=== PATIENT | female | born 1960 | race Caucasian/White ===

== ENCOUNTER 2017-12-20 13:32 | Emergency (ER) | payer MEDICARE, SELFPAY ==
[2017-12-20 13:33] VITALS: BP 162/87; PULSE 120; PULSE 121; RESP 18; RESP 19; TEMP 37.4; O2SAT 98; BMI 41.3
[2017-12-20 14:21] LABS: Absolute Lymphocyte Count 1.55 X10^3/ul (0.83-4.51); Absolute Neutrophil Count 13.1 X10^3/uL (2.0-7.7); Basophil# 0.01 X10^3/uL; Basophil% 0.1 % (0-1); Eosinophil# 0.13 X10^3/uL; Eosinophils% 0.8 % (0-5); Hematocrit 47.2 % (37-47); Hemoglobin 15.3 g/dl (12.0-15.0); Lymphocyte # 1.55 X10^3/ul (4.0); Lymphocyte % 10.1 % (19-41); Mean Corp Hgb Conc 32.4 g/gl (32-36); Mean Corpuscular Hgb 29.1 pg (27.0-32.0); Mean Corpuscular Volume 89.7 fL (81-99); Mean Platelet Vol. 10.3 fl (6.2-12.0); Monocyte# 0.65 X10^3/uL; Monocyte% 4.2 % (0-10); Neutrophil # 13.06 X10^3/uL (2.7-7.7); Neutrophil % 84.7 % (47-70); Platelet Count 196 K/mm3 (150-450); RBC Distribution Width CV 13.3 % (11.6-14.6); RBC Distribution Width SD 43.4 fl (35.1-43.9); Red Blood Count 5.26 M/mm3 (4.2-5.4); White Blood Count 15.4 K/mm3 (4.4-11.0)
[2017-12-20 14:22] LABS: POSITIVE COUNT NO; POSITIVE DIFFERENTIAL NO; POSITIVE MORPHOLOGY NO
[2017-12-20 14:40] LABS: ALB/GLOB Ratio 0.8 RATIO (0.9-2.4); AST(SGOT) 60 U/L (15-37); Alanine Aminotransfer ALT/SGPT 61 U/L (13-56); Albumin, Serum 3.7 g/dL (3.2-5.0); Alkaline Phosphatase 118 U/L (45-117); Anion Gap 8 (5-15); BUN 20 mg/dL (7-18); BUN/Creat Ratio 17.9 RATIO (10-20); Calcium,Total 8.8 mg/dL (8.5-10.1); Chloride 101 mmol/L (98-107); Creatinine, Serum 1.12 mg/dL (0.55-1.02); EST Glomerular Filtration Rate 53 mL/min (>60); Est Glom Filt Rate - Afr Amer 64 mL/min (>60); Estimated Creatinine Clearance 50.63 ml/min; Globulin 4.7 g/dL (2.2-4.2); Glucose 147 mg/dL (74-106); Lipase 90 U/L (73-393); Protein, Total 8.4 g/dL (6.4-8.2); Sodium Level 135 mmol/L (136-145)
[2017-12-20] MEDS: Ondansetron 4 MG/2 ML Vial IV (14:49)
[2017-12-20] MEDS: 0.9% Normal Saline 1,000 ML 1000 ML IV (14:49)
--- NOTE | 2017-12-20 15:05 | CT_ITS ---
STUDY: CT ABDOMEN AND PELVIS WITH CONTRAST REASON FOR EXAM: Female, 57 years old. Vomiting and diarrhea. Right flank pain. RADIATION DOSAGE (If Supplied By Facility): CTDIvol = ( 16.67 ) mGy, DLP = ( 1228.09 ) mGycm TECHNIQUE: Transaxial images were obtained from the dome of the diaphragm to the symphysis pubis without oral contrast. 100 ml of Isovue 300 contrast was administered. Sagittal and coronal images were reconstructed. Individualized dose optimization techniques were used for this CT. COMPARISON: December 17, 2014 FINDINGS: The visualized lung bases are unremarkable. The visualized portions of the heart are within normal limits. Normal liver. There are surgical clips in the gallbladder fossa consistent with a prior cholecystectomy. Normal spleen. Normal pancreas. Normal bilateral adrenal glands. 13 mm simple right renal cortical cyst. Normal left kidney. Normal visualized stomach. Normal small intestine. Normal colon. There is non-visualization of the appendix. Multiple prominent mesenteric lymph nodes which are nonspecific. Normal abdominal aorta. Normal inferior vena cava. Normal retroperitoneum. Normal urinary bladder. Uterus normal. There is a small umbilical hernia containing fat. Normal osseous structures. CT/Abdomen/Pelvis W IV Cont ONLY IMPRESSION: Possible mesenteric lymphadenitis. Appendix not visualized. No secondary signs identified. Electronically Signed: Doug Mott MD at 16:33 EDT , Service support ,
[2017-12-20] MEDS: Loperamide 2 MG Capsule 4 MG PO (15:30)
[2017-12-20 15:37] VITALS: BP 129/77; PULSE 109; RESP 16; O2SAT 95
[2017-12-20 15:42] LABS: Bacteria 0 SEEN /hpf (None Seen); Mucous, Urine 0 SEEN /hpf (<or=2+); Red Blood Cells-Urine 0 SEEN /hpf (0-5); Squamous Epithelial Cells - UA 0 SEEN /hpf (5-10)
[2017-12-20 15:47] LABS: Color, Urine Yellow (Yellow); Glucose, Dipstick Normal (Normal); Ketone-Dipstick Negative (Negative); Leukocyte Esterase-Dipstick Negative /ul (Negative); Nitrite-Dipstick Negative (Negative); Occult Blood-Urine Negative /ul (Negative); Protein-Dipstick Negative (Negative); Urine Bilirubin Dipstick Negative (Negative); Urine Clarity Clear (Clear); Urine Urobilinogen Normal (Normal)
--- NOTE | 2017-12-20 15:55 | ED.DCSUM_ITS ---
- ER Visit Summary Date of Service: 12/20/17 Chief Complaint: Nausea, vomiting, diarrhea History of Present Illness: The patient is a 57 F with RA, fibromyalgia, and IBS. She presents with nausea, vomiting, and diarrhea. Her symptoms started yesterday, when she was not feeling well, and then the nausea, vomiting, and diarrhea started today. He denies any sick contacts, travel, or recent antibiotics. She had a fever at home. Physical Examination: Blood pressure 162/87 and heart rate 121. Otherwise vitals unremarkable. Afebrile. She is alert and oriented. No acute distress, sitting comfortably. Skin appears normal without pallor or jaundice. Heart tachycardic but regular. Lungs clear. Abdomen soft, nontender, nondistended, normal bowel sounds. Back is nontender. Test Results: White count 15.4 and hemoglobin 15.3. BUN 20 and creatinine 1.12. Alk phos 118, ALT 61 and AST 60. Lipase normal. Urinalysis pending. Emergency Department Course and Treatment: Symptoms sound like a gastroenteritis. Her exam is unremarkable. She was treated with Zofran, fluids , and Imodium. Her labs came back showing a leukocytosis. She had no improvement after treatment. She was subsequently given a GI cocktail and a CT of her abdomen was performed. The oncoming physician will check the CT results. If the results are unremarkable and the patient is feeling better, she may be discharged with Zofran and Imodium. She should follow-up with her doctor for recheck of her laboratory studies including her liver and kidney function. If there are any issues, the oncoming physician will address. Treatment Plan: As above Disposition: Pending further evaluation Impression: 1. Nausea, vomiting, and diarrhea This note was generated with [employer] software. It may contain incorrect words, spelling, and punctuation that were not noted in review of the chart prior to signing ED Disposition - Plan for ED Patient: Chief Complaint: Nausea/Vomiting/Diarrhea Referrals: Uziel Alford MD [Primary Care Provider] -
[2017-12-20 15:59] LABS: White Blood Cells 0-5 SEEN /hpf (0-5)
--- NOTE | 2017-12-20 16:18 | ED.DEP ---
ED Disposition - Plan for ED Patient: Chief Complaint: Nausea/Vomiting/Diarrhea Instructions: ED Diet Vomiting Diarrhea Prescriptions: Loperamide [Imodium] 2 mg PO Q4H PRN PRN #20 cap PRN Reason: Diarrhea Ondansetron [Zofran Odt] 4 mg PO Q8H PRN PRN #10 tab PRN Reason: Nausea Referrals: Uziel Alford MD [Primary Care Provider] -
[2017-12-20] MEDS: Acetaminophen 325 MG Tablet 650 MG PO (17:03)
== END 2017-12-20 17:10 | disposition home or self-care (01) ==
LOC: ED 14:23
PROVIDERS: Emergency Provider Emergency Medicine; Family Provider Family Medicine; PCP Family Medicine
DX: R11.2 Nausea with vomiting, unspecified (principal); M79.7 Fibromyalgia; M06.9 Rheumatoid arthritis, unspecified; K58.0 Irritable bowel syndrome with diarrhea; M54.9 Dorsalgia, unspecified
CPT/HCPCS: 74177; 80053; 81001; 83690; 85025; 96361; 96374; 99284; J7030; Q9967; A4216; J2405

== ENCOUNTER 2018-02-22 14:00 | Outpatient (RCR) | payer MEDICARE, SELFPAY ==
--- NOTE | 2018-01-30 14:06 | HP.PTEVAL ---
Patient's Visit Information ZACKERY NUNEZ is a 57 year old F referred to Physical Therapy by Latia Carmona with a diagnosis of BACK AND LEG PAIN. Date of Evaluation: 01/30/18 Physical Therapist: Shagufta Bhandari - Visit Plan Frequency: 2-3x /Week Duration: 4-6 Weeks Plan: AQUATIC THERAPY FOR PAIN RELEIF, POSTURE CORRECTION/STRENGTHENING, INSTRUCTION IN APPROPRIATE BODY MECHANICS AND ACTIVITY MODIFICATIONS. DLS STARTING WITH A NEUTRAL SPINE PROGRESSING ROM TOLERATED. STEFANY LE ROM, STRETCHING AND STRENGTHENING. HEP INSTRUCTION. - Subjective Subjective: Work/Leisure: UNEMPLOYEED DUE TO DISABILITY. Disability: SINCE APPROX 2014 FOR RA AND FIBROMYALGIA. Present symptoms: PAIN IN THE LOW BACK, HIPS, THIGHS, LEGS AND FEET. SOME TINGLING IN FEET AND LEGS BUT MOSTLY PAIN. Present since: [facility] ABOUT 2008. Pain Scale: WORST - 8/10, LEAST - 5/10. Currently: /10. Commenced as a result of: RA AND FIBROMYALGIA. Symptoms at onset: LOW BACK. Worse: RUNNING THE SWEEPER, LOADING THE CRUSHER SCREEN REPAIRER, TRYING TO TAKE A SHOWER, STAIRS ARE THE WORST, TRYING TO WALK IN THE BACK YARD. Better: SOMETIMES SITTING, SOMETIMES LYING DOWN WITH HEAT OR ICE. SHOTS FROM DR. CARMONA. Disturbed sleep: NO. Previous history/Previous treatment: PAIN MGMT SHOTS, RADIOFREQUENCY ABLATION, PERCOCET, FLEXERIL, SLEEPING PILL. NO CHIROPRACTOR. NO SPINE SURGERY - NOT RECOMMENDED. PT HERE IN THE POOL WITH [facility] ABOUT YEAR AGO - HELPED BUT HAS NOT BEEN ABLE TO FOLLOW THROUGH BECAUSE SHE GETS SICK A LOT AND WHEN SHE DID COME ON HER OWN THE POOL WAS TOO CROWDED HERE. Coughing/sneezing/straining: POSTIVE. Gait: PATIENT REPORTS THAT SOMETIMES WHEN SHE IS TRYING TO WALK SHE FEELS LIKE THERE IS SOMETHING HOLDING HER BACK AND SHE HAS TO PUSH REALLY HARD TO MOVE HER LEGS. USES CANE OR WALKER NEEDED. Difficulty initiating urinatin: SOMETIMES - STATES DR. CARMONA IS AWARE. Accidents: NO. Unexplained weight loss: NO. Imaging: NONE RECENT. LOW BACK MRI AUGUST 2016 - [facility] - SEE [facility] EMR. PMH/Recent major surgery: RA AND FIBROMYALGIA. RIGHT TKR 2014. OTHER: PATIENT REPORTS SHE SAW DR. TREVIÑO BEFORE HE LEFT AND HE IS THE ONE THAT ORDERED AQUATIC THERAPY ABOUT A YEAR OR SO AGO. SHE THEN FOLLOWED UP WITH DR. MARQUEZ AND SHE DID NOT RECOMMEND SURGERY BASED ON THERE BEING TOO MUCH ARTHRITIS AND HAVING RA BECAUSE IT WOULD MAKE IT WORSE - PER PATIENT REPORT. SHE REPORTS HER AND HER HAVE TALKED A LOT ABOUT GETTING ANOTHER OPINION ON SURGERY BECAUSE HER PAIN IS UNBEARABLE AT TIMES. SHE REPORTS DR. CARMONA ORDERED AQUATIC THERAPY AGAIN AND SHE WILL FOLLOW UP WITH HIM FEB 13. SHE REPORTS SHE CANCELLED PT LAST VISIT DUE TO WANTING TO DISCUSS FINANCES (HIGH CO-PA[employer]) WITH [employer]. NOW HAS DECIDED TO TRY A FEW VISITS BECAUSE SHE HAS GOTTEN WORSE SINCE HERE LAST. OTHER: PATIENT REPORTS HER HANDS AND HER FEET SWELL A LOT AND HAVE FOR A LONG TIME. SHE HAS COMPRESSION GLOVES AND STOCKINGS. - Objective Sitting/Standing Posture: POOR. Lordosis: NORMAL TO DECREASED. Lateral shift: NO. Relevant shift: N/A. Active Correction of posture: WORSE. Other Observations: INDEP GAIT INTO PT WITH A SLOW WADDLE TYPE GAIT PATTERN THAT APPEARS ANTALGIC. NO USING ANY ASSISTIVE DEVICES. UNABLE TO TRANSFER SIT TO STAND WITHOUT UE ASSIST AND IT IS PAINFUL TO ATTEMPT. NO LOB WITH GAIT. NO HISTORY OF FALLS. VERY SHORT STEFANY STRIDE LENGTH. DECREASED PROPER POSTURE AND REFRIGERATION SYSTEMS INSTALLER AWARENESS. Motor deficit: STEFANY HIPS 3+/5, KNEE EXT 4-/5, KNEE FLEX 4-/5, ANKLES 5/5. Sensory deficit: STEFANY LE LIGHT TOUCH SENSATION APPEARS TO BE INTACT AND SYMMETRICAL. ROM deficit: TIGHT STEFANY HIP FLEXORS, HS'S AND GASTROC SOLEUS COMPLEX'S. Dural Signs: POSITIVE STEFANY LE'S. Lumbar mvmt loss: flex - ROSE IN STANDING. MOD IN SITTING. ext - ROSE. R SG - MOD TO ROSE. L SG - MOD TO ROSE. PAIN WITH LUMBAR ROM TESTING ALL PLANES. Core strength: POOR. Palpation: TENDERNESS WITH PALPATION OF STEFANY LOW BACK AND HIP MUSCULATURE BUT NO ACUTE SPINE TENDERNESS. - Goals Goal 1:: DECREASE C/O BACK AND STEFANY LE SX'S. Goal Time Frame: 4-6 Weeks Goal 2:: IMPROVE PERSONAL CARE, LIFTING, WALKING, SITTING, STANDING, SOCIAL LIFE, TRAVEL AND HOMEMAKING FUNCTION. Goal Time Frame: 4-6 Weeks Goal 3:: INSTRUCT IN PROPHYLAXIS Goal Time Frame: 4-6 Weeks - Rehabilitation Potential Rehabilitation Potential: Fair - Anticipated Interventions Patient/Client Instruction: Educate patient on: Condition, Plan of Care, Risk Factors, Benefits of Fitness Program For the Purpose of:: To improve self management Therapeutic Exercise to Include: Strength training, Body mechanics, Postural training, Flexibilty training, Gait and locomotor training, In an aquatic setting, Active ROM, Dynamic Lumbar Stabilization For the Purpose of:: To decrease pain, To increase ROM, To improve muscle performance and motor function, To increase tolerance to activity/condition/position, To improve ability of physical actions for home/community/work/leisure, To improve gait and locomotor functions Thank you for the opportunity to evaluate your patient. For Medicare and Medicare HMO plans, please review the plan of care and approve it. It will need to be FAXED BACK to us at [phone] for Medicare purposes. Please let me know if there are questions or concerns regarding this plan of care. Physician Signature: Date:
--- NOTE | 2018-03-22 12:59 | HP.PTDCNRP_ITS ---
HP - Discharge Summary (1) - Patient Information ZACKERY NUNEZ was seen in my office for initial evaluation on 01/30/18. The following Plan of Care was established for this patient: Initial Frequency: 2-3x /Week Initial Duration: 4-6 Weeks - Anticipated Interventions Patient/Client Instruction: Educate patient on: Condition, Plan of Care, Risk Factors, Benefits of Fitness Program For the Purpose of:: To improve self management Therapeutic Exercise to Include: Strength training, Body mechanics, Postural training, Flexibilty training, Gait and locomotor training, In an aquatic setti ng, Active ROM, Dynamic Lumbar Stabilization For the Purpose of:: To decrease pain, To increase ROM, To improve muscle performance and motor function, To increase tolerance to activity/condition/position, To improve ability of physical actions for home/community/work/leisure, To improve gait and locomotor functions This patient was last seen in our office 02/22/18. Pertinent comments regarding their Physical therapy will appear below: This patient has not returned to Physical Therapy and is appropriate to return to MD for further follow-up as needed. At this point I will be discontinuing this patient from physical therapy. I would be happy to see this patient again in the future if found appropriate by the physician. Thank you! Shagufta Bhandari
== END 2018-02-22 19:00 | disposition home or self-care (01) ==
LOC: PT 14:00
PROVIDERS: Family Provider Family Medicine; PCP Family Medicine; Visit Provider Anesthesiology Pain Medicine
DX: M54.9 Dorsalgia, unspecified (principal); M79.606 Pain in leg, unspecified
CPT/HCPCS: 97113; 97162; 97530

== ENCOUNTER → 2018-05-28 11:24 | Outpatient (CLI) | payer MEDICARE, SELFPAY ==
[2018-05-28 17:33] LABS: Absolute Lymphocyte Count 3.38 X10^3/ul (0.83-4.51); Absolute Neutrophil Count 7.3 X10^3/uL (2.0-7.7); Basophil# 0.04 X10^3/uL; Basophil% 0.3 % (0-1); Eosinophil# 0.32 X10^3/uL; Eosinophils% 2.7 % (0-5); Hemoglobin 13.8 g/dl (12.0-15.0); Lymphocyte # 3.38 X10^3/ul (4.0); Lymphocyte % 28.8 % (19-41); Mean Corp Hgb Conc 31.4 g/gl (32-36); Mean Corpuscular Hgb 28.6 pg (27.0-32.0); Mean Corpuscular Volume 91.3 fL (81-99); Mean Platelet Vol. 11.5 fl (6.2-12.0); Monocyte# 0.71 X10^3/uL; Neutrophil # 7.26 X10^3/uL (2.7-7.7); Neutrophil % 61.9 % (47-70); POSITIVE COUNT NO; POSITIVE DIFFERENTIAL NO; POSITIVE MORPHOLOGY NO; Platelet Count 249 K/mm3 (150-450); RBC Distribution Width CV 13.9 % (11.6-14.6); RBC Distribution Width SD 45.8 fl (35.1-43.9); Red Blood Count 4.82 M/mm3 (4.2-5.4); White Blood Count 11.8 K/mm3 (4.4-11.0)
[2018-05-28 17:40] LABS: Erythrocyte Sedimentation Rate 41 mm/hr (0-30)
[2018-05-28 17:50] LABS: Vitamin D,25 Hydroxy 26.9 ng/mL (29.95-100.01)
[2018-05-28 18:01] LABS: ALB/GLOB Ratio 0.8 RATIO (0.9-2.4); AST(SGOT) 24 U/L (15-37); Alanine Aminotransfer ALT/SGPT 33 U/L (13-56); Albumin, Serum 3.5 g/dL (3.2-5.0); Alkaline Phosphatase 126 U/L (45-117); Anion Gap 13 (5-15); BUN 13 mg/dL (7-18); BUN/Creat Ratio 13.6 RATIO (10-20); Calcium,Total 8.9 mg/dL (8.5-10.1); Chloride 102 mmol/L (98-107); Creatinine, Serum 0.95 mg/dL (0.55-1.02); EST Glomerular Filtration Rate 64 mL/min (>60); Est Glom Filt Rate - Afr Amer 77 mL/min (>60); Globulin 4.4 g/dL (2.2-4.2); Glucose 91 mg/dL (74-106); Protein, Total 7.9 g/dL (6.4-8.2); Rheumatoid Factor < 10.0 IU/mL (<15); Sodium Level 139 mmol/L (136-145); T4 Free Direct 1.07 ng/dL (0.76-1.46); Thyroid Stim Hormone (TSH) 1.86 uIU/mL (0.358-3.74)
[2018-05-30 14:20] LABS: ANTINUCLEAR ANTIBODIES DIRECT Negative (Negative)
[2018-06-01 11:46] LABS: CCP IgG Antibodies 6 units (0-19)
--- OUTSIDE RECORDS SUMMARY | 2018-07-21 17:35 | XMS RPT_ITS ---
:1960 Author Organization OHIP Care Team Providers Name Role Phone Latia Carmona Attending Unavailable Uziel Alford Primary Care Unavailable Uziel Alford Primary Care Unavailable Carlo Quigley Attending Unavailable Latia Carmona Attending Unavailable Latia Carmona Referring Unavailable Uziel Alford Primary Care Unavailable Uziel Alford Attending Unavailable Uziel Alford Primary Care Unavailable PROBLEMS PROBLEMS DATE TYPE CONDITION / CODE ATTENDING STATUS SOURCE 05/28/2018 Unknown M06.9 - Rheumatoid Uziel Alford Active [facility] arthritis, [facility] unspecified / Hospital M06.9(ICD-10) Repository 05/28/2018 Unknown M79.7 - Uziel Alford Active [facility] Fibromyalgia / Community M79.7(ICD-10) Hospital Repository 05/28/2018 Unknown M25.40 - Effusion, Uziel Alford Active [facility] unspecified joint / Community M25.40(ICD-10) Hospital Repository 03/22/2018 Unknown M54.9 - Dorsalgia, Basali, Ayman Active [place] unspecified / Community M54.9(ICD-10) Hospital Repository 06/20/2017 Unknown F11.20 - Opioid Basali, Ayman Active [facility] dependence, Community uncomplicated / Hospital F11.20(ICD-10) Repository PROCEDURES PROCEDURES No Procedure Records FoundRESULTS RESULTS CBC W/DIFF, AUTOMATED Collected: 05/28/2018 Status: F Source: [place] 11:26 AM [facility] REPOSITORY TYPE CODE TESTS RESULT OUT OF RANGE REFERENCE UNITS LAB L100.1000 4.4-11.0 K/mm3 High WBC 11.8 LAB L100.1200 4.2-5.4 M/mm3 Normal RBC 4.82 LAB L100.1300 12.0-15.0 g/dl Normal HGB 13.8 LAB L100.1400 37-47 % Normal HCT 44.0 LAB L100.1500 81-99 fL Normal MCV 91.3 LAB L100.1600 27.0-32.0 pg Normal MCH 28.6 LAB L100.1700 32-36 g/gl Low MCHC 31.4 LAB L100.1810 11.6-14.6 % Normal RDW CV 13.9 LAB L100.1820 35.1-43.9 fl High RDW SD 45.8 LAB L100.1900 150-450 K/mm3 Normal PLT 249 LAB L100.2000 6.2-12.0 fl Normal MPV 11.5 LAB L100.2100 47-70 % Normal NEUT% 61.9 LAB L100.2200 19-41 % Normal LY% 28.8 LAB L100.2300 0-10 % Normal MONO% 6.0 LAB L100.2400 0-5 % Normal EO% 2.7 LAB L100.2500 0-1 % Normal BASO% 0.3 LAB L100.2550 0.0-0.9 % Normal IM GRAN % 0.300 Result Comment: IG% - Immature Granulocytes (promyelocytes, myelocytes and metamyelocytes) > 1% indicates that a LEFT SHIFT is Present. LAB L100.2620 2.0-7.7 X10 3/uL Normal Absolute Neut 7.3 LAB L100.2720 0.83-4.51 X10 3/ul Normal Absolute Lymph 3.38 Performed By: #### L100.0100, L101.9900 #### [facility] [address] [place], [address] ERYTHROCYTE SED RATE Collected: 05/28/2018 Status: F Source: [place] 11:26 AM [facility] REPOSITORY TYPE CODE TESTS RESULT OUT OF RANGE REFERENCE UNITS LAB L102.0000 0-30 mm/hr High SED RATE 41 Performed By: #### L100.0100, L101.9900 #### [facility] [address] [place], [address] VITAMIN D,25 HYDROXY Collected: 05/28/2018 Status: F Source: [place] 11:26 AM [facility] REPOSITORY TYPE CODE TESTS RESULT OUT OF REFERENCE UNITS RANGE LAB L506.1000 29.95-100.01 ng/mL Low Vitamin D 26.9 25-OH Result Comment: Vitamin D 25(OH) Status Range Deficiency <20 ng/mL (50nmol/L) Insuffciency 20 - 30 ng/mL (50 - 75 nmol/L) Sufficiency 30 - 100 ng/mL (75 - 250 nmol/L) Toxicity >100 ng/mL (>250 nmol/L) Performed By: #### L506.1000 #### [facility] [address] [facility] [place], [address] COMPREHENSIVE METABOLIC Collected: 05/28/2018 Status: F Source: [facility] 11:26 AM [facility] REPOSITORY TYPE CODE TESTS RESULT OUT OF RANGE REFERENCE UNITS LAB L501.0100 74-106 mg/dL Normal GLU 91 Result Comment: Please note revised GLUCOSE reference range effective 2017. LAB L501.1000 7-18 mg/dL Normal BUN 13 LAB L501.1100 0.55-1.02 mg/dL Normal CREAT,SERUM 0.95 Result Comment: The validity of the calculated GFR AND GFRAA in patients over 70 years has not been determined. Clinical correlation is essential. LAB L501.1110 >60 mL/min Normal EST GFR 64 Result Comment: Non- GFR Calc LAB L501.1115 >60 mL/min Normal EST GFR - AA 77 Result Comment: GFR Calc LAB L501.1300 10-20 RATIO Normal BUN/CRE 13.6 LAB L501.1500 6.4-8.2 g/dL T Normal PROT 7.9 LAB L501.1800 3.2-5.0 g/dL Normal ALB 3.5 LAB L501.1950 2.2-4.2 g/dL High GLOB 4.4 LAB L501.2000 0.9-2.4 RATIO Low A/G 0.8 LAB L501.2200 8.5-10.1 mg/dL CA Normal 8.9 LAB L501.4100 15-37 U/L Normal AST 24 LAB L501.4305 45-117 U/L High ALK P 126 LAB L501.4405 13-56 U/L Normal ALT 33 LAB L501.4600 0.20-1.00 mg/dL T Normal BILI 0.40 LAB L501.5300 136-145 mmol/L NA Normal 139 LAB L501.5600 3.5-5.1 mmol/L K Normal 4.0 LAB L501.5900 98-107 mmol/L CL Normal 102 LAB L501.6100 21.0-32.0 mmol/L Normal CO2 24.0 LAB L501.6200 5-15 Normal GAP 13 Performed By: #### L500.4050, L501.6710, L501.9520, L505.7010, L506.0400 #### [facility] [address] [facility]. [place], [place], [id number] CRP Collected: 05/28/2018 Status: F Source: [place] 11:26 AM [facility] REPOSITORY TYPE CODE TESTS RESULT OUT OF RANGE REFERENCE UNITS LAB L501.6710 0.0-3.0 mg/L High 27.20 C-REACTIVE PROT Result Comment: C-Reactive Protein (CRP) provides useful information for the diagnosis, therapy and monitoring of inflammatory processes and associated diseases. For the evaluation of Relative Risk for Cardiovascular Disease, a High Sensitivity CRP (HSCRP) should be ordered. Performed By: #### L500.4050, L501.6710, L501.9520, L505.7010, L506.0400 #### [facility] [address] [facility]. [place], [place], [id number] THYROID STIM HORMONE Collected: 05/28/2018 Status: F Source: [place] ([facility]) 11:26 AM [facility] REPOSITORY TYPE CODE TESTS RESULT OUT OF RANGE REFERENCE UNITS LAB L501.9520 0.358-3.74 uIU/mL Normal TSH 1.86 Performed By: #### L500.4050, L501.6710, L501.9520, L505.7010, L506.0400 #### [facility] [address] [place], [address] RHEUMATOID FACTOR Collected: 05/28/2018 Status: F Source: [place] 11:26 AM [facility] REPOSITORY TYPE CODE TESTS RESULT OUT OF RANGE REFERENCE UNITS LAB L505.7010 <15 IU/mL Normal RHEUMATOID FAC < 10.0 Performed By: #### L500.4050, L501.6710, L501.9520, L505.7010, L506.0400 #### [facility] [address] [place], [address] T4 FREE DIRECT Collected: 05/28/2018 Status: F Source: [place] 11:26 AM [facility] REPOSITORY TYPE CODE TESTS RESULT OUT OF RANGE REFERENCE UNITS LAB L506.0400 0.76-1.46 ng/dL Normal T4 FREE 1.07 DIRECT Performed By: #### L500.4050, L501.6710, L501.9520, L505.7010, L506.0400 #### [facility] [address] [place], [place], [address] LUCIO W/ REFLEX MULT Collected: 05/28/2018 Status: F [facility]: [facility] 11:26 AM [facility] REPOSITORY TYPE CODE TESTS RESULT OUT OF RANGE REFERENCE UNITS LAB L3100.5475 Negative Normal Negative LUCIO-DIRECT Result Comment: Performed at: [facility] [address] [id number] Staff Development Nurse: Mick Sue PhD, Phone: [phone] Performed By: #### L3100.5450 #### [facility] (refer to report for specific site) refer to report for address and phone number CCP IGG ANTIBODIES Collected: 05/28/2018 Status: F Source: [place] 11:26 AM [facility] REPOSITORY TYPE CODE TESTS RESULT OUT OF RANGE REFERENCE UNITS LAB L4600.0100 0-19 units Normal ANTI-CCP 6 [id number] Result Comment: Negative <20 Weak positive 20 - 39 Moderate positive 40 - 59 Strong positive >59 Performed at: [facility] [address] [id number] Staff Development Nurse: Mika Viveros MD, Phone: [phone] Performed By: #### L4600.0100 #### [facility] (refer to report for specific site) refer to report for address and phone number INITAL EVALUATION (1) Observed: 01/30/2018 Status: F Source: [facility] - PT 2:13 PM [facility] REPOSITORY [facility] Physical Therapy [facility] [address] [place] [address] Fax REHABILITATION SERVICES INITIAL EVALUATION MR#: [id number] Acct: [id number] Name: ZACKERY NUNEZ Rep #: [id number] : 1960 57 From: Shagufta Bhandari PT, Cert. MDT Referring Dr.: Latia Carmona MD Status: REG RCR Insurance: [facility] MEDICARE SELF PAY INSURANCE Patient's Visit Information ZACKERY NUNEZ is a 57 year old F referred to Physical Therapy by Latia Carmona with a diagnosis of BACK AND LEG PAIN. Date of Evaluation: 01/30/18 Physical Therapist: Shagufta Bhandari - Visit Plan Frequency: 2-3x /Week Duration: 4-6 Weeks Plan: AQUATIC THERAPY FOR PAIN RELEIF, POSTURE CORRECTION/STRENGTHENING, INSTRUCTION IN APPROPRIATE BODY MECHANICS AND ACTIVITY MODIFICATIONS. DLS STARTING WITH A NEUTRAL SPINE PROGRESSING ROM TOLERATED. STEFANY LE ROM, STRETCHING AND STRENGTHENING. HEP INSTRUCTION. - Subjective Subjective: Work/Leisure: UNEMPLOYEED DUE TO DISABILITY. Disability: SINCE APPROX 2014 FOR RA AND FIBROMYALGIA. Present symptoms: PAIN IN THE LOW BACK, HIPS, THIGHS, LEGS AND FEET. SOME TINGLING IN FEET AND LEGS BUT MOSTLY PAIN. Present since: [facility] ABOUT 2008. Pain Scale: WORST - 8/10, LEAST - 5/10. Currently: 5/10. Commenced as a result of: RA AND FIBROMYALGIA. Symptoms at onset: LOW BACK. 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 Better: SOMETIMES SITTING, SOMETIMES LYING DOWN WITH HEAT OR ICE. SHOTS FROM DR. CARMONA. Disturbed sleep: NO. Previous history/Previous treatment: PAIN MGMT SHOTS, RADIOFREQUENCY ABLATION, PERCOCET, FLEXERIL, SLEEPING PILL. NO CHIROPRACTOR. NO SPINE SURGERY - NOT RECOMMENDED. PT HERE IN THE POOL WITH [facility] ABOUT YEAR AGO - HELPED BUT HAS NOT BEEN ABLE TO FOLLOW THROUGH BECAUSE SHE GETS SICK A LOT AND WHEN SHE DID COME ON HER OWN THE POOL WAS TOO CROWDED HERE. Coughing/sneezing/straining: POSTIVE. Gait: PATIENT REPORTS THAT SOMETIMES WHEN SHE IS TRYING TO WALK SHE FEELS LIKE THERE IS SOMETHING HOLDING HER BACK AND SHE HAS TO PUSH REALLY HARD TO MOVE HER LEGS. USES CANE OR WALKER NEEDED. Difficulty initiating urinatin: SOMETIMES - STATES DR. CARMONA IS AWARE. Accidents: NO. Unexplained weight loss: NO. Imaging: NONE RECENT. LOW BACK MRI AUGUST 2016 - [facility] - SEE [facility] EMR. PMH/Recent major surgery: RA AND FIBROMYALGIA. RIGHT TKR 2014. OTHER: PATIENT REPORTS SHE SAW DR. TREVIÑO BEFORE HE LEFT AND HE IS THE ONE THAT ORDERED AQUATIC THERAPY ABOUT A YEAR OR SO AGO. SHE THEN FOLLOWED UP WITH DR. MARQUEZ AND SHE DID NOT RECOMMEND SURGERY BASED ON THERE BEING TOO MUCH ARTHRITIS AND HAVING RA BECAUSE IT WOULD MAKE IT WORSE - PER PATIENT REPORT. SHE REPORTS HER AND HER HAVE TALKED A LOT ABOUT GETTING ANOTHER OPINION ON SURGERY BECAUSE HER PAIN IS UNBEARABLE AT TIMES. SHE REPORTS DR. CARMONA ORDERED AQUATIC THERAPY AGAIN AND SHE WILL FOLLOW UP WITH HIM FEB 13. SHE REPORTS SHE CANCELLED PT LAST VISIT DUE TO WANTING TO DISCUSS FINANCES (HIGH CO-PAY) WITH [employer]. NOW HAS DECIDED TO TRY A FEW VISITS BECAUSE SHE HAS GOTTEN WORSE SINCE HERE LAST. OTHER: PATIENT REPORTS HER HANDS AND HER FEET SWELL A LOT AND HAVE FOR A LONG TIME. SHE HAS COMPRESSION GLOVES AND STOCKINGS. - Objective Sitting/Standing Posture: POOR. Lordosis: NORMAL TO DECREASED. Lateral shift: NO. Relevant shift: N/A. Active Correction of posture: WORSE. Other Observations: INDEP GAIT INTO PT WITH A SLOW WADDLE TYPE GAIT PATTERN THAT APPEARS ANTALGIC. NO USING ANY ASSISTIVE DEVICES. UNABLE TO TRANSFER SIT TO STAND WITHOUT UE ASSIST AND IT IS PAINFUL TO ATTEMPT. NO LOB WITH GAIT. NO HISTORY OF FALLS. VERY SHORT STEFANY STRIDE LENGTH. DECREASED PROPER POSTURE AND CROSS COUNTRY COACH AWARENESS. Motor deficit: STEFANY HIPS 3+/5, KNEE EXT 4-/5, KNEE FLEX 4-/5, ANKLES 5/5. Sensory deficit: STEFANY LE LIGHT TOUCH SENSATION APPEARS TO BE INTACT AND SYMMETRICAL. ROM deficit: TIGHT STEFANY HIP FLEXORS, HS'S AND GASTROC SOLEUS COMPLEX'S. Dural Signs: POSITIVE STEFANY LE'S. Lumbar mvmt loss: flex - ROSE IN STANDING. MOD IN SITTING. ext - ROSE. R SG - MOD TO ROSE. L SG - MOD TO ROSE. PAIN WITH LUMBAR ROM TESTING ALL PLANES. Core strength: POOR. Palpation: TENDERNESS WITH PALPATION OF STEFANY LOW BACK AND HIP MUSCULATURE BUT NO ACUTE SPINE TENDERNESS. - Goals Goal 1:: DECREASE C/O BACK AND STEFANY LE SX'S. Goal Time Frame: 4-6 Weeks Goal 2:: IMPROVE PERSONAL CARE, LIFTING, WALKING, SITTING, STANDING, SOCIAL LIFE, TRAVEL AND HOMEMAKING FUNCTION. Goal Time Frame: 4-6 Weeks Goal 3:: INSTRUCT IN PROPHYLAXIS Goal Time Frame: 4-6 Weeks - Rehabilitation Potential Rehabilitation Potential: Fair - Anticipated Interventions Patient/Client Instruction: Educate patient on: Condition, Plan of Care, Risk Factors, Benefits of Fitness Program For the Purpose of:: To improve self management Therapeutic Exercise to Include: Strength training, Body mechanics, Postural training, Flexibilty training, Gait and locomotor training, In an aquatic setting, Active ROM, Dynamic Lumbar Stabilization For the Purpose of:: To decrease pain, To increase ROM, To improve muscle performance and motor function, To increase tolerance to activity/condition/position, To improve ability of physical actions for home/community/work/leisure, To improve gait and locomotor functions Thank you for the opportunity to evaluate your patient. For Medicare and Medicare HMO plans, please review the plan of care and approve it. It will need to be FAXED BACK to us at [phone] for Medicare purposes. Please let me know if there are questions or concerns regarding this plan of care. Physician Signature: Date: <Electronically signed by Shagufta Bhandari PT, Cert. MDT> 01/30/18 1413 CC: Latia Carmona MD; Uziel Alford MD STEVE Signed For Medicare only, by signing this I certify the plan of care. Physicians Signature Date EMERGENCY DEPARTMENT Observed: 12/20/2017 Status: F Source: [place] SUMMARY 4:29 PM [facility] REPOSITORY [facility] Medical Records Department [address] [place] [address] Emergency Department Summary 12/20/17 1553 MR#: [id number] Acct: [id number] Name: ZACKERY NUNEZ Rep #: [id number] : 1960 57 From: Carlo Quigley MD PCP: Uziel Alford MD Status: REG ER - ER Visit Summary Date of Service: 12/20/17 Chief Complaint: Nausea, vomiting, diarrhea History of Present Illness: The patient is a 57 F with RA, fibromyalgia, and IBS. She presents with nausea, vomiting, and diarrhea. Her symptoms started yesterday, when she was not feeling well, and then the nausea, vomiting, and diarrhea started today. He denies any sick contacts, travel, or recent antibiotics. She had a fever at home. Physical Examination: Blood pressure 162/87 and heart rate 121. Otherwise vitals unremarkable. Afebrile. She is alert and oriented. No acute distress, sitting comfortably. Skin appears normal without pallor or jaundice. Heart tachycardic but regular. Lungs clear. Abdomen soft, nontender, nondistended, normal bowel sounds. Back is nontender. Test Results: White count 15.4 and hemoglobin 15.3. BUN 20 and creatinine 1.12. Alk phos 118, ALT 61 and AST 60. Lipase normal. Urinalysis pending. Emergency Department Course and Treatment: Symptoms sound like a gastroenteritis. Her exam is unremarkable. She was treated with Zofran, fluids, and Imodium. Her labs came back showing a leukocytosis. She had no improvement after treatment. She was subsequently given a GI cocktail and a CT of her abdomen was performed. The oncoming physician will check the CT results. If the results are unremarkable and the patient is feeling better, she may be discharged with Zofran and Imodium. She should follow-up with her doctor for recheck of her laboratory studies including her liver and kidney function. If there are any issues, the oncoming physician will address. Treatment Plan: As above Disposition: Pending further evaluation Impression: 1. Nausea, vomiting, and diarrhea This note was generated with DS [employer]it[employer] Seitenation software. It may contain incorrect words, spelling, and punctuation that were not noted in review of the chart prior to signing ED Disposition - Plan for ED Patient: Chief Complaint: Nausea/Vomiting/Diarrhea Referrals: Uziel Alford MD [Primary Care Provider] - What to do if you have Problems For any increased pain, shortness of breath, bleeding, nausea or vomiting, chest pain, or any unexpected problems, contact your Primary Care Provider. Call [facility] ([phone]) or report to the closest Emergency Room. Call 911 if necessary. 12/20/17 1629 <Electronically signed by Carlo Quigley MD> Date Carlo Quigley MD Cosigner Signature (If Indicated): Date CC: Uziel Alford MD DISCHARGE INSTRUCTION Observed: 12/20/2017 Status: F Source: [place] 4:29 PM [facility] Medical Records Department [address] [place] [address] Discharge Instruction 12/20/17 1618 MR#: [id number] Acct: [id number] Name: ZACKERY NUNEZ Rep #: [id number] : 1960 57 From: Carlo Quigley MD PCP: Uziel Alford MD Status: REG ER ED Disposition - Plan for ED Patient: Chief Complaint: Nausea/Vomiting/Diarrhea Instructions: ED Diet Vomiting Diarrhea Prescriptions: Loperamide [Imodium] 2 mg PO Q4H PRN PRN #20 cap PRN Reason: Diarrhea Ondansetron [Zofran Odt] 4 mg PO Q8H PRN PRN #10 tab PRN Reason: Nausea Referrals: Uziel Alford MD [Primary Care Provider] - What to do if you have Problems For any increased pain, shortness of breath, bleeding, nausea or vomiting, chest pain, or any unexpected problems, contact your Primary Care Provider. Call [facility] ([phone]) or report to the closest Emergency Room. Call 911 if necessary. 12/20/17 5939 <Electronically signed by Carlo Quigley MD> Date Carlo Quigley MD Cosigner Signature (If Indicated): Date CC: Uziel Alford MD URINALYSIS, COMPLETE Collected: 12/20/2017 Status: F Source: [facility] 3:30 PM [facility] REPOSITORY Order Comment: Order Date: 12/20/17 How was Urine Obtained? CLEAN CATCH TYPE CODE TESTS RESULT OUT OF RANGE REFERENCE UNITS LAB L400.3000 Yellow COLOR Normal Yellow LAB L400.3050 Clear Normal CLARITY Clear LAB L400.3200 Normal mg/dl Normal GLUCOSE, UR Normal LAB L400.3300 Negative mg/dL Normal BILIRUBIN URINE Negative LAB L400.3400 Negative mg/dl Normal KETONE UR Negative LAB L400.3465 1.002-1.030 Normal SP.GR. DIPSTX 1.010 LAB L400.3550 5.0 - 8.0 pH UR Normal 8.0 LAB L400.3600 Negative mg/dl PROT Normal DIPSTX Negative LAB L400.3700 Normal mg/dl Normal UROBILI Normal LAB L400.3750 Negative Normal NITRITE UR Negative LAB L400.3780 Negative /ul Normal OCCULT BLOOD-UR Negative LAB L400.3800 Negative /ul LEUK Normal ESTERASE Negative LAB L400.4050 0-5 /hpf WBC Normal 0-5 SEEN LAB L400.4100 0-5 /hpf 0 Normal RBC-UA SEEN LAB L400.4150 5-10 /hpf SQUAM 0 Normal EPI SEEN LAB L400.4300 None Seen /hpf 0 Normal BACTERIA SEEN LAB L400.4350 <or=2+ /hpf 0 Normal MUCUS, URINE SEEN Performed By: #### L400.0001 #### [facility] [address] [place], [address] ABDOMEN/PELVIS W IV CONT Observed: 12/20/2017 Status: F Source: [place] ONLY 3:06 PM [facility] REPOSITORY [facility] Imaging Services [address] [place] [address] Abdomen/Pelvis W IV Cont ONLY MR#: [id number] Acct: [id number] Name: ZACKERY NUNEZ Rep #: [id number] : 1960 F 57 From: Doug Mott MD PCP: Uziel Alford MD Status: REG ER Study: Abdomen/Pelvis W IV Cont ONLY Date of Exam: 12/20/17 Exam# [id number] Ordering Dr: Carlo Quigley MD STUDY: CT ABDOMEN AND PELVIS WITH CONTRAST REASON FOR EXAM: Female, 57 years old. Vomiting and diarrhea. Right flank pain. RADIATION DOSAGE (If Supplied By Facility): CTDIvol = ( 16.67 ) mGy, DLP = ( 1228.09 ) mGycm TECHNIQUE: Transaxial images were obtained from the dome of the diaphragm to the symphysis pubis without oral contrast. 100 ml of Isovue 300 contrast was administered. Sagittal and coronal images were reconstructed. Individualized dose optimization techniques were used for this CT. COMPARISON: December 17, 2014 FINDINGS: The visualized lung bases are unremarkable. The visualized portions of the heart are within normal limits. Normal liver. There are surgical clips in the gallbladder fossa consistent with a prior cholecystectomy. Normal spleen. Normal pancreas. Normal bilateral adrenal glands. 13 mm simple right renal cortical cyst. Normal left kidney. Normal visualized stomach. Normal small intestine. Normal colon. There is non-visualization of the appendix. Multiple prominent mesenteric lymph nodes which are nonspecific. Normal abdominal aorta. Normal inferior vena cava. Normal retroperitoneum. Normal urinary bladder. Uterus normal. There is a small umbilical hernia containing fat. Normal osseous structures. CT/Abdomen/Pelvis W IV Cont ONLY IMPRESSION: Possible mesenteric lymphadenitis. Appendix not visualized. No secondary signs identified. Electronically Signed: Doug Mott MD at 16:33 EDT , Service support , CC: Carlo Quigley MD; Uziel Alford MD Hooker Inspector: Signed CBC W/DIFF, AUTOMATED Collected: 12/20/2017 Status: F Source: [facility] 2:13 PM [facility] REPOSITORY TYPE CODE TESTS RESULT OUT OF RANGE REFERENCE UNITS LAB L100.1000 4.4-11.0 K/mm3 High WBC 15.4 LAB L100.1200 4.2-5.4 M/mm3 Normal RBC 5.26 LAB L100.1300 12.0-15.0 g/dl High HGB 15.3 LAB L100.1400 37-47 % High HCT 47.2 LAB L100.1500 81-99 fL Normal MCV 89.7 LAB L100.1600 27.0-32.0 pg Normal MCH 29.1 LAB L100.1700 32-36 g/gl Normal MCHC 32.4 LAB L100.1810 11.6-14.6 % Normal RDW CV 13.3 LAB L100.1820 35.1-43.9 fl Normal RDW SD 43.4 LAB L100.1900 150-450 K/mm3 Normal PLT 196 LAB L100.2000 6.2-12.0 fl Normal MPV 10.3 LAB L100.2100 47-70 % High NEUT% 84.7 LAB L100.2200 19-41 % Low LY% 10.1 LAB L100.2300 0-10 % Normal MONO% 4.2 LAB L100.2400 0-5 % Normal EO% 0.8 LAB L100.2500 0-1 % Normal BASO% 0.1 LAB L100.2550 0.0-0.9 % Normal IM GRAN % 0.100 Result Comment: IG% - Immature Granulocytes (promyelocytes, myelocytes and metamyelocytes) > 1% indicates that a LEFT SHIFT is Present. LAB L100.2620 2.0-7.7 X10 3/uL High Absolute Neut 13.1 LAB L100.2720 0.83-4.51 X10 3/ul Normal Absolute Lymph 1.55 Performed By: #### L100.0100 #### [facility] [address] [place], [address] COMPREHENSIVE METABOLIC Collected: 12/20/2017 Status: F Source: [facility] 2:13 PM [facility] REPOSITORY TYPE CODE TESTS RESULT OUT OF RANGE REFERENCE UNITS LAB L501.0100 74-106 mg/dL High GLU 147 Result Comment: Fasting Glucose result greater than or equal to 126 mg/dL suggests DIABETES MELLITUS per A.D.A. criteria. Please note revised GLUCOSE reference range effective 2017. LAB L501.1000 7-18 mg/dL High BUN 20 LAB L501.1100 0.55-1.02 mg/dL High CREAT,SERUM 1.12 Result Comment: The validity of the calculated GFR AND GFRAA in patients over 70 years has not been determined. Clinical correlation is essential. LAB L501.1110 >60 mL/min Low EST GFR 53 Result Comment: Non- GFR Calc LAB L501.1115 >60 mL/min Normal EST GFR - AA 64 Result Comment: GFR Calc LAB L501.1255 ml/min Normal Estimated CRCL 50.63 LAB L501.1300 10-20 RATIO Normal BUN/CRE 17.9 LAB L501.1500 6.4-8. g/dL High 2 T PROT 8.4 LAB L501.1800 3.2-5. g/dL Normal 0 ALB 3.7 LAB L501.1950 2.2-4. g/dL High 2 GLOB 4.7 LAB L501.2000 0.9-2. RATIO Low 4 A/G 0.8 LAB L501.2200 8.5-10 mg/dL Normal .1 CA 8.8 LAB L501.4100 15-37 U/L High AST 60 LAB L501.4305 45-117 U/L High ALK P 118 LAB L501.4405 13-56 U/L High ALT 61 LAB L501.4600 0.20-1 mg/dL Normal .00 T BILI 0.50 LAB L501.5300 136-14 mmol/L Low 5 NA 135 LAB L501.5600 3.5-5. mmol/L Normal 1 K 4.0 LAB L501.5900 98-107 mmol/L Normal CL 101 LAB L501.6100 21.0-3 mmol/L Normal 2.0 CO2 26.0 LAB L501.6200 5-15 Normal GAP 8 Performed By: #### L500.4050, L501.2450 #### [facility] [facility] [address] [facility] [place], [address] LIPASE Collected: 12/20/2017 Status: F Source: [place] 2:13 PM [facility] REPOSITORY TYPE CODE TESTS RESULT OUT OF RANGE REFERENCE UNITS LAB L501.2450 73-393 U/L Normal LIPASE 90 Performed By: #### L500.4050, L501.2450 #### [facility] [address] [facility] [place], [address] URINE DRUG SCREEN Collected: 06/20/2017 Status: F Source: [place] (VISTA) 3:17 PM [facility] REPOSITORY Order Comment: List of Drugs Taken or Suspected? UNK TYPE CODE TESTS RESULT OUT OF RANGE REFERENCE UNITS LAB L505.0075 TO BE Normal CONFIRMED Result Comment: CONFIRMATORY TESTING FOR ALL POSITIVE URINE DRUG SCREEN RESULTS WILL ONLY BE SENT OUT UPON PHYSICIAN ORDER. VISTA Urine Drug Screen methods provide only preliminary analytical test results. A more specific alternate chemical method must be used in order to obtain a confirmed analytical result. Gas chromatography/mass spectrometery (GC/MS) is the preferred confirmatory method. Clinical consideration and professional judgement should be applied to any drug of abuse test result, particularly when preliminary positive results are used. URINE TCA TESTING MUST BE ORDERED SEPARATELY. USE TEST MNEMONIC: [facility] LAB L505.5005 VISTA UDS PH 4 Normal LAB L505.5015 <1000 ng/mL AMPHETAMINES Normal NEGATIVE LAB L505.5025 < 200 ng/mL BARBITIURATES Normal NEGATIVE LAB L505.5035 < 200 ng/mL BENZODIAZIPINE Normal NEGATIVE LAB L505.5045 < 300 ng/mL COCAINE Normal NEGATIVE LAB L505.5055 < 500 ng/mL ECSTACY Normal NEGATIVE LAB L505.5065 < 300 ng/mL METHADONE Normal NEGATIVE LAB L505.5075 < 300 High ng/mL OPIATES POSITIVE LAB L505.5085 < 25 ng/mL PCP Normal NEGATIVE LAB L505.5095 < 50 ng/mL THC Normal NEGATIVE Performed By: #### L505.5000 #### [facility] [address] [place], [address] MISCELLANEOUS LAB Collected: 06/20/2017 Status: F Source: [place] PROCEDURE 3:17 PM [facility] REPOSITORY Order Comment: Test(s) Ordered: [id number] TYPE CODE TESTS RESULT OUT OF RANGE REFERENCE UNITS LAB L801.1541 Normal [facility] LAB TEST Result Comment: [id number] 6+OXYCODONE-BUND (ng/mL) DRUG RESULT SCREEN CUTOFF ____ Amphetamines,Urine Negative ng/mL 1000 Amphetamine test includes Amphetamine and Methamphetamine. Barbiturates Negative ng/mL 200 Benzodiazepines POSITIVE ng/mL 100 Please Note; Confirmation performed by Mass Spectrometry Nordiazepam Negative Oxazepam Negative Flurazepam Negative Lorazepam Negative Alprazolam Negative Clonazepam Positive Clonazepam Confirm 1260 ng/mL 100 Temazepam Negative Triazolam Negative Midazolam Negative Cannabinoid Negative ng/mL 20 Cocaine (Metab) Negative ng/mL 300 Opiates Negative ng/mL 300 Opiates test includes Codeine, Morphine, Hydromorphone, Hydrocodone. Oxycodone/Oxymorphone,Urine Positive ng/mL 300 Test includes Oxydodone and Oxymorphone. Oxycodone Positive Oxycodone GC/MS 2820 ng/mL 300 Oxymorphone Positive Oxymorphone GC/MS 4600 ng/mL 300 TESTING PERFORMED AT [facility]. ORIGINAL REPORT ON FILE IN LAB CONTAINS ADDITIONAL TEST SITE INFORMATION. Performed By: #### L801.1541 #### [facility] [place], [address] ALLERGIES ALLERGIES DATE TYPE / CODE NAME / CODE REACTION SEVERITY SOURCE 12/21/19 Drug prochlorperazine Shortness of Unknown [place] 18 Allergy/676084624 edisylate/[id number](R breath [facility] (SNOMED CT) XNORM) Hospital Repository 12/21/19 Drug prochlorperazine Shortness of Unknown [place] 18 Allergy/482941555 maleate/H115606419(RXN breath [facility] (SNOMED CT) ORM) Hospital Repository 12/21/19 Drug hydrocodone Unknown Unknown [place] 18 Allergy/890267898 bitartrate/V326920337( [facility] (SNOMED CT) RXNORM) Hospital Repository 12/21/19 Drug dicyclomine Nausea/Vom/Di Unknown [place] 18 Allergy/862199047 HCl/H109120709(RXNORM) arrhea [facility] (SNOMED CT) Hospital Repository 12/21/19 Drug doxycycline Unknown Unknown [place] 18 Allergy/686156819 calcium/U751355349(RXN [facility] (SNOMED CT) ORM) Hospital Repository 12/21/19 Drug doxycycline Unknown Unknown [place] 18 Allergy/538405570 hyclate/C031466526(RXN [facility] (SNOMED CT) ORM) Hospital Repository 12/21/19 Drug doxycycline Unknown Unknown [place] 18 Allergy/582587588 monohydrate/C878296990 Community (SNOMED CT) (RXNORM) Hospital Repository 12/21/19 Drug hydroxychloroquine Nausea Unknown [place] 18 Allergy/761295469 sulfate/E004852353(RXN [facility] (SNOMED CT) ORM) Hospital Repository 12/21/19 Drug fexofenadine Other Unknown [place] 18 Allergy/141549116 HCl/T952413225(RXNORM) [facility] (SNOMED CT) Hospital Repository 12/21/19 Drug Sulfa (Sulfonamide Vomiting Unknown [place] 18 Allergy/479345182 Antibiotics)/Q96762645 Community (SNOMED CT) 1(RXNORM) Hospital Repository 12/21/19 Drug hydrocodone/K796623958 Vomiting Unknown [place] 18 Allergy/554461098 (RXNORM) [facility] ([facility] CT) Hospital Repository 12/21/19 Drug methotrexate/O42131074 Upset Stomach Unknown [place] 18 Allergy/153101259 4(RXNORM) [facility] ([facility] CT) Hospital Repository 12/21/19 Drug cefaclor/R620295755(RX Unknown Unknown [place] 18 Allergy/646417011 NORM) [facility] ([facility] CT) Hospital Repository 12/21/19 Drug sulfamethoxazole/F0060 Unknown Unknown [place] 18 Allergy/438439933 29295(RXNORM) [facility] ([facility] CT) Hospital Repository 12/21/19 Drug trimethoprim/C23344258 Unknown Unknown [place] 18 Allergy/791456691 3(RXNORM) [facility] ([facility] CT) Hospital Repository 12/21/19 Drug terfenadine/S103834162 Unknown Unknown [place] 18 Allergy/521916294 (RXNORM) [facility] ([facility]) Hospital Repository 12/21/19 Drug fentanyl/R203566484(RX Nausea Unknown [place] 18 Allergy/173781970 NORM) [facility] ([facility] CT) Hospital Repository 12/21/19 Drug clarithromycin/K165460 Vomiting Unknown [place] 18 Allergy/647448047 608(RXNORM) [facility] ([facility] CT) Hospital Repository 12/21/19 Drug doxepin/H762332021(RXN Unknown Unknown [place] 18 Allergy/509274930 ORM) [facility] ([facility] CT) Hospital Repository 12/21/19 Drug colestipol/I952773660( Other Unknown [place] 18 Allergy/528522277 RXNORM) [facility] ([facility] CT) Hospital Repository 12/21/19 Drug hydroxychloroquine/F00 Shortness of Unknown [place] 18 Allergy/967750285 2374355(RXNORM) breath [facility] ([facility] CT) Hospital Repository 12/21/19 Drug levofloxacin/Z61356250 Other Unknown [place] 18 Allergy/823912388 9(RXNORM) [facility] ([facility] CT) Hospital Repository 12/21/19 Drug leflunomide/O210171820 Other Unknown [place] 18 Allergy/424687119 (RXNORM) [facility] ([facility] CT) Hospital Repository 12/21/19 Drug celecoxib/T590831835(R Itching Unknown [place] 18 Allergy/264477920 XNORM) [facility] (SNOMED CT) Hospital Repository 12/21/19 Drug adalimumab/X901941799( Vomiting Unknown [place] 18 Allergy/464217884 RXNORM) [facility] (SNOMED CT) Hospital Repository 12/21/19 Drug golimumab/Y095085325(R Other Unknown [place] 18 Allergy/600020022 XNORM) [facility] (SNOMED CT) Hospital Repository 04/20/20 Miscellaneous TRINILLIN Unknown Unknown [place] 16 Allergy/681565434 [facility] ([facility]) Hospital Repository ENCOUNTERS ENCOUNTERS ADMIT/DISCHARGE ACCOUNT ADMITTING ENCOUNTER LOCATION SOURCE NUMBER CLASS 05/28/2018 [id number] Ambulatory [place] 3 [facility] ing:BFHLAB Repository 02/22/2018/ [id number] Ambulatory [place] 8 5 [facility] ing:PT Repository 12/20/2017/ [id number] Emergency [place] 8 9 [facility] ing:ED Repository 06/20/2017 [id number] Ambulatory [place] 3 [facility] ing:LAB Repository PAYERS PAYERS ENCOUNTER GUARANTOR PAYER SUBSCRIBER SOURCE 05/28/2018 ZACKERY A Primary Insurance:MMO ZACKERY A [place] [id number] MEDICAREPolicy AMSTUTZDOB: [place], Number: [id number] [address]Qck: [id number] Repository Date:[id number] [address]WJ: 05/28/2018 Secondary NOT GIVENUNK [place] Insurance:SELF PAY [facility] Number: Effective Repository Date:2018-05-28 02/22/2018 ZACKERY A Primary Insurance:MMO ZACKERY A [place] [id number] MEDICAREPolicy AMSTUTZDOB: [place], Number: [id number] [facility] General Hospital [id number]: [id number] Repository Date:[id number] [address] () [address] [address]FI: 02/22/2018 Secondary NOT GIVENUNK [place] Insurance:SELF PAY [facility] Number: Effective Repository Date:2018-01-10 12/20/2017 ZACKERY A Primary Insurance:MMO ZACKERY A [place] [id number] MEDICAREPolicy AMSTUTZDOB: [facility], Number: [id number] County General Hospital [address]Tqi: [id number] Repository Date:[id number] [address] () [address] [address]BJ: 12/20/2017 Secondary NOT GIVENUNK [place] Insurance:SELF PAY [facility] Number: Effective Repository Date:2017-12-20 06/20/2017 Zackery A Primary Zackery A [place] [id number] Insurance:ANTHEM AmstutzDOB: [facility], MEDICARE PPOPolicy [id number] County General Hospital [address]Zer: Number: Repository [phone] [id number] () Date:[id number] [place] [address]AY: 06/20/2017 Secondary NOT GIVENUNK [place] Insurance:SELF PAY [facility] Number: Effective Repository Date:2017-06-20
== END ==
PROVIDERS: Family Provider Family Medicine; PCP Family Medicine; Visit Provider Family Medicine
DX: M06.9 Rheumatoid arthritis, unspecified (principal); M79.7 Fibromyalgia; M25.40 Effusion, unspecified joint
CPT/HCPCS: 36415; 80053; 82306; 84439; 84443; 85025; 85652; 86038; 86140; 86200; 86225; 86235; 86431

== ENCOUNTER → 2018-07-31 15:01 | Outpatient (CLI) | payer MEDICARE, SELFPAY ==
[2018-07-31 17:52] LABS: ALB/GLOB Ratio 0.9 RATIO (0.9-2.4); AST(SGOT) 39 U/L (15-37); Alanine Aminotransfer ALT/SGPT 52 U/L (13-56); Albumin, Serum 3.6 g/dL (3.2-5.0); Alkaline Phosphatase 97 U/L (45-117); Anion Gap 9 (5-15); BUN 12 mg/dL (7-18); Calcium,Total 8.5 mg/dL (8.5-10.1); Chloride 104 mmol/L (98-107); Creatinine, Serum 0.92 mg/dL (0.55-1.02); EST Glomerular Filtration Rate 66 mL/min (>60); Est Glom Filt Rate - Afr Amer 80 mL/min (>60); Globulin 3.9 g/dL (2.2-4.2); Glucose 118 mg/dL (74-106); Lipase 68 U/L (73-393); Potassium 4.1 mmol/L (3.5-5.1); Protein, Total 7.5 g/dL (6.4-8.2); Sodium Level 139 mmol/L (136-145)
[2018-07-31 17:57] LABS: Hemoglobin A1c 6.4 % (4.2-6.3)
== END ==
PROVIDERS: Family Provider Family Medicine; PCP Family Medicine; Visit Provider Family Medicine
DX: R73.9 Hyperglycemia, unspecified (principal); R10.11 Right upper quadrant pain; R11.0 Nausea
CPT/HCPCS: 36415; 80053; 83036; 83690

== ENCOUNTER → 2018-08-22 16:00 | Outpatient (CLI) | payer MEDICARE, SELFPAY ==
[2018-08-22 17:58] LABS: Amphetamine Urine VISTA NEGATIVE (<1000 ng/mL); Barbiturate Urine VISTA NEGATIVE (< 200 ng/mL); Benzodiazepine Urine VISTA NEGATIVE (< 200 ng/mL); Cocaine Urine VISTA NEGATIVE (< 300 ng/mL); Ecstacy Urine VISTA NEGATIVE (< 500 ng/mL); Methadone Urine VISTA NEGATIVE (< 300 ng/mL); PCP Urine VISTA NEGATIVE (< 25 ng/mL); THC Urine VISTA NEGATIVE (< 50 ng/mL); Vista UDS pH Range 5
== END ==
PROVIDERS: Family Provider Family Medicine; PCP Family Medicine; Referring Provider Anesthesiology Pain Medicine; Visit Provider Anesthesiology Pain Medicine
DX: F11.20 Opioid dependence, uncomplicated (principal)
CPT/HCPCS: 80307

== ENCOUNTER → 2018-08-24 15:12 | Outpatient (CLI) | payer MEDICARE, SELFPAY ==
--- NOTE | 2018-08-24 15:15 | BI_ITS ---
MAMMOGRAPHY - BILATERAL SCREENING REASON FOR EXAM: Female, 58 years old. Routine annual screening examination. PERTINENT HISTORY: Non-contributory. TECHNIQUE: Digital bilateral breast leigh (3D mammographic acquisition) in the CC and MLO projections. 2-D mediolateral oblique (MLO) and craniocaudad (CC) views of both breasts were obtained. CAD: Full Field Digital Mammography with Computer Added Detection was performed. COMPARISON: Comparison is made with prior outside examination dated December 10, 2007. FINDINGS: Breast Composition: There are scattered areas of fibroglandular density. There are no dominant masses or suspicious calcifications. No other significant abnormalities are identified. There has been no significant change since the prior study. BI/SCREENING MAMM (CAD), BILAT IMPRESSION: Stable bilateral screening mammogram. Yearly follow-up mammogram recommended. (A) ASSESSMENT CATEGORY: BIRADS Category 1: Negative. A letter regarding these results will be sent to the patient by the facility within 30 days. Approximately 10% of breast cancers are not detected by mammography. A normal mammogram should not delay biopsy of a clinically suspicious abnormality. [id number] Electronically Signed: Shaggy Hairston, at 9:04 EST , Service support ,
== END ==
PROVIDERS: Family Provider Family Medicine; PCP Family Medicine; Referring Provider Family Medicine; Visit Provider Family Medicine
DX: Z12.31 Encounter for screening mammogram for malignant neoplasm of breast (principal)
CPT/HCPCS: 77063; 77067

== ENCOUNTER → 2018-11-20 13:47 | Outpatient (CLI) | payer MEDICARE, SELFPAY ==
--- NOTE | 2018-11-20 13:49 | RAD_ITS ---
STUDY: X-RAY - PELVIS AND RIGHT HIP REASON FOR EXAM: Female, 58 years old. Hip pain TECHNIQUE: 3 views of the pelvis and hip. COMPARISON: 11/28/14 FINDINGS: There is a non-specific bowel gas pattern. Normal visualized soft tissue structures. Normal bilateral iliac wings, sacroiliac joints and visualized sacrum. Normal bilateral superior and inferior pubic rami. Normal pubic symphysis. Normal bilateral ischial tuberosities. Normal visualized femoral head. Normal acetabulum. Normal hip joint. RAD/HIP, UNI W/ Pelvis 2-3 Views IMPRESSION: Normal x-ray examination of the pelvis and hip. Electronically Signed: Ervin Feldman MD at 14:42 EDT , Service support ,
== END ==
PROVIDERS: Family Provider Family Medicine; PCP Family Medicine; Referring Provider Anesthesiology Pain Medicine; Visit Provider Anesthesiology Pain Medicine
DX: M25.559 Pain in unspecified hip (principal)
CPT/HCPCS: 73502

== ENCOUNTER 2019-02-11 02:44 | Observation (INO) | payer MEDICARE, SELFPAY ==
[2019-02-11] VITALS (15 sets, daily range): BP systolic 117–188; BP diastolic 73–94; PULSE 74–102; RESP 15–22; TEMP 36.6–37.1; O2SAT 93–100; BMI 42.9; BMI 41.9; BMI 42.0
--- NOTE | 2019-02-11 03:02 | EKG12_ITS ---
Test Reason : PALPITATIONS Blood Pressure : / mmHG Vent. Rate : 094 BPM Atrial Rate : 094 BPM P-R Int : 150 ms QRS Dur : 076 ms QT Int : 388 ms P-R-T Axes : 066 006 023 degrees QTc Int : 485 ms Normal sinus rhythm Nonspecific ST abnormality Prolonged QT Abnormal ECG Confirmed by VANNESSA SARGENT, DEBBI ([id number]), editor producer SHAWNEE TRIPLETT ([id number]) on 02/12/2019 1:40:37 PM Referred By: Sheree Garzon Confirmed By:DEBBI HURD MD
--- NOTE | 2019-02-11 03:02 | RAD_ITS ---
STUDY: X-RAY CHEST REASON FOR EXAM: Female, 58 years old. Chest pain TECHNIQUE: Single AP portable view of the chest. COMPARISON: None. FINDINGS: Calcified nodule seen in the right lung base measures 5 mm consistent with a granuloma. There is no demonstrated pleural abnormality. Normal size heart. Normal mediastinum and murtaza. Normal visualized pulmonary arteries. Normal visualized aortic arch and descending thoracic aorta. Normal visualized thoracic spine. Normal visualized ribs, clavicles, and shoulders. There is no demonstrated abnormality of the visualized soft tissue structures of the upper abdomen. RAD/Chest 1 View (Portable) IMPRESSION: Degenerative changes, as described above. No demonstrated acute cardiopulmonary process. Electronically Signed: Ravin Calderon, at 3:31 EDT Tel , Service support ,
--- NOTE | 2019-02-11 03:10 | ED.DCSUM_ITS ---
History of Present Illness Chief Complaint: Palpitations Informant: Patient Onset: Today - (this past day, all day -- pt presents around 3am) Activity at onset: Rest Timing: Intermittent Quality: Aching Location: Left Chest - left upper chest Current Severity: Moderate Maximum Severity: Moderate Worsened By: Nothing Relieved By: Nothing Associated Symptoms: Dyspnea, Lightheadedness, Palpitations - beating hard and racing. Negative for: Cough Narrative: Patient states she sees Dr. Ward with pain management for chronic arthritic pain in her hands and pain in her back. He has been on vacation and because of a prescription mess up, she ran out of her gabapentin and basically discontinued it cold turkey for about the past week or 2. In that time her hands been hurting worse but she states her back has been stable and not severe or intolerable. She has noticed that throughout the course of the day today her blood pressures been very high up to 190 systolics and 100 diastolic. She usually runs low, in the 110-120 range systolic. - Past Medical History (1) Anxiety Status: Chronic (2) Chronic pain syndrome Status: Chronic (3) Depression Status: Chronic (4) Fibromyalgia Status: Chronic (5) Hyperlipidemia Status: Chronic (6) Rheumatoid arthritis Status: Chronic Past Medical History - Allergies and Home Meds Allergies/Adverse Reactions: Allergies adalimumab [From Humira] Allergy (Verified 12/20/17 13:33) Vomiting cefaclor [From Ceclor] Allergy (Verified 12/20/17 13:33) Unknown celecoxib [From Celebrex] Allergy (Verified 12/20/17 13:33) Itching doxepin [Doxepin] Allergy (Verified 12/20/17 13:33) Unknown doxycycline calcium [From Vibramycin] Allergy (Verified 12/20/17 13:33) Unknown doxycycline hyclate [From Vibramycin] Allergy (Verified 12/20/17 13:33) Unknown doxycycline monohydrate [From Vibramycin] Allergy (Verified 12/20/17 13:33) Unknown hydrocodone bitartrate [From Vicodin] Allergy (Verified 12/20/17 13:33) Unknown hydroxychloroquine [Hydroxychloroquine] Allergy (Verified 12/20/17 13:33) Shortness of breath leflunomide [From Arava] Allergy (Verified 12/20/17 13:33) Other FACE TWITCHING prochlorperazine [From Compazine] Allergy (Verified 02/11/19 02:51) Shortness of breath prochlorperazine edisylate [From Compazine] Allergy (Verified 12/20/17 13:33) Shortness of breath prochlorperazine maleate [From Compazine] Allergy (Verified 12/20/17 13:33) Shortness of breath sulfamethoxazole [From Septra] Allergy (Verified 12/20/17 13:33) Unknown terfenadine [From Seldane] Allergy (Verified 12/20/17 13:33) Unknown trimethoprim [From Septra] Allergy (Verified 12/20/17 13:33) Unknown clarithromycin [From Biaxin] Adverse Reaction (Verified 12/20/17 13:33) Vomiting colestipol Adverse Reaction (Verified 12/20/17 13:33) Other dicyclomine HCl [From Bentyl] Adverse Reaction (Verified 12/20/17 13:33) Nausea/Vom/Diarrhea doxycycline [From Vibramycin] Adverse Reaction (Verified 02/11/19 02:51) Nausea fentanyl Adverse Reaction (Verified 12/20/17 13:33) Nausea fexofenadine HCl [From Jessica] Adverse Reaction (Verified 12/20/17 13:33) Other golimumab [From Simponi] Adverse Reaction (Verified 12/20/17 13:33) Other PALPITATIONS hydrocodone Adverse Reaction (Verified 12/20/17 13:33) Vomiting hydroxychloroquine sulfate [From Plaquenil] Adverse Reaction (Verified 12/20/17 13:33) Nausea levofloxacin [From Levaquin] Adverse Reaction (Verified 12/20/17 13:33) Other methotrexate Adverse Reaction (Verified 12/20/17 13:33) Upset Stomach Sulfa (Sulfonamide Antibiotics) Adverse Reaction (Verified 12/20/17 13:33) Vomiting TRINILLIN Allergy (Uncoded 04/20/16 11:44) Unknown Primary Care Physician: Uziel Alford MD [Primary Care Provider] - Surgical History: appendectomy, total knee arthroplasty Lives: Spouse/ Significant Other Smoking Status: Never smoker - Family History Paternal Family History: Reports: No pertinent history Review of Systems General: Reports: Malaise, - - lightheadedness. Denies: Chills, Fever, Sweats Eyes: Denies: Visual changes - bilaterally, Diplopia ENT: Denies: Bilateral ear pain, Rhinorrhea, Sore throat Cardiovascular: Reports: Chest pain, Palpitations, Heart racing Respiratory: Reports: Dyspnea - off and on. Denies: Cough, Sputum, Dyspnea on exertion, Orthopnea Gastrointestinal: Reports: Abdominal pain - chronic, diffuse, unchanged, my IBS, Constipation. Denies: Nausea, Vomiting, Diarrhea, Melena, Hematochezia Genitourinary: Denies: Dysuria, Hematuria, Frequency Musculoskeletal: Reports: Arthralgias, Back pain - chronic low. Denies: Neck pain, Extremity Pain Skin: Denies: Rash, Wounds Neurological: Denies: Headache, Weakness, Numbness Physical Exam Vital Signs/Narrative: Vital Signs Temp Pulse Resp BP Pulse Ox 02/11/19 02:56 97.8 F 86 15 188/94 H 100 02/11/19 02:45 98.7 F 102 H 17 188/94 H 98 Inital Vital Signs reviewed: Yes General: Well nourished, Well developed, No Acute Distress Head: Normocephalic, Atraumatic Eyes: Perrl, EOMI ENT: Moist mucous membranes, No rhinorrhea Neck: Supple, Nontender, No JVD Cardiovascular: Regular rate, Regular rhythm, No murmurs, Normal S1, Normal S2. Negative for: Tachycardia Respiratory: No distress, CTA bilaterally, Chest nontender Abdomen: Soft, Nontender, Nondistended, Normal bowel sounds Back: Nontender, Normal Inspection Extremities: Nontender, Edema - 1+ nonpitting BLE, symmetric. Negative for: Calf Tenderness Skin: Normal color, No rash, No Trauma Neurological: Alert, Oriented x3, Cranial nerves II-XII grossly intact, Normal Strength, Normal Sensation Psychological: Normal affect, Normal Mood Diagnostic/Tx/Re-eval Impressions Chest X-Ray 02/11/19 03:02 IMPRESSION: Degenerative changes, as described above. No demonstrated acute cardiopulmonary process. Electronically Signed: Ravin Calderon, at 3:31 EDT Tel , Service support , 02/11/19 03:02 Chest 1 View (Portable) [RAD] Stat Laboratory Results 02/11/19 02/11/19 02:50 02:50 WBC 15.1 H RBC 5.01 Hgb 14.2 Hct 44.3 MCV 88.4 MCH 28.3 MCHC 32.1 RDW Std Deviation 41.4 RDW Coeff of Hernan 12.9 Plt Count 273 MPV 10.6 Immature Gran % (Auto) 0.500 Neut % (Auto) 52.0 Lymph % (Auto) 38.8 Labette % (Auto) 5.9 Eos % (Auto) 2.3 Baso % (Auto) 0.5 Absolute Neuts (auto) 7.8 H Absolute Lymphs (auto) 5.84 H Nucleated RBC % 0 Differential Comment SCANNED Sodium 140 Potassium 3.8 Chloride 106 Carbon Dioxide 26.0 Anion Gap 9 BUN 16 Creatinine 1.00 Estim Creat Clear Calc 56.01 Est GFR (MDRD) Af Amer 73 Est GFR (MDRD) Non-Af 60 BUN/Creatinine Ratio 16.0 Glucose 115 H Calcium 9.0 Troponin I < 0.015 - Rhythm Strip Rhythm Strip: Sinus Rhythm Rate: 94 Ectopy: None - EKG Initial EKG Interpretation: Sinus Rhythm, No Acute Injury Pattern, - - Prolonged QTC. subtle nonspecific septal ST-T abn; otherwise nonischemic EKG. Prior: Unchanged Treatment: NTG SL, Beta Paramjit IV Repeat Eval: Some improvement, chest pain persistent. RALF Risk: ASA within 7 days, Severe Angina </=24 hours Score: 2 - Medical Decision Making With treatment, patient is feeling a little better but still uncomfortable. Her heart is not beating is hard once we got her blood pressure down with labetalol and nitroglycerin, one point she was 117 systolic, right now she is 143 systolic. Still having some left upper chest discomfort. Certainly not classic angina, and her troponin is negative, but she really prefers to stay in the hospital for a stress test versus being discharged home. She does have some risk factors. Her last stress test was around 2 years ago and was negative. Discussed with hospitalist for PCU observation. ED Disposition - Plan for ED Patient: Disposition: Acute Care Hospital [facility] Diagnosis: Chest pain, unspecified, Palpitations, Accelerated hypertension Referrals: Uziel Alford MD [Primary Care Provider] -
[2019-02-11 03:13] LABS: Absolute Lymphocyte Count 5.84 X10^3/uL (0.83-4.51); Absolute Neutrophil Count 7.8 X10^3/uL (2.0-7.7); Basophil# 0.07 X10^3/uL; Basophil% 0.5 % (0-1); Eosinophil# 0.35 X10^3/uL; Eosinophils% 2.3 % (0-5); Hematocrit 44.3 % (37-47); Hemoglobin 14.2 g/dL (12.0-15.0); Lymphocyte # 5.84 X10^3/ul (4.0); Lymphocyte % 38.8 % (19-41); Mean Corp Hgb Conc 32.1 g/dL (32-36); Mean Corpuscular Hgb 28.3 pg (27.0-32.0); Mean Corpuscular Volume 88.4 fL (81-99); Mean Platelet Vol. 10.6 fl (6.2-12.0); Monocyte# 0.89 X10^3/uL; Monocyte% 5.9 % (0-10); NRBC Flagged by Analyzer 0 % (0-5); Neutrophil # 7.84 X10^3/uL (2.7-7.7); POSITIVE DIFFERENTIAL YES; Platelet Count 273 K/mm3 (150-450); RBC Distribution Width CV 12.9 % (11.6-14.6); RBC Distribution Width SD 41.4 fl (35.1-43.9); Red Blood Count 5.01 M/mm3 (4.2-5.4); White Blood Count 15.1 K/mm3 (4.4-11.0)
[2019-02-11] MEDS: Ondansetron 4 MG/2 ML Vial IV (03:15)
[2019-02-11] MEDS: Nitroglycerin SL (ED/IMG/CATH) 0.4 MG TABLET SUBLINGUAL ×2 (03:15→03:26)
[2019-02-11 03:18] LABS: Differential Indicated SCAN CRITERIA MET
--- NOTE | 2019-02-11 03:23 | NURSING ---
PT STATES SHE TOOK [address] 81MG ASA [address] ASKEW AWARE. ASA D/C'D
[2019-02-11] MEDS: 0.9% Normal Saline 1,000 ML 150 ML IV (03:31)
[2019-02-11 03:37] LABS: Differential Comment SCANNED
[2019-02-11 04:12] LABS: Anion Gap 9 (5-15); BUN 16 mg/dL (7-18); Chloride 106 mmol/L (98-107); Estimated Creatinine Clearance 56.01 ml/min; Glucose 115 mg/dL (74-106); Potassium 3.8 mmol/L (3.5-5.1); Sodium Level 140 mmol/L (136-145)
[2019-02-11 04:14] LABS: EST Glomerular Filtration Rate 60 mL/min (>60); Est Glom Filt Rate - Afr Amer 73 mL/min (>60)
--- NOTE | 2019-02-11 04:24 | HP.PCM_ITS ---
History of Present Illness Date of Admission: 02/11/19 Chief Complaint: chest pain The patient is a 58 year old F with a PMH of rheumatoid arthritis, fibromyalgia and HTN. She was admitted through the ED on 02/12/20 with a complaint of chest pain. Synptoms started earlier on the day of presentation. She described pain as tightness, left sided, with no aggravating or relieving factors. She had associated shortness of breawth, palpitations and lightheadedness. She denied any dizziness, abdominal pain, diarrhea or vomiting. Review of systems was otherwise negative. She also checked her BP and noted it was elevated, in the 190s systolic. in the ED, vitals were significant for mild tachypnea with respiratory rate of 22. BP was 188/94 on admission. CBC showed white cell count of 15.1 and BMP was unremarkable. Initial troponin was negative. Chest x-ray showed no acute cardiopulmonary process. Of note, patient stated that she had not taken her gabapentin for a few weeks now as her friend Dr. Dr. Thompson he was on vacation. She therefore thought she may be withdrawing from gabapentin. EKG done showed no acute ST changes. She has been admitted to manage for chest pain rule out ACS and hypertensive emergency. Of note, blood pressure did come down to 117/78 at time of review. Past Medical History Past Medical History (Chronic Problems): Chronic Problems Rheumatoid arthritis (Chronic) Hyperlipidemia (Chronic) Fibromyalgia (Chronic) Depression (Chronic) Anxiety (Chronic) Chronic pain syndrome (Chronic) Allergies adalimumab [From Humira] Allergy (Verified 12/20/17 13:33) Vomiting cefaclor [From Ceclor] Allergy (Verified 12/20/17 13:33) Unknown celecoxib [From Celebrex] Allergy (Verified 12/20/17 13:33) Itching doxepin [Doxepin] Allergy (Verified 12/20/17 13:33) Unknown doxycycline calcium [From Vibramycin] Allergy (Verified 12/20/17 13:33) Unknown doxycycline hyclate [From Vibramycin] Allergy (Verified 12/20/17 13:33) Unknown doxycycline monohydrate [From Vibramycin] Allergy (Verified 12/20/17 13:33) Unknown hydrocodone bitartrate [From Vicodin] Allergy (Verified 12/20/17 13:33) Unknown hydroxychloroquine [Hydroxychloroquine] Allergy (Verified 12/20/17 13:33) Shortness of breath leflunomide [From Arava] Allergy (Verified 12/20/17 13:33) Other FACE TWITCHING prochlorperazine [From Compazine] Allergy (Verified 02/11/19 02:51) Shortness of breath prochlorperazine edisylate [From Compazine] Allergy (Verified 12/20/17 13:33) Shortness of breath prochlorperazine maleate [From Compazine] Allergy (Verified 12/20/17 13:33) Shortness of breath sulfamethoxazole [From Septra] Allergy (Verified 12/20/17 13:33) Unknown terfenadine [From Seldane] Allergy (Verified 12/20/17 13:33) Unknown trimethoprim [From Septra] Allergy (Verified 12/20/17 13:33) Unknown clarithromycin [From Biaxin] Adverse Reaction (Verified 12/20/17 13:33) Vomiting colestipol Adverse Reaction (Verified 12/20/17 13:33) Other dicyclomine HCl [From Bentyl] Adverse Reaction (Verified 12/20/17 13:33) Nausea/Vom/Diarrhea doxycycline [From Vibramycin] Adverse Reaction (Verified 02/11/19 02:51) Nausea fentanyl Adverse Reaction (Verified 12/20/17 13:33) Nausea fexofenadine HCl [From Jessica] Adverse Reaction (Verified 12/20/17 13:33) Other golimumab [From Simponi] Adverse Reaction (Verified 12/20/17 13:33) Other PALPITATIONS hydrocodone Adverse Reaction (Verified 12/20/17 13:33) Vomiting hydroxychloroquine sulfate [From Plaquenil] Adverse Reaction (Verified 12/20/17 13:33) Nausea levofloxacin [From Levaquin] Adverse Reaction (Verified 12/20/17 13:33) Other methotrexate Adverse Reaction (Verified 12/20/17 13:33) Upset Stomach Sulfa (Sulfonamide Antibiotics) Adverse Reaction (Verified 12/20/17 13:33) Vomiting TRINILLIN Allergy (Uncoded 04/20/16 11:44) Unknown Home Medications: Ambulatory Orders Medication Instructions Recorded Atorvastatin Calcium [Lipitor] 10 mg PO QHS 05/14/14 Citalopram [Celexa] 60 mg PO DAILY 05/14/14 Gabapentin [Neurontin] 300 mg PO 5X/DAY 05/14/14 Latanoprost 0.005% [Xalatan 1 drop EACH EYE QHS 05/14/14 Opthalmic] Prednisone 10 mg PO PRN PRN 05/14/14 Sumatriptan Succinate [Imitrex] 50 mg PO .X1 PRN PRN 05/14/14 Zolpidem Tartrate [Ambien] 10 mg PO QHS 05/14/14 cycloBENZAPRine HCl [Flexeril] 10 mg PO TID PRN 05/14/14 Promethazine HCl [Phenergan] 25 mg PO PRN PRN 12/17/14 Hyoscyamine Sulfate 0.125 mg SL Q4H PRN PRN 04/20/16 Oxycodone HCl/Acetaminophen 1 tablet PO TID 04/20/16 [Oxycodon-Acetaminophen 7.5-325] Buprenorphine [Butrans] 1 patch TD QWEEK 12/20/17 Buspirone HCl 30 mg PO BID 12/20/17 Cetirizine HCl [Zyrtec] 10 mg PO DAILY 12/20/17 Loperamide [Imodium] 2 mg PO Q4H PRN PRN #20 cap 12/20/17 Meloxicam 7.5 mg PO DAILY 12/20/17 Polyethylene Glycol 3350 [Miralax] 2 dose PO DAILY PRN 12/20/17 Surgical History: total knee arthroplasty, - Psychiatric History: Depression [employer] History: No pertinent [employer] history Smoking Status: Never smoker - *Family History Paternal History Items: No pertinent history Review of Systems Constitutional: Denies: Chills, Fever, Malaise, Weakness, Weight Change, Fatigue Eyes: Denies: Blurred vision HEENT: Denies: Head Aches, Sinus Congestion, Sinus Drainage Cardiovascular: Reports: Chest Pain, Chest Tightness, Light Headedness, Palpitations. Denies: Heaviness, Orthopnea, Paroxysmal Noc. Dyspnea, Syncope Respiratory: Reports: Shortness of Breath. Denies: Cough, Shortness of breath at rest, Sputum production Gastrointestinal: Denies: Abdominal Pain, Nausea, Vomiting Genitourinary: Denies: Dysuria Musculoskeletal: Denies: Joint Pain, Joint Tenderness Skin: Denies: Rash, Wounds Neurological: Denies: Numbness, Tingling, Focal weakness Psychiatric: Denies: Anxiety, Depression, Homicidal Ideations, Suicidal Ideations Hematologic/ Lymphatic: Denies: Easy Bruising, Easy Bleeding VTE Information - Inpt Only VTE Present on Admission: No VTE Pharm Prophylaxis ordered?: Yes Patient Problems: Active and Suspected Problems Chest pain, unspecified (Acute) Palpitations (Acute) Accelerated hypertension (Acute) - Physical Exam General: Alert, Oriented x3, Cooperative, - - anxious HEENT: Atraumatic, PERRLA, EOMI, Normocephalic Oral: Moist Mucosa Neck: Supple, No JVD, Negative Carotid Bruits Lungs: Clear to auscultation, Normal air movement Cardiovascular: Regular rate, Regular Rhythm, Normal S1, Normal S2, No murmurs Abdomen: Bowel Sounds Present, Soft, Non Tender, Non-Distended, No Hepato- splenomegaly Extremities: No clubbing, No cyanosis, No edema, Capillary Refill Less than 3 Seconds Skin: No rashes, No breakdown Musculoskeletal: No Tenderness to Palpation of Joints or Extremities Lymphatic: No Cervical, Supraclavicular, or Inguinal Adenopathy Neurological: Cranial nerves II-XII grossly intact, Neuro grossly intact, Motor Exam 5/5 strength throughout Psych/Mental Status: Normal Affect, Anxious, Alert and oriented to time, place, person, mood and affect Vital Signs Temp Pulse Resp BP Pulse Ox 97.8 F 74 22 H 117/78 97 02/11/19 02:56 02/11/19 03:34 02/11/19 03:34 02/11/19 03:34 02/11/19 03:34 Oxygen Flow Rate (L/min) 2 Oxygen Delivery Method Room Air Weight: 265 lb 14.04 oz Body Mass Index (BMI) 42.9 Laboratory Tests Past 24 Hrs 02/11/19 02/11/19 02:50 02:50 WBC 15.1 H RBC 5.01 Hgb 14.2 Hct 44.3 MCV 88.4 MCH 28.3 MCHC 32.1 RDW Std Deviation 41.4 RDW Coeff of Hernan 12.9 Plt Count 273 MPV 10.6 Immature Gran % (Auto) 0.500 Neut % (Auto) 52.0 Lymph % (Auto) 38.8 Pershing % (Auto) 5.9 Eos % (Auto) 2.3 Baso % (Auto) 0.5 Absolute Neuts (auto) 7.8 H Absolute Lymphs (auto) 5.84 H Nucleated RBC % 0 Differential Comment SCANNED Sodium 140 Potassium 3.8 Chloride 106 Carbon Dioxide 26.0 Anion Gap 9 BUN 16 Creatinine 1.00 Estim Creat Clear Calc 56.01 Est GFR (MDRD) Af Amer 73 Est GFR (MDRD) Non-Af 60 BUN/Creatinine Ratio 16.0 Glucose 115 H Calcium 9.0 Troponin I < 0.015 Diagnostic Data Chest X-Ray 02/11/19 03:02 IMPRESSION: Degenerative changes, as described above. No demonstrated acute cardiopulmonary process. Electronically Signed: Ravin Calderon, at 3:31 EDT Tel , Service support , Assessment/Plan All Active Problems Chest pain, unspecified (Acute) Palpitations (Acute) Accelerated hypertension (Acute) 58 y/o admitted with a complaint of chest pain 1. Chest pain to r/o ACS * admit to pCU with telemetry * initial troponin is negative. will cycle troponins * SL nitroglycerin prn; po aspirin 81mg daily * EKG showed no acute ST changes * if troponins are negative, for stress test * 2. Elevated BP * BP was in 180s on admission, says her BP is usually in 120s-130s systolic; coupled with chest pain, she fits criteria for hypertensive emergency * not a known hypertensive. BP came down to 117 systolic in ED * I think anxiety likely played a big role in BP elevation. Wont start BP meds for now. IV hdralazine prn * patient also thinks that she may be having withdrawal symptoms from gabapentin as she hasnt taken it for a while * to monitor BP; if it remains elevated during admission, to consider starting BP meds * 3. Rheumatoid arthritis: not on any meds, as she says all the meds she has tried dont work for her. Stable 4. Fibromyalgia: on meloxicam and percocet. 5. hyperlipidemia: on statin 6. Anxiety and depression: on citalopram and klonopin DVT prophylaxis: lovenox Code Visit OBSV E&M: [id number] Initial observation care L3
[2019-02-11 04:34] LABS: Mucous, Urine 0 SEEN /hpf (<or=2+); Red Blood Cells-Urine 0 SEEN /hpf (0-5); Squamous Epithelial Cells - UA 0 SEEN /hpf (5-10); White Blood Cells 0 SEEN /hpf (0-5)
[2019-02-11 04:42] LABS: Color, Urine Yellow (Yellow); Glucose, Dipstick Normal (Normal); Ketone-Dipstick Negative (Negative); Leukocyte Esterase-Dipstick 25 /ul (Negative); Nitrite-Dipstick Negative (Negative); Occult Blood-Urine Negative /ul (Negative); Protein-Dipstick Negative (Negative); Urine Bilirubin Dipstick Negative (Negative); Urine Clarity Sl. Cloudy (Clear); Urine Urobilinogen Normal (Normal)
[2019-02-11 04:56] LABS: Amorphous Sediment 2+; Bacteria 1+ /hpf (None Seen)
[2019-02-11] MEDS: Aspirin 81 MG TAB.CHEW PO (05:39)
[2019-02-11] MEDS: oxyCODONE 5 MG Tablet PO ×2 (05:39→13:27)
--- NOTE | 2019-02-11 06:02 | EKG12_ITS ---
Test Reason : CP ADM EKG Blood Pressure : / mmHG Vent. Rate : 076 BPM Atrial Rate : 076 BPM P-R Int : 158 ms QRS Dur : 076 ms QT Int : 422 ms P-R-T Axes : 066 005 007 degrees QTc Int : 474 ms Normal sinus rhythm Normal ECG When compared with ECG of 11-FEB-2019 02:49, MANUAL COMPARISON REQUIRED, DATA IS UNCONFIRMED Confirmed by JOCELIN CALVO ([id number]), pictures editor NOE TADEO ([id number]) on 02/18/2019 2:42:09 PM Referred By: Sheree Garzon Confirmed By:JOCELIN CALVO
[2019-02-11] MEDS: LORazepam 1 MG Tablet PO (06:13)
[2019-02-11 06:39] LABS: Absolute Lymphocyte Count 4.76 X10^3/uL (0.83-4.51); Basophil# 0.06 X10^3/uL; Basophil% 0.4 % (0-1); Eosinophil# 0.25 X10^3/uL; Eosinophils% 1.6 % (0-5); Hematocrit 43.6 % (37-47); Hemoglobin 14.4 g/dL (12.0-15.0); Lymphocyte # 4.76 X10^3/ul (4.0); Lymphocyte % 29.9 % (19-41); Mean Corpuscular Hgb 28.9 pg (27.0-32.0); Mean Corpuscular Volume 87.6 fL (81-99); Mean Platelet Vol. 10.6 fl (6.2-12.0); Monocyte# 0.74 X10^3/uL; Monocyte% 4.7 % (0-10); NRBC Flagged by Analyzer 0 % (0-5); Neutrophil # 10.02 X10^3/uL (2.7-7.7); Neutrophil % 62.9 % (47-70); Platelet Count 296 K/mm3 (150-450); RBC Distribution Width CV 12.8 % (11.6-14.6); RBC Distribution Width SD 40.5 fl (35.1-43.9); Red Blood Count 4.98 M/mm3 (4.2-5.4); White Blood Count 15.9 K/mm3 (4.4-11.0)
[2019-02-11 06:56] LABS: Anion Gap 8 (5-15); BUN 15 mg/dL (7-18); BUN/Creat Ratio 15.4 RATIO (10-20); Calcium,Total 8.9 mg/dL (8.5-10.1); Chloride 107 mmol/L (98-107); Creatinine, Serum 0.97 mg/dL (0.55-1.02); EST Glomerular Filtration Rate 62 mL/min (>60); Est Glom Filt Rate - Afr Amer 75 mL/min (>60); Estimated Creatinine Clearance 57.74 ml/min; Glucose 120 mg/dL (74-106); Potassium 3.9 mmol/L (3.5-5.1); Sodium Level 138 mmol/L (136-145)
--- NOTE | 2019-02-11 08:35 | NURSING ---
pt being taken off of floor for stress test
[2019-02-11] MEDS: Meloxicam 7.5 MG Tablet PO (10:43)
[2019-02-11] MEDS: Loratadine 10 MG Tablet PO (10:43)
[2019-02-11] MEDS: Citalopram 40 MG TABLET 60 MG PO (10:43)
[2019-02-11] MEDS: busPIRone 15 MG TABLET 30 MG PO (10:43)
[2019-02-11] MEDS: Nitroglycerin (INPATIENT USE) 0.4 MG TAB.SUBL SUBLINGUAL ×3 (11:32→11:44)
--- NOTE | 2019-02-11 13:05 | STRESSREP ---
Stress Test Report Pharmacologic myocardial perfusion stress test. 58-year-old lady with a history of chest pain. Resting EKG demonstrates normal sinus rhythm with a rate of 85 bpm normal intervals are noted resting blood pressures 160/90 mmHg. 0.4 mg of regadenoson was infused per usual protocol followed by rapid intravenous and flush injection continuous monitoring specialist was performed. The maximum heart rate attained was 112 bpm which was 70% of maximum predicted heart rate and maximum workload was 1 metabolic equivalent. At rest there were no ST or T wave changes noted suggest abnormal flow reserve a peak infusion nonspecific ST-T wave changes were noted. The resting blood pressures 160/90 mmHg with a final blood pressure 152/82 mmHg. No clinical angina was noted. Myocardial perfusion protocol. 14.5 mCi of technetium 99m sestamibi was injected at rest. 0.4 mg of regadenoson was infused per usual protocol peak infusion 44.8 mCi of technetium 99m sestamibi was injected stress images were obtained stress and rest images were reconstructed and compared in the short axis vertical and horizontal long axis. Gated images were also obtained. Perfusion SPECT analysis: Review of the stress images demonstrate normal uptake of tracer noted in all areas of the myocardium. The resting images similar demonstrate normal uptake of tracer noted in all areas of the myocardium. No reversibility is noted suggest ischemia no previous infarct is noted. Gated SPECT analysis: The gated ejection fraction is noted to be 80%. Conclusion: Normal pharmacologic myocardial perfusion stress test. Preserved ejection fraction.
[2019-02-11] MEDS: amLODIPine 5 MG Tablet PO (13:28)
--- NOTE | 2019-02-11 13:29 | PCM.DC ---
- Discharge Diagnoses Current Active Problems: Current Active and Chronic Problems Chest pain, unspecified (Acute) Palpitations (Acute) Accelerated hypertension (Acute) You will use the following diet at home:: No restrictions Your food should be the consistency of: Regular Your liquids should be the consistency of: Regular/Thin Discharge Activity: Return to Normal Activity Instructions: CHEST PAIN, NonCardiac Additional Instructions: Follow up with your primary care physician for referall to psychiatry and counseling. Allergies/Adverse Reactions: Allergies adalimumab [From Humira] Allergy (Verified 12/20/17 13:33) Vomiting cefaclor [From Ceclor] Allergy (Verified 12/20/17 13:33) Unknown celecoxib [From Celebrex] Allergy (Verified 12/20/17 13:33) Itching doxepin [Doxepin] Allergy (Verified 12/20/17 13:33) Unknown doxycycline calcium [From Vibramycin] Allergy (Verified 12/20/17 13:33) Unknown doxycycline hyclate [From Vibramycin] Allergy (Verified 12/20/17 13:33) Unknown doxycycline monohydrate [From Vibramycin] Allergy (Verified 12/20/17 13:33) Unknown hydrocodone bitartrate [From Vicodin] Allergy (Verified 12/20/17 13:33) Unknown hydroxychloroquine [Hydroxychloroquine] Allergy (Verified 12/20/17 13:33) Shortness of breath leflunomide [From Arava] Allergy (Verified 12/20/17 13:33) Other FACE TWITCHING prochlorperazine [From Compazine] Allergy (Verified 02/11/19 02:51) Shortness of breath prochlorperazine edisylate [From Compazine] Allergy (Verified 12/20/17 13:33) Shortness of breath prochlorperazine maleate [From Compazine] Allergy (Verified 12/20/17 13:33) Shortness of breath sulfamethoxazole [From Septra] Allergy (Verified 12/20/17 13:33) Unknown terfenadine [From Seldane] Allergy (Verified 12/20/17 13:33) Unknown trimethoprim [From Septra] Allergy (Verified 12/20/17 13:33) Unknown clarithromycin [From Biaxin] Adverse Reaction (Verified 12/20/17 13:33) Vomiting colestipol Adverse Reaction (Verified 12/20/17 13:33) Other dicyclomine HCl [From Bentyl] Adverse Reaction (Verified 12/20/17 13:33) Nausea/Vom/Diarrhea doxycycline [From Vibramycin] Adverse Reaction (Verified 02/11/19 02:51) Nausea fentanyl Adverse Reaction (Verified 12/20/17 13:33) Nausea fexofenadine HCl [From Jessica] Adverse Reaction (Verified 12/20/17 13:33) Other golimumab [From Simponi] Adverse Reaction (Verified 12/20/17 13:33) Other PALPITATIONS hydrocodone Adverse Reaction (Verified 12/20/17 13:33) Vomiting hydroxychloroquine sulfate [From Plaquenil] Adverse Reaction (Verified 12/20/17 13:33) Nausea levofloxacin [From Levaquin] Adverse Reaction (Verified 12/20/17 13:33) Other methotrexate Adverse Reaction (Verified 12/20/17 13:33) Upset Stomach Sulfa (Sulfonamide Antibiotics) Adverse Reaction (Verified 12/20/17 13:33) Vomiting TRINILLIN Allergy (Uncoded 04/20/16 11:44) Unknown Medications to take at Discharge Atorvastatin Calcium [Lipitor] 10 mg PO QHS 05/14/14 Citalopram [Celexa] 60 mg PO DAILY 05/14/14 Latanoprost 0.005% [Xalatan Opthalmic] 1 drop EACH EYE QHS 05/14/14 Prednisone 10 mg PO PRN PRN 05/14/14 Sumatriptan Succinate [Imitrex] 50 mg PO .X1 PRN PRN 05/14/14 Zolpidem Tartrate [Ambien] 10 mg PO QHS 05/14/14 cycloBENZAPRine HCl [Flexeril] 10 mg PO TID PRN 05/14/14 Promethazine HCl [Phenergan] 25 mg PO PRN PRN 12/17/14 Hyoscyamine Sulfate 0.125 mg SL Q4H PRN PRN 04/20/16 Oxycodone HCl/Acetaminophen [Oxycodon-Acetaminophen 7.5-325] 1 tablet PO TID 04/20/16 Buprenorphine [Butrans] 1 patch TD QWEEK 12/20/17 Buspirone HCl 30 mg PO BID 12/20/17 Cetirizine HCl [Zyrtec] 10 mg PO DAILY 12/20/17 Loperamide [Imodium] 2 mg PO Q4H PRN PRN #20 cap 12/20/17 Meloxicam 7.5 mg PO DAILY 12/20/17 Polyethylene Glycol 3350 [Miralax] 2 dose PO DAILY PRN 12/20/17 Amlodipine [Norvasc] 5 mg PO DAILY #30 tab 02/11/19 The following prescriptions were given: Amlodipine [Norvasc] 5 mg PO DAILY #30 tab Transmission Status: Pending to [id number] Primary Care Physician: Uziel Alford MD [Primary Care Provider] - Within 2 Weeks Test Results: Test results from this visit will be discussed in further detail at your follow-up appointment, if applicable. Please Follow Up With: Latia Ward MD When: call for appointment Proposed Discharge Date: 02/11/19
--- NOTE | 2019-02-11 13:31 | PCM.DC.SUM ---
Discharge Date and Diagnosis - Problem List Patient Problems: Active and Suspected Problems Chest pain, unspecified (Acute) Palpitations (Acute) Accelerated hypertension (Acute) Date of Admission: 02/11/19 Date of Discharge: 02/11/19 - Primary Discharge Diagnosis Active and Suspected Problems Chest pain, unspecified (Acute) Palpitations (Acute) Accelerated hypertension (Acute) - Secondary Discharge Diagnosis Chronic Problems Rheumatoid arthritis (Chronic) Hyperlipidemia (Chronic) Fibromyalgia (Chronic) Depression (Chronic) Anxiety (Chronic) Chronic pain syndrome (Chronic) Hospital Course and Treatment Imaging Results: 02/11/19 05:09 Nuclear Stress Test - Chemical [NM] Routine Clinical Impression(s) from Imaging Studies Chest X-Ray 02/11/19 03:02 IMPRESSION: Degenerative changes, as described above. No demonstrated acute cardiopulmonary process. Electronically Signed: Ravin Nairan, at 3:31 EDT Tel , Service support , Operations: None Procedures: Stress test Summary of Care Provided: The patient is a 58 year old F presents with chest pain. Patient was having chest tightness is left-sided radiating up her neck. Patient was also noted to be hypertensive with blood pressure of 188/94. She states she took her blood pressure at home and is in the 190s. She states that her blood sugars never been that high before. Patient underwent initial cardiac work-up with troponins are thus far negative and stress test was performed. I saw the patient before the results of the stress test were available and did discuss with the patient. Patient appeared to be very anxious and which is worried about hours chest pain is her heart even though I told her I think is more of a panic attack. Stress test did come back and it was negative. I do feel that her chest pain and tightness is anxiety or panic attack induced. Reassurance was provided to the patient. Patient is already on several medications for anxiety, including citalopram and buspirone. Patient did receive Ativan in the emergency room which I did help her. I did inform patient that I would not be prescribing her any additional lorazepam while she is in the hospital or upon discharge given the fact that she is already on buprenorphine patch as well as Percocet. Patient was concerned about being going through gabapentin withdrawal as she said that she had recently run out. I did review her OARRS, and she last received gabapentin on July 04 and she received 260 at that time. Patient states that she is taking 5/day. She said that she is likely had this prescription for that long because she is been hospitalized for much of this time.. Reviewing the records from our hospital and patient has not been hospitalized during that time. Told her I would not be prescribing her any gabapentin. Patient will need follow-up with Dr. Ward to receive the gabapentin if necessary. I did advise patient to follow her primary care provider to get established with psychiatry counselor as she is currently not seeing anyone at least not recently. Patient will be started on amlodipine 5 mg for her hypertension. I chose that over HCTZ can pick the patient is complaining of a urinary frequency. Urinalysis was negative for urinary tract infection however,. Also avoiding OFELIA inhibitors given the patient's numerous medication allergies or intolerances cannot say definitively that she would have angioedema associated with that but if these are not true allergies she could be certainly at risk for an allergic reaction associated with that so if discharged her with 5 mg of amlodipine as a feel that would be less likely to pose a risk of allergic reaction. [] Patient Problems: Active and Suspected Problems Chest pain, unspecified (Acute) Palpitations (Acute) Accelerated hypertension (Acute) - Physical Exam General: Alert, No apparent distress HEENT: Atraumatic, Normocephalic Oral: Moist Mucosa, No Gingival or Mucosal Lesions/ Ulcerations Neck: No Nodes, Thyroid Normal Size and Texture Lungs: Clear to auscultation, Normal air movement, No rhonchi, No wheeze, No rales Cardiovascular: Regular rate, Regular Rhythm, Normal S1, Normal S2, No murmurs Abdomen: Bowel Sounds Present, Soft, Non Tender, Non-Distended, No Hepato-splenomegaly Psych/Mental Status: Appropriate, Anxious Vital Signs Temp Pulse Resp BP Pulse Ox 36.8 C 90 18 146/79 H 96 02/11/19 11:38 02/11/19 11:44 02/11/19 11:38 02/11/19 11:44 02/11/19 11:43 Oxygen Flow Rate (L/min) 2 Oxygen Delivery Method Nasal Cannula Weight: 117.9 kg Body Mass Index (BMI) 41.9 Laboratory Tests Past 24 Hrs 02/11/19 02/11/19 02/11/19 02:50 02:50 04:26 WBC 15.1 H RBC 5.01 Hgb 14.2 Hct 44.3 MCV 88.4 MCH 28.3 MCHC 32.1 RDW Std Deviation 41.4 RDW Coeff of Hernan 12.9 Plt Count 273 MPV 10.6 Immature Gran % (Auto) 0.500 Neut % (Auto) 52.0 Lymph % (Auto) 38.8 Hill % (Auto) 5.9 Eos % (Auto) 2.3 Baso % (Auto) 0.5 Absolute Neuts (auto) 7.8 H Absolute Lymphs (auto) 5.84 H Nucleated RBC % 0 Differential Comment SCANNED Sodium 140 Potassium 3.8 Chloride 106 Carbon Dioxide 26.0 Anion Gap 9 BUN 16 Creatinine 1.00 Estim Creat Clear Calc 56.01 Est GFR (MDRD) Af Amer 73 Est GFR (MDRD) Non-Af 60 BUN/Creatinine Ratio 16.0 Glucose 115 H Calcium 9.0 Troponin I < 0.015 Urine Color Yellow Urine Clarity Sl. Cloudy Urine pH 8.0 Ur Specific Hubbard 1.010 Urine Protein Negative Urine Glucose (UA) Normal Urine Ketones Negative Urine Occult Blood Negative Urine Nitrite Negative Urine Bilirubin Negative Urine Urobilinogen Normal Ur Leukocyte Esterase 25 H Urine RBC 0 SEEN Urine WBC 0 SEEN Ur Squamous Epith Cells 0 SEEN Amorphous Sediment 2+ Urine Bacteria 1+ Urine Mucus 0 SEEN 02/11/19 02/11/19 02/11/19 06:15 06:15 08:40 WBC 15.9 H RBC 4.98 Hgb 14.4 Hct 43.6 MCV 87.6 MCH 28.9 MCHC 33.0 RDW Std Deviation 40.5 RDW Coeff of Hernan 12.8 Plt Count 296 MPV 10.6 Immature Gran % (Auto) 0.500 Neut % (Auto) 62.9 Lymph % (Auto) 29.9 Hill % (Auto) 4.7 Eos % (Auto) 1.6 Baso % (Auto) 0.4 Absolute Neuts (auto) 10.0 H Absolute Lymphs (auto) 4.76 H Nucleated RBC % 0 Differential Comment Sodium 138 Potassium 3.9 Chloride 107 Carbon Dioxide 23.0 Anion Gap 8 BUN 15 Creatinine 0.97 Estim Creat Clear Calc 57.74 Est GFR (MDRD) Af Amer 75 Est GFR (MDRD) Non-Af 62 BUN/Creatinine Ratio 15.4 Glucose 120 H Calcium 8.9 Troponin I < 0.015 < 0.015 Urine Color Urine Clarity Urine pH Ur Specific Hubbard Urine Protein Urine Glucose (UA) Urine Ketones Urine Occult Blood Urine Nitrite Urine Bilirubin Urine Urobilinogen Ur Leukocyte Esterase Urine RBC Urine WBC Ur Squamous Epith Cells Amorphous Sediment Urine Bacteria Urine Mucus Discharge Diet: No Restrictions Discharge Activity: Return to Normal Activity Home Medications: Medications to take at Discharge Atorvastatin Calcium [Lipitor] 10 mg PO QHS 05/14/14 Citalopram [Celexa] 60 mg PO DAILY 05/14/14 Latanoprost 0.005% [Xalatan Opthalmic] 1 drop EACH EYE QHS 05/14/14 Prednisone 10 mg PO PRN PRN 05/14/14 Sumatriptan Succinate [Imitrex] 50 mg PO .X1 PRN PRN 05/14/14 Zolpidem Tartrate [Ambien] 10 mg PO QHS 05/14/14 cycloBENZAPRine HCl [Flexeril] 10 mg PO TID PRN 05/14/14 Promethazine HCl [Phenergan] 25 mg PO PRN PRN 12/17/14 Hyoscyamine Sulfate 0.125 mg SL Q4H PRN PRN 04/20/16 Oxycodone HCl/Acetaminophen [Oxycodon-Acetaminophen 7.5-325] 1 tablet PO TID 04/20/16 Buprenorphine [Butrans] 1 patch TD QWEEK 12/20/17 Buspirone HCl 30 mg PO BID 12/20/17 Cetirizine HCl [Zyrtec] 10 mg PO DAILY 12/20/17 Loperamide [Imodium] 2 mg PO Q4H PRN PRN #20 cap 12/20/17 Meloxicam 7.5 mg PO DAILY 12/20/17 Polyethylene Glycol 3350 [Miralax] 2 dose PO DAILY PRN 12/20/17 Amlodipine [Norvasc] 5 mg PO DAILY #30 tab 02/11/19 Following Prescrptions Were Given to Patient: Amlodipine [Norvasc] 5 mg PO DAILY #30 tab Transmission Status: Pending to [facility] Primary Care Physician: Uziel Alford MD [Primary Care Provider] - Within 2 Weeks Please Follow Up With: Latia Ward MD When: call for appointment Patient Instructions: CHEST PAIN, NonCardiac Disposition: Home Minutes spent on discharge:: 32 Patient Condition:: Good Medical Necessity - Tobacco Use Smoking Status: Never smoker Meaningful Use Info Meaningful Use Diagnoses (Choose all that apply): None applicable Code Visit OBSV E&M: 32098 Observation care discharge
== END 2019-02-11 13:31 | disposition home or self-care (01) ==
LOC: ED 04:25 → PCU 04:39
PROVIDERS: Admitting Provider Student in an Organized Health Care Education/Training Program; Emergency Provider Emergency Medicine; Family Provider Family Medicine; PCP Family Medicine; Referring Provider Student in an Organized Health Care Education/Training Program
DX: R07.9 Chest pain, unspecified (principal); I10 Essential (primary) hypertension; M19.90 Unspecified osteoarthritis, unspecified site; F41.9 Anxiety disorder, unspecified; G89.4 Chronic pain syndrome; M79.7 Fibromyalgia; E78.5 Hyperlipidemia, unspecified; M06.9 Rheumatoid arthritis, unspecified; Z88.8 Allergy status to other drugs, medicaments and biological substances; Z79.899 Other long term (current) drug therapy
CPT/HCPCS: 36415; 36592; 71045; 78452; 80048; 81001; 84484; 85025; 93005; 93017; 96361; 96374; 96375; 99218; 99285; A9500; J7030; A4216; G0378; J2405; J2785

== ENCOUNTER → 2019-05-13 14:01 | Outpatient (CLI) | payer MEDICARE, SELFPAY ==
[2019-02-11 05:11] VITALS: BMI 41.9
[2019-05-13 15:05] LABS: Amphetamine Urine VISTA NEGATIVE (<1000 ng/mL); Barbiturate Urine VISTA NEGATIVE (< 200 ng/mL); Benzodiazepine Urine VISTA NEGATIVE (< 200 ng/mL); Cocaine Urine VISTA NEGATIVE (< 300 ng/mL); Ecstacy Urine VISTA NEGATIVE (< 500 ng/mL); Methadone Urine VISTA NEGATIVE (< 300 ng/mL); PCP Urine VISTA NEGATIVE (< 25 ng/mL); THC Urine VISTA NEGATIVE (< 50 ng/mL); Vista UDS pH Range 5
== END ==
PROVIDERS: Family Provider Family Medicine; PCP Family Medicine; Referring Provider Anesthesiology Pain Medicine; Visit Provider Anesthesiology Pain Medicine
DX: F11.20 Opioid dependence, uncomplicated (principal)
CPT/HCPCS: 80307

== ENCOUNTER → 2020-01-02 08:16 | Outpatient (CLI) | payer MEDICARE, SELFPAY ==
[2019-02-11 05:11] VITALS: BMI 41.9
--- NOTE | 2020-01-02 09:00 | RAD_ITS ---
STUDY: X-RAY CHEST REASON FOR EXAM: Female, 59 years old. Rheumatoid arthritis. Long-term therapeutic drug use . TECHNIQUE: PA and lateral views of the chest. COMPARISON: February 11, 2019. FINDINGS: The lungs are well-expanded. There is mild chronic interstitial changes. There is a stable calcified granuloma in the right lateral costophrenic angle. There is no demonstrated pleural abnormality. Normal size heart. Normal mediastinum and murtaza. Normal visualized pulmonary arteries. Normal visualized aortic arch and descending thoracic aorta. There are diffuse degenerative changes of the visualized thoracic spine. Normal visualized ribs, clavicles, and shoulders. There is no demonstrated abnormality of the visualized soft tissue structures of the upper abdomen. RAD/Chest PA and Lateral IMPRESSION: No acute cardiopulmonary disease or interval change. Electronically Signed: Jorge Peralta DO at 17:00 EDT Tel [phone], Service support ,
[2020-01-02 10:00] LABS: Absolute Neutrophil Count 7.1 X10^3/uL (2.0-7.7); Basophil# 0.07 X10^3/uL; Basophil% 0.5 % (0-1); Eosinophil# 0.26 X10^3/uL; Hematocrit 43.2 % (37-47); Hemoglobin 13.3 g/dL (12.0-15.0); Lymphocyte % 37.1 % (19-41); Mean Corp Hgb Conc 30.8 g/dL (32-36); Mean Corpuscular Volume 90.9 fL (81-99); Mean Platelet Vol. 11.2 fl (6.2-12.0); Monocyte# 0.62 X10^3/uL; Monocyte% 4.8 % (0-10); NRBC Flagged by Analyzer 0 % (0-5); Neutrophil # 7.09 X10^3/uL (2.7-7.7); Neutrophil % 54.9 % (47-70); Platelet Count 271 K/mm3 (150-450); RBC Distribution Width CV 13.3 % (11.6-14.6); RBC Distribution Width SD 44.4 fl (35.1-43.9); Red Blood Count 4.75 M/mm3 (4.2-5.4); White Blood Count 12.9 K/mm3 (4.4-11.0)
[2020-01-02 10:12] LABS: Erythrocyte Sedimentation Rate 50 mm/hr (0-30)
[2020-01-02 10:23] LABS: ALB/GLOB Ratio 0.8 RATIO (0.9-2.4); AST(SGOT) 17 U/L (15-37); Alanine Aminotransfer ALT/SGPT 28 U/L (13-56); Albumin, Serum 3.3 g/dL (3.2-5.0); Alkaline Phosphatase 102 U/L (45-117); Anion Gap 9 (5-15); BUN 15 mg/dL (7-18); Calcium,Total 8.3 mg/dL (8.5-10.1); Chloride 102 mmol/L (98-107); Cholesterol 148 mg/dL (200); Creatinine, Serum 0.94 mg/dL (0.55-1.02); EST Glomerular Filtration Rate 64 mL/min (>60); Est Glom Filt Rate - Afr Amer 78 mL/min (>60); Globulin 4.2 g/dL (2.2-4.2); Glucose 111 mg/dL (74-106); High Density Lipoprotein 37 mg/dL; Potassium 3.7 mmol/L (3.5-5.1); Protein, Total 7.5 g/dL (6.4-8.2); Rheumatoid Factor < 10.0 IU/mL (<15); Sodium Level 137 mmol/L (136-145); Triglycerides 200 mg/dL; Very Low Density Lipoprotein 40 mg/dL (5-40)
[2020-01-02 10:51] LABS: Hepatitis B Surface Antibody Non-Reactive; Hepatitis B Surface Antigen Non-Reactive (Nonreactive); Hepatitis C Antibody Non-Reactive (Nonreactive)
[2020-01-06 20:05] LABS: QNTFERON TB Mitogen Value > 10.00 IU/mL (.); QNTFERON TB Nil Value 0.03 IU/mL (.); QNTFERON TB1+ Ag Value 0.05 IU/mL (.); QNTFERON TB2+ Ag Value 0.03 IU/mL (.)
[2020-01-07 00:36] LABS: CCP IgG Antibodies 5 units (0-19); QNTIFERON TB Positive Criteria Negative (Negative)
== END ==
PROVIDERS: PCP Family Medicine; Referring Provider Internal Medicine Rheumatology; Visit Provider Internal Medicine Rheumatology
DX: M06.09 Rheumatoid arthritis without rheumatoid factor, multiple sites (principal); Z79.899 Other long term (current) drug therapy; M79.7 Fibromyalgia; M21.41 Flat foot [pes planus] (acquired), right foot; M47.897 Other spondylosis, lumbosacral region; H40.9 Unspecified glaucoma; K58.9 Irritable bowel syndrome, unspecified; F41.9 Anxiety disorder, unspecified; F32.9 Major depressive disorder, single episode, unspecified; G43.909 Migraine, unspecified, not intractable, without status migrainosus; E78.5 Hyperlipidemia, unspecified
CPT/HCPCS: 36415; 71046; 80053; 80061; 85025; 85652; 86140; 86200; 86431; 86480; 86706; 86803; 87340

== ENCOUNTER → 2020-03-13 08:13 | Outpatient (CLI) | payer MEDICARE, SELFPAY ==
[2019-02-11 05:11] VITALS: BMI 41.9
[2020-03-13 10:14] LABS: Absolute Lymphocyte Count 6.93 X10^3/uL (0.83-4.51); Absolute Neutrophil Count 4.3 X10^3/uL (2.0-7.7); Basophil# 0.08 X10^3/uL; Basophil% 0.6 % (0-1); Eosinophil# 0.22 X10^3/uL; Eosinophils% 1.8 % (0-5); Hematocrit 42.9 % (37-47); Hemoglobin 13.1 g/dL (12.0-15.0); Lymphocyte # 6.93 X10^3/ul (4.0); Lymphocyte % 56.3 % (19-41); Mean Corp Hgb Conc 30.5 g/dL (32-36); Mean Corpuscular Hgb 27.3 pg (27.0-32.0); Mean Corpuscular Volume 89.6 fL (81-99); Monocyte# 0.68 X10^3/uL; Monocyte% 5.5 % (0-10); NRBC Flagged by Analyzer 0 % (0-5); Neutrophil # 4.25 X10^3/uL (2.7-7.7); Neutrophil % 34.5 % (47-70); POSITIVE DIFFERENTIAL YES; POSITIVE MORPHOLOGY YES; Platelet Count 336 K/mm3 (150-450); RBC Distribution Width CV 13.3 % (11.6-14.6); RBC Distribution Width SD 43.7 fl (35.1-43.9); Red Blood Count 4.79 M/mm3 (4.2-5.4); White Blood Count 12.3 K/mm3 (4.4-11.0)
[2020-03-13 10:16] LABS: Differential Indicated SCAN CRITERIA MET
[2020-03-13 10:47] LABS: ALB/GLOB Ratio 0.9 RATIO (0.9-2.4); AST(SGOT) 26 U/L (15-37); Alanine Aminotransfer ALT/SGPT 38 U/L (13-56); Albumin, Serum 3.7 g/dL (3.2-5.0); Alkaline Phosphatase 96 U/L (45-117); Anion Gap 7 (5-15); BUN 17 mg/dL (7-18); BUN/Creat Ratio 18.5 RATIO (10-20); Calcium,Total 9.2 mg/dL (8.5-10.1); Chloride 102 mmol/L (98-107); Cholesterol 166 mg/dL (200); Creatinine, Serum 0.92 mg/dL (0.55-1.02); EST Glomerular Filtration Rate 66 mL/min (>60); Est Glom Filt Rate - Afr Amer 80 mL/min (>60); Globulin 3.9 g/dL (2.2-4.2); Glucose 97 mg/dL (74-106); High Density Lipoprotein 38 mg/dL; Protein, Total 7.6 g/dL (6.4-8.2); Sodium Level 138 mmol/L (136-145); Triglycerides 223 mg/dL; Very Low Density Lipoprotein 45 mg/dL (5-40)
== END ==
PROVIDERS: PCP Family Medicine; Referring Provider Internal Medicine Rheumatology; Visit Provider Internal Medicine Rheumatology
DX: M06.09 Rheumatoid arthritis without rheumatoid factor, multiple sites (principal); Z79.899 Other long term (current) drug therapy; M79.7 Fibromyalgia; M21.41 Flat foot [pes planus] (acquired), right foot; H40.9 Unspecified glaucoma; K58.9 Irritable bowel syndrome, unspecified; F41.9 Anxiety disorder, unspecified
CPT/HCPCS: 36415; 80053; 80061; 85025

== ENCOUNTER → 2020-04-03 12:23 | Outpatient (CLI) | payer MEDICARE, SELFPAY ==
[2020-03-25 13:08] VITALS: BMI 41.9
--- NOTE | 2020-04-03 12:27 | MRI_ITS ---
STUDY: MRI LUMBAR SPINE WITHOUT CONTRAST REASON FOR EXAM: Female, 60 years old. low back pain INTO LEGS BILATERALLY X YEARS TECHNIQUE: Standardized fat and water weighted pulse sequences were obtained in the sagittal and axial planes. COMPARISON: 09/22/2016 FINDINGS: T12-L1: Normal endplates. Normal disc height, hydration and morphology. Normal bilateral facet joints. Normal central canal and bilateral lateral recesses. Normal bilateral intervertebral neural foramina. Normal lumbar lordosis. There is no substantial scoliosis. Normal conus medullaris that terminates at the L1/L2. L1-2: Normal endplates. Normal disc height, hydration and morphology. Normal bilateral facet joints. Normal central canal and bilateral lateral recesses. Normal bilateral intervertebral neural foramina. L2-3: Normal endplates. Normal disc height, hydration and morphology. Normal bilateral facet joints. Normal central canal and bilateral lateral recesses. Normal bilateral intervertebral neural foramina. L3-4: Mild bilateral facet hypertrophy and ligament flavum hypertrophy. Disc desiccation but no disc protrusion, spinal stenosis, or neural foraminal stenosis. L4-5: Moderate bilateral facet hypertrophy. No change in the right foraminal protrusion which produces a mild right neural foraminal stenosis. No central spinal stenosis. L5-S1: Mild bilateral facet hypertrophy. No change in the 2 mm retrolisthesis of L5 on S1 with a mild broad disc protrusion which produces a mild spinal stenosis and moderate bilateral neural foraminal stenosis with abutment of the exiting L5 nerve roots bilaterally. Normal visualized sacral ala. Rudimentary disc space at S1/S2 per Normal visualized paraspinous soft tissue structures. MRI/Spine Lumbar (Routine) IMPRESSION: No change from 09/22/2016. Electronically Signed: Humberto Palomares MD at 15:43 EDT Tel , Service support ,
== END ==
PROVIDERS: PCP Family Medicine; Referring Provider Orthopaedic Surgery; Visit Provider Orthopaedic Surgery
DX: M54.5 Low back pain (principal); M54.16 Radiculopathy, lumbar region
CPT/HCPCS: 72148

== ENCOUNTER → 2020-05-13 14:42 | Outpatient (CLI) | payer MEDICARE, SELFPAY ==
[2020-04-06 10:05] VITALS: BMI 41.9
[2020-05-13 18:25] LABS: Absolute Lymphocyte Count 6.19 X10^3/uL (0.83-4.51); Absolute Neutrophil Count 13.4 X10^3/uL (2.0-7.7); Basophil# 0.07 X10^3/uL; Basophil% 0.3 % (0-1); Eosinophil# 0.11 X10^3/uL; Eosinophils% 0.5 % (0-5); Hematocrit 44.8 % (37-47); Hemoglobin 13.6 g/dL (12.0-15.0); Lymphocyte # 6.19 X10^3/ul (4.0); Lymphocyte % 29.1 % (19-41); Mean Corp Hgb Conc 30.4 g/dL (32-36); Mean Corpuscular Hgb 27.5 pg (27.0-32.0); Mean Corpuscular Volume 90.5 fL (81-99); Mean Platelet Vol. 11.1 fl (6.2-12.0); Monocyte# 1.19 X10^3/uL; Monocyte% 5.6 % (0-10); NRBC Flagged by Analyzer 0 % (0-5); Neutrophil % 63.1 % (47-70); POSITIVE DIFFERENTIAL YES; POSITIVE MORPHOLOGY YES; Platelet Count 336 K/mm3 (150-450); RBC Distribution Width CV 14.6 % (11.6-14.6); RBC Distribution Width SD 48.8 fl (35.1-43.9); Red Blood Count 4.95 M/mm3 (4.2-5.4); White Blood Count 21.3 K/mm3 (4.4-11.0)
[2020-05-13 18:58] LABS: Differential Indicated SCAN CRITERIA MET
[2020-05-13 18:59] LABS: Reactive Lymphocyte 1+
[2020-05-13 19:06] LABS: AST(SGOT) 11 U/L (15-37); Alanine Aminotransfer ALT/SGPT 23 U/L (13-56); Albumin, Serum 3.7 g/dL (3.2-5.0); Alkaline Phosphatase 95 U/L (45-117); Anion Gap 6 (5-15); BUN 20 mg/dL (7-18); BUN/Creat Ratio 18.9 RATIO (10-20); Chloride 105 mmol/L (98-107); Creatinine, Serum 1.06 mg/dL (0.55-1.02); EST Glomerular Filtration Rate 56 mL/min (>60); Est Glom Filt Rate - Afr Amer 68 mL/min (>60); Globulin 3.6 g/dL (2.2-4.2); Glucose 98 mg/dL (74-106); Potassium 3.7 mmol/L (3.5-5.1); Protein, Total 7.3 g/dL (6.4-8.2); Sodium Level 139 mmol/L (136-145)
== END ==
PROVIDERS: PCP Family Medicine; Referring Provider Internal Medicine Rheumatology; Visit Provider Internal Medicine Rheumatology
DX: M06.09 Rheumatoid arthritis without rheumatoid factor, multiple sites (principal); Z79.899 Other long term (current) drug therapy; M79.7 Fibromyalgia; M21.41 Flat foot [pes planus] (acquired), right foot; M47.897 Other spondylosis, lumbosacral region; H40.9 Unspecified glaucoma; K58.9 Irritable bowel syndrome, unspecified; F41.9 Anxiety disorder, unspecified; F32.9 Major depressive disorder, single episode, unspecified; G43.909 Migraine, unspecified, not intractable, without status migrainosus; E78.5 Hyperlipidemia, unspecified
CPT/HCPCS: 36415; 80053; 85025

== ENCOUNTER → 2020-05-19 15:17 | Outpatient (CLI) | payer MEDICARE, SELFPAY ==
[2020-04-06 10:05] VITALS: BMI 41.9
[2020-05-19 17:50] LABS: Absolute Lymphocyte Count 5.46 X10^3/uL (0.83-4.51); Absolute Neutrophil Count 11.4 X10^3/uL (2.0-7.7); Basophil# 0.08 X10^3/uL; Basophil% 0.4 % (0-1); Eosinophil# 0.21 X10^3/uL; Eosinophils% 1.1 % (0-5); Hematocrit 41.7 % (37-47); Hemoglobin 12.8 g/dL (12.0-15.0); Lymphocyte # 5.46 X10^3/ul (4.0); Lymphocyte % 29.3 % (19-41); Mean Corp Hgb Conc 30.7 g/dL (32-36); Mean Corpuscular Hgb 28.1 pg (27.0-32.0); Mean Corpuscular Volume 91.6 fL (81-99); Mean Platelet Vol. 11.2 fl (6.2-12.0); Monocyte% 6.4 % (0-10); NRBC Flagged by Analyzer 0 % (0-5); Neutrophil # 11.43 X10^3/uL (2.7-7.7); Neutrophil % 61.5 % (47-70); POSITIVE DIFFERENTIAL YES; POSITIVE MORPHOLOGY YES; Platelet Count 359 K/mm3 (150-450); RBC Distribution Width CV 14.4 % (11.6-14.6); RBC Distribution Width SD 48.1 fl (35.1-43.9); Red Blood Count 4.55 M/mm3 (4.2-5.4); White Blood Count 18.6 K/mm3 (4.4-11.0)
[2020-05-19 17:55] LABS: Differential Indicated SCAN CRITERIA MET
[2020-05-19 18:20] LABS: Anisocytosis 1+; Hypochromasia 1+; Platelet Estimate ADEQUATE (ADEQ); Reactive Lymphocyte 1+
[2020-05-22 14:08] LABS: SJOGREN'S Anti-SS-A test < 0.2 AI (0.0-0.9); SJOGREN'S Anti-SS-B test < 0.2 AI (0.0-0.9)
[2020-05-22 16:04] LABS: ANTINUCLEAR ANTIBODIES DIRECT Positive (Negative)
== END ==
PROVIDERS: PCP Family Medicine; Referring Provider Internal Medicine Rheumatology; Visit Provider Internal Medicine Rheumatology
DX: M06.09 Rheumatoid arthritis without rheumatoid factor, multiple sites (principal); Z79.899 Other long term (current) drug therapy; M79.7 Fibromyalgia; M21.41 Flat foot [pes planus] (acquired), right foot; M47.897 Other spondylosis, lumbosacral region; H40.9 Unspecified glaucoma; K58.9 Irritable bowel syndrome, unspecified; F41.9 Anxiety disorder, unspecified; F32.9 Major depressive disorder, single episode, unspecified; G43.909 Migraine, unspecified, not intractable, without status migrainosus; E78.5 Hyperlipidemia, unspecified
CPT/HCPCS: 36415; 85025; 86038; 86235

== ENCOUNTER → 2020-05-25 11:00 | Outpatient (CLI) | payer MEDICARE, SELFPAY ==
[2020-04-06 10:05] VITALS: BMI 41.9
[2020-05-25 13:21] LABS: EXAGEN MAILED SPECIMEN
[2020-05-25 15:14] LABS: Absolute Lymphocyte Count 3.85 X10^3/uL (0.83-4.51); Absolute Neutrophil Count 6.8 X10^3/uL (2.0-7.7); Basophil# 0.06 X10^3/uL; Basophil% 0.5 % (0-1); Eosinophil# 0.18 X10^3/uL; Eosinophils% 1.6 % (0-5); Hematocrit 40.7 % (37-47); Hemoglobin 12.6 g/dL (12.0-15.0); Lymphocyte # 3.85 X10^3/ul (4.0); Lymphocyte % 33.2 % (19-41); Mean Corpuscular Hgb 28.2 pg (27.0-32.0); Mean Corpuscular Volume 91.1 fL (81-99); Mean Platelet Vol. 11.2 fl (6.2-12.0); Monocyte# 0.63 X10^3/uL; Monocyte% 5.4 % (0-10); NRBC Flagged by Analyzer 0 % (0-5); Neutrophil % 58.8 % (47-70); Platelet Count 292 K/mm3 (150-450); RBC Distribution Width CV 14.4 % (11.6-14.6); RBC Distribution Width SD 48.2 fl (35.1-43.9); Red Blood Count 4.47 M/mm3 (4.2-5.4); White Blood Count 11.6 K/mm3 (4.4-11.0)
[2020-05-25 15:16] LABS: Absolute Lymphocyte Count 2.95 X10^3/uL (0.83-4.51); Absolute Neutrophil Count 7.7 X10^3/uL (2.0-7.7); Basophil# 0.05 X10^3/uL; Basophil% 0.4 % (0-1); Eosinophils% 1.7 % (0-5); Hematocrit 40.1 % (37-47); Hemoglobin 12.6 g/dL (12.0-15.0); Lymphocyte # 2.95 X10^3/ul (4.0); Lymphocyte % 25.5 % (19-41); Mean Corp Hgb Conc 31.4 g/dL (32-36); Mean Corpuscular Hgb 28.7 pg (27.0-32.0); Mean Corpuscular Volume 91.3 fL (81-99); Mean Platelet Vol. 11.2 fl (6.2-12.0); Monocyte% 5.2 % (0-10); NRBC Flagged by Analyzer 0 % (0-5); Neutrophil # 7.71 X10^3/uL (2.7-7.7); Neutrophil % 66.8 % (47-70); Platelet Count 297 K/mm3 (150-450); RBC Distribution Width CV 14.2 % (11.6-14.6); RBC Distribution Width SD 47.7 fl (35.1-43.9); Red Blood Count 4.39 M/mm3 (4.2-5.4); White Blood Count 11.6 K/mm3 (4.4-11.0)
[2020-05-25 15:24] LABS: AST(SGOT) 27 U/L (15-37); Alanine Aminotransfer ALT/SGPT 43 U/L (13-56); Albumin, Serum 3.6 g/dL (3.2-5.0); Alkaline Phosphatase 87 U/L (45-117); Anion Gap 5 (5-15); BUN 15 mg/dL (7-18); BUN/Creat Ratio 16.4 RATIO (10-20); Chloride 106 mmol/L (98-107); Creatinine, Serum 0.91 mg/dL (0.55-1.02); EST Glomerular Filtration Rate 66 mL/min (>60); Est Glom Filt Rate - Afr Amer 80 mL/min (>60); Globulin 3.6 g/dL (2.2-4.2); Glucose 95 mg/dL (74-106); Potassium 3.9 mmol/L (3.5-5.1); Protein, Total 7.2 g/dL (6.4-8.2); Sodium Level 141 mmol/L (136-145)
[2020-05-25 15:25] LABS: Color, Urine Yellow (Yellow); Glucose, Dipstick Normal (Normal); Ketone-Dipstick Negative (Negative); Leukocyte Esterase-Dipstick 25 /ul (Negative); Nitrite-Dipstick Positive (Negative); Occult Blood-Urine Negative /ul (Negative); Protein-Dipstick Negative (Negative); Specific Gravity, Urine 1.015 (1.002-1.030); Urine Bilirubin Dipstick Negative (Negative); Urine Clarity Clear (Clear); Urine Urobilinogen Normal (Normal)
[2020-05-27 12:07] LABS: SJOGREN'S Anti-SS-A test < 0.2 AI (0.0-0.9); SJOGREN'S Anti-SS-B test < 0.2 AI (0.0-0.9)
[2020-05-27 16:04] LABS: ANTINUCLEAR ANTIBODIES DIRECT Positive (Negative)
== END ==
PROVIDERS: PCP Family Medicine; Referring Provider Internal Medicine Rheumatology; Visit Provider Internal Medicine Rheumatology
DX: M06.09 Rheumatoid arthritis without rheumatoid factor, multiple sites (principal); Z79.899 Other long term (current) drug therapy; M79.7 Fibromyalgia; M21.41 Flat foot [pes planus] (acquired), right foot; M47.897 Other spondylosis, lumbosacral region; H40.9 Unspecified glaucoma; K58.9 Irritable bowel syndrome, unspecified; F41.9 Anxiety disorder, unspecified; F32.9 Major depressive disorder, single episode, unspecified; G43.909 Migraine, unspecified, not intractable, without status migrainosus; E78.5 Hyperlipidemia, unspecified
CPT/HCPCS: 36415; 80053; 81002; 85025; 86038; 86235

== ENCOUNTER → 2020-07-06 15:44 | Outpatient (CLI) | payer MEDICARE, SELFPAY ==
[2020-07-06 18:04] LABS: Absolute Lymphocyte Count 3.24 X10^3/uL (0.83-4.51); Absolute Neutrophil Count 10.5 X10^3/uL (2.0-7.7); Basophil# 0.05 X10^3/uL; Basophil% 0.3 % (0-1); Eosinophil# 0.14 X10^3/uL; Eosinophils% 0.9 % (0-5); Hematocrit 39.9 % (37-47); Hemoglobin 12.4 g/dL (12.0-15.0); Lymphocyte # 3.24 X10^3/ul (4.0); Lymphocyte % 21.7 % (19-41); Mean Corp Hgb Conc 31.1 g/dL (32-36); Mean Corpuscular Hgb 28.4 pg (27.0-32.0); Mean Corpuscular Volume 91.3 fL (81-99); Mean Platelet Vol. 11.2 fl (6.2-12.0); Monocyte# 0.89 X10^3/uL; NRBC Flagged by Analyzer 0 % (0-5); Neutrophil # 10.45 X10^3/uL (2.7-7.7); Neutrophil % 70.2 % (47-70); Platelet Count 298 K/mm3 (150-450); RBC Distribution Width CV 13.4 % (11.6-14.6); Red Blood Count 4.37 M/mm3 (4.2-5.4); White Blood Count 14.9 K/mm3 (4.4-11.0)
[2020-07-06 18:22] LABS: ALB/GLOB Ratio 1.1 RATIO (0.9-2.4); AST(SGOT) 20 U/L (15-37); Alanine Aminotransfer ALT/SGPT 30 U/L (13-56); Albumin, Serum 3.8 g/dL (3.2-5.0); Alkaline Phosphatase 90 U/L (45-117); Anion Gap 9 (5-15); BUN 15 mg/dL (7-18); BUN/Creat Ratio 13.2 RATIO (10-20); Calcium,Total 8.7 mg/dL (8.5-10.1); Chloride 102 mmol/L (98-107); Creatinine, Serum 1.14 mg/dL (0.55-1.02); EST Glomerular Filtration Rate 51 mL/min (>60); Est Glom Filt Rate - Afr Amer 62 mL/min (>60); Globulin 3.4 g/dL (2.2-4.2); Glucose 107 mg/dL (74-106); Potassium 3.8 mmol/L (3.5-5.1); Protein, Total 7.2 g/dL (6.4-8.2); Sodium Level 137 mmol/L (136-145)
== END ==
PROVIDERS: PCP Family Medicine; Referring Provider Internal Medicine Rheumatology; Visit Provider Internal Medicine Rheumatology
DX: M06.09 Rheumatoid arthritis without rheumatoid factor, multiple sites (principal); Z79.899 Other long term (current) drug therapy; M79.7 Fibromyalgia; R76.8 Other specified abnormal immunological findings in serum; M21.41 Flat foot [pes planus] (acquired), right foot; M47.897 Other spondylosis, lumbosacral region; H40.9 Unspecified glaucoma; K58.9 Irritable bowel syndrome, unspecified; F41.9 Anxiety disorder, unspecified; F32.9 Major depressive disorder, single episode, unspecified; G43.909 Migraine, unspecified, not intractable, without status migrainosus; E78.5 Hyperlipidemia, unspecified
CPT/HCPCS: 36415; 80053; 85025

== ENCOUNTER → 2020-08-25 13:54 | Outpatient (CLI) | payer MEDICARE, SELFPAY ==
[2020-08-25 14:50] LABS: Buprenorphine Drug Screen Positive (<10 ng/mL)
[2020-08-25 14:57] LABS: Amphetamine Urine VISTA NEGATIVE (<1000 ng/mL); Barbiturate Urine VISTA NEGATIVE (< 200 ng/mL); Benzodiazepine Urine VISTA NEGATIVE (< 200 ng/mL); Cocaine Urine VISTA NEGATIVE (< 300 ng/mL); Ecstacy Urine VISTA NEGATIVE (< 500 ng/mL); Methadone Urine VISTA NEGATIVE (< 300 ng/mL); PCP Urine VISTA NEGATIVE (< 25 ng/mL); THC Urine VISTA NEGATIVE (< 50 ng/mL); Vista UDS pH Range 5
== END ==
PROVIDERS: PCP Family Medicine; Referring Provider Anesthesiology Pain Medicine; Visit Provider Anesthesiology Pain Medicine
DX: F11.20 Opioid dependence, uncomplicated (principal)
CPT/HCPCS: 80307

== ENCOUNTER → 2020-09-16 09:10 | Outpatient (CLI) | payer MEDICARE, SELFPAY ==
[2020-04-06 10:05] VITALS: BMI 41.9
[2020-09-16 10:25] LABS: Absolute Lymphocyte Count 2.35 X10^3/uL (0.83-4.51); Absolute Neutrophil Count 5.6 X10^3/uL (2.0-7.7); Basophil# 0.03 X10^3/uL; Basophil% 0.3 % (0-1); Eosinophil# 0.27 X10^3/uL; Hemoglobin 12.8 g/dL (12.0-15.0); Lymphocyte # 2.35 X10^3/ul (4.0); Mean Corp Hgb Conc 31.2 g/dL (32-36); Mean Corpuscular Hgb 28.6 pg (27.0-32.0); Mean Corpuscular Volume 91.7 fL (81-99); Mean Platelet Vol. 10.9 fl (6.2-12.0); Monocyte# 0.76 X10^3/uL; Monocyte% 8.4 % (0-10); NRBC Flagged by Analyzer 0 % (0-5); Neutrophil # 5.59 X10^3/uL (2.7-7.7); Neutrophil % 61.9 % (47-70); Platelet Count 289 K/mm3 (150-450); RBC Distribution Width SD 43.8 fl (35.1-43.9); Red Blood Count 4.47 M/mm3 (4.2-5.4)
[2020-09-16 11:11] LABS: ALB/GLOB Ratio 1.1 RATIO (0.9-2.4); AST(SGOT) 24 U/L (15-37); Alanine Aminotransfer ALT/SGPT 31 U/L (13-56); Albumin, Serum 3.8 g/dL (3.2-5.0); Alkaline Phosphatase 83 U/L (45-117); Anion Gap 6 (5-15); BUN 15 mg/dL (7-18); BUN/Creat Ratio 14.7 RATIO (10-20); Calcium,Total 9.1 mg/dL (8.5-10.1); Chloride 106 mmol/L (98-107); Creatinine, Serum 1.02 mg/dL (0.55-1.02); EST Glomerular Filtration Rate 58 mL/min (>60); Est Glom Filt Rate - Afr Amer 71 mL/min (>60); Globulin 3.5 g/dL (2.2-4.2); Glucose 115 mg/dL (74-106); Potassium 3.8 mmol/L (3.5-5.1); Protein, Total 7.3 g/dL (6.4-8.2); Sodium Level 139 mmol/L (136-145)
== END ==
PROVIDERS: PCP Family Medicine; Referring Provider Internal Medicine Rheumatology; Visit Provider Internal Medicine Rheumatology
DX: M06.09 Rheumatoid arthritis without rheumatoid factor, multiple sites (principal); Z79.899 Other long term (current) drug therapy; M79.7 Fibromyalgia; R76.8 Other specified abnormal immunological findings in serum; M25.511 Pain in right shoulder; M21.41 Flat foot [pes planus] (acquired), right foot; M47.897 Other spondylosis, lumbosacral region; H40.9 Unspecified glaucoma; K58.9 Irritable bowel syndrome, unspecified; F41.9 Anxiety disorder, unspecified; F32.9 Major depressive disorder, single episode, unspecified; G43.909 Migraine, unspecified, not intractable, without status migrainosus; E78.5 Hyperlipidemia, unspecified
CPT/HCPCS: 36415; 80053; 85025

== ENCOUNTER → 2020-12-03 13:50 | Outpatient (CLI) | payer MEDICARE, SELFPAY ==
[2020-12-03 15:00] LABS: Absolute Lymphocyte Count 3.42 X10^3/uL (0.83-4.51); Absolute Neutrophil Count 10.5 X10^3/uL (2.0-7.7); Basophil# 0.06 X10^3/uL; Basophil% 0.4 % (0-1); Eosinophil# 0.23 X10^3/uL; Eosinophils% 1.5 % (0-5); Hematocrit 39.8 % (37-47); Hemoglobin 12.6 g/dL (12.0-15.0); Lymphocyte # 3.42 X10^3/ul (0.83-4.51); Mean Corp Hgb Conc 31.7 g/dL (32-36); Mean Corpuscular Hgb 28.4 pg (27.0-32.0); Mean Corpuscular Volume 89.8 fL (81-99); Monocyte# 1.21 X10^3/uL; Monocyte% 7.8 % (0-10); NRBC Flagged by Analyzer 0 % (0-5); Neutrophil # 10.46 X10^3/uL (2.7-7.7); Neutrophil % 67.3 % (47-70); Platelet Count 348 K/mm3 (150-450); RBC Distribution Width CV 14.6 % (11.6-14.6); Red Blood Count 4.43 M/mm3 (4.2-5.4); White Blood Count 15.5 K/mm3 (4.4-11.0)
[2020-12-03 15:36] LABS: ALB/GLOB Ratio 1.1 RATIO (0.9-2.4); AST(SGOT) 22 U/L (15-37); Alanine Aminotransfer ALT/SGPT 30 U/L (13-56); Albumin, Serum 3.7 g/dL (3.2-5.0); Alkaline Phosphatase 86 U/L (45-117); Anion Gap 5 (5-15); BUN 18 mg/dL (7-18); BUN/Creat Ratio 16.7 RATIO (10-20); Calcium,Total 8.7 mg/dL (8.5-10.1); Chloride 107 mmol/L (98-107); Creatinine, Serum 1.08 mg/dL (0.55-1.02); EST Glomerular Filtration Rate 55 mL/min (>60); Est Glom Filt Rate - Afr Amer 66 mL/min (>60); Globulin 3.4 g/dL (2.2-4.2); Glucose 102 mg/dL (74-106); Potassium 3.9 mmol/L (3.5-5.1); Protein, Total 7.1 g/dL (6.4-8.2); Sodium Level 140 mmol/L (136-145)
== END ==
PROVIDERS: PCP Family Medicine; Referring Provider Internal Medicine Rheumatology; Visit Provider Internal Medicine Rheumatology
DX: M06.09 Rheumatoid arthritis without rheumatoid factor, multiple sites (principal); Z79.899 Other long term (current) drug therapy; M79.7 Fibromyalgia; M21.41 Flat foot [pes planus] (acquired), right foot; M47.897 Other spondylosis, lumbosacral region; H40.9 Unspecified glaucoma; K58.9 Irritable bowel syndrome, unspecified; F41.9 Anxiety disorder, unspecified; F32.9 Major depressive disorder, single episode, unspecified; G43.909 Migraine, unspecified, not intractable, without status migrainosus; E78.5 Hyperlipidemia, unspecified
CPT/HCPCS: 36415; 80053; 85025

== ENCOUNTER → 2021-02-19 15:27 | Outpatient (CLI) | payer MEDICARE, SELFPAY ==
[2021-02-19 18:11] LABS: Absolute Lymphocyte Count 3.19 X10^3/uL (0.83-4.51); Absolute Neutrophil Count 8.8 X10^3/uL (2.0-7.7); Basophil# 0.04 X10^3/uL; Basophil% 0.3 % (0-1); Eosinophil# 0.17 X10^3/uL; Eosinophils% 1.3 % (0-5); Hematocrit 41.3 % (37-47); Lymphocyte # 3.19 X10^3/ul (0.83-4.51); Lymphocyte % 24.2 % (19-41); Mean Corp Hgb Conc 31.5 g/dL (32-36); Mean Corpuscular Hgb 28.4 pg (27.0-32.0); Mean Corpuscular Volume 90.2 fL (81-99); Mean Platelet Vol. 11.6 fl (6.2-12.0); Monocyte# 0.93 X10^3/uL; NRBC Flagged by Analyzer 0 % (0-5); Neutrophil # 8.76 X10^3/uL (2.7-7.7); Neutrophil % 66.4 % (47-70); Platelet Count 379 K/mm3 (150-450); RBC Distribution Width CV 13.8 % (11.6-14.6); RBC Distribution Width SD 45.8 fl (35.1-43.9); Red Blood Count 4.58 M/mm3 (4.2-5.4); White Blood Count 13.2 K/mm3 (4.4-11.0)
[2021-02-19 18:50] LABS: ALB/GLOB Ratio 1.1 RATIO (0.9-2.4); AST(SGOT) 29 U/L (15-37); Alanine Aminotransfer ALT/SGPT 39 U/L (13-56); Albumin, Serum 3.9 g/dL (3.2-5.0); Alkaline Phosphatase 78 U/L (45-117); Anion Gap 9 (5-15); BUN 16 mg/dL (7-18); BUN/Creat Ratio 16.1 RATIO (10-20); Calcium,Total 8.9 mg/dL (8.5-10.1); Chloride 103 mmol/L (98-107); Creatinine, Serum 0.99 mg/dL (0.55-1.02); EST Glomerular Filtration Rate 60 mL/min (>60); Est Glom Filt Rate - Afr Amer 73 mL/min (>60); Globulin 3.6 g/dL (2.2-4.2); Glucose 126 mg/dL (74-106); Potassium 3.8 mmol/L (3.5-5.1); Protein, Total 7.5 g/dL (6.4-8.2); Sodium Level 137 mmol/L (136-145)
== END ==
PROVIDERS: PCP Family Medicine; Referring Provider Internal Medicine Rheumatology; Visit Provider Internal Medicine Rheumatology
DX: M06.09 Rheumatoid arthritis without rheumatoid factor, multiple sites (principal); Z79.899 Other long term (current) drug therapy; M79.7 Fibromyalgia; M21.41 Flat foot [pes planus] (acquired), right foot; M47.897 Other spondylosis, lumbosacral region; H40.9 Unspecified glaucoma; K58.9 Irritable bowel syndrome, unspecified; F41.9 Anxiety disorder, unspecified; F32.9 Major depressive disorder, single episode, unspecified; G43.909 Migraine, unspecified, not intractable, without status migrainosus; E78.5 Hyperlipidemia, unspecified
CPT/HCPCS: 36415; 80053; 85025

== ENCOUNTER → 2021-04-22 08:16 | Outpatient (CLI) | payer MEDICARE, SELFPAY ==
[2021-04-22 09:49] LABS: Absolute Lymphocyte Count 3.62 X10^3/uL (0.83-4.51); Absolute Neutrophil Count 10.4 X10^3/uL (2.0-7.7); Basophil# 0.06 X10^3/uL; Basophil% 0.4 % (0-1); Eosinophil# 0.08 X10^3/uL; Eosinophils% 0.5 % (0-5); Hematocrit 44.4 % (37-47); Lymphocyte # 3.62 X10^3/ul (0.83-4.51); Lymphocyte % 24.2 % (19-41); Mean Corp Hgb Conc 31.5 g/dL (32-36); Mean Corpuscular Hgb 27.8 pg (27.0-32.0); Mean Corpuscular Volume 88.1 fL (81-99); Mean Platelet Vol. 11.3 fl (6.2-12.0); Monocyte# 0.77 X10^3/uL; Monocyte% 5.1 % (0-10); NRBC Flagged by Analyzer 0 % (0-5); Neutrophil # 10.38 X10^3/uL (2.7-7.7); Neutrophil % 69.3 % (47-70); Platelet Count 389 K/mm3 (150-450); RBC Distribution Width CV 14.1 % (11.6-14.6); RBC Distribution Width SD 45.2 fl (35.1-43.9); Red Blood Count 5.04 M/mm3 (4.2-5.4)
[2021-04-22 10:33] LABS: AST(SGOT) 14 U/L (15-37); Alanine Aminotransfer ALT/SGPT 23 U/L (13-56); Albumin, Serum 3.8 g/dL (3.2-5.0); Alkaline Phosphatase 81 U/L (45-117); Anion Gap 7 (5-15); BUN 22 mg/dL (7-18); BUN/Creat Ratio 22.7 RATIO (10-20); Chloride 103 mmol/L (98-107); Creatinine, Serum 0.97 mg/dL (0.55-1.02); EST Glomerular Filtration Rate 62 mL/min (>60); Est Glom Filt Rate - Afr Amer 75 mL/min (>60); Globulin 3.9 g/dL (2.2-4.2); Glucose 93 mg/dL (74-106); Potassium 4.1 mmol/L (3.5-5.1); Protein, Total 7.7 g/dL (6.4-8.2); Sodium Level 138 mmol/L (136-145)
== END ==
PROVIDERS: PCP Family Medicine; Referring Provider Internal Medicine Rheumatology; Visit Provider Internal Medicine Rheumatology
DX: M06.09 Rheumatoid arthritis without rheumatoid factor, multiple sites (principal); Z79.899 Other long term (current) drug therapy; M79.7 Fibromyalgia; M21.41 Flat foot [pes planus] (acquired), right foot; M47.897 Other spondylosis, lumbosacral region; H40.9 Unspecified glaucoma; K58.9 Irritable bowel syndrome, unspecified; F41.9 Anxiety disorder, unspecified; F32.9 Major depressive disorder, single episode, unspecified; E78.5 Hyperlipidemia, unspecified; G43.909 Migraine, unspecified, not intractable, without status migrainosus
CPT/HCPCS: 36415; 80053; 85025

== ENCOUNTER 2021-09-17 08:16 | Outpatient (CLI) | payer MEDICARE, SELFPAY ==
[2021-09-17 10:22] LABS: Absolute Lymphocyte Count 3.55 X10^3/uL (0.83-4.51); Absolute Neutrophil Count 7.7 X10^3/uL (2.0-7.7); Basophil# 0.05 X10^3/uL; Basophil% 0.4 % (0-1); Eosinophil# 0.06 X10^3/uL; Eosinophils% 0.5 % (0-5); Hematocrit 38.2 % (37-47); Hemoglobin 12.3 g/dL (12.0-15.0); Lymphocyte # 3.55 X10^3/ul (0.83-4.51); Lymphocyte % 28.9 % (19-41); Mean Corp Hgb Conc 32.2 g/dL (32-36); Mean Corpuscular Hgb 28.4 pg (27.0-32.0); Mean Corpuscular Volume 88.2 fL (81-99); Monocyte# 0.83 X10^3/uL; Monocyte% 6.8 % (0-10); NRBC Flagged by Analyzer 0 % (0-5); Neutrophil # 7.69 X10^3/uL (2.7-7.7); Neutrophil % 62.6 % (47-70); Platelet Count 275 K/mm3 (150-450); RBC Distribution Width CV 13.9 % (11.6-14.6); RBC Distribution Width SD 44.9 fl (35.1-43.9); Red Blood Count 4.33 M/mm3 (4.2-5.4); White Blood Count 12.3 K/mm3 (4.4-11.0)
[2021-09-17 10:36] LABS: ALB/GLOB Ratio 1.2 RATIO (0.9-2.4); AST(SGOT) 20 U/L (15-37); Alanine Aminotransfer ALT/SGPT 26 U/L (13-56); Albumin, Serum 3.7 g/dL (3.2-5.0); Alkaline Phosphatase 83 U/L (45-117); Anion Gap 8 (5-15); BUN 18 mg/dL (7-18); BUN/Creat Ratio 22.2 RATIO (10-20); Calcium,Total 8.9 mg/dL (8.5-10.1); Chloride 104 mmol/L (98-107); Creatinine, Serum 0.81 mg/dL (0.55-1.02); EST Glomerular Filtration Rate 76 mL/min (>60); Est Glom Filt Rate - Afr Amer 91 mL/min (>60); Globulin 3.1 g/dL (2.2-4.2); Glucose 99 mg/dL (74-106); Potassium 4.4 mmol/L (3.5-5.1); Protein, Total 6.8 g/dL (6.4-8.2); Sodium Level 137 mmol/L (136-145)
== END 2021-09-17 23:59 | disposition home or self-care (01) ==
LOC: MTLAB 08:18
PROVIDERS: PCP Family Medicine; Referring Provider Internal Medicine Rheumatology; Visit Provider Internal Medicine Rheumatology
DX: M06.09 Rheumatoid arthritis without rheumatoid factor, multiple sites (principal); Z79.899 Other long term (current) drug therapy; M79.7 Fibromyalgia; M25.572 Pain in left ankle and joints of left foot; M47.897 Other spondylosis, lumbosacral region; M21.41 Flat foot [pes planus] (acquired), right foot; H40.9 Unspecified glaucoma; K58.9 Irritable bowel syndrome, unspecified; F41.9 Anxiety disorder, unspecified; F32.A Depression, unspecified; G43.909 Migraine, unspecified, not intractable, without status migrainosus; E78.5 Hyperlipidemia, unspecified
CPT/HCPCS: 36415; 80053; 85025

== ENCOUNTER → 2021-12-10 | Outpatient (CLI) | payer MEDICARE, SELFPAY ==
[2021-12-10 10:04] LABS: Absolute Lymphocyte Count 3.94 X10^3/uL (0.83-4.51); Absolute Neutrophil Count 4.5 X10^3/uL (2.0-7.7); Basophil# 0.07 X10^3/uL; Basophil% 0.7 % (0-1); Eosinophil# 0.29 X10^3/uL; Hematocrit 41.2 % (37-47); Lymphocyte # 3.94 X10^3/ul (0.83-4.51); Lymphocyte % 40.6 % (19-41); Mean Corp Hgb Conc 31.6 g/dL (32-36); Mean Corpuscular Hgb 28.1 pg (27.0-32.0); Mean Platelet Vol. 10.7 fl (6.2-12.0); Monocyte# 0.75 X10^3/uL; Monocyte% 7.7 % (0-10); NRBC Flagged by Analyzer 0 % (0-5); Neutrophil # 4.54 X10^3/uL (2.7-7.7); Neutrophil % 46.9 % (47-70); Platelet Count 338 K/mm3 (150-450); RBC Distribution Width CV 13.5 % (11.6-14.6); RBC Distribution Width SD 44.1 fl (35.1-43.9); Red Blood Count 4.63 M/mm3 (4.2-5.4); White Blood Count 9.7 K/mm3 (4.4-11.0)
[2021-12-10 10:27] LABS: AST(SGOT) 25 U/L (15-37); Alanine Aminotransfer ALT/SGPT 32 U/L (13-56); Albumin, Serum 3.7 g/dL (3.2-5.0); Alkaline Phosphatase 81 U/L (45-117); Anion Gap 7 (5-15); BUN 14 mg/dL (7-18); BUN/Creat Ratio 13.7 RATIO (10-20); Calcium,Total 8.9 mg/dL (8.5-10.1); Chloride 106 mmol/L (98-107); Creatinine, Serum 1.02 mg/dL (0.55-1.02); EST Glomerular Filtration Rate 58 mL/min (>60); Est Glom Filt Rate - Afr Amer 70 mL/min (>60); Globulin 3.7 g/dL (2.2-4.2); Glucose 101 mg/dL (74-106); Potassium 3.9 mmol/L (3.5-5.1); Protein, Total 7.4 g/dL (6.4-8.2); Sodium Level 137 mmol/L (136-145)
== END | disposition home or self-care (01) ==
LOC: MTLAB 08:09
PROVIDERS: PCP Family Medicine; Referring Provider Internal Medicine Rheumatology; Visit Provider Internal Medicine Rheumatology
DX: M06.09 Rheumatoid arthritis without rheumatoid factor, multiple sites (principal); E11.9 Type 2 diabetes mellitus without complications; Z79.899 Other long term (current) drug therapy; M79.7 Fibromyalgia; M25.572 Pain in left ankle and joints of left foot; M47.897 Other spondylosis, lumbosacral region; M21.41 Flat foot [pes planus] (acquired), right foot; H40.9 Unspecified glaucoma; K58.9 Irritable bowel syndrome, unspecified; F41.9 Anxiety disorder, unspecified; F32.9 Major depressive disorder, single episode, unspecified; G43.909 Migraine, unspecified, not intractable, without status migrainosus; E78.5 Hyperlipidemia, unspecified
CPT/HCPCS: 36415; 80053; 85025

== ENCOUNTER → 2021-12-22 | Outpatient (CLI) | payer MEDICARE, SELFPAY ==
--- NOTE | 2021-12-22 15:35 | RAD_ITS ---
STUDY: CERVICAL SPINE X-RAY SERIES OF 1544 HOURS ON 12/22/2021 REASON FOR EXAM: 61-year-old female with neck pain. TECHNIQUE: 4 view(s) of the cervical spine were obtained. COMPARISON: None FINDINGS: Mild demineralization. No vertebral body fractures. No subluxations. Marked narrowing of the C5-6 intervertebral disc space with moderate anterior osteophytic degenerative changes. Normal posterior elements. No other significant arthritic or degenerative changes. Intact odontoid and normal appearing atlantoaxial joint. RAD/Cerv Spine 2 or 3 Views IMPRESSION: 1. No vertebral body fractures or subluxations. 2. Mild demineralization. 3. Marked narrowing of the C5-6 intervertebral disc space with moderate anterior osteophytic degenerative changes. 4. Intact odontoid and posterior elements. 5. No other significant abnormalities. Electronically Signed: Devin Lugo MD at 2:37 EDT ,
== END | disposition home or self-care (01) ==
LOC: RAD 15:30
PROVIDERS: PCP Family Medicine; Visit Provider Anesthesiology Pain Medicine
DX: M50.30 Other cervical disc degeneration, unspecified cervical region (principal)
CPT/HCPCS: 72040

== ENCOUNTER → 2022-01-10 | Outpatient (CLI) | payer MEDICARE, SELFPAY ==
--- NOTE | 2022-01-10 10:27 | STRESSREP ---
Stress Test Report Pharmacologic myocardial perfusion stress test. 61-year-old lady with a history of chest pain. Resting EKG demonstrates normal sinus rhythm with a rate of 86 bpm normal intervals are noted resting blood pressure is 148/82 mmHg. 0.4 mg of regadenoson was infused per usual protocol followed by rapid intravenous saline flush injection continuous EKG monitoring was performed. The maximum heart rate attained was 104 bpm which was 66% of max impacted heart rate the maximum workload was 1 metabolic equivalent. At rest there were no ST or T wave changes noted to suggest abnormal flow reserve and at peak infusion nonspecific ST changes were noted with did not meet the criteria for ischemia. No clinical angina was noted. Myocardial perfusion protocol. 14.8 mCi of technetium 99m sestamibi was injected at rest. 0.4 mg of regadenoson was infused per usual protocol. At peak infusion 44.6 mCi of technetium 99m sestamibi was injected stress images were obtained stress and rest images were reconstructed and compared in the short axis vertical long and horizontal long axis. Gated images were also obtained to Perfusion SPECT analysis: Review of the images demonstrate normal uptake of tracer noted in all areas of the myocardium. The resting images similar demonstrate normal uptake of tracer noted in all areas of the myocardium. No areas of reversibility are noted to suggest ischemia and no previous infarct is noted. Gated SPECT analysis: The gated ejection fraction is 84%. Conclusion: Normal pharmacologic myocardial perfusion stress test. Preserved ejection fraction.
== END | disposition home or self-care (01) ==
LOC: CVS 06:55
PROVIDERS: PCP Family Medicine; Referring Provider Family Medicine; Visit Provider Family Medicine
DX: R07.89 Other chest pain (principal); M79.602 Pain in left arm
CPT/HCPCS: 78452; 93017; A9500; A4216; J2785

== ENCOUNTER → 2022-03-11 | Outpatient (CLI) | payer MEDICARE, SELFPAY ==
[2022-03-11 10:03] LABS: Absolute Lymphocyte Count 3.26 X10^3/uL (0.83-4.51); Absolute Neutrophil Count 5.1 X10^3/uL (2.0-7.7); Basophil# 0.04 X10^3/uL; Basophil% 0.4 % (0-1); Eosinophil# 0.21 X10^3/uL; Eosinophils% 2.3 % (0-5); Hematocrit 38.8 % (37-47); Hemoglobin 12.3 g/dL (12.0-15.0); Lymphocyte # 3.26 X10^3/ul (0.83-4.51); Lymphocyte % 35.3 % (19-41); Mean Corp Hgb Conc 31.7 g/dL (32-36); Mean Corpuscular Hgb 29.1 pg (27.0-32.0); Mean Corpuscular Volume 91.9 fL (81-99); Mean Platelet Vol. 11.4 fl (6.2-12.0); Monocyte# 0.59 X10^3/uL; Monocyte% 6.4 % (0-10); NRBC Flagged by Analyzer 0 % (0-5); Neutrophil # 5.09 X10^3/uL (2.7-7.7); Neutrophil % 55.1 % (47-70); Platelet Count 285 K/mm3 (150-450); RBC Distribution Width CV 14.6 % (11.6-14.6); RBC Distribution Width SD 50.2 fl (35.1-43.9); Red Blood Count 4.22 M/mm3 (4.2-5.4); White Blood Count 9.2 K/mm3 (4.4-11.0)
[2022-03-11 10:56] LABS: AST(SGOT) 21 U/L (15-37); Alanine Aminotransfer ALT/SGPT 27 U/L (13-56); Albumin, Serum 3.6 g/dL (3.2-5.0); Alkaline Phosphatase 62 U/L (45-117); Anion Gap 9 (5-15); BUN 18 mg/dL (7-18); BUN/Creat Ratio 16.7 RATIO (10-20); Calcium,Total 9.5 mg/dL (8.5-10.1); Chloride 106 mmol/L (98-107); Creatinine, Serum 1.08 mg/dL (0.55-1.02); EST Glomerular Filtration Rate 54 mL/min (>60); Est Glom Filt Rate - Afr Amer 66 mL/min (>60); Globulin 3.7 g/dL (2.2-4.2); Glucose 93 mg/dL (74-106); Potassium 4.1 mmol/L (3.5-5.1); Protein, Total 7.3 g/dL (6.4-8.2); Sodium Level 141 mmol/L (136-145)
== END | disposition home or self-care (01) ==
LOC: MTLAB 08:09
PROVIDERS: PCP Family Medicine; Referring Provider Internal Medicine Rheumatology; Visit Provider Internal Medicine Rheumatology
DX: M06.09 Rheumatoid arthritis without rheumatoid factor, multiple sites (principal); E11.9 Type 2 diabetes mellitus without complications; Z79.899 Other long term (current) drug therapy; M79.7 Fibromyalgia; M25.572 Pain in left ankle and joints of left foot; M47.897 Other spondylosis, lumbosacral region; M21.41 Flat foot [pes planus] (acquired), right foot; H40.9 Unspecified glaucoma; K58.9 Irritable bowel syndrome, unspecified; F41.9 Anxiety disorder, unspecified; F32.A Depression, unspecified; G43.909 Migraine, unspecified, not intractable, without status migrainosus; E78.5 Hyperlipidemia, unspecified
CPT/HCPCS: 36415; 80053; 85025

== ENCOUNTER → 2022-07-06 | Outpatient (CLI) | payer MEDICARE, SELFPAY ==
[2022-07-06 10:19] LABS: Absolute Lymphocyte Count 3.31 X10^3/uL (0.83-4.51); Absolute Neutrophil Count 4.5 X10^3/uL (2.0-7.7); Basophil# 0.03 X10^3/uL; Basophil% 0.3 % (0-1); Eosinophil# 0.19 X10^3/uL; Eosinophils% 2.2 % (0-5); Hematocrit 36.2 % (37-47); Hemoglobin 11.6 g/dL (12.0-15.0); Lymphocyte # 3.31 X10^3/ul (0.83-4.51); Mean Corpuscular Hgb 28.9 pg (27.0-32.0); Mean Platelet Vol. 11.4 fl (6.2-12.0); Monocyte% 6.9 % (0-10); NRBC Flagged by Analyzer 0 % (0-5); Neutrophil # 4.51 X10^3/uL (2.7-7.7); Neutrophil % 51.9 % (47-70); Platelet Count 307 K/mm3 (150-450); RBC Distribution Width CV 13.3 % (11.6-14.6); RBC Distribution Width SD 43.9 fl (35.1-43.9); Red Blood Count 4.02 M/mm3 (4.2-5.4); White Blood Count 8.7 K/mm3 (4.4-11.0)
[2022-07-06 10:45] LABS: ALB/GLOB Ratio 1.3 RATIO (0.9-2.4); AST(SGOT) 18 U/L (15-37); Alanine Aminotransfer ALT/SGPT 25 U/L (13-56); Albumin, Serum 3.7 g/dL (3.2-5.0); Alkaline Phosphatase 55 U/L (45-117); Anion Gap 7 (5-15); BUN 16 mg/dL (7-18); BUN/Creat Ratio 14.5 RATIO (10-20); Calcium,Total 9.1 mg/dL (8.5-10.1); Chloride 106 mmol/L (98-107); EST Glomerular Filtration Rate 53 mL/min (>60); Est Glom Filt Rate - Afr Amer 64 mL/min (>60); Globulin 2.9 g/dL (2.2-4.2); Glucose 96 mg/dL (74-106); Potassium 4.3 mmol/L (3.5-5.1); Protein, Total 6.6 g/dL (6.4-8.2); Sodium Level 140 mmol/L (136-145)
== END | disposition home or self-care (01) ==
LOC: MTLAB 08:38
PROVIDERS: PCP Family Medicine; Referring Provider Internal Medicine Rheumatology; Visit Provider Internal Medicine Rheumatology
DX: Z79.899 Other long term (current) drug therapy (principal); M06.09 Rheumatoid arthritis without rheumatoid factor, multiple sites
CPT/HCPCS: 36415; 80053; 85025

== ENCOUNTER → 2022-07-13 | Outpatient (CLI) | payer MEDICARE, SELFPAY ==
[2022-07-13 17:19] LABS: Amphetamine Urine VISTA NEGATIVE (<1000 ng/mL); Barbiturate Urine VISTA NEGATIVE (< 200 ng/mL); Benzodiazepine Urine VISTA NEGATIVE (< 200 ng/mL); Cocaine Urine VISTA NEGATIVE (< 300 ng/mL); Ecstacy Urine VISTA NEGATIVE (< 500 ng/mL); Methadone Urine VISTA NEGATIVE (< 300 ng/mL); PCP Urine VISTA NEGATIVE (< 25 ng/mL); THC Urine VISTA NEGATIVE (< 50 ng/mL); Vista UDS pH Range 4
== END | disposition home or self-care (01) ==
LOC: LAB 16:46
PROVIDERS: PCP Family Medicine; Referring Provider Anesthesiology Pain Medicine; Visit Provider Anesthesiology Pain Medicine
DX: F11.20 Opioid dependence, uncomplicated (principal)
CPT/HCPCS: 80307

== ENCOUNTER 2022-08-26 11:22 | Day surgery (SDC) | payer MEDICARE, SELFPAY ==
[2022-08-26] MEDS: Lactated Ringers 1,000 ML 15 ML IV (11:58)
[2022-08-26 12:02] VITALS: BP 106/63; PULSE 89; RESP 17; TEMP 37.1; O2SAT 98; BMI 40.6
--- NOTE | 2022-08-26 12:54 | HP.PCM_ITS ---
HPI - General General Date of Admission: 08/26/22 Date of Service: 08/26/22 Chief Complaint: left foot pain HPI Narrative ZACKERY NUNEZ, is a 62 F who presents with complaint of left foot pain, most severe along the navicular cuneiform joint. she has been seen by me in my outpatient clinic. she has xrays that show severe arthritis. she was given order for orthotics but has yet to get. she has been using boot and this does help although she has noticed it is starting to rub on the side of her foot. she denies any open wounds currently [facility] Medical History (Updated 08/26/22 @ 13:[address] Noe Muniz, DP) Back pain Bulging discs Chest pain Diabetes Fibromyalgia Gastric reflux Glaucoma Heartburn High cholesterol History of edema History of pain when walking History of rheumatic fever History of steroid therapy History of stress test IBS (irritable bowel syndrome) Injury of head and neck Leg cramps Low iron Marijuana use Migraine headache Non-smoker Post-menopausal Rheumatoid arthritis Walker as ambulation aid Wears glasses Home Medications atorvastatin 10 mg tablet 10 mg PO QHS cholestorol 05/14/14 [History Last Taken 08/25/22] citalopram 40 mg tablet 60 mg PO DAILY anxiety 05/14/14 [History Last Taken 08/25/22] cyclobenzaprine 10 mg tablet 10 mg PO TID PRN Spasms 05/14/14 [History Last Taken 08/25/22] latanoprost 0.005 % eye drops 1 drp EACH EYE QHS glaucoma 05/14/14 [History Last Taken 08/25/22] prednisone 10 mg tablet 10 mg PO PRN PRN flare up 05/14/14 [History Last Taken 08/25/22] sumatriptan succinate 50 mg tablet 50 mg PO .X1 PRN PRN Headache 05/14/14 [History Last Taken 08/25/22] promethazine 25 mg rectal suppository 25 mg PO PRN PRN Nausea 12/17/14 [History Last Taken 08/25/22] hyoscyamine sulfate 0.125 mg sublingual tablet 0.125 mg SL Q4H PRN PRN Nausea 04/20/16 [History Last Taken 08/25/22] oxycodone-acetaminophen 7.5 mg-325 mg tablet 1 tab PO TID pain 04/20/16 [History Last Taken 08/25/22] buspirone 30 mg tablet 30 mg PO BID anxiety 12/20/17 [History Last Taken 08/25/22] amitriptyline 10 mg tablet 10 mg PO QHS 03/25/20 [History Last Taken 08/25/22] buprenorphine 15 mcg/hour weekly transdermal patch 1 patch topical QWEEK 03/25/20 [History Last Taken 08/25/22] gabapentin 300 mg capsule 300 mg PO .four times per day 03/25/20 [History Last Taken 08/25/22] omeprazole 20 mg capsule,delayed release 40 mg PO DAILY 03/25/20 [History Last Taken 08/25/22] upadacitinib 15 mg tablet,extended release 24 hr (Rinvoq) 15 mg PO DAILY 03/25/20 [History Last Taken 08/25/22] lisinopril 10 mg tablet 10 mg PO DAILY 08/18/22 [History Last Taken 08/26/22] metformin 500 mg tablet,extended release 24 hr 500 mg PO DAILY 08/18/22 [History Last Taken 08/25/22] Allergy/AdvReac Type Severity Reaction Status Date / Time adalimumab [From Humira] Allergy Vomiting Verified 08/26/22 12:08 cefaclor [From Ceclor] Allergy Unknown Verified 08/26/22 12:08 celecoxib [From Celebrex] Allergy Itching Verified 08/26/22 12:08 doxepin [Doxepin] Allergy Unknown Verified 08/26/22 12:08 doxycycline calcium Allergy Unknown Verified 08/26/22 12:08 [From Vibramycin] doxycycline hyclate Allergy Unknown Verified 08/26/22 12:08 [From Vibramycin] doxycycline monohydrate Allergy Unknown Verified 08/26/22 12:08 [From Vibramycin] hydrocodone bitartrate Allergy Unknown Verified 08/26/22 12:08 [From Vicodin] hydroxychloroquine Allergy Shortness Verified 08/26/22 12:08 [Hydroxychloroquine] of breath leflunomide [From Arava] Allergy Other Verified 08/26/22 12:08 prochlorperazine Allergy Shortness Verified 08/26/22 12:08 [From Compazine] of breath prochlorperazine edisylate Allergy Shortness Verified 08/26/22 12:08 [From Compazine] of breath prochlorperazine maleate Allergy Shortness Verified 08/26/22 12:08 [From Compazine] of breath sulfamethoxazole Allergy Unknown Verified 08/26/22 12:08 [From Septra] terfenadine [From Seldane] Allergy Unknown Verified 08/26/22 12:08 trazodone Allergy Other Verified 08/26/22 12:08 trimethoprim [From Septra] Allergy Unknown Verified 08/26/22 12:08 clarithromycin [From Biaxin] AdvReac Vomiting Verified 08/26/22 12:08 colestipol AdvReac Other Verified 08/26/22 12:08 dicyclomine HCl [From Bentyl] AdvReac Nausea/Vom/ Verified 08/26/22 12:08 Diarrhea doxycycline [From Vibramycin] AdvReac Nausea Verified 08/26/22 12:08 fentanyl AdvReac Nausea Verified 08/26/22 12:08 fexofenadine HCl AdvReac Other Verified 08/26/22 12:08 [From Jessica] golimumab [From Simponi] AdvReac Other Verified 08/26/22 12:08 hydrocodone AdvReac Vomiting Verified 08/26/22 12:08 hydroxychloroquine sulfate AdvReac Nausea Verified 08/26/22 12:08 [From Plaquenil] levofloxacin [From Levaquin] AdvReac Other Verified 08/26/22 12:08 methotrexate AdvReac Upset Verified 08/26/22 12:08 Stomach Sulfa (Sulfonamide AdvReac Vomiting Verified 08/26/22 12:08 Antibiotics) TRINILLIN Allergy Unknown Uncoded 08/26/22 12:08 Family History (Updated 03/25/20 @ 13:12 by Aster Zafar) Mother Myocardial infarction Father Myocardial infarction Cancer Sister H/O Sjogren's disease Surgical History (Updated 03/25/20 @ 13:40 by Aster Zafar) H/O tubal ligation History of appendectomy History of arthroscopic knee surgery History of cholecystectomy Total knee replacement status Social History (Updated 05/27/20 @ 13:[address] Rajinder Pantoja, DO) household members: spouse housing: house pets and animals: Yes Smoking Status: Never smoker alcohol intake: never what type of physical activity do you participate in: none do you feel safe at home: Yes Vital Signs Vital Signs Vital Signs: 08/26/22 12:02 08/26/22 12:02 Temperature 98.8 F Temperature Source Temporal Pulse Rate 89 Respiratory Rate 17 Respiratory Pattern Normal Blood Pressure 106/63 Blood Pressure Mean 77 Blood Pressure Source Monitor Blood Pressure Position Semi-Fowlers Blood Pressure Location Left Arm Pulse Ox 98 Oxygen Delivery Method Room Air Weight Weight: 110.7 kg Body Mass Index (BMI) 40.6 Physical Exam Narrative patient is alert and orientated x 3. she does not appear in any distress. Vascular: DP and PT pulses are palpable to left foot. CFT is brisk. Skin temperature is warm to warm. Derm: no open sores are noted. there is pressure irritation along the lateral a spet of left 5th metatarsal but no open sores or signs of infection are present m/s: there is pain to palpation of the left navicular cuneiform joint. the pain is along the dorsal medial and dorsal aspect of navicular cun joint. xrays reviewed from [facility] demonstrate midfoot arthirtis most severe at navicular cun joint. Const alert, oriented x3 and no apparent distress General Appearance: cooperative, comfortable and well kempt Orientation / Consciousness: awake and oriented to person Assessment & Plan Assessment/Plan (1) Arthritis of foot: PLAN: patient has been examined and we have discussed her pain in left midfoot. she has been treated with boot, inserts that have been ordered but she has yet to make an appoirntment for fitting. she does take tylenol but continues to have pain. I discussed proceeding with injection. an injection may help to lessen her discomfort. an injection does carry risk of infection, bleeding, injury to cartilage, injury to ligament, injury to tendon. I discussed various ways of injecting not limited to xray guide vs ultrasounic guide. she has elected to proceed with xray guide. she understands risk. she undertands that this may not resolve her pain. She also understands that she could be at risk of worsening. she consents to proceed with injection fo left navicular cun joint I reviewed past xrays of left foot. she has stable arthritic change, no evidence of charcot. of note, she has noticed the boot is starting to rub on the 5th metatarsal. I see no open sores or signs of infection. she wishes to proceed with injection today..
[2022-08-26 13:00] LABS: Bedside Glucose 90 mg/dL (74-106)
[2022-08-26 13:43] VITALS: BP 101/63; BP 106/63; PULSE 78; RESP 18; TEMP 37.1; O2SAT 92
--- NOTE | 2022-08-26 13:44 | DCINST_ITS ---
Discharge Instructions Diet Discharge Diet: No restrictions Activity Discharge Activity: Return to Normal Activity Return to work on:: 08/29/22 May shower in (days): 0 May resume sexual activity in: No Restrictions Weight Bearing Status: Weight bearing as tolerated Dressing / Incision Additional Dressing/Incision Instructions:: apply cream to left foot to help resolve rash of left foot Follow Up Care Test Results: Test results from this visit will be discussed in further detail at your follow- up appointment, if applicable. Discharge Plan Admission Primary Reason for Your Visit: injection of left foot Attending Provider: Noe Muniz Primary Care Provider: David Parks Discharge Orders/Prescriptions Prescriptions: No Action omeprazole 20 mg capsule,delayed release(DR/EC) 40 mg PO DAILY Label Comments: TAKE 1 CAPSULE BY MOUTH TWICE DAILY. TAKE WITH NAPROXEN buprenorphine 15 mcg/hour patch weekly 1 patch TOPICAL QWEEK Rx Instructions: CHANGED ON MONDAY Rinvoq 15 mg tablet extended release 24 hr 15 mg PO DAILY gabapentin 300 mg capsule 300 mg PO .four times per day amitriptyline 10 mg tablet 10 mg PO QHS cyclobenzaprine 10 MG tablet 10 mg PO TID PRN (Reason: Spasms) Label Comments: muscle relaxer citalopram 40 MG tablet 60 mg PO DAILY Label Comments: depression atorvastatin 10 MG tablet 10 mg PO QHS Label Comments: cholesterol latanoprost 1 DROP bottle 1 drp EACH EYE QHS Label Comments: glaucoma prednisone 10 MG tablet 10 mg PO PRN PRN (Reason: flare up) Label Comments: take for 3-5 days RA has not taken for several months Rx Instructions: take for 3-5 days for RA flare sumatriptan succinate 50 MG tablet 50 mg PO .X1 PRN PRN (Reason: Headache) Label Comments: RA promethazine 25 MG suppository 25 mg PO PRN PRN (Reason: Nausea) Label Comments: nausea hyoscyamine sulfate 0.125 MG tablet, sublingual 0.125 mg SL Q4H PRN PRN (Reason: Nausea) oxycodone-acetaminophen 1 EACH tablet 1 tab PO TID buspirone 30 MG tablet 30 mg PO BID lisinopril 10 mg tablet 10 mg PO DAILY metformin 500 mg tablet extended release 24 hr 500 mg PO DAILY Referrals / Follow Up: David Parks MD [Primary Care Provider] - Disposition Disposition (needs filled in before D/C Order can be placed): Home, Self Care
[2022-08-26 13:45] VITALS: BP 106/63; BP 80/68; PULSE 78; RESP 18; O2SAT 97
[2022-08-26 14:00] VITALS: BP 106/63; BP 98/58; PULSE 78; RESP 18; O2SAT 98
[2022-08-26 14:07] VITALS: BP 106/63; BP 95/55; PULSE 75; RESP 18; TEMP 37.4; O2SAT 96
--- NOTE | 2022-08-26 14:22 | SUR.PHASEII ---
due to rash on pt's operative foot, no surgery preformed.
[2022-08-26 14:25] VITALS: BP 106/63
== END 2022-08-26 14:30 | disposition home or self-care (01) ==
LOC: SDC 11:23 → AC 11:24
PROVIDERS: PCP Family Medicine; Referring Provider Podiatrist Foot & Ankle Surgery; Visit Provider Podiatrist Foot & Ankle Surgery
PROC: (CPT 20605; principal; 2022-08-26 12:55)
DX: M79.672 Pain in left foot (principal); E11.9 Type 2 diabetes mellitus without complications; Z53.09 Procedure and treatment not carried out because of other contraindication; R21 Rash and other nonspecific skin eruption; Z79.84 Long term (current) use of oral hypoglycemic drugs; M79.7 Fibromyalgia; E78.00 Pure hypercholesterolemia, unspecified; K21.9 Gastro-esophageal reflux disease without esophagitis
CPT/HCPCS: 82962; J7120

== ENCOUNTER → 2022-10-03 | Outpatient (CLI) | payer MEDICARE, SELFPAY ==
[2022-10-03 09:55] LABS: Absolute Neutrophil Count 3.2 X10^3/uL (2.0-7.7); Basophil# 0.04 X10^3/uL; Basophil% 0.4 % (0-1); Eosinophil# 0.17 X10^3/uL; Eosinophils% 1.9 % (0-5); Hematocrit 39.1 % (37-47); Hemoglobin 12.3 g/dL (12.0-15.0); Lymphocyte % 56.3 % (19-41); Mean Corp Hgb Conc 31.5 g/dL (32-36); Mean Corpuscular Hgb 28.9 pg (27.0-32.0); Mean Platelet Vol. 10.4 fl (6.2-12.0); Monocyte# 0.54 X10^3/uL; NRBC Flagged by Analyzer 0 % (0-5); Neutrophil # 3.16 X10^3/uL (2.7-7.7); Neutrophil % 34.8 % (47-70); POSITIVE DIFFERENTIAL YES; Platelet Count 344 K/mm3 (150-450); RBC Distribution Width CV 12.4 % (11.6-14.6); RBC Distribution Width SD 41.1 fl (35.1-43.9); Red Blood Count 4.25 M/mm3 (4.2-5.4); White Blood Count 9.1 K/mm3 (4.4-11.0)
[2022-10-03 10:03] LABS: Differential Indicated SCAN CRITERIA MET
[2022-10-03 10:17] LABS: ALB/GLOB Ratio 1.1 RATIO (0.9-2.4); AST(SGOT) 23 U/L (15-37); Alanine Aminotransfer ALT/SGPT 25 U/L (13-56); Albumin, Serum 3.8 g/dL (3.2-5.0); Alkaline Phosphatase 75 U/L (45-117); Anion Gap 4 (5-15); BUN 17 mg/dL (7-18); BUN/Creat Ratio 15.5 RATIO (10-20); Calcium,Total 9.2 mg/dL (8.5-10.1); Chloride 103 mmol/L (98-107); EST Glomerular Filtration Rate 53 mL/min (>60); Est Glom Filt Rate - Afr Amer 64 mL/min (>60); Globulin 3.6 g/dL (2.2-4.2); Glucose 92 mg/dL (74-106); Potassium 3.7 mmol/L (3.5-5.1); Protein, Total 7.4 g/dL (6.4-8.2); Sodium Level 135 mmol/L (136-145)
[2022-10-03 10:50] LABS: Differential Comment SCANNED
== END | disposition home or self-care (01) ==
LOC: MTLAB 08:01
PROVIDERS: PCP Family Medicine; Referring Provider Internal Medicine Rheumatology; Visit Provider Internal Medicine Rheumatology
DX: M06.09 Rheumatoid arthritis without rheumatoid factor, multiple sites (principal); E11.9 Type 2 diabetes mellitus without complications; Z79.899 Other long term (current) drug therapy; M79.7 Fibromyalgia; M25.572 Pain in left ankle and joints of left foot; M47.897 Other spondylosis, lumbosacral region; M21.41 Flat foot [pes planus] (acquired), right foot; H40.9 Unspecified glaucoma; K58.9 Irritable bowel syndrome, unspecified; F41.9 Anxiety disorder, unspecified; F32.9 Major depressive disorder, single episode, unspecified; G43.909 Migraine, unspecified, not intractable, without status migrainosus; E78.5 Hyperlipidemia, unspecified
CPT/HCPCS: 36415; 80053; 85025

== ENCOUNTER → 2022-12-26 | Outpatient (CLI) | payer MEDICARE, SELFPAY ==
[2022-12-26 10:00] LABS: Absolute Lymphocyte Count 4.56 X10^3/uL (0.83-4.51); Absolute Neutrophil Count 3.1 X10^3/uL (2.0-7.7); Basophil# 0.04 X10^3/uL; Basophil% 0.5 % (0-1); Eosinophil# 0.14 X10^3/uL; Eosinophils% 1.7 % (0-5); Hematocrit 39.5 % (37-47); Hemoglobin 12.5 g/dL (12.0-15.0); Lymphocyte # 4.56 X10^3/ul (0.83-4.51); Lymphocyte % 54.1 % (19-41); Mean Corp Hgb Conc 31.6 g/dL (32-36); Mean Corpuscular Hgb 28.5 pg (27.0-32.0); Mean Platelet Vol. 11.9 fl (6.2-12.0); Monocyte# 0.58 X10^3/uL; Monocyte% 6.9 % (0-10); NRBC Flagged by Analyzer 0 % (0-5); Neutrophil # 3.09 X10^3/uL (2.7-7.7); Neutrophil % 36.6 % (47-70); Platelet Count 250 K/mm3 (150-450); RBC Distribution Width CV 13.3 % (11.6-14.6); RBC Distribution Width SD 43.8 fl (35.1-43.9); Red Blood Count 4.39 M/mm3 (4.2-5.4); White Blood Count 8.4 K/mm3 (4.4-11.0)
[2022-12-26 10:42] LABS: AST(SGOT) 22 U/L (15-37); Alanine Aminotransfer ALT/SGPT 19 U/L (13-56); Albumin, Serum 3.7 g/dL (3.2-5.0); Alkaline Phosphatase 64 U/L (45-117); Anion Gap 6 (5-15); BUN 17 mg/dL (7-18); BUN/Creat Ratio 15.2 RATIO (10-20); Calcium,Total 8.9 mg/dL (8.5-10.1); Chloride 107 mmol/L (98-107); Creatinine, Serum 1.12 mg/dL (0.55-1.02); EST Glomerular Filtration Rate 52 mL/min (>60); Est Glom Filt Rate - Afr Amer 63 mL/min (>60); Globulin 3.7 g/dL (2.2-4.2); Glucose 88 mg/dL (74-106); Potassium 3.8 mmol/L (3.5-5.1); Protein, Total 7.4 g/dL (6.4-8.2); Sodium Level 137 mmol/L (136-145)
== END | disposition home or self-care (01) ==
LOC: MTLAB 08:04
PROVIDERS: PCP Family Medicine; Referring Provider Internal Medicine Rheumatology; Visit Provider Internal Medicine Rheumatology
DX: M06.09 Rheumatoid arthritis without rheumatoid factor, multiple sites (principal); Z79.899 Other long term (current) drug therapy
CPT/HCPCS: 36415; 80053; 85025

== ENCOUNTER → 2023-03-24 | Outpatient (CLI) | payer MEDICARE, SELFPAY ==
[2023-03-24 10:10] LABS: Absolute Lymphocyte Count 3.82 X10^3/uL (0.83-4.51); Absolute Neutrophil Count 7.1 X10^3/uL (2.0-7.7); Basophil# 0.04 X10^3/uL; Basophil% 0.3 % (0-1); Eosinophil# 0.08 X10^3/uL; Eosinophils% 0.7 % (0-5); Hematocrit 38.5 % (37-47); Hemoglobin 12.6 g/dL (12.0-15.0); Lymphocyte # 3.82 X10^3/ul (0.83-4.51); Lymphocyte % 32.5 % (19-41); Mean Corp Hgb Conc 32.7 g/dL (32-36); Mean Corpuscular Hgb 29.9 pg (27.0-32.0); Mean Corpuscular Volume 91.4 fL (81-99); Monocyte# 0.69 X10^3/uL; Monocyte% 5.9 % (0-10); NRBC Flagged by Analyzer 0 % (0-5); Neutrophil # 7.11 X10^3/uL (2.7-7.7); Neutrophil % 60.3 % (47-70); Platelet Count 325 K/mm3 (150-450); RBC Distribution Width CV 14.1 % (11.6-14.6); RBC Distribution Width SD 47.2 fl (35.1-43.9); Red Blood Count 4.21 M/mm3 (4.2-5.4); White Blood Count 11.8 K/mm3 (4.4-11.0)
[2023-03-24 10:38] LABS: AST(SGOT) 15 U/L (15-37); Alanine Aminotransfer ALT/SGPT 23 U/L (13-56); Albumin, Serum 3.6 g/dL (3.2-5.0); Alkaline Phosphatase 71 U/L (45-117); Anion Gap 7 (5-15); BUN 19 mg/dL (7-18); BUN/Creat Ratio 16.7 RATIO (10-20); Calcium,Total 8.8 mg/dL (8.5-10.1); Chloride 103 mmol/L (98-107); Creatinine, Serum 1.14 mg/dL (0.55-1.02); EST Glomerular Filtration Rate 51 mL/min (>60); Est Glom Filt Rate - Afr Amer 62 mL/min (>60); Globulin 3.6 g/dL (2.2-4.2); Glucose 77 mg/dL (74-106); Protein, Total 7.2 g/dL (6.4-8.2); Sodium Level 137 mmol/L (136-145)
== END | disposition home or self-care (01) ==
LOC: MTLAB 07:59
PROVIDERS: PCP Family Medicine; Referring Provider Internal Medicine Rheumatology; Visit Provider Internal Medicine Rheumatology
DX: M06.09 Rheumatoid arthritis without rheumatoid factor, multiple sites (principal); Z79.899 Other long term (current) drug therapy; M25.572 Pain in left ankle and joints of left foot; H40.9 Unspecified glaucoma; K58.9 Irritable bowel syndrome, unspecified
CPT/HCPCS: 36415; 80053; 85025

== ENCOUNTER → 2023-07-12 | Outpatient (CLI) | payer MEDICARE, SELFPAY ==
[2023-07-12 14:11] LABS: Amphetamine Urine VISTA NEGATIVE (<1000 ng/mL); Barbiturate Urine VISTA NEGATIVE (< 200 ng/mL); Benzodiazepine Urine VISTA NEGATIVE (< 200 ng/mL); Cocaine Urine VISTA NEGATIVE (< 300 ng/mL); Ecstacy Urine VISTA NEGATIVE (< 500 ng/mL); Methadone Urine VISTA NEGATIVE (< 300 ng/mL); PCP Urine VISTA NEGATIVE (< 25 ng/mL); THC Urine VISTA NEGATIVE (< 50 ng/mL); Vista UDS pH Range 5
== END | disposition home or self-care (01) ==
PROVIDERS: PCP Family Medicine; Referring Provider Anesthesiology Pain Medicine; Visit Provider Anesthesiology Pain Medicine
DX: F11.20 Opioid dependence, uncomplicated (principal)
CPT/HCPCS: 80307

== ENCOUNTER → 2023-08-10 | Outpatient (CLI) | payer MEDICARE, SELFPAY ==
--- OUTSIDE RECORDS SUMMARY | 2023-08-10 08:05 | XMS RPT_ITS | CCD ---
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 Name Role Phone Kiara Giang Unavailable Kiara Giang Unavailable Mikayla Strange MD Primary Care Provider Mikayla Strange MD Primary Care Provider Mikayla Strange MD Primary Care Provider Mikayla Strange MD Primary Care Provider MIKAYLA STRANGE Primary Care Unavailable MIKAYLA STRANGE Attending Unavailable MIKAYLA STRANGE Primary Care Unavailable MIKAYLA STRANGE Referring Unavailable TESTCOMFORT CRAWFORD Attending Unavailable MIKAYLA STRANGE Primary Care Unavailable MIKAYLA STRANGE Primary Care Unavailable MIKAYLA STRANGE Attending Unavailable MIKAYLA STRANGE Referring Unavailable TESTCOMFORT CRAWFORD Referring Unavailable MIKAYLA STRANGE Primary Care Unavailable TESTCOMFORT CRAWFORD Referring Unavailable MIKAYLA STRANGE Primary Care Unavailable MIKAYLA STRANGE Primary Care Unavailable TESTCOMFORT CRAWFORD Attending Unavailable MIKAYLA STRANGE Primary Care Unavailable TESTRAJOANA, COMFORT Attending Unavailable TESTRAJOANA, COMFORT Referring Unavailable MIKAYLA STRANGE Primary Care Unavailable TESTRAJOANA, COMFORT Referring Unavailable MIKAYLA STRANGE Primary Care Unavailable TESTCOMFORT CRAWFORD Attending Unavailable GWEN BLAKELY Attending Unavailable GWEN BLAKELY Referring Unavailable MIKAYLA STRANGE Primary Care Unavailable MIKAYLA STRANGE Referring Unavailable MIKAYLA STRANGE Primary Care Unavailable MIKAYLA STRANGE Primary Care Unavailable MIKAYLA STRANGE Referring Unavailable Allergies Allergy Classification Reported Allergen(s) Allergy Type Date of Onset Reaction(s) Facility (2 sources) acetaminophen / HYDROcodone drug allergy 09-26-19 13 [facility] Work Phone: (2 sources) amoxicillin / clavulanate drug allergy 09-22-19 17 [facility] Work Phone: (3 sources) cefaclor; Translations: [CEFACLOR] drug allergy 07-14-19 15 [facility] Work Phone: (2 sources) clarithromycin drug allergy 09-26-19 13 [facility] Work Phone: (2 sources) doxycycline drug allergy 09-26-19 13 [facility] Work Phone: (2 sources) fexofenadine drug allergy 09-26-19 13 [facility] Work Phone: (2 sources) levoFLOXacin drug allergy 09-26-19 13 [facility] Work Phone: (2 sources) prochlorperazine drug allergy 09-26-19 13 [facility] Work Phone: (3 sources) sulfamethoxazole / trimethoprim; Translations: [SULFAMETHOXAZOLE-TR IMETHOPRIM] drug allergy 07-14-19 [facility] Work Phone: (2 sources) sulfamethoxazole / trimethoprim drug allergy 09-26-19 13 [facility] Work Phone: (2 sources) Sulfonamides (Antibiotic) drug allergy 09-26-19 13 [facility] Work Phone: (20 sources) terfenadine; Translations: [SELDANE] drug allergy 09-26-19 13 [facility] Work Phone: (4 sources) TRINILIN; Translations: [TRINILIN] food allergy 09-26-19 13 [facility] Work Phone: (2 sources) DOXEPINE drug allergy 09-26-19 13 [facility] Work Phone: (2 sources) TRINALIN; Translations: [TRINALIN] food allergy 09-26-19 13 [facility] Work Phone: (2 sources) 12 HOUR DECONGESTANT drug allergy 09-22-19 17 [facility] Work Phone: (20 sources) Acetaminophen / HYDROcodone; Translations: [HYDROCODONE-ACETAMI NOPHEN] Drug Allergy 07-14-19 15 [facility] Work Phone: (20 sources) adalimumab; Translations: [ADALIMUMAB] Drug Allergy 07-14-19 15 [facility] Work Phone: (20 sources) Amoxicillin / Clavulanate; Translations: [AMOXICILLIN-POT CLAVULANATE] Drug Allergy 07-14-19 15 [facility] Work Phone: (20 sources) Cefaclor Drug Allergy 07-14-19 15 [facility] Work Phone: (20 sources) celecoxib; Translations: [CELECOXIB] Drug Allergy 07-14-19 15 [facility] Work Phone: (20 sources) Clarithromycin; Translations: [CLARITHROMYCIN] Drug Allergy 07-14-19 15 [facility] Work Phone: (20 sources) Colestipol; Translations: [COLESTIPOL] Drug Allergy 11-25-19 15 Other: See Comments [facility] Work Phone: (20 sources) Dicyclomine; Translations: [DICYCLOMINE HCL] Drug Allergy 06-24-20 15 GI Upset [facility] (20 sources) Doxepin; Translations: [DOXEPIN] Drug Allergy 07-14-19 15 [facility] Work Phone: (20 sources) Doxycycline; Translations: [DOXYCYCLINE CALCIUM] Drug Allergy 07-14-19 15 [facility] Work Phone: (20 sources) fentaNYL; Translations: [FENTANYL] Drug Allergy 01-19-20 15 [facility] Work Phone: (20 sources) fexofenadine; Translations: [FEXOFENADINE HCL] Drug Allergy 07-14-19 Int[facility] Work Phone: (20 sources) Hydroxychloroquine; Translations: [HYDROXYCHLOROQUINE SULFATE] Drug Allergy 07-14-19 Int[facility] Work Phone: (20 sources) levoFLOXacin; Translations: [LEVOFLOXACIN] Drug Allergy 07-14-19 Int[facility] Work Phone: (20 sources) Prochlorperazine; Translations: [PROCHLORPERAZINE EDISYLATE] Drug Allergy 07-14-19 Int[facility] Work Phone: (20 sources) Sulfamethoxazole / Trimethoprim Drug Allergy 07-14-19 Int[facility] Work Phone: (20 sources) Sulfonamides (Antibiotic); Translations: [SULFA (SULFONAMIDE ANTIBIOTICS)] Drug Allergy 07-14-19 [facility] Work Phone: Medications Current Medications Medication Drug Class(es) Dates Sig (Normalized) Sig (Original) ciprofloxacin 500 mg oral tablet (1 source) Quinolone Antimicrobial Start: 04-19-2022 End: 04-24-2022 take 1 tablet by mouth twice daily ciprofloxacin HCl (CIPRO) 500 mg tablet Take 1 tablet by mouth twice daily for 5 days. 10 tablet 0 04/19/2022 04/24/2022 Active Completed/Discontinued Medications Medication Drug Class(es) Dates Sig (Normalized) Sig (Original) acetaminophen 300 mg / butalbital 50 mg / caffeine 40 mg oral capsule (20 sources) Barbiturate, Central Nervous System Stimulant, Methylxanthine Start: 03-23-2022 End: 05-12-2023 take 1 capsule by mouth twice daily acetaminophen 300 mg-caffeine 40 mg-butalbital 50 mg (FIORICET) per capsule TAKE 1 CAPSULE BY MOUTH TWICE DAILY FOR 28 DAYS 0 03/23/2022 05/12/2023 Discontinued Problems Active Problems Problem Classification Problem Date Documented Da te Episodic/Chronic Acquired foot deformities (2 sources) Hammer toe; Translations: [Other hammer toe(s) (acquired), right foot] Chronic Anxiety disorders (20 sources) Panic disorder; Translations: [Panic disorder [episodic paroxysmal anxiety]] Onset: 05-11-2019 Chronic Chronic kidney disease (12 sources) Chronic kidney disease stage 3; Translations: [Stage 3 chronic kidney disease, unspecified whether stage 3a or 3b CKD (HCC)] Onset: 10-25-2022 Chronic Chronic kidney disease (1 source) Chronic kidney disease; Translations: [Stage 3 chronic kidney disease, unspecified whether stage 3a or 3b CKD (HCC)] Onset: 10-25-2022 Deficiency and other anemia (1 source) Anemia; Translations: [Anemia, unspecified] Episodic Diabetes mellitus with complications (5 sources) Disorder of nervous system due to type 2 diabetes mellitus; Translations: [Type 2 diabetes mellitus with other diabetic neurological complication] Onset: 07-04-2022 Chronic Diabetes mellitus without complication (20 sources) Type 2 diabetes mellitus without complication; Translations: [Type 2 diabetes mellitus without complications] Onset: 03-12-2021 Chronic Diseases of white blood cells (2 sources) Leukocytosis; Translations: [Elevated white blood cell count, unspecified] Chronic Disorders of lipid metabolism (20 sources) Hyperlipidemia; Translations: [Other hyperlipidemia] Onset: 05-11-2019 Chronic Essential hypertension (20 sources) Essential hypertension; Translations: [Essential (primary) hypertension] Onset: 01-14-2022 Chronic Glaucoma (20 sources) Suspected bilateral glaucoma; Translations: [Preglaucoma, unspecified, bilateral] Onset: 05-11-2019 05-11-2019 Chronic Headache; including migraine (20 sources) Refractory migraine without aura; Translations: [Migraine without aura, intractable, without status migrainosus] Onset: 05-11-2019 Chronic Miscellaneous mental health disorders (20 sources) Chronic insomnia; Translations: [Psychophysiologic insomnia] Onset: 05-11-2019 05-11-2019 Chronic Nausea and vomiting (5 sources) Nausea; Translations: [Nausea] Episodic Osteoarthritis (9 sources) Osteoarthritis of knee; Translations: [Inflammation of joint of foot] Onset: 04-07-2014 04-07-2014 Chronic Other circulatory disease (8 sources) Elevated blood-pressure reading without diagnosis of hypertension; Translations: [Elevated blood-pressure reading, without diagnosis of hypertension] Onset: 11-17-2021 Episodic Other connective tissue disease (4 sources) Pain in left foot; Translations: [Pain in left foot] Episodic Other connective tissue disease (3 sources) Dysfunction of posterior tibial tendon; Translations: [Posterior tibial tendinitis, unspecified leg] Episodic Other diseases of kidney and ureters (1 source) Renal impairment; Translations: [Disorder of kidney and ureter, unspecified] Episodic Other gastrointestinal disorders (20 sources) Irritable bowel syndrome characterized by constipation; Translations: [Irritable bowel syndrome with constipation] Onset: 05-11-2019 Chronic Other gastrointestinal disorders (1 source) Alteration in bowel elimination; Translations: [Change in bowel habit] Episodic Other gastrointestinal disorders (2 sources) Altered bowel function; Translations: [Change in bowel habit] Episodic Other gastrointestinal disorders (1 source) Diarrhea; Translations: [Diarrhea, unspecified] 05-27-2022 Episodic Other lower respiratory disease (1 source) Dyspnea; Translations: [Shortness of breath] Episodic Other nutritional; endocrine; and metabolic disorders (7 sources) Body mass index 40+ - severely obese; Translations: [Morbid (severe) obesity due to excess calories] Onset: 10-25-2022 Chronic Other nutritional; endocrine; and metabolic disorders (1 source) Obese class II; Translations: [Obesity, unspecified] 05-12-2023 Chronic Other nutritional; endocrine; and metabolic disorders (1 source) Obesity, unspecified; Translations: [Obesity, Class II, BMI 35-39.9] Onset: 05-12-2023 Chronic Other nutritional; endocrine; and metabolic disorders (1 source) Morbid (severe) obesity due to excess calories; Translations: [Obesity, Class III, BMI 40-49.9 (morbid obesity) (HCC)] Onset: 10-25-2022 Chronic Other screening for suspected conditions (not mental disorders or infectious disease) (4 sources) Patient encounter status; Translations: [Encounter for other screening for malignant neoplasm of breast] Onset: 05-12-2023 Episodic Other skin disorders (1 source) Disorder of skin color; Translations: [Disorder of pigmentation, unspecified] Episodic Other skin disorders (1 source) Keratosis; Translations: [Epidermal thickening, unspecified] Episodic Rheumatoid arthritis and related disease (20 sources) Rheumatoid arthritis; Translations: [Rheumatoid arthritis of multiple joints] Onset: 04-07-2014 04-07-2014 Chronic Spondylosis; intervertebral disc disorders; other back problems (20 sources) Degeneration of lumbar intervertebral disc; Translations: [Other intervertebral disc degeneration, lumbar region] Onset: 05-11-2019 Chronic Unclassified (1 source) Screening for malignant neoplasm of colon ; Translations: [Encounter for screening for malignant neoplasm of colon] 09-26-2012 Unclassified (1 source) Established Patient Onset: 08-08-2022 Past or Other Problems Problem Classification Problem Date Documented Da te Episodic/Chronic Acquired foot deformities (5 sources) Talipes planus; Translations: [Flat foot [pes planus] (acquired), right foot] Onset: 07-04-2022 Episodic Deficiency and other anemia (1 source) Anemia, unspecified; Translations: [Anemia, unspecified type] Onset: 11-04-2022 Episodic Fracture of lower limb (5 sources) Closed fracture of foot; Translations: [Unspecified fracture of left foot, subsequent encounter for fracture with nonunion] Onset: 08-18-2022 Episodic Other aftercare (2 sources) Follow-up orthopedic assessment; Translations: [Other orthopedic aftercare] Onset: 05-05-2014 05-05-2014 Episodic Other connective tissue disease (20 sources) Fibromyalgia; Translations: [Fibromyalgia] Onset: 05-11-2019 05-11-2019 Episodic Other connective tissue disease (1 source) Fibromyalgia; Translations: [Fibromyalgia] Onset: 05-11-2019 Episodic Other connective tissue disease (1 source) Pain in left foot; Translations: [Left foot pain] Onset: 09-12-2022 Episodic Other connective tissue disease (1 source) Posterior tibial tendinitis, unspecified leg; Translations: [Posterior tibial tendon dysfunction] Onset: 07-04-2022 Episodic Other non-traumatic joint disorders (3 sources) Hip pain; Translations: [Knee pain] Onset: 04-07-2014 11-28-2014 Episodic Other non-traumatic joint disorders (1 source) Knee pain; Translations: [Pain in right knee] Onset: 04-07-2014 04-07-2014 Episodic Spondylosis; intervertebral disc disorders; other back problems (2 sources) Lumbar radiculopathy; Translations: [Radiculopathy, lumbar region] Onset: 09-26-2016 09-26-2016 Episodic Results Test Name Value Interpretation Reference Range Facil ity Vital Signs Date Time Vital Sign Value Performing Clinician Facility 05-12-2023 13:48-0500 Body height 165.1 cm Mikayla Strange MD Work Phone: [facility] 05-12-2023 13:48-0500 Body weight 103.96 kg Mikayla Strange MD Work Phone: [facility] 05-12-2023 13:48-0500 Diastolic blood pressure 62 mm[Hg] Mikayla Strange MD Work Phone: [facility] 05-12-2023 13:48-0500 Heart rate 93 /min Mikayla Strange MD Work Phone: [facility] 05-12-2023 13:48-0500 SaO2% (BldA) [Mass fraction] 97 % Mikayla Strange MD Work Phone: [facility] 05-12-2023 13:48-0500 Systolic blood pressure 104 mm[Hg] Mikayla Strange MD Work Phone: [facility] 10-25-2022 12:59-0400 Body height 165.1 cm Mikayla Strange MD Work Phone: [facility] 10-25-2022 12:59-0400 Body weight 105.23 kg Mikayla Strange MD Work Phone: [facility] 10-25-2022 12:59-0400 Diastolic blood pressure 64 mm[Hg] Mikayla Strange MD Work Phone: [facility] 10-25-2022 12:59-0400 Heart rate 82 /min Mikayla Strange MD Work Phone: [facility] 10-25-2022 12:59-0400 Respiratory rate 16 /min Mikayla Strange MD Work Phone: [facility] 10-25-2022 12:59-0400 Systolic blood pressure 112 mm[Hg] Mikayla Strange MD Work Phone: [facility] 06-22-2022 14:15-0500 Body height 167.6 cm Gwen Blakely MD Work Phone: [facility] 06-22-2022 14:15-0500 Body temperature 97.3 [degF] Gwen Blakely MD Work Phone: [facility] 06-22-2022 14:15-0500 Body weight 115.85 kg Gwen Blakely MD Work Phone: [facility] 06-22-2022 14:15-0500 Diastolic blood pressure 82 mm[Hg] Gwen Blakely MD Work Phone: [facility] 06-22-2022 14:15-0500 Heart rate 91 /min Gwen Blakely MD Work Phone: [facility] 06-22-2022 14:15-0500 SaO2% (BldA) [Mass fraction] 99 % Gwen Blakely MD Work Phone: [facility] 06-22-2022 14:15-0500 Systolic blood pressure 118 mm[Hg] Gwen Blakely MD Work Phone: [facility] 05-27-2022 09:44-0500 Diastolic blood pressure 60 mm[Hg] Gwen Blakely MD Work Phone: [facility] 05-27-2022 09:44-0500 Heart rate 84 /min Gwen Blakely MD Work Phone: [facility] 05-27-2022 09:44-0500 Respiratory rate 16 /min Gwen Blakely MD Work Phone: [facility] 05-27-2022 09:44-0500 SaO2% (BldA) [Mass fraction] 97 % Gwen Blakely MD Work Phone: [facility] 05-27-2022 09:44-0500 Systolic blood pressure 120 mm[Hg] Gwen Blakely MD Work Phone: [facility] 05-27-2022 07:52-0500 Body temperature 97.59 [degF] Gwen Blakely MD Work Phone: [facility] 05-27-2022 07:52-0500 Body weight 110.1 kg Gwen Blakely MD Work Phone: [facility] 04-11-2022 15:05-0400 Body height 167.6 cm Gwen Blakely MD Work Phone: [facility] 04-11-2022 15:05-0400 Body temperature 98.01 [degF] Gwen Blakely MD Work Phone: [facility] 04-11-2022 15:05-0400 Body weight 112.67 kg Gwen Blakely MD Work Phone: [facility] 04-11-2022 15:05-0400 Diastolic blood pressure 72 mm[Hg] Gwen Blakely MD Work Phone: [facility] 04-11-2022 15:05-0400 Heart rate 100 /min Gwen Blakely MD Work Phone: [facility] 04-11-2022 15:05-0400 SaO2% (BldA) [Mass fraction] 98 % Gwen Blakely MD Work Phone: [facility] 04-11-2022 15:05-0400 Systolic blood pressure 140 mm[Hg] Gwen Blakely MD Work Phone: [facility] 01-14-2022 10:11-0400 Body weight 116.57 kg Mikayla Strange MD Work Phone: [facility] 01-14-2022 10:11-0400 Diastolic blood pressure 70 mm[Hg] Mikayla Strange MD Work Phone: [facility] 01-14-2022 10:11-0400 Heart rate 88 /min Mikayla Strange MD Work Phone: [facility] 01-14-2022 10:11-0400 Systolic blood pressure 118 mm[Hg] Mikayla Strange MD Work Phone: [facility] 12-24-2021 14:07-0400 Diastolic blood pressure 78 mm[Hg] Sayda Prideagen COMMUNITY ASSISTANT.EXCELSIOR MACHINE OPERATOR Work Phone: [facility] 12-24-2021 14:07-0400 Heart rate 104 /min Sayda Haagen COMMUNITY ASSISTANT.EXCELSIOR MACHINE OPERATOR Work Phone: [facility] 12-24-2021 14:07-0400 Respiratory rate 18 /min Sayda Haagen COMMUNITY ASSISTANT.EXCELSIOR MACHINE OPERATOR Work Phone: [facility] 12-24-2021 14:07-0400 SaO2% (BldA) [Mass fraction] 98 % Sayda Carr COMMUNITY ASSISTANT.EXCELSIOR MACHINE OPERATOR Work Phone: [facility] 12-24-2021 14:07-0400 Systolic blood pressure 134 mm[Hg] Sayda Carr COMMUNITY ASSISTANT.EXCELSIOR MACHINE OPERATOR Work Phone: [facility] 11-17-2021 15:40-0400 Body weight 117.94 kg Mikayla Strange MD Work Phone: [facility] 11-17-2021 15:40-0400 Diastolic blood pressure 80 mm[Hg] Mikayla Strange MD Work Phone: [facility] 11-17-2021 15:40-0400 Heart rate 80 /min Mikayla Strange MD Work Phone: [facility] 11-17-2021 15:40-0400 Systolic blood pressure 162 mm[Hg] Mikayla Strange MD Work Phone: [facility] 09-17-2021 13:46-0400 Body weight 122.56 kg Mikayla Strange MD Work Phone: [facility] 09-17-2021 13:46-0400 Diastolic blood pressure 76 mm[Hg] Mikayla Strange MD Work Phone: [facility] 09-17-2021 13:46-0400 Heart rate 92 /min Mikayla Strange MD Work Phone: [facility] 09-17-2021 13:46-0400 Respiratory rate 18 /min Mikayla Strange MD Work Phone: [facility] 09-17-2021 13:46-0400 Systolic blood pressure 138 mm[Hg] Mikayla Strange MD Work Phone: [facility] 01-05-2015 14:45-0400 Body Temperature 98 [degF] Kiara Giang [facility] [place] [facility] Work Phone: 11-28-2014 14:43-0400 BMI (Body Mass Index) 38.41 kg/m2 [facility] Work Phone: 11-28-2014 14:43-0400 Weight 107.96 kg [facility] Work Phone: 04-07-2014 11:44-0400 BP Diastolic 79 mm[Hg] [facility] Work Phone: 04-07-2014 11:44-0400 BP Systolic 118 mm[Hg] [facility] Work Phone: 04-07-2014 11:44-0400 Pulse (Heart Rate) 74 /min [facility] Work Phone: 09-25-2012 09:31-0400 BSA (Body Surface Area) 2.08 m2 [facility] Work Phone: 09-25-2012 09:31-0400 Height 167.64 cm [facility] Work Phone: 09-25-2012 09:31-0400 Respiratory Rate 16 /min [facility] Work Phone: Encounters Encounter Date Encounter Type Care Provider Facility Start: 08-08-2023 Refholly Strange MD Work Phone: [facility] Procedures Date Procedure Procedure Detail Performing Clinician Start: 09-12-2022 Ct lower extremity w/o contrast material Comfort Muniz Work Phone: Start: 08-18-2022 Radex foot complete minimum 3 views Comfort Muniz Work Phone: Start: 05-27-2022 Level iv surg pathology gross&microscopic exam Gwen Blakely MD Work Phone: Start: 05-27-2022 Colonoscopy flx dx w/collj spec when pfrmd Gwen Blakely MD Work Phone: Start: 05-27-2022 Colonoscopy Gwen Blakely MD Work Phone: Start: 04-14-2022 Mammography Mammography [facility] Start: 11-17-2021 Adult depression screening assessment Mikayla Strange MD Work Phone: Start: 04-01-2021 Mammography Mikayla Strange MD Work Phone: Start: 09-26-2016 End: 09-26-2016 Dietary management education, guidance, and counseling Kiara Giang Start: 05-05-2014 End: 05-08-2014 Documentation of current medications Jerardo Campos Work Phone: Start: 05-05-2014 End: 05-05-2014 X-ray exam, knee, 4 or more Jerardo Campos Work Phone: Start: 10-01-2012 Colonoscopy Mikayla Strange MD Work Phone: Screening for malign ant neoplasm of colon SCREENING, COLON CANCER Kiara Giang Plan of Treatment Date Care Activity Detail Author Start: 05-27-2032 Colonoscopy COLONOSCOPY [facility] Start: 05-27-2032 COLORECTAL CANCER SCREENING COLORECTAL CANCER SCREENING [facility] Start: 05-27-2032 Screening for malign ant neoplasm of colon [facility] Start: 02-20-2025 HPV TESTING HPV TESTING [facility] Start: 02-20-2025 PAP TESTING PAP TESTING [facility] Start: 05-29-2024 Mammography Mammogram Screening [facility] Start: 05-29-2024 Screening for malign ant neoplasm of breast Mammogram Screening [facility] Start: 05-12-2024 3 comp foot exam completed Diabetic Foot Exam [facility] Start: 05-12-2024 Annual PCP Team Senior Data Quality Analyst [email or web address] Disease Visit Annual PCP Team Chronic Disease Visit [facility] Start: 05-12-2024 BP Controlled (<130/80) BP Controlle d (<130/80) [facility] Start: 05-12-2024 Diabetic foot examination Diabetic F oot Exam [facility] Start: 05-12-2024 Hepatitis B Vaccine (1 of 3 - Risk 3-dose series) Hepatitis B Vaccine (1 of 3 - Risk 3-dose series) [facility] Immunizations Immunization Date Immunization Notes Care Provider Fa cility 05-13-2020 zoster vaccine recombinant Mikayla Strange MD Work Phone: [facility] 03-06-2020 zoster vaccine recombinant Mikayla Strange MD Work Phone: [facility] Payers Date Payer Category Payer Medicare MMO MEDICARE MMO MEDADVANTAGE PPO [id number] 2018-Present [phone] [address] [place] [address] PPO [id number] 2018 Medicare MMO MEDICARE MMO MEDADVANTAGE PPO [id number] 2018-Present [phone] [address] [place] [address] PPO [id number] 2018 Unknown [id number] Social History Date Type Detail Facility Start: 05-11-2019 End: 03-22-2022 Tobacco smoking status NHIS Never smoked tobacco [facility] Start: 09-17-2021 End: 05-12-2023 Alcohol intake Current non-drinker of alcohol (finding) [facility] Start: 02-21-2020 History SDOH Social Connections Phone 5 [facility] Start: 02-21-2020 History SDOH Social Connections Get Together 2 [facility] Start: 02-21-2020 History SDOH Social Connections [facility] Start: 02-21-2020 History SDOH Social Connections Living 3 [facility] Start: 02-21-2020 History SDOH Physica l Activity DPW 0 [facility] Start: 02-21-2020 Education 13 [facility] Start: 1960 Sex Assigned At Not on file [facility] Start: 09-07-2021 End: 05-27-2022 Exposure to SARS-CoV-2 (event) Not sure [facility] Start: 05-11-2019 End: 03-22-2022 Tobacco use and exposure Smokeless tobacco non-user [facility] Start: 02-21-2020 End: 10-31-2022 History of Social function [facility] Work Phone: Start: 02-21-2020 End: 10-31-2022 Tobacco use panel [facility] Work Phone: Adult Depression Scr eening Assessment 0 [facility] Work Phone: Do you belong to any clubs or organizations such as yazidi groups, unions, fraternal or athletic groups, or school groups? No [facility] Work Phone: Are you now , , , , never or living with a partner? [facility] Work Phone: Do you feel stress - tense, restless, nervous, or anxious, or unable to sleep at night because your mind is troubled all the time - these days [OSQ] To some extent [facility] [employer] Phone: (I/We) worried wheth er (my/our) food would run out before (I/we) got money to buy more. Never true [facility] Work Phone: Clinical Notes 05-11-2019 to 08-08-2023 Telephone Encounter - Adeline Hensley RN - 08/08/2023 1:22 PM ESTLetter - Coordinator, Mammography - 05/30/2023 7:35 AM Viviana Grijalva, Mammo Tech - 05/29/2023 12:30 PM EST Note Date & Type Note Facility 08-08-2023 Miscellaneous Notes Patient has been identified by name and date of : Yes, Provider Dr Strange Date 08/08/23 Time 1323. Patient phones for refill(s): Requested Prescriptions Pending Prescriptions Disp Refills hyoscyamine sublingual (LEVSIN/SL) 0.125 mg 60 tablet 3 Sig: Dissolve 1 tablet under the tongue every 4 hours as needed. Date of last office visit in primary care: 05/12/2023 Date of next office visit in primary care: 11/21/2023 Please advise. Thank you. Adeline Hensley RN. documented in this encounter [facility] 05-30-2023 Miscellaneous Notes May 30, 2023 PID: [id number] Keyla Engle [address] [place] [address] Dear Ms. Engle, We are pleased to inform you that the results of your recent breast imaging exam on 05/29/2023 are normal. Early detection of cancer is very important. We also understand recommendations regarding breast cancer screening are controversial. Please discuss with your primary care provider which strategy is best for you and whether a mammogram is right for you. Your imaging studies and report will be kept on file at [facility] as part of your permanent medical record and are available for your continuing care. Thank you for allowing us to help in meeting your health care needs. Sincerely, Dr. Chester Interpreting Radiologist [facility] (Normal over 40) documented in this encounter [facility] 05-29-2023 Note HNO ID: [id number] Author: Viviana Lawrence Mammo Tech Service: ? Author Type: [place] Type: Progress Notes Filed: 05/29/2023 2:04 PM Note Text: Radiology Service Progress Note PATIENT NAME: Keyla Engle DATE OF SERVICE: May 29, 2023 TIME: 12:43 PM PATIENT IDENTITY VERIFICATION COMPLETED USING TWO (2) IDENTIFIERS: Name and Date of confirmed by patient verbally. FALL SCREENING: Has the patient had 2 falls in the last year or 1 fall with injury or currently using an Ambulatory Assistive Device (Walker, Cane, Wheelchair, Crutches, etc.)? No PATIENT GENDER DATA: Female. status: : No status: NO. PATIENT RELEVANT IMPLANT DATA REVIEWED: Not Applicable RADIOLOGY DEPARTMENT: Mammography PERIPHERAL IV DATA: Not applicable SIGNED BY: Isha Johnson May 29, 2023 12:43 PM [facility] 05-29-2023 History of Present illness Narrative Radiology Service Progress Note PATIENT NAME: Keyla Engle DATE OF SERVICE: May 29, 2023 TIME: 12:43 PM PATIENT IDENTITY VERIFICATION COMPLETED USING TWO (2) IDENTIFIERS: Name and Date of confirmed by patient verbally. FALL SCREENING: Has the patient had 2 falls in the last year or 1 fall with injury or currently using an Ambulatory Assistive Device (Walker, Cane, Wheelchair, Crutches, etc.)? No PATIENT GENDER DATA: Female. status: : No status: NO. PATIENT RELEVANT IMPLANT DATA REVIEWED: Not Applicable RADIOLOGY DEPARTMENT: Mammography PERIPHERAL IV DATA: Not applicable SIGNED BY: Viviana Lawrence Regalos Y Amigos Artemio May 29, 2023 12:43 PM documented in this encounter [facility] 05-12-2023 Note HNO ID: [id number] Author: Mikayla Strange MD Service: ? Author Type: Physician Type: Progress Notes Filed: 05/12/2023 2:29 PM Note Text: Patient presents with: 6 Month Exam HPI: Patient presents today for office visit for follow up. Requesting Rx for larger diabetic shoes. Has permanent insoles. Insoles have helped. Uses My Visual Brief. Sees Dr. Muniz, Podiatry. Has not seen him since 10/31/22. Not ready for surgery. HTN: Patient is compliant with meds: Yes Monitors bp at home: Yes. Sometimes. Denies side effects: Yes. Chest pain: No. Dyspnea: No. Edema: Yes. Left foot is worse. Palpitations: No. Syncope: No. Headache: No. Hx of migraines. Dizziness: No. DM: Reports overall feeling well. Medication side effects: No. Home sugar check frequency/results: 2-3 x a day Hypoglycemic spells: Yes, occasionally but, typically it's high. Started using Cinnamon capsules which helps keep readings under control. Watching diet: Yes. Thinks the cinnamon capsules have helped with curbing her appetite. She has lost weight on purpose. Unexpected weight loss: No. Polyuria, polydipsia: No. Vision Changes: No. Foot lesions or numbness or pain: Yes. No foot lesions but, has numbness/tingling and pain. Seeing Rheum. Emotionally doing well. Followed by [facility]. Dr. Bedolla. Hx of glaucoma. Continues on drops. Recently had uri. Now improving. Fibromyalgia acting up with weather changes See Dr Ward. Getting cervical injections. Uses imitrex rarely. Kidney functions are stable. Has chronic edema. Needs new diabieic shoes. Just saw podiatry in October. Has oa of foot. MEDICATIONS: Current Outpatient Medications Medication Sig hyoscyamine sublingual (LEVSIN/SL) 0.125 mg Dissolve 1 tablet under the tongue every 4 hours as needed. lisinopril (ZESTRIL) 10 mg tablet Take 1 tablet by mouth once daily. atorvastatin (LIPITOR) 10 mg tablet Take 1 tablet by mouth once daily. busPIRone HCl 30 mg tablet Take 1 tablet by mouth twice daily. SUMAtriptan (IMITREX) 50 mg tablet Take 1 tablet by mouth as needed. promethazine (PHENERGAN) 25 mg suppository 1 Suppository by RECTAL route every 6 hours as needed. promethazine (PHENERGAN) 25 mg tablet Take 1 tablet by mouth every 6 hours as needed. metFORMIN ER (GLUCOPHAGE XR) 500 mg 24 hr tablet Take 1 tablet by mouth daily with breakfast. citalopram (CELEXA) 40 mg tablet Take 1 tablet by mouth once daily. buprenorphine 20 mcg/hour ptwk APPLY 1 PATCH TOPICALLY ONCE A WEEK FOR 4 WEEKS oxyCODONE-acetaminophen (PERCOCET) 5-325 mg tablet 1 tablet three times daily as needed. upadacitinib (RINVOQ ORAL) Take 15 mg by mouth. amitriptyline (ELAVIL) 10 mg tablet Take 1 tablet by mouth daily at bedtime. gabapentin (NEURONTIN) 300 mg capsule Take 1 capsule by mouth four times daily. predniSONE (DELTASONE) 10 mg tablet Take 1 tablet by mouth as needed for Pain. Cetirizine 10 mg cap Take by mouth. CALCIUM POLYCARBOPHIL (FIBER LAXATIVE ORAL) Take by mouth. multivitamin tablet Take 1 tablet by mouth once daily. latanoprost (XALATAN) 0.005 % ophthalmic solution 1 Drop daily at bedtime. docusate sodium (COLACE) 100 mg capsule Take 100 mg by mouth twice daily. No current facility-administered medications for this visit. ALLERGIES: ALLERGIES Allergen Reactions Jessica [Fexofenadi* Intolerance Augmentin [Amoxicil* Intolerance Bentyl [Dicyclomine* GI Upset Biaxin [Clarithromy* Intolerance Ceclor [Cefaclor] Intolerance Celebrex [Celecoxib] Intolerance Colestipol Other: See Comments shaky/headaches/increased nausea Compazine [Prochlor* Intolerance Doxepin Intolerance Fentanyl Intolerance Humira [Adalimumab] Intolerance Levaquin [Levofloxa* Intolerance Plaquenil [Hydroxyc* Intolerance Seldane Intolerance Septra [Sulfamethox* Intolerance Sulfa (Sulfonamide * Intolerance Vibramycin [Doxycyc* Intolerance Vicodin [Hydrocodon* Intolerance PAST MEDICAL HISTORY Diagnosis Date Anxiety disorder Arthritis Chronic back pain Dr. Burks-pain management Depressive disorder, not elsewhere classified Diabetes (HCC) Essential hypertension, benign Fibromyalgia Glaucoma IBS (irritable bowel syndrome) Migraine, unspecified, without mention of intractable migraine without mention of status migrainosus PONV (postoperative nausea and vomiting) Pure hypercholesterolemia Rheumatoid arthritis (HCC) Snoring PAST SURGICAL HISTORY Procedure Laterality Date APPENDECTOMY 12/18/2014 Dr. Blakely APPENDECTOMY HX ARTHRP KNE CONDYLEANDPLATU MEDIALANDLAT COMPARTMENTS 04/22/2014 right COLONOSCOPY 05/27/2022 repeat in 10 years COLONOSCOPY FLX DX W/COLLJ SPEC WHEN PFRMD 10/01/2012 suboptimal - poor prep EGD ESOPHAGOGASTRODUODENOSCOPY TRANSORAL DIAGNOSTIC 07/30/2014 EGD JOINT REPLACEMENT HX LAPAROSCOPY SURG CHOLECYSTECTOMY 12/31/1993 PAST SURGICAL HISTORY OF 1994 knee, right arthroscop (more content not included)... [facility] 05-12-2023 History of Present illness Narrative Patient presents with: 6 Month Exam HPI: Patient presents today for office visit for follow up. Requesting Rx for larger diabetic shoes. Has permanent insoles. Insoles have helped. Uses My Visual Brief. Sees Dr. Muniz, Podiatry. Has not seen him since 10/31/22. Not ready for surgery. HTN: Patient is compliant with meds: Yes Monitors bp at home: Yes. Sometimes. Denies side effects: Yes. Chest pain: No. Dyspnea: No. Edema: Yes. Left foot is worse. Palpitations: No. Syncope: No. Headache: No. Hx of migraines. Dizziness: No. DM: Reports overall feeling well. Medication side effects: No. Home sugar check frequency/results: 2-3 x a day Hypoglycemic spells: Yes, occasionally but, typically it's high. Started using Cinnamon capsules which helps keep readings under control. Watching diet: Yes. Thinks the cinnamon capsules have helped with curbing her appetite. She has lost weight on purpose. Unexpected weight loss: No. Polyuria, polydipsia: No. Vision Changes: No. Foot lesions or numbness or pain: Yes. No foot lesions but, has numbness/tingling and pain. Seeing Rheum. Emotionally doing well. Followed by [facility]. Dr. Bedolla. Hx of glaucoma. Continues on drops. Recently had uri. Now improving. Fibromyalgia acting up with weather changes See Dr Ward. Getting cervical injections. Uses imitrex rarely. Kidney functions are stable. Has chronic edema. Needs new diabieic shoes. Just saw podiatry in October. Has oa of foot. MEDICATIONS: Current Outpatient Medications Medication Sig hyoscyamine sublingual (LEVSIN/SL) 0.125 mg Dissolve 1 tablet under the tongue every 4 hours as needed. lisinopril (ZESTRIL) 10 mg tablet Take 1 tablet by mouth once daily. atorvastatin (LIPITOR) 10 mg tablet Take 1 tablet by mouth once daily. busPIRone HCl 30 mg tablet Take 1 tablet by mouth twice daily. SUMAtriptan (IMITREX) 50 mg tablet Take 1 tablet by mouth as needed. promethazine (PHENERGAN) 25 mg suppository 1 Suppository by RECTAL route every 6 hours as needed. promethazine (PHENERGAN) 25 mg tablet Take 1 tablet by mouth every 6 hours as needed. metFORMIN ER (GLUCOPHAGE XR) 500 mg 24 hr tablet Take 1 tablet by mouth daily with breakfast. citalopram (CELEXA) 40 mg tablet Take 1 tablet by mouth once daily. buprenorphine 20 mcg/hour ptwk APPLY 1 PATCH TOPICALLY ONCE A WEEK FOR 4 WEEKS oxyCODONE-acetaminophen (PERCOCET) 5-325 mg tablet 1 tablet three times daily as needed. upadacitinib (RINVOQ ORAL) Take 15 mg by mouth. amitriptyline (ELAVIL) 10 mg tablet Take 1 tablet by mouth daily at bedtime. gabapentin (NEURONTIN) 300 mg capsule Take 1 capsule by mouth four times daily. predniSONE (DELTASONE) 10 mg tablet Take 1 tablet by mouth as needed for Pain. Cetirizine 10 mg cap Take by mouth. CALCIUM POLYCARBOPHIL (FIBER LAXATIVE ORAL) Take by mouth. multivitamin tablet Take 1 tablet by mouth once daily. latanoprost (XALATAN) 0.005 % ophthalmic solution 1 Drop daily at bedtime. docusate sodium (COLACE) 100 mg capsule Take 100 mg by mouth twice daily. No current facility-administered medications for this visit. ALLERGIES: ALLERGIES Allergen Reactions Jessica [Fexofenadi* Intolerance Augmentin [Amoxicil* Intolerance Bentyl [Dicyclomine* GI Upset Biaxin [Clarithromy* Intolerance Ceclor [Cefaclor] Intolerance Celebrex [Celecoxib] Intolerance Colestipol Other: See Comments shaky/headaches/increased nausea Compazine [Prochlor* Intolerance Doxepin Intolerance Fentanyl Intolerance Humira [Adalimumab] Intolerance Levaquin [Levofloxa* Intolerance Plaquenil [Hydroxyc* Intolerance Seldane Intolerance Septra [Sulfamethox* Intolerance Sulfa (Sulfonamide * Intolerance Vibramycin [Doxycyc* Intolerance Vicodin [Hydrocodon* Intolerance PAST MEDICAL HISTORY Diagnosis Date Anxiety disorder Arthritis Chronic back pain Dr. Burks-pain management Depressive disorder, not elsewhere classified Diabetes (HCC) Essential hypertension, benign Fibromyalgia Glaucoma IBS (irritable bowel syndrome) Migraine, unspecified, without mention of intractable migraine without mention of status migrainosus PONV (postoperative nausea and vomiting) Pure hypercholesterolemia Rheumatoid arthritis (HCC) Snoring PAST SURGICAL HISTORY Procedure Laterality Date APPENDECTOMY 12/18/2014 Dr. Blakely APPENDECTOMY HX ARTHRP KNE CONDYLE&PLATU MEDIAL&LAT COMPARTMENTS 04/22/2014 right COLONOSCOPY 05/27/2022 repeat in 10 years COLONOSCOPY FLX DX W/COLLJ SPEC WHEN PFRMD 10/01/2012 suboptimal - poor prep EGD ESOPHAGOGASTRODUODENOSCOPY TRANSORAL DIAGNOSTIC 07/30/2014 EGD JOINT REPLACEMENT HX LAPAROSCOPY SURG CHOLECYSTECTOMY 12/31/1993 PAST SURGICAL HISTORY OF 1994 knee, right arthroscopy TONSILLECTOMY HX TUBAL LIGATION HX 08/11/1997 VAGINAL HYSTERECTOMY FAMILY HISTORY Problem Relation Age of Onset Diabetes Mother Hypertension Mother Heart Attack Mother Diabetes Father Hypertension Father Heart Attack Father COPD Sister other (sjorgens) Sister affects vision other (Other) Sister lupus Bipolar disorder Daughter Diabetes Maternal Grandmother Social History Tobacco Use Smoking status: Never Smokeless tobacco: Never Vaping Use Vaping Use: Never used Substance Use Topics Alcohol use: No Drug use: No Reviewed current medications, allergies, past medical history, surgical history, family history and social history today. REVIEW OF SYSTEMS All other reviewed and negative other than HPI. HEALTH MAINTENANCE: Reviewed health maintenance issues today and recommended the following in detail. Pneumococcal Vaccine: 65+(1 - PCV) Never done Hepatitis B Vaccine(1 of 3 - Risk 3-dose series) Never done RSV Vaccine(1 - 1-dose 60+ series) Never done Advance Directive Discussion Never done HbA1C due on 05/07/2023 Mammogram Screening due on 04/14/2023 VITALS: BP 104/62 Pulse 93 Ht 165.1 cm (5' 5 ) Wt 104 kg (229 lb 3.2 oz) SpO2 97% BMI 38.14 kg/m Last 4 Encounter Wt Readings: Date: Wt: 10/25/2022 105.2 kg (232 lb) 06/22/2022 115.8 kg (255 lb 6.4 oz) 05/27/2022 110.1 kg (242 lb 11.6 oz) 04/19/2022 110.1 kg (242 lb 12.8 oz) PHYSICAL EXAMINATION: General appearance: Well appearing, alert, in no acute distress, well-hydrated, well nourished. Skin: Skin color, texture, turgor normal, no suspicious rashes or lesions Head: Normocephalic, no masses, lesions, tenderness or abnormalities Neck: Supple, no adenopathy; thyroid symmetric, normal size, no bruits Back: Normal exam Lungs: Lungs clear to auscultation. No wheezing, rhonchi, rales Heart: RRR without murmur, gallop, or rubs. No ectopy Abdomen: Normal abdominal exam, Abdomen soft, non-tender. Bowel sounds normal. No masses, organomegaly Extremities: No deformities, new edema, skin discoloration, clubbing or cyanosis. Good capillary refill. Feet:Shoes and socks removed, normal distal pulses, sensitive to 10 gm monofilament, calluses noted bilaterally, and bunion on the right. One plus chronic edema. ASSESSMENT/PLAN: 1. Primary hypertension - ICD9: 401.9, ICD10: I10 (primary diagnosis) - Controlled - Continue current medications 2. Other hyperlipidemia - ICD9: 272.4, ICD10: E78.49 - doing great with diet. 3. Fibromyalgia - ICD9: 729.1, ICD10: M79.7 - per rheum 4. Type 2 diabetes mellitus without complication, without long-term current use of insulin (HCC) - ICD9: 250.00, ICD10: E11.9 - Controlled - HGB A1C - diabetic shoes. 5. Stage 3 chronic kidney disease, unspecified whether stage 3a or 3b CKD (HCC) - ICD9: 585.3, ICD10: N18.30 - stable. 6. Panic disorder - ICD9: 300.01, ICD10: F41.0 - stable. 7. Rheumatoid arthritis, involving unspecified site, unspecified whether rheumatoid factor present (HCC) - ICD9: 714.0, ICD10: M06.9 - per rheum. 8. DDD (degenerative disc disease), lumbar - ICD9: 722.52, ICD10: M51.36 - per Dr. Ward 9. Obesity, Class II, BMI 35-39.9 - ICD9: 278.00, ICD10: E66.9 - doing well. 10. Encounter for screening mammogram for malignant neoplasm of breast - ICD9: V76.12, ICD10: Z12.31 - Follow up for annual exam in one year. - PATSY SCREENING Mikayla Strange MD documented in this encounter [facility] 05-09-2023 Miscellaneous Notes Last ov 10/25/2022 Next appointment scheduled 05/12/2023 Patient has been identified by name and date of : Yes Requested Prescriptions Pending Prescriptions Disp Refills hyoscyamine sublingual (LEVSIN/SL) 0.125 mg 60 tablet 3 Sig: Dissolve 1 tablet under the tongue every 4 hours as needed. RX INSTRUCTIONS: Patient aware RX will be sent to pharmacy. No need to notify patient. Neyda Ponce documented in this encounter [facility] 04-28-2023 Miscellaneous Notes Scheduled 05/12/23. Patient needs [facility] to go to [facility] for a 90 days supply as she only has a few left. TY Patient has been identified by name and date of : Yes Requested Prescriptions Pending Prescriptions Disp Refills lisinopril (ZESTRIL) 10 mg tablet 90 tablet 3 Sig: Take 1 tablet by mouth once daily. RX INSTRUCTIONS: Patient aware RX will be sent to pharmacy. No need to notify patient. Kimberly Ovalle documented in this encounter [facility] 01-04-2023 Miscellaneous Notes Patient has been identified by name and date of : Yes Requested Prescriptions Pending Prescriptions Disp Refills atorvastatin (LIPITOR) 10 mg tablet 90 tablet 3 Sig: Take 1 tablet by mouth once daily. busPIRone HCl 30 mg tablet 180 tablet 3 Sig: Take 1 tablet by mouth twice daily. SUMAtriptan (IMITREX) 50 mg tablet 9 tablet 3 Sig: Take 1 tablet by mouth as needed. RX INSTRUCTIONS: Patient aware RX will be sent to pharmacy. No need to notify patient. Jade Lopez LPN documented in this encounter [facility] 01-04-2023 Miscellaneous Notes Patient has been identified by name and date of : Yes Requested Prescriptions Pending Prescriptions Disp Refills promethazine (PHENERGAN) 25 mg suppository 24 Suppository 6 Si Suppository by RECTAL route every 6 hours as needed. hyoscyamine sublingual (LEVSIN/SL) 0.125 mg 60 tablet 3 Sig: Dissolve 1 tablet under the tongue every 4 hours as needed. promethazine (PHENERGAN) 25 mg tablet 24 tablet 6 Sig: Take 1 tablet by mouth every 6 hours as needed. RX INSTRUCTIONS: Patient aware RX will be sent to pharmacy. No need to notify patient. Jade Lopez LPN documented in this encounter [facility] 10-31-2022 Note HNO ID: [id number] Author: Comfort Muniz Service: ? Author Type: Physician Type: Progress Notes Filed: 11/03/2022 7:44 AM Note Text: FOLLOW UP PODIATRIC OFFICE VISIT Chief Complaint: This 62 year old who presents for follow up:left foot pain Patient presents to clinic for follow-up left foot pain. Patient continues to have pain in the left midfoot. The only thing making her pain better is the boot She has ct to review She is scheduled to receive custom inserts later this week. PAIN EVALUATION 10/31/2022 1318 Pain Level: 6 Pain Location: Foot-Left Description: Sharp;Stabbing Duration Amount of Time: 1.5 Duration Units: Years Frequency: Intermittent Intervention/Comfort measure: Relaxation;Reposition Hemoglobin A1C Date Value Ref Range Status 03/22/2022 6.0 (H) 4.3 - 5.6 % Final Comment: [place] [employer] guidelines indicate that patients with HgbA1c in the range 5.7-6.4% are at increased risk for development of diabetes, and intervention by lifestyle modification may be beneficial. HgbA1c greater or equal to 6.5% is considered diagnostic of diabetes. PCP: Mikayla Strange MD PAST MEDICAL HISTORY Diagnosis Date Anxiety disorder Arthritis Chronic back pain Dr. Burks-pain management Depressive disorder, not elsewhere classified Diabetes (HCC) Essential hypertension, benign Fibromyalgia Glaucoma IBS (irritable bowel syndrome) Migraine, unspecified, without mention of intractable migraine without mention of status migrainosus PONV (postoperative nausea and vomiting) Pure hypercholesterolemia Rheumatoid arthritis (HCC) Snoring Current Outpatient Medications Medication Sig metFORMIN ER (GLUCOPHAGE XR) 500 mg 24 hr tablet Take 1 tablet by mouth daily with breakfast. hyoscyamine sublingual (LEVSIN/SL) 0.125 mg Dissolve 1 tablet under the tongue every 4 hours as needed. citalopram (CELEXA) 40 mg tablet Take 1 tablet by mouth once daily. lisinopril (ZESTRIL, PRINIVIL) 10 mg tablet Take 1 tablet by mouth once daily. buprenorphine 20 mcg/hour ptwk APPLY 1 PATCH TOPICALLY ONCE A WEEK FOR 4 WEEKS oxyCODONE-acetaminophen (PERCOCET) 5-325 mg tablet 1 tablet three times daily as needed. promethazine (PHENERGAN) 25 mg suppository 1 Suppository by RECTAL route every 6 hours as needed. atorvastatin (LIPITOR) 10 mg tablet Take 1 tablet by mouth once daily. busPIRone HCl 30 mg tablet Take 1 tablet by mouth twice daily. SUMAtriptan (IMITREX) 50 mg tablet Take 1 tablet by mouth as needed. upadacitinib (RINVOQ ORAL) Take 15 mg by mouth. omeprazole (PRILOSEC) 40 mg capsule Take 40 mg by mouth once daily. amitriptyline (ELAVIL) 10 mg tablet Take 1 tablet by mouth daily at bedtime. gabapentin (NEURONTIN) 300 mg capsule Take 1 capsule by mouth four times daily. predniSONE (DELTASONE) 10 mg tablet Take 1 tablet by mouth as needed for Pain. promethazine (PHENERGAN) 25 mg tablet Take 1 tablet by mouth every 6 hours as needed. cyclobenzaprine (FLEXERIL) 10 mg tablet Take 10 mg by mouth three times daily as needed. Cetirizine 10 mg cap Take by mouth. CALCIUM POLYCARBOPHIL (FIBER LAXATIVE ORAL) Take by mouth. multivitamin tablet Take 1 tablet by mouth once daily. latanoprost (XALATAN) 0.005 % ophthalmic solution 1 Drop daily at bedtime. docusate sodium (COLACE) 100 mg capsule Take 100 mg by mouth twice daily. acetaminophen 300 mg-caffeine 40 mg-butalbital 50 mg (FIORICET) per capsule TAKE 1 CAPSULE BY MOUTH TWICE DAILY FOR 28 DAYS (Patient not taking: Reported on 10/31/2022) Current Facility-Administered Medications Medication Dose Route Frequency perflutren lipid microspheres 1.3 mL in NaCl (PF) 0.9% 10 mL injection (DEFINITY) INTRAVENOUS DIRECTED PRN sodium chloride 0.9 % (flush) 10 mL (BD POSIFLUSH) 10 mL INTRAVENOUS DIRECTED PRN ALLERGIES Allergen Reactions Jessica [Fexofenadi* Intolerance Augmentin [Amoxicil* Intolerance Bentyl [Dicyclomine* GI Upset Biaxin [Clarithromy* Intolerance Ceclor [Cefaclor] Intolerance Celebrex [Celecoxib] Intolerance Colestipol Other: See Comments shaky/headaches/increased nausea Compazine [Prochlor* Intolerance Doxepin Intolerance Fentanyl Intolerance Humira [Adalimumab] Intolerance Levaquin [Levofloxa* Intolerance Plaquenil [Hydroxyc* Intolerance Seldane Intolerance Septra [Sulfamethox* Intolerance Sulfa (Sulfonamide * Intolerance Vibramycin [Doxycyc* Intolerance Vicodin [Hydrocodon* Intolerance PAST SURGICAL HISTORY Procedure Laterality Date APPENDECTOMY 12/18/2014 Dr. Blakely APPENDECTOMY HX ARTHRP KNE CONDYLEANDPLATU MEDIALANDLAT COMPARTMENTS 04/22/2014 right COLONOSCOPY 05/27/2022 repeat in 10 years COLONOSCOPY FLX DX W/COLLJ SPEC WHEN PFRMD 10/01/2012 suboptimal - poor prep EGD ESOPHAGOGASTRODUODENOSCOPY TRANSORAL DIAGNOSTIC 07/30/2014 EGD JOINT REPLACEMENT HX LAPAROSCOPY SURG CHOLECYSTECTOMY 12/31/1993 PAST SURGICAL HI (more content not included)... [facility] 10-31-2022 Note HNO ID: [id number] Author: Adeline Herrera RN Service: ? Author Type: Registered Nurse Type: Progress Notes Filed: 11/03/2022 7:44 AM Note Text: AMB ROOMING INTAKE FLOWSHEET DATA Pain Pain Level: 6 Pain Location: Foot-Left Description: Sharp, Stabbing Duration Amount of Time: 1.5 Duration Units: Years Frequency: Intermittent Intervention/Comfort measure: Relaxation, Reposition Patient presents with: Left Foot - Established Patient, Follow Up, Pain Patient presents to review CT results and see what the next steps are. [facility] 10-31-2022 History of Present illness Narrative FOLLOW UP PODIATRIC OFFICE VISIT Chief Complaint: This 62 year old who presents for follow up:left foot pain Patient presents to clinic for follow-up left foot pain. Patient continues to have pain in the left midfoot. The only thing making her pain better is the boot She has ct to review She is scheduled to receive custom inserts later this week. PAIN EVALUATION 10/31/2022 1318 Pain Level: 6 Pain Location: Foot-Left Description: Sharp;Stabbing Duration Amount of Time: 1.5 Duration Units: Years Frequency: Intermittent Intervention/Comfort measure: Relaxation;Reposition Hemoglobin A1C Date Value Ref Range Status 03/22/2022 6.0 (H) 4.3 - 5.6 % Final Comment: [place] [employer] guidelines indicate that patients with HgbA1c in the range 5.7-6.4% are at increased risk for development of diabetes, and intervention by lifestyle modification may be beneficial. HgbA1c greater or equal to 6.5% is considered diagnostic of diabetes. PCP: Mikayla Strange MD PAST MEDICAL HISTORY Diagnosis Date Anxiety disorder Arthritis Chronic back pain Dr. Burks-pain management Depressive disorder, not elsewhere classified Diabetes (HCC) Essential hypertension, benign Fibromyalgia Glaucoma IBS (irritable bowel syndrome) Migraine, unspecified, without mention of intractable migraine without mention of status migrainosus PONV (postoperative nausea and vomiting) Pure hypercholesterolemia Rheumatoid arthritis (HCC) Snoring Current Outpatient Medications Medication Sig metFORMIN ER (GLUCOPHAGE XR) 500 mg 24 hr tablet Take 1 tablet by mouth daily with breakfast. hyoscyamine sublingual (LEVSIN/SL) 0.125 mg Dissolve 1 tablet under the tongue every 4 hours as needed. citalopram (CELEXA) 40 mg tablet Take 1 tablet by mouth once daily. lisinopril (ZESTRIL, PRINIVIL) 10 mg tablet Take 1 tablet by mouth once daily. buprenorphine 20 mcg/hour ptwk APPLY 1 PATCH TOPICALLY ONCE A WEEK FOR 4 WEEKS oxyCODONE-acetaminophen (PERCOCET) 5-325 mg tablet 1 tablet three times daily as needed. promethazine (PHENERGAN) 25 mg suppository 1 Suppository by RECTAL route every 6 hours as needed. atorvastatin (LIPITOR) 10 mg tablet Take 1 tablet by mouth once daily. busPIRone HCl 30 mg tablet Take 1 tablet by mouth twice daily. SUMAtriptan (IMITREX) 50 mg tablet Take 1 tablet by mouth as needed. upadacitinib (RINVOQ ORAL) Take 15 mg by mouth. omeprazole (PRILOSEC) 40 mg capsule Take 40 mg by mouth once daily. amitriptyline (ELAVIL) 10 mg tablet Take 1 tablet by mouth daily at bedtime. gabapentin (NEURONTIN) 300 mg capsule Take 1 capsule by mouth four times daily. predniSONE (DELTASONE) 10 mg tablet Take 1 tablet by mouth as needed for Pain. promethazine (PHENERGAN) 25 mg tablet Take 1 tablet by mouth every 6 hours as needed. cyclobenzaprine (FLEXERIL) 10 mg tablet Take 10 mg by mouth three times daily as needed. Cetirizine 10 mg cap Take by mouth. CALCIUM POLYCARBOPHIL (FIBER LAXATIVE ORAL) Take by mouth. multivitamin tablet Take 1 tablet by mouth once daily. latanoprost (XALATAN) 0.005 % ophthalmic solution 1 Drop daily at bedtime. docusate sodium (COLACE) 100 mg capsule Take 100 mg by mouth twice daily. acetaminophen 300 mg-caffeine 40 mg-butalbital 50 mg (FIORICET) per capsule TAKE 1 CAPSULE BY MOUTH TWICE DAILY FOR 28 DAYS (Patient not taking: Reported on 10/31/2022) Current Facility-Administered Medications Medication Dose Route Frequency perflutren lipid microspheres 1.3 mL in NaCl (PF) 0.9% 10 mL injection (DEFINITY) INTRAVENOUS DIRECTED PRN sodium chloride 0.9 % (flush) 10 mL (BD POSIFLUSH) 10 mL INTRAVENOUS DIRECTED PRN ALLERGIES Allergen Reactions Jessica [Fexofenadi* Intolerance Augmentin [Amoxicil* Intolerance Bentyl [Dicyclomine* GI Upset Biaxin [Clarithromy* Intolerance Ceclor [Cefaclor] Intolerance Celebrex [Celecoxib] Intolerance Colestipol Other: See Comments shaky/headaches/increased nausea Compazine [Prochlor* Intolerance Doxepin Intolerance Fentanyl Intolerance Humira [Adalimumab] Intolerance Levaquin [Levofloxa* Intolerance Plaquenil [Hydroxyc* Intolerance Seldane Intolerance Septra [Sulfamethox* Intolerance Sulfa (Sulfonamide * Intolerance Vibramycin [Doxycyc* Intolerance Vicodin [Hydrocodon* Intolerance PAST SURGICAL HISTORY Procedure Laterality Date APPENDECTOMY 12/18/2014 Dr. Blakely APPENDECTOMY HX ARTHRP KNE CONDYLE&PLATU MEDIAL&LAT COMPARTMENTS 04/22/2014 right COLONOSCOPY 05/27/2022 repeat in 10 years COLONOSCOPY FLX DX W/COLLJ SPEC WHEN PFRMD 10/01/2012 suboptimal - poor prep EGD ESOPHAGOGASTRODUODENOSCOPY TRANSORAL DIAGNOSTIC 07/30/2014 EGD JOINT REPLACEMENT HX LAPAROSCOPY SURG CHOLECYSTECTOMY 12/31/1993 PAST SURGICAL HISTORY OF 1994 knee, right arthroscopy TONSILLECTOMY HX TUBAL LIGATION HX 08/11/1997 VAGINAL HYSTERECTOMY Physical Exam: OBJECTIVE: Constitutional: Pt is a well developed 62 year old female who is alert, oriented, cooperative and in no apparent distress. Eyes: Following during examination. No redness or drainage. Respiratory: RR normal and nonlabored. Even breathing. No evidence of distress. Psychology: Patient is engaged during conversation. Normal affect and mood. Does not appear depressed or anxious. NVSI unchanged from previous visit. Dermatological: Nails 1-5 b/l are normal. Webspaces clean and dry 1-4 b/l. Skin appears well hydrated and supple. good color, texture, turgor. No open lesions present. No callosities present. Musculoskeletal/Orthopaedic: Patient has pain to palpation of left 2nd and 3rd tarsal metatarsal joint. Patient has pain to navicular cun joint. 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 Due to increased swelling around the navicular cun joint, there is concern of possible iatrogenic injury to tibialis anterior as this tendon is hard to palpate at insertion. Ultrasound guided injection may be an option to consider. I will discuss with [facility]. Last option include surgical arthrodesis Patient is interested in trying the inserts and if pain continues, consider injection Discussed ununited fracture. She has no pain to this location. If pain were present, would consider orif with bone graft Comfort Muniz DPM AMB ROOMING INTAKE FLOWSHEET DATA Pain Pain Level: 6 Pain Location: Foot-Left Description: Sharp, Stabbing Duration Amount of Time: 1.5 Duration Units: Years Frequency: Intermittent Intervention/Comfort measure: Relaxation, Reposition Patient presents with: Left Foot - Established Patient, Follow Up, Pain Patient presents to review CT results and see what the next steps are. documented in this encounter [facility] 10-25-2022 Note HNO ID: [id number] Author: Mikayla Strange MD Service: ? Author Type: Physician Type: Progress Notes Filed: 10/25/2022 1:27 PM Note Text: Patient presents with: Physical HPI: Patient presents today for office visit for check up, not medicare wellness. Still seeing Dr. Buck for rheumatoid arthritis and is on rinvoq. She is avoiding nsaids due to her renal function. Discussed in detail. She also has a mild anemia possibly secondary to that. Takes steroids prn. Seeing podiatry and remains in a boot. DM:not watching her diet as closely. Has been more thirsty. Due for labs. No issues from her lipid lowering meds. PSYCH: having a large amount of stress at home. Meds are doing ok. Seeing Dr. Ward for her pain issues. Is off of her medical marijuana. Her vomiting as improved. HYPERTENSION: bp is well controlled. No chest pain No shortness of breath No edema. MEDICATIONS: Current Outpatient Medications Medication Sig metFORMIN ER (GLUCOPHAGE XR) 500 mg 24 hr tablet Take 1 tablet by mouth daily with breakfast. hyoscyamine sublingual (LEVSIN/SL) 0.125 mg Dissolve 1 tablet under the tongue every 4 hours as needed. citalopram (CELEXA) 40 mg tablet Take 1 tablet by mouth once daily. lisinopril (ZESTRIL, PRINIVIL) 10 mg tablet Take 1 tablet by mouth once daily. buprenorphine 20 mcg/hour ptwk APPLY 1 PATCH TOPICALLY ONCE A WEEK FOR 4 WEEKS oxyCODONE-acetaminophen (PERCOCET) 5-325 mg tablet 1 tablet three times daily as needed. promethazine (PHENERGAN) 25 mg suppository 1 Suppository by RECTAL route every 6 hours as needed. atorvastatin (LIPITOR) 10 mg tablet Take 1 tablet by mouth once daily. busPIRone HCl 30 mg tablet Take 1 tablet by mouth twice daily. SUMAtriptan (IMITREX) 50 mg tablet Take 1 tablet by mouth as needed. upadacitinib (RINVOQ ORAL) Take 15 mg by mouth. omeprazole (PRILOSEC) 40 mg capsule Take 40 mg by mouth once daily. amitriptyline (ELAVIL) 10 mg tablet Take 1 tablet by mouth daily at bedtime. gabapentin (NEURONTIN) 300 mg capsule Take 1 capsule by mouth four times daily. predniSONE (DELTASONE) 10 mg tablet Take 1 tablet by mouth as needed for Pain. promethazine (PHENERGAN) 25 mg tablet Take 1 tablet by mouth every 6 hours as needed. cyclobenzaprine (FLEXERIL) 10 mg tablet Take 10 mg by mouth three times daily as needed. Cetirizine 10 mg cap Take by mouth. CALCIUM POLYCARBOPHIL (FIBER LAXATIVE ORAL) Take by mouth. multivitamin tablet Take 1 tablet by mouth once daily. latanoprost (XALATAN) 0.005 % ophthalmic solution 1 Drop daily at bedtime. docusate sodium (COLACE) 100 mg capsule Take 100 mg by mouth twice daily. acetaminophen 300 mg-caffeine 40 mg-butalbital 50 mg (FIORICET) per capsule TAKE 1 CAPSULE BY MOUTH TWICE DAILY FOR 28 DAYS Current Facility-Administered Medications Medication Dose Route Frequency perflutren lipid microspheres 1.3 mL in NaCl (PF) 0.9% 10 mL injection (DEFINITY) INTRAVENOUS DIRECTED PRN sodium chloride 0.9 % (flush) 10 mL (BD POSIFLUSH) 10 mL INTRAVENOUS DIRECTED PRN ALLERGIES: ALLERGIES Allergen Reactions Jessica [Fexofenadi* Intolerance Augmentin [Amoxicil* Intolerance Bentyl [Dicyclomine* GI Upset Biaxin [Clarithromy* Intolerance Ceclor [Cefaclor] Intolerance Celebrex [Celecoxib] Intolerance Colestipol Other: See Comments shaky/headaches/increased nausea Compazine [Prochlor* Intolerance Doxepin Intolerance Fentanyl Intolerance Humira [Adalimumab] Intolerance Levaquin [Levofloxa* Intolerance Plaquenil [Hydroxyc* Intolerance Seldane Intolerance Septra [Sulfamethox* Intolerance Sulfa (Sulfonamide * Intolerance Vibramycin [Doxycyc* Intolerance Vicodin [Hydrocodon* Intolerance PAST MEDICAL HISTORY Diagnosis Date Anxiety disorder Arthritis Chronic back pain Dr. Burks-pain management Depressive disorder, not elsewhere classified Diabetes (HCC) Essential hypertension, benign Fibromyalgia Glaucoma IBS (irritable bowel syndrome) Migraine, unspecified, without mention of intractable migraine without mention of status migrainosus PONV (postoperative nausea and vomiting) Pure hypercholesterolemia Rheumatoid arthritis (HCC) Snoring PAST SURGICAL HISTORY Procedure Laterality Date APPENDECTOMY 12/18/2014 Dr. Blakely APPENDECTOMY HX ARTHRP KNE CONDYLEANDPLATU MEDIALANDLAT COMPARTMENTS 04/22/2014 right COLONOSCOPY 05/27/2022 repeat in 10 years COLONOSCOPY FLX DX W/COLLJ SPEC WHEN PFRMD 10/01/2012 suboptimal - poor prep EGD ESOPHAGOGASTRODUODENOSCOPY TRANSORAL DIAGNOSTIC 07/30/2014 EGD JOINT REPLACEMENT HX LAPAROSCOPY SURG CHOLECYSTECTOMY 12/31/1993 PAST SURGICAL HISTORY OF 1994 knee, right arthroscopy TONSILLECTOMY HX TUBAL LIGATION HX 08/11/1997 VAGINAL HYSTERECTOMY FAMILY HISTORY Problem Relation Age of Onset Diabetes Mother Hypertension Mother Heart Attack Mother Diabetes Father Hypertension Father (more content not included)... [facility] documented as of this encounter (statuses as of 05/12/2023) [facility]05-02-2023 History of Past illness Narrative* Problem Noted Date Diagnosed Date Resolved Date Obesity, Class III, BMI 40-4 9.9 (morbid obesity) 10/25/2022 05/12/2023 Elevated BP without diagnosis of hypertension 11/18/19 22 01/14/2022 Hyperglycemia 05/11/2019 03/12/2021 Overview: Had last hba1c which was stable 04/13 Nausea alone 07/30/2014 07/30/2014 Abdominal pain, epigastric 07/30/2014 0 07/30/2014 Chronic back pain 09/17/2021 Overview: Dr. Burks-pain management documented as of this encounter (statuses as of 05/30/2023) [facility]-02-2023 History of Past illness Narrative* Problem Noted Date Diagnosed Date Resolved Date Obesity, Class III, BMI 40-4 9.9 (morbid obesity) 10/25/2022 05/12/2023 Elevated BP without diagnosis of hypertension 11/18/19 22 01/14/2022 Hyperglycemia 05/11/2019 03/12/2021 Overview: Had last hba1c which was stable 04/13 Nausea alone 07/30/2014 07/30/2014 Abdominal pain, epigastric 07/30/2014 0 07/30/2014 Chronic back pain 09/17/2021 Overview: Dr. Burks-pain management documented as of this encounter (statuses as of 06/01/2023) [facility] History of Past illness Narrative* Problem Noted Date Diagnosed Date Resolved Date Obesity, Class III, BMI 40-4 9.9 (morbid obesity) 10/25/2022 05/12/2023 Elevated BP without diagnosis of hypertension 11/18/19 22 01/14/2022 Hyperglycemia 05/11/2019 03/12/2021 Overview: Had last hba1c which was stable 04/13 Nausea alone 07/30/2014 07/30/2014 Abdominal pain, epigastric 07/30/2014 0 07/30/2014 Chronic back pain 09/17/2021 Overview: Dr. Burks-pain management documented as of this encounter (statuses as of 08/08/2023) [facility] History of Present illness Narrative* Mikayla Strange MD - 10/25/2022 1:02 PM EDT Patient presents with: Physical HPI: Patient presents today for office visit for check up, not medicare wellness. Still seeing Dr. Buck for rheumatoid arthritis and is on rinvoq. She is avoiding nsaids due to her renal function. Discussed in detail. She also has a mild anemia possibly secondary to that. Takes steroids prn. Seeing podiatry and remains in a boot. DM:not watching her diet as closely. Has been more thirsty. Due for labs. No issues from her lipid lowering meds. PSYCH: having a large amount of stress at home. Meds are doing ok. Seeing Dr. Ward for her pain issues. Is off of her medical marijuana. Her vomiting as improved. HYPERTENSION: bp is well controlled. No chest pain No shortness of breath No edema. MEDICATIONS: Current Outpatient Medications Medication Sig metFORMIN ER (GLUCOPHAGE XR) 500 mg 24 hr tablet Take 1 tablet by mouth daily with breakfast. hyoscyamine sublingual (LEVSIN/SL) 0.125 mg Dissolve 1 tablet under the tongue every 4 hours as needed. citalopram (CELEXA) 40 mg tablet Take 1 tablet by mouth once daily. lisinopril (ZESTRIL, PRINIVIL) 10 mg tablet Take 1 tablet by mouth once daily. buprenorphine 20 mcg/hour ptwk APPLY 1 PATCH TOPICALLY ONCE A WEEK FOR 4 WEEKS oxyCODONE-acetaminophen (PERCOCET) 5-325 mg tablet 1 tablet three times daily as needed. promethazine (PHENERGAN) 25 mg suppository 1 Suppository by RECTAL route every 6 hours as needed. atorvastatin (LIPITOR) 10 mg tablet Take 1 tablet by mouth once daily. busPIRone HCl 30 mg tablet Take 1 tablet by mouth twice daily. SUMAtriptan (IMITREX) 50 mg tablet Take 1 tablet by mouth as needed. upadacitinib (RINVOQ ORAL) Take 15 mg by mouth. omeprazole (PRILOSEC) 40 mg capsule Take 40 mg by mouth once daily. amitriptyline (ELAVIL) 10 mg tablet Take 1 tablet by mouth daily at bedtime. gabapentin (NEURONTIN) 300 mg capsule Take 1 capsule by mouth four times daily. predniSONE (DELTASONE) 10 mg tablet Take 1 tablet by mouth as needed for Pain. promethazine (PHENERGAN) 25 mg tablet Take 1 tablet by mouth every 6 hours as needed. cyclobenzaprine (FLEXERIL) 10 mg tablet Take 10 mg by mouth three times daily as needed. Cetirizine 10 mg cap Take by mouth. CALCIUM POLYCARBOPHIL (FIBER LAXATIVE ORAL) Take by mouth. multivitamin tablet Take 1 tablet by mouth once daily. latanoprost (XALATAN) 0.005 % ophthalmic solution 1 Drop daily at bedtime. docusate sodium (COLACE) 100 mg capsule Take 100 mg by mouth twice daily. acetaminophen 300 mg-caffeine 40 mg-butalbital 50 mg (FIORICET) per capsule TAKE 1 CAPSULE BY MOUTHTWICE DAILY FOR 28 DAYS Current Facility-Administered Medications Medication Dose Route Frequency perflutren lipid microspheres 1.3 mL in NaCl (PF) 0.9% 10 mL injection (DEFINITY) INTRAVENOUS DIRECTED PRN sodium chloride 0.9 % (flush) 10 mL (BD POSIFLUSH) 10 mL INTRAVENOUS DIRECTED PRN ALLERGIES: ALLERGIES Allergen Reactions Jessica [Fexofenadi* Intolerance Augmentin [Amoxicil* Intolerance Bentyl [Dicyclomine* GI Upset Biaxin [Clarithromy* Intolerance Ceclor [Cefaclor] Intolerance Celebrex [Celecoxib] Intolerance Colestipol Other: See Comments shaky/headaches/increased nausea Compazine [Prochlor* Intolerance Doxepin Intolerance Fentanyl Intolerance Humira [Adalimumab] Intolerance Levaquin [Levofloxa* Intolerance Plaquenil [Hydroxyc* Intolerance Seldane Intolerance Septra [Sulfamethox* Intolerance Sulfa (Sulfonamide * Intolerance Vibramycin [Doxycyc* Intolerance Vicodin [Hydrocodon* Intolerance PAST MEDICAL HISTORY Diagnosis Date Anxiety disorder Arthritis Chronic back pain Dr. Burks-pain management Depressive disorder, not elsewhere classified Diabetes (HCC) Essential hypertension, benign Fibromyalgia Glaucoma IBS (irritable bowel syndrome) Migraine, unspecified, without mention of intractable migraine without mention of status migrainosus PONV (postoperative nausea and vomiting) Pure hypercholesterolemia Rheumatoid arthritis (HCC) Snoring PAST SURGICAL HISTORY Procedure Laterality Date APPENDECTOMY 12/18/2014 Dr. Blakely APPENDECTOMY HX ARTHRP KNE CONDYLE&PLATU MEDIAL&LAT COMPARTMENTS 04/22/2014 right COLONOSCOPY 05/27/2022 repeat in 10 years COLONOSCOPY FLX DX W/COLLJ SPEC WHEN PFRMD 10/01/2012 suboptimal - poor prep EGD ESOPHAGOGASTRODUODENOSCOPY TRANSORAL DIAGNOSTIC 07/30/2014 EGD JOINT REPLACEMENT HX LAPAROSCOPY SURG CHOLECYSTECTOMY 12/31/1993 PAST SURGICAL HISTORY OF 1994 knee, right arthroscopy TONSILLECTOMY HX TUBAL LIGATION HX 08/11/1997 VAGINAL HYSTERECTOMY FAMILY HISTORY Problem Relation Age of Onset Diabetes Mother Hypertension Mother Heart Attack Mother Diabetes Father Hypertension Father Heart Attack Father COPD Sister other (sjorgens) Sister affects vision other (Other) Sister lupus Bipolar disorder Daughter Diabetes Maternal Grandmother Social History Tobacco Use Smoking status: Never Smokeless tobacco: Never Vaping Use Vaping Use: Never used Substance Use Topics Alcohol use: No Drug use: No Reviewed current medications, allergies, past medical history, surgical history, family history andsocial history today. REVIEW OF SYSTEMS All other reviewed and negative other than HPI. HEALTH MAINTENANCE: Reviewed health maintenance issues today and recommended the following in detail. COVID-19 VACCINE(1) Never done PNEUMOCOCCAL(1 - PCV) Never done BP CONTROLLED (<130/80) Never done DTAP,TDAP,TD(1 - Tdap) Never done DEPRESSION ASSESSMENT Never done DILATED RETINAL EXAM -seeing her eye doctor every four months. HBA1C due on 09/19/2022 LDL CHOLESTEROL due on 09/23/2022 URINE ALBUMIN:CREATININE RATIO due on 10/25/2022 VITALS: BP 112/64 Pulse 82 Resp 16 Ht 165.1 cm (5' 5 ) Wt 105.2 kg (232 lb) BMI 38.61 kg/m Last 4 Encounter Wt Readings: Date: Wt: 10/25/2022 105.2 kg (232 lb) 06/22/2022 115.8 kg (255 lb 6.4 oz) 05/27/2022 110.1 kg (242 lb 11.6 oz) 04/19/2022 110.1 kg (242 lb 12.8 oz) PHYSICAL EXAMINATION: General appearance: Well appearing, alert, in no acute distress, well-hydrated, well nourished. Skin: Skin color, texture, turgor normal, no suspicious rashes or lesions Head: Normocephalic, no masses, lesions, tenderness or abnormalities Neck: Supple, no adenopathy; thyroid symmetric, normal size, no bruits Lungs: Lungs clear to auscultation. No wheezing, rhonchi, rales Heart: RRR without murmur, gallop, or rubs. No ectopy Abdomen: Normal abdominal exam, Abdomen soft, non-tender. Bowel sounds normal. No masses, organomegaly Extremities: No deformities, edema, skin discoloration, clubbing or cyanosis. Good capillary refill. Musculoskeletal: No joint swelling, deformity, or tenderness Peripheral pulses: Normal Neuro: Negative. ASSESSMENT/PLAN: 1. Primary hypertension - ICD9: 401.9, ICD10: I10 (primary diagnosis) - good control - Continue current medication(s) - Goal of BP <130/80 - BASIC METABOLIC PNL 2. Obesity, Class III, BMI 40-49.9 (morbid obesity) ([facility]) - ICD9: 278.01, ICD10: E66.01 - discussed stress with her diet. 3. Other hyperlipidemia - ICD9: 272.4, ICD10: E78.49 - follow labs. - LIPID PANEL BASIC 4. Type 2 diabetes mellitus without complication, without long-term current use of insulin (HCC) - ICD9: 250.00, ICD10: E11.9 - Controlled - Continue current medications - HGB A1C - ALBUMIN/CREAT RATIO RND UR 5. DDD (degenerative disc disease), lumbar - ICD9: 722.52, ICD10: M51.36 - still seeing pain management. 6. Rheumatoid arthritis, involving unspecified site, unspecified whether rheumatoid factor present ([facility]) - ICD9: 714.0, ICD10: M06.9 - stable, per rheu. 7. Stage 3 chronic kidney disease, unspecified whether stage 3a or 3b CKD (HCC) - ICD9: 585.3, ICD10: N18.30 - follow labs. Avoid nsaids 8. Anemia, unspecified type - ICD9: 285.9, ICD10: D64.9 - follow labs. - CBC + DIFF - IRON + TIBC - VITAMIN B12 BLOOD - FOLATE SERUM - FERRITIN BLD Mikayla Strange MD RTO in six months [facility] Miscellaneous Notes* Telephone Encounter - Neyda Ponce - 10/18/2022 2:00 PM EDT Patient has been identified by name and date of : Yes Requested Prescriptions Pending Prescriptions Disp Refills metFORMIN ER (GLUCOPHAGE XR) 500 mg 24 hr tablet 90 tablet 3 Sig: Take 1 tablet by mouth daily with breakfast. RX INSTRUCTIONS: Patient aware RX will be sent to pharmacy. No need to notify patient. Neyda Ponce [facility] Miscellaneous Notes* Telephone Encounter - Sheba Morgan LPN - 10/07/2022 1:57 PM EDT Patient scheduled appt for 10/[address] results [address] Dr[address] Muniz. Sheba Morgan LPN * Telephone Encounter - Comfort Muniz - 09/23/2022 5:08 PM EDT I attempted to contact patient with results of ct. No call. Left message for patient to contact me Comfort Muniz DPM documented in [facility]Ge[facility]-2023 NoteHNO ID: [id number] Author: RT Uli(R) Service: ? Author Type: Brusher Warp Type: Progress Notes Filed: 09/12/2022 3:12 PM Note Text: Radiology Service Progress Note PATIENT NAME: Keyla Engle DATE OF SERVICE: September 12, 2022 TIME: 3:12 PM PATIENT IDENTITY VERIFICATION COMPLETED USING TWO (2) IDENTIFIERS: Name and Date of confirmed by patient verbally. FALL SCREENING: Has the patient had 2 falls in the last year or 1 fall with injury or currently using an Ambulatory Assistive Device (Walker, Cane, Wheelchair, Crutches, etc.)? No PATIENT GENDER DATA: Female. status: : No status: NO. PATIENT RELEVANT IMPLANT DATA REVIEWED: Yes RADIOLOGY DEPARTMENT: CT; Exam(s) Completed: lt foot w/o PERIPHERAL IV DATA: Not applicable SIGNED BY: RT Clover(R) September 12, 2022 3:12 [facility]03-20-2023 History of Present illness Narrative* Lula Arrington RT(R) - 09/12/2022 1:40 PM EDT Radiology Service Progress Note PATIENT NAME: Keyla Engle DATE OF SERVICE: September 12, 2022 TIME: 3:12 PM PATIENT IDENTITY VERIFICATION COMPLETED USING TWO (2) IDENTIFIERS: Name and Date of confirmedby patient verbally. FALL SCREENING: Has the patient had 2 falls in the last year or 1 fall with injury or currently using an Ambulatory Assistive Device (Walker, Cane, Wheelchair, Crutches, etc.)? No PATIENT GENDER DATA: Female. status: : No status: NO. PATIENT RELEVANT IMPLANT DATA REVIEWED: Yes RADIOLOGY DEPARTMENT: CT; Exam(s) Completed: lt foot w/o PERIPHERAL IV DATA: Not applicable SIGNED BY: RT Clover(R) September 12, 2022 3:12 PM documented in this encounterGe[facility]03-08-2023 Miscellaneous Notes* Telephone Encounter - Milagros Diaz RN - 08/31/2022 4:17 PM EST Phone call to patient. She states she does not have a rash. No itching, redness to foot. Patient towait until after CT to reschedule injection. CT is scheduled on 09/12/22. * Telephone Encounter - Comfort Muniz - 08/29/2022 4:51 PM EST I attempted to contact patient to see how her rash was doing and to discuss options not limited to setting up repeat injection vs consideration into doing an ultrasound guided aspiration. No answer. I left message saying I will try again later Comfort Muniz DPM * Telephone Encounter - Adeline Herrera RN - 08/29/2022 11:[address] scheduled for 09/12 * Telephone Encounter - Selam Mccartney - 08/27/2022 9:38 AM EST 03- first attempt to contact patient. Left message to return call Selam Mccartney * Telephone Encounter - Comfort Muniz - 08/26/2022 2:16 PM EST Patient was scheduled for xray guided injection of left navicular cun joint today. I saw patient inpre-op holding area and did not appreciate any rash to her foot. Upon entering the operative suite, I noticed a rash along the left midfoot along the course of the tibialist anterior and focal to the navicular cun joint. I expressed concern about this rash and howmy concern for proceeding with injection. Patient and I elected to hold on injection. Will provide her topical cream for the rash. She has considerable pain in the navicular cun joint so we can try to consider repeating injection once rash is resolved. I would like to explore getting ct scan too. documented in this encounterGeorgetown [facility]al Hospital02-28-2023 Miscellaneous Notes* Telephone Encounter - Adeline Herrera RN - 08/23/2022 9:57 AM EST Referral entered into [facility]. * Telephone Encounter - Shanae Rahman LPN - 08/23/2022 8:49 AM EST Monik with [facility] pre cert called asking if patient had pre certification verified for surgery? Please advise Thank you. Monik# [phone] Shanae Rahman LPN documented in this encounterGeorgetown [facility]al Hospital02-26-2023 NoteHNO ID: [id number] Author: Comfort Muniz Service: ? Author Type: Physician Type: Progress Notes Filed: 08/20/2022 10:33 PM Note Text: FOLLOW UP PODIATRIC OFFICE VISIT Chief Complaint: This 62 year old who presents for follow up:left foot pain Patient presents to clinic for follow-up left foot pain Patient continues to have pain along left midfoot (navicular cun). She is using boot which is helping. She is here to set up xray guided injection of left midfoot. PAIN EVALUATION 08/18/2022 1528 Pain Level: 9 Pain Location: Foot-Left Description: Stabbing;Sharp Duration Amount of Time: 2 Duration Units: Years Frequency: Intermittent Intervention/Comfort measure: Reposition;Relaxation;Medication Hemoglobin A1C Date Value Ref Range Status 03/22/2022 6.0 (H) 4.3 - 5.6 % Final Comment: [place] [employer] guidelines indicate that patients with HgbA1c in the range 5.7-6.4% are at increased risk for development of diabetes, and intervention by lifestyle modification may be beneficial. HgbA1c greater or equal to 6.5% is considered diagnostic of diabetes. PCP: Mikayla Strange MD PAST MEDICAL HISTORY Diagnosis Date Anxiety disorder Arthritis Chronic back pain Dr. Burks-pain management Depressive disorder, not elsewhere classified Diabetes (HCC) Essential hypertension, benign Fibromyalgia Glaucoma IBS (irritable bowel syndrome) Migraine, unspecified, without mention of intractable migraine without mention of status migrainosus PONV (postoperative nausea and vomiting) Pure hypercholesterolemia Rheumatoid arthritis (HCC) Snoring Current Outpatient Medications Medication Sig hyoscyamine sublingual (LEVSIN/SL) 0.125 mg Dissolve 1 tablet under the tongue every 4 hours as needed. citalopram (CELEXA) 40 mg tablet Take 1 tablet by mouth once daily. lisinopril (ZESTRIL, PRINIVIL) 10 mg tablet Take 1 tablet by mouth once daily. buprenorphine 20 mcg/hour ptwk APPLY 1 PATCH TOPICALLY ONCE A WEEK FOR 4 WEEKS oxyCODONE-acetaminophen (PERCOCET) 5-325 mg tablet 1 tablet three times daily as needed. promethazine (PHENERGAN) 25 mg suppository 1 Suppository by RECTAL route every 6 hours as needed. atorvastatin (LIPITOR) 10 mg tablet Take 1 tablet by mouth once daily. metFORMIN ER (GLUCOPHAGE XR) 500 mg 24 hr tablet Take 1 tablet by mouth daily with breakfast. busPIRone HCl 30 mg tablet Take 1 tablet by mouth twice daily. SUMAtriptan (IMITREX) 50 mg tablet Take 1 tablet by mouth as needed. upadacitinib (RINVOQ ORAL) Take 15 mg by mouth. omeprazole (PRILOSEC) 40 mg capsule Take 40 mg by mouth once daily. amitriptyline (ELAVIL) 10 mg tablet Take 1 tablet by mouth daily at bedtime. gabapentin (NEURONTIN) 300 mg capsule Take 1 capsule by mouth four times daily. predniSONE (DELTASONE) 10 mg tablet Take 1 tablet by mouth as needed for Pain. promethazine (PHENERGAN) 25 mg tablet Take 1 tablet by mouth every 6 hours as needed. meloxicam (MOBIC) 7.5 mg tablet Take 7.5 mg by mouth once daily. cyclobenzaprine (FLEXERIL) 10 mg tablet Take 10 mg by mouth three times daily as needed. Cetirizine 10 mg cap Take by mouth. CALCIUM POLYCARBOPHIL (FIBER LAXATIVE ORAL) Take by mouth. multivitamin tablet Take 1 tablet by mouth once daily. latanoprost (XALATAN) 0.005 % ophthalmic solution 1 Drop daily at bedtime. docusate sodium (COLACE) 100 mg capsule Take 100 mg by mouth twice daily. acetaminophen 300 mg-caffeine 40 mg-butalbital 50 mg (FIORICET) per capsule TAKE 1 CAPSULE BY MOUTH TWICE DAILY FOR 28 DAYS (Patient not taking: No sig reported) Current Facility-Administered Medications Medication Dose Route Frequency perflutren lipid microspheres 1.3 mL in NaCl (PF) 0.9% 10 mL injection (DEFINITY) INTRAVENOUS DIRECTED PRN sodium chloride 0.9 % (flush) 10 mL (BD POSIFLUSH) 10 mL INTRAVENOUS DIRECTED PRN ALLERGIES Allergen Reactions Jessica [Fexofenadi* Intolerance Augmentin [Amoxicil* Intolerance Bentyl [Dicyclomine* GI Upset Biaxin [Clarithromy* Intolerance Ceclor [Cefaclor] Intolerance Celebrex [Celecoxib] Intolerance Colestipol Other: See Comments shaky/headaches/increased nausea Compazine [Prochlor* Intolerance Doxepin Intolerance Fentanyl Intolerance Humira [Adalimumab] Intolerance Levaquin [Levofloxa* Intolerance Plaquenil [Hydroxyc* Intolerance Seldane Intolerance Septra [Sulfamethox* Intolerance Sulfa (Sulfonamide * Intolerance Vibramycin [Doxycyc* Intolerance Vicodin [Hydrocodon* Intolerance PAST SURGICAL HISTORY Procedure Laterality Date APPENDECTOMY 12/18/2014 Dr. Blakely APPENDECTOMY HX ARTHRP KNE CONDYLEANDPLATU MEDIALANDLAT COMPARTMENTS 04/22/2014 right COLONOSCOPY 05/27/2022 repeat in 10 years COLONOSCOPY FLX DX W/COLLJ SPEC WHEN PFRMD 10/01/2012 suboptimal - poor prep EGD ESOPHAGOGASTRODUODENOSCOPY TRANSORAL DIAGNOSTIC 07/30/2014 EGD JOINT REPLACEMENT HX LAPAROSCOPY (more content not included)...[facility]02-25-2023 History of Present illness Narrative* Comfort Muniz - 08/20/2022 10:30 PM EST FOLLOW UP PODIATRIC OFFICE VISIT Chief Complaint: This 62 year old who presents for follow up:left foot pain Patient presents to clinic for follow-up left foot pain Patient continues to have pain along left midfoot (navicular cun). She is using boot which is helping. She is here to set up xray guided injection of left midfoot. PAIN EVALUATION 08/18/2022 1528 Pain Level: 9 Pain Location: Foot-Left Description: Stabbing;Sharp Duration Amount of Time: 2 Duration Units: Years Frequency: Intermittent Intervention/Comfort measure: Reposition;Relaxation;Medication Hemoglobin A1C Date Value Ref Range Status 03/22/2022 6.0 (H) 4.3 - 5.6 % Final Comment: [place] [employer] guidelines indicate that patients with HgbA1c in the range 5.7-6.4% are at increased risk for development of diabetes, and intervention by lifestyle modification may be beneficial. HgbA1c greater or equal to 6.5% is considered diagnostic of diabetes. PCP: Mikayla Strange MD PAST MEDICAL HISTORY Diagnosis Date Anxiety disorder Arthritis Chronic back pain Dr. Burks-pain management Depressive disorder, not elsewhere classified Diabetes (HCC) Essential hypertension, benign Fibromyalgia Glaucoma IBS (irritable bowel syndrome) Migraine, unspecified, without mention of intractable migraine without mention of status migrainosus PONV (postoperative nausea and vomiting) Pure hypercholesterolemia Rheumatoid arthritis (HCC) Snoring Current Outpatient Medications Medication Sig hyoscyamine sublingual (LEVSIN/SL) 0.125 mg Dissolve 1 tablet under the tongue every 4 hours as needed. citalopram (CELEXA) 40 mg tablet Take 1 tablet by mouth once daily. lisinopril (ZESTRIL, PRINIVIL) 10 mg tablet Take 1 tablet by mouth once daily. buprenorphine 20 mcg/hour ptwk APPLY 1 PATCH TOPICALLY ONCE A WEEK FOR 4 WEEKS oxyCODONE-acetaminophen (PERCOCET) 5-325 mg tablet 1 tablet three times daily as needed. promethazine (PHENERGAN) 25 mg suppository 1 Suppository by RECTAL route every 6 hours as needed. atorvastatin (LIPITOR) 10 mg tablet Take 1 tablet by mouth once daily. metFORMIN ER (GLUCOPHAGE XR) 500 mg 24 hr tablet Take 1 tablet by mouth daily with breakfast. busPIRone HCl 30 mg tablet Take 1 tablet by mouth twice daily. SUMAtriptan (IMITREX) 50 mg tablet Take 1 tablet by mouth as needed. upadacitinib (RINVOQ ORAL) Take 15 mg by mouth. omeprazole (PRILOSEC) 40 mg capsule Take 40 mg by mouth once daily. amitriptyline (ELAVIL) 10 mg tablet Take 1 tablet by mouth daily at bedtime. gabapentin (NEURONTIN) 300 mg capsule Take 1 capsule by mouth four times daily. predniSONE (DELTASONE) 10 mg tablet Take 1 tablet by mouth as needed for Pain. promethazine (PHENERGAN) 25 mg tablet Take 1 tablet by mouth every 6 hours as needed. meloxicam (MOBIC) 7.5 mg tablet Take 7.5 mg by mouth once daily. cyclobenzaprine (FLEXERIL) 10 mg tablet Take 10 mg by mouth three times daily as needed. Cetirizine 10 mg cap Take by mouth. CALCIUM POLYCARBOPHIL (FIBER LAXATIVE ORAL) Take by mouth. multivitamin tablet Take 1 tablet by mouth once daily. latanoprost (XALATAN) 0.005 % ophthalmic solution 1 Drop daily at bedtime. docusate sodium (COLACE) 100 mg capsule Take 100 mg by mouth twice daily. acetaminophen 300 mg-caffeine 40 mg-butalbital 50 mg (FIORICET) per capsule TAKE 1 CAPSULE BY MOUTHTWICE DAILY FOR 28 DAYS (Patient not taking: No sig reported) Current Facility-Administered Medications Medication Dose Route Frequency perflutren lipid microspheres 1.3 mL in NaCl (PF) 0.9% 10 mL injection (DEFINITY) INTRAVENOUS DIRECTED PRN sodium chloride 0.9 % (flush) 10 mL (BD POSIFLUSH) 10 mL INTRAVENOUS DIRECTED PRN ALLERGIES Allergen Reactions Jessica [Fexofenadi* Intolerance Augmentin [Amoxicil* Intolerance Bentyl [Dicyclomine* GI Upset Biaxin [Clarithromy* Intolerance Ceclor [Cefaclor] Intolerance Celebrex [Celecoxib] Intolerance Colestipol Other: See Comments shaky/headaches/increased nausea Compazine [Prochlor* Intolerance Doxepin Intolerance Fentanyl Intolerance Humira [Adalimumab] Intolerance Levaquin [Levofloxa* Intolerance Plaquenil [Hydroxyc* Intolerance Seldane Intolerance Septra [Sulfamethox* Intolerance Sulfa (Sulfonamide * Intolerance Vibramycin [Doxycyc* Intolerance Vicodin [Hydrocodon* Intolerance PAST SURGICAL HISTORY Procedure Laterality Date APPENDECTOMY 12/18/2014 Dr. Blakely APPENDECTOMY HX ARTHRP KNE CONDYLE&PLATU MEDIAL&LAT COMPARTMENTS 04/22/2014 right COLONOSCOPY 05/27/2022 repeat in 10 years COLONOSCOPY FLX DX W/COLLJ SPEC WHEN PFRMD 10/01/2012 suboptimal - poor prep EGD 1989' ESOPHAGOGASTRODUODENOSCOPY TRANSORAL DIAGNOSTIC 07/30/2014 EGD JOINT REPLACEMENT HX LAPAROSCOPY SURG CHOLECYSTECTOMY 12/31/1993 PAST SURGICAL HISTORY OF 1994 knee, right arthroscopy TONSILLECTOMY HX TUBAL LIGATION HX 08/11/1997 VAGINAL HYSTERECTOMY Physical Exam: OBJECTIVE: Constitutional: Pt is a well developed 62 year old female who is alert, oriented, cooperative and in no apparent distress. Eyes: Following during examination. No redness or drainage. Respiratory: RR normal and nonlabored. Even breathing. No evidence of distress. Psychology: Patient is engaged during conversation. Normal affect and mood. Does not appear depressed or anxious. NVSI unchanged from previous visit. Dermatological: Nails 1-5 b/l are normal. Webspaces clean and dry 1-4 b/l. Skin appears well hydrated and supple. good color, texture, turgor. No open lesions present. No callosities present. Musculoskeletal/Orthopaedic: Patient has pain to palpation of left midfoot along navicular cun joint. Temperature of b/l midfoot 90 degrees Xrays reviewed. No acute fracture. Partially healed 4th metatarsal fracture. 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 She has arthritic changes of navicular cun joint. She can conitnue with inserts, over the counter pain relievers vs attempting injection. Due to the expected difficulty with injection, will plan on administering under xray guided injection Reviewed past xrays. Partially healed 4th metatarsal fracture. Continue with firm sole shoes and insert. Consent signed for xray guided injection. Comfort Muniz DPM * Angelic Montgomery LPN - 08/18/2022 3:27 PM EST AMB ROOMING INTAKE FLOWSHEET DATA Pain Pain Level: 9 Pain Location: Foot-Left Description: Stabbing, Sharp Duration Amount of Time: 2 Duration Units: Years Frequency: Intermittent Intervention/Comfort measure: Reposition, Relaxation, Medication Patient presents with: Left Foot - Established Patient, Follow Up, Pain, sign consent Sign consent. Angelic Montgomery LPN documented in this encounterGe[facility]02-24-2023 Miscellaneous Notes* Telephone Encounter - Angelic Montgomery LPN - 08/19/2022 10:44 AM EST Consent sent to [facility] on 08/18/2022. Angelic Montgomery LPN * Telephone Encounter - Dominique Augustine RN - 08/18/2022 2:44 PM EST Amanda, a PAT nurse from [facility], called. She received all of the paperwork for Keyla's upcoming procedure, except for the consent for surgery. Could someone from the office please fax that to her? Dominique Augustine RN documented in this encounterGeorgetown Behavioral Hospital02-23-2023 NoteHNO ID: [id number] Author: RT Fabiola(R) Service: Radiology Author Type: Technologist Type: Progress Notes Filed: 08/18/2022 4:10 PM Note Text: Radiology Service Progress Note PATIENT NAME: Keyla Engle DATE OF SERVICE: August 18, 2022 TIME: 3:55 PM PATIENT IDENTITY VERIFICATION COMPLETED USING TWO (2) IDENTIFIERS: Name and Date of confirmed by patient verbally. FALL SCREENING: Has the patient had 2 falls in the last year or 1 fall with injury or currently using an Ambulatory Assistive Device (Walker, Cane, Wheelchair, Crutches, etc.)? No PATIENT GENDER DATA: Female. status: : No status: NO. PATIENT RELEVANT IMPLANT DATA REVIEWED: Yes RADIOLOGY DEPARTMENT: General X-ray: Exam(s) Completed: Lower Extremity X-Ray(s): Foot, Left and Wt. Bearing PERIPHERAL IV DATA: Not applicable SIGNED BY: RT Fabiola(R) August 18, 2022 3:55 [facility]02-23-2023 NoteHNO ID: [id number] Author: Angelic Montgomery LPN Service: ? Author Type: LICENSED NURSE Type: Progress Notes Filed: 08/20/2022 10:33 PM Note Text: AMB ROOMING INTAKE FLOWSHEET DATA Pain Pain Level: 9 Pain Location: Foot-Left Description: Stabbing, Sharp Duration Amount of Time: 2 Duration Units: Years Frequency: Intermittent Intervention/Comfort measure: Reposition, Relaxation, Medication Patient presents with: Left Foot - Established Patient, Follow Up, Pain, sign consent Sign consent. [facility] History of Present illness Narrative* Nadiya Santacruz RT(R) - 08/18/2022 4:00 PM EST Radiology Service Progress Note PATIENT NAME: Keyla Engle DATE OF SERVICE: August 18, 2022 TIME: 3:55 PM PATIENT IDENTITY VERIFICATION COMPLETED USING TWO (2) IDENTIFIERS: Name and Date of confirmedby patient verbally. FALL SCREENING: Has the patient had 2 falls in the last year or 1 fall with injury or currently using an Ambulatory Assistive Device (Walker, Cane, Wheelchair, Crutches, etc.)? No PATIENT GENDER DATA: Female. status: : No status: NO. PATIENT RELEVANT IMPLANT DATA REVIEWED: Yes RADIOLOGY DEPARTMENT: General X-ray: Exam(s) Completed: Lower Extremity X- Ray(s): Foot, Left and Wt. Bearing PERIPHERAL IV DATA: Not applicable SIGNED BY: RT Fabiola(R) August 18, 2022 3:55 PM documented in this encounterGeorgetown Behavioral Hospital02-22-2023 Miscellaneous Notes* Telephone Encounter - Angelic Montgomery LPN - 08/17/2022 3:26 PM EST Patient is scheduled for Xray guided injection at [facility] on 08/26/2022. Patient has PAT appointment at 2 pm on 08/18/2022. Patient has appointment in office on 08/18/2022 to sign consent. Angelic Montgomery LPN documented in this encounterGeorgetown Behavioral Hospital02-20-2023 Miscellaneous Notes* Telephone Encounter - Monik Ponce - 08/15/2022 2:02 PM EST Pharmacy verified in [facility] Patient has been identified by name and date of : Yes Patient aware RX will be sent to pharmacy. No need to notify patient. Patient phones for refill(s): Requested Prescriptions Pending Prescriptions Disp Refills hyoscyamine sublingual (LEVSIN/SL) 0.125 mg 60 tablet 3 Sig: Dissolve 1 tablet under the tongue every 4 hours as needed. Date of last office visit : 03/22/2022 Date of next office visit : 09/19/2022 Last 2 Encounter Wt Readings: Date: Wt: 06/22/2022 115.8 kg (255 lb 6.4 oz) 05/27/2022 110.1 kg (242 lb 11.6 oz) Please advise. Monik Hsu Pss documented in this encounterGeorgetown [facility]al Hospital02-13-2023 NoteHNO ID: [id number] Author: Comfort Muniz Service: ? Author Type: Physician Type: Progress Notes Filed: 08/08/2022 11:20 AM Note Text: FOLLOW UP PODIATRIC OFFICE VISIT Chief Complaint: This 62 year old who presents for follow up:left foot pain Patient presents to clinic for follow-up left foot pain Patient is using boot and that has helped her medial ankle pain. She still has pain along the navicular cun joint and she is interested in discussing steroid injection PAIN EVALUATION 08/08/2022 1058 Pain Level: 8 Pain Location: Foot-Left Description: Sharp;Burning Duration Units: Years Frequency: Continuous Intervention/Comfort measure: Reposition;Distractions;Relaxation Hemoglobin A1C Date Value Ref Range Status 03/22/2022 6.0 (H) 4.3 - 5.6 % Final Comment: [place] [employer] guidelines indicate that patients with HgbA1c in the range 5.7-6.4% are at increased risk for development of diabetes, and intervention by lifestyle modification may be beneficial. HgbA1c greater or equal to 6.5% is considered diagnostic of diabetes. PCP: Mikayla Strange MD PAST MEDICAL HISTORY Diagnosis Date Anxiety disorder Arthritis Chronic back pain Dr. Burks-pain management Depressive disorder, not elsewhere classified Diabetes (HCC) Essential hypertension, benign Fibromyalgia Glaucoma IBS (irritable bowel syndrome) Migraine, unspecified, without mention of intractable migraine without mention of status migrainosus PONV (postoperative nausea and vomiting) Pure hypercholesterolemia Rheumatoid arthritis (HCC) Snoring Current Outpatient Medications Medication Sig citalopram (CELEXA) 40 mg tablet Take 1 tablet by mouth once daily. lisinopril (ZESTRIL, PRINIVIL) 10 mg tablet Take 1 tablet by mouth once daily. hyoscyamine sublingual (LEVSIN/SL) 0.125 mg Dissolve 1 tablet under the tongue every 4 hours as needed. buprenorphine 20 mcg/hour ptwk APPLY 1 PATCH TOPICALLY ONCE A WEEK FOR 4 WEEKS oxyCODONE-acetaminophen (PERCOCET) 5-325 mg tablet 1 tablet three times daily as needed. promethazine (PHENERGAN) 25 mg suppository 1 Suppository by RECTAL route every 6 hours as needed. atorvastatin (LIPITOR) 10 mg tablet Take 1 tablet by mouth once daily. metFORMIN ER (GLUCOPHAGE XR) 500 mg 24 hr tablet Take 1 tablet by mouth daily with breakfast. busPIRone HCl 30 mg tablet Take 1 tablet by mouth twice daily. SUMAtriptan (IMITREX) 50 mg tablet Take 1 tablet by mouth as needed. upadacitinib (RINVOQ ORAL) Take 15 mg by mouth. omeprazole (PRILOSEC) 40 mg capsule Take 40 mg by mouth once daily. amitriptyline (ELAVIL) 10 mg tablet Take 1 tablet by mouth daily at bedtime. gabapentin (NEURONTIN) 300 mg capsule Take 1 capsule by mouth four times daily. predniSONE (DELTASONE) 10 mg tablet Take 1 tablet by mouth as needed for Pain. promethazine (PHENERGAN) 25 mg tablet Take 1 tablet by mouth every 6 hours as needed. cyclobenzaprine (FLEXERIL) 10 mg tablet Take 10 mg by mouth three times daily as needed. Cetirizine 10 mg cap Take by mouth. CALCIUM POLYCARBOPHIL (FIBER LAXATIVE ORAL) Take by mouth. multivitamin tablet Take 1 tablet by mouth once daily. latanoprost (XALATAN) 0.005 % ophthalmic solution 1 Drop daily at bedtime. docusate sodium (COLACE) 100 mg capsule Take 100 mg by mouth twice daily. acetaminophen 300 mg-caffeine 40 mg-butalbital 50 mg (FIORICET) per capsule TAKE 1 CAPSULE BY MOUTH TWICE DAILY FOR 28 DAYS (Patient not taking: No sig reported) meloxicam (MOBIC) 7.5 mg tablet Take 7.5 mg by mouth once daily. (Patient not taking: No sig reported) Current Facility-Administered Medications Medication Dose Route Frequency perflutren lipid microspheres 1.3 mL in NaCl (PF) 0.9% 10 mL injection (DEFINITY) INTRAVENOUS DIRECTED PRN sodium chloride 0.9 % (flush) 10 mL (BD POSIFLUSH) 10 mL INTRAVENOUS DIRECTED PRN ALLERGIES Allergen Reactions Jessica [Fexofenadi* Intolerance Augmentin [Amoxicil* Intolerance Bentyl [Dicyclomine* GI Upset Biaxin [Clarithromy* Intolerance Ceclor [Cefaclor] Intolerance Celebrex [Celecoxib] Intolerance Colestipol Other: See Comments shaky/headaches/increased nausea Compazine [Prochlor* Intolerance Doxepin Intolerance Fentanyl Intolerance Humira [Adalimumab] Intolerance Levaquin [Levofloxa* Intolerance Plaquenil [Hydroxyc* Intolerance Seldane Intolerance Septra [Sulfamethox* Intolerance Sulfa (Sulfonamide * Intolerance Vibramycin [Doxycyc* Intolerance Vicodin [Hydrocodon* Intolerance PAST SURGICAL HISTORY Procedure Laterality Date APPENDECTOMY 12/18/2014 Dr. Blakely APPENDECTOMY HX ARTHRP KNE CONDYLEANDPLATU MEDIALANDLAT COMPARTMENTS 04/22/2014 right COLONOSCOPY 05/27/2022 repeat in 10 years COLONOSCOPY FLX DX W/COLLJ SPEC WHEN PFRMD 10/01/2012 suboptimal - poor prep EGD 1989' ESOPHAGOGASTRODUODENOSCOPY TRANSORAL DIAGNOSTIC 07/30/2014 EGD JOINT REPLACEMENT HX (more content not included)...[facility] 08-08-2022 NoteHNO ID: [id number] Author: Adeline Herrera RN Service: ? Author Type: Registered Nurse Type: Progress Notes Filed: 08/08/2022 11:20 AM Note Text: AMB ROOMING INTAKE FLOWSHEET DATA Pain Pain Level: 8 Pain Location: Foot-Left Description: Sharp, Burning Duration Units: Years Frequency: Continuous Intervention/Comfort measure: Reposition, Distractions, Relaxation Patient presents with: Left Foot - Established Patient, Follow Up, Pain Patient presents for follow up of left foot pain, states that she would like to get a shot for the pain today. Patient states that she has been wearing the boot and it does help.[facility]02-13-2023 History of Present illness Narrative* Comfort Muniz - 08/08/2022 11:07 AM EST FOLLOW UP PODIATRIC OFFICE VISIT Chief Complaint: This 62 year old who presents for follow up:left foot pain Patient presents to clinic for follow-up left foot pain Patient is using boot and that has helped her medial ankle pain. She still has pain along the navicular cun joint and she is interested in discussing steroid injection PAIN EVALUATION 08/08/2022 1058 Pain Level: 8 Pain Location: Foot-Left Description: Sharp;Burning Duration Units: Years Frequency: Continuous Intervention/Comfort measure: Reposition;Distractions;Relaxation Hemoglobin A1C Date Value Ref Range Status 03/22/2022 6.0 (H) 4.3 - 5.6 % Final Comment: [place] [employer] guidelines indicate that patients with HgbA1c in the range 5.7-6.4% are at increased risk for development of diabetes, and intervention by lifestyle modification may be beneficial. HgbA1c greater or equal to 6.5% is considered diagnostic of diabetes. PCP: Mikayla Strange MD PAST MEDICAL HISTORY Diagnosis Date Anxiety disorder Arthritis Chronic back pain Dr. Burks-pain management Depressive disorder, not elsewhere classified Diabetes (HCC) Essential hypertension, benign Fibromyalgia Glaucoma IBS (irritable bowel syndrome) Migraine, unspecified, without mention of intractable migraine without mention of status migrainosus PONV (postoperative nausea and vomiting) Pure hypercholesterolemia Rheumatoid arthritis (HCC) Snoring Current Outpatient Medications Medication Sig citalopram (CELEXA) 40 mg tablet Take 1 tablet by mouth once daily. lisinopril (ZESTRIL, PRINIVIL) 10 mg tablet Take 1 tablet by mouth once daily. hyoscyamine sublingual (LEVSIN/SL) 0.125 mg Dissolve 1 tablet under the tongue every 4 hours as needed. buprenorphine 20 mcg/hour ptwk APPLY 1 PATCH TOPICALLY ONCE A WEEK FOR 4 WEEKS oxyCODONE-acetaminophen (PERCOCET) 5-325 mg tablet 1 tablet three times daily as needed. promethazine (PHENERGAN) 25 mg suppository 1 Suppository by RECTAL route every 6 hours as needed. atorvastatin (LIPITOR) 10 mg tablet Take 1 tablet by mouth once daily. metFORMIN ER (GLUCOPHAGE XR) 500 mg 24 hr tablet Take 1 tablet by mouth daily with breakfast. busPIRone HCl 30 mg tablet Take 1 tablet by mouth twice daily. SUMAtriptan (IMITREX) 50 mg tablet Take 1 tablet by mouth as needed. upadacitinib (RINVOQ ORAL) Take 15 mg by mouth. omeprazole (PRILOSEC) 40 mg capsule Take 40 mg by mouth once daily. amitriptyline (ELAVIL) 10 mg tablet Take 1 tablet by mouth daily at bedtime. gabapentin (NEURONTIN) 300 mg capsule Take 1 capsule by mouth four times daily. predniSONE (DELTASONE) 10 mg tablet Take 1 tablet by mouth as needed for Pain. promethazine (PHENERGAN) 25 mg tablet Take 1 tablet by mouth every 6 hours as needed. cyclobenzaprine (FLEXERIL) 10 mg tablet Take 10 mg by mouth three times daily as needed. Cetirizine 10 mg cap Take by mouth. CALCIUM POLYCARBOPHIL (FIBER LAXATIVE ORAL) Take by mouth. multivitamin tablet Take 1 tablet by mouth once daily. latanoprost (XALATAN) 0.005 % ophthalmic solution 1 Drop daily at bedtime. docusate sodium (COLACE) 100 mg capsule Take 100 mg by mouth twice daily. acetaminophen 300 mg-caffeine 40 mg-butalbital 50 mg (FIORICET) per capsule TAKE 1 CAPSULE BY MOUTHTWICE DAILY FOR 28 DAYS (Patient not taking: No sig reported) meloxicam (MOBIC) 7.5 mg tablet Take 7.5 mg by mouth once daily. (Patient not taking: No sig reported) Current Facility-Administered Medications Medication Dose Route Frequency perflutren lipid microspheres 1.3 mL in NaCl (PF) 0.9% 10 mL injection (DEFINITY) INTRAVENOUS DIRECTED PRN sodium chloride 0.9 % (flush) 10 mL (BD POSIFLUSH) 10 mL INTRAVENOUS DIRECTED PRN ALLERGIES Allergen Reactions Jessica [Fexofenadi* Intolerance Augmentin [Amoxicil* Intolerance Bentyl [Dicyclomine* GI Upset Biaxin [Clarithromy* Intolerance Ceclor [Cefaclor] Intolerance Celebrex [Celecoxib] Intolerance Colestipol Other: See Comments shaky/headaches/increased nausea Compazine [Prochlor* Intolerance Doxepin Intolerance Fentanyl Intolerance Humira [Adalimumab] Intolerance Levaquin [Levofloxa* Intolerance Plaquenil [Hydroxyc* Intolerance Seldane Intolerance Septra [Sulfamethox* Intolerance Sulfa (Sulfonamide * Intolerance Vibramycin [Doxycyc* Intolerance Vicodin [Hydrocodon* Intolerance PAST SURGICAL HISTORY Procedure Laterality Date APPENDECTOMY 12/18/2014 Dr. Blakely APPENDECTOMY HX ARTHRP KNE CONDYLE&PLATU MEDIAL&LAT COMPARTMENTS 04/22/2014 right COLONOSCOPY 05/27/2022 repeat in 10 years COLONOSCOPY FLX DX W/COLLJ SPEC WHEN PFRMD 10/01/2012 suboptimal - poor prep EGD ESOPHAGOGASTRODUODENOSCOPY TRANSORAL DIAGNOSTIC 07/30/2014 EGD JOINT REPLACEMENT HX LAPAROSCOPY SURG CHOLECYSTECTOMY 12/31/1993 PAST SURGICAL HISTORY OF 1994 knee, right arthroscopy TONSILLECTOMY HX TUBAL LIGATION HX 08/11/1997 VAGINAL HYSTERECTOMY Physical Exam: OBJECTIVE: Constitutional: Pt is a well developed 62 year old female who is alert, oriented, cooperative and in no apparent distress. Eyes: Following during examination. No redness or drainage. Respiratory: RR normal and nonlabored. Even breathing. No evidence of distress. Psychology: Patient is engaged during conversation. Normal affect and mood. Does not appear depressed or anxious. NVSI unchanged from previous visit. Dermatological: Nails 1-5 b/l are normal. Webspaces clean and dry 1-4 b/l. Skin appears well hydrated and supple. good color, texture, turgor. No open lesions present. No callosities present. Musculoskeletal/Orthopaedic: Patient has pain to palpation of left navicular cun joint Flatfoot is noted b/l. Xrays show arthritis of left navicular cun joint ASSESSMENT: (M19.079) Arthritis of foot (primary encounter diagnosis) (M76.829) Posterior tibial tendon dysfunction (E11.49) Other diabetic neurological complication associated with type 2 diabetes mellitus (HCC) PLAN: Discussed left foot pain. Pain is improving. I will allow her to transition back to her diabetic shoe with insert. If pain returns, consider boto Discussed injection. I do feel an xray guided injection of navicular cun joint would be worth trying. Will make arrangements to do under sedation. She prefers [facility] so will make arrangements. Custom orthotics prescribed. * Adeline Herrera RN - 08/08/2022 10:58 AM EST AMB ROOMING INTAKE FLOWSHEET DATA Pain Pain Level: 8 Pain Location: Foot-Left Description: Sharp, Burning Duration Units: Years Frequency: Continuous Intervention/Comfort measure: Reposition, Distractions, Relaxation Patient presents with: Left Foot - Established Patient, Follow Up, Pain Patient presents for follow up of left foot pain, states that she would like to get a shot for the pain today. Patient states that she has been wearing the boot and it does help. [facility] NoteHNO ID: [id number] Author: Angelic Montgomery LPN Service: ? Author Type: LICENSED NURSE Type: Progress Notes Filed: 07/04/2022 3:22 PM Note Text: Per Dr. Muniz, Keyla was provided with [employer] aircast, size M, and instructed/educated in its application, wear, and care. All questions were answered, and patient was able to demonstrate competence with the necessary skills to utilize the above equipment. [facility] NoteHNO ID: [id number] Author: RT Burton(Miguelina) Service: Nuclear Medicine Author Type: Technologist Type: Progress Notes Filed: 07/04/2022 2:04 PM Note Text: Radiology Service Progress Note PATIENT NAME: Keyla Engle DATE OF SERVICE: July 04, 2022 TIME: 1:50 PM PATIENT IDENTITY VERIFICATION COMPLETED USING TWO (2) IDENTIFIERS: Name and Date of confirmed by patient verbally. FALL SCREENING: Has the patient had 2 falls in the last year or 1 fall with injury or currently using an Ambulatory Assistive Device (Walker, Cane, Wheelchair, Crutches, etc.)? No PATIENT GENDER DATA: Female. status: : No status: NO. PATIENT RELEVANT IMPLANT DATA REVIEWED: Not Applicable RADIOLOGY DEPARTMENT: General X-ray: Exam(s) Completed: Lower Extremity X-Ray(s): Foot, Left and Wt. Bearing PERIPHERAL IV DATA: Not applicable SIGNED BY: RT Burton(R) July 04, 2022 1:50 [facility]01-09-2023 History of Present illness Narrative* Angelic Montgomery LPN - 07/04/2022 3:[address] Muniz, Keyla was provided with [employer] aircast, size M, and instructed/educated in itsapplication, wear, and care. All questions were answered, and patient was able to demonstrate competence with the necessary skills to utilize the above equipment. Billed to Ronaldo Montgomery LPN * Comfort Cristy - 07/04/2022 1:09 PM EST Images from the original note were not included. Subjective: This 62 year old female presents to clinic for diabetic foot check. Patient complains of left foot pain. 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 Her pain is located to the inside of her left arch. Patient states thepain has been present since March 2021. When I saw her in january, we treated her with diabetic rupert es and insert. Patient states the pain subsided iniitally but now the pain is steadily getting worse. Patient is currently taking percocet (pain management prescribes). She also takes naproxen. Naproxen and percocet does help. Patient -B/T/N in feet at this time. Patient -pain in legs when walking. No other pedal complaints at this time. No change in medications or medical history since last visit. PAIN EVALUATION 07/04/2022 1304 Pain Level: 10 Pain Location: Foot-Left Description: Stabbing;Sharp Duration Amount of Time: 1 Duration Units: Years Frequency: Continuous Intervention/Comfort measure: Reposition;Relaxation;Medication naproxen Hemoglobin A1C (%) Date Value 03/22/2022 6.0 10/25/2021 6.3 09/23/2021 6.3 03/11/2021 6.5 05/22/2019 6.1 PCP: Mikayla Strange MD PAST MEDICAL HISTORY Diagnosis Date Anxiety disorder Arthritis Chronic back pain Dr. Burks-pain management Depressive disorder, not elsewhere classified Diabetes (HCC) Essential hypertension, benign Fibromyalgia Glaucoma IBS (irritable bowel syndrome) Migraine, unspecified, without mention of intractable migraine without mention of status migrainosus PONV (postoperative nausea and vomiting) Pure hypercholesterolemia Rheumatoid arthritis (HCC) Snoring Current Outpatient Medications Medication Sig citalopram (CELEXA) 40 mg tablet Take 1 tablet by mouth once daily. lisinopril (ZESTRIL, PRINIVIL) 10 mg tablet Take 1 tablet by mouth once daily. hyoscyamine sublingual (LEVSIN/SL) 0.125 mg Dissolve 1 tablet under the tongue every 4 hours as needed. buprenorphine 20 mcg/hour ptwk APPLY 1 PATCH TOPICALLY ONCE A WEEK FOR 4 WEEKS oxyCODONE-acetaminophen (PERCOCET) 5-325 mg tablet promethazine (PHENERGAN) 25 mg suppository 1 Suppository by RECTAL route every 6 hours as needed. atorvastatin (LIPITOR) 10 mg tablet Take 1 tablet by mouth once daily. metFORMIN ER (GLUCOPHAGE XR) 500 mg 24 hr tablet Take 1 tablet by mouth daily with breakfast. busPIRone HCl 30 mg tablet Take 1 tablet by mouth twice daily. SUMAtriptan (IMITREX) 50 mg tablet Take 1 tablet by mouth as needed. upadacitinib (RINVOQ ORAL) Take 15 mg by mouth. omeprazole (PRILOSEC) 40 mg capsule Take 40 mg by mouth once daily. amitriptyline (ELAVIL) 10 mg tablet Take 1 tablet by mouth daily at bedtime. gabapentin (NEURONTIN) 300 mg capsule Take 1 capsule by mouth four times daily. predniSONE (DELTASONE) 10 mg tablet Take 1 tablet by mouth as needed for Pain. promethazine (PHENERGAN) 25 mg tablet Take 1 tablet by mouth every 6 hours as needed. cyclobenzaprine (FLEXERIL) 10 mg tablet Take 10 mg by mouth three times daily as needed. Cetirizine 10 mg cap Take by mouth. CALCIUM POLYCARBOPHIL (FIBER LAXATIVE ORAL) Take by mouth. multivitamin tablet Take 1 tablet by mouth once daily. latanoprost (XALATAN) 0.005 % ophthalmic solution 1 Drop daily at bedtime. docusate sodium (COLACE) 100 mg capsule Take 100 mg by mouth twice daily. acetaminophen 300 mg-caffeine 40 mg-butalbital 50 mg (FIORICET) per capsule TAKE 1 CAPSULE BY MOUTHTWICE DAILY FOR 28 DAYS (Patient not taking: Reported on 07/04/2022) meloxicam (MOBIC) 7.5 mg tablet Take 7.5 mg by mouth once daily. (Patient not taking: Reported on 07/04/2022) Current Facility-Administered Medications Medication Dose Route Frequency perflutren lipid microspheres 1.3 mL in NaCl (PF) 0.9% 10 mL injection (DEFINITY) INTRAVENOUS DIRECTED PRN sodium chloride 0.9 % (flush) 10 mL (BD POSIFLUSH) 10 mL INTRAVENOUS DIRECTED PRN ALLERGIES Allergen Reactions Jessica [Fexofenadi* Intolerance Augmentin [Amoxicil* Intolerance Bentyl [Dicyclomine* GI Upset Biaxin [Clarithromy* Intolerance Ceclor [Cefaclor] Intolerance Celebrex [Celecoxib] Intolerance Colestipol Other: See Comments shaky/headaches/increased nausea Compazine [Prochlor* Intolerance Doxepin Intolerance Fentanyl Intolerance Humira [Adalimumab] Intolerance Levaquin [Levofloxa* Intolerance Plaquenil [Hydroxyc* Intolerance Seldane Intolerance Septra [Sulfamethox* Intolerance Sulfa (Sulfonamide * Intolerance Vibramycin [Doxycyc* Intolerance Vicodin [Hydrocodon* Intolerance PAST SURGICAL HISTORY Procedure Laterality Date APPENDECTOMY 12/18/2014 Dr. Blakely APPENDECTOMY HX ARTHRP KNE CONDYLE&PLATU MEDIAL&LAT COMPARTMENTS 04/22/2014 right COLONOSCOPY 05/27/2022 repeat in 10 years COLONOSCOPY FLX DX W/COLLJ SPEC WHEN PFRMD 10/01/2012 suboptimal - poor prep EGD ESOPHAGOGASTRODUODENOSCOPY TRANSORAL DIAGNOSTIC 07/30/2014 EGD JOINT REPLACEMENT HX LAPAROSCOPY SURG CHOLECYSTECTOMY 12/31/1993 PAST SURGICAL HISTORY OF 1994 knee, right arthroscopy TONSILLECTOMY HX TUBAL LIGATION HX 08/11/1997 VAGINAL HYSTERECTOMY FAMILY HISTORY Problem Relation Age of Onset Diabetes Mother Hypertension Mother Heart Attack Mother Diabetes Father Hypertension Father Heart Attack Father COPD Sister other (sjorgens) Sister affects vision other (Other) Sister lupus Bipolar disorder Daughter Diabetes Maternal Grandmother Social History Tobacco Use Smoking status: Never Smokeless tobacco: Never Vaping Use Vaping Use: Never used Substance Use Topics Alcohol use: No Drug use: No REVIEW OF SYSTEMS GENERAL: Negative for Malaise, significant weight loss, fever RESPIRATORY: Negative for cough, wheezing and shortness of breath CARDIOVASCULAR: Negative for chest pain, leg swelling and palpitations GI: Negative for abdominal discomfort, blood in stools or black stools and change in bowel habits : Negative for dysuria, frequency and incontinence MUSCULOSKELETAL: Negative for joint pain or swelling, back pain, and muscle pain. SKIN: Negative for lesions, rash, and itching. HEMATOLOGY/LYMPHOLOGY Negative for prolonged bleeding, bruising easily, and swollen nodes. ENDOCRINE: Negative for cold or heat intolerance, polyuria, polydipsia and goiter. NEURO: negative The remainder of the review of systems is noncontributory. Objective: Patient presents to clinic ambulating in diabetic shoes Constitutional: Pt is a well developed 62 year old female who is alert, oriented, cooperative and in no apparent distress. Eyes: Following during examination. No redness or drainage. Respiratory: RR normal and nonlabored. Even breathing. No evidence of distress. Psychology: Patient is engaged during conversation. Normal affect and mood. Does not appear depressed or anxious. Vasc: DP and PT pulses are palpable bilateral. CFT is less than 5 seconds bilateral. Skin temperature is warm to warm proximal to distal bilateral. There is no edema or varicosities noted. Hair growth present. Neuro: Protective sensation is intact to the foot and toes when tested with the 5.07 SWM bilateral.Vibratory sensation is decreased at the hallux bilateral. + Significant neurological defecits. Derm: Inspection and palpation performed. Nails 1-5 b/l are normal in length and thickness. Skin isof normal turgor and texture. Hyperkeratosis noted to right first metatarsal. NO ulcerations, scars, verruca or other lesions noted. Ortho: Ankle joint DF is decreased with the knee extended and decreased with knee flexed. No pain or crepitus noted. STJ, MTJ ROM are full and free of pain or crepitus. Muscle strength is 5/5 for dorsiflexors, plantarflexors, inverters, everters. Pain present to left navicular cun joint. Mild pain to posterior tibial tendon of left lower extremity. Patient unable to perform single or double heel rise, left Assessment: (M21.41, M21.42) Pes planus of both feet (primary encounter diagnosis) (E11.49) Other diabetic neurological complication associated with type 2 diabetes mellitus (HCC) (M19.079) Arthritis of foot (M76.829) Posterior tibial tendon dysfunction Plan: 1. Patient was seen and evaluated. 2. Patient was instructed on the continued importance of diabetic foot care along with proper diet and keeping their blood sugar under control to prevent complications. Instructions given both oral and written. 3. Discussed pain in left foot. She does have flatfoot so posterior tibial tendon dsyfucntion should not be excluded but most of her pain is located to navicular cun joint and last xrays do show arthritis. Given her pain, I am going to have her use a boot for the next 2 weeks. I discussed risk of dvt while in boot and if she develops pain, presnet to ED. 4. I will have her follow-up in 2 weeks. If she continues to have pain, if the pain is still in thejoint, could consider xray guided injection of jessica cun joint. If the pain is in the ankle along tendon, consider mri. 5. Xrays ordered 6. Callus reduced with zay Muniz DPM * Angelic Montgomery LPN - 07/04/2022 1:03 PM EST AMB ROOMING INTAKE FLOWSHEET DATA Risk Screening Do you have concerns about personal safety or safety in the home?: No Pain Pain Level: 10 Pain Location: Foot-Left Description: Stabbing, Sharp Duration Amount of Time: 1 Duration Units: Years Frequency: Continuous Intervention/Comfort measure: Reposition, Relaxation, Medication (naproxen) Patient presents with: Left Foot - Established Patient, Follow Up, Pain, Foot Deformity Right Foot - Established Patient, Follow Up, Diabetic Foot Care Angelic Montgomery LPN [facility] NoteHNO ID: [id number] Author: Comfort Muniz Service: ? Author Type: Physician Type: Progress Notes Filed: 07/04/2022 1:50 PM Note Text: Subjective: This 62 year old female presents to clinic for diabetic foot check. Patient complains of left foot pain. 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 Her pain is located to the inside of her left arch. Patient states the pain has been present since March 2021. When I saw her in january, we treated her with diabetic shoes and insert. Patient states the pain subsided iniitally but now the pain is steadily getting worse. Patient is currently taking percocet (pain management prescribes). She also takes naproxen. Naproxen and percocet does help. Patient -B/T/N in feet at this time. Patient -pain in legs when walking. No other pedal complaints at this time. No change in medications or medical history since last visit. PAIN EVALUATION 07/04/2022 1304 Pain Level: 10 Pain Location: Foot-Left Description: Stabbing;Sharp Duration Amount of Time: 1 Duration Units: Years Frequency: Continuous Intervention/Comfort measure: Reposition;Relaxation;Medication naproxen Hemoglobin A1C (%) Date Value 03/22/2022 6.0 10/25/2021 6.3 09/23/2021 6.3 03/11/2021 6.5 05/22/2019 6.1 PCP: Mikayla Strange MD PAST MEDICAL HISTORY Diagnosis Date Anxiety disorder Arthritis Chronic back pain Dr. Burks-pain management Depressive disorder, not elsewhere classified Diabetes (HCC) Essential hypertension, benign Fibromyalgia Glaucoma IBS (irritable bowel syndrome) Migraine, unspecified, without mention of intractable migraine without mention of status migrainosus PONV (postoperative nausea and vomiting) Pure hypercholesterolemia Rheumatoid arthritis (HCC) Snoring Current Outpatient Medications Medication Sig citalopram (CELEXA) 40 mg tablet Take 1 tablet by mouth once daily. lisinopril (ZESTRIL, PRINIVIL) 10 mg tablet Take 1 tablet by mouth once daily. hyoscyamine sublingual (LEVSIN/SL) 0.125 mg Dissolve 1 tablet under the tongue every 4 hours as needed. buprenorphine 20 mcg/hour ptwk APPLY 1 PATCH TOPICALLY ONCE A WEEK FOR 4 WEEKS oxyCODONE-acetaminophen (PERCOCET) 5-325 mg tablet promethazine (PHENERGAN) 25 mg suppository 1 Suppository by RECTAL route every 6 hours as needed. atorvastatin (LIPITOR) 10 mg tablet Take 1 tablet by mouth once daily. metFORMIN ER (GLUCOPHAGE XR) 500 mg 24 hr tablet Take 1 tablet by mouth daily with breakfast. busPIRone HCl 30 mg tablet Take 1 tablet by mouth twice daily. SUMAtriptan (IMITREX) 50 mg tablet Take 1 tablet by mouth as needed. upadacitinib (RINVOQ ORAL) Take 15 mg by mouth. omeprazole (PRILOSEC) 40 mg capsule Take 40 mg by mouth once daily. amitriptyline (ELAVIL) 10 mg tablet Take 1 tablet by mouth daily at bedtime. gabapentin (NEURONTIN) 300 mg capsule Take 1 capsule by mouth four times daily. predniSONE (DELTASONE) 10 mg tablet Take 1 tablet by mouth as needed for Pain. promethazine (PHENERGAN) 25 mg tablet Take 1 tablet by mouth every 6 hours as needed. cyclobenzaprine (FLEXERIL) 10 mg tablet Take 10 mg by mouth three times daily as needed. Cetirizine 10 mg cap Take by mouth. CALCIUM POLYCARBOPHIL (FIBER LAXATIVE ORAL) Take by mouth. multivitamin tablet Take 1 tablet by mouth once daily. latanoprost (XALATAN) 0.005 % ophthalmic solution 1 Drop daily at bedtime. docusate sodium (COLACE) 100 mg capsule Take 100 mg by mouth twice daily. acetaminophen 300 mg-caffeine 40 mg-butalbital 50 mg (FIORICET) per capsule TAKE 1 CAPSULE BY MOUTH TWICE DAILY FOR 28 DAYS (Patient not taking: Reported on 07/04/2022) meloxicam (MOBIC) 7.5 mg tablet Take 7.5 mg by mouth once daily. (Patient not taking: Reported on 07/04/2022) Current Facility-Administered Medications Medication Dose Route Frequency perflutren lipid microspheres 1.3 mL in NaCl (PF) 0.9% 10 mL injection (DEFINITY) INTRAVENOUS DIRECTED PRN sodium chloride 0.9 % (flush) 10 mL (BD POSIFLUSH) 10 mL INTRAVENOUS DIRECTED PRN ALLERGIES Allergen Reactions Jessica [Fexofenadi* Intolerance Augmentin [Amoxicil* Intolerance Bentyl [Dicyclomine* GI Upset Biaxin [Clarithromy* Intolerance Ceclor [Cefaclor] Intolerance Celebrex [Celecoxib] Intolerance Colestipol Other: See Comments shaky/headaches/increased nausea Compazine [Prochlor* Intolerance Doxepin Intolerance Fentanyl Intolerance Humira [Adalimumab] Intolerance Levaquin [Levofloxa* Intolerance Plaquenil [Hydroxyc* Intolerance Seldane Intolerance Septra [Sulfamethox* Intolerance Sulfa (Sulfonamide * Intolerance Vibramycin [Doxycyc* Intolerance Vicodin [Hydrocodon* Intolerance PAST SURGICAL HISTORY Procedure Laterality Date APPENDECTOMY 12/18/2014 Dr. Blakely APPENDECTOMY HX ARTHRP KNE CONDYLEANDPLATU MEDIALANDLAT COMPARTMENTS 04/22/2014 right COLONOSCO (more content not included)...[facility]01-09-2023 NoteHNO ID: [id number] Author: Angelic Montgomery LPN Service: ? Author Type: LICENSED NURSE Type: Progress Notes Filed: 07/04/2022 1:50 PM Note Text: AMB ROOMING INTAKE FLOWSHEET DATA Risk Screening Do you have concerns about personal safety or safety in the home?: No Pain Pain Level: 10 Pain Location: Foot-Left Description: Stabbing, Sharp Duration Amount of Time: 1 Duration Units: Years Frequency: Continuous Intervention/Comfort measure: Reposition, Relaxation, Medication (naproxen) Patient presents with: Left Foot - Established Patient, Follow Up, Pain, Foot Deformity Right Foot - Established Patient, Follow Up, Diabetic Foot [facility] Instructions* Patient Instructions* Comfort Muniz - 07/04/2022 1:[address] you in boot for left foot pain Apply heel lift in right foot to help counter balance the boot on left Ok to walk in boot Can remove boot at night when sleeping If you develop any pain in calf, present to ed Comfort Muniz DPM [facility] NoteHNO ID: [id number] Author: Gwen Blakely MD Service: ? Author Type: Physician Type: Progress Notes Filed: 06/25/2022 3:44 PM Note Text: Keyla Engle 1960 REFERRING PHYSICIAN: Gwen Blakely MD CHIEF COMPLAINT: Follow Up (colonoscopy) HPI: The patient is a 62 year old female is s/p colonoscopy done on 05/27/2022. She was found to have patchy active colitis by random colon biopsies. Not lymphocytic colitis. 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 She states that she has no symptoms of colitis, - denies diarrhea, denies blood in stools., denies abdominal pain. PAST MEDICAL HISTORY Diagnosis Date Anxiety disorder Arthritis Chronic back pain Dr. Burks-pain management Depressive disorder, not elsewhere classified Diabetes (HCC) Essential hypertension, benign Fibromyalgia Glaucoma IBS (irritable bowel syndrome) Migraine, unspecified, without mention of intractable migraine without mention of status migrainosus PONV (postoperative nausea and vomiting) Pure hypercholesterolemia Rheumatoid arthritis (HCC) Snoring PAST SURGICAL HISTORY Procedure Laterality Date APPENDECTOMY 12/18/2014 Dr. Blakely APPENDECTOMY HX ARTHRP KNE CONDYLEANDPLATU MEDIALANDLAT COMPARTMENTS 04/22/2014 right COLONOSCOPY FLX DX W/COLLJ SPEC WHEN PFRMD 10/01/2012 suboptimal - poor prep EGD ESOPHAGOGASTRODUODENOSCOPY TRANSORAL DIAGNOSTIC 07/30/2014 EGD JOINT REPLACEMENT HX LAPAROSCOPY SURG CHOLECYSTECTOMY 12/31/1993 PAST SURGICAL HISTORY OF 1994 knee, right arthroscopy TONSILLECTOMY HX TUBAL LIGATION HX 08/11/1997 VAGINAL HYSTERECTOMY Current Outpatient Medications Medication Sig citalopram (CELEXA) 40 mg tablet Take 1 tablet by mouth once daily. acetaminophen 300 mg-caffeine 40 mg-butalbital 50 mg (FIORICET) per capsule TAKE 1 CAPSULE BY MOUTH TWICE DAILY FOR 28 DAYS lisinopril (ZESTRIL, PRINIVIL) 10 mg tablet Take 1 tablet by mouth once daily. hyoscyamine sublingual (LEVSIN/SL) 0.125 mg Dissolve 1 tablet under the tongue every 4 hours as needed. buprenorphine 20 mcg/hour ptwk APPLY 1 PATCH TOPICALLY ONCE A WEEK FOR 4 WEEKS oxyCODONE-acetaminophen (PERCOCET) 5-325 mg tablet promethazine (PHENERGAN) 25 mg suppository 1 Suppository by RECTAL route every 6 hours as needed. atorvastatin (LIPITOR) 10 mg tablet Take 1 tablet by mouth once daily. metFORMIN ER (GLUCOPHAGE XR) 500 mg 24 hr tablet Take 1 tablet by mouth daily with breakfast. busPIRone HCl 30 mg tablet Take 1 tablet by mouth twice daily. SUMAtriptan (IMITREX) 50 mg tablet Take 1 tablet by mouth as needed. upadacitinib (RINVOQ ORAL) Take 15 mg by mouth. omeprazole (PRILOSEC) 40 mg capsule Take 40 mg by mouth once daily. amitriptyline (ELAVIL) 10 mg tablet Take 1 tablet by mouth daily at bedtime. gabapentin (NEURONTIN) 300 mg capsule Take 1 capsule by mouth four times daily. predniSONE (DELTASONE) 10 mg tablet Take 1 tablet by mouth as needed for Pain. promethazine (PHENERGAN) 25 mg tablet Take 1 tablet by mouth every 6 hours as needed. meloxicam (MOBIC) 7.5 mg tablet Take 7.5 mg by mouth once daily. cyclobenzaprine (FLEXERIL) 10 mg tablet Take 10 mg by mouth three times daily as needed. Cetirizine 10 mg cap Take by mouth. CALCIUM POLYCARBOPHIL (FIBER LAXATIVE ORAL) Take by mouth. multivitamin tablet Take 1 tablet by mouth once daily. latanoprost (XALATAN) 0.005 % ophthalmic solution 1 Drop daily at bedtime. docusate sodium (COLACE) 100 mg capsule Take 100 mg by mouth twice daily. ALLERGIES: Jessica [Fexofenadine Hcl], Augmentin [Amoxicillin-Pot Clavulanate], Bentyl [Dicyclomine Hcl], Biaxin [Clarithromycin], Ceclor [Cefaclor], Celebrex [Celecoxib], Colestipol, Compazine [Prochlorperazine Edisylate], Doxepin, Fentanyl, Humira [Adalimumab], Levaquin [Levofloxacin], Plaquenil [Hydroxychloroquine Sulfate], Seldane, Septra [Sulfamethoxazole-Trimethoprim], Sulfa (Sulfonamide Antibiotics), Vibramycin [Doxycycline Calcium], and Vicodin [Hydrocodone-Acetaminophen] REVIEW OF SYSTEMS: Denies fevers. PHYSICAL EXAMINATION: General: The patient is 62 year old female, well nourished, well hydrated in no acute distress. The patient is oriented to time, place, and person. VITALS: Blood pressure 118/82, pulse 91, temperature 36.3 ?C (97.3 ?F), height 167.6 cm (5' 6 ), weight 115.8 kg (255 lb 6.4 oz), SpO2 99 %. Body mass index is 41.22 kg/m?. Head: Normal cephalic, atraumatic Eyes: pupils are equally round, sclera are clear/anicteric Neck is supple with no tracheal deviation Respiratory: Normal respiratory excursion and pattern. Abdominal exam: benign Extremities: no clubbing, cyanosis or edema. Neuro: non focal Psych: normal mood Assessment IMPRESSION: status post colonoscopy PLAN: I have discussed findings with patient. I have recommended increased fiber in diet (25-30 grams per day) and increased free water (8-10 glasses per day). She admits to (more content not included)...[facility]12-29-2022 History of Present illness Narrative* Gwen Blakely MD - 06/23/2022 7:44 PM EST Keyla Engle 1960 REFERRING PHYSICIAN: Gwen Blakely MD CHIEF COMPLAINT: Follow Up (colonoscopy) HPI: The patient is a 62 year old female is s/p colonoscopy done on 05/27/2022. She was found to have patchy active colitis by random colon biopsies. Not lymphocytic colitis. 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 She states that she has no symptoms of colitis, - denies diarrhea, denies blood in stools., denies abdominal pain. PAST MEDICAL HISTORY Diagnosis Date Anxiety disorder Arthritis Chronic back pain Dr. Burks-pain management Depressive disorder, not elsewhere classified Diabetes (HCC) Essential hypertension, benign Fibromyalgia Glaucoma IBS (irritable bowel syndrome) Migraine, unspecified, without mention of intractable migraine without mention of status migrainosus PONV (postoperative nausea and vomiting) Pure hypercholesterolemia Rheumatoid arthritis (HCC) Snoring PAST SURGICAL HISTORY Procedure Laterality Date APPENDECTOMY 12/18/2014 Dr. Blakely APPENDECTOMY HX ARTHRP KNE CONDYLE&PLATU MEDIAL&LAT COMPARTMENTS 04/22/2014 right COLONOSCOPY FLX DX W/COLLJ SPEC WHEN PFRMD 10/01/2012 suboptimal - poor prep EGD ESOPHAGOGASTRODUODENOSCOPY TRANSORAL DIAGNOSTIC 07/30/2014 EGD JOINT REPLACEMENT HX LAPAROSCOPY SURG CHOLECYSTECTOMY 12/31/1993 PAST SURGICAL HISTORY OF 1994 knee, right arthroscopy TONSILLECTOMY HX TUBAL LIGATION HX 08/11/1997 VAGINAL HYSTERECTOMY Current Outpatient Medications Medication Sig citalopram (CELEXA) 40 mg tablet Take 1 tablet by mouth once daily. acetaminophen 300 mg-caffeine 40 mg-butalbital 50 mg (FIORICET) per capsule TAKE 1 CAPSULE BY MOUTHTWICE DAILY FOR 28 DAYS lisinopril (ZESTRIL, PRINIVIL) 10 mg tablet Take 1 tablet by mouth once daily. hyoscyamine sublingual (LEVSIN/SL) 0.125 mg Dissolve 1 tablet under the tongue every 4 hours as needed. buprenorphine 20 mcg/hour ptwk APPLY 1 PATCH TOPICALLY ONCE A WEEK FOR 4 WEEKS oxyCODONE-acetaminophen (PERCOCET) 5-325 mg tablet promethazine (PHENERGAN) 25 mg suppository 1 Suppository by RECTAL route every 6 hours as needed. atorvastatin (LIPITOR) 10 mg tablet Take 1 tablet by mouth once daily. metFORMIN ER (GLUCOPHAGE XR) 500 mg 24 hr tablet Take 1 tablet by mouth daily with breakfast. busPIRone HCl 30 mg tablet Take 1 tablet by mouth twice daily. SUMAtriptan (IMITREX) 50 mg tablet Take 1 tablet by mouth as needed. upadacitinib (RINVOQ ORAL) Take 15 mg by mouth. omeprazole (PRILOSEC) 40 mg capsule Take 40 mg by mouth once daily. amitriptyline (ELAVIL) 10 mg tablet Take 1 tablet by mouth daily at bedtime. gabapentin (NEURONTIN) 300 mg capsule Take 1 capsule by mouth four times daily. predniSONE (DELTASONE) 10 mg tablet Take 1 tablet by mouth as needed for Pain. promethazine (PHENERGAN) 25 mg tablet Take 1 tablet by mouth every 6 hours as needed. meloxicam (MOBIC) 7.5 mg tablet Take 7.5 mg by mouth once daily. cyclobenzaprine (FLEXERIL) 10 mg tablet Take 10 mg by mouth three times daily as needed. Cetirizine 10 mg cap Take by mouth. CALCIUM POLYCARBOPHIL (FIBER LAXATIVE ORAL) Take by mouth. multivitamin tablet Take 1 tablet by mouth once daily. latanoprost (XALATAN) 0.005 % ophthalmic solution 1 Drop daily at bedtime. docusate sodium (COLACE) 100 mg capsule Take 100 mg by mouth twice daily. ALLERGIES: Jessica [Fexofenadine Hcl], Augmentin [Amoxicillin-Pot Clavulanate], Bentyl [DicyclomineHcl], Biaxin [Clarithromycin], Ceclor [Cefaclor], Celebrex [Celecoxib], Colestipol, Compazine [Prochlorperazine Edisylate], Doxepin, Fentanyl, Humira [Adalimumab], Levaquin [Levofloxacin], Plaquenil [ Hydroxychloroquine Sulfate], Seldane, Septra [Sulfamethoxazole-Trimethoprim], Sulfa (Sulfonamide Antibiotics), Vibramycin [Doxycycline Calcium], and Vicodin [Hydrocodone-Acetaminophen] REVIEW OF SYSTEMS: Denies fevers. PHYSICAL EXAMINATION: General: The patient is 62 year old female, well nourished, well hydrated in no acute distress. Thepatient is oriented to time, place, and person. VITALS: Blood pressure 118/82, pulse 91, temperature 36.3 C (97.3 F), height 167.6 cm (5' 6 ), weight 115.8 kg (255 lb 6.4 oz), SpO2 99 %. Body mass index is 41.22 kg/m . Head: Normal cephalic, atraumatic Eyes: pupils are equally round, sclera are clear/anicteric Neck is supple with no tracheal deviation Respiratory: Normal respiratory excursion and pattern. Abdominal exam: benign Extremities: no clubbing, cyanosis or edema. Neuro: non focal Psych: normal mood Assessment IMPRESSION: status post colonoscopy PLAN: I have discussed findings with patient. I have recommended increased fiber in diet (25-30 grams per day) and increased free water (8-10 glasses per day). She admits to caffeine use and I have rec'd stopping this, if symptomatic. I have recommended screening colonoscopy in 10 years. Follow up in this clinic if any worsening signs/symptoms. Patient acknowledges above. Diagnoses: (R19.4) Change in bowel habits (primary encounter diagnosis) I have confirmed and edited as necessary, the PFSH and ROS obtained by others. I spent a total of 21 minutes on the date of the service which included preparing to see the patient with review of any pertinent laboratory studies/radiological imaging/medical records , [id number] patient care, obtaining oral medical history from the patient in this encounter, counseling and educating the patient/family/caregiver, and ordering and/or scheduling of medications/tests/procedures, and completing appropriate medical documentation. Gwen Blakely MD [facility]12[facility] Nurse Note* Mela Potts RN - 05/27/2022 9:18 AM EST Patient arrived laying on left side. Patient denies pain at this time. Patient's abdomen appears gonsalo nondistended and soft to palpation. Patient encouraged to pass gas. [facility]12-[facility] History and physical note * Gwen Blakely MD - 05/27/2022 8:15 AM EST UPDATED PROCEDURAL SEDATION HISTORY AND PHYSICAL EXAMINATION SERVICE DATE: 05/27/2022 SERVICE TIME: 8:31 PHYSICAL EXAM MUST BE COMPLETED ON ADMISSION PROCEDURE: colonoscopy, possible biopsies Procedure Indications: change in bowel habits The History and Physical (completed in the past 30 days) has been reviewed and the patient has beenexamined. The contents accurately reflect the patient's condition with the following additions or revisions since the H&P was completed. ASA Class: ASA Class:: Patient with severe systemic disease Examination indicates no changes. AIRWAY: Airway Visualization of Uvula: Yes Mouth opening greater than 2 fingerbreadths: Yes Neck Full Range of Motion: Yes LUNGS: Lungs clear to auscultation CARDIAC: Regular rhythm,Regular rate Provisional Diagnosis/Treatment Plan: colonoscopy, possible biopsies, patient did not want upper endoscopy SEDATION GOAL: Moderate This H&P can be found in the Electronic Medical Record . SIGNATURE: Gwen Blakely MD PATIENT NAME: Keyla Engle DATE: May 27, 2022 TIME: 8:37 AM Source Note - Gwen Blakely MD - 05/27/2022 8:15 AM EST HISTORY AND PHYSICAL Keyla Engle 1960 REFERRING PHYSICIAN: Mikayla Strange MD CHIEF COMPLAINT: Consult (Colonoscopy consult, last colon 2012) HPI: The patient is a 62 year old female referred for endoscopy. Keyla notes intermittent nauseawith emesis and diarrhea for several days. This occurs episodically usually every 2-3 months for the past 10 years. She states that she would be sick to my stomach and would not be able to eat because of her symptoms. She notes cramping generalized abdominal pain. She also notes acid indigestion and heartburn. She had tried medical marijuana, but stopped as thisworsened her symptoms. She had undergone EGD with MAC with Dr. Sanchez in 2014 with normal findings(no evidence of H pylori or eosinophilic esophagitis). She had a colonoscopy in 2012 with IV conscious sedation with 10 mg versed IV for which the colon cleansing preparation was suboptimal. She states that she has chronic constipation, sometimes not having a bowel movement for up to a fewdays, but since she has been on hyoscyamine, she states that she usually has a bowel movement everyday. She notes no colon cancer in her immediate family. The patient denies blood in stools. PAST MEDICAL HISTORY Diagnosis Date Anxiety disorder Chronic back pain Dr. Burks-pain management Depressive disorder, not elsewhere classified Essential hypertension, benign Fibromyalgia Glaucoma IBS (irritable bowel syndrome) Migraine, unspecified, without mention of intractable migraine without mention of status migrainosus Pure hypercholesterolemia Rheumatoid arthritis (HCC) Snoring PAST SURGICAL HISTORY Procedure Laterality Date APPENDECTOMY 12/18/2014 Dr. Blakely ARTHRP KNE CONDYLE&PLATU MEDIAL&LAT COMPARTMENTS 04/22/2014 right COLONOSCOPY FLX DX W/COLLJ SPEC WHEN PFRMD 10/01/12 suboptimal - poor prep EGD ESOPHAGOGASTRODUODENOSCOPY TRANSORAL DIAGNOSTIC 07/30/14 EGD LAPAROSCOPY SURG CHOLECYSTECTOMY 12/31/1993 PAST SURGICAL HISTORY OF 95 knee, right arthroscopy TUBAL LIGATION HX 08/11/97 Current Outpatient Medications Medication Sig acetaminophen 300 mg-caffeine 40 mg-butalbital 50 mg (FIORICET) per capsule TAKE 1 CAPSULE BY MOUTHTWICE DAILY FOR 28 DAYS lisinopril (ZESTRIL, PRINIVIL) 10 mg tablet Take 1 tablet by mouth once daily. hyoscyamine sublingual (LEVSIN/SL) 0.125 mg Dissolve 1 tablet under the tongue every 4 hours as needed. buprenorphine 20 mcg/hour ptwk APPLY 1 PATCH TOPICALLY ONCE A WEEK FOR 4 WEEKS promethazine (PHENERGAN) 25 mg suppository 1 Suppository by RECTAL route every 6 hours as needed. atorvastatin (LIPITOR) 10 mg tablet Take 1 tablet by mouth once daily. metFORMIN ER (GLUCOPHAGE XR) 500 mg 24 hr tablet Take 1 tablet by mouth daily with breakfast. busPIRone HCl 30 mg tablet Take 1 tablet by mouth twice daily. SUMAtriptan (IMITREX) 50 mg tablet Take 1 tablet by mouth as needed. citalopram (CELEXA) 40 mg tablet Take 1 tablet by mouth once daily. upadacitinib (RINVOQ ORAL) Take 15 mg by mouth. omeprazole (PRILOSEC) 40 mg capsule Take 40 mg by mouth once daily. amitriptyline (ELAVIL) 10 mg tablet Take 1 tablet by mouth daily at bedtime. gabapentin (NEURONTIN) 300 mg capsule Take 1 capsule by mouth four times daily. predniSONE (DELTASONE) 10 mg tablet Take 1 tablet by mouth as needed for Pain. promethazine (PHENERGAN) 25 mg tablet Take 1 tablet by mouth every 6 hours as needed. meloxicam (MOBIC) 7.5 mg tablet Take 7.5 mg by mouth once daily. cyclobenzaprine (FLEXERIL) 10 mg tablet Take 10 mg by mouth three times daily as needed. Cetirizine 10 mg cap Take by mouth. CALCIUM POLYCARBOPHIL (FIBER LAXATIVE ORAL) Take by mouth. multivitamin tablet Take 1 tablet by mouth once daily. latanoprost (XALATAN) 0.005 % ophthalmic solution 1 Drop daily at bedtime. docusate sodium (COLACE) 100 mg capsule Take 100 mg by mouth twice daily. peg 3350-Electrolytes (GOLYTELY) 236-22.74-6.74 -5.86 gram suspension Take 4,000 mL by mouth one time only for 1 dose. Refer to printed prep instructions from your provider. oxyCODONE-acetaminophen (PERCOCET) 5-325 mg tablet TAKE 1 TABLET BY MOUTH TWICE DAILY FOR 17 DAYS (Patient not taking: Reported on 04/11/2022) ALLERGIES: Jessica [Fexofenadine Hcl], Augmentin [Amoxicillin-Pot Clavulanate], Bentyl [DicyclomineHcl], Biaxin [Clarithromycin], Ceclor [Cefaclor], Celebrex [Celecoxib], Colestipol, Compazine [Prochlorperazine Edisylate], Doxepin, Fentanyl, Humira [Adalimumab], Levaquin [Levofloxacin], Plaquenil [ Hydroxychloroquine Sulfate], Seldane, Septra [Sulfamethoxazole-Trimethoprim], Sulfa (Sulfonamide Antibiotics), Vibramycin [Doxycycline Calcium], and Vicodin [Hydrocodone-Acetaminophen] PERSONAL HISTORY: Social History Tobacco Use Smoking status: Never Smokeless tobacco: Never Vaping Use Vaping Use: Never used Substance Use Topics Alcohol use: No Drug use: No FAMILY HISTORY Problem Relation Age of Onset Diabetes Mother Hypertension Mother Heart Attack Mother Diabetes Father Hypertension Father Heart Attack Father COPD Sister other (sjorgens) Sister affects vision other (Other) Sister lupus Bipolar disorder Daughter Diabetes Maternal Grandmother The review of systems data was entered by the nurse and reviewed by ia Nursing Notes: Dominique Augustine RN 04/11/2022 3:18 PM Signed REVIEW OF SYSTEMS: General: The patient denies fatigue, denies weight loss, NOTES weight gain, denies feeling hot, anddenies feelings of cold. Eyes: The patient NOTES glaucoma, denies eye injury/surgery, wears glasses or contacts. Ear/Nose/Throat: The patient NOTES allergies, denies hayfever, denies ear infections, and denies bloody noses. Cardiovascular: The patient denies chest pain, denies heart disease, NOTES high blood pressure,denies cardiac stent, denies prior heart attack, denies irregular heart beat, denies high cholesterol, denies poor circulation, denies heart failure, other cardiac issues, NOTES claudication, denies cold feet, denies peripheral arterial stent. Respiratory: The patient denies tuberculosis, denies pneumonia, denies frequent cough, denies pulmonary embolism, denies shortness of breath, and denies coughing up blood. Gastrointestinal: The patient denies difficulty swallowing, denies acid reflux, denies ulcers, denies vomiting, denies jaundice/hepatitis, denies gallbladder problems, denies black or tarry stools, denies hemorrhoids, denies bleeding from rectum, denies diverticulitis, NOTES constipation, denies diarrhea, denies loss of stool control, and denies hernias. Kidney/Bladder: The patient denies kidney stones, denies urine infections, and denies bloody urine. Skin: The patient denies a history of skin cancer, denies bleeding/changing moles, and denies a history of skin rash. Neurologic: The patient denies a history of epilepsy/convulsions, NOTES headaches, denies head/spinal injuries, and denies stroke/TIA. Psychiatric: The patient denies psychiatric medications, NOTES depression, and denies voices, denies substance abuse. Endocrine: The patient denies thyroid disorders, NOTES diabetes, and denies hormonal problems. Hematologic: The patient denies a history of bruising, denies bleeding, and denies anemia, denies blood clots. Infections: The patient denies a history of measles and mumps, NOTES rheumatic fever, and denies sexually transmitted diseases. Musculoskeletal: The patient denies back pain/injury, NOTES back problems, NOTES sciatica, NOTES knee/foot trouble, NOTES arthritis, or denies gout. When was patient's last Mammogram screening? 04/01/2021 Last Colonoscopy: 2012 Dominique Augustine RN PHYSICAL EXAMINATION: General: The patient is 62 year old female, well nourished, well hydrated in no acute distress. Thepatient is oriented to time, place, and person. VITALS: Blood pressure 140/72, pulse 100, temperature 36.7 C (98 F), height 167.6 cm (5' 6 ), weight 112.7 kg (248 lb 6.4 oz), SpO2 98 %. Body mass index is 40.09 kg/m . Head: Normal cephalic, atraumatic Eyes: pupils are equally round, sclera are clear/anicteric, wearing glasses Neck is supple with no tracheal deviation Respiratory: Normal respiratory excursion and pattern. Abdominal exam: benign Extremities: no clubbing, cyanosis or edema. Neuro: non focal Psych: normal mood IMPRESSION: nausea/emesis, change in bowel habits PLAN: I have discussed the above with the patient. I have offered colonoscopy and EGD , possible biopsies I have explained the procedure to the patient. I have counseled the patient as to the risks of the procedure, including but not limited to: infection, bleeding, injury to any intrabdominal organs such as liver/spleen, perforation of the GI tract,inability to complete the procedure, complications of anesthesia, etc. - the patient understands. The patient wishes to proceed. I have answered all questions to the patient s satisfaction and the patient has no further questions. Diagnoses: (R19.4) Change in bowel habits (R11.0) Nausea * Gwen Blakely MD - 05/27/2022 8:15 AM EST HISTORY AND PHYSICAL Keyla Engle 1960 REFERRING PHYSICIAN: Mikayla Strange MD CHIEF COMPLAINT: Consult (Colonoscopy consult, last colon 2012) HPI: The patient is a 62 year old female referred for endoscopy. Keyla notes intermittent nauseawith emesis and diarrhea for several days. This occurs episodically usually every 2-3 months for the past 10 years. She states that she would be sick to my stomach and would not be able to eat because of her symptoms. She notes cramping generalized abdominal pain. She also notes acid indigestion and heartburn. She had tried medical marijuana, but stopped as thisworsened her symptoms. She had undergone EGD with MAC with Dr. Sanchez in 2014 with normal findings(no evidence of H pylori or eosinophilic esophagitis). She had a colonoscopy in 2012 with IV conscious sedation with 10 mg versed IV for which the colon cleansing preparation was suboptimal. She states that she has chronic constipation, sometimes not having a bowel movement for up to a fewdays, but since she has been on hyoscyamine, she states that she usually has a bowel movement everyday. She notes no colon cancer in her immediate family. The patient denies blood in stools. PAST MEDICAL HISTORY Diagnosis Date Anxiety disorder Chronic back pain Dr. Burks-pain management Depressive disorder, not elsewhere classified Essential hypertension, benign Fibromyalgia Glaucoma IBS (irritable bowel syndrome) Migraine, unspecified, without mention of intractable migraine without mention of status migrainosus Pure hypercholesterolemia Rheumatoid arthritis (HCC) Snoring PAST SURGICAL HISTORY Procedure Laterality Date APPENDECTOMY 12/18/2014 Dr. Blakely ARTHRP KNE CONDYLE&PLATU MEDIAL&LAT COMPARTMENTS 04/22/2014 right COLONOSCOPY FLX DX W/COLLJ SPEC WHEN PFRMD 10/01/12 suboptimal - poor prep EGD ESOPHAGOGASTRODUODENOSCOPY TRANSORAL DIAGNOSTIC 07/30/14 EGD LAPAROSCOPY SURG CHOLECYSTECTOMY 12/31/1993 PAST SURGICAL HISTORY OF 95 knee, right arthroscopy TUBAL LIGATION HX 08/11/97 Current Outpatient Medications Medication Sig acetaminophen 300 mg-caffeine 40 mg-butalbital 50 mg (FIORICET) per capsule TAKE 1 CAPSULE BY MOUTHTWICE DAILY FOR 28 DAYS lisinopril (ZESTRIL, PRINIVIL) 10 mg tablet Take 1 tablet by mouth once daily. hyoscyamine sublingual (LEVSIN/SL) 0.125 mg Dissolve 1 tablet under the tongue every 4 hours as needed. buprenorphine 20 mcg/hour ptwk APPLY 1 PATCH TOPICALLY ONCE A WEEK FOR 4 WEEKS promethazine (PHENERGAN) 25 mg suppository 1 Suppository by RECTAL route every 6 hours as needed. atorvastatin (LIPITOR) 10 mg tablet Take 1 tablet by mouth once daily. metFORMIN ER (GLUCOPHAGE XR) 500 mg 24 hr tablet Take 1 tablet by mouth daily with breakfast. busPIRone HCl 30 mg tablet Take 1 tablet by mouth twice daily. SUMAtriptan (IMITREX) 50 mg tablet Take 1 tablet by mouth as needed. citalopram (CELEXA) 40 mg tablet Take 1 tablet by mouth once daily. upadacitinib (RINVOQ ORAL) Take 15 mg by mouth. omeprazole (PRILOSEC) 40 mg capsule Take 40 mg by mouth once daily. amitriptyline (ELAVIL) 10 mg tablet Take 1 tablet by mouth daily at bedtime. gabapentin (NEURONTIN) 300 mg capsule Take 1 capsule by mouth four times daily. predniSONE (DELTASONE) 10 mg tablet Take 1 tablet by mouth as needed for Pain. promethazine (PHENERGAN) 25 mg tablet Take 1 tablet by mouth every 6 hours as needed. meloxicam (MOBIC) 7.5 mg tablet Take 7.5 mg by mouth once daily. cyclobenzaprine (FLEXERIL) 10 mg tablet Take 10 mg by mouth three times daily as needed. Cetirizine 10 mg cap Take by mouth. CALCIUM POLYCARBOPHIL (FIBER LAXATIVE ORAL) Take by mouth. multivitamin tablet Take 1 tablet by mouth once daily. latanoprost (XALATAN) 0.005 % ophthalmic solution 1 Drop daily at bedtime. docusate sodium (COLACE) 100 mg capsule Take 100 mg by mouth twice daily. peg 3350-Electrolytes (GOLYTELY) 236-22.74-6.74 -5.86 gram suspension Take 4,000 mL by mouth one time only for 1 dose. Refer to printed prep instructions from your provider. oxyCODONE-acetaminophen (PERCOCET) 5-325 mg tablet TAKE 1 TABLET BY MOUTH TWICE DAILY FOR 17 DAYS (Patient not taking: Reported on 04/11/2022) ALLERGIES: Jessica [Fexofenadine Hcl], Augmentin [Amoxicillin-Pot Clavulanate], Bentyl [DicyclomineHcl], Biaxin [Clarithromycin], Ceclor [Cefaclor], Celebrex [Celecoxib], Colestipol, Compazine [Prochlorperazine Edisylate], Doxepin, Fentanyl, Humira [Adalimumab], Levaquin [Levofloxacin], Plaquenil [ Hydroxychloroquine Sulfate], Seldane, Septra [Sulfamethoxazole-Trimethoprim], Sulfa (Sulfonamide Antibiotics), Vibramycin [Doxycycline Calcium], and Vicodin [Hydrocodone-Acetaminophen] PERSONAL HISTORY: Social History Tobacco Use Smoking status: Never Smokeless tobacco: Never Vaping Use Vaping Use: Never used Substance Use Topics Alcohol use: No Drug use: No FAMILY HISTORY Problem Relation Age of Onset Diabetes Mother Hypertension Mother Heart Attack Mother Diabetes Father Hypertension Father Heart Attack Father COPD Sister other (sjorgens) Sister affects vision other (Other) Sister lupus Bipolar disorder Daughter Diabetes Maternal Grandmother The review of systems data was entered by the nurse and reviewed by ia Nursing Notes: Dominique Augustine RN 04/11/2022 3:18 PM Signed REVIEW OF SYSTEMS: General: The patient denies fatigue, denies weight loss, NOTES weight gain, denies feeling hot, anddenies feelings of cold. Eyes: The patient NOTES glaucoma, denies eye injury/surgery, wears glasses or contacts. Ear/Nose/Throat: The patient NOTES allergies, denies hayfever, denies ear infections, and denies bloody noses. Cardiovascular: The patient denies chest pain, denies heart disease, NOTES high blood pressure,denies cardiac stent, denies prior heart attack, denies irregular heart beat, denies high cholesterol, denies poor circulation, denies heart failure, other cardiac issues, NOTES claudication, denies cold feet, denies peripheral arterial stent. Respiratory: The patient denies tuberculosis, denies pneumonia, denies frequent cough, denies pulmonary embolism, denies shortness of breath, and denies coughing up blood. Gastrointestinal: The patient denies difficulty swallowing, denies acid reflux, denies ulcers, denies vomiting, denies jaundice/hepatitis, denies gallbladder problems, denies black or tarry stools, denies hemorrhoids, denies bleeding from rectum, denies diverticulitis, NOTES constipation, denies diarrhea, denies loss of stool control, and denies hernias. Kidney/Bladder: The patient denies kidney stones, denies urine infections, and denies bloody urine. Skin: The patient denies a history of skin cancer, denies bleeding/changing moles, and denies a history of skin rash. Neurologic: The patient denies a history of epilepsy/convulsions, NOTES headaches, denies head/spinal injuries, and denies stroke/TIA. Psychiatric: The patient denies psychiatric medications, NOTES depression, and denies voices, denies substance abuse. Endocrine: The patient denies thyroid disorders, NOTES diabetes, and denies hormonal problems. Hematologic: The patient denies a history of bruising, denies bleeding, and denies anemia, denies blood clots. Infections: The patient denies a history of measles and mumps, NOTES rheumatic fever, and denies sexually transmitted diseases. Musculoskeletal: The patient denies back pain/injury, NOTES back problems, NOTES sciatica, NOTES knee/foot trouble, NOTES arthritis, or denies gout. When was patient's last Mammogram screening? 04/01/2021 Last Colonoscopy: 2012 Dominique Augustine RN PHYSICAL EXAMINATION: General: The patient is 62 year old female, well nourished, well hydrated in no acute distress. Thepatient is oriented to time, place, and person. VITALS: Blood pressure 140/72, pulse 100, temperature 36.7 C (98 F), height 167.6 cm (5' 6 ), weight 112.7 kg (248 lb 6.4 oz), SpO2 98 %. Body mass index is 40.09 kg/m . Head: Normal cephalic, atraumatic Eyes: pupils are equally round, sclera are clear/anicteric, wearing glasses Neck is supple with no tracheal deviation Respiratory: Normal respiratory excursion and pattern. Abdominal exam: benign Extremities: no clubbing, cyanosis or edema. Neuro: non focal Psych: normal mood IMPRESSION: nausea/emesis, change in bowel habits PLAN: I have discussed the above with the patient. I have offered colonoscopy and EGD , possible biopsies I have explained the procedure to the patient. I have counseled the patient as to the risks of the procedure, including but not limited to: infection, bleeding, injury to any intrabdominal organs such as liver/spleen, perforation of the GI tract,inability to complete the procedure, complications of anesthesia, etc. - the patient understands. The patient wishes to proceed. I have answered all questions to the patient s satisfaction and the patient has no further questions. Diagnoses: (R19.4) Change in bowel habits (R11.0) Nausea [facility] Miscellaneous Notes* Telephone Encounter - Yordy Martinez LPN - 05/20/2022 3:36 PM EST Patient phones requesting refills as follows: Requested Prescriptions Pending Prescriptions Disp Refills citalopram (CELEXA) 40 mg tablet 90 tablet 0 Sig: Take 1 tablet by mouth once daily. Please review and advise. Yordy Martinez LPN [facility]10-[facility]22 Miscellaneous Notes* Telephone Encounter - Deborah Alberts - 04/20/2022 3:53 PM EDT Patient given results and verbalized understanding of instructions given. Deborah Alberts * Telephone Encounter - Deborah Alberts - 04/20/2022 3:52 PM EDT ----- Message from Mariah oJnes APRN.EVE sent at 04/20/2022 3:02 PM EDT ----- Urine culture did not show any evidence of infection. She may continue to take antibiotic if it hasbeen helpful. If not improving, recommend follow up with PCP. Mariah Jones CNP documented [facility]10-[facility]-2022 Miscellaneous Notes* Letter - Mammography Coordinator - 04/15/2022 9:02 AM EDT April 15, 2022 PID: [id number] Keyla Engle [address] [place] [address] Dear Ms. Engle, We are pleased to inform you that the results of your recent breast imaging exam on 04/14/2022 are normal. Early detection of cancer is very important. We also understand recommendations regarding breast cancer screening are controversial. Please discuss with your primary care provider which strategy is best for you and whether a mammogram is right for you. Your imaging studies and report will be kept on file at [facility] as part of your permanent medical record and are available for your continuing care. Thank you for allowing us to help in meeting your health care needs. Sincerely, Dr. Gonzalez Interpreting Radiologist [facility] (Normal over 40) documented in this encounterGe[facility]10-20-2022 Miscellaneous Notes* Telephone Encounter - Adeline Hensley RN - 04/14/2022 4:54 PM EDT Pt called and is notified of providers results and instructions. Pt voices understanding. Adeline Hensley RN * Telephone Encounter - Mikayla Strange MD - 04/14/2022 4:36 PM EDT Kidney function is better. White count total is better. One form of white count is minimally up. Doubt is significant, but.. Recheck in one month to be on safe side. Will ask pathologist to look at the slide if still up to make sure is ok. documented [facility]Ge[facility]10[facility]22 History of Present illness Narrative* Linda Hidalgo, RT(R) - 04/14/2022 2:10 PM EDT Radiology Service Progress Note PATIENT NAME: Keyla Engle DATE OF SERVICE: April 14, 2022 TIME: 1:53 PM PATIENT IDENTITY VERIFICATION COMPLETED USING TWO (2) IDENTIFIERS: Name and Date of confirmedby patient verbally. FALL SCREENING: Has the patient had 2 falls in the last year or 1 fall with injury or currently using an Ambulatory Assistive Device (Walker, Cane, Wheelchair, Crutches, etc.)? No PATIENT GENDER DATA: Female. status: : No status: NO. PATIENT RELEVANT IMPLANT DATA REVIEWED: Not Applicable RADIOLOGY DEPARTMENT: Mammography PERIPHERAL IV DATA: Not applicable SIGNED BY: RT Camila(R) April 14, 2022 1:53 PM documented in [facility]Ge[facility]10-17-2022 History of Present illness Narrative* Gwen Blakely MD - 04/11/2022 7:26 PM EDT HISTORY AND PHYSICAL Keyla Venegasrachel 1960 REFERRING PHYSICIAN: Mikayla Strange MD CHIEF COMPLAINT: Consult (Colonoscopy consult, last colon 2012) HPI: The patient is a 62 year old female referred for endoscopy. Keyla notes intermittent nauseawith emesis and diarrhea for several days. This occurs episodically usually every 2-3 months for the past 10 years. She states that she would be sick to my stomach and would not be able to eat because of her symptoms. She notes cramping generalized abdominal pain. She also notes acid indigestion and heartburn. She had tried medical marijuana, but stopped as thisworsened her symptoms. She had undergone EGD with MAC with Dr. Sanchez in 2014 with normal findings(no evidence of H pylori or eosinophilic esophagitis). She had a colonoscopy in 2012 with IV conscious sedation with 10 mg versed IV for which the colon cleansing preparation was suboptimal. She states that she has chronic constipation, sometimes not having a bowel movement for up to a fewdays, but since she has been on hyoscyamine, she states that she usually has a bowel movement everyday. She notes no colon cancer in her immediate family. The patient denies blood in stools. PAST MEDICAL HISTORY Diagnosis Date Anxiety disorder Chronic back pain Dr. Burks-pain management Depressive disorder, not elsewhere classified Essential hypertension, benign Fibromyalgia Glaucoma IBS (irritable bowel syndrome) Migraine, unspecified, without mention of intractable migraine without mention of status migrainosus Pure hypercholesterolemia Rheumatoid arthritis (HCC) Snoring PAST SURGICAL HISTORY Procedure Laterality Date APPENDECTOMY 12/18/2014 Dr. Blakely ARTHRP KNE CONDYLE&PLATU MEDIAL&LAT COMPARTMENTS 04/22/2014 right COLONOSCOPY FLX DX W/COLLJ SPEC WHEN PFRMD 10/01/12 suboptimal - poor prep EGD ESOPHAGOGASTRODUODENOSCOPY TRANSORAL DIAGNOSTIC 07/30/14 EGD LAPAROSCOPY SURG CHOLECYSTECTOMY 12/31/1993 PAST SURGICAL HISTORY OF 95 knee, right arthroscopy TUBAL LIGATION HX 08/11/97 Current Outpatient Medications Medication Sig acetaminophen 300 mg-caffeine 40 mg-butalbital 50 mg (FIORICET) per capsule TAKE 1 CAPSULE BY MOUTHTWICE DAILY FOR 28 DAYS lisinopril (ZESTRIL, PRINIVIL) 10 mg tablet Take 1 tablet by mouth once daily. hyoscyamine sublingual (LEVSIN/SL) 0.125 mg Dissolve 1 tablet under the tongue every 4 hours as needed. buprenorphine 20 mcg/hour ptwk APPLY 1 PATCH TOPICALLY ONCE A WEEK FOR 4 WEEKS promethazine (PHENERGAN) 25 mg suppository 1 Suppository by RECTAL route every 6 hours as needed. atorvastatin (LIPITOR) 10 mg tablet Take 1 tablet by mouth once daily. metFORMIN ER (GLUCOPHAGE XR) 500 mg 24 hr tablet Take 1 tablet by mouth daily with breakfast. busPIRone HCl 30 mg tablet Take 1 tablet by mouth twice daily. SUMAtriptan (IMITREX) 50 mg tablet Take 1 tablet by mouth as needed. citalopram (CELEXA) 40 mg tablet Take 1 tablet by mouth once daily. upadacitinib (RINVOQ ORAL) Take 15 mg by mouth. omeprazole (PRILOSEC) 40 mg capsule Take 40 mg by mouth once daily. amitriptyline (ELAVIL) 10 mg tablet Take 1 tablet by mouth daily at bedtime. gabapentin (NEURONTIN) 300 mg capsule Take 1 capsule by mouth four times daily. predniSONE (DELTASONE) 10 mg tablet Take 1 tablet by mouth as needed for Pain. promethazine (PHENERGAN) 25 mg tablet Take 1 tablet by mouth every 6 hours as needed. meloxicam (MOBIC) 7.5 mg tablet Take 7.5 mg by mouth once daily. cyclobenzaprine (FLEXERIL) 10 mg tablet Take 10 mg by mouth three times daily as needed. Cetirizine 10 mg cap Take by mouth. CALCIUM POLYCARBOPHIL (FIBER LAXATIVE ORAL) Take by mouth. multivitamin tablet Take 1 tablet by mouth once daily. latanoprost (XALATAN) 0.005 % ophthalmic solution 1 Drop daily at bedtime. docusate sodium (COLACE) 100 mg capsule Take 100 mg by mouth twice daily. peg 3350-Electrolytes (GOLYTELY) 236-22.74-6.74 -5.86 gram suspension Take 4,000 mL by mouth one time only for 1 dose. Refer to printed prep instructions from your provider. oxyCODONE-acetaminophen (PERCOCET) 5-325 mg tablet TAKE 1 TABLET BY MOUTH TWICE DAILY FOR 17 DAYS (Patient not taking: Reported on 04/11/2022) ALLERGIES: Jessica [Fexofenadine Hcl], Augmentin [Amoxicillin-Pot Clavulanate], Bentyl [DicyclomineHcl], Biaxin [Clarithromycin], Ceclor [Cefaclor], Celebrex [Celecoxib], Colestipol, Compazine [Prochlorperazine Edisylate], Doxepin, Fentanyl, Humira [Adalimumab], Levaquin [Levofloxacin], Plaquenil [ Hydroxychloroquine Sulfate], Seldane, Septra [Sulfamethoxazole-Trimethoprim], Sulfa (Sulfonamide Antibiotics), Vibramycin [Doxycycline Calcium], and Vicodin [Hydrocodone-Acetaminophen] PERSONAL HISTORY: Social History Tobacco Use Smoking status: Never Smokeless tobacco: Never Vaping Use Vaping Use: Never used Substance Use Topics Alcohol use: No Drug use: No FAMILY HISTORY Problem Relation Age of Onset Diabetes Mother Hypertension Mother Heart Attack Mother Diabetes Father Hypertension Father Heart Attack Father COPD Sister other (sjorgens) Sister affects vision other (Other) Sister lupus Bipolar disorder Daughter Diabetes Maternal Grandmother The review of systems data was entered by the nurse and reviewed by ia Nursing Notes: Dominique Augustine RN 04/11/2022 3:18 PM Signed REVIEW OF SYSTEMS: General: The patient denies fatigue, denies weight loss, NOTES weight gain, denies feeling hot, anddenies feelings of cold. Eyes: The patient NOTES glaucoma, denies eye injury/surgery, wears glasses or contacts. Ear/Nose/Throat: The patient NOTES allergies, denies hayfever, denies ear infections, and denies bloody noses. Cardiovascular: The patient denies chest pain, denies heart disease, NOTES high blood pressure,denies cardiac stent, denies prior heart attack, denies irregular heart beat, denies high cholesterol, denies poor circulation, denies heart failure, other cardiac issues, NOTES claudication, denies cold feet, denies peripheral arterial stent. Respiratory: The patient denies tuberculosis, denies pneumonia, denies frequent cough, denies pulmonary embolism, denies shortness of breath, and denies coughing up blood. Gastrointestinal: The patient denies difficulty swallowing, denies acid reflux, denies ulcers, denies vomiting, denies jaundice/hepatitis, denies gallbladder problems, denies black or tarry stools, denies hemorrhoids, denies bleeding from rectum, denies diverticulitis, NOTES constipation, denies diarrhea, denies loss of stool control, and denies hernias. Kidney/Bladder: The patient denies kidney stones, denies urine infections, and denies bloody urine. Skin: The patient denies a history of skin cancer, denies bleeding/changing moles, and denies a history of skin rash. Neurologic: The patient denies a history of epilepsy/convulsions, NOTES headaches, denies head/spinal injuries, and denies stroke/TIA. Psychiatric: The patient denies psychiatric medications, NOTES depression, and denies voices, denies substance abuse. Endocrine: The patient denies thyroid disorders, NOTES diabetes, and denies hormonal problems. Hematologic: The patient denies a history of bruising, denies bleeding, and denies anemia, denies blood clots. Infections: The patient denies a history of measles and mumps, NOTES rheumatic fever, and denies sexually transmitted diseases. Musculoskeletal: The patient denies back pain/injury, NOTES back problems, NOTES sciatica, NOTES knee/foot trouble, NOTES arthritis, or denies gout. When was patient's last Mammogram screening? 04/01/2021 Last Colonoscopy: 2012 Dominique Augustine RN PHYSICAL EXAMINATION: General: The patient is 62 year old female, well nourished, well hydrated in no acute distress. Thepatient is oriented to time, place, and person. VITALS: Blood pressure 140/72, pulse 100, temperature 36.7 C (98 F), height 167.6 cm (5' 6 ), weight 112.7 kg (248 lb 6.4 oz), SpO2 98 %. Body mass index is 40.09 kg/m . Head: Normal cephalic, atraumatic Eyes: pupils are equally round, sclera are clear/anicteric, wearing glasses Neck is supple with no tracheal deviation Respiratory: Normal respiratory excursion and pattern. Abdominal exam: benign Extremities: no clubbing, cyanosis or edema. Neuro: non focal Psych: normal mood Assessment IMPRESSION: nausea/emesis, change in bowel habits PLAN: I have discussed the above with the patient. I have offered colonoscopy and EGD , possible biopsies I have explained the procedure to the patient. I have counseled the patient as to the risks of the procedure, including but not limited to: infection, bleeding, injury to any intrabdominal organs such as liver/spleen, perforation of the GI tract,inability to complete the procedure, complications of anesthesia, etc. - the patient understands. The patient was offered a surgery/procedure [facility] facility. The provider and patient have discussed in detail the risk of exposure to and/or potential harm posed by the COVID-19 viruswith having a surgery/procedure at this time versus the risk of delaying the surgery/procedure. It is not possible to know either the risk of delaying the surgery or procedure or chance of getting aninfection with perfect accuracy, but a joint decision was made between the patient and the providerto proceed at this time with the scheduled surgery/procedure. I have explained to the patient the difference between IV conscious sedation and MAC anesthesia - and I have offered either, according to the patient's wishes. I have explained that with IV conscioussedation there is no anesthesia provider available and therefore there is a limitation of the amount of IV medications that can be given and that the patient may wake up in the middle of the procedure and/or experience pain/discomfort during the procedure. Further discussion was done and the patient was given the opportunity to ask questions and all questions were answered. The patient chooses IVconscious sedation - she understands that she will probably be 'awake' during the procedure and that if she is too uncomfortable the procedure may be aborted. Patient was counseled that if there are changes in his/her medical condition, to let the office know if surgery should proceed. If there are changes in patient's medical condition from time of this encounter to the day of the procedure that preclude anesthesia, patient may have procedure cancelled for patient's safety. The patient wishes to proceed. I have answered all questions to the patient s satisfaction and the patient has no further questions. Diagnoses: (R19.4) Change in bowel habits (R11.0) Nausea I have confirmed and edited as necessary, the PFSH and ROS obtained by others. Consultation requested by Dr. Mikayla Strange for an opinion regarding patient's intermittent nausea and changes in bowel habits.. My final recommendations will be communicated back to the requesting physician by way of shared Medical record or letter to requesting physician via US mail. Return to Clinic: The patient will be scheduled for colonoscopy/EGD at [facility] Medical Decision Making: Problems: Moderate: 2+ stable chronic illnesses Risk: Low: Low risk from testing/treatment Medical Decision Making Level: 3 - Low Gwen Blakely MD [facility]10[facility] Instructions* Patient Instructions* Gwen Blakely MD - 04/11/2022 3:17 PM EDT Images from the original note were not included. Bowel Preparation Instructions for: Golytely, Nulytely, Trilyte or Colyte (polyethylene glycol 3350and electrolytes) IF YOU DO NOT FOLLOW THESE DIRECTIONS, YOUR COLONOSCOPY WILL BE CANCELLED. Nascimento Instructions: Your bowel must be empty so that your doctor can clearly view your colon. Follow all of the instructions in this handout EXACTLY as they are written. Do NOT eat any solid food the ENTIRE day before your colonoscopy. Drink only clear liquids. Buy your bowel preparation at least 5 days before your colonoscopy. TRANSPORTATION on the Day of Your Exam A responsible person MUST be present with you at Check In prior to your colonoscopy and REMAIN in the endoscopy area until you are discharged. You are NOT ALLOWED to drive, take a taxi or bus, or leave the Endoscopy Center ALONE. If you do not have a responsible tow motor driver (family member or friend) with you to take you home, your exam cannot be done with sedation and will be cancelled. Please bring a list of all of your current medications, including any Over-the Counter medications with you. Medications If you take insulin, diabetic medications or blood thinners such as Coumadin (warfarin), Plavix (clopidogrel), Ticlid (ticlopidine hydrochloride), Agrylin (anagrelide), Xarelto (Rivaroxaban), Pradaxa(Dabigatran), Eliquis (Apixaban), and Effient (Prasugrel). You MUST call the doctors who orders those medicines for instructions on altering the dosage before your colonoscopy. All other medications should be taken the day of the exam with a sip of water including ASPIRIN. Five (5) Days Before Your Colonoscopy Do NOT take medicines that stop diarrhea - such as Imodium, Kaopectate, or Pepto Bismol. Do NOT take fiber supplements - such as Metamucil, Citrucel, or Perdiem. Do NOT take products that contain iron - such as multi-vitamins (the label lists what is in the products). Do NOT take Vitamin E. Buy the prescription bowel preparation solution at your local pharmacy or drugstore pharmacy. 05/2019 Bowel Preparation Instructions for: Golytely, Nulytely, Trilyte or Colyte (polyethylene glycol 3350and electrolytes) Three (3) Days Before Your Colonoscopy Do NOT eat high-fiber foods - such as popcorn, beans, seeds (flax, sunflower, quinoa), multigrain bread, nuts, salad/vegetables, or fresh and dried fruit. One (1) Day Before Your Colonoscopy Only drink clear liquids the ENTIRE DAY before your colonoscopy. Do NOT eat any solid foods. Drink at least 8 ounces of clear liquids every hour after waking up. The clear liquids you can drink include: Clear Liquid (NO RED LIQUIDS) DO NOT DRINK Gatorade, Pedialyte or Powerade Clear broth or bouillon Coffee or tea (no milk or non-dairy creamer) Carbonated and non-carbonated soft drinks Sarath-Aid or other fruit flavored drinks Strained fruit juices (no pulp) Jell-O, popsicles, hard candy Water Alcohol Milk or non-dairy creamers Noodles or vegetables in soup Juice with pulp Liquid you cannot see through Do not use tobacco/vaping products The bowel preparation solution will be consumed in two parts. Mix the solution the evening before your colonoscopy and refrigerate before drinking. You may add the flavor pack that came with the bowel preparation. Do NOT add ice, sugar or any other flavorings to the solution. Part 1 At 6:00 PM - Evening before your colonoscopy Drink an 8-oz glass of bowel preparation every 10 minutes for a total of 8 glasses. You may continue to drink clear liquids until midnight. Part 2 On the day of your colonoscopy you may drink clear liquids up to (three) 3 hours before your procedure. 4 1/2 hours before your colonoscopy Drink an 8-oz glass of bowel preparation every 10 minutes for a total of 8 glasses. Fifteen (15) minutes later, drink an 8-oz glass of clear liquids every 15 minutes for a total of 2 glasses. You may continue to drink clear liquids up to (three) 3 hours before your exam. 2 05/2019 documented [facility] Nurse Note* Dominique Augustine RN - 04/11/2022 3:16 PM EDT REVIEW OF SYSTEMS: General: The patient denies fatigue, denies weight loss, NOTES weight gain, denies feeling hot, anddenies feelings of cold. Eyes: The patient NOTES glaucoma, denies eye injury/surgery, wears glasses or contacts. Ear/Nose/Throat: The patient NOTES allergies, denies hayfever, denies ear infections, and denies bloody noses. Cardiovascular: The patient denies chest pain, denies heart disease, NOTES high blood pressure,denies cardiac stent, denies prior heart attack, denies irregular heart beat, denies high cholesterol, denies poor circulation, denies heart failure, other cardiac issues, NOTES claudication, denies cold feet, denies peripheral arterial stent. Respiratory: The patient denies tuberculosis, denies pneumonia, denies frequent cough, denies pulmonary embolism, denies shortness of breath, and denies coughing up blood. Gastrointestinal: The patient denies difficulty swallowing, denies acid reflux, denies ulcers, denies vomiting, denies jaundice/hepatitis, denies gallbladder problems, denies black or tarry stools, denies hemorrhoids, denies bleeding from rectum, denies diverticulitis, NOTES constipation, denies diarrhea, denies loss of stool control, and denies hernias. Kidney/Bladder: The patient denies kidney stones, denies urine infections, and denies bloody urine. Skin: The patient denies a history of skin cancer, denies bleeding/changing moles, and denies a history of skin rash. Neurologic: The patient denies a history of epilepsy/convulsions, NOTES headaches, denies head/spinal injuries, and denies stroke/TIA. Psychiatric: The patient denies psychiatric medications, NOTES depression, and denies voices, denies substance abuse. Endocrine: The patient denies thyroid disorders, NOTES diabetes, and denies hormonal problems. Hematologic: The patient denies a history of bruising, denies bleeding, and denies anemia, denies blood clots. Infections: The patient denies a history of measles and mumps, NOTES rheumatic fever, and denies sexually transmitted diseases. Musculoskeletal: The patient denies back pain/injury, NOTES back problems, NOTES sciatica, NOTES knee/foot trouble, NOTES arthritis, or denies gout. When was patient's last Mammogram screening? 04/01/2021 Last Colonoscopy: 2012 Dominique Augustine RN documented [facility]10[facility]22 Miscellaneous Notes* Telephone Encounter - Mikayla Strange MD - 04/05/2022 2:42 PM EDT Ok. Thank you. * Telephone Encounter - Ashley Marsh RN - 04/05/2022 1:45 PM EDT Contacted patient for further triage. Declines appt unless provider advises. Patient states she gets this as recurrent issue. Also states she has ordered blood work by Dr. Strange that is overdue that she will have completed when feeling better. Reason for Disposition Excessive sweating is a chronic symptom (recurrent or ongoing AND present > 4 weeks) Answer Assessment - Initial Assessment Questions Patient sent MC message to provider today (see MC message) to update him that she feels like she has a fever but her thermometer says 98 degrees. Patient contacted for further triage. Patient reportsshe is sweating profusely, started yesterday again. Sweat is pouring off of her . States this is recurrent and has been off and on for about 10 years. She states her mine expert Dr. Ortiz states it is likely an autoimmune issue-saw her a few weeks ago. Denies chest pain, SOB or dizziness. + cough, +body aches, +sore throat, +headaches-she states all these symptoms always go together and arerecurrent. Feels like the flu but it's not. 1. ONSET:yesterday, but has, been going on for approx 10 years or more 2. LOCATION: entire body 3. SEVERITY: moderate- has to change clothing at times 4. CAUSE: as above 5. FEVER: no 6. OTHER SYMPTOMS: No chest pain, no difficulty breathing, no lightheadedness. Taking Fiorcet twicedaily prescribed by Dr. Ward due to spine narrowing.States has all of these symptoms reoccur Protocols used: [id number] documented in this encounterGe[facility]09-28-2022 Miscellaneous Notes* Telephone Encounter - Bre Castillo Ma - 03/23/2022 6:09 PM EDT Pt notified and voiced understanding. Please file CBC order. Bre Castillo Ma * Telephone Encounter - Mikayla Strange MD - 03/23/2022 5:42 PM EDT White count is up some and kidney function is slightly down. Work on pushing fluids and recheck cbcin two weeks. Call if any symptoms or signs of inection. Sugars borderline. Watch diet. documented in this encounterGe[facility]09-08-2022 Miscellaneous Notes* Telephone Encounter - Monik Hsu Pss - 03/03/2022 11:52 AM EDT Pharmacy verified in [facility] Patient has been identified by name and date of : Yes Patient aware RX will be sent to pharmacy. No need to notify patient. Patient phones for refill(s): Requested Prescriptions Pending Prescriptions Disp Refills lisinopril (ZESTRIL, PRINIVIL) 10 mg tablet 30 tablet 5 Sig: Take 1 tablet by mouth once daily. hyoscyamine sublingual (LEVSIN/SL) 0.125 mg 60 tablet 3 Sig: Dissolve 1 tablet under the tongue every 4 hours as needed. Date of last office visit : 01/14/2022 Date of next office visit : 03/22/2022 Last 2 Encounter Wt Readings: Date: Wt: 01/14/2022 116.6 kg (257 lb) 11/17/2021 117.9 kg (260 lb) Please advise. Monik Ponce documented in this encounterGe[facility]08-09-2022 History of Present illness Narrative* Comfort Muniz - 02/01/2022 7:36 AM EDT Images from the original note were not included. FOLLOW UP PODIATRIC OFFICE VISIT Chief Complaint: This 61 year old who presents for follow up:left foot pain Patient presents to clinic with ongoing left foot pain. She has pain along the medial aspect of left ankle extending to the plantar arch. She states the pain is present throughout the day but worse with standing. She is here to review options including possibly discussing surgery. PAIN EVALUATION 01/31/2022 1506 Pain Level: 8 Pain Location: Foot-Left Description: Sore;Sharp;Shooting Duration Amount of Time: 10 Duration Units: Months Frequency: Continuous Intervention/Comfort measure: Reposition;Relaxation;Medication pain mangement Hemoglobin A1C Date Value Ref Range Status 10/25/2021 6.3 (H) 4.3 - 5.6 % Final Comment: [place] [employer] guidelines indicate that patients with HgbA1c in the range 5.7-6.4% are at increased risk for development of diabetes, and intervention by lifestyle modification may be beneficial. HgbA1c greater or equal to 6.5% is considered diagnostic of diabetes. PCP: Mikayla Strange MD PAST MEDICAL HISTORY Diagnosis Date Anxiety disorder Chronic back pain Dr. Burks-pain management Depressive disorder, not elsewhere classified Essential hypertension, benign Fibromyalgia Glaucoma IBS (irritable bowel syndrome) Migraine, unspecified, without mention of intractable migraine without mention of status migrainosus Pure hypercholesterolemia Rheumatoid arthritis (HCC) Snoring Current Outpatient Medications Medication Sig oxyCODONE-acetaminophen (PERCOCET) 5-325 mg tablet TAKE 1 TABLET BY MOUTH TWICE DAILY FOR 17 DAYS lisinopril (ZESTRIL, PRINIVIL) 10 mg tablet Take 1 tablet by mouth once daily. promethazine (PHENERGAN) 25 mg suppository 1 Suppository by RECTAL route every 6 hours as needed. atorvastatin (LIPITOR) 10 mg tablet Take 1 tablet by mouth once daily. metFORMIN ER (GLUCOPHAGE XR) 500 mg 24 hr tablet Take 1 tablet by mouth daily with breakfast. busPIRone HCl 30 mg tablet Take 1 tablet by mouth twice daily. SUMAtriptan (IMITREX) 50 mg tablet Take 1 tablet by mouth as needed. hyoscyamine sublingual (LEVSIN/SL) 0.125 mg Dissolve 1 tablet under the tongue every 4 hours as needed. citalopram (CELEXA) 40 mg tablet Take 1 tablet by mouth once daily. upadacitinib (RINVOQ ORAL) Take 15 mg by mouth. naproxen (NAPROSYN) 500 mg tablet Take 500 mg by mouth twice daily with meals. omeprazole (PRILOSEC) 40 mg capsule Take 40 mg by mouth once daily. amitriptyline (ELAVIL) 10 mg tablet Take 1 tablet by mouth daily at bedtime. gabapentin (NEURONTIN) 300 mg capsule Take 1 capsule by mouth four times daily. predniSONE (DELTASONE) 10 mg tablet Take 1 tablet by mouth as needed for Pain. promethazine (PHENERGAN) 25 mg tablet Take 1 tablet by mouth every 6 hours as needed. cyclobenzaprine (FLEXERIL) 10 mg tablet Take 10 mg by mouth three times daily as needed. Cetirizine 10 mg cap Take by mouth. CALCIUM POLYCARBOPHIL (FIBER LAXATIVE ORAL) Take by mouth. multivitamin tablet Take 1 tablet by mouth once daily. latanoprost (XALATAN) 0.005 % ophthalmic solution 1 Drop daily at bedtime. docusate sodium (COLACE) 100 mg capsule Take 100 mg by mouth twice daily. buprenorphine 20 mcg/hour ptwk APPLY 1 PATCH TOPICALLY ONCE A WEEK FOR 4 WEEKS meloxicam (MOBIC) 7.5 mg tablet Take 7.5 mg by mouth once daily. (Patient not taking: No sig reported) Current Facility-Administered Medications Medication Dose Route Frequency perflutren lipid microspheres 1.3 mL in NaCl (PF) 0.9% 10 mL injection (DEFINITY) INTRAVENOUS DIRECTED PRN sodium chloride 0.9 % (flush) 10 mL (BD POSIFLUSH) 10 mL INTRAVENOUS DIRECTED PRN ALLERGIES Allergen Reactions Jessica [Fexofenadi* Intolerance Augmentin [Amoxicil* Intolerance Bentyl [Dicyclomine* GI Upset Biaxin [Clarithromy* Intolerance Ceclor [Cefaclor] Intolerance Celebrex [Celecoxib] Intolerance Colestipol Other: See Comments shaky/headaches/increased nausea Compazine [Prochlor* Intolerance Doxepin Intolerance Fentanyl Intolerance Humira [Adalimumab] Intolerance Levaquin [Levofloxa* Intolerance Plaquenil [Hydroxyc* Intolerance Seldane Intolerance Septra [Sulfamethox* Intolerance Sulfa (Sulfonamide * Intolerance Vibramycin [Doxycyc* Intolerance Vicodin [Hydrocodon* Intolerance PAST SURGICAL HISTORY Procedure Laterality Date APPENDECTOMY 12/18/2014 Dr. Blakely ARTHRP KNE CONDYLE&PLATU MEDIAL&LAT COMPARTMENTS 04/22/2014 right COLONOSCOPY FLX DX W/COLLJ SPEC WHEN PFRMD 10/01/12 suboptimal - poor prep EGD ESOPHAGOGASTRODUODENOSCOPY TRANSORAL DIAGNOSTIC 07/30/14 EGD LAPAROSCOPY SURG CHOLECYSTECTOMY 12/31/1993 PAST SURGICAL HISTORY OF 95 knee, right arthroscopy TUBAL LIGATION HX 08/11/97 Physical Exam: OBJECTIVE: Constitutional: Pt is a well developed 61 year old female who is alert, oriented, cooperative and in no apparent distress. Eyes: Following during examination. No redness or drainage. Respiratory: RR normal and nonlabored. Even breathing. No evidence of distress. Psychology: Patient is engaged during conversation. Normal affect and mood. Does not appear depressed or anxious. NVSI unchanged from previous visit. Dermatological: Nails 1-5 b/l are normal. Webspaces clean and dry 1-4 b/l. Skin appears well hydrated and supple. good color, texture, turgor. No open lesions present. No callosities present. Musculoskeletal/Orthopaedic: Patient has pain to palpation of left medial ankle along posterior tibial tendon. There is mild pain with palpation of left 2nd tarsal metatarsal joint. No pain with palpation of left 4th metatarsal Weightbearing demonstrates loss of medial arch b/l. 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 Discussed left foot pain. Suspect posterior tibial tendon dysfunction. We discussed today use ofpowerstep inserts vs boot immobilization. If pain is reduced with powerstep inserts, she may benefit from custom orthotics. If pain is controlled with orthotics, she may not require surgical intervention immediately. Surgery on this patient certainly carries extra risk due to diabetes, rheumatoid arthritis , increased bmi and increased swelling. 2. If pain continues, could consider xray guided injection of midfoot as her pain may very well be associated with arthritis of midfoot. Try inserts first. 3. Discussed fracture of 4th metatarsal. 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 She has no pain to this location. Surgical intervention would involve resection of nonunion, bone grafting and nwb. Will monitor for now. Comfort Muniz DPM * Angelic Montgomery LPN - 01/31/2022 3:06 PM EDT AMB ROOMING INTAKE FLOWSHEET DATA Risk Screening Do you have concerns about personal safety or safety in the home?: No Pain Pain Level: 8 Pain Location: Foot-Left Description: Sore, Sharp, Shooting Duration Amount of Time: 10 Duration Units: Months Frequency: Continuous Intervention/Comfort measure: Reposition, Relaxation, Medication (pain mangement) Patient presents with: Left Foot - Established Patient, Follow Up, Pain Patient would like to discuss surgery today. Angelic Montgomery LPN documented [facility]08-08-2022 Instructions* Patient Instructions* Comfort Muniz - 01/31/2022 4:03 PM EDT Powerstep Original Full length. Can purchase at [employer] here in [place], [employer] in [place] or [place]. Also can find in [employer] in [facility]. Powersteps can also be purchased online, starting around $25.00 If you have a metatarsal or dancer pad for your feet apply the pad directly to the insole so you can interchange between your shoes. Find a shoe with a removable insole and take this out and replace with your powerstep insole. Always bring powersteps with you when shopping for shoes so that you can make sure that everything fits well together Try the insert for the next month or so If these help, would do custom orthotic. If no improvement, consider injection vs mri documented in this encounterGe[facility]07-22-2022 History of Present illness Narrative* Mikayla Strange MD - 01/14/2022 10:09 AM EDT No chief complaint on file. HPI: Patient presents today for office visit for follow up. Dr Ward is adjusting her meds. Dr. Muniz is considering surgery. Her left arm has been ok. She sis feeling some pounding is when up and walking. She did notice some mild discoloration to her finger tips last night. That was the only time since last here. They were reddish last night. Not sure if could be just venous. Not cold or painful. Offered pad testing. She declines. Red flags for re- assessment reviewed with patient in detail. No further arm pain. No chest pain or shortness of breath She feels much better since on lisinopril. Home bp has been ok as well. See my ov from November: She has paused the marijuana use for her nausea. She is wanting to see if it is contributing. She has had nausea for 40 Years but is worse with medical marijuana. Her bp has been up. She states she can feel it when it goes and can feel it in her head when it goes up. No new chest pain No shortness of breath. She has noted pain on the outside of her left am over the last few months. She has not had any of that in the last few weeks. Can get arm pain on and off for a few days. Accompanies her nausea. May be worse with exertion. She has not had any pain in a little while. Has noted some swelling in her left foot since March. Has chronic pedal edema for years No trauma. No current redness or warmth. Wears a brace that helps. Suggested she follow with gi. See visit from [place] in December: Patient presents with: Acute Visit: discolored finger tips Pt presents today with complaint of discolored fingertips. Refers that she was walking down a hallway in the hospital earlier today (her daughter was being admitted). Refers that she was having a hard time keeping up. Refers they were moving rather quickly. She looked down and noticed that her fingers were [place]. Refers that she was a little out of breath from trying to walk fast to keep up with the nurse/daughter going down the gomes. Denies any CP/palpitations. Refers bilateral hands up to the DIP. Refers her hands were cold. Nonsmoker. No hx of asthma. Does have hx of RA. Thinks that she also had rheumatic fever as child. Echo: Technically difficult exam due to body habitus. - Exam indication: Shortness of Breath - The left ventricle is normal in size. Left ventricular systolic function is normal. EF = 55 5% (visual est.) Grade I left ventricular diastolic dysfunction. - The right ventricle is normal in size. Right ventricular systolic function is normal. - There are no significant valvular abnormalities. - Definity unavailable. - The patient has not had a prior CC echocardiographic exam for comparison. Chest xray was negative Stress test:had nuclear stress test on Monday which showed normal EF. Max heart rate was 66% but noischemia seen on nuclear scan. MEDICATIONS: Current Outpatient Medications Medication Sig buprenorphine 20 mcg/hour ptwk APPLY 1 PATCH TOPICALLY ONCE A WEEK FOR 4 WEEKS oxyCODONE-acetaminophen (PERCOCET) 5-325 mg tablet TAKE 1 TABLET BY MOUTH TWICE DAILY FOR 17 DAYS lisinopril (ZESTRIL, PRINIVIL) 10 mg tablet Take 1 tablet by mouth once daily. promethazine (PHENERGAN) 25 mg suppository 1 Suppository by RECTAL route every 6 hours as needed. atorvastatin (LIPITOR) 10 mg tablet Take 1 tablet by mouth once daily. metFORMIN ER (GLUCOPHAGE XR) 500 mg 24 hr tablet Take 1 tablet by mouth daily with breakfast. busPIRone HCl 30 mg tablet Take 1 tablet by mouth twice daily. SUMAtriptan (IMITREX) 50 mg tablet Take 1 tablet by mouth as needed. hyoscyamine sublingual (LEVSIN/SL) 0.125 mg Dissolve 1 tablet under the tongue every 4 hours as needed. citalopram (CELEXA) 40 mg tablet Take 1 tablet by mouth once daily. upadacitinib (RINVOQ ORAL) Take 15 mg by mouth. naproxen (NAPROSYN) 500 mg tablet Take 500 mg by mouth twice daily with meals. omeprazole (PRILOSEC) 40 mg capsule Take 40 mg by mouth once daily. amitriptyline (ELAVIL) 10 mg tablet Take 1 tablet by mouth daily at bedtime. gabapentin (NEURONTIN) 300 mg capsule Take 1 capsule by mouth four times daily. predniSONE (DELTASONE) 10 mg tablet Take 1 tablet by mouth as needed for Pain. promethazine (PHENERGAN) 25 mg tablet Take 1 tablet by mouth every 6 hours as needed. meloxicam (MOBIC) 7.5 mg tablet Take 7.5 mg by mouth once daily. (Patient not taking: Reported on 09/17/2021 ) cyclobenzaprine (FLEXERIL) 10 mg tablet Take 10 mg by mouth three times daily as needed. Cetirizine (ZYRTEC) 10 mg cap Take by mouth. CALCIUM POLYCARBOPHIL (FIBER LAXATIVE ORAL) Take by mouth. multivitamin tablet Take 1 tablet by mouth once daily. latanoprost (XALATAN) 0.005 % ophthalmic solution 1 Drop daily at bedtime. docusate sodium (COLACE) 100 mg capsule Take 100 mg by mouth twice daily. Current Facility-Administered Medications Medication Dose Route Frequency perflutren lipid microspheres 1.3 mL in NaCl (PF) 0.9% 10 mL injection (DEFINITY) INTRAVENOUS DIRECTED PRN sodium chloride 0.9 % (flush) 10 mL (BD POSIFLUSH) 10 mL INTRAVENOUS DIRECTED PRN ALLERGIES: ALLERGIES Allergen Reactions Jessica [Fexofenadi* Intolerance Augmentin [Amoxicil* Intolerance Bentyl [Dicyclomine* GI Upset Biaxin [Clarithromy* Intolerance Ceclor [Cefaclor] Intolerance Celebrex [Celecoxib] Intolerance Colestipol Other: See Comments shaky/headaches/increased nausea Compazine [Prochlor* Intolerance Doxepin Intolerance Fentanyl Intolerance Humira [Adalimumab] Intolerance Levaquin [Levofloxa* Intolerance Plaquenil [Hydroxyc* Intolerance Seldane Intolerance Septra [Sulfamethox* Intolerance Sulfa (Sulfonamide * Intolerance Vibramycin [Doxycyc* Intolerance Vicodin [Hydrocodon* Intolerance PAST MEDICAL HISTORY Diagnosis Date Anxiety disorder Chronic back pain Dr. Burks-pain management Depressive disorder, not elsewhere classified Essential hypertension, benign Fibromyalgia Glaucoma IBS (irritable bowel syndrome) Migraine, unspecified, without mention of intractable migraine without mention of status migrainosus Pure hypercholesterolemia Rheumatoid arthritis (HCC) Snoring PAST SURGICAL HISTORY Procedure Laterality Date APPENDECTOMY 12/18/2014 Dr. Blakely ARTHRP KNE CONDYLE&PLATU MEDIAL&LAT COMPARTMENTS 04/22/2014 right COLONOSCOPY FLX DX W/COLLJ SPEC WHEN PFRMD 10/01/12 suboptimal - poor prep EGD ESOPHAGOGASTRODUODENOSCOPY TRANSORAL DIAGNOSTIC 07/30/14 EGD LAPAROSCOPY SURG CHOLECYSTECTOMY 12/31/1993 PAST SURGICAL HISTORY OF 95 knee, right arthroscopy TUBAL LIGATION HX 08/11/97 FAMILY HISTORY Problem Relation Age of Onset Diabetes Mother Hypertension Mother Heart Attack Mother Diabetes Father Hypertension Father Heart Attack Father COPD Sister other (sjorgens) Sister affects vision other (Other) Sister lupus Bipolar disorder Daughter Diabetes Maternal Grandmother Social History Tobacco Use Smoking status: Never Smoker Smokeless tobacco: Never Used Vaping Use Vaping Use: Never used Substance Use Topics Alcohol use: No Drug use: No Reviewed current medications, allergies, past medical history, surgical history, family history andsocial history today. REVIEW OF SYSTEMS All other reviewed and negative other than HPI. VITALS: BP 118/70 Pulse 88 Wt 116.6 kg (257 lb) BMI 41.80 kg/m Last 4 Encounter Wt Readings: Date: Wt: 11/17/2021 117.9 kg (260 lb) 09/17/2021 122.6 kg (270 lb 3.2 oz) 04/12/2021 121.6 kg (268 lb) 04/08/2021 121.1 kg (267 lb) PHYSICAL EXAMINATION: General appearance: Well appearing, alert, in no acute distress, well-hydrated, well nourished. Skin: Skin color, texture, turgor normal, no suspicious rashes or lesions Head: Normocephalic, no masses, lesions, tenderness or abnormalities Lungs: Lungs clear to auscultation. No wheezing, rhonchi, rales Heart: RRR without murmur, gallop, or rubs. No ectopy Abdomen: Normal abdominal exam, Abdomen soft, non-tender. Bowel sounds normal. No masses, organomegaly Extremities: No deformities, edema, skin discoloration, clubbing or cyanosis. Good capillary refill. Musculoskeletal: No joint swelling, deformity, or tenderness Peripheral pulses: Normal Neuro: Negative. ASSESSMENT/PLAN: 1. Primary hypertension - ICD9: 401.9, ICD10: I10 - good control - Continue lisinopril. Call if any issues. Will follow clinically. - Goal of BP <130/80 Mikayla Strange Keep next appt documented in this encounterGe[facility]07-07-2022 Instructions* Patient Instructions* Comfort Muniz - 12/30/2021 10:14 AM EDT Diabetes Foot Care Instructions When you have diabetes, proper foot care is very important. Poor foot care may lead to amputation of a foot or leg. As a person with diabetes, you are more vulnerable to foot problems, because diabetes can damage your nerves and reduce blood flow to your feet. Here are some diabetes foot care tips to follow: Wash and Dry Your Feet Daily Use mild soaps Use warm water Pat your skin dry; do not rub. Thoroughly dry your feet. After washing, use lotion on your feet to prevent cracking. Do not put lotion between your toes. Examine Your Feet Each Day Check the tops and bottoms of your feet. Have someone else look at your feet if you cannot see them. Check for dry, cracked skin. Look for blisters, cuts, scratches, or other sores. Check for redness, increased warmth, or tenderness when touching any area of your feet. Check for ingrown toenails, corns, and calluses. If you get a blister or sore from your shoes, do not pop it. Apply a bandage and wear a differentpair of shoes. Take Care of Your Toenails Cut toenails after bathing, when they are soft. Cut toenails straight across and smooth with a nail file. Avoid cutting into the corners of toes. Do not cut cuticles. If you have neuropathy (or decreased sensation in your feet) a snack foods mixer operator should always cut your toenails. Be Careful When Exercising Walk and exercise in comfortable shoes. Do not exercise when you have open sores on your feet. Protect Your Feet With Shoes and Socks Never go barefoot. Always protect your feet by wearing shoes or hard-soled slippers or footwear. Avoid shoes with high heels and pointed toes. Avoid shoes that expose your toes or heels (such as open-toed shoes or sandals). These types of shoes increase your risk for injury and potential infections. Try on new footwear with the type of socks you usually wear. Do not wear new shoes for more than an hour at a time. Change your socks daily. Look and feel inside your shoes before putting them on to make sure there are no foreign objects orrough areas. Avoid tight socks. Wear natural-fiber socks (cotton, wool, or a cotton-wool blend). Wear special shoes if your health care provider recommends them. Wear shoes/boots that will protect your feet from various weather conditions (cold, moisture, etc.). Make sure your shoes fit properly. If you have neuropathy (nerve damage), you may not notice that your shoes are too tight. Perform the footwear test described below. Footwear Test Use this simple test to see if your shoes fit correctly: Stand on a piece of paper. (Make sure you are standing and not sitting, because your foot changes shape when you stand.) Trace the outline of your foot. Trace the outline of your shoe. Compare the tracings: Is the shoe too narrow? Is your foot crammed into the shoe? The shoe should be at least 1/2 inch longer than your longest toe and as wide as your foot. Proper Shoe Choices The following types of shoes are best for people with diabetes Closed toes and heels Leather uppers without a seam inside At least 1/2 inch extra space at the end of your longest toe Inside of shoe should be soft with no rough areas Outer sole should be made of stiff material Shoes should be at least as wide as your feet Tips for Foot Care in Diabetes Don't wait to treat a minor foot problem if you have diabetes. Follow your health care provider's guidelines and first aid guidelines. Report foot injuries and infections to your health care provider immediately. Check water temperature with your elbow, not your foot. Do not use a heating pad on your feet. Do not cross your legs. Do not self-treat your corns, calluses, or other foot problems. Go to your health care provider or snack foods mixer operator to treat these conditions. Powerstep Original Full length. Can purchase at [employer] here in [place], [employer] in [place] or [place]. Also can find in [place] in [facility]. Powersteps can also be purchased online, starting around $25.00 If you have a metatarsal or dancer pad for your feet apply the pad directly to the insole so you can interchange between your shoes. Find a shoe with a removable insole and take this out and replace with your powerstep insole. Always bring powersteps with you when shopping for shoes so that you can make sure that everything fits well together documented in this [facility]Ge[facility]22 History of Present illness Narrative* Comfort Muniz - 12/30/2021 10:03 AM EDT Consultation requested by Dr. strange for an opinion regarding left foot pain. My final recommendations will be communicated back to the requesting physician by way of shared Medical record or letter torequesting physician via US mail. Initial Office Visit Subjective: This 61 year old female presents to clinic for diabetic foot check. Patient has the following complaints: left foot pain. Patient presents to clinic for evaluation of left foot. She has pain along the left medial arch extending to the top of left foot. Patient states the pain has been present since last March. She states that when she walks, she feels that her foot is titling to the outside. She has purchased a metatarsal pad over the counter and that has helped. she has taken medical marijuana but has stopped. She sees Dr. Ward and plans to see him again to discuss lower extremity pain. Patient admits to being diabetic for 1.5 years years now. Patient + cramping in toes. Patient -painin legs when walking. No other pedal complaints at this time. No change in medications or medical history since last visit. PAIN EVALUATION 12/30/2021 0956 Pain Level: 10 Pain Location: Foot-Left Description: Stabbing;Sharp Duration Amount of Time: 9 Duration Units: Months Frequency: Continuous Intervention/Comfort measure: Medication Hemoglobin A1C (%) Date Value 10/25/2021 6.3 09/23/2021 6.3 03/11/2021 6.5 05/22/2019 6.1 PCP: Mikayla Strange MD PAST MEDICAL HISTORY Diagnosis Date Anxiety disorder Chronic back pain Dr. Burks-pain management Depressive disorder, not elsewhere classified Essential hypertension, benign Fibromyalgia Glaucoma IBS (irritable bowel syndrome) Migraine, unspecified, without mention of intractable migraine without mention of status migrainosus Pure hypercholesterolemia Rheumatoid arthritis (HCC) Snoring Current Outpatient Medications Medication Sig lisinopril (ZESTRIL, PRINIVIL) 10 mg tablet Take 1 tablet by mouth once daily. promethazine (PHENERGAN) 25 mg suppository 1 Suppository by RECTAL route every 6 hours as needed. atorvastatin (LIPITOR) 10 mg tablet Take 1 tablet by mouth once daily. metFORMIN ER (GLUCOPHAGE XR) 500 mg 24 hr tablet Take 1 tablet by mouth daily with breakfast. busPIRone HCl 30 mg tablet Take 1 tablet by mouth twice daily. SUMAtriptan (IMITREX) 50 mg tablet Take 1 tablet by mouth as needed. hyoscyamine sublingual (LEVSIN/SL) 0.125 mg Dissolve 1 tablet under the tongue every 4 hours as needed. citalopram (CELEXA) 40 mg tablet Take 1 tablet by mouth once daily. upadacitinib (RINVOQ ORAL) Take 15 mg by mouth. naproxen (NAPROSYN) 500 mg tablet Take 500 mg by mouth twice daily with meals. omeprazole (PRILOSEC) 40 mg capsule Take 40 mg by mouth once daily. amitriptyline (ELAVIL) 10 mg tablet Take 1 tablet by mouth daily at bedtime. gabapentin (NEURONTIN) 300 mg capsule Take 1 capsule by mouth four times daily. predniSONE (DELTASONE) 10 mg tablet Take 1 tablet by mouth as needed for Pain. promethazine (PHENERGAN) 25 mg tablet Take 1 tablet by mouth every 6 hours as needed. cyclobenzaprine (FLEXERIL) 10 mg tablet Take 10 mg by mouth three times daily as needed. Cetirizine (ZYRTEC) 10 mg cap Take by mouth. CALCIUM POLYCARBOPHIL (FIBER LAXATIVE ORAL) Take by mouth. multivitamin tablet Take 1 tablet by mouth once daily. latanoprost (XALATAN) 0.005 % ophthalmic solution 1 Drop daily at bedtime. docusate sodium (COLACE) 100 mg capsule Take 100 mg by mouth twice daily. meloxicam (MOBIC) 7.5 mg tablet Take 7.5 mg by mouth once daily. (Patient not taking: Reported on 09/17/2021 ) Current Facility-Administered Medications Medication Dose Route Frequency perflutren lipid microspheres 1.3 mL in NaCl (PF) 0.9% 10 mL injection (DEFINITY) INTRAVENOUS DIRECTED PRN sodium chloride 0.9 % (flush) 10 mL (BD POSIFLUSH) 10 mL INTRAVENOUS DIRECTED PRN ALLERGIES Allergen Reactions Jessica [Fexofenadi* Intolerance Augmentin [Amoxicil* Intolerance Bentyl [Dicyclomine* GI Upset Biaxin [Clarithromy* Intolerance Ceclor [Cefaclor] Intolerance Celebrex [Celecoxib] Intolerance Colestipol Other: See Comments shaky/headaches/increased nausea Compazine [Prochlor* Intolerance Doxepin Intolerance Fentanyl Intolerance Humira [Adalimumab] Intolerance Levaquin [Levofloxa* Intolerance Plaquenil [Hydroxyc* Intolerance Seldane Intolerance Septra [Sulfamethox* Intolerance Sulfa (Sulfonamide * Intolerance Vibramycin [Doxycyc* Intolerance Vicodin [Hydrocodon* Intolerance PAST SURGICAL HISTORY Procedure Laterality Date APPENDECTOMY 12/18/2014 Dr. Blakely ARTHRP KNE CONDYLE&PLATU MEDIAL&LAT COMPARTMENTS 04/22/2014 right COLONOSCOPY FLX DX W/COLLJ SPEC WHEN PFRMD 10/01/12 suboptimal - poor prep EGD ESOPHAGOGASTRODUODENOSCOPY TRANSORAL DIAGNOSTIC 07/30/14 EGD LAPAROSCOPY SURG CHOLECYSTECTOMY 12/31/1993 PAST SURGICAL HISTORY OF 95 knee, right arthroscopy TUBAL LIGATION HX 08/11/97 FAMILY HISTORY Problem Relation Age of Onset Diabetes Mother Hypertension Mother Heart Attack Mother Diabetes Father Hypertension Father Heart Attack Father COPD Sister other (sjorgens) Sister affects vision other (Other) Sister lupus Bipolar disorder Daughter Diabetes Maternal Grandmother Social History Tobacco Use Smoking status: Never Smoker Smokeless tobacco: Never Used Vaping Use Vaping Use: Never used Substance Use Topics Alcohol use: No Drug use: No REVIEW OF SYSTEMS GENERAL: Negative for Malaise, significant weight loss, fever RESPIRATORY: Negative for cough, wheezing and shortness of breath CARDIOVASCULAR: Negative for chest pain, leg swelling and palpitations GI: Negative for abdominal discomfort, blood in stools or black stools and change in bowel habits : Negative for dysuria, frequency and incontinence MUSCULOSKELETAL: Negative for joint pain or swelling, back pain, and muscle pain. SKIN: Negative for lesions, rash, and itching. HEMATOLOGY/LYMPHOLOGY Negative for prolonged bleeding, bruising easily, and swollen nodes. ENDOCRINE: Negative for cold or heat intolerance, polyuria, polydipsia and goiter. NEURO: negative The remainder of the review of systems is noncontributory. Objective: Patient presents to clinic ambulating in [facility] Constitutional: Pt is a well developed 61 year old female who is alert, oriented, cooperative and in no apparent distress. Eyes: Following during examination. No redness or drainage. Respiratory: RR normal and nonlabored. Even breathing. No evidence of distress. Psychology: Patient is engaged during conversation. Normal affect and mood. Does not appear depressed or anxious. Vasc: DP and PT pulses are palpable bilateral. CFT is less than 5 seconds bilateral. Skin temperature is warm to warm proximal to distal bilateral. There is mild edema or varicosities noted. Hair growth present. Neuro: Protective sensation is intact to the foot and toes when tested with the 5.07 SWM bilateral.Vibratory sensation is intact at the hallux bilateral. No Significant neurological defecits. Derm: Inspection and palpation performed. Nails 1- 5 b/l are normal in length and thickness. Skin is of normal turgor and texture. Hyperkeratosis noted to b/l 1st metatarsal. NOno ulcerations, scars, verruca or other lesions noted. Ortho: Ankle joint DF is full with the knee extended and full with knee flexed. No pain or crepitusnoted. STJ, MTJ ROM are full and free of pain or crepitus. Muscle strength is 5/5 for dorsiflexors,plantarflexors, inverters, everters. Digital deformities include hammertoes of b/l feet. Hallux valgus of b/l feet. Pain present to left midfoot at site of 4th metatarsal shaft xrays reviewed. 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 Mild arthritis of left midfoot. 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 Patient was seen and evaluated. 2. Patient was instructed on the continued importance of diabetic foot care along with proper diet and keeping their blood sugar under control to prevent complications. Instructions given both oral and written. 3. Discussed pain in left foot. Could be component of midfoot arthritis but most of her pain is located in the 4th metatarsal and she does have confirmed nonunion. I suspect this is recent within thepast 1-2 years. [address]ed placing her in boot but she is not able to take time off her foot. Will try powerstep inserts and check vitamin d. I do not feel the insert will result in healing butit is possible it will provide support and help to relieve pain. If pain fails to resolve, could consider boot or orif with revision of nonunion. She is not interested in surgery. 4. Callus present to b/l feet. Likely caused by bunion/hammertoes. Callus reduced with dremmel. Diabetic shoes were ordered and are deemed necessary in patient with diabetes and deformity. 5. Will check vitamin d 6. F/u in 6 months or sooner if problems arise. Comfort Muniz DPM * Kiara Do LPN - 12/30/2021 9:55 AM EDT Patient presents with: Left Foot - Pain New Patient: Left foot pain AMB ROOMING INTAKE FLOWSHEET DATA Pain Pain Level: 10 Pain Location: Foot-Left Description: Stabbing, Sharp Duration Amount of Time: 9 Duration Units: Months Frequency: Continuous Intervention/Comfort measure: Medication documented in this [facility]Ge[facility]07-[facility]-2022 Instructions* Patient Instructions* Sayda Carr APRN.CNP - 12/24/2021 2:50 PM EDT 1. Continue to watch for symptoms. 2. Please let us know if it contniues. 3. Schedule echo. 4. Get the stress test as planned. documented in this encounterGe[facility]07-01-2022 History of Present illness Narrative* Sayda Carr APRN.CNP - 12/24/2021 2:15 PM EDT This is a 61 year old female who presents today with: Patient presents with: Acute Visit: discolored finger tips HISTORY OF PRESENT ILLNESS: Keyla Engle is a 61 year old female. Patient presents with: Acute Visit: discolored finger tips Pt presents today with complaint of discolored fingertips. Refers that she was walking down a hallway in the hospital earlier today (her daughter was being admitted). Refers that she was having a hard time keeping up. Refers they were moving rather quickly. She looked down and noticed that her fingers were [place]. Refers that she was a little out of breath from trying to walk fast to keep up with the nurse/daughter going down the gomes. Denies any CP/palpitations. Refers bilateral hands up to the DIP. Refers her hands were cold. Nonsmoker. No hx of asthma. Does have hx of RA. Thinks that she also had rheumatic fever as child. PAST MEDICAL HISTORY: PAST MEDICAL HISTORY Diagnosis Date Anxiety disorder Chronic back pain Dr. Burks-pain management Depressive disorder, not elsewhere classified Essential hypertension, benign Fibromyalgia Glaucoma IBS (irritable bowel syndrome) Migraine, unspecified, without mention of intractable migraine without mention of status migrainosus Pure hypercholesterolemia Rheumatoid arthritis (HCC) Snoring PAST SURGICAL HISTORY Procedure Laterality Date APPENDECTOMY 12/18/2014 Dr. Blakely ARTHRP KNE CONDYLE&PLATU MEDIAL&LAT COMPARTMENTS 04/22/2014 right COLONOSCOPY FLX DX W/COLLJ SPEC WHEN PFRMD 10/01/12 suboptimal - poor prep EGD ESOPHAGOGASTRODUODENOSCOPY TRANSORAL DIAGNOSTIC 07/30/14 EGD LAPAROSCOPY SURG CHOLECYSTECTOMY 12/31/1993 PAST SURGICAL HISTORY OF 95 knee, right arthroscopy TUBAL LIGATION HX 08/11/97 ALLERGIES Jessica [Fexofenadine Hcl], Augmentin [Amoxicillin-Pot Clavulanate], Bentyl [Dicyclomine Hcl], Biaxin [Clarithromycin], Ceclor [Cefaclor], Celebrex [Celecoxib], Colestipol, Compazine [Prochlorperazine Edisylate], Doxepin, Fentanyl, Humira [Adalimumab], Levaquin [Levofloxacin], Plaquenil [H ydroxychloroquine Sulfate], Seldane, Septra [Sulfamethoxazole-Trimethoprim], Sulfa (Sulfonamide Antibiotics), Vibramycin [Doxycycline Calcium], and Vicodin [Hydrocodone-Acetaminophen] MEDICATIONS Current Outpatient Medications Medication Sig lisinopril (ZESTRIL, PRINIVIL) 10 mg tablet Take 1 tablet by mouth once daily. promethazine (PHENERGAN) 25 mg suppository 1 Suppository by RECTAL route every 6 hours as needed. atorvastatin (LIPITOR) 10 mg tablet Take 1 tablet by mouth once daily. metFORMIN ER (GLUCOPHAGE XR) 500 mg 24 hr tablet Take 1 tablet by mouth daily with breakfast. busPIRone HCl 30 mg tablet Take 1 tablet by mouth twice daily. SUMAtriptan (IMITREX) 50 mg tablet Take 1 tablet by mouth as needed. hyoscyamine sublingual (LEVSIN/SL) 0.125 mg Dissolve 1 tablet under the tongue every 4 hours as needed. citalopram (CELEXA) 40 mg tablet Take 1 tablet by mouth once daily. upadacitinib (RINVOQ ORAL) Take 15 mg by mouth. naproxen (NAPROSYN) 500 mg tablet Take 500 mg by mouth twice daily with meals. omeprazole (PRILOSEC) 40 mg capsule Take 40 mg by mouth once daily. amitriptyline (ELAVIL) 10 mg tablet Take 1 tablet by mouth daily at bedtime. gabapentin (NEURONTIN) 300 mg capsule Take 1 capsule by mouth four times daily. predniSONE (DELTASONE) 10 mg tablet Take 1 tablet by mouth as needed for Pain. promethazine (PHENERGAN) 25 mg tablet Take 1 tablet by mouth every 6 hours as needed. cyclobenzaprine (FLEXERIL) 10 mg tablet Take 10 mg by mouth three times daily as needed. Cetirizine (ZYRTEC) 10 mg cap Take by mouth. CALCIUM POLYCARBOPHIL (FIBER LAXATIVE ORAL) Take by mouth. multivitamin tablet Take 1 tablet by mouth once daily. latanoprost (XALATAN) 0.005 % ophthalmic solution 1 Drop daily at bedtime. docusate sodium (COLACE) 100 mg capsule Take 100 mg by mouth twice daily. meloxicam (MOBIC) 7.5 mg tablet Take 7.5 mg by mouth once daily. (Patient not taking: Reported on 09/17/2021 ) No current facility-administered medications for this visit. FAMILY HISTORY Problem Relation Age of Onset Diabetes Mother Hypertension Mother Heart Attack Mother Diabetes Father Hypertension Father Heart Attack Father COPD Sister other (sjorgens) Sister affects vision other (Other) Sister lupus Bipolar disorder Daughter Diabetes Maternal Grandmother Social History Tobacco Use Smoking status: Never Smoker Smokeless tobacco: Never Used Vaping Use Vaping Use: Never used Substance Use Topics Alcohol use: No Drug use: No EXAM: BP 134/78 Pulse 104 Resp 18 SpO2 98% PHYSICAL EXAM: General Appearance: Well appearing, alert, in no acute distress, well-hydrated, well nourished. Skin: Skin color, texture, turgor normal, no suspicious rashes or lesions. Head: Normocephalic, no masses, lesions, tenderness or abnormalities. Eyes: Anicteric sclera. Extraocular movements are intact. . Lungs: Lungs clear to auscultation. No wheezing, rhonchi, rales.. Heart: RRR without murmur, gallop, or rubs. No ectopy. Extremities: No deformities, edema, skin discoloration, clubbing or cyanosis. Good capillary refill. +2 radial pulses. Neurologic: Gait normal w/ walker.Sensation grossly intact.. ASSESSMENT/PLAN: 1. Discoloration of skin of finger - ICD9: 709.00, ICD10: L81.9 (primary diagnosis) Walked around office -- oxygenation did not drop below 96% on RA. Finger warm w/ good cap refill. Question possible raynauds. She is encouraged to continue to monitor and let us know if it continues to happen. She is encouraged to get stress test as previously ordered (schedule at [facility]). Recently had a CBC, which was normal. - ECHO - PERFLUTREN LIPID MICROSPHERES 1.1 MG/ML INJECTION IN NS 10 ML - SODIUM CHLORIDE 0.9 % (FLUSH) INJECTION SYRINGE 2. SOB (shortness of breath) - ICD9: 786.05, ICD10: R06.02 As above. - ECHO - PERFLUTREN LIPID MICROSPHERES 1.1 MG/ML INJECTION IN NS 10 ML - SODIUM CHLORIDE 0.9 % (FLUSH) INJECTION SYRINGE Discussed treatment plan and patient voices understanding. Patient's questions answered appropriately. Medications and potential side effects were discussed and patient voices understanding. Return to the office as scheduled or as needed for worsening/no improvement. Sayda Carr APRN.EXCELSIOR MACHINE OPERATOR The patient indicates understanding of these issues and agrees with the plan. * Sharon Rivera Ma - 12/24/2021 2:00 PM EDT Patient scheduled for same day Sharon Rivera Ma documented in this encounterGe[facility]07-01-2022 Miscellaneous Notes* Telephone Encounter - Sharon Rivrea Ma - 12/24/2021 1:25 PM EDT Patient scheduled Sharon Rivera Ma * Telephone Encounter - Mikayla Strange MD - 12/24/2021 1:15 PM EDT Should not be related. If still doing it, needs seen * Telephone Encounter - Adeline Hensley RN - 12/24/2021 1:00 PM EDT Pt called in and reports provider had started her on Lisinopril for her BP. She is now on Hydroxyzine for withdrawal from marijuana. States she had brought her daughter to the hospital and was tryingto keep up with them I the hallway and was having trouble and noticed her fingers looked norwood. She states it looks lik she tried to change an ink cartridge and it got on her fingertips up to the first digit. She also reports that her fingers are cold and she has never had an issue with that before.When she got home took her BP it was 147/85 and HR 102. Denies chest pain, SOB, or wheezing. Pt did not know if medications could be reacting with one another. Please call and advise. documented in this encounterGe[facility]06-01-2022 Miscellaneous Notes* Telephone Encounter - Adeline Hensley RN - 11/24/2021 10:49 AM EDT First order was sent to [facility], and Pt reports that she needs it now, today if possible. Patient has been identified by name and date of : Yes Patient phones for refill(s): Pending Prescriptions Disp Refills PROMETHAZINE 25 MG RECTAL SUPPOSITORY 24 Suppository 6 Si Suppository by RECTAL route every 6 hours as needed. DANETTE: No Date of last office visit in primary care: 11/17/21 Future visit: 03/22/22 Last 2 Encounter Wt Readings: Date: Wt: 11/17/2021 117.9 kg (260 lb) 09/17/2021 122.6 kg (270 lb 3.2 oz) Previous labs/tests for medication: Blood Pressure: BUN (mg/dL) Date Value 04/07/2021 15 Sodium (mmol/L) Date Value 04/07/2021 139 Last 1 Encounter BP Readings: Date: BP: 11/17/2021 162/80 Liver Function: ALT (U/L) Date Value 05/14/2019 20 AST (U/L) Date Value 05/14/2019 22 Please advise. Thank you. Adeline Hensley RN documented in this encounterGe[facility]05-27-2022 Miscellaneous Notes* Telephone Encounter - Sharon Rivera Ma - 11/19/2021 9:02 AM EDT PA completed through [facility] and approved Left vm for patient on confidential vm Sharon Rivera Ma * Telephone Encounter - Lara Brown RN - 11/18/2021 3:02 PM EDT Prior Authorization Documentation Prior authorization requested for the following medication: Medication: Promethazine 25 mg suppository Provider: Dr. Strange [employer] Name: [place] Phone number: Patient ID number: [id number] Pharmacy Name:[facility] Telephone number: [phone] Lara Brown RN documented in this encounterGe[facility]05-25-2022 History of Present illness Narrative* Mikayla Strange MD - 11/17/2021 3:25 PM EDT Patient presents with: Nausea: with vomiting asking to have order for phen a doz suppository to help with this HPI: Patient presents today for office visit for acute visit. Has chronic recurrent nausea or vomiting. Has been going on for years. It predates the use of her medical marijuana. She has seen gi for same has been there for 40 years. . Has had egd. No further issues with choking or swallowing. Did not get the esophagogram. No current bowel changes or bloody or black stools. She basically is here today to request having an ongoing phenergan script. MEDICATIONS: Current Outpatient Medications Medication Sig hyoscyamine sublingual (LEVSIN/SL) 0.125 mg Dissolve 1 tablet under the tongue every 4 hours as needed. atorvastatin (LIPITOR) 10 mg tablet Take 1 tablet by mouth once daily. citalopram (CELEXA) 40 mg tablet Take 1 tablet by mouth once daily. metFORMIN ER (GLUCOPHAGE XR) 500 mg 24 hr tablet Take 1 tablet by mouth daily with breakfast. SUMAtriptan (IMITREX) 50 mg tablet Take 1 tablet by mouth as needed. busPIRone HCl 30 mg tablet Take 1 tablet by mouth twice daily. upadacitinib (RINVOQ ORAL) Take 15 mg by mouth. naproxen (NAPROSYN) 500 mg tablet Take 500 mg by mouth twice daily with meals. omeprazole (PRILOSEC) 40 mg capsule Take 40 mg by mouth once daily. amitriptyline (ELAVIL) 10 mg tablet Take 1 tablet by mouth daily at bedtime. gabapentin (NEURONTIN) 300 mg capsule Take 1 capsule by mouth four times daily. predniSONE (DELTASONE) 10 mg tablet Take 1 tablet by mouth as needed for Pain. promethazine (PHENERGAN) 25 mg tablet Take 1 tablet by mouth every 6 hours as needed. meloxicam (MOBIC) 7.5 mg tablet Take 7.5 mg by mouth once daily. (Patient not taking: Reported on 09/17/2021 ) cyclobenzaprine (FLEXERIL) 10 mg tablet Take 10 mg by mouth three times daily as needed. Cetirizine (ZYRTEC) 10 mg cap Take by mouth. CALCIUM POLYCARBOPHIL (FIBER LAXATIVE ORAL) Take by mouth. multivitamin tablet Take 1 tablet by mouth once daily. latanoprost (XALATAN) 0.005 % ophthalmic solution 1 Drop daily at bedtime. docusate sodium (COLACE) 100 mg capsule Take 100 mg by mouth twice daily. No current facility-administered medications for this visit. ALLERGIES: ALLERGIES Allergen Reactions Jessica [Fexofenadi* Intolerance Augmentin [Amoxicil* Intolerance Bentyl [Dicyclomine* GI Upset Biaxin [Clarithromy* Intolerance Ceclor [Cefaclor] Intolerance Celebrex [Celecoxib] Intolerance Colestipol Other: See Comments shaky/headaches/increased nausea Compazine [Prochlor* Intolerance Doxepin Intolerance Fentanyl Intolerance Humira [Adalimumab] Intolerance Levaquin [Levofloxa* Intolerance Plaquenil [Hydroxyc* Intolerance Seldane Intolerance Septra [Sulfamethox* Intolerance Sulfa (Sulfonamide * Intolerance Vibramycin [Doxycyc* Intolerance Vicodin [Hydrocodon* Intolerance PAST MEDICAL HISTORY Diagnosis Date Anxiety disorder Chronic back pain Dr. Burks-pain management Depressive disorder, not elsewhere classified Essential hypertension, benign Fibromyalgia Glaucoma IBS (irritable bowel syndrome) Migraine, unspecified, without mention of intractable migraine without mention of status migrainosus Pure hypercholesterolemia Rheumatoid arthritis (HCC) Snoring PAST SURGICAL HISTORY Procedure Laterality Date APPENDECTOMY 12/18/2014 Dr. Blakely ARTHRP KNE CONDYLE&PLATU MEDIAL&LAT COMPARTMENTS 04/22/2014 right COLONOSCOPY FLX DX W/COLLJ SPEC WHEN PFRMD 10/01/12 suboptimal - poor prep EGD ESOPHAGOGASTRODUODENOSCOPY TRANSORAL DIAGNOSTIC 07/30/14 EGD LAPAROSCOPY SURG CHOLECYSTECTOMY 12/31/1993 PAST SURGICAL HISTORY OF 89 knee, right arthroscopy TUBAL LIGATION HX 08/11/97 FAMILY HISTORY Problem Relation Age of Onset Diabetes Mother Hypertension Mother Heart Attack Mother Diabetes Father Hypertension Father Heart Attack Father COPD Sister other (sjorgens) Sister affects vision other (Other) Sister lupus Bipolar disorder Daughter Diabetes Maternal Grandmother Social History Tobacco Use Smoking status: Never Smoker Smokeless tobacco: Never Used Vaping Use Vaping Use: Never used Substance Use Topics Alcohol use: No Drug use: No Reviewed current medications, allergies, past medical history, surgical history, family history andsocial history today. REVIEW OF SYSTEMS All other reviewed and negative other than HPI. HEALTH MAINTENANCE: Reviewed health maintenance issues today and recommended the following in detail. DEPRESSION SCREENING Never done HIV SCREENING Never done DTAP,TDAP,TD(1 - Tdap) Never done SHINGRIX VACCINE(2 of 2) due on 07/08/2020 VITALS: BP 162/80 Pulse 80 Wt 117.9 kg (260 lb) BMI 42.29 kg/m Last 4 Encounter Wt Readings: Date: Wt: 09/17/2021 122.6 kg (270 lb 3.2 oz) 04/12/2021 121.6 kg (268 lb) 04/08/2021 121.1 kg (267 lb) 03/04/2021 124.3 kg (274 lb) PHYSICAL EXAMINATION: General appearance: Well appearing, alert, in no acute distress, well-hydrated, well nourished. Skin: Skin color, texture, turgor normal, no suspicious rashes or lesions Head: Normocephalic, no masses, lesions, tenderness or abnormalities Lungs: Lungs clear to auscultation. No wheezing, rhonchi, rales Heart: RRR without murmur, gallop, or rubs. No ectopy Abdomen: Normal abdominal exam, Abdomen soft, non-tender. Bowel sounds normal. No masses, organomegaly Extremities: No deformities, edema, skin discoloration, clubbing or cyanosis. Good capillary refill. Musculoskeletal: No joint swelling, deformity, or tenderness Peripheral pulses: Normal Neuro: Negative. ASSESSMENT/PLAN: 1. Nausea - ICD9: 787.02, ICD10: R11.0 (primary diagnosis) - refilled meds. - PROMETHAZINE 25 MG RECTAL SUPPOSITORY 2. Type 2 diabetes mellitus without complication, without long-term current use of insulin (HCC) - ICD9: 250.00, ICD10: E11.9 Controlled. - Continue current medications - METFORMIN ER 500 MG TABLET,EXTENDED RELEASE 24 HR 3. Panic disorder - ICD9: 300.01, ICD10: F41.0 - BUSPIRONE 30 MG TABLET 4. Migraine without aura, intractable, without status migrainosus - ICD9: 346.11, ICD10: G43.019 - SUMATRIPTAN 50 MG TABLET - PROMETHAZINE 25 MG RECTAL SUPPOSITORY 5. Other hyperlipidemia - ICD9: 272.4, ICD10: E78.49 6. Elevated BP without diagnosis of hypertension - ICD9: 796.2, ICD10: R03.0 - Encouraged dietary sodium restriction/DASH diet - Recommended regular aerobic exercise. - Follow up in 1 month for BP recheck. - Goal of BP <130/80 Mikayla Strange RTO in one month for bp and prn. [facility] of Past illness Narrative* Problem Noted Date Resolved Date Elevated BP without diagnosis of hypertension 01/14/2022 Type 2 diabetes mellitus wit hout complication, without long-term current use of insulin 03/12/2021 01/14/2022 Rheumatoid arthritis of [facility] with negative rheumatoid factor 05/11/2019 01/14/2022 Overview: Has seen Dr. Buck. Cannot tolerate meds Hyperglycemia 05/11/2019 03/12/2021 Overview: Had last hba1c which was stable 04/13 Nausea alone 07/30/2014 07/30/2014 Abdominal pain, epigastric 07/30/201407/30 Chronic back pain 09/17/2021 Overview: Dr. Burks-pain management documented as of this encounter (statuses as of 01/14/2022) [facility] of Past illness Narrative* Problem Noted Date Resolved Date Elevated BP without diagnosis of hypertension 01/14/2022 Type 2 diabetes mellitus wit hout complication, without long-term current use of insulin 03/12/2021 01/14/2022 Rheumatoid arthritis of [facility] with negative rheumatoid factor 05/11/2019 01/14/2022 Overview: Has seen Dr. Buck. Cannot tolerate meds Hyperglycemia 05/11/2019 03/12/2021 Overview: Had last hba1c which was stable 04/13 Nausea alone 07/30/2014 07/30/2014 Abdominal pain, epigastric 07/30/201407/30 Chronic back pain 09/17/2021 Overview: Dr. Burks-pain management documented as of this encounter (statuses as of 02/01/2022) [facility] of Past illness Narrative* Problem Noted Date Resolved Date Elevated BP without diagnosis of hypertension 01/14/2022 Type 2 diabetes mellitus wit hout complication, without long-term current use of insulin 03/12/2021 01/14/2022 Rheumatoid arthritis of [facility] with negative rheumatoid factor 05/11/2019 01/14/2022 Overview: Has seen Dr. Buck. Cannot tolerate meds Hyperglycemia 05/11/2019 03/12/2021 Overview: Had last hba1c which was stable 04/13 Nausea alone 07/30/2014 07/30/2014 Abdominal pain, epigastric 07/30/201407/30 Chronic back pain 09/17/2021 Overview: Dr. Burks-pain management documented as of this encounter (statuses as of 03/03/2022) [facility] Past illness Narrative* Problem Noted Date Resolved Date Elevated BP without diagnosis of hypertension 01/14/2022 Type 2 diabetes mellitus wit hout complication, without long-term current use of insulin 03/12/2021 01/14/2022 Rheumatoid arthritis of [facility] with negative rheumatoid factor 05/11/2019 01/14/2022 Overview: Has seen Dr. Buck. Cannot tolerate meds Hyperglycemia 05/11/2019 03/12/2021 Overview: Had last hba1c which was stable 04/13 Nausea alone 07/30/2014 07/30/2014 Abdominal pain, epigastric 07/30/201407/30 Chronic back pain 09/17/2021 Overview: Dr. Burks-pain management documented as of this encounter (statuses as of 03/24/2022) [facility] Past illness Narrative* Problem Noted Date Resolved Date Elevated BP without diagnosis of hypertension 01/14/2022 Type 2 diabetes mellitus wit hout complication, without long-term current use of insulin 03/12/2021 01/14/2022 Rheumatoid arthritis of [facility] with negative rheumatoid factor 05/11/2019 01/14/2022 Overview: Has seen Dr. Buck. Cannot tolerate meds Hyperglycemia 05/11/2019 03/12/2021 Overview: Had last hba1c which was stable 04/13 Nausea alone 07/30/2014 07/30/2014 Abdominal pain, epigastric 07/30/201407/30 Chronic back pain 09/17/2021 Overview: Dr. Burks-pain management documented as of this encounter (statuses as of 04/05/2022) [facility] Past illness Narrative* Problem Noted Date Resolved Date Elevated BP without diagnosis of hypertension 01/14/2022 Type 2 diabetes mellitus wit hout complication, without long-term current use of insulin 03/12/2021 01/14/2022 Rheumatoid arthritis of [facility] with negative rheumatoid factor 05/11/2019 01/14/2022 Overview: Has seen Dr. Buck. Cannot tolerate meds Hyperglycemia 05/11/2019 03/12/2021 Overview: Had last hba1c which was stable 04/13 Nausea alone 07/30/2014 07/30/2014 Abdominal pain, epigastric 07/30/201407/30 Chronic back pain 09/17/2021 Overview: Dr. Burks-pain management documented as of this encounter (statuses as of 04/12/2022) [facility] illness Narrative* Problem Noted Date Resolved Date Elevated BP without diagnosis of hypertension 01/14/2022 Type 2 diabetes mellitus wit hout complication, without long-term current use of insulin 03/12/2021 01/14/2022 Rheumatoid arthritis of [facility] with negative rheumatoid factor 05/11/2019 01/14/2022 Overview: Has seen Dr. Buck. Cannot tolerate meds Hyperglycemia 05/11/2019 03/12/2021 Overview: Had last hba1c which was stable 04/13 Nausea alone 07/30/2014 07/30/2014 Abdominal pain, epigastric 07/30/201407/30 Chronic back pain 09/17/2021 Overview: Dr. Burks-pain management documented as of this encounter (statuses as of 04/14/2022) [facility] Narrative* Problem Noted Date Resolved Date Elevated BP without diagnosis of hypertension 01/14/2022 Type 2 diabetes mellitus wit hout complication, without long-term current use of insulin 03/12/2021 01/14/2022 Rheumatoid arthritis of [facility] with negative rheumatoid factor 05/11/2019 01/14/2022 Overview: Has seen Dr. Buck. Cannot tolerate meds Hyperglycemia 05/11/2019 03/12/2021 Overview: Had last hba1c which was stable 04/13 Nausea alone 07/30/2014 07/30/2014 Abdominal pain, epigastric 07/30/201407/30 Chronic back pain 09/17/2021 Overview: Dr. Burks-pain management documented as of this encounter (statuses as of 04/15/2022) [facility] Narrative* Problem Noted Date Resolved Date Elevated BP without diagnosis of hypertension 01/14/2022 Type 2 diabetes mellitus wit hout complication, without long-term current use of insulin 03/12/2021 01/14/2022 Rheumatoid arthritis of [facility] with negative rheumatoid factor 05/11/2019 01/14/2022 Overview: Has seen Dr. Buck. Cannot tolerate meds Hyperglycemia 05/11/2019 03/12/2021 Overview: Had last hba1c which was stable 04/13 Nausea alone 07/30/2014 07/30/2014 Abdominal pain, epigastric 07/30/201407/30 Chronic back pain 09/17/2021 Overview: Dr. Burks-pain management documented as of this encounter (statuses as of 04/19/2022) [facility] Narrative* Problem Noted Date Resolved Date Elevated BP without diagnosis of hypertension 01/14/2022 Type 2 diabetes mellitus wit hout complication, without long-term current use of insulin 03/12/2021 01/14/2022 Rheumatoid arthritis of [facility] with negative rheumatoid factor 05/11/2019 01/14/2022 Overview: Has seen Dr. Buck. Cannot tolerate meds Hyperglycemia 05/11/2019 03/12/2021 Overview: Had last hba1c which was stable 04/13 Nausea alone 07/30/2014 07/30/2014 Abdominal pain, epigastric 07/30/201407/30 Chronic back pain 09/17/2021 Overview: Dr. Burks-pain management documented as of this encounter (statuses as of 04/20/2022) [facility] Narrative* Problem Noted Date Resolved Date Elevated BP without diagnosis of hypertension 01/14/2022 Type 2 diabetes mellitus wit hout complication, without long-term current use of insulin 03/12/2021 01/14/2022 Rheumatoid arthritis of [facility] with negative rheumatoid factor 05/11/2019 01/14/2022 Overview: Has seen Dr. Buck. Cannot tolerate meds Hyperglycemia 05/11/2019 03/12/2021 Overview: Had last hba1c which was stable 04/13 Nausea alone 07/30/2014 07/30/2014 Abdominal pain, epigastric 07/30/201407/30 Chronic back pain 09/17/2021 Overview: Dr. Burks-pain management documented as of this encounter (statuses as of 05/20/2022) [facility] Narrative* Problem Noted Date Resolved Date Elevated BP without diagnosis of hypertension 01/14/2022 Type 2 diabetes mellitus wit hout complication, without long-term current use of insulin 03/12/2021 01/14/2022 Rheumatoid arthritis of [facility] with negative rheumatoid factor 05/11/2019 01/14/2022 Overview: Has seen Dr. Buck. Cannot tolerate meds Hyperglycemia 05/11/2019 03/12/2021 Overview: Had last hba1c which was stable 04/13 Nausea alone 07/30/2014 07/30/2014 Abdominal pain, epigastric 07/30/201407/30 Chronic back pain 09/17/2021 Overview: Dr. Burks-pain management documented as of this encounter (statuses as of 06/30/2022) [facility] N[facility]* Problem Noted Date Resolved Date Elevated BP without diagnosis of hypertension 01/14/2022 Type 2 diabetes mellitus wit hout complication, without long-term current use of insulin 03/12/2021 01/14/2022 Rheumatoid arthritis of [facility] with negative rheumatoid factor 05/11/2019 01/14/2022 Overview: Has seen Dr. Buck. Cannot tolerate meds Hyperglycemia 05/11/2019 03/12/2021 Overview: Had last hba1c which was stable 04/13 Nausea alone 07/30/2014 07/30/2014 Abdominal pain, epigastric 07/30/201407/30 Chronic back pain 09/17/2021 Overview: Dr. Burks-pain management documented as of this encounter (statuses as of 07/04/2022) [facility] Narrative* Problem Noted Date Resolved Date Elevated BP without diagnosis of hypertension 01/14/2022 Type 2 diabetes mellitus wit hout complication, without long-term current use of insulin 03/12/2021 01/14/2022 Rheumatoid arthritis of [facility] with negative rheumatoid factor 05/11/2019 01/14/2022 Overview: Has seen Dr. Buck. Cannot tolerate meds Hyperglycemia 05/11/2019 03/12/2021 Overview: Had last hba1c which was stable 04/13 Nausea alone 07/30/2014 07/30/2014 Abdominal pain, epigastric 07/30/201407/30 Chronic back pain 09/17/2021 Overview: Dr. Burks-pain management documented as of this encounter (statuses as of 07/28/2022) [facility] Narrative* Problem Noted Date Resolved Date Elevated BP without diagnosis of hypertension 01/14/2022 Type 2 diabetes mellitus wit hout complication, without long-term current use of insulin 03/12/2021 01/14/2022 Rheumatoid arthritis of [facility] with negative rheumatoid factor 05/11/2019 01/14/2022 Overview: Has seen Dr. Buck. Cannot tolerate meds Hyperglycemia 05/11/2019 03/12/2021 Overview: Had last hba1c which was stable 04/13 Nausea alone 07/30/2014 07/30/2014 Abdominal pain, epigastric 07/30/201407/30 Chronic back pain 09/17/2021 Overview: Dr. Burks-pain management documented as of this encounter (statuses as of 08/08/2022) [facility] Narrative* Problem Noted Date Resolved Date Elevated BP without diagnosis of hypertension 01/14/2022 Type 2 diabetes mellitus wit hout complication, without long-term current use of insulin 03/12/2021 01/14/2022 Rheumatoid arthritis of [facility] with negative rheumatoid factor 05/11/2019 01/14/2022 Overview: Has seen Dr. Buck. Cannot tolerate meds Hyperglycemia 05/11/2019 03/12/2021 Overview: Had last hba1c which was stable 04/13 Nausea alone 07/30/2014 07/30/2014 Abdominal pain, epigastric 07/30/201407/30 Chronic back pain 09/17/2021 Overview: Dr. Burks-pain management documented as of this encounter (statuses as of 08/16/2022) [facility] Narrative* Problem Noted Date Resolved Date Elevated BP without diagnosis of hypertension 01/14/2022 Type 2 diabetes mellitus wit hout complication, without long-term current use of insulin 03/12/2021 01/14/2022 Rheumatoid arthritis of [facility] with negative rheumatoid factor 05/11/2019 01/14/2022 Overview: Has seen Dr. Buck. Cannot tolerate meds Hyperglycemia 05/11/2019 03/12/2021 Overview: Had last hba1c which was stable 04/13 Nausea alone 07/30/2014 07/30/2014 Abdominal pain, epigastric 07/30/201407/30 Chronic back pain 09/17/2021 Overview: Dr. Burks-pain management documented as of this encounter (statuses as of 08/17/2022) [facility] Narrative* Problem Noted Date Resolved Date Elevated BP without diagnosis of hypertension 01/14/2022 Type 2 diabetes mellitus wit hout complication, without long-term current use of insulin 03/12/2021 01/14/2022 Rheumatoid arthritis of [facility] with negative rheumatoid factor 05/11/2019 01/14/2022 Overview: Has seen Dr. Buck. Cannot tolerate meds Hyperglycemia 05/11/2019 03/12/2021 Overview: Had last hba1c which was stable 04/13 Nausea alone 07/30/2014 07/30/2014 Abdominal pain, epigastric 07/30/201407/30 Chronic back pain 09/17/2021 Overview: Dr. Burks-pain management documented as of this encounter (statuses as of 08/19/2022) [facility] Narrative* Problem Noted Date Resolved Date Elevated BP without diagnosis of hypertension 01/14/2022 Type 2 diabetes mellitus wit hout complication, without long-term current use of insulin 03/12/2021 01/14/2022 Rheumatoid arthritis of [facility] with negative rheumatoid factor 05/11/2019 01/14/2022 Overview: Has seen Dr. uBck. Cannot tolerate meds Hyperglycemia 05/11/2019 03/12/2021 Overview: Had last hba1c which was stable 04/13 Nausea alone 07/30/2014 07/30/2014 Abdominal pain, epigastric 07/30/201407/30 Chronic back pain 09/17/2021 Overview: Dr. Burks-pain management documented as of this encounter (statuses as of 08/21/2022) [facility] Narr[facility]* Problem Noted Date Resolved Date Elevated BP without diagnosis of hypertension 01/14/2022 Type 2 diabetes mellitus wit hout complication, without long-term current use of insulin 03/12/2021 01/14/2022 Rheumatoid arthritis of [facility] with negative rheumatoid factor 05/11/2019 01/14/2022 Overview: Has seen Dr. Buck. Cannot tolerate meds Hyperglycemia 05/11/2019 03/12/2021 Overview: Had last hba1c which was stable 04/13 Nausea alone 07/30/2014 07/30/2014 Abdominal pain, epigastric 07/30/201407/30 Chronic back pain 09/17/2021 Overview: Dr. Burks-pain management documented as of this encounter (statuses as of 08/25/2022) [facility] Narrative* Problem Noted Date Resolved Date Elevated BP without diagnosis of hypertension 01/14/2022 Type 2 diabetes mellitus wit hout complication, without long-term current use of insulin 03/12/2021 01/14/2022 Rheumatoid arthritis of [facility] with negative rheumatoid factor 05/11/2019 01/14/2022 Overview: Has seen Dr. Buck. Cannot tolerate meds Hyperglycemia 05/11/2019 03/12/2021 Overview: Had last hba1c which was stable 04/13 Nausea alone 07/30/2014 07/30/2014 Abdominal pain, epigastric 07/30/201407/30 Chronic back pain 09/17/2021 Overview: Dr. Burks-pain management documented as of this encounter (statuses as of 09/02/2022) [facility] Narrative* Problem Noted Date Resolved Date Elevated BP without diagnosis of hypertension 01/14/2022 Type 2 diabetes mellitus wit hout complication, without long-term current use of insulin 03/12/2021 01/14/2022 Rheumatoid arthritis of [facility] with negative rheumatoid factor 05/11/2019 01/14/2022 Overview: Has seen Dr. Buck. Cannot tolerate meds Hyperglycemia 05/11/2019 03/12/2021 Overview: Had last hba1c which was stable 04/13 Nausea alone 07/30/2014 07/30/2014 Abdominal pain, epigastric 07/30/201407/30 Chronic back pain 09/17/2021 Overview: Dr. Burks-pain management documented as of this encounter (statuses as of 10/08/2022) [facility] Narrative* Problem Noted Date Resolved Date Elevated BP without diagnosis of hypertension 01/14/2022 Type 2 diabetes mellitus wit hout complication, without long-term current use of insulin 03/12/2021 01/14/2022 Rheumatoid arthritis of [facility] with negative rheumatoid factor 05/11/2019 01/14/2022 Overview: Has seen Dr. Buck. Cannot tolerate meds Hyperglycemia 05/11/2019 03/12/2021 Overview: Had last hba1c which was stable 04/13 Nausea alone 07/30/2014 07/30/2014 Abdominal pain, epigastric 07/30/201407/30 Chronic back pain 09/17/2021 Overview: Dr. Burks-pain management documented as of this encounter (statuses as of 10/08/2022) [facility] Narrative* Problem Noted Date Resolved Date Elevated BP without diagnosis of hypertension 01/14/2022 Type 2 diabetes mellitus wit hout complication, without long-term current use of insulin 03/12/2021 01/14/2022 Rheumatoid arthritis of [facility] with negative rheumatoid factor 05/11/2019 01/14/2022 Overview: Has seen Dr. Buck. Cannot tolerate meds Hyperglycemia 05/11/2019 03/12/2021 Overview: Had last hba1c which was stable 04/13 Nausea alone 07/30/2014 07/30/2014 Abdominal pain, epigastric 07/30/201407/30 Chronic back pain 09/17/2021 Overview: Dr. Burks-pain management documented as of this encounter (statuses as of 10/19/2022) [facility]* Problem Noted Date Resolved Date Elevated BP without diagnosis of hypertension 01/14/2022 Hyperglycemia 05/11/2019 03/12/2021 Overview: Had last hba1c which was stable 04/13 Nausea alone 07/30/2014 07/30/2014 Abdominal pain, epigastric 07/30/201407/30 Chronic back pain 09/17/2021 Overview: Dr. Burks-pain management documented as of this encounter (statuses as of 10/25/2022) [facility] Narrative* Problem Noted Date Resolved Date Elevated BP without diagnosis of hypertension 01/14/2022 Hyperglycemia 05/11/2019 03/12/2021 Overview: Had last hba1c which was stable 04/13 Nausea alone 07/30/2014 07/30/2014 Abdominal pain, epigastric 07/30/201407/30 Chronic back pain 09/17/2021 Overview: Dr. Burks-pain management documented as of this encounter (statuses as of 11/03/2022) [facility] Narrative* Problem Noted Date Diagnosed Date Resolved Date Elevated BP without diagnosis of hypertension 11/18/19 22 01/14/2022 Hyperglycemia 05/11/2019 03/12/2021 Overview: Had last hba1c which was stable 04/13 Nausea alone 07/30/2014 07/30/2014 Abdominal pain, epigastric 07/30/2014 0 07/30/2014 Chronic back pain 09/17/2021 Overview: Dr. Burks-pain management documented as of this encounter (statuses as of 01/05/2023) [facility] Narr[facility]* Problem Noted Date Diagnosed Date Resolved Date Elevated BP without diagnosis of hypertension 11/18/19 22 01/14/2022 Hyperglycemia 05/11/2019 03/12/2021 Overview: Had last hba1c which was stable 04/13 Nausea alone 07/30/2014 07/30/2014 Abdominal pain, epigastric 07/30/2014 0 07/30/2014 Chronic back pain 09/17/2021 Overview: Dr. Burks-pain management documented as of this encounter (statuses as of 01/05/2023) [facility]* Problem Noted Date Diagnosed Date Resolved Date Elevated BP without diagnosis of hypertension 11/18/19 22 01/14/2022 Hyperglycemia 05/11/2019 03/12/2021 Overview: Had last hba1c which was stable 04/13 Nausea alone 07/30/2014 07/30/2014 Abdominal pain, epigastric 07/30/2014 0 07/30/2014 Chronic back pain 09/17/2021 Overview: Dr. Burks-pain management documented as of this encounter (statuses as of 04/29/2023) [facility] History of Past illness Narrative* Problem Noted Date Diagnosed Date Resolved Date Elevated BP without diagnosis of hypertension 11/18/19 22 01/14/2022 Hyperglycemia 05/11/2019 03/12/2021 Overview: Had last hba1c which was stable 04/13 Nausea alone 07/30/2014 07/30/2014 Abdominal pain, epigastric 07/30/2014 0 07/30/2014 Chronic back pain 09/17/2021 Overview: Dr. Burks-pain management documented as of this encounter (statuses as of 04/30/2023) [facility] History of Past illness Narrative* Problem Noted Date Diagnosed Date Resolved Date Elevated BP without diagnosis of hypertension 11/18/19 22 01/14/2022 Hyperglycemia 05/11/2019 03/12/2021 Overview: Had last hba1c which was stable 04/13 Nausea alone 07/30/2014 07/30/2014 Abdominal pain, epigastric 07/30/2014 0 07/30/2014 Chronic back pain 09/17/2021 Overview: Dr. Burks-pain management documented as of this encounter (statuses as of 04/30/2023) [facility] History of Past illness Narrative* Problem Noted Date Diagnosed Date Resolved Date Elevated BP without diagnosis of hypertension 11/18/19 22 01/14/2022 Hyperglycemia 05/11/2019 03/12/2021 Overview: Had last hba1c which was stable 04/13 Nausea alone 07/30/2014 07/30/2014 Abdominal pain, epigastric 07/30/2014 0 07/30/2014 Chronic back pain 09/17/2021 Overview: Dr. Burks-pain management documented as of this encounter (statuses as of 05/09/2023) [facility]2022 Miscellaneous Notes* Telephone Encounter - Sharon Rivera Ma - 09/29/2021 11:34 AM EDT Spoke to patient who declined appointment and being seen. Advised she can not come in or go to ER due to being weak/shaky. Advised provider can not determine no of action based on phone call. Aware if not able to come in an be assessed nothing more we can do. Patient still declined appointment. Sharon Rivera Ma * Telephone Encounter - Jade Lopez LPN - 09/29/2021 10:48 AM EDT Attempted to contact patient and all circuits are busy message. * Telephone Encounter - Mikayla Strange MD - 09/29/2021 9:05 AM EDT Agree. She needs seen * Telephone Encounter - Makenna Wisdom RN - 09/29/2021 8:15 AM EDT Patient call in for vomiting and diarrhea since Monday. Patient states that she has been sipping onwater and gatorade. Patient reports that she is urinated very little this morning. Patient reports that she is dizzy when standing and feels weak. Patient reports that she has a dry mouth. Patient states that she has been taking old medication that was in her refridgerator that Manju Razo prescr ibed for her back in 2014 and that seems to help with the vomiting. Patient is asking if provider can send in a prescription to help with her nausea and vomiting? Nurse Triage assessment completed with protocol recommending for disposition of Go to ED now/PCP triage. Advised patient she should go to ED to be evaluated for dehydration. Patient was also advised that she would have to set up an appointment with provider so that provider can assess her. Patient does not really want to go to ED nor does she want to make appointment. Patient states that if she has to she will come in to see provider. Care advice reviewed with patient, patient stated understanding. Patient advised to contact office or seek evaluation in urgent care or ER if symptoms persist or gets worse. Reason for Disposition [1] SEVERE vomiting (e.g., 6 or more times/day) AND [2] present > 8 hours (Exception: patient sounds well, is drinking liquids, does not sound dehydrated, and vomiting has lasted less than 24 hours) Answer Assessment - Initial Assessment Questions 1. VOMITING SEVERITY: Patient states that she has vomited 4 times. Patient had an old bottle of phenergan which she used that has helped. 2. ONSET: Since Monday 3. FLUIDS: Drank sip of water and Gatorade and keeping down with medication. 4. ABDOMINAL PAIN: Yes, has had crampy abdominal pain that comes and goes. 5. DIARRHEA: Constantly since Monday 6. CONTACTS: Denies 7. CAUSE: Unsure 8. HYDRATION STATUS: This morning she urinated a tiny little bit, dry mouth, is going hot and cold 9. OTHER SYMPTOMS: Is having chills and gets hot.; dizziness, when she stand up feels like she is going to pass out. Protocols used: [id number] [facility] Miscellaneous Notes* Telephone Encounter - Makenna Wisdom RN - 09/29/2021 8:23 AM EDT Opened in Error [facility] History of Present illness Narrative* Mikayla Strange MD - 09/17/2021 1:51 PM EDT Patient presents with: F/U 6 months HPI: Patient presents today for office visit for Still seeing Dr. Ward and Dr. Buck. She is now doing medical marijuana at Dr. Ward's recommendations. They are considering an implantable pain pump. Still dealing with her sister's . Has issues with her daughter. Still feels meds are helping. Discussed counseling. Does feel she is improving. No shortness of breath. No new edema. No dizziness. No chest pain with exertion. Stomach is doing ok. No recent issues. See previous ov: Has dysphagia. No difference with solids or liquids. No black or black stools. Still on omeprazole. Is on nsaids. No etoh or etoh. Can happen a few times a day. No heartburn. Started four or five months ago. Her left great toe is infected. Had an ingrown toenail. Started one to two weeks ago. No fever Or chills. No red streaks. No chest pain or shortness of breath Has been stressed over sister's . Does see rheum and pain management. MEDICATIONS: Current Outpatient Medications Medication Sig citalopram (CELEXA) 40 mg tablet Take 1 tablet by mouth once daily. citalopram (CELEXA) 40 mg tablet Take 1 tablet by mouth once daily. metFORMIN ER (GLUCOPHAGE XR) 500 mg 24 hr tablet Take 1 tablet by mouth daily with breakfast. atorvastatin (LIPITOR) 10 mg tablet Take 1 tablet by mouth once daily. SUMAtriptan (IMITREX) 50 mg tablet Take 1 tablet by mouth as needed. hyoscyamine sublingual (LEVSIN/SL) 0.125 mg Dissolve 1 tablet under the tongue every 4 hours as needed. busPIRone HCl 30 mg tablet Take 1 tablet by mouth twice daily. upadacitinib (RINVOQ ORAL) Take 15 mg by mouth. naproxen (NAPROSYN) 500 mg tablet Take 500 mg by mouth twice daily with meals. omeprazole (PRILOSEC) 40 mg capsule Take 40 mg by mouth once daily. amitriptyline (ELAVIL) 10 mg tablet Take 1 tablet by mouth daily at bedtime. gabapentin (NEURONTIN) 300 mg capsule Take 1 capsule by mouth four times daily. predniSONE (DELTASONE) 10 mg tablet Take 1 tablet by mouth as needed for Pain. promethazine (PHENERGAN) 25 mg tablet Take 1 tablet by mouth every 6 hours as needed. cyclobenzaprine (FLEXERIL) 10 mg tablet Take 10 mg by mouth three times daily as needed. Cetirizine (ZYRTEC) 10 mg cap Take by mouth. CALCIUM POLYCARBOPHIL (FIBER LAXATIVE ORAL) Take by mouth. multivitamin tablet Take 1 tablet by mouth once daily. latanoprost (XALATAN) 0.005 % ophthalmic solution 1 Drop daily at bedtime. docusate sodium (COLACE) 100 mg capsule Take 100 mg by mouth twice daily. clindamycin (CLEOCIN) 150 mg capsule Take 1 capsule by mouth four times daily. (Patient not taking:Reported on 09/17/2021 ) buprenorphine (BUTRANS) 15 mcg/hour patch Apply 1 Patch as directed one time a week. (Patient not taking: Reported on 09/17/2021) oxyCODONE-acetaminophen (PERCOCET) 7.5-325 mg tablet Take 1 tablet by mouth three times daily. (Patient not taking: Reported on 09/17/2021) meloxicam (MOBIC) 7.5 mg tablet Take 7.5 mg by mouth once daily. (Patient not taking: Reported on 09/17/2021 ) No current facility-administered medications for this visit. ALLERGIES: ALLERGIES Allergen Reactions Jessica [Fexofenadi* Intolerance Augmentin [Amoxicil* Intolerance Bentyl [Dicyclomine* GI Upset Biaxin [Clarithromy* Intolerance Ceclor [Cefaclor] Intolerance Celebrex [Celecoxib] Intolerance Colestipol Other: See Comments shaky/headaches/increased nausea Compazine [Prochlor* Intolerance Doxepin Intolerance Fentanyl Intolerance Humira [Adalimumab] Intolerance Levaquin [Levofloxa* Intolerance Plaquenil [Hydroxyc* Intolerance Seldane Intolerance Septra [Sulfamethox* Intolerance Sulfa (Sulfonamide * Intolerance Vibramycin [Doxycyc* Intolerance Vicodin [Hydrocodon* Intolerance PAST MEDICAL HISTORY Diagnosis Date Anxiety disorder Chronic back pain Dr. Burks-pain management Depressive disorder, not elsewhere classified Essential hypertension, benign Fibromyalgia Glaucoma IBS (irritable bowel syndrome) Migraine, unspecified, without mention of intractable migraine without mention of status migrainosus Pure hypercholesterolemia Rheumatoid arthritis (HCC) Snoring PAST SURGICAL HISTORY Procedure Laterality Date APPENDECTOMY 12/18/2014 Dr. Blakely ARTHRP KNE CONDYLE&PLATU MEDIAL&LAT COMPARTMENTS 04/22/2014 right COLONOSCOPY FLX DX W/COLLJ SPEC WHEN PFRMD 10/01/12 suboptimal - poor prep EGD ESOPHAGOGASTRODUODENOSCOPY TRANSORAL DIAGNOSTIC 07/30/14 EGD LAPAROSCOPY SURG CHOLECYSTECTOMY 12/31/1993 PAST SURGICAL HISTORY OF 89 knee, right arthroscopy TUBAL LIGATION HX 08/11/97 FAMILY HISTORY Problem Relation Age of Onset Diabetes Mother Hypertension Mother Heart Attack Mother Diabetes Father Hypertension Father Heart Attack Father COPD Sister other (sjorgens) Sister affects vision other (Other) Sister lupus Bipolar disorder Daughter Diabetes Maternal Grandmother Social History Tobacco Use Smoking status: Never Smoker Smokeless tobacco: Never Used Vaping Use Vaping Use: Never used Substance Use Topics Alcohol use: No Drug use: No Reviewed current medications, allergies, past medical history, surgical history, family history andsocial history today. REVIEW OF SYSTEMS GI: Negative for change in bowel habit All other reviewed and negative other than HPI. HEALTH MAINTENANCE: Reviewed health maintenance issues today VITALS: BP 138/76 Pulse 92 Resp 18 Wt 122.6 kg (270 lb 3.2 oz) BMI 43.95 kg/m Last 4 Encounter Wt Readings: Date: Wt: 09/17/2021 122.6 kg (270 lb 3.2 oz) 04/12/2021 121.6 kg (268 lb) 04/08/2021 121.1 kg (267 lb) 03/04/2021 124.3 kg (274 lb) PHYSICAL EXAMINATION: General appearance: Well appearing, alert, in no acute distress, well-hydrated, well nourished. Skin: Skin color, texture, turgor normal, no suspicious rashes or lesions Head: Normocephalic, no masses, lesions, tenderness or abnormalities Lungs: Lungs clear to auscultation. No wheezing, rhonchi, rales Heart: RRR without murmur, gallop, or rubs. No ectopy Abdomen: Normal abdominal exam, Abdomen soft, non-tender. Bowel sounds normal. No masses, organomegaly Extremities: No deformities, edema, skin discoloration, clubbing or cyanosis. Good capillary refill. Musculoskeletal: No joint swelling, deformity, or tenderness Peripheral pulses: Normal Neuro: Negative. ASSESSMENT/PLAN: 1. Type 2 diabetes mellitus without complication, without long-term current use of insulin (HCC) - ICD9: 250.00, ICD10: E11.9 (primary diagnosis) - check labs. - HGB A1C - ALBUMIN/CREAT RATIO RND UR 2. Irritable bowel syndrome with constipation - ICD9: 564.1, ICD10: K58.1 - continue meds. - HYOSCYAMINE 0.125 MG SUBLINGUAL TABLET 3. Rheumatoid arthritis of multiple sites with negative rheumatoid factor (HCC) - ICD9: 714.0, ICD10: M06.09 - continue current meds. 4. DDD (degenerative disc disease), lumbar - ICD9: 722.52, ICD10: M51.36 - stable. 5. Other hyperlipidemia - ICD9: 272.4, ICD10: E78.49 - LIPID PANEL BASIC 6. Panic disorder - ICD9: 300.01, ICD10: F41.0 - call if any issues. 7. Migraine without aura, intractable, without status migrainosus - ICD9: 346.11, ICD10: G43.019 - stable Mikayla Strange RTO in six months and prn. Medical Decision Making [facility] History of Past illness Narrative* Problem Noted Date Resolved Date Hyperglycemia 05/11/2019 03/12/2021 Overview: Had last hba1c which was stable 04/13 Nausea alone 07/30/2014 07/30/2014 Abdominal pain, epigastric 07/30/201407/30 Chronic back pain 09/17/2021 Overview: Dr. Burks-pain management documented as of this encounter (statuses as of 09/17/2021) [facility] of Past illness Narrative* Problem Noted Date Resolved Date Hyperglycemia 05/11/2019 03/12/2021 Overview: Had last hba1c which was stable 04/13 Nausea alone 07/30/2014 07/30/2014 Abdominal pain, epigastric 07/30/201407/30 Chronic back pain 09/17/2021 Overview: Dr. Burks-pain management documented as of this encounter (statuses as of 09/29/2021) [facility] of Past illness Narrative* Problem Noted Date Resolved Date Hyperglycemia 05/11/2019 03/12/2021 Overview: Had last hba1c which was stable 04/13 Nausea alone 07/30/2014 07/30/2014 Abdominal pain, epigastric 07/30/201407/30 Chronic back pain 09/17/2021 Overview: Dr. Burks-pain management documented as of this encounter (statuses as of 11/17/2021) [facility] of Past illness Narrative* Problem Noted Date Resolved Date Hyperglycemia 05/11/2019 03/12/2021 Overview: Had last hba1c which was stable 04/13 Nausea alone 07/30/2014 07/30/2014 Abdominal pain, epigastric 07/30/201407/30 Chronic back pain 09/17/2021 Overview: Dr. Burks-pain management documented as of this encounter (statuses as of 11/19/2021) [facility] of Past illness Narrative* Problem Noted Date Resolved Date Hyperglycemia 05/11/2019 03/12/2021 Overview: Had last hba1c which was stable 04/13 Nausea alone 07/30/2014 07/30/2014 Abdominal pain, epigastric 07/30/201407/30 Chronic back pain 09/17/2021 Overview: Dr. Burks-pain management documented as of this encounter (statuses as of 11/24/2021) [facility] illness Narrative* Problem Noted Date Resolved Date Hyperglycemia 05/11/2019 03/12/2021 Overview: Had last hba1c which was stable 04/13 Nausea alone 07/30/2014 07/30/2014 Abdominal pain, epigastric 07/30/201407/30 Chronic back pain 09/17/2021 Overview: Dr. Burks-pain management documented as of this encounter (statuses as of 12/23/2021) [facility] of [facility] illness Narrative* Problem Noted Date Resolved Date Hyperglycemia 05/11/2019 03/12/2021 Overview: Had last hba1c which was stable 04/13 Nausea alone 07/30/2014 07/30/2014 Abdominal pain, epigastric 07/30/201407/30 Chronic back pain 09/17/2021 Overview: Dr. Burks-pain management documented as of this encounter (statuses as of 12/24/2021) [facility] of Past illness Narrative* Problem Noted Date Resolved Date Hyperglycemia 05/11/2019 03/12/2021 Overview: Had last hba1c which was stable 04/13 Nausea alone 07/30/2014 07/30/2014 Abdominal pain, epigastric 07/30/201407/30 Chronic back pain 09/17/2021 Overview: Dr. Burks-pain management documented as of this encounter (statuses as of 12/24/2021) [facility] of [facility] illness Narrative* Problem Noted Date Resolved Date Hyperglycemia 05/11/2019 03/12/2021 Overview: Had last hba1c which was stable 04/13 Nausea alone 07/30/2014 07/30/2014 Abdominal pain, epigastric 07/30/201407/30 Chronic back pain 09/17/2021 Overview: Dr. Burks-pain management documented as of this encounter (statuses as of 12/30/2021) [facility] Diagnosis Type 2 diabetes mellitus without complication, without long-term current use of insulin ([facility])- Primary Irritable bowel syndrome with constipation Irritable bowel syndrome Rheumatoid arthritis of multiple sites with negative rheumatoid factor ([facility]) DDD (degenerative disc disease), lumbar Degeneration of lumbar or lumbosacral intervertebral disc Other hyperlipidemia Panic disorder Panic disorder without agoraphobia Migraine without aura, intractable, without status migrainosus [facility] Diagnosis Nausea- Primary Nausea alone Type 2 diabetes mellitus without complication, without long-term current use of insulin ([facility]) Panic disorder Panic disorder without agoraphobia Migraine without aura, intractable, without status migrainosus Other hyperlipidemia Elevated BP without diagnosis of hypertension [facility] Diagnosis Migraine without aura, intractable, without status migrainosus Nausea Nausea alone [facility] Diagnosis Discoloration of skin of finger- Primary Dyschromia, unspecified SOB (shortness of breath) Shortness of breath [facility]* Diagnosis Pes planus of both feet- Primary Foot pain, left Pain in limb Closed fracture of left foot with nonunion, subsequent encounter Hammer toes of both feet Acquired hallux valgus, unspecified laterality Other diabetic neurological complication associated with type 2 diabetes mellitus (HCC) Hyperkeratosis Acquired keratoderma [facility] Diagnosis Primary hypertension Unspecified essential hypertension [facility]* Diagnosis Posterior tibial tendon dysfunction- Primary Other disorders of synovium, tendon, and bursa Pes planus of both feet 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 Unspecified arthropathy, ankle and foot [facility]* Diagnosis Hypertension, unspecified type Irritable bowel syndrome with constipation Irritable bowel syndrome [facility]* Diagnosis Renal insufficiency- Primary Unspecified disorder of kidney and ureter Leukocytosis, unspecified type [facility]* Diagnosis Change in bowel habits Other symptoms involving digestive system Nausea Nausea alone [facility]* Diagnosis Leukocytosis, unspecified type- Primary [facility]* Diagnosis Screening breast examination Breast screening, unspecified [facility]* Diagnosis Change in bowel habits- Primary Other symptoms involving digestive system [facility]* Diagnosis Pes planus of both feet- Primary 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 Unspecified arthropathy, ankle and foot Posterior tibial tendon dysfunction Other disorders of synovium, tendon, and bursa [facility] Diagnosis Arthritis of foot- Primary Unspecified arthropathy, ankle and foot Posterior tibial tendon dysfunction Other disorders of synovium, tendon, and bursa Other diabetic neurological complication associated with type 2 diabetes mellitus (HCC) [facility]* Diagnosis Irritable bowel syndrome with constipation Irritable bowel syndrome [facility]* Diagnosis Arthritis of foot- Primary Unspecified arthropathy, ankle and foot 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, subsequent encounter [facility] Diagnosis Left foot pain- Primary Pain in limb [facility] Diagnosis Type 2 diabetes mellitus without complication, without long-term current use of insulin ([facility]) [facility] Diagnosis Primary hypertension- Primary Unspecified essential hypertension Obesity, Class III, BMI 40-49.9 (morbid obesity) (HCC) Morbid obesity Other hyperlipidemia Type 2 diabetes mellitus without complication, without long-term current use of insulin ([facility]) DDD (degenerative disc disease), lumbar Degeneration of lumbar or lumbosacral intervertebral disc Rheumatoid arthritis, involving unspecified site, unspecified whether rheumatoid factor present ([facility]) Stage 3 chronic kidney disease, unspecified whether stage 3a or 3b CKD ([facility]) Anemia, unspecified type [facility] this encounter [facility] Diagnosis Arthritis of foot- Primary Unspecified arthropathy, ankle and foot 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, subsequent encounter Left foot pain Pain in limb [facility]* Diagnosis Migraine without aura, intractable, without status migrainosus Nausea Nausea alone Irritable bowel syndrome with constipation Irritable bowel syndrome [facility] this encounter [facility]* Diagnosis Panic disorder Panic disorder without agoraphobia Migraine without aura, intractable, without status migrainosus Nausea Nausea alone Irritable bowel syndrome with constipation Irritable bowel syndrome [facility] this encounter [facility]* Diagnosis Hypertension, unspecified type [facility] this encounter [facility]* Diagnosis Arthritis of foot Unspecified arthropathy, ankle and foot 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, subsequent encounter [facility] this encounter [facility]* Diagnosis Left foot pain Pain in limb [facility] Diagnosis Diarrhea, unspecified type- Primary Change in bowel habits Other symptoms involving digestive system [facility] Diagnosis Irritable bowel syndrome with constipation Irritable bowel syndrome [facility] Diagnosis Primary hypertension- Primary Unspecified essential hypertension Other hyperlipidemia Fibromyalgia Mylagia and myositis, unspecified Type 2 diabetes mellitus without complication, without long-term current use of insulin (HCC) Stage 3 chronic kidney disease, unspecified whether stage 3a or 3b CKD (HCC) Panic disorder Panic disorder without agoraphobia Rheumatoid arthritis, involving unspecified site, unspecified whether rheumatoid factor present (HCC) DDD (degenerative disc disease), lumbar Degeneration of lumbar or lumbosacral intervertebral disc Obesity, Class II, BMI 35-39.9 Obesity, unspecified Encounter for screening mammogram for malignant neoplasm of breast Other screening mammogram documented in this encounter [facility] note* Diagnosis Encounter for screening mammogram for malignant neoplasm of breast Other screening mammogram documented in this encounter [facility] note* Diagnosis Irritable bowel syndrome with constipation Irritable bowel syndrome documented in this encounter [facility] for referral (narrative)* Outpatient Procedure (Routine) - Authorized Specialty Diagnoses / Procedures Referred By Jese Referred To Contact [facility] Diagnoses Discoloration of skin of finger SOB (shortness of breath) Procedures ECHO ECHO [facility] R-T 2D W/WOM-MODE COMPL SPEC&COLR D Sayda Carr APRN.CNP [address] [place] [address] [facility] [address] [address] Referral ID Status Reason Start Date Expiration Date Visits Requested Visits Authorized [id number] Authorized Auto-Generat ed Referral 12/24/2021 12/24/2022 1 1 [facility] for referral (narrative)* Outpatient Procedure (Routine) - Authorized Specialty Diagnoses / Procedures Referred By Jese Referred To Contact [facility] Diagnoses Nausea Procedures EGD DIAGNOSTIC ESOPHAGOGASTRODUODENOSC OPY TRANSORAL DIAGNOSTIC Gwen Blakely MD [address] [facility] [place] [address] [facility] [address] [place] [id number] Referral ID Status Reason Start Date Expiration Date Visits Requested Visits Authorized [id number] Authorized Auto-Generat ed Referral 2 04/11/2023 1 1 * Outpatient Procedure (Routine) - Authorized Specialty Diagnoses / Procedures [facility] Diagnoses Change in bowel habits Procedures COLONOSCOPY DIAGNOSTIC COLONOSCOPY FLX DX W/COLLJ SPEC WHEN Gwen Umana MD [address] [place] [address] [facility] [address] [place] [address] Referral ID Status Reason Start Date Expiration Date Visits Requested Visits Authorized [id number] Authorized Auto-Generat ed Referral 04/11/2023 1 1 [facility] for referral (narrative)* Diagnostic Procedure Only (Routine) - Closed Specialty Diagnoses / Procedures [facility] Referred To Contact [facility] Diagnoses Screening breast examination Procedures PATSY SCREENING SCREENING MAMMOGRAPHY BI 2-VIEW BREAST INC CAD Mikayla Strange MD [address] [place] [address] [facility] [address] [place] [address] Referral ID Status Reason Start Date Expiration Date V isits Requested Visits Authorized [id number] Closed Auto-Generate d Referral 03/22/2022 04/21/2023 1 1 [facility] for referral (narrative)* Diagnostic Procedure Only (Routine) - Closed Specialty Diagnoses / Procedures [facility] Referred To Contact [facility] Diagnoses Pes planus of both feet 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 Posterior tibial tendon dysfunction Procedures XR FOOT GENERAL 3V AP/LAT/OBL LEFT RADEX FOOT COMPLETE MINIMUM 3 VIEWS Comfort Muniz [address] [place] [address] Xr Imaging Referral ID Status Reason Start Date Expiration Date V isits Requested Visits Authorized [id number] Closed Auto-Generate d Referral 07/04/2022 08/03/2023 1 1 [facility] for referral (narrative)* Diagnostic Procedure Only (Routine) - Closed Specialty Diagnoses / Procedures Referred By Contac t Referred To Contact XR IMAGING Diagnoses 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, subsequent encounter Procedures XR FOOT GENERAL 3V AP/LAT/OBL LEFT RADEX FOOT COMPLETE MINIMUM 3 VIEWS Com[facility] Muniz [address] [place] [address] Xr Imaging Referral ID Status Reason Start Date Expiration Date V isits Requested Visits Authorized [id number] Closed Auto-Generate d Referral 08/18/2022 09/17/2023 1 1 [facility] for referral (narrative)* Diagnostic Procedure Only (Routine) - Closed Specialty Diagnoses / Procedures Referred By Contac t Referred To Contact XR IMAGING Diagnoses 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, subsequent encounter Procedures XR FOOT GENERAL 3V AP/LAT/OBL LEFT RADEX FOOT COMPLETE MINIMUM 3 VIEWS [facility] Muniz [address] [place] [address] [place] [address] Referral ID Status Reason Start Date Expiration Date V isits Requested Visits Authorized [id number] Closed Auto-Generate d Referral 08/18/2022 09/17/2023 1 1 [facility] for referral (narrative)* Outpatient Procedure (Routine) - Closed Specialty Diagnoses / Procedures Referred By Contac t Referred To Contact [facility] Diagnoses Change in bowel habits Procedures COLONOSCOPY DIAGNOSTIC COLONOSCOPY FLX DX W/COLLJ SPEC WHEN Gwen Umana MD [address] [place] [address] [facility] [address] [place] [address] Referral ID Status Reason Start Date Expiration Date V isits Requested Visits Authorized [id number] Closed Auto-Generate d Referral 04/11/2022 04/11/2023 1 1 [facility] for referral (narrative)* Diagnostic Procedure Only (Routine) - Pending Review Specialty Diagnoses / Procedures Referred By Contac t Referred To Contact [facility] Diagnoses Encounter for screening mammogram for malignant neoplasm of breast Procedures PATSY SCREENING SCREENING MAMMOGRAPHY BI 2-VIEW BREAST INC Mikayla Garcia MD [address] [place] [address] [facility] [address] [place] [address] Referral ID Status Reason Start Date Expiration Date Visits Requested Visits Authorized [id number] Pending Review Auto-Generat ed Referral 3 06/10/2024 1 1 [facility] for visit Narrative* Diagnostic Procedure Only (Routine) - Closed Specialty Diagnoses / Procedures Referred By Contac t Referred To Contact [facility] Diagnoses Screening breast examination Procedures PATSY SCREENING SCREENING MAMMOGRAPHY BI 2-VIEW BREAST INC Mikayla Garcia MD [address] [place] [address] [facility] [address] [place] [address] Referral ID Status Reason Start Date Expiration Date V isits Requested Visits Authorized [id number] Closed Auto-Generate d Referral 03/22/2022 04/21/2023 1 1 [facility] for visit Narrative* Diagnostic Procedure Only (Routine) - Closed Specialty Diagnoses / Procedures Referred By Contac t Referred To Contact XR IMAGING Diagnoses 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, subsequent encounter Procedures XR FOOT GENERAL 3V AP/LAT/OBL LEFT RADEX FOOT COMPLETE MINIMUM [address] [place] [address] [place] [address] Referral ID Status Reason Start Date Expiration Date V isits Requested Visits Authorized [id number] Closed Auto-Generate d Referral 08/18/2022 09/17/2023 1 1 [facility] for visit Narrative* Outpatient Procedure (Routine) - Closed Specialty Diagnoses / Procedures Referred By Contac t Referred To Contact [facility] Diagnoses Change in bowel habits Procedures COLONOSCOPY DIAGNOSTIC COLONOSCOPY FLX DX W/COLLJ SPEC WHEN Gwen Umana MD [address] [place] [address] [facility] [address] [place] [address] Referral ID Status Reason Start Date Expiration Date V isits Requested Visits Authorized [id number] Closed Auto-Generate d Referral 04/11/2022 04/11/2023 1 1 [facility] for visit Narrative* Diagnostic Procedure Only (Routine) - Closed Specialty Diagnoses / Procedures Referred By Jese t Referred To Contact [facility] Diagnoses Encounter for screening mammogram for malignant neoplasm of breast Procedures PATSY SCREENING SCREENING MAMMOGRAPHY BI 2-VIEW BREAST INC CAD Mikayla Strange MD [address] [place] [address] [facility] [address] [place] [address] Referral ID Status Reason Start Date Expiration Date V isits Requested Visits Authorized [id number] Closed Auto-Generate d Referral 05/12/2023 06/10/2024 1 1 [facility] Reason for Referral Specialty Diagnoses / Procedures Referred By Contac t Referred To Contact CT IMAGING Diagnoses Left foot pain Procedures CT FOOT WO IVCON LT CT LOWER EXTREMITY W/O CONTRAST MATERIAL TestComfort crawford [address] [place] [address] Ct Imaging Referral ID Status Reason Start Date Expiration Date Visits Requested Visits Authorized [id number] Authorized Auto-Generat ed Referral 08/29/2022 10/13/2022 1 1 Specialty Diagnoses / Procedures Referred By Contac t Referred To Contact CT IMAGING Diagnoses Left foot pain Procedures CT FOOT WO IVCON LT CT LOWER EXTREMITY W/O CONTRAST MATERIAL TestComfort crawford [address] [place] [address] [place] [address] Referral ID Status Reason Start Date Expiration Date V isits Requested Visits Authorized [id number] Closed Auto-Generate d Referral 08/29/2022 10/13/2022 1 1 Medications Administered Section Inactive Administered Medications - up to 3 most recent administrations Medication Order MAR Action Action Date Dose Rate Site diphenhydrAMINE 12.5-50 mg injection (BENADRYL) 12.5-50 mg, INTRAVENOUS, DIRECTED, Starting on Mon05/27/22 at 0930, Until Mon05/27/22 at 1329, DOSING DIRECTED BY PHYSICIAN FOR PROCEDURAL SEDATION ONLY, Intraprocedure Given 05/27/2022 8:40 AM EST 50 mg fentaNYL 50 mcg/mL 25-100 mcg injection (SUBLIMAZE) 25-100 mcg, INTRAVENOUS, DIRECTED, Starting on Mon05/27/22 at 0930, Until Mon05/27/22 at 1329, DOSING DIRECTED BY PHYSICIAN FOR PROCEDURAL SEDATION ONLY, Intraprocedure Given 05/27/2022 8:52 AM EST 50 mcg Summary Purpose Family History No Family History Records Found Advance Directives No Advanced Directives Records Found Additional Source Comments Source Comments (unrecognize d section and content) In the event this informatio n is protected by the Federal Confidentiality of Alcohol and Drug Abuse Patient Records regulations: The Federal rules restrict any use of the information to criminally investigate or prosecute any alcohol or drug abuse patient.[facility] the event this information is protected by the Federal Confidentiality of Alcohol and Drug Abuse Patient Records regulations: The Federal rules restrict any use of the information to criminally investigate or prosecute any alcohol or drug abuse patient.[facility] the event this information is protected by the Federal Confidentiality of Alcohol and Drug Abuse Patient Records regulations: The Federal rules restrict any use of the information to criminally investigate or prosecute any alcohol or drug abuse patient.[facility] the event this information is protected by the Federal Confidentiality of Alcohol and Drug Abuse Patient Records regulations: The Federal rules restrict any use of the information to criminally investigate or prosecute any alcohol or drug abuse patient.[facility] the event this information is protected by the Federal Confidentiality of Alcohol and Drug Abuse Patient Records regulations: The Federal rules restrict any use of the information to criminally investigate or prosecute any alcohol or drug abuse patient.[facility] the event this information is protected by the Federal Confidentiality of Alcohol and Drug Abuse Patient Records regulations: The Federal rules restrict any use of the information to criminally investigate or prosecute any alcohol or drug abuse patient.[facility] the event this information is protected by the Federal Confidentiality of Alcohol and Drug Abuse Patient Records regulations: The Federal rules restrict any use of the information to criminally investigate or prosecute any alcohol or drug abuse patient.[facility] the event this information is protected by the Federal Confidentiality of Alcohol and Drug Abuse Patient Records regulations: The Federal rules restrict any use of the information to criminally investigate or prosecute any alcohol or drug abuse patient.[facility] the event this information is protected by the Federal Confidentiality of Alcohol and Drug Abuse Patient Records regulations: The Federal rules restrict any use of the information to criminally investigate or prosecute any alcohol or drug abuse patient.[facility] the event this information is protected by the Federal Confidentiality of Alcohol and Drug Abuse Patient Records regulations: The Federal rules restrict any use of the information to criminally investigate or prosecute any alcohol or drug abuse patient.[facility] the event this information is protected by the Federal Confidentiality of Alcohol and Drug Abuse Patient Records regulations: The Federal rules restrict any use of the information to criminally investigate or prosecute any alcohol or drug abuse patient.[facility] the event this information is protected by the Federal Confidentiality of Alcohol and Drug Abuse Patient Records regulations: The Federal rules restrict any use of the information to criminally investigate or prosecute any alcohol or drug abuse patient.[facility] the event this information is protected by the Federal Confidentiality of Alcohol and Drug Abuse Patient Records regulations: The Federal rules restrict any use of the information to criminally investigate or prosecute any alcohol or drug abuse patient.[facility] the event this information is protected by the Federal Confidentiality of Alcohol and Drug Abuse Patient Records regulations: The Federal rules restrict any use of the information to criminally investigate or prosecute any alcohol or drug abuse patient.[facility] the event this information is protected by the Federal Confidentiality of Alcohol and Drug Abuse Patient Records regulations: The Federal rules restrict any use of the information to criminally investigate or prosecute any alcohol or drug abuse patient.[facility] the event this information is protected by the Federal Confidentiality of Alcohol and Drug Abuse Patient Records regulations: The Federal rules restrict any use of the information to criminally investigate or prosecute any alcohol or drug abuse patient.[facility] the event this information is protected by the Federal Confidentiality of Alcohol and Drug Abuse Patient Records regulations: The Federal rules restrict any use of the information to criminally investigate or prosecute any alcohol or drug abuse patient.[facility] the event this information is protected by the Federal Confidentiality of Alcohol and Drug Abuse Patient Records regulations: The Federal rules restrict any use of the information to criminally investigate or prosecute any alcohol or drug abuse patient.[facility] the event this information is protected by the Federal Confidentiality of Alcohol and Drug Abuse Patient Records regulations: The Federal rules restrict any use of the information to criminally investigate or prosecute any alcohol or drug abuse patient.[facility] the event this information is protected by the Federal Confidentiality of Alcohol and Drug Abuse Patient Records regulations: The Federal rules restrict any use of the information to criminally investigate or prosecute any alcohol or drug abuse patient.[facility] the event this information is protected by the Federal Confidentiality of Alcohol and Drug Abuse Patient Records regulations: The Federal rules restrict any use of the information to criminally investigate or prosecute any alcohol or drug abuse patient.[facility] the event this information is protected by the Federal Confidentiality of Alcohol and Drug Abuse Patient Records regulations: The Federal rules restrict any use of the information to criminally investigate or prosecute any alcohol or drug abuse patient.[facility] the event this information is protected by the Federal Confidentiality of Alcohol and Drug Abuse Patient Records regulations: The Federal rules restrict any use of the information to criminally investigate or prosecute any alcohol or drug abuse patient.[facility] the event this information is protected by the Federal Confidentiality of Alcohol and Drug Abuse Patient Records regulations: The Federal rules restrict any use of the information to criminally investigate or prosecute any alcohol or drug abuse patient.[facility] the event this information is protected by the Federal Confidentiality of Alcohol and Drug Abuse Patient Records regulations: The Federal rules restrict any use of the information to criminally investigate or prosecute any alcohol or drug abuse patient.[facility] the event this information is protected by the Federal Confidentiality of Alcohol and Drug Abuse Patient Records regulations: The Federal rules restrict any use of the information to criminally investigate or prosecute any alcohol or drug abuse patient.[facility] the event this information is protected by the Federal Confidentiality of Alcohol and Drug Abuse Patient Records regulations: The Federal rules restrict any use of the information to criminally investigate or prosecute any alcohol or drug abuse patient.[facility] the event this information is protected by the Federal Confidentiality of Alcohol and Drug Abuse Patient Records regulations: The Federal rules restrict any use of the information to criminally investigate or prosecute any alcohol or drug abuse patient.[facility] the event this information is protected by the Federal Confidentiality of Alcohol and Drug Abuse Patient Records regulations: The Federal rules restrict any use of the information to criminally investigate or prosecute any alcohol or drug abuse patient.[facility] the event this information is protected by the Federal Confidentiality of Alcohol and Drug Abuse Patient Records regulations: The Federal rules restrict any use of the information to criminally investigate or prosecute any alcohol or drug abuse patient.[facility] the event this information is protected by the Federal Confidentiality of Alcohol and Drug Abuse Patient Records regulations: The Federal rules restrict any use of the information to criminally investigate or prosecute any alcohol or drug abuse patient.[facility] the event this information is protected by the Federal Confidentiality of Alcohol and Drug Abuse Patient Records regulations: The Federal rules restrict any use of the information to criminally investigate or prosecute any alcohol or drug abuse patient.[facility] the event this information is protected by the Federal Confidentiality of Alcohol and Drug Abuse Patient Records regulations: The Federal rules restrict any use of the information to criminally investigate or prosecute any alcohol or drug abuse patient.[facility] the event this information is protected by the Federal Confidentiality of Alcohol and Drug Abuse Patient Records regulations: The Federal rules restrict any use of the information to criminally investigate or prosecute any alcohol or drug abuse patient.[facility] the event this information is protected by the Federal Confidentiality of Alcohol and Drug Abuse Patient Records regulations: The Federal rules restrict any use of the information to criminally investigate or prosecute any alcohol or drug abuse patient.[facility] the event this information is protected by the Federal Confidentiality of Alcohol and Drug Abuse Patient Records regulations: The Federal rules restrict any use of the information to criminally investigate or prosecute any alcohol or drug abuse patient.[facility] the event this information is protected by the Federal Confidentiality of Alcohol and Drug Abuse Patient Records regulations: The Federal rules restrict any use of the information to criminally investigate or prosecute any alcohol or drug abuse patient.[facility] the event this information is protected by the Federal Confidentiality of Alcohol and Drug Abuse Patient Records regulations: The Federal rules restrict any use of the information to criminally investigate or prosecute any alcohol or drug abuse patient.[facility]In the event this information is protected by the Federal Confidentiality of Alcohol and Drug Abuse Patient Records regulations: The Federal rules restrict any use of the information to criminally investigate or prosecute any alcohol or drug abuse patient.[facility] the event this information is protected by the Federal Confidentiality of Alcohol and Drug Abuse Patient Records regulations: The Federal rules restrict any use of the information to criminally investigate or prosecute any alcohol or drug abuse patient.[facility]In the event this information is protected by the Federal Confidentiality of Alcohol and Drug Abuse Patient Records regulations: The Federal rules restrict any use of the information to criminally investigate or prosecute any alcohol or drug abuse patient.[facility]In the event this information is protected by the Federal Confidentiality of Alcohol and Drug Abuse Patient Records regulations: The Federal rules restrict any use of the information to criminally investigate or prosecute any alcohol or drug abuse patient.[facility]In the event this information is protected by the Federal Confidentiality of Alcohol and Drug Abuse Patient Records regulations: The Federal rules restrict any use of the information to criminally investigate or prosecute any alcohol or drug abuse patient.[facility]In the event this information is protected by the Federal Confidentiality of Alcohol and Drug Abuse Patient Records regulations: The Federal rules restrict any use of the information to criminally investigate or prosecute any alcohol or drug abuse patient.[facility]In the event this information is protected by the Federal Confidentiality of Alcohol and Drug Abuse Patient Records regulations: The Federal rules restrict any use of the information to criminally investigate or prosecute any alcohol or drug abuse patient.[facility]In the event this information is protected by the Federal Confidentiality of Alcohol and Drug Abuse Patient Records regulations: The Federal rules restrict any use of the information to criminally investigate or prosecute any alcohol or drug abuse patient.[facility] HospitalIn the event this information is protected by the Federal Confidentiality of Alcohol and Drug Abuse Patient Records regulations: The Federal rules restrict any use of the information to criminally investigate or prosecute any alcohol or drug abuse patient.[facility] Reason for Visit (unrecogniz ed section and content) Reason Comments Opened In Error Reason Comments Vomiting since Monday Reason Comments Nausea with vomiting asking to have order for phen a doz suppository to help with this Reason Comments Insurance Authorization Reason Onset Date Comments Refill Request 11/24/2021 Reason Comments Patient Question Reason Comments Acute Visit discolored finger ti ps Reason Comments New Patient Left foot pain Pain Specialty Diagnoses / Procedures Referred By Jese graahm Referred To Contact Podiatry Diagnoses Foot pain, left Procedures CONSULT TO PODIATRY OFFICE/OUTPATIENT NEW HIGH MDM 60-74 MINUTES Mikayla Strange MD [address] [place] [address] Referral ID Status Reason Start Date Expiration Date V isits Requested Visits Authorized [id number] Closed PCP Requested Referral 12/17/2021 12/17/2022 1 1 Reason Comments Follow Up Reason Comments Established Patient Follow Up Pain Reason Onset Date Comments Refill Request 03/03/2022 Reason Comments Results Reason Comments sweating Reason Comments Consult Colonoscopy consult, last colon 2012 Specialty Diagnoses / Procedures Referred By Contac t Referred To Contact General Surgery Diagnoses Change in bowel habits Nausea Procedures CONSULT TO GENERAL SURGERY OFFICE/OUTPATIENT [facility] MDM 60-74 MINUTES Mikayla Strange MD [address] [place] [address] Referral ID Status Reason Start Date Expiration Date V isits Requested Visits Authorized [id number] Closed PCP Requested Referral 03/22/2022 03/22/2023 1 1 Reason Onset Date Comments Refill Request 05/20/2022 Reason Comments Follow Up colonoscopy Reason Comments Established Patient Follow Up Pain Foot Deformity Diabetic Foot Care Reason Onset Date Comments Refill Request 08/15/2022 Reason Comments Upcoming Procedure Reason Comments Established Patient Follow Up Pain sign consent Reason Comments Patient Update Pre cert Reason Comments Patient Update Reason Comments Refill Request Reason Comments Physical Reason Onset Date Comments Refill Request 01/04/2023 Reason Onset Date Comments Refill Request 04/28/[address] Specialty Diagnoses / Procedures Referred By Contac t Referred To Contact CT IMAGING Diagnoses Left foot pain Procedures CT FOOT WO IVCON LT CT LOWER EXTREMITY W/O CONTRAST MATERIAL [employer] [address] [place] [address] [place] [address] Referral ID Status Reason Start Date Expiration Date V isits Requested Visits Authorized [id number] Closed Auto-Generate d Referral 08/29/2022 10/13/2022 1 1 Reason Comments 6 Month Exam Reason Onset Date Comments Refill Request 08/08/2023 Care Teams (unrecognized sec tion and content) 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 [address] PCP - General Family Practice 05/11/19 [employer]ett 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 [address] PCP - General Family Medicine 05/11/19 Garnett 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 [address] PCP - General Family Medicine 05/11/19 Garnett 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 [address] PCP - General Family Medicine 05/11/19 Garnett 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 [address] PCP - General Family Medicine 05/11/19 Garnett 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 [address] PCP - General Family Medicine 05/11/19 Garnett 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 [address] PCP - General Family Medicine 05/11/19 Garnett 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 This clinical summary was aggregated from multiple sources. Caution should be exercised in using it in the provision of clinical care. This summary normalizes information from multiple sources, and as a consequence, information in this document may materially change the coding, format and clinical context of patient data. In addition, data may be omitted in some cases. CLINICAL DECISIONS SHOULD BE BASED ON THE PRIMARY CLINICAL RECORDS. [facility] [employer] [facility] provides no warranty or guarantee of the accuracy or completeness of information in this document.
[2023-08-10 10:12] LABS: Absolute Lymphocyte Count 2.84 X10^3/uL (0.83-4.51); Absolute Neutrophil Count 4.1 X10^3/uL (2.0-7.7); Basophil# 0.04 X10^3/uL; Basophil% 0.5 % (0-1); Eosinophil# 0.13 X10^3/uL; Eosinophils% 1.7 % (0-5); Hematocrit 37.8 % (37-47); Hemoglobin 11.8 g/dL (12.0-15.0); Lymphocyte # 2.84 X10^3/ul (0.83-4.51); Lymphocyte % 37.3 % (19-41); Mean Corp Hgb Conc 31.2 g/dL (32-36); Mean Corpuscular Hgb 28.8 pg (27.0-32.0); Mean Corpuscular Volume 92.2 fL (81-99); Mean Platelet Vol. 11.3 fl (6.2-12.0); Monocyte# 0.47 X10^3/uL; Monocyte% 6.2 % (0-10); NRBC Flagged by Analyzer 0 % (0-5); Neutrophil # 4.13 X10^3/uL (2.7-7.7); Neutrophil % 54.2 % (47-70); Platelet Count 220 K/mm3 (150-450); RBC Distribution Width SD 44.3 fl (35.1-43.9); White Blood Count 7.6 K/mm3 (4.4-11.0)
[2023-08-10 10:26] LABS: ALB/GLOB Ratio 1.2 RATIO (0.9-2.4); AST(SGOT) 22 U/L (15-37); Alanine Aminotransfer ALT/SGPT 15 U/L (13-56); Albumin, Serum 3.7 g/dL (3.2-5.0); Alkaline Phosphatase 66 U/L (45-117); Anion Gap 7 (5-15); BUN 11 mg/dL (7-18); BUN/Creat Ratio 9.5 RATIO (10-20); Chloride 108 mmol/L (98-107); Creatinine, Serum 1.16 mg/dL (0.55-1.02); EST Glomerular Filtration Rate 50 mL/min (>60); Est Glom Filt Rate - Afr Amer 60 mL/min (>60); Globulin 3.2 g/dL (2.2-4.2); Glucose 88 mg/dL (74-106); Potassium 3.5 mmol/L (3.5-5.1); Protein, Total 6.9 g/dL (6.4-8.2); Sodium Level 141 mmol/L (136-145)
== END | disposition home or self-care (01) ==
LOC: MTLAB 07:55
PROVIDERS: PCP Family Medicine; Referring Provider Internal Medicine Rheumatology; Visit Provider Internal Medicine Rheumatology
DX: M06.00 Rheumatoid arthritis without rheumatoid factor, unspecified site (principal); Z79.899 Other long term (current) drug therapy; M79.7 Fibromyalgia; M25.752 Osteophyte, left hip; M47.897 Other spondylosis, lumbosacral region; M21.41 Flat foot [pes planus] (acquired), right foot; H40.9 Unspecified glaucoma; K58.9 Irritable bowel syndrome, unspecified; F41.9 Anxiety disorder, unspecified; F32.9 Major depressive disorder, single episode, unspecified; G43.909 Migraine, unspecified, not intractable, without status migrainosus
CPT/HCPCS: 36415; 80053; 85025

== ENCOUNTER → 2023-11-09 | Outpatient (CLI) | payer MEDICARE, SELFPAY ==
[2023-11-09 10:06] LABS: Absolute Lymphocyte Count 3.54 X10^3/uL (0.83-4.51); Absolute Neutrophil Count 5.8 X10^3/uL (2.0-7.7); Basophil# 0.04 X10^3/uL; Basophil% 0.4 % (0-1); Hematocrit 40.1 % (37-47); Hemoglobin 12.5 g/dL (12.0-15.0); Lymphocyte # 3.54 X10^3/ul (0.83-4.51); Lymphocyte % 34.6 % (19-41); Mean Corp Hgb Conc 31.2 g/dL (32-36); Mean Corpuscular Hgb 28.2 pg (27.0-32.0); Mean Corpuscular Volume 90.5 fL (81-99); Mean Platelet Vol. 11.7 fl (6.2-12.0); Monocyte# 0.75 X10^3/uL; Monocyte% 7.3 % (0-10); NRBC Flagged by Analyzer 0 % (0-5); Neutrophil # 5.78 X10^3/uL (2.7-7.7); Neutrophil % 56.4 % (47-70); Platelet Count 287 K/mm3 (150-450); RBC Distribution Width CV 12.9 % (11.6-14.6); RBC Distribution Width SD 42.9 fl (35.1-43.9); Red Blood Count 4.43 M/mm3 (4.2-5.4); White Blood Count 10.2 K/mm3 (4.4-11.0)
[2023-11-09 10:35] LABS: AST(SGOT) 15 U/L (15-37); Alanine Aminotransfer ALT/SGPT 16 U/L (13-56); Albumin, Serum 3.7 g/dL (3.2-5.0); Alkaline Phosphatase 77 U/L (45-117); Anion Gap 7 (5-15); BUN 16 mg/dL (7-18); BUN/Creat Ratio 13.8 RATIO (10-20); Calcium,Total 9.2 mg/dL (8.5-10.1); Chloride 104 mmol/L (98-107); Creatinine, Serum 1.16 mg/dL (0.55-1.02); EST Glomerular Filtration Rate 50 mL/min (>60); Est Glom Filt Rate - Afr Amer 60 mL/min (>60); Globulin 3.7 g/dL (2.2-4.2); Glucose 84 mg/dL (74-106); Potassium 3.8 mmol/L (3.5-5.1); Protein, Total 7.4 g/dL (6.4-8.2); Sodium Level 137 mmol/L (136-145)
== END | disposition home or self-care (01) ==
LOC: MTLAB 08:05
PROVIDERS: PCP Family Medicine; Referring Provider Internal Medicine Rheumatology; Visit Provider Internal Medicine Rheumatology
DX: M06.09 Rheumatoid arthritis without rheumatoid factor, multiple sites (principal); M79.7 Fibromyalgia; Z79.899 Other long term (current) drug therapy
CPT/HCPCS: 36415; 80053; 85025

== ENCOUNTER → 2024-01-25 | Outpatient (CLI) | payer MEDICARE, SELFPAY ==
[2024-01-25 10:18] LABS: Absolute Neutrophil Count 3.1 X10^3/uL (2.0-7.7); Basophil# 0.04 X10^3/uL; Basophil% 0.6 % (0-1); Eosinophil# 0.07 X10^3/uL; Hematocrit 34.9 % (37-47); Hemoglobin 10.8 g/dL (12.0-15.0); Lymphocyte % 46.5 % (19-41); Mean Corp Hgb Conc 30.9 g/dL (32-36); Mean Corpuscular Hgb 28.1 pg (27.0-32.0); Mean Corpuscular Volume 90.9 fL (81-99); Mean Platelet Vol. 11.3 fl (6.2-12.0); Monocyte# 0.43 X10^3/uL; Monocyte% 6.3 % (0-10); NRBC Flagged by Analyzer 0 % (0-5); Neutrophil # 3.12 X10^3/uL (2.7-7.7); Neutrophil % 45.3 % (47-70); Platelet Count 260 K/mm3 (150-450); RBC Distribution Width CV 12.8 % (11.6-14.6); RBC Distribution Width SD 42.2 fl (35.1-43.9); Red Blood Count 3.84 M/mm3 (4.2-5.4); White Blood Count 6.9 K/mm3 (4.4-11.0)
[2024-01-25 10:41] LABS: AST(SGOT) 18 U/L (15-37); Alanine Aminotransfer ALT/SGPT 13 U/L (13-56); Albumin, Serum 3.3 g/dL (3.2-5.0); Alkaline Phosphatase 75 U/L (45-117); Anion Gap 4 (5-15); BUN 15 mg/dL (7-18); BUN/Creat Ratio 14.6 RATIO (10-20); Calcium,Total 8.7 mg/dL (8.5-10.1); Chloride 106 mmol/L (98-107); Creatinine, Serum 1.03 mg/dL (0.55-1.02); EST Glomerular Filtration Rate 57 mL/min (>60); Est Glom Filt Rate - Afr Amer 69 mL/min (>60); Globulin 3.3 g/dL (2.2-4.2); Glucose 90 mg/dL (74-106); Potassium 4.3 mmol/L (3.5-5.1); Protein, Total 6.6 g/dL (6.4-8.2); Sodium Level 137 mmol/L (136-145)
== END | disposition home or self-care (01) ==
LOC: MTLAB 08:20
PROVIDERS: PCP Family Medicine; Referring Provider Internal Medicine Rheumatology; Visit Provider Internal Medicine Rheumatology
DX: M06.09 Rheumatoid arthritis without rheumatoid factor, multiple sites (principal); M25.572 Pain in left ankle and joints of left foot; M79.7 Fibromyalgia; M47.897 Other spondylosis, lumbosacral region; M21.41 Flat foot [pes planus] (acquired), right foot; H40.9 Unspecified glaucoma; K58.9 Irritable bowel syndrome, unspecified; F41.9 Anxiety disorder, unspecified; F32.A Depression, unspecified; G43.909 Migraine, unspecified, not intractable, without status migrainosus; E78.5 Hyperlipidemia, unspecified; Z79.899 Other long term (current) drug therapy
CPT/HCPCS: 36415; 80053; 85025

== ENCOUNTER → 2024-04-17 | Outpatient (CLI) | payer MEDICARE, SELFPAY | END | disposition home or self-care (01) | PROVIDERS: PCP Family Medicine; Referring Provider Anesthesiology Pain Medicine; Visit Provider Anesthesiology Pain Medicine | DX: F11.20 Opioid dependence, uncomplicated (principal) ==

== ENCOUNTER → 2024-04-18 | Outpatient (CLI) | payer MEDICARE, SELFPAY ==
[2024-04-18 10:24] LABS: Absolute Lymphocyte Count 2.49 X10^3/uL (0.83-4.51); Basophil# 0.03 X10^3/uL; Basophil% 0.4 % (0-1); Eosinophil# 0.16 X10^3/uL; Eosinophils% 2.2 % (0-5); Hematocrit 38.5 % (37-47); Hemoglobin 12.1 g/dL (12.0-15.0); Lymphocyte # 2.49 X10^3/ul (0.83-4.51); Mean Corp Hgb Conc 31.4 g/dL (32-36); Mean Corpuscular Hgb 28.8 pg (27.0-32.0); Mean Corpuscular Volume 91.7 fL (81-99); Mean Platelet Vol. 11.2 fl (6.2-12.0); Monocyte# 0.46 X10^3/uL; Monocyte% 6.5 % (0-10); NRBC Flagged by Analyzer 0 % (0-5); Neutrophil # 3.97 X10^3/uL (2.7-7.7); Neutrophil % 55.8 % (47-70); POSITIVE COUNT YES; RBC Distribution Width SD 47.4 fl (35.1-43.9); White Blood Count 7.1 K/mm3 (4.4-11.0)
[2024-04-18 10:53] LABS: ALB/GLOB Ratio 1.1 RATIO (0.9-2.4); AST(SGOT) 17 U/L (15-37); Alanine Aminotransfer ALT/SGPT 16 U/L (13-56); Albumin, Serum 3.8 g/dL (3.2-5.0); Alkaline Phosphatase 68 U/L (45-117); Anion Gap 4 (5-15); BUN 16 mg/dL (7-18); Calcium,Total 9.1 mg/dL (8.5-10.1); Chloride 105 mmol/L (98-107); Creatinine, Serum 1.07 mg/dL (0.55-1.02); EST Glomerular Filtration Rate 55 mL/min (>60); Est Glom Filt Rate - Afr Amer 66 mL/min (>60); Globulin 3.6 g/dL (2.2-4.2); Glucose 77 mg/dL (74-106); Potassium 4.2 mmol/L (3.5-5.1); Protein, Total 7.4 g/dL (6.4-8.2); Sodium Level 136 mmol/L (136-145)
[2024-04-18 10:55] LABS: Differential Indicated SCAN CRITERIA MET; Platelet Estimate ADEQUATE (ADEQ)
== END | disposition home or self-care (01) ==
PROVIDERS: PCP Family Medicine; Referring Provider Internal Medicine Rheumatology; Visit Provider Internal Medicine Rheumatology
DX: M06.09 Rheumatoid arthritis without rheumatoid factor, multiple sites (principal); Z79.899 Other long term (current) drug therapy; M79.7 Fibromyalgia
CPT/HCPCS: 36415; 80053; 85025

== ENCOUNTER 2024-05-01 20:50 | Emergency (ER) | payer MEDICARE, SELFPAY ==
[2024-05-01 20:50] VITALS: BP 146/71; PULSE 78; RESP 16; TEMP 36.7; O2SAT 98; BMI 35.6
[2024-05-01] MEDS: Ondansetron 4 MG/2 ML Vial IV (21:38)
[2024-05-01] MEDS: Morphine 4 MG/ML Syringe IV ×2 (21:38→23:11)
[2024-05-01 22:28] LABS: Bedside Glucose 92 mg/dL (74-106)
[2024-05-02 00:50] VITALS: BP 124/57; PULSE 75; RESP 16; O2SAT 97
[2024-05-02] MEDS: Morphine 4 MG/ML Syringe IV (01:00)
[2024-05-02 01:06] LABS: Bedside Glucose 81 mg/dL (74-106)
[2024-05-02] MEDS: HYDROmorphone 0.5 MG/0.5 ML SYRINGE IV (03:25)
[2024-05-02 03:34] VITALS: BP 120/77; PULSE 80; RESP 16; TEMP 36.6; O2SAT 99
== END 2024-05-02 03:42 | disposition short-term general hospital (02) ==
PROVIDERS: Emergency Provider Emergency Medicine; PCP Family Medicine; Visit Provider Emergency Medicine
DX: S82.001A Unspecified fracture of right patella, initial encounter for closed fracture (principal); E11.9 Type 2 diabetes mellitus without complications; M97.11XA Periprosthetic fracture around internal prosthetic right knee joint, initial encounter; E78.00 Pure hypercholesterolemia, unspecified; W17.89XA Other fall from one level to another, initial encounter; Y93.01 Activity, walking, marching and hiking; Y92.89 Other specified places as the place of occurrence of the external cause; Z96.651 Presence of right artificial knee joint; Z79.899 Other long term (current) drug therapy; K21.9 Gastro-esophageal reflux disease without esophagitis; Z90.49 Acquired absence of other specified parts of digestive tract; Z98.51 Tubal ligation status
CPT/HCPCS: 73560; 73590; 82962; 96374; 96375; 96376; 99285; A4216; J2405

== ENCOUNTER 2024-06-24 13:19 | Emergency (ER) | payer MEDICARE, SELFPAY ==
[2024-06-24 13:20] VITALS: BP 95/82; PULSE 78; RESP 16; TEMP 37.2; O2SAT 97; BMI 34.0
[2024-06-24 14:24] VITALS: BP 127/63; PULSE 84; RESP 17; TEMP 37.1; O2SAT 97
[2024-06-24 15:19] VITALS: PULSE 80; RESP 18; O2SAT 96
[2024-06-24 15:27] LABS: Mucous, Urine 0 SEEN /hpf (<or=2+); Red Blood Cells-Urine 0 SEEN /hpf (0-5); Squamous Epithelial Cells - UA 0 SEEN /hpf (5-10)
--- NOTE | 2024-06-24 15:48 | EKG12_ITS ---
Test Reason : CP Blood Pressure : */* mmHG Vent. Rate : 81 BPM Atrial Rate : 81 BPM P-R Int : 164 ms QRS Dur : 74 ms QT Int : 402 ms P-R-T Axes : 57 57 69 degrees QTcB Int : 466 ms Normal sinus rhythm Normal ECG Confirmed by VANNESSA SARGENT, DEBBI ([id number]), industrial editor AMANDA VAUGHN ([id number]) on 06/25/2024 8:00:32 AM Referred By: Confirmed By: DEBBI HURD MD
--- NOTE | 2024-06-24 15:50 | VDLE_ITS ---
Reason For Study: Right leg pain RIGHT LEFT GSV is normal. CFV is patent and compressible. CFV is compressible, spontaneous, phasic, competent and demonstrates normal augmentation. FV is compressible, spontaneous, phasic, competent and demonstrates normal augmentation. FV distal visualized with color, appears patent, unable to tolerate compression. PopV and T/P Trunk not visualized due to external fixation device. Calf veins visualized in segements due to external fixation device. PTV is compressible. RT PerV is compressible. Procedure This is a venous duplex using B-mode, color flow and spectral Doppler. Exam performed portable in ED. Limited views were obtained. A preliminary report was called and/or faxed to ED. VL/Venous Duplex US, Unilateral Interpretation Summary Deep veins of the right lower extremity are patent and compressible segmentally . There is no evidence of right lower extremity deep vein thrombosis. The right great sapheno us vein appears patent and compressible segmentally. Limited study due to external fixation hardware Ordering Physician: Rafael Martines Referring Physician: David Parks Performed By: Allegra Keene, LUDIVINA, RVT
[2024-06-24 15:51] LABS: Color, Urine Yellow (Yellow); Glucose, Dipstick Normal (Normal); Ketone-Dipstick Negative (Negative); Leukocyte Esterase-Dipstick 500 /ul (Negative); Nitrite-Dipstick Negative (Negative); Occult Blood-Urine 25 /ul (Negative); Protein-Dipstick 15 mg/dl (Negative); Urine Bilirubin Dipstick Negative (Negative); Urine Clarity Sl. Cloudy (Clear); Urine Urobilinogen Normal (Normal); Urine pH 6.5 (5.0 - 8.0)
--- NOTE | 2024-06-24 15:59 | EDS_ITS ---
HPI HPI - Female History of Present Illness Chief Complaint: Complaint Narrative Narrative: Chief complaint and HPI: Dysuria, fever, multiple complaints. 64-year-old female with past medical history of fibromyalgia, HLD, HTN, DM2 presents for evaluation of dysuria and multiple other complaints. Patient states she suffered a fall in April and broke her prosthetic right knee. She had surgery on 05/[address] Wylie who placed an Ex-Fx device. Patient states she mostly presents today due for dysuria and fever. She states her dysuria developed about 4 to 5 days ago. She has history of UTIs. She denies any abdominal pain or back pain. Denies any hematuria. Patient states 3 days ago she started to develop increased pain in her right lower extremity. She states that she has also noticed some purulent material around the proximal portion of her Ex-Fx but that this has been present since it was placed. She states that this area is more tender. Patient endorses the development of fevers that started yesterday. She also endorses intermittent chest pain for the past several months. She denies any URI symptoms, shortness of breath, cough, nausea, vomiting, diarrhea. Review of systems: See HPI Medications: As listed on the chart Allergies: As listed on the chart PFSH: Per chart Vital signs: As listed on the chart. Reviewed. Physical exam: Gen: A&O x3, NAD Head: Normocephalic, atraumatic Eyes: No sclera icterus, conjunctiva clear ENT: Moist mucous membranes Neck: Trachea midline, No JVD CV: RRR, no murmurs, no peripheral edema Resp: Lungs CTA BL, no w/r/c GI: Abd soft, non-distended, non-tender, no r/r/g : No CVA tenderness Musc: Full ROM of all extremities except for the right lower extremity secondary to Ex-Fix. Right lower extremity is slightly more swollen compared to the left. It is tender to palpation diffusely. There is some slight erythema around the metal rods of the proximal Ex-Fix compared to the inferior portion. Patient is tender at this area. There is slight purulence/fibrotic tissue around the rods- patient states that this has been present for a month. No crepitus. No induration or fluctuance. No bullae or rash. Skin: Warm, dry Neuro: Alert, oriented, grossly intact, sensation intact Psych: Cooperative, appropriate mood and affect [facility] Medical History Wears glasses Post-menopausal Marijuana use History of steroid therapy Diabetes Walker as ambulation aid Low iron High cholesterol Back pain Injury of head and neck Migraine headache Heartburn Gastric reflux Non-smoker Leg cramps History of pain when walking History of edema History of stress test History of rheumatic fever Chest pain Bulging discs Glaucoma IBS (irritable bowel syndrome) Fibromyalgia Rheumatoid arthritis Home Medications ?Medication ?Instructions ?Recorded ?Last Taken ?Type atorvastatin 10 mg tablet 10 mg PO QHS cholestorol 05/14/14 08/25/22 History citalopram 40 mg tablet 40 mg PO DAILY anxiety 05/14/14 08/25/22 History cyclobenzaprine 10 mg tablet 10 mg PO TID Spasms 05/14/14 08/25/22 History latanoprost 0.005 % eye drops 1 drp EACH EYE QHS glaucoma 05/14/14 08/25/22 History prednisone 10 mg tablet 10 mg PO PRN PRN flare up 05/14/14 08/25/22 History sumatriptan succinate 50 mg tablet 50 mg PO .X1 PRN PRN Headache 05/14/14 08/25/22 History promethazine 25 mg rectal 25 mg PO PRN PRN Nausea 12/17/14 08/25/22 History suppository hyoscyamine sulfate 0.125 mg 0.125 mg SL Q4H PRN PRN Nausea 04/20/16 08/25/22 History sublingual tablet oxycodone-acetaminophen 7.5 mg-325 1 tab PO TID pain 04/20/16 08/25/22 History mg tablet buspirone 30 mg tablet 30 mg PO BID anxiety 12/20/17 08/25/22 History amitriptyline 10 mg tablet 10 mg PO QHS 03/25/20 08/25/22 History gabapentin 300 mg capsule 900 mg PO DAILY 03/25/20 08/25/22 History omeprazole 20 mg capsule,delayed 40 mg PO DAILY 03/25/20 08/25/22 History release upadacitinib 15 mg tablet,extended 15 mg PO DAILY 03/25/20 08/25/22 History release 24 hr (Rinvoq) lisinopril 10 mg tablet 10 mg PO DAILY 08/18/22 08/26/22 History metformin 500 mg tablet,extended 600 mg PO QHS 08/18/22 08/25/22 History release 24 hr buprenorphine 20 mcg/hour weekly 1 patch topical QWEEK 05/01/24 Unknown History transdermal patch cephalexin 500 mg capsule 500 mg PO BID 10 days #20 caps 06/24/24 Unknown Rx ondansetron 4 mg disintegrating 4 mg PO Q8H PRN PRN Nausea #10 tabs 06/24/24 Unknown Rx tablet sulfamethoxazole 800 1 tab PO BID 10 days #20 tabs 06/24/24 Unknown Rx mg-trimethoprim 160 mg tablet (Bactrim DS) Allergy/AdvReac Type Severity Reaction Status Date / Time adalimumab (From Humira) Allergy Vomiting Verified 06/24/24 13:24 cefaclor (From Ceclor) Allergy Unknown Verified 06/24/24 13:24 celecoxib (From Celebrex) Allergy Itching Verified 06/24/24 13:24 doxepin (Doxepin) Allergy Unknown Verified 06/24/24 13:24 doxycycline calcium (From Allergy Unknown Verified 06/24/24 13:24 Vibramycin) doxycycline hyclate (From Allergy Unknown Verified 06/24/24 13:24 Vibramycin) doxycycline monohydrate Allergy Unknown Verified 06/24/24 13:24 (From Vibramycin) hydrocodone bitartrate (From Allergy Unknown Verified 06/24/24 13:24 Vicodin) hydroxychloroquine Allergy Shortness Verified 06/24/24 13:24 (Hydroxychloroquine) of breath leflunomide (From Arava) Allergy Other Verified 06/24/24 13:24 prochlorperazine (From Allergy Shortness Verified 06/24/24 13:24 Compazine) of breath prochlorperazine edisylate Allergy Shortness Verified 06/24/24 13:24 (From Compazine) of breath prochlorperazine maleate Allergy Shortness Verified 06/24/24 13:24 (From Compazine) of breath sulfamethoxazole (From Allergy Unknown Verified 06/24/24 13:24 Septra) terfenadine (From Seldane) Allergy Unknown Verified 06/24/24 13:24 trazodone Allergy Other Verified 06/24/24 13:24 trimethoprim (From Septra) Allergy Unknown Verified 06/24/24 13:24 clarithromycin (From Biaxin) AdvReac Vomiting Verified 06/24/24 13:24 colestipol AdvReac Other Verified 06/24/24 13:24 dicyclomine HCl (From Bentyl) AdvReac Nausea/Vom/ Verified 06/24/24 13:24 Diarrhea doxycycline (From Vibramycin) AdvReac Nausea Verified 06/24/24 13:24 fentanyl AdvReac Nausea Verified 06/24/24 13:24 fexofenadine HCl (From AdvReac Other Verified 06/24/24 13:24 Jessica) golimumab (From Simponi) AdvReac Other Verified 06/24/24 13:24 hydrocodone AdvReac Vomiting Verified 06/24/24 13:24 hydroxychloroquine sulfate AdvReac Nausea Verified 06/24/24 13:24 (From Plaquenil) levofloxacin (From Levaquin) AdvReac Other Verified 06/24/24 13:24 methotrexate AdvReac Upset Verified 06/24/24 13:24 Stomach Sulfa (Sulfonamide AdvReac Vomiting Verified 06/24/24 13:24 Antibiotics) Family History (Updated 03/25/20 @ 13:12 by Aster Zafar) Mother Myocardial infarction Father Myocardial infarction Cancer Sister H/O Sjogren's disease Surgical History History of cholecystectomy History of arthroscopic knee surgery H/O tubal ligation Total knee replacement status History of appendectomy Social History household members: spouse housing: house pets and animals: Yes Smoking Status: Never smoker alcohol intake: never what type of physical activity do you participate in: none do you feel safe at home: Yes EXAM Physical Exam Const Vital Signs: 06/24/24 13:20 06/24/24 14:24 06/24/24 15:19 Temperature 98.9 F 98.8 F Temperature Source Oral Oral Pulse Rate 78 84 80 Respiratory Rate 16 17 18 Blood Pressure 95/82 H 127/63 H Blood Pressure Mean 86 84 Pulse Ox 97 97 96 Oxygen Delivery Method Room Air Room Air Room Air 06/24/24 16:00 06/24/24 18:00 Temperature Temperature Source Pulse Rate 82 81 Respiratory Rate 17 18 Blood Pressure Blood Pressure Mean Pulse Ox 98 Oxygen Delivery Method Room Air MDM MDM MDM Narrative Medical decision making narrative: 64-year-old female with past medical history of fibromyalgia, HLD, HTN, DM2 presents for evaluation of dysuria, right lower extremity pain, chest pain. Differential diagnosis is broad and includes UTI, electrolyte abnormality, NACHO, DVT, right lower extremity cellulitis, right lower extremity fracture, ACS, pneumonia, PE. Broad workup ordered. Morphine, Zofran, NS bolus ordered. EKG and chest x-ray reviewed see below. CBC with mild leukocytosis of 11.5. Patient has mild anemia of 10.1. Thrombocytopenia 462. Normal INR. D-dimer elevated at 1.14. Cannot fully rule out PE as a cause of her chest pain. CTA chest ordered. BMP relatively unremarkable except for mild hyponatremia. No NACHO. Lactic acid unremarkable. BNP unremarkable. Troponin x 2 unremarkable. Blood culture was obtained. UA positive for UTI. Rocephin ordered. Urine culture sent. Patient not having any abdominal pain or back pain therefore CT abdomen pelvis was not ordered. X-rays of the right lower extremity without fracture or dislocation. CTA chest negative for PE. At this point in time no clear etiology for patient's intermittent chest pain however given that this has been ongoing for several months patient needs to follow-up with her PCP. Her dysuria is secondary to UTI. Concern is for possible cellulitis/infection of the right lower extremity where the Ex-Fix is located. Patient's orthopedic surgeon Dr. Wylie was contacted and patient was discussed. He agrees with discharge home with a 10-day course of antibiotics. Patient has to follow-up in his office. Patient was updated of all results and confirmed understanding of plan. Patient will be placed on today course of Keflex and Bactrim. This will also cover for UTI. Patient was educated to follow-up with her PCP as well as orthopedic surgeon. Return precautions explained. She confirmed understand the plan. Patient stable discharge home. EKG: Interpreted by me/EM physician: EKG shows normal sinus rhythm without any acute ischemic changes. Heart rate 81. Diagnostic: Interpreted by me/EM physician: Chest x-ray without pneumonia, effusion, cardiomegaly, pneumothorax Impression: 1. UTI 2. Right lower extremity cellulitis due to orthopedic prosthesis 3. Episodic chest pain 3. Anemia Lab Data Labs: Laboratory Results - last 24 hr 12/30/24 12/30/24 12/30/24 14:50 15:20 16:07 WBC 11.5 H RBC 3.85 L Hgb 10.1 L Hct 32.2 L MCV 83.6 MCH 26.2 L MCHC 31.4 L RDW Std Deviation 44.1 H RDW Coeff of [place] 14.5 Plt Count 462 H MPV 10.7 Immature Gran % (Auto) 0.400 Neut % (Auto) 72.0 H Lymph % (Auto) 17.6 L [place] % (Auto) 9.1 Eos % (Auto) 0.6 Baso % (Auto) 0.3 Absolute Neuts (auto) 8.3 H Absolute Lymphs (auto) 2.02 Nucleated RBC % 0 PT 15.5 H INR 1.2 APTT 47.3 H D-Dimer Quant (PE/DVT) 1.14 H* Sodium 133 L Potassium 3.5 Chloride 99 Carbon Dioxide 26.0 Anion Gap 9 BUN 10 Creatinine 0.81 Estim Creat Clear Calc 76.83 Est GFR (MDRD) Af Amer 91 Est GFR (MDRD) Non-Af 75 BUN/Creatinine Ratio 12.3 Glucose 104 Lactic Acid 0.9 Calcium 8.7 Troponin I High Sens 4 B-Natriuretic Peptide 48.0 Urine Color Yellow Urine Clarity Sl. Cloudy Urine pH 6.5 Ur Specific [place] 1.010 Urine Protein 15 H Urine Glucose (UA) Normal Urine Ketones Negative Urine Occult Blood 25 H Urine Nitrite Negative Urine Bilirubin Negative Urine Urobilinogen Normal Ur Leukocyte Esterase 500 H Urine RBC 0 SEEN Urine WBC >100 SEEN Ur Squamous Epith Cells 0 SEEN Urine Bacteria 3+ Urine Mucus 0 SEEN 06/24/24 18:19 WBC RBC Hgb Hct MCV MCH MCHC RDW Std Deviation RDW Coeff of [place] Plt Count MPV Immature Gran % (Auto) Neut % (Auto) Lymph % (Auto) [place] % (Auto) Eos % (Auto) Baso % (Auto) Absolute Neuts (auto) Absolute Lymphs (auto) Nucleated RBC % PT INR APTT D-Dimer Quant (PE/DVT) Sodium Potassium Chloride Carbon Dioxide Anion Gap BUN Creatinine Estim Creat Clear Calc Est GFR (MDRD) Af Amer Est GFR (MDRD) Non-Af BUN/Creatinine Ratio Glucose Lactic Acid Calcium Troponin I High Sens 6 B-Natriuretic Peptide Urine Color Urine Clarity Urine pH Ur Specific [place] Urine Protein Urine Glucose (UA) Urine Ketones Urine Occult Blood Urine Nitrite Urine Bilirubin Urine Urobilinogen Ur Leukocyte Esterase Urine RBC Urine WBC Ur Squamous Epith Cells Urine Bacteria Urine Mucus Radiography Diagnostic Testing: Clinical Impression(s) from Imaging Studies Chest CTA 06/24/24 17:01 IMPRESSION: No evidence of pulmonary embolus. Electronically Signed: Phong Aaron MD at 18:01 EST , Chest X-Ray 06/24/24 17:05 IMPRESSION: No radiographic evidence of acute cardiopulmonary disease. Electronically Signed: Phong Aaron MD at 17:59 EST , Femur X-Ray 06/24/24 17:05 IMPRESSION: External fixation pins in the distal femur. There is a knee prosthesis in place. There is hardware across a fracture of the proximal tibia. Electronically Signed: Phong Aaron MD at 17:56 EST , Tibia/Fibula X-Ray 06/24/24 17:05 IMPRESSION: 1. ORIF in the proximal tibial fracture. Alignment is anatomic. 2. Stable knee prosthesis. External fixation pins are seen within the tibia. Electronically Signed: Phong Aaron MD at 17:59 EST , Discharge Plan Triage Chief Complaint: Complaint ED Provider: Rafael Martines Dx/Rx/DC Orders Clinical Impression: Acute UTI, Cellulitis of leg, right Instructions: Cellulitis Dc, ED UTIs Women Prescriptions: New ondansetron 4 mg tablet,disintegrating 4 mg PO Q8H PRN PRN (Reason: Nausea) Qty: 10 0RF sulfamethoxazole-trimethoprim [Bactrim DS] 800-160 mg tablet 1 tab PO BID 10 Days Qty: 20 0RF cephalexin 500 mg capsule 500 mg PO BID 10 Days Qty: 20 0RF No Action omeprazole 20 mg capsule,delayed release(DR/EC) 40 mg PO DAILY Patient Comments: TAKE 1 CAPSULE BY MOUTH TWICE DAILY. TAKE WITH NAPROXEN Rinvoq 15 mg tablet extended release 24 hr 15 mg PO DAILY gabapentin 300 mg capsule 900 mg PO DAILY amitriptyline 10 mg tablet 10 mg PO QHS cyclobenzaprine 10 MG tablet 10 mg PO TID Patient Comments: muscle relaxer citalopram 40 MG tablet 40 mg PO DAILY Patient Comments: depression atorvastatin 10 MG tablet 10 mg PO QHS Patient Comments: cholesterol latanoprost 1 DROP bottle 1 drp EACH EYE QHS Patient Comments: glaucoma prednisone 10 MG tablet 10 mg PO PRN PRN (Reason: flare up) Patient Comments: take for 3-5 days RA has not taken for several months Rx Instructions: take for 3-5 days for RA flare sumatriptan succinate 50 MG tablet 50 mg PO .X1 PRN PRN (Reason: Headache) Patient Comments: RA promethazine 25 MG suppository 25 mg PO PRN PRN (Reason: Nausea) Patient Comments: nausea hyoscyamine sulfate 0.125 MG tablet, sublingual 0.125 mg SL Q4H PRN PRN (Reason: Nausea) oxycodone-acetaminophen 1 EACH tablet 1 tab PO TID buspirone 30 MG tablet 30 mg PO BID lisinopril 10 mg tablet 10 mg PO DAILY metformin 500 mg tablet extended release 24 hr 600 mg PO QHS buprenorphine 20 mcg/hour patch weekly 1 patch topical QWEEK Primary Care Provider: David Parks Referrals: David Parks MD [Primary Care Provider] - Activity Restrictions/Additional Instructions: Follow-up with your primary care physician. Follow-up with your orthopedic surgeon. Return back to ED if symptoms change or worsen. Print Language: Kenyan Disposition Disposition: Home, Self Care Discharge Date/Time: 06/24/24 20:34
[2024-06-24 16:00] VITALS: PULSE 82; RESP 17
[2024-06-24] MEDS: 0.9% Normal Saline (1000mL) 1,000 ML 1000 ML IV (16:00)
[2024-06-24] MEDS: Morphine 4 MG/ML Syringe IV (16:00)
[2024-06-24] MEDS: Ondansetron 4 MG/2 ML Vial IV (16:29)
[2024-06-24 16:33] LABS: Absolute Lymphocyte Count 2.02 X10^3/uL (0.83-4.51); Absolute Neutrophil Count 8.3 X10^3/uL (2.0-7.7); Basophil# 0.03 X10^3/uL; Basophil% 0.3 % (0-1); Eosinophil# 0.07 X10^3/uL; Eosinophils% 0.6 % (0-5); Hematocrit 32.2 % (37-47); Hemoglobin 10.1 g/dL (12.0-15.0); Lymphocyte # 2.02 X10^3/ul (0.83-4.51); Lymphocyte % 17.6 % (19-41); Mean Corp Hgb Conc 31.4 g/dL (32-36); Mean Corpuscular Hgb 26.2 pg (27.0-32.0); Mean Corpuscular Volume 83.6 fL (81-99); Mean Platelet Vol. 10.7 fl (6.2-12.0); Monocyte# 1.04 X10^3/uL; Monocyte% 9.1 % (0-10); NRBC Flagged by Analyzer 0 % (0-5); Neutrophil # 8.26 X10^3/uL (2.7-7.7); Platelet Count 462 K/mm3 (150-450); RBC Distribution Width CV 14.5 % (11.6-14.6); RBC Distribution Width SD 44.1 fl (35.1-43.9); Red Blood Count 3.85 M/mm3 (4.2-5.4); White Blood Count 11.5 K/mm3 (4.4-11.0)
[2024-06-24 16:36] LABS: Anion Gap 9 (5-15); BUN 10 mg/dL (7-18); BUN/Creat Ratio 12.3 RATIO (10-20); Calcium,Total 8.7 mg/dL (8.5-10.1); Chloride 99 mmol/L (98-107); Creatinine, Serum 0.81 mg/dL (0.55-1.02); EST Glomerular Filtration Rate 75 mL/min (>60); Est Glom Filt Rate - Afr Amer 91 mL/min (>60); Estimated Creatinine Clearance 76.83 ml/min; Glucose 104 mg/dL (74-106); Potassium 3.5 mmol/L (3.5-5.1); Sodium Level 133 mmol/L (136-145); Troponin-I HS (w/2H Reflex) 4 pg/mL (3.0-54.0)
[2024-06-24 16:38] LABS: International Normalized Ratio 1.2; Partial Thromboplast Time 47.3 Seconds (24.1-36.2); Prothrombin Time (Protime)PT. 15.5 SECONDS (11.7-14.9)
[2024-06-24 16:46] LABS: Lactic Acid 0.9 mmol/L (0.4-1.9)
[2024-06-24 16:53] LABS: Bacteria 3+ /hpf (None Seen); White Blood Cells >100 SEEN /hpf (0-5)
[2024-06-24 17:00] LABS: D-Dimer Quantitative (DVT/PE) 1.14 FEU/ug/m (0.27-0.49)
--- NOTE | 2024-06-24 17:01 | CT_ITS ---
EXAM: CT ANGIOGRAPHY CHEST WITHOUT AND WITH INTRAVENOUS CONTRAST CLINICAL INDICATION: Chest pain, elevated D-dimer TECHNIQUE: Helically acquired angiography images were obtained of the chest without and with intravenous contrast. This CT exam was performed using one or more of the following dose reduction techniques: automated exposure control, adjustment of the mA and/or kV according to patient size, and/or use of iterative reconstruction technique. MIP reconstructed images were created and reviewed. CONTRAST: IV 100mL [id number] COMPARISON: No relevant prior studies available. FINDINGS: PULMONARY ARTERIES: Unremarkable. Normal in caliber. No evidence of pulmonary embolism. AORTA: Unremarkable. Normal in caliber. No evidence of dissection. GREAT VESSELS OF AORTIC ARCH: Unremarkable. Normal in caliber. No evidence of dissection. LUNGS AND PLEURAL SPACES: There is a calcified granuloma in the right lung base. There is some minimal scar or atelectasis in the right middle lobe. No mass. No pleural effusion or thickening. No pneumothorax. HEART: Unremarkable. Heart size is normal. No pericardial effusion. No significant coronary artery calcifications. MEDIASTINUM: Unremarkable. No mediastinal or hilar adenopathy. Esophagus is unremarkable. No hiatal hernia. THYROID: Unremarkable. No thyroid lesions. BONES/JOINTS: Unremarkable. No suspicious lytic or blastic abnormality. CT/CTA Chest W/WO Contrast IMPRESSION: No evidence of pulmonary embolus. Electronically Signed: Phong Aaron MD at 18:01 EST ,
--- NOTE | 2024-06-24 17:05 | RAD_ITS ---
EXAM: XR RIGHT TIBIA AND FIBULA, 2 VIEWS CLINICAL INDICATION: pain TECHNIQUE: Frontal and lateral views of the right tibia and fibula. COMPARISON: 05/01/2024 FINDINGS: BONES/JOINTS: There is an orthopedic sideplate and screws across a fracture the proximal tibia. Total knee prosthesis is in place. There are external fixation pins seen within the mid tibia. Preservation of the joint space. No sclerotic or destructive changes observed. SOFT TISSUES: Unremarkable. No soft tissue swelling or gas. No radiopaque foreign body. RAD/Tibia & Fibula 2 Views IMPRESSION: 1. ORIF in the proximal tibial fracture. Alignment is anatomic. 2. Stable knee prosthesis. External fixation pins are seen within the tibia. Electronically Signed: Phong Aaron MD at 17:59 EST ,
--- NOTE | 2024-06-24 17:05 | RAD_ITS ---
EXAM: XR CHEST, 2 VIEWS CLINICAL INDICATION: CP TECHNIQUE: Frontal and lateral views of the chest. COMPARISON: No relevant prior studies available. FINDINGS: LUNGS AND PLEURAL SPACES: Unremarkable. No consolidation or edema. No pneumothorax. No effusion. HEART: Unremarkable. Cardiac silhouette not enlarged. MEDIASTINUM: Central airways and mediastinal contour are unremarkable. BONES/JOINTS: Unremarkable. No acute fracture. SOFT TISSUES: Unremarkable. RAD/Chest PA and Lateral IMPRESSION: No radiographic evidence of acute cardiopulmonary disease. Electronically Signed: Phong Aaron MD at 17:59 EST ,
--- NOTE | 2024-06-24 17:05 | RAD_ITS ---
EXAM: XR RIGHT FEMUR, 2 VIEWS CLINICAL INDICATION: pain TECHNIQUE: Frontal and lateral views of the right femur. COMPARISON: No relevant prior studies available. FINDINGS: BONES/JOINTS: There is a total knee prosthesis. There is hardware across a fracture the proximal tibia. There are external fixation pins seen within the distal femur. Preservation of the joint space. No sclerotic or destructive changes observed. SOFT TISSUES: Unremarkable. No soft tissue swelling or gas. No radiopaque foreign body. RAD/Femur Min 2 Views IMPRESSION: External fixation pins in the distal femur. There is a knee prosthesis in place. There is hardware across a fracture of the proximal tibia. Electronically Signed: Phong Aaron MD at 17:56 EST ,
[2024-06-24] MEDS: Ceftriaxone 1 GM/50 ML BAG IV (17:36)
[2024-06-24 18:00] VITALS: PULSE 81; RESP 18; O2SAT 98
[2024-06-24 18:07] LABS: Reflex Troponin-HS? (from REC) Y
[2024-06-24 18:52] LABS: Troponin-I HS 6 pg/mL (3.0-54.0)
--- NOTE | 2024-06-28 08:16 | ED.RN ---
CALLED PT WITH HER BLOOD CULTURE RESULTS, PT AWARE SHE NEEDS TO COME BACK TO ER FOR TX
== END 2024-06-24 20:34 | disposition home or self-care (01) ==
PROVIDERS: Emergency Provider Surgery; PCP Family Medicine; Visit Provider Surgery
DX: N39.0 Urinary tract infection, site not specified (principal); E11.9 Type 2 diabetes mellitus without complications; D64.9 Anemia, unspecified; I10 Essential (primary) hypertension; E87.1 Hypo-osmolality and hyponatremia; L03.115 Cellulitis of right lower limb; D69.6 Thrombocytopenia, unspecified; E78.5 Hyperlipidemia, unspecified; R07.9 Chest pain, unspecified; Z90.49 Acquired absence of other specified parts of digestive tract; Z98.51 Tubal ligation status; R79.1 Abnormal coagulation profile; Z87.440 Personal history of urinary (tract) infections; T84.629A Infection and inflammatory reaction due to internal fixation device of unspecified bone of leg, initial encounter
CPT/HCPCS: 71046; 71275; 73552; 73590; 80048; 81001; 83605; 83880; 84484; 85025; 85379; 85610; 85730; 87040; 87077; 87086; 87088; 87149; 87186; 93005; 93971; 96361; 96365; 96375; 99285; Q9967; A4216; J2405

== ENCOUNTER → 2024-07-12 | Outpatient (CLI) | payer MEDICARE, SELFPAY ==
[2024-07-12 10:29] LABS: Absolute Lymphocyte Count 2.01 X10^3/uL (0.83-4.51); Absolute Neutrophil Count 3.4 X10^3/uL (2.0-7.7); Basophil# 0.04 X10^3/uL; Basophil% 0.7 % (0-1); Eosinophil# 0.22 X10^3/uL; Eosinophils% 3.6 % (0-5); Hemoglobin 10.1 g/dL (12.0-15.0); Lymphocyte # 2.01 X10^3/ul (0.83-4.51); Mean Corp Hgb Conc 29.7 g/dL (32-36); Mean Corpuscular Hgb 25.3 pg (27.0-32.0); Mean Corpuscular Volume 85.2 fL (81-99); Mean Platelet Vol. 10.6 fl (6.2-12.0); Monocyte# 0.42 X10^3/uL; Monocyte% 6.9 % (0-10); NRBC Flagged by Analyzer 0 % (0-5); Neutrophil % 55.6 % (47-70); Platelet Count 395 K/mm3 (150-450); RBC Distribution Width CV 15.5 % (11.6-14.6); RBC Distribution Width SD 48.8 fl (35.1-43.9); Red Blood Count 3.99 M/mm3 (4.2-5.4); White Blood Count 6.1 K/mm3 (4.4-11.0)
[2024-07-12 11:15] LABS: ALB/GLOB Ratio 0.7 RATIO (0.9-2.4); AST(SGOT) 19 U/L (15-37); Alanine Aminotransfer ALT/SGPT 12 U/L (13-56); Alkaline Phosphatase 102 U/L (45-117); Anion Gap 10 (5-15); BUN 13 mg/dL (7-18); BUN/Creat Ratio 11.7 RATIO (10-20); Calcium,Total 9.4 mg/dL (8.5-10.1); Chloride 101 mmol/L (98-107); Creatinine, Serum 1.11 mg/dL (0.55-1.02); EST Glomerular Filtration Rate 52 mL/min (>60); Est Glom Filt Rate - Afr Amer 63 mL/min (>60); Globulin 4.5 g/dL (2.2-4.2); Glucose 89 mg/dL (74-106); Potassium 4.1 mmol/L (3.5-5.1); Protein, Total 7.5 g/dL (6.4-8.2); Sodium Level 134 mmol/L (136-145)
== END | disposition home or self-care (01) ==
LOC: MTLAB 08:43
PROVIDERS: PCP Family Medicine; Referring Provider Internal Medicine Rheumatology; Visit Provider Internal Medicine Rheumatology
DX: M06.09 Rheumatoid arthritis without rheumatoid factor, multiple sites (principal); Z79.899 Other long term (current) drug therapy; M79.7 Fibromyalgia
CPT/HCPCS: 36415; 80053; 85025

== ENCOUNTER → 2024-09-06 | Outpatient (CLI) | payer MEDICARE, SELFPAY ==
[2024-09-06 10:23] LABS: Absolute Lymphocyte Count 2.23 X10^3/uL (0.83-4.51); Absolute Neutrophil Count 2.9 X10^3/uL (2.0-7.7); Basophil# 0.02 X10^3/uL; Basophil% 0.4 % (0-1); Eosinophil# 0.09 X10^3/uL; Eosinophils% 1.6 % (0-5); Hematocrit 36.5 % (37-47); Hemoglobin 11.3 g/dL (12.0-15.0); Lymphocyte # 2.23 X10^3/ul (0.83-4.51); Mean Corpuscular Hgb 25.6 pg (27.0-32.0); Mean Corpuscular Volume 82.8 fL (81-99); Mean Platelet Vol. 10.9 fl (6.2-12.0); Monocyte# 0.29 X10^3/uL; Monocyte% 5.2 % (0-10); NRBC Flagged by Analyzer 0 % (0-5); Neutrophil # 2.93 X10^3/uL (2.7-7.7); Neutrophil % 52.6 % (47-70); Platelet Count 257 K/mm3 (150-450); RBC Distribution Width CV 17.6 % (11.6-14.6); Red Blood Count 4.41 M/mm3 (4.2-5.4); White Blood Count 5.6 K/mm3 (4.4-11.0)
[2024-09-06 10:41] LABS: ALB/GLOB Ratio 1.3 RATIO (0.9-2.4); AST(SGOT) 23 U/L (<=31); Alanine Aminotransfer ALT/SGPT 10 U/L (<=34); Albumin, Serum 3.9 g/dL (3.4-4.8); Alkaline Phosphatase 89 U/L (35-104); Anion Gap 12 (5-15); BUN 11 mg/dL (4-19); BUN/Creat Ratio 12.1 RATIO (10-20); Calcium,Total 9.1 mg/dL (7.6-11.0); Chloride 103 mmol/L (98-108); EST Glomerular Filtration Rate 70 (>60); Globulin 3.1 g/dL (2.2-4.2); Glucose 84 mg/dL (70-99); Potassium 4.3 mmol/L (3.3-5.1); Sodium Level 138 mmol/L (133-145); Total Bilirubin 0.23 mg/dL (0.00-1.30)
== END | disposition home or self-care (01) ==
LOC: MTLAB 08:04
PROVIDERS: PCP Family Medicine; Referring Provider Internal Medicine Rheumatology; Visit Provider Internal Medicine Rheumatology
DX: M06.09 Rheumatoid arthritis without rheumatoid factor, multiple sites (principal); Z79.899 Other long term (current) drug therapy; M79.7 Fibromyalgia; M25.572 Pain in left ankle and joints of left foot
CPT/HCPCS: 36415; 80053; 85025

== ENCOUNTER 2024-10-03 13:00 | Outpatient (RCR) | payer MEDICARE, SELFPAY ==
--- NOTE | 2024-08-07 17:28 | HP.PTEVAL_ITS ---
Patient's Visit Information Visit Information Visit Information: ZACKERY NUNEZ is a 64 year old F referred to Physical Therapy by Jerardo Wylie MD with a diagnosis of periprosthetic fracture of R knee joint. Date of Evaluation: 08/07/24 Physical Therapist: Reuben Shields DPT Visit Plan Frequency: 2x /Week Duration: 8 weeks Plan: 1) R knee ROM, joint mobs, PROM and bike/nustep 2) RLE strengthening including: quads, HS, glutes and calves 3) gait with good mechanics, progressing to LRD. 4) stair negotiation 5) may use vaso/ice as need for edema control. Subjective Subjective: Pt. is here today for her initial evaluation with diagnosis of periprosthetic fracture of R knee joint. Pt. reports falling on May.01 through a deck boarding. She then had a external fixator placed on May 03. Pt. then at fixator placed on the . Pt. did have her external fixator removed in early Jun (Jul 02.). Pt. is now WBAT. Pt. to follow up on October 08. 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 Pt. is now okay to be WBAT without limitations. Pt. reports her pain is better, but has not ambulated much. Pt. reports trying to work on bending her knee at home. Pt. reports being full I with all activities. Pt. is hopeful to get back to being full I. Pt. reports not walking much at home without her at home due to being fearful of falling. Pt. would benefit from PT to increase ROM and strength of her RLE. Pain R knee: Pain Intensity (Out of 10): 5 Pain Intensity Range: 3 and 8 Objective Objective: POSTURE: Pt. has increased wt. shift to L side in stance. PALPATION: PT. has tenderness at medial R knee incision. No warm, no signs of infection. Pt. has well healing incision. Pt. reports no calf pain. ROM: R knee: PROM: 0-0-51deg. AROM 0-2-48deg. ROM measured in supine. Pt. has normal HS length in BLEs. MMT: RLE: knee: ext 18#, flexion 15#; hip flexion SLR x15 with minimal lag. LLE: knee: ext 28.3#, flexion 22.7#; hip; flexion 18.1# gait: Pt. ambulates with rollator with good stability. She does have decreased R knee flexion during swing. She has decent TKE during stance phase. Pt. reports fatigue with increased walking, but was able to ambulate 250' with GUTIERREZ. STAIRS: did not attempt this date. Sit to stand from chair: difficult due to inability to get enough R knee flexion to push up with. She is able to complete with increased effort. Balance/Special Test Scores Lower Extremity Functional Score: 12 Goals Goal 1:: LTG: Pt. to be I with HEP. Goal Time Frame: 4-6 Weeks Goal 2:: LTG: pt. to have increased R knee ROM to 0-0-90deg allowing for inc reased ability to complete functional mobility. Goal Time Frame: 4-6 Weeks Goal 3:: LTG: Pt. to be able to ambulate with LRD with normal gait pattern and safe independence. Goal Time Frame: 4-6 Weeks Goal 4:: LTG: Pt. to be able to complete 6 MWT with LRD with distance of at least 800feet indicating increased endurance and functional mobility. Goal Time Frame: 6-8 Weeks Goal 5:: LTG: pt. to complete sit to stand from standard chair without use of UEs. Goal Time Frame: 4-6 Weeks Goal 6:: LTG: pt. to be able to negotiate 1 flight of stairs with 2 HR allowing for increased ability to negotiate her home. Goal Time Frame: 4-6 Weeks Rehabilitation Potential Physical Therapy Diagnosis: Pt. has signs and symptoms consistent with malka prosthetic fracture of R knee joint. Pt. has marked hypomobility, weakness, and difficulty with walking/ADLs. pt. would benefit from PT to address the above limitations progressing back to all previous levels of function. Rehabilitation Potential: Good Anticipated Interventions Patient/Client Instruction: Educate patient on: Condition, Plan of Care, Risk Factors and Benefits of Fitness Program For the Purpose of:: To foster healthy habits, To improve decision making, To facilitate caregiver knowledge, To improve self management, To prevent re-injury and To improve ability to perform tasks related to life management Therapeutic Exercise to Include: Strength training, Power training, Endurance training, Balance training, Postural training, Flexibilty training, Gait and locomotor training, Passive ROM and Active ROM For the Purpose of:: To decrease pain, To increase ROM, To improve nutrient delivery to tissue, To increase oxygenation perfusion, To improve muscle performance and motor function, To improve ability to perform ADL's, To increase tolerance to activity/condition/position, To improve gait and locomotor functions, To improve health of tissue, To decrease soft tissue restriction and To increase flexibility/ROM Manual Therapy Techniques to Include: Mobilization and Soft tissue mobilization For the Purpose of:: To decrease pain, To decrease swelling/inflammation, To increase ROM, To improve nutrient delivery to tissue and To increase oxygenation perfusion Cryotherapy (ice pack, ice massage): Yes Vasopneumatic device: Yes For the Purpose of:: To decrease pain, To decrease swelling/inflammation, To increase ROM, To improve nutrient delivery to tissue, To increase oxygenation perfusion and To improve muscle performance and motor function Text: Thank you for the opportunity to evaluate your patient. For Medicare and Medicare HMO plans, please review the plan of care and approve it. It will need to be FAXED BACK to us at [phone] for Medicare purposes. For Medicare only, by signing this I certify the plan of care. Please let me know if there are questions or concerns regarding this plan of care. Physician Signature: Date:
--- NOTE | 2024-10-03 13:56 | HP.PTREVAL_ITS ---
Re-Evaluation Intro: Jerardo Wylie MD, It has been my pleasure to treat ZACKERY NUNEZ over the last 16 visits for periprosthetic fracture of R knee joint. Please see the progress note below for an update on the physical therapy plan of care! Subjective Subjective: Pt. reports being 95% better overall. Pt. reports having some difficulty with going up and down her stairs. Pt. is pleased with her progress and is pleased with her ability to ambulate. Objective Objective/Function: AROM: 0-0-86deg, PROM 0-0-90deg. MMT: LLE: hip: flexion 36.5#, abd 20.7#; knee: ext 45.7#, flexion 31.2# RLE: hip: flexion 25.5#, abd 16.9#; knee: ext 37.3#, flexion 25# PT. is walking with a SPC now with decent pattern, no increase in her baseline pain. TUG: with SPC 12.13, 10.4 without AD GAIT: pt. ambulates well with SPC. Good technique noted. Pt. Sligh increase in lateral lean to L side. STAIRS: Pt. is able to ascend with 1 HR with reciprocal pattern, a little bit more difficult on the R side. Plan Plan Plan: Pt is going to trial exercises on her own for 2-3 weeks prior to seeing physician. Pt. is able to come back in if not progressing or having issues. We will be in contact after her visit with her physician. Balance/Gait/Functional tests Balance/Special Test Scores Lower Extremity Functional Score: 26 TUG Test Time Seconds: 10.4 Tug Test: <20 sec.=mostly independent 30 Second Chair Rise Test Seconds: 12 6 Minute Walk Test: 1051 Goals Goals Goal 1:: LTG: Pt. to be I with HEP. Goal Time Frame: 4-6 Weeks Goal Progress: Goal Met Goal 2:: LTG: pt. to have increased R knee ROM to 0-0-90deg allowing for incre ased ability to complete functional mobility. Goal Time Frame: 4-6 Weeks Goal Progress: Goal Met Goal 3:: LTG: Pt. to be able to ambulate with LRD with normal gait pattern and safe independence. Goal Time Frame: 4-6 Weeks Goal Progress: Goal Met Goal 4:: LTG: Pt. to be able to complete 6 MWT with LRD with distance of at least 800feet indicating increased endurance and functional mobility. Goal Time Frame: 6-8 Weeks Goal Progress: Goal Met Goal 5:: LTG: pt. to complete sit to stand from standard chair without use of UEs. Goal Time Frame: 4-6 Weeks Goal Progress: Goal Met Goal 6:: LTG: pt. to be able to negotiate 1 flight of stairs with 2 HR allowing for increased ability to negotiate her home. Goal Time Frame: 4-6 Weeks Goal Progress: Goal Met Anticipated Interventions Anticipated Interventions Patient/Client Instruction: Educate patient on: Condition, Plan of Care, Risk Factors and Benefits of Fitness Program For the Purpose of:: To foster healthy habits, To improve decision making, To facilitate caregiver knowledge, To improve self management, To prevent re-injury and To improve ability to perform tasks related to life management Therapeutic Exercise to Include: Strength training, Power training, Endurance training, Balance training, Postural training, Flexibilty training, Gait and locomotor training, Passive ROM and Active ROM For the Purpose of:: To decrease pain, To increase ROM, To improve nutrient delivery to tissue, To increase oxygenation perfusion, To improve muscle performance and motor function, To improve ability to perform ADL's, To increase tolerance to activity/condition/position, To improve gait and locomotor functions, To improve health of tissue, To decrease soft tissue restriction and To increase flexibility/ROM Manual Therapy Techniques to Include: Mobilization and Soft tissue mobilization For the Purpose of:: To decrease pain, To decrease swelling/inflammation, To increase ROM, To improve nutrient delivery to tissue and To increase oxygenation perfusion Cryotherapy (ice pack, ice massage): Yes Vasopneumatic device: Yes For the Purpose of:: To decrease pain, To decrease swelling/inflammation, To increase ROM, To improve nutrient delivery to tissue, To increase oxygenation perfusion and To improve muscle performance and motor function Re-Evaluation Ending Re-evaluation ending: Please do not hesitate to contact me at [phone] by phone or if you have questions or concerns regarding this new plan of care! Sincerely, Reuben Shields DPT
== END 2024-10-03 19:00 | disposition home or self-care (01) ==
LOC: PT 13:00
PROVIDERS: PCP Family Medicine; Referring Provider Student in an Organized Health Care Education/Training Program; Visit Provider Student in an Organized Health Care Education/Training Program
DX: M97.11XD 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, subsequent encounter (principal)
CPT/HCPCS: 97016; 97110; 97140; 97161; 97530

== ENCOUNTER → 2024-10-30 | Outpatient (CLI) | payer MEDICARE, SELFPAY ==
--- NOTE | 2024-10-30 15:03 | RAD_ITS ---
PROCEDURE: KNEE 1 OR 2 VIEWS 10/30/2024 REASON FOR EXAM: BILAT KNEE OA TECHNIQUE: 2 view(s) of the right knee COMPARISON: Right knee x-ray dated 06/24/2024. FINDINGS: Right knee hardware from right knee arthroplasty and ORIF in place. On the lateral view, lucency remains extending into the tibial plateau. Lucency seen through the patella bone. These could represent areas of nonhealing fracture. No suprapatellar joint effusion is seen. RAD/Knee 1 or 2 Views IMPRESSION: As above. Reading Location: [facility]
--- NOTE | 2024-10-30 15:03 | RAD_ITS ---
PROCEDURE: KNEE 1 OR 2 VIEWS 10/30/2024 REASON FOR EXAM: B/L KNEE OA TECHNIQUE: Two views left knee COMPARISON: None available FINDINGS: No fracture or dislocation. Medial and lateral compartment joint spaces appear within limits. Mild spurring at the tibial spines. Severe joint space narrowing suggested of the patellofemoral compartment with [id number] appearing contact, buttressing and large osteophyte formation. Enthesopathic change at the quadriceps side of the patella. Possible small joint effusion. RAD/Knee 1 or 2 Views IMPRESSION: Severe appearing osteoarthrosis of the patellofemoral compartment as above. Reading Location: [id number]
== END | disposition home or self-care (01) ==
LOC: RAD 15:00
PROVIDERS: PCP Family Medicine; Referring Provider Anesthesiology Pain Medicine; Visit Provider Anesthesiology Pain Medicine
DX: M17.0 Bilateral primary osteoarthritis of knee (principal)
CPT/HCPCS: 73560

== ENCOUNTER → 2024-11-27 | Outpatient (CLI) | payer MEDICARE, SELFPAY ==
[2024-11-27 21:13] LABS: Amphetamine Urine NEGATIVE (<1000 ng/mL); Barbiturate Urine NEGATIVE (< 200 ng/mL); Benzodiazepine Urine NEGATIVE (< 200 ng/mL); Buprenorphine Urine NEGATIVE (< 200 ng/mL); Cocaine Urine NEGATIVE (< 300 ng/mL); Fentanyl, Urine NEGATIVE; Methadone Urine NEGATIVE (< 300 ng/mL); Opiates Urine NEGATIVE (< 300 ng/mL); Oxycodone, Urine PRESUMPTIVE POSITIVE (< 100 ng/mL); PCP Urine NEGATIVE (< 25 ng/mL); THC Urine NEGATIVE (< 50 ng/mL)
--- OUTSIDE RECORDS SUMMARY | 2024-11-27 22:00 | XMS RPT_ITS | CCD ---
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 Mikayla Strange Primary Care Provider Dr. Mikayla Strange Referring Provider Dr. Mikayla Strange Other Provider Dr. Mati Magallon Attending Provider Mikayla Strange MD Primary Care Provider iMkayla Strange MD Primary Care Provider Mikayla Strange MD Primary Care Provider Mikayla Strange MD Primary Care Provider Haagen PET RESORT CONCIERGE.MATH AND SCIENCES DEPARTMENT CHAIR, Sayda Unavailable Suppan PET RESORT CONCIERGE.MATH AND SCIENCES DEPARTMENT CHAIR, Ginger A Unavailable [phone] Suppan PET RESORT CONCIERGE.MATH AND SCIENCES DEPARTMENT CHAIR, Ginger A Unavailable Suppan PET RESORT CONCIERGE.MATH AND SCIENCES DEPARTMENT CHAIR, Ginger A Unavailable [phone] Dr. Mikayla Strange MD Primary Care Provider Dr. Rafael Martines DO Attending Provider Dr. Rafael Martines DO Emergency Provider Dr. Eliel Andujar MD Attending Provider Dr. Rafael Martines DO Referring Provider Dr. Smita Buck MD Attending Provider Cielo SARGENT, Dr. Ordoñez Referring Provider Rosaline SARGENT, Sydni Sullivan Attending Provider [phone] Rosaline SARGENT, Sydni Sullivan Referring Provider HUNTER, MIKAYLA Valencia Attending Unavailable HUNTER, MIKAYLA Valencia Primary Care Unavailable HUNTER, MIKAYLA Valencia Primary Care Unavailable HUNTER, MIKAYLA Valencia Attending Unavailable HUNTER, MIKAYLA J Primary Care Unavailable HUNTER, MIKAYLA J Primary Care Unavailable SAYDA CARR Attending Unavailable HUNTER, MIKAYLA J Primary Care Unavailable HUNTER, MIKAYLA J Referring Unavailable HUNTER, MIKAYLA J Primary Care Unavailable HUNTER, MIKAYLA J Referring Unavailable HUNTER, MIKAYLA J Primary Care Unavailable HUNTER, MIKAYLA J Referring Unavailable HUNTER, MIKAYLA J Primary Care Unavailable HUNTER, MIKAYLA J Referring Unavailable HUNTER, MIKAYLA J Primary Care Unavailable HUNTER, MIKAYLA Valencia Referring Unavailable HUNTER, MIKAYLA Valencia Primary Care Unavailable KD STOCKTON Attending Unavailable HUNTER, MIKAYLA Valencia Referring Unavailable HUNTER, MIKAYLA Valencia Primary Care Unavailable HUNTER, MIKAYLA Valencia Attending Unavailable HUNTER, MIKAYLA Valencia Primary Care Unavailable HUNETR, MIKAYLA Valencia Referring Unavailable HUNTER, MIKAYLA Valencia Primary Care Unavailable HUNTER, MIKAYLA Valencia Attending Unavailable HUNTER, MIKAYLA Valencia Primary Care Unavailable Hunter , Dr. Hernandez Primary Care Provider Rosaline SARGENT, Sydni Sullivan Attending Provider Sydni Waggoner MD Referring Provider [phone] Sylvia SARGENT, Dr. Jeffery Attending Provider Dr. Latia Ward MD Referring Provider Hunter SARGENT, Dr. Hernandez Primary Care Provider [phone] Dr. Smita Buck MD Attending Provider Dr. Smita Buck MD Referring Provider Dr. Mikayla Strange MD Referring Provider Dr. Martir Carlin DO Attending Provider Sherita SARGENT, Dr. Thorne Attending Provider [phone] Kadi Brush Attending Provider [place], Mikayla Primary Care Unavailable Vellanki, Smita Attending Unavailable Vellanki, Smita Referring Unavailable [place], Mikayla Primary Care Unavailable Sydni Waggoner Attending Unavaila Sydni Spaulding Referring Unavaila Eliel Kan Attending Unavailable [place], Mikayla Primary Care Unavailable Basali, Latia Attending Unavailable Basali, Ayman Referring Unavailable [place], Mikayla Primary Care Unavailable Mati Magallon Attending Unavailable [place], Mikayla Primary Care Unavailable Hunter, Mikayla Referring Unavailable Hunter, Mikayla Primary Care Unavailable Kadi Gonzalez Attending Unavailable SheritaMati rock Attending Unavailable [place], Mikayla Primary Care Unavailable Hunter, Mikayla Primary Care Unavailable Eliel Andujar Attending Unavailable Rafael Martines Referring Unavailabl Martir Aguilar Attending Unavailable [place], Mikayla Referring Unavailable [place], Mikayla Primary Care Unavailable [place], Mikayla Primary Care Unavailable Vellanstu, Smita Attending Unavailable Familialanki, Smita Referring Unavailable [place], Mikayla Primary Care Unavailable Vellanki, Smita Attending Unavailable Familialanki, Smita Referring Unavailable [place], Mikayla Primary Care Unavailable Familialanki, Smita Referring Unavailable FamilialanSmita peraza Attending Unavailable Basali, Latia Referring Unavailable [place], Mikayla Primary Care Unavailable Basalmonica, Latia Attending Unavailable [place], Mikayla Primary Care Unavailable Rafael Martines Attending Unavailabl e HUNTER, [facility] Primary Care Unavailable RICKEY CROW Attending Unavailable SYDNI WAGGONER Consulting Unavailable GA BLACKBURN Attending Unavailable HUNTER, MIKAYLA J Primary Care Unavailable SYDNI WAGGONER Attending Unavailable HUNTER, MIKAYLA J Primary Care Unavailable SYDNI WAGGONER Attending Unavailable HUNTER, MIKAYLA J Primary Care Unavailable SYDNI WAGGONER Attending Unavailable HUNTER, MIKAYLA J Primary Care Unavailable HUNTER, MIKAYLA J Primary Care Unavailable SYDNI WAGGONER Admitting Unavailable SYDNI WAGGONER Attending Unavailable SYDNI WAGGONER Referring Unavailable HUNTER, MIKAYLA J Primary Care Unavailable HUNTER, MIKAYLA J Primary Care Unavailable Allergies Allergy Classification Reported Allergen(s) Allergy Type Date of Onset Reaction(s) Facility Acetaminophen / HYDROcodone (1 source) Acetaminophen / HYDROcodone Drug Allergy Intolerance [facility] adalimumab (1 source) adalimumab Drug Allergy Intolerance [facility] Amoxicillin / Clavulanate (1 source) Amoxicillin / Clavulanate Drug Allergy Intolerance [facility] Anticholinergics (1 source) Dicyclomine Drug Allergy GI Upset [facility] Cephalosporins (antibiotic) (1 source) Cefaclor Drug Allergy Intolerance [facility] Colestipol (1 source) Colestipol Drug Allergy Other: See Comments [facility] Doxepin (1 source) Doxepin Drug Allergy Intolerance [facility] Doxycycline (1 source) Doxycycline Drug Allergy Intolerance [facility] fexofenadine (1 source) fexofenadine Drug Allergy Intolerance [facility] Hydroxychloroquine (1 source) Hydroxychloroquine Drug Allergy Intolerance [facility] Macrolides (antibiotic) (1 source) Clarithromycin Drug Allergy Intolerance [facility] metFORMIN (1 source) metFORMIN Drug Allergy 024 GI Upset [facility] Work Phone: NSAIDs (1 source) celecoxib Drug Allergy Intolerance [facility] Opioid Agonists (1 source) fentaNYL Drug Allergy Intolerance [facility] Prochlorperazine (1 source) Prochlorperazine Drug Allergy Intolerance [facility] Quinolones (antibiotic) (1 source) levoFLOXacin Drug Allergy Intolerance [facility] Sulfamethoxazole / Trimethoprim (1 source) Sulfamethoxazole / Trimethoprim Drug Allergy Intolerance [facility] Sulfonamides (antibiotic) (1 source) Sulfonamides (Antibiotic) Drug Allergy Intolerance [facility] Terfenadine (1 source) Terfenadine Drug Allergy Intolerance [facility] (2 sources) acetaminophen / HYDROcodone drug allergy 013 [facility] Work Phone: [phone] (2 sources) amoxicillin / clavulanate drug allergy 017 [facility] Work Phone: [phone] (4 sources) cefaclor; Translations: [CEFACLOR] drug allergy [facility] Work Phone: [phone] (2 sources) clarithromycin drug allergy [facility] Work Phone: [phone] (2 sources) doxycycline drug allergy [facility] Work Phone: [phone] (2 sources) fexofenadine drug allergy [facility] Work Phone: [phone] (2 sources) levoFLOXacin drug allergy [facility] Work Phone: [phone] (2 sources) prochlorperazine drug allergy [facility] Work Phone: [phone] (4 sources) sulfamethoxazole / trimethoprim; Translations: [SULFAMETHOXAZOLE-TR IMETHOPRIM] drug allergy 015 [facility] Work Phone: [phone] (2 sources) sulfamethoxazole / trimethoprim drug allergy [facility] Work Phone: [phone] (2 sources) Sulfonamides (Antibiotic) drug allergy [facility] Work Phone: [phone] (20 sources) terfenadine; Translations: [SELDANE] drug allergy Intolerance [facility] Work Phone: [phone] (4 sources) TRINILIN; Translations: [TRINILIN] food allergy [facility] Work Phone: [phone] (2 sources) DOXEPINE drug allergy [facility] Work Phone: [phone] (2 sources) TRINALIN; Translations: [TRINALIN] food allergy [facility] Work Phone: [phone] (2 sources) 12 HOUR DECONGESTANT drug allergy 017 [facility] Work Phone: [phone] (20 sources) Acetaminophen / HYDROcodone; Translations: [HYDROCODONE-ACETAMI NOPHEN] Drug Allergy Intolerance [facility] Work Phone: (20 sources) adalimumab; Translations: [ADALIMUMAB] Drug Allergy Intolerance [facility] Work Phone: (20 sources) Amoxicillin / Clavulanate; Translations: [AMOXICILLIN-POT CLAVULANATE] Drug Allergy Intolerance [facility] Work Phone: (20 sources) Cefaclor Drug Allergy Intolerance [facility] Work Phone: (20 sources) celecoxib; Translations: [CELECOXIB] Drug Allergy Intolerance [facility] Work Phone: (20 sources) Clarithromycin; Translations: [CLARITHROMYCIN] Drug Allergy Intolerance [facility] Work Phone: (20 sources) Colestipol; Translations: [COLESTIPOL] Drug Allergy Other: See Comments [facility] Work Phone: (20 sources) Dicyclomine; Translations: [DICYCLOMINE HCL] Drug Allergy GI Upset [facility] (20 sources) Doxepin; Translations: [DOXEPIN] Drug Allergy Intolerance [facility] Work Phone: (20 sources) Doxycycline; Translations: [DOXYCYCLINE CALCIUM] Drug Allergy Intolerance [facility] Work Phone: (20 sources) fentaNYL; Translations: [FENTANYL] Drug Allergy Intolerance [facility] Work Phone: (20 sources) fexofenadine; Translations: [FEXOFENADINE HCL] Drug Allergy Intolerance [facility] Work Phone: (20 sources) Hydroxychloroquine; Translations: [HYDROXYCHLOROQUINE SULFATE] Drug Allergy Intolerance [facility] Work Phone: (20 sources) levoFLOXacin; Translations: [LEVOFLOXACIN] Drug Allergy Intolerance [facility] Work Phone: (20 sources) Prochlorperazine; Translations: [PROCHLORPERAZINE EDISYLATE] Drug Allergy Intolerance, Other: See Comments [facility] Work Phone: (20 sources) Sulfamethoxazole / Trimethoprim Drug Allergy Intolerance [facility] Work Phone: (20 sources) Sulfonamides (Antibiotic); Translations: [SULFA (SULFONAMIDE ANTIBIOTICS)] Drug Allergy Intolerance [facility] Work Phone: [phone] (17 sources) Doxycycline; Translations: [doxycycline hyclate] Drug Allergy Unknown [facility] (17 sources) Doxycycline; Translations: [doxycycline monohydrate] Drug Allergy Unknown [facility] (16 sources) Doxycycline Drug Allergy 019 Nausea [facility] (16 sources) golimumab Drug Allergy Other [facility] Comment on above: PALPITATIONS (17 sources) HYDROcodone; Translations: [hydrocodone bitartrate] Drug Allergy 018 Unknown [facility] (16 sources) HYDROcodone Drug Allergy 018 Vomiting [facility] (16 sources) Hydroxychloroquine Drug Allergy Shortness of breath [facility] (16 sources) leflunomide Drug Allergy Other [facility] Comment on above: FACE TWITCHING (16 sources) Methotrexate Drug Allergy 018 Upset Stomach [facility] (16 sources) Prochlorperazine Drug Allergy Shortness of breath [facility] (17 sources) Prochlorperazine; Translations: [prochlorperazine maleate] Drug Allergy Shortness of breath [facility] (16 sources) Sulfamethoxazole Drug Allergy 018 Unknown [facility] (16 sources) Terfenadine Drug Allergy 018 Unknown [facility] (16 sources) traZODone Drug Allergy Other [facility] Comment on above: HYPOTENSION, difficu lty swallowing (16 sources) Trimethoprim Drug Allergy Unknown [facility] (8 sources) TRINILLIN Allergy to substance Unknown [facility] (13 sources) Sulfonamides (Antibiotic) Propensity to adverse reactions Vomiting [facility] (20 sources) metFORMIN; Translations: [METFORMIN] Drug Allergy GI Upset [facility] (1 source) adalimumab Drug Allergy [facility] Repository (1 source) Cefaclor Drug Allergy [facility] Repository (1 source) celecoxib Drug Allergy [facility] Repository (1 source) Clarithromycin Drug Allergy [facility] Repository (1 source) Colestipol Drug Allergy [facility] Repository (1 source) Dicyclomine Drug Allergy [facility] Repository (1 source) Doxepin Drug Allergy [facility] Rep[facility] (1 source) Doxycycline Drug Allergy [facility] Repository (1 source) Doxycycline Drug Allergy [facility] (1 source) fentaNYL Drug Allergy [facility] Repository (1 source) fexofenadine Drug Allergy [facility] Repository (1 source) golimumab Drug Allergy [facility] Repository (1 source) HYDROcodone Drug Allergy [facility] Repository (1 source) Hydroxychloroquine Drug Allergy [facility] Repository (1 source) Hydroxychloroquine Drug Allergy [facility] Repository (1 source) leflunomide Drug Allergy [facility] Repository (1 source) levoFLOXacin Drug Allergy [facility] Repository (1 source) Methotrexate Drug Allergy [facility] Repository (1 source) Prochlorperazine Drug Allergy [facility] Repository (1 source) Prochlorperazine Drug Allergy [facility] Repository (1 source) Sulfamethoxazole Drug Allergy [facility] Repository (1 source) Sulfonamides (Antibiotic) Drug allergy (disorder) [facility] Repository (1 source) Terfenadine Drug Allergy [facility] Rep[facility] (1 source) traZODone Drug Allergy [facility] Repository (1 source) Trimethoprim Drug Allergy [facility] Repository Medications Current Medications Medication Drug Class(es) Dates Sig (Normalized) Sig (Original) acetaminophen 325 mg oral tablet (20 sources) Start: 05-09-2024 take 2 tablets by mouth every six hours as needed acetaminophen (TYLENOL) 325 mg tablet Take 2 tablets by mouth every 6 hours as needed for pain. 05/09/2024 Active acetaminophen 325 mg / oxyCODONE hydrochloride 5 mg oral tablet (20 sources) Opioid Agonist Start: 01-10-2022 take 1 tablet by mouth every eight hours as needed oxyCODONE-acetamino phen (PERCOCET) 5-325 mg tablet 1 tablet three times daily as needed. 01/10/2022 Active Start: 01-10-2022 oxyCODONE-acet aminophen (PERCOCET) 5-325 mg tablet Start: 01-10-2022 take 1 tablet by agnes th twice daily oxyCODONE-acetaminophen (PERCOCET) 5-325 mg tablet TAKE 1 TABLET BY MOUTH TWICE DAILY FOR 17 DAYS 0 01/10/2022 Active Start: 04-20-2016 End: 09-17-2021 Oxycodone-Acetaminophen 1 EA CH tablet Active 1 {tbl} PO THREE TIMES A DAY April 20, 2016 12:00am Start: 04-20-2016 take 1 tablet by agnes th three times daily Oxycodone-Acetaminophen Active 1 TABLET PO THREE TIMES A DAY April 19, 2016 11:00pm Start: 04-24-2014 End: 04-30-2014 Oxycodone-Acetaminophen 1 TA BLET tablet Discontinued 1 - 2 {tbl} PO EVERY 6 HOURS NEEDED as needed for Pain April 24, 2014 12:00am April 30, 2014 3:54pm Start: 04-24-2014 End: 04-30-2014 take 1 tablet by mouth every six hours as needed Oxycodone-Acetaminophen Discontinued 1 - 2 TABLET PO EVERY 6 HOURS NEEDED April 23, 2014 11:00pm April 30, 2014 2:54pm Comment on above: Take 1 tablet by agnes three times daily. TAKE 1 TABLET BY AGNES TWICE DAILY FOR 17 DAYS 1 tablet three times daily as needed. amitriptyline hydrochloride 10 mg oral tablet (20 sources) Tricyclic Antidepressant Start: take 1 tablet by mouth once daily at bedtime amitriptyline (ELAVIL) 10 mg tablet Indications: DDD (degenerative disc disease), lumbar Take 1 tablet by mouth daily at bedtime. 02/25/2020 Active Comment on above: Take 1 tablet by agnes daily at bedtime. atorvastatin 10 mg oral tablet (20 sources) HMG-CoA Reductase Inhibitor Start: 014 End: take 1 tablet by mouth once daily atorvastatin (LIPITOR) 10 mg tablet Take 1 tablet by mouth once daily. 90 tablet 3 02/05/2024 Active Comment on above: Take 1 tablet by agnes once daily. 168 hr buprenorphine 0.02 mg/hr transdermal system (20 sources) Partial Opioid Agonist Start: buprenorphine (BUTRANS) 20 mcg/hour transdermal patch Indications: Degeneration of intervertebral disc of lumbar region, unspecified whether pain present , Other chronic pain Apply 1 Patch as directed one time a week for 7 days. Last APPLIED 05/08 1 Patch 05/08/2024 Active Start: 05-01-2024 apply 20 ug topically every we ek Buprenorphine 20 mcg/hour patch weekly Active 1 NMA TOPICAL EVERY WEEK May 01, 2024 1:00am Start: 12-30-2021 apply 1 dose transde rmal route every week buprenorphine 20 mcg/hour ptwk APPLY 1 PATCH TOPICALLY ONCE A WEEK FOR 4 WEEKS 12/30/2021 Active Start: 03-25-2020 End: 05-01-2024 apply 15 ug topically every week Buprenorphine 15 mcg/ hour patch weekly Discontinued 1 NMA TOPICAL EVERY WEEK March 25, 2020 12:00am May 01, 2024 9:58pm CHANGED ON MONDAY Start: 01-20-2020 End: 09-17-2021 apply 1 dose transdermal route every week buprenorphine (BUTRANS) 15 mcg/hour patch Apply 1 Patch as directed one time a week. 0 01/20/2020 09/17/2021 Discontinued Start: 12-20-2017 End: 03-25-2020 apply 10 ug transdermal route every hour Buprenorphine 1 EACH patch weekly Discontinued 1 NMA TD EVERY WEEK December 20, 2017 12:00am March 25, 2020 1:19pm patient uses 10 mcg/hour patch, changes on Monday Start: 05-14-2014 End: 07-10-2014 apply 1 dose transdermal route every week Buprenorphine (Butrans 20 Mcg/Hr) 1 EACH Patch.Tdwk Discontinued 1 NMA TD EVERY WEEK May 14, 2014 1:00am July 10, 2014 10:01am Start: 05-14-2014 End: 07-10-2014 apply 1 dose transdermal route every week Buprenorphine (Butrans 20 Mcg/Hr) 1 EACH Patch.Tdwk Discontinued 1 EACH TD EVERY WEEK May 14, 2014 12:00am July 10, 2014 9:01am Start: 04-11-2014 BUTRANS 20 MCG /HR PTWK change once weekly BUPRENORPHINE [id number] Kiara Tobias Giang Start: 04-11-2014 BUTRANS 20 MCG /HR PTWK change once weekly BUPRENORPHINE [id number] Ikara Tobias Giang Comment on above: Apply 1 Patch as dir ected one time a week. APPLY 1 PATCH TOPICA LLY ONCE A WEEK FOR 4 WEEKS busPIRone hydrochloride 30 mg oral tablet (20 sources) Start: 8 End: 4 take 1 tablet by mouth twice daily busPIRone HCl 30 mg tablet Indications: Panic disorder Take 1 tablet by mouth two times a day. 180 tablet 3 02/05/2024 Active Comment on above: Take 1 tablet by [facility] twice daily. calcium polycarbophil (20 sources) CALCIUM POLYCARB OPHIL (FIBER LAXATIVE ORAL) Take by mouth. Active CALCIUM POLYCARB OPHIL (FIBER LAXATIVE ORAL) Take by mouth. 0 Active Comment on above: Take by mouth. cephalexin 500 mg oral capsule (9 sources) Cephalosporin Antibacterial Start: 5 End: 5 take 1 capsule by mouth four times daily cephALEXin (KEFLEX) 500 mg capsule Take 1 capsule by mouth four times daily for 7 days. 28 capsule 06/30/2024 07/07/2024 Active Start: 06-24-2024 End: 11-11-2024 take 1 capsule by mouth twice daily Cephalexin 500 mg capsule Discontinued 500 mg PO TWICE A DAY 14 04June 24, 2024 1:00am November 11, 2024 1:26pm ciprofloxacin 250 mg oral tablet (4 sources) Quinolone Antimicrobial Start: 08-19-2024 End: 08-26-2024 take 1 tablet by mouth twice daily ciprofloxacin HCl (CIPRO) 250 mg tablet Take 1 tablet by mouth two times a day for 7 days. 14 tablet 08/19/2024 08/19/2024 Discontinued Start: 02-20-2024 End: 02-27-2024 take 1 tablet by mouth twice daily ciprofloxacin HCl (CIPRO) 250 mg tablet Indications: Urinary tract infection with hematuria, site unspecified Take 1 tablet by mouth two times a day for 7 days. 14 tablet 02/20/2024 02/27/2024 Active Start: 04-19-2022 End: 04-24-2022 take 1 tablet by mouth twice daily ciprofloxacin HCl (CIPRO) 500 mg tablet Take 1 tablet by mouth twice daily for 5 days. 10 tablet 0 04/19/2022 04/24/2022 Active Comment on above: Take 1 tablet by agnes th twice daily for 5 days. citalopram 40 mg oral tablet (20 sources) Serotonin Reuptake Inhibitor Start: 05-14-2014 End: 08-06-2024 take 1 tablet by mouth once daily citalopram (CELEXA) 40 mg tablet Take 1 tablet by mouth once daily. 90 tablet 3 08/06/2024 Active Start: 05-14-2014 take 60 mg by mouth once daily Citalopram Active 60 MG PO DAILY May 14, 2014 12:00am Start: 04-07-2014 CITALOPRAM HYD ROBROMIDE 20 MG TABS as directed CITALOPRAM HYDROBROMIDE [id number] Kiara Giang take 1 tablet by agnes th twice daily CELEXA 40 MG TABS One tablet by mouth twice daily CITALOPRAM HYDROBROMIDE [id number] Jaime Rodriguez Comment on above: Take 1 tablet by agnes th once daily. estradiol 0.1 mg/ml vaginal cream (20 sources) Estrogen Start: 04-09-2024 estradiol (ESTRACE) 0.01 % (0.1 mg/gram) vaginal cream Indications: Atrophic vaginitis Use 3 g vaginally once daily. 42.5 g 2 04/09/2024 Active gabapentin 300 mg oral capsule (20 sources) Anti-epileptic Agent Start: 03-25-2020 End: 06-08-2024 take 3 capsules by mouth once daily gabapentin (NEURONTIN) 300 mg capsule Take 3 capsules by mouth once daily for 30 days. Daily at noon 05/09/2024 Active Start: 02-25-2020 gabapentin (NE URONTIN) 300 mg capsule Take 300 mg by mouth. 900 mg (3 tabs) a.m, 600 mg (2 tabs) p.m 02/25/2020 Active Start: 02-25-2020 take 5 tablets by mo uth once daily gabapentin (NEURONTIN) 300 mg capsule Take 300 mg by mouth. 5 tabs daily 0 02/25/2020 Active Start: 05-14-2014 End: 02-11-2019 take 1 capsule by mouth five times daily Gabapentin 300 MG capsule Discontinued 300 mg PO 5 TIMES DAILY May 14, 2014 1:00am February 11, 2019 1:28pm Start: 04-11-2014 take 5 capsules by m out once daily, then take 2 capsules by mouth at bedtime GABAPENTIN 300 MG CAPS 5 capsules daily by mouth (2 at bedtime) GABAPENTIN [id number] Kiara Giang Comment on above: Take 1 capsule by mo uth four times daily. hyoscyamine sulfate 0.125 mg sublingual tablet (20 sources) Start: 09-21-2016 LEVSIN 0.125 MG TABS as directed HYOSCYAMINE SULFATE [id number] Kiara Giang Start: 04-20-2016 End: 08-08-2024 take 1 tablet under the tongue every four hours as needed hyoscyamine sublingual (LEVSIN/SL) 0.125 mg Indications: Irritable bowel syndrome with constipation Dissolve 1 tablet under the tongue every 4 hours as needed. 60 tablet 3 08/08/2024 Active Comment on above: Dissolve 1 tablet un sreedhar the tongue every 4 hours as needed. lisinopril 10 mg oral tablet (20 sources) Angiotensin Converting Enzyme Inhibitor Start: 2 End: 10-28-202 5 take 1 tablet by mouth once daily lisinopril (ZESTRIL) 10 mg tablet Indications: Hypertension, unspecified type Take 1 tablet by mouth once daily. 90 tablet 3 04/22/2024 04/22/2025 Active Start: 12-17-2021 End: 03-03-2022 take 1 tablet by mouth once daily lisinopril (ZESTRIL, PRINIVIL) 10 mg tablet Indications: Hypertension, unspecified type Take 1 tablet by mouth once daily. 30 tablet 5 12/17/2021 03/03/2022 Discontinued Comment on above: Take 1 tablet by agnes th once daily. multivitamin tablet (20 sources) take 1 tablet by mouth once daily multivitamin tablet Take 1 tablet by mouth once daily. Active take 1 tablet by mouth once alice y multivitamin tablet Take 1 tablet by mouth once daily. 0 Active Comment on above: Take 1 tablet by agnes th once daily. naproxen 500 mg oral tablet (20 sources) Nonsteroidal Anti-inflammatory Drug Start: 03-25-20 End: 03-22-20 take 500 mg by mouth twice daily Naproxen Active 500 MG PO TWICE A DAY March 24, 2020 11:00pm Comment on above: Take 500 mg by mouth twice daily with meals. nitrofurantoin, macrocrystals 25 mg / nitrofurantoin, monohydrate 75 mg oral capsule (3 sources) Nitrofuran Antibacterial Start: 08-16-19 End: 08-21-19 take 1 capsule by mouth twice daily nitrofurantoin monohydrate and macrocrystal (MACROBID) 100 mg capsule Take 1 capsule by mouth two times a day for 5 days. 10 capsule 08/16/2024 08/19/2024 Discontinued omeprazole 40 mg delayed release oral capsule (20 sources) Proton Pump Inhibitor Start: 11-13-19 take 1 capsule by mouth once daily omeprazole (PRILOSEC) 40 mg capsule Take 40 mg by mouth once daily. 11/13/2023 Active Start: 03-25-2020 take 2 capsules by m outh once daily Omeprazole 20 mg capsule,delayed release(DR/EC) Active 40 mg PO DAILY March 25, 2020 12:00am Start: 03-25-2020 take 40 mg by mouth once daily Omeprazole Active 40 MG PO DAILY March 24, 2020 11:00pm Start: 03-25-2020 take 20 mg by mouth twice daily Omeprazole Active 20 MG PO TWICE A DAY March 24, 2020 11:00pm End: 05-12-2023 take 1 capsule by mouth once daily omeprazole (PRILOSEC) 40 mg capsule Take 40 mg by mouth once daily. 05/12/2023 Discontinued Comment on above: Take 40 mg by mouth once daily. ondansetron 4 mg disintegrating oral tablet (20 sources) Serotonin-3 Receptor Antagonist Start: 06-30-19 End: 07-07-19 take 1 tablet by mouth every six hours as needed ondansetron orally disintegrating (ZOFRAN ODT) 4 mg disintegrating tablet Take 1 tablet by mouth every 6 hours as needed for nausea/vomiting for up to 7 days. 20 tablet 06/30/2024 07/07/2024 Active Start: 06-24-2024 take 1 tablet by agnes th every eight hours as needed for nausea Ondansetron 4 mg tablet,disintegrating Active 4 mg PO EVERY 8 HOURS NEEDED as needed for Nausea June 24, 2024 1:00am Start: 09-21-2016 ZOFRAN 8 MG TA BS as directed ONDANSETRON HCL [id number] Kiara N Giang Start: 09-21-2016 ZOFRAN 8 MG TA BS as directed ONDANSETRON HCL [id number] Kiara N Giang Start: 04-24-2014 End: 04-30-2014 take 4 mg intravenously every eight hours as needed for nausea Ondansetron Hcl (Pf) 4 MG/2 ML Vial Discontinued 4 mg IV EVERY 8 HOURS NEEDED as needed for Nausea April 24, 2014 12:00am April 30, 2014 3:49pm Start: 04-11-2014 take 1 tablet by agnes th four times daily as needed ONDANSETRON HCL TABS One tablet by mouth four times daily as needed ONDANSETRON HCL TABS [id number] Kiara N Giang polyethylene glycol 3350 98665 mg powder for oral solution (20 sources) Osmotic Laxative Start: 05-09-2024 polyethylene glycol 3350 17 gram packet Take 1 Packet by mouth once daily as needed. Dissolve dose in 4 - 8 ounces of liquid and take as directed. 05/09/2024 Active Start: 12-20-2017 End: 03-25-2020 Polyethylene Glycol 3350 119 GM powder Discontinued 2 NMA PO DAILY as needed for Constipation December 20, 2017 12:00am March 25, 2020 1:26pm pt uses 2 teaspoons daily as needed Start: 12-20-2017 End: 03-25-2020 Polyethylene Glycol 3350 Dis continued 2 DOSE PO DAILY December 19, 2017 11:00pm March 25, 2020 12:26pm pt uses 2 teaspoons daily as needed Start: 09-21-2016 MIRALAX PACK a s directed POLYETHYLENE GLYCOL 3350 [id number] Kiara Giang predniSONE 10 mg oral tablet (20 sources) Start: 05-14-2014 Prednisone 10 MG tablet Active 10 mg PO NEEDED as needed for flare up May 14, 2014 1:00am take for 3-5 days for RA flare Start: 04-11-2014 PREDNISONE 10 MG TABS 1 tab 3-5 days with flarre up PREDNISONE [id number] Kiara Giang Comment on above: Take 1 tablet by agnes th as needed for Pain. promethazine hydrochloride 25 mg oral tablet (20 sources) Phenothiazine Start: 11-17-2021 End: 08-15-2023 promethazine (PHENERGAN) 25 mg suppository Indications: Migraine without aura, intractable, without status migrainosus , Nausea 1 Suppository by RECTAL route every 6 hours as needed. 24 Suppository 6 08/15/2023 Active Start: 01-29-2020 End: 08-06-2024 take 1 tablet by mouth every six hours as needed promethazine (PHENERGAN) 25 mg tablet Indications: Irritable bowel syndrome with constipation Take 1 tablet by mouth every 6 hours as needed. 24 tablet 6 08/07/2024 Active Start: 12-17-2014 Promethazine 2 5 MG suppository Active 25 mg PO NEEDED as needed for Nausea December 17, 2014 12:00am Comment on above: Take 1 tablet by agnes th every 6 hours as needed. 1 Suppository by REC VINCENT route every 6 hours as needed. SUMAtriptan 50 mg oral tablet (20 sources) Serotonin-1b and Serotonin-1d Receptor Agonist Start: End: 4 SUMAtriptan (IMITREX) 50 mg tablet Indications: Migraine without aura, intractable, without status migrainosus Take 1 tablet (50 mg) by mouth as needed. 9 tablet 3 08/15/2023 Active Comment on above: Take 1 tablet by [facility] as needed. Take 1 tablet (50 mg ) by mouth as needed. 24 hr upadacitinib 15 mg extended release oral tablet (16 sources) Start: 0 take 1 tablet by mouth once daily Upadacitinib (Rinvoq) 15 mg tablet extended release 24 hr Active 15 mg PO DAILY March 25, 2020 12:00am upadacitinib (RINVOQ ORAL) (20 sources) upadacitinib (RI NVOQ ORAL) Take 15 mg by mouth. Active upadacitinib (RI NVOQ ORAL) Take 15 mg by mouth. 0 Active Comment on above: Take 15 mg by mouth. Completed/Discontinued Medications Medication Drug Class(es) Dates Sig (Normalized) Sig (Original) acetaminophen 300 mg / butalbital 50 mg / caffeine 40 mg oral capsule (20 sources) Barbiturate, Central Nervous System Stimulant, Methylxanthine Start: 03-23-2022 End: 05-12-2023 take 1 capsule by mouth twice daily acetaminophen 300 mg-caffeine 40 mg-butalbital 50 mg (FIORICET) per capsule TAKE 1 CAPSULE BY MOUTH TWICE DAILY FOR 28 DAYS 03/23/2022 05/12/2023 Discontinued Comment on above: TAKE 1 CAPSULE BY [facility] TWICE DAILY FOR 28 DAYS ADALIMUMAB (2 sources) Tumor Necrosis Factor Paramjit Start: 09-21-2016 HUMIRA 10 MG/0.2ML PSKT as directed ADALIMUMAB [id number] Kiara N Giang Start: 09-21-2016 HUMIRA 10 MG/0 .2ML PSKT as directed ADALIMUMAB [id number] Kiara N Giang ALPRAZolam 0.25 mg disintegrating oral tablet (2 sources) Benzodiazepine Start: 09-21-2016 ALPRAZOLAM 0.25 MG TBDP disintegrating, take 1 oral daily ALPRAZOLAM [id number] Kiara N Giang amLODIPine 5 mg oral tablet (16 sources) Dihydropyridine Calcium Channel Paramjit Start: 02-11-2019 End: 03-25-2020 take 1 tablet by mouth once daily Amlodipine 5 MG tablet Discontinued 5 mg PO DAILY February 11, 2019 12:00am March 25, 2020 1:18pm [id number] -NA ASC-C (2 sources) Osmotic Laxative, Vitamin C Start: 09-26-2012 End: 09-27-2012 MOVIPREP 100 GM SOLR use as per instructions [id number]- NA ASC-C [id number] Gwen Blakely Start: 09-26-2012 End: 09-27-2012 MOVIPREP 100 GM SOLR use as per instructions [id number] ASC-C [id number] Gwen Blakely betamethasone 0.5 mg/ml / clotrimazole 10 mg/ml topical cream (2 sources) Azole Antifungal, Corticosteroid Start: 08-26-2022 End: 09-25-2022 clotrimazole-betamethasone (LOTRISONE) cream Apply 1 application to affected area twice daily. TO AFFECTED AREA. 45 g 2 08/26/2022 09/25/2022 Comment on above: Apply 1 application to affected area twi ce daily. TO AFFECTED AREA. cetirizine hydrochloride 10 mg oral capsule (20 sources) Histamine-1 Receptor Antagonist Start: 12-20-2017 End: 03-25-2020 take 1 capsule by mouth once daily Cetirizine 10 MG capsule Discontinued 10 mg PO DAILY December 20, 2017 12:00am March 25, 2020 1:19pm Start: 09-21-2016 ZYRTEC ALLERGY 10 MG TABS as directed CETIRIZINE HCL [id number] Kiara Giang Comment on above: Take by mouth. clindamycin 150 mg oral capsule (3 sources) Lincosamide Antibacterial Start: 03-04-20 End: 09-18-19 22 take 1 capsule by mouth four times daily clindamycin (CLEOCIN) 150 mg capsule Take 1 capsule by mouth four times daily. 40 capsule 0 03/04/2021 09/17/2021 Discontinued Start: 06-02-2014 take 1 capsule by [facility] twice daily CLINDAMYCIN HCL 300 MG CAPS 1 po bid CLINDAMYCIN HCL [id number] Sydni Campos Comment on above: Take 1 capsule by [facility] four times daily. clonazePAM 0.5 mg disintegrating oral tablet (2 sources) Benzodiazepine take 1 tablet by mouth twice daily CLONAZEPAM 0.5 MG TBDP One tablet by mouth twice daily CLONAZEPAM [id number] Jaime Rodriguez COLESTIPOL HCL (2 sources) Bile Acid Sequestrant Start: 09-22-19 COLESTID 1 GM TABS as directed COLESTIPOL HCL [id number] Kiara N Giang Start: 09-21-2016 COLESTID 1 GM TABS as directed COLESTIPOL HCL [id number] Kiara N Giang cyclobenzaprine hydrochloride 10 mg oral tablet (20 sources) Muscle Relaxant Start: 05-14-2014 End: 11-11-2024 take 1 tablet by mouth three times daily Cyclobenzaprine 10 MG tablet Discontinued 10 mg PO THREE TIMES A DAY May 14, 2014 1:00am November 11, 2024 1:27pm Start: 04-07-2014 take 1 tablet by [facility] twice daily CYCLOBENZAPRINE HCL 10 MG TABS One tablet by mouth twice daily CYCLOBENZAPRINE HCL [id number] Sydni Campos Comment on above: Take 10 mg by mouth three times daily as needed. docusate sodium 100 mg oral tablet (20 sources) Start: 09-21-2016 take 1 tablet by mouth once daily COLACE 100 MG CAPS One tablet by mouth daily DOCUSATE SODIUM [id number] Kiara N Giang Start: 09-21-2016 take 1 tablet by agnes once daily COLACE 100 MG CAPS One tablet by mouth daily DOCUSATE SODIUM [id number] Kiara N Giang take 1 capsule by [facility] twice daily docusate sodium (COLACE) 100 mg capsule Take 100 mg by mouth twice daily. Active Comment on above: Take 100 mg by mouth twice daily. 72 hr fentaNYL 0.075 mg/hr transdermal system (16 sources) Opioid Agonist Start: 04-24-2014 End: 04-30-2014 Fentanyl 75 MCG patch Discontinued 75 ug TRANSDERM. Q72H April 24, 2014 12:00am April 30, 2014 3:49pm Fiber (2 sources) Start: 09-21-2016 take 1 tablet by mouth once daily FIBER SELECT GUMMIES CHEW One tablet by mouth daily FIBER [id number] Kiara N Giang Folic Acid (2 sources) Start: 04-11-2014 take 1 tablet by mouth twice daily FOLIC ACID TABS One tablet by mouth twice daily FOLIC ACID TABS [id number] Kiara N Giang furosemide 20 mg oral tablet (4 sources) Loop Diuretic Start: 09-21-2016 take 1 tablet by mouth once daily FUROSEMIDE 20 MG TABS One tablet by mouth daily FUROSEMIDE [id number] Kiara N Giang GOLIMUMAB (2 sources) Tumor Necrosis Factor Paramjit Start: 09-21-2016 SIMPONI 50 MG/0.5ML SOAJ syringe subcutaneous one/ month GOLIMUMAB [id number] Kiara N Giang Start: 09-21-2016 SIMPONI 50 MG/ 0.5ML SOAJ syringe subcutaneous one/ month GOLIMUMAB [id number] Kiara N Giang 1 ml HYDROmorphone hydrochloride 1 mg/ml prefilled syringe (16 sources) Opioid Agonist Start: 04-24-2014 End: 04-30-2014 take 1-2 mg intravenously every two hours as needed for pain Hydromorphone 1 MG/ML syringe Discontinued 1 - 2 mg IV EVERY 2 HOURS NEEDED as needed for Pain April 24, 2014 12:00am April 30, 2014 3:49pm LATANOPROST (20 sources) Prostaglandin Analog Start: 09-21-2016 XALATAN 0.005 % SOLN as directed LATANOPROST [id number] Kiara N Giang Start: 09-21-2016 XALATAN 0.005 % SOLN as directed LATANOPROST [id number] Kiara N Giang Start: 05-14-2014 Latanoprost 1 DROP bottle Active 1 NMA EACH EYE AT BEDTIME May 14, 2014 1:00am Start: 05-14-2014 Latanoprost Ac tive 1 DRP EACH EYE AT BEDTIME May 14, 2014 12:00am Start: 04-11-2014 take 1 drop(s) into the eye(s) at bedtime LATANOPROST 0.005 % SOLN 1 drop in eyes at bedtime LATANOPROST [id number] Kiara Giang take 1 drop(s) into the eye(s) once daily at bedtime latanoprost (XALATAN) 0.005 % ophthalmic solution 1 Drop daily at bedtime. Active Comment on above: 1 Drop daily at bedt garo. LEUCOVORIN CALCIUM TABS (2 sources) Folate Analog Start: 04-11-20 14 take 3 tablets by mouth every week LEUCOVORIN CALCIUM TABS 3 tabs by mouth once a week LEUCOVORIN CALCIUM TABS [id number] Kiara Giang loperamide hydrochloride 2 mg oral capsule (16 sources) Opioid Agonist Start: 12-21-19 18 End: 03-25-20 take 1 capsule by mouth every four hours as needed for diarrhea Loperamide 2 MG capsule Discontinued 2 mg PO EVERY 4 HOURS NEEDED as needed for Diarrhea December 20, 2017 12:00am March 25, 2020 1:27pm meloxicam 7.5 mg oral tablet (20 sources) Nonsteroidal Anti-inflammatory Drug Start: 12-21-19 End: 10-26-19 take 1 tablet by mouth once daily Meloxicam 7.5 MG tablet Discontinued 7.5 mg PO DAILY December 20, 2017 12:00am March 25, 2020 1:19pm take 1 tablet by mouth once alice y MELOXICAM 15 MG TABS One tablet by mouth daily MELOXICAM [id number] Jaime Rodriguez Comment on above: Take 7.5 mg by mouth once daily. 24 hr metFORMIN hydrochloride 500 mg extended release oral tablet (20 sources) Biguanide Start: 08-18-2022 End: 11-11-2024 Metformin 500 mg tablet extended release 24 hr Discontinued 600 mg PO AT BEDTIME August 18, 2022 1:00am November 11, 2024 1:28pm Start: 03-12-2021 End: 11-15-2024 take 1 tablet by mouth once daily at breakfast metFORMIN ER (GLUCOPHAGE XR) 500 mg 24 hr tablet Indications: Type 2 diabetes mellitus without complication, without long-term current use of insulin (HCC) Take 1 tablet by mouth daily with breakfast. 90 tablet 3 11/17/2021 10/18/2022 Discontinued Comment on above: Take 1 tablet by agnes th daily with breakfast. methotrexate 2.5 mg oral tablet (2 sources) Folate Analog Metabolic Inhibitor Start: 2013 METHOTREXATE 2.5 MG TABS 8 tabs once a week METHOTREXATE SODIUM [id number] Sydni Campos 1 ml morphine sulfate 2 mg/ml prefilled syringe (16 sources) Opioid Agonist Start: 2013 End: 2013 take 2-4 mg intravenously every four hours as needed for pain Morphine 2 MG/ML Ml Discontinued 2 - 4 mg IV EVERY 4 HOURS NEEDED as needed for Pain April 24, 2014 12:00am April 30, 2014 3:49pm perflutren lipid microspheres 1.3 mL in NaCl (PF) 0.9% 10 mL injection (DEFINITY) (20 sources) Start: 2021 End: 2022 perflutren lipid microspheres 1.3 mL in NaCl (PF) 0.9% 10 mL injection (DEFINITY) polyethylene glycol 3350 307686 mg / potassium chloride 2970 mg / sodium bicarbonate 6740 mg / sodium chloride 5860 mg / sodium sulfate 98034 mg powder for oral solution (1 source) Osmotic Laxative Start: 2021 End: 2021 peg 3350-Electrolytes (GOLYTELY) 236-22.74-6.74 -5.86 gram suspension Indications: Change in bowel habits Take 4,000 mL by mouth one time only for 1 dose. Refer to printed prep instructions from your provider. 4000 mL 0 04/11/2022 04/11/2022 Comment on above: Take 4,000 mL by agnes th one time only for 1 dose. Refer to printed prep instructions from your provider. POLYETHYLENE GLYCOL 3350 (1 source) Start: 2016 MIRALAX PACK as directed POLYETHYLENE GLYCOL 3350 [id number] Kiara Giang regadenoson (LEXISCAN) 0.4 mg/5 mL syrg (1 source) Start: 2021 End: 2021 regadenoson (LEXISCAN) 0.4 mg/5 mL syrg Indications: Left arm pain , Chest pain, atypical Inject 5 mL intravenously one time only for 1 dose. Give IV push over 10 seconds and follow with 5 ml of normal saline 5 mL 12/17/2021 12/17/2021 125 ml sodium chloride 9 mg/ml prefilled syringe (20 sources) Start: 2021 End: 2022 sodium chloride 0.9 % (flush) 10 mL (BD POSIFLUSH) sulfamethoxazole 800 mg / trimethoprim 160 mg oral tablet (9 sources) Dihydrofolate Reductase Inhibitor Antibacterial, Sulfonamide Antimicrobial Start: 2023 End: 2024 Sulfamethoxazole-Tr imethoprim (Bactrim Ds) 800-160 mg tablet Discontinued 1 {tbl} PO TWICE A DAY 14 04June 24, 2024 1:00am November 11, 2024 1:28pm traMADol hydrochloride 50 mg oral tablet (2 sources) Opioid Agonist take 1 tablet by mouth twice daily TRAMADOL HCL 50 MG TABS One tablet by mouth twice daily TRAMADOL HCL [id number] Jaime [place]field Michael zolpidem tartrate 10 mg oral tablet (20 sources) gamma-Aminobutyric Acid-ergic Agonist Start: 2013 End: 2019 take 1 tablet by mouth at bedtime Zolpidem 10 MG tablet Discontinued 10 mg PO AT BEDTIME May 14, 2014 1:00am March 25, 2020 1:27pm Start: 10-31-2013 End: 04-30-2014 take 1 tablet by mouth at bedtime as needed Zolpidem (Ambien) 10 MG tablet Discontinued 10 mg PO AT BEDTIME NEEDED as needed for Insomnia October 31, 2013 12:00am April 30, 2014 3:51pm Problems Active Problems Problem Classification Problem Date Documented Da te Episodic/Chronic Acquired foot deformities (2 sources) Hammer toe; Translations: [Other hammer toe(s) (acquired), right foot] Chronic Acquired foot deformities (4 sources) Talipes planus; Translations: [Flat foot [pes planus] (acquired), right foot] Episodic Anxiety disorders (20 sources) Panic disorder; Translations: [Panic disorder [episodic paroxysmal anxiety]] Onset: 05-11-2019 Chronic Cardiac dysrhythmias (16 sources) Palpitations; Translations: [Palpitations] 02-11-2019 Episodic Chronic kidney disease (20 sources) Chronic kidney disease stage 3; Translations: [Stage 3 chronic kidney disease, unspecified whether stage 3a or 3b CKD (HCC)] Onset: 10-25-2022 Chronic Chronic kidney disease (1 source) Chronic kidney disease; Translations: [Stage 3 chronic kidney disease, unspecified whether stage 3a or 3b CKD (HCC)] Onset: 10-25-2022 Complications of surgical procedures or medical care (20 sources) Periprosthetic fracture around other internal prosthetic joint, initial encounter; Translations: [Fátima-prosthetic fracture around prosthetic joint] Onset: 05-02-2024 05-02-2024 Episodic Deficiency and other anemia (2 sources) Anemia; Translations: [Anemia, unspecified] Episodic Diabetes mellitus with complications (16 sources) Disorder of nervous system due to type 2 diabetes mellitus; Translations: [Type 2 diabetes mellitus with other diabetic neurological complication] Onset: 08-14-2024 Chronic Diabetes mellitus without complication (20 sources) Type 2 diabetes mellitus without complication; Translations: [Type 2 diabetes mellitus without complications] Onset: 03-12-2021 Chronic Diseases of white blood cells (2 sources) Leukocytosis; Translations: [Elevated white blood cell count, unspecified] Chronic Disorders of lipid metabolism (20 sources) Hyperlipidemia; Translations: [Other hyperlipidemia] Onset: 05-11-2019 Chronic E Codes: Fall (6 sources) Fall; Translations: [Unspecified fall, initial encounter] 05-10-2024 Episodic Essential hypertension (20 sources) Malignant hypertension; Translations: [Essential (primary) hypertension] Onset: 01-14-2022 Chronic Fracture of lower limb (4 sources) Closed fracture of foot; Translations: [Unspecified fracture of left foot, subsequent encounter for fracture with nonunion] Episodic Glaucoma (20 sources) Suspected bilateral glaucoma; Translations: [Preglaucoma, unspecified, bilateral] Onset: 05-11-2019 05-11-2019 Chronic Headache; including migraine (20 sources) Refractory migraine without aura; Translations: [Migraine without aura, intractable, without status migrainosus] Onset: 05-11-2019 Chronic Menopausal disorders (1 source) Atrophic vaginitis; Translations: [Postmenopausal atrophic vaginitis] 04-09-2024 Chronic Miscellaneous mental health disorders (20 sources) Chronic insomnia; Translations: [Psychophysiologic insomnia] Onset: 05-11-2019 05-11-2019 Chronic Mood disorders (16 sources) Depressive disorder; Translations: [Depression] 02-11-2019 Chronic Nonspecific chest pain (17 sources) Chest pain; Translations: [Chest pain, unspecified] 02-11-2019 Episodic Nutritional deficiencies (2 sources) Undernutrition; Translations: [Mild protein-calorie malnutrition] Onset: 01-05-2024 01-05-2024 Chronic Osteoarthritis (20 sources) Osteoarthritis of knee; Translations: [Inflammation of joint of foot] Onset: 04-07-2014 04-07-2014 Chronic Other connective tissue disease (5 sources) Pain in left foot; Translations: [Pain in left foot] Episodic Other connective tissue disease (4 sources) Dysfunction of posterior tibial tendon; Translations: [...] Diarrhea; Translations: [Diarrhea, unspecified] 05-27-2022 Episodic Other injuries and conditions due to external causes (1 source) Fracture of bone; Translations: [Other injury of unspecified body region, initial encounter] 10-11-2024 Episodic Other injuries and conditions due to external causes (1 source) Other injury of unspecified body region, initial encounter; Translations: [Fracture] Onset: 10-11-2024 Episodic Other lower respiratory disease (1 source) Dyspnea; Translations: [Shortness of breath] Episodic Other nervous system disorders (18 sources) Chronic pain syndrome; Translations: [Chronic pain syndrome] 02-11-2019 Chronic Other nervous system disorders (20 sources) Chronic pain; Translations: [Other chronic pain] Onset: 05-08-2024 05-08-2024 Chronic Other non-traumatic joint disorders (1 source) Pain in left knee; Translations: [Pain in left knee] Onset: 11-11-2024 Episodic Other nutritional; endocrine; and metabolic disorders (1 source) Obese class II; Translations: [Obesity, unspecified] 05-12-2023 Chronic Other nutritional; endocrine; and metabolic disorders (20 sources) Obese class I; Translations: [Obesity, Class I, BMI 30-34.9] Onset: 05-03-2024 05-03-2024 Chronic Other nutritional; endocrine; and metabolic disorders (2 sources) Weight loss; Translations: [Abnormal weight loss] 11-21-2023 Episodic Other skin disorders (1 source) Disorder of skin color; Translations: [Disorder of pigmentation, unspecified] Episodic Other skin disorders (1 source) Keratosis; Translations: [Epidermal thickening, unspecified] Episodic Residual codes; unclassified (1 source) Procedure not indicated; Translations: [Procedure and treatment not carried out for other reasons] 06-23-2024 Episodic Residual codes; unclassified (1 source) At risk of osteoporotic fracture; Translations: [Other specified personal risk factors, not elsewhere classified] 10-22-2024 Episodic Residual codes; unclassified (1 source) Other specified personal risk factors, not elsewhere classified; Translations: [Fracture Risk Assessment Score (FRAX) indicating greater than 20% risk for major osteoporosis-related fracture] Onset: 10-22-2024 Episodic Rheumatoid arthritis and related disease (20 sources) Rheumatoid arthritis; Translations: [Rheumatoid arthritis of multiple joints] Onset: 04-07-2014 04-07-2014 Chronic Skin and subcutaneous tissue infections (6 sources) Cellulitis of right lower limb; Translations: [Cellulitis of right lower limb] 07-02-2024 Episodic Spondylosis; intervertebral disc disorders; other back problems (20 sources) Degeneration of lumbar intervertebral disc; Translations: [Other intervertebral disc degeneration, lumbar region] Onset: 05-11-2019 Chronic Substance-related disorders (1 source) Opioid dependence, uncomplicated; Translations: [Opioid dependence, uncomplicated] Onset: 05-20-2024 Chronic Unclassified (1 source) Screening for malignant neoplasm of colon ; Translations: [Encounter for screening for malignant neoplasm of colon] 09-26-2012 Unclassified (1 source) Obesity, Class I, BMI 30-34.9; Translations: [Obesity, Class I, BMI 30-34.9] Onset: 05-03-2024 Unclassified (1 source) Low back pain, unspecified; Translations: [Low back pain, unspecified] Onset: 11-21-2024 Unclassified (1 source) Rm 35 Onset: 05-02-2024 Past or Other Problems Problem Classification Problem Date Documented Da te Episodic/Chronic Abdominal pain (20 sources) Epigastric pain; Translations: [Epigastric pain] Onset: 07-30-2014 Resolved: 07-30-2014 Episodic Complication of device; implant or graft (1 source) Infection and inflammatory reaction due to other internal orthopedic prosthetic devices, implants and grafts, initial encounter; Translations: [Infection at site of external fixator pin, initial encounter ([facility])] Onset: 06-30-2024 Episodic Deficiency and other anemia (1 source) Anemia, unspecified; Translations: [Anemia, unspecified type] Onset: 01-15-2024 Episodic Diabetes mellitus without complication (20 sources) Hyperglycemia; Translations: [Hyperglycemia, unspecified] Onset: 05-11-2019 Resolved: 03-12-2021 03-12-2021 Episodic Fracture of lower limb (7 sources) Fracture of patella; Translations: [Unspecified fracture of right patella, initial encounter for closed fracture] Onset: 05-27-2024 05-10-2024 Episodic Genitourinary symptoms and ill-defined conditions (8 sources) Dysuria; Translations: [Dysuria] Onset: 02-20-2024 03-09-2024 Episodic Nausea and vomiting (20 sources) Nausea; Translations: [Nausea] Onset: 07-30-2014 Resolved: 07-30-2014 Episodic Other aftercare (2 sources) Follow-up orthopedic assessment; Translations: [Other orthopedic aftercare] Onset: 05-05-2014 05-05-2014 Episodic Other circulatory disease (20 sources) Elevated blood-pressure reading without diagnosis of hypertension; Translations: [Elevated blood-pressure reading, without diagnosis of hypertension] Onset: 11-17-2021 Resolved: 01-14-2022 Episodic Other connective tissue disease (20 sources) Fibromyalgia; Translations: [Fibromyalgia] Onset: 05-11-2019 05-11-2019 Episodic Other connective tissue disease (1 source) Fibromyalgia; Translations: [Fibromyalgia] Onset: 05-11-2019 Episodic Other gastrointestinal disorders (20 sources) Constipation; Translations: [Constipation, unspecified] Onset: 05-08-2024 05-08-2024 Episodic Other nervous system disorders (20 sources) Postoperative pain ; Translations: [Other acute postprocedural pain] Onset: 05-08-2024 Resolved: 08-14-2024 05-08-2024 Episodic Other non-traumatic joint disorders (3 sources) Hip pain; Translations: [Knee pain] Onset: 04-07-2014 11-28-2014 Episodic Other non-traumatic joint disorders (1 source) Knee pain; Translations: [Pain in right knee] Onset: 04-07-2014 04-07-2014 Episodic Other nutritional; endocrine; and metabolic disorders (20 sources) Body mass index 40+ - severely obese; Translations: [Morbid (severe) obesity due to excess calories] Onset: 10-25-2022 Resolved: 05-12-2023 Chronic Other nutritional; endocrine; and metabolic disorders (1 source) Abnormal weight loss; Translations: [Weight loss] Onset: 11-23-2023 Episodic Other screening for suspected conditions (not mental disorders or infectious disease) (20 sources) Patient encounter status; Translations: [Encounter for other screening for malignant neoplasm of breast] Onset: 02-20-2024 Episodic Residual codes; unclassified (20 sources) At risk of delirium; Translations: [Other specified personal risk factors, not elsewhere classified] Onset: 05-08-2024 05-08-2024 Episodic Spondylosis; intervertebral disc disorders; other back problems (20 sources) Lumbar radiculopathy; Translations: [Chronic back pain ] Onset: 09-26-2016 Resolved: 09-17-2021 09-26-2016 Episodic Unclassified (2 sources) 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, subsequent encounter 10-21-2024 Urinary tract infections (11 sources) Urinary tract infectious disease; Translations: [Urinary tract infection, site not specified] Onset: 02-20-2024 02-20-2024 Episodic Results Test Name Value Interpretation Reference Range [facility]AGPOB1 ) -- ZACKERY NUNEZ ([id number]) 1960 F Date Time Provider Department 11/25/24 1:45 PM SYDNI WAGGONER AGPOB1 During your visit today, we recorded the following information about you: Respiration Weight Height 18/minute 91.2 kg 1.702 m Sydni Waggoner MD 11/25/2024 8:33 PM Signed ORTHOPAEDIC SURGERY OFFICE NOTE: SURGERY: 1) Open Treatment of the Right Periprosthetic Proximal Tibia Fracture with Internal Fixation on 05/07/2024 2) Right Lower Extremity Knee-Spanning Uniplanar External Fixator on 05/07/2024 3) Removal of the Right Lower Extremity Knee-Spanning Uniplanar External Fixator on 07/02/2024 CHIEF COMPLAINT: Routine Post-Operative Follow-Up HISTORY OF PRESENT ILLNESS: Zackery Nunez is a 64 year old female who presents for routine post-operative follow-up from the above listed operation (see Surgery above for full details). At today's appointment, the patient reports doing well. The patient endorses controlled pain to the right knee. The patient is ambulatory. The patient denies fevers and chills. The patient has no additional orthopaedic traumatic complaints at this time. Reviewed nursing note and current pain scale. PAST MEDICAL HISTORY Diagnosis Date Anxiety disorder Arthritis Chronic back pain Dr. Burks-pain management Depressive disorder, not elsewhere classified Diabetes (HCC) Pt reports she takes cinnamin tabs to manage her diabetes Essential hypertension, benign Fibromyalgia Glaucoma IBS (irritable bowel syndrome) Migraine, unspecified, without mention of intractable migraine without mention of status migrainosus PONV (postoperative nausea and vomiting) Pure hypercholesterolemia Rheumatoid arthritis (HCC) Sleep apnea pt states she snores frequently;though never worked-up for RUPESH Snoring PAST SURGICAL HISTORY Procedure Laterality Date [...] Never Smokeless tobacco: Never Vaping Use Vaping status: Never Used Substance Use Topics Alcohol use: No Drug use: No MEDICATIONS: Current Outpatient Medications Medication Sig hyoscyamine sublingual (LEVSIN/SL) 0.125 mg Dissolve 1 tablet under the tongue every 4 hours as needed. promethazine (PHENERGAN) 25 mg tablet Take 1 tablet by mouth every 6 hours as needed. citalopram (CELEXA) 40 mg tablet Take 1 tablet by mouth once daily. acetaminophen (TYLENOL) 325 mg tablet Take 2 tablets by mouth every 6 hours as needed for pain. polyethylene glycol 3350 17 gram packet Take 1 Packet by mouth once daily as needed. Dissolve dose in 4 - 8 ounces of liquid and take as directed. lisinopril (ZESTRIL) 10 mg tablet Take 1 tablet by mouth once daily. estradiol (ESTRACE) 0.01 % (0.1 mg/gram) vaginal cream Use 3 g vaginally once daily. atorvastatin (LIPITOR) 10 mg tablet Take 1 tablet by mouth once daily. (Patient taking differently: Take 10 mg by mouth daily at bedtime.) busPIRone HCl 30 mg tablet Take 1 tablet by mouth two times a day. omeprazole (PRILOSEC) 40 mg capsule Take 40 mg by mouth once daily. SUMAtriptan (IMITREX) 50 mg tablet Take 1 tablet (50 mg) by mouth as needed. oxyCODONE-acetaminophen (PERCOCET) 5-325 mg tablet 1 tablet three times daily as needed. upadacitinib (RINVOQ ORAL) Take 15 mg by mouth. amitriptyline (ELAVIL) 10 mg tablet Take 1 tablet by mouth daily at bedtime. Cetirizine 10 mg cap Take by mouth. CALCIUM POLYCARBOPHIL (FIBER LAXATIVE ORAL) Take by mouth. multivitamin tablet Take 1 tablet by mouth once daily. latanoprost (XALATAN) 0.005 % ophthalmic solution 1 Drop daily at bedtime. docusate sodium (COLACE) 100 mg capsule Take 100 mg by mouth twice daily. buprenorphine (BUTRANS) 20 mcg/hour transdermal patch Apply 1 Patch as directed one time a week for 7 days. Last APPLIED 05/08 gabapentin (NEURONTIN) 300 mg capsule Take 3 capsules by mouth daily at bedtime for 30 days. gabapentin (NEURONTIN) 300 mg capsule Take 3 capsules by mouth once daily for 30 days. Daily at noon No curren (more content not included)... Normal [facility] XR Knee - right AP and Later malcolm 11-25-2024 2-view right knee x- rays demonstrate maintained length, alignment and rotation of the right periprosthetic proximal tibia fracture with intact orthopaedic implants. [facility] [facility] Radiology Study observation (narrative) [facility] L/S Spine Min 4 Viewson 10-25 L/S Spine Min 4 Views [facility] Imaging Services [address] [place], [place] [id number] L/S Spine Min 4 Views MR#: [id number] Acct: [id number] Name: ZACKERY NUNEZ ESPINOZA Rep #: [id number] : 1960 F 64 From: Porter Daniels MD PCP: Dr. Mikayla Strange MD Status: DEP AMB Study: L/S Spine Min 4 Views Date of Exam: 11/21/24 Exam# [id number] Ordering Dr: Kadi Gonzalez PROCEDURE: L/S SPINE MIN 4 VIEWS 11/21/2024 REASON FOR EXAM: CHRONIC PAIN TECHNIQUE: Four views; AP, lateral, flexion and extension COMPARISON: None available FINDINGS: 5 foo-dej-[id number] lumbar vertebral body types identified. Status post cholecystectomy. Bilateral lower facet degenerative changes. No fracture. L3-4 mild disc space narrowing and degenerative endplate change. L4-5 grade 1 anterolisthesis L4 on L5 with iwhqcybj-sk-bytltt disc space narrowing and degenerative endplate change L5-S1 severe disc space narrowing vacuum effect and degenerative endplate changes No evidence of instability. RAD/L/S Spine Min 4 Views IMPRESSION: Multilevel spondylosis/discogenic change and spondylolisthesis as above. Reading Location: [id number] CC: JERILYN Jerez; Dr. Mikayla Strange MD Digital Marketing Manager: Signed Normal [facility] Orthopedic Visit Reporton Orthopedic Visit Report [facility] [facility] [address] [place] [address] OFFICE VISIT Date of Service: 11/21/24 MR#: [id number] Acct: [id number] Name: ZACKERY NUNEZ Rep #: [id number] : 1960 Provider: JERILYN Jerez Age/Sex: 64/F [place] [facility] [place] Status: Signed Intake Vital Signs 11/11/24 13:24 11/21/24 13:25 Height 5 ft 5 in 5 ft 5 in Weight: 200 lb 2 oz 200 lb BMI 33.3 33.3 Intake Visit Reasons: LUMBAR SPINE Chief Complaint: Lumbar spine pain Accompanied by: Is patient in pain?: Yes Pain scale (1-10): 6 Allergies adalimumab (From Humira) Allergy (Verified 11/21/24 13:28) Vomiting cefaclor (From Ceclor) Allergy (Verified 11/21/24 13:28) Unknown celecoxib (From Celebrex) Allergy (Verified 11/21/24 13:28) Itching doxepin (Doxepin) Allergy (Verified 11/21/24 13:28) Unknown doxycycline calcium (From Vibramycin) Allergy (Verified 11/21/24 13:28) Unknown doxycycline hyclate (From Vibramycin) Allergy (Verified 11/21/24 13:28) Unknown doxycycline monohydrate (From Vibramycin) Allergy (Verified 11/21/24 13:28) Unknown hydrocodone bitartrate (From Vicodin) Allergy (Verified 11/21/24 13:28) Unknown hydroxychloroquine (Hydroxychloroquine) Allergy (Verified 11/21/24 13:28) Shortness of breath leflunomide (From Arava) Allergy (Verified 11/21/24 13:28) Other prochlorperazine (From Compazine) Allergy (Verified 11/21/24 13:28) Shortness of breath prochlorperazine edisylate (From Compazine) Allergy (Verified 11/21/24 13:28) Shortness of breath prochlorperazine maleate (From Compazine) Allergy (Verified 11/21/24 13:28) Shortness of breath sulfamethoxazole (From Septra) Allergy (Verified 11/21/24 13:28) Unknown terfenadine (From Seldane) Allergy (Verified 11/21/24 13:28) Unknown trazodone Allergy (Verified 11/21/24 13:28) Other trimethoprim (From Septra) Allergy (Verified 11/21/24 13:28) Unknown clarithromycin (From Biaxin) Adverse Reaction (Verified 11/21/24 13:28) Vomiting colestipol Adverse Reaction (Verified 11/21/24 13:28) Other dicyclomine HCl (From Bentyl) Adverse Reaction (Verified 11/21/24 13:28) Nausea/Vom/Diarrhea doxycycline (From Vibramycin) Adverse Reaction (Verified 11/21/24 13:28) Nausea fentanyl Adverse Reaction (Verified 11/21/24 13:28) Nausea fexofenadine HCl (From Vaibhav) Adverse Reaction (Verified 11/21/24 13:28) Other golimumab (From Simponi) Adverse Reaction (Verified 11/21/24 13:28) Other hydrocodone Adverse Reaction (Verified 11/21/24 13:28) Vomiting hydroxychloroquine sulfate (From Plaquenil) Adverse Reaction (Verified 11/21/24 13:28) Nausea levofloxacin (From Levaquin) Adverse Reaction (Verified 11/21/24 13:28) Other methotrexate Adverse Reaction (Verified 11/21/24 13:28) Upset Stomach Sulfa (Sulfonamide Antibiotics) Adverse Reaction (Verified 11/21/24 13:28) Vomiting Medications ???Medication ???Instructions ???Recorded ???Confirmed ???Type atorvastatin 10 mg tablet 10 mg PO QHS cholestorol 05/14/14 11/21/24 History citalopram 40 mg tablet 40 mg PO DAILY anxiety 05/14/14 History latanoprost 0.005 % eye drops 1 drp EACH EYE QHS glaucoma 11/21/24 History prednisone 10 mg tablet 10 mg PO PRN PRN flare up 05/14/14 11/21/24 History sumatriptan succinate 50 mg tablet 50 mg PO .X1 PRN PRN Headache 11/21/24 History promethazine 25 mg rectal 25 mg PO PRN PRN Nausea 12/17/14 0 11/21/24 History suppository hyoscyamine sulfate 0.125 mg 0.125 mg sublingual Q4H PRN PRN 11/21/24 History sublingual tablet Nausea oxycodone-acetaminophen 7.5 mg-325 1 tab PO TID pain 04/20/1611/21 History mg tablet buspirone 30 mg tablet 30 mg PO BID anxiety 12/20/17/03/20 History amitriptyline 10 mg tablet 10 mg PO QHS 03/25/20 11/21/24 His tory gabapentin 300 mg capsule 900 mg PO DAILY 03/25/20 11/21/24 History omeprazole 20 mg capsule,delayed 40 mg PO DAILY 03/25/20 11/21/24 H istory release upadacitinib 15 mg tablet,extended 15 mg PO DAILY 03/25/20 11/21/24 History release 24 hr (Rinvoq) lisinopril 10 mg tablet 10 mg PO DAILY 08/18/22 11/21/24 H istory buprenorphine 20 mcg/hour weekly 1 patch topical QWEEK 05/01/24 History transdermal patch ondansetron 4 mg disintegrating 4 mg PO Q8H PRN PRN Nausea #10 tab s 06/24/24 11/21/24 Rx tablet Have you fallen in the past year?: No PFSH Medical History MRSA (methicillin resistant staph aureus) culture positive Wears glasses Post-menopausal Marijuana use History of steroid therapy Diabetes Walker as ambulation aid Low iron High cholesterol Back pain Injury of head and neck Migraine headache Heartburn Gastric (more content not included)... Normal [facility] Knee 1 or 2 Viewson 11-12-19 Knee 1 or 2 Views [facility] Imaging Services [address] [address] Knee 1 or 2 Views MR#: [id number] Acct: [id number] Name: ZACKERY NUNEZ ESPINOZA Rep #: [id number] : 1960 F 64 From: Porter Daniels MD PCP: Dr. Mikayla Strange MD Status: DEP AMB Study: Knee 1 or 2 Views Date of Exam: 11/11/24 Exam# [id number] Ordering Dr: Martir Carlin DO PROCEDURE: KNEE 1 OR 2 VIEWS 11/11/2024 REASON FOR EXAM: CHRONIC KNEE PAIN TECHNIQUE: 2 view(s) of the left knee; tunnel and sunrise views COMPARISON: 10/30/2024 FINDINGS: Possible large intra-articular osseous body at the midline posterior joint versus an unusual appearance of the fabella given its slightly medial to midline positioning on the tunnel view. Medial and lateral compartments appear within limits. Again note of severe appearing osteoarthrosis of the patellofemoral compartment with mkwi-pl-qzyi contact, lateral subluxation, buttressing and osteophyte formation. No fracture identified. RAD/Knee 1 or 2 Views IMPRESSION: Possible large intra-articular osseous body at the midline posterior joint versus an unusual appearance of the fabella given its slightly medial to midline positioning on the tunnel view. Medial and lateral compartments appear within limits. Again note of severe appearing osteoarthrosis of the patellofemoral compartment with peek-mw-gmos contact, lateral subluxation, buttressing and osteophyte formation. Reading Location: [id number] CC: Dr. Martir Carlin DO; Dr. Mikayla Strange MD Digital Marketing Manager: Signed [facility] Orthopedic Visit Reporton Orthopedic Visit Report [facility] [address] [place] [address] OFFICE VISIT Date of Service: 11/11/24 MR#: [id number] Acct: [id number] Name: ZACKERY NUNEZ ESPINOZA Rep #: [id number] : 1960 Provider: Dr. Martir john DO Age/Sex: 64/F [place] [facility] [place] Status: Signed Intake Vital Signs 06/24/24 13:20 11/11/24 13:24 Height 5 ft 5 in 5 ft 5 in Weight: 200 lb 2 oz BMI 33.3 Intake Visit Reasons: BL KNEES Chief Complaint: Left Knee Pain Accompanied by: Is patient in pain?: Yes Pain scale (1-10): 7 Allergies adalimumab (From Humira) Allergy (Verified 11/11/24 13:25) Vomiting cefaclor (From Ceclor) Allergy (Verified 11/11/24 13:25) Unknown celecoxib (From Celebrex) Allergy (Verified 11/11/24 13:25) Itching doxepin (Doxepin) Allergy (Verified 11/11/24 13:25) Unknown doxycycline calcium (From Vibramycin) Allergy (Verified 11/11/24 13:25) Unknown doxycycline hyclate (From Vibramycin) Allergy (Verified 11/11/24 13:25) Unknown doxycycline monohydrate (From Vibramycin) Allergy (Verified 11/11/24 13:25) Unknown hydrocodone bitartrate (From Vicodin) Allergy (Verified 11/11/24 13:25) Unknown hydroxychloroquine (Hydroxychloroquine) Allergy (Verified 11/11/24 13:25) Shortness of breath leflunomide (From Arava) Allergy (Verified 11/11/24 13:25) Other prochlorperazine (From Compazine) Allergy (Verified 11/11/24 13:25) Shortness of breath prochlorperazine edisylate (From Compazine) Allergy (Verified 11/11/24 13:25) Shortness of breath prochlorperazine maleate (From Compazine) Allergy (Verified 11/11/24 13:25) Shortness of breath sulfamethoxazole (From Septra) Allergy (Verified 11/11/24 13:25) Unknown terfenadine (From Seldane) Allergy (Verified 11/11/24 13:25) Unknown trazodone Allergy (Verified 11/11/24 13:25) Other trimethoprim (From Septra) Allergy (Verified 11/11/24 13:25) Unknown clarithromycin (From Biaxin) Adverse Reaction (Verified 11/11/24 13:25) Vomiting colestipol Adverse Reaction (Verified 11/11/24 13:25) Other dicyclomine HCl (From Bentyl) Adverse Reaction (Verified 11/11/24 13:25) Nausea/Vom/Diarrhea doxycycline (From Vibramycin) Adverse Reaction (Verified 11/11/24 13:25) Nausea fentanyl Adverse Reaction (Verified 11/11/24 13:25) Nausea fexofenadine HCl (From Vaibhav) Adverse Reaction (Verified 11/11/24 13:25) Other golimumab (From Simponi) Adverse Reaction (Verified 11/11/24 13:25) Other hydrocodone Adverse Reaction (Verified 11/11/24 13:25) Vomiting hydroxychloroquine sulfate (From Plaquenil) Adverse Reaction (Verified 11/11/24 13:25) Nausea levofloxacin (From Levaquin) Adverse Reaction (Verified 11/11/24 13:25) Other methotrexate Adverse Reaction (Verified 11/11/24 13:25) Upset Stomach Sulfa (Sulfonamide Antibiotics) Adverse Reaction (Verified 11/11/24 13:25) Vomiting Medications ???Medication ???Instructions ???Recorded ???Confirmed ???Type atorvastatin 10 mg tablet 10 mg PO QHS cholestorol 05/14/14 11/11/24 History citalopram 40 mg tablet 40 mg PO DAILY anxiety 05/14/14 History latanoprost 0.005 % eye drops 1 drp EACH EYE QHS glaucoma 11/11/24 History prednisone 10 mg tablet 10 mg PO PRN PRN flare up 05/14/14 11/11/24 History sumatriptan succinate 50 mg tablet 50 mg PO .X1 PRN PRN Headache 11/11/24 History promethazine 25 mg rectal 25 mg PO PRN PRN Nausea 12/17/14 0 11/11/24 History suppository hyoscyamine sulfate 0.125 mg 0.125 mg sublingual Q4H PRN PRN 11/11/24 History sublingual tablet Nausea oxycodone-acetaminophen 7.5 mg-325 1 tab PO TID pain 04/20/1611/11 History mg tablet buspirone 30 mg tablet 30 mg PO BID anxiety 12/20/1710/24 History amitriptyline 10 mg tablet 10 mg PO QHS 03/25/20 11/11/24 His tory gabapentin 300 mg capsule 900 mg PO DAILY 03/25/20 11/11/24 History omeprazole 20 mg capsule,delayed 40 mg PO DAILY 03/25/20 11/11/24 H istory release upadacitinib 15 mg tablet,extended 15 mg PO DAILY 03/25/20 11/11/24 History release 24 hr (Rinvoq) lisinopril 10 mg tablet 10 mg PO DAILY 08/18/22 11/11/24 H istory buprenorphine 20 mcg/hour weekly 1 patch topical QWEEK 05/01/24 History transdermal patch ondansetron 4 mg disintegrating 4 mg PO Q8H PRN PRN Nausea #10 tab s 06/24/24 11/11/24 Rx tablet Have you fallen in the past year?: Yes PFSH Medical History (Updated 11/11/24 @ 14:[address] Martir Carlin, DO) MRSA (methicillin resistant staph aureus) culture positive Wears glasses Post-menopausal Marijuana use History of steroid therapy Diabetes Walker as ambulation aid Low iron High cholesterol Back pain Injury of head and neck Migraine headache Heartburn Gastric reflux Non-smok (more content not included)... Normal [facility] Knee 1 or 2 Viewson 10-31-19 Knee 1 or 2 Views [facility] Imaging Services [address] [place] [address] Knee 1 or 2 Views MR#: [id number] Acct: [id number] Name: ZACKERY NUNEZ ESPINOZA Rep #: [id number] : 1960 F 64 From: Sydni Garcia i, MD PCP: Dr. Mikayla Strange MD Status: REG CLI Study: Knee 1 or 2 Views Date of Exam: 10/30/24 Exam# [id number] Ordering Dr: Latia Ward MD PROCEDURE: KNEE 1 OR 2 VIEWS 10/30/2024 REASON FOR EXAM: BILAT KNEE OA TECHNIQUE: 2 view(s) of the right knee COMPARISON: Right knee x-ray dated 06/24/2024. FINDINGS: Right knee hardware from right knee arthroplasty and ORIF in place. On the lateral view, lucency remains extending into the tibial plateau. Lucency seen through the patella bone. These could represent areas of nonhealing fracture. No suprapatellar joint effusion is seen. RAD/Knee 1 or 2 Views IMPRESSION: As above. Reading Location: [id number] CC: Dr. Latia Ward MD; Dr. Mikayla Strange MD Digital Marketing Manager: Signed [facility] Knee 1 or 2 Views [facility] Imaging Services [address] [place] [address] Knee 1 or 2 Views MR#: [id number] Acct: [id number] Name: ZACKERY NUNEZ ESPINOZA Rep #: [id number] : 1960 F 64 From: Porter Daniels MD PCP: Dr. Mikayla Strange MD Status: REG CLI Study: Knee 1 or 2 Views Date of Exam: 10/30/24 Exam# [id number] Ordering Dr: Latia Ward MD PROCEDURE: KNEE 1 OR 2 VIEWS 10/30/2024 REASON FOR EXAM: B/L KNEE OA TECHNIQUE: Two views left knee COMPARISON: None available FINDINGS: No fracture or dislocation. Medial and lateral compartment joint spaces appear within limits. Mild spurring at the tibial spines. Severe joint space narrowing suggested of the patellofemoral compartment with kojv-ml-ourj appearing contact, buttressing and large osteophyte formation. Enthesopathic change at the quadriceps side of the patella. Possible small joint effusion. RAD/Knee 1 or 2 Views IMPRESSION: Severe appearing osteoarthrosis of the patellofemoral compartment as above. Reading Location: [facility] CC: Dr. Latia Ward MD; Dr. Mikayla Strange MD Digital Marketing Manager: Signed Normal [facility] CNOVon 10-22-2024 CNOV Office Visit (FAMPWS ) -- JOÃOSTAR VÁSQUEZZACKERYNAVI DORAN ([id number]) 1960 F Date Time Provider Department 10/22/24 1:40 PM SAYDA CARR During your visit today, we recorded the following information about you: Pulse Respiration Blood pressure 71/minute 16/minute 108/62 Sayda Carr APRN.MATH AND SCIENCES DEPARTMENT CHAIR 10/22/2024 5:48 PM Signed This is a 64 year old female who presents today with: Zackery is a 64-year-old female with a history of rheumatoid arthritis, fibromyalgia, and GERD, presenting for follow-up on recent DEXA scan results HISTORY OF PRESENT ILLNESS: Bone Density: - Recent DEXA scan showed normal bone mass. However, high 10 year FRAX risk. - Previously took calcium and vitamin D supplements but discontinued. - Denies current use of bisphosphonates. GERD: - Takes omeprazole daily for GERD management. - Experiences frequent upset stomach and nausea. - Has tried Zantac in the past with less relief. Left Leg Fracture: - Sustained a left leg fracture after falling through a deck board while attempting to rescue a cat. Had follow-up yesterday. - Recent x-ray showed good healing progress. PAST MEDICAL HISTORY: PAST MEDICAL HISTORY Diagnosis Date Anxiety disorder Arthritis Chronic back pain Dr. Burks-pain management Depressive disorder, not elsewhere classified Diabetes (HCC) Pt reports she takes cinnamin tabs to manage her diabetes Essential hypertension, benign Fibromyalgia Glaucoma IBS (irritable bowel syndrome) Migraine, unspecified, without mention of intractable migraine without mention of status migrainosus PONV (postoperative nausea and vomiting) Pure hypercholesterolemia Rheumatoid arthritis (HCC) Sleep apnea pt states she snores frequently;though never worked-up for RUPESH Snoring PAST SURGICAL HISTORY Procedure Laterality Date [...] HX TUBAL LIGATION HX 08/11/1997 VAGINAL HYSTERECTOMY ALLERGIES Compazine [Prochlorperazine Edisylate], Vaibhav [Fexofenadine Hcl], Augmentin [Amoxicillin-Pot Clavulanate], Bentyl [Dicyclomine Hcl], Biaxin [Clarithromycin], Ceclor [Cefaclor], Celebrex [Celecoxib], Colestipol, Doxepin, Fentanyl, Humira [Adalimumab], Levaquin [Levofloxacin], Metformin, Plaquenil [Hydroxychloroquine Sulfate], Seldane, Septra [Sulfamethoxazole-Trimetho prim], Sulfa (Sulfonamide Antibiotics), Vibramycin [Doxycycline Calcium], and Vicodin [Hydrocodone-Acetaminophen ] MEDICATIONS Current Outpatient Medications Medication Sig hyoscyamine sublingual (LEVSIN/SL) 0.125 mg Dissolve 1 tablet under the tongue every 4 hours as needed. promethazine (PHENERGAN) 25 mg tablet Take 1 tablet by mouth every 6 hours as needed. citalopram (CELEXA) 40 mg tablet Take 1 tablet by mouth once daily. buprenorphine (BUTRANS) 20 mcg/hour transdermal patch Apply 1 Patch as directed one time a week for 7 days. Last APPLIED 05/08 acetaminophen (TYLENOL) 325 mg tablet Take 2 tablets by mouth every 6 hours as needed for pain. gabapentin (NEURONTIN) 300 mg capsule Take 3 capsules by mouth daily at bedtime for 30 days. gabapentin (NEURONTIN) 300 mg capsule Take 3 capsules by mouth once daily for 30 days. Daily at noon polyethylene glycol 3350 17 gram packet Take 1 Packet by mouth once daily as needed. Dissolve dose in 4 - 8 ounces of liquid and take as directed. lisinopril (ZESTRIL) 10 mg tablet Take 1 tablet by mouth once daily. estradiol (ESTRACE) 0.01 % (0.1 mg/gram) vaginal cream Use 3 g vaginally once daily. atorvastatin (LIPITOR) 10 mg tablet Take 1 tablet by mouth once daily. (Patient taking differently: Take 10 mg by mouth daily at bedtime.) busPIRone HCl 30 mg tablet Take 1 tablet by mouth two times a day. omeprazole (PRILOSEC) 40 mg capsule Take 40 mg by mouth once daily. SUMAtriptan (IMITREX) 50 mg tablet Take 1 tablet (50 mg) by mouth as needed. oxyCODONE-acetaminophen (PERCOCET) 5-325 mg tablet 1 tablet three times daily as needed. upadacitinib (RINVOQ ORAL) Take 15 mg by mouth. amitriptyline (ELAVIL) 10 mg tablet Take 1 tablet by mouth daily at bedtime. Cetirizine 10 mg cap Take by mouth. CALCIUM POLYCARBOPHIL (FIBER LAXATIVE ORAL) Take by mouth. multivitamin tablet Take 1 tablet by mouth once daily. latanoprost (XALATAN) 0.005 % ophthalmic solution 1 Drop daily at bedtime. docusate sodium (COLACE) 100 mg capsule Take 100 mg by mouth twice daily. No current facility-administered medications for (more content not included)... [facility] CNOVon 10-21-2024 CNOV Office Visit (AGPOB1 ) -- ZACKERY NUNEZ ([id number]) 1960 F Date Time Provider Department 10/21/24 2:45 PM GA BLACKBURN [id number] During your visit today, we recorded the following information about you: Respiration Weight Height 20/minute 91.6 kg 1.702 m Ga Blackburn PA-C 10/21/2024 3:06 PM Signed Orthopedic Post Operative Note DOS:04/2024 Procedure: Application of external fixator right lower extremity, conversion to ORIF right tibial plateau status post right total knee arthroplasty. Surgeon:MANA Subjective: Patient is a 64 years old seen in follow up now almost 6 months. She is doing well and continues to improve. Occasional start up pain through the medial aspect of the right knee. But no mechanical symptoms and good stability is noted. Resp 20 Ht 5' 7 (1.70m) Wt 202 lb (91.6kg) BMI 31.63 kg/(m2). Exam: Alert oriented NAD. Medial plateau incisions healing well ROM:0-115 Ligaments intact to valgus and varus stresses particularly at 30 and 60 degrees flexion. Homans' sign is negative Diagnostic Imaging: Stable appearing periprosthetic fracture right total knee arthroplasty with ORIF medial tibial plateau fracture Assessment:S/P periprosthetic right total knee arthroplasty medial tibial plateau fracture (04/2024) doing well and making good post operative recovery. Plan: Functional Plan: Continue to work for range of motion and strength and BMI control. Assistance Devices: Cane or walking stick for balance Physical/Occupational Therapy: Home exercise program to avoid repetitive impact Wound Care: N/A Pain Control: Ice, heat, extra strength Tylenol Additional: Follow-up at her 1 year anniversary with repeat 2 views right knee. Ga Blackburn PA-C Allergies As of Date: 10/21/2024 Noted Allergy Reaction COMPAZINE (PROCHLORPERAZINE EDISY*07/14/2014 14 - Other: See Comments Comments: Pt reports it makes more nausea VAIBHAV (FEXOFENADINE HCL) 07/14/2014 5 - Intolerance AUGMENTIN (AMOXICILLIN-POT CLAVUL*07/14/2014 5 - Intolerance BENTYL (DICYCLOMINE HCL) 06/24/2015 8 - GI Upset BIAXIN (CLARITHROMYCIN) 07/14/2014 5 - Intolerance CECLOR (CEFACLOR) 07/14/2014 5 - Intolerance CELEBREX (CELECOXIB) 07/14/2014 5 - Intolerance COLESTIPOL 11/24/2014 14 - Other: See Comments Comments: shaky/headaches/increased nausea DOXEPIN 07/14/2014 5 - Intolerance FENTANYL 07/14/2014 5 - Intolerance Comments: Pt doesn't remember the reaction HUMIRA (ADALIMUMAB) 07/14/2014 5 - Intolerance LEVAQUIN (LEVOFLOXACIN) 07/14/2014 5 - Intolerance METFORMIN 11/21/2023 8 - GI Upset Comments: Gi intolerance PLAQUENIL (HYDROXYCHLOROQUINE SUL*07/14/2014 5 - Intolerance SELDANE 07/14/2014 5 - Intolerance SEPTRA (SULFAMETHOXAZOLE-TRIMETHO *07/14/2014 5 - Intolerance SULFA (SULFONAMIDE ANTIBIOTICS) 07/14/2014 5 - Intolerance VIBRAMYCIN (DOXYCYCLINE CALCIUM) 07/14/2014 5 - Intolerance VICODIN (HYDROCODONE-ACETAMINOPHE* 07/14/2014 5 - Intolerance Date Reviewed: 10/21/2024 Reviewed by: Monik Guerin LPN - Fully Assessed Reason for Visit: Established Patient [175] Follow Up [171] Knee Pain [132] Numbness [75] Primary Visit Diagnosis: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, subsequent encounter [M97.11XD] Order(s):XR KNEE LIMITED 2V AP/LAT RIGHT [[id number]] Order #: [id number] Prescriptions as of 10/21/2024 - hyoscyamine sublingual (LEVSIN/SL) 0.125 mg Dissolve 1 tablet under the tongue every 4 hours as needed. - promethazine (PHENERGAN) 25 mg tablet Take 1 tablet by mouth every 6 hours as needed. - citalopram (CELEXA) 40 mg tablet Take 1 tablet by mouth once daily. - buprenorphine (BUTRANS) 20 mcg/hour transdermal patch Apply 1 Patch as directed one time a week for 7 days. Last APPLIED 05/08 - acetaminophen (TYLENOL) 325 mg tablet Take 2 tablets by mouth every 6 hours as needed for pain. - gabapentin (NEURONTIN) 300 mg capsule Take 3 capsules by mouth daily at bedtime for 30 days. - gabapentin (NEURONTIN) 300 mg capsule Take 3 capsules by mouth once daily for 30 days. Daily at noon - polyethylene glycol 3350 17 gram packet Take 1 Packet by mouth once daily as needed. Dissolve dose in 4 - 8 ounces of liquid and take as directed. - lisinopril (ZESTRIL) 10 mg tablet Take 1 tablet by mouth once daily. - estradiol (ESTRACE) 0.01 % (0.1 mg/gram) vaginal cream Use 3 g vaginally once daily. - busPIRone HCl 30 mg tablet Take 1 tablet by mouth two times a day. - lisinopril (ZESTRIL) 10 mg tablet Take 1 tablet by mouth once daily. - estradiol (ESTRACE) 0.01 % (0.1 mg/gram) vaginal cream Use 3 g vaginally once daily. - atorvastatin (LIPITOR) 10 mg tablet Take 1 tablet by mouth once daily. - omeprazole (PRILOSEC) 40 mg capsule Take 40 mg by mouth once daily. - SUMAtriptan (IMITREX) 50 mg tablet Take 1 tablet (50 mg) by mouth as needed. - oxyCODONE-ac (more content not included)... [facility] XR Knee - right AP and Later malcolm 10-21-2024 Diagnostic imaging: AP lateral and merchants view of the right knee ordered and interpreted by myself showing total knee arthroplasty in anatomic position. Medial tibial plateau with cortical fixation plate with multiple cortical fixation screws which are well-seated and without signs of fatigue or changes from previous views. Impression: Status post ORIF with external fixator and then conversion to tibial plateau fixation plate periprosthetic fracture right total knee arthroplasty which is stable. KATHY Acharya GENERAL RADIOLOGY [facility] Radiology Study observation (narrative) [facility] BD DXA - AXIAL SKELETONon BD DXA - AXIAL SKELETON * * *Final Report* * * DATE OF EXAM: Oct 11 2024 2:11PM WRB 0804 - BD DXA - AXIAL SKELETON / PROCEDURE REASON: multiple diagnoses * * * * Physician Interpretation * * * * EXAMINATION: DXA BONE DENSITOMETRY BD DXA - AXIAL SKELETON, BD DXA TRABECLR BONE SCORE (TBS) PATIENT DEMOGRAPHICS: Age: 64 years, Gender: Female SCANNER INFORMATION: DXA Model: [employer] - Green[employer]ocket C [address] Date Scanned: 10/11/2024 2:11 PM CLINICAL HISTORY: SCREENING Fracture Screening for osteoporosis . RISK FACTORS FOR OSTEOPOROSIS AND ASSOCIATED FRACTURES REPORTED BY THIS PATIENT: Please refer to Bone Health Questionnaire in the EMR CURRENT THERAPY: Please refer to Bone Health Questionnaire in the EMR TECHNICAL LIMITATIONS: RESULTS: Lumbar spine (L1, L2, L3, L4): 1.035 g/cm2, T-score -0.1 , Z-score 1.8 Lumbar spine: 2019 : 0.990 g/cm2 Statistically significant increase Right Femoral Neck: 0.811 g/cm2, T-score -0.3 , Z-score 1.3 Right Femoral Neck: 2019 : 0.910 g/cm2 Statistically significant decrease Right Total Hip: 0.882 g/cm2, T-score -0.5 , Z-score 0.8 Right Total Hip: 2019 : 1.039 g/cm2 Statistically significant decrease Left Femoral Neck: 0.774 g/cm2, T-score -0.7 , Z-score 0.9 Left Total Hip: 0.851 g/cm2, T-score -0.7 , Z-score 0.6 CHANGE IS STATISTICALLY SIGNIFICANT IN THE SPINE OR HIP IF GREATER THAN OR EQUAL TO 0.04 g/cm2 VERTEBRAL FRACTURE ASSESSMENT Not performed. TRABECULAR BONE ASSESSMENT TBS score: 1.151 Bone micro-architecture: Degraded (< or = 1.230) IMPRESSION: THE LOWEST T-SCORE IS -0.7 IN THE LEFT HIP 1) DIAGNOSIS (based on BMD alone): NORMAL BONE DENSITY Caution: Medical conditions other than osteoporosis may cause low bone density, such as osteomalacia or renal osteodystrophy. Clinical correlation is necessary. 2) FRACTURE RISK (Based on TBS adjusted FRAX): 10-year absolute fracture risk: - major osteoporotic fracture = 25 % - hip fracture = 1.9 % - A diagnosis of Osteoporosis, a 10 year probability of hip fracture greater than or equal to 3% or a 10 year probability of any major osteoporosis-related fracture greater than or equal to 20% should be considered for treatment. - DXA scanner generated FRAX calculations may slightly differ from online FRAX calculations due to differences in software versions. - All recommendations and calculations are to be considered as guidelines and should not replace sound clinical judgement - Caution: Fracture risk may be increased independent of BMD in patients with corticosteroid use, age greater than 65 years, or a history of prior fragility fracture. RECOMMENDATIONS: Follow-up in 2 years or as clinically indicated. Patients that are taking corticosteroids, are transplant recipients or have hyperparathyroidism should have annual follow-up. Follow-up scans should always be done on the same machine for accurate comparison. FOR MORE INFORMATION ABOUT DIAGNOSIS AND TREATMENT: [facility] Center for Osteoporosis and Metabolic Bone Disease:? www.ccf.org/arthritis/oste o National Osteoporosis Foundation:? www.nof.org International Society of Clinical Densitometry www.iscd.org Digital Marketing Manager: CHERELLE Transcribe Date/Time: Oct 13 2024 10:20A Dictated by : GA HUFFMAN MD This examination was interpreted and the report reviewed and electronically signed by: GA HUFFMAN MD on Oct 13 2024 10:22AM EST [id number] -0.7 [facility] BD DXA TRABECLR BONE SCORE ( TBS)on 10-11-2024 BD DXA TRABECLR BONE SCORE (TBS) * * *Final Report* * * DATE OF EXAM: Oct 11 2024 2:11PM WRB 0801 - BD DXA TRABECLR BONE SCORE (TBS) / PROCEDURE REASON: multiple diagnoses * * * * Physician Interpretation * * * * EXAMINATION: DXA BONE DENSITOMETRY BD DXA - AXIAL SKELETON, BD DXA TRABECLR BONE SCORE (TBS) PATIENT DEMOGRAPHICS: Age: 64 years, Gender: Female SCANNER INFORMATION: DXA Model: [employer]ocket C [address] Date Scanned: 10/11/2024 2:11 PM CLINICAL HISTORY: SCREENING Fracture Screening for osteoporosis . RISK FACTORS FOR OSTEOPOROSIS AND ASSOCIATED FRACTURES REPORTED BY THIS PATIENT: Please refer to Bone Health Questionnaire in the EMR CURRENT THERAPY: Please refer to Bone Health Questionnaire in the EMR TECHNICAL LIMITATIONS: RESULTS: Lumbar spine (L1, L2, L3, L4): 1.035 g/cm2, T-score -0.1 , Z-score 1.8 Lumbar spine: 2019 : 0.990 g/cm2 Statistically significant increase Right Femoral Neck: 0.811 g/cm2, T-score -0.3 , Z-score 1.3 Right Femoral Neck: 2019 : 0.910 g/cm2 Statistically significant decrease Right Total Hip: 0.882 g/cm2, T-score -0.5 , Z-score 0.8 Right Total Hip: 2019 : 1.039 g/cm2 Statistically significant decrease Left Femoral Neck: 0.774 g/cm2, T-score -0.7 , Z-score 0.9 Left Total Hip: 0.851 g/cm2, T-score -0.7 , Z-score 0.6 CHANGE IS STATISTICALLY SIGNIFICANT IN THE SPINE OR HIP IF GREATER THAN OR EQUAL TO 0.04 g/cm2 VERTEBRAL FRACTURE ASSESSMENT Not performed. TRABECULAR BONE ASSESSMENT TBS score: 1.151 Bone micro-architecture: Degraded (< or = 1.230) IMPRESSION: THE LOWEST T-SCORE IS -0.7 IN THE LEFT HIP 1) DIAGNOSIS (based on BMD alone): NORMAL BONE DENSITY Caution: Medical conditions other than osteoporosis may cause low bone density, such as osteomalacia or renal osteodystrophy. Clinical correlation is necessary. 2) FRACTURE RISK (Based on TBS adjusted FRAX): 10-year absolute fracture risk: - major osteoporotic fracture = 25 % - hip fracture = 1.9 % - A diagnosis of Osteoporosis, a 10 year probability of hip fracture greater than or equal to 3% or a 10 year probability of any major osteoporosis-related fracture greater than or equal to 20% should be considered for treatment. - DXA scanner generated FRAX calculations may slightly differ from online FRAX calculations due to differences in software versions. - All recommendations and calculations are to be considered as guidelines and should not replace sound clinical judgement - Caution: Fracture risk may be increased independent of BMD in patients with corticosteroid use, age greater than 65 years, or a history of prior fragility fracture. RECOMMENDATIONS: Follow-up in 2 years or as clinically indicated. Patients that are taking corticosteroids, are transplant recipients or have hyperparathyroidism should have annual follow-up. Follow-up scans should always be done on the same machine for accurate comparison. FOR MORE INFORMATION ABOUT DIAGNOSIS AND TREATMENT: [facility] Center for Osteoporosis and Metabolic Bone Disease:? www.ccf.org/arthritis/oste o National Osteoporosis Foundation:? www.nof.org International Society of Clinical Densitometry www.iscd.org Digital Marketing Manager: CHERELLE Transcribe Date/Time: Oct 13 2024 10:20A Dictated by : GA HUFFMAN MD This examination was interpreted and the report reviewed and electronically signed by: GA HUFFMAN MD on Oct 13 2024 10:22AM EST [id number] -0.7 [facility] Re-Evaluation - PT (1)on Re-Evaluation - PT (1) [facility] [address] [place] [address] [address] [place] [address] / REEVALUATION / MEDICARE RECERTIFICATION PHYSICAL THERAPY MR#: [id number] Acct: [id number] Name: ZACKERY NUNEZ Rep #: [id number] : 1960 64 From: Reuben Shields DPT Referring Dr.: Sydni Waggoner MD Status:REG RCR Insurance: [employer] MEDICARE SELF PAY INSURANCE Re-Evaluation Intro: Sydni Waggoner MD, It has been my pleasure to treat ZACKERY NUNEZ over the last 16 visits for periprosthetic fracture of R knee joint. Please see the progress note below for an update on the physical therapy plan of care! Subjective Subjective: Pt. reports being 95% better overall. Pt. reports having some difficulty with going up and down her stairs. Pt. is pleased with her progress and is pleased with her ability to ambulate. Objective Objective/Function: AROM: 0-0-86deg, PROM 0-0-90deg. MMT: LLE: hip: flexion 36.5#, abd 20.7#; knee: ext 45.7#, flexion 31.2# RLE: hip: flexion 25.5#, abd 16.9#; knee: ext 37.3#, flexion 25# PT. is walking with a SPC now with decent pattern, no increase in her baseline pain. TUG: with SPC 12.13, 10.4 without AD GAIT: pt. ambulates well with SPC. Good technique noted. Pt. Sligh increase in lateral lean to L side. STAIRS: Pt. is able to ascend with 1 HR with reciprocal pattern, a little bit more difficult on the R side. Plan Plan Plan: Pt is going to trial exercises on her own for 2-3 weeks prior to seeing physician. Pt. is able to come back in if not progressing or having issues. We will be in contact after her visit with her physician. Balance/Gait/Functional tests Balance/Special Test Scores Lower Extremity Functional Score: 26 TUG Test Time Seconds: 10.4 Tug Test: <20 sec.=mostly independent 30 Second Chair Rise Test Seconds: 12 6 Minute Walk Test: 1051 Goals Goals Goal 1:: LTG: Pt. to be I with HEP. Goal Time Frame: 4-6 Weeks Goal Progress: Goal Met Goal 2:: LTG: pt. to have increased R knee ROM to 0-0-90deg allowing for increased ability to complete functional mobility. Goal Time Frame: 4-6 Weeks Goal Progress: Goal Met Goal 3:: LTG: Pt. to be able to ambulate with LRD with normal gait pattern and safe independence. Goal Time Frame: 4-6 Weeks Goal Progress: Goal Met Goal 4:: LTG: Pt. to be able to complete 6 MWT with LRD with distance of at least 800feet indicating increased endurance and functional mobility. Goal Time Frame: 6-8 Weeks Goal Progress: Goal Met Goal 5:: LTG: pt. to complete sit to stand from standard chair without use of UEs. Goal Time Frame: 4-6 Weeks Goal Progress: Goal Met Goal 6:: LTG: pt. to be able to negotiate 1 flight of stairs with 2 HR allowing for increased ability to negotiate her home. Goal Time Frame: 4-6 Weeks Goal Progress: Goal Met Anticipated Interventions Anticipated Interventions Patient/Client Instruction: Educate patient on: Condition, Plan of Care, Risk Factors and Benefits of Fitness Program For the Purpose of:: To foster healthy habits, To improve decision making, To facilitate caregiver knowledge, To improve self management, To prevent re-injury and To improve ability to perform tasks related to life management Therapeutic Exercise to Include: Strength training, Power training, Endurance training, Balance training, Postural training, Flexibilty training, Gait and locomotor training, Passive ROM and Active ROM For the Purpose of:: To decrease pain, To increase ROM, To improve nutrient delivery to tissue, To increase oxygenation perfusion, To improve muscle performance and motor function, To improve ability to perform ADL's, To increase tolerance to activity/condition/positio n, To improve gait and locomotor functions, To improve health of tissue, To decrease soft tissue restriction and To increase flexibility/ROM Manual Therapy Techniques to Include: Mobilization and Soft tissue mobilization For the Purpose of:: To decrease pain, To decrease swelling/inflammation, To increase ROM, To improve nutrient delivery to tissue and To increase oxygenation perfusion Cryotherapy (ice pack, ice massage): Yes Vasopneumatic device: Yes For the Purpose of:: To decrease pain, To decrease swelling/inflammation, To increase ROM, To improve nutrient delivery to tissue, To increase oxygenation perfusion and To improve muscle performance and motor function Re-Evaluation Ending Re-evaluation ending: Please do not hesitate to contact me at [phone] by phone or if you have questions or concerns regarding this new plan of care! Sincerely, Reuben Shields DPT 10/03/24 8009 CC: Dr. Mikayla Strange MD; Sydni Waggoner MD CLS Signed For Medicare only, by signing this I certify the plan of care. (more content not included)... [facility] 09-23-2024 [facility] Telephone (FAMPWS) -- ZACKERY NUNEZ ([id number]) 1960 F Date Time Provider Department 09/23/24 MIKAYLA STRANGE FAMPWS During your visit today, we recorded the following information about you: Adriano Paniagua, RN 09/23/2024 2:13 PM Signed Natalyn- nurse - [facility]- reporting to pcp, patient had a fracture recently. Reports patient is due for a bone density test. Reports patient's compliance date ends 11/30/24. Asking pcp to order a bone density test for patient. Mikayla Strange MD 09/23/2024 2:42 PM Signed Check if patient is willing to do Jade Lopez LPN 09/23/2024 3:48 PM Signed Patient states that she is willing to do. Please place order and we can route to scheduling. Mikayla Strange MD 09/23/2024 4:02 PM Signed Placed. Allergies As of Date: 09/23/2024 Noted Allergy Reaction COMPAZINE (PROCHLORPERAZINE EDISY*07/14/2014 14 - Other: See Comments Comments: Pt reports it makes more nausea VAIBHAV (FEXOFENADINE HCL) 07/14/2014 5 - Intolerance AUGMENTIN (AMOXICILLIN-POT CLAVUL*07/14/2014 5 - Intolerance BENTYL (DICYCLOMINE HCL) 06/24/2015 8 - GI Upset BIAXIN (CLARITHROMYCIN) 07/14/2014 5 - Intolerance CECLOR (CEFACLOR) 07/14/2014 5 - Intolerance CELEBREX (CELECOXIB) 07/14/2014 5 - Intolerance COLESTIPOL 11/24/2014 14 - Other: See Comments Comments: shaky/headaches/increased nausea DOXEPIN 07/14/2014 5 - Intolerance FENTANYL 07/14/2014 5 - Intolerance Comments: Pt doesn't remember the reaction HUMIRA (ADALIMUMAB) 07/14/2014 5 - Intolerance LEVAQUIN (LEVOFLOXACIN) 07/14/2014 5 - Intolerance METFORMIN 11/21/2023 8 - GI Upset Comments: Gi intolerance PLAQUENIL (HYDROXYCHLOROQUINE SUL*07/14/2014 5 - Intolerance SELDANE 07/14/2014 5 - Intolerance SEPTRA (SULFAMETHOXAZOLE-TRIMETHO *07/14/2014 5 - Intolerance SULFA (SULFONAMIDE ANTIBIOTICS) 07/14/2014 5 - Intolerance VIBRAMYCIN (DOXYCYCLINE CALCIUM) 07/14/2014 5 - Intolerance VICODIN (HYDROCODONE-ACETAMINOPHE* 07/14/2014 5 - Intolerance Date Reviewed: 08/14/2024 Reviewed by: Jade Lopez LPN - Fully Assessed Reason for Visit: Bone Density order request [Other] Primary Visit Diagnosis:Fracture [T14.8XXA] Other Visit Diagnosis:Screening for osteoporosis [Z13.820] Order(s):DXA-AXIAL SKELETON [[id number]] Order #: [id number] FUTURE BD DXA TRABECULAR BONE SCORE (TBS) [[id number]] Order #: [id number] FUTURE Prescriptions as of 10/17/2024 - hyoscyamine sublingual (LEVSIN/SL) 0.125 mg Dissolve 1 tablet under the tongue every 4 hours as needed. - promethazine (PHENERGAN) 25 mg tablet Take 1 tablet by mouth every 6 hours as needed. - citalopram (CELEXA) 40 mg tablet Take 1 tablet by mouth once daily. - buprenorphine (BUTRANS) 20 mcg/hour transdermal patch Apply 1 Patch as directed one time a week for 7 days. Last APPLIED 05/08 - acetaminophen (TYLENOL) 325 mg tablet Take 2 tablets by mouth every 6 hours as needed for pain. - gabapentin (NEURONTIN) 300 mg capsule Take 3 capsules by mouth daily at bedtime for 30 days. - gabapentin (NEURONTIN) 300 mg capsule Take 3 capsules by mouth once daily for 30 days. Daily at noon - polyethylene glycol 3350 17 gram packet Take 1 Packet by mouth once daily as needed. Dissolve dose in 4 - 8 ounces of liquid and take as directed. - lisinopril (ZESTRIL) 10 mg tablet Take 1 tablet by mouth once daily. - estradiol (ESTRACE) 0.01 % (0.1 mg/gram) vaginal cream Use 3 g vaginally once daily. - atorvastatin (LIPITOR) 10 mg tablet Take 1 tablet by mouth once daily. - busPIRone HCl 30 mg tablet Take 1 tablet by mouth two times a day. - omeprazole (PRILOSEC) 40 mg capsule Take 40 mg by mouth once daily. - SUMAtriptan (IMITREX) 50 mg tablet Take 1 tablet (50 mg) by mouth as needed. - oxyCODONE-acetaminophen (PERCOCET) 5-325 mg tablet 1 tablet three times daily as needed. - upadacitinib (RINVOQ ORAL) Take 15 mg by mouth. - amitriptyline (ELAVIL) 10 mg tablet Take 1 tablet by mouth daily at bedtime. - Cetirizine 10 mg cap Take by mouth. - CALCIUM POLYCARBOPHIL (FIBER LAXATIVE ORAL) Take by mouth. - multivitamin tablet Take 1 tablet by mouth once daily. - latanoprost (XALATAN) 0.005 % ophthalmic solution 1 Drop daily at bedtime. - docusate sodium (COLACE) 100 mg capsule Take 100 mg by mouth twice daily. 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 Normal [facility] Absolute lymphocyte countOrd ered By: Smita Buck on 09-06-2024 Lymphocytes Auto (Unsp spec) [#/Vol] 2.23 10*3/uL 0.83-4.51 [facility] Absolute neutrophil countOrd ered By: Smita Buck on 09-06-2024 Neutrophils (Bld) [#/Vol] 2.9 10*3/uL 2.0-7.7 [facility] Anion gap in Serum or Plasma Ordered By: Smita Buck on 09-06-2024 Anion gap [Moles/Vol] 12 mmol/L 5-15 [facility] Automated lymphocyte count a s percentage of total leukocytesOrdered By: Smita Buck on 09-06-2024 Lymphocytes/100 WBC Auto (Unsp spec) 40.0 % - [facility] BUN/creatinine ratioOrdered By: Smita Buck on 09-06-2024 Urea nitrogen/Creatinine [Mass ratio] 12.1 mg/mg 10-20 [facility] Basophil percentageOrdered B y: Smita Buck on 09-06-2024 Basophils/100 WBC (Bld) 0.4 % 0-1 [facility] Bilirubin, totalOrdered By: Smita Buck on 09-06-2024 Bilirubin [Mass/Vol] 0.23 mg/dL 0.00-1.30 [facility] CBC W/Diff, Automatedon 08-24 Absolute Lymph 2.23 X10 3/uL Normal 0.83-4.51 [facility] Comment on above: Performed By: #### M 100.636, M200.1000 #### [facility] [address] [place], [address] Absolute Neut 2.9 X10 3/uL Normal 2.0-7.7 [facility] Comment on above: Performed By: #### M 100.636, M200.1000 #### [facility] [address] [place], [address] Basophils/100 WBC (Bld) 0.4 % Normal 0-1 [facility] Comment on above: Performed By: #### M 100.636, M200.1000 #### [facility] [address] [place], [address] Eosinophils/100 WBC (Bld) 1.6 % Normal 0-5 [facility] Comment on above: Performed By: #### M 100.636, M200.1000 #### [facility] [address] [place], [address] Erythrocyte distribution width (RBC) [Ratio] 17.6 % High 11.6-14.6 [facility] Comment on above: Performed By: #### M 100.636, M200.1000 #### [facility] [address] [place], [address] Hematocrit (Bld) [Volume fraction] 36.5 % Low 37-47 [facility] Comment on above: Performed By: #### M 100.636, M200.1000 #### [facility] [address] [place], [address] Hemoglobin (Bld) [Mass/Vol] 11.3 g/dL Low 12.0-15.0 [facility] Comment on above: Performed By: #### 100.636, M200.1000 #### [facility] [address] [place], [address] IG% 0.200 Normal 0.0-0.9 [facility] Comment on above: Result Comment: IG% - Immature Granulocytes (promyelocytes, myelocytes and metamyelocytes) > 1% indicates that a LEFT SHIFT is Present. Performed By: #### M 100.636, M200.1000 #### [facility] [address] [place], [address] Lymphocytes/100 WBC (Bld) 40.0 % Normal 19-41 [facility] Comment on above: Performed By: #### M 100.636, M200.1000 #### [facility] [address] [place], [address] MCH (RBC) [Entitic mass] 25.6 pg Low 27.0-32.0 [facility] Comment on above: Performed By: #### M 100.636, M200.1000 #### [facility] [address] [place], [address] MCHC (RBC) [Mass/Vol] 31.0 g/dL Low 32-36 [facility] Comment on above: Performed By: #### M 100.636, M200.1000 #### [facility] [address] [place], [address] MCV (RBC) [Entitic vol] 82.8 fL Normal 81-99 [facility] Comment on above: Performed By: #### M 100.636, M200.1000 #### [facility] [address] [place], [address] Monocytes/100 WBC (Bld) 5.2 % Normal 0-10 [facility] Comment on above: Performed By: #### M 100.636, M200.1000 #### [facility] [address] [place], [address] Neutrophils/100 WBC (Bld) 52.6 % Normal 47-70 [facility] Comment on above: Performed By: #### M 100.636, M200.1000 #### [facility] [address] [place], [address] Nucleated RBC (Bld) [#/Vol] 0 10*3/uL Normal 0-5 [facility] Comment on above: Performed By: #### M 100.636, M200.1000 #### [facility] [address] [place], [address] Platelet mean volume (Bld) [Entitic vol] 10.9 fL Normal 6.2-12.0 [facility] Comment on above: Performed By: #### M 100.636, M200.1000 #### [facility] [address] [place], [address] Platelets (Bld) [#/Vol] 257 10*3/uL Normal 150-450 [facility] Comment on above: Performed By: #### M 100.636, M200.1000 #### [facility] [address] [place], [address] RBC (Bld) [#/Vol] 4.41 10*6/uL Normal 4.2-5.4 [facility] Comment on above: Performed By: #### M 100.636, M200.1000 #### [facility] [address] [place], [address] RDW SD 53.0 fl High 35.1-43.9 [facility] Comment on above: Performed By: #### M 100.636, M200.1000 #### [facility] [address] [place], [address] WBC (Bld) [#/Vol] 5.6 10*3/uL Normal 4.4-11.0 [facility] Comment on above: Performed By: #### M 100.636, M200.1000 #### [facility] [address] [place], [address] Carbon dioxide, total [Moles /volume] in Central venous bloodOrdered By: Smita Buck on 09-06-2024 CO2 [Moles/Vol] 23.0 mmol/L 21.0-32.0 [facility] Chloride assayOrdered By: Jerilyn Buck on 09-06-2024 Chloride [Moles/Vol] 103 mmol/L 98-108 [facility] Comprehensive Metabolic Prof ilon 09-06-2024 Albumin [Mass/Vol] 3.9 g/dL Normal 3.4-4.8 [facility] Comment on above: Order Comment: V Performed By: #### M 100.636, M200.1000 #### [facility] [address] [place], [address] Albumin/Globulin [Mass ratio] 1.3 {ratio} Normal 0.9-2.4 [facility] Comment on above: Order Comment: V Performed By: #### M 100.636, M200.1000 #### [facility] [address] [place], [address] ALK PHOS 89 U/L Normal 35-104 [facility] Comment on above: Order Comment: V Performed By: #### M 100.636, M200.1000 #### [facility] [address] [place], [address] ALT [Catalytic activity/Vol] 10 U/L Normal <=34 [facility] Comment on above: Order Comment: V Performed By: #### M 100.636, M200.1000 #### [facility] [address] [place], [address] AST [Catalytic activity/Vol] 23 U/L Normal <=31 [facility] Comment on above: Order Comment: V Performed By: #### M 100.636, M200.1000 #### [facility] [address] [place], [address] Bilirubin [Mass/Vol] 0.23 mg/dL Normal 0.00-1.30 [facility] Comment on above: Order Comment: V Performed By: #### M 100.636, M200.1000 #### [facility] [address] [place], [address] BUN/CRE 12.1 RATIO Normal 10-20 [facility] Comment on above: Order Comment: V Performed By: #### M 100.636, M200.1000 #### [facility] [address] [place], [address] Calcium [Mass/Vol] 9.1 mg/dL Normal 7.6-11.0 [facility] Comment on above: Order Comment: V Performed By: #### M 100.636, M200.1000 #### [facility] [address] [place], [address] Chloride [Moles/Vol] 103 mmol/L Normal 98-108 [facility] Comment on above: Order Comment: V Performed By: #### M 100.636, M200.1000 #### [facility] [address] [place], [address] CO2 [Moles/Vol] 23.0 mmol/L Normal 21.0-32.0 [facility] Comment on above: Order Comment: V Performed By: #### M 100.636, M200.1000 #### [facility] [address] [place], [address] Creatinine [Mass/Vol] 0.90 mg/dL Normal 0.70-1.20 [facility] Comment on above: Order Comment: V Performed By: #### M 100.636, M200.1000 #### [facility] [address] [place], [address] GAP 12 Normal 5-15 [facility] Comment on above: Order Comment: V Performed By: #### M 100.636, M200.1000 #### [facility] [address] [place], [address] GFR/1.73 sq M.predicted among non-blacks MDRD (S/P/Bld) [Vol rate/Area] 70 mL/min/{1.73_m2} Normal >60 [facility] Comment on above: Order Comment: V Result Comment: mL/m in/1.73m2 CKD-EPI Creatinine Equation (2020) Performed By: #### M 100.636, M200.1000 #### [facility] [address] [place], [address] Globulin (S) [Mass/Vol] 3.1 g/dL Normal 2.2-4.2 [facility] Comment on above: Order Comment: V Performed By: #### M 100.636, M200.1000 #### [facility] [address] [place], [address] Glucose [Mass/Vol] 84 mg/dL Normal 70-99 [facility] Comment on above: Order Comment: V Performed By: #### M 100.636, M200.1000 #### [facility] [address] [place], [address] Potassium [Moles/Vol] 4.3 mmol/L Normal 3.3-5.1 [facility] Comment on above: Order Comment: V Performed By: #### M 100.636, M200.1000 #### [facility] [address] [place], [address] Sodium [Moles/Vol] 138 mmol/L Normal 133-145 [facility] Comment on above: Order Comment: V Performed By: #### M 100.636, M200.1000 #### [facility] [address] [place], [address] T PROT 7.0 g/dL Normal 5.9-8.4 [facility] Comment on above: Order Comment: V Performed By: #### M 100.636, M200.1000 #### [facility] [address] [place], [address] Urea nitrogen [Mass/Vol] 11 mg/dL Normal 4-19 [facility] Comment on above: Order Comment: V Performed By: #### M 100.636, M200.1000 #### [facility] [address] [place], [address] Eosinophil percentageOrdered By: Smita Buck on 09-06-2024 Eosinophils/100 WBC (Bld) 1.6 % 0-5 [facility] Erythrocyte distribution wid th ratioOrdered By: Smita Buck on 09-06-2024 Erythrocyte distribution width (RBC) [Ratio] 17.6 % High 11.6-14.6 [facility] Erythrocyte distribution wid th standard deviationOrdered By: Smita Buck on 09-06-2024 Erythrocyte distribution width (RBC) [Entitic vol] 53.0 fL High 35.1-43.9 [facility] Erythrocyte distribution width (RBC) [Ratio] 53.0 fl High 35.1-43.9 [facility] GFR/1.73 sq M.predicted boris g non-blacks MDRD (S/P/Bld) [Vol rate/Area]Ordered By: Smita Buck on 09-06-2024 Estimated GFR (MDRD) Non-Af Amer 70 >60 [facility] Comment on above: mL/min/1.73m2 CKD-EP I Creatinine Equation (2020) Glomerular filtration rate ( GFR) estimation/1.73 sq m using serum, plasma, or whole bOrdered By: Smita Buck on 09-06-2024 GFR/1.73 sq M.predicted among non-blacks MDRD (S/P/Bld) [Vol rate/Area] 70 mL/min/{1.73_m2} >60 [facility] Comment on above: mL/min/1.73m2 CKD-EP I Creatinine Equation (2020) Hematocrit Auto (Bld) [Volum e fraction]Ordered By: Smita Buck on 09-06-2024 Hematocrit (Bld) [Volume fraction] 36.5 % Low 37-47 [facility] Hemoglobin measurementOrdere d By: Smita Buck on 09-06-2024 Hemoglobin (Bld) [Mass/Vol] 11.3 g/dL Low 12.0-15.0 [facility] Immature granulocytes/100 WB C Auto (Bld)Ordered By: Smita Buck on 09-06-2024 Immature granulocytes/100 WBC (Bld) 0.200 % 0.0-0.9 [facility] Comment on above: IG% - Immature Granu locytes (promyelocytes, myelocytes and metamyelocytes) > 1% indicates that a LEFT SHIFT is Present. Laboratory - Chemistry and C hemistry - challengeOrdered By: Smita Buck on 09-06-2024 AST [Catalytic activity/Vol] 23 U/L <32 [facility] Lymphocytes Auto (Unsp spec) [#/Vol]Ordered By: Smita Buck on 09-06-2024 Lymphocytes (Bld) [#/Vol] 2.23 10*3/uL 0.83-4.51 [facility] Lymphocytes/100 WBC Auto (Un sp spec)Ordered By: Smita Buck on 09-06-2024 Lymphocytes/100 WBC (Bld) 40.0 % 19-41 [facility] MCV (mean corpuscular volume ) determinationOrdered By: Smita Buck on 09-06-2024 MCV (RBC) [Entitic vol] 82.8 fL 81-99 [facility] Mean corpuscular hemoglobin (MCH) determinationOrdered By: Smita Buck on 09-06-2024 MCH (RBC) [Entitic mass] 25.6 pg Low 27.0-32.0 [facility] Mean corpuscular hemoglobin concentration (MCHC) determinationOrdered By: Smita Buck on 09-06-2024 MCHC (RBC) [Mass/Vol] 31.0 g/dL Low 32-36 [facility] Mean platelet volume determi nationOrdered By: Smita Buck on 09-06-2024 Platelet mean volume (Bld) [Entitic vol] 10.9 fL 6.2-12.0 [facility] Monocyte percentageOrdered B y: Smita Buck on 09-06-2024 Monocytes/100 WBC (Bld) 5.2 % 0-10 [facility] Neutrophil percentageOrdered By: Smita Buck on 09-06-2024 Neutrophils/100 WBC (Bld) 52.6 % 47-70 [facility] Nucleated red blood cell per centageOrdered By: Smita Buck on 09-06-2024 Nucleated RBC/100 WBC (Bld) [Ratio] 0 % 0-5 [facility] Platelet countOrdered By: Jerilyn Buck on 09-06-2024 Platelets (Bld) [#/Vol] 257 10*3/uL 150-450 [facility] Potassium (Unsp spec) [Mass/ Vol]Ordered By: Smita Buck on 09-06-2024 Potassium [Moles/Vol] 4.3 mmol/L 3.3-5.1 [facility] Potassium measurement (mass/ volume)Ordered By: Smita Buck on 09-06-2024 Potassium (Unsp spec) [Mass/Vol] 4.3 mmol/L 3.3-5.1 [facility] RBC Auto (Bld) [#/Vol]Ordere d By: Smita Buck on 09-06-2024 RBC (Bld) [#/Vol] 4.41 10*6/uL 4.2-5.4 [facility] Serum creatinine measurement (mass/volume)Ordered By: Smita Buck on 09-06-2024 Creatinine [Mass/Vol] 0.90 mg/dL 0.70-1.20 [facility] Serum globulin measurementOr dered By: Smita Buck on 09-06-2024 Globulin (S) [Mass/Vol] 3.1 g/dL 2.2-4.2 [facility] Serum glucose measurement (m ass/volume)Ordered By: Smita Buck on 09-06-2024 Glucose [Mass/Vol] 84 mg/dL 70-99 [facility] Serum or plasma alanine cyr otransferase (ALT) measurementOrdered By: Smita Buck on 09-06-2024 ALT [Catalytic activity/Vol] 10 U/L <35 [facility] Serum or plasma albumin francisco urement (mass/volume)Ordered By: Smita Buck on 09-06-2024 Albumin [Mass/Vol] 3.9 g/dL 3.4-4.8 [facility] Serum or plasma albumin/glob ulin mass ratioOrdered By: Smita Buck on 09-06-2024 Albumin/Globulin [Mass ratio] 1.3 {ratio} 0.9-2.4 [facility] Serum or plasma alkaline john sphatase measurementOrdered By: Smita Buck on 09-06-2024 ALP [Catalytic activity/Vol] 89 U/L 35-104 [facility] Serum or plasma calcium francisco urement (mass/volume)Ordered By: Smita Buck on 09-06-2024 Calcium [Mass/Vol] 9.1 mg/dL 7.6-11.0 [facility] Serum or plasma urea nitroge n measurement (mass/volume)Ordered By: Smita Buck on 09-06-2024 Urea nitrogen [Mass/Vol] 11 mg/dL 4-19 [facility] Sodium levelOrdered By: Vero Buck on 09-06-2024 Sodium [Moles/Vol] 138 mmol/L 133-145 [facility] Total proteinOrdered By: Christopher Buck on 09-06-2024 Protein [Mass/Vol] 7.0 g/dL 5.9-8.4 [facility] White blood cell (WBC) count Ordered By: Smita Buck on 09-06-2024 WBC (Bld) [#/Vol] 5.6 10*3/uL 4.4-11.0 [facility] CNPNon 08-19-2024 CNPN Telephone (FAMPWS) -- ZACKERY NUNEZ ([id number]) 1960 F Date Time Provider Department 08/19/24 MIKAYLA STRANGE [facility] During your visit today, we recorded the following information about you: Mikayla Strange MD 08/19/2024 8:03 AM Signed Has a very resistant uti. Has had issues with levaquin but says has used cipro in the past. Would switch to that since other antibiotics it is sensitive to are iv and would require hospitalization to treat. Adeline Hensley RN 08/19/2024 8:18 AM Signed Pt called and is notified of providers results and instructions. Pt voices understanding. Please send Rx to [facility] in [place]. Adeline Hensley RN Allergies As of Date: 08/19/2024 Noted Allergy Reaction COMPAZINE (PROCHLORPERAZINE EDISY*07/14/2014 14 - Other: See Comments Comments: Pt reports it makes more nausea VAIBHAV (FEXOFENADINE HCL) 07/14/2014 5 - Intolerance AUGMENTIN (AMOXICILLIN-POT CLAVUL*07/14/2014 5 - Intolerance BENTYL (DICYCLOMINE HCL) 06/24/2015 8 - GI Upset BIAXIN (CLARITHROMYCIN) 07/14/2014 5 - Intolerance CECLOR (CEFACLOR) 07/14/2014 5 - Intolerance CELEBREX (CELECOXIB) 07/14/2014 5 - Intolerance COLESTIPOL 11/24/2014 14 - Other: See Comments Comments: shaky/headaches/increased nausea DOXEPIN 07/14/2014 5 - Intolerance FENTANYL 07/14/2014 5 - Intolerance Comments: Pt doesn't remember the reaction HUMIRA (ADALIMUMAB) 07/14/2014 5 - Intolerance LEVAQUIN (LEVOFLOXACIN) 07/14/2014 5 - Intolerance METFORMIN 11/21/2023 8 - GI Upset Comments: Gi intolerance PLAQUENIL (HYDROXYCHLOROQUINE SUL*07/14/2014 5 - Intolerance SELDANE 07/14/2014 5 - Intolerance SEPTRA (SULFAMETHOXAZOLE-TRIMETHO *07/14/2014 5 - Intolerance SULFA (SULFONAMIDE ANTIBIOTICS) 07/14/2014 5 - Intolerance VIBRAMYCIN (DOXYCYCLINE CALCIUM) 07/14/2014 5 - Intolerance VICODIN (HYDROCODONE-ACETAMINOPHE* 07/14/2014 5 - Intolerance Date Reviewed: 08/14/2024 Reviewed by: Jade Lopez LPN - Fully Assessed Reason for Visit: Results [95] Order(s):ciprofloxacin HCl (CIPRO) 250 mg tabletTake 1 tablet by mouth two times a day for 7 days.Disp: 14 tabletRfl: 0 Prescriptions as of 08/19/2024 - ciprofloxacin HCl (CIPRO) 250 mg tablet Take 1 tablet by mouth two times a day for 7 days. - hyoscyamine sublingual (LEVSIN/SL) 0.125 mg Dissolve 1 tablet under the tongue every 4 hours as needed. - promethazine (PHENERGAN) 25 mg tablet Take 1 tablet by mouth every 6 hours as needed. - citalopram (CELEXA) 40 mg tablet Take 1 tablet by mouth once daily. - buprenorphine (BUTRANS) 20 mcg/hour transdermal patch Apply 1 Patch as directed one time a week for 7 days. Last APPLIED 05/08 - acetaminophen (TYLENOL) 325 mg tablet Take 2 tablets by mouth every 6 hours as needed for pain. - gabapentin (NEURONTIN) 300 mg capsule Take 3 capsules by mouth daily at bedtime for 30 days. - gabapentin (NEURONTIN) 300 mg capsule Take 3 capsules by mouth once daily for 30 days. Daily at noon - polyethylene glycol 3350 17 gram packet Take 1 Packet by mouth once daily as needed. Dissolve dose in 4 - 8 ounces of liquid and take as directed. - lisinopril (ZESTRIL) 10 mg tablet Take 1 tablet by mouth once daily. - estradiol (ESTRACE) 0.01 % (0.1 mg/gram) vaginal cream Use 3 g vaginally once daily. - atorvastatin (LIPITOR) 10 mg tablet Take 1 tablet by mouth once daily. - busPIRone HCl 30 mg tablet Take 1 tablet by mouth two times a day. - omeprazole (PRILOSEC) 40 mg capsule Take 40 mg by mouth once daily. - SUMAtriptan (IMITREX) 50 mg tablet Take 1 tablet (50 mg) by mouth as needed. - oxyCODONE-acetaminophen (PERCOCET) 5-325 mg tablet 1 tablet three times daily as needed. - upadacitinib (RINVOQ ORAL) Take 15 mg by mouth. - amitriptyline (ELAVIL) 10 mg tablet Take 1 tablet by mouth daily at bedtime. - Cetirizine 10 mg cap Take by mouth. - CALCIUM POLYCARBOPHIL (FIBER LAXATIVE ORAL) Take by mouth. - multivitamin tablet Take 1 tablet by mouth once daily. - latanoprost (XALATAN) 0.005 % ophthalmic solution 1 Drop daily at bedtime. - docusate sodium (COLACE) 100 mg capsule Take 100 mg by mouth twice daily. 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 Normal [facility] 08-16-2024 [facility] Telephone ([facility]) -- ZACKERY NUNEZ ([id number]) 1960 F Date Time Provider Department 08/16/24 MIKAYLA STRANGE [facility] During your visit today, we recorded the following information about you: Mikayla Strange MD 08/16/2024 8:13 AM Signed Her urine does look infected. Culture is pending. Add macrobid. Her anemia from surgery is still present. Would add a multivitamin with iron. Soraida Escudero LPN 08/16/2024 8:21 AM Signed Phoned patient went over results, notes from Dr Strange with understanding. Patient said she usually takes Cipro rx, she uses [facility] for her pharmacy. She did not want Macrobid due to her list of allergies. Patient said she has been taking a multivitamin with iron. Mikayla Strange MD 08/16/2024 8:58 AM Signed Macrobid is not related to any of her current allergies. Actually cipro is-it is nearly identical to levaquin. Would stick with macrobid. It is one of the few antibiotics we can use given her allergies/intolerances. Evelyn Castaneda MA 08/16/2024 9:30 AM Signed Patient informed to take Macrobid. She agreed. Please cancel Rx that was sent to [facility] and please send to local [facility]. Evelyn Castaneda MA Allergies As of Date: 08/16/2024 Noted Allergy Reaction COMPAZINE (PROCHLORPERAZINE EDISY*07/14/2014 14 - Other: See Comments Comments: Pt reports it makes more nausea VAIBHAV (FEXOFENADINE HCL) 07/14/2014 5 - Intolerance AUGMENTIN (AMOXICILLIN-POT CLAVUL*07/14/2014 5 - Intolerance BENTYL (DICYCLOMINE HCL) 06/24/2015 8 - GI Upset BIAXIN (CLARITHROMYCIN) 07/14/2014 5 - Intolerance CECLOR (CEFACLOR) 07/14/2014 5 - Intolerance CELEBREX (CELECOXIB) 07/14/2014 5 - Intolerance COLESTIPOL 11/24/2014 14 - Other: See Comments Comments: shaky/headaches/increased nausea DOXEPIN 07/14/2014 5 - Intolerance FENTANYL 07/14/2014 5 - Intolerance Comments: Pt doesn't remember the reaction HUMIRA (ADALIMUMAB) 07/14/2014 5 - Intolerance LEVAQUIN (LEVOFLOXACIN) 07/14/2014 5 - Intolerance METFORMIN 11/21/2023 8 - GI Upset Comments: Gi intolerance PLAQUENIL (HYDROXYCHLOROQUINE SUL*07/14/2014 5 - Intolerance SELDANE 07/14/2014 5 - Intolerance SEPTRA (SULFAMETHOXAZOLE-TRIMETHO *07/14/2014 5 - Intolerance SULFA (SULFONAMIDE ANTIBIOTICS) 07/14/2014 5 - Intolerance VIBRAMYCIN (DOXYCYCLINE CALCIUM) 07/14/2014 5 - Intolerance VICODIN (HYDROCODONE-ACETAMINOPHE* 07/14/2014 5 - Intolerance Date Reviewed: 08/14/2024 Reviewed by: Jade Lopez LPN - Fully Assessed Reason for Visit: Results [95] Order(s):nitrofurantoin monohydrate and macrocrystal (MACROBID) 100 mg capsuleTake 1 capsule by mouth two times a day for 5 days.Disp: 10 capsuleRfl: 0 Prescriptions as of 08/16/2024 - nitrofurantoin monohydrate and macrocrystal (MACROBID) 100 mg capsule Take 1 capsule by mouth two times a day for 5 days. - hyoscyamine sublingual (LEVSIN/SL) 0.125 mg Dissolve 1 tablet under the tongue every 4 hours as needed. - promethazine (PHENERGAN) 25 mg tablet Take 1 tablet by mouth every 6 hours as needed. - citalopram (CELEXA) 40 mg tablet Take 1 tablet by mouth once daily. - buprenorphine (BUTRANS) 20 mcg/hour transdermal patch Apply 1 Patch as directed one time a week for 7 days. Last APPLIED 05/08 - acetaminophen (TYLENOL) 325 mg tablet Take 2 tablets by mouth every 6 hours as needed for pain. - gabapentin (NEURONTIN) 300 mg capsule Take 3 capsules by mouth daily at bedtime for 30 days. - gabapentin (NEURONTIN) 300 mg capsule Take 3 capsules by mouth once daily for 30 days. Daily at noon - polyethylene glycol 3350 17 gram packet Take 1 Packet by mouth once daily as needed. Dissolve dose in 4 - 8 ounces of liquid and take as directed. - lisinopril (ZESTRIL) 10 mg tablet Take 1 tablet by mouth once daily. - estradiol (ESTRACE) 0.01 % (0.1 mg/gram) vaginal cream Use 3 g vaginally once daily. - atorvastatin (LIPITOR) 10 mg tablet Take 1 tablet by mouth once daily. - busPIRone HCl 30 mg tablet Take 1 tablet by mouth two times a day. - omeprazole (PRILOSEC) 40 mg capsule Take 40 mg by mouth once daily. - SUMAtriptan (IMITREX) 50 mg tablet Take 1 tablet (50 mg) by mouth as needed. - oxyCODONE-acetaminophen (PERCOCET) 5-325 mg tablet 1 tablet three times daily as needed. - upadacitinib (RINVOQ ORAL) Take 15 mg by mouth. - amitriptyline (ELAVIL) 10 mg tablet Take 1 tablet by mouth daily at bedtime. - Cetirizine 10 mg cap Take by mouth. - CALCIUM POLYCARBOPHIL (FIBER LAXATIVE ORAL) Take by mouth. - multivitamin tablet Take 1 tablet by mouth once daily. - latanoprost (XALATAN) 0.005 % ophthalmic solution 1 Drop daily at bedtime. - docusate sodium (COLACE) 100 mg capsule Take 100 mg by mouth twice daily. Problem List As Of Date 08/16/2024 Noted Resolved Nausea alone [R11.0] 07/30/2014 07/30/2014 Abdominal pain, epigastric [R10.13] 07/30/2014 (more content not included)... Normal [facility] Bacteria Ur Culton 5 Bacteria identified Cx Nom (U) ORGANISM ID: 1 >=100,000 CFU/ml Klebsiella pneumoniae ORGANISM ID: 1 (KLEBSIELLA PNEUMONIAE) ANTIBIOTIC INTERPRETATION MANUEL STATUS REFERENCE RANGE Ampicillin R >=32 F Susceptible <=8 , Intermediate >8 , Resistant >16 Cefazolin R >=64 F Susceptible 0-16 , Intermediate <0 or >16 , Resistant >16 For uncomplicated urinary tract infections, cefazolin results can be used to predict susceptibility or resistance to cephalexin. Ceftriaxone R 8 F Susceptible <=1 , Intermediate >1 , Resistant >=4 Cefepime S <=1 F Susceptible <=2 , Susceptible-Dose Dependent >2 , Resistant >=16 Ertapenem S <=0.5 F Susceptible <=0.5 , Intermediate >.5 , Resistant >1 Meropenem S <=0.25 F Susceptible <=1 , Intermediate >1 , Resistant >2 Ampicillin/Sulbact R >=32 F Susceptible <=8 , Intermediate >8 , Resistant >16 Piperacillin/Tazobac R 64 F Susceptible <16 , Susceptible-Dose Dependent >=16 , Resistant >=32 Gentamicin R 8 F Susceptible <=2 , Intermediate >2 , Resistant >=8 Tobramycin R 8 F Susceptible <4 , Intermediate >=4 , Resistant >=8 Amikacin S <=2 F Susceptible <8 , Intermediate >=8 , Resistant >=16 Trimeth sulfameth R >=320 F Susceptible <=40 , Resistant >40 Ciprofloxacin S <=0.25 F Susceptible <0.5 , Intermediate >=.5 , Resistant >=1 Nitrofurantoin R 128 F Susceptible <=32 , Intermediate >32 , Resistant >64 Abnormal [facility] Comment on above: Performed By: #### 6 30-4 ####[facility] LABCLIA [id number] [address] [place] CBC W Auto Differential pane l (Bld)on 08-14-2024 Basophils (Bld) [#/Vol] 10*3/uL Normal <0.11 [facility] Comment on above: Order Comment: Speci men Type: BLOOD SPECIMENOrdering Facility: [facility] Address: [address] [place] [address] Performed By: #### 5 7021-8 ####[facility] LABCLIA [id number] [place] [address] [place] Basophils/100 WBC (Bld) 0.1 % Normal [facility] Comment on above: Order Comment: Speci men Type: BLOOD SPECIMENOrdering Facility: [facility] Address: [address] [place] [address] Performed By: #### 5 7021-8 ####[facility] LABCLIA [id number] [place] [address] [place] Differential cell count method Nom (Bld) Auto Normal [facility] Comment on above: Order Comment: Speci men Type: BLOOD SPECIMENOrdering Facility: [facility] Address: [address] [place] [address] Performed By: #### 5 7021-8 ####[facility] LABCLIA [id number] [place] [address] [place] Eosinophils (Bld) [#/Vol] 10*3/uL Normal <0.46 [facility] Comment on above: Order Comment: Speci men Type: BLOOD SPECIMENOrdering Facility: [facility] Address: [address] [place] [address] Performed By: #### 5 7021-8 ####[facility] LABCLIA [id number] [place] [address] [place] Eosinophils/100 WBC (Bld) 0.0 % Normal [facility] Comment on above: Order Comment: Speci men Type: BLOOD SPECIMENOrdering Facility: [facility] Address: [address] [place] [address] Performed By: #### 5 7021-8 ####[facility] LABCLIA [id number] [place] [address] [place] Erythrocyte distribution width (RBC) [Ratio] 15.6 % High 11.5-15.0 [facility] Comment on above: Order Comment: Speci men Type: BLOOD SPECIMENOrdering Facility: [facility] Address: [address] [place] [address] Performed By: #### 5 7021-8 ####[facility] LABIA [id number] [place] [address] [place] Hematocrit (Bld) [Volume fraction] 33.9 % Low 36.0-46.0 [facility] Comment on above: Order Comment: Speci men Type: BLOOD SPECIMENOrdering Facility: [facility] Address: [address] [place] [address] Performed By: #### 5 7021-8 ####[facility] LABIA [id number] [place] [address] [place] Hemoglobin (Bld) [Mass/Vol] 10.7 g/dL Low 11.5-15.5 [facility] Comment on above: Order Comment: Speci men Type: BLOOD SPECIMENOrdering Facility: [facility] Address: [address] [place] [address] Performed By: #### 5 7021-8 ####[facility] LABIA [id number] [place] [address] [place] Immature granulocytes (Bld) [#/Vol] 0.04 10*3/uL Normal <0.10 [facility] Comment on above: Order Comment: Speci men Type: BLOOD SPECIMENOrdering Facility: [facility] Address: [address] [place] [address] Performed By: #### 5 7021-8 ####[facility] LABIA [id number] [place] [address] [place] Immature granulocytes/100 WBC (Bld) 0.4 % Normal [facility] Comment on above: Order Comment: Speci men Type: BLOOD SPECIMENOrdering Facility: [facility] Address: [address] [place] [address] Performed By: #### 5 7021-8 ####[facility] LABCLIA [id number] [place] [address] [place] Lymphocytes (Bld) [#/Vol] 1.59 10*3/uL Normal 1.00-4.00 [facility] Comment on above: Order Comment: Speci men Type: BLOOD SPECIMENOrdering Facility: [facility] Address: [address] [place] [address] Performed By: #### 5 7021-8 ####[facility] LABCLIA [id number] [place] [address] [place] Lymphocytes/100 WBC (Bld) 14.5 % Normal [facility] Comment on above: Order Comment: Speci men Type: BLOOD SPECIMENOrdering Facility: [facility] Address: [address] [place] [address] Performed By: #### 5 7021-8 ####[facility] LABCLIA [id number] [place] [address] [place] MCH (RBC) [Entitic mass] 25.7 pg Low 26.0-34.0 [facility] Comment on above: Order Comment: Speci men Type: BLOOD SPECIMENOrdering Facility: [facility] Address: [address] [place] [address] Performed By: #### 5 7021-8 ####[facility] LABCLIA [id number] [place] [address] [place] MCHC (RBC) [Mass/Vol] 31.6 g/dL Normal 30.5-36.0 [facility] Comment on above: Order Comment: Speci men Type: BLOOD SPECIMENOrdering Facility: [facility] Address: [address] [place] [address] Performed By: #### 5 7021-8 ####[facility] LABCLIA [id number] [place] [address] [place] MCV (RBC) [Entitic vol] 81.5 fL Normal 80.0-100.0 [facility] Comment on above: Order Comment: Speci men Type: BLOOD SPECIMENOrdering Facility: [facility] Address: [address] [place] [address] Performed By: #### 5 7021-8 ####[facility] LABCLIA [id number] [place] [address] [place] Monocytes (Bld) [#/Vol] 0.63 10*3/uL Normal <0.87 [facility] Comment on above: Order Comment: Speci men Type: BLOOD SPECIMENOrdering Facility: [facility] Address: [address] [place] [address] Performed By: #### 5 7021-8 ####[facility] LABIA [id number] [place] [address] [place] Monocytes/100 WBC (Bld) 5.8 % Normal [facility] Comment on above: Order Comment: Speci men Type: BLOOD SPECIMENOrdering Facility: [facility] Address: [address] [place] [address] Performed By: #### 5 7021-8 ####[facility] LABCLIA [id number] [place] [address] [place] Neutrophils (Bld) [#/Vol] 8.68 10*3/uL High 1.45-7.50 [facility] Comment on above: Order Comment: Speci men Type: BLOOD SPECIMENOrdering Facility: [facility] Address: [address] [place] [address] Performed By: #### 5 7021-8 ####[facility] LABCLIA [id number] [place] [address] [place] Neutrophils/100 WBC (Bld) 79.2 % Normal [facility] Comment on above: Order Comment: Speci men Type: BLOOD SPECIMENOrdering Facility: [facility] Address: [address] [place] [address] Performed By: #### 5 7021-8 ####[facility] LABCLIA [id number] [place] [address] [place] Nucleated RBC (Bld) [#/Vol] 10*3/uL Normal <0.01 [facility] Comment on above: Order Comment: Speci men Type: BLOOD SPECIMENOrdering Facility: [facility] Address: [address] [place] [address] Performed By: #### 5 7021-8 ####[facility] LABCLIA [id number] [place] [address] [place] Nucleated RBC/100 WBC (Bld) [Ratio] 0.0 /100 WBC Normal [facility] Comment on above: Order Comment: Speci men Type: BLOOD SPECIMENOrdering Facility: [facility] Address: [address] [place] [address] Performed By: #### 5 7021-8 ####[facility] LABCLIA [id number] [place] [address] [place] Platelet mean volume (Bld) [Entitic vol] 12.0 fL Normal 9.0-12.7 [facility] Comment on above: Order Comment: Speci men Type: BLOOD SPECIMENOrdering Facility: [facility] Address: [address] [place] [address] Performed By: #### 5 7021-8 ####[facility] LABCLIA [id number] [place] [address] [place] Platelets (Bld) [#/Vol] 228 10*3/uL Normal 150-400 [facility] Comment on above: Order Comment: Speci men Type: BLOOD SPECIMENOrdering Facility: [facility] Address: [address] [place] [address] Performed By: #### 5 7021-8 ####[facility] LABIA [id number] [place] [address] [place] RBC (Bld) [#/Vol] 4.16 10*6/uL Normal 3.90-5.20 [facility] Comment on above: Order Comment: Speci men Type: BLOOD SPECIMENOrdering Facility: [facility] Address: [address] [place] [address] Performed By: #### 5 7021-8 ####[facility] LABIA [id number] [place] [address] [place] WBC (Bld) [#/Vol] 10.95 10*3/uL Normal 3.70-11.00 [facility] Comment on above: Order Comment: Speci men Type: BLOOD SPECIMENOrdering Facility: [facility] Address: [address] [place] [address] Performed By: #### 5 7021-8 ####[facility] LABIA [id number] [place] [address] [place] CNOV[facility] 08-14-2024 [facility] ZACKERY NUNEZ ([id number]) 1960 F Date Time Provider Department 08/14/24 3:20 PM MIKAYLA STRANGE [facility] During your visit today, we recorded the following information about you: Temperature Pulse Blood pressure Weight 98.9 degrees 69/minute 122/62 91.6 kg Mikayla Strange MD 08/14/2024 3:42 PM Signed Patient presents with: F/U 6 months HPI: Patient presents today for office visit for follow up. Had an external fixator and then developed a mrsa infection and was in [facility] after Fractured in April. Using walker. Is getting around better. Urology: patient is concerned about urinary symptoms. Duration of symptoms: 5 days Dysuria: Yes. Urinary urgency: Yes. Urinary frequency: Yes. Suprapubic pain: No. Back pain: Yes. Fever: No. Nausea: No. Vomiting: No. HTN: Patient is compliant with meds Yes Monitors bp at home: No. Denies side effects: Yes. Chest pain: No. Dyspnea: No. Edema: No. Palpitations: No. Syncope: No. Headache: No. Dizziness: No. DM:sugar was 96 yesterday. No issues Last A1c was just 5.8. Psych:tolerating her citralopram. Is doing well. No side effects. HLD:stil on cholesterol meds. Headaches are stable. Sees Dr Ward. Sees Dr uBck for rheumatoid arthritis. Had a post op anemia. MEDICATIONS: Current Outpatient Medications Medication Sig hyoscyamine sublingual (LEVSIN/SL) 0.125 mg Dissolve 1 tablet under the tongue every 4 hours as needed. promethazine (PHENERGAN) 25 mg tablet Take 1 tablet by mouth every 6 hours as needed. citalopram (CELEXA) 40 mg tablet Take 1 tablet by mouth once daily. buprenorphine (BUTRANS) 20 mcg/hour transdermal patch Apply 1 Patch as directed one time a week for 7 days. Last APPLIED 05/08 acetaminophen (TYLENOL) 325 mg tablet Take 2 tablets by mouth every 6 hours as needed for pain. gabapentin (NEURONTIN) 300 mg capsule Take 3 capsules by mouth daily at bedtime for 30 days. gabapentin (NEURONTIN) 300 mg capsule Take 3 capsules by mouth once daily for 30 days. Daily at noon polyethylene glycol 3350 17 gram packet Take 1 Packet by mouth once daily as needed. Dissolve dose in 4 - 8 ounces of liquid and take as directed. lisinopril (ZESTRIL) 10 mg tablet Take 1 tablet by mouth once daily. estradiol (ESTRACE) 0.01 % (0.1 mg/gram) vaginal cream Use 3 g vaginally once daily. atorvastatin (LIPITOR) 10 mg tablet Take 1 tablet by mouth once daily. (Patient taking differently: Take 10 mg by mouth daily at bedtime.) busPIRone HCl 30 mg tablet Take 1 tablet by mouth two times a day. omeprazole (PRILOSEC) 40 mg capsule Take 40 mg by mouth once daily. SUMAtriptan (IMITREX) 50 mg tablet Take 1 tablet (50 mg) by mouth as needed. oxyCODONE-acetaminophen (PERCOCET) 5-325 mg tablet 1 tablet three times daily as needed. upadacitinib (RINVOQ ORAL) Take 15 mg by mouth. amitriptyline (ELAVIL) 10 mg tablet Take 1 tablet by mouth daily at bedtime. Cetirizine 10 mg cap Take by mouth. CALCIUM POLYCARBOPHIL (FIBER LAXATIVE ORAL) Take by mouth. multivitamin tablet Take 1 tablet by mouth once daily. latanoprost (XALATAN) 0.005 % ophthalmic solution 1 Drop daily at bedtime. docusate sodium (COLACE) 100 mg capsule Take 100 mg by mouth twice daily. No current facility-administered medications for this visit. ALLERGIES: ALLERGIES Allergen Reactions Compazine [Prochlor* Other: See Comments Pt reports it makes more nausea Vaibhav [Fexofenadi* Intolerance Augmentin [Amoxicil* Intolerance Bentyl [Dicyclomine* GI Upset Biaxin [Clarithromy* Intolerance Ceclor [Cefaclor] Intolerance Celebrex [Celecoxib] Intolerance Colestipol Other: See Comments shaky/headaches/increased nausea Doxepin Intolerance Fentanyl Intolerance Pt doesn't remember the reaction Humira [Adalimumab] Intolerance Levaquin [Levofloxa* Intolerance Metformin GI Upset Gi intolerance Plaquenil [Hydroxyc* Intolerance Seldane Intolerance Septra [Sulfamethox* Intolerance Sulfa (Sulfonamide * Intolerance Vibramycin [Doxycyc* Intolerance Vicodin [Hydrocodon* Intolerance PAST MEDICAL HISTORY Diagnosis Date Anxiety disorder Arthritis Chronic back pain Dr. Burks-pain management Depressive disorder, not elsewhere classified Diabetes (HCC) Pt reports she takes cinnamin tabs to manage her diabetes Essential hypertension, benign Fibromyalgia Glaucoma IBS (irritable bowel syndrome) Migraine, unspecified, without mention of intractable migraine without mention of status migrainosus PONV (postoperative nausea and vomiting) Pure hypercholesterolemia Rheumatoid arthritis (HCC) Sleep apnea pt states she snores frequently;though never worked-up for RUPESH Snoring PAST SURGICAL HISTORY Procedure Laterality Date APPENDECTOMY 12/18/2014 Dr. Blakely APPENDECTOMY HX ARTHRP KNE CONDYLEANDPLATU MEDIALANDLAT C (more content not included)... Normal [facility] Comprehensive metabolic 2000 panelon 08-14-2024 Albumin [Mass/Vol] 4.1 g/dL Normal 3.9-4.[address] [facility] Comment on above: Order Comment: Speci men Type: BLOOD SPECIMENOrdering Facility: [facility] Address: [address] [place] [address] Performed By: #### 2 4323-8 ####[facility] LABCLIA [id number] [place] [address] [place] ALP [Catalytic activity/Vol] 70 U/L Normal 34-123 [facility] Comment on above: Order Comment: Speci men Type: BLOOD SPECIMENOrdering Facility: [facility] Address: [address] [place] [address] Performed By: #### 2 4323-8 ####[facility] LABCLIA [id number] [place] [address] [place] ALT [Catalytic activity/Vol] 10 U/L Normal 7-38 [facility] Comment on above: Order Comment: Speci men Type: BLOOD SPECIMENOrdering Facility: [facility] Address: [address] [place] [address] Performed By: #### 2 4323-8 ####[facility] LABCLIA [id number] [place] [address] [place] Anion gap [Moles/Vol] 12 mmol/L Normal 8-15 [facility] Comment on above: Order Comment: Speci men Type: BLOOD SPECIMENOrdering Facility: [facility] Address: [address] [place] [address] Performed By: #### 2 4323-8 ####[facility] LABCLIA [id number] [place] [address] [place] AST [Catalytic activity/Vol] 20 U/L Normal 13-35 [facility] Comment on above: Order Comment: Speci men Type: BLOOD SPECIMENOrdering Facility: [facility] Address: [address] [place], [place] [id number] Performed By: #### 2 4323-8 ####[facility] LABCLIA [id number] [address] [address] [place] Bilirubin [Mass/Vol] mg/dL Low 0.2-1.3 [facility] Comment on above: Order Comment: Speci men Type: BLOOD SPECIMENOrdering Facility: [facility] Address: [address] [place] [address] Performed By: #### 2 4323-8 ####[facility] LABCLIA [id number] [place] [address] [place] Calcium [Mass/Vol] 9.2 mg/dL Normal 8.5-10.[address] [facility] Comment on above: Order Comment: Speci men Type: BLOOD SPECIMENOrdering Facility: [facility] Address: [address] [place], [place] [address] Performed By: #### 2 4323-8 ####[facility] LABCLIA [id number] [place] [address] [place] Chloride [Moles/Vol] 98 mmol/L Normal 98-107 [facility] Comment on above: Order Comment: Speci men Type: BLOOD SPECIMENOrdering Facility: [facility] Address: [address] [place] [address] Performed By: #### 2 4323-8 ####[facility] LABCLIA [id number] [place] [id number] [place] CO2 [Moles/Vol] 24 mmol/L Normal 22-30 [facility] Comment on above: Order Comment: Speci men Type: BLOOD SPECIMENOrdering Facility: [facility] Address: [address] [place], [place] [address] Performed By: #### 2 4323-8 ####[facility] LABCLIA [id number] [address] [address] [place] Creatinine [Mass/Vol] 0.83 mg/dL Normal 0.58-0.96 [facility] Comment on above: Order Comment: Nery vidales Type: BLOOD SPECIMENOrdering Facility: [facility] Address: [address] [place] [address] Performed By: #### 2 4323-8 ####[facility] LABIA [id number] [place] [address] [place] Creatinine and Glomerular filtration rate.predicted panel (S/P/Bld) 78 mL/min/1.73m??? Normal >=60 [facility] Comment on above: Order Comment: Nery vidaels Type: BLOOD SPECIMENOrdering Facility: [facility] Address: [address] [place] [address] Result Comment: Sienna mated Glomerular Filtration Rate (eGFR) is calculated using the 2020 CKD-EPI creatinine equation. This equation utilizes serum creatinine, sex, and age as parameters. The creatinine assay has traceable calibration to isotope dilution-mass spectrometry. Refer to KDIGO guidelines for clinical interpretation. In patients with unstable renal function, e.g. those with acute kidney injury, the eGFR may not accurately reflect actual GFR. Performed By: #### 2 4323-8 ####[facility] LABIA [id number] [place] [address] [place] Glucose [Mass/Vol] 99 mg/dL Normal 74-[address] [facility] Comment on above: Order Comment: Nery vidales Type: BLOOD SPECIMENOrdering Facility: [facility] Address: [address] [place] [address] Result Comment: The [place] Diabetes Association (ADA) provides guidance for cutoff values for fasting glucose and random glucose. The ADA defines fasting as no caloric intake for at least 8 hours. Fasting plasma glucose results between 100 to 125 mg/dL indicate increased risk for diabetes (prediabetes). Fasting plasma glucose results greater than or equal to 126 mg/dL meet the criteria for diagnosis of diabetes. In the absence of unequivocal hyperglycemia, results should be confirmed by repeat testing. In a patient with classic symptoms of hyperglycemia or hyperglycemic crisis, random plasma glucose results greater than or equal to 200 mg/dL meet the criteria for diagnosis of diabetes. Reference: Standards of Medical Care in Diabetes 2016, [place] Diabetes Association. Diabetes Care. 2016.39(Suppl 1). Performed By: #### 2 4323-8 ####[facility] LABCLIA [id number] [place] [address] [place] Potassium [Moles/Vol] 3.9 mmol/L Normal 3.7-5.1 [facility] Comment on above: Order Comment: Speci men Type: BLOOD SPECIMENOrdering Facility: [facility] Address: [address] [place] [address] Performed By: #### 2 4323-8 ####[facility] LABCLIA [id number] [place] [address] [place] Protein [Mass/Vol] 7.4 g/dL Normal 6.3-8.[address] [facility] Comment on above: Order Comment: Speci men Type: BLOOD SPECIMENOrdering Facility: [facility] Address: [address] [place] [address] Performed By: #### 2 4323-8 ####[facility] LABCLIA [id number] [place] [address] [place] Sodium [Moles/Vol] 134 mmol/L Low 136-[address] [facility] Comment on above: Order Comment: Speci men Type: BLOOD SPECIMENOrdering Facility: [facility] Address: [address] [place] [address] Performed By: #### 2 4323-8 ####[facility] LABCLIA [id number] [place] [address] [place] Urea nitrogen [Mass/Vol] 15 mg/dL Normal 7-21 [facility] Comment on above: Order Comment: Speci men Type: BLOOD SPECIMENOrdering Facility: [facility] Address: [address] [place] [address] Performed By: #### 2 4323-8 ####[facility] LABCLIA [id number] [place] [address] [place] HbA1c (Bld)on 08-14-2024 Average glucose Estimated from glycated hemoglobin (Bld) [Mass/Vol] 114 mg/dL Normal [facility] Comment on above: Order Comment: Speci men Type: BLOOD SPECIMEN Ordering Facility: [facility] Address: [address] [place] [address] Result Comment: eAG: (Estimated average glucose) is a calculated value from HgbA1c and is patient support representative of the average blood glucose level in the last 2-3 month period. Performed By: #### 1 4338-8, 50697-6 #### [facility] CLIA [id number] [address] [place] [address] [place] HbA1c (Bld) [Mass fraction] 5.6 % Normal 4.3-5.6 [facility] Comment on above: Order Comment: Speci men Type: BLOOD SPECIMEN Ordering Facility: [facility] Address: [address] [place] [address] Result Comment: [place] Diabetes Association guidelines indicate that patients with HgbA1c in the range 5.7-6.4% are at increased risk for development of diabetes, and intervention by lifestyle modification may be beneficial. HgbA1c greater or equal to 6.5% is considered diagnostic of diabetes. Performed By: #### 1 4338-8, 01850-0 #### [facility] CLIA [id number] [address] [place] [address] [place] URINALYSIS, REFLEX MICROSCOP ICon 08-14-2024 BACTERIA UL 3784.9 uL High Negative [facility] Comment on above: Order Comment: Speci men Type: URINE SPECIMENOrdering Facility: [facility] Address: [address] [place] [address] Performed By: #### L [id number] ####[facility] LABCLIA [id number] [place] [address] [place] Bilirubin Ql (U) Negative Normal Negative [facility] Comment on above: Order Comment: Speci men Type: URINE SPECIMENOrdering Facility: [facility] Address: [address] [place] [address] Performed By: #### L [id number] ####[facility] LABCLIA [id number] [place] [address] [place] Clarity (Unsp spec) Clear Normal [facility] Comment on above: Order Comment: Speci men Type: URINE SPECIMENOrdering Facility: [facility] Address: [address] [place] [address] Performed By: #### L [id number] ####[facility] LABCLIA [id number] [place] [address] [place] [facility] Color (U) Yellow Normal Yellow [facility] Comment on above: Order Comment: Speci men Type: URINE SPECIMENOrdering Facility: [facility] Address: [address] [place] [address] Performed By: #### L [id number] ####[facility] LABCLIA [id number] [place] [address] [place] Epithelial cells LM.HPF (Urine sed) [#/Area] None Seen Normal [facility] Comment on above: Order Comment: Speci men Type: URINE SPECIMENOrdering Facility: [facility] Address: [address] [place] [address] Performed By: #### L [id number] ####[facility] LABCLIA [id number] [place] [address] [place] Glucose Test strip (U) [Mass/Vol] Negative Normal Negative [facility] Comment on above: Order Comment: Speci men Type: URINE SPECIMENOrdering Facility: [facility] Address: [address] [place] [address] Performed By: #### L [id number] ####[facility] LABCLIA [id number] [place] [address] [place] Hemoglobin Ql (U) Negative Normal Negative [facility] Comment on above: Order Comment: Speci men Type: URINE SPECIMENOrdering Facility: [facility] Address: [address] [place] [address] Performed By: #### L [id number] ####[facility] LABCLIA [id number] [place] [address] [place] Hyaline casts (Urine sed) [#/Area] 1-3 /LPF Abnormal 0 /LPF [facility] Comment on above: Order Comment: Speci men Type: URINE SPECIMENOrdering Facility: [facility] Address: [address] [place] [address] Performed By: #### L [id number] ####[facility] LABCLIA [id number] [place] [address] [place] Ketones Ql (U) Negative Normal Negative [facility] Comment on above: Order Comment: Speci men Type: URINE SPECIMENOrdering Facility: [facility] Address: [address] [place] [address] Performed By: #### L [id number] ####[facility] LABCLIA [id number] [place] [address] [place] Leukocyte esterase Test strip Ql (U) 2+ Abnormal Negative [facility] Comment on above: Order Comment: Speci men Type: URINE SPECIMENOrdering Facility: [facility] Address: [address] [place] [address] Performed By: #### L [id number] ####[facility] LABCLIA [id number] [place] [address] [place] Nitrite Ql (U) Negative Normal Negative [facility] Comment on above: Order Comment: Speci men Type: URINE SPECIMENOrdering Facility: [facility] Address: [address] [place] [address] Performed By: #### L [id number] ####[facility] LABIA [id number] [place] [address] [place] pH (U) 6.5 [pH] Normal <8.5 [facility] Comment on above: Order Comment: Speci men Type: URINE SPECIMENOrdering Facility: [facility] Address: [address] [place] [address] Performed By: #### L [id number] ####[facility] LABIA [id number] [place] [address] [place] Protein (U) [Mass/Vol] Negative Normal Negative [facility] Comment on above: Order Comment: Speci men Type: URINE SPECIMENOrdering Facility: [facility] Address: [address] [place] [address] Performed By: #### L [id number] ####[facility] LABIA [id number] [place] [address] [place] RBC LM.HPF (Urine sed) [#/Area] 0-2 /HPF Normal 0-2 /HPF [facility] Comment on above: Order Comment: Speci men Type: URINE SPECIMENOrdering Facility: [facility] Address: [address] [place] [address] Performed By: #### L [id number] ####[facility] LABIA [id number] [place] [address] [place] Specific gravity (U) [Rel density] 1.008 Normal 1.005-1.03 0 [facility] Comment on above: Order Comment: Speci men Type: URINE SPECIMENOrdering Facility: [facility] Address: [address] [place] [address] Performed By: #### L [id number] ####[facility] LABIA [id number] [place] [address] [place] Urobilinogen Ql (U) 0.2 EU/dL Normal 0.2-1.0 EU/dL [facility] Comment on above: Order Comment: Speci men Type: URINE SPECIMENOrdering Facility: [facility] Address: [address] [place] [address] Performed By: #### L [id number] ####[facility] LABCLIA [id number] [place] [id number] [place] WBC LM.HPF (Urine sed) [#/Area] /[HPF] Abnormal 0-5 /HPF [facility] Comment on above: Order Comment: Speci men Type: URINE SPECIMENOrdering Facility: [facility] Address: [address] [place] [address] Performed By: #### L [id number] ####[facility] LABCLIA [id number] [place] [address] [place] Inital Evaluation (1) - PTon 08-07-2024 Inital Evaluation (1) - PT [facility] Physical Therapy Health[address] [place] [address] / REHABILITATION SERVICES INITIAL EVALUATION MR#: [id number] Acct: [id number] Name: ZACKERY NUNEZ Rep #: [id number] : 1960 64 From: Reuben Shields DPT Referring Dr.: Sydni Waggoner MD Status: R EG RCR Insurance: O MEDICARE SELF PAY INSURANCE Patient's Visit Information Visit Information Visit Information: ZACKERY NUNEZ is a 64 year old F referred to Physical Therapy by Sydni Waggoner MD with a diagnosis of periprosthetic fracture of R knee joint. Date of Evaluation: 08/07/24 Physical Therapist: Reuben Shields DPT Visit Plan Frequency: 2x /Week Duration: 8 weeks Plan: 1) R knee ROM, joint mobs, PROM and bike/nustep 2) RLE strengthening including: quads, HS, glutes and calves 3) gait with good mechanics, progressing to LRD. 4) stair negotiation 5) may use vaso/ice as need for edema control. Subjective Subjective: Pt. is here today for her initial evaluation with diagnosis of periprosthetic fracture of R knee joint. Pt. reports falling on May.01 through a deck boarding. She then had a external fixator placed on May 03. Pt. then at fixator placed on the . Pt. did have her external fixator removed in early Jun (Jul 02.). Pt. is now WBAT. Pt. to follow up on October 08. 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 Pt. is now okay to be WBAT without limitations. Pt. reports her pain is better, but has not ambulated much. Pt. reports trying to work on bending her knee at home. Pt. reports being full I with all activities. Pt. is hopeful to get back to being full I. Pt. reports not walking much at home without her at home due to being fearful of falling. Pt. would benefit from PT to increase ROM and strength of her RLE. Pain R knee: Pain Intensity (Out of 10): 5 Pain Intensity Range: 3 and 8 Objective Objective: POSTURE: Pt. has increased wt. shift to L side in stance. PALPATION: PT. has tenderness at medial R knee incision. No warm, no signs of infection. Pt. has well healing incision. Pt. reports no calf pain. ROM: R knee: PROM: 0-0-51deg. AROM 0-2-48deg. ROM measured in supine. Pt. has normal HS length in BLEs. MMT: RLE: knee: ext 18#, flexion 15#; hip flexion SLR x15 with minimal lag. LLE: knee: ext 28.3#, flexion 22.7#; hip; flexion 18.1# gait: Pt. ambulates with rollator with good stability. She does have decreased R knee flexion during swing. She has decent TKE during stance phase. Pt. reports fatigue with increased walking, but was able to ambulate 250' with GUTIERREZ. STAIRS: did not attempt this date. Sit to stand from chair: difficult due to inability to get enough R knee flexion to push up with. She is able to complete with increased effort. Balance/Special Test Scores Lower Extremity Functional Score: 12 Goals Goal 1:: LTG: Pt. to be I with HEP. Goal Time Frame: 4-6 Weeks Goal 2:: LTG: pt. to have increased R knee ROM to 0-0-90deg allowing for increased ability to complete functional mobility. Goal Time Frame: 4-6 Weeks Goal 3:: LTG: Pt. to be able to ambulate with LRD with normal gait pattern and safe independence. Goal Time Frame: 4-6 Weeks Goal 4:: LTG: Pt. to be able to complete 6 MWT with LRD with distance of at least 800feet indicating increased endurance and functional mobility. Goal Time Frame: 6-8 Weeks Goal 5:: LTG: pt. to complete sit to stand from standard chair without use of UEs. Goal Time Frame: 4-6 Weeks Goal 6:: LTG: pt. to be able to negotiate 1 flight of stairs with 2 HR allowing for increased ability to negotiate her home. Goal Time Frame: 4-6 Weeks Rehabilitation Potential Physical Therapy Diagnosis: Pt. has signs and symptoms consistent with periprosthetic fracture of R knee joint. Pt. has marked hypomobility, weakness, and difficulty with walking/ADLs. pt. would benefit from PT to address the above limitations progressing back to all previous levels of function. Rehabilitation Potential: Good Anticipated Interventions Patient/Client Instruction: Educate patient on: Condition, Plan of Care, Risk Factors and Benefits of Fitness Program For the Purpose of:: To foster healthy habits, To improve decision making, To facilitate caregiver knowledge, To improve self management, To prevent re-injury and To improve ability to perform tasks related to life management Therapeutic Exercise to Include: Strength training, Power training, Endurance training, Balance training, Postural training, Flexibilty training, Gait and locomotor training, Passive ROM and Active ROM For the Purpose of:: To decrease pain, To increase ROM, To improve nutrient delivery to tissue, To increase oxygenation perfusion, To improve muscle performance and motor function, To improve ability (more content not included)... [facility] Visit (AGPOB1 ) -- ZACKERY NUNEZ ([id number]) 1960 F Date Time Provider Department 07/22/24 2:45 PM SYDNI WAGGONER AGPOB1 During your visit today, we recorded the following information about you: Respiration Weight Height 18/minute 90.7 kg 1.702 m Sydni Waggoner MD 07/22/2024 4:18 PM Signed ORTHOPAEDIC SURGERY OFFICE NOTE: SURGERY: 1) Open Treatment of the Right Periprosthetic Proximal Tibia Fracture with Internal Fixation on 05/07/2024 2) Right Lower Extremity Knee-Spanning Uniplanar External Fixator on 05/07/2024 3) Removal of the Right Lower Extremity Knee-Spanning Uniplanar External Fixator on 07/02/2024 CHIEF COMPLAINT: Routine Post-Operative Follow-Up HISTORY OF PRESENT ILLNESS: Zackery Nunez is a 64 year old female who presents for routine post-operative follow-up from the above listed operation (see Surgery above for full details). At today's appointment, the patient reports doing well. The patient endorses controlled pain to the right knee. The patient has tolerated the right knee [id number] brace and maintained non-weightbearing recommendations with the right lower extremity. The patient denies fevers and chills. The patient has no additional orthopaedic traumatic complaints at this time. Reviewed nursing note and current pain scale. PAST MEDICAL HISTORY Diagnosis Date Anxiety disorder Arthritis Chronic back pain Dr. Burks-pain management Depressive disorder, not elsewhere classified Diabetes (HCC) Pt reports she takes cinnamin tabs to manage her diabetes Essential hypertension, benign Fibromyalgia Glaucoma IBS (irritable bowel syndrome) Migraine, unspecified, without mention of intractable migraine without mention of status migrainosus PONV (postoperative nausea and vomiting) Pure hypercholesterolemia Rheumatoid arthritis (HCC) Sleep apnea pt states she snores frequently;though never worked-up for RUPESH Snoring PAST SURGICAL HISTORY Procedure Laterality Date [...] Never Smokeless tobacco: Never Vaping Use Vaping status: Never Used Substance Use Topics Alcohol use: No Drug use: No MEDICATIONS: Current Outpatient Medications Medication Sig buprenorphine (BUTRANS) 20 mcg/hour transdermal patch Apply 1 Patch as directed one time a week for 7 days. Last APPLIED 05/08 acetaminophen (TYLENOL) 325 mg tablet Take 2 tablets by mouth every 6 hours as needed for pain. gabapentin (NEURONTIN) 300 mg capsule Take 3 capsules by mouth daily at bedtime for 30 days. gabapentin (NEURONTIN) 300 mg capsule Take 3 capsules by mouth once daily for 30 days. Daily at noon polyethylene glycol 3350 17 gram packet Take 1 Packet by mouth once daily as needed. Dissolve dose in 4 - 8 ounces of liquid and take as directed. lisinopril (ZESTRIL) 10 mg tablet Take 1 tablet by mouth once daily. estradiol (ESTRACE) 0.01 % (0.1 mg/gram) vaginal cream Use 3 g vaginally once daily. atorvastatin (LIPITOR) 10 mg tablet Take 1 tablet by mouth once daily. (Patient taking differently: Take 10 mg by mouth daily at bedtime.) busPIRone HCl 30 mg tablet Take 1 tablet by mouth two times a day. omeprazole (PRILOSEC) 40 mg capsule Take 40 mg by mouth once daily. hyoscyamine sublingual (LEVSIN/SL) 0.125 mg Dissolve 1 tablet under the tongue every 4 hours as needed. citalopram (CELEXA) 40 mg tablet Take 1 tablet by mouth once daily. promethazine (PHENERGAN) 25 mg tablet Take 1 tablet by mouth every 6 hours as needed. SUMAtriptan (IMITREX) 50 mg tablet Take 1 tablet (50 mg) by mouth as needed. oxyCODONE-acetaminophen (PERCOCET) 5-325 mg tablet 1 tablet three times daily as needed. upadacitinib (RINVOQ ORAL) Take 15 mg by mouth. amitriptyline (ELAVIL) 10 mg tablet Take 1 tablet by mouth daily at bedtime. Cetirizine 10 mg cap Take by mouth. CALCIUM POLYCARBOPHIL (FIBER LAXATIVE ORAL) Take by mouth. multivitamin tablet Take 1 tablet by mouth once daily. latanoprost (XALATAN) 0.005 % ophthalmi (more content not included)... Normal [facility] XR Knee - right AP and Later malcolm 07-22-2024 2-view right knee x- rays demonstrate maintained length, alignment and rotation of the right periprosthetic proximal tibia fracture with intact orthopaedic implants. [facility] [place] Radiology Study observation (narrative) [facility] Vijay 07-17-2024 TINO Telephone (LILIANA) -- ZACKERY NUNEZ ([id number]) 1960 F Date Time Provider Department 07/17/24 MIKAYLA STRANGE During your visit today, we recorded the following information about you: Mayela Urbano LPN 07/17/2024 9:25 AM Signed Porsha with [employer] calling to let you know they received the last fax back with a date but no signature. Porsha is faxing back to me and I will deliver to office to get signed, dated and fax back. Received fax and delivered to pcp nurse. DUANE Connors Laurie Lynn, LPN 07/17/2024 9:34 AM Signed Orders signed and faxed back. Sent to Dr. Strange's nurse to keep if needed. Mayela Urbano LPN Allergies As of Date: 07/17/2024 Noted Allergy Reaction COMPAZINE (PROCHLORPERAZINE EDISY*07/14/2014 14 - Other: See Comments Comments: Pt reports it makes more nausea VAIBHAV (FEXOFENADINE HCL) 07/14/2014 5 - Intolerance AUGMENTIN (AMOXICILLIN-POT CLAVUL*07/14/2014 5 - Intolerance BENTYL (DICYCLOMINE HCL) 06/24/2015 8 - GI Upset BIAXIN (CLARITHROMYCIN) 07/14/2014 5 - Intolerance CECLOR (CEFACLOR) 07/14/2014 5 - Intolerance CELEBREX (CELECOXIB) 07/14/2014 5 - Intolerance COLESTIPOL 11/24/2014 14 - Other: See Comments Comments: shaky/headaches/increased nausea DOXEPIN 07/14/2014 5 - Intolerance FENTANYL 07/14/2014 5 - Intolerance Comments: Pt doesn't remember the reaction HUMIRA (ADALIMUMAB) 07/14/2014 5 - Intolerance LEVAQUIN (LEVOFLOXACIN) 07/14/2014 5 - Intolerance METFORMIN 11/21/2023 8 - GI Upset Comments: Gi intolerance PLAQUENIL (HYDROXYCHLOROQUINE SUL*07/14/2014 5 - Intolerance SELDANE 07/14/2014 5 - Intolerance SEPTRA (SULFAMETHOXAZOLE-TRIMETHO *07/14/2014 5 - Intolerance SULFA (SULFONAMIDE ANTIBIOTICS) 07/14/2014 5 - Intolerance VIBRAMYCIN (DOXYCYCLINE CALCIUM) 07/14/2014 5 - Intolerance VICODIN (HYDROCODONE-ACETAMINOPHE* 07/14/2014 5 - Intolerance Date Reviewed: 07/02/2024 Reviewed by: Javy Santos, RN - Fully Assessed Reason for Visit: [facility] - order needs signature/date [Other] Prescriptions as of 07/17/2024 - buprenorphine (BUTRANS) 20 mcg/hour transdermal patch Apply 1 Patch as directed one time a week for 7 days. Last APPLIED 05/08 - acetaminophen (TYLENOL) 325 mg tablet Take 2 tablets by mouth every 6 hours as needed for pain. - gabapentin (NEURONTIN) 300 mg capsule Take 3 capsules by mouth daily at bedtime for 30 days. - gabapentin (NEURONTIN) 300 mg capsule Take 3 capsules by mouth once daily for 30 days. Daily at noon - polyethylene glycol 3350 17 gram packet Take 1 Packet by mouth once daily as needed. Dissolve dose in 4 - 8 ounces of liquid and take as directed. - lisinopril (ZESTRIL) 10 mg tablet Take 1 tablet by mouth once daily. - estradiol (ESTRACE) 0.01 % (0.1 mg/gram) vaginal cream Use 3 g vaginally once daily. - atorvastatin (LIPITOR) 10 mg tablet Take 1 tablet by mouth once daily. - busPIRone HCl 30 mg tablet Take 1 tablet by mouth two times a day. - omeprazole (PRILOSEC) 40 mg capsule Take 40 mg by mouth once daily. - hyoscyamine sublingual (LEVSIN/SL) 0.125 mg Dissolve 1 tablet under the tongue every 4 hours as needed. - citalopram (CELEXA) 40 mg tablet Take 1 tablet by mouth once daily. - promethazine (PHENERGAN) 25 mg tablet Take 1 tablet by mouth every 6 hours as needed. - SUMAtriptan (IMITREX) 50 mg tablet Take 1 tablet (50 mg) by mouth as needed. - oxyCODONE-acetaminophen (PERCOCET) 5-325 mg tablet 1 tablet three times daily as needed. - upadacitinib (RINVOQ ORAL) Take 15 mg by mouth. - amitriptyline (ELAVIL) 10 mg tablet Take 1 tablet by mouth daily at bedtime. - Cetirizine 10 mg cap Take by mouth. - CALCIUM POLYCARBOPHIL (FIBER LAXATIVE ORAL) Take by mouth. - multivitamin tablet Take 1 tablet by mouth once daily. - latanoprost (XALATAN) 0.005 % ophthalmic solution 1 Drop daily at bedtime. - docusate sodium (COLACE) 100 mg capsule Take 100 mg by mouth twice daily. Problem List As Of Date 07/17/2024 Noted Resolved Nausea alone [R11.0] 07/30/2014 07/30/2014 Abdominal pain, epigastric [R10.13] 07/30/2014 07/30/2014 Rheumatoid arthritis (HCC) [M06.9] 05/11/2019 Fibromyalgia [M79.7] 05/11/2019 DDD (degenerative disc disease), lumbar [M51.36*05/11/2019 Glaucoma suspect of both eyes [H40.003] 05/11/2019 Irritable bowel syndrome with constipation [K58*05/11/2019 Chronic insomnia [F51.04] 05/11/2019 HLD (hyperlipidemia) [E78.5] 05/11/2019 Hyperglycemia [R73.9] 05/11/2019 03/12/2021 Panic disorder [F41.0] 05/11/2019 Migraine without aura, intractable, without sta*05/11/2019 Chronic back pain [M54.9, G89.29] 09/17/2021 Type 2 diabetes mellitus without complication, *03/12/2021 Elevated BP without diagnosis of hypertension [*11/17/2021 01/14/2022 HTN (hypertension) [I10] 01/14/2022 Obesity, Class III, BMI 40-49.9 (morbid obesity*10/25/202204/26 (more content not included)... Normal [facility] Absolute lymphocyte countOrd ered By: Smita Buck on 07-12-2024 Lymphocytes Auto (Unsp spec) [#/Vol] 2.01 10*3/uL 0.83-4.51 [facility] Absolute neutrophil countOrd ered By: [facility] on 07-12-2024 Neutrophils (Bld) [#/Vol] 3.4 10*3/uL 2.0-7.7 [facility] Albumin to globulin ratioOrd ered By: Smitaeladio Buck on 07-12-2024 Albumin/Globulin [Mass ratio] 0.7 {ratio} Low 0.9-2.4 [facility] Automated lymphocyte count a s percentage of total leukocytesOrdered By: Smita Buck on 07-12-2024 Lymphocytes/100 WBC Auto (Unsp spec) 33.0 % 19-41 [facility] Basophil percentageOrdered B y: Smita Buck on 07-12-2024 Basophils/100 WBC (Bld) 0.7 % 0-1 [facility] Bilirubin, totalOrdered By: Smitaeladio Buck on 07-12-2024 Bilirubin [Mass/Vol] 0.30 mg/dL 0.20-1.00 [facility] Comment on above: For patients on eltr ombopag therapy, use of Dimension [place] TBIL is not recommended. Blood urea nitrogen (BUN)/cr eatinine ratioOrdered By: Smita Buck on 07-12-2024 Urea nitrogen/Creatinine [Mass ratio] 11.7 mg/mg 10-20 [facility] CBC W/Diff, Automatedon 06-26 Absolute Lymph 2.01 X10 3/uL Normal 0.83-4.51 [facility] Comment on above: Performed By: #### L 500.4050, L100.0100 #### [facility] [address] [place], [address] Absolute Neut 3.4 X10 3/uL Normal 2.0-7.7 [facility] Comment on above: Performed By: #### L 500.4050, L100.0100 #### [facility] [address] [place], [address] Basophils/100 WBC (Bld) 0.7 % Normal 0-1 [facility] Comment on above: Performed By: #### L 500.4050, L100.0100 #### [facility] [address] [place], [address] Eosinophils/100 WBC (Bld) 3.6 % Normal 0-5 [facility] Comment on above: Performed By: #### L 500.4050, L100.0100 #### [facility] [address] [place], [address] Erythrocyte distribution width (RBC) [Ratio] 15.5 % High 11.6-14.6 [facility] Comment on above: Performed By: #### L 500.4050, L100.0100 #### [facility] [address] [place], [address] Hematocrit (Bld) [Volume fraction] 34.0 % Low 37-47 [facility] Comment on above: Performed By: #### L 500.4050, L100.0100 #### [facility] [address] [place], [address] Hemoglobin (Bld) [Mass/Vol] 10.1 g/dL Low 12.0-15.0 [facility] Comment on above: Performed By: #### L 500.4050, L100.0100 #### [facility] [address] [place], [address] IG% 0.200 Normal 0.0-0.9 [facility] Comment on above: Result Comment: IG% - Immature Granulocytes (promyelocytes, myelocytes and metamyelocytes) > 1% indicates that a LEFT SHIFT is Present. Performed By: #### L 500.4050, L100.0100 #### [facility] [address] [place], [address] Lymphocytes/100 WBC (Bld) 33.0 % Normal 19-41 [facility] Comment on above: Performed By: #### L 500.4050, L100.0100 #### [facility] [address] [place], [address] MCH (RBC) [Entitic mass] 25.3 pg Low 27.0-32.0 [facility] Comment on above: Performed By: #### L 500.4050, L100.0100 #### [facility] [address] [place], [address] MCHC (RBC) [Mass/Vol] 29.7 g/dL Low 32-36 [facility] Comment on above: Performed By: #### L 500.4050, L100.0100 #### [facility] [address] [place], [address] MCV (RBC) [Entitic vol] 85.2 fL Normal 81-99 [facility] Comment on above: Performed By: #### L 500.4050, L100.0100 #### [facility] [address] [place], [address] Monocytes/100 WBC (Bld) 6.9 % Normal 0-10 [facility] Comment on above: Performed By: #### L 500.4050, L100.0100 #### [facility] [address] [place], [address] Neutrophils/100 WBC (Bld) 55.6 % Normal 47-70 [facility] Comment on above: Performed By: #### L 500.4050, L100.0100 #### [facility] [address] [place], [address] Nucleated RBC (Bld) [#/Vol] 0 10*3/uL Normal 0-5 [facility] Comment on above: Performed By: #### L 500.4050, L100.0100 #### [facility] [address] [place], [address] Platelet mean volume (Bld) [Entitic vol] 10.6 fL Normal 6.2-12.0 [facility] Comment on above: Performed By: #### L 500.4050, L100.0100 #### [facility] [address] [place], [address] Platelets (Bld) [#/Vol] 395 10*3/uL Normal 150-450 [facility] Comment on above: Performed By: #### L 500.4050, L100.0100 #### [facility] [address] [place], [address] RBC (Bld) [#/Vol] 3.99 10*6/uL Low 4.2-5.4 [facility] Comment on above: Performed By: #### L 500.4050, L100.0100 #### [facility] [address] [place], [address] RDW SD 48.8 fl High 35.1-43.9 [facility] Comment on above: Performed By: #### L 500.4050, L100.0100 #### [facility] [address] [place], [address] WBC (Bld) [#/Vol] 6.1 10*3/uL Normal 4.4-11.0 [facility] Comment on above: Performed By: #### L 500.4050, L100.0100 #### [facility] [place], [address] [facility] 07-12-2024 [facility] Telephone (FAMWS) -- ZACKERY NUNEZ ESPINOZA ([id number]) 1960 F Date Time Provider Department 07/12/24 MIKAYLA STRANGE [facility] During your visit today, we recorded the following information about you: Makenna Crowder RN 07/12/2024 8:47 AM Signed Srikanth PT from [facility] and states that patient was supposed to be evaluated for home PT this week. Patient is requesting that the evaluation be next week. Srikanth states that he needs verbal order to be able to visit patient next week. JOURDAN Jansen William J, MD 07/12/2024 8:48 AM Signed Ok to do Adirano Paniagua, JOURDAN 07/12/2024 10:58 AM Signed Left detailed vm on identified vm with provider's message below. Allergies As of Date: 07/12/2024 Noted Allergy Reaction COMPAZINE (PROCHLORPERAZINE EDISY*07/14/2014 14 - Other: See Comments Comments: Pt reports it makes more nausea VAIBHAV (FEXOFENADINE HCL) 07/14/2014 5 - Intolerance AUGMENTIN (AMOXICILLIN-POT CLAVUL*07/14/2014 5 - Intolerance BENTYL (DICYCLOMINE HCL) 06/24/2015 8 - GI Upset BIAXIN (CLARITHROMYCIN) 07/14/2014 5 - Intolerance CECLOR (CEFACLOR) 07/14/2014 5 - Intolerance CELEBREX (CELECOXIB) 07/14/2014 5 - Intolerance COLESTIPOL 11/24/2014 14 - Other: See Comments Comments: shaky/headaches/increased nausea DOXEPIN 07/14/2014 5 - Intolerance FENTANYL 07/14/2014 5 - Intolerance Comments: Pt doesn't remember the reaction HUMIRA (ADALIMUMAB) 07/14/2014 5 - Intolerance LEVAQUIN (LEVOFLOXACIN) 07/14/2014 5 - Intolerance METFORMIN 11/21/2023 8 - GI Upset Comments: Gi intolerance PLAQUENIL (HYDROXYCHLOROQUINE SUL*07/14/2014 5 - Intolerance SELDANE 07/14/2014 5 - Intolerance SEPTRA (SULFAMETHOXAZOLE-TRIMETHO *07/14/2014 5 - Intolerance SULFA (SULFONAMIDE ANTIBIOTICS) 07/14/2014 5 - Intolerance VIBRAMYCIN (DOXYCYCLINE CALCIUM) 07/14/2014 5 - Intolerance VICODIN (HYDROCODONE-ACETAMINOPHE* 07/14/2014 5 - Intolerance Date Reviewed: 07/02/2024 Reviewed by: Javy Santos RN - Fully Assessed Reason for Visit: PT Orders [Other] Prescriptions as of 07/12/2024 - buprenorphine (BUTRANS) 20 mcg/hour transdermal patch Apply 1 Patch as directed one time a week for 7 days. Last APPLIED 05/08 - acetaminophen (TYLENOL) 325 mg tablet Take 2 tablets by mouth every 6 hours as needed for pain. - gabapentin (NEURONTIN) 300 mg capsule Take 3 capsules by mouth daily at bedtime for 30 days. - gabapentin (NEURONTIN) 300 mg capsule Take 3 capsules by mouth once daily for 30 days. Daily at noon - polyethylene glycol 3350 17 gram packet Take 1 Packet by mouth once daily as needed. Dissolve dose in 4 - 8 ounces of liquid and take as directed. - lisinopril (ZESTRIL) 10 mg tablet Take 1 tablet by mouth once daily. - estradiol (ESTRACE) 0.01 % (0.1 mg/gram) vaginal cream Use 3 g vaginally once daily. - atorvastatin (LIPITOR) 10 mg tablet Take 1 tablet by mouth once daily. - busPIRone HCl 30 mg tablet Take 1 tablet by mouth two times a day. - omeprazole (PRILOSEC) 40 mg capsule Take 40 mg by mouth once daily. - hyoscyamine sublingual (LEVSIN/SL) 0.125 mg Dissolve 1 tablet under the tongue every 4 hours as needed. - citalopram (CELEXA) 40 mg tablet Take 1 tablet by mouth once daily. - promethazine (PHENERGAN) 25 mg tablet Take 1 tablet by mouth every 6 hours as needed. - SUMAtriptan (IMITREX) 50 mg tablet Take 1 tablet (50 mg) by mouth as needed. - oxyCODONE-acetaminophen (PERCOCET) 5-325 mg tablet 1 tablet three times daily as needed. - upadacitinib (RINVOQ ORAL) Take 15 mg by mouth. - amitriptyline (ELAVIL) 10 mg tablet Take 1 tablet by mouth daily at bedtime. - Cetirizine 10 mg cap Take by mouth. - CALCIUM POLYCARBOPHIL (FIBER LAXATIVE ORAL) Take by mouth. - multivitamin tablet Take 1 tablet by mouth once daily. - latanoprost (XALATAN) 0.005 % ophthalmic solution 1 Drop daily at bedtime. - docusate sodium (COLACE) 100 mg capsule Take 100 mg by mouth twice daily. Problem List As Of Date 07/12/2024 Noted Resolved Nausea alone [R11.0] 07/30/2014 07/30/2014 Abdominal pain, epigastric [R10.13] 07/30/2014 07/30/2014 Rheumatoid arthritis (HCC) [M06.9] 05/11/2019 Fibromyalgia [M79.7] 05/11/2019 DDD (degenerative disc disease), lumbar [M51.36*05/11/2019 Glaucoma suspect of both eyes [H40.003] 05/11/2019 Irritable bowel syndrome with constipation [K58*05/11/2019 Chronic insomnia [F51.04] 05/11/2019 HLD (hyperlipidemia) [E78.5] 05/11/2019 Hyperglycemia [R73.9] 05/11/2019 03/12/2021 Panic disorder [F41.0] 05/11/2019 Migraine without aura, intractable, without sta*05/11/2019 Chronic back pain [M54.9, G89.29] 09/17/2021 Type 2 diabetes mellitus without complication, *03/12/2021 Elevated BP without diagnosis of hypertension [*11/17/2021 01/14/2022 HTN (hypertension) [I10] 01/14/2022 Obesity, Class III, BMI 40-49.9 (morbid obesity*10/25/2022 05/12/2023 (more content not included)... Normal [facility] Carbon dioxide measurementOr dered By: Smita Buck on 07-12-2024 CO2 [Moles/Vol] 23.0 mmol/L 21.0-32.0 [facility] Chloride measurementOrdered By: Smita Buck on 07-12-2024 Chloride [Moles/Vol] 101 mmol/L 98-107 [facility] Comprehensive Metabolic Prof ilon 07-12-2024 Albumin [Mass/Vol] 3.0 g/dL Low 3.2-5.0 [facility] Comment on above: Performed By: #### L 500.4050, L100.0100 #### [facility] [address] [place], [address] Albumin/Globulin [Mass ratio] 0.7 {ratio} Low 0.9-2.4 [facility] Comment on above: Performed By: #### L 500.4050, L100.0100 #### [facility] [address] [place], [address] ALK P 102 U/L Normal 45-117 [facility] Comment on above: Performed By: #### L 500.4050, L100.0100 #### [facility] [address] [place], [address] ALT [Catalytic activity/Vol] 12 U/L Low 13-56 [facility] Comment on above: Performed By: #### L 500.4050, L100.0100 #### [facility] [address] [place], [address] AST [Catalytic activity/Vol] 19 U/L Normal 15-37 [facility] Comment on above: Performed By: #### L 500.4050, L100.0100 #### [facility] [address] [place], [address] Bilirubin [Mass/Vol] 0.30 mg/dL Normal 0.20-1.00 [facility] Comment on above: Result Comment: For patients on eltrombopag therapy, use of Dimension [place] TBIL is not recommended. Performed By: #### L 500.4050, L100.0100 #### [facility] [address] [place], [address] BUN/CRE 11.7 RATIO Normal 10-20 [facility] Comment on above: Performed By: #### L 500.4050, L100.0100 #### [facility] [address] [place], [address] CA,Total 9.4 mg/dL Normal 8.5-10.1 [facility] Comment on above: Performed By: #### L 500.4050, L100.0100 #### [facility] [address] [place], [address] Chloride [Moles/Vol] 101 mmol/L Normal 98-107 [facility] Comment on above: Performed By: #### L 500.4050, L100.0100 #### [facility] [address] [place], [address] CO2 [Moles/Vol] 23.0 mmol/L Normal 21.0-32.0 [facility] Comment on above: Performed By: #### L 500.4050, L100.0100 #### [facility] [address] [place], [address] Creatinine [Mass/Vol] 1.11 mg/dL High 0.55-1.02 [facility] Comment on above: Result Comment: The validity of the calculated GFR GFRAA in patients over 70 years has not been determined. Clinical correlation is essential. Performed By: #### L 500.4050, L100.0100 #### [facility] [address] [place], [address] EST GFR - AA 63 mL/min Normal >60 [facility] Comment on above: Result Comment: Afri can Fijian GFR Calc Performed By: #### L 500.4050, L100.0100 #### [facility] [address] [place], [address] GAP 10 Normal 5-15 [facility] Comment on above: Performed By: #### L 500.4050, L100.0100 #### [facility] [address] [place], [address] GFR/1.73 sq M.predicted among non-blacks MDRD (S/P/Bld) [Vol rate/Area] 52 mL/min/{1.73_m2} Low >60 [facility] Comment on above: Result Comment: Non- GFR Calc Performed By: #### L 500.4050, L100.0100 #### [facility] [address] [place], [address] Globulin (S) [Mass/Vol] 4.5 g/dL High 2.2-4.2 [facility] Comment on above: Performed By: #### L 500.4050, L100.0100 #### [facility] [address] [place], [address] Glucose [Mass/Vol] 89 mg/dL Normal 74-106 [facility] Comment on above: Performed By: #### L 500.4050, L100.0100 #### [facility] [address] [place], [address] Potassium [Moles/Vol] 4.1 mmol/L Normal 3.5-5.1 [facility] Comment on above: Performed By: #### L 500.4050, L100.0100 #### [facility] [address] [place], [address] Sodium [Moles/Vol] 134 mmol/L Low 136-145 [facility] Comment on above: Performed By: #### L 500.4050, L100.0100 #### [facility] [address] [place], [address] T PROT 7.5 g/dL Normal 6.4-8.2 [facility] Comment on above: Performed By: #### L 500.4050, L100.0100 #### [facility] [address] [place], [address] Urea nitrogen [Mass/Vol] 13 mg/dL Normal 7-18 [facility] Comment on above: Performed By: #### L 500.4050, L100.0100 #### [facility] [address] [place], [address] Eosinophil percentageOrdered By: Smita Buck on 07-12-2024 Eosinophils/100 WBC (Bld) 3.6 % 0-5 [facility] Erythrocyte distribution wid th ratioOrdered By: Smita Buck on 07-12-2024 Erythrocyte distribution width (RBC) [Ratio] 15.5 % High 11.6-14.6 [facility] Erythrocyte distribution wid th standard deviationOrdered By: Smita Buck on 07-12-2024 Erythrocyte distribution width (RBC) [Entitic vol] 48.8 fL High 35.1-43.9 [facility] Erythrocyte distribution width (RBC) [Ratio] 48.8 fl High 35.1-43.9 [facility] Estimated glomerular filtrat ion rate (GFR) AmericanOrdered By: Smita Buck on 07-12-2024 Estimated GFR (MDRD) Amer 63 mL/min >60 [facility] Comment on above: GFR Calc Glomerular filtration rate ( GFR) estimationOrdered By: Smita Buck on 07-12-2024 Estimated GFR (MDRD) Non-Af Amer 52 mL/min Low >60 [facility] Comment on above: Non- GFR Calc GFR/1.73 sq M.predicted among non-blacks MDRD (S/P/Bld) [Vol rate/Area] 52 mL/min/{1.73_m2} Low >60 [facility] Comment on above: Non- GFR Calc Glucose measurementOrdered B y: Smita Buck on 01-17-2025 Glucose [Mass/Vol] 89 mg/dL 74-106 [facility] Hematocrit Auto (Bld) [Volum e fraction]Ordered By: Smita Buck on 07-12-2024 Hematocrit (Bld) [Volume fraction] 34.0 % Low 37-47 [facility] Hemoglobin measurementOrdere d By: Smita Buck on 07-12-2024 Hemoglobin (Bld) [Mass/Vol] 10.1 g/dL Low 12.0-15.0 [facility] Immature granulocytes/100 WB C Auto (Bld)Ordered By: Smita Buck on 07-12-2024 Immature granulocytes/100 WBC (Bld) 0.200 % 0.0-0.9 [facility] Comment on above: IG% - Immature Granu locytes (promyelocytes, myelocytes and metamyelocytes) > 1% indicates that a LEFT SHIFT is Present. Laboratory - Chemistry and C hemistry - challengeOrdered By: Smita Buck on 07-12-2024 AST [Catalytic activity/Vol] 19 U/L 15-37 [facility] Lymphocytes Auto (Unsp spec) [#/Vol]Ordered By: Smita Buck on 07-12-2024 Lymphocytes (Bld) [#/Vol] 2.01 10*3/uL 0.83-4.51 [facility] Lymphocytes/100 WBC Auto (Un sp spec)Ordered By: Smita Buck on 07-12-2024 Lymphocytes/100 WBC (Bld) 33.0 % 19-41 [facility] MCV (mean corpuscular volume ) determinationOrdered By: Smita Buck on 07-12-2024 MCV (RBC) [Entitic vol] 85.2 fL 81-99 [facility] Mean corpuscular hemoglobin (MCH) determinationOrdered By: Smita Buck on 07-12-2024 MCH (RBC) [Entitic mass] 25.3 pg Low 27.0-32.0 [facility] Mean corpuscular hemoglobin concentration (MCHC) determinationOrdered By: Smita Buck on 07-12-2024 MCHC (RBC) [Mass/Vol] 29.7 g/dL Low 32-36 [facility] Mean platelet volume determi nationOrdered By: Smita Buck on 07-12-2024 Platelet mean volume (Bld) [Entitic vol] 10.6 fL 6.2-12.0 [facility] Monocyte percentageOrdered B y: Smita Buck on 07-12-2024 Monocytes/100 WBC (Bld) 6.9 % 0-10 [facility] Neutrophil percentageOrdered By: Smita Buck on 07-12-2024 Neutrophils/100 WBC (Bld) 55.6 % 47-70 [facility] Nucleated red blood cell per centageOrdered By: Smita Buck on 07-12-2024 Nucleated RBC/100 WBC (Bld) [Ratio] 0 % 0-5 [facility] Platelet countOrdered By: Jerilyn Buck on 07-12-2024 Platelets (Bld) [#/Vol] 395 10*3/uL 150-450 [facility] Potassium measurementOrdered By: Smita Buck on 07-12-2024 Potassium [Moles/Vol] 4.1 mmol/L 3.5-5.1 [facility] RBC Auto (Bld) [#/Vol]Ordere d By: Smita Buck on 07-12-2024 RBC (Bld) [#/Vol] 3.99 10*6/uL Low 4.2-5.4 [facility] Serum anion gap measurementO rdered By: Smita Buck on 07-12-2024 Anion gap [Moles/Vol] 10 mmol/L 5-15 [facility] Serum globulin measurementOr dered By: Smiat Buck on 07-12-2024 Globulin (S) [Mass/Vol] 4.5 g/dL High 2.2-4.2 [facility] Serum or plasma alanine cyr otransferase (ALT) measurementOrdered By: Smita Buck on 07-12-2024 ALT [Catalytic activity/Vol] 12 U/L Low 13-56 [facility] Serum or plasma albumin francisco urement (mass/volume)Ordered By: Smita Buck on 07-12-2024 Albumin [Mass/Vol] 3.0 g/dL Low 3.2-5.0 [facility] Serum or plasma alkaline john sphatase measurementOrdered By: Smita Buck on 07-12-2024 ALP [Catalytic activity/Vol] 102 U/L 45-117 [facility] Serum or plasma calcium francisco urement (mass/volume)Ordered By: Smita Buck on 07-12-2024 Calcium [Mass/Vol] 9.4 mg/dL 8.5-10.1 [facility] Serum or plasma creatinine m easurement (mass/volume)Ordered By: Smita Buck on 07-12-2024 Creatinine [Mass/Vol] 1.11 mg/dL High 0.55-1.02 [facility] Comment on above: The validity of the calculated GFR & GFRAA in patients over 70 years has not been determined. Clinical correlation is essential. Serum or plasma urea nitroge n measurement (mass/volume)Ordered By: Smita Buck on 07-12-2024 Urea nitrogen [Mass/Vol] 13 mg/dL 7-18 [facility] Sodium levelOrdered By: Vero Buck on 07-12-2024 Sodium [Moles/Vol] 134 mmol/L Low 136-145 [facility] Total proteinOrdered By: Christopher Buck on 07-12-2024 Protein [Mass/Vol] 7.5 g/dL 6.4-8.2 [facility] White blood cell (WBC) count Ordered By: Smita Buck on 07-12-2024 WBC (Bld) [#/Vol] 6.1 10*3/uL 4.4-11.0 [facility] ANES POSTPROC EVALon 025 ANES POSTPROC EVAL HNO ID: [id number] Author: SYDNI ESTRELLA DO Service: Anesthesiology Author Type: Physician Type: Anesthesia Postprocedure Evaluation Filed: 07/05/2024 16:11 Note Text: POST ANESTHESIA EVALUATION NOTE : 1960 Procedure Summary Date: 07/02/24 Room / Location: [place] Anesthesia Start: 1951 Anesthesia Stop: 2007 Procedure: REMOVAL EXTERNAL FIXATION SYSTEM UNDER ANESTHESIA (Right: Leg below knee) Diagnosis: 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, subsequent encounter (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, subsequent encounter [M97.11XD]) Surgeons: Sydni Waggoner MD Responsible Provider: Sydni Estrella DO Anesthesia Type: MAC ASA Status: 3 Anesthesia Type: MAC Last Vitals Vitals Value Taken Time BP 123/60 07/02/242114 Temp 36.9 ?C (98.4 ?F) 07/02/24 2100 HR SpO2 85 07/02/242115 Resp 17 07/02/242115 SpO2 97 % 07/02/242115 Vitals shown include unfiled device data. Post Anesthesia Patient Status Patient Evaluation: PACU. PACU/ICU Patient Condition: stable. Anticipated Disposition: phase 2 then home. Neurological Status: sleepy but arousable. Pulmonary Status: breathing comfortably on supplemental oxygen Airway Control: returned to baseline unsupported. Cardiovascular Status: stable. Pain Management: clinically adequate Postoperative Hydration: acceptable. Intraoperative Events: no significant anesthesia events Post Operative Nausea/Vomiting Status: no significant post operative nausea or vomiting Recommendation: continue current plan of care. Anesthesia Observations No Documentation SIGNATURE: Sydni Estrella DO PATIENT NAME: Zackery Doran Mayra DATE: July 05, 2024 TIME: 4:11 PM CSN: [id number] [facility]03[facility] -- MAYRAZACKERY DORAN ([id number]) 1960 F Date Time Provider Department 07/03/24 ORTH AGPOB1 During your visit today, we recorded the following information about you: Rosemary Najera 07/03/2024 12:54 PM Signed Adeline from [facility] calling to get orders for PT for this patient Rosemary Severino, Rosemary 07/03/2024 3:43 PM Signed Sydni Waggoner MD You15 minutes ago (3:27 PM) NWB with active knee range of motion Rosemary Najera 07/03/2024 3:43 PM Signed Called and left message for Adeline Darling [employer] Allergies As of Date: 07/03/2024 Noted Allergy Reaction COMPAZINE (PROCHLORPERAZINE EDISY*07/14/2014 14 - Other: See Comments Comments: Pt reports it makes more nausea VAIBHAV (FEXOFENADINE HCL) 07/14/2014 5 - Intolerance AUGMENTIN (AMOXICILLIN-POT CLAVUL*07/14/2014 5 - Intolerance BENTYL (DICYCLOMINE HCL) 06/24/2015 8 - GI Upset BIAXIN (CLARITHROMYCIN) 07/14/2014 5 - Intolerance CECLOR (CEFACLOR) 07/14/2014 5 - Intolerance CELEBREX (CELECOXIB) 07/14/2014 5 - Intolerance COLESTIPOL 11/24/2014 14 - Other: See Comments Comments: shaky/headaches/increased nausea DOXEPIN 07/14/2014 5 - Intolerance FENTANYL 07/14/2014 5 - Intolerance Comments: Pt doesn't remember the reaction HUMIRA (ADALIMUMAB) 07/14/2014 5 - Intolerance LEVAQUIN (LEVOFLOXACIN) 07/14/2014 5 - Intolerance METFORMIN 11/21/2023 8 - GI Upset Comments: Gi intolerance PLAQUENIL (HYDROXYCHLOROQUINE SUL*07/14/2014 5 - Intolerance SELDANE 07/14/2014 5 - Intolerance SEPTRA (SULFAMETHOXAZOLE-TRIMETHO *07/14/2014 5 - Intolerance SULFA (SULFONAMIDE ANTIBIOTICS) 07/14/2014 5 - Intolerance VIBRAMYCIN (DOXYCYCLINE CALCIUM) 07/14/2014 5 - Intolerance VICODIN (HYDROCODONE-ACETAMINOPHE* 07/14/2014 5 - Intolerance Date Reviewed: 07/02/2024 Reviewed by: Javy Santos, RN - Fully Assessed Prescriptions as of 07/03/2024 - sulfamethoxazole-trimethop rim (BACTRIM DS) 800-160 mg per tablet Take 1 tablet by mouth two times a day for 7 days. - cephALEXin (KEFLEX) 500 mg capsule Take 1 capsule by mouth four times daily for 7 days. - ondansetron orally disintegrating (ZOFRAN ODT) 4 mg disintegrating tablet Take 1 tablet by mouth every 6 hours as needed for nausea/vomiting for up to 7 days. - buprenorphine (BUTRANS) 20 mcg/hour transdermal patch Apply 1 Patch as directed one time a week for 7 days. Last APPLIED 05/08 - acetaminophen (TYLENOL) 325 mg tablet Take 2 tablets by mouth every 6 hours as needed for pain. - gabapentin (NEURONTIN) 300 mg capsule Take 3 capsules by mouth daily at bedtime for 30 days. - gabapentin (NEURONTIN) 300 mg capsule Take 3 capsules by mouth once daily for 30 days. Daily at noon - polyethylene glycol 3350 17 gram packet Take 1 Packet by mouth once daily as needed. Dissolve dose in 4 - 8 ounces of liquid and take as directed. - lisinopril (ZESTRIL) 10 mg tablet Take 1 tablet by mouth once daily. - estradiol (ESTRACE) 0.01 % (0.1 mg/gram) vaginal cream Use 3 g vaginally once daily. - atorvastatin (LIPITOR) 10 mg tablet Take 1 tablet by mouth once daily. - busPIRone HCl 30 mg tablet Take 1 tablet by mouth two times a day. - omeprazole (PRILOSEC) 40 mg capsule Take 40 mg by mouth once daily. - hyoscyamine sublingual (LEVSIN/SL) 0.125 mg Dissolve 1 tablet under the tongue every 4 hours as needed. - citalopram (CELEXA) 40 mg tablet Take 1 tablet by mouth once daily. - promethazine (PHENERGAN) 25 mg tablet Take 1 tablet by mouth every 6 hours as needed. - SUMAtriptan (IMITREX) 50 mg tablet Take 1 tablet (50 mg) by mouth as needed. - oxyCODONE-acetaminophen (PERCOCET) 5-325 mg tablet 1 tablet three times daily as needed. - upadacitinib (RINVOQ ORAL) Take 15 mg by mouth. - amitriptyline (ELAVIL) 10 mg tablet Take 1 tablet by mouth daily at bedtime. - Cetirizine 10 mg cap Take by mouth. - CALCIUM POLYCARBOPHIL (FIBER LAXATIVE ORAL) Take by mouth. - multivitamin tablet Take 1 tablet by mouth once daily. - latanoprost (XALATAN) 0.005 % ophthalmic solution 1 Drop daily at bedtime. - docusate sodium (COLACE) 100 mg capsule Take 100 mg by mouth twice daily. Problem List As Of Date 07/03/2024 Noted Resolved Nausea alone [R11.0] 07/30/2014 07/30/2014 Abdominal pain, epigastric [R10.13] 07/30/2014 07/30/2014 Rheumatoid arthritis (HCC) [M06.9] 05/11/2019 Fibromyalgia [M79.7] 05/11/2019 DDD (degenerative disc disease), lumbar [M51.36*05/11/2019 Glaucoma suspect of both eyes [H40.003] 05/11/2019 Irritable bowel syndrome with constipation [K58*05/11/2019 Chronic insomnia [F51.04] 05/11/2019 HLD (hyperlipidemia) [E78.5] 05/11/2019 Hyperglycemia [R73.9] 05/11/2019 03/12/2021 Panic disorder [F41.0] 05/11/2019 Migraine without aura, intractable, without sta*05/11/2019 Chronic back pain [M54.9, G89.29] (more content not included)... [facility] ANES PRE-OPon 07-02-2024 ANES PRE-OP HNO ID: [id number] Author: RADHA WAGNER MD Service: Anesthesiology Author Type: Anesthesiologist Type: Anesthesia Preprocedure Evaluation Filed: 07/02/2024 17:29 Note Text: ANESTHESIOLOGY DAY OF SURGERY NOTE : 1960 Procedure Information Date/Time: 07/02/241847 Procedure: REMOVAL EXTERNAL FIXATION SYSTEM UNDER ANESTHESIA (Right: Leg below knee) Location: [place] OR / [place] OR Surgeons: Sydni Waggoner MD Estimated body mass index is 31.32 kg/m? as calculated from the following: Height as of 06/29/24: 170.2 cm (5' 7). Weight as of 06/29/24: 90.7 kg (200 lb). Most recent hematocrit and potassium results: Hematocrit 32.3 06/30/2024 Potassium 3.9 06/30/2024 Relevant Problems CARDIO (+) HTN (hypertension) (+) Migraine without aura, intractable, without status migrainosus ENDO (+) Type 2 diabetes mellitus without complication, without long-term current use of insulin (HCC) -RENAL (+) Stage 3 chronic kidney disease (HCC) NEURO-PSYCH (+) Migraine without aura, intractable, without status migrainosus Other (+) Rheumatoid arthritis (HCC) HTN - lisinopril - did not take today Glaucoma GERD - PPI RA DM Psych - amytriptyline, citalopram, buspirone Echo 2021 EF = 55% Dao 3, grade 1 I - PHYSICAL EVALUATION AIRWAY Patient intubated: No. Tracheostomy tube not present Mallampati: III. TM distance: >3 FB. Neck ROM: full ROM without neurological symptoms. Mouth opening: adequate. Short neck: no. Thick neck: no DENTAL Dental findings: missing tooth/teeth and poor dentition. II - ANESTHESIA PLAN ASA Score: 3 Anesthetic Plan: MAC The patient is not a current smoker. NPO Status: adequate Beta Paramjit Monitoring Plan Monitoring plan: standard ASA. Post Procedure Analgesic Plan Postoperative analgesic plan: parenteral or oral opioids and multimodal analgesia. Informed Consent Anesthetic risks, benefits, alternatives, personnel and consent discussed: yes. Patient / Responsible Libertarian agrees to proceed: yes Patient / Surrogate agrees to blood products: blood products not planned Potential Anesthesia issues that may suggest increased risk of complications or contraindication to planned procedure: none. Vitals Value Taken Time BP 129/87 07/02/24 1651 Pulse 79 07/02/24 1651 Resp 18 07/02/24 1651 Temp 37 ?C (98.6 ?F) 07/02/24 1651 SpO2 100 % 07/02/24 1651 No current facility-administered medications on file as of 07/02/2024. Outpatient Medications as of 07/02/2024 Medication Sig sulfamethoxazole-trimethop rim (BACTRIM DS) 800-160 mg per tablet Take 1 tablet by mouth two times a day for 7 days. cephALEXin (KEFLEX) 500 mg capsule Take 1 capsule by mouth four times daily for 7 days. ondansetron orally disintegrating (ZOFRAN ODT) 4 mg disintegrating tablet Take 1 tablet by mouth every 6 hours as needed for nausea/vomiting for up to 7 days. buprenorphine (BUTRANS) 20 mcg/hour transdermal patch Apply 1 Patch as directed one time a week for 7 days. Last APPLIED 05/08 acetaminophen (TYLENOL) 325 mg tablet Take 2 tablets by mouth every 6 hours as needed for pain. gabapentin (NEURONTIN) 300 mg capsule Take 3 capsules by mouth daily at bedtime for 30 days. gabapentin (NEURONTIN) 300 mg capsule Take 3 capsules by mouth once daily for 30 days. Daily at noon lisinopril (ZESTRIL) 10 mg tablet Take 1 tablet by mouth once daily. atorvastatin (LIPITOR) 10 mg tablet Take 1 tablet by mouth once daily. (Patient taking differently: Take 10 mg by mouth daily at bedtime.) busPIRone HCl 30 mg tablet Take 1 tablet by mouth two times a day. omeprazole (PRILOSEC) 40 mg capsule Take 40 mg by mouth once daily. citalopram (CELEXA) 40 mg tablet Take 1 tablet by mouth once daily. oxyCODONE-acetaminophen (PERCOCET) 5-325 mg tablet 1 tablet three times daily as needed. amitriptyline (ELAVIL) 10 mg tablet Take 1 tablet by mouth daily at bedtime. Cetirizine 10 mg cap Take by mouth. multivitamin tablet Take 1 tablet by mouth once daily. latanoprost (XALATAN) 0.005 % ophthalmic solution 1 Drop daily at bedtime. polyethylene glycol 3350 17 gram packet Take 1 Packet by mouth once daily as needed. Dissolve dose in 4 - 8 ounces of liquid and take as directed. estradiol (ESTRACE) 0.01 % (0.1 mg/gram) vaginal cream Use 3 g vaginally once daily. hyoscyamine sublingual (LEVSIN/SL) 0.125 mg Dissolve 1 tablet under the tongue every 4 hours as needed. promethazine (PHENERGAN) 25 mg tablet Take 1 tablet by mouth every 6 hours as needed. SUMAtriptan (IMITREX) 50 mg tablet Take 1 tablet (50 mg) by mouth as needed. upadacitinib (RINVOQ ORAL) Take 15 mg by mouth. CALCIUM POLYCARBOPHIL (FIBER LAXATIVE ORAL) Take by mouth. docusate sodium (COLACE) 100 mg capsule Take 100 mg by mouth twice daily. I have interviewed and examined the patient. I have reviewed the medical record and/or the pre-anesthesia evaluation, pertinent labs, and test results. This contai (more content not included)... [facility] BRIEF OP NOTon 07-02-2024 BRIEF OP NOT HNO ID: [id number] Author: SAHARA ROYAL MD Service: Orthopaedic Surgery Author Type: Resident Type: Brief Op Note Filed: 07/02/2024 20:15 Note Text: Orthopaedic Surgery Brief Operative Note Log ID: [id number] Surgery/Procedure Date: 07/02/2024 Incision/Procedure Start Time: 7:56 PM Incision Close/Procedure End Time: 8:01 PM Surgeon(s)/Proceduralist(s ) and Barrel Loader(s): Surgeons and Role: * Sydni Waggoner MD - Primary * Sahara Royal MD - Resident - Assisting * Jasiel Turpin MD - Resident - Assisting No Additional Staff Procedure(s): Procedure(s) (LRB): REMOVAL EXTERNAL FIXATION SYSTEM UNDER ANESTHESIA (Right) Anesthesia: General Pre-Op/Pre-Procedure Diagnosis: 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, subsequent encounter [M97.11XD] Post-Op/Post-Procedure Diagnosis: 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, subsequent encounter [M97.11XD] Fluids: per anesthesia Estimated Blood Loss: 5cc Malcolm: None Specimens: None Drains: None Findings: See operative report. Complications: None Special medications: 2 g Ancef Post op plan: 64 year old female status-post Removal ex fix R lower extremity. - Pain control. - Weight Bearing Status: NWB RLE. - Dressing(s): soft dressings, knee immobilizer - Imaging: none. - Anticipated Length of Stay/Disposition: DC back to SNF from PACU Sahara Royal MD Orthopedic Surgery Resident 07/02/24 8:13 PM [facility] HISTORY PHYSICALon HISTORY PHYSICAL HNO ID: [id number] Author: SYDNI WAGGONER MD Service: Orthopaedic Surgery Author Type: Physician Type: H&P Filed: 07/02/2024 19:40 Note Text: Orthopaedic Surgery The History and Physical (completed in the past 30 days) has been reviewed and the patient has been examined. The contents accurately reflect the patient's condition with the following additions or revisions since the HANDP was completed. Examination indicates no changes. This HANDP can be found in the Electronic Medical Record. Sydni Waggoner MD Orthopaedic Surgery 07/02/2024 7:40 PM [facility] OPERATIVE NOon 07-02-2024 OPERATIVE NO HNO ID: [id number] Author: SYDNI WAGGONER MD Service: Orthopaedic Surgery Author Type: Physician Type: Operative Report Filed: 07/04/2024 10:47 Note Text: OPERATIVE/PROCEDURE REPORT LOG ID: [id number] SURGERY/PROCEDURE DATE: 07/02/2024 INCISION/PROCEDURE START TIME: 7:56 PM INCISION CLOSE/PROCEDURE END TIME: 8:01 PM SURGEON(S)/PROCEDURALIST(S ) AND IMPORT/EXPORT FREIGHT FORWARDER(S): Surgeons and Role: * Sydni Waggoner MD - Primary * Sahara Royal MD - Resident - Assisting * Jasiel Turpin MD - Resident - Assisting No Additional Staff PRE-OP/PRE-PROCEDURE DIAGNOSIS: 1) Closed Right Periprosthetic Proximal Tibia Fracture, Subsequent Encounter POST-OP/POST-PROCEDURE DIAGNOSIS: 1) Closed Right Periprosthetic Proximal Tibia Fracture, Subsequent Encounter SURGERY/PROCEDURE(S): 1) Removal of the Right Lower Extremity Knee-Spanning Uniplanar External Fixator Requiring Anesthesia (CPT 56938) ANESTHESIA: 1) Monitored Anesthesia Care ANTIBIOTICS: 1) None ESTIMATED BLOOD LOSS: 1) 5 CC FLUIDS: 1) Per Anesthesia Documentation SPECIMENS: 1) None CLINICAL INDICATIONS: 64 year old female sustained a right periprosthetic proximal tibia fracture and underwent open reduction internal fixation and application of a knee-spanning uniplanar external fixator on 05/07/2024. The patient has been recovering at a assisted facility. The patient was scheduled for removal of the right lower extremity knee-spanning uniplanar external fixator on 07/02/2024. The risks, limitations, benefits and alternatives to removal of the right lower extremity knee-spanning uniplanar external fixator were discussed with the patient. The risks of the operation include, but are not limited to, the risks associated with anesthesia, infection, bleeding, chronic pain, post-traumatic arthritis, fracture, deep venous thromboses, pulmonary embolism and the need for future operations. The patient elected to proceed with removal of the right lower extremity knee-spanning uniplanar external fixator under anesthesia. All questions and concerns were answered and addressed. The informed consent was signed. SURGERY/PROCEDURE DETAILS: The patient was met in the pre-operative holding area on 07/02/2024. A pre-operative huddle was conducted with the surgical team. The patient was identified with two patient identifiers (name and date of ). The patient's operative extremity (right lower extremity) was marked. The pre-operative checklist, including review of the informed consent, was reviewed and agreed upon by all members of the surgical team. The patient was transferred to the operating room. Monitored anesthesia care was performed by anesthesia. A final time-out was then conducted in accordance with [facility] policy. After all members of the surgical team agreed upon the details of the procedure, the patient's right lower extremity knee-spanning uniplanar external fixator was disassembled. The Schanz pins were removed from the right femur and right tibia after cleansing with alcohol. After removal of the external fixator, the operative extremity was cleansed. Xeroform, 4x4s, ABDs and an OFELIA bandage were applied to the right lower extremity. A knee [id number]-bs-pztdod brace was applied to the right lower extremity. The patient was transferred to PACU in stable condition with anesthesia. Verification of the procedure was completed prior to transfer to PACU. IMPLANTABLE DEVICES: None DRAINS: None COMPLICATIONS: None PARTICIPATION IN SURGERY/PROCEDURE: I/primary surgeon/proceduralist performed the procedure with assistance. POST-OPERATIVE PLAN: -Management per orthopaedic trauma surgery -Maintain knee [id number] brace to the right lower extremity -PT/OT: Non-weightbearing with the right lower extremity; active right knee range of motion with therapy -Dressings: Xeroform, 4x4s, ABDs, OFELIA bandage to the right lower extremity (drainage is to be expected from the external fixator pin sites - dressing changes as needed) -Pain control; ice and elevation of the right lower extremity -Diet: Advance diet as tolerated -Disposition: Discharge today with outpatient orthopaedic follow-up in 2-3 weeks SIGNATURE: Sydni Waggoner MD PATIENT NAME: Zackery Doran Mayra DATE: July 04, 2024 TIME: 10:30 AM [facility] CNPCarolyn 07-01-2024 CNPN Telephone (AGPOB1) -- ZACKERY NUNEZ ([id number]) 1960 F Date Time Provider Department 07/01/24 SYDNI WAGGONER AGPOB1 During your visit today, we recorded the following information about you: Teresa Crawford 07/01/2024 1:32 PM Signed I called patient and talked with the patient. Have you completed the OME Survey via [employer]? No (You can't be registered for surgery until the survey is completed. ) Procedure is scheduled for: 07-02-24 at: UNKOWN Arrival time: UNKNOWN NPO after midnight. Please bring walker, crutches, braces or slings if applicable. Teresa Mathias 07/02/2024 7:15 AM Signed I called and talked with Zackery about her surgery time and to arrive at 130pm Teresa Crawford Allergies As of Date: 07/01/2024 Noted Allergy Reaction COMPAZINE (PROCHLORPERAZINE EDISY*07/14/2014 14 - Other: See Comments Comments: Pt reports it makes more nausea VAIBHAV (FEXOFENADINE HCL) 07/14/2014 5 - Intolerance AUGMENTIN (AMOXICILLIN-POT CLAVUL*07/14/2014 5 - Intolerance BENTYL (DICYCLOMINE HCL) 06/24/2015 8 - GI Upset BIAXIN (CLARITHROMYCIN) 07/14/2014 5 - Intolerance CECLOR (CEFACLOR) 07/14/2014 5 - Intolerance CELEBREX (CELECOXIB) 07/14/2014 5 - Intolerance COLESTIPOL 11/24/2014 14 - Other: See Comments Comments: shaky/headaches/increased nausea DOXEPIN 07/14/2014 5 - Intolerance FENTANYL 07/14/2014 5 - Intolerance Comments: Pt doesn't remember the reaction HUMIRA (ADALIMUMAB) 07/14/2014 5 - Intolerance LEVAQUIN (LEVOFLOXACIN) 07/14/2014 5 - Intolerance METFORMIN 11/21/2023 8 - GI Upset Comments: Gi intolerance PLAQUENIL (HYDROXYCHLOROQUINE SUL*07/14/2014 5 - Intolerance SELDANE 07/14/2014 5 - Intolerance SEPTRA (SULFAMETHOXAZOLE-TRIMETHO *07/14/2014 5 - Intolerance SULFA (SULFONAMIDE ANTIBIOTICS) 07/14/2014 5 - Intolerance VIBRAMYCIN (DOXYCYCLINE CALCIUM) 07/14/2014 5 - Intolerance VICODIN (HYDROCODONE-ACETAMINOPHE* 07/14/2014 5 - Intolerance Date Reviewed: 07/01/2024 Reviewed by: Sapna Morrow RN - Fully Assessed 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 - cephALEXin (KEFLEX) 500 mg capsule Take 1 capsule by mouth four times daily for 7 days. - ondansetron orally disintegrating (ZOFRAN ODT) 4 mg disintegrating tablet Take 1 tablet by mouth every 6 hours as needed for nausea/vomiting for up to 7 days. - buprenorphine (BUTRANS) 20 mcg/hour transdermal patch Apply 1 Patch as directed one time a week for 7 days. Last APPLIED 05/08 - acetaminophen (TYLENOL) 325 mg tablet Take 2 tablets by mouth every 6 hours as needed for pain. - gabapentin (NEURONTIN) 300 mg capsule Take 3 capsules by mouth daily at bedtime for 30 days. - gabapentin (NEURONTIN) 300 mg capsule Take 3 capsules by mouth once daily for 30 days. Daily at noon - polyethylene glycol 3350 17 gram packet Take 1 Packet by mouth once daily as needed. Dissolve dose in 4 - 8 ounces of liquid and take as directed. - lisinopril (ZESTRIL) 10 mg tablet Take 1 tablet by mouth once daily. - estradiol (ESTRACE) 0.01 % (0.1 mg/gram) vaginal cream Use 3 g vaginally once daily. - atorvastatin (LIPITOR) 10 mg tablet Take 1 tablet by mouth once daily. - busPIRone HCl 30 mg tablet Take 1 tablet by mouth two times a day. - omeprazole (PRILOSEC) 40 mg capsule Take 40 mg by mouth once daily. - hyoscyamine sublingual (LEVSIN/SL) 0.125 mg Dissolve 1 tablet under the tongue every 4 hours as needed. - citalopram (CELEXA) 40 mg tablet Take 1 tablet by mouth once daily. - promethazine (PHENERGAN) 25 mg tablet Take 1 tablet by mouth every 6 hours as needed. - SUMAtriptan (IMITREX) 50 mg tablet Take 1 tablet (50 mg) by mouth as needed. - oxyCODONE-acetaminophen (PERCOCET) 5-325 mg tablet 1 tablet three times daily as needed. - upadacitinib (RINVOQ ORAL) Take 15 mg by mouth. - amitriptyline (ELAVIL) 10 mg tablet Take 1 tablet by mouth daily at bedtime. - Cetirizine 10 mg cap Take by mouth. - CALCIUM POLYCARBOPHIL (FIBER LAXATIVE ORAL) Take by mouth. - multivitamin tablet Take 1 tablet by mouth once daily. - latanoprost (XALATAN) 0.005 % ophthalmic solution 1 Drop daily at bedtime. - docusate sodium (COLACE) 100 mg capsule Take 100 mg by mouth twice daily. 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 [facility] CNPN Telephone (AGPOB1) -- ZACKERY NUNEZ ([id number]) 1960 F Date Time Provider Department 07/01/24 SYDNI WAGGONER During your visit today, we recorded the following information about you: Allergies As of Date: 07/01/2024 Noted Allergy Reaction COMPAZINE (PROCHLORPERAZINE EDISY*07/14/2014 14 - Other: See Comments Comments: Pt reports it makes more nausea VAIBHAV (FEXOFENADINE HCL) 07/14/2014 5 - Intolerance AUGMENTIN (AMOXICILLIN-POT CLAVUL*07/14/2014 5 - Intolerance BENTYL (DICYCLOMINE HCL) 06/24/2015 8 - GI Upset BIAXIN (CLARITHROMYCIN) 07/14/2014 5 - Intolerance CECLOR (CEFACLOR) 07/14/2014 5 - Intolerance CELEBREX (CELECOXIB) 07/14/2014 5 - Intolerance COLESTIPOL 11/24/2014 14 - Other: See Comments Comments: shaky/headaches/increased nausea DOXEPIN 07/14/2014 5 - Intolerance FENTANYL 07/14/2014 5 - Intolerance Comments: Pt doesn't remember the reaction HUMIRA (ADALIMUMAB) 07/14/2014 5 - Intolerance LEVAQUIN (LEVOFLOXACIN) 07/14/2014 5 - Intolerance METFORMIN 11/21/2023 8 - GI Upset Comments: Gi intolerance PLAQUENIL (HYDROXYCHLOROQUINE SUL*07/14/2014 5 - Intolerance SELDANE 07/14/2014 5 - Intolerance SEPTRA (SULFAMETHOXAZOLE-TRIMETHO *07/14/2014 5 - Intolerance SULFA (SULFONAMIDE ANTIBIOTICS) 07/14/2014 5 - Intolerance VIBRAMYCIN (DOXYCYCLINE CALCIUM) 07/14/2014 5 - Intolerance VICODIN (HYDROCODONE-ACETAMINOPHE* 07/14/2014 5 - Intolerance Date Reviewed: 06/29/2024 Reviewed by: Jane Yen RN - Fully Assessed Primary Visit Diagnosis: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, subsequent encounter [M97.11XD] Order(s):SURGICAL REQUEST - ELECTIVE (01/2020) [[id number]] Order #: [id number]: 1 Prescriptions as of 07/01/2024 - sulfamethoxazole-trimethop rim (BACTRIM DS) 800-160 mg per tablet Take 1 tablet by mouth two times a day for 7 days. - cephALEXin (KEFLEX) 500 mg capsule Take 1 capsule by mouth four times daily for 7 days. - ondansetron orally disintegrating (ZOFRAN ODT) 4 mg disintegrating tablet Take 1 tablet by mouth every 6 hours as needed for nausea/vomiting for up to 7 days. - buprenorphine (BUTRANS) 20 mcg/hour transdermal patch Apply 1 Patch as directed one time a week for 7 days. Last APPLIED 05/08 - acetaminophen (TYLENOL) 325 mg tablet Take 2 tablets by mouth every 6 hours as needed for pain. - gabapentin (NEURONTIN) 300 mg capsule Take 3 capsules by mouth daily at bedtime for 30 days. - gabapentin (NEURONTIN) 300 mg capsule Take 3 capsules by mouth once daily for 30 days. Daily at noon - polyethylene glycol 3350 17 gram packet Take 1 Packet by mouth once daily as needed. Dissolve dose in 4 - 8 ounces of liquid and take as directed. - lisinopril (ZESTRIL) 10 mg tablet Take 1 tablet by mouth once daily. - estradiol (ESTRACE) 0.01 % (0.1 mg/gram) vaginal cream Use 3 g vaginally once daily. - atorvastatin (LIPITOR) 10 mg tablet Take 1 tablet by mouth once daily. - busPIRone HCl 30 mg tablet Take 1 tablet by mouth two times a day. - omeprazole (PRILOSEC) 40 mg capsule Take 40 mg by mouth once daily. - hyoscyamine sublingual (LEVSIN/SL) 0.125 mg Dissolve 1 tablet under the tongue every 4 hours as needed. - citalopram (CELEXA) 40 mg tablet Take 1 tablet by mouth once daily. - promethazine (PHENERGAN) 25 mg tablet Take 1 tablet by mouth every 6 hours as needed. - SUMAtriptan (IMITREX) 50 mg tablet Take 1 tablet (50 mg) by mouth as needed. - oxyCODONE-acetaminophen (PERCOCET) 5-325 mg tablet 1 tablet three times daily as needed. - upadacitinib (RINVOQ ORAL) Take 15 mg by mouth. - amitriptyline (ELAVIL) 10 mg tablet Take 1 tablet by mouth daily at bedtime. - Cetirizine 10 mg cap Take by mouth. - CALCIUM POLYCARBOPHIL (FIBER LAXATIVE ORAL) Take by mouth. - multivitamin tablet Take 1 tablet by mouth once daily. - latanoprost (XALATAN) 0.005 % ophthalmic solution 1 Drop daily at bedtime. - docusate sodium (COLACE) 100 mg capsule Take 100 mg by mouth twice daily. Problem List As Of Date 07/01/2024 Noted Resolved Nausea alone [R11.0] 07/30/2014 07/30/2014 Abdominal pain, epigastric [R10.13] 07/30/2014 07/30/2014 Rheumatoid arthritis (HCC) [M06.9] 05/11/2019 Fibromyalgia [M79.7] 05/11/2019 DDD (degenerative disc disease), lumbar [M51.36*05/11/2019 Glaucoma suspect of both eyes [H40.003] 05/11/2019 Irritable bowel syndrome with constipation [K58*05/11/2019 Chronic insomnia [F51.04] 05/11/2019 HLD (hyperlipidemia) [E78.5] 05/11/2019 Hyperglycemia [R73.9] 05/11/2019 03/12/2021 Panic disorder [F41.0] 05/11/2019 Migraine without aura, intractable, without sta*05/11/2019 Chronic back pain [M54.9, G89.29] 09/17/2021 Type 2 diabetes mellitus without complication, *03/12/2021 Elevated BP without diagnosis of hypertension [*11/17/2021 01/14/2022 HTN (hypertension) [I10] 01/14/2022 Obesity, Class II (more content not included)... Normal [facility] Bacteria Bld Culton 06-30-19 Bacteria identified Cx Nom (Bld) CULTURE, BLOOD: No growth 5 days Normal [facility] Comment on above: Performed By: #### 6 00-7 ####[facility] [place] [place] [facility] [id number] [place] [address] [place] Bacteria identified Cx Nom (Bld) CULTURE, BLOOD: No growth 5 days Normal [facility] Comment on above: Performed By: #### 6 00-7 #### [facility] [place] [place] [facility] CLIA [id number] [address] [place] [address] [place] Basic metabolic 2000 panelon 06-30-2024 Anion gap [Moles/Vol] 15 mmol/L Normal 8-15 [facility] Comment on above: Order Comment: Speci men Type: BLOOD SPECIMENOrdering Facility: [facility] Address: [address] [place] [address] Performed By: #### 6 00-7 #### [facility] [place] [place] [facility] CLIA [id number] [address] [place] [address] [place] Calcium [Mass/Vol] 9.0 mg/dL Normal 8.5-10.2 [facility] Comment on above: Order Comment: Speci men Type: BLOOD SPECIMENOrdering Facility: [facility] Address: [address] [place] [address] Performed By: #### 6 00-7 #### [facility] CLIA [id number] [address] [place] Chloride [Moles/Vol] 94 mmol/L Low 98-107 [facility] Comment on above: Order Comment: Speci men Type: BLOOD SPECIMENOrdering Facility: [facility] Address: [address] [place] [address] Performed By: #### 6 00-7 #### [facility] [place] [place] [facility] CLIA [id number] [address] [place] CO2 [Moles/Vol] 20 mmol/L Low 22-30 [facility] Comment on above: Order Comment: Speci men Type: BLOOD SPECIMENOrdering Facility: [facility] Address: [address] [place] [address] Performed By: #### 6 00-7 #### [facility] [place] [place] [facility] CLIA [id number] [address] [place] Creatinine [Mass/Vol] 1.25 mg/dL High 0.58-0.96 [facility] Comment on above: Order Comment: Speci men Type: BLOOD SPECIMENOrdering Facility: [facility] Address: [address] [place] [address] Performed By: #### 6 00-7 #### [facility] CLIA [id number] [address] [place] Creatinine and Glomerular filtration rate.predicted panel (S/P/Bld) 48 mL/min/1.73m??? Low >=60 [facility] Comment on above: Order Comment: Speci men Type: BLOOD SPECIMENOrdering Facility: [facility] Address: [address] [place] [address] Result Comment: Sienna mated Glomerular Filtration Rate (eGFR) is calculated using the 2020 CKD-EPI creatinine equation. This equation utilizes serum creatinine, sex, and age as parameters. The creatinine assay has traceable calibration to isotope dilution-mass spectrometry. Refer to KDIGO guidelines for clinical interpretation. In patients with unstable renal function, e.g. those with acute kidney injury, the eGFR may not accurately reflect actual GFR. Performed By: #### 6 00-7 #### [facility] CLIA [id number] [address] [place] [address] [place] Glucose [Mass/Vol] 116 mg/dL High 74-99 [facility] Comment on above: Order Comment: Speci men Type: BLOOD SPECIMENOrdering Facility: [facility] Address: [address] [place] [address] Result Comment: The [place] Diabetes Association (ADA) provides guidance for cutoff values for fasting glucose and random glucose. The ADA defines fasting as no caloric intake for at least 8 hours. Fasting plasma glucose results between 100 to 125 mg/dL indicate increased risk for diabetes (prediabetes). Fasting plasma glucose results greater than or equal to 126 mg/dL meet the criteria for diagnosis of diabetes. In the absence of unequivocal hyperglycemia, results should be confirmed by repeat testing. In a patient with classic symptoms of hyperglycemia or hyperglycemic crisis, random plasma glucose results greater than or equal to 200 mg/dL meet the criteria for diagnosis of diabetes. Reference: Standards of Medical Care in Diabetes 2016, [place] [employer] Association. Diabetes Care. 2016.39(Suppl 1). Performed By: #### 6 00-7 #### [facility] CLIA [id number] [address] [place] Potassium [Moles/Vol] 3.9 mmol/L Normal 3.7-5.1 [facility] Comment on above: Order Comment: Speci men Type: BLOOD SPECIMENOrdering Facility: [facility] Address: [address] [place] [place] [id number] Performed By: #### 6 00-7 #### [facility] CLIA [id number] [address] [place] [address] [place] Sodium [Moles/Vol] 129 mmol/L Low 136-144 [facility] Comment on above: Order Comment: Speci men Type: BLOOD SPECIMENOrdering Facility: [facility] Address: [address] [place] [address] Performed By: #### 6 00-7 #### [facility] CLIA [id number] [address] STATES [facility] Urea nitrogen [Mass/Vol] 17 mg/dL Normal 7-21 [facility] Comment on above: Order Comment: Speci men Type: BLOOD SPECIMENOrdering Facility: [facility] Address: [address] [place] [address] Performed By: #### 6 00-7 #### [facility] [place] [place] [facility] CLIA [id number] [address] [place] [facility] CBC W Auto Differential pane l (Bld)on 06-30-2024 Basophils (Bld) [#/Vol] 0.06 10*3/uL Normal <0.11 [facility] Comment on above: Order Comment: Speci men Type: BLOOD SPECIMENOrdering Facility: [facility] Address: [address] [place] [address] Performed By: #### 5 7021-8 ####[facility] [place] [facility]ORYCL[facility] [id number] [address] STATES [place] [facility] Basophils/100 WBC (Bld) 0.7 % Normal [facility] Comment on above: Order Comment: Speci men Type: BLOOD SPECIMENOrdering Facility: [facility] Address: [address] [place] [address] Performed By: #### 5 7021-8 ####[facility] [id number] [address] Differential cell count method Nom (Bld) Auto Normal [facility] Comment on above: Order Comment: Speci men Type: BLOOD SPECIMENOrdering Facility: [facility] Address: [address] [place] [address] Performed By: #### 5 7021-8 ####[facility] [id number] [place] [address] [place] Eosinophils (Bld) [#/Vol] 0.27 10*3/uL Normal <0.46 [facility] Comment on above: Order Comment: Speci men Type: BLOOD SPECIMENOrdering Facility: [facility] Address: [address] [place] [address] Performed By: #### 5 7021-8 ####[facility] [place] [place] [facility]CL[facility] [id number] [address] Eosinophils/100 WBC (Bld) 3.0 % Normal [facility] Comment on above: Order Comment: Speci men Type: BLOOD SPECIMENOrdering Facility: [facility] Address: [address] [place] [address] Performed By: #### 5 7021-8 ####[facility] [place] [place] [facility]CL[facility] [id number] [address] Erythrocyte distribution width (RBC) [Ratio] 14.8 % Normal 11.5-15.0 [facility] Comment on above: Order Comment: Speci men Type: BLOOD SPECIMENOrdering Facility: [facility] Address: [address] [place] [address] Performed By: #### 5 7021-8 ####[facility] [place] [place] [facility]ORYCL[facility] [id number] [address] Hematocrit (Bld) [Volume fraction] 32.3 % Low 36.0-46.0 [facility] Comment on above: Order Comment: Speci men Type: BLOOD SPECIMENOrdering Facility: [facility] Address: [address] [place] [address] Performed By: #### 5 7021-8 ####[facility] [place] [place] [facility]CL[facility] [id number] [address] Hemoglobin (Bld) [Mass/Vol] 10.2 g/dL Low 11.5-15.5 [facility] Comment on above: Order Comment: Speci men Type: BLOOD SPECIMENOrdering Facility: [facility] Address: [address] [place] [address] Performed By: #### 5 7021-8 ####[facility] [place] [place] [facility]ORYCL[facility] [id number] [address] Immature granulocytes (Bld) [#/Vol] 0.03 10*3/uL Normal <0.10 [facility] Comment on above: Order Comment: Speci men Type: BLOOD SPECIMENOrdering Facility: [facility] Address: [address] [place] [address] Performed By: #### 5 7021-8 ####[facility] [place] [place] [facility]ORYCL[facility] [id number] [address] Immature granulocytes/100 WBC (Bld) 0.3 % Normal [facility] Comment on above: Order Comment: Speci men Type: BLOOD SPECIMENOrdering Facility: [facility] Address: [address] [place] [address] Performed By: #### 5 7021-8 ####[facility] [place] [place] [facility]ORYCL[facility] [id number] [address] [place] Lymphocytes (Bld) [#/Vol] 2.72 10*3/uL Normal 1.00-4.00 [facility] Comment on above: Order Comment: Speci men Type: BLOOD SPECIMENOrdering Facility: [facility] Address: [address] [place] [address] Performed By: #### 5 7021-8 ####[facility] [place] [place] [facility]ORYCL[facility] [id number] [address] Lymphocytes/100 WBC (Bld) 30.1 % Normal [facility] Comment on above: Order Comment: Speci men Type: BLOOD SPECIMENOrdering Facility: [facility] Address: [address] [place] [address] Performed By: #### 5 7021-8 ####[facility] [place] [place] [facility]ORYCL[facility] [id number] [address] [place] MCH (RBC) [Entitic mass] 26.7 pg Normal 26.0-34.0 [facility] Comment on above: Order Comment: Speci men Type: BLOOD SPECIMENOrdering Facility: [facility] Address: [address] [place] [address] Performed By: #### 5 7021-8 ####[facility] [place] [place] [facility]ORYCL[facility] [id number] [address] [place] MCHC (RBC) [Mass/Vol] 31.6 g/dL Normal 30.5-36.0 [facility] Comment on above: Order Comment: Speci men Type: BLOOD SPECIMENOrdering Facility: [facility] Address: [address] [place] [address] Performed By: #### 5 7021-8 ####[facility] [place] [place] [facility]ORYCL[facility] [id number] [address] [place] MCV (RBC) [Entitic vol] 84.6 fL Normal 80.0-100.0 [facility] Comment on above: Order Comment: Speci men Type: BLOOD SPECIMENOrdering Facility: [facility] Address: [address] [place] [address] Performed By: #### 5 7021-8 ####[facility] [place] [place] [facility]ORYCL[facility] [id number] [address] [place] Monocytes (Bld) [#/Vol] 0.73 10*3/uL Normal <0.87 [facility] Comment on above: Order Comment: Speci men Type: BLOOD SPECIMENOrdering Facility: [facility] Address: [address] [place] [address] Performed By: #### 5 7021-8 ####[facility] [place] [place] [facility]ORYCL[facility] [id number] [address] Monocytes/100 WBC (Bld) 8.1 % Normal [facility] Comment on above: Order Comment: Speci men Type: BLOOD SPECIMENOrdering Facility: [facility] Address: [address] [place] [address] Performed By: #### 5 7021-8 ####[facility] [place] [place] [facility]ORYCL[facility] [id number] [address] [place] Neutrophils (Bld) [#/Vol] 5.24 10*3/uL Normal 1.45-7.50 [facility] Comment on above: Order Comment: Speci men Type: BLOOD SPECIMENOrdering Facility: [facility] Address: [address] [place] [address] Performed By: #### 5 7021-8 ####[facility] [place] [place] [facility]CL[facility] [id number] [address] Neutrophils/100 WBC (Bld) 57.8 % Normal [facility] Comment on above: Order Comment: Speci men Type: BLOOD SPECIMENOrdering Facility: [facility] Address: [address] [place] [address] Performed By: #### 5 7021-8 ####[facility] [place] [place] [facility]ORYCL[facility] [id number] [address] [place] Nucleated RBC (Bld) [#/Vol] 10*3/uL Normal <0.01 [facility] Comment on above: Order Comment: Speci men Type: BLOOD SPECIMENOrdering Facility: [facility] Address: [address] [place] [address] Performed By: #### 5 7021-8 ####[facility] [place] [place] [facility]ORYCL[facility] [id number] [address] OF [facility] Nucleated RBC/100 WBC (Bld) [Ratio] 0.0 /100 WBC Normal [facility] Comment on above: Order Comment: Speci men Type: BLOOD SPECIMENOrdering Facility: [facility] Address: [address] [place] [address] Performed By: #### 5 7021-8 ####[facility] [place] [place] [facility]CL[facility] [id number] [address] [place] Platelet mean volume (Bld) [Entitic vol] 9.5 fL Normal 9.0-12.7 [facility] Comment on above: Order Comment: Speci men Type: BLOOD SPECIMENOrdering Facility: [facility] Address: [address] [place] [address] Performed By: #### 5 7021-8 ####[facility] [place] [place] [facility]ORYCLIA [id number] [place] [address] [place] Platelets (Bld) [#/Vol] 536 10*3/uL High 150-400 [facility] Comment on above: Order Comment: Speci men Type: BLOOD SPECIMENOrdering Facility: [facility] Address: [address] [place] [address] Performed By: #### 5 7021-8 ####[facility] [place] [place] [facility]ORYCL[facility] [id number] [address] [place] [facility] RBC (Bld) [#/Vol] 3.82 10*6/uL Low 3.90-5.20 [facility] Comment on above: Order Comment: Speci men Type: BLOOD SPECIMENOrdering Facility: [facility] Address: [address] [place] [address] Performed By: #### 5 7021-8 ####[facility] [place] [place] [facility]CL[facility] [id number] [address] OF [facility] WBC (Bld) [#/Vol] 9.05 10*3/uL Normal 3.70-11.00 [facility] Comment on above: Order Comment: Speci men Type: BLOOD SPECIMENOrdering Facility: [facility] Address: [address] [place] [address] Performed By: #### 5 7021-8 ####[facility] [place] [place] [facility] [id number] [address] CONSULTon 06-30-2024 CONSULT HNO ID: [id number] Author: SYDNI WAGGONER MD Service: Orthopaedic Surgery Author Type: Physician Type: Consults Filed: 06/30/2024 09:26 Note Text: Orthopaedic Trauma Surgery Attending Addendum Reviewed resident Consultation. Agree with resident image interpretation, assessment and plan unless otherwise noted. Continued very low suspicion for sepsis from external fixation pin site infection. Continue PO antibiotics with daily pin care. Sydni Waggoner MD Orthopaedic Trauma Surgery 06/30/2024 9:25 AM ORTHOPAEDIC SURGERY CONSULT Pt: ZACKERY ARTHURRACHEL Date of Consultation: 06/30/2024 Physician Consulted: Dr. Waggoner Reason for Consultation: Pin site infection s/p knee spanning ex-fix applied on 05/07 HPI/ROS: 64 year old female being evaluated this morning regarding concern for pin site infection to right knee spanning external fixator. Patient is s/p ORIF of a periprosthetic tibia fracture on 05/[address] Waggoner with application of knee spanning ex fix at that time. The patient was seen on the evening of 06/28 for similar concern however left the emergency department because she states that she needed her evening medication and had to use the restroom which has been difficult for her given her external fixator to the right lower extremity, her need to maintain non weight bearing status, and the fact that she also has a concomitant UTI diagnosed at outside ED 6 days ago (currently on Bactrim and Keflex). Per the medical record on 06/28, the patient had positive blood cultures and there was a concern for possible sepsis and it was recommended that she undergo further workup while receiving IV abx. Since her last visit to the ED, the patient endorses continued pain about the anterior aspect of the knee. There has been continued drainage to the proximal pin sites located in the distal femur. She has been compliant with daily pin site care and PO antibiotics. She denies fever or vomiting however does endorse dizziness, chills, persistent urinary symptoms and nausea. She endorses non specific chest pain that has been present since April. She denies current shortness of breath. Denies associated paresthesias to the RLE. Denies recent traumatic event. Denies any additional orthopaedic complaint at present. Of note, the patient had wound cultures taken on 06/28 from proximal pin site which has been NGTD. Patient states that she was told that initial wound culture from [facility] on 06/24 was positive for MRSA. PAST MEDICAL HISTORY Diagnosis Date Anxiety disorder Arthritis Chronic back pain Dr. Burks-pain management Depressive disorder, not elsewhere classified Diabetes (HCC) Pt reports she takes cinnamin tabs to manage her diabetes Essential hypertension, benign Fibromyalgia Glaucoma IBS (irritable bowel syndrome) Migraine, unspecified, without mention of intractable migraine without mention of status migrainosus PONV (postoperative nausea and vomiting) Pure hypercholesterolemia Rheumatoid arthritis (HCC) Sleep apnea pt states she snores frequently;though never worked-up for RUPESH Snoring PAST SURGICAL HISTORY Procedure Laterality Date [...] HX TUBAL LIGATION HX 08/11/1997 VAGINAL HYSTERECTOMY Allergies: Compazine [Prochlorperazine Edisylate], Vaibhav [Fexofenadine Hcl], Augmentin [Amoxicillin-Pot Clavulanate], Bentyl [Dicyclomine Hcl], Biaxin [Clarithromycin], Ceclor [Cefaclor], Celebrex [Celecoxib], Colestipol, Doxepin, Fentanyl, Humira [Adalimumab], Levaquin [Levofloxacin], Metformin, Plaquenil [Hydroxychloroquine Sulfate], Seldane, Septra [Sulfamethoxazole-Trimetho prim], Sulfa (Sulfonamide Antibiotics), Vibramycin [Doxycycline Calcium], and Vicodin [Hydrocodone-Acetaminophen ] Current Facility-Administered Medications Medication Dose Route Frequency NaCl 0.9% iv flush bag 20 mL INTRAVENOUS PRN morphine 2 mg injection 2 mg INTRAVENOUS ONCE Current Outpatient Medications Medication Sig buprenorphine (BUTRANS) 20 mcg/hour transdermal patch Apply 1 Patch as directed one time a week for 7 days. Last APPLIED 05/08 acetaminophen (TYLENOL) 325 mg tablet Take 2 tablets by mouth every 6 hours as needed for pain. gabapentin (NEURONTIN) 300 mg capsule Take 3 capsules by mouth daily at bedtime for 30 days. gabapentin (NEURONTIN) 300 mg capsule Take 3 capsules by mouth once daily for 30 days. Daily at noon polyethylene glycol 3350 17 gram packet Take 1 Packet by mouth onc (more content not included)... [facility] Culture, Blood (WB)on 2024 CUB Blood cultures x2, f rom two different sites GRAM STAIN= GRAM POSITIVE COCCI IN CLUSTERS AEROBIC BOTTLE POSITIVE Culture, Blood (WB) RESULTS CALLED/PRINTED TO VISHAL 06/26/24 0946 Jane Lawrence. REPORT READ BACK BY SAME. Culture, Blood (WB) MRSA RESULTS CALLED TO MATEO SOLORZANO 06/28/24 0743 Kiara Salas. REPORT READ BACK BY . Culture, Blood (WB) Copy of report sent to Infection Control Printer [id number] 06/28/24 0725 JPCELE. Meth. resistant Staph. aureus Amount Growth Growth mecA Testing not performed Meth. resistant Staph. aureus: REACTION cefOXitin Susc Islt POS Doxycycline Islt MANUEL 1 Clindamycin Islt MANUEL >=4 R Clindamycin.induced Susc Islt NEG Erythromycin Islt MANUEL >=8 R Gentamicin Islt MANUEL <=0.5 S Linezolid Islt MANUEL 2 S Moxifloxacin Islt MANUEL >=8 R Oxacillin Susc Islt >=4 R Tetracycline Islt MANUEL <=1 S TMP SMX Islt MANUEL <=10 S Vancomycin Islt MANUEL 1 S Normal [facility] Comment on above: Performed By: #### M 100.636, M200.1000 #### [facility] [address] [place], [place], [id number] CUB Blood cultures x2, f rom two different sites No growth in 5 days. Normal [facility] Comment on above: Performed By: #### L 501.5425, L503.6620, L300.4310, L300.8000, L500.2500, L503.6005, L300.3900, L100.0100 #### [facility] [address] [place], [place], [id number] ED NOTEon 06-30-2024 ED NOTE HNO ID: [id number] Author: ANA ROSA BRANDT RN Service: Emergency Medicine Author Type: Registered Nurse Type: ED Notes Filed: 06/30/2024 02:25 Note Text: Ortho consult at bedside at this time [facility] ED NOTE HNO ID: [id number] Author: ANA ROSA BRANDT RN Service: Emergency Medicine Author Type: Registered Nurse Type: ED Notes Filed: 06/30/2024 01:43 Note Text: Provider notified of pt hypotensive readings. Pt mentation remains intact, asymptomatic at this time. Pt remains connected to the quality assurance monitor, SpO2 on RA and NIBP. [facility] ED NOTE HNO ID: [id number] Author: ANA ROSA BRANDT RN Service: Emergency Medicine Author Type: Registered Nurse Type: ED Notes Filed: 06/30/2024 01:13 Note Text: Pt reconnected to the quality assurance monitor, SpO2 on RA and NIBP. Call light within reach. [facility] ED NOTE HNO ID: [id number] Author: ANA ROSA BRANDT RN Service: Emergency Medicine Author Type: Registered Nurse Type: ED Notes Filed: 06/30/2024 00:50 Note Text: Xray notified [facility] ED NOTE HNO ID: [id number] Author: ANA ROSA BRANDT RN Service: Emergency Medicine Author Type: Registered Nurse Type: ED Notes Filed: 06/30/2024 00:18 Note Text: Pt assisted into bed with maximum assist from 2 staff members at this time. [facility] ED NOTE HNO ID: [id number] Author: LISA DE LEÓN RN Service: ? Author Type: Registered Nurse Type: ED Notes Filed: 06/30/2024 00:10 Note Text: Bed: 18-ED Expected date: Expected time: Means of arrival: Comments: TRIAGE [facility] ED PROV NOTEon 06-30-2024 ED PROV NOTE HNO ID: [id number] Author: RICKEY CROW DO Service: Emergency Medicine Author Type: Physician Type: ED Provider Notes Filed: 06/30/2024 03:48 Note Text: Attending Physician Attestation Note: Cotton findings confirmed. I saw the patient in coordination with the resident physician. I personally interviewed and examined the patient. I discussed the patient with the resident physician. I reviewed the resident physician's note. I was present for cotton portions of and personally supervised any/all procedures. I personally saw the patient and performed a substantive portion of the visit including all aspects of the medical decision making. I agree with the resident physician's findings and medical decision making unless otherwise documented. External fixation device on the right lower extremity below the knee. There are 2 separate areas where the Ex-Fix device enters the skin, the first is on the proximal lateral tibia region. The second is more distally just above the right ankle. There is some yellow crusting discharge from the proximal Ex-Fix insertion site. No thrombophlebitis. No surrounding cellulitis of the skin. There is some calf tenderness. There is no crepitus. Specifically no evidence of deep space soft tissue infection. Plus DP and PT pulses. Sensation intact to light touch throughout. Patient recently had Ex-Fix placed due to right periprosthetic proximal tibia fracture in April of this year. Patient began having pain and drainage from the Ex-Fix insertion site. She was seen at [facility] emergency department or wound cultures were obtained. Her orthopedic surgeon was contacted and agreed with discharge and outpatient follow-up of the wound cultures. Wound cultures resulted showing MRSA. She was discharged on Keflex and Bactrim which she has been taking. She was instructed to come back to the emergency department to be evaluated by orthopedic surgery for the wound cultures. Orthopedic surgery consulted. Blood cultures obtained. She denies any systemic symptoms such as fevers, chills. She does have pain in the right lower extremity. No clinical evidence of DVT. Orthopedic surgery evaluated patient at bedside. She is not septic. They think it is more likely an incision site infection and recommend continued outpatient antibiotics and close follow-up with the orthopedic surgeon in the office. Patient agreeable with this treatment plan. Patient discharged from the Emergency Department. I do not feel that the patient's evaluation reveals any acute reason for admission at this time. I instructed them to either follow up with their primary care physician or promptly return to the Emergency Department for reevaluation should symptoms worsen or new symptoms develop. I explained what symptoms would indicate the need to return to the Emergency Department. Shared decision making was used. The patient voiced understanding of the treatment plan and is agreeable with it. RICKEY CROW 06/30/24 0112 RICKEY CROW 06/30/24 0348 [facility] ED PROV NOTE HNO ID: [id number] Author: RICKEY CROW DO Service: Emergency Medicine Author Type: Resident Type: ED Provider Notes Filed: 07/01/2024 02:48 Note Text: -- Attestation signed by Rickey Crow DO at 07/01/2024 2:48 AM Attending Attestation Note: Cotton findings confirmed. I evaluated the patient in conjunction with the resident physician. I personally examined the patient. I discussed the patient with the resident physician. I reviewed the resident physician's note. I was present for cotton portions of and personally supervised any/all procedures. I personally saw the patient and performed a substantive portion of the visit including all aspects of the medical decision making. Please refer to my separately documented ED Provider Note for further details. Signature: Rickey Crow DO Date: 07/01/2024 Time: 2:48 AM -- ED Provider Note Patient Name: Zackery Nunez : 1960 SERVICE DATE: 06/29/24 History Patient presents with: Wound Infection: Dr. Rascon ortho surgery operated on right leg 05/07, ortho fixature, right mat has an infection mrsa, denies fever or chills, states also has a uti The patient is a 64-year-old female who presented to emergency department with concerns for wound infection after orthopedic surgery. Patient reports that she had a fall and sustained a proximal tibial fracture in April. Patient reports that she had surgery on the right leg on 05/07. Patient was placed in external fixation. Patient reports that she has had worsening pain in the leg as well as purulent drainage from around the external fixation points. Patient was seen yesterday at [facility] where wound cultures were obtained. The patient's orthopedic surgeon recommended that the patient was safe for discharge. Patient was sent home on Keflex and Bactrim. Patient was instructed to return to the emergency department after wound cultures were positive for MRSA. Patient reports worsening discomfort in the leg as well as increased purulent drainage from the wound. Patient denies fever, chills, chest pain, shortness of breath. PAST MEDICAL HISTORY Diagnosis Date Anxiety disorder Arthritis Chronic back pain Dr. Burks-pain management Depressive disorder, not elsewhere classified Diabetes (HCC) Pt reports she takes cinnamin tabs to manage her diabetes Essential hypertension, benign Fibromyalgia Glaucoma IBS (irritable bowel syndrome) Migraine, unspecified, without mention of intractable migraine without mention of status migrainosus PONV (postoperative nausea and vomiting) Pure hypercholesterolemia Rheumatoid arthritis (HCC) Sleep apnea pt states she snores frequently;though never worked-up for RUPESH Snoring PAST SURGICAL HISTORY Procedure Laterality Date [...] Never Smokeless tobacco: Never Vaping Use Vaping status: Never Used Substance and Sexual Activity Alcohol use: No Drug use: No Sexual activity: Not Currently ALLERGIES Allergen Reactions Compazine [Prochlor* Other: See Comments Pt reports it makes more nausea Vaibhav [Fexofenadi* Intolerance Augmentin [Amoxicil* Intolerance Bentyl [Dicyclomine* GI Upset Biaxin [Clarithromy* Intolerance Ceclor [Cefaclor] Intolerance Celebrex [Celecoxib] Intolerance Colestipol Other: See Comments shaky/headaches/increased nausea Doxepin Intolerance Fentanyl Intolerance Pt doesn't remember the reaction Humira [Adalimumab] Intolerance Levaquin [Levofloxa* Intolerance Metformin GI Upset Gi intolerance Plaquenil [Hydroxyc* Intolerance Seldane Intolerance Septra [Sulfamethox* Intolerance Sulfa (Sulfonamide * Intolerance Vibramycin [Doxycyc* Intolerance Vicodin [Hydrocodon* Intolerance Review of Systems Constitutional: Negative for chills and fever. Respiratory: Negative for shortness of breath. Cardiovascular: Negative for chest pain. Gastro (more content not included)... [facility] Urinalysis complete panel (U )on 06-30-2024 Bilirubin Ql (U) Negative Normal Negative [facility] Comment on above: Order Comment: Speci men Type: URINE SPECIMENOrdering Facility: [facility] Address: [address] [place] [address] Performed By: #### 2 4356-8 ####[facility] [facility]ORYCL[facility] [id number] [address] Clarity (Unsp spec) Clear Normal Clear [facility] Comment on above: Order Comment: Speci men Type: URINE SPECIMENOrdering Facility: [facility] Address: [address] [place] [address] Performed By: #### 2 4356-8 ####[facility] [facility]ATORYCL[facility] [id number] [address] Color (U) Light Yellow Normal yellow [facility] Comment on above: Order Comment: Speci men Type: URINE SPECIMENOrdering Facility: [facility] Address: [address] [place] [address] Performed By: #### 2 4356-8 ####[facility] [facility]ATORYCL[facility] [id number] [address] Epithelial cells LM.HPF (Urine sed) [#/Area] Few [facility] Comment on above: Order Comment: Speci men Type: URINE SPECIMENOrdering Facility: [facility] Address: [address] [place] [address] Result Comment: Few Performed By: #### 2 4356-8 ####[facility] [facility]ATORYCL[facility] [id number] [address] Glucose Test strip (U) [Mass/Vol] Negative Normal Trace, Negative [facility] Comment on above: Order Comment: Speci men Type: URINE SPECIMENOrdering Facility: [facility] Address: [address] [place] [address] Performed By: #### 2 4356-8 ####[facility] [facility]ATORYCL[facility] [id number] [address] Hemoglobin Ql (U) Negative Normal Negative, Trace [facility] Comment on above: Order Comment: Speci men Type: URINE SPECIMENOrdering Facility: [facility] Address: [address] [place] [address] Performed By: #### 2 4356-8 ####[facility] LAB[facility]ATORYCLIA [id number] [place] [address] [place] Ketones Ql (U) Negative Normal Negative, Trace [facility] Comment on above: Order Comment: Speci men Type: URINE SPECIMENOrdering Facility: [facility] Address: [address] [place] [address] Performed By: #### 2 4356-8 ####[facility] [facility]ATORYCL[facility] [id number] [address] Leukocyte esterase Test strip Ql (U) 75 Dheeraj/uL Abnormal Negative, 25 Dheeraj/uL [facility] Comment on above: Order Comment: Speci men Type: URINE SPECIMENOrdering Facility: [facility] Address: [address] [place] [address] Performed By: #### 2 4356-8 ####[facility] [facility]ATORYCLIA [id number] [address] Nitrite Ql (U) Negative Normal Negative [facility] Comment on above: Order Comment: Speci men Type: URINE SPECIMENOrdering Facility: [facility] Address: [address] [place] [address] Performed By: #### 2 4356-8 ####[facility] LAB[facility]ATORYCLIA [id number] [address] [place] pH (U) 5.5 [pH] Normal 5.0-8.0 [facility] Comment on above: Order Comment: Speci men Type: URINE SPECIMENOrdering Facility: [facility] Address: [address] [place] [address] Performed By: #### 2 4356-8 ####[facility] LAB[facility]ATORYCLIA [id number] [address] [place] Protein (U) [Mass/Vol] Negative Normal Trace, Negative [facility] Comment on above: Order Comment: Speci men Type: URINE SPECIMENOrdering Facility: [facility] Address: [address] [place] [address] Performed By: #### 2 4356-8 ####[facility] LAB[facility]ATORYCLIA [id number] [place] [address] [place] RBC LM.HPF (Urine sed) [#/Area] 0-3 /HPF Normal 0-3 /HPF [facility] Comment on above: Order Comment: Speci men Type: URINE SPECIMENOrdering Facility: [facility] Address: [address] [place] [address] Performed By: #### 2 4356-8 ####[facility]LAERCLIA [id number] [address] [place] Specific gravity (U) [Rel density] 1.017 Normal 1.005-1.03 0 [facility] Comment on above: Order Comment: Speci men Type: URINE SPECIMENOrdering Facility: [facility] Address: [address] [place] [address] Performed By: #### 2 4356-8 ####[facility] [facility]ATORYCLIA [id number] [address] Urobilinogen Ql (U) Normal Normal Normal [facility] Comment on above: Order Comment: Speci men Type: URINE SPECIMENOrdering Facility: [facility] Address: [address] [place] [address] Performed By: #### 2 4356-8 ####[facility] [facility]ATORYCLIA [id number] [address] [place] WBC LM.HPF (Urine sed) [#/Area] 0-5 /HPF Normal 0-5 /HPF [facility] Comment on above: Order Comment: Speci men Type: URINE SPECIMENOrdering Facility: [facility] Address: [address] [place] [address] Performed By: #### 2 4356-8 ####[facility] LAB[facility]ATORYCLIA [id number] [place] [address] [place] XR FEMUR 2V AP/LAT RTon XR FEMUR 2V AP/LAT RT * * *Final Report* * * DATE OF EXAM: Jun 30 2024 1:19AM AKX [id number] - XR FEMUR 2V AP/LAT RT / PROCEDURE REASON: Post-operative / post-procedure assessment * * * * Physician Interpretation * * * * EXAMINATION: XR TIBIA FIBULA 2V AP/LAT RT, XR KNEE 2V AP/LAT RT, XR FEMUR 2V AP/LAT RT HISTORY: osteomyelitis, x-fix in place, pt has mrsa Osteomyelitis. TECHNIQUE: XR TIBIA FIBULA 2V AP/LAT RT, XR KNEE 2V AP/LAT RT, XR FEMUR 2V AP/LAT RT Laterality: RIGHT Number of different views (projections): 2 M: XB_1 COMPARISON: 05/07/2024. RESULT: External fixators in place with anchoring screws within the distal femoral diaphysis and proximal tibial diaphysis. Linear lucency extends through the proximal tibia, close to the proximal external fixator screw consistent with a nondisplaced fracture. Redemonstrated periprosthetic fracture of the right proximal tibia, internally fixated with a medial plate and screws. No interval change in alignment. Right total knee arthroplasty appears well seated and aligned. No cortical erosive change or periosteal reaction identified. Right hip is not well evaluated due to poor penetration, though no fracture or traumatic malalignment identified. IMPRESSION: * No radiographic evidence of osteomyelitis. * Suspected nondisplaced fracture of the proximal tibia, extending to the proximal external fixator screw. * Redemonstrated internally fixated periprosthetic fracture of the right proximal tibia. * Digital Marketing Manager: PSCB Transcribe Date/Time: Jun 30 2024 1:22A Dictated by : GERALD QUINTERO MD This examination was interpreted and the report reviewed and electronically signed by: GERALD QUINTERO MD on Jun 30 2024 1:28AM EST [id number] [facility] XR KNEE 2V AP/LAT RTon 06-30 XR KNEE 2V AP/LAT RT * * *Final Report* * * DATE OF EXAM: Jun 30 2024 1:19AM AKX [id number] - XR KNEE 2V AP/LAT RT / PROCEDURE REASON: Osteoarthritis * * * * Physician Interpretation * * * * EXAMINATION: XR TIBIA FIBULA 2V AP/LAT RT, XR KNEE 2V AP/LAT RT, XR FEMUR 2V AP/LAT RT HISTORY: osteomyelitis, x-fix in place, pt has mrsa Osteomyelitis. TECHNIQUE: XR TIBIA FIBULA 2V AP/LAT RT, XR KNEE 2V AP/LAT RT, XR FEMUR 2V AP/LAT RT Laterality: RIGHT Number of different views (projections): 2 M: XB_1 COMPARISON: 05/07/2024. RESULT: External fixators in place with anchoring screws within the distal femoral diaphysis and proximal tibial diaphysis. Linear lucency extends through the proximal tibia, close to the proximal external fixator screw consistent with a nondisplaced fracture. Redemonstrated periprosthetic fracture of the right proximal tibia, internally fixated with a medial plate and screws. No interval change in alignment. Right total knee arthroplasty appears well seated and aligned. No cortical erosive change or periosteal reaction identified. Right hip is not well evaluated due to poor penetration, though no fracture or traumatic malalignment identified. IMPRESSION: * No radiographic evidence of osteomyelitis. * Suspected nondisplaced fracture of the proximal tibia, extending to the proximal external fixator screw. * Redemonstrated internally fixated periprosthetic fracture of the right proximal tibia. * Digital Marketing Manager: CHERELLE Transcribe Date/Time: Jun 30 2024 1:22A Dictated by : GERALD QUINTERO MD This examination was interpreted and the report reviewed and electronically signed by: GERALD QUINTERO MD on Jun 30 2024 1:28AM EST [id number] [facility] XR TIBIA FIBULA 2V AP/LAT RT on 06-30-2024 XR TIBIA FIBULA 2V AP/LAT RT * * *Final Report* * * DATE OF EXAM: Jun 30 2024 1:19AM AKX [id number] - XR TIBIA FIBULA 2V AP/LAT RT / PROCEDURE REASON: Osteomyelitis * * * * Physician Interpretation * * * * EXAMINATION: XR TIBIA FIBULA 2V AP/LAT RT, XR KNEE 2V AP/LAT RT, XR FEMUR 2V AP/LAT RT HISTORY: osteomyelitis, x-fix in place, pt has mrsa Osteomyelitis. TECHNIQUE: XR TIBIA FIBULA 2V AP/LAT RT, XR KNEE 2V AP/LAT RT, XR FEMUR 2V AP/LAT RT Laterality: RIGHT Number of different views (projections): 2 M: XB_1 COMPARISON: 05/07/2024. RESULT: External fixators in place with anchoring screws within the distal femoral diaphysis and proximal tibial diaphysis. Linear lucency extends through the proximal tibia, close to the proximal external fixator screw consistent with a nondisplaced fracture. Redemonstrated periprosthetic fracture of the right proximal tibia, internally fixated with a medial plate and screws. No interval change in alignment. Right total knee arthroplasty appears well seated and aligned. No cortical erosive change or periosteal reaction identified. Right hip is not well evaluated due to poor penetration, though no fracture or traumatic malalignment identified. IMPRESSION: * No radiographic evidence of osteomyelitis. * Suspected nondisplaced fracture of the proximal tibia, extending to the proximal external fixator screw. * Redemonstrated internally fixated periprosthetic fracture of the right proximal tibia. * Digital Marketing Manager: [facility] Transcribe Date/Time: Jun 30 2024 1:22A Dictated by : GERALD QUINTERO MD This examination was interpreted and the report reviewed and electronically signed by: GERALD QUINTERO MD on Jun 30 2024 1:28AM EST [id number] [facility] ED Triage Noteon 06-29-2024 ED Triage Note HNO ID: [id number] Author: JOCELIN BANUELOS PA-C Service: Emergency Medicine Author Type: Physician Barrel Loader Type: ED Triage Notes Filed: 06/29/2024 17:47 Note Text: ED TRIAGE PROVIDER NOTE Patient Name: Zackery Nunez Service Date: 06/29/24 BRIEF HPI: This is a 64 year old female who presents to the ED with: Returns to the emergency department, yesterday was transferred from [facility] after positive blood cultures, she is status post Ex-Fix on the right leg, orthopedics saw the patient yesterday per their documentation she was stable for discharge. Patient return to the emergency department due to concern of culture positive MRSA. I do not have documentation regarding this finding it appears that this was from her blood culture from [facility], cultures obtained yesterday of the leg reported no growth yet. She denies any fever or chills she reports persistent pain she reports history of diabetes. Per chart review from yesterday orthopedics was okay for outpatient management however with positive blood cultures there was concern about medical admission. BRIEF EXAM: NAD Awake and Alert Non labored breathing No focal neurological deficits Ex-Fix right lower extremity without significant drainage around the pin sites. No significant erythema or cellulitis is noted. Scars appear benign. INITIAL WORKUP AND DECISION MAKING: Orders Placed This Encounter BASIC METABOLIC PNL CBC + DIFF Urinalysis w Microscopic, reflex Culture SIGNATURE: Jose Antonio Banuelos PA-C [facility] Bacteria Wnd Culton 06-28-19 Bacteria identified Cx Nom (Wound) ORGANISM ID: 1 Few Staphylococcus aureus ORGANISM ID: 2 Few Corynebacterium striatum group GRAM STAIN: No organisms seen Many Polymorphonuclear leukocytes Rare Red Blood Cells ORGANISM ID: 1 (STAPHYLOCOCCUS AUREUS) ANTIBIOTIC INTERPRETATION MANUEL STATUS REFERENCE RANGE Oxacillin R >2 F Susceptible <=2 , Intermediate >2 , Resistant >2 Oxacillin resistant Staphylococci are resistant to all beta-lactam antibiotics (except new cephalosporins with anti-MRSA activity i.e. ceftaroline) Gentamicin S <=2 F Susceptible <=4 , Intermediate >4 , Resistant >8 Erythromycin R >4 F Susceptible <=0.5 , Intermediate >.5 , Resistant >4 Clindamycin R >2 F Susceptible <=0.5 , Intermediate >.5 , Resistant >2 Trimeth sulfameth S <=1 F Vancomycin S <=0.5 F Susceptible <=2 , Intermediate >2 , Resistant >=16 Daptomycin S <=1 F Susceptible <=1 , Nonsusceptible >1 Linezolid S 1 F Susceptible <=4 , Intermediate >4 , Resistant >4 Rifampin S <=0.5 F Susceptible <=1 , Intermediate >1 , Resistant >2 Rifampin should not be used alone for antimicrobial therapy. Tetracycline S 2 F Susceptible <=4 , Intermediate >4 , Resistant >8 Abnormal [facility] Comment on above: Performed By: #### 6 462-6 #### [facility] [place] [place] [facility] CLIA [id number] [address] STATES OF [facility] CBC W Auto Differential pane l (Bld)on 06-28-2024 Basophils (Bld) [#/Vol] 0.04 10*3/uL Normal <0.11 [facility] Comment on above: Order Comment: Speci men Type: BLOOD SPECIMENOrdering Facility: [facility] Address: [address] [place] [address] Performed By: #### 5 7021-8 ####[facility] [place] [place] [facility] [id number] [address] [place] Basophils/100 WBC (Bld) 0.5 % Normal [facility] Comment on above: Order Comment: Speci men Type: BLOOD SPECIMENOrdering Facility: [facility] Address: [address] [place] [address] Performed By: #### 5 7021-8 ####[facility] [place] [place] [facility] [id number] [address] STATES [facility] Differential cell count method Nom (Bld) Auto Normal [facility] Comment on above: Order Comment: Speci men Type: BLOOD SPECIMENOrdering Facility: [facility] Address: [address] [place] [address] Performed By: #### 5 7021-8 ####[facility] [place] [facility] [id number] [place] [address] [place] Eosinophils (Bld) [#/Vol] 0.13 10*3/uL Normal <0.46 [facility] Comment on above: Order Comment: Speci men Type: BLOOD SPECIMENOrdering Facility: [facility] Address: [address] [place] [address] Performed By: #### 5 7021-8 ####[facility] [place] [facility] [id number] [address] [place] Eosinophils/100 WBC (Bld) 1.5 % Normal [facility] Comment on above: Order Comment: Speci men Type: BLOOD SPECIMENOrdering Facility: [facility] Address: [address] [place] [address] Performed By: #### 5 7021-8 ####[facility] [place] [facility] [id number] [address] [place] Erythrocyte distribution width (RBC) [Ratio] 14.6 % Normal 11.5-15.0 [facility] Comment on above: Order Comment: Speci men Type: BLOOD SPECIMENOrdering Facility: [facility] Address: [address] [place] [address] Performed By: #### 5 7021-8 ####[facility] [place] [facility] [id number] [address] [place] Hematocrit (Bld) [Volume fraction] 33.7 % Low 36.0-46.0 [facility] Comment on above: Order Comment: Speci men Type: BLOOD SPECIMENOrdering Facility: [facility] Address: [address] [place] [address] Performed By: #### 5 7021-8 ####[facility] [place] [facility] [id number] [address] [place] Hemoglobin (Bld) [Mass/Vol] 10.7 g/dL Low 11.5-15.5 [facility] Comment on above: Order Comment: Speci men Type: BLOOD SPECIMENOrdering Facility: [facility] Address: [address] [place] [address] Performed By: #### 5 7021-8 ####[facility] [place] [place] [facility] [id number] [address] Immature granulocytes (Bld) [#/Vol] 0.03 10*3/uL Normal <0.10 [facility] Comment on above: Order Comment: Speci men Type: BLOOD SPECIMENOrdering Facility: [facility] Address: [address] [place] [address] Performed By: #### 5 7021-8 ####[facility] [place] [facility] [id number] [address] STATES [facility] Immature granulocytes/100 WBC (Bld) 0.3 % Normal [facility] Comment on above: Order Comment: Speci men Type: BLOOD SPECIMENOrdering Facility: [facility] Address: [address] [place] [address] Performed By: #### 5 7021-8 ####[facility] [place] [facility] [id number] [address] [place] Lymphocytes (Bld) [#/Vol] 2.73 10*3/uL Normal 1.00-4.00 [facility] Comment on above: Order Comment: Speci men Type: BLOOD SPECIMENOrdering Facility: [facility] Address: [address] [place] [address] Performed By: #### 5 7021-8 ####[facility] [place] [facility] [id number] [address] Lymphocytes/100 WBC (Bld) 31.4 % Normal [facility] Comment on above: Order Comment: Speci men Type: BLOOD SPECIMENOrdering Facility: [facility] Address: [address] [place] [address] Performed By: #### 5 7021-8 ####[facility] [place] [facility] [id number] [address] [place] MCH (RBC) [Entitic mass] 26.6 pg Normal 26.0-34.0 [facility] Comment on above: Order Comment: Speci men Type: BLOOD SPECIMENOrdering Facility: [facility] Address: [address] [place] [address] Performed By: #### 5 7021-8 ####[facility] [place] [facility] [id number] [address] [place] MCHC (RBC) [Mass/Vol] 31.8 g/dL Normal 30.5-36.0 [facility] Comment on above: Order Comment: Speci men Type: BLOOD SPECIMENOrdering Facility: [facility] Address: [address] [place] [address] Performed By: #### 5 7021-8 ####[facility] [place] [facility] [id number] [address] [place] MCV (RBC) [Entitic vol] 83.6 fL Normal 80.0-100.0 [facility] Comment on above: Order Comment: Speci men Type: BLOOD SPECIMENOrdering Facility: [facility] Address: [address] [place] [address] Performed By: #### 5 7021-8 ####[facility] [place] [facility]ORYCL[facility] [id number] [address] STATES OF [facility] Monocytes (Bld) [#/Vol] 0.49 10*3/uL Normal <0.87 [facility] Comment on above: Order Comment: Speci men Type: BLOOD SPECIMENOrdering Facility: [facility] Address: [address] [place] [address] Performed By: #### 5 7021-8 ####[facility] [place] [facility] [id number] [address] Monocytes/100 WBC (Bld) 5.6 % Normal [facility] Comment on above: Order Comment: Speci men Type: BLOOD SPECIMENOrdering Facility: [facility] Address: [address] [place] [address] Performed By: #### 5 7021-8 ####[facility] [place] [facility] [id number] [address] [place] Neutrophils (Bld) [#/Vol] 5.28 10*3/uL Normal 1.45-7.50 [facility] Comment on above: Order Comment: Speci men Type: BLOOD SPECIMENOrdering Facility: [facility] Address: [address] [place] [address] Performed By: #### 5 7021-8 ####[facility] [place] [facility] [id number] [address] Neutrophils/100 WBC (Bld) 60.7 % Normal [facility] Comment on above: Order Comment: Speci men Type: BLOOD SPECIMENOrdering Facility: [facility] Address: [address] [place] [address] Performed By: #### 5 7021-8 ####[facility] [place] [facility] [id number] [address] [place] Nucleated RBC (Bld) [#/Vol] 10*3/uL Normal <0.01 [facility] Comment on above: Order Comment: Speci men Type: BLOOD SPECIMENOrdering Facility: [facility] Address: [address] [place] [address] Performed By: #### 5 7021-8 ####[facility] [place] [facility] [id number] [address] Nucleated RBC/100 WBC (Bld) [Ratio] 0.0 /100 WBC Normal [facility] Comment on above: Order Comment: Speci men Type: BLOOD SPECIMENOrdering Facility: [facility] Address: [address] [place] [address] Performed By: #### 5 7021-8 ####[facility] [place] [facility] [id number] [address] [place] Platelet mean volume (Bld) [Entitic vol] 10.2 fL Normal 9.0-12.7 [facility] Comment on above: Order Comment: Speci men Type: BLOOD SPECIMENOrdering Facility: [facility] Address: [address] [place] [address] Performed By: #### 5 7021-8 ####[facility] [facility] [id number] [address] [place] Platelets (Bld) [#/Vol] 539 10*3/uL High 150-400 [facility] Comment on above: Order Comment: Speci men Type: BLOOD SPECIMENOrdering Facility: [facility] Address: [address] [place] [address] Performed By: #### 5 7021-8 ####[facility] [facility]ORYCL[facility] [id number] [address] OF [facility] RBC (Bld) [#/Vol] 4.03 10*6/uL Normal 3.90-5.20 [facility] Comment on above: Order Comment: Speci men Type: BLOOD SPECIMENOrdering Facility: [facility] Address: [address] [place] [address] Performed By: #### 5 7021-8 ####[facility] [place] [facility] [id number] [address] WBC (Bld) [#/Vol] 8.70 10*3/uL Normal 3.70-11.00 [facility] Comment on above: Order Comment: Speci men Type: BLOOD SPECIMENOrdering Facility: [facility] Address: [address] [place] [address] Performed By: #### 5 7021-8 ####[facility] [place] [facility] [id number] [address] CNPNon 06-28-2024 CNPN Telephone (AGPOB1) -- ZACKERY NUNEZ ([id number]) 1960 F Date Time Provider Department 06/28/24 SYDNI WAGGONER During your visit today, we recorded the following information about you: Teresa Crawford Twyla 06/28/2024 12:48 PM Signed I rec'd a call from the patient that she was notified to come to the ER as her cultures grew something and she would need IV antibiotics. I called [facility] [phone] and requested records from the ER visit. I have them scanned into [employer]. Teresa Crawford Allergies As of Date: 06/28/2024 Noted Allergy Reaction COMPAZINE (PROCHLORPERAZINE EDISY*07/14/2014 14 - Other: See Comments Comments: Pt reports it makes more nausea VAIBHAV (FEXOFENADINE HCL) 07/14/2014 5 - Intolerance AUGMENTIN (AMOXICILLIN-POT CLAVUL*07/14/2014 5 - Intolerance BENTYL (DICYCLOMINE HCL) 06/24/2015 8 - GI Upset BIAXIN (CLARITHROMYCIN) 07/14/2014 5 - Intolerance CECLOR (CEFACLOR) 07/14/2014 5 - Intolerance CELEBREX (CELECOXIB) 07/14/2014 5 - Intolerance COLESTIPOL 11/24/2014 14 - Other: See Comments Comments: shaky/headaches/increased nausea DOXEPIN 07/14/2014 5 - Intolerance FENTANYL 07/14/2014 5 - Intolerance Comments: Pt doesn't remember the reaction HUMIRA (ADALIMUMAB) 07/14/2014 5 - Intolerance LEVAQUIN (LEVOFLOXACIN) 07/14/2014 5 - Intolerance METFORMIN 11/21/2023 8 - GI Upset Comments: Gi intolerance PLAQUENIL (HYDROXYCHLOROQUINE SUL*07/14/2014 5 - Intolerance SELDANE 07/14/2014 5 - Intolerance SEPTRA (SULFAMETHOXAZOLE-TRIMETHO *07/14/2014 5 - Intolerance SULFA (SULFONAMIDE ANTIBIOTICS) 07/14/2014 5 - Intolerance VIBRAMYCIN (DOXYCYCLINE CALCIUM) 07/14/2014 5 - Intolerance VICODIN (HYDROCODONE-ACETAMINOPHE* 07/14/2014 5 - Intolerance Date Reviewed: 06/09/2024 Reviewed by: Sydni Waggoner MD - Fully Assessed Reason for Visit: Patient Update [1234] Prescriptions as of 06/28/2024 - buprenorphine (BUTRANS) 20 mcg/hour transdermal patch Apply 1 Patch as directed one time a week for 7 days. Last APPLIED 05/08 - acetaminophen (TYLENOL) 325 mg tablet Take 2 tablets by mouth every 6 hours as needed for pain. - gabapentin (NEURONTIN) 300 mg capsule Take 3 capsules by mouth daily at bedtime for 30 days. - gabapentin (NEURONTIN) 300 mg capsule Take 3 capsules by mouth once daily for 30 days. Daily at noon - polyethylene glycol 3350 17 gram packet Take 1 Packet by mouth once daily as needed. Dissolve dose in 4 - 8 ounces of liquid and take as directed. - lisinopril (ZESTRIL) 10 mg tablet Take 1 tablet by mouth once daily. - estradiol (ESTRACE) 0.01 % (0.1 mg/gram) vaginal cream Use 3 g vaginally once daily. - atorvastatin (LIPITOR) 10 mg tablet Take 1 tablet by mouth once daily. - busPIRone HCl 30 mg tablet Take 1 tablet by mouth two times a day. - omeprazole (PRILOSEC) 40 mg capsule Take 40 mg by mouth once daily. - hyoscyamine sublingual (LEVSIN/SL) 0.125 mg Dissolve 1 tablet under the tongue every 4 hours as needed. - citalopram (CELEXA) 40 mg tablet Take 1 tablet by mouth once daily. - promethazine (PHENERGAN) 25 mg tablet Take 1 tablet by mouth every 6 hours as needed. - SUMAtriptan (IMITREX) 50 mg tablet Take 1 tablet (50 mg) by mouth as needed. - oxyCODONE-acetaminophen (PERCOCET) 5-325 mg tablet 1 tablet three times daily as needed. - upadacitinib (RINVOQ ORAL) Take 15 mg by mouth. - amitriptyline (ELAVIL) 10 mg tablet Take 1 tablet by mouth daily at bedtime. - Cetirizine 10 mg cap Take by mouth. - CALCIUM POLYCARBOPHIL (FIBER LAXATIVE ORAL) Take by mouth. - multivitamin tablet Take 1 tablet by mouth once daily. - latanoprost (XALATAN) 0.005 % ophthalmic solution 1 Drop daily at bedtime. - docusate sodium (COLACE) 100 mg capsule Take 100 mg by mouth twice daily. 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 both eyes [H40.003] 05/11/2019 Irritable bowel syndrome with constipation [K58*05/11/2019 Chronic insomnia [F51.04] 05/11/2019 HLD (hyperlipidemia) [E78.5] 05/11/2019 Hyperglycemia [R73.9] 05/11/2019 03/12/2021 Panic disorder [F41.0] 05/11/2019 Migraine without aura, intractable, without sta*05/11/2019 Chronic back pain [M54.9, G89.29] 09/17/2021 Type 2 diabetes mellitus without complication, *03/12/2021 Elevated BP without diagnosis of hypertension [*11/17/2021 01/14/2022 HTN (hypertension) [I10] 01/14/2022 Obesity, Class III, BMI 40-49.9 (morbid obesity*10/25/2022 05/12/2023 Stage 3 chronic kidney disease (HCC) [N18.30] 10/25/2022 Periprosthetic fracture around prosthetic knee,*05/02/2024 Obesity, Class I, BMI 30-34.9 [E66.811] 05/03/2024 Post- (more content not included)... Normal [facility] CONSULTon 06-28-2024 CONSULT HNO ID: [id number] Author: SYDNI WAGGONER MD Service: Orthopaedic Surgery Author Type: Physician Type: Consults Filed: 06/29/2024 09:29 Note Text: Orthopaedic Trauma Surgery Attending Addendum Reviewed resident Consultation. Agree with resident image interpretation, assessment and plan unless otherwise noted. Afebrile. WBC of 8.70. The patient's clinical photos demonstrate a well-healed surgical incision to the medial proximal lower leg. There is drainage about the proximal pin sites of the right lower extremity external fixator. X-rays of the right knee demonstrate acceptable length, alignment and rotation of the periprosthetic proximal tibia fracture. Low suspicion for surgical site infection of the periprosthetic proximal tibia fracture based upon clinical photographs of the incision. The patient may be treated for pin site infection with oral antibiotics and daily wound care (half saline and half peroxide cleansing about the pins). Low suspicion for sepsis from pin site infection. Recommend further workup if suspicion is high for sepsis. Sydni Waggoner MD Orthopaedic Trauma Surgery 06/29/2024 9:22 AM Orthopaedic Surgery Consultation Note Reason for Consultation: Concern for surgical site infection Consulting Physician: Sydni Waggoner MD Date: June 28, 2024 Time: 9:19 PM History of Present Illness 64 year old female being evaluated today regarding concern for right knee surgical site infection. Patient currently has an ex fix to the right knee after ORIF of a periprosthetic tibia fracture on 05/[address] Waggoner. She was transferred here from [place] for evaluation of her surgical site as she been having some drainage from her proximal thigh pin site. Patient states over the last few days she has had increased pain to the right knee as well. Per report she had positive cultures that grew something from previous ED visit. Of note she has also been having urinary symptoms and had a recently diagnosed UTI. She denies any new trauma to right knee. Denies fevers or chills. Review of Systems 10-point ROS negative except as in HPI. History PAST MEDICAL HISTORY Diagnosis Date Anxiety disorder Arthritis Chronic back pain Dr. Burks-pain management Depressive disorder, not elsewhere classified Diabetes (HCC) Pt reports she takes cinnamin tabs to manage her diabetes Essential hypertension, benign Fibromyalgia Glaucoma IBS (irritable bowel syndrome) Migraine, unspecified, without mention of intractable migraine without mention of status migrainosus PONV (postoperative nausea and vomiting) Pure hypercholesterolemia Rheumatoid arthritis (HCC) Sleep apnea pt states she snores frequently;though never worked-up for RUPESH Snoring PAST SURGICAL HISTORY Procedure Laterality Date [...] HX TUBAL LIGATION HX 08/11/1997 VAGINAL HYSTERECTOMY Pneumococcal Vaccine: 50+(1 of 2 - PCV) Never done RSV Vaccine(1 - Risk 60-74 years 1-dose series) Never done Cervical Cancer Screening due on 02/20/2021 Diabetic Foot Exam due on 05/12/2024 Advance Directive Discussion due on 06/26/2024 Mammogram Screening due on 05/29/2024 DTaP,Tdap,Td Vaccine(1 - Tdap) due on 11/20/2024 Covid-19 Vaccine(1) due on 11/20/2024 HbA1C due on 11/06/2024 Depression Screening due on 11/20/2024 Urine Albumin:Creatinine Ratio due on 11/22/2024 LDL Cholesterol due on 11/22/2024 Dilated Retinal Exam due on 11/26/2024 Annual PCP Team Chronic Disease Visit due on 02/19/2025 BP Controlled (<130/80) due on 04/09/2025 Serum Creatinine due on 06/28/2025 Colorectal Cancer Screening due on 05/27/2032 Bone Density Screening Completed Hepatitis C Screening Completed Shingrix Vaccine Completed Influenza Vaccine Discontinued A review of the patient's history was completed and is otherwise non-contributory to the patient's presenting condition. Medications buprenorphine (BUTRANS) 20 mcg/hour transdermal patchApply 1 Patch as directed one time a week for 7 days. Last APPLIED 05/08Disp: 1 PatchRfl: 0 acetaminophen (TYLENOL) 325 mg tabletTake 2 tablets by mouth every 6 hours as needed for pain.Disp: Rfl: gabapentin (NEURONTIN) 300 mg capsuleTake 3 capsules by mouth daily at bedtime for 30 days.Disp: Rfl: gabapentin (NEURONTIN) 300 mg capsuleTake 3 capsules by mouth once daily for 30 days. Daily at noonDisp: Rfl: polyethylene glycol 3350 17 gram packetTake 1 Packet by mouth once daily as needed. Dissolve dose (more content not included)... Normal [facility] Comprehensive metabolic 2000 panelon 06-28-2024 Albumin [Mass/Vol] 3.8 g/dL Low 3.9-4.9 [facility] Comment on above: Order Comment: Speci men Type: BLOOD SPECIMENOrdering Facility: [facility] Address: [address] [place], [place] [id number] Performed By: #### 2 4323-8 ####[facility] [place] [facility]CL[facility] [id number] [place] [address] [place] ALP [Catalytic activity/Vol] 126 U/L High 34-123 [facility] Comment on above: Order Comment: Speci men Type: BLOOD SPECIMENOrdering Facility: [facility] Address: [address] [place] [address] Performed By: #### 2 4323-8 ####[facility]ATORYCLIA [id number] [place] [address] [place] ALT With P-5'-P [Catalytic activity/Vol] 10 U/L Normal 7-38 [facility] Comment on above: Order Comment: Speci men Type: BLOOD SPECIMENOrdering Facility: [facility] Address: [address] [place] [address] Performed By: #### 2 4323-8 ####[facility] GENERAL LABORATORYCLIA [id number] [address] STATES OF [facility] Anion gap [Moles/Vol] 16 mmol/L High 8-15 [facility] Comment on above: Order Comment: Speci men Type: BLOOD SPECIMENOrdering Facility: [facility] Address: [address] [place] [address] Performed By: #### 2 4323-8 ####[facility] [place] [facility]ORYCL[facility] [id number] [address] [place] AST With P-5'-P [Catalytic activity/Vol] 19 U/L Normal 13-35 [facility] Comment on above: Order Comment: Speci men Type: BLOOD SPECIMENOrdering Facility: [facility] Address: [address] [place] [address] Performed By: #### 2 4323-8 ####[facility]ORATORYCLIA [id number] [place] [address] [place] Bilirubin [Mass/Vol] 0.2 mg/dL Normal 0.2-1.3 [facility] Comment on above: Order Comment: Speci men Type: BLOOD SPECIMENOrdering Facility: [facility] Address: [address] [place] [address] Performed By: #### 2 4323-8 ####[facility] GENERAL LABORATORYCLIA [id number] [address] [place] Calcium [Mass/Vol] 9.5 mg/dL Normal 8.5-10.2 [facility] Comment on above: Order Comment: Speci men Type: BLOOD SPECIMENOrdering Facility: [facility] Address: [address] [place] [address] Performed By: #### 2 4323-8 ####[facility] [place] [place] [facility]ORYCLIA [id number] [place] [address] [place] Chloride [Moles/Vol] 96 mmol/L Low 98-107 [facility] Comment on above: Order Comment: Speci men Type: BLOOD SPECIMENOrdering Facility: [facility] Address: [address] [place] [address] Performed By: #### 2 4323-8 ####[facility] [place] [place] [facility]ORYCLIA [id number] [place] [address] [place] CO2 [Moles/Vol] 23 mmol/L Normal 22-30 [facility] Comment on above: Order Comment: Speci men Type: BLOOD SPECIMENOrdering Facility: [facility] Address: [address] [place] [address] Performed By: #### 2 4323-8 ####[facility] [place] [facility]ORYCLIA [id number] [address] [place] Creatinine [Mass/Vol] 0.97 mg/dL High 0.58-0.96 [facility] Comment on above: Order Comment: Speci men Type: BLOOD SPECIMENOrdering Facility: [facility] Address: [address] [place] [address] Performed By: #### 2 4323-8 ####[facility] [place] [place] [facility]ORYCL[facility] [id number] [address] Creatinine and Glomerular filtration rate.predicted panel (S/P/Bld) 65 mL/min/1.73m??? Normal >=60 [facility] Comment on above: Order Comment: Speci men Type: BLOOD SPECIMENOrdering Facility: [facility] Address: [address] [place] [address] Result Comment: Sienna mated Glomerular Filtration Rate (eGFR) is calculated using the 2020 CKD-EPI creatinine equation. This equation utilizes serum creatinine, sex, and age as parameters. The creatinine assay has traceable calibration to isotope dilution-mass spectrometry. Refer to KDIGO guidelines for clinical interpretation. In patients with unstable renal function, e.g. those with acute kidney injury, the eGFR may not accurately reflect actual GFR. Performed By: #### 2 4323-8 ####[facility] [place] [facility] [id number] [place] [address] [place] Glucose [Mass/Vol] 92 mg/dL Normal 74-99 [facility] Comment on above: Order Comment: Speci men Type: BLOOD SPECIMENOrdering Facility: [facility] Address: [address] [place] [address] Result Comment: The [place] Diabetes Association (ADA) provides guidance for cutoff values for fasting glucose and random glucose. The ADA defines fasting as no caloric intake for at least 8 hours. Fasting plasma glucose results between 100 to 125 mg/dL indicate increased risk for diabetes (prediabetes). Fasting plasma glucose results greater than or equal to 126 mg/dL meet the criteria for diagnosis of diabetes. In the absence of unequivocal hyperglycemia, results should be confirmed by repeat testing. In a patient with classic symptoms of hyperglycemia or hyperglycemic crisis, random plasma glucose results greater than or equal to 200 mg/dL meet the criteria for diagnosis of diabetes. Reference: Standards of Medical Care in Diabetes 2016, [place] Diabetes Association. Diabetes Care. 2016.39(Suppl 1). Performed By: #### 2 4323-8 ####[facility] [place] [facility] [id number] [place] [address] [place] Potassium [Moles/Vol] 3.7 mmol/L Normal 3.7-5.1 [facility] Comment on above: Order Comment: Speci men Type: BLOOD SPECIMENOrdering Facility: [facility] Address: [address] [id number] Performed By: #### 2 4323-8 ####[facility] [place] [facility]ORYCL[facility] [id number] [place] [id number] [place] Protein [Mass/Vol] 8.1 g/dL High 6.3-8.0 [facility] Comment on above: Order Comment: Speci men Type: BLOOD SPECIMENOrdering Facility: [facility] Address: [address] [place], [place] [address] Performed By: #### 2 4323-8 ####[facility] [place] [facility]ORYCL[facility] [id number] [address] Sodium [Moles/Vol] 135 mmol/L Low 136-144 [facility] Comment on above: Order Comment: Speci men Type: BLOOD SPECIMENOrdering Facility: [facility] Address: [address] [place] [address] Performed By: #### 2 4323-8 ####[facility] [place] [facility]ORYCL[facility] [id number] [place] [id number] [place] [facility] Urea nitrogen [Mass/Vol] 9 mg/dL Normal 7-21 [facility] Comment on above: Order Comment: Speci men Type: BLOOD SPECIMENOrdering Facility: [facility] Address: [address] [place] [address] Performed By: #### 2 4323-8 ####[facility] [facility]ORY[facility] [id number] [address] OF [facility] ED NOTEon 06-28-2024 ED NOTE HNO ID: [id number] Author: KUMAR VIVAR RN Service: ? Author Type: Registered Nurse Type: ED Notes Filed: 06/28/2024 15:43 Note Text: Xray aware pt ready Normal [facility] ED Triage Noteon 06-28-2024 ED Triage Note HNO ID: [id number] Author: JACI SUAREZ PA-C Service: Emergency Medicine Author Type: Physician Barrel Loader Type: ED Triage Notes Filed: 06/28/2024 22:02 Note Text: ED TRIAGE PROVIDER NOTE Patient Name: Zackery Nunez Service Date: 06/28/24 Provider in triage As provider in triage my care is limited to quick assessment and initiation of any orders able to be performed during triage. BRIEF HPI: This is a 64 year old female who presents to the ED with: Concerns for wound infection. Had periprosthetic fracture with surgery in April. States she went to [facility] on Monday for increased pain and drainage. She was placed on Keflex and Bactrim. Notified today of positive blood cultures and she would require IV antibiotics and admission. BRIEF EXAM: Constitutional: Well-developed, well-nourished, NAD. HEENT: Normocephalic, atraumatic. Respiratory: CTA bilaterally, no respiratory distress. Cardiac: RRR, heart sounds normal. Abdomen: Soft, NABS x4. Nontender, no guarding or rebound tenderness. Musculoskeltal: External fixator in place to RLE with drainage from proximal wound Neuro: AANDOx3. Skin: Warm and dry. INITIAL WORKUP AND DECISION MAKING: Orders Placed This Encounter CBC + DIFF COMP METABOLIC PANEL LACTIC ACID,POC(AK) Addeundum: Ortho came to see patient in triage room; wound culture obtained. Stated ok for d/c from their standpoint with po antibiotics; do not feel knee/leg is source of +blood cultures; given +blood cultures will likely require admission SIGNATURE: Jaci Suarez PA-C [facility] XR KNEE 2V AP/LAT RTon 06-28 XR KNEE 2V AP/LAT RT * * *Final Report* * * DATE OF EXAM: Jun 28 2024 4:03PM AKX [id number] - XR KNEE 2V AP/LAT RT / PROCEDURE REASON: Post Operative Assessment * * * * Physician Interpretation * * * * XR KNEE 2V AP/LAT RT HISTORY: 64 years old Clinical information: Post Operative Assessment POST OPERATIVE ASSESSMENT TECHNIQUE: Images: XR KNEE 2V AP/LAT RT Comparison: 06/03/2024. RESULT/ impression: Unchanged appearance of right knee replacement and internal fixation hardware proximal right tibia. Previously noted nondisplaced fracture proximal tibia is less apparent than the prior exam. Unchanged alignment of the fracture components Digital Marketing Manager: PSCB Transcribe Date/Time: Jun 28 2024 4:15P Dictated by : DUANE KRISHNAN MD This examination was interpreted and the report reviewed and electronically signed by: DUANE KRISHNAN MD on Jun 28 2024 4:16PM EST [id number] Normal [facility] Urine Cultureon 06-27-2024 URC Klebsiella pneumonia e sp pneum [place] Count >100,000 Klebsiella pneumoniae sp pneum: REACTION Amikacin Islt MANUEL 2 Ampicillin Islt MANUEL >=32 R Ampicillin+Sulbac Islt MANUEL >=32 R Cefepime Islt MANUEL 0.5 S Doxycycline Islt MANUEL 4 S Eravacycline Islt MANUEL 0.25 S cefTRIAXone Islt MANUEL 4 R Ciprofloxacin Islt MANUEL >=4 R B-Lactamase Extended Susc Islt NEG Gentamicin Islt MANUEL 8 R Imipenem Islt MANUEL <=0.25 S levoFLOXacin Islt MANUEL 4 R Meropenem Islt MANUEL <=0.25 S Nitrofurantoin Islt MANUEL 64 I Pip+Tazo Islt MANUEL 32 R Tobramycin Islt MANUEL 8 R TMP SMX Islt MANUEL >=320 R Minocycline Islt MANUEL 4 S Normal [facility] Comment on above: Performed By: #### L 500.4050, L100.0100 #### [facility] [address] [place], [address] BC GPC IDon 06-26-2024 BC GPC ID Blood cultures x2, f rom two different sites Copy of report sent to Infection Control Printer [id number] 06/26/24 1244 BLUCAS. Enterococcus sp. Not Detected Listeria spp Not Detected NAAT METHOD Testing was performed using nucleic acid amplification Staphylococcus sp. A DETECTED A Streptococcus spp. Not Detected mecA A mecA Resistance Marker Detected A Mario/vanB Not Detected Meth. resistant Staph. aureus mecA A mecA Resistance Marker Detected A Normal [facility] Comment on above: Performed By: #### M 100.636, M200.1000 #### [facility] [address] [place], [address] 12 Lead EKGon 06-24-2024 12 Lead EKG [facility] Cardiovascular Services [address] [place] [address] 12 Lead EKG 06/24/24 1411 MR#: [id number] Acct: [id number] Name: ZACKERY NUNEZ Rep #: [id number] : 1960 64 From: Mati Magallon MD Attending Dr: Status: DEP ER Ordering Dr: Rafael Martines DO Date: 4 Location: ED Sex: F C Admitted: Test Reason : CP Blood Pressure : */* mmHG Vent. Rate : 81 BPM Atrial Rate : 81 BPM P-R Int : 164 ms QRS Dur : 74 ms QT Int : 402 ms P-R-T Axes : 57 57 69 degrees QTcB Int : 466 ms Normal sinus rhythm Normal ECG Confirmed by SHERITA SARGENT, MATI ([id number]), script editor JACI VAUGHN ([id number]) on 06/25/2024 8:00:32 AM Referred By: Confirmed By: MATI MAGALLON MD 06/25/24 0800 Date Mati Magallon MD CC: Dr. Rafael Martines, DO; Dr. Mikayla [place] MD Signed Normal [facility] Absolute neutrophil countOrd ered By: Rafael Martines on 06-24-2024 Neutrophils (Bld) [#/Vol] 8.3 10*3/uL High 2.0-7.7 [facility] BNP (brain natriuretic pepti de measurement)Ordered By: Rafael Martines on 06-24-2024 Natriuretic peptide B (Bld) [Mass/Vol] 48.0 pg/mL 0-100 [facility] BNP,B-Type NATRIURETIC PEPTI Mati 06-24-2024 Natriuretic peptide B (Bld) [Mass/Vol] 48.0 pg/mL Normal 0-100 [facility] Comment on above: Performed By: #### M 100.636, M200.1000 #### [facility] [address] [facility] [address] [place], [place], [id number] Basic Metabolic Profile (BMP )on 06-24-2024 BUN/CRE 12.3 RATIO Normal 10-20 [facility] Comment on above: Order Comment: 1 Y Performed By: #### L 501.5401, L503.6620, L300.4310, L300.8000, L500.2500, L503.6005, L300.3900, L100.0100 #### [facility] [address] [place], [address] CA,Total 8.7 mg/dL Normal 8.5-10.1 [facility] Comment on above: Order Comment: 1 Y Performed By: #### L 501.5425, L503.6620, L300.4310, L300.8000, L500.2500, L503.6005, L300.3900, L100.0100 #### [facility] [address] [place], [address] Chloride [Moles/Vol] 99 mmol/L Normal 98-107 [facility] Comment on above: Order Comment: 1 Y Performed By: #### L 501.5425, L503.6620, L300.4310, L300.8000, L500.2500, L503.6005, L300.3900, L100.0100 #### [facility] [address] [place], [address] CO2 [Moles/Vol] 26.0 mmol/L Normal 21.0-32.0 [facility] Comment on above: Order Comment: 1 Y Performed By: #### L 501.5425, L503.6620, L300.4310, L300.8000, L500.2500, L503.6005, L300.3900, L100.0100 #### [facility] [address] [place], [address] Creatinine [Mass/Vol] 0.81 mg/dL Normal 0.55-1.02 [facility] Comment on above: Order Comment: 1 Y Result Comment: The validity of the calculated GFR GFRAA in patients over 70 years has not been determined. Clinical correlation is essential. Performed By: #### L 501.5425, L503.6620, L300.4310, L300.8000, L500.2500, L503.6005, L300.3900, L100.0100 #### [facility] [address] [place], [address] ECRCL 76.83 ml/min Normal [facility] Comment on above: Order Comment: 1 Y Performed By: #### L 501.5425, L503.6620, L300.4310, L300.8000, L500.2500, L503.6005, L300.3900, L100.0100 #### [facility] [address] [place], [address] (058) EST GFR - AA 91 mL/min Normal >60 [facility] Comment on above: Order Comment: 1 Y Result Comment: Afri can [place] GFR Calc Performed By: #### L 501.5425, L503.6620, L300.4310, L300.8000, L500.2500, L503.6005, L300.3900, L100.0100 #### [facility] [address] [place], [address] GAP 9 Normal 5-15 [facility] Comment on above: Order Comment: 1 Y Performed By: #### L 501.5425, L503.6620, L300.4310, L300.8000, L500.2500, L503.6005, L300.3900, L100.0100 #### [facility] [address] [place], [place], [phone] (717) GFR/1.73 sq M.predicted among non-blacks MDRD (S/P/Bld) [Vol rate/Area] 75 mL/min/{1.73_m2} Normal >60 [facility] Comment on above: Order Comment: 1 Y Result Comment: Non- GFR Calc Performed By: #### L 501.5425, L503.6620, L300.4310, L300.8000, L500.2500, L503.6005, L300.3900, L100.0100 #### [facility] [address] [place], [address] Glucose [Mass/Vol] 104 mg/dL Normal 74-106 [facility] Comment on above: Order Comment: 1 Y Result Comment: Fast ing Glucose result from 100 to 125 mg/dL suggests IMPAIRED HOMEOSTASIS per A.D.A. criteria. Performed By: #### L 501.5425, L503.6620, L300.4310, L300.8000, L500.2500, L503.6005, L300.3900, L100.0100 #### [facility] [address] [place], [address] Potassium [Moles/Vol] 3.5 mmol/L Normal 3.5-5.1 [facility] Comment on above: Order Comment: 1 Y Performed By: #### L 501.5425, L503.6620, L300.4310, L300.8000, L500.2500, L503.6005, L300.3900, L100.0100 #### [facility] [address] [place], [place], [phone] (441) Sodium [Moles/Vol] 133 mmol/L Low 136-145 [facility] Comment on above: Order Comment: 1 Y Performed By: #### L 501.5425, L503.6620, L300.4310, L300.8000, L500.2500, L503.6005, L300.3900, L100.0100 #### [facility] [address] [place], [place], [phone] (182) Urea nitrogen [Mass/Vol] 10 mg/dL Normal 7-18 [facility] Comment on above: Order Comment: 1 Y Performed By: #### L 501.5425, L503.6620, L300.4310, L300.8000, L500.2500, L503.6005, L300.3900, L100.0100 #### [facility] [address] [place], [address] Basophil percentageOrdered B y: Rafael Martines on 06-24-2024 Basophils/100 WBC (Bld) 0.3 % 0-1 [facility] Bilirubin Test strip Ql (U)O rdered By: Rafael Martines on 06-24-2024 Bilirubin Ql (U) Negative Negative [facility] Blood cultureOrdered By: Miguel A Martines on 06-24-2024 Bacteria identified Cx Nom (Bld) No growth in 5 days. [facility] Bacteria identified Cx Nom (Bld) Meth. resistant Staph. aureus Abnormal [facility] Blood urea nitrogen (BUN)/cr eatinine ratioOrdered By: Rafael Martines on 06-24-2024 Urea nitrogen/Creatinine [Mass ratio] 12.3 mg/mg 10-20 [facility] CBC W/Diff, Automatedon 12--2023 Absolute Lymph 2.02 X10 3/uL Normal 0.83-4.51 [facility] Comment on above: Performed By: #### L 501.5425, L503.6620, L300.4310, L300.8000, L500.2500, L503.6005, L300.3900, L100.0100 #### [facility] [address] [place], [address] Absolute Neut 8.3 X10 3/uL High 2.0-7.7 [facility] Comment on above: Performed By: #### L 501.5425, L503.6620, L300.4310, L300.8000, L500.2500, L503.6005, L300.3900, L100.0100 #### [facility] [address] [place], [address] Basophils/100 WBC (Bld) 0.3 % Normal 0-1 [facility] Comment on above: Performed By: #### L 501.5425, L503.6620, L300.4310, L300.8000, L500.2500, L503.6005, L300.3900, L100.0100 #### [facility] [address] [place], [address] Eosinophils/100 WBC (Bld) 0.6 % Normal 0-5 [facility] Comment on above: Performed By: #### L 501.5425, L503.6620, L300.4310, L300.8000, L500.2500, L503.6005, L300.3900, L100.0100 #### [facility] [address] [place], [address] Erythrocyte distribution width (RBC) [Ratio] 14.5 % Normal 11.6-14.6 [facility] Comment on above: Performed By: #### L 501.5425, L503.6620, L300.4310, L300.8000, L500.2500, L503.6005, L300.3900, L100.0100 #### [facility] [address] [place], [address] Hematocrit (Bld) [Volume fraction] 32.2 % Low 37-47 [facility] Comment on above: Performed By: #### L 501.5425, L503.6620, L300.4310, L300.8000, L500.2500, L503.6005, L300.3900, L100.0100 #### [facility] [address] [facility] [place], [address] Hemoglobin (Bld) [Mass/Vol] 10.1 g/dL Low 12.0-15.0 [facility] Comment on above: Performed By: #### L 501.5425, L503.6620, L300.4310, L300.8000, L500.2500, L503.6005, L300.3900, L100.0100 #### [facility] [address] [place], [address] IG% 0.400 Normal 0.0-0.9 [facility] Comment on above: Result Comment: IG% - Immature Granulocytes (promyelocytes, myelocytes and metamyelocytes) > 1% indicates that a LEFT SHIFT is Present. Performed By: #### L 501.5425, L503.6620, L300.4310, L300.8000, L500.2500, L503.6005, L300.3900, L100.0100 #### [facility] [address], [address] Lymphocytes/100 WBC (Bld) 17.6 % Low 19-41 [facility] Comment on above: Performed By: #### L 501.5425, L503.6620, L300.4310, L300.8000, L500.2500, L503.6005, L300.3900, L100.0100 #### [facility] [address] [place], [address] MCH (RBC) [Entitic mass] 26.2 pg Low 27.0-32.0 [facility] Comment on above: Performed By: #### L 501.5425, L503.6620, L300.4310, L300.8000, L500.2500, L503.6005, L300.3900, L100.0100 #### [facility] [address] [place], [address] MCHC (RBC) [Mass/Vol] 31.4 g/dL Low 32-36 [facility] Comment on above: Performed By: #### L 501.5425, L503.6620, L300.4310, L300.8000, L500.2500, L503.6005, L300.3900, L100.0100 #### [facility] [address] [place], [address] MCV (RBC) [Entitic vol] 83.6 fL Normal 81-99 [facility] Comment on above: Performed By: #### L 501.5425, L503.6620, L300.4310, L300.8000, L500.2500, L503.6005, L300.3900, L100.0100 #### [facility] [address] [place], [address] Monocytes/100 WBC (Bld) 9.1 % Normal 0-10 [facility] Comment on above: Performed By: #### L 501.5425, L503.6620, L300.4310, L300.8000, L500.2500, L503.6005, L300.3900, L100.0100 #### [facility] [address] [place], [address] Neutrophils/100 WBC (Bld) 72.0 % High 47-70 [facility] Comment on above: Performed By: #### L 501.5425, L503.6620, L300.4310, L300.8000, L500.2500, L503.6005, L300.3900, L100.0100 #### [facility] [address] [place], [address] Nucleated RBC (Bld) [#/Vol] 0 10*3/uL Normal 0-5 [facility] Comment on above: Performed By: #### L 501.5425, L503.6620, L300.4310, L300.8000, L500.2500, L503.6005, L300.3900, L100.0100 #### [facility] [address] [place], [address] Platelet mean volume (Bld) [Entitic vol] 10.7 fL Normal 6.2-12.0 [facility] Comment on above: Performed By: #### L 501.5425, L503.6620, L300.4310, L300.8000, L500.2500, L503.6005, L300.3900, L100.0100 #### [facility] [address] [place], [address] Platelets (Bld) [#/Vol] 462 10*3/uL High 150-450 [facility] Comment on above: Performed By: #### L 501.5425, L503.6620, L300.4310, L300.8000, L500.2500, L503.6005, L300.3900, L100.0100 #### [facility] [address] [place], [place], [id number] RBC (Bld) [#/Vol] 3.85 10*6/uL Low 4.2-5.4 [facility] Comment on above: Performed By: #### L 501.5425, L503.6620, L300.4310, L300.8000, L500.2500, L503.6005, L300.3900, L100.0100 #### [facility] [address] [place], [place], [id number] RDW SD 44.1 fl High 35.1-43.9 [facility] Comment on above: Performed By: #### L 501.5425, L503.6620, L300.4310, L300.8000, L500.2500, L503.6005, L300.3900, L100.0100 #### [facility] [address] [place], [place], [id number] WBC (Bld) [#/Vol] 11.5 10*3/uL High 4.4-11.0 [facility] Comment on above: Performed By: #### L 501.5425, L503.6620, L300.4310, L300.8000, L500.2500, L503.6005, L300.3900, L100.0100 #### [facility] [address] [place], [place], [phone] CNPCarolyn 06-24-2024 EVEN Telephone (FAMPWS) -- ZACKERY NUNEZ ([id number]) 1960 F Date Time Provider Department 06/24/24 MIKAYLA STRANGE FAMPWS During your visit today, we recorded the following information about you: Mikayla Strange MD 06/24/2024 8:40 AM Signed Urine over weekend looked infected and was referred to the ER. Did she go?. How doing? Bre Castillo MA 06/24/2024 9:42 AM Signed Pt did not going to ER. She stated she had urine specimen dropped off on 06/21/24. See results. She states she has is unable to ambulate. Has burning and stinging with urination. ELADIO Guillen William J, MD 06/24/2024 9:57 AM Signed Ua was done not culture and a provider referred her to er based on that. If she is truly unable to urinate, to er Bre Castillo MA 06/24/2024 10:17 AM Signed Pt notified. Bre Castillo MA Allergies As of Date: 06/24/2024 Noted Allergy Reaction COMPAZINE (PROCHLORPERAZINE EDISY*07/14/2014 14 - Other: See Comments Comments: Pt reports it makes more nausea VAIBHAV (FEXOFENADINE HCL) 07/14/2014 5 - Intolerance AUGMENTIN (AMOXICILLIN-POT CLAVUL*07/14/2014 5 - Intolerance BENTYL (DICYCLOMINE HCL) 06/24/2015 8 - GI Upset BIAXIN (CLARITHROMYCIN) 07/14/2014 5 - Intolerance CECLOR (CEFACLOR) 07/14/2014 5 - Intolerance CELEBREX (CELECOXIB) 07/14/2014 5 - Intolerance COLESTIPOL 11/24/2014 14 - Other: See Comments Comments: shaky/headaches/increased nausea DOXEPIN 07/14/2014 5 - Intolerance FENTANYL 07/14/2014 5 - Intolerance Comments: Pt doesn't remember the reaction HUMIRA (ADALIMUMAB) 07/14/2014 5 - Intolerance LEVAQUIN (LEVOFLOXACIN) 07/14/2014 5 - Intolerance METFORMIN 11/21/2023 8 - GI Upset Comments: Gi intolerance PLAQUENIL (HYDROXYCHLOROQUINE SUL*07/14/2014 5 - Intolerance SELDANE 07/14/2014 5 - Intolerance SEPTRA (SULFAMETHOXAZOLE-TRIMETHO *07/14/2014 5 - Intolerance SULFA (SULFONAMIDE ANTIBIOTICS) 07/14/2014 5 - Intolerance VIBRAMYCIN (DOXYCYCLINE CALCIUM) 07/14/2014 5 - Intolerance VICODIN (HYDROCODONE-ACETAMINOPHE* 07/14/2014 5 - Intolerance Date Reviewed: 06/09/2024 Reviewed by: Sydni Waggoner MD - Fully Assessed Reason for Visit: Results [95] Prescriptions as of 06/24/2024 - buprenorphine (BUTRANS) 20 mcg/hour transdermal patch Apply 1 Patch as directed one time a week for 7 days. Last APPLIED 05/08 - acetaminophen (TYLENOL) 325 mg tablet Take 2 tablets by mouth every 6 hours as needed for pain. - gabapentin (NEURONTIN) 300 mg capsule Take 3 capsules by mouth daily at bedtime for 30 days. - gabapentin (NEURONTIN) 300 mg capsule Take 3 capsules by mouth once daily for 30 days. Daily at noon - polyethylene glycol 3350 17 gram packet Take 1 Packet by mouth once daily as needed. Dissolve dose in 4 - 8 ounces of liquid and take as directed. - lisinopril (ZESTRIL) 10 mg tablet Take 1 tablet by mouth once daily. - estradiol (ESTRACE) 0.01 % (0.1 mg/gram) vaginal cream Use 3 g vaginally once daily. - atorvastatin (LIPITOR) 10 mg tablet Take 1 tablet by mouth once daily. - busPIRone HCl 30 mg tablet Take 1 tablet by mouth two times a day. - omeprazole (PRILOSEC) 40 mg capsule Take 40 mg by mouth once daily. - hyoscyamine sublingual (LEVSIN/SL) 0.125 mg Dissolve 1 tablet under the tongue every 4 hours as needed. - citalopram (CELEXA) 40 mg tablet Take 1 tablet by mouth once daily. - promethazine (PHENERGAN) 25 mg tablet Take 1 tablet by mouth every 6 hours as needed. - SUMAtriptan (IMITREX) 50 mg tablet Take 1 tablet (50 mg) by mouth as needed. - oxyCODONE-acetaminophen (PERCOCET) 5-325 mg tablet 1 tablet three times daily as needed. - upadacitinib (RINVOQ ORAL) Take 15 mg by mouth. - amitriptyline (ELAVIL) 10 mg tablet Take 1 tablet by mouth daily at bedtime. - Cetirizine 10 mg cap Take by mouth. - CALCIUM POLYCARBOPHIL (FIBER LAXATIVE ORAL) Take by mouth. - multivitamin tablet Take 1 tablet by mouth once daily. - latanoprost (XALATAN) 0.005 % ophthalmic solution 1 Drop daily at bedtime. - docusate sodium (COLACE) 100 mg capsule Take 100 mg by mouth twice daily. 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 Normal [facility] CTA Chest W/WO Contraston CTA Chest W/WO Contrast [facility] Imaging Services [address] [place] [address] CTA Chest W/WO Contrast MR#: [id number] Acct: [id number] Name: ZACKERY NUNEZ ESPINOZA Rep #: [id number] : 1960 F 64 From: Phong Aaron MD PCP: Dr. Mikayla Strange MD Status: REG ER Study: CTA Chest W/WO Contrast Date of Exam: 06/24/24 Exam# [id number] Ordering Dr: Rafael Martines DO [id number] EXAM: CT ANGIOGRAPHY CHEST WITHOUT AND WITH INTRAVENOUS CONTRAST CLINICAL INDICATION: Chest pain, elevated D-dimer TECHNIQUE: Helically acquired angiography images were obtained of the chest without and with intravenous contrast. This CT exam was performed using one or more of the following dose reduction techniques: automated exposure control, adjustment of the mA and/or kV according to patient size, and/or use of iterative reconstruction technique. MIP reconstructed images were created and reviewed. CONTRAST: IV 100mL [id number] COMPARISON: No relevant prior studies available. FINDINGS: PULMONARY ARTERIES: Unremarkable. Normal in caliber. No evidence of pulmonary embolism. AORTA: Unremarkable. Normal in caliber. No evidence of dissection. GREAT VESSELS OF AORTIC ARCH: Unremarkable. Normal in caliber. No evidence of dissection. LUNGS AND PLEURAL SPACES: There is a calcified granuloma in the right lung base. There is some minimal scar or atelectasis in the right middle lobe. No mass. No pleural effusion or thickening. No pneumothorax. HEART: Unremarkable. Heart size is normal. No pericardial effusion. No significant coronary artery calcifications. MEDIASTINUM: Unremarkable. No mediastinal or hilar adenopathy. Esophagus is unremarkable. No hiatal hernia. THYROID: Unremarkable. No thyroid lesions. BONES/JOINTS: Unremarkable. No suspicious lytic or blastic abnormality. CT/CTA Chest W/WO Contrast IMPRESSION: No evidence of pulmonary embolus. Electronically Signed: Phong Aaron MD at 18:01 EST , CC: Dr. Rafael Martines DO; Dr. Mikayla Strange MD Digital Marketing Manager: Signed Normal [facility] Carbon dioxide measurementOr dered By: Rafael Martines on 06-24-2024 CO2 [Moles/Vol] 26.0 mmol/L 21.0-32.0 [facility] Chest PA and Lateralon 06-24 Chest PA and Lateral [facility] Imaging Services [address] [place] [address] Chest PA and Lateral MR#: [id number] Acct: [id number] Name: ZACKERY NUNEZ Rep #: [id number] : 1960 F 64 From: Phong Aaron MD PCP: Dr. Mikayla Strange MD Status: REG ER Study: Chest PA and Lateral Date of Exam: 06/24/24 Exam# [id number] Ordering Dr: Rafael Martines DO [id number] EXAM: XR CHEST, 2 VIEWS CLINICAL INDICATION: CP TECHNIQUE: Frontal and lateral views of the chest. COMPARISON: No relevant prior studies available. FINDINGS: LUNGS AND PLEURAL SPACES: Unremarkable. No consolidation or edema. No pneumothorax. No effusion. HEART: Unremarkable. Cardiac silhouette not enlarged. MEDIASTINUM: Central airways and mediastinal contour are unremarkable. BONES/JOINTS: Unremarkable. No acute fracture. SOFT TISSUES: Unremarkable. RAD/Chest PA and Lateral IMPRESSION: No radiographic evidence of acute cardiopulmonary disease. Electronically Signed: Phong Aaron MD at 17:59 EST , CC: Dr. Rafael Martines DO; Dr. Mikayla Strange MD Digital Marketing Manager: Signed Normal [facility] Chloride measurementOrdered By: Rafael Martines on 06-24-2024 Chloride [Moles/Vol] 99 mmol/L 98-107 [facility] D-Dimer Quantitative (DVT/PE )on 06-24-2024 D-DIMER QUANT 1.14 FEU/ug/m Invalid Interpretation Code 0.27-0.49 [facility] Comment on above: Result Comment: CRIT ICAL VALUE CALLED TO ELIZABETH SKELTON GLASS TUBE BENDER 06/24/24 1700 Sydni Luna. RESULTS READ BACK BY SAME. D-Dimer ELEVATED (>0.49): Additional studies and clinical assessments are indicated to conclude diagnosis of: Deep Vein Thrombosis (DVT) or Pulmonary Embolism (PE) Performed By: #### M 100.636, M200.1000 #### [facility] Laboratory [address] [place], [address] D-dimer measurement for deep venous thrombosisOrdered By: Rafael Martines on 06-24-2024 D-Dimer Quantitative (PE/DVT) 1.14 FEU/ug/m High 0.27-0.49 [facility] Comment on above: CRITICAL VALUE PLUNKETT D TO ELIZABETH SKELTON RN ER06/24/24 1700 Sydni Luna.RESULTS READ BACK BY SAME. D-Dimer ELEVATED (>0.49): Additional studies and clinicalassessments are indicated to conclude diagnosis of:Deep Vein Thrombosis (DVT) or Pulmonary Embolism (PE) Emergency Department Summary on 06-24-2024 Emergency Department Summary [facility] Medical Records Department [address] [place] [address] Emergency Department Summary 06/24/24 MR#: [id number] Acct: [id number] Name: ZACKERY NUNEZ ESPINOZA Rep #: [id number] : 1960 64 From: Rafael Martines DO PCP: Dr. Mikayal Strange MD Status:DEP ER Location: ED HPI HPI - Female History of Present Illness Chief Complaint: Complaint Narrative Narrative: Chief complaint and HPI: Dysuria, fever, multiple complaints. 64-year-old female with past medical history of fibromyalgia, HLD, HTN, DM2 presents for evaluation of dysuria and multiple other complaints. Patient states she suffered a fall in April and broke her prosthetic right knee. She had surgery on 05/[address] Waggoner who placed an Ex-Fx device. Patient states she mostly presents today due for dysuria and fever. She states her dysuria developed about 4 to 5 days ago. She has history of UTIs. She denies any abdominal pain or back pain. Denies any hematuria. Patient states 3 days ago she started to develop increased pain in her right lower extremity. She states that she has also noticed some purulent material around the proximal portion of her Ex-Fx but that this has been present since it was placed. She states that this area is more tender. Patient endorses the development of fevers that started yesterday. She also endorses intermittent chest pain for the past several months. She denies any URI symptoms, shortness of breath, cough, nausea, vomiting, diarrhea. Review of systems: See HPI Medications: As listed on the chart Allergies: As listed on the chart PFSH: Per chart Vital signs: As listed on the chart. Reviewed. Physical exam: Gen: A O x3, NAD Head: Normocephalic, atraumatic Eyes: No sclera icterus, conjunctiva clear ENT: Moist mucous membranes Neck: Trachea midline, No JVD CV: RRR, no murmurs, no peripheral edema Resp: Lungs CTA BL, no w/r/c GI: Abd soft, non-distended, non-tender, no r/r/g : No CVA tenderness Musc: Full ROM of all extremities except for the right lower extremity secondary to Ex-Fix. Right lower extremity is slightly more swollen compared to the left. It is tender to palpation diffusely. There is some slight erythema around the metal rods of the proximal Ex-Fix compared to the inferior portion. Patient is tender at this area. There is slight purulence/fibrotic tissue around the rods-patient states that this has been present for a month. No crepitus. No induration or fluctuance. No bullae or rash. Skin: Warm, dry Neuro: Alert, oriented, grossly intact, sensation intact Psych: Cooperative, appropriate mood and affect [facility] Medical History Wears glasses Post-menopausal Marijuana use History of steroid therapy Diabetes Walker as ambulation aid Low iron High cholesterol Back pain Injury of head and neck Migraine headache Heartburn Gastric reflux Non-smoker Leg cramps History of pain when walking History of edema History of stress test History of rheumatic fever Chest pain Bulging discs Glaucoma IBS (irritable bowel syndrome) Fibromyalgia Rheumatoid arthritis Home Medications ???Medication ???Instructions ???Recorded ???Last Taken ???Type atorvastatin 10 mg tablet 10 mg PO QHS cholestorol 05/14/14 08/25/22 History citalopram 40 mg tablet 40 mg PO DAILY anxiety 05/14/14 08/25/22 History cyclobenzaprine 10 mg tablet 10 mg PO TID Spasms 05/14/14 08/25/22 History latanoprost 0.005 % eye drops 1 drp EACH EYE QHS glaucoma 05/14/14 08/25/22 History prednisone 10 mg tablet 10 mg PO PRN PRN flare up 05/14/14 08/25/22 History sumatriptan succinate 50 mg tablet 50 mg PO .X1 PRN PRN Headache 05/14/14 08/25/22 History promethazine 25 mg rectal 25 mg PO PRN PRN Nausea 12/17/14 08/25/22 History suppository hyoscyamine sulfate 0.125 mg 0.125 mg SL Q4H PRN PRN Nausea 04/20/16 08/25/22 History sublingual tablet oxycodone-acetaminophen 7.5 mg-325 1 tab PO TID pain 04/20/16 08/25/22 History mg tablet buspirone 30 mg tablet 30 mg PO BID anxiety 12/20/17 08/25/22 History amitriptyline 10 mg tablet 10 mg PO QHS 03/25/20 08/25/22 History gabapentin 300 mg capsule 900 mg PO DAILY 03/25/20 08/25/22 History omeprazole 20 mg capsule,delayed 40 mg PO DAILY 03/25/20 08/25/22 History release upadacitinib 15 mg tablet,extended 15 mg PO DAILY 03/25/20 08/25/22 History release 24 hr (Rinvoq) lisinopril 10 mg tablet 10 mg PO DAILY 08/18/22 08/26/22 History metformin 500 mg tablet,extended 600 mg PO QHS 08/18/22 08/25/22 History release 24 hr buprenorphine 20 mcg/hour weekly 1 patch topical QWEEK 05/01/24 Unknown History transdermal patch cephalexin 500 mg capsule 500 mg PO BID 10 days #20 caps 06/24/24 Unknown Rx ondansetron 4 mg disintegrating 4 mg PO (more content not included)... Normal [facility] Eosinophil percentageOrdered By: Rafael Martines on 06-24-2024 Eosinophils/100 WBC (Bld) 0.6 % 0-5 [facility] Epithelial cells.squamous LM Ql (Urine sed)Ordered By: Rafael Martines on 06-24-2024 Epithelial cells.squamous LM.HPF (Urine sed) [#/Area] 0 /[HPF] 5-10 [facility] Erythrocyte distribution wid th ratioOrdered By: Rafael Martines on 06-24-2024 Erythrocyte distribution width (RBC) [Ratio] 14.5 % 11.6-14.6 [facility] Erythrocyte distribution wid th standard deviationOrdered By: [place] Sally Cid on 06-24-2024 Erythrocyte distribution width (RBC) [Entitic vol] 44.1 fL High 35.1-43.9 [facility] Estimated glomerular filtrat ion rate (GFR) AmericanOrdered By: Rafael Martines on 06-24-2024 Estimated GFR (MDRD) Amer 91 mL/min >60 [facility] Comment on above: GFR Calc Estimation of creatinine asya aranceOrdered By: Rafael Martines on 06-24-2024 Estimated Creatinine Clearance Calc 76.83 ml/min [facility] Femur Min 2 Viewson 06-24-20 24 Femur Min 2 Views [facility] Imaging Services [address] [place] [address] Femur Min 2 Views MR#: [id number] Acct: [id number] Name: ZACKERY NUNEZ ESPINOZA Rep #: [id number] : 1960 F 64 From: Phong Aaron MD PCP: Dr. Mikayla Strange MD Status: REG ER Study: Femur Min 2 Views Date of Exam: 06/24/24 Exam# [id number] Ordering Dr: Rafael Martines DO [id number] EXAM: XR RIGHT FEMUR, 2 VIEWS CLINICAL INDICATION: pain TECHNIQUE: Frontal and lateral views of the right femur. COMPARISON: No relevant prior studies available. FINDINGS: BONES/JOINTS: There is a total knee prosthesis. There is hardware across a fracture the proximal tibia. There are external fixation pins seen within the distal femur. Preservation of the joint space. No sclerotic or destructive changes observed. SOFT TISSUES: Unremarkable. No soft tissue swelling or gas. No radiopaque foreign body. RAD/Femur Min 2 Views IMPRESSION: External fixation pins in the distal femur. There is a knee prosthesis in place. There is hardware across a fracture of the proximal tibia. Electronically Signed: Phong Aaron MD at 17:56 EST , CC: Dr. Raafel Martines, DO; Dr. Mikayla Strange MD Digital Marketing Manager: Signed Normal [facility] Glomerular filtration rate ( GFR) estimationOrdered By: Rafael Martines on 06-24-2024 Estimated GFR (MDRD) Non-Af Amer 75 mL/min >60 [facility] Comment on above: Non- GFR Calc Glucose Ql (U)Ordered By: Balwinder Martines on 06-24-2024 Urine Glucose (UA) Normal mg/dl Normal [facility] Glucose measurementOrdered B y: Rafael Martines on 06-24-2024 Glucose [Mass/Vol] 104 mg/dL 74-106 [facility] Comment on above: Fasting Glucose resu lt from 100 to 125 mg/dL suggests IMPAIRED HOMEOSTASIS per A.D.A. criteria. Hematocrit Auto (Bld) [Volum e fraction]Ordered By: Rafael Martines on 06-24-2024 Hematocrit (Bld) [Volume fraction] 32.2 % Low 37-47 [facility] Hemoglobin measurementOrdere d By: Rafael Martines on 06-24-2024 Hemoglobin (Bld) [Mass/Vol] 10.1 g/dL Low 12.0-15.0 [facility] Immature granulocytes/100 WB C Auto (Bld)Ordered By: Rafael Martines on 06-24-2024 Immature granulocytes/100 WBC (Bld) 0.400 % 0.0-0.9 [facility] Comment on above: IG% - Immature Granu locytes (promyelocytes, myelocytes and metamyelocytes) > 1% indicates that a LEFT SHIFT is Present. International normalized rat io (INR) calculationOrdered By: Rafael Martines on 06-24-2024 INR Coag (Bld) [Relative time] 1.2 {INR} [facility] Ketones Test strip Ql (U)Ord ered By: Rafael Martines on 06-24-2024 Ketones Ql (U) Negative Negative [facility] L501.4020on 06-24-2024 TROPONIN-I HS 6 pg/mL Normal 3.0-54.0 [facility] Comment on above: Result Comment: Plea se Note: New Test Units and Gender Specific Reference Ranges. For more information see Policy Stat Procedure [place] High Sensitivity Troponin (TNIH) and attachments. Performed By: #### L 500.4050, L100.0100 #### [facility] Laboratory [address] [place], [place], [id number] L501.5425on 06-24-2024 TROPONIN-I HS 4 pg/mL Normal 3.0-54.0 [facility] Comment on above: Order Comment: 1 Y Result Comment: Plea se Note: New Test Units and Gender Specific Reference Ranges. For more information see Policy Stat Procedure [place] High Sensitivity Troponin (TNIH) and attachments. Performed By: #### L 501.5425, L503.6620, L300.4310, L300.8000, L500.2500, L503.6005, L300.3900, L100.0100 #### [facility] [address] [place], [place], [id number] [phone] Lactic Acidon 06-24-2024 Lactate [Moles/Vol] 0.9 mmol/L Normal 0.4-1.9 [facility] Comment on above: Order Comment: Y Performed By: #### L 501.5425, L503.6620, L300.4310, L300.8000, L500.2500, L503.6005, L300.3900, L100.0100 #### [facility] [address] [place], [place], [id number] Lactic acid measurementOrder ed By: Rafael Martines on 06-24-2024 Lactate [Moles/Vol] 0.9 mmol/L 0.4-2.0 [facility] Lymphocytes Auto (Unsp spec) [#/Vol]Ordered By: Rafael Martines on 06-24-2024 Lymphocytes (Bld) [#/Vol] 2.02 10*3/uL 0.83-4.51 [facility] Lymphocytes/100 WBC Auto (Un sp spec)Ordered By: Rafael Martines on 06-24-2024 Lymphocytes/100 WBC (Bld) 17.6 % Low 19-41 [facility] MCV (mean corpuscular volume ) determinationOrdered By: Rafael Martines on 06-24-2024 MCV (RBC) [Entitic vol] 83.6 fL 81-99 [facility] Mean corpuscular hemoglobin (MCH) determinationOrdered By: Rafael Martines on 06-24-2024 MCH (RBC) [Entitic mass] 26.2 pg Low 27.0-32.0 [facility] Mean corpuscular hemoglobin concentration (MCHC) determinationOrdered By: Rafael Martines on 06-24-2024 MCHC (RBC) [Mass/Vol] 31.4 g/dL Low 32-36 [facility] Mean platelet volume determi nationOrdered By: Rafael Martines on 06-24-2024 Platelet mean volume (Bld) [Entitic vol] 10.7 fL 6.2-12.0 [facility] Microorganism identified Cx Nom (Unsp spec)Ordered By: Rafael Martines on 06-24-2024 Bacteria Detection (PCR) Meth. resistant Staph. aureus Abnormal [facility] Microscopic analysis of urin e for red blood cells (RBC)Ordered By: Rafael Martines on 06-24-2024 Urine RBC 0 SEEN /hpf 0-5 [facility] Monocyte percentageOrdered B y: Rafael Martines on 06-24-2024 Monocytes/100 WBC (Bld) 9.1 % 0-10 [facility] Mucus LM Ql (Urine sed)Order ed By: Rafael Martines on 06-24-2024 Mucus Ql (Urine sed) 0 SEEN /hpf [facility] Neutrophil percentageOrdered By: Rafale Martines on 06-24-2024 Neutrophils/100 WBC (Bld) 72.0 % High 47-70 [facility] Nitrite Test strip Ql (U)Ord ered By: Rafael Martines on 06-24-2024 Nitrite Ql (U) Negative Negative [facility] Nucleated red blood cell per centageOrdered By: Rafael Martines on 06-24-2024 Nucleated RBC/100 WBC (Bld) [Ratio] 0 % 0-5 [facility] Partial Thromboplast Timeon 06-24-2024 aPTT Coag (Bld) [Time] 47.3 s High 24.1-36.2 [facility] Comment on above: Performed By: #### L 501.5425, L503.6620, L300.4310, L300.8000, L500.2500, L503.6005, L300.3900, L100.0100 #### [facility] Laboratory [address] [place] [address], [address] Platelet countOrdered By: Balwinder Martines on 06-24-2024 Platelets (Bld) [#/Vol] 462 10*3/uL High 150-450 [facility] Potassium measurementOrdered By: Rafael Martines on 06-24-2024 Potassium [Moles/Vol] 3.5 mmol/L 3.5-5.1 [facility] Protein Test strip Ql (U)Ord ered By: Rafael Martines on 06-24-2024 Protein Ql (U) 15 mg/dl High Negative [facility] Prothrombin Time w/INRon INR Coag (PPP) [Relative time] 1.2 {INR} Normal [facility] Comment on above: Performed By: #### L 501.5425, L503.6620, L300.4310, L300.8000, L500.2500, L503.6005, L300.3900, L100.0100 #### [facility] [address] [place], [address] PT Coag (PPP) [Time] 15.5 s High 11.7-14.9 [facility] Comment on above: Performed By: #### L 501.5425, L503.6620, L300.4310, L300.8000, L500.2500, L503.6005, L300.3900, L100.0100 #### [facility] [address] [place], [address] Prothrombin timeOrdered By: Rafael Martines on 06-24-2024 PT Coag (PPP) [Time] 15.5 s High 11.7-14.9 [facility] RBC Auto (Bld) [#/Vol]Ordere d By: Rafael Martines on 06-24-2024 RBC (Bld) [#/Vol] 3.85 10*6/uL Low 4.2-5.4 [facility] Serum anion gap measurementO rdered By: Rafael Martines on 06-24-2024 Anion gap [Moles/Vol] 9 mmol/L 11-07 [facility] Serum or plasma calcium francisco urement (mass/volume)Ordered By: Rafael Cid on 06-24-2024 Calcium [Mass/Vol] 8.7 mg/dL 8.5-10.1 [facility] Serum or plasma creatinine m easurement (mass/volume)Ordered By: Rafael Cid on 06-24-2024 Creatinine [Mass/Vol] 0.81 mg/dL 0.55-1.02 [facility] Comment on above: The validity of the calculated GFR & GFRAA in patients over 70 years has not been determined. Clinical correlation is essential. Serum or plasma urea nitroge n measurement (mass/volume)Ordered By: Rafael Martines on 06-24-2024 Urea nitrogen [Mass/Vol] 10 mg/dL -18 [facility] Sodium levelOrdered By: Chris Martines on 06-24-2024 Sodium [Moles/Vol] 133 mmol/L Low 136-145 [facility] Tibia Fibula 2 Viewson 06-24 Tibia Fibula 2 Views [facility] Imaging Services [address] [place] [address] Tibia Fibula 2 Views MR#: [id number] Acct: [id number] Name: ZACKERY NUNEZ Rep #: [id number] : 1960 F 64 From: Phong Aaron MD PCP: Dr. Mikayla Strange MD Status: REG ER Study: Tibia Fibula 2 Views Date of Exam: 06/24/24 Exam# [id number] Ordering Dr: Rafael Martines DO [id number] EXAM: XR RIGHT TIBIA AND FIBULA, 2 VIEWS CLINICAL INDICATION: pain TECHNIQUE: Frontal and lateral views of the right tibia and fibula. COMPARISON: 05/01/2024 FINDINGS: BONES/JOINTS: There is an orthopedic sideplate and screws across a fracture the proximal tibia. Total knee prosthesis is in place. There are external fixation pins seen within the mid tibia. Preservation of the joint space. No sclerotic or destructive changes observed. SOFT TISSUES: Unremarkable. No soft tissue swelling or gas. No radiopaque foreign body. RAD/Tibia Fibula 2 Views IMPRESSION: 1. ORIF in the proximal tibial fracture. Alignment is anatomic. 2. Stable knee prosthesis. External fixation pins are seen within the tibia. Electronically Signed: Phong Aaron MD at 17:59 EST , CC: Dr. Rafael Martines DO; Dr. Mikayla Strange MD Digital Marketing Manager: Signed Normal [facility] Troponin IOrdered By: Rafael Martines on 06-24-2024 Troponin I High Sensitivity 6 pg/mL 3.0-54.0 [facility] Comment on above: Please Note: New Sherry t Units and Gender Specific Reference Ranges. For more information see Policy Stat Procedure [facility] High Sensitivity Troponin (TNIH) and attachments. Urinalysis, Completeon 06-24 BACTERIA 3+ /hpf Normal None Seen [facility] Comment on above: Order Comment: MORENA TER SPECIMEN Performed By: #### M 100.636, M200.1000 #### [facility] [address] [place], [address] WBC >100 SEEN Normal 0-5 [facility] Comment on above: Order Comment: MORENA TER SPECIMEN Performed By: #### M 100.636, M200.1000 #### [facility] [address] [place], [address] BILIRUBIN URINE Negative Normal Negative [facility] Comment on above: Order Comment: MORENA TER SPECIMEN Performed By: #### M 100.636, M200.1000 #### [facility] [address] [place], [address] Clarity (U) Sl. Cloudy Normal Clear [facility] Comment on above: Order Comment: MORENA TER SPECIMEN Performed By: #### M 100.636, M200.1000 #### [facility] [address] [place], [address] Color (U) Yellow Normal Yellow [facility] Comment on above: Order Comment: MORENA TER SPECIMEN Performed By: #### M 100.636, M200.1000 #### [facility] [address] [place], [address] GLUCOSE, UR Normal Normal Normal [facility] Comment on above: Order Comment: MORENA TER SPECIMEN Performed By: #### M 100.636, M200.1000 #### [facility] [address] [place], [address] KETONE UR Negative Normal Negative [facility] Comment on above: Order Comment: MORENA TER SPECIMEN Performed By: #### M 100.636, M200.1000 #### [facility] [address] [place], [address] LEUK ESTERASE 500 /ul Abnormal Negative [facility] Comment on above: Order Comment: MORENA TER SPECIMEN Performed By: #### M 100.636, M200.1000 #### [facility] [address] [place], [address] Nitrite Ql (U) Negative Normal Negative [facility] Comment on above: Order Comment: MORENA TER SPECIMEN Performed By: #### M 100.636, M200.1000 #### [facility] [address] [place], [address] OCCULT BLOOD-UR 25 /ul Abnormal Negative [facility] Comment on above: Order Comment: MORENA TER SPECIMEN Performed By: #### M 100.636, M200.1000 #### [facility] [address] [place], [address] pH UR 6.5 Normal 5.0 - 8.0 [facility] Comment on above: Order Comment: MORENA TER SPECIMEN Performed By: #### M 100.636, M200.1000 #### [facility] [address] [place], [address] PROT DIPSTX 15 mg/dl Abnormal Negative [facility] Comment on above: Order Comment: MORENA TER SPECIMEN Performed By: #### M 100.636, M200.1000 #### [facility] [address] [place], [address] SP.GR. DIPSTX 1.010 Normal 1.002-1.03 0 [facility] Comment on above: Order Comment: MORENA TER SPECIMEN Performed By: #### M 100.636, M200.1000 #### [facility] [address] [place], [address] UROBILI Normal Normal Normal [facility] Comment on above: Order Comment: MORENA TER SPECIMEN Performed By: #### M 100.636, M200.1000 #### [facility] [address] [place], [address] EPI,SQUAMOUS 0 SEEN Normal 5-10 [facility] Comment on above: Order Comment: MORENA TER SPECIMEN Performed By: #### M 100.636, M200.1000 #### [facility] [address] [place], [address] Mucus Ql (Urine sed) 0 SEEN Normal [facility] Comment on above: Order Comment: MORENA TER SPECIMEN Performed By: #### M 100.636, M200.1000 #### [facility] [address] [place], [address] RBC 0 SEEN Normal 0-5 [facility] Comment on above: Order Comment: MORENA TER SPECIMEN Performed By: #### M 100.636, M200.1000 #### [facility] [address] [place], [address] Urine blood detectionOrdered By: Rafael Martines on 06-24-2024 Urine Occult Blood 25 /ul High Negative [facility] Urine clarityOrdered By: Miguel A Martines on 06-24-2024 Clarity (U) Sl. Cloudy Clear [facility] Urine color determinationOrd ered By: Rafael Martines on 06-24-2024 Color (U) Yellow Yellow [facility] Urine cultureOrdered By: Miguel A Martines on 06-24-2024 Bacteria identified Cx Nom (U) Klebsiella pneumoniae sp pneum Abnormal [facility] Urine leukocyte esterase det ection by dipstickOrdered By: Rafael Martines on 06-24-2024 Leukocyte esterase Test strip Ql (U) 500 /ul High Negative [facility] Urine pHOrdered By: Rafael Crews on 12-30-2024 pH (U) 6.5 [pH] 5.0 - 8.0 [facility] Urine sediment bacteria coun t by microscopy (number/high power field)Ordered By: Rafael Martines on 06-24-2024 Bacteria LM.HPF (Urine sed) [#/Area] 3 /[HPF] None Seen [facility] Urine specific gravity measu rementOrdered By: Rafael Martines on 06-24-2024 Specific gravity (U) [Rel density] 1.010 1.002-1.03 0 [facility] Urobilinogen Ql (U)Ordered B y: Rafael Martines on 06-24-2024 Urine Urobilinogen Normal mg/dl Normal [facility] Venous Duplex US, Unilateral on 06-24-2024 Venous Duplex US, Unilateral [facility] [address] [place] [place] [address] Venous Duplex US, Unilateral 06/24/24 1601 MR#: [id number] Acct: [id number] Name: ZACKREY NUNEZ ESPINOZA Rep #: [id number] : 1960 64 From: Eliel Andujar MD Attending Dr: Status: DEP ER Ordering Dr: Rafael Martines DO Date: 4 Location: ED Sex: F C Admitted: Reason For Study: Right leg pain RIGHT LEFT GSV is normal. CFV is patent and compressible. CFV is compressible, spontaneous, phasic, competent and demonstrates normal augmentation. FV is compressible, spontaneous, phasic, competent and demonstrates normal augmentation. FV distal visualized with color, appears patent, unable to tolerate compression. PopV and T/P Trunk not visualized due to external fixation device. Calf veins visualized in segements due to external fixation device. PTV is compressible. RT PerV is compressible. Procedure This is a venous duplex using B-mode, color flow and spectral Doppler. Exam performed portable in ED. Limited views were obtained. A preliminary report was called and/or faxed to ED. VL/Venous Duplex US, Unilateral Interpretation Summary Deep veins of the right lower extremity are patent and compressible segmentally. There is no evidence of right lower extremity deep vein thrombosis. The right great saphenous vein appears patent and compressible segmentally. Limited study due to external fixation hardware Ordering Physician: Rafael Martines Referring Physician: Mikayla Strange Performed By: Demario Keene, TRENTCS, RVT 06/25/24 1550 Date Eliel Andujar MD CC: Dr. Rafael Martines, DO; Dr. Mikayla Strange MD Date Dictated: 06/24/24 1601 Date Transcribed: 06/25/24 155 Digital Marketing Manager: Signed Normal [facility] White blood cell (WBC) count Ordered By: Rafael Martines on 06-24-2024 WBC (Bld) [#/Vol] 11.5 10*3/uL High 4.4-11.0 [facility] White blood cell countOrdere d By: Rafael Martines on 06-24-2024 Urine WBC >100 SEEN /hpf 0-5 [facility] aPTT Coag (PPP) [Time]Ordere d By: Rafael Martines on 06-24-2024 aPTT Coag (Bld) [Time] 47.3 s High 24.1-36.2 [facility] Urinalysis complete panel (U )on 06-21-2024 BACTERIA UL >9821 High Negative [facility] Comment on above: Order Comment: Speci men Type: URINE SPECIMENOrdering Facility: [facility] Address: [address] [place] [address], [place] [address] Performed By: #### 2 4356-8 ####[facility] LAB[facility] [id number] [place] [address] [place] Bilirubin Ql (U) Negative Normal Negative [facility] Comment on above: Order Comment: Speci men Type: URINE SPECIMENOrdering Facility: [facility] Address: [address] [place] [address] Performed By: #### 2 4356-8 ####[facility]CL[facility] [id number] [place] [address] [place] Clarity (Unsp spec) Turbid Abnormal Clear Carlos [facility] Comment on above: Order Comment: Speci men Type: URINE SPECIMENOrdering Facility: [facility] Address: [address] [place] [address] Performed By: #### 2 4356-8 ####[facility] [id number] [place] [address] [place] Color (U) Yellow Normal Yellow [facility] Comment on above: Order Comment: Speci men Type: URINE SPECIMENOrdering Facility: [facility] Address: [address] [place] [address] Performed By: #### 2 4356-8 ####[facility] [id number] [place] [address] [place] Epithelial cells LM.HPF (Urine sed) [#/Area] Few Normal [facility] Comment on above: Order Comment: Speci men Type: URINE SPECIMENOrdering Facility: [facility] Address: [address] [place] [address] Performed By: #### 2 4356-8 ####[facility]CL[facility] [id number] [place] [address] [place] Glucose Test strip (U) [Mass/Vol] Negative Normal Negative [facility] Comment on above: Order Comment: Speci men Type: URINE SPECIMENOrdering Facility: [facility] Address: [address] [place] [address] Performed By: #### 2 4356-8 ####[facility]CL[facility] [id number] [place] [address] [place] Hemoglobin Ql (U) 1+ Abnormal Negative [facility] Comment on above: Order Comment: Speci men Type: URINE SPECIMENOrdering Facility: [facility] Address: [address] [place] [address] Performed By: #### 2 4356-8 ####[facility]CL[facility] [id number] [place] [address] [place] Hyaline casts (Urine sed) [#/Area] 1-3 /LPF Abnormal 0 /LPF [facility] Comment on above: Order Comment: Speci men Type: URINE SPECIMENOrdering Facility: [facility] Address: [address] [place] [address] Performed By: #### 2 4356-8 ####[facility]CL[facility] [id number] [place] [address] [place] Ketones Ql (U) Negative Normal Negative [facility] Comment on above: Order Comment: Speci men Type: URINE SPECIMENOrdering Facility: [facility] Address: [address] [place] [address] Performed By: #### 2 4356-8 ####[facility]CLIA [id number] [place] [address] [place] Leukocyte esterase Test strip Ql (U) 3+ Abnormal Negative [facility] Comment on above: Order Comment: Speci men Type: URINE SPECIMENOrdering Facility: [facility] Address: [address] [place] [address] Performed By: #### 2 4356-8 ####[facility] [id number] [place] [address] [place] Nitrite Ql (U) Positive Abnormal Negative [facility] Comment on above: Order Comment: Speci men Type: URINE SPECIMENOrdering Facility: [facility] Address: [address] [place] [address] Performed By: #### 2 4356-8 ####[facility]CLIA [id number] [place] [address] [place] pH (U) 5.5 [pH] Normal <8.5 [facility] Comment on above: Order Comment: Speci men Type: URINE SPECIMENOrdering Facility: [facility] Address: [address] [place] [address] Performed By: #### 2 4356-8 ####[facility]CL[facility] [id number] [place] [address] [place] Protein (U) [Mass/Vol] Trace Abnormal Negative [facility] Comment on above: Order Comment: Speci men Type: URINE SPECIMENOrdering Facility: [facility] Address: [address] [place] [address] Performed By: #### 2 4356-8 ####[facility]CLIA [id number] [place] [address] [place] RBC LM.HPF (Urine sed) [#/Area] /[HPF] Abnormal 0-2 /HPF [facility] Comment on above: Order Comment: Speci men Type: URINE SPECIMENOrdering Facility: [facility] Address: [address] [place] [address] Performed By: #### 2 4356-8 ####[facility]CL[facility] [id number] [place] [address] [place] Specific gravity (U) [Rel density] 1.006 Normal 1.005-1.03 0 [facility] Comment on above: Order Comment: Speci men Type: URINE SPECIMENOrdering Facility: [facility] Address: [address] [place] [address] Performed By: #### 2 4356-8 ####[facility] LABCLIA [id number] [address] [place] Urobilinogen Ql (U) 0.2 EU/dL Normal 0.2-1.0 EU/dL [facility] Comment on above: Order Comment: Speci men Type: URINE SPECIMENOrdering Facility: [facility] Address: [address] [place] [address] Performed By: #### 2 4356-8 ####[facility] LABIA [id number] [address] [place] WBC LM.HPF (Urine sed) [#/Area] /[HPF] Abnormal 0-5 /HPF [facility] Comment on above: Order Comment: Speci men Type: URINE SPECIMENOrdering Facility: [facility] Address: [address] [place] [address] Performed By: #### 2 4356-8 ####[facility] LABIA [id number] [address] [place] CNPNon 06-14-2024 CNPN Telephone (FAMPWS) -- ZACKERY NUNEZ ([id number]) 1960 F Date Time Provider Department 06/14/[facility] During your visit today, we recorded the following information about you: Linda Madison, JOURDAN 06/14/2024 2:26 PM Signed Jony from [facility] calling to update provider. States pt refused assisted and he had to let provider know. Mikayla Strange MD 06/14/2024 2:43 PM Signed noted Allergies As of Date: 06/14/2024 Noted Allergy Reaction COMPAZINE (PROCHLORPERAZINE EDISY*07/14/2014 14 - Other: See Comments Comments: Pt reports it makes more nausea VAIBHAV (FEXOFENADINE HCL) 07/14/2014 5 - Intolerance AUGMENTIN (AMOXICILLIN-POT CLAVUL*07/14/2014 5 - Intolerance BENTYL (DICYCLOMINE HCL) 06/24/2015 8 - GI Upset BIAXIN (CLARITHROMYCIN) 07/14/2014 5 - Intolerance CECLOR (CEFACLOR) 07/14/2014 5 - Intolerance CELEBREX (CELECOXIB) 07/14/2014 5 - Intolerance COLESTIPOL 11/24/2014 14 - Other: See Comments Comments: shaky/headaches/increased nausea DOXEPIN 07/14/2014 5 - Intolerance FENTANYL 07/14/2014 5 - Intolerance Comments: Pt doesn't remember the reaction HUMIRA (ADALIMUMAB) 07/14/2014 5 - Intolerance LEVAQUIN (LEVOFLOXACIN) 07/14/2014 5 - Intolerance METFORMIN 11/21/2023 8 - GI Upset Comments: Gi intolerance PLAQUENIL (HYDROXYCHLOROQUINE SUL*07/14/2014 5 - Intolerance SELDANE 07/14/2014 5 - Intolerance SEPTRA (SULFAMETHOXAZOLE-TRIMETHO *07/14/2014 5 - Intolerance SULFA (SULFONAMIDE ANTIBIOTICS) 07/14/2014 5 - Intolerance VIBRAMYCIN (DOXYCYCLINE CALCIUM) 07/14/2014 5 - Intolerance VICODIN (HYDROCODONE-ACETAMINOPHE* 07/14/2014 5 - Intolerance Date Reviewed: 06/09/2024 Reviewed by: Sydni Waggoner MD - Fully Assessed Reason for Visit: Patient Update [1234] Prescriptions as of 06/14/2024 - buprenorphine (BUTRANS) 20 mcg/hour transdermal patch Apply 1 Patch as directed one time a week for 7 days. Last APPLIED 05/08 - acetaminophen (TYLENOL) 325 mg tablet Take 2 tablets by mouth every 6 hours as needed for pain. - gabapentin (NEURONTIN) 300 mg capsule Take 3 capsules by mouth daily at bedtime for 30 days. - gabapentin (NEURONTIN) 300 mg capsule Take 3 capsules by mouth once daily for 30 days. Daily at noon - polyethylene glycol 3350 17 gram packet Take 1 Packet by mouth once daily as needed. Dissolve dose in 4 - 8 ounces of liquid and take as directed. - lisinopril (ZESTRIL) 10 mg tablet Take 1 tablet by mouth once daily. - estradiol (ESTRACE) 0.01 % (0.1 mg/gram) vaginal cream Use 3 g vaginally once daily. - atorvastatin (LIPITOR) 10 mg tablet Take 1 tablet by mouth once daily. - busPIRone HCl 30 mg tablet Take 1 tablet by mouth two times a day. - omeprazole (PRILOSEC) 40 mg capsule Take 40 mg by mouth once daily. - hyoscyamine sublingual (LEVSIN/SL) 0.125 mg Dissolve 1 tablet under the tongue every 4 hours as needed. - citalopram (CELEXA) 40 mg tablet Take 1 tablet by mouth once daily. - promethazine (PHENERGAN) 25 mg tablet Take 1 tablet by mouth every 6 hours as needed. - SUMAtriptan (IMITREX) 50 mg tablet Take 1 tablet (50 mg) by mouth as needed. - oxyCODONE-acetaminophen (PERCOCET) 5-325 mg tablet 1 tablet three times daily as needed. - upadacitinib (RINVOQ ORAL) Take 15 mg by mouth. - amitriptyline (ELAVIL) 10 mg tablet Take 1 tablet by mouth daily at bedtime. - Cetirizine 10 mg cap Take by mouth. - CALCIUM POLYCARBOPHIL (FIBER LAXATIVE ORAL) Take by mouth. - multivitamin tablet Take 1 tablet by mouth once daily. - latanoprost (XALATAN) 0.005 % ophthalmic solution 1 Drop daily at bedtime. - docusate sodium (COLACE) 100 mg capsule Take 100 mg by mouth twice daily. 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 both eyes [H40.003] 05/11/2019 Irritable bowel syndrome with constipation [K58*05/11/2019 Chronic insomnia [F51.04] 05/11/2019 HLD (hyperlipidemia) [E78.5] 05/11/2019 Hyperglycemia [R73.9] 05/11/2019 03/12/2021 Panic disorder [F41.0] 05/11/2019 Migraine without aura, intractable, without sta*05/11/2019 Chronic back pain [M54.9, G89.29] 09/17/2021 Type 2 diabetes mellitus without complication, *03/12/2021 Elevated BP without diagnosis of hypertension [*11/17/2021 01/14/2022 HTN (hypertension) [I10] 01/14/2022 Obesity, Class III, BMI 40-49.9 (morbid obesity*10/25/2022 05/12/2023 Stage 3 chronic kidney disease (HCC) [N18.30] 10/25/2022 Periprosthetic fracture around prosthetic knee,*05/02/2024 Obesity, Class I, BMI 30-34.9 [E66.811] 05/03/2024 Post-op pain [G89.18] 05/08/2024 Encounter for pain management [R52] (more content not included)... Normal [facility] MAYRAZACKERY ([id number]) 1960 F Date Time Provider Department 06/10[facility] During your visit today, we recorded the following information about you: Soraida Escudero LPN 06/10/2024 2:49 PM Signed Helen from [employer] calling asking for verbal order for assisted, patient is dizzy upon standing. She started her PT on Monday and today bp sitting was 120/80 upon standing was 112/80. Patient can not get into the office very easy, she has external fixator on her leg. She sits on the couch a lot of the time. No dizziness sitting or turning her head, upon standing very dizzy. Can call the office to give the verbal order at [phone] or can call Helen back. Please advise Mikayla Strange MD 06/10/2024 3:26 PM Signed Ok. Soraida Escudero LPN 06/10/2024 3:30 PM Signed Phoned Helen and went over notes below from Dr Strange with understanding. Allergies As of Date: 06/10/2024 Noted Allergy Reaction COMPAZINE (PROCHLORPERAZINE EDISY*07/14/2014 14 - Other: See Comments Comments: Pt reports it makes more nausea VAIBHAV (FEXOFENADINE HCL) 07/14/2014 5 - Intolerance AUGMENTIN (AMOXICILLIN-POT CLAVUL*07/14/2014 5 - Intolerance BENTYL (DICYCLOMINE HCL) 06/24/2015 8 - GI Upset BIAXIN (CLARITHROMYCIN) 07/14/2014 5 - Intolerance CECLOR (CEFACLOR) 07/14/2014 5 - Intolerance CELEBREX (CELECOXIB) 07/14/2014 5 - Intolerance COLESTIPOL 11/24/2014 14 - Other: See Comments Comments: shaky/headaches/increased nausea DOXEPIN 07/14/2014 5 - Intolerance FENTANYL 07/14/2014 5 - Intolerance Comments: Pt doesn't remember the reaction HUMIRA (ADALIMUMAB) 07/14/2014 5 - Intolerance LEVAQUIN (LEVOFLOXACIN) 07/14/2014 5 - Intolerance METFORMIN 11/21/2023 8 - GI Upset Comments: Gi intolerance PLAQUENIL (HYDROXYCHLOROQUINE SUL*07/14/2014 5 - Intolerance SELDANE 07/14/2014 5 - Intolerance SEPTRA (SULFAMETHOXAZOLE-TRIMETHO *07/14/2014 5 - Intolerance SULFA (SULFONAMIDE ANTIBIOTICS) 07/14/2014 5 - Intolerance VIBRAMYCIN (DOXYCYCLINE CALCIUM) 07/14/2014 5 - Intolerance VICODIN (HYDROCODONE-ACETAMINOPHE* 07/14/2014 5 - Intolerance Date Reviewed: 06/09/2024 Reviewed by: Sydni Waggoner MD - Fully Assessed Reason for Visit: Orders [681] Prescriptions as of 06/10/2024 - buprenorphine (BUTRANS) 20 mcg/hour transdermal patch Apply 1 Patch as directed one time a week for 7 days. Last APPLIED 05/08 - acetaminophen (TYLENOL) 325 mg tablet Take 2 tablets by mouth every 6 hours as needed for pain. - gabapentin (NEURONTIN) 300 mg capsule Take 3 capsules by mouth daily at bedtime for 30 days. - gabapentin (NEURONTIN) 300 mg capsule Take 3 capsules by mouth once daily for 30 days. Daily at noon - polyethylene glycol 3350 17 gram packet Take 1 Packet by mouth once daily as needed. Dissolve dose in 4 - 8 ounces of liquid and take as directed. - lisinopril (ZESTRIL) 10 mg tablet Take 1 tablet by mouth once daily. - estradiol (ESTRACE) 0.01 % (0.1 mg/gram) vaginal cream Use 3 g vaginally once daily. - atorvastatin (LIPITOR) 10 mg tablet Take 1 tablet by mouth once daily. - busPIRone HCl 30 mg tablet Take 1 tablet by mouth two times a day. - omeprazole (PRILOSEC) 40 mg capsule Take 40 mg by mouth once daily. - hyoscyamine sublingual (LEVSIN/SL) 0.125 mg Dissolve 1 tablet under the tongue every 4 hours as needed. - citalopram (CELEXA) 40 mg tablet Take 1 tablet by mouth once daily. - promethazine (PHENERGAN) 25 mg tablet Take 1 tablet by mouth every 6 hours as needed. - SUMAtriptan (IMITREX) 50 mg tablet Take 1 tablet (50 mg) by mouth as needed. - oxyCODONE-acetaminophen (PERCOCET) 5-325 mg tablet 1 tablet three times daily as needed. - upadacitinib (RINVOQ ORAL) Take 15 mg by mouth. - amitriptyline (ELAVIL) 10 mg tablet Take 1 tablet by mouth daily at bedtime. - Cetirizine 10 mg cap Take by mouth. - CALCIUM POLYCARBOPHIL (FIBER LAXATIVE ORAL) Take by mouth. - multivitamin tablet Take 1 tablet by mouth once daily. - latanoprost (XALATAN) 0.005 % ophthalmic solution 1 Drop daily at bedtime. - docusate sodium (COLACE) 100 mg capsule Take 100 mg by mouth twice daily. Problem List As Of Date 06/10/2024 Noted Resolved Nausea alone [R11.0] 07/30/2014 07/30/2014 Abdominal pain, epigastric [R10.13] 07/30/2014 07/30/2014 Rheumatoid arthritis (HCC) [M06.9] 05/11/2019 Fibromyalgia [M79.7] 05/11/2019 DDD (degenerative disc disease), lumbar [M51.36*05/11/2019 Glaucoma suspect of both eyes [H40.003] 05/11/2019 Irritable bowel syndrome with constipation [K58*05/11/2019 Chronic insomnia [F51.04] 05/11/2019 HLD (hyperlipidemia) [E78.5] 05/11/2019 Hyperglycemia [R73.9] 05/11/2019 03/12/2021 Panic disorder [F41.0] 05/11/2019 Migraine without aura, intractable, without sta*05/11/2019 Chronic back pain [M54.9, G89.29] (more content not included)... Normal [facility] CNPNon 06-04-2024 CNPN Telephone (FAMWS) -- ZACKERY NUNEZ ([id number]) 1960 F Date Time Provider Department 06/04[facility] During your visit today, we recorded the following information about you: Makenna Crowder RN 06/04/2024 12:15 PM Signed Will from [employer] calling and asking if provider will follow orders for home health physical therapy and occupational therapy? JOURDAN Jansen William J, MD 06/04/2024 2:09 PM Signed Ok to do Soraida Escudero LPN 06/04/2024 2:59 PM Signed Phon ed OB[facility] [place] [employer] left detailed message on voicemail with orders as below from Dr Strange. Allergies As of Date: 06/04/2024 Noted Allergy Reaction COMPAZINE (PROCHLORPERAZINE EDISY*07/14/2014 14 - Other: See Comments Comments: Pt reports it makes more nausea VAIBHAV (FEXOFENADINE HCL) 07/14/2014 5 - Intolerance AUGMENTIN (AMOXICILLIN-POT CLAVUL*07/14/2014 5 - Intolerance BENTYL (DICYCLOMINE HCL) 06/24/2015 8 - GI Upset BIAXIN (CLARITHROMYCIN) 07/14/2014 5 - Intolerance CECLOR (CEFACLOR) 07/14/2014 5 - Intolerance CELEBREX (CELECOXIB) 07/14/2014 5 - Intolerance COLESTIPOL 11/24/2014 14 - Other: See Comments Comments: shaky/headaches/increased nausea DOXEPIN 07/14/2014 5 - Intolerance FENTANYL 07/14/2014 5 - Intolerance Comments: Pt doesn't remember the reaction HUMIRA (ADALIMUMAB) 07/14/2014 5 - Intolerance LEVAQUIN (LEVOFLOXACIN) 07/14/2014 5 - Intolerance METFORMIN 11/21/2023 8 - GI Upset Comments: Gi intolerance PLAQUENIL (HYDROXYCHLOROQUINE SUL*07/14/2014 5 - Intolerance SELDANE 07/14/2014 5 - Intolerance SEPTRA (SULFAMETHOXAZOLE-TRIMETHO *07/14/2014 5 - Intolerance SULFA (SULFONAMIDE ANTIBIOTICS) 07/14/2014 5 - Intolerance VIBRAMYCIN (DOXYCYCLINE CALCIUM) 07/14/2014 5 - Intolerance VICODIN (HYDROCODONE-ACETAMINOPHE* 07/14/2014 5 - Intolerance Date Reviewed: 06/03/2024 Reviewed by: Monik Guerin LPN - Fully Assessed Reason for Visit: Home Health orders [Other] Prescriptions as of 06/04/2024 - buprenorphine (BUTRANS) 20 mcg/hour transdermal patch Apply 1 Patch as directed one time a week for 7 days. Last APPLIED 05/08 - acetaminophen (TYLENOL) 325 mg tablet Take 2 tablets by mouth every 6 hours as needed for pain. - gabapentin (NEURONTIN) 300 mg capsule Take 3 capsules by mouth daily at bedtime for 30 days. - gabapentin (NEURONTIN) 300 mg capsule Take 3 capsules by mouth once daily for 30 days. Daily at noon - polyethylene glycol 3350 17 gram packet Take 1 Packet by mouth once daily as needed. Dissolve dose in 4 - 8 ounces of liquid and take as directed. - lisinopril (ZESTRIL) 10 mg tablet Take 1 tablet by mouth once daily. - estradiol (ESTRACE) 0.01 % (0.1 mg/gram) vaginal cream Use 3 g vaginally once daily. - atorvastatin (LIPITOR) 10 mg tablet Take 1 tablet by mouth once daily. - busPIRone HCl 30 mg tablet Take 1 tablet by mouth two times a day. - omeprazole (PRILOSEC) 40 mg capsule Take 40 mg by mouth once daily. - hyoscyamine sublingual (LEVSIN/SL) 0.125 mg Dissolve 1 tablet under the tongue every 4 hours as needed. - citalopram (CELEXA) 40 mg tablet Take 1 tablet by mouth once daily. - promethazine (PHENERGAN) 25 mg tablet Take 1 tablet by mouth every 6 hours as needed. - SUMAtriptan (IMITREX) 50 mg tablet Take 1 tablet (50 mg) by mouth as needed. - oxyCODONE-acetaminophen (PERCOCET) 5-325 mg tablet 1 tablet three times daily as needed. - upadacitinib (RINVOQ ORAL) Take 15 mg by mouth. - amitriptyline (ELAVIL) 10 mg tablet Take 1 tablet by mouth daily at bedtime. - Cetirizine 10 mg cap Take by mouth. - CALCIUM POLYCARBOPHIL (FIBER LAXATIVE ORAL) Take by mouth. - multivitamin tablet Take 1 tablet by mouth once daily. - latanoprost (XALATAN) 0.005 % ophthalmic solution 1 Drop daily at bedtime. - docusate sodium (COLACE) 100 mg capsule Take 100 mg by mouth twice daily. 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 [H40.003] 05/11/2019 Irritable bowel syndrome with constipation [K58*05/11/2019 Chronic insomnia [F51.04] 05/11/2019 HLD (hyperlipidemia) [E78.5] 05/11/2019 Hyperglycemia [R73.9] 05/11/2019 03/12/2021 Panic disorder [F41.0] 05/11/2019 Migraine without aura, intractable, without sta*05/11/2019 Chronic back pain [M54.9, G89.29] 09/17/2021 Type 2 diabetes mellitus without complication, *03/12/2021 Elevated BP without diagnosis of hypertension [*11/17/2021 01/14/2022 HTN (hypertension) [I10] 01/14/2022 Obesity, Class III, BMI 40-49.9 (morbid obesity*10/25/2022 05/12/2023 Stage 3 chronic kidney disease (HCC) [N18.30] 10/25/2022 Pe (more content not included)... Normal [facility] CNOVon 06-03-2024 CNOV Office Visit (AGPOB1 ) -- ZACKERY NUNEZ ([id number]) 1960 F Date Time Provider Department 06/03/24 1:45 PM SYDNI WAGGONER [facility] During your visit today, we recorded the following information about you: Respiration Weight Height 20/minute 90.7 kg 1.651 m Sydni Waggoner MD 06/09/2024 4:27 PM Signed ORTHOPAEDIC SURGERY OFFICE NOTE: SURGERY DATE: 1) 05/07/2024 SURGERY: 1) Open Treatment of the Right Periprosthetic Proximal Tibia Fracture with Internal Fixation 2) Right Lower Extremity Knee-Spanning Uniplanar External Fixator CHIEF COMPLAINT: Routine Post-Operative Follow-Up HISTORY OF PRESENT ILLNESS: Zackery Nunez is a 64 year old female who presents for routine post-operative follow-up from the above listed operation (see Surgery above for full details). At today's appointment, the patient reports doing well. The patient endorses controlled pain to the right knee. The patient has tolerated the right lower extremity knee-spanning external fixator and maintained non-weightbearing recommendations with the right lower extremity. The patient denies fevers and chills. The patient has no additional orthopaedic traumatic complaints at this time. Reviewed nursing note and current pain scale. PAST MEDICAL HISTORY Diagnosis Date Anxiety disorder Arthritis Chronic back pain Dr. Burks-pain management Depressive disorder, not elsewhere classified Diabetes (HCC) Pt reports she takes cinnamin tabs to manage her diabetes Essential hypertension, benign Fibromyalgia Glaucoma IBS (irritable bowel syndrome) Migraine, unspecified, without mention of intractable migraine without mention of status migrainosus PONV (postoperative nausea and vomiting) Pure hypercholesterolemia Rheumatoid arthritis (HCC) Sleep apnea pt states she snores frequently;though never worked-up for RUPESH Snoring PAST SURGICAL HISTORY Procedure Laterality Date [...] Never Smokeless tobacco: Never Vaping Use Vaping status: Never Used Substance Use Topics Alcohol use: No Drug use: No MEDICATIONS: Current Outpatient Medications Medication Sig buprenorphine (BUTRANS) 20 mcg/hour transdermal patch Apply 1 Patch as directed one time a week for 7 days. Last APPLIED 05/08 acetaminophen (TYLENOL) 325 mg tablet Take 2 tablets by mouth every 6 hours as needed for pain. gabapentin (NEURONTIN) 300 mg capsule Take 3 capsules by mouth daily at bedtime for 30 days. gabapentin (NEURONTIN) 300 mg capsule Take 3 capsules by mouth once daily for 30 days. Daily at noon polyethylene glycol 3350 17 gram packet Take 1 Packet by mouth once daily as needed. Dissolve dose in 4 - 8 ounces of liquid and take as directed. lisinopril (ZESTRIL) 10 mg tablet Take 1 tablet by mouth once daily. estradiol (ESTRACE) 0.01 % (0.1 mg/gram) vaginal cream Use 3 g vaginally once daily. atorvastatin (LIPITOR) 10 mg tablet Take 1 tablet by mouth once daily. (Patient taking differently: Take 10 mg by mouth daily at bedtime.) busPIRone HCl 30 mg tablet Take 1 tablet by mouth two times a day. omeprazole (PRILOSEC) 40 mg capsule Take 40 mg by mouth once daily. hyoscyamine sublingual (LEVSIN/SL) 0.125 mg Dissolve 1 tablet under the tongue every 4 hours as needed. citalopram (CELEXA) 40 mg tablet Take 1 tablet by mouth once daily. promethazine (PHENERGAN) 25 mg tablet Take 1 tablet by mouth every 6 hours as needed. SUMAtriptan (IMITREX) 50 mg tablet Take 1 tablet (50 mg) by mouth as needed. oxyCODONE-acetaminophen (PERCOCET) 5-325 mg tablet 1 tablet three times daily as needed. upadacitinib (RINVOQ ORAL) Take 15 mg by mouth. amitriptyline (ELAVIL) 10 mg tablet Take 1 tablet by mouth daily at bedtime. Cetirizine 10 mg cap Take by mouth. CALCIUM POLYCARBOPHIL (FIBER LAXATIVE ORAL) Take by mouth. multivitamin tablet Take 1 tablet by mouth once daily. latanoprost (XALATAN) 0.005 % ophthalmic solution 1 Drop daily at bedtime. docusate sodium (COLACE) 100 mg capsul (more content not included)... Normal [facility] Basic metabolic 2000 panelon 05-09-2024 Anion gap [Moles/Vol] 9 mmol/L Normal 8-15 [facility] Comment on above: Order Comment: Speci men Type: BLOOD SPECIMENOrdering Facility: [facility] Address: [address] [place] [address] Performed By: #### 6 00-7 #### [facility] CLIA [id number] [address] [place] [address] [place] Calcium [Mass/Vol] 8.7 mg/dL Normal 8.5-10.2 [facility] Comment on above: Order Comment: Speci men Type: BLOOD SPECIMENOrdering Facility: [facility] Address: [facility] [place] [address] Performed By: #### 6 00-7 #### [facility] CLIA [id number] [address] [place] [address] [place] Chloride [Moles/Vol] 94 mmol/L Low 98-107 [facility] Comment on above: Order Comment: Speci men Type: BLOOD SPECIMENOrdering Facility: [facility] Address: [address] [place] [address] Performed By: #### 6 00-7 #### [facility] CLIA [id number] [address] STATES [place] [facility] CO2 [Moles/Vol] 28 mmol/L Normal 22-30 [facility] Comment on above: Order Comment: Speci men Type: BLOOD SPECIMENOrdering Facility: [facility] Address: [address] [place] [address] Performed By: #### 6 00-7 #### [facility] CLIA [id number] [address] [place] [facility] Creatinine [Mass/Vol] 0.85 mg/dL Normal 0.58-0.96 [facility] Comment on above: Order Comment: Speci men Type: BLOOD SPECIMENOrdering Facility: [facility] Address: [address] [place] [address] Performed By: #### 6 00-7 #### [facility] CLIA [id number] [address] Creatinine and Glomerular filtration rate.predicted panel (S/P/Bld) 76 mL/min/1.73m??? Normal >=60 [facility] Comment on above: Order Comment: Speci men Type: BLOOD SPECIMENOrdering Facility: [facility] Address: [address] [place] [address] Result Comment: Sienna mated Glomerular Filtration Rate (eGFR) is calculated using the 2020 CKD-EPI creatinine equation. This equation utilizes serum creatinine, sex, and age as parameters. The creatinine assay has traceable calibration to isotope dilution-mass spectrometry. Refer to KDIGO guidelines for clinical interpretation. In patients with unstable renal function, e.g. those with acute kidney injury, the eGFR may not accurately reflect actual GFR. Performed By: #### 6 00-7 #### [facility] CLIA [id number] [address] [place] [facility] Glucose [Mass/Vol] 125 mg/dL High 74-99 [facility] Comment on above: Order Comment: Speci men Type: BLOOD SPECIMENOrdering Facility: [facility] Address: [address] [place] [address] Result Comment: The [place] Diabetes Association (ADA) provides guidance for cutoff values for fasting glucose and random glucose. The ADA defines fasting as no caloric intake for at least 8 hours. Fasting plasma glucose results between 100 to 125 mg/dL indicate increased risk for diabetes (prediabetes). Fasting plasma glucose results greater than or equal to 126 mg/dL meet the criteria for diagnosis of diabetes. In the absence of unequivocal hyperglycemia, results should be confirmed by repeat testing. In a patient with classic symptoms of hyperglycemia or hyperglycemic crisis, random plasma glucose results greater than or equal to 200 mg/dL meet the criteria for diagnosis of diabetes. Reference: Standards of Medical Care in Diabetes 2016, [place] [employer] Association. Diabetes Care. 2016.39(Suppl 1). Performed By: #### 6 00-7 #### [facility] CLIA [id number] [address] [place] [address] [place] Potassium [Moles/Vol] 4.0 mmol/L Normal 3.7-5.1 [facility] Comment on above: Order Comment: Nery flash Type: BLOOD SPECIMENOrdering Facility: [facility] Address: [address] [place] [address] Performed By: #### 6 00-7 #### [facility] CLIA [id number] [address] [place] [address] [place] Sodium [Moles/Vol] 131 mmol/L Low 136-144 [facility] Comment on above: Order Comment: Speci men Type: BLOOD SPECIMENOrdering Facility: [facility] Address: [address] [place] [address] Performed By: #### 6 00-7 #### [facility] CLIA [id number] [address] [place] [address] [place] Urea nitrogen [Mass/Vol] 11 mg/dL Normal 7-21 [facility] Comment on above: Order Comment: Cji men Type: BLOOD SPECIMENOrdering Facility: [facility] Address: [address] [place] [address] Performed By: #### 6 00-7 #### [facility] CLIA [id number] [address] CBC panel Auto (Bld)on 05-09 Erythrocyte distribution width (RBC) [Ratio] 14.0 % Normal 11.5-15.0 [facility] Comment on above: Order Comment: Speci men Type: BLOOD SPECIMENOrdering Facility: [facility] Address: [address] [place] [address] Performed By: #### 5 8410-2 ####[facility] [place] [facility] [id number] [address] Hematocrit (Bld) [Volume fraction] 27.2 % Low 36.0-46.0 [facility] Comment on above: Order Comment: Speci men Type: BLOOD SPECIMENOrdering Facility: [facility] Address: [address] [place] [address] Performed By: #### 5 8410-2 ####[facility] [place] [place] [facility] [id number] [address] Hemoglobin (Bld) [Mass/Vol] 8.6 g/dL Low 11.5-15.5 [facility] Comment on above: Order Comment: Speci men Type: BLOOD SPECIMENOrdering Facility: [facility] Address: [address] [place] [address] Performed By: #### 5 8410-2 ####[facility] [place] [place] [facility] [id number] [address] MCH (RBC) [Entitic mass] 29.3 pg Normal 26.0-34.0 [facility] Comment on above: Order Comment: Speci men Type: BLOOD SPECIMENOrdering Facility: [facility] Address: [address] [place] [address] Performed By: #### 5 8410-2 ####[facility] [place] [place] [facility] [id number] [address] MCHC (RBC) [Mass/Vol] 31.6 g/dL Normal 30.5-36.0 [facility] Comment on above: Order Comment: Speci men Type: BLOOD SPECIMENOrdering Facility: [facility] Address: [address] [place] [address] Performed By: #### 5 8410-2 ####[facility] [place] [place] [facility] [id number] [address] [place] MCV (RBC) [Entitic vol] 92.5 fL Normal 80.0-100.0 [facility] Comment on above: Order Comment: Speci men Type: BLOOD SPECIMENOrdering Facility: [facility] Address: [address] [place] [address] Performed By: #### 5 8410-2 ####[facility] [place] [place] [facility] [id number] [address] [place] Nucleated RBC (Bld) [#/Vol] 10*3/uL Normal <0.01 [facility] Comment on above: Order Comment: Speci men Type: BLOOD SPECIMENOrdering Facility: [facility] Address: [address] [place] [address] Performed By: #### 5 8410-2 ####[facility] [place] [place] [facility] [id number] [address] [place] Platelet mean volume (Bld) [Entitic vol] 10.2 fL Normal 9.0-12.7 [facility] Comment on above: Order Comment: Speci men Type: BLOOD SPECIMENOrdering Facility: [facility] Address: [address] [place] [address] Performed By: #### 5 8410-2 ####[facility] [place] [place] [facility] [id number] [place] [address] [place] Platelets (Bld) [#/Vol] 236 10*3/uL Normal 150-400 [facility] Comment on above: Order Comment: Speci men Type: BLOOD SPECIMENOrdering Facility: [facility] Address: [address] [place] [address] Performed By: #### 5 8410-2 ####[facility] [place] [place] [facility] [id number] [place] [address] [place] RBC (Bld) [#/Vol] 2.94 10*6/uL Low 3.90-5.20 [facility] Comment on above: Order Comment: Speci men Type: BLOOD SPECIMENOrdering Facility: [facility] Address: [address] [place] [address] Performed By: #### 5 8410-2 ####[facility] [place] [place] [facility] [id number] [address] WBC (Bld) [#/Vol] 9.78 10*3/uL Normal 3.70-11.00 [facility] Comment on above: Order Comment: Speci men Type: BLOOD SPECIMENOrdering Facility: [facility] Address: [address] [place] [address] Performed By: #### 5 8410-2 ####[facility] [id number] [address] CNDSon 05-09-2024 CNDS HNO ID: [id number] Author: SYDNI WAGGONER MD Service: Orthopaedic Surgery Author Type: Physician Type: Discharge Summary Filed: 05/09/2024 19:47 Note Text: ORTHOPEDIC SURGERY DISCHARGE SUMMARY ADMISSION DATE: 05/02/2024 DISCHARGE DATE: 05/09/2024 Attending Physician: Sydni Waggoner MD Admitting Diagnosis: right periprosthetic proximal proximal tibia fracture Discharge Diagnosis: Same as admitting Additional Diagnoses: ACTIVE PROBLEM LIST Rheumatoid Arthritis (Hcc) Fibromyalgia Ddd (Degenerative Disc Disease), Lumbar Glaucoma Suspect of Both Eyes Irritable Bowel Syndrome With Constipation Chronic Insomnia Hld (Hyperlipidemia) Panic Disorder Migraine Without Aura, Intractable, Without Status Migrainosus Type 2 Diabetes Mellitus Without Complication, Without Long-Term Current Use of Insulin (Hcc) Htn (Hypertension) Stage 3 Chronic Kidney Disease (Hcc) Periprosthetic Fracture Around Prosthetic Knee, Initial Encounter Obesity, Class I, Bmi 30-34.9 Surgeries During Hospitalization: Procedure(s) (LRB): APPLICATION EXTERNAL FIXATOR TIBIA (Right) Consultations: Physical Therapy Case Management Internal Medicine Pain Management Occupational therapy Hospital Course: The patient is a 64 year old female who has been followed by Sydni Coyne MD, . It was determined she would benefit from surgery. The procedure, its risks, benefits, and potential complications were discussed in detail with the patient or POA prior to surgery. Understanding of all topics was conveyed by the patient or POA, and consent was given for surgery. The patient was admitted through the Emergency Department to [facility] on 05/02/2024. The patient underwent surgery on 05/03/2024 (external fixator application to the right lower extremity) and ORIF of the right periprosthetic proximal tibia fracture on 05/07/2024. The patient did well post-operatively Once on the floor her postoperative course was unremarkable and she did well. Her diet was advanced which she tolerated. Her pain was well controlled. She worked with Physical and Occupational Therapy who recommended she be discharged to SNF. She remained afebrile with stable vital signs throughout her stay. She was stable for discharge on 05/09/2024. Complete and comprehensive discharge instructions were provided to the patient as well as necessary prescriptions. The patient had no further questions and was advised to call with any questions, concerns, or problems. Patient was hemodynamically stable postoperatively. Relevant labs included: Hemoglobin (g/dL) Date Value 05/06/2024 10.0 (L) 05/05/2024 9.9 (L) 05/04/2024 9.7 (L) Hematocrit (%) Date Value 05/06/2024 32.3 (L) 05/05/2024 30.4 (L) 05/04/2024 30.3 (L) Discharge Antibiotics: None Prior to surgery the patient was treated with antibiotics and continued with antibiotics 24 hours postoperatively DVT Prophylaxis: Sequential Compression Devices and Lovenox Complications: Internal medicine was consulted for post op medical management. Evaluated for post op fever. Infectious process ruled out. Patient reports fevers at home 2/2 RA. Surgical Site care: Keep pin site dressings clean and dry. Clean daily and PRN with Hibiclens (or similar wound vacuum cleaner assembler) and saline 50:50 solution around pin sites. Apply Xeroform and Kerlix around pin sites with each daily dressing change. Maintain wound vac to right lower extremity. Remove once all lights on machine have gone out approximately on 05/16/2024. Once wound vac removed, wash incision daily with soap and water and pat area dry. No creams, lotions, powders, alcohol or peroxide to incisional area. Weight Bearing: Non weight Bearing RLE Diet: cab controlled diet Patient Condition @ Discharge: Stable Blood pressure 122/62, pulse 75, temperature 37.5 ?C (99.5 ?F), temperature source Oral, resp. rate 18, height 165.1 cm (5' 5), weight 90.7 kg (200 lb), SpO2 96%. Discharge Disposition: Residential Facility The patient was instructed to follow-up in Future Appointments Date Time Provider Department Center 07/09/2024 1:40 PM Mikayla Strange MD [facility] 07/16/2024 2:00 PM Kd Stockton PA-C [facility] Highest Readmission Risk Score: 19 The 30 day readmissions risk score is derived from an internally validated risk model which evaluates patient level characteristics, utilization history, medication orders and lab results up until the day of discharge. Patients with a score of 40 or above are considered highest risk for readmission. Specific patient level drivers will be listed at the bottom of the summary. The 30 day readmissions risk score is derived from an internally validated risk model which evaluates patient level characteristics, utilization history, medication orders and lab results up until the day of discharge. Patients with a score of 40 or above are considered highest ris (more content not included)... Normal [facility] HBA1C (OUTSIDE)Ordered By: Cortney Lopez on 05-09-2024 HbA1c (Bld) [Mass fraction] 5.8 % [facility] HISTORY PHYSICALon HISTORY PHYSICAL HNO ID: [id number] Author: JOCELIN BEST MD Service: Hospital Medicine Author Type: Physician Type: H&P Filed: 05/09/2024 10:49 Note Text: DEPARTMENT OF HOSPITAL MEDICINE HISTORY AND PHYSICAL EXAM SERVICE DATE: 05/09/2024 SERVICE TIME: 10:44 AM Primary Care Physician: Mikayla Strange MD NIGHT AND WEEKEND COVERAGE: From 7am - 7pm, please call Sound After 7pm, please call cross cover pager #[phone] Subjective CHIEF COMPLAINT: Fever HPI: This is a 64 year old female who comes from to be with hx of diabetes, hypertension, chronic pain and rheumatoid arthritis. Patient is postop day #2 for tibial patellar fracture. We are consulted because patient had been spiking fevers as high as 102 degrees. Concern for infectious etiology versus postop complications versus atelectasis. Infectious workup has been negative so far, chest x-ray shows no acute process, and patient does admit upon interview that she has a history of rheumatoid arthritis and always has fevers. She has chronic dysuria but does not feel like this is infected either. PAST MEDICAL HISTORY Diagnosis Date Anxiety disorder Arthritis Chronic back pain Dr. Burks-pain management Depressive disorder, not elsewhere classified Diabetes (HCC) Pt reports she takes cinnamin tabs to manage her diabetes Essential hypertension, benign Fibromyalgia Glaucoma IBS (irritable bowel syndrome) Migraine, unspecified, without mention of intractable migraine without mention of status migrainosus PONV (postoperative nausea and vomiting) Pure hypercholesterolemia Rheumatoid arthritis (HCC) Sleep apnea pt states she snores frequently;though never worked-up for RUPESH Snoring PAST SURGICAL HISTORY Procedure Laterality Date [...] HX TUBAL LIGATION HX 08/11/1997 VAGINAL HYSTERECTOMY Social history is FAMILY HISTORY Problem Relation Age of Onset Diabetes Mother Hypertension Mother Heart Attack Mother Diabetes Father Hypertension Father Heart Attack Father COPD Sister other (sjorgens) Sister affects vision other (Other) Sister lupus Bipolar disorder Daughter Diabetes Maternal Grandmother Family History is Social History Tobacco Use Smoking status: Never Smokeless tobacco: Never Vaping Use Vaping status: Never Used Substance Use Topics Alcohol use: No Drug use: No HOME MEDICATIONS: Prior to Admission Medications Prescriptions Last Dose Informant Patient Reported? Taking? CALCIUM POLYCARBOPHIL (FIBER LAXATIVE ORAL) Yes No Sig: Take by mouth. Cetirizine 10 mg cap Yes Yes Sig: Take by mouth. SUMAtriptan (IMITREX) 50 mg tablet No No Sig: Take 1 tablet (50 mg) by mouth as needed. amitriptyline (ELAVIL) 10 mg tablet No Yes Sig: Take 1 tablet by mouth daily at bedtime. atorvastatin (LIPITOR) 10 mg tablet No Yes Sig: Take 1 tablet by mouth once daily. Patient taking differently: Take 10 mg by mouth daily at bedtime. buprenorphine 20 mcg/hour ptwk 05/01/2024 Yes No Sig: Apply 1 Patch as directed one time a week. PT APPLIED 05/01 busPIRone HCl 30 mg tablet No Yes Sig: Take 1 tablet by mouth two times a day. citalopram (CELEXA) 40 mg tablet No Yes Sig: Take 1 tablet by mouth once daily. docusate sodium (COLACE) 100 mg capsule Yes No Sig: Take 100 mg by mouth twice daily. estradiol (ESTRACE) 0.01 % (0.1 mg/gram) vaginal cream No No Sig: Use 3 g vaginally once daily. gabapentin (NEURONTIN) 300 mg capsule Yes Yes Sig: Take 300 mg by mouth. 900 mg (3 tabs) a.m, 600 mg (2 tabs) p.m hyoscyamine sublingual (LEVSIN/SL) 0.125 mg No No Sig: Dissolve 1 tablet under the tongue every 4 hours as needed. latanoprost (XALATAN) 0.005 % ophthalmic solution Yes No Si Drop daily at bedtime. lisinopril (ZESTRIL) 10 mg tablet No Yes Sig: Take 1 tablet by mouth once daily. multivitamin tablet Yes No Sig: Take 1 tablet by mouth once daily. omeprazole (PRILOSEC) 40 mg capsule Yes Yes Sig: Take 40 mg by mouth once daily. oxyCODONE-acetaminophen (PERCOCET) 5-325 mg tablet Yes Yes Si tablet three times daily as needed. promethazine (PHENERGAN) 25 mg tablet No No Sig: Take 1 tablet by mouth every 6 hours as needed. upadacitinib (RINVOQ ORAL) Yes No Sig: Take 15 mg by mouth. Facility-Administered Medications: None ALLERGIES Allergen Reactions Compazine [Prochlor* Other: See Comments Pt reports it makes more nausea Vaibhav [Fexofenadi* Intolerance Augmentin [Amoxicil* Intolerance Bentyl [Dicyclomine* GI Ups (more content not included)... Normal [facility] NUTRITIONon 05-09-2024 NUTRITION HNO ID: [id number] Author: EMMY DESAI RD Service: ? Author Type: Registered Dietitian Type: Nutrition Filed: 05/09/2024 11:23 Note Text: SCREEN NOTE SERVICE DATE: 05/09/2024 SERVICE TIME: 1021 Care Plan: Continue current diet Supplements: Ensure Max Discharge Recommendations: Diet;Oral Supplements Diet: regular Oral Supplements: high protein supplement as needed between meal until wound heals. Monitor and Evaluation: Meet greater than 75% of estimated needs;Monitor labs, I/Os, vital signs, weight;Monitor fluid/electrolyte balance;Monitor bowel function HPI: 64 year old female with below PMHx who was admitted for Periprosthetic fracture around prosthetic knee, initial encounter [M97.8XXA, Z96.659]. POD # 6 s/p R knee external fixator for periprosthetic tibia fracture and POD #2 from ORIF R periprosthetic tibial plateau fracture. PAST MEDICAL HISTORY Diagnosis Date Anxiety disorder Arthritis Chronic back pain Dr. Burks-pain management Depressive disorder, not elsewhere classified Diabetes (HCC) Pt reports she takes cinnamin tabs to manage her diabetes Essential hypertension, benign Fibromyalgia Glaucoma IBS (irritable bowel syndrome) Migraine, unspecified, without mention of intractable migraine without mention of status migrainosus PONV (postoperative nausea and vomiting) Pure hypercholesterolemia Rheumatoid arthritis (HCC) Sleep apnea pt states she snores frequently;though never worked-up for RUPESH Snoring Intake History: Nutrition Intake Prior to Admission: Greater than 75% estimated energy needs greater than or equal to 3 months (Pt struggles with nausesa but uses christina tablets and anti nausea meds as needed. Eats as able, estimates 3-4 small meals, boost when desired, stopped about 1 month ago. Observed cinnamon supplement at bedside.) Current Nutrition Intake: Greater than 75% estimated energy needs Current Intake Over time: Greater than or equal to 7 days (Consuming ~75% of meals while here, would benefit from addition protein for healing, pt agreeable.) Diet Orders (From admission, onward) Start Ordered 05/07/242044 DIET REGULAR START NOW 05/07/242034 Anthropometrics: Height: 165.1 cm (5' 5) Weight: 90.7 kg (200 lb) Usual Weight: 94 kg (207 lb 3.7 oz) x 5 months prior. Usual Weight Obtained From: Chart Review Weight change percentage over time: CBW of 91kg confirmed, no sig wt changes x 1,4,5 months or 1 year. Declining trend noted, but pt using Boost as desired to help meet needs. Weight Change: Stable weight(s) MNT Billing: $ Initial Assessment: 1-15 minutes SIGNATURE: Emmy Desai RD PATIENT NAME: Zackery Nunez DATE: May 09, 2024 TIME: 11:18 AM Normal [facility] Procalcitonin SerPl-mCncon 1 07-09-2023 Procalcitonin [Mass/Vol] 0.19 ng/mL High <0.09 [facility] Comment on above: Order Comment: Speci men Type: BLOOD SPECIMENOrdering Facility: [facility] Address: [address] [place] [address] Result Comment: For a guided interpretation of test results, please visit the Change in Procalcitonin Calculator, [email or web address]. Performed By: #### 3 3959-8 ####[facility] [place] [facility]ORYCL[facility] [id number] [address] [place] Urinalysis complete panel (U )on 05-09-2024 Bilirubin Ql (U) Negative Normal Negative [facility] Comment on above: Order Comment: Speci men Type: URINE SPECIMENOrdering Facility: [facility] Address: [address] [place] [address] Performed By: #### 2 4356-8 ####[facility] [place] [facility]ORYCLIA [id number] [place] [address] [place] Clarity (Unsp spec) Clear Normal Clear [facility] Comment on above: Order Comment: Speci men Type: URINE SPECIMENOrdering Facility: [facility] Address: [address] [place] [address] Performed By: #### 2 4356-8 ####[facility] [facility]ATORYCL[facility] [id number] [address] [place] Color (U) Light Yellow Normal yellow [facility] Comment on above: Order Comment: Speci men Type: URINE SPECIMENOrdering Facility: [facility] Address: [address] [place] [address] Performed By: #### 2 4356-8 ####[facility]ORYCL[facility] [id number] [address] [place] Glucose Test strip (U) [Mass/Vol] Negative Normal Trace, Negative [facility] Comment on above: Order Comment: Speci men Type: URINE SPECIMENOrdering Facility: [facility] Address: [address] [place] [address] Performed By: #### 2 4356-8 ####[facility] [facility]ORYCL[facility] [id number] [place] [address] [place] Hemoglobin Ql (U) Negative Normal Negative, Trace [facility] Comment on above: Order Comment: Speci men Type: URINE SPECIMENOrdering Facility: [facility] Address: [facility] [place] [address] Performed By: #### 2 4356-8 ####[facility] [facility]ORYCL[facility] [id number] [address] [place] Ketones Ql (U) Negative Normal Negative, Trace [facility] Comment on above: Order Comment: Speci men Type: URINE SPECIMENOrdering Facility: [facility] Address: [address] [place] [address] Performed By: #### 2 4356-8 ####[facility] [facility]ORYCL[facility] [id number] [address] [place] Leukocyte esterase Test strip Ql (U) Negative Normal Negative, 25 Dheeraj/uL [facility] Comment on above: Order Comment: Speci men Type: URINE SPECIMENOrdering Facility: [facility] Address: [address] [place] [address] Performed By: #### 2 4356-8 ####[facility] [place] [facility]ORYCL[facility] [id number] [address] [place] Nitrite Ql (U) Negative Normal Negative [facility] Comment on above: Order Comment: Speci men Type: URINE SPECIMENOrdering Facility: [facility] Address: [address] [place] [address] Performed By: #### 2 4356-8 ####[facility] [facility]ORYCL[facility] [id number] [address] [place] pH (U) 6.0 [pH] Normal 5.0-8.0 [facility] Comment on above: Order Comment: Speci men Type: URINE SPECIMENOrdering Facility: [facility] Address: [address] [place] [address] Performed By: #### 2 4356-8 ####[facility] [facility]ORYCLIA [id number] [place] [address] [place] Protein (U) [Mass/Vol] Negative Normal Trace, Negative [facility] Comment on above: Order Comment: Speci men Type: URINE SPECIMENOrdering Facility: [facility] Address: [address] [place] [address] Performed By: #### 2 4356-8 ####[facility] [place] [facility]ORYCL[facility] [id number] [address] [place] RBC LM.HPF (Urine sed) [#/Area] 0-3 /HPF Normal 0-3 /HPF [facility] Comment on above: Order Comment: Speci men Type: URINE SPECIMENOrdering Facility: [facility] Address: [address] [place] [address] Performed By: #### 2 4356-8 ####[facility] [facility]ORYCL[facility] [id number] [address] [place] Specific gravity (U) [Rel density] 1.006 Normal 1.005-1.03 0 [facility] Comment on above: Order Comment: Speci men Type: URINE SPECIMENOrdering Facility: [facility] Address: [address] [place] [address] Performed By: #### 2 4356-8 ####[facility] [place] [facility]ORYCLIA [id number] [address] Urobilinogen Ql (U) Normal Normal Normal [facility] Comment on above: Order Comment: Speci men Type: URINE SPECIMENOrdering Facility: [facility] Address: [address] [place] [id number] Performed By: #### 2 4356-8 ####[facility] [place] [facility]ATORYCL[facility] [id number] [address] WBC LM.HPF (Urine sed) [#/Area] 0-5 /HPF Normal 0-5 /HPF [facility] Comment on above: Order Comment: Speci men Type: URINE SPECIMENOrdering Facility: [facility] Address: [address] [place] [address] Performed By: #### 2 4356-8 ####[facility] [place] [facility]ORYCLIA [id number] [place] [id number] [facility] XR CHEST 1V FRONTALon 2023 XR CHEST 1V FRONTAL * * *Final Report* * * DATE OF EXAM: May 09 2024 8:50AM AKX [id number] - XR CHEST 1V FRONTAL / PROCEDURE REASON: Fever * * * * Physician Interpretation * * * * EXAMINATION: CHEST RADIOGRAPH (SINGLE VIEW AP OR PA) CLINICAL HISTORY: Fever MQ: XC1_5 Comparison: 12/17/2021 RESULT: Lines, tubes, and devices: None. Lungs and pleura: No consolidation. No lung mass. No pleural effusion. Cardiomediastinal silhouette: Normal cardiomediastinal silhouette. Other: . IMPRESSION: No acute radiographic abnormality. Digital Marketing Manager: CHERELLE Transcribe Date/Time: May 09 2024 8:53A Dictated by : JENNA MARIE MD This examination was interpreted and the report reviewed and electronically signed by: JENNA MARIE MD on May 09 2024 8:55AM EST [id number] Normal [facility] Basic metabolic 2000 panelon 05-08-2024 Anion gap [Moles/Vol] 10 mmol/L Normal 8-15 [facility] Comment on above: Order Comment: Speci men Type: BLOOD SPECIMENOrdering Facility: [facility] Address: [address] [place] [id number] Performed By: #### 2 4321-2 ####[facility] [place] [facility]ATORYCLIA [id number] [place] [address] [place] Calcium [Mass/Vol] 8.3 mg/dL Low 8.5-10.2 [facility] Comment on above: Order Comment: Speci men Type: BLOOD SPECIMENOrdering Facility: [facility] Address: [address] [place] [address] Performed By: #### 2 4321-2 ####[facility] [place] [facility]ATORYCLIA [id number] [place] [address] [place] Chloride [Moles/Vol] 97 mmol/L Low 98-107 [facility] Comment on above: Order Comment: Speci men Type: BLOOD SPECIMENOrdering Facility: [facility] Address: [address] [place] [address] Performed By: #### 2 4321-2 ####[facility] [place] [facility]ATORYCLIA [id number] [place] [address] [place] CO2 [Moles/Vol] 26 mmol/L Normal 22-30 [facility] Comment on above: Order Comment: Speci men Type: BLOOD SPECIMENOrdering Facility: [facility] Address: [address] [place] [address] Performed By: #### 2 4321-2 ####[facility] [facility]ATORYCLIA [id number] [address] [place] Creatinine [Mass/Vol] 0.85 mg/dL Normal 0.58-0.96 [facility] Comment on above: Order Comment: Speci men Type: BLOOD SPECIMENOrdering Facility: [facility] Address: [address] [place] [address] Performed By: #### 2 4321-2 ####[facility] [facility]ATORYCLIA [id number] [address] Creatinine and Glomerular filtration rate.predicted panel (S/P/Bld) 76 mL/min/1.73m??? Normal >=60 [facility] Comment on above: Order Comment: Speci men Type: BLOOD SPECIMENOrdering Facility: [facility] Address: [address] [place] [address] Result Comment: Sienna mated Glomerular Filtration Rate (eGFR) is calculated using the 2020 CKD-EPI creatinine equation. This equation utilizes serum creatinine, sex, and age as parameters. The creatinine assay has traceable calibration to isotope dilution-mass spectrometry. Refer to KDIGO guidelines for clinical interpretation. In patients with unstable renal function, e.g. those with acute kidney injury, the eGFR may not accurately reflect actual GFR. Performed By: #### 2 4321-2 ####[facility] [place] [facility]ORYCLIA [id number] [place] [address] [place] Glucose [Mass/Vol] 137 mg/dL High 74-99 [facility] Comment on above: Order Comment: Nery vidales Type: BLOOD SPECIMENOrdering Facility: [facility] Address: [address] [place] [address] Result Comment: The [place] Diabetes Association (ADA) provides guidance for cutoff values for fasting glucose and random glucose. The ADA defines fasting as no caloric intake for at least 8 hours. Fasting plasma glucose results between 100 to 125 mg/dL indicate increased risk for diabetes (prediabetes). Fasting plasma glucose results greater than or equal to 126 mg/dL meet the criteria for diagnosis of diabetes. In the absence of unequivocal hyperglycemia, results should be confirmed by repeat testing. In a patient with classic symptoms of hyperglycemia or hyperglycemic crisis, random plasma glucose results greater than or equal to 200 mg/dL meet the criteria for diagnosis of diabetes. Reference: Standards of Medical Care in Diabetes 2016, [place] [employer] Association. Diabetes Care. 2016.39(Suppl 1). Performed By: #### 2 4321-2 ####[facility] [place] [place] [facility]ORYCLIA [id number] [place] [address] [place] Potassium [Moles/Vol] 4.2 mmol/L Normal 3.7-5.1 [facility] Comment on above: Order Comment: Nery vidales Type: BLOOD SPECIMENOrdering Facility: [facility] Address: [address] [place] [id number] Performed By: #### 2 4321-2 ####[facility] [place] [facility]ATORYCLIA [id number] [place] [address] [place] Sodium [Moles/Vol] 133 mmol/L Low 136-144 [facility] Comment on above: Order Comment: Speci men Type: BLOOD SPECIMENOrdering Facility: [facility] Address: [address] [place] [address] Performed By: #### 2 4321-2 ####[facility] [place] [facility]ATORYCLIA [id number] [address] STATES OF [facility] Urea nitrogen [Mass/Vol] 10 mg/dL Normal 7-21 [facility] Comment on above: Order Comment: Speci men Type: BLOOD SPECIMENOrdering Facility: [facility] Address: [address] [place] [address] Performed By: #### 2 4321-2 ####[facility] [place] [facility]ATORYCLIA [id number] [address] OF [facility] CBC panel Auto (Bld)on 05-08 Erythrocyte distribution width (RBC) [Ratio] 13.6 % Normal 11.5-15.0 [facility] Comment on above: Order Comment: Speci men Type: BLOOD SPECIMENOrdering Facility: [facility] Address: [address] [place] [address] Performed By: #### 5 8410-2 ####[facility] [place] [facility]ATORYCLIA [id number] [address] [place] [facility] Hematocrit (Bld) [Volume fraction] 27.4 % Low 36.0-46.0 [facility] Comment on above: Order Comment: Speci men Type: BLOOD SPECIMENOrdering Facility: [facility] Address: [address] [place] [address] Performed By: #### 5 8410-2 ####[facility] [place] [facility]ORYCLIA [id number] [address] [place] Hemoglobin (Bld) [Mass/Vol] 8.7 g/dL Low 11.5-15.5 [facility] Comment on above: Order Comment: Speci men Type: BLOOD SPECIMENOrdering Facility: [facility] Address: [address] [place] [address] Performed By: #### 5 8410-2 ####[facility] [place] [facility]ORYCLIA [id number] [address] MCH (RBC) [Entitic mass] 28.7 pg Normal 26.0-34.0 [facility] Comment on above: Order Comment: Speci men Type: BLOOD SPECIMENOrdering Facility: [facility] Address: [address] [place] [address] Performed By: #### 5 8410-2 ####[facility] [place] [facility]ORYCL[facility] [id number] [address] MCHC (RBC) [Mass/Vol] 31.8 g/dL Normal 30.5-36.0 [facility] Comment on above: Order Comment: Speci men Type: BLOOD SPECIMENOrdering Facility: [facility] Address: [address] [place] [address] Performed By: #### 5 8410-2 ####[facility] [place] [facility]ORYCLIA [id number] [address] MCV (RBC) [Entitic vol] 90.4 fL Normal 80.0-100.0 [facility] Comment on above: Order Comment: Speci men Type: BLOOD SPECIMENOrdering Facility: [facility] Address: [address] [place] [address] Performed By: #### 5 8410-2 ####[facility] [place] [facility]ORYCL[facility] [id number] [address] Nucleated RBC (Bld) [#/Vol] 10*3/uL Normal <0.01 [facility] Comment on above: Order Comment: Speci men Type: BLOOD SPECIMENOrdering Facility: [facility] Address: [address] [place] [address] Performed By: #### 5 8410-2 ####[facility] [place] [facility]ORYCLIA [id number] [address] Platelet mean volume (Bld) [Entitic vol] 10.2 fL Normal 9.0-12.7 [facility] Comment on above: Order Comment: Speci men Type: BLOOD SPECIMENOrdering Facility: [facility] Address: [address] [place] [address] Performed By: #### 5 8410-2 ####[facility] [place] [facility]ORYCL[facility] [id number] [address] Platelets (Bld) [#/Vol] 222 10*3/uL Normal 150-400 [facility] Comment on above: Order Comment: Speci men Type: BLOOD SPECIMENOrdering Facility: [facility] Address: [address] [place] [address] Performed By: #### 5 8410-2 ####[facility] [place] [facility]ORYCL[facility] [id number] [address] RBC (Bld) [#/Vol] 3.03 10*6/uL Low 3.90-5.20 [facility] Comment on above: Order Comment: Speci men Type: BLOOD SPECIMENOrdering Facility: [facility] Address: [address] [place] [address] Performed By: #### 5 8410-2 ####[facility] [place] [facility]ORYCL[facility] [id number] [address] WBC (Bld) [#/Vol] 9.33 10*3/uL Normal 3.70-11.00 [facility] Comment on above: Order Comment: Speci men Type: BLOOD SPECIMENOrdering Facility: [facility] Address: [address] [place] [address] Performed By: #### 5 8410-2 ####[facility] [place] [place] [facility] [id number] [address] NURSING PROGon 05-08-2024 NURSING PROG HNO ID: [id number] Author: JOSELIN PARKER, RN Service: Nursing Author Type: Registered Nurse Type: Nursing Progress Note Filed: 05/08/2024 17:41 Note Text: Notified ortho team about continued rise in temp. All other vital signs within normal limits. Will continue to monitor. Normal [facility] THERAPY NTon 05-08-2024 THERAPY NT HNO ID: [id number] Author: ANGELIC KAPOOR OTR/Twyla Service: Occupational Therapy Author Type: Occupational Therapist Type: Therapy (PT/OT/Speech/Resp) Filed: 05/08/2024 14:58 Note Text: OCCUPATIONAL THERAPY MISSED VISIT SERVICE DATE: 05/08/2024 SERVICE TIME: 1456 ROOM: [place] [address] Patient not seen due to Refused Treatment (Pt reports severe headache, firmly declines OT this afternoon.). Provided with cool washcloth, will try back as able/agreeable. SIGNATURE: KRANTHI Fuchs/Twyla PATIENT NAME: Zackery Nunez DATE: May 08, 2024 TIME: 2:57 PM Normal [facility] THERAPY NT HNO ID: [id number] Author: JAVY PERSAUD PTA Service: Physical Therapy Author Type: Machine Sole Leveler Type: Therapy (PT/OT/Speech/Resp) Filed: 05/08/2024 12:01 Note Text: -- Attestation signed by Aryan Valles, PT at 05/08/2024 4:49 PM I reviewed and agree with the assessment as documented above. SIGNATURE: Aryan Valles, PT DATE: May 08, 2024 TIME: 4:49 PM -- Physical Therapy Treatment Summary SERVICE DATE: 05/08/2024 SERVICE TIME: 0941 to 1007 ROOM: [place] [address] PT 6 Clicks Score: 12 DISCHARGE RECOMMENDATIONS Subacute/SNF Recommended Discharge Disposition Comments: Patient functioning below baseline, recommend SNF at discharge to improve strength and optimize functional independence Recommended Discharge Disposition Due to: Functional deficits requiring ongoing therapy service prior to discharge home., Functional status decline ASSESSMENT Response to Therapy Interventions: Good Participation in Activities Patient continues to require increased levels of assist with all mobility tasks. Patient able to come to standing--unable to take hop step on LLE of scoot foot along ground this session. Patient continues to be recommended for subacute/SNF to improve strength, balance, endurance, increased ambulation distances with normalize gait pattern, and increased independence with functional task performance/mobility to prior level of function. Additional personal present during this visit: Lela Allred PRECAUTIONS Fall Risk, Weight Bearing Restrictions Ex-Fix RLE Right Lower Extremity Weight Bearing Status: NWB CURRENT HOSPITAL COURSE 64 y.o female admitted from outside hospital following fall, resulting in R periprosthetic proximal tibia fx, s/p R knee external fixator placement 05/03, OR early next week for ORIF Relevant Past Medical History: DM, HTN, RA, R TKA HOME LIVING Patient Lives With: Spouse Assistance Available: 24-Hour Entry To Home: Ramp Number Of Stairs To Bed/Bath: 0 Tub/Shower Type: tub shower Laundry: spouse can complete Equipment Owned: Shower Chair, Grab Bars- Shower, Rollator, Wheelchair- Manual, Walker- Wheeled PRIOR FUNCTIONAL LEVEL Within Functional Limits Patient independent [employer]SIDE [employer]ENT[employer]IVES, ambulating without a device, drives SUBJECTIVE Patient pleasant and agreeable to PT session THERAPY DIAGNOSIS Muscle Weakness (generalized), Reduced mobility-other, General symptoms and signs-other TREATMENT INTERVENTIONS Therapeutic Exercise (51485), Therapeutic Activity (44263) Therapeutic Exercise (01957) Treatment Minutes: 13 $ Therapeutic Exercise (91911) Billed Units: 1 unit Patient completed LE strengthening (ankle pump, quad set, gluteal set, heel slide LLE, hip abd/add to neutral, short arc quad LLE, SLR, hip adductor squeeze) x 10 to 12 reps with mod amount of assist on RLE. Patient set up with ice to surgical hip and elevated lower extremity as needed. Therapeutic Activity (59065) Treatment Minutes: 13 $ Therapeutic Activity (68031) Billed Units: 1 unit cuing/assist for proper movements/techniques with rolling, scooting, long sit pivot transfers to EOB/back, and transfer to standing. Patient unable to hop/scoot on LLE this session. Positioned for comfort at end of session. RLE elevated on 2 pillow for edema control.bed alarm on. Timed Code Treatment (minutes): 26 Skilled Treatment Time (minutes): 26 TRAINING AND EDUCATION PROVIDED Assistive Device Use, Bed Mobility, Exercise Program, Positioning, Gait Pattern, Reduction of Deviations, Transfers, Precautions/Restrictions THERAPEUTIC SKILLS USED Cues for Sequencing/Proper Technique for Activity, Cuing Tactile, Cuing Verbal, Cuing Visual, Facilitation of Joint Range of Motion, Movement Facilitation, Physical Assist, Postural Alignment Correction FUNCTIONAL STATUS mobility performed during session in bold, other mobility completed during prior session and may no longer be correct or appropriate to complete. Bed Mobility Rolling: Moderate Assistance, Minimal Assistance mod A to manage RLE Supine To Sit: Minimal Assistance via long sit pivot, assist with RLE Sit to Supine: Minimal Assistance via reverse long sit pivot--assist with RLE Scooting: Minimal Assistance assist with RLE Transfers Sit To Stand: Moderate Assistance, Minimal Assistance cuing for proper UE support, NWB on RLE, powering up with LLE Stand To Sit: Moderate Assistance, Minimal Assistance assist with eccentric control, cuing for proper UE support, NWB on RLE Bed to Chair Moderate Assistance, Additional Information Bed To Chair Transfer Type: Stand Pivot Bed To Chair Transfer Equipment: Gait Belt, Wheeled Walker Gait Stairs BALANCE Static Sitting Balance: Good Dynamic Sitting Balance: Good Static Standing Farhan (more content not included)... [facility] ANES POSTPROC EVALon 024 ANES POSTPROC EVAL HNO ID: [id number] Author: PERLA VILA MD Service: Anesthesiology Author Type: Anesthesiologist Type: Anesthesia Postprocedure Evaluation Filed: 05/09/2024 11:37 Note Text: POST ANESTHESIA EVALUATION NOTE : 1960 Procedure Summary Date: 05/07/24 Room / Location: [place] OR 07 / [place] OR Anesthesia Start: 1425 Anesthesia Stop: 1645 Procedures: ORIF TIBIAL PLATEAU (Right: Knee) ADJ / REVISE EXTERNAL FIXATOR SYSTEM LOWER EXTREMITY (Right) Diagnosis: Periprosthetic fracture around prosthetic knee, initial encounter (Periprosthetic fracture around prosthetic knee, initial encounter [M97.8XXA, Z96.659]) Surgeons: Sydni Waggoner MD Responsible Provider: Perla Vila MD Anesthesia Type: general ASA Status: 3 Anesthesia Type: general Airway Type: ETT Last Vitals Vitals Value Taken Time BP 153/63 05/07/241999 Temp 38.1 ?C (100.6 ?F) 05/07/241944 HR SpO2 74 05/07/241999 Resp 26 05/07/241999 SpO2 96 % 05/07/241999 Vitals shown include unfiled device data. Post Anesthesia Patient Status Patient Evaluation: PACU. PACU/ICU Patient Condition: stable. Neurological Status: aware and responsive. Pulmonary Status: breathing comfortably on supplemental oxygen Airway Control: returned to baseline unsupported. Cardiovascular Status: stable. Pain Management: clinically adequate Postoperative Hydration: acceptable. Intraoperative Events: no significant anesthesia events Post Operative Nausea/Vomiting Status: no significant post operative nausea or vomiting Recommendation: continue current plan of care. Anesthesia Observations No Documentation SIGNATURE: Perla Vila MD PATIENT NAME: Zackery Nunez DATE: May 09, 2024 TIME: 11:36 AM CSN: [id number] [facility] ANES PRE-OPon 05-07-2024 ANES PRE-OP HNO ID: [id number] Author: PERLA VILA MD Service: Anesthesiology Author Type: Anesthesiologist Type: Anesthesia Preprocedure Evaluation Filed: 05/07/2024 13:20 Note Text: ANESTHESIOLOGY DAY OF SURGERY NOTE Right tibial plateau HTN - lisinopril HLD - statin Glaucoma GERD - PPI PONV RA DM Psych - amytriptyline, citalopram, buspirone Echo 2021 EF = 55% Dao 3, grade 1 : 1960 Procedure Information Date/Time: 05/07/24 1445 Procedure: ORIF TIBIAL PLATEAU (Right: Knee) Location: [place] OR / [place] OR Surgeons: Sydni Waggoner MD Estimated body mass index is 33.28 kg/m? as calculated from the following: Height as of this encounter: 165.1 cm (5' 5). Weight as of this encounter: 90.7 kg (200 lb). Most recent hematocrit and potassium results: Hematocrit 27.6 05/07/2024 Potassium 4.1 05/07/2024 Relevant Problems CARDIO (+) HTN (hypertension) (+) Migraine without aura, intractable, without status migrainosus ENDO (+) Type 2 diabetes mellitus without complication, without long-term current use of insulin ([facility]) -RENAL (+) Stage 3 chronic kidney disease ([facility]) NEURO-PSYCH (+) Migraine without aura, intractable, without status migrainosus Other (+) Rheumatoid arthritis ([facility]) I - PHYSICAL EVALUATION AIRWAY Patient intubated: No. Tracheostomy tube not present Mallampati: II. TM distance: >3 FB. Neck ROM: full ROM without neurological symptoms. Mouth opening: adequate. Short neck: no. Thick neck: no DENTAL Dental findings: missing tooth/teeth. II - ANESTHESIA PLAN ASA Score: 3 Anesthetic Plan: general Airway type: ETT NPO Status: adequate Beta Paramjit Monitoring Plan Monitoring plan: standard ASA. Post Procedure Analgesic Plan Postoperative analgesic plan: multimodal analgesia and peripheral nerve block. Informed Consent Anesthetic risks, benefits, alternatives, personnel and consent discussed: yes. Patient / Responsible Libertarian agrees to proceed: yes Patient / Surrogate agrees to blood products: Yes Potential Anesthesia issues that may suggest increased risk of complications or contraindication to planned procedure: none. Vitals Value Taken Time BP 111/64 05/07/24 1114 Pulse 81 05/07/24 1114 Resp 18 05/07/24 1114 Temp 37.2 ?C (98.9 ?F) 05/07/24 1114 SpO2 98 % 05/07/24 1114 Facility-Administered Medications as of 05/07/2024 Medication Dose Route Frequency [Transfer Hold] lisinopril 10 mg tab(s) (ZESTRIL) 10 mg ORAL DAILY [COMPLETED] fentaNYL 50 mcg/mL 50 mcg injection (SUBLIMAZE) 50 mcg INTRAVENOUS q 5 MIN PRN [Transfer Hold] oxyCODONE IR 5-10 mg tab(s) (ROXICODONE) 5-10 mg ORAL q 4 H PRN [Transfer Hold] HYDROmorphone 0.5 mg injection (DILAUDID) 0.5 mg INTRAVENOUS q 3 H PRN [Transfer Hold] calcium-cholecalciferol (D3) 2 tablet tab(s) (OSCAL+D 250) 2 tablet ORAL BID [Transfer Hold] senna 17.2 mg tab(s) (SENOKOT) 17.2 mg ORAL AT BEDTIME [Transfer Hold] enoxaparin 40 mg injection (LOVENOX) 40 mg SUBCUTANEOUS q 24 HR [COMPLETED] ceFAZolin iv piggyback 2 g in D5W (iso-osmotic) 100 mL (ANCEF) 2 g INTRAVENOUS q 8 HR [COMPLETED] HYDROmorphone 0.5 mg injection (DILAUDID) 0.5 mg INTRAVENOUS q 10 MIN PRN [COMPLETED] HYDROmorphone 0.5 mg injection (DILAUDID) 0.5 mg INTRAVENOUS ONCE [Transfer Hold] amitriptyline 10 mg tab(s) (ELAVIL) 10 mg ORAL AT BEDTIME [Transfer Hold] citalopram 40 mg tab(s) (CeleXA) 40 mg ORAL DAILY [Transfer Hold] promethazine 25 mg tab(s) (PHENERGAN) 25 mg ORAL q 6 H PRN [Transfer Hold] SUMAtriptan 50 mg tab(s) (IMITREX) 50 mg ORAL PRN [Transfer Hold] hyoscyamine sublingual 0.125 mg tab(s) (LEVSIN SL) 0.125 mg SUBLINGUAL q 4 H PRN [Transfer Hold] atorvastatin 10 mg tab(s) (LIPITOR) 10 mg ORAL DAILY [Transfer Hold] busPIRone 30 mg tab(s) (BUSPAR) 30 mg ORAL BID [Transfer Hold] estradiol 3 g vaginal cream (ESTRACE) [id number] Applicator VAGINAL DAILY [Transfer Hold] NaCl 0.9% iv flush bag 20 mL INTRAVENOUS PRN [Transfer Hold] ondansetron (PF) 4 mg injection (ZOFRAN) 4 mg INTRAVENOUS q 6 H PRN [Transfer Hold] melatonin 3 mg tab(s) 3 mg ORAL AT BEDTIME PRN [Transfer Hold] acetaminophen 1,000 mg tab(s) (TYLENOL) 1,000 mg ORAL q 8 H [Transfer Hold] pantoprazole DR 40 mg tab(s) (PROTONIX) 40 mg ORAL DAILY (6 AM) [Transfer Hold] senna-docusate 8.6-50 mg 1 tablet (SENNA-S) 1 tablet ORAL BID [Transfer Hold] gabapentin 900 mg cap(s) (NEURONTIN) 900 mg ORAL DAILY AT 12 PM [Transfer Hold] gabapentin 600 mg cap(s) (NEURONTIN) 600 mg ORAL AT BEDTIME [Transfer Hold] buprenorphine transdermal patch 20 mcg/hr (BUTRANS) 1 Patch TRANSDERMAL 1/WK [Transfer Hold] buprenorphine - REMOVE PATCH OTHER 1/WK And [Transfer Hold] buprenorphine - VERIFY PATCH OTHER q 8 H Outpatient Medications as of 05/07/2024 Medication Sig lisinopril (ZESTRIL) 10 mg tablet Take 1 tablet by mouth once daily. atorvastatin (LIPITOR) 10 mg tablet Take 1 tablet by mouth once daily. (Patient (more content not included)... [facility] BRIEF OP NOTon 05-07-2024 BRIEF OP NOT HNO ID: [id number] Author: SAHARA ROYAL MD Service: Orthopaedic Surgery Author Type: Resident Type: Brief Op Note Filed: 05/07/2024 16:56 Note Text: Orthopaedic Surgery Brief Operative Note Log ID: [id number] Surgery/Procedure Date: 05/07/2024 Incision/Procedure Start Time: 2:55 PM Incision Close/Procedure End Time: 4:32 PM Surgeon(s)/Proceduralist(s ) and Barrel Loader(s): Surgeons and Role: * Sydni Waggoner MD - Primary * Sahara Royal MD - Resident - Assisting * Dennis Cancino MD - Resident - Assisting No Additional Staff Procedure(s): Procedure(s) (LRB): ORIF TIBIAL PLATEAU (Right) ADJ / REVISE EXTERNAL FIXATOR SYSTEM LOWER EXTREMITY (Right) Anesthesia: Choice - Anesthesia Consult Pre-Op/Pre-Procedure Diagnosis: Periprosthetic fracture around prosthetic knee, initial encounter [M97.8XXA, Z96.659] Post-Op/Post-Procedure Diagnosis: Periprosthetic fracture around prosthetic knee, initial encounter [M97.8XXA, Z96.659] Implant: Implant Name Type Inv. Item Serial No. Brim Rounder Lot No. LRB No. Used Action GRAFT BN AUGMENT INJ 3.0CC - [id number] Graft GRAFT BN AUGMENT INJ 3.0CC [facility] [id number] Right 1 Implanted PROXIMAL POSTEROMEDIAL TIBIA PLATE R 3.5MM 82MM 5 HOLES Implant MATILDA Right 1 Implanted SCREW BONE 3.5MM 32MM TITANIUM CORTICAL LOCK NONSTERILE AXSOS 3 - [id number] Screw SCREW BONE 3.5MM 32MM TITANIUM CORTICAL LOCK NONSTERILE AXSOS 3 MATILDA Right 1 Implanted SCREW BONE 3.5MM 40MM TITANIUM CORTICAL NONSTERILE AXSOS 3 - [id number] Screw SCREW BONE 3.5MM 40MM TITANIUM CORTICAL NONSTERILE AXSOS 3 MATILDA Right 1 Implanted LOCKING SCREW 3.5MM / T15 / L70MM Implant MATILDA Right 1 Implanted LOCKING SCREW 3.5MM / T15 / L60MM Implant MATILDA Right 2 Implanted WIRE LIBBY 1.6MM STAINLESS STEEL 150MM FIXATION LOW PROFILE HIGH - [id number] Wire WIRE LIBBY 1.6MM STAINLESS STEEL 150MM FIXATION LOW PROFILE HIGH MATILDA TRAUMA Right 1 Non-Implant LOCKING SCREW 3.5MM / T15 / L20MM Implant MATILDA Right 1 Implanted LOCKING SCREW 3.5MM / T15 / L65MM Implant MATILDA Right 1 Implanted LOCKING SCREW 3.5MM / T15 / L65MM Implant MATILDA Right 1 Wasted WIRE LIBBY VARIAX 2MM STAINLESS STEEL 150MM FIXATION TROCAR POINT - [id number] Wire WIRE LIBBY VARIAX 2MM STAINLESS STEEL 150MM FIXATION TROCAR POINT MATILDA TRAUMA Right 1 Non-Implant Fluids: per anesthesia Estimated Blood Loss: 150cc Malcolm: None Specimens: None Drains: None Findings: See operative report. Complications: None Special medications: 2 g Ancef Post op plan: 64 year old female status-post ORIF R periprosthetic tibial plateau fracture with retention of external fixator. - Management per ortho - Pain control. - Weight Bearing Status: NWB RLE. - Dressing(s): soft dressings to pin sites, wound vac to incisional site, will need prevena at discharge - PT/OT: Evaluation AND recommendations. - DVT PPx: SCDs. Lovenox 40 mg daily x 21 days. - Antibiotic PPx: Ancef 2 g Q8H x 2 doses. - Malcolm: none. - Imaging: none. - Anticipated Length of Stay/Disposition: SNF planning/no further orthopedic surgical intervention, patient will remain with external fixator to R knee and will be discharged with Prevena wound vac. Sahara Royal MD Orthopedic Surgery Resident 05/07/24 4:54 PM [facility] Basic metabolic 2000 panelon 05-07-2024 Anion gap [Moles/Vol] 11 mmol/L Normal 8-15 [facility] Comment on above: Order Comment: Speci men Type: BLOOD SPECIMENOrdering Facility: [facility] Address: [address] [place] [address] Performed By: #### 6 00-7 #### [facility] CLIA [id number] [address] [place] Calcium [Mass/Vol] 8.6 mg/dL Normal 8.5-10.2 [facility] Comment on above: Order Comment: Speci men Type: BLOOD SPECIMENOrdering Facility: [facility] Address: [address] [place] [address] Performed By: #### 6 00-7 #### [facility] CLIA [id number] [address] [place] Chloride [Moles/Vol] 96 mmol/L Low 98-107 [facility] Comment on above: Order Comment: Speci men Type: BLOOD SPECIMENOrdering Facility: [facility] Address: [address] [place] [address] Performed By: #### 6 -7 #### [facility] CLIA [id number] [address] [place] CO2 [Moles/Vol] 24 mmol/L Normal 22-30 [facility] Comment on above: Order Comment: Speci men Type: BLOOD SPECIMENOrdering Facility: [facility] Address: [address] [place] [address] Performed By: #### 6 -7 #### [facility] CLIA [id number] [address] [place] Creatinine [Mass/Vol] 0.81 mg/dL Normal 0.58-0.96 [facility] Comment on above: Order Comment: Speci men Type: BLOOD SPECIMENOrdering Facility: [facility] Address: [address] [place] [address] Performed By: #### 6 00-7 #### [facility] CLIA [id number] [address] [place] Creatinine and Glomerular filtration rate.predicted panel (S/P/Bld) 80 mL/min/1.73m??? Normal >=60 [facility] Comment on above: Order Comment: Nery vidales Type: BLOOD SPECIMENOrdering Facility: [facility] Address: [address] [place] [address] Result Comment: Sienna mated Glomerular Filtration Rate (eGFR) is calculated using the 2020 CKD-EPI creatinine equation. This equation utilizes serum creatinine, sex, and age as parameters. The creatinine assay has traceable calibration to isotope dilution-mass spectrometry. Refer to KDIGO guidelines for clinical interpretation. In patients with unstable renal function, e.g. those with acute kidney injury, the eGFR may not accurately reflect actual GFR. Performed By: #### 6 00-7 #### [facility] CLIA [id number] [address] [place] [address] [place] Glucose [Mass/Vol] 104 mg/dL High 74-99 [facility] Comment on above: Order Comment: Nery vidales Type: BLOOD SPECIMENOrdering Facility: [facility] Address: [address] [place] [address] Result Comment: The [place] Diabetes Association (ADA) provides guidance for cutoff values for fasting glucose and random glucose. The ADA defines fasting as no caloric intake for at least 8 hours. Fasting plasma glucose results between 100 to 125 mg/dL indicate increased risk for diabetes (prediabetes). Fasting plasma glucose results greater than or equal to 126 mg/dL meet the criteria for diagnosis of diabetes. In the absence of unequivocal hyperglycemia, results should be confirmed by repeat testing. In a patient with classic symptoms of hyperglycemia or hyperglycemic crisis, random plasma glucose results greater than or equal to 200 mg/dL meet the criteria for diagnosis of diabetes. Reference: Standards of Medical Care in Diabetes 2016, [place] Diabetes Association. Diabetes Care. 2016.39(Suppl 1). Performed By: #### 6 00-7 #### [facility] CLIA [id number] [address] [place] [address] [place] Potassium [Moles/Vol] 4.1 mmol/L Normal 3.7-5.1 [facility] Comment on above: Order Comment: Nery vidales Type: BLOOD SPECIMENOrdering Facility: [facility] Address: [address] [place] [address] Performed By: #### 6 00-7 #### [facility] CLIA [id number] [address] Sodium [Moles/Vol] 131 mmol/L Low 136-144 [facility] Comment on above: Order Comment: Speci men Type: BLOOD SPECIMENOrdering Facility: [facility] Address: [address] [place] [address] Performed By: #### 6 00-7 #### [facility] CLIA [id number] [address] [place] [facility] Urea nitrogen [Mass/Vol] 10 mg/dL Normal 7-21 [facility] Comment on above: Order Comment: Speci men Type: BLOOD SPECIMENOrdering Facility: [facility] Address: [address] [place] [address] Performed By: #### 6 00-7 #### [facility] CLIA [id number] [address] CBC panel Auto (Bld)on 05-07 Erythrocyte distribution width (RBC) [Ratio] 13.8 % Normal 11.5-15.0 [facility] Comment on above: Order Comment: Speci men Type: BLOOD SPECIMENOrdering Facility: [facility] Address: [address] [place] [address] Performed By: #### 5 8410-2 ####[facility] [id number] [address] Hematocrit (Bld) [Volume fraction] 27.6 % Low 36.0-46.0 [facility] Comment on above: Order Comment: Speci men Type: BLOOD SPECIMENOrdering Facility: [facility] Address: [address] [place] [address] Performed By: #### 5 8410-2 ####[facility] [id number] [address] Hemoglobin (Bld) [Mass/Vol] 8.8 g/dL Low 11.5-15.5 [facility] Comment on above: Order Comment: Speci men Type: BLOOD SPECIMENOrdering Facility: [facility] Address: [address] [place] [address] Performed By: #### 5 8410-2 ####[facility] [place] [place] [facility] [id number] [address] MCH (RBC) [Entitic mass] 28.9 pg Normal 26.0-34.0 [facility] Comment on above: Order Comment: Speci men Type: BLOOD SPECIMENOrdering Facility: [facility] Address: [address] [place] [address] Performed By: #### 5 8410-2 ####[facility] [place] [place] [facility] [id number] [address] MCHC (RBC) [Mass/Vol] 31.9 g/dL Normal 30.5-36.0 [facility] Comment on above: Order Comment: Speci men Type: BLOOD SPECIMENOrdering Facility: [facility] Address: [address] [place] [address] Performed By: #### 5 8410-2 ####[facility] [place] [place] [facility] [id number] [address] MCV (RBC) [Entitic vol] 90.5 fL Normal 80.0-100.0 [facility] Comment on above: Order Comment: Speci men Type: BLOOD SPECIMENOrdering Facility: [facility] Address: [address] [place] [address] Performed By: #### 5 8410-2 ####[facility] [place] [place] [facility] [id number] [address] Nucleated RBC (Bld) [#/Vol] 10*3/uL Normal <0.01 [facility] Comment on above: Order Comment: Speci men Type: BLOOD SPECIMENOrdering Facility: [facility] Address: [address] [place] [address] Performed By: #### 5 8410-2 ####[facility] [place] [place] [facility] [id number] [address] Platelet mean volume (Bld) [Entitic vol] 10.4 fL Normal 9.0-12.7 [facility] Comment on above: Order Comment: Speci men Type: BLOOD SPECIMENOrdering Facility: [facility] Address: [address] [place] [address] Performed By: #### 5 8410-2 ####[facility] [place] [place] [facility] [id number] [address] [place] Platelets (Bld) [#/Vol] 199 10*3/uL Normal 150-400 [facility] Comment on above: Order Comment: Speci men Type: BLOOD SPECIMENOrdering Facility: [facility] Address: [address] [place] [address] Performed By: #### 5 8410-2 ####[facility] [place] [place] [facility] [id number] [address] [facility] RBC (Bld) [#/Vol] 3.05 10*6/uL Low 3.90-5.20 [facility] Comment on above: Order Comment: Speci men Type: BLOOD SPECIMENOrdering Facility: [facility] Address: [address] [place] [address] Performed By: #### 5 8410-2 ####[facility] [place] [place] [facility] [id number] [address] [facility] WBC (Bld) [#/Vol] 8.22 10*3/uL Normal 3.70-11.00 [facility] Comment on above: Order Comment: Speci men Type: BLOOD SPECIMENOrdering Facility: [facility] Address: [address] [place] [address] Performed By: #### 5 8410-2 ####[facility] [place] [place] [facility] [id number] [address] NURSING PROGon 05-07-2024 NURSING PROG HNO ID: [id number] Author: CHACHA SCHNEIDER RN Service: Nursing Author Type: Registered Nurse Type: Nursing Progress Note Filed: 05/08/2024 03:44 Note Text: Ortho resident updated to oral temperature of 102.1F. Patient administered tylenol and ice packs given. Will monitor for changes. [facility] OPERATIVE NOon 05-07-2024 OPERATIVE NO HNO ID: [id number] Author: SYDNI WAGGONER MD Service: Orthopaedic Surgery Author Type: Physician Type: Operative Report Filed: 05/08/2024 20:33 Note Text: OPERATIVE/PROCEDURE REPORT LOG ID: [id number] SURGERY/PROCEDURE DATE: 05/07/2024 INCISION/PROCEDURE START TIME: 2:55 PM INCISION CLOSE/PROCEDURE END TIME: 4:32 PM SURGEON(S)/PROCEDURALIST(S ) AND IMPORT/EXPORT FREIGHT FORWARDER(S): Surgeons and Role: * Sydni Waggoner MD - Primary * Sahara Royal MD - Resident - Assisting * Dennis Cancino MD - Resident - Assisting No Additional Staff PRE-OP/PRE-PROCEDURE DIAGNOSIS: 1) Right Periprosthetic Proximal Tibia Fracture, Closed POST-OP/POST-PROCEDURE DIAGNOSIS: 1) Right Periprosthetic Proximal Tibia Fracture, Closed SURGERY/PROCEDURE(S): 1) Open Treatment of the Right Periprosthetic Tibia Fracture, Proximal; Bicondylar with Internal Fixation (CPT 28774 - 58) 2) Revision of Right Lower Extremity Knee-Spanning Uniplanar External Fixator Requiring Anesthesia (CPT 77138 - 58) 3) Negative Pressure Wound Therapy Utilizing Durable Medical Equipment; Total Surface Area Less than 50 Square Centimeters (CPT 60077 - 58) ANESTHESIA: 1) General ANTIBIOTICS: 1) Ancef 2g IV ESTIMATED BLOOD LOSS: 1) 150 CC FLUIDS: 1) Per Anesthesia Documentation SPECIMENS: 1) None CLINICAL INDICATIONS: 64 year old female was transferred to [facility] on 05/02/2024 for management of a complex right periprosthetic proximal tibia fracture. The patient underwent open reduction of the right periprosthetic proximal tibia fracture with application of a right lower extremity knee-spanning uniplanar external fixator on 05/03/2024. The patient was deemed stable for definitive fixation of the right periprosthetic proximal tibia fracture on 05/07/2024 from a soft tissue standpoint. The risks, limitations, benefits and alternatives to all treatment options including non-operative and operative management of the patient's right periprostheic proximal tibia fracture were discussed with the patient. The risks of the operation include, but are not limited to, the risks associated with general anesthesia, infection, bleeding, damage to nearby structures (such as arteries, veins, nerves, muscle, tendons, ligaments), chronic pain, malunion, nonunion, deep venous thromboses, pulmonary embolism, hardware failure and the need for future operations. The patient elected to proceed with open reduction internal fixation of the right periprosthetic proximal tibia fracture. All questions and concerns were answered and addressed. The informed consent was reviewed. SURGERY/PROCEDURE DETAILS: The patient was met in the pre-operative holding area on 05/07/2024. A pre-operative huddle was conducted with the surgical team. The patient was identified with two patient identifiers (name and date of ). The patient's operative site (right lower extremity) was marked. The pre-operative checklist, including review of the informed consent, was reviewed and agreed upon by all members of the surgical team. The patient was transferred to the operating room. The patient was intubated by anesthesia (endotracheal intubation) and positioned supine on a radiolucent table with attention to padding of bony prominences. The patient's right lower extremity, including the external fixator, was pre-cleansed with alcohol, sterilely prepped (Chlorhexidine) and draped in standard orthopaedic fashion. A final time out was then conducted in accordance with [facility] policy. After all members of the surgical team agreed upon the details of the procedure, the patient's knee-spanning external fixator was disassembled. The patient's previous medial knee incision was incised with a scalpel. The incision was extended distally along the lower leg. Hemostasis was achieved withelectrocautery. Dissection was performed deep to the medial proximal tibia. The periprosthetic proximal tibia fracture was identified, delineated with a scalpel and thoroughly irrigated with sterile saline. There was significant anterior tibial comminution through which the tibial component of the total knee arthroplasty was visualized. The patient's bone quality was found to be exceedingly soft. The periprosthetic bicondylar proximal tibia fracture was reduced under direct visualization with two pointed reduction forceps. AP and lateral right knee radiographs demonstrated acceptable periprosthetic bicondylar proximal tibia fracture reduction. A 5-hole Matilda Pangea posteromedial proximal tibia plate was applied along the medial proximal tibia. The plate position was confirmed on AP and lateral right knee radiographs. The plate was secured to the tibia with two cortical screws distally and five locking screws proximally. Four of the locking screws were inserted from the medial proximal tibia, around the tibial component of the total knee (more content not included)... Normal [facility] THERAPY NTon 05-07-2024 THERAPY NT HNO ID: [id number] Author: KVNG NOBLE PT Service: Physical Therapy Author Type: Machine Sole Leveler Type: Therapy (PT/OT/Speech/Resp) Filed: 05/07/2024 15:35 Note Text: -- Attestation signed by Kvng Noble PT at 05/07/2024 3:35 PM I reviewed and agree with the documentation corresponding to this therapy visit. SIGNATURE: Kvng Noble PT DATE: May 07, 2024 TIME: 3:35 PM -- Physical Therapy Treatment Summary SERVICE DATE: 05/07/2024 SERVICE TIME: 924 to 949 ROOM: [id number] PT 6 Clicks Score: 12 DISCHARGE RECOMMENDATIONS Subacute/SNF Recommended Discharge Disposition Comments: Patient functioning below baseline, recommend SNF at discharge to improve strength and optimize functional independence Recommended Discharge Disposition Due to: Functional deficits requiring ongoing therapy service prior to discharge home., Functional status decline ASSESSMENT Response to Therapy Interventions: Good Participation in Activities Patient continues to require increased levels of assist with all mobility tasks. Patient able to come to standing and minimally shuffle LLE along ground toward HOB. Patient continues to be significantly below baseline functioning at this time. Patient continues to be recommended for subacute/SNF to improve strength, balance, endurance, increased ambulation distances with normalize gait pattern, and increased independence with functional task performance/mobility to prior level of function. Additional personal present during this visit: Lela Allred PRECAUTIONS Fall Risk, Weight Bearing Restrictions Ex-Fix RLE Right Lower Extremity Weight Bearing Status: NWB CURRENT HOSPITAL COURSE 64 y.o female admitted from outside hospital following fall, resulting in R periprosthetic proximal tibia fx, s/p R knee external fixator placement 05/03, OR early next week for ORIF Relevant Past Medical History: DM, HTN, RA, R TKA HOME LIVING Patient Lives With: Spouse Assistance Available: 24-Hour Entry To Home: Ramp Number Of Stairs To Bed/Bath: 0 Tub/Shower Type: tub shower Laundry: spouse can complete Equipment Owned: Shower Chair, Grab Bars- Shower, Rollator, Wheelchair- Manual, Walker- Wheeled PRIOR FUNCTIONAL LEVEL Within Functional Limits Patient independent [employer], ambulating without a device, drives SUBJECTIVE Patient pleasant and agreeable to PT session THERAPY DIAGNOSIS Muscle Weakness (generalized), Reduced mobility-other, General symptoms and signs-other TREATMENT INTERVENTIONS Therapeutic Exercise (76581), Therapeutic Activity (39841) Therapeutic Exercise (48292) Treatment Minutes: 14 $ Therapeutic Exercise (54555) Billed Units: 1 unit Patient completed LE strengthenoing (ankle pump, quad set, gluteal set, heel slide LLE only, hip abd/add to neutral, short arc quad LLE only, SLR, hip adductor squeeze) x 12 reps with mod amount of assist on RLE. Patient set up with ice to surgical hip and elevated lower extremity as needed. Therapeutic Activity (29687) Treatment Minutes: 9 $ Therapeutic Activity (45661) Billed Units: 1 unit cuing /assist for proper movements/techniques with bed mobility, scooting, transfers, and side shuffling on LLE toward HOB. Positioned for comfort and edema control at end of session. Timed Code Treatment (minutes): 23 Skilled Treatment Time (minutes): 23 TRAINING AND EDUCATION PROVIDED Assistive Device Use, Bed Mobility, Exercise Program, Positioning, Gait Pattern, Reduction of Deviations, Transfers, Precautions/Restrictions THERAPEUTIC SKILLS USED Cues for Sequencing/Proper Technique for Activity, Cuing Tactile, Cuing Verbal, Cuing Visual, Facilitation of Joint Range of Motion, Movement Facilitation, Physical Assist, Postural Alignment Correction FUNCTIONAL STATUS mobility performed during session in bold, other mobility completed during prior session and may no longer be correct or appropriate to complete. Bed Mobility Rolling: Maximal Assistance, Additional Information Supine To Sit: Minimal Assistance via long sit pivot, assist with RLE Sit to Supine: Minimal Assistance via reverse long sit pivot--assist with RLE Scooting: Minimal Assistance assist with RLE Transfers Sit To Stand: Moderate Assistance, Minimal Assistance cuing for proper UE support, NWB on RLE, powering up with LLE Stand To Sit: Moderate Assistance, Minimal Assistance assist with eccentric control, cuing for proper UE support, NWB on RLE Bed to Chair Moderate Assistance, Additional Information Bed To Chair Transfer Type: Stand Pivot Bed To Chair Transfer Equipment: Gait Belt, Wheeled Walker Gait Stairs BALANCE Static Sitting Balance: Good Dynamic Sitting Balance: Good Static Standing Balance: Fair Dynamic Standing Balance: Poor (more content not included)... Normal [facility] XR KNEE 2V AP/LAT RTon 05-07 XR KNEE 2V AP/LAT RT * * *Final Report* * * DATE OF EXAM: May 07 2024 4:52PM [place] 5207 - XR KNEE 2V AP/LAT RT / PROCEDURE REASON: ORIF TIBIAL PLATEAU * * * * Physician Interpretation * * * * EXAM TITLE: XR KNEE 2V AP/LAT RT DATE: 05/07/2024 COMPARISON: 05/03/2024 CLINICAL INDICATION/HISTORY: Pain, tibial plateau fracture TECHNIQUE: Intraoperative fluoroscopy FINDINGS: 2 minutes of intraoperative fluoroscopy time utilized during open reduction and internal fixation of a right proximal tibial fracture. 4 intraoperative spot films are submitted and show placement of a buttress plate along the proximal medial tibia. External fixator is in place. On an AP spot view, there is the suggestion of a possible nondisplaced fracture involving the proximal tibial shaft beginning near the level of the anterior buttress plate. Dedicated views of the tibia and fibula are recommended. IMPRESSION: 1. Fluoroscopy provided during open reduction and internal fixation of a proximal right tibial fracture. 2. On the AP spot film, there appears to be a nondisplaced fracture involving the proximal tibial shaft beginning at approximately the level of the inferior endplate. Digital Marketing Manager: CHERELLE Transcribe Date/Time: May 08 2024 7:32A Dictated by : FRANTZ AYON MD This examination was interpreted and the report reviewed and electronically signed by: FRANTZ AYON MD on May 08 2024 7:52AM EST [id number] Normal [facility] Basic metabolic 2000 panelon 05-06-2024 Anion gap [Moles/Vol] 9 mmol/L Normal 8-15 [facility] Comment on above: Order Comment: Speci men Type: BLOOD SPECIMENOrdering Facility: [facility] Address: [address] [place] [address] Performed By: #### 2 4321-2 ####[facility] [place] [facility] [id number] [place] [address] [place] Calcium [Mass/Vol] 8.7 mg/dL Normal 8.5-10.2 [facility] Comment on above: Order Comment: Speci men Type: BLOOD SPECIMENOrdering Facility: [facility] Address: [address] [place] [address] Performed By: #### 2 4321-2 ####[facility] [place] [facility]ORYCL[facility] [id number] [place] [address] [place] Chloride [Moles/Vol] 100 mmol/L Normal 98-107 [facility] Comment on above: Order Comment: Speci men Type: BLOOD SPECIMENOrdering Facility: [facility] Address: [address] [place] [address] Performed By: #### 2 4321-2 ####[facility] [place] [facility]ORYCL[facility] [id number] [place] [address] [place] CO2 [Moles/Vol] 28 mmol/L Normal 22-30 [facility] Comment on above: Order Comment: Speci men Type: BLOOD SPECIMENOrdering Facility: [facility] Address: [address] [place] [address] Performed By: #### 2 4321-2 ####[facility] [facility]ORYCL[facility] [id number] [place] [address] [place] Creatinine [Mass/Vol] 0.80 mg/dL Normal 0.58-0.96 [facility] Comment on above: Order Comment: Speci men Type: BLOOD SPECIMENOrdering Facility: [facility] Address: [address] [place] [address] Performed By: #### 2 4321-2 ####[facility] [id number] [place] [id number] [place] Creatinine and Glomerular filtration rate.predicted panel (S/P/Bld) 81 mL/min/1.73m??? Normal >=60 [facility] Comment on above: Order Comment: Nery vidales Type: BLOOD SPECIMENOrdering Facility: [facility] Address: [address] [place] [address] Result Comment: Sienna mated Glomerular Filtration Rate (eGFR) is calculated using the 2020 CKD-EPI creatinine equation. This equation utilizes serum creatinine, sex, and age as parameters. The creatinine assay has traceable calibration to isotope dilution-mass spectrometry. Refer to KDIGO guidelines for clinical interpretation. In patients with unstable renal function, e.g. those with acute kidney injury, the eGFR may not accurately reflect actual GFR. Performed By: #### 2 4321-2 ####[facility]PITALIA [id number] [place] [address] [place] Glucose [Mass/Vol] 95 mg/dL Normal 74-99 [facility] Comment on above: Order Comment: Nery vidales Type: BLOOD SPECIMENOrdering Facility: [facility] Address: [address] [place] [address] Result Comment: The [place] Diabetes Association (ADA) provides guidance for cutoff values for fasting glucose and random glucose. The ADA defines fasting as no caloric intake for at least 8 hours. Fasting plasma glucose results between 100 to 125 mg/dL indicate increased risk for diabetes (prediabetes). Fasting plasma glucose results greater than or equal to 126 mg/dL meet the criteria for diagnosis of diabetes. In the absence of unequivocal hyperglycemia, results should be confirmed by repeat testing. In a patient with classic symptoms of hyperglycemia or hyperglycemic crisis, random plasma glucose results greater than or equal to 200 mg/dL meet the criteria for diagnosis of diabetes. Reference: Standards of Medical Care in Diabetes 2016, [place] Diabetes Association. Diabetes Care. 2016.39(Suppl 1). Performed By: #### 2 4321-2 ####[facility] [place] [facility]ORYCL[facility] [id number] [address] [place] Potassium [Moles/Vol] 3.8 mmol/L Normal 3.7-5.1 [facility] Comment on above: Order Comment: Speci men Type: BLOOD SPECIMENOrdering Facility: [facility] Address: [address] [place] [address] Performed By: #### 2 4321-2 ####[facility] [facility]ORYCL[facility] [id number] [address] [place] Sodium [Moles/Vol] 137 mmol/L Normal 136-144 [facility] Comment on above: Order Comment: Speci men Type: BLOOD SPECIMENOrdering Facility: [facility] Address: [address] [place] [address] Performed By: #### 2 4321-2 ####[facility] [place] [facility]ORYCL[facility] [id number] [address] [place] Urea nitrogen [Mass/Vol] 10 mg/dL Normal 7-21 [facility] Comment on above: Order Comment: Speci men Type: BLOOD SPECIMENOrdering Facility: [facility] Address: [address] [place] [address] Performed By: #### 2 4321-2 ####[facility] [place] [facility]ORYCL[facility] [id number] [address] [place] CBC panel Auto (Bld)on 05-06 Erythrocyte distribution width (RBC) [Ratio] 14.2 % Normal 11.5-15.0 [facility] Comment on above: Order Comment: Speci men Type: BLOOD SPECIMENOrdering Facility: [facility] Address: [address] [place] [address] Performed By: #### 5 8410-2 ####[facility] [place] [place] [facility]ORYCL[facility] [id number] [address] [place] Hematocrit (Bld) [Volume fraction] 32.3 % Low 36.0-46.0 [facility] Comment on above: Order Comment: Speci men Type: BLOOD SPECIMENOrdering Facility: [facility] Address: [address] [place] [address] Performed By: #### 5 8410-2 ####[facility] [facility]ORYCL[facility] [id number] [address] Hemoglobin (Bld) [Mass/Vol] 10.0 g/dL Low 11.5-15.5 [facility] Comment on above: Order Comment: Speci men Type: BLOOD SPECIMENOrdering Facility: [facility] Address: [address] [place] [address] Performed By: #### 5 8410-2 ####[facility] [facility]ORYCLIA [id number] [address] OF [facility] MCH (RBC) [Entitic mass] 29.2 pg Normal 26.0-34.0 [facility] Comment on above: Order Comment: Speci men Type: BLOOD SPECIMENOrdering Facility: [facility] Address: [address] [place] [address] Performed By: #### 5 8410-2 ####[facility] [place] [facility]ORYCL[facility] [id number] [address] MCHC (RBC) [Mass/Vol] 31.0 g/dL Normal 30.5-36.0 [facility] Comment on above: Order Comment: Speci men Type: BLOOD SPECIMENOrdering Facility: [facility] Address: [address] [place] [address] Performed By: #### 5 8410-2 ####[facility] [place] [facility]ORYCL[facility] [id number] [address] STATES [place] [facility] MCV (RBC) [Entitic vol] 94.2 fL Normal 80.0-100.0 [facility] Comment on above: Order Comment: Speci men Type: BLOOD SPECIMENOrdering Facility: [facility] Address: [address] [place] [address] Performed By: #### 5 8410-2 ####[facility] [place] [facility]ORYCL[facility] [id number] [address] [place] Nucleated RBC (Bld) [#/Vol] 10*3/uL Normal <0.01 [facility] Comment on above: Order Comment: Speci men Type: BLOOD SPECIMENOrdering Facility: [facility] Address: [address] [place] [address] Performed By: #### 5 8410-2 ####[facility] [place] [facility]ORYCLIA [id number] [place] [address] [place] Platelet mean volume (Bld) [Entitic vol] 11.5 fL Normal 9.0-12.7 [facility] Comment on above: Order Comment: Speci men Type: BLOOD SPECIMENOrdering Facility: [facility] Address: [address] [place] [address] Performed By: #### 5 8410-2 ####[facility] [place] [facility]ORYCLIA [id number] [place] [address] [place] Platelets (Bld) [#/Vol] 214 10*3/uL Normal 150-400 [facility] Comment on above: Order Comment: Speci men Type: BLOOD SPECIMENOrdering Facility: [facility] Address: [address] [place] [address] Performed By: #### 5 8410-2 ####[facility] [place] [place] [facility]ORYCL[facility] [id number] [place] [address] [place] RBC (Bld) [#/Vol] 3.43 10*6/uL Low 3.90-5.20 [facility] Comment on above: Order Comment: Speci men Type: BLOOD SPECIMENOrdering Facility: [facility] Address: [address] [place] [address] Performed By: #### 5 8410-2 ####[facility] [place] [place] [facility]ORYCL[facility] [id number] [place] [address] [place] WBC (Bld) [#/Vol] 8.79 10*3/uL Normal 3.70-11.00 [facility] Comment on above: Order Comment: Speci men Type: BLOOD SPECIMENOrdering Facility: [facility] Address: [address] [place] [address] Performed By: #### 5 8410-2 ####[facility] [place] [place] [facility]ATORYCLIA [id number] [address] [place] [facility] THERAPY NTon 05-06-2024 THERAPY NT HNO ID: [id number] Author: JAVY PERSAUD PTA Service: Physical Therapy Author Type: Machine Sole Leveler Type: Therapy (PT/OT/Speech/Resp) Filed: 05/06/2024 10:08 Note Text: -- Attestation signed by Aryan Valles, PT at 05/06/2024 1:04 PM I reviewed and agree with the assessment as documented above. SIGNATURE: Aryan Valles, PT DATE: May 06, 2024 TIME: 1:04 PM -- Physical Therapy Treatment Summary SERVICE DATE: 05/06/2024 SERVICE TIME: 0935 to 1000 ROOM: [place] [address] PT 6 Clicks Score: 12 DISCHARGE RECOMMENDATIONS Subacute/SNF Recommended Discharge Disposition Comments: Patient functioning below baseline, recommend SNF at discharge to improve strength and optimize functional independence Recommended Discharge Disposition Due to: Functional deficits requiring ongoing therapy service prior to discharge home., Functional status decline ASSESSMENT Response to Therapy Interventions: Good Participation in Activities Patient continues to require increased levels of assist with all mobility tasks. Patient able to stand pivot from bed to chair this session--unable to take hop steps. Continues to be well below baseline functioning at this time. Patient continues to be recommended for subacute/SNF to improve strength, balance, endurance, increased ambulation distances with normalize gait pattern, and increased independence with functional task performance/mobility to prior level of function. Additional personal present during this visit: Lela Allred PRECAUTIONS Fall Risk, Weight Bearing Restrictions Ex-Fix RLE Right Lower Extremity Weight Bearing Status: NWB CURRENT HOSPITAL COURSE 64 y.o female admitted from outside hospital following fall, resulting in R periprosthetic proximal tibia fx, s/p R knee external fixator placement 05/03, OR early next week for ORIF Relevant Past Medical History: DM, HTN, RA, R TKA HOME LIVING Patient Lives With: Spouse Assistance Available: 24-Hour Entry To Home: Ramp Number Of Stairs To Bed/Bath: 0 Tub/Shower Type: tub shower Laundry: spouse can complete Equipment Owned: Shower Chair, Grab Bars- Shower, Rollator, Wheelchair- Manual, Walker- Wheeled PRIOR FUNCTIONAL LEVEL Within Functional Limits Patient independent [employer], ambulating without a device, drives SUBJECTIVE Patient pleasant and agreeable to PT session THERAPY DIAGNOSIS Muscle Weakness (generalized), Reduced mobility-other, General symptoms and signs-other TREATMENT INTERVENTIONS Therapeutic Exercise (79240), Therapeutic Activity (63099) Therapeutic Exercise (70440) Treatment Minutes: 13 $ Therapeutic Exercise (41686) Billed Units: 1 unit Patient completed BLE strengthening(ankle pump, quad set, gluteal set, heel slide LLE only, hip abd/add to neutral, short arc quad LLE only, SLR, hip adductor squeeze) x 10 reps with moderate amount of assist on RLE Patient set up with ice to surgical LE and elevated lower extremity as needed. Therapeutic Activity (12234) Treatment Minutes: 12 $ Therapeutic Activity (93621) Billed Units: 1 unit patient educated on NWB on RLE, cuing/assist for proper movements/techniques with bed mobility, scooting, transfers, and pivot steps from bed to chair, cuing for NWB on RLE at all times. Positioned for comfort at end of session. Chair alarm on. Timed Code Treatment (minutes): 25 Skilled Treatment Time (minutes): 25 TRAINING AND EDUCATION PROVIDED Assistive Device Use, Bed Mobility, Exercise Program, Positioning, Precautions/Restrictions, Transfers THERAPEUTIC SKILLS USED Cues for Sequencing/Proper Technique for Activity, Cuing Tactile, Cuing Verbal, Cuing Visual, Movement Facilitation, Management of Critical Lines, Tubes and/or Drains, Physical Assist, Postural Alignment Correction FUNCTIONAL STATUS mobility performed during session in bold, other mobility completed during prior session and may no longer be correct or appropriate to complete. Bed Mobility Rolling: Maximal Assistance, Additional Information Supine To Sit: Minimal Assistance via long sit pivot, assist with RLE Sit to Supine: Moderate Assistance, Additional Information Scooting: Minimal Assistance, Additional Information assist with RLE Transfers Sit To Stand: Moderate Assistance, Additional Information cuing for proper UE support, NWB on RLE, powering up with LLE Stand To Sit: Moderate Assistance, Additional Information assist with eccentric control, cuing for proper UE support, NWB on RLE Bed to Chair Moderate Assistance, Additional Information Bed To Chair Transfer Type: Stand Pivot Bed To Chair Transfer Equipment: Gait Belt, Wheeled Walker Gait Stairs BALANCE Static Sitting Balance: Good Dynamic Sitting Balance: Good Static Standing Balance: Fair Dynamic Sta (more content not included)... Normal [facility] Basic metabolic 2000 panelon 05-05-2024 Anion gap [Moles/Vol] 10 mmol/L Normal 8-15 [facility] Comment on above: Order Comment: Speci men Type: BLOOD SPECIMENOrdering Facility: [facility] Address: [address] [place] [address] Performed By: #### 2 4321-2 ####[facility] [place] [place] [facility]CL[facility] [id number] [place] [address] [place] Calcium [Mass/Vol] 8.4 mg/dL Low 8.5-10.2 [facility] Comment on above: Order Comment: Speci men Type: BLOOD SPECIMENOrdering Facility: [facility] Address: [address] [place] [address] Performed By: #### 2 4321-2 ####[facility] [place] [place] [facility]ORYCL[facility] [id number] [place] [address] [place] Chloride [Moles/Vol] 101 mmol/L Normal 98-107 [facility] Comment on above: Order Comment: Speci men Type: BLOOD SPECIMENOrdering Facility: [facility] Address: [address] [place] [address] Performed By: #### 2 4321-2 ####[facility] [place] [place] [facility]ORYCLIA [id number] [place] [address] [place] CO2 [Moles/Vol] 27 mmol/L Normal 22-30 [facility] Comment on above: Order Comment: Specmonica vidales Type: BLOOD SPECIMENOrdering Facility: [facility] Address: [address] [place] [address] Performed By: #### 2 4321-2 ####[facility] [id number] [place] [id number] [place] Creatinine [Mass/Vol] 0.90 mg/dL Normal 0.58-0.96 [facility] Comment on above: Order Comment: Specmonica vidales Type: BLOOD SPECIMENOrdering Facility: [facility] Address: [address] [place] [address] Performed By: #### 2 4321-2 ####[facility] [id number] [address] Creatinine and Glomerular filtration rate.predicted panel (S/P/Bld) 71 mL/min/1.73m??? Normal >=60 [facility] Comment on above: Order Comment: Cjmonica vidales Type: BLOOD SPECIMENOrdering Facility: [facility] Address: [address] [place] [address] Result Comment: Sienna mated Glomerular Filtration Rate (eGFR) is calculated using the 2020 CKD-EPI creatinine equation. This equation utilizes serum creatinine, sex, and age as parameters. The creatinine assay has traceable calibration to isotope dilution-mass spectrometry. Refer to KDIGO guidelines for clinical interpretation. In patients with unstable renal function, e.g. those with acute kidney injury, the eGFR may not accurately reflect actual GFR. Performed By: #### 2 4321-2 ####[facility] [place] [place] [facility]ORYCL[facility] [id number] [address] [place] Glucose [Mass/Vol] 95 mg/dL Normal 74-99 [facility] Comment on above: Order Comment: Nery vidales Type: BLOOD SPECIMENOrdering Facility: [facility] Address: [address] [place] [address] Result Comment: The [place] Diabetes Association (ADA) provides guidance for cutoff values for fasting glucose and random glucose. The ADA defines fasting as no caloric intake for at least 8 hours. Fasting plasma glucose results between 100 to 125 mg/dL indicate increased risk for diabetes (prediabetes). Fasting plasma glucose results greater than or equal to 126 mg/dL meet the criteria for diagnosis of diabetes. In the absence of unequivocal hyperglycemia, results should be confirmed by repeat testing. In a patient with classic symptoms of hyperglycemia or hyperglycemic crisis, random plasma glucose results greater than or equal to 200 mg/dL meet the criteria for diagnosis of diabetes. Reference: Standards of Medical Care in Diabetes 2016, [place] [employer]. Diabetes Care. 2016.39(Suppl 1). Performed By: #### 2 4321-2 ####[facility] [place] [place] [facility]ATORYCL[facility] [id number] [address] [facility] Potassium [Moles/Vol] 4.4 mmol/L Normal 3.7-5.1 [facility] Comment on above: Order Comment: Speci men Type: BLOOD SPECIMENOrdering Facility: [facility] Address: [address] [place] [address] Performed By: #### 2 4321-2 ####[facility] [id number] [address] Sodium [Moles/Vol] 138 mmol/L Normal 136-144 [facility] Comment on above: Order Comment: Speci men Type: BLOOD SPECIMENOrdering Facility: [facility] Address: [address] [place] [address] Performed By: #### 2 4321-2 ####[facility] [id number] [address] Urea nitrogen [Mass/Vol] 8 mg/dL Normal 7-21 [facility] Comment on above: Order Comment: Speci men Type: BLOOD SPECIMENOrdering Facility: [facility] Address: [address] [place] [address] Performed By: #### 2 4321-2 ####[facility] [place] [place] [facility]ORYCLIA [id number] [address] CBC panel Auto (Bld)on 05-05 Erythrocyte distribution width (RBC) [Ratio] 14.2 % Normal 11.5-15.0 [facility] Comment on above: Order Comment: Speci men Type: BLOOD SPECIMENOrdering Facility: [facility] Address: [address] [place] [address] Performed By: #### 6 00-7 #### [facility] CLIA [id number] [address] Hematocrit (Bld) [Volume fraction] 30.4 % Low 36.0-46.0 [facility] Comment on above: Order Comment: Speci men Type: BLOOD SPECIMENOrdering Facility: [facility] Address: [address] [place] [address] Performed By: #### 6 00-7 #### [facility] CLIA [id number] [address] [facility] Hemoglobin (Bld) [Mass/Vol] 9.9 g/dL Low 11.5-15.5 [facility] Comment on above: Order Comment: Speci men Type: BLOOD SPECIMENOrdering Facility: [facility] Address: [address] [place] [address] Performed By: #### 6 -7 #### [facility] [place] [place] [facility] CLIA [id number] [address] MCH (RBC) [Entitic mass] 30.1 pg Normal 26.0-34.0 [facility] Comment on above: Order Comment: Speci men Type: BLOOD SPECIMENOrdering Facility: [facility] Address: [address] [place] [address] Performed By: #### 6 00-7 #### [facility] CLIA [id number] [address] [place] MCHC (RBC) [Mass/Vol] 32.6 g/dL Normal 30.5-36.0 [facility] Comment on above: Order Comment: Speci men Type: BLOOD SPECIMENOrdering Facility: [facility] Address: [address] [place] [address] Performed By: #### 6 00-7 #### [facility] CLIA [id number] [address] MCV (RBC) [Entitic vol] 92.4 fL Normal 80.0-100.0 [facility] Comment on above: Order Comment: Speci men Type: BLOOD SPECIMENOrdering Facility: [facility] Address: [address] [place] [address] Performed By: #### 6 -7 #### [facility] [place] [place] [facility] CLIA [id number] [address] [place] Nucleated RBC (Bld) [#/Vol] 10*3/uL Normal <0.01 [facility] Comment on above: Order Comment: Speci men Type: BLOOD SPECIMENOrdering Facility: [facility] Address: [address] [place] [address] Performed By: #### 6 -7 #### [facility] [place] [place] [facility] CLIA [id number] [address] [place] [address] [place] Platelet mean volume (Bld) [Entitic vol] 10.7 fL Normal 9.0-12.7 [facility] Comment on above: Order Comment: Speci men Type: BLOOD SPECIMENOrdering Facility: [facility] Address: [address] [place] [address] Performed By: #### 6 -7 #### [facility] [place] [place] [facility] CLIA [id number] [address] [place] Platelets (Bld) [#/Vol] 193 10*3/uL Normal 150-400 [facility] Comment on above: Order Comment: Speci men Type: BLOOD SPECIMENOrdering Facility: [facility] Address: [address] [place] [address] Performed By: #### 6 -7 #### [facility] [place] [place] [facility] CLIA [id number] [address] [place] [address] [place] RBC (Bld) [#/Vol] 3.29 10*6/uL Low 3.90-5.20 [facility] Comment on above: Order Comment: Speci men Type: BLOOD SPECIMENOrdering Facility: [facility] Address: [address] [place] [address] Performed By: #### 6 00-7 #### [facility] CLIA [id number] [address] [place] [address] [place] WBC (Bld) [#/Vol] 10.83 10*3/uL Normal 3.70-11.00 [facility] Comment on above: Order Comment: Speci men Type: BLOOD SPECIMENOrdering Facility: [facility] Address: [address] [place] [address] Performed By: #### 6 #### [facility] [place] [place] [facility] CLIA [id number] [address] [place] [id number] [place] NURSING PROGon 05-05-2024 NURSING PROG HNO ID: [id number] Author: THEA ZHONG RN Service: Nursing Author Type: Registered Nurse Type: Nursing Progress Note Filed: 05/05/2024 12:42 Note Text: Patient temperature increased to 101 F, RLE with external fixator warm. Dr. Mil Carson notified. Ice pack applied, will continue to monitor, and no new interventions at this time. Normal [facility] THERAPY NTon 05-05-2024 THERAPY NT HNO ID: [id number] Author: YANDY BARRY OTR/L Service: Occupational Therapy Author Type: Occupational Therapist Type: Therapy (PT/OT/Speech/Resp) Filed: 05/05/2024 10:06 Note Text: Occupational Therapy Evaluation Summary SERVICE DATE: 05/05/2024 SERVICE TIME: 900 to 923 ROOM: [place] [address] OT 6 Clicks Score: 13 DISCHARGE RECOMMENDATIONS Subacute/SNF Recommended Discharge Disposition Due to: Functional deficits requiring ongoing therapy service prior to discharge home., ADL impairment ASSESSMENT Response to Therapy Interventions: Good Participation in Activities PRECAUTIONS Fall Risk, Weight Bearing Restrictions Ex-Fix RLE Right Lower Extremity Weight Bearing Status: NWB CURRENT HOSPITAL COURSE 64 y.o female admitted from outside hospital following fall, resulting in R periprosthetic proximal tibia fx, s/p R knee external fixator placement 05/03, OR early next week for ORIF Relevant Past Medical History: DM, HTN, RA, R TKA HOME LIVING Patient Lives With: Spouse Assistance Available: 24-Hour Entry To Home: Ramp Number Of Stairs To Bed/Bath: 0 Tub/Shower Type: tub shower Laundry: spouse can complete Equipment Owned: Shower Chair, Grab Bars- Shower, Rollator, Wheelchair- Manual, Walker- Wheeled PRIOR FUNCTIONAL LEVEL Within Functional Limits Patient independent [employer], ambulating without a device, drives Baseline Cognition: Oriented to self, Oriented to place, Oriented to time, Oriented to situation SUBJECTIVE agreeable to session COGNITION Responsiveness: Alert Follows Commands: 2-step Commands Executive Function Deficits: Safety Awareness THERAPY DIAGNOSIS Reduced mobility-other, Decreased activities of daily living (ADL), Muscle Weakness (generalized), General symptoms and signs-other TREATMENT INTERVENTIONS Evaluation, Therapeutic Activity (29346) Timed Code Treatment (minutes): 8 Skilled Treatment Time (minutes): 23 $ Evaluation - Moderate (94373) Billed Units: 1 unit Therapeutic Activity (33248) Treatment Minutes: 8 $ Therapeutic Activity (19367) Billed Units: 1 unit TRAINING AND EDUCATION PROVIDED Bed Mobility, Discharge Planning, Disease Specific Education, Precautions/Restrictions, Role of Occupational Therapy, Safety/Judgment, Sitting Balance to Improve [place] with ADLs/Self-Care, Treatment Protocol, Positioning THERAPEUTIC SKILLS USED Activity Dosing, Cues for Sequencing/Proper Technique for Activity, Cuing Tactile, Cuing Verbal, Cuing Visual, Physical Assist FUNCTIONAL STATUS Activities of Daily Living Assist Level Additional Information Feeding Set Up Grooming Stand By Assistance Bathing Upper Body Minimal Assistance Bathing Lower Body Total Assistance Dressing Upper Body Minimal Assistance Dressing Lower Body Total Assistance Toileting Total Assistance Mobility Assist Level Additional Information Bed Mobility Supine To Sit: Maximal Assistance Step by step direction to move each LE closer to the side of bed while engaging core in order to sit upright, requires increased assistance with surgical leg. Challenged patient to sit edge of bed for 6 minutes, propped affected leg on garbage can to help control pain. Educated on importance of progressing mobility. Also educated on swelling prevention. Sit To Supine: Maximal Assistance Increased time and moderate direction for effective sequence to get back into bed. Instructed patient on the benefit and value of receiving continued OT services at d/c to increased independence with self care and functional transfers. Sit to Stand Stand to Sit Bed to Chair Toilet/Commode Shower Functional Mobility STRENGTH Right Upper Extremity Strength Comments: 4-/5 Left Upper Extremity Strength Comments: 4-/5 ACTIVITY TOLERANCE Sitting Activity: Sat EOB Sitting Activity Tolerance (in minutes): 6 BALANCE Static Sitting Balance: Fair Dynamic Sitting Balance: Fair GOALS Grooming with: Independent Upper Body Bathing with: Stand By Assistance Upper Body Dressing with: Stand By Assistance Lower Body Bathing with: Minimal Assistance Lower Body Dressing with: Minimal Assistance Toilet Hygiene with: Minimal Assistance Chair Transfer with: Moderate Assistance Toilet Transfer with: Moderate Assistance (bedside commode, stand-pivot) Demonstrate Competence with Education with: Stand By Assistance (safety, fall prevention, adhere to NWB RLE) Transfer: patient will complete sit to stand with moderate assistance 2/2 times Rehab Potential: Good PLAN OT Frequency: 2 Times Per Week Treatment Interventions: Education, Self Care/Home Management, Energy Conservation Training, Strengthening, Functional Mobility Training, Balance Training Plan for Next Visit: Bathing Training, Dressing Training, Chair/Commode Transfer Training SIGNATURE: KRANTHI Mohr/Twyla PATIENT NAME: Zackery Nunez DATE: May 05, 2024 TIME: 10:03 AM Normal [facility] Basic metabolic 2000 panelon 05-04-2024 Anion gap [Moles/Vol] 10 mmol/L Normal 8-15 [facility] Comment on above: Order Comment: Speci men Type: BLOOD SPECIMENOrdering Facility: [facility] Address: [address] [place] [address] Performed By: #### 6 00-7 #### [facility] [place] [place] [facility] CLIA [id number] [address] [place] [address] [place] Calcium [Mass/Vol] 8.4 mg/dL Low 8.5-10.2 [facility] Comment on above: Order Comment: Speci men Type: BLOOD SPECIMENOrdering Facility: [facility] Address: [address] [place] [address] Performed By: #### 6 00-7 #### [facility] [place] [facility] CLIA [id number] [address] [place] [address] [place] Chloride [Moles/Vol] 100 mmol/L Normal 98-107 [facility] Comment on above: Order Comment: Speci men Type: BLOOD SPECIMENOrdering Facility: [facility] Address: [address] [place] [address] Performed By: #### 6 00-7 #### [facility] [place] [place] [facility] CLIA [id number] [address] STATES [facility] CO2 [Moles/Vol] 23 mmol/L Normal 22-30 [facility] Comment on above: Order Comment: Speci men Type: BLOOD SPECIMENOrdering Facility: [facility] Address: [address] [place] [address] Performed By: #### 6 00-7 #### [facility] [place] CLIA [id number] [address] [place] [facility] Creatinine [Mass/Vol] 0.86 mg/dL Normal 0.58-0.96 [facility] Comment on above: Order Comment: Speci men Type: BLOOD SPECIMENOrdering Facility: [facility] Address: [address] [place] [address] Performed By: #### 6 00-7 #### [facility] CLIA [id number] [address] Creatinine and Glomerular filtration rate.predicted panel (S/P/Bld) 75 mL/min/1.73m??? Normal >=60 [facility] Comment on above: Order Comment: Speci men Type: BLOOD SPECIMENOrdering Facility: [facility] Address: [address] [place] [address] Result Comment: Sienna mated Glomerular Filtration Rate (eGFR) is calculated using the 2020 CKD-EPI creatinine equation. This equation utilizes serum creatinine, sex, and age as parameters. The creatinine assay has traceable calibration to isotope dilution-mass spectrometry. Refer to KDIGO guidelines for clinical interpretation. In patients with unstable renal function, e.g. those with acute kidney injury, the eGFR may not accurately reflect actual GFR. Performed By: #### 6 00-7 #### [facility] [place] CLIA [id number] [address] [place] [facility] Glucose [Mass/Vol] 161 mg/dL High 74-99 [facility] Comment on above: Order Comment: Speci men Type: BLOOD SPECIMENOrdering Facility: [facility] Address: [address] [place] [address] Result Comment: The [place] Diabetes Association (ADA) provides guidance for cutoff values for fasting glucose and random glucose. The ADA defines fasting as no caloric intake for at least 8 hours. Fasting plasma glucose results between 100 to 125 mg/dL indicate increased risk for diabetes (prediabetes). Fasting plasma glucose results greater than or equal to 126 mg/dL meet the criteria for diagnosis of diabetes. In the absence of unequivocal hyperglycemia, results should be confirmed by repeat testing. In a patient with classic symptoms of hyperglycemia or hyperglycemic crisis, random plasma glucose results greater than or equal to 200 mg/dL meet the criteria for diagnosis of diabetes. Reference: Standards of Medical Care in Diabetes 2016, [place] [employer]. Diabetes Care. 2016.39(Suppl 1). Performed By: #### 6 00-7 #### [facility] CLIA [id number] [address] [place] [facility] Potassium [Moles/Vol] 3.9 mmol/L Normal 3.7-5.1 [facility] Comment on above: Order Comment: Nery vidales Type: BLOOD SPECIMENOrdering Facility: [facility] Address: [address] [place] [address] Performed By: #### 6 -7 #### [facility] CLIA [id number] [address] [place] Sodium [Moles/Vol] 133 mmol/L Low 136-144 [facility] Comment on above: Order Comment: Nery vidales Type: BLOOD SPECIMENOrdering Facility: [facility] Address: [address] [place] [address] Performed By: #### 6 -7 #### [facility] [place] CLIA [id number] [address] [place] Urea nitrogen [Mass/Vol] 10 mg/dL Normal 7-21 [facility] Comment on above: Order Comment: Cji men Type: BLOOD SPECIMENOrdering Facility: [facility] Address: [address] [place] [address] Performed By: #### 6 00-7 #### [facility] CLIA [id number] [address] [place] CBC panel Auto (Bld)on 05-04 Erythrocyte distribution width (RBC) [Ratio] 14.3 % Normal 11.5-15.0 [facility] Comment on above: Order Comment: Speci men Type: BLOOD SPECIMENOrdering Facility: [facility] Address: [address] [place] [address] Performed By: #### 5 8410-2 ####[facility] [place] [place] [facility] [id number] [address] [facility] Hematocrit (Bld) [Volume fraction] 30.3 % Low 36.0-46.0 [facility] Comment on above: Order Comment: Speci men Type: BLOOD SPECIMENOrdering Facility: [facility] Address: [address] [place] [address] Performed By: #### 5 8410-2 ####[facility] [place] [place] [facility] [id number] [address] [place] Hemoglobin (Bld) [Mass/Vol] 9.7 g/dL Low 11.5-15.5 [facility] Comment on above: Order Comment: Speci men Type: BLOOD SPECIMENOrdering Facility: [facility] Address: [address] [place] [address] Performed By: #### 5 8410-2 ####[facility] [place] [place] [facility] [id number] [address] [place] MCH (RBC) [Entitic mass] 29.4 pg Normal 26.0-34.0 [facility] Comment on above: Order Comment: Speci men Type: BLOOD SPECIMENOrdering Facility: [facility] Address: [address] [place] [address] Performed By: #### 5 8410-2 ####[facility] [place] [place] [facility] [id number] [address] [place] MCHC (RBC) [Mass/Vol] 32.0 g/dL Normal 30.5-36.0 [facility] Comment on above: Order Comment: Speci men Type: BLOOD SPECIMENOrdering Facility: [facility] Address: [address] [place] [address] Performed By: #### 5 8410-2 ####[facility] [place] [place] [facility] [id number] [address] MCV (RBC) [Entitic vol] 91.8 fL Normal 80.0-100.0 [facility] Comment on above: Order Comment: Speci men Type: BLOOD SPECIMENOrdering Facility: [facility] Address: [address] [place] [address] Performed By: #### 5 8410-2 ####[facility] [place] [place] [facility] [id number] [address] [place] Nucleated RBC (Bld) [#/Vol] 10*3/uL Normal <0.01 [facility] Comment on above: Order Comment: Speci men Type: BLOOD SPECIMENOrdering Facility: [facility] Address: [address] [place] [address] Performed By: #### 5 8410-2 ####[facility] [place] [place] [facility] [id number] [address] Platelet mean volume (Bld) [Entitic vol] 10.8 fL Normal 9.0-12.7 [facility] Comment on above: Order Comment: Speci men Type: BLOOD SPECIMENOrdering Facility: [facility] Address: [address] [place] [address] Performed By: #### 5 8410-2 ####[facility] [place] [place] [facility] [id number] [address] Platelets (Bld) [#/Vol] 209 10*3/uL Normal 150-400 [facility] Comment on above: Order Comment: Speci men Type: BLOOD SPECIMENOrdering Facility: [facility] Address: [address] [place] [address] Performed By: #### 5 8410-2 ####[facility] [place] [facility]ORATORYCLIA [id number] [address] [place] RBC (Bld) [#/Vol] 3.30 10*6/uL Low 3.90-5.20 [facility] Comment on above: Order Comment: Speci men Type: BLOOD SPECIMENOrdering Facility: [facility] Address: [address] [id number] Performed By: #### 5 8410-2 ####[facility] LABORATORYCLIA [id number] [place] [address] [facility] [place] WBC (Bld) [#/Vol] 14.08 10*3/uL High 3.70-11.00 [facility] Comment on above: Order Comment: Speci men Type: BLOOD SPECIMENOrdering Facility: [facility] Address: [address] [place], [place] [id number] Performed By: #### 5 8410-2 ####[facility] LABORATORYCLIA [id number] [place] [address] [facility] CONSULT PROGon 05-04-2024 CONSULT PROG HNO ID: [id number] Author: KELLI DE LA TORRE MD Service: Hospital Medicine Author Type: Physician Type: Consult Progress Note Filed: 05/04/2024 14:26 Note Text: DEPARTMENT OF HOSPITAL MEDICINE CONSULT PROGRESS NOTE SERVICE DATE: 05/03/2024 Primary Care Physician: Mikayla Strange MD NIGHT AND WEEKEND COVERAGE: [place] COVERAGE: From 7am - 7pm, please call primary team After 7pm, please call cross cover pager #[phone] Subjective INTERVAL HPI: 64 year old female with PMH of hypertension, diet-controlled diabetes, rheumatoid arthritis, fibromyalgia and chronic back pain who presents with right knee pain. Patient reports she was on her deck trying to get near a cat she saw outside when her right leg broke through the deck floorboard. She reports severe knee pain following this. During my evaluation patient is resting comfortably in bed, external fixator in place on right knee. Complaining of some soreness in her right knee and radiating down her right leg. No other acute complaints. Is the Patient Experiencing Pain: No: 0 on a scale of 0 to 10 MEDICATIONS: Reviewed Current Facility-Administered Medications Medication Dose Route Frequency amitriptyline 10 mg tab(s) (ELAVIL) 10 mg ORAL AT BEDTIME citalopram 40 mg tab(s) (CeleXA) 40 mg ORAL DAILY promethazine 25 mg tab(s) (PHENERGAN) 25 mg ORAL q 6 H PRN SUMAtriptan 50 mg tab(s) (IMITREX) 50 mg ORAL PRN hyoscyamine sublingual 0.125 mg tab(s) (LEVSIN SL) 0.125 mg SUBLINGUAL q 4 H PRN atorvastatin 10 mg tab(s) (LIPITOR) 10 mg ORAL DAILY busPIRone 30 mg tab(s) (BUSPAR) 30 mg ORAL BID estradiol 3 g vaginal cream (ESTRACE) [id number] Applicator VAGINAL DAILY NaCl 0.9% iv flush bag 20 mL INTRAVENOUS PRN ondansetron (PF) 4 mg injection (ZOFRAN) 4 mg INTRAVENOUS q 6 H PRN melatonin 3 mg tab(s) 3 mg ORAL AT BEDTIME PRN acetaminophen 1,000 mg tab(s) (TYLENOL) 1,000 mg ORAL q [address] 40 mg tab(s) (PROTONIX) 40 mg ORAL DAILY (6 AM) senna-docusate 8.6-50 mg 1 tablet (SENNA-S) 1 tablet ORAL BID gabapentin 900 mg cap(s) (NEURONTIN) 900 mg ORAL DAILY AT 12 PM gabapentin 600 mg cap(s) (NEURONTIN) 600 mg ORAL AT BEDTIME buprenorphine transdermal patch 20 mcg/hr (BUTRANS) 1 Patch TRANSDERMAL 1/WK [START ON 05/08/2024] buprenorphine - REMOVE PATCH OTHER 1/WK And buprenorphine - VERIFY PATCH OTHER q 8 H oxyCODONE IR 5-10 mg tab(s) (ROXICODONE) 5-10 mg ORAL q 4 H PRN HYDROmorphone 0.5 mg injection (DILAUDID) 0.5 mg INTRAVENOUS q 3 H PRN calcium-cholecalciferol (D3) 2 tablet tab(s) (OSCAL+D 250) 2 tablet ORAL BID senna 17.2 mg tab(s) (SENOKOT) 17.2 mg ORAL AT BEDTIME enoxaparin 40 mg injection (LOVENOX) 40 mg SUBCUTANEOUS q 24 HR lisinopril 10 mg tab(s) (ZESTRIL) 10 mg ORAL DAILY Objective PHYSICAL EXAM: BP 108/52 Pulse 76 Temp (Src) 99.3 (Oral) Resp 18 Ht 5' 5 (1.65m) Wt 200 lb (90.7kg) SpO2 98% BMI 33.28 kg/(m2). O2 Therapy: Room Air Physical Exam Performed: GENERAL: Alert, no distress, cooperative SKIN: Skin color, texture, turgor normal. No rashes or lesions. HEAD/SINUSES: No significant findings LUNGS: Lungs clear to auscultation, Good diaphragmatic excursion CARDIAC: Normal S1 and S2; no rubs, murmurs, or gallops ABDOMEN: Abdomen soft, non-tender, BS normal, No masses or organomegaly EXTREMITIES: Right lower extremity with external fixator, C/D/I NEURO: Exam deferred Lines, Drains, and Airways Line Duration Peripheral 05/02/24 External Facility Right Antecubital 20 Gauge 2 days Drain Duration External Collection Device 05/03/24 1600 <1 day Reviewed lines and needs to be continued: REASONS: Difficulty in obtaining/maintaining access DATA: Diagnostic tests reviewed for today's visit: Most recent labs and imaging results. Most recent EKG Impression/Recommendations #Periprosthetic fracture around prosthetic knee, initial encounter (POA: Yes) -Per primary team, status post right knee external fixator for periprosthetic tibial fracture -Plan for repeat OR sometime next week #Preoperative evaluation -RCRI score -0 indicating class I risk-recommend proceeding with surgery as indicated with understanding underlying surgical risks #HTN, hyperlipidemia -Resumed on home lisinopril and atorvastatin, monitor vitals. #Chronic pain -Pain management consulted and is following, Butrans patches ordered #Anxiety, fibromyalgia -Continue Neurontin, Celexa, BuSpar, Elavil #Obesity Class I (BMI 30-34.9) BMI 33, recommend lifestyle modification and weight loss #Leukocytosis WBC elevated to 14, likely reactive to surgery. Afebrile, no signs of infection- Follow-up CBC in a.m. VTE PROPHYLAXIS: As per primary team Disposition: To be determined Plan of care discussed with: Provider, RN, Patient SIGNATURE: Kelli De La Torre MD PATIENT NAME: Zackery Nunez DATE: May 04, 2024 TIME: 2:20 PM etx [id number] [facility] THERAPY NTon 05-04-2024 THERAPY NT HNO ID: [id number] Author: ARYAN VALLES PT Service: Physical Therapy Author Type: Physical Therapist Type: Therapy (PT/OT/Speech/Resp) Filed: 05/04/2024 09:37 Note Text: Physical Therapy Evaluation Summary SERVICE DATE: 05/04/2024 SERVICE TIME: 819 to 852 ROOM: [id number] PT 6 Clicks Score: 8 DISCHARGE RECOMMENDATIONS Subacute/SNF Recommended Discharge Disposition Comments: Patient functioning below baseline, recommend SNF at discharge to improve strength and optimize functional independence Recommended Discharge Disposition Due to: Functional deficits requiring ongoing therapy service prior to discharge home., Functional status decline ASSESSMENT Response to Therapy Interventions: Good Participation in Activities, Low Activity Tolerance, Pain, Requires Additional Time to Complete Activities PRECAUTIONS Fall Risk, Weight Bearing Restrictions Right Lower Extremity Weight Bearing Status: NWB CURRENT HOSPITAL COURSE 64 y.o female admitted from outside hospital following fall, resulting in R periprosthetic proximal tibia fx, s/p R knee external fixator placement 05/03, OR early next week for ORIF Relevant Past Medical History: DM, HTN, RA, R TKA HOME LIVING Patient Lives With: Spouse Assistance Available: 24-Hour Entry To Home: Ramp Number Of Stairs To Bed/Bath: 0 Tub/Shower Type: tub shower Laundry: spouse can complete Equipment Owned: Shower Chair, Grab Bars- Shower, Rollator, Wheelchair- Manual, Walker- Wheeled PRIOR FUNCTIONAL LEVEL Within Functional Limits Patient independent [employer], ambulating without a device, drives SUBJECTIVE Patient pleasant and agreeable to PT session THERAPY DIAGNOSIS Muscle Weakness (generalized), Reduced mobility-other, General symptoms and signs-other TREATMENT INTERVENTIONS Evaluation, Therapeutic Activity (64483) $ Evaluation-Moderate (23250) Billed Units: 1 unit Therapeutic Activity (09370) Treatment Minutes: 15 $ Therapeutic Activity (08296) Billed Units: 1 unit Educated patient on role of Acute care PT, encouraging mobility with staff assistance during admission and assisting with safe discharge plan based on current mobility. Cues/assist with functional mobility as listed in grid below. Increased time and assist to complete due to elevated pain in right lower extremity. Patient unable to tolerate right lower extremity being unsupported while sitting edge of bed. Cues for upright posture, hand placement and deep breaths while sitting edge of bed. Completed rolling both directions once assisted to supine to change soiled linen. Timed Code Treatment (minutes): 15 Skilled Treatment Time (minutes): 30 TRAINING AND EDUCATION PROVIDED Bed Mobility, Benefits of In-Hospital Mobility, Expected Functional Level, Positioning, Precautions/Restrictions, Role of Physical Therapy, Skin Care and Infection Prevention Guidelines, Transfers THERAPEUTIC SKILLS USED Activity Dosing, Cues for Sequencing/Proper Technique for Activity, Cuing Verbal, Cuing Tactile, Movement Facilitation, Postural Alignment Correction, Physical Assist FUNCTIONAL STATUS Bed Mobility Rolling: Maximal Assistance, Additional Information cues to grasp railing, increased assist at trunk to roll Supine To Sit: Moderate Assistance, Additional Information HOB elevated slightly, unable to raise fully due to bar of ex-fix pushing into mattress, patient able to move LLE towards edge of bed, utilizing bedrails with assist to move RLE, increased assist at trunk to achieve sitting posture Sit to Supine: Moderate Assistance, Additional Information cues for UE sequencing, scooting hips, assist to clear RLE at edge of bed Scooting: Moderate Assistance, Additional Information patient weight shifting, assist to support RLE Transfers Sit To Stand: Additional Information patient unable to tolerate R heel being support on floor while sitting EOB due to elevated pain, unable to attempt standing Bed to Chair Gait Stairs ROM ROM Limitation Comments: WFL except R knee, ex-fix placement STRENGTH Right Lower Extremity Strength Comments: NT Left Lower Extremity Strength Comments: WFL BALANCE Static Sitting Balance: Good Dynamic Sitting Balance: Fair ACTIVITY TOLERANCE Sitting Activity: sitting EOB, cues for upright posture, therapist supporting RLE while sitting EOB Sitting Activity Tolerance (in minutes): 5 GOALS Patient will demonstrate progress to optimize functional mobility, maximize activity tolerance and endurance to maximize function upon discharge. Able to Perform HEP with: Minimal Assistance Transfer Supine to/from Sit with: Minimal Assistance Transfer Sit to/from Stand with: Moderate Assistance Ambulate with: Moderate Assistance Distance: 10' Device: Wheeled Walker Transfer: stand pivot transfer to/from chair with mod assist Rehab Potential: Good PLAN PT Frequency: 6 Times Per Week (4-6) Treatment Interv (more content not included)... [facility] ANES POSTPROC EVALon 024 ANES POSTPROC EVAL HNO ID: [id number] Author: TAI NEGRON MD Service: Anesthesiology Author Type: Physician Type: Anesthesia Postprocedure Evaluation Filed: 05/03/2024 17:51 Note Text: POST ANESTHESIA EVALUATION NOTE : 1960 Procedure Summary Date: 05/03/24 Room / Location: [place] [address] / [place] Anesthesia Start: 0840 Anesthesia Stop: 1010 Procedure: APPLICATION EXTERNAL FIXATOR TIBIA (Right: Knee) Diagnosis: Periprosthetic fracture of knee (Periprosthetic fracture of knee [M97.9XXA]) Surgeons: Sydni Waggoner MD Responsible Provider: Tai Negron MD Anesthesia Type: general ASA Status: 3 - Emergent Anesthesia Type: general Airway Type: LMA Last Vitals Vitals Value Taken Time BP 124/53 05/03/24 1215 Temp 36.5 ?C (97.7 ?F) 05/03/24 1200 HR SpO2 92 05/03/24 1219 Resp 19 05/03/24 1219 SpO2 95 % 05/03/24 1219 Vitals shown include unfiled device data. Post Anesthesia Patient Status Patient Evaluation: PACU. PACU/ICU Patient Condition: stable. Anticipated Disposition: inpatient floor planned admission. Neurological Status: aware and responsive. Pulmonary Status: breathing comfortably on supplemental oxygen Airway Control: returned to baseline unsupported. Cardiovascular Status: stable. Pain Management: clinically adequate Postoperative Hydration: acceptable. Intraoperative Events: no significant anesthesia events Post Operative Nausea/Vomiting Status: no significant post operative nausea or vomiting Recommendation: continue current plan of care and further care per PACU/ICU/floor team. Anesthesia Observations No Documentation SIGNATURE: Tai Negron MD PATIENT NAME: Zackery Nunez DATE: May 03, 2024 TIME: 5:51 PM CSN: [id number] [facility] ANES PRE-OPon 05-03-2024 ANES PRE-OP HNO ID: [id number] Author: SYDNI BENDER MD Service: Anesthesiology Author Type: Physician Type: Anesthesia Preprocedure Evaluation Filed: 05/03/2024 07:58 Note Text: ANESTHESIOLOGY DAY OF SURGERY NOTE : 1960 Procedure Information Date/Time: 05/03/24850 Procedure: APPLICATION EXTERNAL FIXATOR TIBIA (Right: Knee) Location: [place] Surgeons: Sydni Waggoner MD Estimated body mass index is 33.28 kg/m? as calculated from the following: Height as of this encounter: 165.1 cm (5' 5). Weight as of this encounter: 90.7 kg (200 lb). Most recent hematocrit and potassium results: Hematocrit 33.2 05/03/2024 Potassium 4.3 05/03/2024 Relevant Problems CARDIO (+) HTN (hypertension) (+) Migraine without aura, intractable, without status migrainosus ENDO (+) Type 2 diabetes mellitus without complication, without long-term current use of insulin (HCC) -RENAL (+) Stage 3 chronic kidney disease ([facility]) NEURO-PSYCH (+) Migraine without aura, intractable, without status migrainosus Other (+) Rheumatoid arthritis ([facility]) I - PHYSICAL EVALUATION AIRWAY Patient intubated: No. Tracheostomy tube not present Mallampati: II. TM distance: >3 FB. Neck ROM: full ROM without neurological symptoms. Mouth opening: adequate. Short neck: no. Thick neck: no DENTAL Dental findings: poor dentition. Additional exam findings: no II - ANESTHESIA PLAN ASA Score: 3; emergent. Anesthetic Plan: general Airway type: LMA NPO Status: adequate Beta Paramjit Monitoring Plan Monitoring plan: standard ASA. Post Procedure Analgesic Plan Postoperative analgesic plan: parenteral or oral opioids. Informed Consent Anesthetic risks, benefits, alternatives, personnel and consent discussed: yes. Patient / Responsible Libertarian agrees to proceed: yes Patient / Surrogate agrees to blood products: blood products not planned DNR status not reviewed with patient and/or family prior to surgery. Significant changes in the patient condition since the History and Physical, not otherwise documented in primary service progress note: no. Potential Anesthesia issues that may suggest increased risk of complications or contraindication to planned procedure: none. Vitals Value Taken Time BP 124/61 05/03/24 0736 Pulse Resp Temp SpO2 95 % 05/03/24 0756 Vitals shown include unfiled device data. Facility-Administered Medications as of 05/03/2024 Medication Dose Route Frequency [COMPLETED] HYDROmorphone 0.5 mg injection (DILAUDID) 0.5 mg INTRAVENOUS ONCE [Transfer Hold] predniSONE 10 mg tab(s) (DELTASONE) 10 mg ORAL PRN [Transfer Hold] amitriptyline 10 mg tab(s) (ELAVIL) 10 mg ORAL AT BEDTIME [Transfer Hold] citalopram 40 mg tab(s) (CeleXA) 40 mg ORAL DAILY [Transfer Hold] promethazine 25 mg tab(s) (PHENERGAN) 25 mg ORAL q 6 H PRN [Transfer Hold] promethazine 25 mg suppository (PHENERGAN) 25 mg RECTAL q 6 H PRN [Transfer Hold] SUMAtriptan 50 mg tab(s) (IMITREX) 50 mg ORAL PRN [Transfer Hold] hyoscyamine sublingual 0.125 mg tab(s) (LEVSIN SL) 0.125 mg SUBLINGUAL q 4 H PRN [Transfer Hold] atorvastatin 10 mg tab(s) (LIPITOR) 10 mg ORAL DAILY [Transfer Hold] busPIRone 30 mg tab(s) (BUSPAR) 30 mg ORAL BID [Transfer Hold] estradiol 3 g vaginal cream (ESTRACE) [id number] Applicator VAGINAL DAILY [Transfer Hold] NaCl 0.9% iv flush bag 20 mL INTRAVENOUS PRN [Transfer Hold] lactated ringers iv infusion 100 mL/hr INTRAVENOUS CONTINUOUS [Transfer Hold] ondansetron (PF) 4 mg injection (ZOFRAN) 4 mg INTRAVENOUS q 6 H PRN [Transfer Hold] melatonin 3 mg tab(s) 3 mg ORAL AT BEDTIME PRN [Transfer Hold] acetaminophen 1,000 mg tab(s) (TYLENOL) 1,000 mg ORAL q 8 H [Transfer Hold] pantoprazole DR 40 mg tab(s) (PROTONIX) 40 mg ORAL DAILY (6 AM) [Transfer Hold] senna-docusate 8.6-50 mg 1 tablet (SENNA-S) 1 tablet ORAL BID [Transfer Hold] HYDROmorphone 0.5 mg injection (DILAUDID) 0.5 mg INTRAVENOUS q 3 H PRN [Transfer Hold] oxyCODONE IR 5 mg tab(s) (ROXICODONE) 5 mg ORAL q 4 H PRN [Transfer Hold] gabapentin 900 mg cap(s) (NEURONTIN) 900 mg ORAL DAILY AT 12 PM [Transfer Hold] gabapentin 600 mg cap(s) (NEURONTIN) 600 mg ORAL AT BEDTIME [Transfer Hold] buprenorphine transdermal patch 20 mcg/hr (BUTRANS) 1 Patch TRANSDERMAL 1/WK [Transfer Hold] buprenorphine - REMOVE PATCH OTHER 1/WK And [Transfer Hold] buprenorphine - VERIFY PATCH OTHER q 8 H Outpatient Medications as of 05/03/2024 Medication Sig lisinopril (ZESTRIL) 10 mg tablet Take 1 tablet by mouth once daily. atorvastatin (LIPITOR) 10 mg tablet Take 1 tablet by mouth once daily. (Patient taking differently: Take 10 mg by mouth daily at bedtime.) busPIRone HCl 30 mg tablet Take 1 tablet by mouth two times a day. omeprazole (PRILOSEC) 40 mg capsule Take 40 mg by mouth once daily. citalopram (CELEXA) 40 mg tablet Take 1 tablet by mouth once daily. oxyCODONE-acetaminophen (PERCOCET) 5-325 mg tablet 1 tablet three (more content not included)... [facility] BRIEF OP NOTon 05-03-2024 BRIEF OP NOT HNO ID: [id number] Author: SAHARA ROYAL MD Service: Orthopaedic Surgery Author Type: Resident Type: Brief Op Note Filed: 05/03/2024 10:32 Note Text: Orthopaedic Surgery Brief Operative Note Log ID: [id number] Surgery/Procedure Date: 05/03/2024 Incision/Procedure Start Time: 9:01 AM Incision Close/Procedure End Time: 10:00 AM Surgeon(s)/Proceduralist(s ) and Barrel Loader(s): Surgeons and Role: * Sydni Waggoner MD - Primary * Sahara Royal MD - Resident - Assisting No Additional Staff Procedure(s): Procedure(s) (LRB): APPLICATION EXTERNAL FIXATOR TIBIA (Right) Anesthesia: General Pre-Op/Pre-Procedure Diagnosis: Periprosthetic fracture of knee [M97.9XXA] Post-Op/Post-Procedure Diagnosis: Periprosthetic fracture of knee [M97.9XXA] Implant: Implant Name Type Inv. Item Serial No. Brim Rounder Lot No. LRB No. Used Action PIN CLAMP 5 HOLE - [id number] Clamp PIN CLAMP 5 HOLE [employer] 1 PIN CLAMP 5 HOLE - [id number] Clamp PIN CLAMP 5 HOLE [employer] 1 APEX PIN BONE [id number] - [id number] Pin APEX PIN BONE [id number] [employer] 1 APEX PIN BONE [id number] - [id number] Pin APEX PIN BONE [id number] [employer] 1 BIT 3.2MM MCLAIN 200MM DRILL - [id number] Bit BIT 3.2MM MCLAIN 200MM DRILL [employer] [id number] Right 1 Non-Implant PIN APEX RUBEN II 5MM STAINLESS STEEL 180MM 50MM HALF SELF TAP SELF - [id number] Fixator PIN APEX RUBEN II 5MM STAINLESS STEEL 180MM 50MM HALF SELF TAP SELF [employer] Right 2 Non-Implant MAT RUBEN 3 11MM VECTRAN CARBON 400MM EXTERNAL FIXATION MRI - [id number] Mat MAT RUBEN 3 11MM VECTRAN CARBON 400MM EXTERNAL FIXATION MRI [employer] Right 2 Non-Implant MAT EXFIX 11MM 15CM [facility] [id number] Mat MATILDA Right 1 Non-Implant COUPLING 5/8/11MM EXTERNAL FIXATION MAT TO MAT - [id number] Implant COUPLING 5/8/11MM EXTERNAL FIXATION MAT TO MAT [employer] Right 6 Non-Implant Fluids: per anesthesia Estimated Blood Loss: 25cc Malcolm: None Specimens: None Drains: None Findings: See operative report. Complications: None Special medications: 2 g Ancef Post op plan: 64 year old female status-post R knee external fixator. - Management per ortho - Pain control. - Weight Bearing Status: NWB RLE. - Dressing(s): soft dressings to incision sites and pin sites - PT/OT: Evaluation AND recommendations. - DVT PPx: SCDs. Lovenox 40 mg daily x 21 days. - Antibiotic PPx: Ancef 2 g Q8H x 2 doses. - Malcolm: none. - Imaging: none. - Anticipated Length of Stay/Disposition: pending PT/OT. Sahara Royal MD Orthopedic Surgery Resident 05/03/24 10:30 AM [facility] Basic metabolic 2000 panelon 05-03-2024 Anion gap [Moles/Vol] 10 mmol/L Normal 8-15 [facility] Comment on above: Order Comment: Speci men Type: BLOOD SPECIMENOrdering Facility: [facility] Address: [address] [place] [address] Performed By: #### 2 4321-2 ####[facility] [place] [facility] [id number] [place] [address] [place] Calcium [Mass/Vol] 8.3 mg/dL Low 8.5-10.2 [facility] Comment on above: Order Comment: Speci men Type: BLOOD SPECIMENOrdering Facility: [facility] Address: [address] [place] [address] Performed By: #### 2 4321-2 ####[facility] [place] [facility]ORYCLIA [id number] [place] [id number] [place] Chloride [Moles/Vol] 101 mmol/L Normal 98-107 [facility] Comment on above: Order Comment: Speci men Type: BLOOD SPECIMENOrdering Facility: [facility] Address: [address] [place] [address] Performed By: #### 2 4321-2 ####[facility] [place] [facility]ATORYCLIA [id number] [place] [id number] [place] CO2 [Moles/Vol] 25 mmol/L Normal 22-30 [facility] Comment on above: Order Comment: Speci men Type: BLOOD SPECIMENOrdering Facility: [facility] Address: [address] [place] [address] Performed By: #### 2 4321-2 ####[facility] [place] [facility]ATORYCLIA [id number] [address] [place] Creatinine [Mass/Vol] 1.01 mg/dL High 0.58-0.96 [facility] Comment on above: Order Comment: Speci men Type: BLOOD SPECIMENOrdering Facility: [facility] Address: [address] [place] [address] Performed By: #### 2 4321-2 ####[facility] [place] [facility]ORYCL[facility] [id number] [address] Creatinine and Glomerular filtration rate.predicted panel (S/P/Bld) 62 mL/min/1.73m??? Normal >=60 [facility] Comment on above: Order Comment: Speci men Type: BLOOD SPECIMENOrdering Facility: [facility] Address: [address] [place] [address] Result Comment: Sienna mated Glomerular Filtration Rate (eGFR) is calculated using the 2020 CKD-EPI creatinine equation. This equation utilizes serum creatinine, sex, and age as parameters. The creatinine assay has traceable calibration to isotope dilution-mass spectrometry. Refer to KDIGO guidelines for clinical interpretation. In patients with unstable renal function, e.g. those with acute kidney injury, the eGFR may not accurately reflect actual GFR. Performed By: #### 2 4321-2 ####[facility] [place] LAB[facility]ATORYCLIA [id number] [place] [address] [place] Glucose [Mass/Vol] 107 mg/dL High 74-99 [facility] Comment on above: Order Comment: Nery vidales Type: BLOOD SPECIMENOrdering Facility: [facility] Address: [address] [place] [address] Result Comment: The [place] Diabetes Association (ADA) provides guidance for cutoff values for fasting glucose and random glucose. The ADA defines fasting as no caloric intake for at least 8 hours. Fasting plasma glucose results between 100 to 125 mg/dL indicate increased risk for diabetes (prediabetes). Fasting plasma glucose results greater than or equal to 126 mg/dL meet the criteria for diagnosis of diabetes. In the absence of unequivocal hyperglycemia, results should be confirmed by repeat testing. In a patient with classic symptoms of hyperglycemia or hyperglycemic crisis, random plasma glucose results greater than or equal to 200 mg/dL meet the criteria for diagnosis of diabetes. Reference: Standards of Medical Care in Diabetes 2016, [place] [employer] Association. Diabetes Care. 2016.39(Suppl 1). Performed By: #### 2 4321-2 ####[facility] [place] [facility]ATORYCLIA [id number] [place] [address] [place] Potassium [Moles/Vol] 4.3 mmol/L Normal 3.7-5.1 [facility] Center Comment on above: Order Comment: Nery vidales Type: BLOOD SPECIMENOrdering Facility: [facility] Address: [address] [place] [address] Performed By: #### 2 4321-2 ####[facility] [place] [place] [facility]ORYCL[facility] [id number] [place] [address] [place] Sodium [Moles/Vol] 136 mmol/L Normal 136-144 [facility] Comment on above: Order Comment: Nery vidales Type: BLOOD SPECIMENOrdering Facility: [facility] Address: [address] [id number] Performed By: #### 2 4321-2 ####[facility] [place] [facility]ORYCL[facility] [id number] [address] [place] Urea nitrogen [Mass/Vol] 11 mg/dL Normal 7-21 [facility] Comment on above: Order Comment: Speci men Type: BLOOD SPECIMENOrdering Facility: [facility] Address: [address] [place] [address] Performed By: #### 2 4321-2 ####[facility] [place] [facility]ORYCLIA [id number] [place] [id number] [place] [facility] CBC panel Auto (Bld)on 05-03 Erythrocyte distribution width (RBC) [Ratio] 14.6 % Normal 11.5-15.0 [facility] Comment on above: Order Comment: Speci men Type: BLOOD SPECIMENOrdering Facility: [facility] Address: [address] [place] [address] Performed By: #### 5 8410-2 ####[facility] [place] [facility]ORYCL[facility] [id number] [address] STATES [place] [facility] Hematocrit (Bld) [Volume fraction] 33.2 % Low 36.0-46.0 [facility] Comment on above: Order Comment: Speci men Type: BLOOD SPECIMENOrdering Facility: [facility] Address: [address] [place] [address] Performed By: #### 5 8410-2 ####[facility] [place] [facility]ORYCL[facility] [id number] [place] [id number] [place] Hemoglobin (Bld) [Mass/Vol] 10.7 g/dL Low 11.5-15.5 [facility] Comment on above: Order Comment: Speci men Type: BLOOD SPECIMENOrdering Facility: [facility] Address: [address] [place] [address] Performed By: #### 5 8410-2 ####[facility] [place] [facility]ORYCL[facility] [id number] [address] [place] MCH (RBC) [Entitic mass] 29.5 pg Normal 26.0-34.0 [facility] Comment on above: Order Comment: Speci men Type: BLOOD SPECIMENOrdering Facility: [facility] Address: [address] [place] [address] Performed By: #### 5 8410-2 ####[facility] [place] [facility]ORYCLIA [id number] [address] [place] [facility] MCHC (RBC) [Mass/Vol] 32.2 g/dL Normal 30.5-36.0 [facility] Comment on above: Order Comment: Speci men Type: BLOOD SPECIMENOrdering Facility: [facility] Address: [address] [place] [address] Performed By: #### 5 8410-2 ####[facility] [place] [facility]ATORYCLIA [id number] [address] OF [facility] MCV (RBC) [Entitic vol] 91.5 fL Normal 80.0-100.0 [facility] Comment on above: Order Comment: Speci men Type: BLOOD SPECIMENOrdering Facility: [facility] Address: [address] [place] [address] Performed By: #### 5 8410-2 ####[facility] [place] [facility]ATORYCLIA [id number] [address] Nucleated RBC (Bld) [#/Vol] 10*3/uL Normal <0.01 [facility] Comment on above: Order Comment: Speci men Type: BLOOD SPECIMENOrdering Facility: [facility] Address: [address] [place] [address] Performed By: #### 5 8410-2 ####[facility] [place] [facility]ATORYCLIA [id number] [address] Platelet mean volume (Bld) [Entitic vol] 10.7 fL Normal 9.0-12.7 [facility] Comment on above: Order Comment: Speci men Type: BLOOD SPECIMENOrdering Facility: [facility] Address: [address] [place] [address] Performed By: #### 5 8410-2 ####[facility] [place] [facility]ORYCL[facility] [id number] [address] [place] Platelets (Bld) [#/Vol] 211 10*3/uL Normal 150-400 [facility] Comment on above: Order Comment: Speci men Type: BLOOD SPECIMENOrdering Facility: [facility] Address: [address] [place] [address] Performed By: #### 5 8410-2 ####[facility] [place] [facility]ATORYCLIA [id number] [place] [address] [place] [facility] RBC (Bld) [#/Vol] 3.63 10*6/uL Low 3.90-5.20 [facility] Comment on above: Order Comment: Speci men Type: BLOOD SPECIMENOrdering Facility: [facility] Address: [address] [place] [address] Performed By: #### 5 8410-2 ####[facility] [place] [facility]ORYCLIA [id number] [address] [place] [facility] WBC (Bld) [#/Vol] 8.87 10*3/uL Normal 3.70-11.00 [facility] Comment on above: Order Comment: Speci men Type: BLOOD SPECIMENOrdering Facility: [facility] Address: [address] [place] [address] Performed By: #### 5 8410-2 ####[facility] [place] [facility]ORYCLIA [id number] [address] CONSULT PROGon 05-03-2024 CONSULT PROG HNO ID: [id number] Author: KELLI DE LA TORRE MD Service: Hospital Medicine Author Type: Physician Type: Consult Progress Note Filed: 05/04/2024 14:26 Note Text: DEPARTMENT OF HOSPITAL MEDICINE CONSULT PROGRESS NOTE SERVICE DATE: 05/03/2024 Primary Care Physician: Mikayla Strange MD NIGHT AND WEEKEND COVERAGE: AKFILEMON COVERAGE: From 7am - 7pm, please call primary team After 7pm, please call cross cover pager #[phone] Subjective INTERVAL HPI: 64 year old female with PMH of hypertension, diet-controlled diabetes, rheumatoid arthritis, fibromyalgia and chronic back pain who presents with right knee pain. Patient reports she was on her deck trying to get near a cat she saw outside when her right leg broke through the deck floorboard. She reports severe knee pain following this. During my evaluation patient is resting comfortably in bed, external fixator in place on right knee. Complaining of some soreness in her right knee and radiating down her right leg. No other acute complaints. Is the Patient Experiencing Pain: No: 0 on a scale of 0 to 10 MEDICATIONS: Reviewed Current Facility-Administered Medications Medication Dose Route Frequency amitriptyline 10 mg tab(s) (ELAVIL) 10 mg ORAL AT BEDTIME citalopram 40 mg tab(s) (CeleXA) 40 mg ORAL DAILY promethazine 25 mg tab(s) (PHENERGAN) 25 mg ORAL q 6 H PRN SUMAtriptan 50 mg tab(s) (IMITREX) 50 mg ORAL PRN hyoscyamine sublingual 0.125 mg tab(s) (LEVSIN SL) 0.125 mg SUBLINGUAL q 4 H PRN atorvastatin 10 mg tab(s) (LIPITOR) 10 mg ORAL DAILY busPIRone 30 mg tab(s) (BUSPAR) 30 mg ORAL BID estradiol 3 g vaginal cream (ESTRACE) [id number] Applicator VAGINAL DAILY NaCl 0.9% iv flush bag 20 mL INTRAVENOUS PRN ondansetron (PF) 4 mg injection (ZOFRAN) 4 mg INTRAVENOUS q 6 H PRN melatonin 3 mg tab(s) 3 mg ORAL AT BEDTIME PRN acetaminophen 1,000 mg tab(s) (TYLENOL) 1,000 mg ORAL q [address] 40 mg tab(s) (PROTONIX) 40 mg ORAL DAILY (6 AM) senna-docusate 8.6-50 mg 1 tablet (SENNA-S) 1 tablet ORAL BID gabapentin 900 mg cap(s) (NEURONTIN) 900 mg ORAL DAILY AT 12 PM gabapentin 600 mg cap(s) (NEURONTIN) 600 mg ORAL AT BEDTIME buprenorphine transdermal patch 20 mcg/hr (BUTRANS) 1 Patch TRANSDERMAL 1/WK [START ON 05/08/2024] buprenorphine - REMOVE PATCH OTHER 1/WK And buprenorphine - VERIFY PATCH OTHER q 8 H oxyCODONE IR 5-10 mg tab(s) (ROXICODONE) 5-10 mg ORAL q 4 H PRN HYDROmorphone 0.5 mg injection (DILAUDID) 0.5 mg INTRAVENOUS q 3 H PRN calcium-cholecalciferol (D3) 2 tablet tab(s) (OSCAL+D 250) 2 tablet ORAL BID senna 17.2 mg tab(s) (SENOKOT) 17.2 mg ORAL AT BEDTIME enoxaparin 40 mg injection (LOVENOX) 40 mg SUBCUTANEOUS q 24 HR lisinopril 10 mg tab(s) (ZESTRIL) 10 mg ORAL DAILY Objective PHYSICAL EXAM: BP 108/52 Pulse 76 Temp (Src) 99.3 (Oral) Resp 18 Ht 5' 5 (1.65m) Wt 200 lb (90.7kg) SpO2 98% BMI 33.28 kg/(m2). O2 Therapy: Room Air Physical Exam Performed: GENERAL: Alert, no distress, cooperative SKIN: Skin color, texture, turgor normal. No rashes or lesions. HEAD/SINUSES: No significant findings LUNGS: Lungs clear to auscultation, Good diaphragmatic excursion CARDIAC: Normal S1 and S2; no rubs, murmurs, or gallops ABDOMEN: Abdomen soft, non-tender, BS normal, No masses or organomegaly EXTREMITIES: Right lower extremity with external fixator, C/D/I NEURO: Exam deferred Lines, Drains, and Airways Line Duration Peripheral 05/02/24 External Facility Right Antecubital 20 Gauge 2 days Drain Duration External Collection Device 05/03/24 1600 <1 day Reviewed lines and needs to be continued: REASONS: Difficulty in obtaining/maintaining access DATA: Diagnostic tests reviewed for today's visit: Most recent labs and imaging results. Most recent EKG Impression/Recommendations #Periprosthetic fracture around prosthetic knee, initial encounter (POA: Yes) -Per primary team, status post right knee external fixator for periprosthetic tibial fracture -Plan for repeat OR sometime next week #Preoperative evaluation -RCRI score -0 indicating class I risk-recommend proceeding with surgery as indicated with understanding underlying surgical risks #HTN, hyperlipidemia -Resumed on home lisinopril and atorvastatin, monitor vitals. #Chronic pain -Pain management consulted and is following, Butrans patches ordered #Anxiety, fibromyalgia -Continue Neurontin, Celexa, BuSpar, Elavil #Obesity Class I (BMI 30-34.9) BMI 33, recommend lifestyle modification and weight loss VTE PROPHYLAXIS: As per primary team Disposition: To be determined Plan of care discussed with: Provider, RN, Patient SIGNATURE: Kelli De La Torre MD PATIENT NAME: Zackery Nunez DATE: May 03, 2024 TIME: 4:20 PM etx [id number] [facility] NURSING PROGon 05-03-2024 NURSING PROG HNO ID: [id number] Author: ROSEMARY CONWAY RN Service: Nursing Author Type: Registered Nurse Type: Nursing Progress Note Filed: 05/03/2024 08:26 Note Text: Pt. had nausea over last week until Monday, just not feeling good, symptoms have totally resolved. Never had a fever. Anesthesia notified and aware. [facility] OPERATIVE NOon 05-03-2024 OPERATIVE NO HNO ID: [id number] Author: SYDNI WAGGONER MD Service: Orthopaedic Surgery Author Type: Physician Type: Operative Report Filed: 05/04/2024 09:38 Note Text: OPERATIVE/PROCEDURE REPORT LOG ID: [id number] SURGERY/PROCEDURE DATE: 05/03/2024 INCISION/PROCEDURE START TIME: 9:01 AM INCISION CLOSE/PROCEDURE END TIME: 10:00 AM SURGEON(S)/PROCEDURALIST(S ) AND IMPORT/EXPORT FREIGHT FORWARDER(S): Surgeons and Role: * Sydni Waggoner MD - Primary * Sahara Royal MD - Resident - Assisting No Additional Staff PRE-OP/PRE-PROCEDURE DIAGNOSIS: 1) Right Periprosthetic Proximal Tibia Fracture, Closed 2) Right Patella Fracture, Closed POST-OP/POST-PROCEDURE DIAGNOSIS: 1) Right Periprosthetic Proximal Tibia Fracture, Closed 2) Right Patella Fracture, Closed SURGERY/PROCEDURE(S): 1) Open Treatment of the Right Periprosthetic Tibia Fracture, Proximal; Bicondylar with or without Internal Fixation (CPT 77565) 2) Application of a Right Lower Extremity Knee-Spanning Uniplanar External Fixator (CPT 15560) 3) Closed Treatment of the Right Patella Fracture without Manipulation (CPT 50909) ANESTHESIA: 1) General ANTIBIOTICS: 1) Ancef 2g IV ESTIMATED BLOOD LOSS: 1) 25 CC FLUIDS: 1) Per Anesthesia Documentation SPECIMENS: 1) None CLINICAL INDICATIONS: 64 year old female was transferred to [facility] on 05/02/2024 for management of a complex right periprosthetic proximal tibia fracture. X-rays of the right knee from 05/01/2024 demonstrate a displaced transverse patella fracture and a displaced and comminuted proximal tibia fracture at the level of the keel of the tibial component of the total knee arthroplasty with extension deformity of the proximal segment. The patient was admitted to orthopaedic trauma surgery with medicine on consultation. The risks, limitations, benefits and alternatives to all treatment options including non-operative and operative management of the patient's right periprostheic proximal tibia fracture were discussed with the patient. The risks of the operation include, but are not limited to, the risks associated with general anesthesia, infection, bleeding, damage to nearby structures (such as arteries, veins, nerves, muscle, tendons, ligaments), chronic pain, malunion, nonunion, deep venous thromboses, pulmonary embolism, hardware failure and the need for future operations. The patient elected to proceed with open reduction internal fixation versus application of a right lower extremity knee-spanning uniplanar external fixator for the right periprosthetic proximal tibia fracture. All questions and concerns were answered and addressed. The informed consent was reviewed. SURGERY/PROCEDURE DETAILS: The patient was met in the pre-operative holding area on 05/03/2024. A pre-operative huddle was conducted with the surgical team. The patient was identified with two patient identifiers (name and date of ). The patient's operative extremity (right lower extremity) was marked. The pre-operative checklist, including review of the informed consent, was reviewed and agreed upon by all members of the surgical team. The patient was transferred to the operating room. The patient was intubated by anesthesia. The patient was positioned supine on a radiolucent table with attention to padding of bony prominences. The patient's right lower extremity was pre-cleansed with alcohol, sterilely prepped (ChloraPrep) and draped in standard orthopaedic fashion. A final time out was conducted in accordance with [facility] General policy. After all members of the surgical team agreed upon the details of the procedure, two 5.0 mm Schanz pins were inserted from puyqqkxkisjbm-dk-xnbclvwyj dial in the right femur through stab incisions to the distal thigh. The pin depths were confirmed on orthogonal radiographs to the Schanz pins. Two 5.0 mm Schanz pins were inserted into the middle-third of the right tibia just medial to the tibial crest from lozifmsm-lt-prhewskjb through stab incisions to the lower leg. The Schanz pins were inserted distal to the planned definitive fixation site of the right periprosthetic proximal tibia fracture. The pin depths were confirmed on lateral radiographs of the right tibia. Pin clamps were assembled to the Schanz pins in the femur and in the tibia. A medial incision was performed to the proximal right lower leg. Dissection was performed deep to the periprosthetic proximal tibia fracture. Theperiprosthetic proximal tibia fracture was identified and found to be comminuted. A pointed reduction forceps and ball-spike pusher were utilized to improve the reduction of the periprosthetic proximal tibia fracture under AP and lateral right knee radiographs. Clamps were then assembled to outrigger posts connected to the pin clamps. The clamps were connected with two bars to maintain the reduction. An additional bar was inserted between the two (more content not included)... Normal [facility] XR KNEE 2V AP/LAT RTon 05-03 XR KNEE 2V AP/LAT RT * * *Final Report* * * DATE OF EXAM: May 03 2024 10:01AM [place] 5207 - XR KNEE 2V AP/LAT RT / PROCEDURE REASON: EX FIX * * * * Physician Interpretation * * * * EXAMINATION: XR KNEE 2V AP/LAT RT HISTORY: EX FIX TECHNIQUE: XR KNEE 2V AP/LAT RT 4 intraoperative fluoroscopic images of the right knee COMPARISON: None RESULT: See impression IMPRESSION: 4 intraoperative fluoroscopic images demonstrating placement of external fixator of the right leg. Please see operative report for full details of the procedure. Total fluoroscopic time: 1 minute 44 seconds Cumulative dose: 5.385 mGy Digital Marketing Manager: CHERELLE Transcribe Date/Time: May 03 2024 10:10A Dictated by : UMA ARORA MD This examination was interpreted and the report reviewed and electronically signed by: UMA ARORA MD on May 03 2024 10:11AM EST [id number] Normal [facility] Basic metabolic 2000 panelon 05-02-2024 Anion gap [Moles/Vol] 13 mmol/L Normal 8-15 [facility] Comment on above: Order Comment: Speci men Type: BLOOD SPECIMENOrdering Facility: [facility] Address: [address] [place] [address] Performed By: #### 6 462-6 #### [facility] CLIA [id number] [address] [place] Calcium [Mass/Vol] 8.8 mg/dL Normal 8.5-10.2 [facility] Comment on above: Order Comment: Speci men Type: BLOOD SPECIMENOrdering Facility: [facility] Address: [address] [place] [address] Performed By: #### 6 462-6 #### [facility] CLIA [id number] [address] [place] [address] [place] Chloride [Moles/Vol] 102 mmol/L Normal 98-107 [facility] Comment on above: Order Comment: Speci men Type: BLOOD SPECIMENOrdering Facility: [facility] Address: [address] [place] [address] Performed By: #### 6 462-6 #### [facility] [place] [place] [facility] CLIA [id number] [address] [place] [address] [place] CO2 [Moles/Vol] 22 mmol/L Normal 22-30 [facility] Comment on above: Order Comment: Speci men Type: BLOOD SPECIMENOrdering Facility: [facility] Address: [address] [place] [address] Performed By: #### 6 462-6 #### [facility] CLIA [id number] [address] [place] Creatinine [Mass/Vol] 1.07 mg/dL High 0.58-0.96 [facility] Comment on above: Order Comment: Speci men Type: BLOOD SPECIMENOrdering Facility: [facility] Address: [address] [place] [address] Performed By: #### 6 462-6 #### [facility] CLIA [id number] [address] [place] Creatinine and Glomerular filtration rate.predicted panel (S/P/Bld) 57 mL/min/1.73m??? Low >=60 [facility] Comment on above: Order Comment: Nery vidales Type: BLOOD SPECIMENOrdering Facility: [facility] Address: [address] [place] [address] Result Comment: Sienna mated Glomerular Filtration Rate (eGFR) is calculated using the 2020 CKD-EPI creatinine equation. This equation utilizes serum creatinine, sex, and age as parameters. The creatinine assay has traceable calibration to isotope dilution-mass spectrometry. Refer to KDIGO guidelines for clinical interpretation. In patients with unstable renal function, e.g. those with acute kidney injury, the eGFR may not accurately reflect actual GFR. Performed By: #### 6 462-6 #### [facility] [place] [facility] CLIA [id number] [address] [place] [address] [place] Glucose [Mass/Vol] 104 mg/dL High 74-99 [facility] Comment on above: Order Comment: Nery vidales Type: BLOOD SPECIMENOrdering Facility: [facility] Address: [address] [place] [address] Result Comment: The [place] Diabetes Association (ADA) provides guidance for cutoff values for fasting glucose and random glucose. The ADA defines fasting as no caloric intake for at least 8 hours. Fasting plasma glucose results between 100 to 125 mg/dL indicate increased risk for diabetes (prediabetes). Fasting plasma glucose results greater than or equal to 126 mg/dL meet the criteria for diagnosis of diabetes. In the absence of unequivocal hyperglycemia, results should be confirmed by repeat testing. In a patient with classic symptoms of hyperglycemia or hyperglycemic crisis, random plasma glucose results greater than or equal to 200 mg/dL meet the criteria for diagnosis of diabetes. Reference: Standards of Medical Care in Diabetes 2016, [place] [employer] Association. Diabetes Care. 2016.39(Suppl 1). Performed By: #### 6 462-6 #### [facility] [place] CLIA [id number] [address] [place] [address] [place] Potassium [Moles/Vol] 4.0 mmol/L Normal 3.7-5.1 [facility] Comment on above: Order Comment: Nery vidales Type: BLOOD SPECIMENOrdering Facility: [facility] Address: [address] [place] [address] Performed By: #### 6 462-6 #### [facility] CLIA [id number] [address] [place] Sodium [Moles/Vol] 137 mmol/L Normal 136-144 [facility] Comment on above: Order Comment: Speci men Type: BLOOD SPECIMENOrdering Facility: [facility] Address: [address] [place] [address] Performed By: #### 6 462-6 #### [facility] CLIA [id number] [address] [place] Urea nitrogen [Mass/Vol] 12 mg/dL Normal 7-21 [facility] Comment on above: Order Comment: Speci men Type: BLOOD SPECIMENOrdering Facility: [facility] Address: [address] [place] [address] Performed By: #### 6 462-6 #### [facility] CLIA [id number] [address] [place] Bedside Glucoseon 05-02-2024 FINGERSTICK GLU 81 mg/dL Normal 74-106 [facility] Comment on above: Result Comment: PREM GEMENT OF PATIENT CARE PER NURSING PROTOCOL Performed By: #### M 100.636, M200.1000 #### [facility] [address] [facility] [place], [place], [id number] CBC panel Auto (Bld)on 05-02 Erythrocyte distribution width (RBC) [Ratio] 14.5 % Normal 11.5-15.0 [facility] Comment on above: Order Comment: Speci men Type: BLOOD SPECIMENOrdering Facility: [facility] Address: [address] [place] [address] Performed By: #### 5 8410-2 ####[facility] [id number] [address] [facility] Hematocrit (Bld) [Volume fraction] 34.5 % Low 36.0-46.0 [facility] Comment on above: Order Comment: Speci men Type: BLOOD SPECIMENOrdering Facility: [facility] Address: [address] [place] [address] Performed By: #### 5 8410-2 ####[facility] [place] [place] [facility] [id number] [address] [facility] Hemoglobin (Bld) [Mass/Vol] 11.4 g/dL Low 11.5-15.5 [facility] Comment on above: Order Comment: Speci men Type: BLOOD SPECIMENOrdering Facility: [facility] Address: [address] [place] [address] Performed By: #### 5 8410-2 ####[facility] [place] [place] [facility] [id number] [address] [place] [facility] MCH (RBC) [Entitic mass] 29.6 pg Normal 26.0-34.0 [facility] Comment on above: Order Comment: Speci men Type: BLOOD SPECIMENOrdering Facility: [facility] Address: [address] [place] [address] Performed By: #### 5 8410-2 ####[facility] [place] [place] [facility] [id number] [address] MCHC (RBC) [Mass/Vol] 33.0 g/dL Normal 30.5-36.0 [facility] Comment on above: Order Comment: Speci men Type: BLOOD SPECIMENOrdering Facility: [facility] Address: [address] [place] [address] Performed By: #### 5 8410-2 ####[facility] [place] [place] LABORATORYCLIA [id number] [address] [place] MCV (RBC) [Entitic vol] 89.6 fL Normal 80.0-100.0 [facility] Comment on above: Order Comment: Speci men Type: BLOOD SPECIMENOrdering Facility: [facility] Address: [address] [place] [address] Performed By: #### 5 8410-2 ####[facility] [place] LABORATORYCLIA [id number] [address] OF [facility] Nucleated RBC (Bld) [#/Vol] 10*3/uL Normal <0.01 [facility] Comment on above: Order Comment: Speci men Type: BLOOD SPECIMENOrdering Facility: [facility] Address: [address] [place] [address] Performed By: #### 5 8410-2 ####[facility] LABORATORYCLIA [id number] [place] [address] [place] Platelet mean volume (Bld) [Entitic vol] 10.5 fL Normal 9.0-12.7 [facility] Comment on above: Order Comment: Speci men Type: BLOOD SPECIMENOrdering Facility: [facility] Address: [address] [place] [address] Performed By: #### 5 8410-2 ####[facility] LABORATORYCLIA [id number] [address] [place] Platelets (Bld) [#/Vol] 228 10*3/uL Normal 150-400 [facility] Comment on above: Order Comment: Speci men Type: BLOOD SPECIMENOrdering Facility: [facility] Address: [address] [place] [address] Performed By: #### 5 8410-2 ####[facility] LABORATORYCLIA [id number] [place] [address] [place] RBC (Bld) [#/Vol] 3.85 10*6/uL Low 3.90-5.20 [facility] Comment on above: Order Comment: Speci men Type: BLOOD SPECIMENOrdering Facility: [facility] Address: [address] [place] [address] Performed By: #### 5 8410-2 ####[facility] LABORATORYCLIA [id number] [place] [address] [place] WBC (Bld) [#/Vol] 10.03 10*3/uL Normal 3.70-11.00 [facility] Comment on above: Order Comment: Speci men Type: BLOOD SPECIMENOrdering Facility: [facility] Address: [address] [place] [address] Performed By: #### 5 8410-2 ####[facility] LABORATORYCLIA [id number] [address] CONFIRM BLOOD TYPEon 024 ABO A Normal [facility] Comment on above: Order Comment: Speci men Type: BLOOD SPECIMEN Ordering Facility: [facility] Address: [address] [place] [address] Performed By: #### C ONABO #### [facility] [facility] CLIA [id number] [address] Rh Nom (Bld) Positive Normal [facility] Comment on above: Order Comment: Speci men Type: BLOOD SPECIMEN Ordering Facility: [facility] Address: [address] [place] [address] Performed By: #### C ONABO #### [facility] [place] [facility] CLIA [id number] [address] CONSULTon 05-02-2024 CONSULT HNO ID: [id number] Author: OVI LOMELI DO Service: Hospital Medicine Author Type: Physician Type: Consults Filed: 05/02/2024 18:00 Note Text: DEPARTMENT OF HOSPITAL MEDICINE INITIAL CONSULT SERVICE DATE: 05/02/2024 SERVICE TIME: 5:50 PM Primary Care Physician: Mikayla Strange MD NIGHT AND WEEKEND COVERAGE: [place] COVERAGE: From 7am - 7pm, please call sound After 7pm, please call cross cover pager #[phone] REASON FOR CONSULT: medical management REQUESTING PHYSICIAN: Dr. Waggoner Subjective CHIEF COMPLAINT: Knee pain HPI: This is a 64 year old female with past medical history significant for hypertension, diet-controlled diabetes, rheumatoid arthritis, fibromyalgia and chronic back pain who presents with right knee pain. Patient reports she was on her deck trying to get near a cat she saw outside when her right leg broke through the deck floorboard. She reports severe knee pain following this. She asked her to call squad to bring her in. She otherwise denies any recent illness including fevers, chills, shortness of breath, chest pain, headache, lightheadedness, dizziness, vomiting, diarrhea. Patient had a stress test 2 years ago that was normal. She has not experienced any chest pain or shortness of breath since that time. She reports she is able to get up and down the stairs without issue. She reports that she has some pain limited activity at home but for the most part is able to take care of herself. PAST MEDICAL HISTORY Diagnosis Date Anxiety disorder [...] Never Smokeless tobacco: Never Vaping Use Vaping status: Never Used Substance Use Topics Alcohol use: No Drug use: No MEDICATIONS: Reviewed lisinopril (ZESTRIL) 10 mg tablet, Take 1 tablet by mouth once daily., Disp: 10 tablet, Rfl: 0 atorvastatin (LIPITOR) 10 mg tablet, Take 1 tablet by mouth once daily. (Patient taking differently: Take 10 mg by mouth daily at bedtime.), Disp: 90 tablet, Rfl: 3 busPIRone HCl 30 mg tablet, Take 1 tablet by mouth two times a day., Disp: 180 tablet, Rfl: 3 omeprazole (PRILOSEC) 40 mg capsule, Take 40 mg by mouth once daily., Disp: , Rfl: citalopram (CELEXA) 40 mg tablet, Take 1 tablet by mouth once daily., Disp: 90 tablet, Rfl: 3 oxyCODONE-acetaminophen (PERCOCET) 5-325 mg tablet, 1 tablet three times daily as needed., Disp: , Rfl: amitriptyline (ELAVIL) 10 mg tablet, Take 1 tablet by mouth daily at bedtime., Disp: , Rfl: gabapentin (NEURONTIN) 300 mg capsule, Take 300 mg by mouth. 900 mg (3 tabs) a.m, 600 mg (2 tabs) p.m, Disp: , Rfl: Cetirizine 10 mg cap, Take by mouth., Disp: , Rfl: lisinopril (ZESTRIL) 10 mg tablet, Take 1 tablet by mouth once daily., Disp: 90 tablet, Rfl: 3 estradiol (ESTRACE) 0.01 % (0.1 mg/gram) vaginal cream, Use 3 g vaginally once daily., Disp: 42.5 g, Rfl: 2 hyoscyamine sublingual (LEVSIN/SL) 0.125 mg, Dissolve 1 tablet under the tongue every 4 hours as needed., Disp: 60 tablet, Rfl: 3 promethazine (PHENERGAN) 25 mg tablet, Take 1 tablet by mouth every 6 hours as needed., Disp: 24 tablet, Rfl: 6 promethazine (PHENERGAN) 25 mg suppository, 1 Suppository by RECTAL route every 6 hours as needed., Disp: 24 Suppository, Rfl: 6 SUMAtriptan (IMITREX) 50 mg tablet, Take 1 tablet (50 mg) by mouth as needed., Disp: 9 tablet, Rfl: 3 buprenorphine 20 mcg/hour ptwk, Apply 1 Patch as directed one time a week. PT APPLIED 05/01, Disp: , Rfl: upadacitinib (RINVOQ ORAL), Take 15 mg by mouth., Disp: , Rfl: predniSONE (DELTASONE) 10 mg tablet, Take 1 tablet by mouth as needed for Pain., Disp: , Rfl (more content not included)... Normal [facility] CONSULT HNO ID: [id number] Author: DAFNE LEVINE MD Service: Pain Management Author Type: Physician Type: Consults Filed: 05/02/2024 17:29 Note Text: Name: ZACKERY NUNEZ Age: [age] year old PAIN MANAGEMENT: Right periprosthetic proximal tibial fracture; history of right TKA, chronic pain Pain Description: Patient tearful; complains of terrible pain in her right knee. Throbbing sharp, constant Interval HPI: 24H Comfort Meds: Tylenol 1 g every 8 hours Butrans 20 mcg patch (to be changed 05/08) Gabapentin 900 mg twice daily Dilaudid 0.4 mg IV every 3 hours as needed Morphine 2 mg IV x 1 Oxycodone 5-10 mg every 4 hours as needed Subjective HPI: 64-year-old female with history of chronic multifactorial pain (RA, chronic back pain, right TKA 10 years ago) opiate dependent presented 05/02 after injury on her deck. Patient's left leg fell through the deck causing her right leg to bend awkwardly with immediate severe pain in her right lower extremity inability to ambulate. Patient was seen at [place] ED and transferred to [facility] for surgical intervention of right periprosthetic proximal tibia fracture Patient goes to Dr. Ward in [place] for pain management since 2012. Home pain regimen includes Butrans 20 mcg patch (placed yesterday), Percocet 5/325 up to 3 tabs daily, gabapentin 900 mg at 12N and 600 mg at 10PM. She lives at home with her . OARRS Review: 58 prescriptions from 1 prescriber. Opiate dependent. Most recent prescriptions: 03/26, 04/29 Butrans 20 mcg patch #4 04/18 Percocet 5/325 #84 04/10 gabapentin 300 mg #4 mid 50 (90-day supply) Current Facility-Administered Medications Medication Dose Route Frequency Provider Last Rate Last Admin predniSONE 10 mg tab(s) (DELTASONE) 10 mg ORAL PRN Nate Acosta MD amitriptyline 10 mg tab(s) (ELAVIL) 10 mg ORAL AT BEDTIME Nate Acosta MD citalopram 40 mg tab(s) (CeleXA) 40 mg ORAL DAILY Nate Acosta MD 40 mg at 05/02/24 1502 promethazine 25 mg tab(s) (PHENERGAN) 25 mg ORAL q 6 H PRN Nate Acosta MD promethazine 25 mg suppository (PHENERGAN) 25 mg RECTAL q 6 H PRN Nate Acosta MD SUMAtriptan 50 mg tab(s) (IMITREX) 50 mg ORAL PRN Nate Acosta MD hyoscyamine sublingual 0.125 mg tab(s) (LEVSIN SL) 0.125 mg SUBLINGUAL q 4 H PRN Nate Acosta MD atorvastatin 10 mg tab(s) (LIPITOR) 10 mg ORAL DAILY Nate Acosta MD busPIRone 30 mg tab(s) (BUSPAR) 30 mg ORAL BID Nate Acosta MD 30 mg at 05/02/24 1502 estradiol 3 g vaginal cream (ESTRACE) [id number] Applicator VAGINAL DAILY Nate Acosta MD lisinopril 10 mg tab(s) (ZESTRIL) 10 mg ORAL DAILY Nate Acosta MD NaCl 0.9% iv flush bag 20 mL INTRAVENOUS PRN Nate Acosta MD lactated ringers iv infusion 100 mL/hr INTRAVENOUS CONTINUOUS Nate Acosta MD 100 mL/hr at 05/02/24 1709 100 mL/hr at 05/02/24 1709 ondansetron (PF) 4 mg injection (ZOFRAN) 4 mg INTRAVENOUS q 6 H PRN Nate Acosta MD melatonin 3 mg tab(s) 3 mg ORAL AT BEDTIME PRN Nate Acosta MD acetaminophen 1,000 mg tab(s) (TYLENOL) 1,000 mg ORAL q 8 H Nate Acosta MD 1,000 mg at 05/02/[address] 40 mg tab(s) (PROTONIX) 40 mg ORAL DAILY (6 AM) Nate Acosta MD [START ON 05/03/2024] senna-docusate 8.6-50 mg 1 tablet (SENNA-S) 1 tablet ORAL BID Dafne Levine MD HYDROmorphone 0.5 mg injection (DILAUDID) 0.5 mg INTRAVENOUS q 3 H PRN Dafne Levine MD oxyCODONE IR 5 mg tab(s) (ROXICODONE) 5 mg ORAL q 4 H PRN Dafne Levine MD 5 mg at 05/02/24 1656 [START ON 05/03/2024] gabapentin 900 mg cap(s) (NEURONTIN) 900 mg ORAL DAILY AT 12 PM Dafne Levine MD gabapentin 600 mg cap(s) (NEURONTIN) 600 mg ORAL AT BEDTIME Dafne Levine MD lisinopril (ZESTRIL) 10 mg tablet, Take 1 tablet by mouth once daily., Disp: 10 tablet, Rfl: 0 atorvastatin (LIPITOR) 10 mg tablet, Take 1 tablet by mouth once daily. (Patient taking differently: Take 10 mg by mouth daily at bedtime.), Disp: 90 tablet, Rfl: 3 busPIRone HCl 30 mg tablet, Take 1 tablet by mouth two times a day., Disp: 180 tablet, Rfl: 3 omeprazole (PRILOSEC) 40 mg capsule, Take 40 mg by mouth once daily., Disp: , Rfl: citalopram (CELEXA) 40 mg tablet, Take 1 tablet by mouth once daily., Disp: 90 tablet, Rfl: 3 oxyCODONE-acetaminophen (PERCOCET) 5-325 mg tablet, 1 tablet three times daily as needed., Disp: , Rfl: amitriptyline (ELAVIL) 10 mg tablet, Take 1 tablet by mouth daily at bedtime., Disp: , Rfl: gabapentin (NEURONTIN) 300 mg capsule, Take 300 mg by mouth. 900 mg (3 tabs) a.m, 600 mg (2 tabs) p.m, Disp: , Rfl: Cetirizine 10 mg cap, Take by mouth., Disp: , Rfl: lisinopril (ZESTRIL) 10 mg tablet, Take 1 tablet by mouth once daily., Disp: 90 tablet, Rfl: 3 estradiol (ESTRACE) 0.01 % (0.1 mg/gram) vaginal cream, Use 3 g vaginally once daily., Disp: 42.5 g, Rfl: 2 hyoscyamine sublingual (LEVSIN/SL) 0.125 mg, Dissolve 1 tablet under the tongue ever (more content not included)... [facility] ED NOTEon 05-02-2024 ED NOTE HNO ID: [id number] Author: RUSS YANG RN Service: Emergency Medicine Author Type: Registered Nurse Type: ED Notes Filed: 05/02/2024 13:00 Note Text: Report given to JOURDAN Arroyo in presurg. Pt updated on plan of care. [facility] ED NOTE HNO ID: [id number] Author: GA WAKEFIELD DO Service: Emergency Medicine Author Type: Physician Type: ED Notes Filed: 05/02/2024 05:41 Note Text: Attending Note I evaluated the patient and personally participated in the cotton components. I personally saw the patient and performed a substantive portion of the visit including all aspects of the medical decision making. I agree with the resident's findings and plan as documented and have discussed the case and management of the patient's care with the resident. 64-year-old female presenting with right leg pain. She was sent here from outside hospital after she was found to have a right proximal tibial periprosthetic fracture and a right patellar fracture. She had a knee replacement about 10 years ago. She states that she was chasing a stray cat on her deck when her left foot went through the deck and her right foot bent the opposite leg. She denies hitting her head or losing consciousness. She denies any other injury. She had x-ray imaging performed showing a right proximal tibial periprosthetic fracture and a right patellar fracture. Denies any numbness or tingling. She typically walks without assistance although she states she occasionally uses a walker when she goes shopping due to RA. On exam, vital signs reviewed. Patient is afebrile and nontoxic appearing. Alert and oriented ?3 answering questions appropriately. Skin is warm and dry with no rash or diaphoresis. No jaundice or scleral icterus. Neck supple no JVD. Trachea midline. No midline cervical spine tenderness or step-offs. Head atraumatic and normocephalic. PERRLA, EOMI. Heart regular rate and rhythm with no murmurs rubs or gallops. Lungs clear bilaterally with no wheezing rales or rhonchi. Abdomen soft nontender no palpable masses or peritoneal signs. Bowel sounds present. Distal pulses intact and symmetric in all 4 extremities. No lower extremity edema. No unilateral leg swelling. Tenderness to palpation to the right proximal tibia. Compartments are soft. Sensation intact in all dermatomal distributions. Cranial nerves grossly intact Medical Decision Makin-year-old female presenting with a right proximal tibial periprosthetic fracture and a right patellar fracture. She is status post total right knee replacement about 10 years ago. Neurovascularly intact. Compartments soft. X-ray results reviewed and uploaded into our system. Patient being treated with analgesics here for pain control. Orthopedics has been consulted. Normal [facility] ED PROV NOTEon 05-02-2024 ED PROV NOTE HNO ID: [id number] Author: GA WAKEFIELD DO Service: Emergency Medicine Author Type: Resident Type: ED Provider Notes Filed: 05/02/2024 23:43 Note Text: -- Attestation signed by Ga Wakefield DO at 05/02/2024 11:43 PM Signature: Ga Wakefield DO Date: 05/02/2024 Time: 11:43 PM -- ED Provider Note Patient Name: Zackery Nunez : 1960 SERVICE DATE: 05/02/24 History Patient presents with: Functional Transfers: Pt arrives via EMS as a transfer from [place] for a surgical cx. Pt states she went to catch a stray cat at her house and went to turn to go back into her house, she felt a crunch in her right leg. Hx previous right knee replacement, and has fractures on and around replacement. Pt AANDOx3, rates pain 12/03. Pt has full leg immobilizer in place HPI Patient is a 64-year-old female with history as documented below presenting to the emergency department as a transfer from [place] for Ortho consult for right sided periprosthetic Proximal tibial and right patellar fracture. Patient states she had a knee replacement about 10 years ago at [facility]. Earlier today, she was chasing a stray cat on her deck when her left foot went through the deck in her right foot but in the opposite direction she was stuck there. Denies any LOC or head injury. Denies any other injury. She initially had an x-ray that showed the fracture. She was then sent here for further evaluation and treatment. Denies any headache, blurry vision, chest pain, shortness of breath, numbness/tingling. PAST MEDICAL HISTORY Diagnosis Date Anxiety disorder [...] Never Smokeless tobacco: Never Vaping Use Vaping status: Never Used Substance and Sexual Activity Alcohol use: No Drug use: No Sexual activity: Not Currently ALLERGIES Allergen Reactions Vaibhav [Fexofenadi* Intolerance Augmentin [Amoxicil* Intolerance Bentyl [Dicyclomine* GI Upset Biaxin [Clarithromy* Intolerance Ceclor [Cefaclor] Intolerance Celebrex [Celecoxib] Intolerance Colestipol Other: See Comments shaky/headaches/increased nausea Compazine [Prochlor* Intolerance Doxepin Intolerance Fentanyl Intolerance Humira [Adalimumab] Intolerance Levaquin [Levofloxa* Intolerance Metformin GI Upset Gi intolerance Plaquenil [Hydroxyc* Intolerance Seldane Intolerance Septra [Sulfamethox* Intolerance Sulfa (Sulfonamide * Intolerance Vibramycin [Doxycyc* Intolerance Vicodin [Hydrocodon* Intolerance Review of Systems Constitutional: Negative for chills, fatigue and fever. Respiratory: Negative for cough, shortness of breath and wheezing. Cardiovascular: Negative for chest pain, palpitations and leg swelling. Gastrointestinal: Negative for abdominal pain, nausea and vomiting. Musculoskeletal: Right knee pain Neurological: Negative for syncope, weakness, light-headedness, numbness and headaches. Physical Exam Vitals [05/02/24 0503] BP Pulse Temp Temp src Resp SpO2 Weight Height 100/61 77 37.3 ?C (99.2 ?F) Oral 18 100 % 90.7 kg (200 lb) -- Physical Exam Vitals and nursing note reviewed. Constitutional: General: She is not in acute distress. Appearance: Normal appearance. She is not ill-appearing. HENT: Head: Normocephalic and atraumatic. Nose: Nose normal. No congestion or rhinorrhea. Eyes: General: Right eye: No discharge. Left eye: No discharge. Extraocular Movements: Extraocular move (more content not included)... [facility] HISTORY PHYSICALon HISTORY PHYSICAL HNO ID: [id number] Author: SYDNI WAGGONER MD Service: Orthopaedic Surgery Author Type: Physician Type: H&P Filed: 05/02/2024 22:07 Note Text: Orthopaedic Trauma Surgery Attending Addendum Reviewed resident History and Physical. The patient was personally seen and examined on 05/02/2024. Agree with resident history, physical examination, image interpretation, assessment and plan unless otherwise noted. 64 year old female was transferred to [facility] on 05/02/2024 for management of a complex right periprosthetic proximal tibia fracture. X-rays of the right knee from 05/01/2024 demonstrate a displaced transverse patella fracture and a displaced and comminuted proximal tibia fracture at the level of the keel of the tibial component of the total knee arthroplasty with extension deformity of the proximal segment. Given the fracture location and amount of comminution/bone loss present, formal open reduction internal fixation is unlikely to provide adequate fixation and stabilization. The two options available are 1) closed reduction of the periprosthetic right proximal tibia fracture, potential lag screw insertion and application of a right lower extremity knee-spanning uniplanar external fixator or 2) revision right total knee arthroplasty. After discussing the risks and benefits to each procedure, the patient elected to proceed with attempted reconstruction as opposed to revision right total knee arthroplasty. The risks, limitations, benefits and alternatives to all treatment options including non-operative and operative management of the patient's right periprostheic proximal tibia fracture were discussed with the patient. The risks of the operation include, but are not limited to, the risks associated with general anesthesia, infection, bleeding, damage to nearby structures (such as arteries, veins, nerves, muscle, tendons, ligaments), chronic pain, malunion, nonunion, deep venous thromboses, pulmonary embolism, hardware failure and the need for future operations. The patient elected to proceed with open reduction internal fixation versus application of a right lower extremity knee-spanning uniplanar external fixator for the right periprosthetic proximal tibia fracture. All questions and concerns were answered and addressed. The informed consent was reviewed. Sydni Waggoner MD Orthopaedic Trauma Surgery 05/02/2024 9:24 PM Orthopaedic Surgery History and Physical Chief Complaint: Right periprosthetic proximal tibia fracture Admitting Physician: Dr. Rosaline MD Date: May 02, 2024 Time: 5:40 AM History of Present Illness Zackery Nunez is a 64 year old female who presents after sustaining injury to her right leg earlier today. Patient states she was out on her deck when her left leg fell through causing her right leg to bend awkwardly. She had immediate severe pain and inability to ambulate following this. Presented to [place] ED and was transferred to [facility] for orthopedic evaluation. Patient had her right total knee done in [place] by a Dr. Campos 10 years ago. Patient denies numbness or tingling. She has not eaten today. Review of Systems A 10-point review of systems was completed and is otherwise non-contributory to the patient's presenting condition. History PAST MEDICAL HISTORY Diagnosis Date Anxiety disorder [...] HX TUBAL LIGATION HX 08/11/1997 VAGINAL HYSTERECTOMY Cervical Cancer Screening due on 02/20/2021 Diabetic Foot Exam due on 05/12/2024 Mammogram Screening due on 05/29/2024 RSV Vaccine(1 - Risk 60-74 years 1-dose series) due on 05/12/2024 Pneumococcal Vaccine: 65+(1 of 2 - PCV) due on 05/12/2024 DTaP,Tdap,Td Vaccine(1 - Tdap) due on 11/20/2024 Covid-19 Vaccine(1) due on 11/20/2024 HbA1C due on 07/07/2024 Depression Screening due on 11/20/2024 Urine Albumin:Creatinine Ratio due on 11/22/2024 LDL Cholesterol due on 11/22/2024 Dilated Retinal Exam due on 11/26/2024 Serum Creatinine due on 01/04 (more content not included)... [facility] PT panel Coag (PPP)on 2023 INR Coag (PPP) [Relative time] 1.1 {INR} Normal 0.9-1.3 [facility] Comment on above: Order Comment: Speci men Type: BLOOD SPECIMENOrdering Facility: [facility] Address: [address] [place] [address] Result Comment: Ruma min K Antagonist (VKA) Therapeutic Range: INR 2 to 3 (Target INR of 2.5) Note: For patients treated with VKA drugs, such as warfarin, the [place] [employer] 2012 Guideline recommends a therapeutic INR range of 2 to 3 (target INR of 2.5). This recommendation includes high-risk patients with antiphospholipid syndrome with previous arterial or venous thromboembolism, current-generation mechanical or bioprosthetic aortic heart valve replacement. Note: Patients with mechanical aortic valve replacement and additional risk factors for thromboembolic events (atrial fibrillation, previous thromboembolism, LV dysfunction, hypercoagulable conditions) or an older generation mechanical AVR (i.e., ball in-Cage) or any mechanical MVR should have a INR therapeutic range of 2.5 to 3.5 (target INR of 3). Celio GH, et al. Chest 2012, 141:7S-47S Garland JACOBSEN et al. [facility] 2017, 70: 252-289 Performed By: #### 3 4528-0, 17605-2 ####[facility] LABORATORYCLIA [id number] [address] PT Coag (PPP) [Time] 11.7 s Normal 9.7-13.0 [facility] Comment on above: Order Comment: Speci men Type: BLOOD SPECIMENOrdering Facility: [facility] Address: [address] [place] [address] Performed By: #### 3 4528-0, 07214-3 ####[facility] LABORATORYCLIA [id number] [address] TYPE + SCREENon 05-02-2024 ABO A Normal [facility] Comment on above: Order Comment: Speci men Type: BLOOD SPECIMEN Ordering Facility: [facility] Address: [address] [place] [address] Performed By: #### T SCR #### [facility] [place] [facility] CLIA [id number] [address] Rh Nom (Bld) Positive Normal [facility] Comment on above: Order Comment: Speci men Type: BLOOD SPECIMEN Ordering Facility: [facility] Address: [address] [place] [address] Performed By: #### T SCR #### [facility] [place] [facility] CLIA [id number] [address] TYPE AND SCREEN EXPIRATION 05/05/2024 23:59 Normal [facility] Comment on above: Order Comment: Speci men Type: BLOOD SPECIMEN Ordering Facility: [facility] Address: [address] [place] [address] Performed By: #### T SCR #### [facility] [place] [facility] CLIA [id number] [address] [place] aPTT PPPon 05-02-2024 aPTT Coag (PPP) [Time] 32.9 s High 23.0-32.4 [facility] Comment on above: Order Comment: Speci men Type: BLOOD SPECIMENOrdering Facility: [facility] Address: [facility] [place] [address] Performed By: #### 3 4528-0, 16975-2 ####[facility] LABORATORYCLIA [id number] [place] [id number] [facility] Bedside Glucoseon 05-01-2024 [place] GLU 92 mg/dL Normal 74-106 [facility] Comment on above: Result Comment: PREM FREEMAN OF PATIENT CARE PER NURSING PROTOCOL Performed By: #### L 500.4050, L100.0100 #### [facility] Laboratory [address] [place], [address] Emergency Department Summary on 05-01-2024 Emergency Department Summary [facility] Medical Records Department [address] [place] [address] Emergency Department Summary 05/01/24 MR#: [id number] Acct: [id number] Name: ZACKERY NUNEZ ESPINOZA Rep #: [id number] : 1960 64 From: Eliel Elise DO PCP: Dr. Mikayla Strange MD Status:REG ER Location: ED HPI History of Present Illness HPI Narrative: Patient presents with right knee pain that began tonight. Patient states that she was walking on her deck and a poor broke. Patient states her left leg fell through the deck and her right knee twisted. Patient states she has a history of right total knee replacement. Patient states her pain as stabbing. Patient states it is worse with any movement. Patient mitts to some tingling going down into her toes. Patient denies any head injury or loss of consciousness. Patient denies any weakness. Chief Complaint: Lower Extremity Injury Informant: patient Occured/Mechanism Mechanism/Context: Yes fall Comment: Twisted right knee Onset/Context/Timing Onset: Today Context: Sudden Onset Timing: Continuous Quality of Pain: Stabbing Location: Right knee and lower leg Worsened by: Movement Relieved by: Nothing Associated Symptoms Associated Symptoms: Positive for Parasthesia; Negative for Weakness or Loss of Funtion [facility] Medical History Wears glasses Post-menopausal Marijuana use History of steroid therapy Diabetes Walker as ambulation aid Low iron High cholesterol Back pain Injury of head and neck Migraine headache Heartburn Gastric reflux Non-smoker Leg cramps History of pain when walking History of edema History of stress test History of rheumatic fever Chest pain Bulging discs Glaucoma IBS (irritable bowel syndrome) Fibromyalgia Rheumatoid arthritis Home Medications ???Medication ???Instructions ???Recorded ???Last Taken ???Type atorvastatin 10 mg tablet 10 mg PO QHS cholestorol 05/14/14 08/25/22 History citalopram 40 mg tablet 40 mg PO DAILY anxiety 05/14/14 08/25/22 History cyclobenzaprine 10 mg tablet 10 mg PO TID Spasms 05/14/14 08/25/22 History latanoprost 0.005 % eye drops 1 drp EACH EYE QHS glaucoma 05/14/14 08/25/22 History prednisone 10 mg tablet 10 mg PO PRN PRN flare up 05/14/14 08/25/22 History sumatriptan succinate 50 mg tablet 50 mg PO .X1 PRN PRN Headache 05/14/14 08/25/22 History promethazine 25 mg rectal 25 mg PO PRN PRN Nausea 12/17/14 08/25/22 History suppository hyoscyamine sulfate 0.125 mg 0.125 mg SL Q4H PRN PRN Nausea 04/20/16 08/25/22 History sublingual tablet oxycodone-acetaminophen 7.5 mg-325 1 tab PO TID pain 04/20/16 08/25/22 History mg tablet buspirone 30 mg tablet 30 mg PO BID anxiety 12/20/17 08/25/22 History amitriptyline 10 mg tablet 10 mg PO QHS 03/25/20 08/25/22 History gabapentin 300 mg capsule 900 mg PO DAILY 03/25/20 08/25/22 History omeprazole 20 mg capsule,delayed 40 mg PO DAILY 03/25/20 08/25/22 History release upadacitinib 15 mg tablet,extended 15 mg PO DAILY 03/25/20 08/25/22 History release 24 hr (Rinvoq) lisinopril 10 mg tablet 10 mg PO DAILY 08/18/22 08/26/22 History metformin 500 mg tablet,extended 600 mg PO QHS 08/18/22 08/25/22 History release 24 hr buprenorphine 20 mcg/hour weekly 1 patch topical QWEEK 05/01/24 Unknown History transdermal patch Allergy/AdvReac Type Severity Reaction Status Date / Time adalimumab (From Humira) Allergy Vomiting Verified 05/01/24 20:51 cefaclor (From Ceclor) Allergy Unknown Verified 05/01/24 20:51 celecoxib (From Celebrex) Allergy Itching Verified 05/01/24 20:51 doxepin (Doxepin) Allergy Unknown Verified 05/01/24 20:51 doxycycline calcium (From Allergy Unknown Verified 05/01/24 20:51 Vibramycin) doxycycline hyclate (From Allergy Unknown Verified 05/01/24 20:51 Vibramycin) doxycycline monohydrate Allergy Unknown Verified 05/01/24 20:51 (From Vibramycin) hydrocodone bitartrate (From Allergy Unknown Verified 05/01/24 20:51 Vicodin) hydroxychloroquine Allergy Shortness Verified 05/01/24 20:51 (Hydroxychloroquine) of breath leflunomide (From Arava) Allergy Other Verified 05/01/24 20:51 prochlorperazine (From Allergy Shortness Verified 05/01/24 20:51 Compazine) of breath prochlorperazine edisylate Allergy Shortness Verified 05/01/24 20:51 (From Compazine) of breath prochlorperazine maleate Allergy Shortness Verified 05/01/24 20:51 (From Compazine) of breath sulfamethoxazole (From Allergy Unknown Verified 05/01/24 20:51 Septra) terfenadine (From Seldane) Allergy Unknown Verified 05/01/24 20:51 trazodone Allergy Other Verified 05/01/24 20:51 trimethoprim (From Septra) Allergy Unknown Verified 05/01/24 20:51 clarithromycin (From Biaxin) AdvReac Vomiting Verified 05/01/24 20 (more content not included)... Normal [facility] Knee 1 or 2 Viewson 05-01-20 24 Knee 1 or 2 Views [facility] Imaging Services [address] [place], [place] [id number] Knee 1 or 2 Views MR#: [id number] Acct: [id number] Name: ZACKERY NUNEZ Rep #: [id number] : 1960 F 64 From: Miki araya DO PCP: Dr. Mikayla Strange MD Status: REG ER Study: Knee 1 or 2 Views Date of Exam: 05/01/24 Exam# [id number] Ordering Dr: Eliel Elise DO [id number] EXAM: XR RIGHT KNEE, 1 OR 2 VIEWS CLINICAL INDICATION: Injury/Pain TECHNIQUE: Frontal and/or lateral views of the right knee. COMPARISON: Right leg radiographs on the same date and right knee radiographs, 10/22/2014 FINDINGS: BONES/JOINTS: Proximal tibial periprosthetic dorsally angulated fracture extending through the tibial tubercle and fracture of the patella status post total knee arthroplasty. No sclerotic or destructive changes observed. SOFT TISSUES: Extensive anterior soft tissue swelling. No unintended radiopaque foreign body. RAD/Knee 1 or 2 Views IMPRESSION: Proximal tibial periprosthetic dorsally angulated fracture extending through the tibial tubercle and fracture of the patella status post total knee arthroplasty. Electronically Signed: Miki Lopez DO at 22:23 EST , CC: Dr. Eliel Elise DO; Dr. Mikayla Strange MD Digital Marketing Manager: Signed Normal [facility] Tibia Fibula 2 Viewson 05-01 Tibia Fibula 2 Views [facility] Imaging Services [address] [place] [address] Tibia Fibula 2 Views MR#: [id number] Acct: [id number] Name: ZACKERY NUNEZ ESPINOZA Rep #: [id number] : 1960 F 64 From: Miki araya DO PCP: Dr. Mikayla Strange MD Status: REG ER Study: Tibia Fibula 2 Views Date of Exam: 05/01/24 Exam# [id number] Ordering Dr: Eliel Elise DO [id number] EXAM: XR RIGHT TIBIA AND FIBULA, 2 VIEWS CLINICAL INDICATION: Injury/Pain TECHNIQUE: Frontal and lateral views of the right tibia and fibula. COMPARISON: Knee on the same date. FINDINGS: BONES/JOINTS: Status post total knee arthroplasty with periprosthetic fracture of the proximal tibia and patella. Degenerative changes at the ankle. No sclerotic or destructive changes observed. SOFT TISSUES: Extensive soft tissue swelling. No radiopaque foreign body. RAD/Tibia Fibula 2 Views IMPRESSION: Status post total knee arthroplasty with periprosthetic fracture of the proximal tibia and patella. Electronically Signed: Miki Lopez DO at 22:24 EST , CC: Dr. Eliel Elise DO; Dr. Mikayla Strange MD Digital Marketing Manager: [facility]igned [facility] TEST COMMENT Normal [facility] Comment on above: Order Comment: [id number] OXYCODONE URINE Result Comment: TEST S RESULT UNITS REFERENCE INTERVAL LAB Oxycodone/Oxymorphone Confirm . 01 Oxycodone/Oxymorph Positive Geocas=725 Test includes Oxycodone and Oxymorphone Oxycodone Positive Oxycodone Conf, MS, UR 1247 ng/mL Oexpsd=891 01 Oxycodone detected; this finding is consistent with use of medications that include Oxycontin, Percodan, Percocet, Tylox, or generic formulations. Drugs listed are patient support representative of common sources of the compound detected and are not intended to include all possible sources. Oxymorphone Positive Oxymorphone Conf, MS, UR 392 ng/mL Wwdnbf=864 01 Oxymorphone detected; this finding is consistent with use of medications that include Numorphan, Opana, or drugs containing Oxycodone, or generic formulations. Drugs listed are patient support representative of common sources of the compound detected and are not intended to include all possible sources. Please Note: 01 Drug test results should be interpreted in the context of clinical information. Patient metabolic variables, specific drug chemistry, and specimen characteristics can affect test outcome. Technical consultation is available if a test result is inconsistent with an expected outcome. Email: [email or web address] Drug brands, if listed herein, are trademarks of their respective owners. Performing lab: [facility] [address] [place] [address] Dir: Loli Hassan, PhD For inquiries, the physician may contact Lab: [phone] Performed By: #### M 100.636, M200.1000 #### [facility] Laboratory [address] [place], [place], [id number] Miscellaneous Lab Procedure 2on 04-27-2024 [facility] TEST 2 COMMENT Normal [facility] Comment on above: Order Comment: [id number] BUPRENOEPHINE URINE Result Comment: TEST S RESULT UNITS REFERENCE INTERVAL LAB --- Buprenorphine, Urine Buprenorphine Negative Cutoff=10 Please Note: 01 Confirmation performed by Mass Spectrometry Performing lab: [facility] [address] [place] [address] Dir: Loli Hassan, PhD For inquiries, the physician may contact Lab: [phone] Performed By: #### M 100.636, M200.1000 #### [facility] [address] [place], [place], [address] CBC W/Diff, Automatedon 10-2 PLT EST ADEQUATE Normal ADEQ [facility] Comment on above: Performed By: #### L 500.4050, L100.0100 #### [facility] [address] [place], [address] Comprehensive Metabolic Prof ilon 04-18-2024 Albumin [Mass/Vol] 3.8 g/dL Normal 3.2-5.0 [facility] Comment on above: Performed By: #### L 500.4050, L100.0100 #### [facility] [address] [place], [address] Albumin/Globulin [Mass ratio] 1.1 {ratio} Normal 0.9-2.4 [facility] Comment on above: Performed By: #### L 500.4050, L100.0100 #### [facility] [address] [place], [address] ALK P 68 U/L Normal 45-117 [facility] Comment on above: Performed By: #### L 500.4050, L100.0100 #### [facility] [address] [place], [address] ALT [Catalytic activity/Vol] 16 U/L Normal 13-56 [facility] Comment on above: Performed By: #### L 500.4050, L100.0100 #### [facility] [address] [place], [address] AST [Catalytic activity/Vol] 17 U/L Normal 15-37 [facility] Comment on above: Performed By: #### L 500.4050, L100.0100 #### [facility] [address] [place], [address] Bilirubin [Mass/Vol] 0.40 mg/dL Normal 0.20-1.00 [facility] Comment on above: Result Comment: For patients on eltrombopag therapy, use of Dimension [place] TBIL is not recommended. Performed By: #### L 500.4050, L100.0100 #### [facility] [address] [place], [address] BUN/CRE 15.0 RATIO Normal 10-20 [facility] Comment on above: Performed By: #### L 500.4050, L100.0100 #### [facility] [address] [place], [address] CA,Total 9.1 mg/dL Normal 8.5-10.1 [facility] Comment on above: Performed By: #### L 500.4050, L100.0100 #### [facility] [address] [place], [address] Chloride [Moles/Vol] 105 mmol/L Normal 98-107 [facility] Comment on above: Performed By: #### L 500.4050, L100.0100 #### [facility] [address] [place], [address] CO2 [Moles/Vol] 28.0 mmol/L Normal 21.0-32.0 [facility] Comment on above: Performed By: #### L 500.4050, L100.0100 #### [facility] [address] [place], [address] Creatinine [Mass/Vol] 1.07 mg/dL High 0.55-1.02 [facility] Comment on above: Result Comment: The validity of the calculated GFR GFRAA in patients over 70 years has not been determined. Clinical correlation is essential. Performed By: #### L 500.4050, L100.0100 #### [facility] [address] [place], [address] EST GFR - AA 66 mL/min Normal >60 [facility] Comment on above: Result Comment: Afri can Fijian GFR Calc Performed By: #### L 500.4050, L100.0100 #### [facility] [address] [place], [address] GAP 4 Low 5-15 [facility] Comment on above: Performed By: #### L 500.4050, L100.0100 #### [facility] [address] [place], [address] GFR/1.73 sq M.predicted among non-blacks MDRD (S/P/Bld) [Vol rate/Area] 55 mL/min/{1.73_m2} Low >60 [facility] Comment on above: Result Comment: Non- GFR Calc Performed By: #### L 500.4050, L100.0100 #### [facility] [address] [place], [address] Globulin (S) [Mass/Vol] 3.6 g/dL Normal 2.2-4.2 [facility] Comment on above: Performed By: #### L 500.4050, L100.0100 #### [facility] [address] [place], [address] Glucose [Mass/Vol] 77 mg/dL Normal 74-106 [facility] Comment on above: Performed By: #### L 500.4050, L100.0100 #### [facility] [address] [place], [address] Potassium [Moles/Vol] 4.2 mmol/L Normal 3.5-5.1 [facility] Comment on above: Performed By: #### L 500.4050, L100.0100 #### [facility] [address] [place], [address] Sodium [Moles/Vol] 136 mmol/L Normal 136-145 [facility] Comment on above: Performed By: #### L 500.4050, L100.0100 #### [facility] [address] [place], [address] T PROT 7.4 g/dL Normal 6.4-8.2 [facility] Comment on above: Performed By: #### L 500.4050, L100.0100 #### [facility] [address] [place], [place], [address] Urea nitrogen [Mass/Vol] 16 mg/dL Normal 7-18 [facility] Comment on above: Performed By: #### L 500.4050, L100.0100 #### [facility] [address] [place], [place], [address] CNPNon 04-11-2024 CNPN Telephone (UROLWS) -- ZACKERY NUNEZ ([id number]) 1960 F Date Time Provider Department 04/11/24 KD STOCKTON During your visit today, we recorded the following information about you: Lula Segovia LPN 04/11/2024 12:52 PM Signed ----- Message from Kd Stockton PA-C sent at 04/10/2024 7:05 PM EDT ----- No infection in the urine Kd Stockton [place], [place], Lula Alcala LPN 04/11/2024 12:57 PM Signed Called patient. No answer- left messenger to call clinic for results or check her MyChart. DUANE Johns [place], MA 04/12/2024 2:11 PM Signed Pt viewed in Mychart. Mayela Chopra MA Allergies As of Date: 04/11/2024 Noted Allergy Reaction VAIBHAV (FEXOFENADINE HCL) 07/14/2014 5 - Intolerance AUGMENTIN (AMOXICILLIN-POT CLAVUL*07/14/2014 5 - Intolerance BENTYL (DICYCLOMINE HCL) 06/24/2015 8 - GI Upset BIAXIN (CLARITHROMYCIN) 07/14/2014 5 - Intolerance CECLOR (CEFACLOR) 07/14/2014 5 - Intolerance CELEBREX (CELECOXIB) 07/14/2014 5 - Intolerance COLESTIPOL 11/24/2014 14 - Other: See Comments Comments: shaky/headaches/increased nausea COMPAZINE (PROCHLORPERAZINE EDISY*07/14/2014 5 - Intolerance DOXEPIN 07/14/2014 5 - Intolerance FENTANYL 07/14/2014 5 - Intolerance HUMIRA (ADALIMUMAB) 07/14/2014 5 - Intolerance LEVAQUIN (LEVOFLOXACIN) 07/14/2014 5 - Intolerance METFORMIN 11/21/2023 8 - GI Upset Comments: Gi intolerance PLAQUENIL (HYDROXYCHLOROQUINE SUL*07/14/2014 5 - Intolerance SELDANE 07/14/2014 5 - Intolerance SEPTRA (SULFAMETHOXAZOLE-TRIMETHO *07/14/2014 5 - Intolerance SULFA (SULFONAMIDE ANTIBIOTICS) 07/14/2014 5 - Intolerance VIBRAMYCIN (DOXYCYCLINE CALCIUM) 07/14/2014 5 - Intolerance VICODIN (HYDROCODONE-ACETAMINOPHE* 07/14/2014 5 - Intolerance Date Reviewed: 04/09/2024 Reviewed by: Preeti Salgado RN - Fully Assessed Reason for Visit: Results [95] Prescriptions as of 04/12/2024 - estradiol (ESTRACE) 0.01 % (0.1 mg/gram) vaginal cream Use 3 g vaginally once daily. - atorvastatin (LIPITOR) 10 mg tablet Take 1 tablet by mouth once daily. - busPIRone HCl 30 mg tablet Take 1 tablet by mouth two times a day. - omeprazole (PRILOSEC) 40 mg capsule Take 40 mg by mouth once daily. - hyoscyamine sublingual (LEVSIN/SL) 0.125 mg Dissolve 1 tablet under the tongue every 4 hours as needed. - citalopram (CELEXA) 40 mg tablet Take 1 tablet by mouth once daily. - promethazine (PHENERGAN) 25 mg tablet Take 1 tablet by mouth every 6 hours as needed. - promethazine (PHENERGAN) 25 mg suppository 1 Suppository by RECTAL route every 6 hours as needed. - SUMAtriptan (IMITREX) 50 mg tablet Take 1 tablet (50 mg) by mouth as needed. - lisinopril (ZESTRIL) 10 mg tablet Take 1 tablet by mouth once daily. - buprenorphine 20 mcg/hour ptwk APPLY 1 PATCH TOPICALLY ONCE A WEEK FOR 4 WEEKS - oxyCODONE-acetaminophen (PERCOCET) 5-325 mg tablet 1 tablet three times daily as needed. - upadacitinib (RINVOQ ORAL) Take 15 mg by mouth. - amitriptyline (ELAVIL) 10 mg tablet Take 1 tablet by mouth daily at bedtime. - gabapentin (NEURONTIN) 300 mg capsule Take 300 mg by mouth. 900 mg (3 tabs) a.m, 600 mg (2 tabs) p.m - predniSONE (DELTASONE) 10 mg tablet Take 1 tablet by mouth as needed for Pain. - Cetirizine 10 mg cap Take by mouth. - CALCIUM POLYCARBOPHIL (FIBER LAXATIVE ORAL) Take by mouth. - multivitamin tablet Take 1 tablet by mouth once daily. - latanoprost (XALATAN) 0.005 % ophthalmic solution 1 Drop daily at bedtime. - docusate sodium (COLACE) 100 mg capsule Take 100 mg by mouth twice daily. Problem List As Of Date 04/11/2024 Noted Resolved Nausea alone [R11.0] 07/30/2014 07/30/2014 Abdominal pain, epigastric [R10.13] 07/30/2014 07/30/2014 Rheumatoid arthritis (HCC) [M06.9] 05/11/2019 Fibromyalgia [M79.7] 05/11/2019 DDD (degenerative disc disease), lumbar [M51.36*05/11/2019 Glaucoma suspect of both eyes [H40.003] 05/11/2019 Irritable bowel syndrome with constipation [K58*05/11/2019 Chronic insomnia [F51.04] 05/11/2019 HLD (hyperlipidemia) [E78.5] 05/11/2019 Hyperglycemia [R73.9] 05/11/2019 03/12/2021 Panic disorder [F41.0] 05/11/2019 Migraine without aura, intractable, without sta*05/11/2019 Chronic back pain [M54.9, G89.29] 09/17/2021 Type 2 diabetes mellitus without complication, *03/12/2021 Elevated BP without diagnosis of hypertension [*11/17/2021 01/14/2022 HTN (hypertension) [I10] 01/14/2022 Obesity, Class III, BMI 40-49.9 (morbid obesity*10/25/2022 05/12/2023 Stage 3 chronic kidney disease (HCC) [N18.30] 10/25/2022 Encounter Status:Closed by MAYELA CHOPRA on 04/12/24 Normal [facility] Bacteria Ur Culton 4 Bacteria identified Cx Nom (U) ORGANISM ID: 1 <10,000 CFU/ml Normal urogenital juan Normal [facility] Comment on above: Performed By: #### 6 30-4 ####[facility] LABCLIA [id number] [address] [facility] CNOVon 04-09-2024 CNOV Office Visit (UROLWS ) -- ZACKERY NUNEZ ([id number]) 1960 F Date Time Provider Department 04/09/24 2:45 PM KD STOCKTON UROLABDI During your visit today, we recorded the following information about you: Temperature Pulse Respiration Blood pressure 98 degrees 66/minute 16/minute 122/75 Weight 92.1 kg Kd Stockton PA-C 04/09/2024 5:48 PM Signed PENDING SALE TO [facility] NEW PATIENT CLINIC NOTE SERVICE DATE: April 09, 2024 NAME: Zackery Nunez CHIEF COMPLAINT: Dysuria and Urinary Tract Infection HISTORY OF PRESENT ILLNESS: Zackery Nunez is a 64 year old female an new patient here for Dysuria and Urinary Tract Infection The patient reports having UTI and treated with antibiotics, but still having dysuria despite no UTI on recent cultures Her symptoms are can be due to Atrophic Vaginitis , we discussed the UTI Prevention Protocol reviewed, Handout given with detailed instructions Topical Estrogen Probiotic AZO /Motrin, Aleve No Cranberry Supp or Juice Instructed the patient to CALL office to get a URINE CULTURE order placed if having UTI symptoms, instead of going to Urgent Care or ER As long as I have seen the patient within 1 year, understanding NO antibiotics will be given until the culture is final If patient has a FEVER > 100.1, we will send her to ER that is not common for uncomplicated UTI LUTS: DYSURIA: yes URGENCY: No FREQUENCY:7 per day NOCTURIA: 0 per night STRAINING TO VOID: No EMPTIES COMPLETELY: Yes UTI: 1 past 12 months GROSS HEMATURIA: no UA DIPSTICK POSITIVE ONLY: yes LABS: No results found for: PSA No results found for: TESTOST Hematocrit (%) Date Value 01/15/2024 37.0 01/05/2024 36.7 11/04/2022 36.7 05/14/2019 43.9 02/09/2014 42.6 02/08/2014 41.3 No results found for: PSA Creatinine Date Value Ref Range Status 01/05/2024 1.11 (H) 0.58 - 0.96 mg/dL Final 11/04/2022 1.09 (H) 0.58 - 0.96 mg/dL Final 04/14/2022 0.90 0.58 - 0.96 mg/dL Final MEDICATIONS: estradiol (ESTRACE) 0.01 % (0.1 mg/gram) vaginal cream Use 3 g vaginally once daily. atorvastatin (LIPITOR) 10 mg tablet Take 1 tablet by mouth once daily. busPIRone HCl 30 mg tablet Take 1 tablet by mouth two times a day. omeprazole (PRILOSEC) 40 mg capsule Take 40 mg by mouth once daily. hyoscyamine sublingual (LEVSIN/SL) 0.125 mg Dissolve 1 tablet under the tongue every 4 hours as needed. citalopram (CELEXA) 40 mg tablet Take 1 tablet by mouth once daily. promethazine (PHENERGAN) 25 mg tablet Take 1 tablet by mouth every 6 hours as needed. promethazine (PHENERGAN) 25 mg suppository 1 Suppository by RECTAL route every 6 hours as needed. SUMAtriptan (IMITREX) 50 mg tablet Take 1 tablet (50 mg) by mouth as needed. lisinopril (ZESTRIL) 10 mg tablet [...] bedtime. gabapentin (NEURONTIN) 300 mg capsule Take 300 mg by mouth. 900 mg (3 tabs) a.m, 600 mg (2 tabs) p.m predniSONE (DELTASONE) 10 mg tablet Take 1 tablet by mouth as needed for Pain. Cetirizine 10 mg cap Take by mouth. CALCIUM POLYCARBOPHIL (FIBER LAXATIVE ORAL) Take by mouth. multivitamin tablet Take 1 tablet by mouth once daily. latanoprost (XALATAN) 0.005 % ophthalmic solution 1 Drop daily at bedtime. docusate sodium (COLACE) 100 mg capsule Take 100 mg by mouth twice daily. PAST MEDICAL HISTORY: PAST MEDICAL HISTORY Diagnosis Date Anxiety disorder Arthritis Chronic back pain Dr. Burks-pain management Depressive disorder, not elsewhere classified Diabetes (HCC) Essential hypertension, benign Fibromyalgia Glaucoma IBS (irritable bowel syndrome) Migraine, unspecified, without mention of intractable migraine without mention of status migrainosus PONV (postoperative nausea and vomiting) Pure hypercholesterolemia Rheumatoid arthritis (HCC) Snoring PAST SURGICAL HISTORY: PAST SURGICAL HISTORY Procedure Laterality Date APPENDECTOMY [...] TUBAL LIGATION HX 08/11/1997 VAGINAL HYSTERECTOMY FAMILY HISTORY: FAMILY HISTORY Problem Relation Age of Onset Diab (more content not included)... Normal [facility] UA DIP, URINE (POC)on 2023 BILIRUBIN UA (POCT) Negative Negative [facility] CLARITY UA (POCT) Slightly Cloudy Cl [facility] COLOR UA (POCT) Yellow [facility] GLUCOSE UA (POCT) Negative Negative mg/dL [facility] Hemoglobin Ql (U) Moderate Abnormal Negative [facility] Interpretation and review of laboratory results Abnormal [facility] KETONE UA (POCT) Negative Negative mg/dL [facility] LEUKOCYTES UA (POCT) Small Abnormal Negative [facility] NITRITE UA (POCT) Negative Negative [facility] PH UA (POCT) 5.5 4.5 - 8.0 [facility] Protein Ql (U) Negative Negative mg/dL [facility] SPECIFIC GRAVITY UA (POCT) 1.020 1.005 - 1.030 [facility] UROBILINOGEN UA (POCT) 0.2 Normal E.U./dL [facility] Location:[facility], [address] [facility], [place], [place], [id number] [place] [address] [facility] C[facility] MAYRAZACKERY ([id number]) 1960 F Date Time Provider Department 03/09/24 [facility] During your visit today, we recorded the following information about you: Mikayla Strange MD 03/09/2024 7:51 AM Signed Her urine does not show an infection. Since still with symptoms and microscopic blood, see urology Hallie Adam LPN 03/09/2024 10:42 AM Signed Message left to pt that the office would send pt the providers his response via my chart. She can call back if she has any questions. Makenna Crowder RN 03/09/2024 10:45 AM Signed Patient notified of results and provider's instructions. Patient verbalizes understanding. Makenna Crowder RN Allergies As of Date: 03/09/2024 Noted Allergy Reaction VAIBHAV (FEXOFENADINE HCL) 07/14/2014 5 - Intolerance AUGMENTIN (AMOXICILLIN-POT CLAVUL*07/14/2014 5 - Intolerance BENTYL (DICYCLOMINE HCL) 06/24/2015 8 - GI Upset BIAXIN (CLARITHROMYCIN) 07/14/2014 5 - Intolerance CECLOR (CEFACLOR) 07/14/2014 5 - Intolerance CELEBREX (CELECOXIB) 07/14/2014 5 - Intolerance COLESTIPOL 11/24/2014 14 - Other: See Comments Comments: shaky/headaches/increased nausea COMPAZINE (PROCHLORPERAZINE EDISY*07/14/2014 5 - Intolerance DOXEPIN 07/14/2014 5 - Intolerance FENTANYL 07/14/2014 5 - Intolerance HUMIRA (ADALIMUMAB) 07/14/2014 5 - Intolerance LEVAQUIN (LEVOFLOXACIN) 07/14/2014 5 - Intolerance METFORMIN 11/21/2023 8 - GI Upset Comments: Gi intolerance PLAQUENIL (HYDROXYCHLOROQUINE SUL*07/14/2014 5 - Intolerance SELDANE 07/14/2014 5 - Intolerance SEPTRA (SULFAMETHOXAZOLE-TRIMETHO *07/14/2014 5 - Intolerance SULFA (SULFONAMIDE ANTIBIOTICS) 07/14/2014 5 - Intolerance VIBRAMYCIN (DOXYCYCLINE CALCIUM) 07/14/2014 5 - Intolerance VICODIN (HYDROCODONE-ACETAMINOPHE* 07/14/2014 5 - Intolerance Date Reviewed: 02/20/2024 Reviewed by: Evelyn Castaneda MA - Fully Assessed Reason for Visit: Results [95] Primary Visit Diagnosis:Dysuria [R30.0] Other Visit Diagnosis:Microscopic hematuria [R31.29] Order(s):CONSULT TO UROLOGY [9041] Order #: [id number]: 1 FUTURE Prescriptions as of 03/09/2024 - atorvastatin (LIPITOR) 10 mg tablet Take 1 tablet by mouth once daily. - busPIRone HCl 30 mg tablet Take 1 tablet by mouth two times a day. - omeprazole (PRILOSEC) 40 mg capsule Take 40 mg by mouth once daily. - hyoscyamine sublingual (LEVSIN/SL) 0.125 mg Dissolve 1 tablet under the tongue every 4 hours as needed. - citalopram (CELEXA) 40 mg tablet Take 1 tablet by mouth once daily. - promethazine (PHENERGAN) 25 mg tablet Take 1 tablet by mouth every 6 hours as needed. - promethazine (PHENERGAN) 25 mg suppository 1 Suppository by RECTAL route every 6 hours as needed. - SUMAtriptan (IMITREX) 50 mg tablet Take 1 tablet (50 mg) by mouth as needed. - lisinopril (ZESTRIL) 10 mg tablet Take 1 tablet by mouth once daily. - buprenorphine 20 mcg/hour ptwk APPLY 1 PATCH TOPICALLY ONCE A WEEK FOR 4 WEEKS - oxyCODONE-acetaminophen (PERCOCET) 5-325 mg tablet 1 tablet three times daily as needed. - upadacitinib (RINVOQ ORAL) Take 15 mg by mouth. - amitriptyline (ELAVIL) 10 mg tablet Take 1 tablet by mouth daily at bedtime. - gabapentin (NEURONTIN) 300 mg capsule Take 300 mg by mouth. 900 mg (3 tabs) a.m, 600 mg (2 tabs) p.m - predniSONE (DELTASONE) 10 mg tablet Take 1 tablet by mouth as needed for Pain. - Cetirizine 10 mg cap Take by mouth. - CALCIUM POLYCARBOPHIL (FIBER LAXATIVE ORAL) Take by mouth. - multivitamin tablet Take 1 tablet by mouth once daily. - latanoprost (XALATAN) 0.005 % ophthalmic solution 1 Drop daily at bedtime. - docusate sodium (COLACE) 100 mg capsule Take 100 mg by mouth twice daily. Problem List As Of Date 03/09/2024 Noted Resolved Nausea alone [R11.0] 07/30/2014 07/30/2014 Abdominal pain, epigastric [R10.13] 07/30/2014 07/30/2014 Rheumatoid arthritis (HCC) [M06.9] 05/11/2019 Fibromyalgia [M79.7] 05/11/2019 DDD (degenerative disc disease), lumbar [M51.36]05/11/2019 Glaucoma suspect of both eyes [H40.003] 05/11/2019 Irritable bowel syndrome with constipation [K58*05/11/2019 Chronic insomnia [F51.04] 05/11/2019 HLD (hyperlipidemia) [E78.5] 05/11/2019 Hyperglycemia [R73.9] 05/11/2019 03/12/2021 Panic disorder [F41.0] 05/11/2019 Migraine without aura, intractable, without sta*05/11/2019 Chronic back pain [M54.9, G89.29] 09/17/2021 Type 2 diabetes mellitus without complication, *03/12/2021 Elevated BP without diagnosis of hypertension [*11/17/2021 01/14/2022 HTN (hypertension) [I10] 01/14/2022 Obesity, Class III, BMI 40-49.9 (morbid obesity*10/25/2022 05/12/2023 Stage 3 chronic kidney disease (HCC) [N18.30] 10/25/2022 Encounter Status:Closed by MAKENNA CROWDER on 03/09/24 Normal [facility] Bacteria Ur Culton Bacteria identified Cx Nom (U) ORGANISM ID: 1 <10,000 CFU/ml Normal urogenital juan Normal [facility] Comment on above: Performed By: #### 6 30-4 ####[facility] [id number] [address] [facility] ([facility] -- ZACKERY NUNEZ ([id number]) 1960 F Date Time Provider Department 03/06/24 MIKAYLA STRANGE [facility] During your visit today, we recorded the following information about you: Mikayla Strange MD 03/06/2024 5:15 AM Signed Urine shows blood. No white cells. Any current urinary symptoms still? Adeline Hensley RN 03/06/2024 9:23 AM Signed Pt called and is notified of providers results and question. Pt voices understanding. She states it is still uncomfortable and she has pressure when she urinate. She states she feels bad like last time when she had a really bad UTI. Pt reports to feeling really fatigued. Denies fever. Please advise. JOURDAN Kohli William J, MD 03/06/2024 9:26 AM Signed Will need culture done. If negative, will need to see urology. Evelyn Castaneda MA 03/06/2024 9:44 AM Signed Patient informed and verbalized understanding. Evelyn Castaneda MA Allergies As of Date: 03/06/2024 Noted Allergy Reaction VAIBHAV (FEXOFENADINE HCL) 07/14/2014 5 - Intolerance AUGMENTIN (AMOXICILLIN-POT CLAVUL*07/14/2014 5 - Intolerance BENTYL (DICYCLOMINE HCL) 06/24/2015 8 - GI Upset BIAXIN (CLARITHROMYCIN) 07/14/2014 5 - Intolerance CECLOR (CEFACLOR) 07/14/2014 5 - Intolerance CELEBREX (CELECOXIB) 07/14/2014 5 - Intolerance COLESTIPOL 11/24/2014 14 - Other: See Comments Comments: shaky/headaches/increased nausea COMPAZINE (PROCHLORPERAZINE EDISY*07/14/2014 5 - Intolerance DOXEPIN 07/14/2014 5 - Intolerance FENTANYL 07/14/2014 5 - Intolerance HUMIRA (ADALIMUMAB) 07/14/2014 5 - Intolerance LEVAQUIN (LEVOFLOXACIN) 07/14/2014 5 - Intolerance METFORMIN 11/21/2023 8 - GI Upset Comments: Gi intolerance PLAQUENIL (HYDROXYCHLOROQUINE SUL*07/14/2014 5 - Intolerance SELDANE 07/14/2014 5 - Intolerance SEPTRA (SULFAMETHOXAZOLE-TRIMETHO *07/14/2014 5 - Intolerance SULFA (SULFONAMIDE ANTIBIOTICS) 07/14/2014 5 - Intolerance VIBRAMYCIN (DOXYCYCLINE CALCIUM) 07/14/2014 5 - Intolerance VICODIN (HYDROCODONE-ACETAMINOPHE* 07/14/2014 5 - Intolerance Date Reviewed: 02/20/2024 Reviewed by: Evelyn Castaneda MA - Fully Assessed Reason for Visit: Results [95] Primary Visit Diagnosis:Acute cystitis with hematuria [N30.01] Order(s):URINE CULTURE [SQURCUL] Order #: [id number] FUTURE Prescriptions as of 03/06/2024 - atorvastatin (LIPITOR) 10 mg tablet Take 1 tablet by mouth once daily. - busPIRone HCl 30 mg tablet Take 1 tablet by mouth two times a day. - omeprazole (PRILOSEC) 40 mg capsule Take 40 mg by mouth once daily. - hyoscyamine sublingual (LEVSIN/SL) 0.125 mg Dissolve 1 tablet under the tongue every 4 hours as needed. - citalopram (CELEXA) 40 mg tablet Take 1 tablet by mouth once daily. - promethazine (PHENERGAN) 25 mg tablet Take 1 tablet by mouth every 6 hours as needed. - promethazine (PHENERGAN) 25 mg suppository 1 Suppository by RECTAL route every 6 hours as needed. - SUMAtriptan (IMITREX) 50 mg tablet Take 1 tablet (50 mg) by mouth as needed. - lisinopril (ZESTRIL) 10 mg tablet Take 1 tablet by mouth once daily. - buprenorphine 20 mcg/hour ptwk APPLY 1 PATCH TOPICALLY ONCE A WEEK FOR 4 WEEKS - oxyCODONE-acetaminophen (PERCOCET) 5-325 mg tablet 1 tablet three times daily as needed. - upadacitinib (RINVOQ ORAL) Take 15 mg by mouth. - amitriptyline (ELAVIL) 10 mg tablet Take 1 tablet by mouth daily at bedtime. - gabapentin (NEURONTIN) 300 mg capsule Take 300 mg by mouth. 900 mg (3 tabs) a.m, 600 mg (2 tabs) p.m - predniSONE (DELTASONE) 10 mg tablet Take 1 tablet by mouth as needed for Pain. - Cetirizine 10 mg cap Take by mouth. - CALCIUM POLYCARBOPHIL (FIBER LAXATIVE ORAL) Take by mouth. - multivitamin tablet Take 1 tablet by mouth once daily. - latanoprost (XALATAN) 0.005 % ophthalmic solution 1 Drop daily at bedtime. - docusate sodium (COLACE) 100 mg capsule Take 100 mg by mouth twice daily. Problem List As Of Date 03/06/2024 Noted Resolved Nausea alone [R11.0] 07/30/2014 07/30/2014 Abdominal pain, epigastric [R10.13] 07/30/2014 07/30/2014 Rheumatoid arthritis (HCC) [M06.9] 05/11/2019 Fibromyalgia [M79.7] 05/11/2019 DDD (degenerative disc disease), lumbar [M51.36]05/11/2019 Glaucoma suspect of both eyes [H40.003] 05/11/2019 Irritable bowel syndrome with constipation [K58*05/11/2019 Chronic insomnia [F51.04] 05/11/2019 HLD (hyperlipidemia) [E78.5] 05/11/2019 Hyperglycemia [R73.9] 05/11/2019 03/12/2021 Panic disorder [F41.0] 05/11/2019 Migraine without aura, intractable, without sta*05/11/2019 Chronic back pain [M54.9, G89.29] 09/17/2021 Type 2 diabetes mellitus without complication, *03/12/2021 Elevated BP without diagnosis of hypertension [*11/17/2021 01/14/2022 HTN (hypertension) [I10] 01/14/2022 Obesity, Class III, BMI 40-49.9 (morbid obesity*10/25/2022 05/12/2023 Stage 3 chronic kidney disease (HCC) [N18.30] 10/26/19 (more content not included)... Normal [facility] Urinalysis complete panel (U )on 03-05-2024 Bacteria LM.HPF (Urine sed) [#/Area] Negative Normal Negative [facility] Comment on above: Order Comment: Speci men Type: URINE SPECIMEN Ordering Facility: [facility] Address: [address] [place] [address] Performed By: #### 2 4356-8 #### [facility] CLIA [id number] [address] [place] [address] [place] Bilirubin Ql (U) Negative Normal Negative [facility] Comment on above: Order Comment: Speci men Type: URINE SPECIMEN Ordering Facility: [facility] Address: [address] [place] [address] Performed By: #### 2 4356-8 #### [facility] CLIA [id number] [address] [place] [address] [place] CALCIUM OXALATE CRYSTALS (UA) Few Abnormal None Seen [facility] Comment on above: Order Comment: Speci men Type: URINE SPECIMEN Ordering Facility: [facility] Address: [address] [place] [address] Performed By: #### 2 4356-8 #### [facility] CLIA [id number] [address] [place] [address] [place] Clarity (Unsp spec) Clear Normal [facility] Comment on above: Order Comment: Speci men Type: URINE SPECIMEN Ordering Facility: [facility] Address: [address] [place] [address] Performed By: #### 2 4356-8 #### [facility] CLIA [id number] [address] [place] [address] [place] Color (U) Dark Yellow Abnormal Yellow [facility] Comment on above: Order Comment: Speci men Type: URINE SPECIMEN Ordering Facility: [facility] Address: [address] [place] [address] Performed By: #### 2 4356-8 #### [facility] CLIA [id number] [address] [place] [address] [place] Epithelial cells LM.HPF (Urine sed) [#/Area] None Seen Normal [facility] Comment on above: Order Comment: Speci men Type: URINE SPECIMEN Ordering Facility: [facility] Address: [address] [place] [address] Performed By: #### 2 4356-8 #### [facility] CLIA [id number] [address] [place] [address] [place] Glucose Test strip (U) [Mass/Vol] Negative Normal Negative [facility] Comment on above: Order Comment: Speci men Type: URINE SPECIMEN Ordering Facility: [facility] Address: [address] [place] [address] Performed By: #### 2 4356-8 #### [facility] CLIA [id number] [address] [place] [address] [place] Hemoglobin Ql (U) Negative Normal Negative [facility] Comment on above: Order Comment: Speci men Type: URINE SPECIMEN Ordering Facility: [facility] Address: [address] [place] [address] Performed By: #### 2 4356-8 #### [facility] CLIA [id number] [address] [place] [address] [place] Hyaline casts (Urine sed) [#/Area] /[LPF] Abnormal 0 /LPF [facility] Comment on above: Order Comment: Speci men Type: URINE SPECIMEN Ordering Facility: [facility] Address: [address] [place] [address] Performed By: #### 2 4356-8 #### [facility] CLIA [id number] [address] [place] [address] [place] Ketones Ql (U) Negative Normal Negative [facility] Comment on above: Order Comment: Speci men Type: URINE SPECIMEN Ordering Facility: [facility] Address: [address] [place] [address] Performed By: #### 2 4356-8 #### [facility] CLIA [id number] [address] [place] [address] [place] Leukocyte esterase Test strip Ql (U) Negative Normal Negative [facility] Comment on above: Order Comment: Speci men Type: URINE SPECIMEN Ordering Facility: [facility] Address: [address] [place] [address] Performed By: #### 2 4356-8 #### [facility] CLIA [id number] [address] [place] [address] [place] Nitrite Ql (U) Negative Normal Negative [facility] Comment on above: Order Comment: Speci men Type: URINE SPECIMEN Ordering Facility: [facility] Address: [address] [place] [address] Performed By: #### 2 4356-8 #### [facility] CLIA [id number] [address] [place] [address] [place] pH (U) 5.5 [pH] Normal <8.5 [facility] Comment on above: Order Comment: Speci men Type: URINE SPECIMEN Ordering Facility: [facility] Address: [address] [place] [address] Performed By: #### 2 4356-8 #### [facility] CLIA [id number] [address] [place] [address] [place] Protein (U) [Mass/Vol] Negative Normal Negative [facility] Comment on above: Order Comment: Speci men Type: URINE SPECIMEN Ordering Facility: [facility] Address: [address] [place] [address] Performed By: #### 2 4356-8 #### [facility] CLIA [id number] [address] [place] [address] [place] RBC LM.HPF (Urine sed) [#/Area] 3-5 /HPF Abnormal 0-2 /HPF [facility] Comment on above: Order Comment: Speci men Type: URINE SPECIMEN Ordering Facility: [facility] Address: [address] [place] [address] Performed By: #### 2 4356-8 #### [facility] CLIA [id number] [address] [place] [address] [place] Specific gravity (U) [Rel density] 1.025 Normal 1.005-1.03 0 [facility] Comment on above: Order Comment: Speci men Type: URINE SPECIMEN Ordering Facility: [facility] Address: [address] [place] [address] Performed By: #### 2 4356-8 #### [facility] CLIA [id number] [address] [place] [address] [place] Urobilinogen Ql (U) 0.2 EU/dL Normal 0.2-1.0 EU/dL [facility] Comment on above: Order Comment: Speci men Type: URINE SPECIMEN Ordering Facility: [facility] Address: [address] [place] [address] Performed By: #### 2 4356-8 #### [facility] CLIA [id number] [address] [place] [address] [place] WBC LM.HPF (Urine sed) [#/Area] 0-5 /HPF Normal 0-5 /HPF [facility] Comment on above: Order Comment: Speci men Type: URINE SPECIMEN Ordering Facility: [facility] Address: [address] [place] [address] Performed By: #### 2 4356-8 #### [facility] CLIA [id number] [address] [place] [address] [place] Bacteria Ur Culton 4 Bacteria identified Cx Nom (U) ORGANISM ID: 1 >=100,000 CFU/ml Escherichia coli ORGANISM ID: 1 (ESCHERICHIA COLI) ANTIBIOTIC INTERPRETATION MANUEL STATUS REFERENCE RANGE Ampicillin R >=32 F Susceptible <=8 , Intermediate >8 , Resistant >16 Cefazolin S <=4 F Susceptible 0-16 , Intermediate <0 or >16 , Resistant >16 For uncomplicated urinary tract infections, cefazolin results can be used to predict susceptibility or resistance to cephalexin. Ceftriaxone S <=1 F Susceptible <=1 , Intermediate >1 , Resistant >=4 Cefepime S <=1 F Susceptible <=2 , Susceptible-Dose Dependent >2 , Resistant >=16 Ertapenem S <=0.5 F Susceptible <=0.5 , Intermediate >.5 , Resistant >1 Meropenem S <=0.25 F Susceptible <=1 , Intermediate >1 , Resistant >2 Ampicillin/Sulbact I 16 F Susceptible <=8 , Intermediate >8 , Resistant >16 Piperacillin/Tazobac S <=4 F Susceptible <16 , Susceptible-Dose Dependent >=16 , Resistant >=32 Gentamicin S <=1 F Susceptible <=2 , Intermediate >2 , Resistant >=8 Tobramycin S <=1 F Susceptible <4 , Intermediate >=4 , Resistant >=8 Trimeth sulfameth S <=20 F Susceptible <=40 , Resistant >40 Ciprofloxacin S <=0.25 F Susceptible <0.5 , Intermediate >=.5 , Resistant >=1 Nitrofurantoin S <=16 F Susceptible <=32 , Intermediate >32 , Resistant >64 Abnormal [facility] Comment on above: Performed By: #### 6 30-4 ####[facility] [id number] [place] [id number] [facility] CNOVon 02-20-2024 CNOV Office Visit (FAMPWS ) -- ZACKERY NUNEZ ([id number]) 1960 F Date Time Provider Department 02/20/24 4:00 PM MIKAYLA STRANGE FAMPWS During your visit today, we recorded the following information about you: Pulse Blood pressure Weight Height 66/minute 124/60 92.5 kg 1.651 m Mikayla Strange MD 02/20/2024 4:22 PM Signed No chief complaint on file. HPI: Patient presents today for office visit for multiple concerns. Urology: patient is concerned about urinary symptoms. Duration of symptoms: 5-6 days Dysuria: Yes. Refers to burning with urination. Urinary urgency: Yes. Urinary frequency: Yes. And very little comes out. Suprapubic pain: Yes. Cramping and pinching Back pain: No. Fever: No. Nausea: Yes. Vomiting: No. On Monday started not feeling well, got so sick and was sweating profusely. Refers to sweating so much her hair was soaked like she had just showered. Was worried about her BP so on Monday states her BP was 125/67 P. 67 Monday BP was 111/62 P. 63 Concerned about her Lisinopril. Symptoms started before hand. She is worried about medications. Requests cipro. Can take it even though levaquin is listed as an intolerance. Also is on celexa. Has taken the two together. She is still trying to lose weight. Discussed miracle fruit for her chronic taste issues. No chest pain or shortness of breath. No palpations or headaches. MEDICATIONS: Current Outpatient Medications Medication Sig atorvastatin (LIPITOR) 10 mg tablet Take 1 tablet by mouth once daily. busPIRone HCl 30 mg tablet Take 1 tablet by mouth two times a day. omeprazole (PRILOSEC) 40 mg capsule Take 40 mg by mouth once daily. hyoscyamine sublingual (LEVSIN/SL) 0.125 mg Dissolve 1 tablet under the tongue every 4 hours as needed. citalopram (CELEXA) 40 mg tablet Take 1 tablet by mouth once daily. promethazine (PHENERGAN) 25 mg tablet Take 1 tablet by mouth every 6 hours as needed. promethazine (PHENERGAN) 25 mg suppository 1 Suppository by RECTAL route every 6 hours as needed. SUMAtriptan (IMITREX) 50 mg tablet Take 1 tablet (50 mg) by mouth as needed. lisinopril (ZESTRIL) 10 mg tablet [...] bedtime. gabapentin (NEURONTIN) 300 mg capsule Take 300 mg by mouth. 900 mg (3 tabs) a.m, 600 mg (2 tabs) p.m predniSONE (DELTASONE) 10 mg tablet Take 1 [...] for this visit. ALLERGIES: ALLERGIES Allergen Reactions Vaibhav [Fexofenadi* Intolerance Augmentin [Amoxicil* Intolerance Bentyl [Dicyclomine* GI Upset Biaxin [Clarithromy* Intolerance Ceclor [Cefaclor] Intolerance Celebrex [Celecoxib] Intolerance Colestipol Other: See Comments shaky/headaches/increased nausea Compazine [Prochlor* Intolerance Doxepin Intolerance Fentanyl Intolerance Humira [Adalimumab] Intolerance Levaquin [Levofloxa* Intolerance Metformin GI Upset Gi intolerance Plaquenil [Hydroxyc* Intolerance Seldane Intolerance Septra [Sulfamethox* Intolerance Sulfa (Sulfonamide * Intolerance Vibramycin [Doxycyc* Intolerance Vicodin [Hydrocodon* Intolerance PAST MEDICAL HISTORY No date: Anxiety disorder No date: Arthritis No date: Chronic back pain Comment: Dr. Burks-pain management No date: Depressive disorder, not elsewhere classified No date: Diabetes (HCC) No date: Essential hypertension, benign No date: Fibromyalgia No date: Glaucoma No date: IBS (irritable bowel syndrome) No date: Migraine, unspecified, without mention of intractable migraine without mention of status migrainosus No date: PONV (postoperative nausea and vomiting) No date: Pure hypercholesterolemia No date: Rheumatoid arthritis (HCC) No date: Snoring PAST SURGICAL HISTORY 12/18/2014: APPENDECTOMY Comment: Dr. Blakely No date: APPENDECTOMY HX 04/22/2014: ARTHRP KNE CONDYLEANDPLATU MEDIALANDLAT COMPARTMENTS Comment: right 05/27/2022: COLONOSCOPY Comment: repeat in 10 years 10/01/2012: COLONOSCOPY FLX DX W/COLLJ SPEC WHEN PFRMD Comment: suboptimal - poor prep : EGD 07/30/2014: ESOPHAGOGASTRODUODENOSCOPY TRANSORAL DIAGNOSTIC Comment: EGD No date: JOINT REPLACEMENT HX 12/31/1993: LAPAROSCOPY SURG CHOLECYSTECTOMY 1994: PAST SURGICAL HISTORY OF Comm (more content not included)... Normal [facility] UA DIP, URINE (POC)on 2023 BILIRUBIN UA (POCT) Negative Negative [facility] CLARITY UA (POCT) Cloudy [facility] COLOR UA (POCT) Yellow [facility] GLUCOSE UA (POCT) Negative Negative mg/dL [facility] Hemoglobin Ql (U) Trace-intact Abnormal Negative [facility] Interpretation and review of laboratory results Abnormal [facility] KETONE UA (POCT) Negative Negative mg/dL [facility] LEUKOCYTES UA (POCT) Large Abnormal Negative [facility] NITRITE UA (POCT) Positive Abnormal Negative [facility] PH UA (POCT) 5.5 4.5 - 8.0 [facility] Protein Ql (U) Trace Abnormal Negative mg/dL [facility] SPECIFIC GRAVITY UA (POCT) 1.020 1.005 - 1.030 [facility] UROBILINOGEN UA (POCT) 0.2 Normal E.U./dL [facility] Location:[address], [place], [address] [facility] POINT OF CARE [facility] CBC W/Diff, Automatedon 08-0 Absolute Lymph 3.20 X10 3/uL Normal 0.83-4.51 [facility] Comment on above: Performed By: #### M 100.636, M200.1000 #### [facility] [address] [place], [address] Absolute Neut 3.1 X10 3/uL Normal 2.0-7.7 [facility] Comment on above: Performed By: #### M 100.636, M200.1000 #### [facility] [address] [place], [address] Basophils/100 WBC (Bld) 0.6 % Normal 0-1 [facility] Comment on above: Performed By: #### M 100.636, M200.1000 #### [facility] [address] [place], [address] Eosinophils/100 WBC (Bld) 1.0 % Normal 0-5 [facility] Comment on above: Performed By: #### M 100.636, M200.1000 #### [facility] [address] [place], [address] Erythrocyte distribution width (RBC) [Ratio] 12.8 % Normal 11.6-14.6 [facility] Comment on above: Performed By: #### M 100.636, M200.1000 #### [facility] [address] [place], [address] Hematocrit (Bld) [Volume fraction] 34.9 % Low 37-47 [facility] Comment on above: Performed By: #### M 100.636, M200.1000 #### [facility] [address] [place], [address] Hemoglobin (Bld) [Mass/Vol] 10.8 g/dL Low 12.0-15.0 [facility] Comment on above: Performed By: #### M 100.636, M200.1000 #### [facility] [address] [place], [address] IG% 0.300 Normal 0.0-0.9 [facility] Comment on above: Result Comment: IG% - Immature Granulocytes (promyelocytes, myelocytes and metamyelocytes) > 1% indicates that a LEFT SHIFT is Present. Performed By: #### M 100.636, M200.1000 #### [facility] [address] [place], [address] Lymphocytes/100 WBC (Bld) 46.5 % High 19-41 [facility] Comment on above: Performed By: #### M 100.636, M200.1000 #### [facility] [address] [place], [address] MCH (RBC) [Entitic mass] 28.1 pg Normal 27.0-32.0 [facility] Comment on above: Performed By: #### M 100.636, M200.1000 #### [facility] [address] [place], [address] MCHC (RBC) [Mass/Vol] 30.9 g/dL Low 32-36 [facility] Comment on above: Performed By: #### M 100.636, M200.1000 #### [facility] [address] [place], [address] MCV (RBC) [Entitic vol] 90.9 fL Normal 81-99 [facility] Comment on above: Performed By: #### M 100.636, M200.1000 #### [facility] [address] [place], [address] Monocytes/100 WBC (Bld) 6.3 % Normal 0-10 [facility] Comment on above: Performed By: #### M 100.636, M200.1000 #### [facility] [address] [place], [address] Neutrophils/100 WBC (Bld) 45.3 % Low 47-70 [facility] Comment on above: Performed By: #### M 100.636, M200.1000 #### [facility] [address] [place], [address] Nucleated RBC (Bld) [#/Vol] 0 10*3/uL Normal 0-5 [facility] Comment on above: Performed By: #### M 100.636, M200.1000 #### [facility] [address] [place], [address] Platelet mean volume (Bld) [Entitic vol] 11.3 fL Normal 6.2-12.0 [facility] Comment on above: Performed By: #### M 100.636, M200.1000 #### [facility] [address] [place], [address] Platelets (Bld) [#/Vol] 260 10*3/uL Normal 150-450 [facility] Comment on above: Performed By: #### M 100.636, M200.1000 #### [facility] [address] [place], [address] RBC (Bld) [#/Vol] 3.84 10*6/uL Low 4.2-5.4 [facility] Comment on above: Performed By: #### M 100.636, M200.1000 #### [facility] [address] [place], [address] RDW SD 42.2 fl Normal 35.1-43.9 [facility] Comment on above: Performed By: #### M 100.636, M200.1000 #### [facility] [address] [place], [address] WBC (Bld) [#/Vol] 6.9 10*3/uL Normal 4.4-11.0 [facility] Comment on above: Performed By: #### M 100.636, M200.1000 #### [facility] [address] [place], [address] Comprehensive Metabolic [facility] 01-25-2024 Albumin [Mass/Vol] 3.3 g/dL Normal 3.2-5.0 [facility] Comment on above: Performed By: #### M 100.636, M200.1000 #### [facility] [address] [place], [address] Albumin/Globulin [Mass ratio] 1.0 {ratio} Normal 0.9-2.4 [facility] Comment on above: Performed By: #### M 100.636, M200.1000 #### [facility] [address] [place], [address] ALK P 75 U/L Normal 45-117 [facility] Comment on above: Performed By: #### M 100.636, M200.1000 #### [facility] [address] [place], [address] ALT [Catalytic activity/Vol] 13 U/L Normal 13-56 [facility] Comment on above: Performed By: #### M 100.636, M200.1000 #### [facility] [address] [place], [address] AST [Catalytic activity/Vol] 18 U/L Normal 15-37 [facility] Comment on above: Performed By: #### M 100.636, M200.1000 #### [facility] [address] [place], [address] Bilirubin [Mass/Vol] 0.30 mg/dL Normal 0.20-1.00 [facility] Comment on above: Result Comment: For patients on eltrombopag therapy, use of Dimension [place] TBIL is not recommended. Performed By: #### M 100.636, M200.1000 #### [facility] [address] [place], [address] BUN/CRE 14.6 RATIO Normal 10-20 [facility] Comment on above: Performed By: #### M 100.636, M200.1000 #### [facility] [address] [place], [address] CA,Total 8.7 mg/dL Normal 8.5-10.1 [facility] Comment on above: Performed By: #### M 100.636, M200.1000 #### [facility] [address] [place], [address] Chloride [Moles/Vol] 106 mmol/L Normal 98-107 [facility] Comment on above: Performed By: #### M 100.636, M200.1000 #### [facility] [address] [place], [address] CO2 [Moles/Vol] 27.0 mmol/L Normal 21.0-32.0 [facility] Comment on above: Performed By: #### M 100.636, M200.1000 #### [facility] [address] [place], [address] Creatinine [Mass/Vol] 1.03 mg/dL High 0.55-1.02 [facility] Comment on above: Result Comment: The validity of the calculated GFR GFRAA in patients over 70 years has not been determined. Clinical correlation is essential. Performed By: #### M 100.636, M200.1000 #### [facility] [address] [place], [address] EST GFR - AA 69 mL/min Normal >60 [facility] Comment on above: Result Comment: Afri can Fijian GFR Calc Performed By: #### M 100.636, M200.1000 #### [facility] [address] [place], [address] GAP 4 Low 5-15 [facility] Comment on above: Performed By: #### M 100.636, M200.1000 #### [facility] [address] [place], [address] GFR/1.73 sq M.predicted among non-blacks MDRD (S/P/Bld) [Vol rate/Area] 57 mL/min/{1.73_m2} Low >60 [facility] Comment on above: Result Comment: Non- GFR Calc Performed By: #### M 100.636, M200.1000 #### [facility] [address] [place], [address] Globulin (S) [Mass/Vol] 3.3 g/dL Normal 2.2-4.2 [facility] Comment on above: Performed By: #### M 100.636, M200.1000 #### [facility] [address] [place], [address] Glucose [Mass/Vol] 90 mg/dL Normal 74-106 [facility] Comment on above: Performed By: #### M 100.636, M200.1000 #### [facility] [address] [place], [address] Potassium [Moles/Vol] 4.3 mmol/L Normal 3.5-5.1 [facility] Comment on above: Performed By: #### M 100.636, M200.1000 #### [facility] [address] [place], [address] Sodium [Moles/Vol] 137 mmol/L Normal 136-145 [facility] Comment on above: Performed By: #### M 100.636, M200.1000 #### [facility] [address] [place], [address] T PROT 6.6 g/dL Normal 6.4-8.2 [facility] Comment on above: Performed By: #### M 100.636, M200.1000 #### [facility] [address] [place], [address] Urea nitrogen [Mass/Vol] 15 mg/dL Normal 7-18 [facility] Comment on above: Performed By: #### M 100.636, M200.1000 #### [facility] [address] [place], [address] Hemoccult Stl Ql IAon 2023 Lower GI hemoglobin IA Ql (Stl) Negative Normal Negative [facility] Comment on above: Order Comment: Speci men Type: STOOL SPECIMENOrdering Facility: [facility] Address: [address] [place] [address] Performed By: #### 2 9771-3 ####[facility] LABCLIA [id number] [facility] [facility]IT[facility] [id number] [address] [place] CBC W Auto Differential pane l (Bld)on 01-15-2024 Basophils (Bld) [#/Vol] 0.03 10*3/uL Normal <0.11 [facility] Comment on above: Order Comment: Speci men Type: BLOOD SPECIMENOrdering Facility: [facility] Address: [address] [place] [address] Performed By: #### 5 7021-8 ####[facility] LABCLIA [id number] [place] [address] [place] Basophils/100 WBC (Bld) 0.4 % Normal [facility] Comment on above: Order Comment: Speci men Type: BLOOD SPECIMENOrdering Facility: [facility] Address: [address] [place] [address] Performed By: #### 5 7021-8 ####[facility] LABCLIA [id number] [place] [address] [place] Differential cell count method Nom (Bld) Auto Normal [facility] Comment on above: Order Comment: Speci men Type: BLOOD SPECIMENOrdering Facility: [facility] Address: [address] [place] [address] Performed By: #### 5 7021-8 ####[facility]CL[facility] [id number] [place] [address] [place] Eosinophils (Bld) [#/Vol] 0.09 10*3/uL Normal <0.46 [facility] Comment on above: Order Comment: Speci men Type: BLOOD SPECIMENOrdering Facility: [facility] Address: [address] [place] [address] Performed By: #### 5 7021-8 ####[facility]CLIA [id number] [place] [address] [place] Eosinophils/100 WBC (Bld) 1.1 % Normal [facility] Comment on above: Order Comment: Speci men Type: BLOOD SPECIMENOrdering Facility: [facility] Address: [address] [place] [address] Performed By: #### 5 7021-8 ####[facility]CL[facility] [id number] [place] [address] [place] Erythrocyte distribution width (RBC) [Ratio] 12.8 % Normal 11.5-15.0 [facility] Comment on above: Order Comment: Speci men Type: BLOOD SPECIMENOrdering Facility: [facility] Address: [address] [place] [address] Performed By: #### 5 7021-8 ####[facility]CLIA [id number] [place] [address] [place] Hematocrit (Bld) [Volume fraction] 37.0 % Normal 36.0-46.0 [facility] Comment on above: Order Comment: Speci men Type: BLOOD SPECIMENOrdering Facility: [facility] Address: [address] [place] [address] Performed By: #### 5 7021-8 ####[facility] LABIA [id number] [place] [address] [place] Hemoglobin (Bld) [Mass/Vol] 11.7 g/dL Normal 11.5-15.5 [facility] Comment on above: Order Comment: Speci men Type: BLOOD SPECIMENOrdering Facility: [facility] Address: [address] [place] [address] Performed By: #### 5 7021-8 ####[facility] LABIA [id number] [place] [address] [place] Immature granulocytes (Bld) [#/Vol] 0.04 10*3/uL Normal <0.10 [facility] Comment on above: Order Comment: Speci men Type: BLOOD SPECIMENOrdering Facility: [facility] Address: [address] [place] [address] Performed By: #### 5 7021-8 ####[facility] LABIA [id number] [place] [address] [place] Immature granulocytes/100 WBC (Bld) 0.5 % Normal [facility] Comment on above: Order Comment: Speci men Type: BLOOD SPECIMENOrdering Facility: [facility] Address: [address] [place] [address] Performed By: #### 5 7021-8 ####[facility]CLIA [id number] [place] [address] [place] Lymphocytes (Bld) [#/Vol] 1.45 10*3/uL Normal 1.00-4.00 [facility] Comment on above: Order Comment: Speci men Type: BLOOD SPECIMENOrdering Facility: [facility] Address: [address] [place] [address] Performed By: #### 5 7021-8 ####[facility]CLIA [id number] [place] [address] [place] Lymphocytes/100 WBC (Bld) 17.8 % Normal [facility] Comment on above: Order Comment: Speci men Type: BLOOD SPECIMENOrdering Facility: [facility] Address: [address] [place] [address] Performed By: #### 5 7021-8 ####[facility]CLIA [id number] [place] [address] [place] MCH (RBC) [Entitic mass] 29.3 pg Normal 26.0-34.0 [facility] Comment on above: Order Comment: Speci men Type: BLOOD SPECIMENOrdering Facility: [facility] Address: [address] [place] [address] Performed By: #### 5 7021-8 ####[facility] LABCLIA [id number] [place] [address] [place] MCHC (RBC) [Mass/Vol] 31.6 g/dL Normal 30.5-36.0 [facility] Comment on above: Order Comment: Speci men Type: BLOOD SPECIMENOrdering Facility: [facility] Address: [address] [place] [address] Performed By: #### 5 7021-8 ####[facility]CLIA [id number] [place] [address] [place] MCV (RBC) [Entitic vol] 92.5 fL Normal 80.0-100.0 [facility] Comment on above: Order Comment: Speci men Type: BLOOD SPECIMENOrdering Facility: [facility] Address: [address] [place] [address] Performed By: #### 5 7021-8 ####[facility]CLIA [id number] [place] [address] [place] Monocytes (Bld) [#/Vol] 0.60 10*3/uL Normal <0.87 [facility] Comment on above: Order Comment: Speci men Type: BLOOD SPECIMENOrdering Facility: [facility] Address: [address] [place] [address] Performed By: #### 5 7021-8 ####[facility] LABIA [id number] [place] [address] [place] Monocytes/100 WBC (Bld) 7.4 % Normal [facility] Comment on above: Order Comment: Speci men Type: BLOOD SPECIMENOrdering Facility: [facility] Address: [address] [place] [address] Performed By: #### 5 7021-8 ####[facility]CLIA [id number] [place] [address] [place] Neutrophils (Bld) [#/Vol] 5.92 10*3/uL Normal 1.45-7.50 [facility] Comment on above: Order Comment: Speci men Type: BLOOD SPECIMENOrdering Facility: [facility] Address: [address] [place] [address] Performed By: #### 5 7021-8 ####[facility] LABIA [id number] [place] [address] [place] Neutrophils/100 WBC (Bld) 72.8 % Normal [facility] Comment on above: Order Comment: Speci men Type: BLOOD SPECIMENOrdering Facility: [facility] Address: [address] [place] [address] Performed By: #### 5 7021-8 ####[facility]CLIA [id number] [place] [address] [place] Nucleated RBC (Bld) [#/Vol] 10*3/uL Normal <0.01 [facility] Comment on above: Order Comment: Speci men Type: BLOOD SPECIMENOrdering Facility: [facility] Address: [address] [place] [address] Performed By: #### 5 7021-8 ####[facility]CLIA [id number] [place] [address] [place] Nucleated RBC/100 WBC (Bld) [Ratio] 0.0 /100 WBC Normal [facility] Comment on above: Order Comment: Speci men Type: BLOOD SPECIMENOrdering Facility: [facility] Address: [address] [place] [address] Performed By: #### 5 7021-8 ####[facility]CLIA [id number] [place] [address] [place] Platelet mean volume (Bld) [Entitic vol] 11.3 fL Normal 9.0-12.7 [facility] Comment on above: Order Comment: Speci men Type: BLOOD SPECIMENOrdering Facility: [facility] Address: [address] [place] [address] Performed By: #### 5 7021-8 ####[facility] LABIA [id number] [place] [address] [place] Platelets (Bld) [#/Vol] 247 10*3/uL Normal 150-400 [facility] Comment on above: Order Comment: Speci men Type: BLOOD SPECIMENOrdering Facility: [facility] Address: [address] [place], [place] [address] Performed By: #### 5 7021-8 ####[facility]CLIA [id number] [place] [address] [place] RBC (Bld) [#/Vol] 4.00 10*6/uL Normal 3.90-5.20 [facility] Comment on above: Order Comment: Speci men Type: BLOOD SPECIMENOrdering Facility: [facility] Address: [address] [place] [address] Performed By: #### 5 7021-8 ####[facility] LABCLIA [id number] [place] [address] [place] WBC (Bld) [#/Vol] 8.13 10*3/uL Normal 3.70-11.00 [facility] Comment on above: Order Comment: Speci men Type: BLOOD SPECIMENOrdering Facility: [facility] Address: [address] [place] [address] Performed By: #### 5 7021-8 ####[facility] LABCLIA [id number] [place] [address] [place] Ferritin SerPl-mCncon 2023 Ferritin [Mass/Vol] 74.5 ng/mL Normal 14.7-205.1 [facility] Comment on above: Order Comment: Speci men Type: BLOOD SPECIMEN Ordering Facility: [facility] Address: [address] [place] [address] Performed By: #### 1 4338-8, 07206-0 #### [facility] CLIA [id number] [address] [place] [address] [place] Folate SerPl-mCncon 01-15-20 Folate [Mass/Vol] 10.2 ng/mL Normal >4.7 [facility] Comment on above: Order Comment: Speci men Type: BLOOD SPECIMEN Ordering Facility: [facility] Address: [address] [place] [address] Performed By: #### 1 4338-8, 80447-4 #### [facility] CLIA [id number] [address] [place] [address] [place] [employer] and Iron binding capaci ty panelon 01-15-2024 Iron [Mass/Vol] 66 ug/dL Normal 41-186 [facility] Comment on above: Order Comment: Speci men Type: BLOOD SPECIMEN Ordering Facility: [facility] Address: [address] [place] [address] Performed By: #### 1 4338-8, 07931-9 #### [facility] CLIA [id number] [address] [place] [address] [place] Iron binding capacity [Mass/Vol] 251 ug/dL Normal 232-386 [facility] Comment on above: Order Comment: Speci men Type: BLOOD SPECIMEN Ordering Facility: [facility] Address: [address] [place] [address] Performed By: #### 1 4338-8, 85920-0 #### [facility] CLIA [id number] [address] [place] [address] [place] Iron/TIBC [Molar ratio] 26.3 % Normal 15.0-57.0 [facility] Comment on above: Order Comment: Speci men Type: BLOOD SPECIMEN Ordering Facility: [facility] Address: [address] [place] [address] Performed By: #### 1 4338-8, 41180-8 #### [facility] CLIA [id number] [address] [place] [address] [place] [facility] Cobalamin (Vitamin B12) [Mass/Vol] 338 pg/mL Normal 232-1245 [facility] Comment on above: Order Comment: Speci men Type: BLOOD SPECIMEN Ordering Facility: [facility] Address: [address] [place] [address] Performed By: #### 1 4338-8, 27021-6 #### [facility] CLIA [id number] [address] [place], [place] [address] [address] [place] Vijay 01-08-2024 [facility] Telephone (FAMPWS) -- ZACKERY NUNEZ ([id number]) 1960 F Date Time Provider Department 01/08/24 MIKAYLA STRNAGE [facility] During your visit today, we recorded the following information about you: Mikayal Strange MD 01/08/2024 9:14 AM Signed Protein levels are slightly higher. Make sure taking boost, ensure or carnation instant breakfast regularly. Slightly anemic. Recheck anemia labs in one week Jade Lopez LPN 01/08/2024 9:25 AM Signed Left message to call and speak with nurse. Lara Brown RN 01/08/2024 12:31 PM Signed Patient calls and notified of results and providers instructions. Patient verbalizes understanding. Lab appt scheduled. Lara Brown RN Allergies As of Date: 01/08/2024 Noted Allergy Reaction VAIBHAV (FEXOFENADINE HCL) 07/14/2014 5 - Intolerance AUGMENTIN (AMOXICILLIN-POT CLAVUL*07/14/2014 5 - Intolerance BENTYL (DICYCLOMINE HCL) 06/24/2015 8 - GI Upset BIAXIN (CLARITHROMYCIN) 07/14/2014 5 - Intolerance CECLOR (CEFACLOR) 07/14/2014 5 - Intolerance CELEBREX (CELECOXIB) 07/14/2014 5 - Intolerance COLESTIPOL 11/24/2014 14 - Other: See Comments Comments: shaky/headaches/increased nausea COMPAZINE (PROCHLORPERAZINE EDISY*07/14/2014 5 - Intolerance DOXEPIN 07/14/2014 5 - Intolerance FENTANYL 07/14/2014 5 - Intolerance HUMIRA (ADALIMUMAB) 07/14/2014 5 - Intolerance LEVAQUIN (LEVOFLOXACIN) 07/14/2014 5 - Intolerance METFORMIN 11/21/2023 8 - GI Upset Comments: Gi intolerance PLAQUENIL (HYDROXYCHLOROQUINE SUL*07/14/2014 5 - Intolerance SELDANE 07/14/2014 5 - Intolerance SEPTRA (SULFAMETHOXAZOLE-TRIMETHO *07/14/2014 5 - Intolerance SULFA (SULFONAMIDE ANTIBIOTICS) 07/14/2014 5 - Intolerance VIBRAMYCIN (DOXYCYCLINE CALCIUM) 07/14/2014 5 - Intolerance VICODIN (HYDROCODONE-ACETAMINOPHE* 07/14/2014 5 - Intolerance Date Reviewed: 01/05/2024 Reviewed by: Evelyn Castaneda MA - Fully Assessed Reason for Visit: Results [95] Primary Visit Diagnosis:Anemia, unspecified type [D64.9] Order(s):COMPLETE BLOOD COUNT AND DIFFERENTIAL [SQCBCDIF] Order #: [id number] FUTURE IRON AND TIBC [SQIRON] Order #: [id number] FUTURE VITAMIN B12 [SQB12] Order #: [id number] FUTURE FOLATE, SERUM [SQSERFOL] Order #: [id number] FUTURE FERRITIN [SQFERR] Order #: [id number] FUTURE IMMUNOCHEMICAL FECAL OCCULT BLOOD TEST [SQIFOBT] Order #: [id number] FUTURE Prescriptions as of 01/08/2024 - omeprazole (PRILOSEC) 40 mg capsule Take 40 mg by mouth once daily. - hyoscyamine sublingual (LEVSIN/SL) 0.125 mg Dissolve 1 tablet under the tongue every 4 hours as needed. - citalopram (CELEXA) 40 mg tablet Take 1 tablet by mouth once daily. - promethazine (PHENERGAN) 25 mg tablet Take 1 tablet by mouth every 6 hours as needed. - promethazine (PHENERGAN) 25 mg suppository 1 Suppository by RECTAL route every 6 hours as needed. - SUMAtriptan (IMITREX) 50 mg tablet Take 1 tablet (50 mg) by mouth as needed. - lisinopril (ZESTRIL) 10 mg tablet Take 1 tablet by mouth once daily. - atorvastatin (LIPITOR) 10 mg tablet Take 1 tablet by mouth once daily. - busPIRone HCl 30 mg tablet Take 1 tablet by mouth twice daily. - buprenorphine 20 mcg/hour ptwk APPLY 1 PATCH TOPICALLY ONCE A WEEK FOR 4 WEEKS - oxyCODONE-acetaminophen (PERCOCET) 5-325 mg tablet 1 tablet three times daily as needed. - upadacitinib (RINVOQ ORAL) Take 15 mg by mouth. - amitriptyline (ELAVIL) 10 mg tablet Take 1 tablet by mouth daily at bedtime. - gabapentin (NEURONTIN) 300 mg capsule Take 300 mg by mouth. 900 mg (3 tabs) a.m, 600 mg (2 tabs) p.m - predniSONE (DELTASONE) 10 mg tablet Take 1 tablet by mouth as needed for Pain. - Cetirizine 10 mg cap Take by mouth. - CALCIUM POLYCARBOPHIL (FIBER LAXATIVE ORAL) Take by mouth. - multivitamin tablet Take 1 tablet by mouth once daily. - latanoprost (XALATAN) 0.005 % ophthalmic solution 1 Drop daily at bedtime. - docusate sodium (COLACE) 100 mg capsule Take 100 mg by mouth twice daily. 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 Normal [facility] CBC W Auto Differential pane l (Bld)on 01-05-2024 Basophils (Bld) [#/Vol] 0.03 10*3/uL Normal <0.11 [facility] Comment on above: Order Comment: Speci men Type: BLOOD SPECIMENOrdering Facility: [facility] Address: [address] [place] [address] Performed By: #### 5 7021-8 ####[facility] [id number] [place] [address] [place] Basophils/100 WBC (Bld) 0.3 % Normal [facility] Comment on above: Order Comment: Speci men Type: BLOOD SPECIMENOrdering Facility: [facility] Address: [address] [place] [address] Performed By: #### 5 7021-8 ####[facility] [id number] [place] [address] [place] Differential cell count method Nom (Bld) Auto Normal [facility] Comment on above: Order Comment: Speci men Type: BLOOD SPECIMENOrdering Facility: [facility] Address: [address] [place] [address] Performed By: #### 5 7021-8 ####[facility] [id number] [place] [address] [place] Eosinophils (Bld) [#/Vol] 0.06 10*3/uL Normal <0.46 [facility] Comment on above: Order Comment: Speci men Type: BLOOD SPECIMENOrdering Facility: [facility] Address: [address] [place] [address] Performed By: #### 5 7021-8 ####[facility] [id number] [place] [address] [place] Eosinophils/100 WBC (Bld) 0.7 % Normal [facility] Comment on above: Order Comment: Speci men Type: BLOOD SPECIMENOrdering Facility: [facility] Address: [address] [place] [address] Performed By: #### 5 7021-8 ####[facility] [id number] [place] [address] [place] Erythrocyte distribution width (RBC) [Ratio] 12.9 % Normal 11.5-15.0 [facility] Comment on above: Order Comment: Speci men Type: BLOOD SPECIMENOrdering Facility: [facility] Address: [address] [place] [address] Performed By: #### 5 7021-8 ####[facility] [id number] [place] [address] [place] Hematocrit (Bld) [Volume fraction] 36.7 % Normal 36.0-46.0 [facility] Comment on above: Order Comment: Speci men Type: BLOOD SPECIMENOrdering Facility: [facility] Address: [address] [place] [address] Performed By: #### 5 7021-8 ####[facility] [id number] [place] [address] [place] Hemoglobin (Bld) [Mass/Vol] 11.4 g/dL Low 11.5-15.5 [facility] Comment on above: Order Comment: Speci men Type: BLOOD SPECIMENOrdering Facility: [facility] Address: [address] [place] [address] Performed By: #### 5 7021-8 ####[facility] [id number] [place] [address] [place] Immature granulocytes (Bld) [#/Vol] 0.03 10*3/uL Normal <0.10 [facility] Comment on above: Order Comment: Speci men Type: BLOOD SPECIMENOrdering Facility: [facility] Address: [address] [place] [address] Performed By: #### 5 7021-8 ####[facility] [id number] [place] [address] [place] Immature granulocytes/100 WBC (Bld) 0.3 % Normal [facility] Comment on above: Order Comment: Speci men Type: BLOOD SPECIMENOrdering Facility: [facility] Address: [address] [place] [address] Performed By: #### 5 7021-8 ####[facility] [id number] [place] [address] [place] Lymphocytes (Bld) [#/Vol] 2.44 10*3/uL Normal 1.00-4.00 [facility] Comment on above: Order Comment: Speci men Type: BLOOD SPECIMENOrdering Facility: [facility] Address: [address] [place] [address] Performed By: #### 5 7021-8 ####[facility] [id number] [place] [address] [place] Lymphocytes/100 WBC (Bld) 27.8 % Normal [facility] Comment on above: Order Comment: Speci men Type: BLOOD SPECIMENOrdering Facility: [facility] Address: [address] [place] [address] Performed By: #### 5 7021-8 ####[facility] [id number] [place] [address] [place] MCH (RBC) [Entitic mass] 28.7 pg Normal 26.0-34.0 [facility] Comment on above: Order Comment: Speci men Type: BLOOD SPECIMENOrdering Facility: [facility] Address: [address] [place] [address] Performed By: #### 5 7021-8 ####[facility] [id number] [place] [address] [place] MCHC (RBC) [Mass/Vol] 31.1 g/dL Normal 30.5-36.0 [facility] Comment on above: Order Comment: Speci men Type: BLOOD SPECIMENOrdering Facility: [facility] Address: [address] [place] [address] Performed By: #### 5 7021-8 ####[facility] [id number] [place] [address] [place] MCV (RBC) [Entitic vol] 92.4 fL Normal 80.0-100.0 [facility] Comment on above: Order Comment: Speci men Type: BLOOD SPECIMENOrdering Facility: [facility] Address: [address] [place] [address] Performed By: #### 5 7021-8 ####[facility] [id number] [place] [address] [place] Monocytes (Bld) [#/Vol] 0.97 10*3/uL High <0.87 [facility] Comment on above: Order Comment: Speci men Type: BLOOD SPECIMENOrdering Facility: [facility] Address: [address] [place] [address] Performed By: #### 5 7021-8 ####[facility] [id number] [place] [address] [place] Monocytes/100 WBC (Bld) 11.0 % Normal [facility] Comment on above: Order Comment: Speci men Type: BLOOD SPECIMENOrdering Facility: [facility] Address: [address] [place] [address] Performed By: #### 5 7021-8 ####[facility] [id number] [place] [address] [place] Neutrophils (Bld) [#/Vol] 5.25 10*3/uL Normal 1.45-7.50 [facility] Comment on above: Order Comment: Speci men Type: BLOOD SPECIMENOrdering Facility: [facility] Address: [address] [place] [address] Performed By: #### 5 7021-8 ####[facility] [id number] [place] [address] [place] Neutrophils/100 WBC (Bld) 59.9 % Normal [facility] Comment on above: Order Comment: Speci men Type: BLOOD SPECIMENOrdering Facility: [facility] Address: [address] [place] [address] Performed By: #### 5 7021-8 ####[facility] [id number] [place] [address] [place] Nucleated RBC (Bld) [#/Vol] 10*3/uL Normal <0.01 [facility] Comment on above: Order Comment: Speci men Type: BLOOD SPECIMENOrdering Facility: [facility] Address: [address] [place] [address] Performed By: #### 5 7021-8 ####[facility] [id number] [place] [address] [place] Nucleated RBC/100 WBC (Bld) [Ratio] 0.0 /100 WBC Normal [facility] Comment on above: Order Comment: Speci men Type: BLOOD SPECIMENOrdering Facility: [facility] Address: [address] [place] [address] Performed By: #### 5 7021-8 ####[facility] [id number] [place] [address] [place] Platelet mean volume (Bld) [Entitic vol] 11.5 fL Normal 9.0-12.7 [facility] Comment on above: Order Comment: Speci men Type: BLOOD SPECIMENOrdering Facility: [facility] Address: [address] [place] [address] Performed By: #### 5 7021-8 ####[facility] [id number] [place] [address] [place] Platelets (Bld) [#/Vol] 292 10*3/uL Normal 150-400 [facility] Comment on above: Order Comment: Speci men Type: BLOOD SPECIMENOrdering Facility: [facility] Address: [address] [place] [address] Performed By: #### 5 7021-8 ####[facility] [id number] [place] [address] [place] RBC (Bld) [#/Vol] 3.97 10*6/uL Normal 3.90-5.20 [facility] Comment on above: Order Comment: Speci men Type: BLOOD SPECIMENOrdering Facility: [facility] Address: [address] [place] [address] Performed By: #### 5 7021-8 ####[facility] [id number] [place] [address] [place] WBC (Bld) [#/Vol] 8.78 10*3/uL Normal 3.70-11.00 [facility] Comment on above: Order Comment: Speci men Type: BLOOD SPECIMENOrdering Facility: [facility] Address: [address] [place] [address] Performed By: #### 5 7021-8 ####[facility] [id number] [place] [address] [place] CNOValvin 01-05-2024 CNOV Office Visit (MERONWS ) -- ZACKERY NUNEZ ([id number]) 1960 F Date Time Provider Department 01/05/24 11:40 AM MIKAYLA STRANGEWS During your visit today, we recorded the following information about you: Pulse Blood pressure Weight Height 68/minute 138/62 92.6 kg 1.651 m Mikayla Strange MD 01/05/2024 12:01 PM Signed Patient presents with: Follow Up HPI: Patient presents today for office visit for 6 week follow up. Protein status is low. Started drinking Boost once every other day and is trying to make herself eat more. Not feeling as shaky anymore. Weight loss has slowed. She admits that some of the weight loss is now intentional. She has limited sense of smell for years. She feels that can affect her taste and appetite. It is picking up. She is happy with her weight and wants to lose more. No abd pain. No bowel changes. No shortness of breath or chest pain. Stress levels are stable. See previous ov: Concerns of muscle pulling on left side of neck/jaw only when yawning. Refers to when she yawns a muscle pulls her head downward. Had known ddd of cervial spine. Cervical spine injections has helped in the past. Sees Dr Ward for that. Advised to start there. No new neuro issues. DM: Has stopped Metformin about 6 months ago. Was having some gi issues. Doesn't watch diet too closely Hasn't had much of an appetite lately Checks sugars occasionally. Not daily. Continues on Cinnamon capsules and Berberine Still with some numbness and tingling in feet. No foot lesions. No polyuria or polydipsia. No vision changes. Sees Dr. Bedolla next week. HTN: Continues on Lisinopril 10 mg daily Denies chest pain and shortness of breath Denies headaches and dizziness. Denies palpitations and syncope. Denies edema. PSYCH: Emotionally is stressed. Currently estranged from her daughter. Continues on Citalopram 40 mg daily Buspirone 30 mg BID Followed by Rheum, Ophthalmology, and pain mgt. Has pinched nerve in left hip. Complains of pain in toes X [address] Ward next week. Setting up hip injection. HLD: Continues on Atorvastatin No myalgias Had recent labs per rheum that showed renal function Is stable. Has lost weight. Decreased appetite. Some of the weight loss with her stress. Will follow. Has some ear discomfort and ringing. No definite hearing loss. Some occasional balance issues. No new headache or numbness or weakness. Latest Ref Rng 11/23/2023 Cholesterol, Total <200 mg/dL 167 Triglyceride <150 mg/dL 148 HDL Cholesterol >39 mg/dL 54 Non HDL Cholesterol <130 mg/dL 113 Fasting Time hrs 12 VLDL Cholesterol <30 mg/dL 30 (H) TC:HDL Ratio <5.10 3.09 LDL Cholesterol <100 mg/dL 83 LDL:HDL Ratio <2.54 1.54 Albumin 3.9 - 4.9 g/dL 4.4 Bilirubin, Total 0.2 - 1.3 mg/dL 0.3 Bilirubin, Conjug <0.2 mg/dL <0.2 Alkaline Phosphatase 34 - 123 U/L 89 AST 13 - 35 U/L 14 ALT 7 - 38 U/L 6 (L) Protein, Total 6.3 - 8.0 g/dL 7.4 Creatinine, Ur Random (UCRR) 20.0 - 300.0 mg/dL 78.7 Albumin, Urine Random mg/L <12.0 Albumin/Creat Ratio <30 mg/g <15 Hemoglobin A1C 4.3 - 5.6 % 5.8 (H) Estimated Average Glucose mg/dL 120 TSH 0.270 - 4.200 mIU/L 2.190 Prealbumin 17 - 36 mg/dL 15 (L) MEDICATIONS: Current Outpatient Medications Medication Sig omeprazole (PRILOSEC) 40 mg capsule Take 40 mg by mouth once daily. hyoscyamine sublingual (LEVSIN/SL) 0.125 mg Dissolve 1 tablet under the tongue every 4 hours as needed. citalopram (CELEXA) 40 mg tablet Take 1 tablet by mouth once daily. promethazine (PHENERGAN) 25 mg tablet Take 1 tablet by mouth every 6 hours as needed. promethazine (PHENERGAN) 25 mg suppository 1 Suppository by RECTAL route every 6 hours as needed. SUMAtriptan (IMITREX) 50 mg tablet Take 1 tablet (50 mg) by mouth as needed. lisinopril (ZESTRIL) 10 mg tablet Take 1 tablet by mouth once daily. atorvastatin (LIPITOR) 10 mg tablet Take 1 tablet by mouth once daily. busPIRone HCl 30 mg tablet Take 1 tablet by mouth twice daily. buprenorphine 20 mcg/hour ptwk APPLY 1 PATCH TOPICALLY ONCE A WEEK FOR 4 WEEKS oxyCODONE-acetaminophen (PERCOCET) 5-325 mg tablet 1 tablet three times daily as needed. upadacitinib (RINVOQ ORAL) Take 15 mg by mouth. amitriptyline (ELAVIL) 10 mg tablet Take 1 tablet by mouth daily at bedtime. gabapentin (NEURONTIN) 300 mg capsule Take 300 mg by mouth. 5 tabs daily predniSONE (DELTASONE) 10 mg tablet Take 1 [...] facility-administered medications for this visit. ALLERGIES: ALLERGIES A (more content not included)... Normal [facility] Comprehensive metabolic 2000 panelon 01-05-2024 Albumin [Mass/Vol] 4.2 g/dL Normal 3.9-4.[address] [facility] Comment on above: Order Comment: Speci men Type: BLOOD SPECIMEN Ordering Facility: [facility] Address: [address] [place] [address] Performed By: #### 1 4338-8, 31335-7 #### [facility] CLIA [id number] [address] [place] [address] [place] ALP [Catalytic activity/Vol] 82 U/L Normal 34-123 [facility] Comment on above: Order Comment: Speci men Type: BLOOD SPECIMEN Ordering Facility: [facility] Address: [address] [place] [address] Performed By: #### 1 4338-8, #### [facility] CLIA [id number] [address] [place] [address] [place] ALT [Catalytic activity/Vol] 10 U/L Normal 7-38 [facility] Comment on above: Order Comment: Speci men Type: BLOOD SPECIMEN Ordering Facility: [facility] Address: [address] [place] [address] Performed By: #### 1 4338-8, #### [facility] CLIA [id number] [address] [place] [id number] [place] Anion gap [Moles/Vol] 12 mmol/L Normal 8-15 [facility] Comment on above: Order Comment: Speci men Type: BLOOD SPECIMEN Ordering Facility: [facility] Address: [address] [place] [address] Performed By: #### 1 4338-8, 67889-8 #### [facility] CLIA [id number] [address] [place] [address] [place] AST [Catalytic activity/Vol] 13 U/L Normal 13-35 [facility] Comment on above: Order Comment: Speci men Type: BLOOD SPECIMEN Ordering Facility: [facility] Address: [address] [place] [address] Performed By: #### 1 4338-8, 48671-1 #### [facility] CLIA [id number] [address] [place] [address] [place] Bilirubin [Mass/Vol] mg/dL Low 0.2-1.3 [facility] Comment on above: Order Comment: Speci men Type: BLOOD SPECIMEN Ordering Facility: [facility] Address: [address] [place] [address] Performed By: #### 1 4338-8, 08274-9 #### [facility] CLIA [id number] [address] [place] [address] [place] Calcium [Mass/Vol] 9.3 mg/dL Normal 8.5-10.[address] [facility] Comment on above: Order Comment: Speci men Type: BLOOD SPECIMEN Ordering Facility: [facility] Address: [address] [place] [address] Performed By: #### 1 4338-8, 58687-7 #### [facility] CLIA [id number] [address] [place] [address] [place] Chloride [Moles/Vol] 102 mmol/L Normal 98-107 [facility] Comment on above: Order Comment: Speci men Type: BLOOD SPECIMEN Ordering Facility: [facility] Address: [address] [place] [address] Performed By: #### 1 4338-8, 73198-1 #### [facility] CLIA [id number] [address] [place] [address] [place] [place] CO2 [Moles/Vol] 25 mmol/L Normal 22-30 [facility] Comment on above: Order Comment: Speci men Type: BLOOD SPECIMEN Ordering Facility: [facility] Address: [address] [place] [address] Performed By: #### 1 4338-8, 39685-8 #### [facility] CLIA [id number] [address] [place] [address] [place] Creatinine [Mass/Vol] 1.11 mg/dL High 0.58-0.96 [facility] Comment on above: Order Comment: Speci men Type: BLOOD SPECIMEN Ordering Facility: [facility] Address: [address] [place] [address] Performed By: #### 1 4338-8, 01586-9 #### [facility] CLIA [id number] [address] [place] [address] [place] Creatinine and Glomerular filtration rate.predicted panel (S/P/Bld) 55 mL/min/1.73m??? Low >=60 [facility] Comment on above: Order Comment: Speci men Type: BLOOD SPECIMEN Ordering Facility: [facility] Address: [address] [place] [address] Result Comment: Sienna mated Glomerular Filtration Rate (eGFR) is calculated using the 2020 CKD-EPI creatinine equation. This equation utilizes serum creatinine, sex, and age as parameters. The creatinine assay has traceable calibration to isotope dilution-mass spectrometry. Refer to KDIGO guidelines for clinical interpretation. In patients with unstable renal function, e.g. those with acute kidney injury, the eGFR may not accurately reflect actual GFR. Performed By: #### 1 4338-8, 85964-4 #### [facility] CLIA [id number] [address] [place] [address] [place] Glucose [Mass/Vol] 93 mg/dL Normal 74-[address] [facility] Comment on above: Order Comment: Specmonica men Type: BLOOD SPECIMEN Ordering Facility: [facility] Address: [address] [place] [address] Result Comment: The [place] Diabetes Association (ADA) provides guidance for cutoff values for fasting glucose and random glucose. The ADA defines fasting as no caloric intake for at least 8 hours. Fasting plasma glucose results between 100 to 125 mg/dL indicate increased risk for diabetes (prediabetes). Fasting plasma glucose results greater than or equal to 126 mg/dL meet the criteria for diagnosis of diabetes. In the absence of unequivocal hyperglycemia, results should be confirmed by repeat testing. In a patient with classic symptoms of hyperglycemia or hyperglycemic crisis, random plasma glucose results greater than or equal to 200 mg/dL meet the criteria for diagnosis of diabetes. Reference: Standards of Medical Care in Diabetes 2016, [place] Diabetes Association. Diabetes Care. 2016.39(Suppl 1). Performed By: #### 1 4338-8, 10330-4 #### [facility] CLIA [id number] [address] [place] [address] [place] Potassium [Moles/Vol] 4.0 mmol/L Normal 3.7-5.1 [facility] Comment on above: Order Comment: Cji men Type: BLOOD SPECIMEN Ordering Facility: [facility] Address: [address] [place] [address] Performed By: #### 1 4338-8, 03733-0 #### [facility] CLIA [id number] [address] [place] [address] [place] Protein [Mass/Vol] 6.6 g/dL Normal 6.3-8.[address] [facility] Comment on above: Order Comment: Cji flash Type: BLOOD SPECIMEN Ordering Facility: [facility] Address: [address] [place] [address] Performed By: #### 1 4338-8, 27158-7 #### [facility] CLIA [id number] [address] [place] [address] [place] Sodium [Moles/Vol] 139 mmol/L Normal 136-[address] [facility] Comment on above: Order Comment: Speci men Type: BLOOD SPECIMEN Ordering Facility: [facility] Address: [address] [place] [address] Performed By: #### 1 4338-8, 97647-0 #### [facility] CLIA [id number] [address] [place] [address] [place] Urea nitrogen [Mass/Vol] 16 mg/dL Normal 7-21 [facility] Comment on above: Order Comment: Speci men Type: BLOOD SPECIMEN Ordering Facility: [facility] Address: [address] [place] [address] Performed By: #### 1 4338-8, 33458-6 #### [facility] CLIA [id number] [address] [place] [address] [place] HbA1c (Bld)on 01-05-2024 Average glucose Estimated from glycated hemoglobin (Bld) [Mass/Vol] 114 mg/dL Normal [facility] Comment on above: Order Comment: Speci men Type: BLOOD SPECIMENOrdering Facility: [facility] Address: [address] [place] [address] Result Comment: eAG: (Estimated average glucose) is a calculated value from HgbA1c and is patient support representative of the average blood glucose level in the last 2-3 month period. Performed By: #### 5 5454-3 ####[facility] [id number] [place] [address] [place] HbA1c (Bld) [Mass fraction] 5.6 % Normal 4.3-5.6 [facility] Comment on above: Order Comment: Speci men Type: BLOOD SPECIMENOrdering Facility: [facility] Address: [address] [place] [address] Result Comment: [place] Diabetes Association guidelines indicate that patients with HgbA1c in the range 5.7-6.4% are at increased risk for development of diabetes, and intervention by lifestyle modification may be beneficial. HgbA1c greater or equal to 6.5% is considered diagnostic of diabetes. Performed By: #### 5 5454-3 ####[facility] [id number] [address] [place] Prealb SerPl-mCncon 01-05-20 24 Prealbumin [Mass/Vol] 16 mg/dL Low 17-36 [facility] Comment on above: Order Comment: Speci men Type: BLOOD SPECIMEN Ordering Facility: [facility] Address: [address] [place] [address] Performed By: #### 1 4338-8, 06438-3 #### [facility] CLIA [id number] [address] [place] [address] [place] [facility]NPNon [facility]-24[facility] ZACKERY NUNEZ ([id number]) 1960 F Date Time Provider Department 11/24/23 MIKAYLA STRANGE [facility] During your visit today, we recorded the following information about you: Mikayla Strange MD 11/24/2023 8:04 AM Signed Labs show her protein status is low. Add ensure or boost once a day until follow up. Sharon Rivera MA 11/24/2023 9:29 AM Signed Left message for patient to call office back ELADIO Gandara M Robin, JOURDAN 11/24/2023 9:43 AM Signed Pt returned call and given provider's message below with verbalized understanding. Patient agreeable. Allergies As of Date: 11/24/2023 Noted Allergy Reaction VAIBHAV (FEXOFENADINE HCL) 07/14/2014 5 - Intolerance AUGMENTIN (AMOXICILLIN-POT CLAVUL*07/14/2014 5 - Intolerance BENTYL (DICYCLOMINE HCL) 06/24/2015 8 - GI Upset BIAXIN (CLARITHROMYCIN) 07/14/2014 5 - Intolerance CECLOR (CEFACLOR) 07/14/2014 5 - Intolerance CELEBREX (CELECOXIB) 07/14/2014 5 - Intolerance COLESTIPOL 11/24/2014 14 - Other: See Comments Comments: shaky/headaches/increased nausea COMPAZINE (PROCHLORPERAZINE EDISY*07/14/2014 5 - Intolerance DOXEPIN 07/14/2014 5 - Intolerance FENTANYL 07/14/2014 5 - Intolerance HUMIRA (ADALIMUMAB) 07/14/2014 5 - Intolerance LEVAQUIN (LEVOFLOXACIN) 07/14/2014 5 - Intolerance METFORMIN 11/21/2023 8 - GI Upset Comments: Gi intolerance PLAQUENIL (HYDROXYCHLOROQUINE SUL*07/14/2014 5 - Intolerance SELDANE 07/14/2014 5 - Intolerance SEPTRA (SULFAMETHOXAZOLE-TRIMETHO *07/14/2014 5 - Intolerance SULFA (SULFONAMIDE ANTIBIOTICS) 07/14/2014 5 - Intolerance VIBRAMYCIN (DOXYCYCLINE CALCIUM) 07/14/2014 5 - Intolerance VICODIN (HYDROCODONE-ACETAMINOPHE* 07/14/2014 5 - Intolerance Date Reviewed: 11/21/2023 Reviewed by: Evelyn Castaneda MA - Fully Assessed Reason for Visit: Results [95] Prescriptions as of 11/24/2023 - omeprazole (PRILOSEC) 40 mg capsule Take 40 mg by mouth once daily. - hyoscyamine sublingual (LEVSIN/SL) 0.125 mg Dissolve 1 tablet under the tongue every 4 hours as needed. - citalopram (CELEXA) 40 mg tablet Take 1 tablet by mouth once daily. - promethazine (PHENERGAN) 25 mg tablet Take 1 tablet by mouth every 6 hours as needed. - promethazine (PHENERGAN) 25 mg suppository 1 Suppository by RECTAL route every 6 hours as needed. - SUMAtriptan (IMITREX) 50 mg tablet Take 1 tablet (50 mg) by mouth as needed. - lisinopril (ZESTRIL) 10 mg tablet Take 1 tablet by mouth once daily. - atorvastatin (LIPITOR) 10 mg tablet Take 1 tablet by mouth once daily. - busPIRone HCl 30 mg tablet Take 1 tablet by mouth twice daily. - buprenorphine 20 mcg/hour ptwk APPLY 1 PATCH TOPICALLY ONCE A WEEK FOR 4 WEEKS - oxyCODONE-acetaminophen (PERCOCET) 5-325 mg tablet 1 tablet three times daily as needed. - upadacitinib (RINVOQ ORAL) Take 15 mg by mouth. - amitriptyline (ELAVIL) 10 mg tablet Take 1 tablet by mouth daily at bedtime. - gabapentin (NEURONTIN) 300 mg capsule Take 300 mg by mouth. 5 tabs daily - predniSONE (DELTASONE) 10 mg tablet Take 1 tablet by mouth as needed for Pain. - Cetirizine 10 mg cap Take by mouth. - CALCIUM POLYCARBOPHIL (FIBER LAXATIVE ORAL) Take by mouth. - multivitamin tablet Take 1 tablet by mouth once daily. - latanoprost (XALATAN) 0.005 % ophthalmic solution 1 Drop daily at bedtime. - docusate sodium (COLACE) 100 mg capsule Take 100 mg by mouth twice daily. 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] 05/11/2019 Irritable bowel syndrome with constipation [K58*05/11/2019 Chronic insomnia [F51.04] 05/11/2019 HLD (hyperlipidemia) [E78.5] 05/11/2019 Hyperglycemia [R73.9] 05/11/2019 03/12/2021 Panic disorder [F41.0] 05/11/2019 Migraine without aura, intractable, without sta*05/11/2019 Chronic back pain [M54.9, G89.29] 09/17/2021 Type 2 diabetes mellitus without complication, *03/12/2021 Elevated BP without diagnosis of hypertension [*11/17/2021 01/14/2022 HTN (hypertension) [I10] 01/14/2022 Obesity, Class III, BMI 40-49.9 (morbid obesity*10/25/2022 05/12/2023 Stage 3 chronic kidney disease (HCC) [N18.30] 10/25/2022 Encounter Status:Closed by Adriano PANIAGUA on 11/24/23 Normal [facility] ALBUMIN/CREATININE RATIO, UR INEon 11-23-2023 Albumin DL <= 20 mg/L (U) [Mass/Vol] mg/dL Normal [facility] Comment on above: Order Comment: Nery vidales Type: BLOOD SPECIMEN Ordering Facility: [facility] Address: [address] [place] [address] Performed By: #### 1 4338-8, 86560-4 #### [facility] CLIA [id number] [address] [place] [address] [place] Albumin/Creatinine (U) [Mass ratio] <15 Normal <30 [facility] Comment on above: Order Comment: Nery vidales Type: BLOOD SPECIMEN Ordering Facility: [facility] Address: [address] [place] [address] Result Comment: Adul t Male and Female Nephrotic Criteria: <30 mg/g is considered normal to mildly increased 30-300 mg/g is considered moderately increased >300 mg/g is considered severely increased KDIGO. (2013). KDIGO 2012 Clinical Practice Guideline for the Evaluation and Management of Chronic Kidney Disease. Official Journal of the International Society of Nephrology, 3(1), 1-150. Performed By: #### 1 4338-8, 10775-1 #### [facility] CLIA [id number] [address] [place] [address] [place] Creatinine (U) [Mass/Vol] 78.7 mg/dL Normal 20.0-300.0 [facility] Comment on above: Order Comment: Nery vidales Type: BLOOD SPECIMEN Ordering Facility: [facility] Address: [address] [place] [address] Performed By: #### 1 4338-8, 61366-7 #### [facility] CLIA [id number] [address] [place] [address] [place] HbA1c (Bld)on 11-23-2023 Average glucose Estimated from glycated hemoglobin (Bld) [Mass/Vol] 120 mg/dL Normal [facility] Comment on above: Order Comment: Nery men Type: BLOOD SPECIMENOrdering Facility: [facility] Address: [address] [place] [address] Result Comment: eAG: (Estimated average glucose) is a calculated value from HgbA1c and is patient support representative of the average blood glucose level in the last 2-3 month period. Performed By: #### 5 5454-3 ####[facility] [id number] [address] [place] HbA1c (Bld) [Mass fraction] 5.8 % High 4.3-5.6 [facility] Comment on above: Order Comment: Nery vidales Type: BLOOD SPECIMENOrdering Facility: [facility] Address: [address] [place] [address] Result Comment: [place] Diabetes Association guidelines indicate that patients with HgbA1c in the range 5.7-6.4% are at increased risk for development of diabetes, and intervention by lifestyle modification may be beneficial. HgbA1c greater or equal to 6.5% is considered diagnostic of diabetes. Performed By: #### 5 5454-3 ####[facility] [id number] [place] [address] [place] Hepatic function 2000 panelo n 11-23-2023 Albumin [Mass/Vol] 4.4 g/dL Normal 3.9-4.[address] [facility] Comment on above: Order Comment: Nery vidales Type: BLOOD SPECIMEN Ordering Facility: [facility] Address: [address] [place] [address] Performed By: #### 1 4338-8, 65742-5 #### [facility] CLIA [id number] [address] [place] [address] [place] ALP [Catalytic activity/Vol] 89 U/L Normal 34-123 [facility] Comment on above: Order Comment: Speci men Type: BLOOD SPECIMEN Ordering Facility: [facility] Address: [address] [place] [address] Performed By: #### 1 4338-8, 00274-5 #### [facility] CLIA [id number] [address] [place] [address] [place] ALT [Catalytic activity/Vol] 6 U/L Low 7-38 [facility] Comment on above: Order Comment: Speci men Type: BLOOD SPECIMEN Ordering Facility: [facility] Address: [address] [place] [address] Performed By: #### 1 4338-8, 68009-3 #### [facility] CLIA [id number] [address] [place] [address] [place] AST [Catalytic activity/Vol] 14 U/L Normal 13-35 [facility] Comment on above: Order Comment: Speci men Type: BLOOD SPECIMEN Ordering Facility: [facility] Address: [address] [place] [address] Performed By: #### 1 4338-8, 41819-7 #### [facility] CLIA [id number] [address] [place] [address] [place] Bilirubin [Mass/Vol] 0.3 mg/dL Normal 0.2-1.3 [facility] Comment on above: Order Comment: Speci men Type: BLOOD SPECIMEN Ordering Facility: [facility] Address: [address] [place] [address] Performed By: #### 1 4338-8, 48104-7 #### [facility] CLIA [id number] [address] [place] [address] [place] Bilirubin.conjugated [Mass/Vol] mg/dL Normal <0.2 [facility] Comment on above: Order Comment: Speci men Type: BLOOD SPECIMEN Ordering Facility: [facility] Address: [address] [place] [address] Performed By: #### 1 4338-8, 90929-1 #### [facility] CLIA [id number] [address] [place] [address] [place] Protein [Mass/Vol] 7.4 g/dL Normal 6.3-8.[address] [facility] Comment on above: Order Comment: Speci men Type: BLOOD SPECIMEN Ordering Facility: [facility] Address: [address] [place] [address] Performed By: #### 1 4338-8, 65606-6 #### [facility] CLIA [id number] [address] [place] [address] [place] Lipid 1996 panelon 4 Cholesterol [Mass/Vol] 167 mg/dL Normal <200 [facility] Comment on above: Order Comment: Speci men Type: BLOOD SPECIMEN Ordering Facility: [facility] Address: [address] [place] [address] Result Comment: <200 mg/dL, Desirable 200-239 mg/dL, Borderline high >239 mg/dL, High Performed By: #### 1 4338-8, 08196-4 #### [facility] CLIA [id number] [address] [place] [address] [place] Cholesterol in HDL [Mass/Vol] 54 mg/dL Normal >39 [facility] Comment on above: Order Comment: Speci men Type: BLOOD SPECIMEN Ordering Facility: [facility] Address: [address] [place] [address] Result Comment: 40-5 9 mg/dL, Acceptable >59 mg/dL, High: Negative risk factor for coronary heart disease <40 mg/dL, Low: Positive risk factor for coronary heart disease Performed By: #### 1 4338-8, 77621-2 #### [facility] CLIA [id number] [address] [place] [address] [place] Cholesterol in LDL [Mass/Vol] 83 mg/dL Normal <100 [facility] Comment on above: Order Comment: Nery vidales Type: BLOOD SPECIMEN Ordering Facility: [facility] Address: [address] [place] [address] Result Comment: <100 mg/dL, Optimal 100-129 mg/dL, Near optimal/above optimal 130-159 mg/dL, Borderline high 160-189 mg/dL, High >189 mg/dL, Very high Secondary prevention optimal LDL Cholesterol levels are recommended to be < 70 mg/dL Performed By: #### 1 4338-8, 10090-6 #### [facility] CLIA [id number] [address] [place] [address] [place] Cholesterol in LDL/Cholesterol in HDL [Mass ratio] 1.54 {ratio} Normal <2.54 [facility] Comment on above: Order Comment: Nery vidales Type: BLOOD SPECIMEN Ordering Facility: [facility] Address: [address] [place] [address] Result Comment: Stefanie ramirez: 1. National Cholesterol Education Program ATP III Guideline At-A-Glance Quick Desk Reference: National Heart, Lung, and Blood Machias. National Institutes of Health. 2001: NIH Publication No. 01-3305. 2. An International Atherosclerosis Society position paper: global recommendations for the management of dyslipidemia: executive summary, Atherosclerosis. 2014: 232(2):410-413. Performed By: #### 1 4338-8, 35132-9 #### [facility] CLIA [id number] [address] [place] [address] [place] Cholesterol in VLDL [Mass/Vol] 30 mg/dL High <30 [facility] Comment on above: Order Comment: Nery vidales Type: BLOOD SPECIMEN Ordering Facility: [facility] Address: [address] [place] [address] Performed By: #### 1 4338-8, 47411-8 #### [facility] CLIA [id number] [address] [id number] [address] [place] Cholesterol non HDL [Mass/Vol] 113 mg/dL Normal <130 [facility] Comment on above: Order Comment: Speci men Type: BLOOD SPECIMEN Ordering Facility: [facility] Address: [address] [place] [address] Result Comment: <130 mg/dL, Optimal 130-159 mg/dL, Near optimal/above optimal 160-189 mg/dL, Borderline high 190-219 mg/dL, High >219 mg/dL, Very high Secondary prevention optimal non HDL Cholesterol levels are recommended to be <100 mg/dL Performed By: #### 1 4338-8, 56668-4 #### [facility] CLIA [id number] [address] [place] [address] [place] Cholesterol.total/Cho lesterol in HDL [Mass ratio] 3.09 {ratio} Normal <5.10 [facility] Comment on above: Order Comment: Speci men Type: BLOOD SPECIMEN Ordering Facility: [facility] Address: [address] [place] [address] Performed By: #### 1 4338-8, 17956-3 #### [facility] CLIA [id number] [address] [place] [address] [place] FASTING TIME 12 hrs Normal [facility] Comment on above: Order Comment: Speci men Type: BLOOD SPECIMEN Ordering Facility: [facility] Address: [address] [place] [address] Performed By: #### 1 4338-8, 10686-0 #### [facility] CLIA [id number] [address] [place] [address] [place] Triglyceride [Mass/Vol] 148 mg/dL Normal <150 [facility] Comment on above: Order Comment: Speci men Type: BLOOD SPECIMEN Ordering Facility: [facility] Address: [address] [place] [address] Result Comment: <150 mg/dL, Normal 150-199 mg/dL, Borderline high 200-499 mg/dL, High >499 mg/dL, Very high Performed By: #### 1 4338-8, 49744-8 #### [facility] CLIA [id number] [address] [place] [address] [place] Prealb SerPl-mCncon 11-23-19 Prealbumin [Mass/Vol] 15 mg/dL Low 17-36 [facility] Comment on above: Order Comment: Speci men Type: BLOOD SPECIMEN Ordering Facility: [facility] Address: [address] [place] [address] Performed By: #### 1 4338-8, 38816-2 #### [facility] CLIA [id number] [address] [place] [address] [place] TSH SerPl-aCncon 11-23-2023 TSH Qn 2.190 m[IU]/L Normal 0.270-4.20 0 [facility] Comment on above: Order Comment: Speci men Type: BLOOD SPECIMEN Ordering Facility: [facility] Address: [address] [place] [address] Performed By: #### 1 4338-8, 98767-9 #### [facility] CLIA [id number] [address] [place] [address] [place] CNOVon 11-21-2023 CNOV Office Visit (FAMPWS ) -- ZACKERY NUNEZ ([id number]) 1960 F Date Time Provider Department 11/21/23 1:40 PM MIKAYLA STRANGEWS During your visit today, we recorded the following information about you: Pulse Blood pressure Weight Height 76/minute 105/68 94.3 kg 1.651 m Mikayla Strange MD 11/21/2023 2:06 PM Signed Patient presents with: 6 Month Exam HPI: Patient presents today for office visit for follow up. Concerns of muscle pulling on left side of neck/jaw only when yawning. Refers to when she yawns a muscle pulls her head downward. Had known ddd of cervial spine. Cervical spine injections has helped in the past. Sees Dr Ward for that. Advised to start there. No new neuro issues. DM: Has stopped Metformin about 6 months ago. Was having some gi issues. Doesn't watch diet too closely Hasn't had much of an appetite lately Checks sugars occasionally. Not daily. Continues on Cinnamon capsules and Berberine Still with some numbness and tingling in feet. No foot lesions. No polyuria or polydipsia. No vision changes. Sees Dr. Bedolla next week. HTN: Continues on Lisinopril 10 mg daily Denies chest pain and shortness of breath Denies headaches and dizziness. Denies palpitations and syncope. Denies edema. PSYCH: Emotionally is stressed. Currently estranged from her daughter. Continues on Citalopram 40 mg daily Buspirone 30 mg BID Followed by Rheum, Ophthalmology, and pain mgt. Has pinched nerve in left hip. Complains of pain in toes X [address] Ward next week. Setting up hip injection. HLD: Continues on Atorvastatin No myalgias Had recent labs per rheum that showed renal function Is stable. Has lost weight. Decreased appetite. Some of the weight loss with her stress. Will follow. Has some ear discomfort and ringing. No definite hearing loss. Some occasional balance issues. No new headache or numbness or weakness. MEDICATIONS: Current Outpatient Medications Medication Sig omeprazole (PRILOSEC) 40 mg capsule Take 40 mg by mouth once daily. citalopram (CELEXA) 40 mg tablet Take 1 tablet by mouth once daily. promethazine (PHENERGAN) 25 mg tablet Take 1 tablet by mouth every 6 hours as needed. promethazine (PHENERGAN) 25 mg suppository 1 Suppository by RECTAL route every 6 hours as needed. SUMAtriptan (IMITREX) 50 mg tablet Take 1 tablet (50 mg) by mouth as needed. lisinopril (ZESTRIL) 10 mg tablet Take 1 tablet by mouth once daily. atorvastatin (LIPITOR) 10 mg tablet Take 1 tablet by mouth once daily. busPIRone HCl 30 mg tablet Take 1 tablet by mouth twice daily. buprenorphine 20 mcg/hour ptwk APPLY 1 PATCH TOPICALLY ONCE A WEEK FOR 4 WEEKS oxyCODONE-acetaminophen (PERCOCET) 5-325 mg tablet 1 tablet three times daily as needed. upadacitinib (RINVOQ ORAL) Take 15 mg by mouth. amitriptyline (ELAVIL) 10 mg tablet Take 1 tablet by mouth daily at bedtime. gabapentin (NEURONTIN) 300 mg capsule Take 300 mg by mouth. 5 tabs daily predniSONE (DELTASONE) 10 mg tablet Take 1 tablet by mouth as needed for Pain. Cetirizine 10 mg cap Take by mouth. CALCIUM POLYCARBOPHIL (FIBER LAXATIVE ORAL) Take by mouth. multivitamin tablet Take 1 tablet by mouth once daily. latanoprost (XALATAN) 0.005 % ophthalmic solution 1 Drop daily at bedtime. docusate sodium (COLACE) 100 mg capsule Take 100 mg by mouth twice daily. hyoscyamine sublingual (LEVSIN/SL) 0.125 mg Dissolve 1 tablet under the tongue every 4 hours as needed. No current facility-administered medications for this visit. ALLERGIES: ALLERGIES Allergen Reactions Vaibhav [Fexofenadi* Intolerance Augmentin [Amoxicil* Intolerance Bentyl [Dicyclomine* [...] ARTHRP KNE CONDYLEANDPLATU MEDIALANDLAT COMPARTMENTS 04/22/2014 right COLON (more content not included)... Normal [facility] Absolute lymphocyte countOrd ered By: Smita Buck on 08-10-2023 Lymphocytes Auto (Unsp spec) [#/Vol] 2.84 10*3/uL 0.83-4.51 [facility] Automated lymphocyte count a s percentage of total leukocytesOrdered By: Smita Buck on 08-10-2023 Lymphocytes/100 WBC Auto (Unsp spec) 37.3 % 19-41 [facility] Basophil percentageOrdered B y: Smita Buck on 08-10-2023 Basophils/100 WBC (Bld) 0.5 % 0-1 [facility] Bilirubin [Mass/Vol] 0.30 mg/dL 0.20-1.00 [facility] Comment on above: For patients on eltr ombopag therapy, use of Dimension [place] TBIL is not recommended. Chloride [Moles/Vol] 108 mmol/L 98-107 [facility] Eosinophils/100 WBC (Bld) 1.7 % 0-5 [facility] Glucose [Mass/Vol] 88 mg/dL 74-106 [facility] Hemoglobin (Bld) [Mass/Vol] 11.8 g/dL 12.0-15.0 [facility] Monocytes/100 WBC (Bld) 6.2 % 0-10 [facility] Neutrophils (Bld) [#/Vol] 4.1 10*3/uL 2.0-7.7 [facility] Neutrophils/100 WBC (Bld) 54.2 % 47-70 [facility] Potassium [Moles/Vol] 3.5 mmol/L 3.5-5.1 [facility] Protein [Mass/Vol] 6.9 g/dL 6.4-8.2 [facility] Sodium [Moles/Vol] 141 mmol/L 136-145 [facility] WBC (Bld) [#/Vol] 7.6 10*3/uL 4.4-11.0 [facility] Determination of erythrocyte mean corpuscular volume (MCV)Ordered By: Smita Buck on 08-10-2023 MCV (RBC) [Entitic vol] 92.2 fL 81-99 [facility] Erythrocyte distribution wid th ratioOrdered By: [facility] on 08-10-2023 Erythrocyte distribution width (RBC) [Ratio] 13.0 % 11.6-14.6 [facility] Erythrocyte distribution wid th standard deviationOrdered By: [facility] on 08-10-2023 Erythrocyte distribution width (RBC) [Entitic vol] 44.3 fL 35.1-43.9 [facility] Hematocrit Auto (Bld) [Volum e fraction]Ordered By: [facility] on 08-10-2023 Hematocrit (Bld) [Volume fraction] 37.8 % 37-47 [facility] Immature granulocytes/100 WB C Auto (Bld)Ordered By: [facility] on 08-10-2023 Immature granulocytes/100 WBC (Bld) 0.100 % 0.0-0.9 [facility] Comment on above: IG% - Immature Granu locytes (promyelocytes, myelocytes and metamyelocytes) > 1% indicates that a LEFT SHIFT is Present. Laboratory - Chemistry and C hemistry - challengeOrdered By: [facility] on 08-10-2023 Albumin/Globulin [Mass ratio] 1.2 {ratio} 0.9-2.4 [facility] ALP [Catalytic activity/Vol] 66 U/L 45-117 [facility] ALT [Catalytic activity/Vol] 15 U/L 13-56 [facility] CO2 [Moles/Vol] 26.0 mmol/L 21.0-32.0 [facility] Globulin (S) [Mass/Vol] 3.2 g/dL 2.2-4.2 [facility] Urea nitrogen/Creatinine [Mass ratio] 9.5 mg/mg 10-20 [facility] Laboratory - Hematology and Cell countsOrdered By: [facility] 08-10-2023 MCH (RBC) [Entitic mass] 28.8 pg 27.0-32.0 [facility] MCHC (RBC) [Mass/Vol] 31.2 g/dL 32-36 [facility] Nucleated RBC/100 WBC (Bld) [Ratio] 0 % 0-5 [facility] Platelet mean volume (Bld) [Entitic vol] 11.3 fL 6.2-12.0 [facility] Platelets (Bld) [#/Vol] 220 10*3/uL 150-450 [facility] No Panel InformationOrdered By: Smita Buck on 08-10-2023 Estimated GFR (MDRD) Amer 60 mL/min >60 [facility] Comment on above: GFR Calc Estimated GFR (MDRD) Non-Af Amer 50 mL/min >60 [facility] Comment on above: Non- GFR Calc RBC Auto (Bld) [#/Vol]Ordere d By: Smita Buck on 08-10-2023 RBC (Bld) [#/Vol] 4.10 10*6/uL 4.2-5.4 [facility] Serum or plasma calcium francisco urement (mass/volume)Ordered By: Smita Buck on 08-10-2023 Calcium [Mass/Vol] 9.0 mg/dL 8.5-10.1 [facility] Serum or plasma creatinine m easurement (mass/volume)Ordered By: Smita Buck on 08-10-2023 Creatinine [Mass/Vol] 1.16 mg/dL 0.55-1.02 [facility] Comment on above: The validity of the calculated GFR & GFRAA in patients over 70 years has not been determined. Clinical correlation is essential. Serum or plasma urea nitroge n measurement (mass/volume)Ordered By: Smita Buck on 08-10-2023 Urea nitrogen [Mass/Vol] 11 mg/dL 7-18 [facility] Thin prep Papanicolaou smear with manual screeningOrdered By: Smita Buck on 08-10-2023 Thin prep Papanicolaou smear with manual screening 3.7 g/dL 3.2-5.0 [facility] Thin prep Papanicolaou smear with manual screening 22 U/L 15-37 [facility] Thin prep Papanicolaou smear with manual screening 7 - [facility] Laboratory - Drug toxicology Ordered By: Latia Ward on 07-12-2023 Amphetamines Ql (U) Negative <1000 ng/mL [facility] Benzodiazepines Ql (U) Negative < 200 ng/mL [facility] Cannabinoids Screen Ql (U) Negative < 50 ng/mL [facility] Cocaine Ql (U) Negative < 300 ng/mL [facility] Opiates Ql (U) Positive < 300 ng/mL [facility] No Panel InformationOrdered By: Latia Ward on 07-12-2023 MDMA (Ecstasy) Screen Negative < 500 ng/mL [facility] Miscellaneous Test See comment [facility] Comment on above: [id number] 6+OXYCODONE-B UND (ng/mL) DRUG RESULT SCREEN CUTOFF____ Amphetamines,Urine Negative ng/mL 1000 Amphetamine test includes Amphetamine and Methamphetamine.Barbiturates Negative ng/mL 200Benzodiazepines Negative ng/mL 200Cannabinoid Negative ng/mL 20Cocaine (Metab) Negative ng/mL 300Opiates Negative ng/mL 300 Opiates test includes Codeine, Morphine, Hydromorphone, Hydrocodone. Oxycodone/Oxymorphone,Urine POSITIVE ng/mL 300 Test includes Oxycodone and Oxymorphone. Oxycodone Positive Oxycodone Conf, MS,UR 1927 ng/mL 300 Oxymorphone Positive Oxymorphone Conf, MS,UR 1165 ng/mL 300 TESTING PERFORMED AT [facility]. ORIGINAL REPORT ON FILE IN LAB CONTAINS ADDITIONAL TEST SITE INFORMATION. Urine Barbiturates Screen Negative < 200 ng/mL [facility] Urine Drug Screen Comment [facility] Comment on above: CONFIRMATORY TESTING FOR ALL POSITIVE URINE DRUG SCREENRESULTS WILL ONLY BE SENT OUT UPON PHYSICIAN ORDER. VISTA Urine Drug Screen methods provide only preliminaryanalytical test results. A more specific alternate chemicalmethod must be used in order to obtain a confirmedanalytical result. Gas chromatography/mass spectrometery(GC/MS) is the preferred confirmatory method. Clinicalconsideration and professional judgement should be appliedto any drug of abuse test result, particularly whenpreliminary positive results are used. URINE TCA TESTING MUST BE ORDERED SEPARATELY. USE TESTMNEMONIC: [facility] Urine Methadone Screen Negative < 300 ng/mL [facility] Urine phencyclidine (PCP) de tectionOrdered By: Latia Ward on 07-12-2023 Phencyclidine Ql (U) Negative < 25 ng/mL [facility] Absolute lymphocyte countOrd ered By: Smita Buck on 03-24-2023 Lymphocytes Auto (Unsp spec) [#/Vol] 3.82 10*3/uL 0.83-4.51 [facility] Basophil percentageOrdered B y: Smita Buck on 03-24-2023 Basophils/100 WBC (Bld) 0.3 % 0-1 [facility] Bilirubin [Mass/Vol] 0.30 mg/dL 0.20-1.00 [facility] Comment on above: For patients on eltr ombopag therapy, use of Dimension [place] TBIL is not recommended. Chloride [Moles/Vol] 103 mmol/L 98-107 [facility] Eosinophils/100 WBC (Bld) 0.7 % 0-5 [facility] Glucose [Mass/Vol] 77 mg/dL 74-106 [facility] Neutrophils (Bld) [#/Vol] 7.1 10*3/uL 2.0-7.7 [facility] Neutrophils/100 WBC (Bld) 60.3 % 47-70 [facility] Potassium [Moles/Vol] 4.0 mmol/L 3.5-5.1 [facility] Protein [Mass/Vol] 7.2 g/dL 6.4-8.2 [facility] Sodium [Moles/Vol] 137 mmol/L 136-145 [facility] WBC (Bld) [#/Vol] 11.8 10*3/uL 4.4-11.0 [facility] Blood erythrocytes count (nu mber/volume)Ordered By: Smita Buck on 03-24-2023 RBC (Bld) [#/Vol] 4.21 10*6/uL 4.2-5.4 [facility] Blood hemoglobin measurement (mass/volume)Ordered By: Smita Buck on 03-24-2023 Hemoglobin (Bld) [Mass/Vol] 12.6 g/dL 12.0-15.0 [facility] Blood lymphocytes/100 leukoc ytesOrdered By: Smita Buck on 03-24-2023 Lymphocytes/100 WBC (Bld) 32.5 % 19-41 [facility] Blood monocytes/100 leukocyt esOrdered By: Smita Buck on 03-24-2023 Monocytes/100 WBC (Bld) 5.9 % 0-10 [facility] Blood platelet mean volumeOr dered By: Smita Buck on 03-24-2023 Platelet mean volume (Bld) [Entitic vol] 10.0 fL 6.2-12.0 [facility] Determination of erythrocyte mean corpuscular volume (MCV)Ordered By: Smita Buck on 03-24-2023 MCV (RBC) [Entitic vol] 91.4 fL 81-99 [facility] Hematocrit Auto (Bld) [Volum e fraction]Ordered By: Smita Buck on 03-24-2023 Hematocrit (Bld) [Volume fraction] 38.5 % 37-47 [facility] Laboratory - Chemistry and C hemistry - challengeOrdered By: Smita Buck on 03-24-2023 ALP [Catalytic activity/Vol] 71 U/L 45-117 [facility] ALT [Catalytic activity/Vol] 23 U/L 13-56 [facility] CO2 [Moles/Vol] 27.0 mmol/L 21.0-32.0 [facility] Globulin (S) [Mass/Vol] 3.6 g/dL 2.2-4.2 [facility] Urea nitrogen/Creatinine [Mass ratio] 16.7 mg/mg 10-20 [facility] Laboratory - Hematology and Cell countsOrdered By: Smita Buck on 03-24-2023 Erythrocyte distribution width (RBC) [Entitic vol] 47.2 fL 35.1-43.9 [facility] Erythrocyte distribution width (RBC) [Ratio] 14.1 % 11.6-14.6 [facility] Immature granulocytes/100 WBC (Bld) 0.300 % 0.0-0.9 [facility] Comment on above: IG% - Immature Granu locytes (promyelocytes, myelocytes and metamyelocytes) > 1% indicates that a LEFT SHIFT is Present. MCH (RBC) [Entitic mass] 29.9 pg 27.0-32.0 [facility] Nucleated RBC/100 WBC (Bld) [Ratio] 0 % 0-5 [facility] MCHC Auto (RBC) [Mass/Vol]Or dered By: Smita Buck on 03-24-2023 MCHC (RBC) [Mass/Vol] 32.7 g/dL 32-36 [facility] No Panel InformationOrdered By: Smita Buck on 03-24-2023 Estimated GFR (MDRD) Amer 62 mL/min >60 [facility] Comment on above: GFR Calc Estimated GFR (MDRD) Non-Af Amer 51 mL/min >60 [facility] Comment on above: Non- GFR Calc Platelets bldOrdered By: Christopher Buck on 03-24-2023 Platelets (Bld) [#/Vol] 325 10*3/uL 150-450 [facility] Serum or plasma albumin francisco urement (mass/volume)Ordered By: Smita Buck on 03-24-2023 Albumin [Mass/Vol] 3.6 g/dL 3.2-5.0 [facility] Serum or plasma albumin/glob ulin mass ratioOrdered By: Smita Buck on 03-24-2023 Albumin/Globulin [Mass ratio] 1.0 {ratio} 0.9-2.4 [facility] Serum or plasma calcium francisco urement (mass/volume)Ordered By: Smita Buck on 03-24-2023 Calcium [Mass/Vol] 8.8 mg/dL 8.5-10.1 [facility] Serum or plasma creatinine m easurement (mass/volume)Ordered By: Smita Buck on 03-24-2023 Creatinine [Mass/Vol] 1.14 mg/dL 0.55-1.02 [facility] Comment on above: The validity of the calculated GFR & GFRAA in patients over 70 years has not been determined. Clinical correlation is essential. Serum or plasma urea nitroge n measurement (mass/volume)Ordered By: Smita Buck on 03-24-2023 Urea nitrogen [Mass/Vol] 19 mg/dL 7-18 [facility] Thin prep Papanicolaou smear with manual screeningOrdered By: Smita Buck on 03-24-2023 Thin prep Papanicolaou smear with manual screening 15 U/L 15-37 [facility] Thin prep Papanicolaou smear with manual screening 7 5-15 [facility] Absolute lymphocyte countOrd ered By: Smita Buck on 12-26-2022 Lymphocytes Auto (Unsp spec) [#/Vol] 4.56 10*3/uL 0.83-4.51 [facility] Basophil percentageOrdered B y: Smita Buck on 12-26-2022 Basophils/100 WBC (Bld) 0.5 % 0-1 [facility] Bilirubin [Mass/Vol] 0.40 mg/dL 0.20-1.00 [facility] Comment on above: For patients on eltr ombopag therapy, use of Dimension [place] TBIL is not recommended. Chloride [Moles/Vol] 107 mmol/L 98-107 [facility] Eosinophils/100 WBC (Bld) 1.7 % 0-5 [facility] Glucose [Mass/Vol] 88 mg/dL 74-106 [facility] Neutrophils (Bld) [#/Vol] 3.1 10*3/uL 2.0-7.7 [facility] Neutrophils/100 WBC (Bld) 36.6 % 47-70 [facility] Potassium [Moles/Vol] 3.8 mmol/L 3.5-5.1 [facility] Protein [Mass/Vol] 7.4 g/dL 6.4-8.2 [facility] Sodium [Moles/Vol] 137 mmol/L 136-145 [facility] WBC (Bld) [#/Vol] 8.4 10*3/uL 4.4-11.0 [facility] Blood erythrocytes count (nu mber/volume)Ordered By: Smita Buck on 12-26-2022 RBC (Bld) [#/Vol] 4.39 10*6/uL 4.2-5.4 [facility] Blood hemoglobin measurement (mass/volume)Ordered By: Smita Buck on 12-26-2022 Hemoglobin (Bld) [Mass/Vol] 12.5 g/dL 12.0-15.0 [facility] Blood lymphocytes/100 leukoc ytesOrdered By: Smita Buck on 12-26-2022 Lymphocytes/100 WBC (Bld) 54.1 % 19-41 [facility] Blood monocytes/100 leukocyt esOrdered By: Smita Buck on 12-26-2022 Monocytes/100 WBC (Bld) 6.9 % 0-10 [facility] Blood platelet mean volumeOr dered By: Smitaeladio Buck on 12-26-2022 Platelet mean volume (Bld) [Entitic vol] 11.9 fL 6.2-12.0 [facility] Determination of erythrocyte mean corpuscular volume (MCV)Ordered By: Smita Buck on 12-26-2022 MCV (RBC) [Entitic vol] 90.0 fL 81-99 [facility] Hematocrit Auto (Bld) [Volum e fraction]Ordered By: [facility] on 12-26-2022 Hematocrit (Bld) [Volume fraction] 39.5 % 37-47 [facility] Laboratory - Chemistry and C hemistry - challengeOrdered By: [facility] on 12-26-2022 ALP [Catalytic activity/Vol] 64 U/L 45-117 [facility] ALT [Catalytic activity/Vol] 19 U/L 13-56 [facility] CO2 [Moles/Vol] 24.0 mmol/L 21.0-32.0 [facility] Globulin (S) [Mass/Vol] 3.7 g/dL 2.2-4.2 [facility] Urea nitrogen/Creatinine [Mass ratio] 15.2 mg/mg 10-20 [facility] Laboratory - Hematology and Cell countsOrdered By: [facility] on 12-26-2022 Erythrocyte distribution width (RBC) [Entitic vol] 43.8 fL 35.1-43.9 [facility] Erythrocyte distribution width (RBC) [Ratio] 13.3 % 11.6-14.6 [facility] Immature granulocytes/100 WBC (Bld) 0.200 % 0.0-0.9 [facility] Comment on above: IG% - Immature Granu locytes (promyelocytes, myelocytes and metamyelocytes) > 1% indicates that a LEFT SHIFT is Present. MCH (RBC) [Entitic mass] 28.5 pg 27.0-32.0 [facility] Nucleated RBC/100 WBC (Bld) [Ratio] 0 % 0-5 [facility] MCHC Auto (RBC) [Mass/Vol]Or dered By: Smita Buck on 12-26-2022 MCHC (RBC) [Mass/Vol] 31.6 g/dL 32-36 [facility] No Panel InformationOrdered By: Smita Buck on 12-26-2022 Estimated GFR (MDRD) Amer 63 mL/min >60 [facility] Comment on above: GFR Calc Estimated GFR (MDRD) Non-Af Amer 52 mL/min >60 [facility] Comment on above: Non- GFR Calc Platelets bldOrdered By: Christopher Buck on 12-26-2022 Platelets (Bld) [#/Vol] 250 10*3/uL 150-450 [facility] Serum or plasma albumin francisco urement (mass/volume)Ordered By: Smita Buck on 12-26-2022 Albumin [Mass/Vol] 3.7 g/dL 3.2-5.0 [facility] Serum or plasma albumin/glob ulin mass ratioOrdered By: Smita Buck on 12-26-2022 Albumin/Globulin [Mass ratio] 1.0 {ratio} 0.9-2.4 [facility] Serum or plasma calcium francisco urement (mass/volume)Ordered By: Smita Buck on 12-26-2022 Calcium [Mass/Vol] 8.9 mg/dL 8.5-10.1 [facility] Serum or plasma creatinine m easurement (mass/volume)Ordered By: Smita Buck on 12-26-2022 Creatinine [Mass/Vol] 1.12 mg/dL 0.55-1.02 [facility] Comment on above: The validity of the calculated GFR & GFRAA in patients over 70 years has not been determined. Clinical correlation is essential. Serum or plasma urea nitroge n measurement (mass/volume)Ordered By: Smita Buck on 12-26-2022 Urea nitrogen [Mass/Vol] 17 mg/dL 7-18 [facility] Thin prep Papanicolaou smear with manual screeningOrdered By: Smita Buck on 12-26-2022 Thin prep Papanicolaou smear with manual screening 22 U/L 15-37 [facility] Thin prep Papanicolaou smear with manual screening 6 5-15 [facility] Absolute lymphocyte countOrd ered By: Smita Buck on 10-03-2022 Lymphocytes Auto (Unsp spec) [#/Vol] 5.10 10*3/uL 0.83-4.51 [facility] Basophil percentageOrdered B y: Smita Buck on 10-03-2022 Basophils/100 WBC (Bld) 0.4 % 0-1 [facility] Bilirubin [Mass/Vol] 0.20 mg/dL 0.20-1.00 [facility] Comment on above: For patients on eltr ombopag therapy, use of Dimension [place] TBIL is not recommended. Chloride [Moles/Vol] 103 mmol/L 98-107 [facility] Eosinophils/100 WBC (Bld) 1.9 % 0-5 [facility] Glucose [Mass/Vol] 92 mg/dL 74-106 [facility] Neutrophils (Bld) [#/Vol] 3.2 10*3/uL 2.0-7.7 [facility] Neutrophils/100 WBC (Bld) 34.8 % 47-70 [facility] Potassium [Moles/Vol] 3.7 mmol/L 3.5-5.1 [facility] Protein [Mass/Vol] 7.4 g/dL 6.4-8.2 [facility] Sodium [Moles/Vol] 135 mmol/L 136-145 [facility] WBC (Bld) [#/Vol] 9.1 10*3/uL 4.4-11.0 [facility] Blood erythrocytes count (nu mber/volume)Ordered By: Smita Buck on 10-03-2022 RBC (Bld) [#/Vol] 4.25 10*6/uL 4.2-5.4 [facility] Blood hemoglobin measurement (mass/volume)Ordered By: Smita Buck on 10-03-2022 Hemoglobin (Bld) [Mass/Vol] 12.3 g/dL 12.0-15.0 [facility] Blood lymphocytes/100 leukoc ytesOrdered By: Smita Buck on 10-03-2022 Lymphocytes/100 WBC (Bld) 56.3 % 19-41 [facility] Blood manual differential co mment interpretation (narrative result)Ordered By: Smita Buck on 10-03-2022 Manual differential comment Yousif (Bld) [Interp] SCANNED [facility] Blood monocytes/100 leukocyt esOrdered By: Smita Buck on 10-03-2022 Monocytes/100 WBC (Bld) 6.0 % 0-10 [facility] Blood platelet mean volumeOr dered By: Smita Buck on 10-03-2022 Platelet mean volume (Bld) [Entitic vol] 10.4 fL 6.2-12.0 [facility] Determination of erythrocyte mean corpuscular volume (MCV)Ordered By: Smita Buck on 10-03-2022 MCV (RBC) [Entitic vol] 92.0 fL 81-99 [facility] Hematocrit Auto (Bld) [Volum e fraction]Ordered By: Smita Buck on 10-03-2022 Hematocrit (Bld) [Volume fraction] 39.1 % 37-47 [facility] Laboratory - Chemistry and C hemistry - challengeOrdered By: Smita Buck on 10-03-2022 ALP [Catalytic activity/Vol] 75 U/L 45-117 [facility] ALT [Catalytic activity/Vol] 25 U/L 13-56 [facility] CO2 [Moles/Vol] 28.0 mmol/L 21.0-32.0 [facility] Globulin (S) [Mass/Vol] 3.6 g/dL 2.2-4.2 [facility] Urea nitrogen/Creatinine [Mass ratio] 15.5 mg/mg 10-20 [facility] Laboratory - Hematology and Cell countsOrdered By: Smita Buck on 10-03-2022 Erythrocyte distribution width (RBC) [Entitic vol] 41.1 fL 35.1-43.9 [facility] Erythrocyte distribution width (RBC) [Ratio] 12.4 % 11.6-14.6 [facility] Immature granulocytes/100 WBC (Bld) 0.600 % 0.0-0.9 [facility] Comment on above: IG% - Immature Granu locytes (promyelocytes, myelocytes and metamyelocytes) > 1% indicates that a LEFT SHIFT is Present. MCH (RBC) [Entitic mass] 28.9 pg 27.0-32.0 [facility] Nucleated RBC/100 WBC (Bld) [Ratio] 0 % 0-5 [facility] MCHC Auto (RBC) [Mass/Vol]Or dered By: Smita Buck on 10-03-2022 MCHC (RBC) [Mass/Vol] 31.5 g/dL 32-36 [facility] No Panel InformationOrdered By: Smita Buck on 10-03-2022 Estimated GFR (MDRD) Amer 64 mL/min >60 [facility] Comment on above: GFR Calc Estimated GFR (MDRD) Non-Af Amer 53 mL/min >60 [facility] Comment on above: Non- GFR Calc Platelets bldOrdered By: Christopher Buck on 10-03-2022 Platelets (Bld) [#/Vol] 344 10*3/uL 150-450 [facility] Serum or plasma albumin francisco urement (mass/volume)Ordered By: Smita Buck on 10-03-2022 Albumin [Mass/Vol] 3.8 g/dL 3.2-5.0 [facility] Serum or plasma albumin/glob ulin mass ratioOrdered By: Smita Buck on 10-03-2022 Albumin/Globulin [Mass ratio] 1.1 {ratio} 0.9-2.4 [facility] Serum or plasma calcium francisco urement (mass/volume)Ordered By: Smita Buck on 10-03-2022 Calcium [Mass/Vol] 9.2 mg/dL 8.5-10.1 [facility] Serum or plasma creatinine m easurement (mass/volume)Ordered By: Smita Buck on 10-03-2022 Creatinine [Mass/Vol] 1.10 mg/dL 0.55-1.02 [facility] Comment on above: The validity of the calculated GFR & GFRAA in patients over 70 years has not been determined. Clinical correlation is essential. Serum or plasma urea nitroge n measurement (mass/volume)Ordered By: Smita Buck on 10-03-2022 Urea nitrogen [Mass/Vol] 17 mg/dL 7-18 [facility] Thin prep Papanicolaou smear with manual screeningOrdered By: Smita Buck on 10-03-2022 Thin prep Papanicolaou smear with manual screening 23 U/L 15-37 [facility] Thin prep Papanicolaou smear with manual screening 4 5-[address] [facility] [address] FOOT WO IVCON LTon 2022 [facility] Glucose Glucometer (BldC) [M ass/Vol]Ordered By: Dr. Muniz on 08-26-2022 Glucose [Mass/Vol] 90 mg/dL 74-106 [facility] Comment on above: MANAGEMENT OF PATIEN T CARE PER NURSING PROTOCOL XR FOOT GENERAL 3V AP/LAT/OB L LEFTon 08-18-2022 [facility] Laboratory - Drug toxicology Ordered By: Dr. Ward on 07-13-2022 Amphetamines Ql (U) Negative <1000 ng/mL [facility] Benzodiazepines Ql (U) Negative < 200 ng/mL [facility] Cannabinoids Screen Ql (U) Negative < 50 ng/mL [facility] Cocaine Ql (U) Negative < 300 ng/mL [facility] Opiates Ql (U) Negative < 300 ng/mL [facility] No Panel InformationOrdered By: Dr. Ward on 07-13-2022 MDMA (Ecstasy) Screen Negative < 500 ng/mL [facility] Miscellaneous Test See comment [facility] Comment on above: [id number] 6+OXYCODONE-B UND (ng/mL) DRUG RESULT SCREEN CUTOFF____ Amphetamines,Urine Negative ng/mL 1000 Amphetamine test includes Amphetamine and Methamphetamine.Barbiturates Negative ng/mL 200Benzodiazepines Negative ng/mL 200Cannabinoid Negative ng/mL 20Cocaine (Metab) Negative ng/mL 300Opiates Negative ng/mL 300 Opiates test includes Codeine, Morphine, Hydromorphone, Hydrocodone. Oxycodone/Oxymorphone,Urine Positive ng/mL 300 Test includes Oxydodone and Oxymorphone. Oxycodone PositiveOxycodone Conf,MS,UR 634 ng/mL 300 Oxymorphone Negative 300 TESTING PERFORMED AT [facility]. ORIGINAL REPORT ON FILE IN LAB CONTAINS ADDITIONAL TEST SITE INFORMATION. Urine Barbiturates Screen Negative < 200 ng/mL [facility] Urine Drug Screen Comment [facility] Comment on above: CONFIRMATORY TESTING FOR ALL POSITIVE URINE DRUG SCREENRESULTS WILL ONLY BE SENT OUT UPON PHYSICIAN ORDER. VISTA Urine Drug Screen methods provide only preliminaryanalytical test results. A more specific alternate chemicalmethod must be used in order to obtain a confirmedanalytical result. Gas chromatography/mass spectrometery(GC/MS) is the preferred confirmatory method. Clinicalconsideration and professional judgement should be appliedto any drug of abuse test result, particularly whenpreliminary positive results are used. URINE TCA TESTING MUST BE ORDERED SEPARATELY. USE TESTMNEMONIC: [facility] Urine Methadone Screen Negative < 300 ng/mL [facility] Urine phencyclidine (PCP) de tectionOrdered By: Dr. Ward on 07-13-2022 Phencyclidine Ql (U) Negative < 25 ng/mL [facility] Absolute lymphocyte countOrd ered By: Dr. Buck on 07-06-2022 Lymphocytes Auto (Unsp spec) [#/Vol] 3.31 10*3/uL 0.83-4.51 [facility] Basophil percentageOrdered B y: Dr. Buck on 07-06-2022 Basophils/100 WBC (Bld) 0.3 % 0-1 [facility] Bilirubin [Mass/Vol] 0.30 mg/dL 0.20-1.00 [facility] Comment on above: For patients on eltr ombopag therapy, use of Dimension [place] TBIL is not recommended. Chloride [Moles/Vol] 106 mmol/L 98-107 [facility] Eosinophils/100 WBC (Bld) 2.2 % 0-5 [facility] Glucose [Mass/Vol] 96 mg/dL 74-106 [facility] Neutrophils (Bld) [#/Vol] 4.5 10*3/uL 2.0-7.7 [facility] Neutrophils/100 WBC (Bld) 51.9 % 47-70 [facility] Potassium [Moles/Vol] 4.3 mmol/L 3.5-5.1 [facility] Protein [Mass/Vol] 6.6 g/dL 6.4-8.2 [facility] Sodium [Moles/Vol] 140 mmol/L 136-145 [facility] WBC (Bld) [#/Vol] 8.7 10*3/uL 4.4-11.0 [facility] Blood erythrocytes count (nu mber/volume)Ordered By: Dr. Buck on 07-06-2022 RBC (Bld) [#/Vol] 4.02 10*6/uL 4.2-5.4 [facility] Blood hemoglobin measurement (mass/volume)Ordered By: Dr. Buck on 07-06-2022 Hemoglobin (Bld) [Mass/Vol] 11.6 g/dL 12.0-15.0 [facility] Blood lymphocytes/100 leukoc ytesOrdered By: Dr. Buck on 07-06-2022 Lymphocytes/100 WBC (Bld) 38.0 % 19-41 [facility] Blood monocytes/100 leukocyt esOrdered By: Dr. Buck on 07-06-2022 Monocytes/100 WBC (Bld) 6.9 % 0-10 [facility] Blood platelet mean volumeOr dered By: Dr. Buck on 07-06-2022 Platelet mean volume (Bld) [Entitic vol] 11.4 fL 6.2-12.0 [facility] Determination of erythrocyte mean corpuscular volume (MCV)Ordered By: Dr. Buck on 07-06-2022 MCV (RBC) [Entitic vol] 90.0 fL 81-99 [facility] Hematocrit Auto (Bld) [Volum e fraction]Ordered By: Dr. Buck on 07-06-2022 Hematocrit (Bld) [Volume fraction] 36.2 % 37-47 [facility] Laboratory - Chemistry and C hemistry - challengeOrdered By: Dr. Buck on 07-06-2022 ALP [Catalytic activity/Vol] 55 U/L 45-117 [facility] ALT [Catalytic activity/Vol] 25 U/L 13-56 [facility] CO2 [Moles/Vol] 27.0 mmol/L 21.0-32.0 [facility] Globulin (S) [Mass/Vol] 2.9 g/dL 2.2-4.2 [facility] Urea nitrogen/Creatinine [Mass ratio] 14.5 mg/mg 10-20 [facility] Laboratory - Hematology and Cell countsOrdered By: Dr. Buck on 07-06-2022 Erythrocyte distribution width (RBC) [Entitic vol] 43.9 fL 35.1-43.9 [facility] Erythrocyte distribution width (RBC) [Ratio] 13.3 % 11.6-14.6 [facility] Immature granulocytes/100 WBC (Bld) 0.700 % 0.0-0.9 [facility] Comment on above: IG% - Immature Granu locytes (promyelocytes, myelocytes and metamyelocytes) > 1% indicates that a LEFT SHIFT is Present. MCH (RBC) [Entitic mass] 28.9 pg 27.0-32.0 [facility] Nucleated RBC/100 WBC (Bld) [Ratio] 0 % 0-5 [facility] MCHC Auto (RBC) [Mass/Vol]Or dered By: Dr. Buck on 07-06-2022 MCHC (RBC) [Mass/Vol] 32.0 g/dL 32-36 [facility] No Panel InformationOrdered By: Dr. Buck on 07-06-2022 Estimated GFR (MDRD) Amer 64 mL/min >60 [facility] Comment on above: GFR Calc Estimated GFR (MDRD) Non-Af Amer 53 mL/min >60 [facility] Comment on above: Non- GFR Calc Platelets bldOrdered By: Dr. Buck on 07-06-2022 Platelets (Bld) [#/Vol] 307 10*3/uL 150-450 [facility] Serum or plasma albumin francisco urement (mass/volume)Ordered By: Dr. Buck on 07-06-2022 Albumin [Mass/Vol] 3.7 g/dL 3.2-5.0 [facility] Serum or plasma albumin/glob ulin mass ratioOrdered By: Dr. Buck on 07-06-2022 Albumin/Globulin [Mass ratio] 1.3 {ratio} 0.9-2.4 [facility] Serum or plasma calcium francisco urement (mass/volume)Ordered By: Dr. Buck on 07-06-2022 Calcium [Mass/Vol] 9.1 mg/dL 8.5-10.1 [facility] Serum or plasma creatinine m easurement (mass/volume)Ordered By: Dr. Buck on 07-06-2022 Creatinine [Mass/Vol] 1.10 mg/dL 0.55-1.02 [facility] Comment on above: The validity of the calculated GFR & GFRAA in patients over 70 years has not been determined. Clinical correlation is essential. Serum or plasma urea nitroge n measurement (mass/volume)Ordered By: Dr. Buck on 07-06-2022 Urea nitrogen [Mass/Vol] 16 mg/dL 7-18 [facility] Thin prep Papanicolaou smear with manual screeningOrdered By: Dr. Buck on 07-06-2022 Thin prep Papanicolaou smear with manual screening 18 U/L 15-37 [facility] Thin prep Papanicolaou smear with manual screening 7 5-15 [facility] XR Foot - left AP and Latera l and obliqueon 07-05-2022 IMPRESSION: 1. Remote fracture deformities of the proximal fourth and distal fifth metatarsal shaft, as described. 2. Hallux valgus deformity. 3. Degenerative changes as described Digital Marketing Manager: CHERELLE Transcribe Date/Time: Jul 05 2022 2:55P Dictated by : EDGAR CARABALLO MD This examination was interpreted and the report reviewed and electronically signed by: EDGAR CARABALLO MD on Jul 05 2022 3:01PM [facility] DIVISION OF RADIOLOGY * * *Final Report* * * DATE OF EXAM: Jul 04 2022 2:04PM WOX 5336 - XR FOOT 3V AP/LAT/OBL LT / PROCEDURE REASON: multiple diagnoses * * * * Physician Interpretation * * * * TITLE: XR FOOT 3V AP/LAT/OBL LT CLINICAL INDICATION: Diabetes. Nonunion of the left fourth metatarsal. TECHNIQUE: 3 view radiographic study of the left foot COMPARISON: Radiograph dated December 17, 2021 FINDINGS: Hallux valgus deformity. Mild first metatarsophalangeal joint space narrowing. Flexion of the second through fifth toes with scattered mild interphalangeal joint space narrowing. Remote healed fracture deformity of the distal fifth metatarsal shaft. Incompletely united remote fracture deformity of the proximal fourth metatarsal shaft with suggestion of slightly increased osseous bridging along its lateral aspect. Plantar calcaneal enthesophyte. Degenerative changes in the midfoot with joint space narrowing and subchondral sclerosis. DIVISION OF RADIOLOGY Provider, [facility] - 07/05/2022 * * *Final Report* * * DATE OF EXAM: Jul 04 2022 2:04PM WOX 5336 - XR FOOT 3V AP/LAT/OBL LT / PROCEDURE REASON: multiple diagnoses * * * * Physician Interpretation * * * * TITLE: XR FOOT 3V AP/LAT/OBL LT CLINICAL INDICATION: Diabetes. Nonunion of the left fourth metatarsal. TECHNIQUE: 3 view radiographic study of the left foot COMPARISON: Radiograph dated December 17, 2021 FINDINGS: Hallux valgus deformity. Mild first metatarsophalangeal joint space narrowing. Flexion of the second through fifth toes with scattered mild interphalangeal joint space narrowing. Remote healed fracture deformity of the distal fifth metatarsal shaft. Incompletely united remote fracture deformity of the proximal fourth metatarsal shaft with suggestion of slightly increased osseous bridging along its lateral aspect. Plantar calcaneal enthesophyte. Degenerative changes in the midfoot with joint space narrowing and subchondral sclerosis. IMPRESSION IMPRESSION: 1. Remote fracture deformities of the proximal fourth and distal fifth metatarsal shaft, as described. 2. Hallux valgus deformity. 3. Degenerative changes as described Digital Marketing Manager: CHERELLE Transcribe Date/Time: Jul 05 2022 2:55P Dictated by : EDGAR CARABALLO MD This examination was interpreted and the report reviewed and electronically signed by: EDGAR CARABALLO MD on Jul 05 2022 3:01PM EST [facility] XR Foot - left AP and Latera l and obliqueOrdered By: [facility] Provider on 07-05-2022 [facility] XR Foot - left AP and Latera l and obliqueon 07-04-2022 Radiology Study observation (narrative) [facility] SURGICAL PATHOLOGYon Case Report Surgical Pathology R eport Case: [id number] Authorizing Provider: Gwen Blakely MD Collected: 05/27/2022 09:04 AM Ordering Location: Ambulatory Surgery Received: 05/27/2022 04:43 PM Pathologist: Alex Akbar MD Specimen: COLON BIOPSY, Random colon bx'S [facility] Diagnosis Comment Patchy neutrophilic inflammation is seen involving epithelium and lamina propria. The differential diagnosis for this pattern of neutrophilic inflammation includes infection, medication related injury (including NSAID), and bowel preparation artifact. No evidence of lymphocytic or collagenous colitis is seen. [facility] FINAL DIAGNOSIS A. Colon, random, bi opsy: -Patchy active colitis, see comment. -Melanosis coli. [facility] Gross Description A. COLON BIOPSY Received in formalin are multiple pieces of fierro, soft tissue aggregating to 1.6 x 0.5 x 0.2 cm. Totally submitted in two cassettes. Gross examination performed at [facility], [facility] [place] [address] JT 05/27/2022 10:26 PM [facility] Performing Lab Diagnostic interpret ation performed at [facility], [address] [place] [address] CLIA# [id number] Waiter/Waitress Third Class: Rudolph Delcid M.D. [facility] COLONOSCOPY DIAGNOSTICon [facility] Absolute lymphocyte counton 03-11-2022 Lymphocytes Auto (Unsp spec) [#/Vol] 3.26 10*3/uL 0.83-4.51 [facility] Work Phone: Basophil percentageon 2021 Basophils/100 WBC (Bld) 0.4 % 0-1 [facility] Work Phone: Bilirubin [Mass/Vol] 0.40 mg/dL 0.20-1.00 [facility] Work Phone: Comment on above: For patients on eltr ombopag therapy, use of Dimension [place] TBIL is not recommended. Chloride [Moles/Vol] 106 mmol/L 98-107 [facility] Work Phone: Eosinophils/100 WBC (Bld) 2.3 % 0-5 [facility] Work Phone: [phone] Glucose [Mass/Vol] 93 mg/dL 74-106 [facility] Work Phone: [phone] Neutrophils (Bld) [#/Vol] 5.1 10*3/uL 2.0-7.7 [facility] Work Phone: [phone] Neutrophils/100 WBC (Bld) 55.1 % 47-70 [facility] Work Phone: [phone] Potassium [Moles/Vol] 4.1 mmol/L 3.5-5.1 [facility] Work Phone: Comment on above: Slight Hemolysis, Re sult may be falsely increased. Protein [Mass/Vol] 7.3 g/dL 6.4-8.2 [facility] Work Phone: [phone] Sodium [Moles/Vol] 141 mmol/L 136-145 [facility] Work Phone: [phone] WBC (Bld) [#/Vol] 9.2 10*3/uL 4.4-11.0 [facility] Work Phone: Blood erythrocytes count (nu mber/volume)on 03-11-2022 RBC (Bld) [#/Vol] 4.22 10*6/uL 4.2-5.4 [facility] Work Phone: Blood hemoglobin measurement (mass/volume)on 03-11-2022 Hemoglobin (Bld) [Mass/Vol] 12.3 g/dL 12.0-15.0 [facility] Work Phone: Blood lymphocytes/100 leukoc yteson 03-11-2022 Lymphocytes/100 WBC (Bld) 35.3 % 19-41 [facility] Work Phone: Blood monocytes/100 leukocyt eson 03-11-2022 Monocytes/100 WBC (Bld) 6.4 % 0-10 [facility] Work Phone: Blood platelet mean volumeon 03-11-2022 Platelet mean volume (Bld) [Entitic vol] 11.4 fL 6.2-12.0 [facility] Work Phone: Determination of erythrocyte mean corpuscular volume (MCV)on 03-11-2022 MCV (RBC) [Entitic vol] 91.9 fL 81-99 [facility] Work Phone: Hematocrit Auto (Bld) [Volum e fraction]on 03-11-2022 Hematocrit (Bld) [Volume fraction] 38.8 % 37-47 [facility] Work Phone: Laboratory - Chemistry and C hemistry - challengeon 03-11-2022 ALP [Catalytic activity/Vol] 62 U/L 45-117 [facility] Work Phone: ALT [Catalytic activity/Vol] 27 U/L 13-56 [facility] Work Phone: [phone] CO2 [Moles/Vol] 26.0 mmol/L 21.0-32.0 [facility] Work Phone: Globulin (S) [Mass/Vol] 3.7 g/dL 2.2-4.2 [facility] Work Phone: Urea nitrogen/Creatinine [Mass ratio] 16.7 mg/mg 10-20 [facility] Work Phone: Laboratory - Hematology and Cell countson 03-11-2022 Erythrocyte distribution width (RBC) [Entitic vol] 50.2 fL 35.1-43.9 [facility] Work Phone: Erythrocyte distribution width (RBC) [Ratio] 14.6 % 11.6-14.6 [facility] Work Phone: Immature granulocytes/100 WBC (Bld) 0.500 % 0.0-0.9 [facility] Work Phone: Comment on above: IG% - Immature Granu locytes (promyelocytes, myelocytes and metamyelocytes) > 1% indicates that a LEFT SHIFT is Present. MCH (RBC) [Entitic mass] 29.1 pg 27.0-32.0 [facility] Work Phone: Nucleated RBC/100 WBC (Bld) [Ratio] 0 % 0-5 [facility] Work Phone: MCHC Auto (RBC) [Mass/Vol]on 03-11-2022 MCHC (RBC) [Mass/Vol] 31.7 g/dL 32-36 [facility] Work Phone: No Panel Informationon 03-11 Estimated GFR (MDRD) Amer 66 mL/min >60 [facility] Work Phone: Comment on above: GFR Calc Estimated GFR (MDRD) Non-Af Amer 54 mL/min >60 [facility] Work Phone: Comment on above: Non- GFR Calc Platelets bldon 03-11-2022 Platelets (Bld) [#/Vol] 285 10*3/uL 150-450 [facility] Work Phone: Serum or plasma albumin francisco urement (mass/volume)on 03-11-2022 Albumin [Mass/Vol] 3.6 g/dL 3.2-5.0 [facility] Work Phone: Serum or plasma albumin/glob ulin mass ratioon 03-11-2022 Albumin/Globulin [Mass ratio] 1.0 {ratio} 0.9-2.4 [facility] Work Phone: Serum or plasma calcium francisco urement (mass/volume)on 03-11-2022 Calcium [Mass/Vol] 9.5 mg/dL 8.5-10.1 [facility] Work Phone: Serum or plasma creatinine m easurement (mass/volume)on 03-11-2022 Creatinine [Mass/Vol] 1.08 mg/dL 0.55-1.02 [facility] Work Phone: Comment on above: The validity of the calculated GFR & GFRAA in patients over 70 years has not been determined. Clinical correlation is essential. Serum or plasma urea nitroge n measurement (mass/volume)on 03-11-2022 Urea nitrogen [Mass/Vol] 18 mg/dL 7-18 [facility] Work Phone: Thin prep Papanicolaou smear with manual screeningon 03-11-2022 Thin prep Papanicolaou smear with manual screening 21 U/L 15-37 [facility] Work Phone: Comment on above: Slight Hemolysis, Re sult may be falsely increased. Thin prep Papanicolaou smear with manual screening 9 5-15 [facility] Work Phone: XR Foot - left AP and Latera l and obliqueon 12-20-2021 IMPRESSION: No acute fracture. 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 Remote healed fracture of the distal shaft of the left fifth metatarsal. Digital Marketing Manager: PSCB Transcribe Date/Time: Dec 20 2021 11:03A Dictated by : CAITLIN PHELPS MD This examination was interpreted and the report reviewed and electronically signed by: CAITLIN PHELPS MD on Dec 20 2021 11:17AM EST [email or web address] E_DIVISION OF RADIOLOGY * * *Final Report* * * DATE OF EXAM: Dec 17 2021 3:49PM WOX 5336 - XR FOOT 3V AP/LAT/OBL LT / PROCEDURE REASON: Foot pain, left * * * * Physician Interpretation * * * * EXAMINATION: XR FOOT 3V AP/LAT/OBL LT CLINICAL HISTORY: Left foot pain Technique: XR FOOT 3V AP/LAT/OBL LT -- LEFT with 3 views on 3 images Comparison: None RESULT: No acute fracture or dislocation. 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 Remote healed fracture of the distal shaft of the left fifth metatarsal. Midfoot degenerative disease. Narrowing of the left first metatarsophalangeal joint. Plantar calcaneal spur. [email or web address] E_DIVISION OF RADIOLOGY Provider, [facility] - 12/20/2021 * * *Final Report* * * DATE OF EXAM: Dec 17 2021 3:49PM WOX 5336 - XR FOOT 3V AP/LAT/OBL LT / PROCEDURE REASON: Foot pain, left * * * * Physician Interpretation * * * * EXAMINATION: XR FOOT 3V AP/LAT/OBL LT CLINICAL HISTORY: Left foot pain Technique: XR FOOT 3V AP/LAT/OBL LT -- LEFT with 3 views on 3 images Comparison: None RESULT: No acute fracture or dislocation. 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 Remote healed fracture of the distal shaft of the left fifth metatarsal. Midfoot degenerative disease. Narrowing of the left first metatarsophalangeal joint. Plantar calcaneal spur. IMPRESSION IMPRESSION: No acute fracture. 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 Remote healed fracture of the distal shaft of the left fifth metatarsal. Digital Marketing Manager: CHERELLE Transcribe Date/Time: Dec 20 2021 11:03A Dictated by : CAITLIN PHELPS MD This examination was interpreted and the report reviewed and electronically signed by: CAITLIN PHELPS MD on Dec 20 2021 11:17AM EST [facility] No Panel Informationon 12-17 Radiology Study observation (narrative) [facility] XR Chest PA and Lateralon IMPRESSION: No acute radiographic abnormality. Digital Marketing Manager: CHERELLE Transcribe Date/Time: Dec 17 2021 4:29P Dictated by : BALTA MARQUEZ MD This examination was interpreted and the report reviewed and electronically signed by: BALTA MARQUEZ MD on Dec 17 2021 4:30PM EST [email or web address] E_DIVISION OF RADIOLOGY * * *Final Report* * * DATE OF EXAM: Dec 17 2021 3:49PM WOX 5291 - XR CHEST 2V FRONTAL/LAT / PROCEDURE REASON: Chest pain, atypical * * * * Physician Interpretation * * * * EXAMINATION: CHEST RADIOGRAPH (2 VIEW FRONTAL & LATERAL) CLINICAL HISTORY: Chest pain, atypical MQ: [id number] EXAM DATE/TIME: 12/17/2021 3:49 PM COMPARISON: No relevant prior studies available. RESULT: Lines, tubes, and devices: None. Lungs and pleura: There appears be a focal calcification overlying the right lower lung. No consolidation. No lung mass. No pleural effusion. No pneumothorax. Cardiomediastinal silhouette: The cardiac silhouette is within normal limits, with tortuosity of the thoracic aorta. Bones and soft tissues: There are degenerative changes in the spine. [id number] E_DIVISION OF RADIOLOGY Provider, [facility] - 12/17/2021 * * *Final Report* * * DATE OF EXAM: Dec 17 2021 3:49PM WOX [id number] - XR CHEST 2V FRONTAL/LAT / PROCEDURE REASON: Chest pain, atypical * * * * Physician Interpretation * * * * EXAMINATION: CHEST RADIOGRAPH (2 VIEW FRONTAL & LATERAL) CLINICAL HISTORY: Chest pain, atypical MQ: [id number] EXAM DATE/TIME: 12/17/2021 3:49 PM COMPARISON: No relevant prior studies available. RESULT: Lines, tubes, and devices: None. Lungs and pleura: There appears be a focal calcification overlying the right lower lung. No consolidation. No lung mass. No pleural effusion. No pneumothorax. Cardiomediastinal silhouette: The cardiac silhouette is within normal limits, with tortuosity of the thoracic aorta. Bones and soft tissues: There are degenerative changes in the spine. IMPRESSION IMPRESSION: No acute radiographic abnormality. Digital Marketing Manager: [facility] Transcribe Date/Time: Dec 17 2021 4:29P Dictated by : BALTA MARQUEZ MD This examination was interpreted and the report reviewed and electronically signed by: BALTA MARQUEZ MD on Dec 17 2021 4:30PM EST [facility] XR Chest PA and LateralOrder ed By: [facility] Provider on 12-17-2021 [facility] Absolute lymphocyte counton 12-10-2021 Lymphocytes Auto (Unsp spec) [#/Vol] 3.94 10*3/uL 0.83-4.51 [facility] Work Phone: Basophil percentageon 2021 Basophils/100 WBC (Bld) 0.7 % 0-1 [facility] Work Phone: Bilirubin [Mass/Vol] 0.30 mg/dL 0.20-1.00 [facility] Work Phone: Comment on above: For patients on eltr ombopag therapy, use of Dimension [place] TBIL is not recommended. Chloride [Moles/Vol] 106 mmol/L 98-107 [facility] Work Phone: Eosinophils/100 WBC (Bld) 3.0 % 0-5 [facility] Work Phone: Glucose [Mass/Vol] 101 mg/dL 74-106 [facility] Work Phone: Comment on above: Fasting Glucose resu lt from 100 to 125 mg/dL suggests IMPAIRED HOMEOSTASIS per A.D.A. criteria. Neutrophils (Bld) [#/Vol] 4.5 10*3/uL 2.0-7.7 [facility] Work Phone: Neutrophils/100 WBC (Bld) 46.9 % 47-70 [facility] Work Phone: Potassium [Moles/Vol] 3.9 mmol/L 3.5-5.1 [facility] Work Phone: Protein [Mass/Vol] 7.4 g/dL 6.4-8.2 [facility] Work Phone: Sodium [Moles/Vol] 137 mmol/L 136-145 [facility] Work Phone: WBC (Bld) [#/Vol] 9.7 10*3/uL 4.4-11.0 [facility] Work Phone: Blood erythrocytes count (nu mber/volume)on 12-10-2021 RBC (Bld) [#/Vol] 4.63 10*6/uL 4.2-5.4 [facility] Work Phone: Blood hemoglobin measurement (mass/volume)on 12-10-2021 Hemoglobin (Bld) [Mass/Vol] 13.0 g/dL 12.0-15.0 [facility] Work Phone: Blood lymphocytes/100 leukoc yteson 12-10-2021 Lymphocytes/100 WBC (Bld) 40.6 % 19-41 [facility] Work Phone: Blood monocytes/100 leukocyt eson 12-10-2021 Monocytes/100 WBC (Bld) 7.7 % 0-10 [facility] Work Phone: Blood platelet mean volumeon 12-10-2021 Platelet mean volume (Bld) [Entitic vol] 10.7 fL 6.2-12.0 [facility] Work Phone: Determination of erythrocyte mean corpuscular volume (MCV)on 12-10-2021 MCV (RBC) [Entitic vol] 89.0 fL 81-99 [facility] Work Phone: Hematocrit Auto (Bld) [Volum e fraction]on 12-10-2021 Hematocrit (Bld) [Volume fraction] 41.2 % 37-47 [facility] Work Phone: Laboratory - Chemistry and C hemistry - challengeon 12-10-2021 ALP [Catalytic activity/Vol] 81 U/L 45-117 [facility] Work Phone: ALT [Catalytic activity/Vol] 32 U/L 13-56 [facility] Work Phone: CO2 [Moles/Vol] 24.0 mmol/L 21.0-32.0 [facility] Work Phone: Globulin (S) [Mass/Vol] 3.7 g/dL 2.2-4.2 [facility] Work Phone: Urea nitrogen/Creatinine [Mass ratio] 13.7 mg/mg 10-20 [facility] Work Phone: Laboratory - Hematology and Cell countson 12-10-2021 Erythrocyte distribution width (RBC) [Entitic vol] 44.1 fL 35.1-43.9 [facility] Work Phone: Erythrocyte distribution width (RBC) [Ratio] 13.5 % 11.6-14.6 [facility] Work Phone: Immature granulocytes/100 WBC (Bld) 1.100 % 0.0-0.9 [facility] Work Phone: Comment on above: IG% - Immature Granu locytes (promyelocytes, myelocytes and metamyelocytes) > 1% indicates that a LEFT SHIFT is Present. MCH (RBC) [Entitic mass] 28.1 pg 27.0-32.0 [facility] Work Phone: Nucleated RBC/100 WBC (Bld) [Ratio] 0 % 0-5 [facility] Work Phone: MCHC Auto (RBC) [Mass/Vol]on 12-10-2021 MCHC (RBC) [Mass/Vol] 31.6 g/dL 32-36 [facility] Work Phone: No Panel Informationon 12-10 Estimated GFR (MDRD) Amer 70 mL/min >60 [facility] Work Phone: Comment on above: GFR Calc Estimated GFR (MDRD) Non-Af Amer 58 mL/min >60 [facility] Work Phone: Comment on above: Non- GFR Calc Platelets bldon 12-10-2021 Platelets (Bld) [#/Vol] 338 10*3/uL 150-450 [facility] Work Phone: Serum or plasma albumin francisco urement (mass/volume)on 12-10-2021 Albumin [Mass/Vol] 3.7 g/dL 3.2-5.0 [facility] Work Phone: Serum or plasma albumin/glob ulin mass ratioon 12-10-2021 Albumin/Globulin [Mass ratio] 1.0 {ratio} 0.9-2.4 [facility] Work Phone: Serum or plasma calcium francisco urement (mass/volume)on 12-10-2021 Calcium [Mass/Vol] 8.9 mg/dL 8.5-10.1 [facility] Work Phone: Serum or plasma creatinine m easurement (mass/volume)on 12-10-2021 Creatinine [Mass/Vol] 1.02 mg/dL 0.55-1.02 [facility] Work Phone: Comment on above: The validity of the calculated GFR & GFRAA in patients over 70 years has not been determined. Clinical correlation is essential. Serum or plasma urea nitroge n measurement (mass/volume)on 12-10-2021 Urea nitrogen [Mass/Vol] 14 mg/dL 7-18 [facility] Work Phone: Thin prep Papanicolaou smear with manual screeningon 12-10-2021 Thin prep Papanicolaou smear with manual screening 25 U/L 15- [facility] Work Phone: Thin prep Papanicolaou smear with manual screening 7 - [facility] Work Phone: Absolute lymphocyte counton 09-17-2021 Lymphocytes Auto (Unsp spec) [#/Vol] 3.55 10*3/uL 0.83-4.51 [facility] Work Phone: Basophil percentageon 2021 Basophils/100 WBC (Bld) 0.4 % 0-1 [facility] Work Phone: Bilirubin [Mass/Vol] 0.30 mg/dL 0.20-1.00 [facility] Work Phone: Comment on above: For patients on eltr ombopag therapy, use of Dimension [place] TBIL is not recommended. Chloride [Moles/Vol] 104 mmol/L 98-107 [facility] Work Phone: Eosinophils/100 WBC (Bld) 0.5 % 0-5 [facility] Work Phone: Glucose [Mass/Vol] 99 mg/dL 74-106 [facility] Work Phone: Neutrophils (Bld) [#/Vol] 7.7 10*3/uL 2.0-7.7 [facility] Work Phone: Neutrophils/100 WBC (Bld) 62.6 % 47-70 [facility] Work Phone: Potassium [Moles/Vol] 4.4 mmol/L 3.5-5.1 [facility] Work Phone: Comment on above: Slight Hemolysis, Re sult may be falsely increased. Protein [Mass/Vol] 6.8 g/dL 6.4-8.2 [facility] Work Phone: Sodium [Moles/Vol] 137 mmol/L 136-145 [facility] Work Phone: WBC (Bld) [#/Vol] 12.3 10*3/uL 4.4-11.0 [facility] Work Phone: Blood erythrocytes count (nu mber/volume)on 09-17-2021 RBC (Bld) [#/Vol] 4.33 10*6/uL 4.2-5.4 [facility] Work Phone: Blood hemoglobin measurement (mass/volume)on 09-17-2021 Hemoglobin (Bld) [Mass/Vol] 12.3 g/dL 12.0-15.0 [facility] Work Phone: Blood lymphocytes/100 leukoc yteson 09-17-2021 Lymphocytes/100 WBC (Bld) 28.9 % 19-41 [facility] Work Phone: Blood monocytes/100 leukocyt eson 09-17-2021 Monocytes/100 WBC (Bld) 6.8 % 0-10 [facility] Work Phone: Blood platelet mean volumeon 09-17-2021 Platelet mean volume (Bld) [Entitic vol] 12.0 fL 6.2-12.0 [facility] Work Phone: Determination of erythrocyte mean corpuscular volume (MCV)on 09-17-2021 MCV (RBC) [Entitic vol] 88.2 fL 81-99 [facility] Work Phone: Hematocrit Auto (Bld) [Volum e fraction]on 09-17-2021 Hematocrit (Bld) [Volume fraction] 38.2 % 37-47 [facility] Work Phone: Laboratory - Chemistry and C hemistry - challengeon 09-17-2021 ALP [Catalytic activity/Vol] 83 U/L 45-117 [facility] Work Phone: ALT [Catalytic activity/Vol] 26 U/L 13-56 [facility] Work Phone: [phone] CO2 [Moles/Vol] 25.0 mmol/L 21.0-32.0 [facility] Work Phone: Globulin (S) [Mass/Vol] 3.1 g/dL 2.2-4.2 [facility] Work Phone: Urea nitrogen/Creatinine [Mass ratio] 22.2 mg/mg 10-20 [facility] Work Phone: Laboratory - Hematology and Cell countson 09-17-2021 Erythrocyte distribution width (RBC) [Entitic vol] 44.9 fL 35.1-43.9 [facility] Work Phone: Erythrocyte distribution width (RBC) [Ratio] 13.9 % 11.6-14.6 [facility] Work Phone: Immature granulocytes/100 WBC (Bld) 0.800 % 0.0-0.9 [facility] Work Phone: Comment on above: IG% - Immature Granu locytes (promyelocytes, myelocytes and metamyelocytes) > 1% indicates that a LEFT SHIFT is Present. MCH (RBC) [Entitic mass] 28.4 pg 27.0-32.0 [facility] Work Phone: Nucleated RBC/100 WBC (Bld) [Ratio] 0 % 0-5 [facility] Work Phone: MCHC Auto (RBC) [Mass/Vol]on 09-17-2021 MCHC (RBC) [Mass/Vol] 32.2 g/dL 32-36 [facility] Work Phone: No Panel Informationon 09-17 Estimated GFR (MDRD) Amer 91 mL/min >60 [facility] Work Phone: Comment on above: GFR Calc Estimated GFR (MDRD) Non-Af Amer 76 mL/min >60 [facility] Work Phone: Comment on above: Non- GFR Calc Platelets bldon 09-17-2021 Platelets (Bld) [#/Vol] 275 10*3/uL 150-450 [facility] Work Phone: Serum or plasma albumin francisco urement (mass/volume)on 09-17-2021 Albumin [Mass/Vol] 3.7 g/dL 3.2-5.0 [facility] Work Phone: Serum or plasma albumin/glob ulin mass ratioon 09-17-2021 Albumin/Globulin [Mass ratio] 1.2 {ratio} 0.9-2.4 [facility] Work Phone: Serum or plasma calcium francisco urement (mass/volume)on 09-17-2021 Calcium [Mass/Vol] 8.9 mg/dL 8.5-10.1 [facility] Work Phone: Serum or plasma creatinine m easurement (mass/volume)on 09-17-2021 Creatinine [Mass/Vol] 0.81 mg/dL 0.55-1.02 [facility] Work Phone: Comment on above: The validity of the calculated GFR & GFRAA in patients over 70 years has not been determined. Clinical correlation is essential. Serum or plasma urea nitroge n measurement (mass/volume)on 09-17-2021 Urea nitrogen [Mass/Vol] 18 mg/dL 7-18 [facility] Work Phone: Thin prep Papanicolaou smear with manual screeningon 09-17-2021 Thin prep Papanicolaou smear with manual screening 20 U/L 15-37 [facility] Work Phone: Comment on above: Slight Hemolysis, Re sult may be falsely increased. Thin prep Papanicolaou smear with manual screening 8 5-15 [facility] Work Phone: Office Visit: Spine Visiton 01-17-2017 Dietary management education, guidance, and counseling (procedure) yes Invalid Interpretation Code [facility] Work Phone: [phone] Documentation of current medications (procedure) Done Invalid Interpretation Code [facility] Work Phone: [phone] Tobacco use CPHS Never smoker Invalid Interpretation Code [facility] Work Phone: [phone] Office Visit: Spine Visiton 09-26-2016 Protein [facility] conc [facility] Work Phone: [phone] Tobacco smoking status NHIS Never smoker [facility] Work Phone: [phone] Microbiology: MRSA+SAID SCRN on 04-16-2014 GE use only - for [employer] import when terms are not otherwise specified Negative Normal [facility] Work Phone: [phone] MRSA+SAID SCRN Negative Normal [facility] Work Phone: [phone] Lab Report: BMPon 04-15-2014 Anion gap 4 mmol/L Low 5-15 [facility] Work Phone: [phone] Anion gap molar conc 4 mmol/L Low -15 [facility] Work Phone: [phone] Calcium mass conc 8.9 mg/dL Normal 8.5-10.1 [facility] Work Phone: [phone] Chloride molar conc 104 mmol/L Normal 98-107 [facility] Work Phone: [phone] CO2 31.0 mmol/L Normal 21.0-32.0 [facility] Work Phone: [phone] CO2 ppres (BldV) 31.0 mmol/L Normal 21.0-32.0 [facility] Work Phone: [phone] Creatinine mass conc 1.0 mg/dL Normal 0.6-1.0 [facility] Work Phone: [phone] eGFR (non-black) 74 mL/min/{1.73_m2} Normal >60 [facility] Work Phone: [phone] GFR/1.73 sq M predicted among non-blacks MDRD vol rate/area (S/P/Bld) 61 mL/min/{1.73_m2} Normal >60 [facility] Work Phone: [phone] GFRAA 74 mL/min Normal >60 [facility] Work Phone: [phone] Glucose 82 mg/dL Normal 70-110 [facility] Work Phone: [phone] Glucose mass conc 82 mg/dL Normal 70-110 [facility] Work Phone: [phone] Potassium molar conc 3.5 mmol/L Normal 3.5-5.1 [facility] Work Phone: [phone] Sodium molar conc 139 mmol/L Normal 136-145 [facility] Work Phone: [phone] Urea nitrogen mass conc 12 mg/dL Normal 7-18 [facility] Work Phone: [phone] Urea nitrogen/Creatinine mass ratio 12.0 RATIO Normal 10-20 [facility] Work Phone: [phone] Lab Report: CBCDon 4 Absolute Neutrophil count 4.6 X10 3/UL Normal 2.0-7.7 [facility] Work Phone: [phone] ANC 4.6 X10 3/UL Normal 2.0-7.7 [facility] Work Phone: [phone] Basophils/100 leukocytes 0.5 % Normal 0-1 [facility] Work Phone: [phone] Basophils/100 WBC (Bld) 0.5 % Normal 0-1 [facility] Work Phone: 1() 0 Eosinophils/100 leukocytes 3.8 % Normal 0-5 [facility] Work Phone: 1() 0 Eosinophils/100 WBC (Bld) 3.8 % Normal 0-5 [facility] Work Phone: 1() 0 Erythrocytes (RBC) 4.62 10*6/uL Normal 4.2-5.4 [facility] Work Phone: 1() 0 Hematocrit (HCT) 42.9 % Normal 37-47 [facility] Work Phone: 1() 0 Hematocrit Volume Fraction (Bld) 42.9 % Normal 37-47 [facility] Work Phone: () [phone] Hemoglobin mass conc (Bld) 14.1 g/dL Normal 12.0-15.0 [facility] Work Phone: () [phone] Lymphocytes/100 leukocytes 39.8 % Normal 19-41 [facility] Work Phone: () [phone] Lymphocytes/100 WBC (Bld) 39.8 % Normal 19-41 [facility] Work Phone: 1() 0 MCH 30.5 pg Normal 27.0-32.0 [facility] Work Phone: () 0 MCH Entitic mass (RBC) 30.5 pg Normal 27.0-32.0 [facility] Work Phone: 1() 0 MCHC 32.9 G/GL Normal 32-36 [facility] Work Phone: 1() 0 MCHC mass conc (RBC) 32.9 G/GL Normal 32-36 [facility] Work Phone: 1() 0 MCV 92.9 fL Normal 81-99 [facility] Work Phone: [phone] MCV Entitic volume (RBC) 92.9 fL Normal 81-99 [facility] Work Phone: [phone] Monocytes/100 leukocytes 7.6 % Normal 0-10 [facility] Work Phone: [phone] Monocytes/100 WBC (Bld) 7.6 % Normal 0-10 [facility] Work Phone: [phone] Neutrophils/100 leukocytes 47.9 % Normal 47-70 [facility] Work Phone: [phone] Neutrophils/100 WBC (Bld) 47.9 % Normal 47-70 [facility] Work Phone: [phone] Platelet mean volume Entitic volume (Bld) 10.3 fL Normal 6.2-12.0 [facility] Work Phone: [phone] Platelets 254 10*3/mm3 Normal 150-450 [facility] Work Phone: [phone] Platelets #/vol (Bld) 254 10*3/mm3 Normal 150-450 [facility] Work Phone: [phone] PMV by Brendon 10.3 fL Normal 6.2-12.0 [facility] Work Phone: [phone] RBC #/vol (Bld) 4.62 10*6/uL Normal 4.2-5.4 [facility] Work Phone: [phone] WBC #/vol (Bld) 9.6 10*3/uL Normal 4.4-11.0 [facility] Work Phone: [phone] WBC (Leukocytes) 9.6 10*3/uL Normal 4.4-11.0 [facility] Work Phone: [phone] Lab Report: CMPon 04-07-2014 Albumin mass conc 3.6 g/dL Normal 3.4-5.0 [facility] Work Phone: [phone] Albumin/Globulin mass ratio 1 {ratio} Normal 0.9-2.4 [facility] Work Phone: [phone] ALT enzyme act/vol 25 U/L Normal 12-78 [facility] Work Phone: [phone] AST enzyme act/vol 15 U/L Normal 15-[address] [facility] [address] Work Phone: [phone] Bilirubin mass conc 0.30 mg/dL Normal 0.00-4.00 [facility] Work Phone: [phone] Globulin 3.7 g/dL Normal 2.7-4.2 [facility] Work Phone: [phone] Globulin mass conc (S) 3.7 g/dL Normal 2.7-4.2 [facility] Work Phone: [phone] Protein mass conc 7.3 g/dL Normal 6.4-8.2 [facility] Work Phone: [phone] Vital Signs Date Time Vital Sign Value Performing Clinician Facility 11-25-2024 13:35-0400 Body height 170.2 cm Sydni Waggoner MD Work Phone: [facility] 11-25-2024 13:35-0400 Body mass index (BMI) [Ratio] 31.48 kg/m2 Sydni Waggoner MD Work Phone: [facility] 11-25-2024 13:35-0400 Body weight 91.17 kg Sydni Waggoner MD Work Phone: [facility] 11-25-2024 13:35-0400 Respiratory rate 18 /min Sydni Waggoner MD Work Phone: [facility] 11-21-2024 13:25-0400 Body height 165.[address] Mikayla Strange MD Work Phone: [facility] 11-21-2024 13:25-0400 Body mass index (BMI) [Ratio] 33.3 kg/m2 Dr. Mikayla Strange MD Work Phone: [facility] 11-21-2024 13:25-0400 Body weight 90.[address] Mikayla Strange MD Work Phone: [facility] 11-11-2024 13:24-0400 Body height 165.[address] Mikayla Strange MD Work Phone: [facility] 11-11-2024 13:24-0400 Body mass index (BMI) [Ratio] 33.3 kg/m2 Dr. Mikayla Strange MD Work Phone: [facility] 11-11-2024 13:24-0400 Body weight 90.[address] Mikayla Strange MD Work Phone: [facility] 10-22-2024 13:29-0400 Diastolic blood pressure 62 mm[Hg] Sayda Haagen [employer]PARTMENT CHAIR Work Phone: [facility] 10-22-2024 13:29-0400 Heart rate 71 /min Sayda Haagen [employer] SCIENCES DEPARTMENT CHAIR Work Phone: [facility] 10-22-2024 13:29-0400 Respiratory rate 16 /min Sayda Haagen [employer] SCIENCES DEPARTMENT CHAIR Work Phone: [facility] 10-22-2024 13:29-0400 SaO2% (BldA) [Mass fraction] 99 % Sayda Haraisa [employer] SCIENCES DEPARTMENT CHAIR Work Phone: [facility] 10-22-2024 13:29-0400 Systolic blood pressure 108 mm[Hg] Sayda Carr [employer] SCIENCES DEPARTMENT CHAIR Work Phone: [facility] 10-21-2024 14:18-0400 Body height 170.2 cm Ga Blackburn PA-C Work Phone: [facility] 10-21-2024 14:18-0400 Body mass index (BMI) [Ratio] 31.64 kg/m2 Ga Blackburn PA-C Work Phone: [facility] 10-21-2024 14:18-0400 Body weight 91.63 kg Ga Blackburn PA-C Work Phone: [facility] 10-21-2024 14:18-0400 Respiratory rate 20 /min Ga Blackburn PA-C Work Phone: [facility] 08-14-2024 15:06-0500 Body mass index (BMI) [Ratio] 31.64 kg/m2 Mikayla Strange MD Work Phone: [facility] 08-14-2024 15:06-0500 Body temperature 98.91 [degF] Mikayla Strange MD Work Phone: [facility] 08-14-2024 15:06-0500 Body weight 91.63 kg Mikayla Strange MD Work Phone: [facility] 08-14-2024 15:06-0500 Diastolic blood pressure 62 mm[Hg] Mikayla Strange MD Work Phone: [facility] 08-14-2024 15:06-0500 Heart rate 69 /min Mikayla Strange MD Work Phone: [facility] 08-14-2024 15:06-0500 SaO2% (BldA) [Mass fraction] 99 % Mikayla Strange MD Work Phone: [facility] [facility] 08-14-2024 15:06-0500 Systolic blood pressure 122 mm[Hg] Mikayla Strange MD Work Phone: [facility] 07-22-2024 14:52-0500 Body height 170.2 cm Sydni Waggoner MD Work Phone: [facility] 07-22-2024 14:52-0500 Body mass index (BMI) [Ratio] 31.32 kg/m2 Sydni Waggoner MD Work Phone: [facility] 07-22-2024 14:52-0500 Body weight 90.72 kg Sydni Waggoner MD Work Phone: [facility] 07-22-2024 14:52-0500 Respiratory rate 18 /min Sydni Waggoner MD Work Phone: [facility] 12-30-2024 18:00-0500 Heart rate 81 /min Dr. Mikayla Strange MD Work Phone: 9(077)309-437260 [place] [address] 06-24-2024 18:00-0500 Respiratory rate 18 /min Dr. Mikayla Strange MD Work Phone: 3(121)202-496021 [place] [address] 06-24-2024 18:00-0500 SaO2% (BldA) [Mass fraction] 98 % Dr. Mikayla Strange MD Work Phone: 2(524)547-446360 [place] [address] 06-24-2024 14:24-0500 Body temperature 98.8 [degF] Dr. Mikayla Strange MD Work Phone: 2(357)629-379721 [place] [address] 06-24-2024 14:24-0500 Diastolic blood pressure 63 mm[Hg] Dr. Mikayla Strange MD Work Phone: 8(412)467-385121 [place] [address] 06-24-2024 14:24-0500 Systolic blood pressure 127 mm[Hg] Dr. Mikayla Strange MD Work Phone: 1(337)261-892721 [place] [address] 06-24-2024 13:20-0500 Body height 165.[address] Mikayla Strange MD Work Phone: 9(417)697-681121 [place] [address] 06-24-2024 13:20-0500 Body mass index (BMI) [Ratio] 34 kg/m2 Dr. Mikayla Strange MD Work Phone: 3(147)009-288821 [place] [address] 06-24-2024 13:20-0500 Body weight 92.[address] Mikayla Strange MD Work Phone: 8(221)921-582060 [place] [address] 04-09-2024 14:57-0400 Body mass index (BMI) [Ratio] 33.78 kg/m2 Kd Stockton PA-C Work Phone: [facility] 04-09-2024 14:57-0400 Body temperature 98.01 [degF] Kd Stockton PA-C Work Phone: [facility] 04-09-2024 14:57-0400 Body weight 92.08 kg Kd Stockton PA-C Work Phone: [facility] 04-09-2024 14:57-0400 Diastolic blood pressure 75 mm[Hg] Kd Stockton PA-C Work Phone: [facility] 04-09-2024 14:57-0400 Heart rate 66 /min Kd Stockton PA-C Work Phone: [facility] 04-09-2024 14:57-0400 Respiratory rate 16 /min Kd Stockton PA-C Work Phone: [facility] 04-09-2024 14:57-0400 SaO2% (BldA) [Mass fraction] 100 % Kd Stockton PA-C Work Phone: [facility] Comment on above: RA 04-09-2024 14:57-0400 Systolic blood pressure 122 mm[Hg] Kd Stockton PA-C Work Phone: [facility] 02-20-2024 15:56-0400 Body height 165.1 cm Mikayla Strange MD Work Phone: [facility] 02-20-2024 15:56-0400 Body mass index (BMI) [Ratio] 33.95 kg/m2 Mikayla Strange MD Work Phone: [facility] 02-20-2024 15:56-0400 Body weight 92.53 kg Mikayla Strange MD Work Phone: [facility] 02-20-2024 15:56-0400 Diastolic blood pressure 60 mm[Hg] Mikayla Strange MD Work Phone: [facility] 02-20-2024 15:56-0400 Heart rate 66 /min Mikayla Strange MD Work Phone: [facility] 02-20-2024 15:56-0400 SaO2% (BldA) [Mass fraction] 99 % Mikayla Strange MD Work Phone: [facility] 02-20-2024 15:56-0400 Systolic blood pressure 124 mm[Hg] Mikayla Strange MD Work Phone: [facility] 01-05-2024 11:19-0400 Body height 165.1 cm Mikayla Strange MD Work Phone: [facility] 01-05-2024 11:19-0400 Body mass index (BMI) [Ratio] 33.98 kg/m2 Mikayla Strange MD Work Phone: [facility] 01-05-2024 11:19-0400 Body weight 92.63 kg Mikayla Strange MD Work Phone: [facility] 01-05-2024 11:19-0400 Diastolic blood pressure 62 mm[Hg] Mikayla Strange MD Work Phone: [facility] 01-05-2024 11:19-0400 Heart rate 68 /min Mikayla Strange MD Work Phone: [facility] 01-05-2024 11:19-0400 SaO2% (BldA) [Mass fraction] 99 % Mikayla Strange MD Work Phone: [facility] 01-05-2024 11:19-0400 Systolic blood pressure 138 mm[Hg] Mikayla Strange MD Work Phone: [facility] 11-21-2023 13:36-0400 Body height 165.1 cm Mikayla Strange MD Work Phone: [facility] 11-21-2023 13:36-0400 Body mass index (BMI) [Ratio] 34.61 kg/m2 Mikayla Strange MD Work Phone: [facility] 11-21-2023 13:36-0400 Body weight 94.35 kg Mikayla Strange MD Work Phone: [facility] 11-21-2023 13:36-0400 Diastolic blood pressure 68 mm[Hg] Mikayla Strange MD Work Phone: [facility] 11-21-2023 13:36-0400 Heart rate 76 /min Mikayla Strange MD Work Phone: [facility] 11-21-2023 13:36-0400 Systolic blood pressure 105 mm[Hg] Mikayla Strange MD Work Phone: [facility] 05-12-2023 13:48-0500 Body height 165.1 cm Mikayla Strange MD Work Phone: [facility] 05-12-2023 13:48-0500 Body weight 103.96 kg Mikayla Strange MD Work Phone: [facility] 05-12-2023 13:48-0500 Diastolic blood pressure 62 mm[Hg] Mikayla Strange MD Work Phone: [facility] 05-12-2023 13:48-0500 Heart rate 93 /min Mikayla Strange MD Work Phone: [facility] 05-12-2023 13:48-0500 SaO2% (BldA) [Mass fraction] 97 % Mikayla Strange MD Work Phone: [facility] 05-12-2023 13:48-0500 Systolic blood pressure 104 mm[Hg] Mikayla Strange MD Work Phone: [facility] 10-25-2022 12:59-0400 Body height 165.1 cm Mikayla Strange MD Work Phone: [facility] 10-25-2022 12:59-0400 Body weight 105.23 kg Mikayla Strange MD Work Phone: [facility] 10-25-2022 12:59-0400 Diastolic blood pressure 64 mm[Hg] Mikayla Strange MD Work Phone: [facility] 10-25-2022 12:59-0400 Heart rate 82 /min Mikayla Strange MD Work Phone: [facility] 10-25-2022 12:59-0400 Respiratory rate 16 /min Mikayla Strange MD Work Phone: [facility] 10-25-2022 12:59-0400 Systolic blood pressure 112 mm[Hg] Mikayla Strange MD Work Phone: [facility] 08-26-2022 14:07-0500 Body temperature 99.4 [degF] [facility] 08-26-2022 14:07-0500 Diastolic blood pressure 55 mm[Hg] [facility] 08-26-2022 14:07-0500 Heart rate 75 /min [facility] 08-26-2022 14:07-0500 Respiratory rate 18 /min [facility] 08-26-2022 14:07-0500 SaO2% (BldA) [Mass fraction] 96 % [facility] 08-26-2022 14:07-0500 Systolic blood pressure 95 mm[Hg] [facility] 08-26-2022 12:02-0500 Body height 165.1 cm [facility] 08-26-2022 12:02-0500 Body mass index (BMI) [Ratio] 40.6 kg/m2 [facility] 08-26-2022 12:02-0500 Body weight 110.7 kg [facility] 06-22-2022 14:15-0500 Body height 167.6 cm Gwen Blakely MD Work Phone: [facility] 06-22-2022 14:15-0500 Body temperature 97.3 [degF] Gwen Blakely MD Work Phone: [facility] 06-22-2022 14:15-0500 Body weight 115.85 kg Gwen Blakely MD Work Phone: [facility] 06-22-2022 14:15-0500 Diastolic blood pressure 82 mm[Hg] Gwen Blakely MD Work Phone: [facility] 06-22-2022 14:15-0500 Heart rate 91 /min Gwen Blakely MD Work Phone: [facility] 06-22-2022 14:15-0500 SaO2% (BldA) [Mass fraction] 99 % Gwen Blakely MD Work Phone: [facility] 06-22-2022 14:15-0500 Systolic blood pressure 118 mm[Hg] Gwen Blakely MD Work Phone: [facility] 05-27-2022 09:44-0500 Diastolic blood pressure 60 mm[Hg] Gwen Blakely MD Work Phone: [facility] 05-27-2022 09:44-0500 Heart rate 84 /min Gwen Blakely MD Work Phone: [facility] 05-27-2022 09:44-0500 Respiratory rate 16 /min Gwen Blakely MD Work Phone: [facility] 05-27-2022 09:44-0500 SaO2% (BldA) [Mass fraction] 97 % Gwen Blakely MD Work Phone: [facility] 05-27-2022 09:44-0500 Systolic blood pressure 120 mm[Hg] Gwen Blakely MD Work Phone: [facility] 05-27-2022 07:52-0500 Body temperature 97.59 [degF] Gwen Blakely MD Work Phone: [facility] 05-27-2022 07:52-0500 Body weight 110.1 kg Gwen Blakely MD Work Phone: [facility] 04-11-2022 15:05-0400 Body height 167.6 cm Gwen Blakely MD Work Phone: [facility] 04-11-2022 15:05-0400 Body temperature 98.01 [degF] Gwen Blakely MD Work Phone: [facility] 04-11-2022 15:05-0400 Body weight 112.67 kg Gwen Blakely MD Work Phone: [facility] 04-11-2022 15:05-0400 Diastolic blood pressure 72 mm[Hg] Gwen Blakely MD Work Phone: [facility] 04-11-2022 15:05-0400 Heart rate 100 /min Gwen Blakely MD Work Phone: [facility] 04-11-2022 15:05-0400 SaO2% (BldA) [Mass fraction] 98 % Gwen Blakely MD Work Phone: [facility] 04-11-2022 15:05-0400 Systolic blood pressure 140 mm[Hg] Gwen Blakely MD Work Phone: [facility] 01-14-2022 10:11-0400 Body weight 116.57 kg Mikayla Strange MD Work Phone: [facility] 01-14-2022 10:11-0400 Diastolic blood pressure 70 mm[Hg] Mikayla Strange MD Work Phone: [facility] 01-14-2022 10:11-0400 Heart rate 88 /min Mikayla Strange MD Work Phone: [facility] 01-14-2022 10:11-0400 Systolic blood pressure 118 mm[Hg] Mikayla Strange MD Work Phone: [facility] 12-24-2021 14:07-0400 Diastolic blood pressure 78 mm[Hg] Sayda Haagen [employer]MATH [employer] SCIENCES DEPARTMENT CHAIR Work Phone: [facility] 12-24-2021 14:07-0400 Heart rate 104 /min Sayda Haagen [employer]MATH AND SCIENCES DEPARTMENT CHAIR Work Phone: [facility] 12-24-2021 14:07-0400 Respiratory rate 18 /min Sayda Haagen [employer]MATH AND SCIENCES DEPARTMENT CHAIR Work Phone: [facility] 12-24-2021 14:07-0400 SaO2% (BldA) [Mass fraction] 98 % Sayda Haagen [employer]MATH AND SCIENCES DEPARTMENT CHAIR Work Phone: [facility] 12-24-2021 14:07-0400 Systolic blood pressure 134 mm[Hg] Sayda Haagen [employer]MATH AND SCIENCES DEPARTMENT CHAIR Work Phone: [facility] 11-17-2021 15:40-0400 Body weight 117.94 kg Mikayla Strange MD Work Phone: [facility] 11-17-2021 15:40-0400 Diastolic blood pressure 80 mm[Hg] Mikayla Strange MD Work Phone: [facility] 11-17-2021 15:40-0400 Heart rate 80 /min Miakyla Strange MD Work Phone: [facility] 11-17-2021 15:40-0400 Systolic blood pressure 162 mm[Hg] Mikayla Strange MD Work Phone: [facility] 09-17-2021 13:46-0400 Body weight 122.56 kg Mikayla Strange MD Work Phone: [facility] 09-17-2021 13:46-0400 Diastolic blood pressure 76 mm[Hg] Mikayla Strange MD Work Phone: [facility] 09-17-2021 13:46-0400 Heart rate 92 /min Mikayla Strange MD Work Phone: [facility] 09-17-2021 13:46-0400 Respiratory rate 18 /min Mikayla Strange MD Work Phone: [facility] 09-17-2021 13:46-0400 Systolic blood pressure 138 mm[Hg] Mikayla Strange MD Work Phone: [facility] 01-05-2015 14:45-0400 Body Temperature 98 [degF] [facility] Work Phone: 11-28-2014 14:43-0400 BMI (Body Mass Index) 38.41 kg/m2 [facility] Work Phone: 11-28-2014 14:43-0400 Weight 107.96 kg [facility] Work Phone: 04-07-2014 11:44-0400 BP Diastolic 79 mm[Hg] [facility] Work Phone: 04-07-2014 11:44-0400 BP Systolic 118 mm[Hg] [facility] Work Phone: 04-07-2014 11:44-0400 Pulse (Heart Rate) 74 /min [facility] Work Phone: 09-25-2012 09:31-0400 BSA (Body Surface Area) 2.08 m2 [facility] Work Phone: 09-25-2012 09:31-0400 Height 167.64 cm [facility] Work Phone: 09-25-2012 09:31-0400 Respiratory Rate 16 /min [facility] Work Phone: Encounters Encounter Date Encounter Type Care Provider Facility Start: 11-25-2024 End: 11-25-2024 ambulatory SYDNI WAGGONER Facility:[facility] Start: 11-25-2024 End: 11-25-2024 Patient encounter procedure Sydni Waggoner MD Work Phone: 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 Mati Magallon MD -[facility] Start: 11-21-2024 End: 11-21-[address] Mikayla Strange MD Work Phone: [facility] Work Phone: Start: 11-11-2024 End: 11-11-[address] Mati Magallon MD -[facility] Start: 11-11-2024 End: 11-11-[address] Mikayla Strange MD Work Phone: [facility] Work Phone: Start: 10-30-2024 End: 10-30-[address] Mikayla Strange MD Work Phone: [facility] Work Phone: Start: 10-30-2024 End: 10-30-[address] Latia Ward MD -Radiology, [facility] Work Phone: Start: 10-30-2024 End: 10-30-2024 ambulatory Latia Ward Facility:[facility] Start: 10-22-2024 End: 10-22-2024 Office outpatient visit 15 minutes Sayda Carr APRN.CNP Work Phone: [facility] Comment on above: Fracture Risk Assess ment Score (FRAX) indicating greater than 20% risk for major osteoporosis-related fracture (Primary Dx) Start: 10-22-2024 End: 10-22-2024 ambulatory SAYDA CARR Facility:[facility] Start: 10-21-2024 End: 10-21-2024 Patient encounter procedure Ga Blackburn PA-C Work Phone: 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 Start: 10-15-2024 End: 10-16-2024 Follow-up encounter Sayda Carr APRN.CNP Work Phone: [facility] Comment on above: F/U on Bone Density Results Start: 10-11-2024 ambulatory MIKAYLA STRANGE Facility :[facility] Start: 10-11-2024 End: 10-11-2024 Subsequent hospital visit by physician Bone Density [facility] Work Phone: Radiology Comment on above: Fracture [T14.8XXA] Start: 10-03-2024 ambulatory [facility] Facility:[facility] Start: 10-03-2024 Registered Recurring Sydni Awad MD -Physical Therapy Work Phone: Start: 09-16-2024 Registered Recurring Sydni Awad MD -Physical Therapy Work Phone: Start: 09-06-2024 End: 09-06-[address] Mikayla Strange MD Work Phone: [facility] Work Phone: Start: 09-06-2024 End: 09-06-[address] Smita Buck MD -Laboratory, [place] Work Phone: Start: 09-06-2024 End: 09-06-2024 ambulatory [facility] Facility:[facility] Start: 08-19-2024 End: 08-19-2024 Telephone encounter Mikayla Strange MD Work Phone: [facility] Comment on above: Results Start: 08-16-2024 End: 10-16-2024 Follow-up encounter Mikayla Strange MD Work Phone: [facility] Start: 08-16-2024 End: 08-16-2024 Telephone encounter Mikayla Strange MD Work Phone: [facility] Comment on above: Results Start: 08-14-2024 End: 08-14-2024 ambulatory MIKAYLA Valencia HUNTER Facility:[facility] Start: 08-14-2024 End: 08-14-2024 Patient encounter procedure Mikayla Strange MD Work Phone: [facility] Comment on above: Dysuria (Primary Dx) ; Chronic insomnia; Fibromyalgia; Other hyperlipidemia; Primary hypertension; Rheumatoid arthritis, involving unspecified site, unspecified whether rheumatoid factor present (HCC); Stage 3 chronic kidney disease, unspecified whether stage 3a or 3b CKD (HCC); Obesity, Class I, BMI 30-34.9; Type 2 diabetes mellitus without complication, without long-term current use of insulin (HCC); Other diabetic neurological complication associated with type 2 diabetes mellitus (HCC) Start: 08-14-2024 End: 08-14-2024 ambulatory MIKAYLA Valencia HUNTER Facility:[facility] Start: 08-08-2024 End: 08-08-2024 Refill Mikayla Strange MD Work Phone: [facility] Comment on above: Refill Request Start: 08-06-2024 End: 08-07-2024 Refill Mikayla Strange MD Work Phone: [facility] Comment on above: Refill Request Start: 07-22-2024 End: 07-22-2024 Patient encounter procedure Sydni Waggoner MD Work Phone: 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 Start: 07-17-2024 End: 07-17-2024 Telephone encounter Mikayla Strange MD Work Phone: [facility] Comment on above: [facility] - order needs signature/date Start: 07-12-2024 End: 07-12-2024 Telephone encounter Mikayla Strange MD Work Phone: [facility] Comment on above: PT Orders Start: 07-12-2024 End: 07-12-[address] Smita Buck MD -Laboratory, [place] Work Phone: Start: 07-12-2024 End: 07-12-2024 ambulatory Mikayla Hunter Facility:[facility] Start: 07-03-2024 End: 07-03-2024 Telephone encounter Ag Sukh Work Phone: [facility] Start: 07-02-2024 End: 07-02-2024 ambulatory SYDNI WAGGONER Facility:[facility] Start: 07-01-2024 End: 07-01-2024 Telephone encounter Sydni Waggoner MD Work Phone: 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 Start: 06-28-2024 End: 06-29-2024 Emergency department patient visit MIKAYLA Valencia [facility] Facility:[facility] Start: 06-28-2024 End: 06-28-2024 Telephone encounter Sydni Waggoner MD Work Phone: [facility] Comment on above: Patient Update Start: 06-24-2024 Non-patient / Non-visit Dr. Eliel yung MD -[facility] Start: 06-24-2024 End: 06-24-2024 ambulatory Mikayla Strange MD Work Phone: [facility] Comment on above: Symptoms Start: 06-24-2024 End: 06-24-2024 Telephone encounter Mikayla Strange MD Work Phone: [facility] Comment on above: Results Start: 06-24-2024 End: 06-24-2024 Emergency department patient visit Dr. Rafael Martines DO -Emergency Department Work Phone: Start: 06-23-2024 End: 06-23-2024 ambulatory MIKAYLA Valencia [facility] Facility:[facility] Start: 06-23-2024 End: 06-23-2024 Telemedicine consultation with patient Keri Ospina APRN.CNP Work Phone: Telemedicine Comment on above: Procedure, test, or exam not indicated (Primary Dx) Start: 06-14-2024 End: 06-14-2024 Telephone encounter Mikayla Strange MD Work Phone: [facility] Comment on above: Patient Update Start: 06-10-2024 End: 06-10-2024 Telephone encounter Mikayla Strange MD Work Phone: [facility] Comment on above: Orders Start: 06-04-2024 End: 06-04-2024 Telephone encounter Mikayla Strange MD Work Phone: [facility] Comment on above: Home Health orders Start: 06-03-2024 End: 06-03-2024 ambulatory SYDNI ROSALINE Facility:[facility] Start: 05-20-2024 End: 05-20-2024 Chart abstracting [facility]ayla [facility] MD [facility] Start: 05-02-2024 Emergency department patient visit MIKAYLA STRANGE Facility:[facility] Start: 05-01-2024 End: 05-02-2024 Emergency department patient visit Eliel Amancandace Facility:[facility] Start: 04-22-2024 End: 04-22-2024 Refill Mikayla Strange MD Work Phone: [facility] Comment on above: Refill Request Start: 04-18-2024 End: 04-18-2024 ambulatory [facility] Facility:[facility] Start: 04-17-2024 End: 04-17-2024 ambulatory Latia Ward Facility:[facility] Start: 04-11-2024 End: 04-12-2024 Telephone encounter Kd Stockton PA-C Work Phone: Urology Comment on above: Results Start: 04-09-2024 End: 04-09-2024 ambulatory KD STOCKTON Facility:[facility] Start: 04-09-2024 End: 04-09-2024 Patient encounter procedure Kd Stockton PA-C Work Phone: Urology Comment on above: Atrophic vaginitis ( Primary Dx); Dysuria; Microscopic hematuria Start: 03-09-2024 End: 03-09-2024 Telephone encounter Mikayla Strange MD Work Phone: [facility] Comment on above: Results Start: 03-07-2024 End: 03-07-2024 ambulatory MIKAYLA STRANGE Facility:[facility] Start: 03-06-2024 End: 03-06-2024 Telephone encounter Mikayla Strange MD Work Phone: [facility] Comment on above: Results Start: 03-05-2024 End: 03-05-2024 ambulatory MIKAYLA STRANGE Facility:[facility] Start: 02-20-2024 End: 02-20-2024 Patient encounter procedure Mikayla Strange MD Work Phone: [facility] [place] Comment on above: Urinary tract infect ion with hematuria, site unspecified (Primary Dx); Encounter for screening mammogram for malignant neoplasm of breast Start: 02-20-2024 End: 02-20-2024 ambulatory MIKAYLA Valencia HUNTER Facility:[facility] Start: 02-05-2024 Refill Mikayla Strange MD Work Phone: [facility] [place] Comment on above: Refill Request Start: 01-25-2024 End: 01-25-2024 ambulatory Mikayla Strange Facility:[facility] Start: 01-22-2024 ambulatory Mikayla Strange MD Work Phone: [facility] [place] Comment on above: Test Results Start: 01-15-2024 End: 01-15-2024 ambulatory MIKAYLA Annie HUNTER Facility:[facility] Start: 01-08-2024 Telephone encounter Mikayla Strange MD Work Phone: [facility] [place] Comment on above: Results Start: 01-05-2024 End: 01-05-2024 Patient encounter procedure Mikayla Strange MD Work Phone: [facility] [place] Comment on above: Malnutrition of mild degree (HCC) (Primary Dx); Weight loss; Type 2 diabetes mellitus without complication, without long-term current use of insulin (HCC) Start: 01-05-2024 End: 01-05-2024 ambulatory MIKAYLA STRANGE Facility:[facility] Start: 11-24-2023 Telephone encounter [facility]ayla Strange MD [facility] Comment on above: Results Start: 11-23-2023 End: 11-23-2023 ambulatory MIKAYLA STRANGE Facility:[facility] Start: 11-21-2023 End: 11-21-2023 ambulatory MIKAYLA STRANGE Facility:[facility] Start: 11-21-2023 End: 11-21-2023 Patient encounter procedure Mikayla Strange MD Work Phone: [facility] Comment on above: Fibromyalgia (Primar y Dx); Type 2 diabetes mellitus without complication, without long-term current use of insulin ([facility]); Irritable bowel syndrome with constipation; Migraine without aura, intractable, without status migrainosus; Primary hypertension; Other hyperlipidemia; Stage 3 chronic kidney disease, unspecified whether stage 3a or 3b CKD ([facility]); Rheumatoid arthritis, involving unspecified site, unspecified whether rheumatoid factor present ([facility]); DDD (degenerative disc disease), lumbar; Weight loss Start: 11-16-2023 Refill Mikayla Strange MD Work Phone: [facility] Comment on above: Refill Request Start: 08-15-2023 Refill Mikayla Strange MD Work Phone: [facility] Comment on above: Refill Request Start: 08-10-2023 End: 08-10-2023 ambulatory [facility] Work Phone: Start: 08-10-2023 End: 08-10-2023 Patient encounter procedure [facility] Work Phone: Start: 08-08-2023 Refill Mikayla Strange MD Work Phone: [facility] Comment on above: Refill Request Start: 07-12-2023 End: 07-12-2023 ambulatory [facility] Work Phone: Start: 07-12-2023 End: 07-12-2023 Patient encounter procedure [facility] Work Phone: Start: 05-30-2023 Documentation procedure Mammog deb Coordinator [facility] Start: 05-30-2023 Letter encounter Mammography Coordinator [facility] Start: 05-29-2023 End: 05-29-2023 Subsequent hospital visit by physician Screen Mammo [facility] Comment on above: Encounter for screen ing mammogram for malignant neoplasm of breast [Z12.31] Start: 05-12-2023 End: 05-12-2023 Patient encounter procedure Mikayla Strange MD Work Phone: [facility] [place] Comment on above: Primary hypertension (Primary Dx); Other hyperlipidemia; Fibromyalgia; Type 2 diabetes mellitus without complication, without long-term current use of insulin (HCC); Stage 3 chronic kidney disease, unspecified whether stage 3a or 3b CKD (HCC); Panic disorder; Rheumatoid arthritis, involving unspecified site, unspecified whether rheumatoid factor present (HCC); DDD (degenerative disc disease), lumbar; Obesity, Class II, BMI 35-39.9; Encounter for screening mammogram for malignant neoplasm of breast Start: 05-09-2023 Refill Mikayla Strange MD Work Phone: [facility] [place] Comment on above: Refill Request Start: 04-28-2023 Refill Mikayla Strange MD Work Phone: [facility] [place] Comment on above: Refill Request Start: 03-24-2023 End: 03-24-2023 Patient encounter procedure [facility] Work Phone: Start: 01-04-2023 ambulatory Mikayla Strange MD Work Phone: [facility] [place] Comment on above: Prescriptions need t o be sent to [facility] to be filled: Refill Request Start: 12-26-2022 End: 12-26-2022 ambulatory [facility] Work Phone: Start: 12-26-2022 End: 12-26-2022 Patient encounter procedure [facility] Work Phone: Start: 10-31-2022 End: 10-31-2022 Patient encounter procedure Noe Muniz Work Phone: Podiatry Comment on above: Arthritis of foot (P rimary Dx); 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, subsequent encounter; Left foot pain Start: 10-25-2022 End: 10-25-2022 Patient encounter procedure Mikayla Strange MD Work Phone: [facility] Comment on above: Primary hypertension (Primary Dx); Obesity, Class III, BMI 40-49.9 (morbid obesity) ([facility]); Other hyperlipidemia; Type 2 diabetes mellitus without complication, without long-term current use of insulin ([facility]); DDD (degenerative disc disease), lumbar; Rheumatoid arthritis, involving unspecified site, unspecified whether rheumatoid factor present ([facility]); Stage 3 chronic kidney disease, unspecified whether stage 3a or 3b CKD ([facility]); Anemia, unspecified type Start: 10-18-2022 Refill Mikayla Srtange MD Work Phone: [facility] Comment on above: Refill Request Start: 10-03-2022 End: 10-03-2022 Patient encounter procedure [facility] [place] Work Phone: Start: 09-23-2022 ambulatory Noe long Work Phone: Podiatry Comment on above: ct results Start: 09-23-2022 E-mail encounter fro m caregiver Noe Muniz Work Phone: [facility] Start: 09-23-2022 Telephone encounter Noe Connelly Work Phone: Podiatry Comment on above: Results Start: 09-12-2022 End: 09-12-2022 Subsequent hospital visit by physician Ct [facility] ([facility]) Work Phone: Cat Scan Comment on above: Left foot pain [M79. 672] Start: 08-26-2022 Telephone encounter Noe Connelly Work Phone: Podiatry Comment on above: Patient Update Start: 08-26-2022 End: 08-26-2022 Admission to same day surgery center [facility] Start: 08-26-2022 End: 08-26-2022 ambulatory [facility] Work Phone: Start: 08-23-2022 Telephone encounter oNe Connelly Work Phone: Podiatry Comment on above: Patient Update (Pre cert) Start: 08-18-2022 End: 08-18-2022 Subsequent hospital visit by physician Marty [facility] Work Phone: Radiology Comment on above: Arthritis of foot [M 19.079] Start: 08-18-2022 End: 08-18-2022 Patient encounter procedure Noe Muniz Work Phone: Podiatry Comment on above: Arthritis of foot (P rimary Dx); 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, subsequent encounter Start: 08-18-2022 Telephone encounter Noe Connelly Work Phone: Podiatry Comment on above: Upcoming Procedure Start: 08-16-2022 ambulatory Noe long Work Phone: Podiatry Comment on above: Injection in left fo ot Start: 08-15-2022 Refill Mikayla Strange MD Work Phone: [facility] Comment on above: Refill Request Start: 08-08-2022 End: 08-08-2022 Patient encounter procedure Noe Muniz Work Phone: Podiatry Comment on above: Arthritis of foot (P rimary Dx); Posterior tibial tendon dysfunction; Other diabetic neurological complication associated with type 2 diabetes mellitus (HCC) Start: 07-27-2022 ambulatory Mikayla Strange MD Work Phone: [facility] Comment on above: cancellation of pres cription Citapram 40 mg. Start: 07-13-2022 End: 07-13-2022 ambulatory [facility] Work Phone: Start: 07-13-2022 End: 07-13-2022 Patient encounter procedure [facility] Start: 07-06-2022 End: 07-06-2022 ambulatory [facility] Work Phone: Start: 07-06-2022 End: 07-06-2022 Patient encounter procedure [facility] [place] Start: 07-04-2022 End: 07-04-2022 Subsequent hospital visit by physician Xr [facility] [place] Work Phone: Radiology Comment on above: Pes planus of both f eet [M21.41, M21.42] Start: 07-04-2022 End: 07-04-2022 Patient encounter procedure Noe Muniz Work Phone: Podiatry Comment on above: Pes planus of both f eet (Primary Dx); Other diabetic neurological complication associated with type 2 diabetes mellitus (HCC); Arthritis of foot; Posterior tibial tendon dysfunction Start: 06-22-2022 End: 06-22-2022 Patient encounter procedure Gwen Blakely MD Work Phone: General Surgery Comment on above: Change in bowel habi ts (Primary Dx) Start: 05-27-2022 End: 05-27-2022 Subsequent hospital visit by physician Gwen Blakely MD Work Phone: Ambulatory Surgery Comment on above: Change in bowel habi ts [R19.4] Start: 05-20-2022 Refill Mikayla Strange MD Work Phone: [facility] Comment on above: Refill Request Start: 04-20-2022 Telephone encounter Mariah Muñiz APRN.CNP Work Phone: [facility] Comment on above: Results Start: 04-15-2022 Documentation procedure Mammog deb Coordinator [facility] Start: 04-15-2022 Letter encounter Mammography Coordinator [facility] Department Start: 04-14-2022 Telephone encounter Mikayla Strange MD Work Phone: [facility] Comment on above: Results Start: 04-14-2022 End: 04-14-2022 Subsequent hospital visit by physician Screen Mammo [facility] Comment on above: Screening breast exa mination [Z12.39] Start: 04-11-2022 End: 04-11-2022 Patient encounter procedure Gwen Blakely MD Work Phone: General Surgery Comment on above: Change in bowel habi ts; Nausea Start: 04-05-2022 ambulatory Mikayla Strange MD Work Phone: [facility] Comment on above: sweating Start: 03-23-2022 Telephone encounter Mikayla Strange MD Work Phone: [facility] Comment on above: Results Start: 03-11-2022 End: 03-11-[address] Mikayla Strange Work Phone: [facility] Work Phone: Start: 03-11-2022 End: 03-11-[address] Mikayla Strange Work Phone: [facility] Start: 03-03-2022 Refill Mikayla Strange MD Work Phone: [facility] Comment on above: Refill Request Start: 01-31-2022 End: 01-31-2022 Patient encounter procedure Noe Muniz Work Phone: Podiatry Comment on above: Posterior tibial ten don dysfunction (Primary Dx); Pes planus of both feet; Other diabetic neurological complication associated with type 2 diabetes mellitus (HCC); Arthritis of foot Start: 01-14-2022 End: 01-14-2022 Patient encounter procedure Mikayla Strange MD Work Phone: [facility] Comment on above: Primary hypertension Start: 01-10-2022 Non-patient / Non-visit Dr. Cordelia Strange Work Phone: [facility] Start: 01-10-2022 End: 01-10-[address] Mikayla Strange Work Phone: [facility] Start: 12-30-2021 End: 12-30-2021 Patient encounter procedure Noe Muniz Work Phone: Podiatry Comment on above: Pes planus of both f eet (Primary Dx); Foot pain, left; Closed fracture of left foot with nonunion, subsequent encounter; Hammer toes of both feet; Acquired hallux valgus, unspecified laterality; Other diabetic neurological complication associated with type 2 diabetes mellitus (HCC); Hyperkeratosis Start: 12-24-2021 End: 12-24-2021 Patient encounter procedure Sayda Prideraisa BELL Work Phone: [facility] Comment on above: Discoloration of ski n of finger (Primary Dx); SOB (shortness of breath) Start: 12-24-2021 Telephone encounter Mikayla Strange MD Work Phone: [facility] Comment on above: Patient Question Start: 12-23-2021 ambulatory Mikayla Strange MD Work Phone: [facility] Comment on above: painful left foot Start: 12-22-2021 End: 12-22-2021 Patient encounter procedure [facility] Start: 12-17-2021 End: 12-17-2021 Subsequent hospital visit by physician Xr [facility] [place] Work Phone: Radiology Comment on above: Chest pain, atypical [R07.89] Start: 12-10-2021 End: 12-10-2021 Patient encounter procedure [facility] [place] Start: 11-24-2021 Refill Mikayla Strange MD Work Phone: [facility] Comment on above: Refill Request Start: 11-18-2021 Telephone encounter Mikayla Strange MD Work Phone: [facility] Comment on above: Insurance Authorizat ion Start: 11-17-2021 End: 11-17-2021 Patient encounter procedure Mikayla Strange MD Work Phone: [facility] Comment on above: Nausea (Primary Dx); Type 2 diabetes mellitus without complication, without long-term current use of insulin (HCC); Panic disorder; Migraine without aura, intractable, without status migrainosus; Other hyperlipidemia; Elevated BP without diagnosis of hypertension Start: 09-29-2021 ambulatory Mikayla Strange MD Work Phone: [facility] Comment on above: Vomiting since Start: 09-29-2021 Telephone encounter Mikayla Strange MD Work Phone: [facility] Comment on above: Opened In Error Start: 09-17-2021 End: 09-17-2021 Patient encounter procedure Mikayla Strange MD Work Phone: [facility] [place] Comment on above: Type 2 diabetes adina itus without complication, without long- term current use of insulin (HCC) (Primary Dx); Irritable bowel syndrome with constipation; Rheumatoid arthritis of multiple sites with negative rheumatoid factor (HCC); DDD (degenerative disc disease), lumbar; Other hyperlipidemia; Panic disorder; Migraine without aura, intractable, without status migrainosus Start: 09-17-2021 End: 09-17-2021 Patient encounter procedure [facility] [place] Procedures Date Procedure Procedure Detail Performing Clinician Start: 11-25-2024 Radiologic examinati on knee 1/2 views Sydni Waggoner MD Work Phone: Start: 11-11-2024 X-ray of knee, one o r two views Dr. Mikayla Strange MD Work Phone: Start: 10-30-2024 X-ray of knee, one o r two views Dr. Mikayla Strange MD Work Phone: Start: 10-21-2024 Radiologic examinati on knee 1/2 views Ga Blackburn PA-C Work Phone: Start: 07-22-2024 Radiologic examinati on knee 1/2 views Sydni Waggoner MD Work Phone: Start: 07-12-2024 Measurement of renal function Dr. Mikayla Strange MD Work Phone: Comment on above: GFR Calc Start: 06-24-2024 Plain X-ray of femur Dr Lexis Strange MD Work Phone: Start: 06-24-2024 Plain X-ray of tibia and fibula Dr. Mikayla Strange MD Work Phone: Start: 06-24-2024 X-ray of chest, PA a nd lateral views Dr. Mikayla Strange MD Work Phone: Start: 06-24-2024 CT angiography of ch est with contrast Dr. Mikayla Strange MD Work Phone: Start: 06-24-[address] Paulo Strange MD Work Phone: Start: 06-24-2024 Identification proce mejia for living organism Dr. Mikayla Strange MD Work Phone: Start: 06-24-[address] Paulo Strange MD Work Phone: Start: 05-09-2024 Hemoglobin A1c/Hemoglobin.total in Blood [facility] Provider Start: 05-02-2024 Antibody screen MIKAYLA STRANGE Comment on above: Order Comment: Speci men Type: BLOOD SPECIMEN Ordering Facility: [facility] Address: [address] [place] [address] Performed By: #### T SCR #### [facility] [place] [place] [facility] CLIA [id number] [address] [place] Start: 04-09-2024 Urnls dip stick/tabl et rgnt auto w/o microscopy Kd Stockton PA-C Work Phone: Start: 02-20-2024 Urnls dip stick/tabl et rgnt auto w/o microscopy Mikayla Strange MD Work Phone: Start: 11-21-2023 Adult depression screening assessment Mikayla Strange MD Work Phone: Start: 09-12-2022 Ct lower extremity w /o contrast material Noe Muniz Work Phone: Start: 08-26-2022 Injection of joint o f foot Start: 08-18-2022 Radex foot complete minimum 3 views Noe Muniz Work Phone: Start: 07-04-2022 Radex foot complete minimum 3 views Noe Muniz Work Phone: Start: 05-27-2022 Level iv surg pathol ogy gross&microscopic exam Gwen Blakely MD Work Phone: Start: 05-27-2022 Colonoscopy flx dx w/collj spec when pfrmd Gwen Blakely MD Work Phone: Start: 05-27-2022 Colonoscopy Gwen Blakely MD Work Phone: Start: 04-14-2022 Mammography Mammograph y Coordinator Start: 01-10-2022 Cardiovascular stres s test using pharmacologic stress agent Dr. Mikayla Strange Work Phone: Start: 12-22-2021 X-ray of cervical spine Start: 12-17-2021 Radex foot complete minimum 3 views Mikayla Strange MD Work Phone: Start: 12-17-2021 Radiologic exam ches t 2 views Mikayla Strange MD Work Phone: Start: 11-17-2021 Adult depression screening assessment Mikayla Strange MD Work Phone: Start: 04-01-2021 Mammography Mikayla Newell MD Work Phone: Start: 09-26-2016 End: 09-26-2016 Dietary management education, guidance, and counseling Kiara Giang Start: 05-05-2014 End: 05-08-2014 Documentation of current medications Sydni Campos Work Phone: Start: 05-05-2014 End: 05-05-2014 X-ray exam, knee, 4 or more Sydni Campos Work Phone: Start: 10-01-2012 Colonoscopy Mikayla Newell MD Work Phone: Screening for malign ant neoplasm of colon SCREENING, COLON CANCER Kiara Giang Plan of Treatment Date Care Activity Detail Author Start: 05-27-2032 Colonoscopy COLONOSCOPY [facility] Start: 05-27-2032 COLORECTAL CANCER SCREENING COLORECTAL CANCER SCREENING [facility] Start: 05-27-2032 Screening for malignant neoplasm of colon [facility] Start: 10-22-2025 Annual PCP Team Chronic Disease Visit Annual PCP Team Chronic Disease Visit [facility] Start: 10-22-2025 BP Controlled (<130/80) BP Controlled (<130/80) [facility] Start: 08-14-2025 Annual PCP Team Chronic Disease Visit Annual PCP Team Chronic Disease Visit [facility] Start: 08-14-2025 BP Controlled (<130/80) BP Controlled (<130/80) [facility] Start: 08-14-2025 Creatinine measurement Serum Creatinine [facility] Start: 06-30-2025 Complete blood count Hemoglobin/Hematocrit [facility] Start: 06-30-2025 Creatinine measurement Serum Creatinine [facility] Start: 06-28-2025 Creatinine measurement Serum Creatinine [facility] Start: 05-09-2025 Creatinine measurement Serum Creatinine [facility] Start: 04-28-2025 End: 04-28-2025 Patient encounter procedure 04/28/2025 2:15 PM EST Office Visit [facility] [address] [place] [address] Sydni Waggoner MD [address] [place] [address] FU RIGHT KNEE, SX 05/03/24 AND 05/07/24 [facility] Comment on above: FU RIGHT KNEE, SX 05/03/24 AND 05/07/24 Start: 04-09-2025 BP Controlled (<130/80) BP Controlled (<130/80) [facility] Start: 02-20-2025 HPV TESTING HPV TESTING [facility] Start: 02-20-2025 PAP TESTING PAP TESTING [facility] Start: 02-19-2025 Annual PCP Team Chronic Disease Visit Annual PCP Team Chronic Disease Visit [facility] Start: 02-19-2025 BP Controlled (<130/80) BP Controlled (<130/80) [facility] Start: 02-11-2025 Hemoglobin A1c measurement HbA1C [facility] Start: 01-16-2025 Screening for malignant neoplasm of colon Fecal Occult Blood [facility] Start: 01-14-2025 Complete blood count Hemoglobin/Hematocrit [facility] Start: 01-04-2025 Annual PCP Team Chronic Disease Visit Annual PCP Team Chronic Disease Visit [facility] Start: 01-04-2025 Complete blood count Hemoglobin/Hematocrit [facility] Start: 01-04-2025 Creatinine measurement Serum Creatinine [facility] Start: 11-29-2024 End: 11-29-2024 Patient encounter procedure 11/29/2024 1:00 PM EDT [facility] [address] [place] [address] Mikayla Strange MD [address] [place] [address] Medicare Wellness [facility] [place] Comment on above: Medicare Wellness Start: 11-26-2024 Glaucoma screening Dilated Retinal Exam [facility] Start: 11-22-2024 Hepatitis B screening Urine Albumin:Creatinine Ratio [facility] Start: 11-22-2024 Hepatitis B surface antibody level LDL Cholesterol [facility] Start: 11-21-2024 X-ray of lumbosacral spine L/S Spine Min 4 Views [facility] Start: 11-21-2024 XR Spine Lumbar and Sacrum GE 4 Views [facility] Start: 11-20-2024 Annual PCP Team Chronic Disease Visit Annual PCP Team Chronic Disease Visit [facility] Start: 11-20-2024 BP Controlled (<130/80) BP Controlled (<130/80) [facility] Start: 11-20-2024 Covid-19 Vaccine (#1) Covid-19 Vaccine (#1) [facility] Comment on above: Postponed from 1963 (Declined at t his time) Start: 11-20-2024 Depression Screening Depression Screening [facility] Start: 11-20-2024 Urine microalbumin profile DTaP,Tdap,Td Vaccine (1 - Tdap) [facility] Comment on above: Postponed from 1977 (Declined at t his time) Start: 11-11-2024 X-ray of knee, one or two views Knee 1 or 2 Views [facility] Start: 11-11-2024 XR Knee 1 or 2 Views [facility] Start: 11-06-2024 Hemoglobin A1c measurement HbA1C [facility] Start: 10-22-2024 End: 10-22-2024 Patient encounter procedure 10/22/2024 1:40 PM EDT Office Visit [facility] [address] [place] [address] Sayda Carr APRN.MATH AND SCIENCES DEPARTMENT CHAIR [address] [place] [address] discuss bone density treatment options [facility] [place] [facility] Comment on above: discuss bone density treatment options Start: 10-21-2024 End: 10-21-2024 Patient encounter procedure [facility] Comment on above: RIGHT KNEE, SX 11/8/24 AND 05/07/24 Start: 08-14-2024 End: 08-14-2024 Patient encounter procedure 08/14/2024 3:20 PM EST Office Visit Family [facility] [place] [address] [facility] [place] [address] Mikayla Strange MD [address] [place] [address] 6 month follow up. Labs prior [facility] [place] Comment on above: 6 month follow up. Labs prior Start: 08-14-2024 End: 11-13-2024 Bacteria identified in Urine by Culture BACTERIAL CULTURE, URINE Microbiology Routine Dysuria Expected: 08/14/2024, Expires: 11/13/2024 [facility] Comment on above: Expected: 08/14/2024, Expires: Start: 08-14-2024 End: 11-13-2024 CBC W Auto Differential panel - Blood [facility] Work Phone: Comment on above: Expected: 08/14/2024, Expires: 5 Start: 08-14-2024 End: 11-13-2024 Comprehensive metabolic 2000 panel - Serum or Plasma [facility] Comment on above: Expected: 08/14/2024, Expires: Start: 08-14-2024 End: 11-13-2024 Hemoglobin A1c in Blood [facility] Comment on above: Expected: 08/14/2024, Expires: 5 Start: 08-14-2024 End: 11-13-2024 URINALYSIS, REFLEX MICROSCOPIC URINALYSIS, REFLEX MICROSCOPIC Lab Routine Dysuria Expected: 08/14/2024, Expires: 11/13/2024 [facility] Comment on above: Expected: 08/14/2024, Expires: Start: 07-22-2024 End: 07-22-2024 Patient encounter procedure 07/22/2024 2:45 PM EST Office Visit [facility] [address] [place], [place] [id number] Sydni Waggoner MD [address] [place] [address] [place] [id number] PO R knee [facility] Comment on above: PO R knee Start: 07-16-2024 End: 07-16-2024 Patient encounter procedure 07/16/2024 2:00 PM EST Office Visit Urology [address] [place] [address] Kd Stockton PA-C [address] [place] [address] 3 MTH F/U Urology Comment on above: 3 MTH F/U Start: 07-09-2024 End: 07-09-2024 Patient encounter procedure 07/09/2024 1:40 PM EST Office Visit [facility] [address] [place] [address] Mikayla Strange MD [address] [place], [place] [id number] 6 month follow up. Labs prior [facility] Comment on above: 6 month follow up. Labs prior Start: 07-08-2024 End: 07-08-2024 Patient encounter procedure 07/08/2024 2:45 PM EST Office Visit [facility] [address] [place] [address] Sydni Waggoner MD [address] [address] PO R knee [facility] Comment on above: PO R knee Start: 07-07-2024 End: 10-06-2024 CBC W Auto Differential panel - Blood COMPLETE BLOOD COUNT AND DIFFERENTIAL Lab Routine Type 2 diabetes mellitus without complication, without long-term current use of insulin ([facility]) Expected: 07/07/2024, Expires: 10/06/2024 [facility] Comment on above: Expected: 07/07/2024, Expires: Start: 07-07-2024 End: 10-06-2024 Comprehensive metabolic 2000 panel - Serum or Plasma COMPREHENSIVE METABOLIC PANEL Lab Routine Type 2 diabetes mellitus without complication, without long-term current use of insulin ([facility]) Expected: 07/07/2024, Expires: 10/06/2024 [facility] Comment on above: Expected: 07/07/2024, Expires: Start: 07-07-2024 End: 10-06-2024 Hemoglobin A1c in Blood HEMOGLOBIN A1C Lab Routine Type 2 diabetes mellitus without complication, without long-term current use of insulin (HCC) Expected: 07/07/2024, Expires: 10/06/2024 [facility] Comment on above: Expected: 07/07/2024, Expires: Start: 07-07-2024 Hemoglobin A1c measurement HbA1C [facility] Start: 07-02-2024 End: 07-02-2024 Admission to same day surgery center 07/02/2024 12:15 PM EST - 07/02/2024 1:20 PM EST Surgery [facility] [address] [facility] [address] Sydni Waggoner MD [address] [place] [address] REMOVAL EXTERNAL FIXATION SYSTEM UNDER ANESTHESIA [facility] Comment on above: REMOVAL EXTERNAL FIXATION SYSTEM UNDER A NESTHESIA Start: 07-02-2024 End: 07-02-2024 Removal external fixation system under anes REMOVAL EXTERNAL FIXATION SYSTEM UNDER ANESTHESIA 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, subsequent encounter 07/02/2024 12:15 PM EST [place] Start: 07-02-2024 Subsequent hospital visit by physician 07/02/2024 12:15 PM EST Hospital Encounter [facility] [place] [address] Sydni Waggoner MD [address] [place] [address] 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, subsequent encounter [M97.11XD] [facility] Comment on above: 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, subsequent encounter [M97.11XD] Start: 06-26-2024 Advance Directive Discussion Advance Directive Discussion [facility] Start: 06-24-2024 [facility] Start: 06-03-2024 End: 06-03-2024 Patient encounter procedure 06/03/2024 1:45 PM EST Office Visit [facility] [address] [place] [address] Sydni Waggoner MD [address] [place] [address] po R knee fx 05-03 [facility] Comment on above: po R knee fx 05-03 Start: 05-29-2024 Mammography Mammogram Screening [facility] Start: 05-29-2024 Screening for malignant neoplasm of breast Mammogram Screening [facility] Start: 05-25-2024 Hemoglobin A1c measurement HbA1C [facility] Start: 05-12-2024 3 comp foot exam completed Diabetic Foot Exam [facility] Start: 05-12-2024 Annual PCP Team Chronic Disease Visit Annual PCP Team Chronic Disease Visit [facility] Start: 05-12-2024 BP Controlled (<130/80) BP Controlled (<130/80) [facility] Start: 05-12-2024 Diabetic foot examination Diabetic Foot Exam [facility] Start: 05-12-2024 Hepatitis B Vaccine (1 of 3 - Risk 3-dose series) Hepatitis B Vaccine (1 of 3 - Risk 3-dose series) [facility] Comment on above: Postponed from 2018 (Declined at t his time) Start: 05-12-2024 Pneumococcal Vaccine: 65+ (1 - PCV) Pneumococcal Vaccine: 65+ (1 - PCV) [facility] Comment on above: Postponed from 1964 (Declined at t his time) Start: 05-12-2024 Pneumococcal Vaccine: 65+ (1 of 2 - PCV) Pneumococcal Vaccine: 65+ (1 of 2 - PCV) [facility] Comment on above: Postponed from 1964 (Declined at t his time) Start: 05-12-2024 RSV Vaccine (1 - 1-dose 60+ series) RSV Vaccine (1 - 1-dose 60+ series) [facility] Comment on above: Postponed from 2018 (Declined at t his time) Start: 05-12-2024 RSV Vaccine (1 - Risk 60-74 years 1-dose series) RSV Vaccine (1 - Risk 60-74 years 1-dose series) [facility] Comment on above: Postponed from 2018 (Declined at t his time) Start: 04-09-2024 End: 04-09-2024 Patient encounter procedure 04/09/2024 3:00 PM EDT Office Visit Urology [address] [place] [address] Kd Stockton PA-C [address] [place] [address] Dysuria Urology Comment on above: Dysuria Start: 03-06-2024 End: 06-05-2024 Bacteria identified in Urine by Culture URINE CULTURE Microbiology Routine Acute cystitis with hematuria Expected: 03/06/2024, Expires: 06/05/2024 [facility] Work Phone: Comment on above: Expected: 03/06/2024, Expires: Start: 03-05-2024 End: 06-04-2024 Urinalysis complete panel - Urine URINALYSIS WITH MICROSCOPIC, REFLEX CULTURE Lab Routine Urinary tract infection with hematuria, site unspecified Expected: 03/05/2024, Expires: 06/04/2024 [facility] Work Phone: Comment on above: Expected: 03/05/2024, Expires: 4 Start: 01-15-2024 End: 01-15-2024 ambulatory 01/15/2024 1:00 PM EDT Results Only [facility] [address] [place] [address] labs [facility] Comment on above: labs Start: 01-08-2024 End: 01-07-2025 CBC W Auto Differential panel - Blood COMPLETE BLOOD COUNT AND DIFFERENTIAL Lab Routine Anemia, unspecified type Expected: 01/08/2024, Expires: 01/07/2025 [facility] Work Phone: Comment on above: Expected: 01/08/2024, Expires: 5 Start: 01-08-2024 End: 01-07-2025 Cobalamin (Vitamin B12) [Mass/volume] in Serum or Plasma VITAMIN B12 Lab Routine Anemia, unspecified type Expected: 01/08/2024, Expires: 01/07/2025 [facility] Comment on above: Expected: 01/08/2024, Expires: Start: 01-08-2024 End: 01-07-2025 Ferritin [Mass/volume] in Serum or Plasma FERRITIN Lab Routine Anemia, unspecified type Expected: 01/08/2024, Expires: 01/07/2025 [facility] Comment on above: Expected: 01/08/2024, Expires: Start: 01-08-2024 End: 01-07-2025 Folate [Mass/volume] in Serum or Plasma FOLATE, SERUM Lab Routine Anemia, unspecified type Expected: 01/08/2024, Expires: 01/07/2025 [facility] Comment on above: Expected: 01/08/2024, Expires: Start: 01-08-2024 End: 01-07-2025 Hemoglobin.gastrointestin al.lower [Presence] in Stool by Immunoassay IMMUNOCHEMICAL FECAL OCCULT BLOOD TEST Lab Routine Anemia, unspecified type Expected: 01/08/2024, Expires: 01/07/2025 [facility] Comment on above: Expected: 01/08/2024, Expires: Start: 01-08-2024 End: 01-07-2025 Iron and Iron binding capacity panel - Serum or Plasma IRON AND TIBC Lab Routine Anemia, unspecified type Expected: 01/08/2024, Expires: 01/07/2025 [facility] Comment on above: Expected: 01/08/2024, Expires: Start: 01-05-2024 End: 04-05-2024 Prealbumin [Mass/volume] in Serum or Plasma [facility] Work Phone: Comment on above: Expected: 01/05/2024, Expires: Start: 01-05-2024 End: 01-05-2024 Patient encounter procedure 01/05/2024 11:40 AM EDT Office Visit [facility] [place] [address] [place] [address] Mikayla Strange MD [address] [place] [address] 6 week follow up [facility] Comment on above: 6 week follow up Start: 11-21-2023 End: 02-20-2024 Hemoglobin A1c in Blood HEMOGLOBIN A1C Lab Routine Type 2 diabetes mellitus without complication, without long-term current use of insulin (HCC) Expected: 11/21/2023, Expires: 02/20/2024 [facility] Work Phone: Comment on above: Expected: 11/21/2023, Expires: Start: 11-21-2023 End: 02-20-2024 Hepatic function 2000 panel - Serum or Plasma HEPATIC FUNCTION PNL Lab Routine Type 2 diabetes mellitus without complication, without long-term current use of insulin (HCC) Other hyperlipidemia Expected: 11/21/2023, Expires: 02/20/2024 [facility] Comment on above: Expected: 11/21/2023, Expires: Start: 11-21-2023 End: 02-20-2024 Lipid 1996 panel - Serum or Plasma LIPID PANEL BASIC Lab Routine Type 2 diabetes mellitus without complication, without long-term current use of insulin (HCC) Other hyperlipidemia Expected: 11/21/2023, Expires: 02/20/2024 [facility] Comment on above: Expected: 11/21/2023, Expires: Start: 11-21-2023 End: 02-20-2024 Microalbumin/Creatinine [Mass Ratio] in Urine ALBUMIN/CREATININE RATIO, URINE Lab Routine Type 2 diabetes mellitus without complication, without long-term current use of insulin (HCC) Expected: 11/21/2023, Expires: 02/20/2024 [facility] Comment on above: Expected: 11/21/2023, Expires: Start: 11-21-2023 End: 02-20-2024 Prealbumin [Mass/volume] in Serum or Plasma PREALBUMIN Lab Routine Weight loss Expected: 11/21/2023, Expires: 02/20/2024 [facility] Comment on above: Expected: 11/21/2023, Expires: Start: 11-21-2023 End: 02-20-2024 Thyrotropin [Units/volume] in Serum or Plasma THYROID STIMULATING HORMONE Lab Routine Weight loss Expected: 11/21/2023, Expires: 02/20/2024 [facility] Comment on above: Expected: 11/21/2023, Expires: Start: 11-21-2023 End: 11-21-2023 Patient encounter procedure 11/21/2023 1:40 PM EDT Office Visit Family [facility] [address] [place] [address] Mikayla Strange MD [address] [place] [address] 6 month follow up [facility] Comment on above: 6 month follow up Start: 11-10-2023 Hemoglobin A1c measurement HbA1C [facility] Start: 11-10-2023 Hemoglobin A1c/Hemoglobin.total in Blood HbA1C [facility] Start: 11-05-2023 Complete blood count Hemoglobin/Hematocrit [facility] Start: 11-05-2023 Creatinine measurement Serum Creatinine [facility] Start: 11-05-2023 HEMOGLOBIN/HEMATOCRIT HEMOGLOBIN/HEMATOCRIT [facility] Start: 11-05-2023 Hepatitis B screening URINE ALBUMIN:CREATININE RATIO [facility] Start: 11-05-2023 Hepatitis B surface antibody level LDL CHOLESTEROL [facility] Start: 11-05-2023 SERUM CREATININE SERUM CREATININE [facility] Start: 10-26-2023 ANNUAL PCP TEAM CHRONIC DISEASE VISIT ANNUAL PCP TEAM CHRONIC DISEASE VISIT [facility] Start: 10-26-2023 BP CONTROLLED (<130/80) BP CONTROLLED (<130/80) [facility] Start: 10-26-2023 COVID-19 VACCINE (#1) COVID-19 VACCINE (#1) [facility] Comment on above: Postponed from 1958 (Declined at t his time) Postponed from 03/16 (Declined at this time) Start: 10-26-2023 PNEUMOCOCCAL (1 - PCV) PNEUMOCOCCAL (1 - PCV) [facility] Comment on above: Postponed from 1964 (Declined at t his time) Start: 10-26-2023 Urine microalbumin profile [facility] Comment on above: Postponed from 1977 (Declined at t his time) Start: 07-12-2023 Procedure [facility] Start: 07-04-2023 3 comp foot exam completed DIABETIC FOOT EXAM [facility] Start: 06-26-2023 Advance Directive Discussion Advance Directive Discussion [facility] Start: 06-26-2023 Behavioral Health Screening Behavioral Health Screening [facility] Start: 06-26-2023 Depression Assessment Depression Assessment [facility] Start: 05-30-2023 Glaucoma screening Dilated Retinal Exam [facility] Start: 05-30-2023 Hepatitis C antibody, confirmatory test DILATED RETINAL EXAM [facility] Start: 05-12-2023 End: 08-11-2023 Hemoglobin A1c in Blood [facility] [employer] Work Phone: Comment on above: Expected: 05/12/2023, Expires: Start: 05-07-2023 Hemoglobin A1c/Hemoglobin.total in Blood HBA1C [facility] Start: 04-14-2023 Mammography [facility] Start: 04-14-2023 SERUM CREATININE SERUM CREATININE [facility] Start: 03-22-2023 ANNUAL PCP TEAM CHRONIC DISEASE VISIT ANNUAL PCP TEAM CHRONIC DISEASE VISIT [facility] Start: 03-22-2023 BP CONTROLLED (<130/80) BP CONTROLLED (<130/80) [facility] Start: 2023 Advance Directive Discussion Advance Directive Discussion [facility] Start: 01-14-2023 ANNUAL PCP TEAM CHRONIC DISEASE VISIT ANNUAL PCP TEAM CHRONIC DISEASE VISIT [facility] Start: 01-14-2023 BP CONTROLLED (<130/80) BP CONTROLLED (<130/80) [facility] Start: 12-24-2022 ANNUAL PCP TEAM CHRONIC DISEASE VISIT ANNUAL PCP TEAM CHRONIC DISEASE VISIT [facility] Start: 12-17-2022 ANNUAL PCP TEAM CHRONIC DISEASE VISIT ANNUAL PCP TEAM CHRONIC DISEASE VISIT [facility] Start: 11-17-2022 Adult depression screening assessment DEPRESSION SCREENING [facility] Start: 11-17-2022 ANNUAL PCP TEAM CHRONIC DISEASE VISIT ANNUAL PCP TEAM CHRONIC DISEASE VISIT [facility] Start: 10-25-2022 End: 12-25-2022 ALBUMIN/CREAT RATIO RND UR ALBUMIN/CREAT RATIO RND UR Lab Routine Type 2 diabetes mellitus without complication, without long-term current use of insulin (HCC) Expected: 10/25/2022, Expires: 12/25/2022 [facility] Work Phone: Comment on above: Expected: 10/25/2022, Expires: 3 Start: 10-25-2022 End: 12-25-2022 Basic metabolic 2000 panel - Serum or Plasma BASIC METABOLIC PNL Lab Routine Primary hypertension Expected: 10/25/2022, Expires: 12/25/2022 [facility] Work Phone: Comment on above: Expected: 10/25/2022, Expires: 3 Start: 10-25-2022 End: 10-26-2023 CBC W Auto Differential panel - Blood CBC + DIFF Lab Routine Anemia, unspecified type Expected: 10/25/2022, Expires: 10/26/2023 [facility] Work Phone: Comment on above: Expected: 10/25/2022, Expires: 4 Start: 10-25-2022 End: 10-26-2023 Cobalamin (Vitamin B12) [Mass/volume] in Serum or Plasma VITAMIN B12 BLOOD Lab Routine Anemia, unspecified type Expected: 10/25/2022, Expires: 10/26/2023 [facility] Work Phone: Comment on above: Expected: 10/25/2022, Expires: 4 Start: 10-25-2022 End: 10-26-2023 Ferritin [Mass/volume] in Serum or Plasma FERRITIN BLD Lab Routine Anemia, unspecified type Expected: 10/25/2022, Expires: 10/26/2023 [facility] Work Phone: Comment on above: Expected: 10/25/2022, Expires: 4 Start: 10-25-2022 End: 10-26-2023 Folate [Mass/volume] in Serum or Plasma FOLATE SERUM Lab Routine Anemia, unspecified type Expected: 10/25/2022, Expires: 10/26/2023 [facility] Work Phone: Comment on above: Expected: 10/25/2022, Expires: 4 Start: 10-25-2022 End: 12-25-2022 Hemoglobin A1c in Blood HGB A1C Lab Routine Type 2 diabetes mellitus without complication, without long-term current use of insulin (HCC) Expected: 10/25/2022, Expires: 12/25/2022 [facility] Work Phone: Comment on above: Expected: 10/25/2022, Expires: 3 Start: 10-25-2022 Hepatitis B screening URINE ALBUMIN:CREATININE RATIO [facility] Start: 10-25-2022 End: 10-26-2023 Iron and Iron binding capacity panel - Serum or Plasma IRON + TIBC Lab Routine Anemia, unspecified type Expected: 10/25/2022, Expires: 10/26/2023 [facility] Work Phone: Comment on above: Expected: 10/25/2022, Expires: 4 Start: 10-25-2022 End: 12-25-2022 Lipid 1996 panel - Serum or Plasma LIPID PANEL BASIC Lab Routine Other hyperlipidemia Expected: 10/25/2022, Expires: 12/25/2022 [facility] Work Phone: Comment on above: Expected: 10/25/2022, Expires: 3 Start: 10-01-2022 Colonoscopy COLONOSCOPY [facility] Start: 10-01-2022 COLORECTAL CANCER SCREENING COLORECTAL CANCER SCREENING [facility] Start: 09-23-2022 Hepatitis B screening URINE ALBUMIN:CREATININE RATIO [facility] Start: 09-23-2022 Hepatitis B surface antibody level LDL CHOLESTEROL [facility] Start: 09-19-2022 Hemoglobin A1c/Hemoglobin.total in Blood HBA1C [facility] Start: 09-17-2022 ANNUAL PCP TEAM CHRONIC DISEASE VISIT ANNUAL PCP TEAM CHRONIC DISEASE VISIT [facility] Start: 09-17-2022 COVID-19 VACCINE (#1) COVID-19 VACCINE (#1) [facility] Comment on above: Postponed from 1963 (Declined at t his time) Postponed from 09/13 (Declined at this time) Start: 09-17-2022 COVID-19 VACCINE (1) COVID-19 VACCINE (1) [facility] Comment on above: Postponed from 1970 (Declined at t his time) Start: 09-17-2022 ONE PNEUMOVAX PRIOR TO AGE 65 ONE PNEUMOVAX PRIOR TO AGE 63 [facility] Comment on above: Postponed from 1974 (Declined at t his time) Start: 09-17-2022 PNEUMOCOCCAL (1 - PCV) PNEUMOCOCCAL (1 - PCV) [facility] Comment on above: Postponed from 1964 (Declined at t his time) Start: 08-26-2022 Patient discharge [facility] Start: 07-28-2022 Hepatitis C antibody, confirmatory test DILATED RETINAL EXAM [facility] Start: 06-26-2022 DEPRESSION ASSESSMENT DEPRESSION ASSESSMENT [facility] Start: 04-27-2022 Hemoglobin A1c/Hemoglobin.total in Blood HBA1C [facility] Start: 04-14-2022 End: 06-14-2022 CBC W Ordered Manual Differential panel - Blood PATHOLOGIST INTERPRETATION WITH CBC AND DIFF Lab Routine Leukocytosis, unspecified type Expected: 04/14/2022, Expires: 06/14/2022 [facility] Work Phone: Comment on above: Expected: 04/14/2022, Expires: 2 Start: 04-08-2022 3 comp foot exam completed DIABETIC FOOT EXAM [facility] Start: 04-08-2022 Hepatitis B screening URINE ALBUMIN:CREATININE RATIO [facility] Start: 04-06-2022 End: 06-06-2022 CBC W Auto Differential panel - Blood CBC + DIFF Lab Routine Leukocytosis, unspecified type Expected: 04/06/2022, Expires: 06/06/2022 [facility] Work Phone: Comment on above: Expected: 04/06/2022, Expires: 2 Start: 04-01-2022 Mammography MAMMOGRAM [facility] Start: 03-25-2022 Hemoglobin A1c/Hemoglobin.total in Blood HBA1C [facility] Start: 03-24-2022 End: 05-24-2022 Basic metabolic 2000 panel - Serum or Plasma BASIC METABOLIC PNL Lab Routine Renal insufficiency Expected: 03/24/2022, Expires: 05/24/2022 [facility] Work Phone: Comment on above: Expected: 03/24/2022, Expires: 2 Start: 03-11-2022 Hepatitis B surface antibody level LDL CHOLESTEROL [facility] Start: 02-24-2022 Influenza vaccination [facility] Start: 12-30-2021 End: 03-01-2022 25-hydroxyvitamin D3 [Mass/volume] in Serum or Plasma [facility] Work Phone: Comment on above: Expected: 12/30/2021, Expires: 2 Start: 12-23-2021 Influenza vaccination INFLUENZA (#1) [facility] Comment on above: Postponed from 02/24/2021 (Declined at t his time) Start: 09-17-2021 End: 11-17-2021 ALBUMIN/CREAT RATIO RND UR ALBUMIN/CREAT RATIO RND UR Lab Routine Type 2 diabetes mellitus without complication, without long-term current use of insulin (HCC) Expected: 09/17/2021, Expires: 11/17/2021 [facility] Work Phone: Comment on above: Expected: 09/17/2021, Expires: 2 Start: 09-17-2021 End: 11-17-2021 Hemoglobin A1c/Hemoglobin.total in Blood HGB A1C Lab Routine Type 2 diabetes mellitus without complication, without long-term current use of insulin (HCC) Expected: 09/17/2021, Expires: 11/17/2021 [facility] Work Phone: Comment on above: Expected: 09/17/2021, Expires: 2 Start: 09-17-2021 End: 11-17-2021 LIPID PANEL BASIC LIPID PANEL BASIC Lab Routine Other hyperlipidemia Expected: 09/17/2021, Expires: 11/17/2021 [facility] Work Phone: Comment on above: Expected: 09/17/2021, Expires: 2 Start: 09-08-2021 Hemoglobin A1c/Hemoglobin.total in Blood HBA1C [facility] Start: 06-26-2021 DEPRESSION ASSESSMENT DEPRESSION ASSESSMENT [facility] Start: 02-20-2021 Screening for malignant neoplasm of cervix Cervical Cancer Screening [facility] Start: 07-08-2020 SHINGRIX VACCINE (2 of 2) SHINGRIX VACCINE (2 of 2) [facility] Start: 2018 Hepatitis B Vaccine (1 of 3 - Risk 3-dose series) Hepatitis B Vaccine (1 of 3 - Risk 3-dose series) [facility] Start: 2018 RSV Vaccine (1 - 1-dose 60+ series) RSV Vaccine (1 - 1-dose 60+ series) [facility] Start: 2018 RSV Vaccine (1 - Risk 60-74 years 1-dose series) RSV Vaccine (1 - Risk 60-74 years 1-dose series) [facility] Start: 09-28-2016 End: 09-28-2016 Physical Therapy General Physical Therapy [facility], [address] [place] [address], [id number] [facility] Work Phone: Start: 11-28-2014 End: 11-28-2014 X-ray exam of hip X-Ray, Hip Unilateral [facility] Work Phone: Start: 10-22-2014 End: 10-22-2014 X-ray exam, knee, 4 or more X-Ray, Knee [facility] Work Phone: Start: 06-02-2014 End: 06-02-2014 X-ray exam, knee, 4 or more X-Ray, Knee [facility] Work Phone: Start: 05-05-2014 End: 05-05-2014 X-ray exam, knee, 4 or more X-Ray, Knee [facility] Work Phone: Start: 04-07-2014 End: 04-07-2014 X-ray exam, knee, 4 or more X-Ray, Knee [facility] Work Phone: Start: 2003 COLOGUARD (FIT-DNA) COLOGUARD (FIT-DNA) [facility] Start: [address] COLONOGRAPHY [facility] Start: 2003 FECAL OCCULT BLOOD FECAL OCCULT BLOOD [facility] Start: 2003 Screening for malignant neoplasm of colon [facility] Start: 2003 SIGMOIDOSCOPY SIGMOIDOSCOPY [facility] Start: 1977 Pneumococcal Vaccine: 50+ (1 of 2 - PCV) Pneumococcal Vaccine: 50+ (1 of 2 - PCV) [facility] Start: 1977 Urine microalbumin profile [facility] Start: 1976 BP CONTROLLED (<130/80) BP CONTROLLED (<130/80) [facility] Start: 1976 HIV SCREENING HIV SCREENING [facility] Start: 1970 Adult depression screening assessment DEPRESSION SCREENING [facility] Start: 1964 PNEUMOCOCCAL (1 - PCV) PNEUMOCOCCAL (1 - PCV) [facility] Start: 1964 Pneumococcal Vaccine: 65+ (1 - PCV) Pneumococcal Vaccine: 65+ (1 - PCV) [facility] Start: 1964 Pneumococcal Vaccine: 65+ (1 of 2 - PCV) Pneumococcal Vaccine: 65+ (1 of 2 - PCV) [facility] Start: 1963 Covid-19 Vaccine (#1) Covid-19 Vaccine (#1) [facility] Start: 1958 COVID-19 VACCINE (#1) COVID-19 VACCINE (#1) [facility] Bacteria identified in Urine by Culture URINE CULTURE Microbiology Routine Urinary tract infection with hematuria, site unspecified 02/20/2024 4:30 PM EDT [facility] Bacteria identified in Urine by Culture URINE CULTURE Microbiology Routine Dysuria 04/09/2024 3:34 PM EDT [facility] Work Phone: BD DXA TRABECULAR YESENIA NE SCORE (TBS) BD DXA TRABECULAR BONE SCORE (TBS) Radiology Routine Fracture Screening for osteoporosis 10/11/2024 2:11 PM EDT [facility] CBC W Auto Different ial panel - Blood COMPLETE BLOOD COUNT AND DIFFERENTIAL Lab Routine Type 2 diabetes mellitus without complication, without long-term current use of insulin (HCC) 01/05/2024 12:39 PM EDT [facility] End: 04-11-2023 COLONOSCOPY DIAGNOSTIC COLONOSCOPY DIAGNOSTIC Endoscopy Routine Change in bowel habits 1 Occurrences starting 04/11/2022 until 04/11/2023 [facility] Work Phone: Comment on above: 1 Occurrences starting 04/11/2022 until 04/11/2023 Comprehensive metabo lic 2000 panel - Serum or Plasma COMPREHENSIVE METABOLIC PANEL Lab Routine Type 2 diabetes mellitus without complication, without long-term current use of insulin ([facility]) 01/05/2024 12:39 PM T [facility] End: 09-25-2023 Ct lower extremity w/o contrast material CT FOOT WO IVCON LT Radiology Routine Left foot pain 1 Occurrences starting 08/26/2022 until 09/25/2023 [facility] Work Phone: Comment on above: 1 Occurrences starting 08/26/2022 until 09/25/2023 DXA Skeletal system. axial Views for bone density DXA-AXIAL SKELETON Radiology Routine Fracture Screening for osteoporosis 10/11/2024 2:11 PM EDT [facility] Work Phone: End: 12-24-2022 Echocardiography ECHO Cardiology Routine Discoloration of skin of finger SOB (shortness of breath) 1 Occurrences starting 12/24/2021 until 12/24/2022 [facility] Work Phone: Comment on above: 1 Occurrences starting 12/24/2021 until 12/24/2022 End: 04-11-2023 EGD DIAGNOSTIC EGD DIAGNOSTIC Endoscopy Routine Nausea 1 Occurrences starting 04/11/2022 until 04/11/2023 [facility] Work Phone: Comment on above: 1 Occurrences starting 04/11/2022 until 04/11/2023 Hemoglobin A1c in Blood HEMOGLOB IN A1C Lab Routine Type 2 diabetes mellitus without complication, without long-term current use of insulin ([facility]) 01/05/2024 12:39 PM T [facility] End: 06-10-2024 PATSY SCREENING PATSY SCREENING Radiology Routine Encounter for screening mammogram for malignant neoplasm of breast 1 Occurrences starting 05/12/2023 until 06/10/2024 [facility] Work Phone: Comment on above: 1 Occurrences starting 05/12/2023 until 06/10/2024 PATSY SCREENING PATSY SCREENING Ra diology Routine Encounter for screening mammogram for malignant neoplasm of breast 05/29/2023 2:03 PM EST [facility] Work Phone: End: 03-21-2025 MG Breast Screening PATSY SCREENING Radiology Routine Encounter for screening mammogram for malignant neoplasm of breast 1 Occurrences starting 02/20/2024 until 03/21/2025 [facility] Comment on above: 1 Occurrences starting 02/20/2024 until 03/21/2025 Patient Education Cellulitis Dc ED UTIs Women [facility] Work Phone: Patient referral [facility] Work Phone: End: 04-14-2022 Screening mammography bi 2-view breast inc cad [facility] Work Phone: Comment on above: 1 Occurrences starting 04/14/2022 until 04/14/2022 End: 08-03-2023 XR FOOT GENERAL 3V AP/LAT/OBL LEFT XR FOOT GENERAL 3V AP/LAT/OBL LEFT Radiology Routine Pes planus of both feet 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 Posterior tibial tendon dysfunction 1 Occurrences starting 07/04/2022 until 08/03/2023 [facility] Work Phone: Comment on above: 1 Occurrences starting 07/04/2022 until 08/03/2023 XR FOOT GENERAL 3V AP/LAT/OBL LEFT XR FOOT GENERAL 3V AP/LAT/OBL LEFT Radiology Routine Pes planus of both feet 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 Posterior tibial tendon dysfunction 07/04/2022 2:04 PM EST [facility] Work Phone: End: 09-17-2023 XR FOOT GENERAL 3V AP/LAT/OBL LEFT XR FOOT GENERAL 3V AP/LAT/OBL LEFT Radiology Routine 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, subsequent encounter 1 Occurrences starting 08/18/2022 until 09/17/2023 [facility] Work Phone: Comment on above: 1 Occurrences starting 08/18/2022 until 09/17/2023 XR FOOT GENERAL 3V AP/LAT/OBL LEFT XR FOOT GENERAL 3V AP/LAT/OBL LEFT Radiology Routine 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 Immunizations Immunization Date Immunization Notes Care Provider [facility] 05-13-2020 zoster vaccine recombinant Mikayla Strange MD Work Phone: [facility] 03-06-2020 zoster vaccine recombinant Mikayla Strange MD Work Phone: [facility] Payers Date Payer Category Payer Self-pay [id number] 2018 Medicare MMO MEDICARE MMO MEDADVANTAGE PPO [id number] 2018-Present [phone] [place] [id number] PPO [id number] 2018 Medicare MMO MEDICARE MMO MEDADVANTAGE PPO [id number] 2018-Present [phone] [place] [id number] PPO [id number] 2018 Medicare (Managed Care) MMO ANA LUISA DVANTAGE PPO [id number] 2018 Medicare [id number] 2016 Medicare [id number] Unknown [id number] Unknown [id number] Unknown [id number] Unknown [id number] .[id number] Unknown [id number] Unknown [id number] Unknown [id number] Unknown [id number] Unknown [id number] .[id number] Unknown [id number] .[id number] Unknown [id number] .[id number] Unknown [id number] .[id number] Unknown [id number] .[id number] Unknown [id number] Social History Date Type Detail Facility Start: 05-11-2019 End: 03-22-2022 Tobacco smoking status [facility] Never smoked tobacco [facility] Start: 09-17-2021 End: 11-25-2024 Alcohol intake Current non-drinker of alcohol (finding) [facility] Start: 02-21-2020 History SDOH Social Connections Phone 5 [facility] Start: 02-21-2020 History SDOH Social Connections Get Together 2 [facility] Start: 02-21-2020 History SDOH Social Connections [facility] 1 [facility] Start: 02-21-2020 History SDOH Social Connections Living 3 [facility] Start: 02-21-2020 History SDOH Physica l Activity DPW 0 [facility] Start: 02-21-2020 Education 13 [facility] Start: 1960 Sex Assigned At Not on file [facility] Start: 09-07-2021 End: 05-27-2022 Exposure to SARS-CoV-2 (event) Not sure [facility] Start: 05-27-2020 End: 08-18-2022 Tobacco smoking status NHIS Unknown if ever smoked [facility] Start: 02-11-2019 Spouse/ Signif icant Other [facility] Start: 1960 Sex Assigned At Female W [facility] Start: 05-11-2019 End: 03-22-2022 Tobacco use and exposure Smokeless tobacco non-user [facility] Start: 06-12-2014 None [facility] Start: 07-28-2014 Non-smoker [facility] Start: 10-31-2022 End: 05-03-2024 History of Social function [facility] Work Phone: Start: 10-31-2022 End: 05-03-2024 Tobacco use panel [facility] Work Phone: Adult Depression Screening Assessment 0 [facility] Work Phone: Do you belong to any clubs or organizations such as zoroastrianism groups, unions, fraternal or athletic groups, or school groups? No [facility] Work Phone: Are you now , , , , never or living with a partner? [facility] Work Phone: Do you feel stress - tense, restless, nervous, or anxious, or unable to sleep at night because your mind is troubled all the time - these days [OSQ] To some extent [facility] Work Phone: (I/We) worried val er (my/our) food would run out before (I/we) got money to buy more. Never true [facility] Work Phone: Start: 09-17-2024 Sex Female (finding) [facility] NEGATED: Highlighted row [facility] Medical Equipment Procedure Code Equipment Code Equipment Origin al Text Equipment Identifier Dates Pin Clamp 5 Hole - [id number] Start: 05-03-2024 Pin Clamp 5 Hole - [id number] Start: 05-03-2024 Graft Bn Augment Inj 3.0cc - [id number] Start: 05-07-2024 Locking Screw 3. 5mm / T15 / L65mm [id number] Start: 05-07-2024 Proximal Postero medial Tibia Plate R 3.5mm 82mm 5 Holes [id number] Start: 05-07-2024 Locking Screw 3. 5mm / T15 / L70mm [id number] Start: 05-07-2024 Locking Screw 3. 5mm / T15 / L60mm [id number] Start: 05-07-2024 Locking Screw 3. 5mm / T15 / L20mm [id number] Start: 05-07-2024 [place] Pin Bone 6.8t895tn - [id number] Start: 05-03-2024 [place] Pin Bone 6.4s529df - [id number] Start: 05-03-2024 Screw Bone 3.5mm 32mm Titanium Cortical Lock Nonsterile Axsos 3 - [id number] Start: 05-07-2024 Screw Bone 3.5mm 40mm Titanium Cortical Nonsterile Axsos 3 - [id number] Start: 05-07-2024 Goals Date Patient Goal Desired Activity /State Functional Status Date Assessment Result Facility 05-09-2024 Are you deaf, or do you have serious difficulty hearing 05/09/2024 2:33 PM Saritha Gunderson RN [facility] 05-09-2024 Are you blind, or do you have serious difficulty seeing, even when wearing glasses No 05/09/2024 2:33 PM Saritha Gunderson RN No [facility] 05-09-2024 Do you have serious difficulty walking or climbing stairs No 05/09/2024 2:33 PM Saritha Gunderson RN No [facility] 05-09-2024 Do you have difficul ty dressing or bathing No 05/09/2024 2:33 PM Saritha Gunderson RN No [facility] 05-09-2024 Because of a physica l, mental, or emotional condition, do you have difficulty doing errands alone such as visiting a physician's office or shopping Yes 05/09/2024 2:33 PM Saritha Gunderson RN Yes [facility] Mental Status Date Assessment Result Facility 05-09-2024 Because of a physica l, mental, or emotional condition, do you have serious difficulty concentrating, remembering, or making decisions Yes 05/09/2024 2:33 PM Saritha Gunderson RN Yes [facility] 08-26-2022 Cognitive function Awake;Alert;Appropriat e [facility] Work Phone: 08-26-2022 Cognitive function Arousable To Voice/Nam [facility] Work Phone: Clinical Notes 05-11-2019 to 11-25-2024 Sydni Waggoner MD - 11/25/2024 1:45 PM EDT Note Date & Type Note Facility 11-25-2024 History of Present illness Narrative Images from the original note were not included. ORTHOPAEDIC SURGERY OFFICE NOTE: SURGERY: 1) Open Treatment of the Right Periprosthetic Proximal Tibia Fracture with Internal Fixation on 05/07/2024 2) Right Lower Extremity Knee-Spanning Uniplanar External Fixator on 05/07/2024 3) Removal of the Right Lower Extremity Knee-Spanning Uniplanar External Fixator on 07/02/2024 CHIEF COMPLAINT: Routine Post-Operative Follow-Up HISTORY OF PRESENT ILLNESS: Zackery Nunez is a 64 year old female who presents for routine post-operative follow-up from the above listed operation (see Surgery above for full details). At today's appointment, the patient reports doing well. The patient endorses controlled pain to the right knee. The patient is ambulatory. The patient denies fevers and chills. The patient has no additional orthopaedic traumatic complaints at this time. Reviewed nursing note and current pain scale. PAST MEDICAL HISTORY Diagnosis Date Anxiety disorder Arthritis Chronic back pain Dr. Burks-pain management Depressive disorder, not elsewhere classified Diabetes (HCC) Pt reports she takes cinnamin tabs to manage her diabetes Essential hypertension, benign Fibromyalgia Glaucoma IBS (irritable bowel syndrome) Migraine, unspecified, without mention of intractable migraine without mention of status migrainosus PONV (postoperative nausea and vomiting) Pure hypercholesterolemia Rheumatoid arthritis (HCC) Sleep apnea pt states she snores frequently;though never worked-up for RUPESH Snoring PAST SURGICAL HISTORY Procedure Laterality Date [...] Never Smokeless tobacco: Never Vaping Use Vaping status: Never Used Substance Use Topics Alcohol use: No Drug use: No MEDICATIONS: Current Outpatient Medications Medication Sig hyoscyamine sublingual (LEVSIN/SL) 0.125 mg Dissolve 1 tablet under the tongue every 4 hours as needed. promethazine (PHENERGAN) 25 mg tablet Take 1 tablet by mouth every 6 hours as needed. citalopram (CELEXA) 40 mg tablet Take 1 tablet by mouth once daily. acetaminophen (TYLENOL) 325 mg tablet Take 2 tablets by mouth every 6 hours as needed for pain. polyethylene glycol 3350 17 gram packet Take 1 Packet by mouth once daily as needed. Dissolve dose in 4 - 8 ounces of liquid and take as directed. lisinopril (ZESTRIL) 10 mg tablet Take 1 tablet by mouth once daily. estradiol (ESTRACE) 0.01 % (0.1 mg/gram) vaginal cream Use 3 g vaginally once daily. atorvastatin (LIPITOR) 10 mg tablet Take 1 tablet by mouth once daily. (Patient taking differently: Take 10 mg by mouth daily at bedtime.) busPIRone HCl 30 mg tablet Take 1 tablet by mouth two times a day. omeprazole (PRILOSEC) 40 mg capsule Take 40 mg by mouth once daily. SUMAtriptan (IMITREX) 50 mg tablet Take 1 tablet (50 mg) by mouth as needed. oxyCODONE-acetaminophen (PERCOCET) 5-325 mg tablet 1 tablet three times daily as needed. upadacitinib (RINVOQ ORAL) Take 15 mg by mouth. amitriptyline (ELAVIL) 10 mg tablet Take 1 tablet by mouth daily at bedtime. Cetirizine 10 mg cap Take by mouth. CALCIUM POLYCARBOPHIL (FIBER LAXATIVE ORAL) Take by mouth. multivitamin tablet Take 1 tablet by mouth once daily. latanoprost (XALATAN) 0.005 % ophthalmic solution 1 Drop daily at bedtime. docusate sodium (COLACE) 100 mg capsule Take 100 mg by mouth twice daily. buprenorphine (BUTRANS) 20 mcg/hour transdermal patch Apply 1 Patch as directed one time a week for 7 days. Last APPLIED 05/08 gabapentin (NEURONTIN) 300 mg capsule Take 3 capsules by mouth daily at bedtime for 30 days. gabapentin (NEURONTIN) 300 mg capsule Take 3 capsules by mouth once daily for 30 days. Daily at noon No current facility-administered medications for this visit. ALLERGIES: ALLERGIES Allergen Reactions Compazine [Prochlor* Other: See Comments Pt reports it makes more nausea Vaibhav [Fexofenadi* Intolerance Augmentin [Amoxicil* Intolerance Bentyl [Dicyclomine* GI Upset Biaxin [Clarithromy* Intolerance Ceclor [Cefaclor] Intolerance Celebrex [Celecoxib] Intolerance Colestipol Other: See Comments shaky/headaches/increased nausea Doxepin Intolerance Fentanyl Intolerance Pt doesn't remember the reaction Humira [Adalimumab] Intolerance Levaquin [Levofloxa* Intolerance Metformin GI Upset Gi intolerance Plaquenil [Hydroxyc* Intolerance Seldane Intolerance Septra [Sulfamethox* Intolerance Sulfa (Sulfonamide * Intolerance Vibramycin [Doxycyc* Intolerance Vicodin [Hydrocodon* Intolerance PHYSICAL EXAMINATION: Resp 18 Ht 5' 7 (1.70m) Wt 201 lb (91.2kg) BMI 31.47 kg/(m^2). General Appearance: No acute distress Skin: See Extremity exam below for full details Right Lower Extremity: Healed surgical incisions to the right knee. There is no fátima-incisional erythema nor drainage. Compartments of the thigh and leg are soft and compressible. The patient has active knee flexion, knee extension, ankle dorsiflexion, ankle plantarflexion and extensor hallucis longus motor function. Sensation intact to light touch in the sural, saphenous, superficial peroneal, deep peroneal and tibial nerve distributions. Brisk capillary refill to the digits of the foot. IMAGES: Recent Results (from the past 36 hours) XR KNEE LIMITED 2V AP/LAT RIGHT Narrative 2-view right knee x-rays demonstrate maintained length, alignment and rotation of the right periprosthetic proximal tibia fracture with intact orthopaedic implants. ASSESSMENT AND PLAN: 1. 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, subsequent encounter - ICD9: V54.89, ICD10: M97.11XD -2-view right knee x-rays ordered, obtained and independently interpreted (see image interpretation above for full details) -Weight-bearing as tolerated with the right lower extremity -Ambulation assistance devices as needed for safe mobilization -Pain control with NSAIDs and acetaminophen as needed -Ice and elevation of the right lower extremity for pain control and swelling reduction -Physical therapy/home exercises for continued rehabilitation -The patient will follow-up in 5 months or sooner if needed OARRS reviewed Will continue to monitor patient for 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, subsequent encounter (primary encounter diagnosis), patient to schedule visit as per follow up discussed. All patient questions and concerns were answered and addressed The above reflects an independent exam and review. The patient was personally seen and examined. Part of the HPI, ROS, exam and impression may have been copied from personal previous clinical notes and remains pertinent. Current changes have been made and documented today. Other parts or data were deleted if not relevant for today. Plan as outlined. Sydni Waggoner MD Orthopaedic Trauma Surgery 11/25/2024 8:31 PM documented in this encounter [facility] 11-25-2024 Note HNO ID: [id number] Author: SYDNI WAGGONER MD Service: ? Author Type: Physician Type: Progress Notes Filed: 11/25/2024 20:33 Note Text: ORTHOPAEDIC SURGERY OFFICE NOTE: SURGERY: 1) Open Treatment of the Right Periprosthetic Proximal Tibia Fracture with Internal Fixation on 05/07/2024 2) Right Lower Extremity Knee-Spanning Uniplanar External Fixator on 05/07/2024 3) Removal of the Right Lower Extremity Knee-Spanning Uniplanar External Fixator on 07/02/2024 CHIEF COMPLAINT: Routine Post-Operative Follow-Up HISTORY OF PRESENT ILLNESS: Zackery Nunez is a 64 year old female who presents for routine post-operative follow-up from the above listed operation (see Surgery above for full details). At today's appointment, the patient reports doing well. The patient endorses controlled pain to the right knee. The patient is ambulatory. The patient denies fevers and chills. The patient has no additional orthopaedic traumatic complaints at this time. Reviewed nursing note and current pain scale. PAST MEDICAL HISTORY Diagnosis Date Anxiety disorder Arthritis Chronic back pain Dr. Burks-pain management Depressive disorder, not elsewhere classified Diabetes (HCC) Pt reports she takes cinnamin tabs to manage her diabetes Essential hypertension, benign Fibromyalgia Glaucoma IBS (irritable bowel syndrome) Migraine, unspecified, without mention of intractable migraine without mention of status migrainosus PONV (postoperative nausea and vomiting) Pure hypercholesterolemia Rheumatoid arthritis (HCC) Sleep apnea pt states she snores frequently;though never worked-up for RUPESH Snoring PAST SURGICAL HISTORY Procedure Laterality Date APPENDECTOMY 12/18/2014 Dr. Blakely APPENDECTOMY HX ARTHRP KNE CONDYLEANDPLATU MEDIALANDLAT COMPARTMENTS 04/22/2014 right COLONOSCOPY 05/27/2022 repeat in 10 years COLONOSCOPY FLX DX W/COLLJ SPEC WHEN PFRMD 10/01/2012 suboptimal - poor prep EGD ESOPHAGOGASTRODUODENOSCOPY TRANSORAL DIAGNOSTIC 07/30/2014 EGD JOINT REPLACEMENT HX LAPAROSCOPY SURG CHOLECYSTECTOMY 12/31/1993 PAST SURGICAL HISTORY OF 1995 knee, right arthroscopy TONSILLECTOMY HX TUBAL LIGATION HX 08/11/1997 VAGINAL HYSTERECTOMY FAMILY HISTORY Problem Relation Age of Onset Diabetes Mother Hypertension Mother Heart Attack Mother Diabetes Father Hypertension Father Heart Attack Father COPD Sister other (sjorgens) Sister affects vision other (Other) Sister lupus Bipolar disorder Daughter Diabetes Maternal Grandmother Social History Tobacco Use Smoking status: Never Smokeless tobacco: Never Vaping Use Vaping status: Never Used Substance Use Topics Alcohol use: No Drug use: No MEDICATIONS: Current Outpatient Medications Medication Sig hyoscyamine sublingual (LEVSIN/SL) 0.125 mg Dissolve 1 tablet under the tongue every 4 hours as needed. promethazine (PHENERGAN) 25 mg tablet Take 1 tablet by mouth every 6 hours as needed. citalopram (CELEXA) 40 mg tablet Take 1 tablet by mouth once daily. acetaminophen (TYLENOL) 325 mg tablet Take 2 tablets by mouth every 6 hours as needed for pain. polyethylene glycol 3350 17 gram packet Take 1 Packet by mouth once daily as needed. Dissolve dose in 4 - 8 ounces of liquid and take as directed. lisinopril (ZESTRIL) 10 mg tablet Take 1 tablet by mouth once daily. estradiol (ESTRACE) 0.01 % (0.1 mg/gram) vaginal cream Use 3 g vaginally once daily. atorvastatin (LIPITOR) 10 mg tablet Take 1 tablet by mouth once daily. (Patient taking differently: Take 10 mg by mouth daily at bedtime.) busPIRone HCl 30 mg tablet Take 1 tablet by mouth two times a day. omeprazole (PRILOSEC) 40 mg capsule Take 40 mg by mouth once daily. SUMAtriptan (IMITREX) 50 mg tablet Take 1 tablet (50 mg) by mouth as needed. oxyCODONE-acetaminophen (PERCOCET) 5-325 mg tablet 1 tablet three times daily as needed. upadacitinib (RINVOQ ORAL) Take 15 mg by mouth. amitriptyline (ELAVIL) 10 mg tablet Take 1 tablet by mouth daily at bedtime. Cetirizine 10 mg cap Take by mouth. CALCIUM POLYCARBOPHIL (FIBER LAXATIVE ORAL) Take by mouth. multivitamin tablet Take 1 tablet by mouth once daily. latanoprost (XALATAN) 0.005 % ophthalmic solution 1 Drop daily at bedtime. docusate sodium (COLACE) 100 mg capsule Take 100 mg by mouth twice daily. buprenorphine (BUTRANS) 20 mcg/hour transdermal patch Apply 1 Patch as directed one time a week for 7 days. Last APPLIED 05/08 gabapentin (NEURONTIN) 300 mg capsule Take 3 capsules by mouth daily at bedtime for 30 days. gabapentin (NEURONTIN) 300 mg capsule Take 3 capsules by mouth once daily for 30 days. Daily at noon No current facility-administered medications for this visit. ALLERGIES: ALLERGIES Allergen Reactions Compazine [Prochlor* Other: See Comments Pt reports it makes more nausea Vaibhav [Fexofenadi* Intolerance Augmentin [Amoxicil* Intolerance Bentyl (more content not included)... [facility] 11-11-2024 Evaluation note Diagnosis Onset Date Resolution Left knee DJD acute November 11, 2 025 1:13pm Chronic pain syndrome chronic November 11, 2024 1:13pm Rheumatoid arthritis chronic November 11, 2024 1:13pm [facility] Work Phone: 1(292) 726-518705-08-2025 Radiology Diagnostic study note [facility] Imaging Services [address] [place] [id number] Knee 1 or 2 Views MR#: [id number] Acct: [id number] Name: ZACKERY NUNEZ ESPINOZA Rep #: [id number] : 1960 F 64 From: Manuel Jiang MD PCP: Dr. Mikayla Strange MD Status: REG C RYAN Study:Knee 1 or 2 Views Date of Exam: Exam# [id number] Ordering Dr: Tisha Ward MD PROCEDURE: KNEE 1 OR 2 VIEWS 10/30/2024 REASON FOR EXAM: BILAT KNEE OA TECHNIQUE: 2 view(s) of the right knee COMPARISON: Right knee x-ray dated 06/24/2024. FINDINGS: Right knee hardware from right knee arthroplasty and ORIF in place. On the lateral view, lucency remains extending into the tibial plateau. Lucency seen through the patella bone. These could represent areas of nonhealing fracture. No suprapatellar joint effusion is seen. RAD/Knee 1 or 2 Views IMPRESSION: As above. Reading Location: [place] CC: Dr. Latia Ward MD; Dr. Mikayla Strange MD ~ Digital Marketing Manager: Signed [facility]05-08-2025 Radiology Diagnostic study note [facility] Imaging Services [address] [place] [address] Knee 1 or 2 Views MR#: [id number] Acct: [id number] Name: ZACKERY NUNEZ Rep #: [id number] : 1960 F 64 From: Roddy Daniels MD PCP: Dr. Mikayla Stragne MD Status: REG C LI Study:Knee 1 or 2 Views Date of Exam: Exam# [id number] Ordering Dr: Tisha Ward MD PROCEDURE: KNEE 1 OR 2 VIEWS 10/30/2024 REASON FOR EXAM: B/L KNEE OA TECHNIQUE: Two views left knee COMPARISON: None available FINDINGS: No fracture or dislocation. Medial and lateral compartment joint spaces appear within limits. Mild spurring at the tibial spines. Severe joint space narrowing suggested of the patellofemoral compartment with [id number] appearing contact, buttressing and large osteophyte formation. Enthesopathic change at the quadriceps side of the patella. Possible small joint effusion. RAD/Knee 1 or 2 Views IMPRESSION: Severe appearing osteoarthrosis of the patellofemoral compartment as above. Reading Location: [facility] CC: Dr. Latia Ward MD; Dr. Mikayla Strange MD ~ Digital Marketing Manager: Signed [facility]04-29-2025 Instructions* Patient Instructions* Sayda Carr APRN.CNP - 10/22/2024 2:11 PM EDT Begin daily calcium and vitamin D supplements as discussed. Aim for approximately 4531-5259 mg of calcium with 400 units of vitamin D each day. Repeat dexa scan in 2 years. documented in [facility] encounter[facility]25 NoteHNO ID: [id number] Author: SAYDA CARR APRN.CNP Service: ? Author Type: Nurse Practitioner Type: Progress Notes Filed: 10/22/2024 17:48 Note Text: This is a 64 year old female who presents today with: Zackery is a 64-year-old female with a history of rheumatoid arthritis, fibromyalgia, and GERD, presenting for follow-up on recent DEXA scan results HISTORY OF PRESENT ILLNESS: Bone Density: - Recent DEXA scan showed normal bone mass. However, high 10 year FRAX risk. - Previously took calcium and vitamin D supplements but discontinued. - Denies current use of bisphosphonates. GERD: - Takes omeprazole daily for GERD management. - Experiences frequent upset stomach and nausea. - Has tried Zantac in the past with less relief. Left Leg Fracture: - Sustained a left leg fracture after falling through a deck board while attempting to rescue a cat. Had follow-up yesterday. - Recent x-ray showed good healing progress. PAST MEDICAL HISTORY: PAST MEDICAL HISTORY Diagnosis Date Anxiety disorder Arthritis Chronic back pain Dr. Burks-pain management Depressive disorder, not elsewhere classified Diabetes (HCC) Pt reports she takes cinnamin tabs to manage her diabetes Essential hypertension, benign Fibromyalgia Glaucoma IBS (irritable bowel syndrome) Migraine, unspecified, without mention of intractable migraine without mention of status migrainosus PONV (postoperative nausea and vomiting) Pure hypercholesterolemia Rheumatoid arthritis (HCC) Sleep apnea pt states she snores frequently;though never worked-up for RUPESH Snoring PAST SURGICAL HISTORY Procedure Laterality Date [...] HX TUBAL LIGATION HX 08/11/1997 VAGINAL HYSTERECTOMY ALLERGIES Compazine [Prochlorperazine Edisylate], Vaibhav [Fexofenadine Hcl], Augmentin [Amoxicillin-Pot Clavulanate], Bentyl [Dicyclomine Hcl], Biaxin [Clarithromycin], Ceclor [Cefaclor], Celebrex [Celecoxib], Colestipol, Doxepin, Fentanyl, Humira [Adalimumab], Levaquin [Levofloxacin], Metformin, Plaquenil [Hydroxychloroquine Sulfate], Seldane, Septra [Sulfamethoxazole-Trimethoprim], Sulfa (Sulfonamide Antibiotics), Vibramycin [Doxycycline Calcium], and Vicodin [Hydrocodone-Acetaminophen] MEDICATIONS Current Outpatient Medications Medication Sig hyoscyamine sublingual (LEVSIN/SL) 0.125 mg Dissolve 1 tablet under the tongue every 4 hours as needed. promethazine (PHENERGAN) 25 mg tablet Take 1 tablet by mouth every 6 hours as needed. citalopram (CELEXA) 40 mg tablet Take 1 tablet by mouth once daily. buprenorphine (BUTRANS) 20 mcg/hour transdermal patch Apply 1 Patch as directed one time a week for 7 days. Last APPLIED 05/08 acetaminophen (TYLENOL) 325 mg tablet Take 2 tablets by mouth every 6 hours as needed for pain. gabapentin (NEURONTIN) 300 mg capsule Take 3 capsules by mouth daily at bedtime for 30 days. gabapentin (NEURONTIN) 300 mg capsule Take 3 capsules by mouth once daily for 30 days. Daily at noon polyethylene glycol 3350 17 gram packet Take 1 Packet by mouth once daily as needed. Dissolve dose in 4 - 8 ounces of liquid and take as directed. lisinopril (ZESTRIL) 10 mg tablet Take 1 tablet by mouth once daily. estradiol (ESTRACE) 0.01 % (0.1 mg/gram) vaginal cream Use 3 g vaginally once daily. atorvastatin (LIPITOR) 10 mg tablet Take 1 tablet by mouth once daily. (Patient taking differently: Take 10 mg by mouth daily at bedtime.) busPIRone HCl 30 mg tablet Take 1 tablet by mouth two times a day. omeprazole (PRILOSEC) 40 mg capsule Take 40 mg by mouth once daily. SUMAtriptan (IMITREX) 50 mg tablet Take 1 tablet (50 mg) by mouth as needed. oxyCODONE-acetaminophen (PERCOCET) 5-325 mg tablet 1 tablet three times daily as needed. upadacitinib (RINVOQ ORAL) Take 15 mg by mouth. amitriptyline (ELAVIL) 10 mg tablet Take 1 tablet by mouth daily at bedtime. Cetirizine 10 mg cap Take by mouth. [...] Sister other (sjorgens) Sister affects vision other (Ot (more content not included)...[facility]04-29-2025 History of Present illness Narrative* Sayda Carr, EVERARDO.MATH AND SCIENCES DEPARTMENT CHAIR - 10/22/2024 1:45 PM EDT This is a 64 year old female who presents today with: Zackery is a 64-year-old female with a history of rheumatoid arthritis, fibromyalgia, and GERD, presenting for follow-up on recent DEXA scan results HISTORY OF PRESENT ILLNESS: Bone Density: - Recent DEXA scan showed normal bone mass. However, high 10 year FRAX risk. - Previously took calcium and vitamin D supplements but discontinued. - Denies current use of bisphosphonates. GERD: - Takes omeprazole daily for GERD management. - Experiences frequent upset stomach and nausea. - Has tried Zantac in the past with less relief. Left Leg Fracture: - Sustained a left leg fracture after falling through a deck board while attempting to rescue a cat. Had follow-up yesterday. - Recent x-ray showed good healing progress. PAST MEDICAL HISTORY: PAST MEDICAL HISTORY Diagnosis Date Anxiety disorder Arthritis Chronic back pain Dr. Burks-pain management Depressive disorder, not elsewhere classified Diabetes (HCC) Pt reports she takes cinnamin tabs to manage her diabetes Essential hypertension, benign Fibromyalgia Glaucoma IBS (irritable bowel syndrome) Migraine, unspecified, without mention of intractable migraine without mention of status migrainosus PONV (postoperative nausea and vomiting) Pure hypercholesterolemia Rheumatoid arthritis (HCC) Sleep apnea pt states she snores frequently;though never worked-up for RUPESH Snoring PAST SURGICAL HISTORY Procedure Laterality Date APPENDECTOMY 12/18/2014 Dr. Blakely APPENDECTOMY HX ARTHRP KNE CONDYLE&PLATU MEDIAL&LAT COMPARTMENTS 04/22/2014 right COLONOSCOPY 05/27/2022 repeat in 10 years COLONOSCOPY FLX DX W/COLLJ SPEC WHEN PFRMD 10/01/2012 suboptimal - poor prep EGD ESOPHAGOGASTRODUODENOSCOPY TRANSORAL DIAGNOSTIC 07/30/2014 EGD JOINT REPLACEMENT HX LAPAROSCOPY SURG CHOLECYSTECTOMY 12/31/1993 PAST SURGICAL HISTORY OF 1995 knee, right arthroscopy TONSILLECTOMY HX TUBAL LIGATION HX 08/11/1997 VAGINAL HYSTERECTOMY ALLERGIES Compazine [Prochlorperazine Edisylate], Vaibhav [Fexofenadine Hcl], Augmentin [Amoxicillin-Pot Clavulanate], Bentyl [Dicyclomine Hcl], Biaxin [Clarithromycin], Ceclor [Cefaclor], Celebrex [Celecoxib], Colestipol, Doxepin, Fentanyl, Humira [Adalimumab], Levaquin [Levofloxacin], Metformin, Plaquenil [Hydroxychloroquine Sulfate], Seldane, Septra [Sulfamethoxazole-Trimethoprim], Sulfa (Sulfonamide Antibiotics), Vibramycin [Doxycycline Calcium], and Vicodin [Hydrocodone-Acetaminophen] MEDICATIONS Current Outpatient Medications Medication Sig hyoscyamine sublingual (LEVSIN/SL) 0.125 mg Dissolve 1 tablet under the tongue every 4 hours as needed. promethazine (PHENERGAN) 25 mg tablet Take 1 tablet by mouth every 6 hours as needed. citalopram (CELEXA) 40 mg tablet Take 1 tablet by mouth once daily. buprenorphine (BUTRANS) 20 mcg/hour transdermal patch Apply 1 Patch as directed one time a week for7 days. Last APPLIED 05/08 acetaminophen (TYLENOL) 325 mg tablet Take 2 tablets by mouth every 6 hours as needed for pain. gabapentin (NEURONTIN) 300 mg capsule Take 3 capsules by mouth daily at bedtime for 30 days. gabapentin (NEURONTIN) 300 mg capsule Take 3 capsules by mouth once daily for 30 days. Daily at noon polyethylene glycol 3350 17 gram packet Take 1 Packet by mouth once daily as needed. Dissolve dose in 4 - 8 ounces of liquid and take as directed. lisinopril (ZESTRIL) 10 mg tablet Take 1 tablet by mouth once daily. estradiol (ESTRACE) 0.01 % (0.1 mg/gram) vaginal cream Use 3 g vaginally once daily. atorvastatin (LIPITOR) 10 mg tablet Take 1 tablet by mouth once daily. (Patient taking differently:Take 10 mg by mouth daily at bedtime.) busPIRone HCl 30 mg tablet Take 1 tablet by mouth two times a day. omeprazole (PRILOSEC) 40 mg capsule Take 40 mg by mouth once daily. SUMAtriptan (IMITREX) 50 mg tablet Take 1 tablet (50 mg) by mouth as needed. oxyCODONE-acetaminophen (PERCOCET) 5-325 mg tablet 1 tablet three times daily as needed. upadacitinib (RINVOQ ORAL) Take 15 mg by mouth. amitriptyline (ELAVIL) 10 mg tablet Take 1 tablet by mouth daily at bedtime. Cetirizine 10 mg cap Take by mouth. [...] Never Smokeless tobacco: Never Vaping Use Vaping status: Never Used Substance Use Topics Alcohol use: No Drug use: No REVIEW OF SYSTEMS Musculoskeletal: (+) back pain, (+) generalized pain Gastrointestinal: (+) heartburn, (+) nausea EXAM: BP 108/62 Pulse 71 Resp 16 SpO2 99% PHYSICAL EXAM: General Appearance: Well appearing, alert, in no acute distress, well-hydrated, well nourished.. Skin: Skin color, texture, turgor normal, no suspicious rashes or lesions. Head: Normocephalic, no masses, lesions, tenderness or abnormalities. Eyes: Anicteric sclera. Extraocular movements are intact. Neurologic: Gait normal. ASSESSMENT/PLAN 1. Fracture Risk Assessment Score (FRAX) indicating greater than 20% risk for major osteoporosis-related fracture (Z91.89) - Recent bone density test shows normal bone density overall, but loss in the right femoral neck and right total hip compared to 2019 results. - 10-year probability of major osteoporosis-related fracture is greater than 20%. - Discussed treatment options including calcium and vitamin D supplementation versus prescription medication (Fosamax). - Advised starting calcium 5953-1266 mg daily and vitamin D 400 units daily. - Discussed Fosamax, a once-weekly oral bisphosphonate, including administration instructions: takeon an empty stomach, remain upright for at least 30 minutes post-ingestion. - Noted potential exacerbation of gastrointestinal symptoms with Fosamax; patient currently on omeprazole daily for heartburn management. - Patient agrees to start calcium and vitamin D supplementation; will monitor response before considering Fosamax. - Aware that she will need repeat study in 2 years. Discussed treatment plan and patient voices understanding. Patient's questions answered appropriately. Medications and potential side effects were discussed and patient voices understanding. Return to the office as scheduled or as needed for worsening/no improvement. Sayda Carr APRN.MATH AND SCIENCES DEPARTMENT CHAIR Recording using [employer] software for draft documentation of the visit was discussed with the patient/authorized patient support representative; all questions welcomed and answered. Patient/authorized patient support representative agreed to proceed documented in this encounterSelect [facility]04-28-2025 NoteHNO ID: [id number] Author: GA BLACKBURN PA-C Service: ? Author Type: Physician Barrel Loader Type: Progress Notes Filed: 10/21/2024 15:06 Note Text: Orthopedic Post Operative Note DOS:04/2024 Procedure: Application of external fixator right lower extremity, conversion to ORIF right tibial plateau status post right total knee arthroplasty. Surgeon:MANA Subjective: Patient is a 64 years old seen in follow up now almost 6 months. She is doing well and continues to improve. Occasional start up pain through the medial aspect of the right knee. But no mechanical symptoms and good stability is noted. Resp 20 Ht 5' 7 (1.70m) Wt 202 lb (91.6kg) BMI 31.63 kg/(m2). Exam: Alert oriented NAD. Medial plateau incisions healing well ROM:0-115 Ligaments intact to valgus and varus stresses particularly at 30 and 60 degrees flexion. Homans' sign is negative Diagnostic Imaging: Stable appearing periprosthetic fracture right total knee arthroplasty with ORIF medial tibial plateau fracture Assessment:S/P periprosthetic right total knee arthroplasty medial tibial plateau fracture (04/2024) doing well and making good post operative recovery. Plan: Functional Plan: Continue to work for range of motion and strength and BMI control. Assistance Devices: Cane or walking stick for balance Physical/Occupational Therapy: Home exercise program to avoid repetitive impact Wound Care: N/A Pain Control: Ice, heat, extra strength Tylenol Additional: Follow-up at her 1 year anniversary with repeat 2 views right knee. Ga JEAN-B[facility]TISTE-[facility]04-28-2025 History of Present illness Narrative* Ga Blackburn PA-C - 10/21/2024 2:49 PM EDT Orthopedic Post Operative Note DOS:04/2024 Procedure: Application of external fixator right lower extremity, conversion to ORIF right tibial plateau status post right total knee arthroplasty. Surgeon:MANA Subjective: Patient is a 64 years old seen in follow up now almost 6 months. She is doing well and continues to improve. Occasional start up pain through the medial aspect of the right knee. But no mechanical symptoms and good stability is noted. Resp 20 Ht 5' 7 (1.70m) Wt 202 lb (91.6kg) BMI 31.63 kg/(m^2). Exam: Alert oriented NAD. Medial plateau incisions healing well ROM:0-115 Ligaments intact to valgus and varus stresses particularly at 30 and 60 degrees flexion. Homans' sign is negative Diagnostic Imaging: Stable appearing periprosthetic fracture right total knee arthroplasty with ORIF medial tibial plateau fracture Assessment:S/P periprosthetic right total knee arthroplasty medial tibial plateau fracture (04/2024) doing well and making good post operative recovery. Plan: Functional Plan: Continue to work for range of motion and strength and BMI control. Assistance Devices: Cane or walking stick for balance Physical/Occupational Therapy: Home exercise program to avoid repetitive impact Wound Care: N/A Pain Control: Ice, heat, extra strength Tylenol Additional: Follow-up at her 1 year anniversary with repeat 2 views right knee. Ga Blackburn PA-C documented in this encounterSelect [facility]04-23-2025 Telephone encounter Note * Telephone Encounter - Soraida Escudero LPN - 10/16/2024 8:54 AM EDT Phoned patient went over results, notes from Sayda Carr AUTO FORMER MACHINE OPERATOR with understanding. Scheduled appt for 10/22 with AUTO FORMER MACHINE OPERATOR to discuss options. [facility]04-23-2025 Miscellaneous Notes* Telephone Encounter - Soraida Escudero LPN - 10/16/2024 8:54 AM EDT Phoned patient went over results, notes from Sayda Carr AUTO FORMER MACHINE OPERATOR with understanding. Scheduled appt for 10/22 with AUTO FORMER MACHINE OPERATOR to discuss options. * Telephone Encounter - Sayda Carr APRN.CNP - 10/15/2024 6:20 PM EDT Can please let patient know that we received her bone density results. It does show an increased fracture risk. We should consider starting treatment. We should have her in for an appt to further discuss. documented in this encounterSelect [facility]04-22-2025 Telephone encounter Note * Telephone Encounter - Sayda Carr APRN.CNP - 10/15/2024 6:20 PM EDT Can please let patient know that we received her bone density results. It does show an increased fracture risk. We should consider starting treatment. We should have her in for an appt to further discuss. [facility] Work Phone: 1(857) 308-913804-18-2025 History of Present illness Narrative* Phill Garvin RT(R) - 10/11/2024 1:40 PM EDT Radiology Service Progress Note PATIENT NAME: Zackery Nunez DATE OF SERVICE: October 11, 2024 TIME: 1:49 PM PATIENT IDENTITY VERIFICATION COMPLETED USING TWO (2) IDENTIFIERS: Name and Date of confirmedby patient verbally. FALL SCREENING: Has the patient had 2 falls in the last year or 1 fall with injury or currently using an Ambulatory Assistive Device (Walker, Cane, Wheelchair, Crutches, etc.)? No PATIENT GENDER DATA: Assigned female at . status: : No status:NO. PATIENT RELEVANT IMPLANT DATA REVIEWED: Not Applicable PATIENT PRESENTS WITH AN IMPLANTABLE OR ATTACHED SENIOR APPLICATIONS ANALYST: No RADIOLOGY DEPARTMENT: Bone Density PERIPHERAL IV DATA: Not applicable SIGNED BY: RT Domingo(R) October 11, 2024 1:49 PM documented in this encounterSelect [facility]04-18-2025 NoteHNO ID: [id number] Author: PHILL GARVIN RT(R) Service: ? Author Type: Technologist Type: Progress Notes Filed: 10/11/2024 14:00 Note Text: Radiology Service Progress Note PATIENT NAME: Zackery Nunez DATE OF SERVICE: October 11, 2024 TIME: 1:49 PM PATIENT IDENTITY VERIFICATION COMPLETED USING TWO (2) IDENTIFIERS: Name and Date of confirmed by patient verbally. FALL SCREENING: Has the patient had 2 falls in the last year or 1 fall with injury or currently using an Ambulatory Assistive Device (Walker, Cane, Wheelchair, Crutches, etc.)? No PATIENT GENDER DATA: Assigned female at . status: : No status: NO. PATIENT RELEVANT IMPLANT DATA REVIEWED: Not Applicable PATIENT PRESENTS WITH AN IMPLANTABLE OR ATTACHED SENIOR APPLICATIONS ANALYST: No RADIOLOGY DEPARTMENT: Bone Density PERIPHERAL IV DATA: Not applicable SIGNED BY: RT Domingo(R) October 11, 2024 1:[address] [facility]02-24-2025 Miscellaneous Notes* Telephone Encounter - Adeline Hensley RN - 08/19/2024 8:18 AM EST Pt called and is notified of providers results and instructions. Pt voices understanding. Please send Rx to [facility] in [place]. Adeline Hensley RN * Telephone Encounter - Mikayla Strange MD - 08/19/2024 8:02 AM EST Has a very resistant uti. Has had issues with levaquin but says has used cipro in the past. Would switch to that since other antibiotics it is sensitive to are iv and would require hospitalization totreat. documented in this encounterSelect [facility]02-24-2025 Telephone encounter Note * Telephone Encounter - Adeline Hensley RN - 08/19/2024 8:18 AM EST Pt called and is notified of providers results and instructions. Pt voices understanding. Please send Rx to [facility] in [place]. Adeline Hensley RN [facility]02-24-2025 Telephone encounter Note* Telephone Encounter - Mikayla Strange MD - 08/19/2024 8:02 AM EST Has a very resistant uti. Has had issues with levaquin but says has used cipro in the past. Would switch to that since other antibiotics it is sensitive to are iv and would require hospitalization totreat. [facility]02-21-2025 Telephone encounter Note* Telephone Encounter - Evelyn Castaneda MA - 08/16/2024 9:29 AM EST Patient informed to take Macrobid. She agreed. Please cancel Rx that was [facility] and please send to local [facility]. Evelyn Castaneda MA [facility]02-21-2025 Miscellaneous Notes* Telephone Encounter - Evelyn Castaneda MA - 08/16/2024 9:29 AM EST Patient informed to take Macrobid. She agreed. Please [facility] and [facility] send to local [facility]. Evelyn Castaneda MA * Telephone Encounter - Mikayla Strange MD - 08/16/2024 8:57 AM EST Macrobid is not related to any of her current allergies. Actually cipro is-it is nearly identical to levaquin. Would stick with macrobid. It is one of the few antibiotics we can use given her allergies/intolerances. * Telephone Encounter - Soraida Escudero LPN - 08/16/2024 8:19 AM EST Phoned patient went over results, notes from Dr Strange with understanding. Patient said she usually takes Cipro rx, she [facility]. She did not want Macrobid due to her list of allergies. Patient said she has been taking a multivitamin with iron. * Telephone Encounter - Mikayla Strange MD - 08/16/2024 8:09 AM EST Her urine does look infected. Culture is pending. Add macrobid. Her anemia from surgery is still present. Would add a multivitamin with iron. documented in [facility] encounter[facility] Telephone encounter Note * Telephone Encounter - Mikayla Strange MD - 08/16/2024 8:57 AM EST Macrobid is not related to any of her current allergies. Actually cipro is-it is nearly identical to levaquin. Would stick with macrobid. It is one of the few antibiotics we can use given her allergies/intolerances. [facility]02-21-2025 Telephone encounter Note* Telephone Encounter - Soraida Escudero LPN - 08/16/2024 8:19 AM EST Phoned patient went over results, notes from Dr Strange with understanding. Patient said she usually takes Cipro rx, she uses [place] [facility] for her pharmacy. She did not want Macrobid due to her list of allergies. Patient said she has been taking a multivitamin with iron. [facility]02-21-2025 Telephone encounter Note* Telephone Encounter - Mikayla Strange MD - 08/16/2024 8:09 AM EST Her urine does look infected. Culture is pending. Add macrobid. Her anemia from surgery is still present. Would add a multivitamin with iron. [facility]02-19-2025 NoteHNO ID: [id number] Author: MIKAYLA STRANGE MD Service: ? Author Type: Physician Type: Progress Notes Filed: 08/14/2024 15:42 Note Text: Patient presents with: F/U 6 months HPI: Patient presents today for office visit for follow up. Had an external fixator and then developed a mrsa infection and was in ecf after Fractured in April. Using walker. Is getting around better. Urology: patient is concerned about urinary symptoms. Duration of symptoms: 5 days Dysuria: Yes. Urinary urgency: Yes. Urinary frequency: Yes. Suprapubic pain: No. Back pain: Yes. Fever: No. Nausea: No. Vomiting: No. HTN: Patient is compliant with meds Yes Monitors bp at home: No. Denies side effects: Yes. Chest pain: No. Dyspnea: No. Edema: No. Palpitations: No. Syncope: No. Headache: No. Dizziness: No. DM:sugar was 96 yesterday. No issues Last A1c was just 5.8. Psych:tolerating her citralopram. Is doing well. No side effects. HLD:stil on cholesterol meds. Headaches are stable. Sees Dr Ward. Sees Dr Buck for rheumatoid arthritis. Had a post op anemia. MEDICATIONS: Current Outpatient Medications Medication Sig hyoscyamine sublingual (LEVSIN/SL) 0.125 mg Dissolve 1 tablet under the tongue every 4 hours as needed. promethazine (PHENERGAN) 25 mg tablet Take 1 tablet by mouth every 6 hours as needed. citalopram (CELEXA) 40 mg tablet Take 1 tablet by mouth once daily. buprenorphine (BUTRANS) 20 mcg/hour transdermal patch Apply 1 Patch as directed one time a week for 7 days. Last APPLIED 05/08 acetaminophen (TYLENOL) 325 mg tablet Take 2 tablets by mouth every 6 hours as needed for pain. gabapentin (NEURONTIN) 300 mg capsule Take 3 capsules by mouth daily at bedtime for 30 days. gabapentin (NEURONTIN) 300 mg capsule Take 3 capsules by mouth once daily for 30 days. Daily at noon polyethylene glycol 3350 17 gram packet Take 1 Packet by mouth once daily as needed. Dissolve dose in 4 - 8 ounces of liquid and take as directed. lisinopril (ZESTRIL) 10 mg tablet Take 1 tablet by mouth once daily. estradiol (ESTRACE) 0.01 % (0.1 mg/gram) vaginal cream Use 3 g vaginally once daily. atorvastatin (LIPITOR) 10 mg tablet Take 1 tablet by mouth once daily. (Patient taking differently: Take 10 mg by mouth daily at bedtime.) busPIRone HCl 30 mg tablet Take 1 tablet by mouth two times a day. omeprazole (PRILOSEC) 40 mg capsule Take 40 mg by mouth once daily. SUMAtriptan (IMITREX) 50 mg tablet Take 1 tablet (50 mg) by mouth as needed. oxyCODONE-acetaminophen (PERCOCET) 5-325 mg tablet 1 tablet three times daily as needed. upadacitinib (RINVOQ ORAL) Take 15 mg by mouth. amitriptyline (ELAVIL) 10 mg tablet Take 1 tablet by mouth daily at bedtime. Cetirizine 10 mg cap Take by mouth. CALCIUM POLYCARBOPHIL (FIBER LAXATIVE ORAL) Take by mouth. multivitamin tablet Take 1 tablet by mouth once daily. latanoprost (XALATAN) 0.005 % ophthalmic solution 1 Drop daily at bedtime. docusate sodium (COLACE) 100 mg capsule Take 100 mg by mouth twice daily. No current facility-administered medications for this visit. ALLERGIES: ALLERGIES Allergen Reactions Compazine [Prochlor* Other: See Comments Pt reports it makes more nausea Vaibhav [Fexofenadi* Intolerance Augmentin [Amoxicil* Intolerance Bentyl [Dicyclomine* GI Upset Biaxin [Clarithromy* Intolerance Ceclor [Cefaclor] Intolerance Celebrex [Celecoxib] Intolerance Colestipol Other: See Comments shaky/headaches/increased nausea Doxepin Intolerance Fentanyl Intolerance Pt doesn't remember the reaction Humira [Adalimumab] Intolerance Levaquin [Levofloxa* Intolerance Metformin GI Upset Gi intolerance Plaquenil [Hydroxyc* Intolerance Seldane Intolerance Septra [Sulfamethox* Intolerance Sulfa (Sulfonamide * Intolerance Vibramycin [Doxycyc* Intolerance Vicodin [Hydrocodon* Intolerance PAST MEDICAL HISTORY Diagnosis Date Anxiety disorder Arthritis Chronic back pain Dr. Burks-pain management Depressive disorder, not elsewhere classified Diabetes (HCC) Pt reports she takes cinnamin tabs to manage her diabetes Essential hypertension, benign Fibromyalgia Glaucoma IBS (irritable bowel syndrome) Migraine, unspecified, without mention of intractable migraine without mention of status migrainosus PONV (postoperative nausea and vomiting) Pure hypercholesterolemia Rheumatoid arthritis (HCC) Sleep apnea pt states she snores frequently;though never worked-up for RUPESH Snoring PAST SURGICAL HISTORY Procedure Laterality Date APPENDECTOMY 12/18/2014 Dr. Blakely APPENDECTOMY HX ARTHRP KNE CONDYLEANDPLATU MEDIALANDLAT COMPARTMENTS 04/22/2014 right COLONOSCOPY 05/27/2022 repeat in 10 years COLONOSCOPY FLX DX W/COLLJ SPEC WHEN PFRMD 10/01/2012 suboptimal - poor prep EGD ESOPHAGOGASTRODUODENOSCOPY TRANSORAL DIAGNOSTIC 07/30/2014 EGD JOINT REPLACEMENT HX LAPAROSCOPY SURG CH (more content not included)...[facility] 08-14-2024 History of Present illness Narrative* Mikayla Strange MD - 08/14/2024 3:07 PM EST Patient presents with: F/U 6 months HPI: Patient presents today for office visit for follow up. Had an external fixator and then developed a mrsa infection and was in ecf after Fractured in April. Using walker. Is getting around better. Urology: patient is concerned about urinary symptoms. Duration of symptoms: 5 days Dysuria: Yes. Urinary urgency: Yes. Urinary frequency: Yes. Suprapubic pain: No. Back pain: Yes. Fever: No. Nausea: No. Vomiting: No. HTN: Patient is compliant with meds Yes Monitors bp at home: No. Denies side effects: Yes. Chest pain: No. Dyspnea: No. Edema: No. Palpitations: No. Syncope: No. Headache: No. Dizziness: No. DM:sugar was 96 yesterday. No issues Last A1c was just 5.8. Psych:tolerating her citralopram. Is doing well. No side effects. HLD:stil on cholesterol meds. Headaches are stable. Sees Dr Ward. Sees Dr Buck for rheumatoid arthritis. Had a post op anemia. MEDICATIONS: Current Outpatient Medications Medication Sig hyoscyamine sublingual (LEVSIN/SL) 0.125 mg Dissolve 1 tablet under the tongue every 4 hours as needed. promethazine (PHENERGAN) 25 mg tablet Take 1 tablet by mouth every 6 hours as needed. citalopram (CELEXA) 40 mg tablet Take 1 tablet by mouth once daily. buprenorphine (BUTRANS) 20 mcg/hour transdermal patch Apply 1 Patch as directed one time a week for7 days. Last APPLIED 05/08 acetaminophen (TYLENOL) 325 mg tablet Take 2 tablets by mouth every 6 hours as needed for pain. gabapentin (NEURONTIN) 300 mg capsule Take 3 capsules by mouth daily at bedtime for 30 days. gabapentin (NEURONTIN) 300 mg capsule Take 3 capsules by mouth once daily for 30 days. Daily at noon polyethylene glycol 3350 17 gram packet Take 1 Packet by mouth once daily as needed. Dissolve dose in 4 - 8 ounces of liquid and take as directed. lisinopril (ZESTRIL) 10 mg tablet Take 1 tablet by mouth once daily. estradiol (ESTRACE) 0.01 % (0.1 mg/gram) vaginal cream Use 3 g vaginally once daily. atorvastatin (LIPITOR) 10 mg tablet Take 1 tablet by mouth once daily. (Patient taking differently:Take 10 mg by mouth daily at bedtime.) busPIRone HCl 30 mg tablet Take 1 tablet by mouth two times a day. omeprazole (PRILOSEC) 40 mg capsule Take 40 mg by mouth once daily. SUMAtriptan (IMITREX) 50 mg tablet Take 1 tablet (50 mg) by mouth as needed. oxyCODONE-acetaminophen (PERCOCET) 5-325 mg tablet 1 tablet three times daily as needed. upadacitinib (RINVOQ ORAL) Take 15 mg by mouth. amitriptyline (ELAVIL) 10 mg tablet Take 1 tablet by mouth daily at bedtime. Cetirizine 10 mg cap Take by mouth. CALCIUM POLYCARBOPHIL (FIBER LAXATIVE ORAL) Take by mouth. multivitamin tablet Take 1 tablet by mouth once daily. latanoprost (XALATAN) 0.005 % ophthalmic solution 1 Drop daily at bedtime. docusate sodium (COLACE) 100 mg capsule Take 100 mg by mouth twice daily. No current facility-administered medications for this visit. ALLERGIES: ALLERGIES Allergen Reactions Compazine [Prochlor* Other: See Comments Pt reports it makes more nausea Vaibhav [Fexofenadi* Intolerance Augmentin [Amoxicil* Intolerance Bentyl [Dicyclomine* GI Upset Biaxin [Clarithromy* Intolerance Ceclor [Cefaclor] Intolerance Celebrex [Celecoxib] Intolerance Colestipol Other: See Comments shaky/headaches/increased nausea Doxepin Intolerance Fentanyl Intolerance Pt doesn't remember the reaction Humira [Adalimumab] Intolerance Levaquin [Levofloxa* Intolerance Metformin GI Upset Gi intolerance Plaquenil [Hydroxyc* Intolerance Seldane Intolerance Septra [Sulfamethox* Intolerance Sulfa (Sulfonamide * Intolerance Vibramycin [Doxycyc* Intolerance Vicodin [Hydrocodon* Intolerance PAST MEDICAL HISTORY Diagnosis Date Anxiety disorder Arthritis Chronic back pain Dr. Burks-pain management Depressive disorder, not elsewhere classified Diabetes (HCC) Pt reports she takes cinnamin tabs to manage her diabetes Essential hypertension, benign Fibromyalgia Glaucoma IBS (irritable bowel syndrome) Migraine, unspecified, without mention of intractable migraine without mention of status migrainosus PONV (postoperative nausea and vomiting) Pure hypercholesterolemia Rheumatoid arthritis (HCC) Sleep apnea pt states she snores frequently;though never worked-up for RUPESH Snoring PAST SURGICAL HISTORY Procedure Laterality Date [...] Never Smokeless tobacco: Never Vaping Use Vaping status: Never Used Substance Use Topics Alcohol use: No Drug use: No Reviewed current medications, allergies, past medical history, surgical history, family history andsocial history today. REVIEW OF SYSTEMS All other reviewed and negative other than HPI. VITALS: BP 122/62 Pulse 69 Temp 37.2 C (98.9 F) Wt 91.6 kg (202 lb) SpO2 99% BMI 31.64 kg/m Last 4 Encounter Wt Readings: Date: Wt: 08/14/2024 91.6 kg (202 lb) 07/22/2024 90.7 kg (200 lb) 06/29/2024 90.7 kg (200 lb) 06/28/2024 90.7 kg (200 lb) PHYSICAL EXAMINATION: General appearance: Well appearing, [...] Musculoskeletal: No joint swelling, deformity, or tenderness ASSESSMENT/PLAN: 1. Dysuria - ICD9: 788.1, ICD10: R30.0 (primary diagnosis) - cannot give us the urine sample while in room, will have her drink water and try and get in lab. - URINALYSIS, REFLEX MICROSCOPIC - BACTERIAL CULTURE, URINE 2. Chronic insomnia - ICD9: 780.52, ICD10: F51.04 - stable. 3. Fibromyalgia - ICD9: 729.1, ICD10: M79.7 - stable. 4. Other hyperlipidemia - ICD9: 272.4, ICD10: E78.49 - stable. 5. Primary hypertension - ICD9: 401.9, ICD10: I10 - Controlled - Continue current medications 6. Rheumatoid arthritis, involving unspecified site, unspecified whether rheumatoid factor present (HCC) - ICD9: 714.0, ICD10: M06.9 - stable. 7. Stage 3 chronic kidney disease, unspecified whether stage 3a or 3b CKD (HCC) - ICD9: 585.3, ICD10: N18.30 - stable. Follow labs. 8. Obesity, Class I, BMI 30-34.9 - ICD9: 278.00, ICD10: E66.811 - stable - COMPLETE BLOOD COUNT AND DIFFERENTIAL - COMPREHENSIVE METABOLIC PANEL 9. Type 2 diabetes mellitus without complication, without long-term current use of insulin (HCC) - ICD9: 250.00, ICD10: E11.9 - recheck labs. - COMPLETE BLOOD COUNT AND DIFFERENTIAL - COMPREHENSIVE METABOLIC PANEL - HEMOGLOBIN A1C 10. Other diabetic neurological complication associated with type 2 diabetes mellitus (HCC) - ICD9:250.60, ICD10: E11.49 - recheck labs. Mikayla Strange MD documented in [facility] encounter[facility] Telephone encounter Note * Telephone Encounter - Ginger Lundberg APRN.CNP - 08/08/2024 5:43 PM EST The following approved medication requests have been transmitted electronically. Requested Prescriptions Signed Prescriptions Disp Refills hyoscyamine sublingual (LEVSIN/SL) 0.125 mg 60 tablet 3 Sig: Dissolve 1 tablet under the tongue every 4 hours as needed. Authorizing Provider: GINGER LUNDBERG APRN.CNP [facility]02-13-2025 Miscellaneous Notes* Telephone Encounter - Ginger Lundberg APRN.CNP - 08/08/2024 5:43 PM EST The following approved medication requests have been transmitted electronically. Requested Prescriptions Signed Prescriptions Disp Refills hyoscyamine sublingual (LEVSIN/SL) 0.125 mg 60 tablet 3 Sig: Dissolve 1 tablet under the tongue every 4 hours as needed. Authorizing Provider: GINGER LUNDBERG APRN.CNP * Telephone Encounter - Makenna Crowder RN - 08/08/2024 1:39 PM EST Patient calls and states that prescription was sent to [facility]. Patient states that she needs medication to be sent to [facility] due to cost. The patient has been identified by name and date of : Yes Caregiver verified no other encounters exist for this prescription request: Yes Caregiver confirmed with patient/requestor that no other refills are due, in the near future, with this provider at this time: Yes The last office visit in the department: 02/20/2024 Does the patient have a future office visit with this provider/department: Yes 08/14/2024 Requested Prescriptions Pending Prescriptions Disp Refills hyoscyamine sublingual (LEVSIN/SL) 0.125 mg 60 tablet 3 Sig: Dissolve 1 tablet under the tongue every 4 hours as needed. Makenna Crowder RN August 08, 2024 1:40 PM documented in this encounterSelect [facility] Telephone encounter Note * Telephone Encounter - Makenna Crowder RN - 08/08/2024 1:39 PM EST Patient calls and states that prescription was sent to [facility]. Patient states that she needs medication to be sent to [facility] due to cost. The patient has been identified by name and date of : Yes Caregiver verified no other encounters exist for this prescription request: Yes Caregiver confirmed with patient/requestor that no other refills are due, in the near future, with this provider at this time: Yes The last office visit in the department: 02/20/2024 Does the patient have a future office visit with this provider/department: Yes 08/14/2024 Requested Prescriptions Pending Prescriptions Disp Refills hyoscyamine sublingual (LEVSIN/SL) 0.125 mg 60 tablet 3 Sig: Dissolve 1 tablet under the tongue every 4 hours as needed. Makenna Crowder RN August 08, 2024 1:40 PM [facility]02-12-2025 Telephone encounter Note* Telephone Encounter - Mayela Urbano LPN - 08/07/2024 9:05 AM EST The patient has been identified by name and date of : Yes Caregiver verified no other encounters exist for this prescription request: Yes Caregiver confirmed with patient/requestor that no other refills are due, in the near future, with this provider at this time: Yes The last office visit in the department: 02/20/2024 Does the patient have a future office visit with this provider/department: Yes 08/14/2024 Requested Prescriptions Pending Prescriptions Disp Refills promethazine (PHENERGAN) 25 mg tablet 24 tablet 6 Sig: Take 1 tablet by mouth every 6 hours as needed. hyoscyamine sublingual (LEVSIN/SL) 0.125 mg 60 tablet 3 Sig: Dissolve 1 tablet under the tongue every 4 hours as needed. Mayela Urbano LPN August 07, 2024 9:[address] [facility]02-12-2025 Miscellaneous Notes* Telephone Encounter - Mayela Urbano LPN - 08/07/2024 9:05 AM EST The patient has been identified by name and date of : Yes Caregiver verified no other encounters exist for this prescription request: Yes Caregiver confirmed with patient/requestor that no other refills are due, in the near future, with this provider at this time: Yes The last office visit in the department: 02/20/2024 Does the patient have a future office visit with this provider/department: Yes 08/14/2024 Requested Prescriptions Pending Prescriptions Disp Refills promethazine (PHENERGAN) 25 mg tablet 24 tablet 6 Sig: Take 1 tablet by mouth every 6 hours as needed. hyoscyamine sublingual (LEVSIN/SL) 0.125 mg 60 tablet 3 Sig: Dissolve 1 tablet under the tongue every 4 hours as needed. Mayela Urbano LPN August 07, 2024 9:06 AM documented in this encounterSelect [facility] Telephone encounter Note * Telephone Encounter - Ashley Marsh RN - 08/06/2024 1:15 PM EST The patient has been identified by name and date of : Yes Caregiver verified no other encounters exist for this prescription request: Yes Caregiver confirmed with patient/requestor that no other refills are due, in the near future, with this provider at this time: Yes The last office visit in the department: 02/20/2024 Does the patient have a future office visit with this provider/department: Yes 08/14/2024 Requested Prescriptions Pending Prescriptions Disp Refills citalopram (CELEXA) 40 mg tablet 90 tablet 3 Sig: Take 1 tablet by mouth once daily. Ashley Marsh RN [facility]02-11-2025 Miscellaneous Notes* Telephone Encounter - Ashley Marsh RN - 08/06/2024 1:15 PM EST The patient has been identified by name and date of : Yes Caregiver verified no other encounters exist for this prescription request: Yes Caregiver confirmed with patient/requestor that no other refills are due, in the near future, with this provider at this time: Yes The last office visit in the department: 02/20/2024 Does the patient have a future office visit with this provider/department: Yes 08/14/2024 Requested Prescriptions Pending Prescriptions Disp Refills citalopram (CELEXA) 40 mg tablet 90 tablet 3 Sig: Take 1 tablet by mouth once daily. Ashley Marsh RN documented in this encounterSelect [facility] History of Present illness Narrative* Sydni Waggoner MD - 07/22/2024 2:45 PM EST Images from the original note were not included. ORTHOPAEDIC SURGERY OFFICE NOTE: SURGERY: 1) Open Treatment of the Right Periprosthetic Proximal Tibia Fracture with Internal Fixation on 05/07/2024 2) Right Lower Extremity Knee-Spanning Uniplanar External Fixator on 05/07/2024 3) Removal of the Right Lower Extremity Knee-Spanning Uniplanar External Fixator on 07/02/2024 CHIEF COMPLAINT: Routine Post-Operative Follow-Up HISTORY OF PRESENT ILLNESS: Zackery Nunez is a 64 year old female who presents for routine post-operative follow-up from theabove listed operation (see Surgery above for full details). At today's appointment, the patient reports doing well. The patient endorses controlled pain to the right knee. The patient has tolerated the right knee [id number] brace and maintained non-weightbearing recommendations with the right lower extremity. The patient denies fevers and chills. The patient has no additional orthopaedic traumatic complaints at this time. Reviewed nursing note and current pain scale. PAST MEDICAL HISTORY Diagnosis Date Anxiety disorder Arthritis Chronic back pain Dr. Burks-pain management Depressive disorder, not elsewhere classified Diabetes (HCC) Pt reports she takes cinnamin tabs to manage her diabetes Essential hypertension, benign Fibromyalgia Glaucoma IBS (irritable bowel syndrome) Migraine, unspecified, without mention of intractable migraine without mention of status migrainosus PONV (postoperative nausea and vomiting) Pure hypercholesterolemia Rheumatoid arthritis (HCC) Sleep apnea pt states she snores frequently;though never worked-up for RUPESH Snoring PAST SURGICAL HISTORY Procedure Laterality Date [...] Never Smokeless tobacco: Never Vaping Use Vaping status: Never Used Substance Use Topics Alcohol use: No Drug use: No MEDICATIONS: Current Outpatient Medications Medication Sig buprenorphine (BUTRANS) 20 mcg/hour transdermal patch Apply 1 Patch as directed one time a week for7 days. Last APPLIED 05/08 acetaminophen (TYLENOL) 325 mg tablet Take 2 tablets by mouth every 6 hours as needed for pain. gabapentin (NEURONTIN) 300 mg capsule Take 3 capsules by mouth daily at bedtime for 30 days. gabapentin (NEURONTIN) 300 mg capsule Take 3 capsules by mouth once daily for 30 days. Daily at noon polyethylene glycol 3350 17 gram packet Take 1 Packet by mouth once daily as needed. Dissolve dose in 4 - 8 ounces of liquid and take as directed. lisinopril (ZESTRIL) 10 mg tablet Take 1 tablet by mouth once daily. estradiol (ESTRACE) 0.01 % (0.1 mg/gram) vaginal cream Use 3 g vaginally once daily. atorvastatin (LIPITOR) 10 mg tablet Take 1 tablet by mouth once daily. (Patient taking differently:Take 10 mg by mouth daily at bedtime.) busPIRone HCl 30 mg tablet Take 1 tablet by mouth two times a day. omeprazole (PRILOSEC) 40 mg capsule Take 40 mg by mouth once daily. hyoscyamine sublingual (LEVSIN/SL) 0.125 mg Dissolve 1 tablet under the tongue every 4 hours as needed. citalopram (CELEXA) 40 mg tablet Take 1 tablet by mouth once daily. promethazine (PHENERGAN) 25 mg tablet Take 1 tablet by mouth every 6 hours as needed. SUMAtriptan (IMITREX) 50 mg tablet Take 1 tablet (50 mg) by mouth as needed. oxyCODONE-acetaminophen (PERCOCET) 5-325 mg tablet 1 tablet three times daily as needed. upadacitinib (RINVOQ ORAL) Take 15 mg by mouth. amitriptyline (ELAVIL) 10 mg tablet Take 1 tablet by mouth daily at bedtime. Cetirizine 10 mg cap Take by mouth. CALCIUM POLYCARBOPHIL (FIBER LAXATIVE ORAL) Take by mouth. multivitamin tablet Take 1 tablet by mouth once daily. latanoprost (XALATAN) 0.005 % ophthalmic solution 1 Drop daily at bedtime. docusate sodium (COLACE) 100 mg capsule Take 100 mg by mouth twice daily. No current facility-administered medications for this visit. ALLERGIES: ALLERGIES Allergen Reactions Compazine [Prochlor* Other: See Comments Pt reports it makes more nausea Vaibhav [Fexofenadi* Intolerance Augmentin [Amoxicil* Intolerance Bentyl [Dicyclomine* GI Upset Biaxin [Clarithromy* Intolerance Ceclor [Cefaclor] Intolerance Celebrex [Celecoxib] Intolerance Colestipol Other: See Comments shaky/headaches/increased nausea Doxepin Intolerance Fentanyl Intolerance Pt doesn't remember the reaction Humira [Adalimumab] Intolerance Levaquin [Levofloxa* Intolerance Metformin GI Upset Gi intolerance Plaquenil [Hydroxyc* Intolerance Seldane Intolerance Septra [Sulfamethox* Intolerance Sulfa (Sulfonamide * Intolerance Vibramycin [Doxycyc* Intolerance Vicodin [Hydrocodon* Intolerance PHYSICAL EXAMINATION: Resp 18 Ht 5' 7 (1.70m) Wt 200 lb (90.7kg) BMI 31.32 kg/(m^2). General Appearance: No acute distress Skin: See Extremity exam below for full details Right Lower Extremity: Healed surgical incisions to the right knee. There is no fátima-incisional erythema nor drainage. Compartments of the thigh and leg are soft and compressible. The patient has active knee flexion, knee extension, ankle dorsiflexion, ankle plantarflexion and extensor hallucis longus motor function. Sensation intact to light touch in the sural, saphenous, superficial peroneal, deep peroneal and tibial nerve distributions. Brisk capillary refill to the digits of the foot. IMAGES: Recent Results (from the past 36 hour(s)) XR KNEE LIMITED 2V AP/LAT RIGHT Narrative 2-view right knee x-rays demonstrate maintained length, alignment and rotation of the right periprosthetic proximal tibia fracture with intact orthopaedic implants. ASSESSMENT AND PLAN: 1. 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, subsequent encounter - ICD9: V54.89, ICD10: M97.11XD -2-view right knee x-rays ordered, obtained and independently interpreted (see image interpretationabove for full details) -Maintain the right knee gzvux-rh-nblroj brace (0-90 degrees of flexion) as tolerated -Weight-bearing as tolerated with the right lower extremity -Ambulation assistance devices as needed for safe mobilization -Pain control with NSAIDs and acetaminophen as needed -Ice and elevation of the right lower extremity for pain control and swelling reduction -Physical therapy prescription provided to the patient -The patient will follow-up in 12 weeks or sooner if needed OARRS reviewed All patient questions and concerns were answered and addressed The above reflects an independent exam and review. The patient was personally seen and examined. Part of the HPI, ROS, exam and impression may have been copied from personal previous clinical notes and remains pertinent. Current changes have been made and documented today. Other parts or data were deleted if not relevant for today. Plan as outlined. Sydni Waggoner MD Orthopaedic Trauma Surgery 07/22/2024 4:16 PM documented in this encounter[facility]25 NoteHNO ID: [id number] Author: SYDNI WAGGONER MD Service: ? Author Type: Physician Type: Progress Notes Filed: 07/22/2024 16:18 Note Text: ORTHOPAEDIC SURGERY OFFICE NOTE: SURGERY: 1) Open Treatment of the Right Periprosthetic Proximal Tibia Fracture with Internal Fixation on 05/07/2024 2) Right Lower Extremity Knee-Spanning Uniplanar External Fixator on 05/07/2024 3) Removal of the Right Lower Extremity Knee-Spanning Uniplanar External Fixator on 07/02/2024 CHIEF COMPLAINT: Routine Post-Operative Follow-Up HISTORY OF PRESENT ILLNESS: Zackery Nunez is a 64 year old female who presents for routine post-operative follow-up from the above listed operation (see Surgery above for full details). At today's appointment, the patient reports doing well. The patient endorses controlled pain to the right knee. The patient has tolerated the right knee httab-zf-xchuxk brace and maintained non-weightbearing recommendations with the right lower extremity. The patient denies fevers and chills. The patient has no additional orthopaedic traumatic complaints at this time. Reviewed nursing note and current pain scale. PAST MEDICAL HISTORY Diagnosis Date Anxiety disorder Arthritis Chronic back pain Dr. Burks-pain management Depressive disorder, not elsewhere classified Diabetes (HCC) Pt reports she takes cinnamin tabs to manage her diabetes Essential hypertension, benign Fibromyalgia Glaucoma IBS (irritable bowel syndrome) Migraine, unspecified, without mention of intractable migraine without mention of status migrainosus PONV (postoperative nausea and vomiting) Pure hypercholesterolemia Rheumatoid arthritis (HCC) Sleep apnea pt states she snores frequently;though never worked-up for RUPESH Snoring PAST SURGICAL HISTORY Procedure Laterality Date [...] Never Smokeless tobacco: Never Vaping Use Vaping status: Never Used Substance Use Topics Alcohol use: No Drug use: No MEDICATIONS: Current Outpatient Medications Medication Sig buprenorphine (BUTRANS) 20 mcg/hour transdermal patch Apply 1 Patch as directed one time a week for 7 days. Last APPLIED 05/08 acetaminophen (TYLENOL) 325 mg tablet Take 2 tablets by mouth every 6 hours as needed for pain. gabapentin (NEURONTIN) 300 mg capsule Take 3 capsules by mouth daily at bedtime for 30 days. gabapentin (NEURONTIN) 300 mg capsule Take 3 capsules by mouth once daily for 30 days. Daily at noon polyethylene glycol 3350 17 gram packet Take 1 Packet by mouth once daily as needed. Dissolve dose in 4 - 8 ounces of liquid and take as directed. lisinopril (ZESTRIL) 10 mg tablet Take 1 tablet by mouth once daily. estradiol (ESTRACE) 0.01 % (0.1 mg/gram) vaginal cream Use 3 g vaginally once daily. atorvastatin (LIPITOR) 10 mg tablet Take 1 tablet by mouth once daily. (Patient taking differently: Take 10 mg by mouth daily at bedtime.) busPIRone HCl 30 mg tablet Take 1 tablet by mouth two times a day. omeprazole (PRILOSEC) 40 mg capsule Take 40 mg by mouth once daily. hyoscyamine sublingual (LEVSIN/SL) 0.125 mg Dissolve 1 tablet under the tongue every 4 hours as needed. citalopram (CELEXA) 40 mg tablet Take 1 tablet by mouth once daily. promethazine (PHENERGAN) 25 mg tablet Take 1 tablet by mouth every 6 hours as needed. SUMAtriptan (IMITREX) 50 mg tablet Take 1 tablet (50 mg) by mouth as needed. oxyCODONE-acetaminophen (PERCOCET) 5-325 mg tablet 1 tablet three times daily as needed. upadacitinib (RINVOQ ORAL) Take 15 mg by mouth. amitriptyline (ELAVIL) 10 mg tablet Take 1 tablet by mouth daily at bedtime. Cetirizine 10 mg cap Take by mouth. CALCIUM POLYCARBOPHIL (FIBER LAXATIVE ORAL) Take by mouth. multivitamin tablet Take 1 tablet by mouth once daily. latanoprost (XALATAN) 0.005 % ophthalmic solution 1 Drop daily at bedtime. docusate sodium (COLACE) 100 mg capsule Take 100 mg by mouth twice daily. No current facility-administered medications for this visit. ALLERGIES: ALLERGIES Allergen Reactions Compazine [Prochlor* Other: See Co (more content not included)...[facility]01-22-2025 Telephone encounter Note* Telephone Encounter - Mayela Urbano LPN - 07/17/2024 9:33 AM EST Orders signed and faxed back. Sent to Dr. Strange's nurse to keep if needed. Mayela Urbano LPN [facility]01-22-2025 Miscellaneous Notes* Telephone Encounter - Mayela Urbano LPN - 07/17/2024 9:33 AM EST Orders signed and faxed back. Sent to Dr. Strange's nurse to keep if needed. Mayela Urbano LPN * Telephone Encounter - Mayela Urbano LPN - 07/17/2024 9:20 AM EST Porsha with [facility] calling to let you know they received the last fax back with a date but no signature. Porsha is faxing back to me and I will deliver to office to get signed, dated and fax back. Received fax and delivered to pcp nurse. Mayela Urbano LPN documented in this encounterSelect [facility]01-22-[facility]25 Telephone encounter Note * Telephone Encounter - Mayela Urbano LPN - 07/17/2024 9:20 AM EST Porsha with [facility] calling to let you know they received the last fax back with a date but no signature. Porsha is faxing back to me and I will deliver to office to get signed, dated and fax back. Received fax and delivered to pcp nurse. Mayela Urbano LPN [facility]01-17-2025 Telephone encounter Note* Telephone Encounter - Adriano Paniagua, RN - 07/12/2024 10:58 AM EST Left detailed vm on identified vm with provider's message below. [facility]01-17-2025 Miscellaneous Notes* Telephone Encounter - Adriano aPniagua RN - 07/12/2024 10:58 AM EST Left detailed vm on identified vm with provider's message below. * Telephone Encounter - Mikayla Strange MD - 07/12/2024 8:48 AM EST Ok to do * Telephone Encounter - Makenna Crowder RN - 07/12/2024 8:45 AM EST Srikanth PT from [facility] Calls and states that patient was supposed to be evaluated for home PT this week. Patient is requesting that the evaluation be next week. Srikanth states that he needs verbal order to be able to visit patient next week. Makenna Crowder RN documented in this encounterSelect [facility]01-17-2025 Telephone encounter Note * Telephone Encounter - Mikayla Strange MD - 07/12/2024 8:48 AM EST Ok to do [facility]01-17-2025 Telephone encounter Note* Telephone Encounter - Makenna Crowder RN - 07/12/2024 8:45 AM EST Srikanth PT from [facility] Calls and states that patient was supposed to be evaluated for home PT this week. Patient is requesting that the evaluation be next week. Srikanth states that he needs verbal order to be able to visit patient next week. Makenna Crowder RN [facility]01-08-2025 Telephone encounter Note* Telephone Encounter - Rosemary Najera - 07/03/2024 3:43 PM EST Called and left message for Adeline Severino [facility]01-08-2025 Miscellaneous Notes* Telephone Encounter - Penn Trumbull [facility], Rosemary - 07/03/2024 3:43 PM EST Called and left message for Adeline Darling [employer] * Telephone Encounter - Penn [employer], Rosemary - 07/03/2024 3:42 PM EST Images from the original note were not included. Sydni Waggoner MD You15 minutes ago (3:27 PM) NWB with active knee range of motion * Telephone Encounter - Lisset Trumbull Ppg, Rosemary - 07/03/2024 12:53 PM EST Adeline from [facility] calling to get orders for PT for this patient Rosemaryadam Garciay Trumbull P[facility] documented in this encounterSelect [facility]01-08-2025 Telephone encounter Note * Telephone Encounter - Lisset [employer], Rosemary - 07/03/2024 3:42 PM EST Images from the original note were not included. Sydni Waggoner MD You15 minutes ago (3:27 PM) NWB with active knee range of motion [facility]01-08-2025 Telephone encounter Note* Telephone Encounter - Lisset [employer], Rosemary - 07/03/2024 12:53 PM EST Adeline from [facility] calling to get orders for PT for this patient Rosemary Lisset Trumbull Ppg [facility]01-06-2025 Telephone encounter Note* Telephone Encounter - Teresa Crawford - 07/01/2024 1:31 PM EST I called patient and talked with the patient. Have you completed the OME Survey via MyChart? No (You can't be registered for surgery until the survey is completed. ) Procedure is scheduled for: 07-02-24 at: UNKOWN Arrival time: UNKNOWN NPO after midnight. Please bring walker, crutches, braces or slings if applicable. Teresa Crawford [facility]01-06-2025 Miscellaneous Notes* Telephone Encounter - Teresa Crawford - 07/01/2024 1:31 PM EST I called patient and talked with the patient. Have you completed the OME Survey via MyChart? No (You can't be registered for surgery until the survey is completed. ) Procedure is scheduled for: 07-02-24 at: UNKOWN Arrival time: UNKNOWN NPO after midnight. Please bring walker, crutches, braces or slings if applicable. Teresa Crawford documented in this encounterSelect [facility]01-03-2025 Telephone encounter Note * Telephone Encounter - Teresa Crawford - 06/28/2024 12:47 PM EST I rec'd a call from the patient that she was notified to come to the ER as her cultures grew something and she would need IV antibiotics. I called [facility] [phone] and requested records from the ER visit. I have them scannedinto [employer]. Teresa Crawford [facility]01-03-2025 Miscellaneous Notes* Telephone Encounter - Teresa Crawford - 06/28/2024 12:47 PM EST I rec'd a call from the patient that she was notified to come to the ER as her cultures grew something and she would need IV antibiotics. I called [facility] [phone] and requested records from the ER visit. I have them scannedinto [employer]. Teresa Crawford documented in this encounterSelect [facility]12-30-2024 Telephone encounter Note * Telephone Encounter - Makenna Crowder RN - 06/24/2024 3:18 PM EST See Telephone encounter from 06/24/2024 and distance health visit from 06/23/2024. Patient has beenreferred to ER. [facility]12-30-2024 Miscellaneous Notes* Telephone Encounter - Makenna Crowder RN - 06/24/2024 3:18 PM EST See Telephone encounter from 06/24/2024 and distance health visit from 06/23/2024. Patient has beenreferred to ER. * Telephone Encounter - Kimberly Ovalle - 06/24/2024 9:05 AM EST Zackery is calling Mikayla Strange MD today with concern regarding Symptoms of a UTI and a sample her PT person dropped off at the office. She has a broken leg, she cannot walk. Her fever had gone to 103 and then it would drop. Today it is 100.2. she is asking for an antibiotic for the UTI. Patient has been identified by name and birthdate. Duration of symptoms: N/A Person calling: self Call patient at: at home [phone] (home) [phone] (cell) Was an appointment scheduled: No Closing statement: Symptom Call: Thank you for calling [facility], your call is very important. A nurse will call in approximately 2-4 hours during business hours. If this is an emergency, please contact 911. Kimberly Ovalle documented in this encounterSelect [facility]12-30-2024 Telephone encounter Note * Telephone Encounter - Bre Castillo MA - 06/24/2024 10:17 AM EST Pt notified. Bre Castillo MA [facility]12-30-2024 Miscellaneous Notes* Telephone Encounter - Bre Castillo MA - 06/24/2024 10:17 AM EST Pt notified. Bre Castillo MA * Telephone Encounter - Mikayla Strange MD - 06/24/2024 9:56 AM EST Ua was done not culture and a provider referred her to er based on that. If she is truly unable to urinate, to er * Telephone Encounter - Bre Castillo MA - 06/24/2024 9:41 AM EST Pt did not going to ER. She stated she had urine specimen dropped off on 06/21/24. See results. She states she has is unable to ambulate. Has burning and stinging with urination. Bre Castillo MA * Telephone Encounter - Mikayla Strange MD - 06/24/2024 8:39 AM EST Urine over weekend looked infected and was referred to the ER. Did she go?. How doing? documented in this encounterSelect [facility]12-30-2024 Telephone encounter Note * Telephone Encounter - Mikayla Strange MD - 06/24/2024 9:56 AM EST Ua was done not culture and a provider referred her to er based on that. If she is truly unable to urinate, to er [facility]12-30-2024 Telephone encounter Note* Telephone Encounter - Bre Castillo MA - 06/24/2024 9:41 AM EST Pt did not going to ER. She stated she had urine specimen dropped off on 06/21/24. See results. She states she has is unable to ambulate. Has burning and stinging with urination. Bre Castillo MA [facility]12-30-2024 Telephone encounter Note* Telephone Encounter - Kimberly Ovalle - 06/24/2024 9:05 AM EST Zackery is calling Mikayla Strange MD today with concern regarding Symptoms of a UTI and a sample her PT person dropped off at the office. She has a broken leg, she cannot walk. Her fever had gone to 103 and then it would drop. Today it is 100.2. she is asking for an antibiotic for the UTI. Patient has been identified by name and birthdate. Duration of symptoms: N/A Person calling: self Call patient at: at home [phone] (home) [phone] (cell) Was an appointment scheduled: No Closing statement: Symptom Call: Thank you for calling [facility], your call is very important. A nurse will call in approximately 2-4 hours during business hours. If this is an emergency, please contact 911. Kimberly Ovalle [facility]12-30-2024 Telephone encounter Note* Telephone Encounter - Mikayla Strange MD - 06/24/2024 8:39 AM EST Urine over weekend looked infected and was referred to the ER. Did she go?. How doing? [facility]12-29-2024 NoteHNO ID: [id number] Author: KERI OSPINA APRN.CNP Service: ? Author Type: Nurse Practitioner Type: Progress Notes Filed: 06/23/2024 17:38 Note Text: Telemedicine Visit - Distance Health Virtual Visit Note Patient seen on [employer] Video Visit platform. Location of patient: [place] I have communicated my name and active licensure. The patient's identity and physical location were verified at the time of this visit. Either the patient or their legal patient support representative has been informed of the risks and benefits of -- and alternatives to -- treatment through a remote evaluation and consents to proceed with the evaluation remotely. History of Present Illness Zackery Nunez is a 64 year old female with a history of UTI symptoms with fever Last UTI was a couple months ago Referral to ED for in person evaluation due to fever and recent UTI All questions answered Keri Ospina APRN.[facility]12-29-2024 History of Present illness Narrative* Keri Ospina APRN.CNP - 06/23/2024 5:34 PM EST Telemedicine Visit - Distance Health Virtual Visit Note Patient seen on [employer] Video Visit platform. Location of patient: [place] I have communicated my name and active licensure. The patient's identity and physical location wereverified at the time of this visit. Either the patient or their legal patient support representative has been informed of the risks and benefits of -- and alternatives to -- treatment through a remote evaluation andconsents to proceed with the evaluation remotely. History of Present Illness Zackery Nunez is a 64 year old female with a history of UTI symptoms with fever Last UTI was a couple months ago Referral to ED for in person evaluation due to fever and recent UTI All questions answered Keri Ospina APRN.CNP documented in this encounterSelect [facility]12-20-2024 Telephone encounter Note * Telephone Encounter - Mikayla Strange MD - 06/14/2024 2:43 PM EST noted [facility]12-20-2024 Miscellaneous Notes* Telephone Encounter - Mikayla Strange MD - 06/14/2024 2:43 PM EST noted * Telephone Encounter - Linda Madison RN - 06/14/2024 2:12 PM EST Jony from [facility] calling to update provider. States pt refused assisted and he had to let provider know. documented in this encounterSelect [facility]12-20-2024 Telephone encounter Note * Telephone Encounter - Linda Madison RN - 06/14/2024 2:12 PM EST Jony from [facility] calling to update provider. States pt refused assisted and he had to let provider know. [facility]12-16-2024 Telephone encounter Note* Telephone Encounter - Soraida Escudero LPN - 06/10/2024 3:29 PM EST Phoned Helen and went over notes below from Dr Strange with understanding. [facility]12-16-2024 Miscellaneous Notes* Telephone Encounter - Soraida Escudero LPN - 06/10/2024 3:29 PM EST Phoned Helen and went over notes below from Dr Strange with understanding. * Telephone Encounter - Mikayla Strange MD - 06/10/2024 3:26 PM EST Ok. * Telephone Encounter - Soraida Escudero LPN - 06/10/2024 2:44 PM EST Helen from [facility] calling asking for verbal order for assisted, patient isdizzy upon standing. She started her PT on Monday and today bp sitting was 120/80 upon standing [id number]. Patient can not get into the office very easy, she has external fixator on her leg. She sits on the couch a lot of the time. No dizziness sitting or turning her head, upon standing very dizzy. Can call the office to give the verbal order at [phone] or can call Helen back. Please advise documented in this encounterSelect [facility]12-16-2024 Telephone encounter Note * Telephone Encounter - Mikayla Strange MD - 06/10/2024 3:26 PM EST Ok. [facility]12-16-2024 Telephone encounter Note* Telephone Encounter - Soraida Escudero LPN - 06/10/2024 2:44 PM EST Helen from [facility] calling asking for verbal order for assisted, patient isdizzy upon standing. She started her PT on Monday and today bp sitting was 120/80 upon standing [id number]. Patient can not get into the office very easy, she has external fixator on her leg. She sits on the couch a lot of the time. No dizziness sitting or turning her head, upon standing very dizzy. Can call the office to give the verbal order at [phone] or can call Helen back. Please advise [facility]12-10-2024 Telephone encounter Note* Telephone Encounter - Soraida Escudero LPN - 06/04/2024 2:58 PM EST Phon ed [facility] left detailed message on voicemail with orders as below from Dr Strange. [facility]12-10-2024 Miscellaneous Notes* Telephone Encounter - Soraida Escudero LPN - 06/04/2024 2:58 PM EST [facility] left detailed message on voicemail with orders as below from Dr Strange. * Telephone Encounter - Mikayla Strange MD - 06/04/2024 2:09 PM EST Ok to do * Telephone Encounter - Makenna Crowder RN - 06/04/2024 12:14 PM EST Will from [facility] calling and asking if provider will follow orders for home health physical therapy and occupational therapy? Makenna Crowder RN documented in this encounterSelect [facility]12-10-2024 Telephone encounter Note * Telephone Encounter - Mikayla Strange MD - 06/04/2024 2:09 PM EST Ok to do [facility]12-10-2024 Telephone encounter Note* Telephone Encounter - Makenna Crowder RN - 06/04/2024 12:14 PM EST Will from [facility] [employer] calling and asking if provider will follow orders for home health physical therapy and occupational therapy? Makenna Crowder RN [facility]12-09-2024 NoteHNO ID: [id number] Author: SYDNI WAGGONER MD Service: ? Author Type: Physician Type: Progress Notes Filed: 06/09/2024 16:27 Note Text: ORTHOPAEDIC SURGERY OFFICE NOTE: SURGERY DATE: 1) 05/07/2024 SURGERY: 1) Open Treatment of the Right Periprosthetic Proximal Tibia Fracture with Internal Fixation 2) Right Lower Extremity Knee-Spanning Uniplanar External Fixator CHIEF COMPLAINT: Routine Post-Operative Follow-Up HISTORY OF PRESENT ILLNESS: Zackery Nunez is a 64 year old female who presents for routine post-operative follow-up from the above listed operation (see Surgery above for full details). At today's appointment, the patient reports doing well. The patient endorses controlled pain to the right knee. The patient has tolerated the right lower extremity knee-spanning external fixator and maintained non-weightbearing recommendations with the right lower extremity. The patient denies fevers and chills. The patient has no additional orthopaedic traumatic complaints at this time. Reviewed nursing note and current pain scale. PAST MEDICAL HISTORY Diagnosis Date Anxiety disorder Arthritis Chronic back pain Dr. Burks-pain management Depressive disorder, not elsewhere classified Diabetes (HCC) Pt reports she takes cinnamin tabs to manage her diabetes Essential hypertension, benign Fibromyalgia Glaucoma IBS (irritable bowel syndrome) Migraine, unspecified, without mention of intractable migraine without mention of status migrainosus PONV (postoperative nausea and vomiting) Pure hypercholesterolemia Rheumatoid arthritis (HCC) Sleep apnea pt states she snores frequently;though never worked-up for RUPESH Snoring PAST SURGICAL HISTORY Procedure Laterality Date [...] Never Smokeless tobacco: Never Vaping Use Vaping status: Never Used Substance Use Topics Alcohol use: No Drug use: No MEDICATIONS: Current Outpatient Medications Medication Sig buprenorphine (BUTRANS) 20 mcg/hour transdermal patch Apply 1 Patch as directed one time a week for 7 days. Last APPLIED 05/08 acetaminophen (TYLENOL) 325 mg tablet Take 2 tablets by mouth every 6 hours as needed for pain. gabapentin (NEURONTIN) 300 mg capsule Take 3 capsules by mouth daily at bedtime for 30 days. gabapentin (NEURONTIN) 300 mg capsule Take 3 capsules by mouth once daily for 30 days. Daily at noon polyethylene glycol 3350 17 gram packet Take 1 Packet by mouth once daily as needed. Dissolve dose in 4 - 8 ounces of liquid and take as directed. lisinopril (ZESTRIL) 10 mg tablet Take 1 tablet by mouth once daily. estradiol (ESTRACE) 0.01 % (0.1 mg/gram) vaginal cream Use 3 g vaginally once daily. atorvastatin (LIPITOR) 10 mg tablet Take 1 tablet by mouth once daily. (Patient taking differently: Take 10 mg by mouth daily at bedtime.) busPIRone HCl 30 mg tablet Take 1 tablet by mouth two times a day. omeprazole (PRILOSEC) 40 mg capsule Take 40 mg by mouth once daily. hyoscyamine sublingual (LEVSIN/SL) 0.125 mg Dissolve 1 tablet under the tongue every 4 hours as needed. citalopram (CELEXA) 40 mg tablet Take 1 tablet by mouth once daily. promethazine (PHENERGAN) 25 mg tablet Take 1 tablet by mouth every 6 hours as needed. SUMAtriptan (IMITREX) 50 mg tablet Take 1 tablet (50 mg) by mouth as needed. oxyCODONE-acetaminophen (PERCOCET) 5-325 mg tablet 1 tablet three times daily as needed. upadacitinib (RINVOQ ORAL) Take 15 mg by mouth. amitriptyline (ELAVIL) 10 mg tablet Take 1 tablet by mouth daily at bedtime. Cetirizine 10 mg cap Take by mouth. CALCIUM POLYCARBOPHIL (FIBER LAXATIVE ORAL) Take by mouth. multivitamin tablet Take 1 tablet by mouth once daily. latanoprost (XALATAN) 0.005 % ophthalmic solution 1 Drop daily at bedtime. docusate sodium (COLACE) 100 mg capsule Take 100 mg by mouth twice daily. No current facility-administered medications for this visit. ALLERGIES: ALLERGIES Allergen Reactions Compazine [Prochlor* Other: See Comments Pt reports it makes more nausea Vaibhav [Fexofenadi* Intoler (more content not included)...[facility]11-14-2024 NoteHNO ID: [id number] Author: KIRSTEN ROSARIO RN Service: Care Management Author Type: Registered Nurse Type: Care Mgt Progress Note Filed: 05/09/2024 14:42 Note Text: CARE MANAGEMENT DISCHARGE NOTE SERVICE DATE: May 09, 2024 SERVICE TIME: 2:40 PM Admission Date: 05/02/2024 LOS: 7 days Discharge Arrangement Discharge Arrangement: Residential Facility Services Arranged Provider Name: Hunter Caregiver Assessment Caregiver is ready, willing and able to meet the patient's needs as recommended by the inter-professional team: Yes Name of Caregiver: [facility] staff Transportation Arrangements Transportation Arrangements: Ambulance Transportation Agency and Phone #:: [facility] ( [facility] ) [phone] Date of Trip: 05/09/24 Time of Trip: 1630 Type of Service: BLS Non-emergency Is Patient Medicaid Pending?: No Destination: [facility] [address] [place] [id number] Handoff Communication: Handoff to: Specialty Fitting Room Maintenance Mechanic Specialty Fitting Room Maintenance Mechanic Name/Phone: Sheba Shaw Additional Information: Chart reviewed.Spoke to patient. Plan for DC today [facility]. Patient agreeable. [facility] to transport via cot at 1630 . Transport packet placed on front of chart. RN made aware. Current CM needs addressed. No new needs identified at this time. CM will continue to follow clinical course for further transitional, discharge or POC needs. Discharge Information Row Name ED to Hosp-Admission (Current) from 05/02/[address] [facility] Residential Facility Agency [facility] [id number] [place] [address] Phone# SIGNATURE: Kirsten Rosario RN PATIENT NAME: Zackery Nunez DATE: May 09, 2024 TIME: 2:40 PM CONTACT #: [phone] Note HNO ID: [id number] Author: KIRSTEN ROSARIO RN Service: Care Management Author Type: Registered Nurse Type: Care Mgt Progress Note Filed: 05/09/2024 12:28 Note Text: CARE MANAGEMENT PROGRESS NOTE SERVICE DATE: 05/09/2024 SERVICE TIME: 11:00 AM LOS: 7 days Post-Acute Discharge Planning Patient Goal(s): Less pain, General wellness [place] of Choice Explained: Discharge Planning Participant(s): Patient/Family Comments: Anticipated # of Days Until Discharge: Transport at Discharge: Needs Prior to Discharge: Needs Prior to Discharge: To Be Determined, Accepting Facility, Bed Availability, Precertification, Discharge Transportation Post-Acute Discharge Plan: Chart reviewed, spoke to patient at bedside. IMM delivered to bedside and explained to patient. SIGNATURE: Kirsten Rosario RN PATIENT NAME: Zackery Nunez DATE: May 09, 2024 TIME: 11:00 AM PAGER/CONTACT #: [phone] 05-09-2024 NoteHNO ID: [id number] Author: AMADO BEAL ? Service: Care Management Author Type: ? Type: Care Mgt Progress Note Filed: 05/09/2024 10:41 Note Text: [facility] ([facility]) PRECERT [facility] for [facility]. Precert approved for dates: 05/09/2024 - 05/15/2024. For any additional questions regarding approvals, transport or care management needs, please contact the CM assigned to this patient in the Treatment Team. SIGNATURE: Amado Beal DATE: May 09, 2024 TIME: 10:40 AM[facility]11-14-2024 [id number] (AGENT OF COVID-19) RNA: Not detected INFLUENZA A RNA: Not detected INFLUENZA B RNA: Not detected RESPIRATORY SYNCYTIAL VIRUS (RSV) RNA: Not detectedMaine Medical CenterComment on above:Performed By: #### [id number] #### [facility] CLIA [id number] [address] [place] OF [id number] NoteHNO ID: [id number] Author: DEMARIO YANG APRN.MATH AND SCIENCES DEPARTMENT CHAIR Service: Pain Management Author Type: Nurse Practitioner Type: Progress Notes Filed: 05/09/2024 10:17 Note Text: INPATIENT PAIN MANAGEMENT NOTE [facility] Zackery Nunez [id number]-* Pain Management Diagnoses: Right periprosthetic proximal tibial fracture; history of right TKA, chronic pain, post op pain, muscle spasms Interval HPI: No acute o/n events Pain Assessment: Still reporting ongoing pain with muscle spasms. Has not tried flexeril yet Symptom Meds Last 24 Hrs: Tylenol 1G q8 Elavil 20 mg at HS Buspar 30 mg BID Celexa 40mg daily Flexeril 5 mg TID prn Wesley 600 daily, 900 daily Levsin prn x0 Zofran x0 Phenergan prn x1 Senna Imitrex x0 Opioid meds last 24 hours: Butrans patch Oxy 5-10 q3h prn x5 Total MME last 24 hours: 75 mg plus patch Subjective 64-year-old female with history of chronic multifactorial pain (RA, chronic back pain, right TKA 10 years ago) opiate dependent presented 05/02 after injury on her deck. Patient's left leg fell through the deck causing her right leg to bend awkwardly with immediate severe pain in her right lower extremity inability to ambulate. Patient was seen at [place] ED and transferred to [facility] for surgical intervention of right periprosthetic proximal tibia fracture Patient goes to Dr. Ward in [place] for pain management since 2012. Home pain regimen includes Butrans 20 mcg patch (placed yesterday), Percocet 5/325 up to 3 tabs daily, gabapentin 900 mg at 12N and 600 mg at 10PM. She lives at home with her . Home Opioid Regimen: OARRS Check: PDMP website checked and validated. All prescriptions have been APPROPRIATELY filled. No suspicious activity was identified. 58 prescriptions from 1 prescriber. Opiate dependent. Most recent prescriptions: 03/26, 04/29 Butrans 20 mcg patch #4 04/18 Percocet 5/325 #84 04/10 gabapentin 300 mg #4 mid 50 (90-day supply) Information obtained from chart review, discussion with patient/family, and discussion with primary team HPI may have been copied from previous pain team consult notes. PAST MEDICAL HISTORY Diagnosis Date Anxiety disorder Arthritis Chronic back pain Dr. Burks-pain management Depressive disorder, not elsewhere classified Diabetes (HCC) Pt reports she takes cinnamin tabs to manage her diabetes Essential hypertension, benign Fibromyalgia Glaucoma IBS (irritable bowel syndrome) Migraine, unspecified, without mention of intractable migraine without mention of status migrainosus PONV (postoperative nausea and vomiting) Pure hypercholesterolemia Rheumatoid arthritis (HCC) Sleep apnea pt states she snores frequently;though never worked-up for RUPESH Snoring PAST MEDICAL HISTORY Diagnosis Date Anxiety disorder Arthritis Chronic back pain Dr. Burks-pain management Depressive disorder, not elsewhere classified Diabetes (HCC) Pt reports she takes cinnamin tabs to manage her diabetes Essential hypertension, benign Fibromyalgia Glaucoma IBS (irritable bowel syndrome) Migraine, unspecified, without mention of intractable migraine without mention of status migrainosus PONV (postoperative nausea and vomiting) Pure hypercholesterolemia Rheumatoid arthritis (HCC) Sleep apnea pt states she snores frequently;though never worked-up for RUPESH Snoring PAST SURGICAL HISTORY Procedure Laterality Date [...] Never Smokeless tobacco: Never Vaping Use Vaping status: Never Used Substance Use Topics Alcohol use: No Drug use: No Review of Systems Gastrointestinal: Positive for constipation. Musculoskeletal: Positive for myalgias. Leg pain All other systems reviewed and are negative. Objective PHYSICAL EXAM: Vitals: 05/08/24 1856 05/08/24 2314 05/08/24 2318 05/09/24 0359 BP: 105/50 (!) 116/49 (!) 136/49 128/59 Pulse: 82 86 76 Resp: Temp: 37.5 ?C (99.5 ?F) 36.8 ?C (98.2 ?F) 37.3 ?C (99.1 ?F) TempSrc: Oral Oral SpO2: 95% 99 (more content not included)...[facility] 05-09-2024 NoteHNO ID: [id number] Author: SYDNI WAGGONER MD Service: Orthopaedic Surgery Author Type: Physician Type: Progress Notes Filed: 05/09/2024 11:52 Note Text: Orthopaedic Trauma Surgery Attending Addendum Reviewed resident Progress Note. The patient was personally seen and examined on 05/09/2024. Agree with resident history, physical examination, assessment and plan unless otherwise noted. -Management per orthopaedic trauma surgery -Maintain external fixator to the right lower extremity -PT/OT: Non-weightbearing with the right lower extremity -Post-Operative Antibiotics: Ancef 2g IV q8H x 2 doses - complete -DVT PPX: SCD to the left lower extremity; Lovenox 40 mg daily for 21 days -Dressings: Negative-pressure wound dressing to the right medial knee incision set on continuous suction at 125 mm of Hg (will convert to home-going Prevena on day of discharge); Xeroform and Kerlix around the pin sites -Pain control per pain management; ice and elevation of the right lower extremity -Consultations: Medicine -Discharge to SNF when arrangements are complete Sydni Waggoner MD Orthopaedic Trauma Surgery 05/09/2024 11:51 AM ORTHOPAEDIC SURGERY DAILY PROGRESS NOTE ASSESSMENT: 64 year old female POD # 6 s/p R knee external fixator for periprosthetic tibia fracture and POD #2 from ORIF R periprosthetic tibial plateau fracture PLAN: - Management per ortho - Pain control. - Weight Bearing Status: NWB RLE. - Dressing(s): soft dressings to pin sites, wound vac to incisional site, will need prevena at discharge - PT/OT: Evaluation AND recommendations. - DVT PPx: SCDs. Lovenox 40 mg daily x 21 days. - Antibiotic PPx: Ancef 2 g Q8H x 2 doses. - [place]: none. - Imaging: none. - medicine consulted for continued fevers - Anticipated Length of Stay/Disposition: SNF planning INTERVAL HPI: Fever documented again overnight. Patient complaining of chills overnight, but this morning feeling warm and asking for temperature in room to be turned down. Encouraged patient to continue using incentive spirometer. The patient denies nausea/vomiting, and new numbness/tingling to RLE. OBJECTIVE: BP 128/59 Pulse 76 Temp 37.3 ?C (99.1 ?F) (Oral) Resp 18 Ht 165.1 cm (5' 5) Wt 90.7 kg (200 lb) SpO2 99% BMI 33.28 kg/m? Intake/Output Summary (Last 24 hours) 05/08 2300 - 05/09 0659 In: 360 [PO:360] Out: 600 [Urine:600] Exam: General: Pt is alert, resting in bed, no acute distress, cooperative throughout the exam and interview, answers questions appropriately Extremities: Right Lower Extremity: Knee spanning ex fix in place in good position. Pin sites c/d/I. Dressing clean, dry and intact. SILT S/S/SP/DP/T Motor intact DF/PF/EHL DP pulse palpable, foot warm, BCR toes Compartments soft, compressible. Tolerates passive stretch of digits. Labs: Recent Labs 05/09/24 0404 05/08/24 0048 05/07/24 0005 CREAT 0.85 0.85 0.81 BUN 11 10 10 NA 131* 133* 131* K 4.0 4.2 4.1 CHLOR 94* 97* 96* CO2 28 26 24 ANION 9 10 11 GLUC 125* 137* 104* CA 8.7 8.3* 8.6 WBC 9.78 9.33 8.22 HB 8.6* 8.7* 8.8* HCT 27.2* 27.4* 27.6* PLT 236 222 199 COAGS: APTT 32.9 05/02/2024 INR 1.1 05/02/2024 SED RATE/CRP: WSR 32 05/22/2019 WSR 36 05/14/2019 CRP 2.0 05/22/2019 Imaging: No new orthopaedic imaging to review Sahara Royal MD Orthopedic Surgery 05/09/2024 5:53 [facility]11-13-2024 NoteHNO ID: [id number] Author: KIRSTEN ROSARIO RN Service: Care Management Author Type: Registered Nurse Type: Care Mgt Progress Note Filed: 05/08/2024 16:10 Note Text: CARE MANAGEMENT PROGRESS NOTE SERVICE DATE: 05/08/2024 SERVICE TIME: 4:09 PM LOS: 6 days Post-Acute Discharge Planning Patient Goal(s): Less pain, General wellness [place] of Choice Explained: Discharge Planning Participant(s): Patient/Family Comments: Anticipated # of Days Until Discharge: Transport at Discharge: Needs Prior to Discharge: Needs Prior to Discharge: To Be Determined, Accepting Facility, Bed Availability, Precertification, Discharge Transportation Post-Acute Discharge Plan: Chart reviewed, spoke to patient and at bedside. SNF option received and referrals sent. [facility] in [place] is able to accept. 7000 tasked to [facility]. Precert start tasked. CM will continue to follow clinical course for further transitional, discharge or POC needs. SIGNATURE: Kirsten Rosario RN PATIENT NAME: Zackery Nunez DATE: May 08, 2024 TIME: 4:08 PM PAGER/CONTACT #: [phone] 05-08-2024 NoteHNO ID: [id number] Author: NATE ACOSTA MD Service: Orthopaedic Surgery Author Type: Resident Type: Plan of Care Filed: 05/08/2024 15:59 Note Text: Orthopaedic Surgery Plan of Care Orthopaedic surgery paged by nursing staff concerning fever 102.2. The patient was seen and evaluated. The patient currently complains of chills that started earlier today. She endorses some increased confusion yesterday which has improved some today. She endorses dysuria. Pt states she has been using her incentive spirometer. The patient denies increased pain to right leg. Denies fevers, chills, nausea, vomiting, and new numbness/tingling. Physical Exam: The patient is alert, answering questions appropriately, cooperative with exam and interview. Ex-fix pin sites without excess erythema, no evidence of drainage. Assessment/Plan: This is a 64 year old patient with postoperative fevers and chills. The symptoms are unlikely due to surgical site infection, more likely secondary to atelectasis or UTI. We will consult medicine for assistance in further management. We will otherwise continue current plan of care outlined in the previous orthopaedic surgery progress note. Please page orthopaedic surgery at #[phone] for additional questions or concerns. Nate Acosta MD Orthopaedic Surgery May 08, 2024 3:47 [facility]11-13-2024 NoteHNO ID: [id number] Author: KIRSTEN ROSARIO RN Service: Care Management Author Type: Registered Nurse Type: Care Mgt Progress Note Filed: 05/08/2024 15:50 Note Text: CARE MANAGEMENT PROGRESS NOTE SERVICE DATE: 05/08/2024 SERVICE TIME: 10:58 AM LOS: 6 days Post-Acute Discharge Planning Patient Goal(s): Less pain, General wellness [place] of Choice Explained: Discharge Planning Participant(s): Patient/Family Comments: Anticipated # of Days Until Discharge: Transport at Discharge: Needs Prior to Discharge: Needs Prior to Discharge: To Be Determined, Accepting Facility, Bed Availability, Precertification, Discharge Transportation Post-Acute Discharge Plan: Chart reviewed. New referral sent to [facility] ([facility] Will f/u with updates. CM will continue to follow clinical course for further transitional, discharge or POC needs. Update May 08, 2024 3:49 PM Additional choices finally given. Referrals sent to: [facility] [place] SIGNATURE: Kirsten Rosario RN PATIENT NAME: Zackery Nunez DATE: May 08, 2024 TIME: 10:58 AM PAGER/CONTACT #: [phone] 05-08-2024 NoteHNO ID: [id number] Author: SIMONE ZAMARRIPA APRN.OBSTETRICS TECHNICIAN Service: Pain Management Author Type: Nurse Specialist Type: Progress Notes Filed: 05/08/2024 12:29 Note Text: INPATIENT PAIN MANAGEMENT NOTE [facility] Zackery Nunez [id number]-* Pain Management Diagnoses: Right periprosthetic proximal tibial fracture; history of right TKA, chronic pain, post op pain, muscle spasms Interval HPI: pt to go to SNF when stable. Constipation Pain Assessment: pain still not controlled. Spasms, neuropathy. Symptom Meds Last 24 Hrs: Tylenol 1G q8 Buspar 30mg BID Celexa 40mg daily Wesley 600 daily, 900 daily Levsin prn x0 Zofran x0 Phenergan prn x1 Senna Imitrex x0 Opioid meds last 24 hours: Butrans patch Oxy 5-10 q4h prn x3 Total MME last 24 hours: 45mg plus patch Subjective 64-year-old female with history of chronic multifactorial pain (RA, chronic back pain, right TKA 10 years ago) opiate dependent presented 05/02 after injury on her deck. Patient's left leg fell through the deck causing her right leg to bend awkwardly with immediate severe pain in her right lower extremity inability to ambulate. Patient was seen at [place] ED and transferred to [facility] for surgical intervention of right periprosthetic proximal tibia fracture Patient goes to Dr. Ward in [place] for pain management since 2012. Home pain regimen includes Butrans 20 mcg patch (placed yesterday), Percocet 5/325 up to 3 tabs daily, gabapentin 900 mg at 12N and 600 mg at 10PM. She lives at home with her . Home Opioid Regimen: OARRS Check: PDMP website checked and validated. All prescriptions have been APPROPRIATELY filled. No suspicious activity was identified. 05/08/2024 by Simone Zamarripa APRN.OBSTETRICS TECHNICIAN 58 prescriptions from 1 prescriber. Opiate dependent. Most recent prescriptions: 03/26, 04/29 Butrans 20 mcg patch #4 04/18 Percocet 5/325 #84 04/10 gabapentin 300 mg #4 mid 50 (90-day supply) Information obtained from chart review, discussion with patient/family, and discussion with primary team HPI may have been copied from previous pain team consult notes. PAST MEDICAL HISTORY Diagnosis Date Anxiety disorder Arthritis Chronic back pain Dr. Burks-pain management Depressive disorder, not elsewhere classified Diabetes (HCC) Pt reports she takes cinnamin tabs to manage her diabetes Essential hypertension, benign Fibromyalgia Glaucoma IBS (irritable bowel syndrome) Migraine, unspecified, without mention of intractable migraine without mention of status migrainosus PONV (postoperative nausea and vomiting) Pure hypercholesterolemia Rheumatoid arthritis (HCC) Sleep apnea pt states she snores frequently;though never worked-up for RUPESH Snoring PAST MEDICAL HISTORY Diagnosis Date Anxiety disorder Arthritis Chronic back pain Dr. Burks-pain management Depressive disorder, not elsewhere classified Diabetes (HCC) Pt reports she takes cinnamin tabs to manage her diabetes Essential hypertension, benign Fibromyalgia Glaucoma IBS (irritable bowel syndrome) Migraine, unspecified, without mention of intractable migraine without mention of status migrainosus PONV (postoperative nausea and vomiting) Pure hypercholesterolemia Rheumatoid arthritis (HCC) Sleep apnea pt states she snores frequently;though never worked-up for RUPESH Snoring PAST SURGICAL HISTORY Procedure Laterality Date [...] Never Smokeless tobacco: Never Vaping Use Vaping status: Never Used Substance Use Topics Alcohol use: No Drug use: No Review of Systems Gastrointestinal: Positive for constipation. Musculoskeletal: Positive for myalgias. Leg pain All other systems reviewed and are negative. Objective PHYSICAL EXAM: Vitals: 05/07/24 2020 05/07/24 2142 05/07/24 2310 05/08/24 0337 BP: 144/69 115/59 148/74 Pulse: 96 79 84 Resp: 18 18 18 Temp: (!) 38.9 ?C (102.1 ?F) (!) 38.6 ?C (101.5 ?F) 37.3 ?C (99.2 ?F) 37.3 ?C (99.2 ?F) TempSrc: Oral Oral Oral Oral SpO2 (more content not included)...[facility]11-13-2024 Note HNO ID: [id number] Author: SYDNI WAGGONER MD Service: Orthopaedic Surgery Author Type: Physician Type: Progress Notes Filed: 05/08/2024 20:08 Note Text: Orthopaedic Trauma Surgery Attending Addendum Reviewed resident Progress Note. The patient was personally seen and examined on 05/08/2024. Agree with resident history, physical examination, image interpretation, assessment and plan unless otherwise noted. -Management per orthopaedic trauma surgery -Maintain external fixator to the right lower extremity -PT/OT: Non-weightbearing with the right lower extremity -Post-Operative Antibiotics: Ancef 2g IV q8H x 2 doses - complete -DVT PPX: SCD to the left lower extremity; Lovenox 40 mg daily for 21 days -Dressings: Negative-pressure wound dressing to the right medial knee incision set on continuous suction at 125 mm of Hg (will convert to home-going Prevena on day of discharge); Xeroform and Kerlix around the pin sites -Pain control per pain management; ice and elevation of the right lower extremity -Consultations: Medicine -Discharge to SNF when arrangements are complete Sydni Waggoner MD Orthopaedic Trauma Surgery 05/08/2024 8:07 PM ORTHOPAEDIC SURGERY DAILY PROGRESS NOTE ASSESSMENT: 64 year old female POD # 5 s/p R knee external fixator for periprosthetic tibia fracture. PLAN: - Management per ortho - Pain control. - Weight Bearing Status: NWB RLE. - Dressing(s): soft dressings to pin sites, wound vac to incisional site, will need prevena at discharge - PT/OT: Evaluation AND recommendations. - DVT PPx: SCDs. Lovenox 40 mg daily x 21 days. - Antibiotic PPx: Ancef 2 g Q8H x 2 doses. - Malcolm: none. - Imaging: none. - Anticipated Length of Stay/Disposition: SNF planning/no further orthopedic surgical intervention, patient will remain with external fixator to R knee and will be discharged with Prevena wound vac. INTERVAL HPI: One fever documented overnight. This morning patient is doing better, not feeling cold or having chills. The patient denies nausea/vomiting, and new numbness/tingling to RLE. OBJECTIVE: BP 148/74 Pulse 84 Temp 37.3 ?C (99.2 ?F) (Oral) Resp 18 Ht 165.1 cm (5' 5) Wt 90.7 kg (200 lb) SpO2 96% BMI 33.28 kg/m? Intake/Output Summary (Last 24 hours) 05/07 2300 - 05/08 0659 In: 100 [IV:100] Out: - Exam: General: Pt is alert, resting in bed, no acute distress, cooperative throughout the exam and interview, answers questions appropriately Extremities: Right Lower Extremity: Knee spanning ex fix in place in good position. Pin sites c/d/I. Dressing clean, dry and intact. SILT S/S/SP/DP/T Motor intact DF/PF/EHL DP pulse palpable, foot warm, BCR toes Compartments soft, compressible. Tolerates passive stretch of digits. Labs: BMP: Sodium 138 05/05/2024 Potassium 4.4 05/05/2024 Chloride 101 05/05/2024 CO2 27 05/05/2024 BUN 8 05/05/2024 Creatinine 0.90 05/05/2024 Glucose 95 05/05/2024 CBC: WBC 10.83 05/05/2024 Hemoglobin 9.9 05/05/2024 Hematocrit 30.4 05/05/2024 Platelet Count 193 05/05/2024 COAGS: APTT 32.9 05/02/2024 INR 1.1 05/02/2024 SED RATE/CRP: WSR 32 05/22/2019 WSR 36 05/14/2019 CRP 2.0 05/22/2019 Imaging: No new orthopaedic imaging to review Sahara Royal MD Orthopedic Surgery 05/08/2024 5:53 [facility]11-12-2024 NoteHNO ID: [id number] Author: PERLA VILA MD Service: Anesthesiology Author Type: Anesthesiologist Type: Anesthesia Procedure Notes Filed: 05/07/2024 17:18 Note Text: ANESTHESIOLOGY PROCEDURE NOTE Peripheral Nerve Block General Information Procedure Start Time/Medication Administration: 05/07/2024 5:05 PM Procedure End time: 05/07/2024 5:12 PM Patient location during procedure: PACU Timeout Performed Pre-procedure: timeout performed Patient identity confirmed: arm band and patient Reason for block: post-op pain management/at surgeon's request Staffing Anesthesiologist: Perla Vila MD Performed by: anesthesiologist Preparation Sterility Preparation: hand hygiene performed prior to procedure, mask used Site Prep: Chloraprep Procedure Details Patient Position: supine Monitoring: Pulse OX, EKG and NIBP Block Type Lower Extremity: distal femoral (adductor canal) Laterality: right Injection Technique: single-shot Ultrasound Guided: Yes Image in Chart: no Local Infiltration: Yes Needle Needle Type: echogenic Needle Gauge: 21 G Needle Length: 83 mm Needle Localization: anatomical landmarks and ultrasound Assessment Injection assessment: negative aspiration, no paresthesia on injection, incremental injection and local visualized surrounding nerve on ultrasound Post-Procedure Neuro Exam Expected Regional Anesthesia: Yes Medications Administered ropivacaine (PF) 2 mg/mL (0.2 %) injection (NAROPIN) - peripheral nerve block 20 mL - 05/07/2024 5:05:00 PM SIGNATURE: Perla Vila MD PATIENT NAME: Zackery Nunez DATE: May 07, 2024 TIME: 5:17 PM [facility]: [id number] NoteHNO ID: [id number] Author: VESNA JACOME RN Service: ? Author Type: Registered Nurse Type: Nursing Progress Note Filed: 05/07/2024 17:09 Note Text: Dr. Vila at bedside to [facility]24 NoteHNO ID: [id number] Author: TANJA NOLAND APRN.TEACHERS' ASSISTANT Service: Anesthesiology Author Type: Nurse Electric Locomotive Firer/Fireman Type: Anesthesia Procedure Notes Filed: 05/07/2024 14:51 Note Text: ANESTHESIOLOGY PROCEDURE NOTE Airway General Information Procedure Start Time/Medication Administration: 05/07/2024 2:34 PM Procedure End Time: 05/07/2024 2:35 PM Patient location during procedure: OR Timeout Performed Pre-procedure: timeout performed Consent Obtained: Yes Patient identity confirmed: arm band and patient Staffing TEACHERS' ASSISTANT: Tanja Noland APRN.TEACHERS' ASSISTANT Performed by: anesthesiologist and TEACHERS' ASSISTANT Indications and Patient Condition Indications for airway management: anesthesia and airway protection Preoxygenated: yes anesthesia circuit Patient position: sniffing Method: asleep Cricoid Pressure: No Manual In-Line Stabilization: No Difficult Mask: No Final Airway Details Final airway type: endotracheal airway Final Endotracheal Airway: ETT Cuffed: yes Successful intubation technique: video laryngoscopy Devices used: Dao Endotracheal tube insertion site: oral Blade: Margo Blade size: #3 ETT size (mm): 7.0 Measured from: lips Measurement (cm): 22 Placement verified by: chest auscultation and capnometry Cormack-Lehane Classification: grade I - full view of glottis Number of attempts at approach: 1 Failed airway: no Unrecognized esophageal intubation: no Airway not difficult SIGNATURE: Tanja Noland APRN.CRNA PATIENT NAME: Zackery Nunez DATE: May 07, 2024 TIME: 2:50 PM CSN: [id number]24 NoteHNO ID: [id number] Author: KIRSTEN ROSARIO RN Service: Care Management Author Type: Registered Nurse Type: Care Mgt Progress Note Filed: 05/07/2024 14:48 Note Text: CARE MANAGEMENT PROGRESS NOTE SERVICE DATE: 05/07/2024 SERVICE TIME: 2:47 PM LOS: 5 days Post-Acute Discharge Planning Patient Goal(s): Less pain, General wellness [place] of Choice Explained: Discharge Planning Participant(s): Patient/Family Comments: Anticipated # of Days Until Discharge: Transport at Discharge: Needs Prior to Discharge: Needs Prior to Discharge: To Be Determined, Accepting Facility, Bed Availability, Precertification, Discharge Transportation Post-Acute Discharge Plan: Chart reviewed, patient in O.R. today. [facility] is unable to accept. Awaiting additional choices to send referrals. CM will continue to follow clinical course for further transitional, discharge or POC needs. SIGNATURE: Kirsten Rosario RN PATIENT NAME: Zackery Nunez DATE: May 07, 2024 TIME: 2:47 PM PAGER/CONTACT #: [phone]24 NoteHNO ID: [id number] Author: DAFNE LEVINE MD Service: Pain Management Author Type: Physician Type: Progress Notes Filed: 05/07/2024 09:17 Note Text: Name: ZACKERY NUNEZ Age: [age] year old PAIN MANAGEMENT: Right periprosthetic proximal tibial fracture; history of right TKA, chronic pain Pain Description: Patient resting comfortably; some throbbing pain RLE near external fixator. Hopes to go to the OR later this week Interval HPI: Stable overnight; slept okay. Afebrile. 05/03 RLE external fixator placed, closed treatment of right patellar fracture 24H Comfort Meds: Tylenol 1 g x 3 Elavil 10 mg bedtime x 1 Butrans 20 mcg patch (to be changed 05/08) Gabapentin 600 mg x 1, 900 mg x 1 Dilaudid 0.5 mg IV x 4 Oxycodone 10 mg x 4, 5 mg x 1 Subjective HPI: 64-year-old female with history of chronic multifactorial pain (RA, chronic back pain, right TKA 10 years ago) opiate dependent presented 05/02 after injury on her deck. Patient's left leg fell through the deck causing her right leg to bend awkwardly with immediate severe pain in her right lower extremity inability to ambulate. Patient was seen at [place] ED and transferred to [facility] for surgical intervention of right periprosthetic proximal tibia fracture Patient goes to Dr. Ward in [place] for pain management since 2012. Home pain regimen includes Butrans 20 mcg patch (placed yesterday), Percocet 5/325 up to 3 tabs daily, gabapentin 900 mg at 12N and 600 mg at 10PM. She lives at home with her . OARRS Review: 58 prescriptions from 1 prescriber. Opiate dependent. Most recent prescriptions: 03/26, 04/29 Butrans 20 mcg patch #4 04/18 Percocet 5/325 #84 04/10 gabapentin 300 mg #4 mid 50 (90-day supply) Current Facility-Administered Medications Medication Dose Route Frequency Provider Last Rate Last Admin lisinopril 10 mg tab(s) (ZESTRIL) 10 mg ORAL DAILY Sydni Waggoner MD 10 mg at 05/06/24 08 oxyCODONE IR 5-10 mg tab(s) (ROXICODONE) 5-10 mg ORAL q 4 H PRN Dafne Levine MD 10 mg at 05/07/24 08 HYDROmorphone 0.5 mg injection (DILAUDID) 0.5 mg INTRAVENOUS q 3 H PRN Dafne Levine MD 0.5 mg at 05/06/241946 calcium-cholecalciferol (D3) 2 tablet tab(s) (OSCAL+D 250) 2 tablet ORAL BID Sahara Royal MD 2 tablet at 05/06/241946 senna 17.2 mg tab(s) (SENOKOT) 17.2 mg ORAL AT BEDTIME Sahara Royal MD 17.2 mg at 05/03/241954 enoxaparin 40 mg injection (LOVENOX) 40 mg SUBCUTANEOUS q 24 HR Sahara Royal MD 40 mg at 05/06/24822 amitriptyline 10 mg tab(s) (ELAVIL) 10 mg ORAL AT BEDTIME Sahara Royal MD 10 mg at 05/06/241946 citalopram 40 mg tab(s) (CeleXA) 40 mg ORAL DAILY Sahara Royal MD 40 mg at 05/06/24822 promethazine 25 mg tab(s) (PHENERGAN) 25 mg ORAL q 6 H PRN Sahara Royal MD SUMAtriptan 50 mg tab(s) (IMITREX) 50 mg ORAL PRN Sahara Royal MD hyoscyamine sublingual 0.125 mg tab(s) (LEVSIN SL) 0.125 mg SUBLINGUAL q 4 H PRN Sahara Royal MD atorvastatin 10 mg tab(s) (LIPITOR) 10 mg ORAL DAILY Sahara Royal MD 10 mg at 05/06/241946 busPIRone 30 mg tab(s) (BUSPAR) 30 mg ORAL BID Sahara Royal MD 30 mg at 05/06/241945 estradiol 3 g vaginal cream (ESTRACE) [id number] Applicator VAGINAL DAILY Sahara Royal MD 3 g at 05/06/24823 NaCl 0.9% iv flush bag 20 mL INTRAVENOUS PRN Sahara Royal MD ondansetron (PF) 4 mg injection (ZOFRAN) 4 mg INTRAVENOUS q 6 H PRN aShara Royal MD 4 mg at 05/06/244 melatonin 3 mg tab(s) 3 mg ORAL AT BEDTIME PRN Sahara Royal MD 3 mg at 05/06/241946 acetaminophen 1,000 mg tab(s) (TYLENOL) 1,000 mg ORAL q 8 H Sahara Royal MD 1,000 mg at 05/07/[address] 40 mg tab(s) (PROTONIX) 40 mg ORAL DAILY (6 AM) Sahara Royal MD 40 mg at 05/07/24441 senna-docusate 8.6-50 mg 1 tablet (SENNA-S) 1 tablet ORAL BID Sahara Royal MD 1 tablet at 05/06/241946 gabapentin 900 mg cap(s) (NEURONTIN) 900 mg ORAL DAILY AT 12 PM Sahara Royal MD 900 mg at 05/06/24 1150 gabapentin 600 mg cap(s) (NEURONTIN) 600 mg ORAL AT BEDTIME Sahara Royal MD 600 mg at 05/06/241945 buprenorphine transdermal patch 20 mcg/hr (BUTRANS) 1 Patch TRANSDERMAL 1/WK Sahara Royal MD [START ON 05/08/2024] buprenorphine - REMOVE PATCH OTHER 1/WK Sahara Ryoal MD And buprenorphine - VERIFY PATCH OTHER q 8 H Sahara Royal MD lisinopril (ZESTRIL) 10 mg tablet, Take 1 tablet by mouth once daily., Disp: 90 tablet, Rfl: 3 atorvastatin (LIPITOR) 10 mg tablet, Take 1 tablet by mouth once daily. (Patient taking differently: Take 10 mg by mouth daily at bedtime.), Disp: 90 tablet, Rfl: 3 busPIRone HCl 30 mg tablet, Take 1 tablet by mouth two times a day., Disp: 180 tablet, Rfl: 3 omeprazole (PRILOSEC) 40 mg capsule, Take 40 mg by mouth once daily., Disp: , Rfl: citalopram (more content not included)...[facility]-12[facility]2024 NoteHNO ID: [id number] Author: SYDNI WAGGONER MD Service: Orthopaedic Surgery Author Type: Physician Type: Progress Notes Filed: 05/07/2024 13:24 Note Text: Orthopaedic Trauma Surgery Attending Addendum Reviewed resident Progress Note. The patient was personally seen and examined on 05/07/2024. Agree with resident history, physical examination, assessment and plan unless otherwise noted. NPO. Consent in chart. OR today. Sydni Waggoner MD Orthopaedic Trauma Surgery 05/07/2024 1:24 PM ORTHOPAEDIC SURGERY DAILY PROGRESS NOTE ASSESSMENT: 64 year old female POD # 4 s/p R knee external fixator for periprosthetic tibia fracture. PLAN: -Management per orthopaedic trauma surgery -Maintain external fixator to the right lower extremity -PT/OT: Non-weightbearing with the right lower extremity -Post-Operative Antibiotics: Ancef 2g IV q8H x 2 doses - completed -DVT PPX: SCD to the left lower extremity; Lovenox 40 mg daily -Malcolm: None -Dressings: Xeroform and Kerlix around the pin sites -Pain control; ice and elevation of the right lower extremity -Consultations: Medicine - stable, signed off -OR this week for open reduction internal fixation of the right periprosthetic proximal tibia fracture pending soft tissue swelling -Dispo to SNF INTERVAL HPI: No acute events overnight. This morning patient is doing better, not feeling cold or having chills. The patient denies nausea/vomiting, and new numbness/tingling to RLE. OBJECTIVE: BP 111/54 Pulse 86 Temp 36.7 ?C (98.1 ?F) (Oral) Resp 18 Ht 165.1 cm (5' 5) Wt 90.7 kg (200 lb) SpO2 96% BMI 33.28 kg/m? Intake/Output Summary (Last 24 hours) 05/06 2300 - 05/07 0659 In: - Out: 400 [Urine:400] Exam: General: Pt is alert, resting in bed, no acute distress, cooperative throughout the exam and interview, answers questions appropriately Extremities: Right Lower Extremity: Knee spanning ex fix in place in good position. Pin sites c/d/I SILT S/S/SP/DP/T Motor intact DF/PF/EHL DP pulse palpable, foot warm, BCR toes Compartments soft, compressible. Tolerates passive stretch of digits. Labs: BMP: Sodium 138 05/05/2024 Potassium 4.4 05/05/2024 Chloride 101 05/05/2024 CO2 27 05/05/2024 BUN 8 05/05/2024 Creatinine 0.90 05/05/2024 Glucose 95 05/05/2024 CBC: WBC 10.83 05/05/2024 Hemoglobin 9.9 05/05/2024 Hematocrit 30.4 05/05/2024 Platelet Count 193 05/05/2024 COAGS: APTT 32.9 05/02/2024 INR 1.1 05/02/2024 SED RATE/CRP: WSR 32 05/22/2019 WSR 36 05/14/2019 CRP 2.0 05/22/2019 Imaging: No new orthopaedic imaging to review Sahara Royal MD Orthopedic Surgery 05/07/2024 5:53 [facility]11-11-2024 NoteHNO ID: [id number] Author: SYDNI WAGGONER MD Service: Care Management Author Type: Physician Type: Care Mgt Progress Note Filed: 05/06/2024 11:31 Note Text: Physician Certification of Less Than 30 Days Skilled Needs Earliest Possible Discharge Date: 05/06/24 To the best of my knowledge, all information provided about the individual is a true and an accurate reflection of Zackery Nunez's needs. I certify that following the inpatient level of care, a post-acute nursing facility stay is required for less than 30 days related to the condition(s) for which the patient was treated during the inpatient level of care: Principal Problem: Periprosthetic fracture around prosthetic knee, initial encounter Active Problems: Obesity, Class I, BMI 30-34.9 Resolved Problems: * No resolved hospital problems. * Attending Physician: Sydni Waggoner MD Michael Makowski, MD Orthopaedic Trauma Surgery 05/06/2024 11:31 [facility]11-11-2024 NoteHNO ID: [id number] Author: KIRSTEN ROSARIO RN Service: Care Management Author Type: Registered Nurse Type: Care Mgt Progress Note Filed: 05/06/2024 09:42 Note Text: CARE MANAGEMENT PROGRESS NOTE SERVICE DATE: 05/06/2024 SERVICE TIME: 9:31 AM LOS: 4 days Post-Acute Discharge Planning Patient Goal(s): Less pain, General wellness [place] of Choice Explained: Discharge Planning Participant(s): Patient/Family Comments: Anticipated # of Days Until Discharge: Transport at Discharge: Needs Prior to Discharge: Needs Prior to Discharge: To Be Determined, Accepting Facility, Bed Availability, Precertification, Discharge Transportation Post-Acute Discharge Plan: Chart reviewed, spoke to patient at bedside. IMM delivered to bedside and explained to patient. SNF choices discussed. Patient still wanting to look at facilities. Patient mentioned [facility] as a good option. Referral sent. CM will continue to follow clinical course for further transitional, discharge or POC needs. SIGNATURE: Kirsten Rosario RN PATIENT NAME: Zackery Nunez DATE: May 06, 2024 TIME: 9:31 AM PAGER/CONTACT #: [phone]-2024 NoteHNO ID: [id number] Author: DAFNE LEVINE MD Service: Pain Management Author Type: Physician Type: Progress Notes Filed: 05/06/2024 13:30 Note Text: Name: ZACKERY NUNEZ Age: [age] year old PAIN MANAGEMENT: Right periprosthetic proximal tibial fracture; history of right TKA, chronic pain Pain Description: Ongoing throbbing pain right lower extremity with external fixator. Hopes to have definitive surgery soon Interval HPI: Febrile 39.3. Complains of some nausea; requesting Zofran 05/03 RLE external fixator placed, closed treatment of right patellar fracture 24H Comfort Meds: Tylenol 1 g x 3 Elavil 10 mg bedtime x 1 Butrans 20 mcg patch (to be changed 05/08) Gabapentin 600 mg x 1, 900 mg x 1 Dilaudid 0.5 mg IV x 2 Oxycodone 10 mg x 4 Subjective HPI: 64-year-old female with history of chronic multifactorial pain (RA, chronic back pain, right TKA 10 years ago) opiate dependent presented 05/02 after injury on her deck. Patient's left leg fell through the deck causing her right leg to bend awkwardly with immediate severe pain in her right lower extremity inability to ambulate. Patient was seen at [place] ED and transferred to [facility] for surgical intervention of right periprosthetic proximal tibia fracture Patient goes to Dr. Ward in [place] for pain management since 2012. Home pain regimen includes Butrans 20 mcg patch (placed yesterday), Percocet 5/325 up to 3 tabs daily, gabapentin 900 mg at 12N and 600 mg at 10PM. She lives at home with her . OARRS Review: 58 prescriptions from 1 prescriber. Opiate dependent. Most recent prescriptions: 03/26, 04/29 Butrans 20 mcg patch #4 04/18 Percocet 5/325 #84 04/10 gabapentin 300 mg #4 mid 50 (90-day supply) Current Facility-Administered Medications Medication Dose Route Frequency Provider Last Rate Last Admin lisinopril 10 mg tab(s) (ZESTRIL) 10 mg ORAL DAILY Sydni Waggoner MD 10 mg at 05/06/24 0823 oxyCODONE IR 5-10 mg tab(s) (ROXICODONE) 5-10 mg ORAL q 4 H PRN Dafne Levine MD 10 mg at 05/06/24 1021 HYDROmorphone 0.5 mg injection (DILAUDID) 0.5 mg INTRAVENOUS q 3 H PRN Dafne Levine MD 0.5 mg at 05/06/24 1103 calcium-cholecalciferol (D3) 2 tablet tab(s) (OSCAL+D 250) 2 tablet ORAL BID Sahara Royal MD 2 tablet at 05/06/24 0823 senna 17.2 mg tab(s) (SENOKOT) 17.2 mg ORAL AT BEDTIME Sahara Royal MD 17.2 mg at 05/03/241954 enoxaparin 40 mg injection (LOVENOX) 40 mg SUBCUTANEOUS q 24 HR Sahara Royal MD 40 mg at 05/06/24 08 amitriptyline 10 mg tab(s) (ELAVIL) 10 mg ORAL AT BEDTIME Sahara Royal MD 10 mg at 05/05/24 193 citalopram 40 mg tab(s) (CeleXA) 40 mg ORAL DAILY Sahara Royal MD 40 mg at 05/06/24 0823 promethazine 25 mg tab(s) (PHENERGAN) 25 mg ORAL q 6 H PRN Sahara Royal MD SUMAtriptan 50 mg tab(s) (IMITREX) 50 mg ORAL PRN Sahara Royal MD hyoscyamine sublingual 0.125 mg tab(s) (LEVSIN SL) 0.125 mg SUBLINGUAL q 4 H PRN Sahara Royal MD atorvastatin 10 mg tab(s) (LIPITOR) 10 mg ORAL DAILY Sahara Royal MD 10 mg at 05/05/24 1934 busPIRone 30 mg tab(s) (BUSPAR) 30 mg ORAL BID Sahara Royal MD 30 mg at 05/06/24 0823 estradiol 3 g vaginal cream (ESTRACE) [id number] Applicator VAGINAL DAILY Sahara Royal MD 3 g at 05/06/24 0824 NaCl 0.9% iv flush bag 20 mL INTRAVENOUS PRN Sahara Royal MD ondansetron (PF) 4 mg injection (ZOFRAN) 4 mg INTRAVENOUS q 6 H PRN Sahara Royal MD 4 mg at 05/06/24 0925 melatonin 3 mg tab(s) 3 mg ORAL AT BEDTIME PRN Sahara Royal MD acetaminophen 1,000 mg tab(s) (TYLENOL) 1,000 mg ORAL q 8 H Sahara Royal MD 1,000 mg at 05/06/[address] 40 mg tab(s) (PROTONIX) 40 mg ORAL DAILY (6 AM) Sahara Royal MD 40 mg at 05/06/24 0616 senna-docusate 8.6-50 mg 1 tablet (SENNA-S) 1 tablet ORAL BID Sahara Royal MD 1 tablet at 05/04/24 0857 gabapentin 900 mg cap(s) (NEURONTIN) 900 mg ORAL DAILY AT 12 PM Sahara Royal MD 900 mg at 05/06/24 1150 gabapentin 600 mg cap(s) (NEURONTIN) 600 mg ORAL AT BEDTIME Sahara Royal MD 600 mg at 05/05/24 1933 buprenorphine transdermal patch 20 mcg/hr (BUTRANS) 1 Patch TRANSDERMAL 1/WK Sahara Royal MD [START ON 05/08/2024] buprenorphine - REMOVE PATCH OTHER 1/WK Sahara Royal MD And buprenorphine - VERIFY PATCH OTHER q 8 H Sahara Royal MD lisinopril (ZESTRIL) 10 mg tablet, Take 1 tablet by mouth once daily., Disp: 90 tablet, Rfl: 3 atorvastatin (LIPITOR) 10 mg tablet, Take 1 tablet by mouth once daily. (Patient taking differently: Take 10 mg by mouth daily at bedtime.), Disp: 90 tablet, Rfl: 3 busPIRone HCl 30 mg tablet, Take 1 tablet by mouth two times a day., Disp: 180 tablet, Rfl: 3 omeprazole (PRILOSEC) 40 mg capsule, Take 40 mg by mouth once daily., Disp: , Rfl: citalopram (CELEXA) 40 mg tablet, (more content not included)...[facility]-11-2024 NoteHNO ID: [id number] Author: SYDNI WAGGONER MD Service: Orthopaedic Surgery Author Type: Physician Type: Progress Notes Filed: 05/06/2024 07:53 Note Text: Orthopaedic Trauma Surgery Attending Addendum Reviewed resident Progress Note. The patient was personally seen and examined on 05/06/2024. Agree with resident history, physical examination, assessment and plan unless otherwise noted. -Management per orthopaedic trauma surgery -Maintain external fixator to the right lower extremity -PT/OT: Non-weightbearing with the right lower extremity -Post-Operative Antibiotics: Ancef 2g IV q8H x 2 doses - complete -DVT PPX: SCD to the left lower extremity; Lovenox 40 mg daily -Malcolm: None -Dressings: Xeroform and Kerlix around the pin sites -Pain control; ice and elevation of the right lower extremity -Consultations: Medicine -OR this week for open reduction internal fixation of the right periprosthetic proximal tibia fracture pending soft tissue swelling Sydni Waggoner MD Orthopaedic Trauma Surgery 05/06/2024 7:53 AM ORTHOPAEDIC SURGERY DAILY PROGRESS NOTE ASSESSMENT: 64 year old female POD # 3 s/p R knee external fixator for periprosthetic tibia fracture. PLAN: -Management per orthopaedic trauma surgery -Maintain external fixator to the right lower extremity -PT/OT: Non-weightbearing with the right lower extremity -Post-Operative Antibiotics: Ancef 2g IV q8H x 2 doses - completed -DVT PPX: SCD to the left lower extremity; Lovenox 40 mg daily -Malcolm: None -Dressings: Xeroform and Kerlix around the pin sites -Pain control; ice and elevation of the right lower extremity -Consultations: Medicine - stable, signed off -OR this week for open reduction internal fixation of the right periprosthetic proximal tibia fracture pending soft tissue swelling -Dispo pending above INTERVAL HPI: Nursing documented one fever of 101 with warmth to RLE, ice applied to R leg. This morning patient mostly complaining of being cold and having chills. Room temperature is colder than hallway, temperature adjusted. The patient denies nausea/vomiting, and new numbness/tingling to RLE. OBJECTIVE: BP 135/64 Pulse 68 Temp 36.7 ?C (98 ?F) (Oral) Resp 16 Ht 165.1 cm (5' 5) Wt 90.7 kg (200 lb) SpO2 97% BMI 33.28 kg/m? Intake/Output Summary (Last 24 hours) 05/050 - 05/06 0659 In: - Out: 900 [Urine:900] Exam: General: Pt is alert, resting in bed, no acute distress, cooperative throughout the exam and interview, answers questions appropriately Extremities: Right Lower Extremity: Knee spanning ex fix in place in good position. Pin sites c/d/I SILT S/S/SP/DP/T Motor intact DF/PF/EHL DP pulse palpable, foot warm, BCR toes Compartments soft, compressible. Tolerates passive stretch of digits. Labs: BMP: Sodium 138 05/05/2024 Potassium 4.4 05/05/2024 Chloride 101 05/05/2024 CO2 27 05/05/2024 BUN 8 05/05/2024 Creatinine 0.90 05/05/2024 Glucose 95 05/05/2024 CBC: WBC 10.83 05/05/2024 Hemoglobin 9.9 05/05/2024 Hematocrit 30.4 05/05/2024 Platelet Count 193 05/05/2024 COAGS: APTT 32.9 05/02/2024 INR 1.1 05/02/2024 SED RATE/CRP: WSR 32 05/22/2019 WSR 36 05/14/2019 CRP 2.0 05/22/2019 Imaging: No new orthopaedic imaging to review Sahara Royal MD Orthopedic Surgery 05/06/2024 5:53 [facility]11-10-2024 NoteHNO ID: [id number] Author: KELLI DE LA TORRE MD Service: Hospital Medicine Author Type: Physician Type: Plan of Care Filed: 05/05/2024 13:21 Note Text: Patient's chart reviewed in detail. Blood work is within normal limits, leukocytosis has resolved and hemoglobin stable. Vitals have been stable, continue current home medications. Pain management following for chronic pain. Patient is currently awaiting ORIF next week with orthopedics. Will need SNF placement per PT OT evaluation. Patient is medically stable at this time, no active medical issues that need to be managed, [facility] hospitalist medicine service will sign off. Thank you following us to participate in the care of this patient. Please feel free to reach out with any questions or concerns as needed.[facility]11-10-2024 NoteHNO ID: [id number] Author: LASHAY AKBAR RN Service: Care Management Author Type: Registered Nurse Type: Care Mgt Progress Note Filed: 05/05/2024 12:43 Note Text: CARE MANAGEMENT PROGRESS NOTE SERVICE DATE: 05/05/2024 SERVICE TIME: 12:42 PM LOS: 3 days Needs Prior to Discharge: To Be Determined;Accepting Facility;Bed Availability;Precertification;Discharge Transportation Patient skilled for SNF. CM gave patient a list of facility options for her to chose from. CM asked that she chose 2-3 facilities for referrals to be sent too. She will need auth, [id number] and transport. Cm will continue to follow. SIGNATURE: Lashay Akbar RN PATIENT NAME: Zackery Nunez DATE: May 05, 2024 TIME: 12:42 PM PAGER/CONTACT #: [phone]24 NoteHNO ID: [id number] Author: SYDNI WAGGONER MD Service: Orthopaedic Surgery Author Type: Physician Type: Progress Notes Filed: 05/05/2024 12:53 Note Text: Orthopaedic Trauma Surgery Attending Addendum Reviewed resident Progress Note. The patient was personally seen and examined on 05/05/2024. Agree with resident history, physical examination, assessment and plan unless otherwise noted. -Management per orthopaedic trauma surgery -Maintain external fixator to the right lower extremity -PT/OT: Non-weightbearing with the right lower extremity -Post-Operative Antibiotics: Ancef 2g IV q8H x 2 doses -DVT PPX: SCD to the left lower extremity; Lovenox 40 mg daily -Malcolm: None -Dressings: Xeroform and Kerlix around the pin sites -Pain control; ice and elevation of the right lower extremity -Consultations: Medicine -OR this week for open reduction internal fixation of the right periprosthetic proximal tibia fracture pending soft tissue swelling Sydni Waggoner MD Orthopaedic Trauma Surgery 05/05/2024 12:50 PM ORTHOPAEDIC SURGERY DAILY PROGRESS NOTE Patient Name: Zackery Nunez Date of Evaluation: 05/05/2024 Admission Date: 05/02/2024 Time of Evaluation: 6:43 AM ASSESSMENT: 64 year old female POD # 2 s/p R knee external fixator for periprosthetic tibia fracture. PLAN: - Management per ortho - Medicine consulted, appreciate recs - Pain management consulted, appreciate recs - Pain control. - Weight Bearing Status: NWB RLE. - Dressings: Xeroform and Kerlix around the pin sites - PT/OT: Recommending SNF - DVT PPx: SCDs. Lovenox 40 mg daily - Antibiotic PPx: Ancef 2 g Q8H x 2 doses, complete -OR early next week for ORIF right periprosthetic proximal tibia fracture pending soft tissue swelling INTERVAL HPI: No acute events overnight recorded in chart. Pt states pain is better controlled today. Worked with PT yesterday. The patient denies nausea/vomiting, fevers/chills, and new numbness/tingling to RLE. OBJECTIVE: BP 107/64 Pulse 90 Temp 37 ?C (98.6 ?F) (Oral) Resp 16 Ht 165.1 cm (5' 5) Wt 90.7 kg (200 lb) SpO2 93% BMI 33.28 kg/m? Intake/Output Summary (Last 24 hours) No intake/output data recorded. Exam: General: Pt is alert, resting in bed, no acute distress, cooperative throughout the exam and interview, answers questions appropriately Extremities: Right Lower Extremity: Knee spanning ex fix in place in good position. Pin sites c/d/I SILT S/S/SP/DP/T Motor intact DF/PF/EHL DP pulse palpable, foot warm, BCR toes Compartments soft, compressible. Tolerates passive stretch of digits. Labs: BMP: Sodium 138 05/05/2024 Potassium 4.4 05/05/2024 Chloride 101 05/05/2024 CO2 27 05/05/2024 BUN 8 05/05/2024 Creatinine 0.90 05/05/2024 Glucose 95 05/05/2024 CBC: WBC 10.83 05/05/2024 Hemoglobin 9.9 05/05/2024 Hematocrit 30.4 05/05/2024 Platelet Count 193 05/05/2024 COAGS: APTT 32.9 05/02/2024 INR 1.1 05/02/2024 SED RATE/CRP: WSR 32 05/22/2019 WSR 36 05/14/2019 CRP 2.0 05/22/2019 Imaging: No new orthopaedic imaging to review Porter Martinez MD Resident, Orthopaedic Surgery 05/05/2024 6:43 AM Please page [phone] from 5p-6a and on weekends for any issues.[facility]11-09-2024 NoteHNO ID: [id number] Author: DEMARIO YANG APRN.MATH AND SCIENCES DEPARTMENT CHAIR Service: Pain Management Author Type: Nurse Practitioner Type: Progress Notes Filed: 05/04/2024 08:57 Note Text: Name: ZACKERY NUNEZ Age: [age] year old PAIN MANAGEMENT: Right periprosthetic proximal tibial fracture; history of right TKA, chronic pain Pain Description: Patient just rolled with PT. Reporting acute pain. Asking for oxy IR to be increase. Discussed plan to keep at 10 mg- need to take more frequently and utilize dilaudid PRN Interval HPI: s/p ex-fix right knee 05/03 24H Comfort Meds: Tylenol 1 g x 3 Elavil 10 mg bedtime x 1 Butrans 20 mcg patch (to be changed 05/08) Gabapentin 600 mg x 1, 900 mg x 1 Dilaudid 0.5 mg IV x 5 Morphine 3 mg x4 Oxycodone 5-10 mg x 2 Subjective HPI: 64-year-old female with history of chronic multifactorial pain (RA, chronic back pain, right TKA 10 years ago) opiate dependent presented 05/02 after injury on her deck. Patient's left leg fell through the deck causing her right leg to bend awkwardly with immediate severe pain in her right lower extremity inability to ambulate. Patient was seen at [place] ED and transferred to [facility] for surgical intervention of right periprosthetic proximal tibia fracture Patient goes to Dr. Ward in [place] for pain management since 2012. Home pain regimen includes Butrans 20 mcg patch (placed yesterday), Percocet 5/325 up to 3 tabs daily, gabapentin 900 mg at 12N and 600 mg at 10PM. She lives at home with her . OARRS Review: PDMP website checked and validated. All prescriptions have been APPROPRIATELY filled. No suspicious activity was identified. 05/04/2024 by Demario Yang APRN.MATH AND SCIENCES DEPARTMENT CHAIR 58 prescriptions from 1 prescriber. Opiate dependent. Most recent prescriptions: 03/26, 04/29 Butrans 20 mcg patch #4 04/18 Percocet 5/325 #84 04/10 gabapentin 300 mg #4 mid 50 (90-day supply) Current Facility-Administered Medications Medication Dose Route Frequency Provider Last Rate Last Admin oxyCODONE IR 5-10 mg tab(s) (ROXICODONE) 5-10 mg ORAL q 4 H PRN Dafne Levine MD 5 mg at 05/04/24 0532 HYDROmorphone 0.5 mg injection (DILAUDID) 0.5 mg INTRAVENOUS q 3 H PRN Dafne Levine MD 0.5 mg at 05/03/24 2330 calcium-cholecalciferol (D3) 2 tablet tab(s) (OSCAL+D 250) 2 tablet ORAL BID Sahara Royal MD 2 tablet at 05/03/241955 senna 17.2 mg tab(s) (SENOKOT) 17.2 mg ORAL AT BEDTIME Sahara Royal MD 17.2 mg at 05/03/241954 enoxaparin 40 mg injection (LOVENOX) 40 mg SUBCUTANEOUS q 24 HR Sahara Royal MD amitriptyline 10 mg tab(s) (ELAVIL) 10 mg ORAL AT BEDTIME Sahara Royal MD 10 mg at 05/03/241955 citalopram 40 mg tab(s) (CeleXA) 40 mg ORAL DAILY Sahara Royal MD 40 mg at 05/03/24 1249 promethazine 25 mg tab(s) (PHENERGAN) 25 mg ORAL q 6 H PRN Sahara Royal MD SUMAtriptan 50 mg tab(s) (IMITREX) 50 mg ORAL PRN Sahara Royal MD hyoscyamine sublingual 0.125 mg tab(s) (LEVSIN SL) 0.125 mg SUBLINGUAL q 4 H PRN Sahara Royal MD atorvastatin 10 mg tab(s) (LIPITOR) 10 mg ORAL DAILY Sahara Royal MD 10 mg at 05/03/241955 busPIRone 30 mg tab(s) (BUSPAR) 30 mg ORAL BID Sahara Royal MD 30 mg at 05/03/241954 estradiol 3 g vaginal cream (ESTRACE) [id number] Applicator VAGINAL DAILY Sahara Royal MD NaCl 0.9% iv flush bag 20 mL INTRAVENOUS PRN Sahara Royal MD lactated ringers iv infusion 100 mL/hr INTRAVENOUS CONTINUOUS Sahara Royal MD 100 mL/hr at 05/03/24 1016 100 mL/hr at 05/03/24 1016 ondansetron (PF) 4 mg injection (ZOFRAN) 4 mg INTRAVENOUS q 6 H PRN Sahara Royal MD melatonin 3 mg tab(s) 3 mg ORAL AT BEDTIME PRN Sahara Royal MD acetaminophen 1,000 mg tab(s) (TYLENOL) 1,000 mg ORAL q 8 H Sahara Royal MD 1,000 mg at 05/04/[address] 40 mg tab(s) (PROTONIX) 40 mg ORAL DAILY (6 AM) Sahara Royal MD 40 mg at 05/04/24 0532 senna-docusate 8.6-50 mg 1 tablet (SENNA-S) 1 tablet ORAL BID Sahara Royal MD 1 tablet at 05/03/241955 gabapentin 900 mg cap(s) (NEURONTIN) 900 mg ORAL DAILY AT 12 PM Sahara Royal MD 900 mg at 05/03/24 1248 gabapentin 600 mg cap(s) (NEURONTIN) 600 mg ORAL AT BEDTIME Sahara Royal MD 600 mg at 05/03/241954 buprenorphine transdermal patch 20 mcg/hr (BUTRANS) 1 Patch TRANSDERMAL 1/WK Sahara Royal MD [START ON 05/08/2024] buprenorphine - REMOVE PATCH OTHER 1/WK Sahara Royal MD And buprenorphine - VERIFY PATCH OTHER q 8 H Sahara Royal MD lisinopril (ZESTRIL) 10 mg tablet, Take 1 tablet by mouth once daily., Disp: 90 tablet, Rfl: 3 atorvastatin (LIPITOR) 10 mg tablet, Take 1 tablet by mouth once daily. (Patient taking differently: Take 10 mg by mouth daily at bedtime.), Disp: 90 tablet, Rfl: 3 busPIRone HCl 30 mg tablet, Take 1 tablet by mouth two times a day., Disp: 180 t (more content not included)...[facility]11-09-2024 NoteHNO ID: [id number] Author: SYDNI WAGGONER MD Service: Orthopaedic Surgery Author Type: Physician Type: Progress Notes Filed: 05/04/2024 08:59 Note Text: Orthopaedic Trauma Surgery Attending Addendum Reviewed resident Progress Note. The patient was personally seen and examined on 05/04/2024. Agree with resident history, physical examination, image interpretation, assessment and plan unless otherwise noted. -Management per orthopaedic trauma surgery -Maintain external fixator to the right lower extremity -PT/OT: Non-weightbearing with the right lower extremity -Post-Operative Antibiotics: Ancef 2g IV q8H x 2 doses -DVT PPX: SCD to the left lower extremity; Lovenox 40 mg daily -Malcolm: None -Dressings: Xeroform and Kerlix around the pin sites -Pain control; ice and elevation of the right lower extremity -Consultations: Medicine -OR next week for open reduction internal fixation of the right periprosthetic proximal tibia fracture pending soft tissue swelling Sydni Waggoner MD Orthopaedic Trauma Surgery 05/04/2024 8:57 AM ORTHOPAEDIC SURGERY DAILY PROGRESS NOTE Patient Name: Zackery Nunez Date of Evaluation: 05/04/2024 Admission Date: 05/02/2024 Time of Evaluation: 6:11 AM ASSESSMENT: 64 year old female POD # 1 s/p R knee external fixator for periprosthetic tibia fracture. PLAN: - Management per ortho - Pain control. - Weight Bearing Status: NWB RLE. - Dressing(s): soft dressings to incision sites and pin sites - PT/OT: Evaluation AND recommendations. - DVT PPx: SCDs. Lovenox 40 mg daily x 21 days. - Antibiotic PPx: Ancef 2 g Q8H x 2 doses, complete -OR early next week for ORIF right periprosthetic proximal tibia fracture - Anticipated Length of Stay/Disposition: pending pain control, PT/OT INTERVAL HPI: No acute events overnight recorded in chart. Pt complaining of throbbing pain near fracture site. The patient denies nausea/vomiting, fevers/chills, and new numbness/tingling to RLE. OBJECTIVE: BP 132/66 Pulse 87 Temp 37.3 ?C (99.2 ?F) (Oral) Resp 16 Ht 165.1 cm (5' 5) Wt 90.7 kg (200 lb) SpO2 99% BMI 33.28 kg/m? Intake/Output Summary (Last 24 hours) 05/03 2300 - 05/04 0659 In: 340 [PO:240; IV:100] Out: 1200 [Urine:1200] Exam: General: Pt is alert, resting in bed, no acute distress, cooperative throughout the exam and interview, answers questions appropriately Extremities: Right Lower Extremity: Knee spanning ex fix in place in good position. Pin sites c/d/I SILT S/S/SP/DP/T Motor intact DF/PF/EHL DP pulse palpable, foot warm, BCR toes Compartments soft, compressible. Tolerates passive stretch of digits. Labs: BMP: Sodium 133 05/04/2024 Potassium 3.9 05/04/2024 Chloride 100 05/04/2024 CO2 23 05/04/2024 BUN 10 05/04/2024 Creatinine 0.86 05/04/2024 Glucose 161 05/04/2024 CBC: WBC 14.08 05/04/2024 Hemoglobin 9.7 05/04/2024 Hematocrit 30.3 05/04/2024 Platelet Count 209 05/04/2024 COAGS: APTT 32.9 05/02/2024 INR 1.1 05/02/2024 SED RATE/CRP: WSR 32 05/22/2019 WSR 36 05/14/2019 CRP 2.0 05/22/2019 Imaging: No new orthopaedic imaging to review Porter Martinez MD Resident, Orthopaedic Surgery 05/04/2024 6:11 AM Please page 1410 from 5p-6a and on weekends for any issues.[facility]11-08-2024 NoteHNO ID: [id number] Author: SYDNI WAGGONER MD Service: Orthopaedic Surgery Author Type: Physician Type: Plan of Care Filed: 05/03/2024 20:33 Note Text: Orthopaedic Trauma Surgery Plan for return to the OR next week for open reduction internal fixation of the right periprosthetic proximal tibia fracture. Sydni Waggoner MD Orthopaedic Trauma Surgery 05/03/2024 8:33 [facility]11-08-2024 NoteHNO ID: [id number] Author: LASHAY AKBAR RN Service: Care Management Author Type: Registered Nurse Type: Care Mgt Progress Note Filed: 05/03/2024 14:34 Note Text: CARE MANAGEMENT PROGRESS NOTE SERVICE DATE: 05/03/2024 SERVICE TIME: 2:33 PM LOS: 1 day IMM Follow Up Copy Given: Yes Copy given to:: Patient Method: In Person SIGNATURE: Lashay Akbar RN PATIENT NAME: Zackery Nunez DATE: May 03, 2024 TIME: 2:33 PM PAGER/CONTACT #: [id number]11-08-2024 NoteHNO ID: [id number] Author: LASHAY AKBAR RN Service: Care Management Author Type: Registered Nurse Type: Care Mgt Initial Assessment Filed: 05/03/2024 13:59 Note Text: CARE MANAGEMENT: ASSESSMENT AND DISCHARGE PLAN SERVICE DATE: May 03, 2024 SERVICE TIME: 1:57 PM PCP: Mikayla Strange MD Primary Contact: Extended Emergency Contact Information Primary Emergency Contact: Frantz Nunez [facility] Mobile Relation: Spouse Admission Status: Inpatient Insurance Provider: [employer] PPO Discharge Planning requested by: Per Department Practice Potential Transition Plans Home;Home OT/PT;Residential Facility/Intermediate Care Facility;To Be Determined Advance Directives Current Advance Directive: None Ship Rigger Attempted to Assist with AD Completion: Yes Action: Education Provided Current Living Arrangements and Support Lives with: Spouse/significant other Type of Residence: Private Residence (House) Support: Family members, Spouse/significant other How do you manage to accomplish the following: Independent: Ambulation;Bathe/Shower;Dress;Meals/Meal Prep;Going to the bathroom;Medication Management;Transportation to appointments/community Current Services/Equipment Current Post-Acute Service(s): None Discharge Planning Patient Goal(s): Less pain, General wellness [place] Explained: [place] Given: No Reason Not Given: Unable to complete with this assessment - revisit Are you interested in bedside delivery of your medications? No Discharge Planning Participant(s): Patient;Spouse/significant other Patient/Family Comments: Caregiver Assessment: Caregiver is ready, willing and able to meet the patient's needs as recommended by the inter-professional team: Yes Name of Caregiver: Transport at Discharge: Transportation Arrangements: Car Destination: home Needs Prior to Discharge: Needs Prior to Discharge: To Be Determined;OT/PT Evaluation Post-Acute Discharge Plan: Patient is a 64 yo female with right periprosthetic proximal tibia fracture Patient lives with her and is independent with ADLs. She does not use DME and her PCP is up to date in chart. Per team she will not be medically ready for dc until Monday or Monday. She also needs pt/ot evals prior to dc. Possible need for home pt/ot or SNF. CM will continue to follow and send referrals as needed. SIGNATURE: Lashay Akbar RN PATIENT NAME: Zackery Nunez DATE: May 03, 2024 TIME: 1:57 PM CONTACT #: [id number]11-08-2024 Note HNO ID: [id number] Author: KELLI DE LA TORRE MD Service: Hospital Medicine Author Type: Physician Type: Plan of Care Filed: 05/03/2024 14:03 Note Text: Patient has been out of the room all morning in the OR. Patient's chart reviewed in detail. Blood work is stable and within normal limits. Vitals hemodynamically stable. Continue current medical management, will continue to follow patient postoperatively as needed. Please refer to consult note by my colleague from yesterday evening for detailed recommendations. Please feel free to reach out with any urgent medical questions or concerns. [facility]11-08-2024 NoteHNO ID: [id number] Author: TANJA HILLS APRN.CRNA Service: Anesthesiology Author Type: Nurse Electric Locomotive Firer/Fireman Type: Anesthesia Procedure Notes Filed: 05/03/2024 09:00 Note Text: ANESTHESIOLOGY PROCEDURE NOTE Airway General Information Procedure Start Time/Medication Administration: 05/03/2024 8:48 AM Procedure End Time: 05/03/2024 8:49 AM Patient location during procedure: OR Timeout Performed Pre-procedure: timeout performed Consent Obtained: Yes Patient identity confirmed: arm band and patient Staffing Anesthesiologist: Sydni Bender MD TEACHERS' ASSISTANT: Lauren Vides APRN.TEACHERS' ASSISTANT Performed by: TEACHERS' ASSISTANT and anesthesiologist Indications and Patient Condition Indications for airway management: anesthesia Preoxygenated: yes anesthesia circuit Patient position: sniffing Method: asleep Final Airway Details Final airway type: endotracheal airway Final Endotracheal Airway: ETT Cuffed: yes Successful intubation technique: video laryngoscopy Devices used: Dao Endotracheal tube insertion site: oral Blade: Margo Blade size: #3 ETT size (mm): 7.0 Measured from: lips Measurement (cm): 22 Placement verified by: chest auscultation and capnometry Cormack-Lehane Classification: grade I - full view of glottis Number of attempts at approach: 1 Failed airway: no Unrecognized esophageal intubation: no Airway not difficult SIGNATURE: Tanja Hills APRN.TEACHERS' ASSISTANT PATIENT NAME: Zackery Nunez DATE: May 03, 2024 TIME: 8:59 AM CSN: [id number]11-08-2024 NoteHNO ID: [id number] Author: DAFNE LEVINE MD Service: Pain Management Author Type: Physician Type: Progress Notes Filed: 05/03/2024 09:09 Note Text: Name: ZACKERY NUNEZ Age: [age] year old PAIN MANAGEMENT: Right periprosthetic proximal tibial fracture; history of right TKA, chronic pain Pain Description: States pain is better controlled this morning. Going to the OR shortly. Satisfied with present regimen Interval HPI: Stable overnight 24H Comfort Meds: Tylenol 1 g x 3 Elavil 10 mg bedtime x 1 Butrans 20 mcg patch (to be changed 05/08) Gabapentin 600 mg x 1, 900 mg x 1 Dilaudid 0.5 mg IV x 2 Oxycodone 5 mg x 3 Subjective HPI: 64-year-old female with history of chronic multifactorial pain (RA, chronic back pain, right TKA 10 years ago) opiate dependent presented 05/02 after injury on her deck. Patient's left leg fell through the deck causing her right leg to bend awkwardly with immediate severe pain in her right lower extremity inability to ambulate. Patient was seen at [place] ED and transferred to [facility] for surgical intervention of right periprosthetic proximal tibia fracture Patient goes to Dr. Ward in [place] for pain management since 2012. Home pain regimen includes Butrans 20 mcg patch (placed yesterday), Percocet 5/325 up to 3 tabs daily, gabapentin 900 mg at 12N and 600 mg at 10PM. She lives at home with her . OARRS Review: 58 prescriptions from 1 prescriber. Opiate dependent. Most recent prescriptions: 03/26, 04/29 Butrans 20 mcg patch #4 04/18 Percocet 5/325 #84 04/10 gabapentin 300 mg #4 mid 50 (90-day supply) Current Facility-Administered Medications Medication Dose Route Frequency Provider Last Rate Last Admin [Transfer Hold] predniSONE 10 mg tab(s) (DELTASONE) 10 mg ORAL PRN Nate Acosta MD [Transfer Hold] amitriptyline 10 mg tab(s) (ELAVIL) 10 mg ORAL AT BEDTIME Nate Acosta MD 10 mg at 05/02/24 2100 [Transfer Hold] citalopram 40 mg tab(s) (CeleXA) 40 mg ORAL DAILY Nate Acosta MD 40 mg at 05/02/24 1502 [Transfer Hold] promethazine 25 mg tab(s) (PHENERGAN) 25 mg ORAL q 6 H PRN Ntae Acosta MD [Transfer Hold] promethazine 25 mg suppository (PHENERGAN) 25 mg RECTAL q 6 H PRN Nate Acosta MD [Transfer Hold] SUMAtriptan 50 mg tab(s) (IMITREX) 50 mg ORAL PRN Nate Acosta MD [Transfer Hold] hyoscyamine sublingual 0.125 mg tab(s) (LEVSIN SL) 0.125 mg SUBLINGUAL q 4 H PRN Nate Acosta MD [Transfer Hold] atorvastatin 10 mg tab(s) (LIPITOR) 10 mg ORAL DAILY Nate Acosta MD 10 mg at 05/02/24 2100 [Transfer Hold] busPIRone 30 mg tab(s) (BUSPAR) 30 mg ORAL BID Nate Acosta MD 30 mg at 05/02/24 1502 [Transfer Hold] estradiol 3 g vaginal cream (ESTRACE) [id number] Applicator VAGINAL DAILY Nate Acosta MD [Transfer Hold] NaCl 0.9% iv flush bag 20 mL INTRAVENOUS PRN Nate Acosta MD [Transfer Hold] lactated ringers iv infusion 100 mL/hr INTRAVENOUS CONTINUOUS Nate Acosta MD 100 mL/hr at 05/03/24 0156 100 mL/hr at 05/03/24 0156 [Transfer Hold] ondansetron (PF) 4 mg injection (ZOFRAN) 4 mg INTRAVENOUS q 6 H PRN Nate Acosta MD [Transfer Hold] melatonin 3 mg tab(s) 3 mg ORAL AT BEDTIME PRN Nate Acosta MD [Transfer Hold] acetaminophen 1,000 mg tab(s) (TYLENOL) 1,000 mg ORAL q 8 H Nate Acosta MD 1,000 mg at 05/03/24 0524 [Transfer Hold] pantoprazole DR 40 mg tab(s) (PROTONIX) 40 mg ORAL DAILY (6 AM) Nate Acosta MD 40 mg at 05/03/24 0524 [Transfer Hold] senna-docusate 8.6-50 mg 1 tablet (SENNA-S) 1 tablet ORAL BID Dafne Levine MD [Transfer Hold] HYDROmorphone 0.5 mg injection (DILAUDID) 0.5 mg INTRAVENOUS q 3 H PRN Dafne Levine MD 0.5 mg at 05/03/24 0524 [Transfer Hold] oxyCODONE IR 5 mg tab(s) (ROXICODONE) 5 mg ORAL q 4 H PRN Dafne Levine MD 5 mg at 05/03/24 0205 [Transfer Hold] gabapentin 900 mg cap(s) (NEURONTIN) 900 mg ORAL DAILY AT 12 PM Dafne Levine MD [Transfer Hold] gabapentin 600 mg cap(s) (NEURONTIN) 600 mg ORAL AT BEDTIME Dafne Levine MD 600 mg at 05/02/24 2100 [Transfer Hold] buprenorphine transdermal patch 20 mcg/hr (BUTRANS) 1 Patch TRANSDERMAL 1/WK Dafne Levine MD [Transfer Hold] buprenorphine - REMOVE PATCH OTHER 1/WK Dafne Levine MD And [Transfer Hold] buprenorphine - VERIFY PATCH OTHER q 8 H Dafne Levine MD Facility-Administered Medications Ordered in Other Encounters Medication Dose Route Frequency Provider Last Rate Last Admin ceFAZolin iv piggyback 2 g in D5W (iso-osmotic) 100 mL (ANCEF) INTRAVENOUS PRN Tanja Hills APRN.TEACHERS' ASSISTANT 2 g at 05/03/24 0855 dexAMETHasone sodium phosphate injection (DECADRON) INTRAVENOUS PRN Tanja Hills APRN.TEACHERS' ASSISTANT 4 mg at 05/03/24 0855 ondansetron (PF) injection (ZOFRAN) INTRAVENOUS PRN Tanja Hills APRN.TEACHERS' ASSISTANT 4 mg at 05/03/24 0855 lactated ringers iv infusion INTRAVENOUS X (ONE-STEP ONLY) CONTINUOUS PRN Tanja Hills APRN.TEACHERS' ASSISTANT New B (more content not included)...[facility]11-08-2024 NoteHNO ID: [id number] Author: SYDNI WAGGONER MD Service: Orthopaedic Surgery Author Type: Physician Type: Progress Notes Filed: 05/03/2024 07:11 Note Text: Orthopaedic Trauma Surgery Attending Addendum Reviewed resident Progress Note. The patient was personally seen and examined on 05/03/2024. Agree with resident history, physical examination, assessment and plan unless otherwise noted. NPO. Consent in chart. OR today. Sydni Waggoner MD Orthopaedic Trauma Surgery 05/03/2024 7:11 AM ORTHOPAEDIC SURGERY DAILY PROGRESS NOTE ASSESSMENT: 64 yo female with right periprosthetic proximal tibia fracture PLAN: - Admit to Orthopaedic Surgery. - Pain control, pain management consult - Weight-bearing Status: Nonweightbearing right lower extremity, maintain knee immobilizer. - DVT PPx: SCDs. Hold chemoprophylaxis prior to the OR today. - Imaging: X-rays of the right knee and tib-fib reviewed - Medicine consult, appreciate recommendations . - Labs: pre-op labs ordered - Diet: N.p.o. today for OR - OR on 05/03 for ex-fix right knee. - Consent obtained and placed in chart. INTERVAL HPI: No acute events overnight. Pain controlled. OBJECTIVE: BP 124/53 Pulse 100 Temp (!) 38 ?C (100.4 ?F) (Oral) Resp 17 Ht 165.1 cm (5' 5) Wt 90.7 kg (200 lb) SpO2 93% BMI 33.28 kg/m? Exam: General: NAD, AOx3 Right Lower Extremity: Knee immobilizer in place. The patient tolerates passive stretch of the digits. +DF/PF/EHL. SILT gonzales/sa/sp/dp/t. DP/PT pulses 2+ Recent Labs 05/03/24 0156 05/02/24 1548 CREAT 1.01* 1.07* BUN 11 12 NA 136 137 K 4.3 4.0 CHLOR 101 102 CO2 25 22 ANION 10 13 GLUC 107* 104* CA 8.3* 8.8 WBC 8.87 10.03 HB 10.7* 11.4* HCT 33.2* 34.5* PLT 211 228 COAGS: APTT 32.9 05/02/2024 INR 1.1 05/02/2024 SED RATE/CRP: WSR 32 05/22/2019 WSR 36 05/14/2019 CRP 2.0 05/22/2019 Imaging: ILDEFONSO Maya MD Orthopaedic Surgery 05/03/2024 6:03 [facility]11-07-2024 NoteHNO ID: [id number] Author: NATE ACOSTA MD Service: Orthopaedic Surgery Author Type: Resident Type: Plan of Care Filed: 05/02/2024 22:08 Note Text: Orthopaedic Surgery Plan of Care OR for ex-fix application canceled this evening. Plan for OR tomorrow morning. NPO at midnight, hold anticoagulation. We will otherwise continue current plan of care outlined in the previous orthopaedic surgery progress note. Please page orthopaedic surgery at #[phone] for additional questions or concerns. Nate Acosta MD Orthopaedic Surgery May 02, 2024 10:02 [facility]10-28-2024 Telephone encounter Note* Telephone Encounter - Soraida Escudero LPN - 04/22/2024 9:16 AM EDT The patient has been identified by name and date of : Yes Caregiver verified no other encounters exist for this prescription request: Yes Caregiver confirmed with patient/requestor that no other refills are due, in the near future, with this provider at this time: Yes The last office visit in the department: 02/20/2024 Does the patient have a future office visit with this provider/department: Yes 07/09/2024 Requested Prescriptions Pending Prescriptions Disp Refills lisinopril (ZESTRIL) 10 mg tablet 90 tablet 3 Sig: Take 1 tablet by mouth once daily. lisinopril (ZESTRIL) 10 mg tablet 10 tablet 0 Sig: Take 1 tablet by mouth once daily. Soraida Escudero LPN April 22, 2024 9:18 AM [facility]10-28-2024 Miscellaneous Notes* Telephone Encounter - Soraida Escudero LPN - 04/22/2024 9:16 AM EDT The patient has been identified by name and date of : Yes Caregiver verified no other encounters exist for this prescription request: Yes Caregiver confirmed with patient/requestor that no other refills are due, in the near future, with this provider at this time: Yes The last office visit in the department: 02/20/2024 Does the patient have a future office visit with this provider/department: Yes 07/09/2024 Requested Prescriptions Pending Prescriptions Disp Refills lisinopril (ZESTRIL) 10 mg tablet 90 tablet 3 Sig: Take 1 tablet by mouth once daily. lisinopril (ZESTRIL) 10 mg tablet 10 tablet 0 Sig: Take 1 tablet by mouth once daily. Soraida Escudero LPN April 22, 2024 9:18 AM [facility] Telephone encounter Note * Telephone Encounter - Mayela Chopra MA - 04/12/2024 2:10 PM EDT Pt viewed in Mychart. Mayela Chopra MA [facility]10-18-2024 Miscellaneous Notes* Telephone Encounter - Mayela Chopra MA - 04/12/2024 2:10 PM EDT Pt viewed in Mychart. Mayela Chopra MA * Telephone Encounter - Lula Segovia LPN - 04/11/2024 12:54 PM EDT Called patient. No answer- left messenger to call clinic for results or check her MyChart. DUANE Cruz * Telephone Encounter - Lula Segovia LPN - 04/11/2024 12:52 PM EDT ----- Message from Kd Stockton PA-C sent at 04/10/2024 7:05 PM EDT ----- No infection in the urine Kd Stockton [facility] [place] documented in this [facility] Telephone encounter Note * Telephone Encounter - Lula Segovia LPN - 04/11/2024 12:54 PM EDT Called patient. No answer- left messenger to call clinic for results or check her MyChart. DUANE Cruz [facility]10-17-2024 Telephone encounter Note* Telephone Encounter - Lula Segovia LPN - 04/11/2024 12:52 PM EDT ----- Message from Kd Stockton PA-C sent at 04/10/2024 7:05 PM EDT ----- No infection in the urine ALLA Hull MT, PA-C [facility]10-15-2024 Instructions* Patient Instructions* Kd Stockton PA-C - 04/09/2024 3:32 PM EDT > 3 mo. Appt w/ BALLA Garcia MT, PA-C for new Rx Follow-up documented in this encounter[facility]-2024 NoteHNO ID: [id number] Author: KD STOCKTON PA-C Service: ? Author Type: Physician Barrel Loader Type: Progress Notes Filed: 04/09/2024 17:48 Note Text: PENDING SALE TO [facility] NEW PATIENT CLINIC NOTE SERVICE DATE: April 09, 2024 NAME: Zackery Nunez CHIEF COMPLAINT: Dysuria and Urinary Tract Infection HISTORY OF PRESENT ILLNESS: Zackery Nunez is a 64 year old female an new patient here for Dysuria and Urinary Tract Infection The patient reports having UTI and treated with antibiotics, but still having dysuria despite no UTI on recent cultures Her symptoms are can be due to Atrophic Vaginitis , we discussed the UTI Prevention Protocol reviewed, Handout given with detailed instructions Topical Estrogen Probiotic AZO /Motrin, Aleve No Cranberry Supp or Juice Instructed the patient to CALL office to get a URINE CULTURE order placed if having UTI symptoms, instead of going to Urgent Care or ER As long as I have seen the patient within 1 year, understanding NO antibiotics will be given until the culture is final If patient has a FEVER > 100.1, we will send her to ER that is not common for uncomplicated UTI LUTS: DYSURIA: yes URGENCY: No FREQUENCY:7 per day NOCTURIA: 0 per night STRAINING TO VOID: No EMPTIES COMPLETELY: Yes UTI: 1 past 12 months GROSS HEMATURIA: no UA DIPSTICK POSITIVE ONLY: yes LABS: No results found for: PSA No results found for: TESTOST Hematocrit (%) Date Value 01/15/2024 37.0 01/05/2024 36.7 11/04/2022 36.7 05/14/2019 43.9 02/09/2014 42.6 02/08/2014 41.3 No results found for: PSA Creatinine Date Value Ref Range Status 01/05/2024 1.11 (H) 0.58 - 0.96 mg/dL Final 11/04/2022 1.09 (H) 0.58 - 0.96 mg/dL Final 04/14/2022 0.90 0.58 - 0.96 mg/dL Final MEDICATIONS: estradiol (ESTRACE) 0.01 % (0.1 mg/gram) vaginal cream Use 3 g vaginally once daily. atorvastatin (LIPITOR) 10 mg tablet Take 1 tablet by mouth once daily. busPIRone HCl 30 mg tablet Take 1 tablet by mouth two times a day. omeprazole (PRILOSEC) 40 mg capsule Take 40 mg by mouth once daily. hyoscyamine sublingual (LEVSIN/SL) 0.125 mg Dissolve 1 tablet under the tongue every 4 hours as needed. citalopram (CELEXA) 40 mg tablet Take 1 tablet by mouth once daily. promethazine (PHENERGAN) 25 mg tablet Take 1 tablet by mouth every 6 hours as needed. promethazine (PHENERGAN) 25 mg suppository 1 Suppository by RECTAL route every 6 hours as needed. SUMAtriptan (IMITREX) 50 mg tablet Take 1 tablet (50 mg) by mouth as needed. lisinopril (ZESTRIL) 10 mg tablet [...] bedtime. gabapentin (NEURONTIN) 300 mg capsule Take 300 mg by mouth. 900 mg (3 tabs) a.m, 600 mg (2 tabs) p.m predniSONE (DELTASONE) 10 mg tablet Take 1 tablet by mouth as needed for Pain. Cetirizine 10 mg cap Take by mouth. CALCIUM POLYCARBOPHIL (FIBER LAXATIVE ORAL) Take by mouth. multivitamin tablet Take 1 tablet by mouth once daily. latanoprost (XALATAN) 0.005 % ophthalmic solution 1 Drop daily at bedtime. docusate sodium (COLACE) 100 mg capsule Take 100 mg by mouth twice daily. PAST MEDICAL HISTORY: PAST MEDICAL HISTORY Diagnosis Date Anxiety disorder Arthritis Chronic back pain Dr. Burks-pain management Depressive disorder, not elsewhere classified Diabetes (HCC) Essential hypertension, benign Fibromyalgia Glaucoma IBS (irritable bowel syndrome) Migraine, unspecified, without mention of intractable migraine without mention of status migrainosus PONV (postoperative nausea and vomiting) Pure hypercholesterolemia Rheumatoid arthritis (HCC) Snoring PAST SURGICAL HISTORY: PAST SURGICAL HISTORY Procedure Laterality Date APPENDECTOMY [...] TUBAL LIGATION HX 08/11/1997 VAGINAL HYSTERECTOMY FAMILY HISTORY: FAMILY HISTORY Problem Relation Age of Onset Diabetes Mother Hypertension Mother Heart Attack Mother Diabetes Father Hypertension Father Heart Attack Father COPD Sister other (sjorgens) Sister affects vision other (Other) Sister lupus Bipolar disorder Daughter Diabetes Maternal Grandmother SOCIAL HISTORY: Social (more content not included)...[facility]10-15-2024 History of Present illness Narrative* Kd Stockton PA-C - 04/09/2024 3:07 PM EDT Images from the original note were not included. PENDING SALE TO [facility] NEW PATIENT CLINIC NOTE SERVICE DATE: April 09, 2024 NAME: Zackery Nunez CHIEF COMPLAINT: Dysuria and Urinary Tract Infection HISTORY OF PRESENT ILLNESS: Zackery Nunez is a 64 year old female an new patient here for Dysuria and Urinary Tract Infection The patient reports having UTI and treated with antibiotics, but still having dysuria despite no UTI on recent cultures Her symptoms are can be due to Atrophic Vaginitis , we discussed the UTI Prevention Protocol reviewed, Handout given with detailed instructions Topical Estrogen Probiotic AZO /Motrin, Aleve No Cranberry Supp or Juice Instructed the patient to CALL office to get a URINE CULTURE order placed if having UTI symptoms, instead of going to Urgent Care or ER As long as I have seen the patient within 1 year, understanding NO antibiotics will be given until the culture is final If patient has a FEVER > 100.1, we will send her to ER that is not common for uncomplicated UTI LUTS: DYSURIA: yes URGENCY: No FREQUENCY:7 per day NOCTURIA: 0 per night STRAINING TO VOID: No EMPTIES COMPLETELY: Yes UTI: 1 past 12 months GROSS HEMATURIA: no UA DIPSTICK POSITIVE ONLY: yes LABS: No results found for: PSA No results found for: TESTOST Hematocrit (%) Date Value 01/15/2024 37.0 01/05/2024 36.7 11/04/2022 36.7 05/14/2019 43.9 02/09/2014 42.6 02/08/2014 41.3 No results found for: PSA Creatinine Date Value Ref Range Status 01/05/2024 1.11 (H) 0.58 - 0.96 mg/dL Final 11/04/2022 1.09 (H) 0.58 - 0.96 mg/dL Final 04/14/2022 0.90 0.58 - 0.96 mg/dL Final MEDICATIONS: estradiol (ESTRACE) 0.01 % (0.1 mg/gram) vaginal cream Use 3 g vaginally once daily. atorvastatin (LIPITOR) 10 mg tablet Take 1 tablet by mouth once daily. busPIRone HCl 30 mg tablet Take 1 tablet by mouth two times a day. omeprazole (PRILOSEC) 40 mg capsule Take 40 mg by mouth once daily. hyoscyamine sublingual (LEVSIN/SL) 0.125 mg Dissolve 1 tablet under the tongue every 4 hours as needed. citalopram (CELEXA) 40 mg tablet Take 1 tablet by mouth once daily. promethazine (PHENERGAN) 25 mg tablet Take 1 tablet by mouth every 6 hours as needed. promethazine (PHENERGAN) 25 mg suppository 1 Suppository by RECTAL route every 6 hours as needed. SUMAtriptan (IMITREX) 50 mg tablet Take 1 tablet (50 mg) by mouth as needed. lisinopril (ZESTRIL) 10 mg tablet [...] bedtime. gabapentin (NEURONTIN) 300 mg capsule Take 300 mg by mouth. 900 mg (3 tabs) a.m, 600 mg (2 tabs) p.m predniSONE (DELTASONE) 10 mg tablet Take 1 tablet by mouth as needed for Pain. Cetirizine 10 mg cap Take by mouth. CALCIUM POLYCARBOPHIL (FIBER LAXATIVE ORAL) Take by mouth. multivitamin tablet Take 1 tablet by mouth once daily. latanoprost (XALATAN) 0.005 % ophthalmic solution 1 Drop daily at bedtime. docusate sodium (COLACE) 100 mg capsule Take 100 mg by mouth twice daily. PAST MEDICAL HISTORY: PAST MEDICAL HISTORY Diagnosis Date Anxiety disorder Arthritis Chronic back pain Dr. Burks-pain management Depressive disorder, not elsewhere classified Diabetes (HCC) Essential hypertension, benign Fibromyalgia Glaucoma IBS (irritable bowel syndrome) Migraine, unspecified, without mention of intractable migraine without mention of status migrainosus PONV (postoperative nausea and vomiting) Pure hypercholesterolemia Rheumatoid arthritis (HCC) Snoring PAST SURGICAL HISTORY: PAST SURGICAL HISTORY Procedure Laterality Date APPENDECTOMY [...] TUBAL LIGATION HX 08/11/1997 VAGINAL HYSTERECTOMY FAMILY HISTORY: FAMILY HISTORY Problem Relation Age of Onset Diabetes Mother Hypertension Mother Heart Attack Mother Diabetes Father Hypertension Father Heart Attack Father COPD Sister other (sjorgens) Sister affects vision other (Other) Sister lupus Bipolar disorder Daughter Diabetes Maternal Grandmother SOCIAL HISTORY: Social Connections: Moderately Isolated (02/21/2020) Social Connection and Isolation Panel [NHANES] Frequency of Communication with Friends and Family: More than three times a week Frequency of Social Gatherings with Friends and Family: Once a week Attends [employer] Services: Never Active Member of Clubs or Organizations: No Attends Club or Organization Meetings: Never Marital Status: REVIEW OF SYSTEMS: GENERAL: No fever, chills, weight loss, or fatigue. ENMT: Negative CARDIOVASCULAR:NO CHEST PAIN, PALPITATIONS, ANKLE EDEMA RESPIRATORY: No chronic cough, wheezing, dyspnea, hemoptysis. GENITOURINARY: SEE HPI MUSCULOSKELETAL:NO CHRONIC BACK PAIN, ARTHRITIS, CHRONIC NECK PAIN SKIN: NO VARICOSE VEINS, RASH, ABNORMAL ITCHING HEME/LYMPH/IMMUNE:Negative for prolonged bleeding, bruising easily or swollen nodes NEUROLOGICAL: NO HEADACHES, NUMBNESS, SEIZURES, STROKE DIABETES: Yes All other systems reviewed and are negative PHYSICAL EXAMINATION: Blood pressure 122/75, pulse 66, temperature 36.7 C (98 F), temperature source Temporal, resp. rate16, weight 92.1 kg (203 lb), SpO2 100%. GENERAL: WNL nutrition, no deformities, healthy appearing NEURO: Awake, alert and oriented x 3 and Normal gait PSYCH: No signs of depression, anxiety, or agitation ENMT (Ear, Nose, Mouth, Throat): No masses, adenopathy, icterus. Thyroid nonpalpable RESP: NL effort, no retractions or purse-lip breathing. CV: No extremity swelling, varices, edema, pallor, erythema GASTROINTESTINAL: Soft, nontender, nondistended, no masses. HERNIAS: None SKIN: No rash, lesions No palpable lymphadenopathy MUSCULOSKELETAL: Extremities normal. No deformities, edema, clubbing or skin discoloration. PROBLEM LIST REVIEW: Yes LABS: Results for orders placed or performed in visit on 04/09/24 UA DIP, URINE (POC) Result Value Ref Range GLUCOSE UA (POCT) Negative Negative mg/dL BILIRUBIN UA (POCT) Negative Negative KETONE UA (POCT) Negative Negative mg/dL SPECIFIC GRAVITY UA (POCT) 1.020 1.005 - 1.030 HEMOGLOBIN/BLOOD UA (POCT) Moderate (A) Negative PH UA (POCT) 5.5 4.5 - 8.0 PROTEIN UA (POCT) Negative Negative mg/dL UROBILINOGEN UA (POCT) 0.2 Normal E.U./dL NITRITE UA (POCT) Negative Negative LEUKOCYTES UA (POCT) Small (A) Negative COLOR UA (POCT) Yellow CLARITY UA (POCT) Slightly Cloudy Urine Culture: Pending ASSESSMENT/PLAN: 1. Atrophic vaginitis - ICD9: 627.3, ICD10: N95.2 (primary diagnosis) 2. Dysuria - ICD9: 788.1, ICD10: R30.0 3. Microscopic hematuria - ICD9: 599.72, ICD10: R31.29 Chronic progressing, worsening > UTI like Symptoms - likely Atrophic Vaginitis > Recommended starting Estradiol and Probiotic > Reviewed Bladder Irritant Handout in detail with patient > May use Pyridium or AZO OTC Medication - New Trial Topical Estrogen > 3 mo. Appt w/ B. ALLA Stockton MT, PA-C for new Rx Follow-up Consultation requested by Mikayla Strange MD [id number] [phone] for an opinion regarding Zackery Nunez patient and my final recommendations will be communicated back to the requesting physician by way of shared Medical record or letter via US mail. ALLA Hull MT, PA-C documented in this encounter[facility] Telephone encounter Note * Telephone Encounter - Makenna Crowder RN - 03/09/2024 10:45 AM EDT Patient notified of results and provider's instructions. Patient verbalizes understanding. Makenna Crowder RN [facility]09-14-2024 Miscellaneous Notes* Telephone Encounter - Makenna Crowder RN - 03/09/2024 10:45 AM EDT Patient notified of results and provider's instructions. Patient verbalizes understanding. Makenna Crowder RN * Telephone Encounter - Hallie Adam LPN - 03/09/2024 10:41 AM EDT Message left to pt that the office would send pt the providers his response via my chart. She can call back if she has any questions. * Telephone Encounter - Mikayla Strange MD - 03/09/2024 7:50 AM EDT Her urine does not show an infection. Since still with symptoms and microscopic blood, see urology documented in this encounterSelect [facility]-2024 Telephone encounter Note * Telephone Encounter - Hallie Adam LPN - 03/09/2024 10:41 AM EDT Message left to pt that the office would send pt the providers his response via my chart. She can call back if she has any questions. [facility]09-14-2024 Telephone encounter Note* Telephone Encounter - Mikayla Strange MD - 03/09/2024 7:50 AM EDT Her urine does not show an infection. Since still with symptoms and microscopic blood, see urology [facility]09-11-2024 Telephone encounter Note* Telephone Encounter - Evelyn Castaneda MA - 03/06/2024 9:43 AM EDT Patient informed and verbalized understanding. Evelyn Castaneda MA [facility]09-11-2024 Miscellaneous Notes* Telephone Encounter - Evelyn Castaneda MA - 03/06/2024 9:43 AM EDT Patient informed and verbalized understanding. Evelyn Castaneda MA * Telephone Encounter - Mikayla Strange MD - 03/06/2024 9:26 AM EDT Will need culture done. If negative, will need to see urology. * Telephone Encounter - Adeline Hensley RN - 03/06/2024 9:21 AM EDT Pt called and is notified of providers results and question. Pt voices understanding. She states itis still uncomfortable and she has pressure when she urinate. She states she feels bad like last time when she had a really bad UTI. Pt reports to feeling really fatigued. Denies fever. Please advise. Adeline Hensley, RN * Telephone Encounter - Mikayla Strange MD - 03/06/2024 5:14 AM EDT Urine shows blood. No white cells. Any current urinary symptoms still? documented in this encounterSelect [facility]-2024 Telephone encounter Note * Telephone Encounter - Mikayla Strange MD - 03/06/2024 9:26 AM EDT Will need culture done. If negative, will need to see urology. [facility]09-11-2024 Telephone encounter Note* Telephone Encounter - Adeline Hensley RN - 03/06/2024 9:21 AM EDT Pt called and is notified of providers results and question. Pt voices understanding. She states itis still uncomfortable and she has pressure when she urinate. She states she feels bad like last time when she had a really bad UTI. Pt reports to feeling really fatigued. Denies fever. Please advise. Adeline Hensley RN [facility]09-11-2024 Telephone encounter Note* Telephone Encounter - Mikayla Strange MD - 03/06/2024 5:14 AM EDT Urine shows blood. No white cells. Any current urinary symptoms still? [facility]08-27-2024 Instructions* Patient Instructions* Mikayla Strange MD - 02/20/2024 4:13 PM EDT Taste changes in patients who have long COVID are common and can reduce quality of life. So what ifyou could change your taste receptors and potentially increase the palatability of certain foods. Aquilinoum carinam is a [place] plant that produces red berries commonly known as miracle fruit. A protein (Miraculin) found in these berries binds to the sweet taste receptors of the tongue.When this occurs it profoundly changes food taste profiles for a short duration, masking unpleasanttastes, and increasing the palatability of certain foods. This causes many sour, acidic foods to taste sweet. The effects of this fruit are short lived and last anywhere from 30 minutes to 2 hours conrado time before wearing off. While there are no studies in the effectiveness of this in long COVID patients, In a small study ofcancer patients with altered taste from chemotherapy, all participants reported improvements in taste after consuming miracle fruit. Specifically in foods that tasted metallic or bland. Miracle fruit berries can be bought on [employer]. Stomach ache and throat discomfort have been reported from taking the berries. If this occurs stop taking the miracle fruit. Do not take if you are allergic to this fruit. documented in this encounterSelect [facility]-27-2024 NoteHNO ID: [id number] Author: MIKAYLA STRANGE MD Service: ? Author Type: Physician Type: Progress Notes Filed: 02/20/2024 16:22 Note Text: No chief complaint on file. HPI: Patient presents today for office visit for multiple concerns. Urology: patient is concerned about urinary symptoms. Duration of symptoms: 5-6 days Dysuria: Yes. Refers to burning with urination. Urinary urgency: Yes. Urinary frequency: Yes. And very little comes out. Suprapubic pain: Yes. Cramping and pinching Back pain: No. Fever: No. Nausea: Yes. Vomiting: No. On Monday started not feeling well, got so sick and was sweating profusely. Refers to sweating so much her hair was soaked like she had just showered. Was worried about her BP so on Monday states her BP was 125/67 P. 67 Monday BP was 111/62 P. 63 Concerned about her Lisinopril. Symptoms started before hand. She is worried about medications. Requests cipro. Can take it even though levaquin is listed as an intolerance. Also is on celexa. Has taken the two together. She is still trying to lose weight. Discussed miracle fruit for her chronic taste issues. No chest pain or shortness of breath. No palpations or headaches. MEDICATIONS: Current Outpatient Medications Medication Sig atorvastatin (LIPITOR) 10 mg tablet Take 1 tablet by mouth once daily. busPIRone HCl 30 mg tablet Take 1 tablet by mouth two times a day. omeprazole (PRILOSEC) 40 mg capsule Take 40 mg by mouth once daily. hyoscyamine sublingual (LEVSIN/SL) 0.125 mg Dissolve 1 tablet under the tongue every 4 hours as needed. citalopram (CELEXA) 40 mg tablet Take 1 tablet by mouth once daily. promethazine (PHENERGAN) 25 mg tablet Take 1 tablet by mouth every 6 hours as needed. promethazine (PHENERGAN) 25 mg suppository 1 Suppository by RECTAL route every 6 hours as needed. SUMAtriptan (IMITREX) 50 mg tablet Take 1 tablet (50 mg) by mouth as needed. lisinopril (ZESTRIL) 10 mg tablet [...] bedtime. gabapentin (NEURONTIN) 300 mg capsule Take 300 mg by mouth. 900 mg (3 tabs) a.m, 600 mg (2 tabs) p.m predniSONE (DELTASONE) 10 mg tablet Take 1 [...] for this visit. ALLERGIES: ALLERGIES Allergen Reactions Vaibhav [Fexofenadi* Intolerance Augmentin [Amoxicil* Intolerance Bentyl [Dicyclomine* GI Upset Biaxin [Clarithromy* Intolerance Ceclor [Cefaclor] Intolerance Celebrex [Celecoxib] Intolerance Colestipol Other: See Comments shaky/headaches/increased nausea Compazine [Prochlor* Intolerance Doxepin Intolerance Fentanyl Intolerance Humira [Adalimumab] Intolerance Levaquin [Levofloxa* Intolerance Metformin GI Upset Gi intolerance Plaquenil [Hydroxyc* Intolerance Seldane Intolerance Septra [Sulfamethox* Intolerance Sulfa (Sulfonamide * Intolerance Vibramycin [Doxycyc* Intolerance Vicodin [Hydrocodon* Intolerance PAST MEDICAL HISTORY No date: Anxiety disorder No date: Arthritis No date: Chronic back pain Comment: Dr. Burks-pain management No date: Depressive disorder, not elsewhere classified No date: Diabetes (HCC) No date: Essential hypertension, benign No date: Fibromyalgia No date: Glaucoma No date: IBS (irritable bowel syndrome) No date: Migraine, unspecified, without mention of intractable migraine without mention of status migrainosus No date: PONV (postoperative nausea and vomiting) No date: Pure hypercholesterolemia No date: Rheumatoid arthritis (HCC) No date: Snoring PAST SURGICAL HISTORY 12/18/2014: APPENDECTOMY Comment: Dr. Blakely No date: APPENDECTOMY HX 04/22/2014: ARTHRP KNE CONDYLEANDPLATU MEDIALANDLAT COMPARTMENTS Comment: right 05/27/2022: COLONOSCOPY Comment: repeat in 10 years 10/01/2012: COLONOSCOPY FLX DX W/COLLJ SPEC WHEN PFRMD Comment: suboptimal - poor prep : EGD 07/30/2014: ESOPHAGOGASTRODUODENOSCOPY TRANSORAL DIAGNOSTIC Comment: EGD No date: JOINT REPLACEMENT HX 12/31/1993: LAPAROSCOPY SURG CHOLECYSTECTOMY 1994: PAST SURGICAL HISTORY OF Comment: knee, right arthroscopy No date: TONSILLECTOMY HX 08/11/1997: TUBAL LIGATION HX No date: VAGINAL HYSTERECTOMY FAMILY HISTORY Problem Relation Age of Onset Diabetes Mother Hypertension Mother Heart Attack Mother Diabetes Father Hypertension Fat (more content not included)...[facility] 02-20-2024 History of Present illness Narrative* Mikayla Strange MD - 02/20/2024 3:53 PM EDT No chief complaint on file. HPI: Patient presents today for office visit for multiple concerns. Urology: patient is concerned about urinary symptoms. Duration of symptoms: 5-6 days Dysuria: Yes. Refers to burning with urination. Urinary urgency: Yes. Urinary frequency: Yes. And very little comes out. Suprapubic pain: Yes. Cramping and pinching Back pain: No. Fever: No. Nausea: Yes. Vomiting: No. On Monday started not feeling well, got so sick and was sweating profusely. Refers to sweating so much her hair was soaked like she had just showered. Was worried about her BP so on Monday states her BP was 125/67 P. 67 Monday BP was 111/62 P. 63 Concerned about her Lisinopril. Symptoms started before hand. She is worried about medications. Requests cipro. Can take it even though levaquin is listed as an intolerance. Also is on celexa. Has taken the two together. She is still trying to lose weight. Discussed miracle fruit for her chronic taste issues. No chest pain or shortness of breath. No palpations or headaches. MEDICATIONS: Current Outpatient Medications Medication Sig atorvastatin (LIPITOR) 10 mg tablet Take 1 tablet by mouth once daily. busPIRone HCl 30 mg tablet Take 1 tablet by mouth two times a day. omeprazole (PRILOSEC) 40 mg capsule Take 40 mg by mouth once daily. hyoscyamine sublingual (LEVSIN/SL) 0.125 mg Dissolve 1 tablet under the tongue every 4 hours as needed. citalopram (CELEXA) 40 mg tablet Take 1 tablet by mouth once daily. promethazine (PHENERGAN) 25 mg tablet Take 1 tablet by mouth every 6 hours as needed. promethazine (PHENERGAN) 25 mg suppository 1 Suppository by RECTAL route every 6 hours as needed. SUMAtriptan (IMITREX) 50 mg tablet Take 1 tablet (50 mg) by mouth as needed. lisinopril (ZESTRIL) 10 mg tablet [...] bedtime. gabapentin (NEURONTIN) 300 mg capsule Take 300 mg by mouth. 900 mg (3 tabs) a.m, 600 mg (2 tabs) p.m predniSONE (DELTASONE) 10 mg tablet Take 1 [...] for this visit. ALLERGIES: ALLERGIES Allergen Reactions Vaibhav [Fexofenadi* Intolerance Augmentin [Amoxicil* Intolerance Bentyl [Dicyclomine* GI Upset Biaxin [Clarithromy* Intolerance Ceclor [Cefaclor] Intolerance Celebrex [Celecoxib] Intolerance Colestipol Other: See Comments shaky/headaches/increased nausea Compazine [Prochlor* Intolerance Doxepin Intolerance Fentanyl Intolerance Humira [Adalimumab] Intolerance Levaquin [Levofloxa* Intolerance Metformin GI Upset Gi intolerance Plaquenil [Hydroxyc* Intolerance Seldane Intolerance Septra [Sulfamethox* Intolerance Sulfa (Sulfonamide * Intolerance Vibramycin [Doxycyc* Intolerance Vicodin [Hydrocodon* Intolerance PAST MEDICAL HISTORY No date: Anxiety disorder No date: Arthritis No date: Chronic back pain Comment: Dr. Burks-pain management No date: Depressive disorder, not elsewhere classified No date: Diabetes (HCC) No date: Essential hypertension, benign No date: Fibromyalgia No date: Glaucoma No date: IBS (irritable bowel syndrome) No date: Migraine, unspecified, without mention of intractable migraine without mention of status migrainosus No date: PONV (postoperative nausea and vomiting) No date: Pure hypercholesterolemia No date: Rheumatoid arthritis (HCC) No date: Snoring PAST SURGICAL HISTORY 12/18/2014: APPENDECTOMY Comment: Dr. Blakely No date: APPENDECTOMY HX 04/22/2014: ARTHRP KNE CONDYLE&PLATU MEDIAL&LAT COMPARTMENTS Comment: right 05/27/2022: COLONOSCOPY Comment: repeat in 10 years 10/01/2012: COLONOSCOPY FLX DX W/COLLJ SPEC WHEN PFRMD Comment: suboptimal - poor prep : EGD 07/30/2014: ESOPHAGOGASTRODUODENOSCOPY TRANSORAL DIAGNOSTIC Comment: EGD No date: JOINT REPLACEMENT HX 12/31/1993: LAPAROSCOPY SURG CHOLECYSTECTOMY 1994: PAST SURGICAL HISTORY OF Comment: knee, right arthroscopy No date: TONSILLECTOMY HX 08/11/1997: TUBAL LIGATION HX No date: VAGINAL HYSTERECTOMY FAMILY HISTORY Problem Relation Age of Onset Diabetes Mother Hypertension Mother Heart Attack Mother Diabetes Father Hypertension Father Heart Attack Father COPD Sister other (sjorgens) Sister affects vision other (Other) Sister lupus Bipolar disorder Daughter Diabetes Maternal Grandmother Social History Tobacco Use Smoking status: Never Smokeless tobacco: Never Vaping Use Vaping status: Never Used Substance Use Topics Alcohol use: No Drug use: No Reviewed current medications, allergies, past medical history, surgical history, family history andsocial history today. REVIEW OF SYSTEMS All other reviewed and negative other than HPI. HEALTH MAINTENANCE: Reviewed health maintenance issues today and recommended the following in detail. BP Controlled (<130/80) Never done Cervical Cancer Screening due on 02/20/2021 Mammogram Screening due on 05/29/2024 VITALS: BP 124/60 Pulse 66 Ht 165.1 cm (5' 5) Wt 92.5 kg (204 lb) SpO2 99% BMI 33.95 kg/m Last 4 Encounter Wt Readings: Date: Wt: 01/05/2024 92.6 kg (204 lb 3.2 oz) 11/21/2023 94.3 kg (208 lb) 05/12/2023 104 kg (229 lb 3.2 oz) 10/25/2022 105.2 kg (232 lb) PHYSICAL EXAMINATION: General appearance: Well appearing, alert, in no acute distress, well-hydrated, well nourished. Skin: Skin color, texture, turgor normal, no suspicious rashes or lesions Head: Normocephalic, no masses, lesions, tenderness or abnormalities Back: no cva tenderness. Lungs: Lungs clear to auscultation. No wheezing, rhonchi, rales Heart: RRR without murmur, gallop, or rubs. No ectopy Abdomen: Normal abdominal exam, Abdomen soft, non-tender. Bowel sounds normal. No masses, organomegaly Extremities: No deformities, edema, skin discoloration, clubbing or cyanosis. Good capillary refill. ASSESSMENT/PLAN: 1. Urinary tract infection with hematuria, site unspecified - ICD9: 599.0, 599.70, ICD10: N39.0, R31.9 (primary diagnosis) acute - UA positive for dheeraj esterase, hematuria, and nitrates - Patient education for prevention given Recheck urine in two weeks. Suspect is cause of issues. Discussed risks and benefits of new medication with the patient. Advised them to call if any side effects or questions. Red flags for re-assessment reviewed with patient in detail. Call if symptoms worsen at all or if not better in one to two weeks Reviewed diagnosis and treatment options in detail. Questions were answered. Patient expressed understanding of treatment plan. - URINALYSIS WITH MICROSCOPIC, REFLEX CULTURE - URINE CULTURE - CIPROFLOXACIN 250 MG TABLET 2. Encounter for screening mammogram for malignant neoplasm of breast - ICD9: V76.12, ICD10: Z12.31 - Follow up for annual exam in one year. - [facility] SCREENING Mikayla Strange MD documented in this encounterCleveland [id number] Telephone encounter Note * Telephone Encounter - Linda Madison RN - 02/05/2024 2:56 PM EDT Katerine pharmacist with [employer] calling to follow up on a fax request for pt's Atorvastatin and his Buspirone. Explained we don't accept fax requests. [facility] is who [employer] uses so that is where prescriptions need to go. The patient has been identified by name and date of : Yes Caregiver verified no other encounters exist for this prescription request: Yes Caregiver confirmed with patient/requestor that no other refills are due, in the near future, with this provider at this time: Yes The last office visit in the department: 01/05/2024 Does the patient have a future office visit with this provider/department: Yes 07/09/2024 Requested Prescriptions Pending Prescriptions Disp Refills atorvastatin (LIPITOR) 10 mg tablet 90 tablet 3 Sig: Take 1 tablet by mouth once daily. busPIRone HCl 30 mg tablet 180 tablet 3 Sig: Take 1 tablet by mouth two times a day. Linda Madison RN February 05, 2024 3:54 PM [facility]08-12-2024 Miscellaneous Notes* Telephone Encounter - Linda Madison RN - 02/05/2024 2:56 PM EDT Katerine pharmacist with [employer] calling to follow up on a fax request for pt's Atorvastatin and his Buspirone. Explained we don't accept fax requests. [facility] is who [facility] [employer] uses so that is where prescriptions need to go. The patient has been identified by name and date of : Yes Caregiver verified no other encounters exist for this prescription request: Yes Caregiver confirmed with patient/requestor that no other refills are due, in the near future, with this provider at this time: Yes The last office visit in the department: 01/05/2024 Does the patient have a future office visit with this provider/department: Yes 07/09/2024 Requested Prescriptions Pending Prescriptions Disp Refills atorvastatin (LIPITOR) 10 mg tablet 90 tablet 3 Sig: Take 1 tablet by mouth once daily. busPIRone HCl 30 mg tablet 180 tablet 3 Sig: Take 1 tablet by mouth two times a day. Linda Madison RN February 05, 2024 3:54 PM documented in this encounterSelect [facility] Telephone encounter Note * Telephone Encounter - Lara Brown RN - 01/08/2024 12:31 PM EDT Patient calls and notified of results and providers instructions. Patient verbalizes understanding. Lab appt scheduled. Lara Brown RN [facility]07-15-2024 Miscellaneous Notes* Telephone Encounter - Lara Brown RN - 01/08/2024 12:31 PM EDT Patient calls and notified of results and providers instructions. Patient verbalizes understanding. Lab appt scheduled. Lara Brown RN * Telephone Encounter - Jade Lopez LPN - 01/08/2024 9:25 AM EDT Left message to call and speak with nurse. * Telephone Encounter - Mikayla Strange MD - 01/08/2024 9:12 AM EDT Protein levels are slightly higher. Make sure taking boost, ensure or carnation instant breakfast regularly. Slightly anemic. Recheck anemia labs in one week documented in this encounterSelect [facility] Telephone encounter Note * Telephone Encounter - Jade Lopez LPN - 01/08/2024 9:25 AM EDT Left message to call and speak with nurse. [facility]07-15-2024 Telephone encounter Note* Telephone Encounter - Mikayla Strange MD - 01/08/2024 9:12 AM EDT Protein levels are slightly higher. Make sure taking boost, ensure or carnation instant breakfast regularly. Slightly anemic. Recheck anemia labs in one week [facility]07-12-2024 Instructions* Patient Instructions* Mikayla Strange MD - 01/05/2024 11:54 AM EDT Miracle Fruit berries Vijay figueroa is a [place] plant that produces red berries commonly known as miracle fruit. A protein (Miraculin) found in these berries binds to the sweet taste receptors of the tongue.When this occurs it profoundly changes food taste profiles for a short duration, masking unpleasanttastes, and increasing the palatability of certain foods. This causes many sour, acidic foods to taste sweet. The effects of this fruit are short lived and last anywhere from 30 minutes to 2 hours conrado time before wearing off. In a small study of cancer patients with altered taste from chemotherapy, all participants reportedimprovements in taste after consuming miracle fruit. Specifically in foods that tasted metallic or bland. Miracle fruit berries can be bought on [employer]. Stomach ache and throat discomfort have been reported from taking the berries. If this occurs stop taking the miracle fruit. Do not take if you are allergic to this fruit. documented in this encounterSelect [facility]24 NoteHNO ID: [id number] Author: MIKAYLA STRANGE MD Service: ? Author Type: Physician Type: Progress Notes Filed: 01/05/2024 12:01 Note Text: Patient presents with: Follow Up HPI: Patient presents today for office visit for 6 week follow up. Protein status is low. Started drinking Boost once every other day and is trying to make herself eat more. Not feeling as shaky anymore. Weight loss has slowed. She admits that some of the weight loss is now intentional. She has limited sense of smell for years. She feels that can affect her taste and appetite. It is picking up. She is happy with her weight and wants to lose more. No abd pain. No bowel changes. No shortness of breath or chest pain. Stress levels are stable. See previous ov: Concerns of muscle pulling on left side of neck/jaw only when yawning. Refers to when she yawns a muscle pulls her head downward. Had known ddd of cervial spine. Cervical spine injections has helped in the past. Sees Dr Ward for that. Advised to start there. No new neuro issues. DM: Has stopped Metformin about 6 months ago. Was having some gi issues. Doesn't watch diet too closely Hasn't had much of an appetite lately Checks sugars occasionally. Not daily. Continues on Cinnamon capsules and Berberine Still with some numbness and tingling in feet. No foot lesions. No polyuria or polydipsia. No vision changes. Sees Dr. Bedolla next week. HTN: Continues on Lisinopril 10 mg daily Denies chest pain and shortness of breath Denies headaches and dizziness. Denies palpitations and syncope. Denies edema. PSYCH: Emotionally is stressed. Currently estranged from her daughter. Continues on Citalopram 40 mg daily Buspirone 30 mg BID Followed by Rheum, Ophthalmology, and pain mgt. Has pinched nerve in left hip. Complains of pain in toes X [address] Ward next week. Setting up hip injection. HLD: Continues on Atorvastatin No myalgias Had recent labs per rheum that showed renal function Is stable. Has lost weight. Decreased appetite. Some of the weight loss with her stress. Will follow. Has some ear discomfort and ringing. No definite hearing loss. Some occasional balance issues. No new headache or numbness or weakness. Latest Ref Rng 11/23/2023 Cholesterol, Total <200 mg/dL 167 Triglyceride <150 mg/dL 148 HDL Cholesterol >39 mg/dL 54 Non HDL Cholesterol <130 mg/dL 113 Fasting Time hrs 12 VLDL Cholesterol <30 mg/dL 30 (H) TC:HDL Ratio <5.10 3.09 LDL Cholesterol <100 mg/dL 83 LDL:HDL Ratio <2.54 1.54 Albumin 3.9 - 4.9 g/dL 4.4 Bilirubin, Total 0.2 - 1.3 mg/dL 0.3 Bilirubin, Conjug <0.2 mg/dL <0.2 Alkaline Phosphatase 34 - 123 U/L 89 AST 13 - 35 U/L 14 ALT 7 - 38 U/L 6 (L) Protein, Total 6.3 - 8.0 g/dL 7.4 Creatinine, Ur Random (UCRR) 20.0 - 300.0 mg/dL 78.7 Albumin, Urine Random mg/L <12.0 Albumin/Creat Ratio <30 mg/g <15 Hemoglobin A1C 4.3 - 5.6 % 5.8 (H) Estimated Average Glucose mg/dL 120 TSH 0.270 - 4.200 mIU/L 2.190 Prealbumin 17 - 36 mg/dL 15 (L) MEDICATIONS: Current Outpatient Medications Medication Sig omeprazole (PRILOSEC) 40 mg capsule Take 40 mg by mouth once daily. hyoscyamine sublingual (LEVSIN/SL) 0.125 mg Dissolve 1 tablet under the tongue every 4 hours as needed. citalopram (CELEXA) 40 mg tablet Take 1 tablet by mouth once daily. promethazine (PHENERGAN) 25 mg tablet Take 1 tablet by mouth every 6 hours as needed. promethazine (PHENERGAN) 25 mg suppository 1 Suppository by RECTAL route every 6 hours as needed. SUMAtriptan (IMITREX) 50 mg tablet Take 1 tablet (50 mg) by mouth as needed. lisinopril (ZESTRIL) 10 mg tablet Take 1 tablet by mouth once daily. atorvastatin (LIPITOR) 10 mg tablet Take 1 tablet by mouth once daily. busPIRone HCl 30 mg tablet Take 1 tablet by mouth twice daily. buprenorphine 20 mcg/hour ptwk APPLY 1 PATCH TOPICALLY ONCE A WEEK FOR 4 WEEKS oxyCODONE-acetaminophen (PERCOCET) 5-325 mg tablet 1 tablet three times daily as needed. upadacitinib (RINVOQ ORAL) Take 15 mg by mouth. amitriptyline (ELAVIL) 10 mg tablet Take 1 tablet by mouth daily at bedtime. gabapentin (NEURONTIN) 300 mg capsule Take 300 mg by mouth. 5 tabs daily predniSONE (DELTASONE) 10 mg tablet Take 1 [...] for this visit. ALLERGIES: ALLERGIES Allergen Reactions Vaibhav [Fexofenadi* Intolerance Augmentin [Amoxicil* Intolerance Bentyl [Dicyclomine* GI Upset Biaxin [Clarithromy* Intolerance Ceclor [Cefaclor] Intolerance Celebrex [Celecoxib] Intolerance Colestipol Other: See Comments shaky/headaches (more content not included)...[facility] 01-05-2024 History of Present illness Narrative* Mikayla Strange MD - 01/05/2024 11:20 AM EDT Patient presents with: Follow Up HPI: Patient presents today for office visit for 6 week follow up. Protein status is low. Started drinking Boost once every other day and is trying to make herself eat more. Not feeling as shaky anymore. Weight loss has slowed. She admits that some of the weight loss is now intentional. She has limited sense of smell for years. She feels that can affect her taste and appetite. It is picking up. She is happy with her weight and wants to lose more. No abd pain. No bowel changes. No shortness of breath or chest pain. Stress levels are stable. See previous ov: Concerns of muscle pulling on left side of neck/jaw only when yawning. Refers to when she yawns a muscle pulls her head downward. Had known ddd of cervial spine. Cervical spine injections has helped in the past. Sees Dr Ward for that. Advised to start there. No new neuro issues. DM: Has stopped Metformin about 6 months ago. Was having some gi issues. Doesn't watch diet too closely Hasn't had much of an appetite lately Checks sugars occasionally. Not daily. Continues on Cinnamon capsules and Berberine Still with some numbness and tingling in feet. No foot lesions. No polyuria or polydipsia. No vision changes. Sees Dr. Bedolla next week. HTN: Continues on Lisinopril 10 mg daily Denies chest pain and shortness of breath Denies headaches and dizziness. Denies palpitations and syncope. Denies edema. PSYCH: Emotionally is stressed. Currently estranged from her daughter. Continues on Citalopram 40 mg daily Buspirone 30 mg BID Followed by Rheum, Ophthalmology, and pain mgt. Has pinched nerve in left hip. Complains of pain in toes X [address] Ward next week. Setting up hip injection. HLD: Continues on Atorvastatin No myalgias Had recent labs per rheum that showed renal function Is stable. Has lost weight. Decreased appetite. Some of the weight loss with her stress. Will follow. Has some ear discomfort and ringing. No definite hearing loss. Some occasional balance issues. No new headache or numbness or weakness. Latest Ref Rng 11/23/2023 Cholesterol, Total <200 mg/dL 167 Triglyceride <150 mg/dL 148 HDL Cholesterol >39 mg/dL 54 Non HDL Cholesterol <130 mg/dL 113 Fasting Time hrs 12 VLDL Cholesterol <30 mg/dL 30 (H) TC:HDL Ratio <5.10 3.09 LDL Cholesterol <100 mg/dL 83 LDL:HDL Ratio <2.54 1.54 Albumin 3.9 - 4.9 g/dL 4.4 Bilirubin, Total 0.2 - 1.3 mg/dL 0.3 Bilirubin, Conjug <0.2 mg/dL <0.2 Alkaline Phosphatase 34 - 123 U/L 89 AST 13 - 35 U/L 14 ALT 7 - 38 U/L 6 (L) Protein, Total 6.3 - 8.0 g/dL 7.4 Creatinine, Ur Random (UCRR) 20.0 - 300.0 mg/dL 78.7 Albumin, Urine Random mg/L <12.0 Albumin/Creat Ratio <30 mg/g <15 Hemoglobin A1C 4.3 - 5.6 % 5.8 (H) Estimated Average Glucose mg/dL 120 TSH 0.270 - 4.200 mIU/L 2.190 Prealbumin 17 - 36 mg/dL 15 (L) MEDICATIONS: Current Outpatient Medications Medication Sig omeprazole (PRILOSEC) 40 mg capsule Take 40 mg by mouth once daily. hyoscyamine sublingual (LEVSIN/SL) 0.125 mg Dissolve 1 tablet under the tongue every 4 hours as needed. citalopram (CELEXA) 40 mg tablet Take 1 tablet by mouth once daily. promethazine (PHENERGAN) 25 mg tablet Take 1 tablet by mouth every 6 hours as needed. promethazine (PHENERGAN) 25 mg suppository 1 Suppository by RECTAL route every 6 hours as needed. SUMAtriptan (IMITREX) 50 mg tablet Take 1 tablet (50 mg) by mouth as needed. lisinopril (ZESTRIL) 10 mg tablet Take 1 tablet by mouth once daily. atorvastatin (LIPITOR) 10 mg tablet Take 1 tablet by mouth once daily. busPIRone HCl 30 mg tablet Take 1 tablet by mouth twice daily. buprenorphine 20 mcg/hour ptwk APPLY 1 PATCH TOPICALLY ONCE A WEEK FOR 4 WEEKS oxyCODONE-acetaminophen (PERCOCET) 5-325 mg tablet 1 tablet three times daily as needed. upadacitinib (RINVOQ ORAL) Take 15 mg by mouth. amitriptyline (ELAVIL) 10 mg tablet Take 1 tablet by mouth daily at bedtime. gabapentin (NEURONTIN) 300 mg capsule Take 300 mg by mouth. 5 tabs daily predniSONE (DELTASONE) 10 mg tablet Take 1 [...] for this visit. ALLERGIES: ALLERGIES Allergen Reactions Vaibhav [Fexofenadi* Intolerance Augmentin [Amoxicil* Intolerance Bentyl [Dicyclomine* GI Upset Biaxin [Clarithromy* Intolerance Ceclor [Cefaclor] Intolerance Celebrex [Celecoxib] Intolerance Colestipol Other: See Comments shaky/headaches/increased nausea Compazine [Prochlor* Intolerance Doxepin Intolerance Fentanyl Intolerance Humira [Adalimumab] Intolerance Levaquin [Levofloxa* Intolerance Metformin GI Upset Gi intolerance Plaquenil [Hydroxyc* Intolerance Seldane Intolerance Septra [Sulfamethox* [...] today and recommended the following in detail. Cervical Cancer Screening due on 02/20/2021 Serum Creatinine due on 11/05/2023 Hemoglobin/Hematocrit due on 11/05/2023 Mammogram Screening due on 05/29/2024 VITALS: BP 138/62 Pulse 68 Ht 165.1 cm (5' 5) Wt 92.6 kg (204 lb 3.2 oz) SpO2 99% BMI 33.98 kg/m Last 4 Encounter Wt Readings: Date: Wt: 01/05/2024 92.6 kg (204 lb 3.2 oz) 11/21/2023 94.3 kg (208 lb) 05/12/2023 104 kg (229 lb 3.2 oz) 10/25/2022 105.2 kg (232 lb) PHYSICAL EXAMINATION: General appearance: Well appearing, [...] discoloration, clubbing or cyanosis. Good capillary refill. ASSESSMENT/PLAN: 1. Malnutrition of mild degree (HCC) - ICD9: 263.1, ICD10: E44.1 (primary diagnosis) - doing better with appetite recheck labs. - PREALBUMIN 2. Weight loss - ICD9: 783.21, ICD10: R63.4 - COMPLETE BLOOD COUNT AND DIFFERENTIAL - BASIC METABOLIC PANEL 3. Type 2 diabetes mellitus without complication, without long-term current use of insulin (HCC) - ICD9: 250.00, ICD10: E11.9 - follow labs in six months or prn - COMPLETE BLOOD COUNT AND DIFFERENTIAL - COMPREHENSIVE METABOLIC PANEL - HEMOGLOBIN A1C Mikayla Strange MD documented in this encounterSelect [facility] Telephone encounter Note * Telephone Encounter - Adriano Paniagua RN - 11/24/2023 9:43 AM EDT Pt returned call and given provider's message below with verbalized understanding. Patient agreeable. [facility]05-31-2024 Miscellaneous Notes* Telephone Encounter - Adriano Paniagua RN - 11/24/2023 9:43 AM EDT Pt returned call and given provider's message below with verbalized understanding. Patient agreeable. * Telephone Encounter - Sharon Rievra MA - 11/24/2023 9:29 AM EDT Left message for patient to call office back Sharon Rivera MA * Telephone Encounter - Mikayla Strange MD - 11/24/2023 8:03 AM EDT Labs show her protein status is low. Add ensure or boost once a day until follow up. documented in this encounterSelect [facility] Telephone encounter Note * Telephone Encounter - Sharon Rivera MA - 11/24/2023 9:29 AM EDT Left message for patient to call office back Sharon Rivera MA [facility]05-31-2024 Telephone encounter Note* Telephone Encounter - Mikayla Strange MD - 11/24/2023 8:03 AM EDT Labs show her protein status is low. Add ensure or boost once a day until follow up. [facility]05-28-2024 History of Present illness Narrative* Mikayla Strange MD - 11/21/2023 1:40 PM EDT Patient presents with: 6 Month Exam HPI: Patient presents today for office visit for follow up. Concerns of muscle pulling on left side of neck/jaw only when yawning. Refers to when she yawns a muscle pulls her head downward. Had known ddd of cervial spine. Cervical spine injections has helped in the past. Sees Dr Ward for that. Advised to start there. No new neuro issues. DM: Has stopped Metformin about 6 months ago. Was having some gi issues. Doesn't watch diet too closely Hasn't had much of an appetite lately Checks sugars occasionally. Not daily. Continues on Cinnamon capsules and Berberine Still with some numbness and tingling in feet. No foot lesions. No polyuria or polydipsia. No vision changes. Sees Dr. Bedolla next week. HTN: Continues on Lisinopril 10 mg daily Denies chest pain and shortness of breath Denies headaches and dizziness. Denies palpitations and syncope. Denies edema. PSYCH: Emotionally is stressed. Currently estranged from her daughter. Continues on Citalopram 40 mg daily Buspirone 30 mg BID Followed by Rheum, Ophthalmology, and pain mgt. Has pinched nerve in left hip. Complains of pain in toes X [address] Ward next week. Setting up hip injection. HLD: Continues on Atorvastatin No myalgias Had recent labs per rheum that showed renal function Is stable. Has lost weight. Decreased appetite. Some of the weight loss with her stress. Will follow. Has some ear discomfort and ringing. No definite hearing loss. Some occasional balance issues. No new headache or numbness or weakness. MEDICATIONS: Current Outpatient Medications Medication Sig omeprazole (PRILOSEC) 40 mg capsule Take 40 mg by mouth once daily. citalopram (CELEXA) 40 mg tablet Take 1 tablet by mouth once daily. promethazine (PHENERGAN) 25 mg tablet Take 1 tablet by mouth every 6 hours as needed. promethazine (PHENERGAN) 25 mg suppository 1 Suppository by RECTAL route every 6 hours as needed. SUMAtriptan (IMITREX) 50 mg tablet Take 1 tablet (50 mg) by mouth as needed. lisinopril (ZESTRIL) 10 mg tablet Take 1 tablet by mouth once daily. atorvastatin (LIPITOR) 10 mg tablet Take 1 tablet by mouth once daily. busPIRone HCl 30 mg tablet Take 1 tablet by mouth twice daily. buprenorphine 20 mcg/hour ptwk APPLY 1 PATCH TOPICALLY ONCE A WEEK FOR 4 WEEKS oxyCODONE-acetaminophen (PERCOCET) 5-325 mg tablet 1 tablet three times daily as needed. upadacitinib (RINVOQ ORAL) Take 15 mg by mouth. amitriptyline (ELAVIL) 10 mg tablet Take 1 tablet by mouth daily at bedtime. gabapentin (NEURONTIN) 300 mg capsule Take 300 mg by mouth. 5 tabs daily predniSONE (DELTASONE) 10 mg tablet Take 1 tablet by mouth as needed for Pain. Cetirizine 10 mg cap Take by mouth. CALCIUM POLYCARBOPHIL (FIBER LAXATIVE ORAL) Take by mouth. multivitamin tablet Take 1 tablet by mouth once daily. latanoprost (XALATAN) 0.005 % ophthalmic solution 1 Drop daily at bedtime. docusate sodium (COLACE) 100 mg capsule Take 100 mg by mouth twice daily. hyoscyamine sublingual (LEVSIN/SL) 0.125 mg Dissolve 1 tablet under the tongue every 4 hours as needed. No current facility-administered medications for this visit. ALLERGIES: ALLERGIES Allergen Reactions Vaibhav [Fexofenadi* Intolerance Augmentin [Amoxicil* Intolerance Bentyl [Dicyclomine* [...] today and recommended the following in detail. Covid-19 Vaccine(1) Never done DTaP,Tdap,Td Vaccine(1 - Tdap) Never done Dilated Retinal Exam -sees Dr Bedolla next week. Sees him periodically for glaucoma. Advance Directive Discussion- needs done Behavioral Health Screening -Behavioral Health Screening PHQ-2 Score: 1 (Lower risk for depression) NAM-2 Score: 1 (Lower risk for anxiety) Recommendation: no further intervention at this time Serum Creatinine due on 11/05/2023 Hemoglobin/Hematocrit due on 11/05/2023 HbA1C due on 11/10/2023 Urine Albumin:Creatinine Ratio due on 11/05/2023 LDL Cholesterol due on 11/05/2023 VITALS: BP 105/68 Pulse 76 Ht 165.1 cm (5' 5) Wt 94.3 kg (208 lb) BMI 34.61 kg/m Last 4 Encounter Wt Readings: Date: Wt: 05/12/2023 104 kg (229 lb 3.2 oz) 10/25/2022 105.2 kg (232 lb) 06/22/2022 115.8 kg (255 lb 6.4 oz) 05/27/2022 110.1 kg (242 lb 11.6 oz) PHYSICAL EXAMINATION: General appearance: Well appearing, alert, in no acute distress, well-hydrated, well nourished. Skin: Skin color, texture, turgor normal, no suspicious rashes or lesions Head: Normocephalic, no masses, lesions, tenderness or abnormalities Ears. Left tm is clear. Right has small amount of cerumen. Offered to irrigate. Has drops at home. Neck: Supple, no adenopath Lungs: Lungs clear to auscultation. No wheezing, rhonchi, rales Heart: RRR without murmur, gallop, or rubs. No ectopy Abdomen: Normal abdominal exam, Abdomen soft, non-tender. Bowel sounds normal. No masses, organomegaly Extremities: No deformities, edema, skin discoloration, clubbing or cyanosis. Good capillary refill. Musculoskeletal: No joint swelling, deformity, or tenderness Peripheral pulses: Normal Neuro: Gait normal. Reflexes normal and symmetric. Sensation grossly intact.. normal dtrs ASSESSMENT/PLAN: 1. Fibromyalgia - ICD9: 729.1, ICD10: M79.7 (primary diagnosis) - stable. 2. Type 2 diabetes mellitus without complication, without long-term current use of insulin (HCC) - ICD9: 250.00, ICD10: E11.9 - Controlled - Continue current medications - HEMOGLOBIN A1C - LIPID PANEL BASIC - HEPATIC FUNCTION PNL - ALBUMIN/CREATININE RATIO, URINE 3. Irritable bowel syndrome with constipation - ICD9: 564.1, ICD10: K58.1 - HYOSCYAMINE 0.125 MG SUBLINGUAL TABLET 4. Migraine without aura, intractable, without status migrainosus - ICD9: 346.11, ICD10: G43.019 - stable. 5. Primary hypertension - ICD9: 401.9, ICD10: I10 - Controlled 6. Other hyperlipidemia - ICD9: 272.4, ICD10: E78.49- Continue current medications - LIPID PANEL BASIC - HEPATIC FUNCTION PNL 7. Stage 3 chronic kidney disease, unspecified whether stage 3a or 3b CKD ([facility]) - ICD9: 585.3, ICD10: N18.30 - stable. Avoid nsaids. 8. Rheumatoid arthritis, involving unspecified site, unspecified whether rheumatoid factor present ([facility]) - ICD9: 714.0, ICD10: M06.9 - stable. 9. DDD (degenerative disc disease), lumbar - ICD9: 722.52, ICD10: M51.36 - per pain management. 10. Weight loss - ICD9: 783.21, ICD10: R63.4 - follow closely. Recheck in six weeks. - THYROID STIMULATING HORMONE - PREALBUMIN Mikayla Strange MD documented in this encounterSelect [facility]-28[facility]24 NoteHNO ID: [id number] Author: MIKAYLA STRANGE MD Service: ? Author Type: Physician Type: Progress Notes Filed: 11/21/2023 14:06 Note Text: Patient presents with: 6 Month Exam HPI: Patient presents today for office visit for follow up. Concerns of muscle pulling on left side of neck/jaw only when yawning. Refers to when she yawns a muscle pulls her head downward. Had known ddd of cervial spine. Cervical spine injections has helped in the past. Sees Dr Ward for that. Advised to start there. No new neuro issues. DM: Has stopped Metformin about 6 months ago. Was having some gi issues. Doesn't watch diet too closely Hasn't had much of an appetite lately Checks sugars occasionally. Not daily. Continues on Cinnamon capsules and Berberine Still with some numbness and tingling in feet. No foot lesions. No polyuria or polydipsia. No vision changes. Sees Dr. Bedolla next week. HTN: Continues on Lisinopril 10 mg daily Denies chest pain and shortness of breath Denies headaches and dizziness. Denies palpitations and syncope. Denies edema. PSYCH: Emotionally is stressed. Currently estranged from her daughter. Continues on Citalopram 40 mg daily Buspirone 30 mg BID Followed by Rheum, Ophthalmology, and pain mgt. Has pinched nerve in left hip. Complains of pain in toes X [address] Ward next week. Setting up hip injection. HLD: Continues on Atorvastatin No myalgias Had recent labs per rheum that showed renal function Is stable. Has lost weight. Decreased appetite. Some of the weight loss with her stress. Will follow. Has some ear discomfort and ringing. No definite hearing loss. Some occasional balance issues. No new headache or numbness or weakness. MEDICATIONS: Current Outpatient Medications Medication Sig omeprazole (PRILOSEC) 40 mg capsule Take 40 mg by mouth once daily. citalopram (CELEXA) 40 mg tablet Take 1 tablet by mouth once daily. promethazine (PHENERGAN) 25 mg tablet Take 1 tablet by mouth every 6 hours as needed. promethazine (PHENERGAN) 25 mg suppository 1 Suppository by RECTAL route every 6 hours as needed. SUMAtriptan (IMITREX) 50 mg tablet Take 1 tablet (50 mg) by mouth as needed. lisinopril (ZESTRIL) 10 mg tablet Take 1 tablet by mouth once daily. atorvastatin (LIPITOR) 10 mg tablet Take 1 tablet by mouth once daily. busPIRone HCl 30 mg tablet Take 1 tablet by mouth twice daily. buprenorphine 20 mcg/hour ptwk APPLY 1 PATCH TOPICALLY ONCE A WEEK FOR 4 WEEKS oxyCODONE-acetaminophen (PERCOCET) 5-325 mg tablet 1 tablet three times daily as needed. upadacitinib (RINVOQ ORAL) Take 15 mg by mouth. amitriptyline (ELAVIL) 10 mg tablet Take 1 tablet by mouth daily at bedtime. gabapentin (NEURONTIN) 300 mg capsule Take 300 mg by mouth. 5 tabs daily predniSONE (DELTASONE) 10 mg tablet Take 1 tablet by mouth as needed for Pain. Cetirizine 10 mg cap Take by mouth. CALCIUM POLYCARBOPHIL (FIBER LAXATIVE ORAL) Take by mouth. multivitamin tablet Take 1 tablet by mouth once daily. latanoprost (XALATAN) 0.005 % ophthalmic solution 1 Drop daily at bedtime. docusate sodium (COLACE) 100 mg capsule Take 100 mg by mouth twice daily. hyoscyamine sublingual (LEVSIN/SL) 0.125 mg Dissolve 1 tablet under the tongue every 4 hours as needed. No current facility-administered medications for this visit. ALLERGIES: ALLERGIES Allergen Reactions Vaibhav [Fexofenadi* Intolerance Augmentin [Amoxicil* Intolerance Bentyl [Dicyclomine* [...] JOINT REPLACEMENT HX LAPAROSCOPY SURG CHOLECYSTECTOMY 12/31/1993 (more content not included)... [facility]05-23-2024 Telephone encounter Note* Telephone Encounter - Ginger Lundberg APRN.CNS - 11/16/2023 12:21 PM EDT The following approved medication requests have been transmitted electronically. Requested Prescriptions Pending Prescriptions Disp Refills metFORMIN ER (GLUCOPHAGE XR) 500 mg 24 hr tablet 90 tablet 3 Sig: Take 1 tablet by mouth daily with breakfast. Ginger Lundberg APRN.CNS [facility]05-23-2024 Miscellaneous Notes* Telephone Encounter - Ginger Lundberg APRN.CNS - 11/16/2023 12:21 PM EDT The following approved medication requests have been transmitted electronically. Requested Prescriptions Pending Prescriptions Disp Refills metFORMIN ER (GLUCOPHAGE XR) 500 mg 24 hr tablet 90 tablet 3 Sig: Take 1 tablet by mouth daily with breakfast. Ginger Lundberg APRN.CNS * Telephone Encounter - Adeline Hensley RN - 11/16/2023 11:56 AM EDT Patient has been identified by name and date of : Yes, Provider Dr Strange Date 11/16/23 Time 1159. Pts insurance phones for refill(s): Requested Prescriptions Pending Prescriptions Disp Refills metFORMIN ER (GLUCOPHAGE XR) 500 mg 24 hr tablet 90 tablet 3 Sig: Take 1 tablet by mouth daily with breakfast. Date of last office visit in primary care: 05/12/2023 Date of next office visit in primary care: 11/21/2023 Please advise. Thank you. Adeline Hensley RN. documented in this encounterSelect [facility]05-23-2024 Telephone encounter Note * Telephone Encounter - Adeline Hensley RN - 11/16/2023 11:56 AM EDT Patient has been identified by name and date of : Yes, Provider Dr Strange Date 11/16/23 Time 1159. Pts insurance phones for refill(s): Requested Prescriptions Pending Prescriptions Disp Refills metFORMIN ER (GLUCOPHAGE XR) 500 mg 24 hr tablet 90 tablet 3 Sig: Take 1 tablet by mouth daily with breakfast. Date of last office visit in primary care: 05/12/2023 Date of next office visit in primary care: 11/21/2023 Please advise. Thank you. Adeline Hensley RN. [facility]02-20-2024 Miscellaneous Notes* Telephone Encounter - Demario Mulligan - 08/15/2023 4:32 PM EST Patient has been identified by name and date of : Yes Requested Prescriptions Pending Prescriptions Disp Refills citalopram (CELEXA) 40 mg tablet 90 tablet 3 Sig: Take 1 tablet by mouth once daily. atorvastatin (LIPITOR) 10 mg tablet 90 tablet 3 Sig: Take 1 tablet by mouth once daily. busPIRone HCl 30 mg tablet 180 tablet 3 Sig: Take 1 tablet by mouth two times a day. lisinopril (ZESTRIL) 10 mg tablet 90 tablet 3 Sig: Take 1 tablet by mouth once daily. promethazine (PHENERGAN) 25 mg tablet 24 tablet 6 Sig: Take 1 tablet by mouth every 6 hours as needed. promethazine (PHENERGAN) 25 mg suppository 24 Suppository 6 Si Suppository by RECTAL route every 6 hours as needed. SUMAtriptan (IMITREX) 50 mg tablet 9 tablet 3 Sig: Take 1 tablet (50 mg) by mouth as needed. RX INSTRUCTIONS: Patient aware RX escripted to mail away pharmacy. No need to notify patient. Demario Dowling Pss documented in this encounterSelect [facility]02-13-2024 Miscellaneous Notes* Telephone Encounter - Adeline Hensley RN - 08/08/2023 1:22 PM EST Patient has been identified by name and [...] you. Adeline Hensley RN. documented in this encounterSelect [facility]12-05-2023 Miscellaneous Notes* Letter - Coordinator, Mammography - 05/30/2023 7:35 AM EST May 30, 2023 PID: [id number] Zackery Nunez [address] [place] [address] Dear Ms. Nunez, We are pleased to inform you that [...] report will be kept on file at [facility] as part of your permanent medical record and are available for your continuing care. Thank you for allowing us to help in meeting your health care needs. Sincerely, Dr. Chester Interpreting Radiologist [facility] (Normal over 40) documented in this encounterSelect Medical Specialty [facility]12-04-2023 History of Present illness Narrative* Viviana Lawrence Mammo Tech - 05/29/2023 12:30 PM EST Radiology Service Progress Note PATIENT NAME: Zackery Nunez DATE OF SERVICE: May 29, 2023 TIME: [...] Isha Johnson May 29, 2023 12:43 PM documented in this encounterSelect Medical [facility]ty [facility]11-17-2023 History of Present illness Narrative* Mikayla Strange MD - 05/12/2023 1:48 PM EST Patient presents with: 6 Month Exam HPI: Patient presents today for office visit for follow up. Requesting Rx for larger diabetic shoes. Has permanent insoles. Insoles have helped. Uses [employer]. Sees Dr. Muniz, Podiatry. Has not seen [...] Seeing Rheum. Emotionally doing well. Followed by [facility]. Dr. Bedolla. Hx of glaucoma. Continues on [...] for this visit. ALLERGIES: ALLERGIES Allergen Reactions Vaibhav [Fexofenadi* Intolerance Augmentin [Amoxicil* Intolerance Bentyl [Dicyclomine* [...] 104/62 Pulse 93 Ht 165.1 cm (5' 5) Wt 104 kg (229 lb 3.2 oz) [...] pulses, sensitive to 10 gm monofilament, calluses notedbilaterally, and bunion on the right. One plus [...] SCREENING Mikayla Strange MD documented in this encounterSelect [facility]11-14-2023 Miscellaneous Notes* Telephone Encounter - Ginger Neville LPN - 05/09/2023 2:24 PM EST Last ov 10/25/2022 Next appointment scheduled 05/12/2023 * Telephone Encounter - Neyda Olivares - 05/09/2023 11:24 AM EST Patient has been identified by name and date of : Yes Requested Prescriptions Pending Prescriptions Disp Refills hyoscyamine sublingual (LEVSIN/SL) 0.125 mg 60 tablet 3 Sig: Dissolve 1 tablet under the tongue every 4 hours as needed. RX INSTRUCTIONS: Patient aware RX will be sent to pharmacy. No need to notify patient. Neyda Ponce documented in this encounterSelect [facility]11-03-2023 Miscellaneous Notes* Telephone Encounter - Jade Lopez LPN - 04/28/2023 4:14 PM EDT Scheduled 05/12/23. * Telephone Encounter - Kimberly Ovalle - 04/28/2023 3:59 PM EDT Patient needs this to go to [email or web address] for a 90 days supply as she [...] notify patient. Kimberly Ovalle documented in this encounterSelect [facility]ty [facility]07-12-2023 Miscellaneous Notes* Telephone Encounter - Jade Lopez LPN - 01/04/2023 4:47 PM EDT Patient has been identified by [...] patient. Jade Lopez LPN documented in this encounterSelect Medical [facility]ty [facility]07-12-2023 Miscellaneous Notes* Telephone Encounter - Jade Lopez LPN - 01/04/2023 4:45 PM EDT Patient has been identified by [...] patient. 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 I will discuss with [facility]. Last option include surgical arthrodesis Patient is interested in trying the inserts and if pain continues, consider injection Discussed ununited fracture. She has no pain to this location. If pain were present, would considerorif with bone graft Noe Muniz DPM * Adeline Herrera RN - 10/31/2022 1:17 PM EDT AMB ROOMING INTAKE FLOWSHEET DATA Pain Pain Level: 6 Pain Location: Foot-Left Description: Sharp, Stabbing Duration Amount of Time: 1.5 Duration Units: Years Frequency: Intermittent Intervention/Comfort measure: Relaxation, Reposition Patient presents with: Left Foot - Established Patient, Follow Up, Pain Patient presents to review CT results and see what the next steps are. documented in this encounterSelect [facility]05-02-2023 History of Past illness Narrative* Problem Noted [...] of this encounter (statuses as of 05/12/2023) [facility] History of Past illness Narrative* Problem Noted [...] of this encounter (statuses as of 05/30/2023) [facility] History of Past illness Narrative* Problem Noted [...] of this encounter (statuses as of 06/01/2023) [facility] History of Past illness Narrative* Problem Noted [...] of this encounter (statuses as of 08/08/2023) [facility] History of Past illness Narrative* Problem Noted [...] as of this encounter (statuses as of 08/15/2023) [facility]-2023 History of Present illness Narrative* Mikayla Strange [...] INTRAVENOUS DIRECTED PRN ALLERGIES: ALLERGIES Allergen Reactions Vaibhav [Fexofenadi* Intolerance Augmentin [Amoxicil* Intolerance Bentyl [Dicyclomine* [...] 82 Resp 16 Ht 165.1 cm (5' 5) Wt 105.2 kg (232 lb) BMI 38.61 [...] Class III, BMI 40-49.9 (morbid obesity) (HCC) - ICD9: 278.01, ICD10: E66.01 - discussed [...] (HCC) - ICD9: 714.0, ICD10: M06.9 - stable, [...] RTO in six months documented in this encounterSelect Medical [facility]ty [facility]04-25-2023 Miscellaneous Notes* Telephone Encounter - Neyda Ponce [...] notify patient. Neyda Ponce documented in this encounterSelect [facility]04-14-2023 Miscellaneous Notes* Telephone Encounter - Sheba Morgan LPN - 10/07/2022 1:57 PM EDT Patient scheduled appt for 10/[address] results [address]. Muniz. Sheba Morgan LPN * Telephone Encounter - Noe Muniz - 09/23/2022 5:08 PM EDT I attempted to contact patient with results of ct. No call. Left message for patient to contact me Noe Muniz DPM documented in this encounterSelect Medical [facility]03-20-2023 History of Present illness Narrative* Lula Arrington RT(R) - 09/12/2022 1:40 PM EDT Radiology Service Progress Note PATIENT NAME: Zackery Nunez DATE OF SERVICE: September 12, 2022 TIME: [...] 12, 2022 3:12 PM documented in this encounterSelect Medical [facility]03-08-2023 Miscellaneous Notes* Telephone Encounter - Milagros Diaz RN - 08/31/2022 4:17 PM EST Phone call to patient. She states she does not have a rash. No itching, redness to foot. Patient towait until after CT to reschedule injection. CT is scheduled on 09/12/22. * Telephone Encounter - Noe Muniz - 08/29/2022 4:51 PM EST I attempted to contact patient to see how her rash was doing and to discuss options not limited to setting up repeat injection vs consideration into doing an ultrasound guided aspiration. No answer. I left message saying I will try again later Noe Muniz DPM * Telephone Encounter - Adeline Herrera RN - 08/29/2022 11:[address] scheduled for 09/12 * Telephone Encounter - Selam Mccartney - 08/27/2022 9:38 AM EST - first attempt to contact patient. Left message to return call Selam Mccartney * Telephone Encounter - Noe Muniz - 08/26/2022 2:16 PM EST Patient [...] getting ct scan too. documented in this encounterSelect Medical [facility]02-28-2023 Miscellaneous Notes* Telephone Encounter - Adeline Herrera RN - 08/23/2022 9:57 AM EST Referral entered into epic. * Telephone Encounter - Shanae Rahman LPN - 08/23/2022 8:49 AM EST Monik with [facility] pre cert called asking if patient had pre certification verified for surgery? Please advise Thank you. Monik# [phone] Shanae Rahman LPN documented in this encounterSelect Medical [facility]02-25-2023 History of Present illness Narrative* Noe Muniz - 08/20/2022 10:30 PM EST FOLLOW [...] (H) 4.3 - 5.6 % Final Comment: [place] [employer] guidelines indicate that patients with [...] mL INTRAVENOUS DIRECTED PRN ALLERGIES Allergen Reactions Vaibhav [Fexofenadi* Intolerance Augmentin [Amoxicil* Intolerance Bentyl [Dicyclomine* [...] insert. Consent signed for xray guided injection. Noe Muniz DPM * Angelic Montgomery LPN - 08/18/2022 3:27 PM EST AMB ROOMING INTAKE FLOWSHEET DATA Pain Pain Level: 9 Pain Location: Foot-Left Description: Stabbing, Sharp Duration Amount of Time: 2 Duration Units: Years Frequency: Intermittent Intervention/Comfort measure: Reposition, Relaxation, Medication Patient presents with: Left Foot - Established Patient, Follow Up, Pain, sign consent Sign consent. Angelic Montgomery LPN documented in this encounterSelect Medical [facility]ty [facility]02-24-2023 Miscellaneous Notes* Telephone Encounter - Angelic Montgomery LPN - 08/19/2022 10:44 AM EST Consent sent to [facility] on 08/18/2022. Angelic Motngomery LPN * Telephone Encounter - Dominique Augustine RN - 08/18/2022 2:44 PM EST Amanda, a PAT nurse from [facility], called. She received all of the paperwork for Zackery's upcoming procedure, except for the consent for surgery. Could someone from the office please fax that to her? Dominique Augustine RN documented in this encounterSelect Medical Specialty [facility]02-23-2023 History of Present illness Narrative* Nadiya Santacruz, RT(R) - 08/18/2022 4:00 PM EST Radiology Service Progress Note PATIENT NAME: Zackery Nunez DATE OF SERVICE: August 18, 2022 TIME: [...] 18, 2022 3:55 PM documented in this encounterSelect Medical Specialty [facility]02-22-2023 Miscellaneous Notes* Telephone Encounter - Angelic Montgomery LPN - 08/17/2022 3:26 PM EST Patient is scheduled for Xray guided injection at [facility] on 08/26/2022. Patient has PAT appointment at 2 pm on 08/18/2022. Patient has appointment in office on 08/18/2022 to sign consent. Angelic Montgomery LPN documented in this encounterSelect Medical [facility]02-20-2023 Miscellaneous Notes* Telephone Encounter - Monik Hsu Pss - 08/15/2022 2:02 PM EST Pharmacy verified in [facility] Patient has been identified by name and [...] advise. Monik Hsu Pss documented in this encounterSelect Medical [facility]02-13-2023 History of Present illness Narrative* Noe Muniz - 08/08/2022 11:07 AM EST FOLLOW [...] (H) 4.3 - 5.6 % Final Comment: [place] [employer] guidelines indicate that patients with [...] mL INTRAVENOUS DIRECTED PRN ALLERGIES Allergen Reactions Vaibhav [Fexofenadi* Intolerance Augmentin [Amoxicil* Intolerance Bentyl [Dicyclomine* [...] arrangements to do under sedation. She prefers [facility] so will make arrangements. Custom orthotics prescribed. [...] and it does help. documented [facility] encounter[facility] History of Present illness Narrative* Angelic Montgomery LPN - 07/04/2022 3:[address] Muniz, Zackery was provided with Coineycast, size M, and instructed/educated in itsapplication, wear, and care. All questions were answered, and patient was able to demonstrate competence with the necessary skills to utilize the above equipment. Billed to Ronaldo Montgomery LPN * Noe Muniz - 07/04/2022 1:09 PM EST Images from [...] mL INTRAVENOUS DIRECTED PRN ALLERGIES Allergen Reactions Vaibhav [Fexofenadi* Intolerance Augmentin [Amoxicil* Intolerance Bentyl [Dicyclomine* [...] 5. Xrays ordered 6. Callus reduced with dremmel Noe Muniz DPM * Angelic Montgomery LPN - [...] Care Angelic Montgomery LPN documented in this encounterSelect [facility] History of Present illness Narrative* Ofe Morales RT(R) - 07/04/2022 1:50 PM EST Radiology Service Progress Note PATIENT NAME: Zackery Nunez DATE OF SERVICE: July 04, 2022 TIME: [...] BY: RT Burton(R) July 04, 2022 1:50 PM documented in this encounterSelect [facility]01-09-2023 Instructions* Patient Instructions* Noe Muniz - 07/04/2022 1:[address] you in boot for left foot pain Apply heel lift in right foot to help counter balance the boot on left Ok to walk in boot Can remove boot at night when sleeping If you develop any pain in calf, present to ed Noe Muniz DPM documented in this encounterSelect [facility]12-29-[facility]22 History of Present illness Narrative* Gwen Blakely MD - 06/23/2022 7:44 PM EST Zackery Nunez 1960 REFERRING PHYSICIAN: Gwen Blakely MD CHIEF [...] 100 mg by mouth twice daily. ALLERGIES: Vaibhav [Fexofenadine Hcl], Augmentin [Amoxicillin-Pot Clavulanate], Bentyl [DicyclomineHcl], [...] C (97.3 F), height 167.6 cm (5' 6), weight 115.8 kg (255 lb 6.4 oz), [...] any pertinent laboratory studies/radiological imaging/medical records , [id number] patient care, obtaining oral medical history from the patient in this encounter, counseling and educating the patient/family/caregiver, and ordering and/or scheduling of medications/tests/procedures, and completing appropriate medical documentation. Gwen Blakely MD documented in this encounterSelect [facility]12-02-2022 Nurse Note* Mela Potts RN - 05/27/2022 9:18 AM EST Patient arrived laying on left side. Patient denies pain at this time. Patient's abdomen appears gonsalo nondistended and soft to palpation. Patient encouraged to pass gas. documented in this encounterSelect [facility]12-02-2022 History and physical note * Gwen Blakely [...] . SIGNATURE: Gwen Blakely MD PATIENT NAME: Zackery Nunez DATE: May 27, 2022 TIME: 8:37 AM Source Note - Gwen Blakely MD - 05/27/2022 8:15 AM EST HISTORY AND PHYSICAL Zackery Nunez 1960 REFERRING PHYSICIAN: Mikayla Strange MD CHIEF COMPLAINT: Consult (Colonoscopy consult, last colon 2012) HPI: The patient is a 62 year old female referred for endoscopy. Zackery notes intermittent nauseawith emesis and diarrhea for [...] (Patient not taking: Reported on 04/11/2022) ALLERGIES: Vaibhav [Fexofenadine Hcl], Augmentin [Amoxicillin-Pot Clavulanate], Bentyl [DicyclomineHcl], [...] entered by the nurse and reviewed by me Nursing Notes: Dominique Augustine RN 04/11/2022 3:18 [...] C (98 F), height 167.6 cm (5' 6), weight 112.7 kg (248 lb 6.4 oz), [...] 05/27/2022 8:15 AM EST HISTORY AND PHYSICAL Zackery Arthurrachel 1960 REFERRING PHYSICIAN: Mikayla Strange MD CHIEF COMPLAINT: Consult (Colonoscopy consult, last colon 2012) HPI: The patient is a 62 year old female referred for endoscopy. Zackery notes intermittent nauseawith emesis and diarrhea for [...] (Patient not taking: Reported on 04/11/2022) ALLERGIES: Vaibhav [Fexofenadine Hcl], Augmentin [Amoxicillin-Pot Clavulanate], Bentyl [DicyclomineHcl], [...] entered by the nurse and reviewed by ar Nursing Notes: Dominique Augustine RN 04/11/2022 3:18 [...] C (98 F), height 167.6 cm (5' 6), weight 112.7 kg (248 lb 6.4 oz), [...] bowel habits (R11.0) Nausea documented in this encounterSelect [facility]11-25-2022 Miscellaneous Notes* Telephone Encounter - Yordy Martinez LPN - 05/20/2022 3:36 PM EST Patient phones requesting refills as follows: Requested Prescriptions Pending Prescriptions Disp Refills citalopram (CELEXA) 40 mg tablet 90 tablet 0 Sig: Take 1 tablet by mouth once daily. Please review and advise. Yordy Martinez LPN documented in this encounterSelect [facility]10-26-2022 Miscellaneous Notes* Telephone Encounter - Deborah Alberts - 04/20/2022 3:53 PM EDT Patient given results and verbalized understanding of instructions given. Deborah Alberts * Telephone Encounter - Deborah Alberts - 04/20/2022 3:52 PM EDT ----- Message from Mariah Jones APRN.EVE sent at 04/20/2022 3:02 PM EDT ----- Urine culture did not show any evidence of infection. She may continue to take antibiotic if it hasbeen helpful. If not improving, recommend follow up with PCP. Mariah Jones CNP documented in this encounterSelect [facility]10-21-2022 Miscellaneous Notes* Letter - Mammography Coordinator - 04/15/2022 9:02 AM EDT April 15, 2022 PID: [id number] Zackery Nunez [address] [place] [address] Dear Ms. Nunez, We are pleased to inform you that [...] report will be [facility] as part of your permanent medical record and are available for your continuing care. Thank you for allowing us to help in meeting your health care needs. Sincerely, Dr. Gonzalez Interpreting Radiologist [facility] (Normal over 40) documented in this encounterSelect Medical [facility]ty [facility]10-20-2022 Miscellaneous Notes* Telephone Encounter - Adeline Hensley [...] make sure is ok. documented in this encounterSelect [facility]10-20-2022 History of Present illness Narrative* RT Camila(R) - 04/14/2022 2:10 PM EDT Radiology Service Progress Note PATIENT NAME: Zackery uNnez DATE OF SERVICE: April 14, 2022 TIME: [...] 14, 2022 1:53 PM documented in this encounterSelect [facility]10-17-2022 History of Present illness Narrative* Gwen Blakely MD - 04/11/2022 7:26 PM EDT HISTORY AND PHYSICAL Zackery Nunez 1960 REFERRING PHYSICIAN: Mikayla Strange MD CHIEF COMPLAINT: Consult (Colonoscopy consult, last colon 2012) HPI: The patient is a 62 year old female referred for endoscopy. Zackery notes intermittent nauseawith emesis and diarrhea for [...] (Patient not taking: Reported on 04/11/2022) ALLERGIES: Vaibhav [Fexofenadine Hcl], Augmentin [Amoxicillin-Pot Clavulanate], Bentyl [DicyclomineHcl], [...] entered by the nurse and reviewed by ar Nursing Notes: Dominique Augustine RN 04/11/2022 3:18 [...] C (98 F), height 167.6 cm (5' 6), weight 112.7 kg (248 lb 6.4 oz), [...] patient was offered a [facility]. The provider and patient have discussed [...] patient will be scheduled for [facility] at [facility] Medical Decision Making: Problems: Moderate: 2+ stable chronic illnesses Risk: Low: Low risk from testing/treatment Medical Decision Making Level: 3 - Low Gwen Blakely MD documented in this encounterSelect [facility]10-17-2022 Instructions* Patient Instructions* Gwen Blakely MD - 04/11/2022 3:17 PM EDT Images from the original note were not included. Bowel Preparation Instructions for: Golytely, Nulytely, Trilyte or Colyte (polyethylene glycol 3350and electrolytes) IF YOU DO NOT FOLLOW THESE DIRECTIONS, YOUR COLONOSCOPY WILL BE CANCELLED. Cotton Instructions: Your bowel must be empty so [...] If you do not have a responsible reefer truck driver (family member or friend) with you [...] preparation solution at [facility] 05/2019 Bowel Preparation Instructions for: Golytely, [...] your exam. 2 05/2019 documented in this encounterSelect [facility]10-17-2022 Nurse Note* Dominique Augustine RN - 04/11/2022 [...] 2012 Dominique Augustine RN documented in this encounterSelect [facility]10-11-2022 Miscellaneous Notes* Telephone Encounter - Mikayla Strange [...] yesterday again. Sweat is pouring off of her. States this is recurrent and has been off and on for about 10 years. She states her histology assistant Dr. Ortiz states it is likely an [...] all of these symptoms reoccur Protocols used: [id number] documented in this encounterSelect Medical [facility]09-28-2022 Miscellaneous Notes* Telephone Encounter - Bre Castillo [...] Sugars borderline. Watch diet. documented in this encounterSelect [facility]09-08-2022 Miscellaneous Notes* Telephone Encounter - Monik Ponce - 03/03/2022 11:52 AM EDT Pharmacy verified [facility] Patient has been identified by name and [...] 117.9 kg (260 lb) Please advise. Monik Hsu Pss documented in this encounterSelect [facility]08-09-2022 History of Present illness Narrative* Noe Muniz - 02/01/2022 7:36 AM EDT Images [...] (H) 4.3 - 5.6 % Final Comment: [place] [employer] guidelines indicate that patients with [...] mL INTRAVENOUS DIRECTED PRN ALLERGIES Allergen Reactions Vaibhav [Fexofenadi* Intolerance Augmentin [Amoxicil* Intolerance Bentyl [Dicyclomine* [...] grafting and nwb. Will monitor for now. Noe Muniz DPM * Angelic Montgomery LPN - [...] today. Angelic Montgomery LPN documented in this encounterSelect Medical [facility]08-08-2022 Instructions* Patient Instructions* Noe Muniz - 01/31/2022 4:03 PM EDT Powerstep Original Full length. Can purchase at [employer] here in [place], [employer] in [place] or [place]. Also can find in [place] in [facility]. Powersteps can also be purchased online, [...] consider injection vs mri documented in this encounterSelect [facility]07-22-2022 History of Present illness Narrative* Mikayla Strange [...] down and noticed that her fingers were mclain. Refers that she was a little out [...] INTRAVENOUS DIRECTED PRN ALLERGIES: ALLERGIES Allergen Reactions Vaibhav [Fexofenadi* Intolerance Augmentin [Amoxicil* Intolerance Bentyl [Dicyclomine* [...] Strange Keep next appt documented in this encounterSelect [facility]07-07-2022 Instructions* Patient Instructions* Noe Muniz - 12/30/2021 10:14 AM EDT Diabetes [...] (or decreased sensation in your feet) a medical lab assistant should always cut your toenails. Be Careful [...] Go to your health care provider or medical lab assistant to treat these conditions. Powerstep Original Full length. Can purchase at [employer] here in [place], [employer] in [place] or [place]. Also can find in [place] in [facility]. Powersteps can also be purchased online, [...] everything fits well together documented in this encounterSelect [facility]07-07-2022 History of Present illness Narrative* Noe Muniz - 12/30/2021 10:03 AM EDT Consultation [...] mL INTRAVENOUS DIRECTED PRN ALLERGIES Allergen Reactions Vaibhav [Fexofenadi* Intolerance Augmentin [Amoxicil* Intolerance Bentyl [Dicyclomine* [...] Objective: Patient presents to clinic ambulating in [facility] Constitutional: Pt is a well developed 61 [...] 6 months or sooner if problems arise. Noe Muniz DPM * Kiara Do LPN - 12/30/2021 9:55 AM EDT Patient presents with: Left Foot - Pain New Patient: Left foot pain AMB ROOMING INTAKE FLOWSHEET DATA Pain Pain Level: 10 Pain Location: Foot-Left Description: Stabbing, Sharp Duration Amount of Time: 9 Duration Units: Months Frequency: Continuous Intervention/Comfort measure: Medication documented in this encounterSelect [facility]07-01-2022 Instructions* Patient Instructions* Sayda Carr APRN.MATH AND SCIENCES DEPARTMENT CHAIR - 12/24/2021 2:50 PM EDT 1. Continue to watch for symptoms. 2. Please let us know if it contniues. 3. Schedule echo. 4. Get the stress test as planned. documented in this encounterSelect [facility]07-01-2022 History of Present illness Narrative* Sayda Carr APRN.CNP - 12/24/2021 2:15 PM EDT This is a 61 year old female who presents today with: Patient presents with: Acute Visit: discolored finger tips HISTORY OF PRESENT ILLNESS: Zackery Nunez is a 61 year old female. Patient [...] down and noticed that her fingers were mclain. Refers that she was a little out [...] right arthroscopy TUBAL LIGATION HX 08/11/97 ALLERGIES Vaibhav [Fexofenadine Hcl], Augmentin [Amoxicillin-Pot Clavulanate], Bentyl [Dicyclomine [...] stress test as previously ordered (schedule at [facility] Recently had a CBC, which was normal. [...] as needed for worsening/no improvement. Sayda Carr APRN.EVE The patient indicates understanding of these issues and agrees with the plan. * Sharon Rivera Ma - 12/24/2021 2:00 PM EDT Patient scheduled for same day Sharon Rivera Ma documented in this encounterSelect [facility]07-01-2022 Miscellaneous Notes* Telephone Encounter - Sharon Rivera Ma - 12/24/2021 1:25 PM EDT Patient [...] having trouble and noticed her fingers looked mclain. She states it looks lik she tried [...] Please call and advise. documented in this encounterSelect Medical [facility]06-24-2022 History of Present illness Narrative* Nadiya Santacruz RT(R) - 12/17/2021 3:10 PM EDT Radiology Service Progress Note PATIENT NAME: Zackery Nunez DATE OF SERVICE: December 17, 2021 TIME: 3:35 PM PATIENT IDENTITY VERIFICATION COMPLETED USING TWO [...] Yes RADIOLOGY DEPARTMENT: General X-ray: Exam(s) Completed: Chest X-Ray Lower Extremity X-Ray(s): Foot, Left and Wt. Bearing PERIPHERAL IV DATA: Not applicable SIGNED BY: RT Fabiola(R) December 17, 2021 3:35 PM documented in this encounterSelect Medical [facility]ty [facility]06-01-2022 Miscellaneous Notes* Telephone Encounter - Adeline Hensley RN - 11/24/2021 10:49 AM EDT First order was sent to [email or web address], and Pt reports that she needs it [...] you. Adeline Hensley RN documented in this encounterSelect Medical [facility]05-27-2022 Miscellaneous Notes* Telephone Encounter - Sharon Rivera Ma - 11/19/2021 9:02 AM EDT PA completed through [employer] and approved Left for patient on confidential vm Sharon Rivera Ma * Telephone Encounter - Lara Brown RN - 11/18/2021 3:02 PM EDT Prior Authorization Documentation Prior authorization requested for the following medication: Medication: Promethazine 25 mg suppository Provider: Dr. Strange Insurance Company Name: [employer] Phone number: Patient ID number: [id number] Pharmacy Name:[email or web address] Telephone number: [phone] Lara Brown RN documented in this encounterSelect Medical [facility]05-25-2022 History of Present illness Narrative* Mikayla Strange [...] for this visit. ALLERGIES: ALLERGIES Allergen Reactions Vaibhav [Fexofenadi* Intolerance Augmentin [Amoxicil* Intolerance Bentyl [Dicyclomine* [...] for bp and prn. documented in this encounterSelect Medical [facility]05-25-2022 History of Past illness Narrative* Problem Noted Date Resolved Date Elevated BP without diagnosis of hypertension 01/14/2022 Type 2 diabetes mellitus wit hout complication, without long-term current use of insulin 03/12/2021 01/14/2022 Rheumatoid arthritis of [facility] with negative rheumatoid factor 05/11/2019 01/14/2022 Overview: Has seen Dr. Buck. Cannot tolerate meds Hyperglycemia 05/11/2019 03/12/2021 Overview: Had last hba1c which was stable 04/13 Nausea alone 07/30/2014 07/30/2014 Abdominal pain, epigastric 07/30/201407/30 Chronic back pain 09/17/2021 Overview: Dr. Burks-pain management documented as of this encounter (statuses as of 01/14/2022) [facility] History of Past illness Narrative* Problem Noted Date Resolved Date Elevated BP without diagnosis of hypertension 01/14/2022 Type 2 diabetes mellitus wit hout complication, without long-term current use of insulin 03/12/2021 01/14/2022 Rheumatoid arthritis of [facility] with negative rheumatoid factor 05/11/2019 01/14/2022 Overview: Has seen Dr. Buck. Cannot tolerate meds Hyperglycemia 05/11/2019 03/12/2021 Overview: Had last hba1c which was stable 04/13 Nausea alone 07/30/2014 07/30/2014 Abdominal pain, epigastric 07/30/201407/30 Chronic back pain 09/17/2021 Overview: Dr. Burks-pain management documented as of this encounter (statuses as of 02/01/2022) [facility] History of Past illness Narrative* Problem Noted Date Resolved Date Elevated BP without diagnosis of hypertension 01/14/2022 Type 2 diabetes mellitus wit hout complication, without long-term current use of insulin 03/12/2021 01/14/2022 Rheumatoid arthritis of [facility] with negative rheumatoid factor 05/11/2019 01/14/2022 Overview: Has seen Dr. Buck. Cannot tolerate meds Hyperglycemia 05/11/2019 03/12/2021 Overview: Had last hba1c which was stable 04/13 Nausea alone 07/30/2014 07/30/2014 Abdominal pain, epigastric 07/30/201407/30 Chronic back pain 09/17/2021 Overview: Dr. Burks-pain management documented as of this encounter (statuses as of 03/03/2022) [facility] History of Past illness Narrative* Problem Noted Date Resolved Date Elevated BP without diagnosis of hypertension 01/14/2022 Type 2 diabetes mellitus wit hout complication, without long-term current use of insulin 03/12/2021 01/14/2022 Rheumatoid arthritis of [facility] with negative rheumatoid factor 05/11/2019 01/14/2022 Overview: Has seen Dr. Buck. Cannot tolerate meds Hyperglycemia 05/11/2019 03/12/2021 Overview: Had last hba1c which was stable 04/13 Nausea alone 07/30/2014 07/30/2014 Abdominal pain, epigastric 07/30/201407/30 Chronic back pain 09/17/2021 Overview: Dr. Burks-pain management documented as of this encounter (statuses as of 03/24/2022) [facility] History of Past illness Narrative* Problem Noted Date Resolved Date Elevated BP without diagnosis of hypertension 01/14/2022 Type 2 diabetes mellitus wit hout complication, without long-term current use of insulin 03/12/2021 01/14/2022 Rheumatoid arthritis of [facility] with negative rheumatoid factor 05/11/2019 01/14/2022 Overview: Has seen Dr. Buck. Cannot tolerate meds Hyperglycemia 05/11/2019 03/12/2021 Overview: Had last hba1c which was stable 04/13 Nausea alone 07/30/2014 07/30/2014 Abdominal pain, epigastric 07/30/201407/30 Chronic back pain 09/17/2021 Overview: Dr. Burks-pain management documented as of this encounter (statuses as of 04/05/2022) [facility] History of Past illness Narrative* Problem Noted Date Resolved Date Elevated BP without diagnosis of hypertension 01/14/2022 Type 2 diabetes mellitus wit hout complication, without long-term current use of insulin 03/12/2021 01/14/2022 Rheumatoid arthritis of [facility] with negative rheumatoid factor 05/11/2019 01/14/2022 Overview: Has seen Dr. Buck. Cannot tolerate meds Hyperglycemia 05/11/2019 03/12/2021 Overview: Had last hba1c which was stable 04/13 Nausea alone 07/30/2014 07/30/2014 Abdominal pain, epigastric 07/30/201407/30 Chronic back pain 09/17/2021 Overview: Dr. Burks-pain management documented as of this encounter (statuses as of 04/12/2022) [facility] History of Past illness Narrative* Problem Noted Date Resolved Date Elevated BP without diagnosis of hypertension 01/14/2022 Type 2 diabetes mellitus wit hout complication, without long-term current use of insulin 03/12/2021 01/14/2022 Rheumatoid arthritis of [facility] with negative rheumatoid factor 05/11/2019 01/14/2022 Overview: Has seen Dr. Buck. Cannot tolerate meds Hyperglycemia 05/11/2019 03/12/2021 Overview: Had last hba1c which was stable 04/13 Nausea alone 07/30/2014 07/30/2014 Abdominal pain, epigastric 07/30/201407/30 Chronic back pain 09/17/2021 Overview: Dr. Burks-pain management documented as of this encounter (statuses as of 04/14/2022) [facility] History of Past illness Narrative* Problem Noted Date Resolved Date Elevated BP without diagnosis of hypertension 01/14/2022 Type 2 diabetes mellitus wit hout complication, without long-term current use of insulin 03/12/2021 01/14/2022 Rheumatoid arthritis of [facility] with negative rheumatoid factor 05/11/2019 01/14/2022 Overview: Has seen Dr. Buck. Cannot tolerate meds Hyperglycemia 05/11/2019 03/12/2021 Overview: Had last hba1c which was stable 04/13 Nausea alone 07/30/2014 07/30/2014 Abdominal pain, epigastric 07/30/201407/30 Chronic back pain 09/17/2021 Overview: Dr. Burks-pain management documented as of this encounter (statuses as of 04/15/2022) [facility] of Past illness Narrative* Problem Noted Date Resolved Date Elevated BP without diagnosis of hypertension 01/14/2022 Type 2 diabetes mellitus wit hout complication, without long-term current use of insulin 03/12/2021 01/14/2022 Rheumatoid arthritis of [facility] with negative rheumatoid factor 05/11/2019 01/14/2022 Overview: Has seen Dr. Buck. Cannot tolerate meds Hyperglycemia 05/11/2019 03/12/2021 Overview: Had last hba1c which was stable 04/13 Nausea alone 07/30/2014 07/30/2014 Abdominal pain, epigastric 07/30/201407/30 Chronic back pain 09/17/2021 Overview: Dr. Burks-pain management documented as of this encounter (statuses as of 04/19/2022) [facility] of Past illness Narrative* Problem Noted Date Resolved Date Elevated BP without diagnosis of hypertension 01/14/2022 Type 2 diabetes mellitus wit hout complication, without long-term current use of insulin 03/12/2021 01/14/2022 Rheumatoid arthritis of [facility] with negative rheumatoid factor 05/11/2019 01/14/2022 Overview: Has seen Dr. Buck. Cannot tolerate meds Hyperglycemia 05/11/2019 03/12/2021 Overview: Had last hba1c which was stable 04/13 Nausea alone 07/30/2014 07/30/2014 Abdominal pain, epigastric 07/30/201407/30 Chronic back pain 09/17/2021 Overview: Dr. Burks-pain management documented as of this encounter (statuses as of 04/20/2022) [facility] of Past illness Narrative* Problem Noted Date Resolved Date Elevated BP without diagnosis of hypertension 01/14/2022 Type 2 diabetes mellitus wit hout complication, without long-term current use of insulin 03/12/2021 01/14/2022 Rheumatoid arthritis of [facility] with negative rheumatoid factor 05/11/2019 01/14/2022 Overview: Has seen Dr. Buck. Cannot tolerate meds Hyperglycemia 05/11/2019 03/12/2021 Overview: Had last hba1c which was stable 04/13 Nausea alone 07/30/2014 07/30/2014 Abdominal pain, epigastric 07/30/201407/30 Chronic back pain 09/17/2021 Overview: Dr. Burks-pain management documented as of this encounter (statuses as of 05/20/2022) [facility] [place]05-25-2022 History of Past illness Narrative* Problem Noted Date Resolved Date Elevated BP without diagnosis of hypertension 01/14/2022 Type 2 diabetes mellitus wit hout complication, without long-term current use of insulin 03/12/2021 01/14/2022 Rheumatoid arthritis of [facility] with negative rheumatoid factor 05/11/2019 01/14/2022 Overview: Has seen Dr. Buck. Cannot tolerate meds Hyperglycemia 05/11/2019 03/12/2021 Overview: Had last hba1c which was stable 04/13 Nausea alone 07/30/2014 07/30/2014 Abdominal pain, epigastric 07/30/201407/30 Chronic back pain 09/17/2021 Overview: Dr. Burks-pain management documented as of this encounter (statuses as of 06/30/2022) [facility]05-[facility] History of Past illness Narrative* Problem Noted Date Resolved Date Elevated BP without diagnosis of hypertension 01/14/2022 Type 2 diabetes mellitus wit hout complication, without long-term current use of insulin 03/12/2021 01/14/2022 Rheumatoid arthritis of [facility] with negative rheumatoid factor 05/11/2019 01/14/2022 Overview: Has seen Dr. Buck. Cannot tolerate meds Hyperglycemia 05/11/2019 03/12/2021 Overview: Had last hba1c which was stable 04/13 Nausea alone 07/30/2014 07/30/2014 Abdominal pain, epigastric 07/30/201407/30 Chronic back pain 09/17/2021 Overview: Dr. Burks-pain management documented as of this encounter (statuses as of 07/04/2022) [facility] [place] [facility] History of Past illness Narrative* Problem Noted Date Resolved Date Elevated BP without diagnosis of hypertension 01/14/2022 Type 2 diabetes mellitus wit hout complication, without long-term current use of insulin 03/12/2021 01/14/2022 Rheumatoid arthritis of [facility] with negative rheumatoid factor 05/11/2019 01/14/2022 Overview: Has seen Dr. Buck. Cannot tolerate meds Hyperglycemia 05/11/2019 03/12/2021 Overview: Had last hba1c which was stable 04/13 Nausea alone 07/30/2014 07/30/2014 Abdominal pain, epigastric 07/30/201407/30 Chronic back pain 09/17/2021 Overview: Dr. Burks-pain management documented as of this encounter (statuses as of 07/28/2022) [facility] [place] [facility] History of Past illness Narrative* Problem Noted Date Resolved Date Elevated BP without diagnosis of hypertension 01/14/2022 Type 2 diabetes mellitus wit hout complication, without long-term current use of insulin 03/12/2021 01/14/2022 Rheumatoid arthritis of [facility] with negative rheumatoid factor 05/11/2019 01/14/2022 Overview: Has seen Dr. Buck. Cannot tolerate meds Hyperglycemia 05/11/2019 03/12/2021 Overview: Had last hba1c which was stable 04/13 Nausea alone 07/30/2014 07/30/2014 Abdominal pain, epigastric 07/30/201407/30 Chronic back pain 09/17/2021 Overview: Dr. Burks-pain management documented as of this encounter (statuses as of 08/08/2022) [facility] [place] [facility] History of Past illness Narrative* Problem Noted Date Resolved Date Elevated BP without diagnosis of hypertension 01/14/2022 Type 2 diabetes mellitus wit hout complication, without long-term current use of insulin 03/12/2021 01/14/2022 Rheumatoid arthritis of [facility] with negative rheumatoid factor 05/11/2019 01/14/2022 Overview: Has seen Dr. Buck. Cannot tolerate meds Hyperglycemia 05/11/2019 03/12/2021 Overview: Had last hba1c which was stable 04/13 Nausea alone 07/30/2014 07/30/2014 Abdominal pain, epigastric 07/30/201407/30 Chronic back pain 09/17/2021 Overview: Dr. Burks-pain management documented as of this encounter (statuses as of 08/16/2022) [facility] [place] [facility] History of Past illness Narrative* Problem Noted Date Resolved Date Elevated BP without diagnosis of hypertension 01/14/2022 Type 2 diabetes mellitus wit hout complication, without long-term current use of insulin 03/12/2021 01/14/2022 Rheumatoid arthritis of [facility] with negative rheumatoid factor 05/11/2019 01/14/2022 Overview: Has seen Dr. Buck. Cannot tolerate meds Hyperglycemia 05/11/2019 03/12/2021 Overview: Had last hba1c which was stable 04/13 Nausea alone 07/30/2014 07/30/2014 Abdominal pain, epigastric 07/30/201407/30 Chronic back pain 09/17/2021 Overview: Dr. Burks-pain management documented as of this encounter (statuses as of 08/17/2022) [facility] [place] [facility] History of Past illness Narrative* Problem Noted Date Resolved Date Elevated BP without diagnosis of hypertension 01/14/2022 Type 2 diabetes mellitus wit hout complication, without long-term current use of insulin 03/12/2021 01/14/2022 Rheumatoid arthritis of [facility] with negative rheumatoid factor 05/11/2019 01/14/2022 Overview: Has seen Dr. Buck. Cannot tolerate meds Hyperglycemia 05/11/2019 03/12/2021 Overview: Had last hba1c which was stable 04/13 Nausea alone 07/30/2014 07/30/2014 Abdominal pain, epigastric 07/30/201407/30 Chronic back pain 09/17/2021 Overview: Dr. Burks-pain management documented as of this encounter (statuses as of 08/19/2022) [facility] [place] History of Past illness Narrative* Problem Noted Date Resolved Date Elevated BP without diagnosis of hypertension 01/14/2022 Type 2 diabetes mellitus wit hout complication, without long-term current use of insulin 03/12/2021 01/14/2022 Rheumatoid arthritis of [facility] with negative rheumatoid factor 05/11/2019 01/14/2022 Overview: Has seen Dr. Buck. Cannot tolerate meds Hyperglycemia 05/11/2019 03/12/2021 Overview: Had last hba1c which was stable 04/13 Nausea alone 07/30/2014 07/30/2014 Abdominal pain, epigastric 07/30/201407/30 Chronic back pain 09/17/2021 Overview: Dr. Burks-pain management documented as of this encounter (statuses as of 08/21/2022) [facility] [place] History of Past illness Narrative* Problem Noted Date Resolved Date Elevated BP without diagnosis of hypertension 01/14/2022 Type 2 diabetes mellitus wit hout complication, without long-term current use of insulin 03/12/2021 01/14/2022 Rheumatoid arthritis of [facility] with negative rheumatoid factor 05/11/2019 01/14/2022 Overview: Has seen Dr. Buck. Cannot tolerate meds Hyperglycemia 05/11/2019 03/12/2021 Overview: Had last hba1c which was stable 04/13 Nausea alone 07/30/2014 07/30/2014 Abdominal pain, epigastric 07/30/201407/30 Chronic back pain 09/17/2021 Overview: Dr. Burks-pain management documented as of this encounter (statuses as of 08/25/2022) [facility] [place] History of Past illness Narrative* Problem Noted Date Resolved Date Elevated BP without diagnosis of hypertension 01/14/2022 Type 2 diabetes mellitus wit hout complication, without long-term current use of insulin 03/12/2021 01/14/2022 Rheumatoid arthritis of [facility] with negative rheumatoid factor 05/11/2019 01/14/2022 Overview: Has seen Dr. Buck. Cannot tolerate meds Hyperglycemia 05/11/2019 03/12/2021 Overview: Had last hba1c which was stable 04/13 Nausea alone 07/30/2014 07/30/2014 Abdominal pain, epigastric 07/30/201407/30 Chronic back pain 09/17/2021 Overview: Dr. Burks-pain management documented as of this encounter (statuses as of 09/02/2022) [facility] [place] History of Past illness Narrative* Problem Noted Date Resolved Date Elevated BP without diagnosis of hypertension 01/14/2022 Type 2 diabetes mellitus wit hout complication, without long-term current use of insulin 03/12/2021 01/14/2022 Rheumatoid arthritis of [facility] with negative rheumatoid factor 05/11/2019 01/14/2022 Overview: Has seen Dr. Buck. Cannot tolerate meds Hyperglycemia 05/11/2019 03/12/2021 Overview: Had last hba1c which was stable 04/13 Nausea alone 07/30/2014 07/30/2014 Abdominal pain, epigastric 07/30/201407/30 Chronic back pain 09/17/2021 Overview: Dr. Burks-pain management documented as of this encounter (statuses as of 10/08/2022) [facility] [place] [facility] History of Past illness Narrative* Problem Noted Date Resolved Date Elevated BP without diagnosis of hypertension 01/14/2022 Type 2 diabetes mellitus wit hout complication, without long-term current use of insulin 03/12/2021 01/14/2022 Rheumatoid arthritis of [facility] with negative rheumatoid factor 05/11/2019 01/14/2022 Overview: Has seen Dr. Buck. Cannot tolerate meds Hyperglycemia 05/11/2019 03/12/2021 Overview: Had last hba1c which was stable 04/13 Nausea alone 07/30/2014 07/30/2014 Abdominal pain, epigastric 07/30/201407/30 Chronic back pain 09/17/2021 Overview: Dr. Burks-pain management documented as of this encounter (statuses as of 10/08/2022) [facility] [place] History of Past illness Narrative* Problem Noted Date Resolved Date Elevated BP without diagnosis of hypertension 01/14/2022 Type 2 diabetes mellitus wit hout complication, without long-term current use of insulin 03/12/2021 01/14/2022 Rheumatoid arthritis of [facility] with negative rheumatoid factor 05/11/2019 01/14/2022 Overview: Has seen Dr. Buck. Cannot tolerate meds Hyperglycemia 05/11/2019 03/12/2021 Overview: Had last hba1c which was stable 04/13 Nausea alone 07/30/2014 07/30/2014 Abdominal pain, epigastric 07/30/201407/30 Chronic back pain 09/17/2021 Overview: Dr. Burks-pain management documented as of this encounter (statuses as of 10/19/2022) [facility] [place] History of Past illness Narrative* Problem Noted Date Resolved Date Elevated BP without diagnosis of hypertension 01/14/2022 Hyperglycemia 05/11/2019 03/12/2021 Overview: Had last hba1c which was stable 04/13 Nausea alone 07/30/2014 07/30/2014 Abdominal pain, epigastric 07/30/201407/30 Chronic back pain 09/17/2021 Overview: Dr. Pennington management documented as of this encounter (statuses as of 10/25/2022) [facility] [place] [facility] History of Past illness Narrative* Problem Noted Date Resolved Date Elevated BP without diagnosis of hypertension 01/14/2022 Hyperglycemia 05/11/2019 03/12/2021 Overview: Had last hba1c which was stable 04/13 Nausea alone 07/30/2014 07/30/2014 Abdominal pain, epigastric 07/30/201407/30 Chronic back pain 09/17/2021 Overview: Dr. Pennington management documented as of this encounter (statuses as of 11/03/2022) [facility] [place] [facility]-25[facility] History of Past illness Narrative* Problem Noted Date Diagnosed Date Resolved Date Elevated BP without diagnosis of hypertension 11/18/19 22 01/14/2022 Hyperglycemia 05/11/2019 03/12/2021 Overview: Had last hba1c which was stable 04/13 Nausea alone 07/30/2014 07/30/2014 Abdominal pain, epigastric 07/30/2014 0 07/30/2014 Chronic back pain 09/17/2021 Overview: Dr. Pennington management documented as of this encounter (statuses as of 01/05/2023) [facility] [place] [facility] History of Past illness Narrative* Problem Noted Date Diagnosed Date Resolved Date Elevated BP without diagnosis of hypertension 11/18/19 22 01/14/2022 Hyperglycemia 05/11/2019 03/12/2021 Overview: Had last hba1c which was stable 04/13 Nausea alone 07/30/2014 07/30/2014 Abdominal pain, epigastric 07/30/2014 0 07/30/2014 Chronic back pain 09/17/2021 Overview: Dr. Basalli-pain management documented as of this encounter (statuses as of 01/05/2023) [facility] [place] [facility] History of Past illness Narrative* Problem Noted Date Diagnosed Date Resolved Date Elevated BP without diagnosis of hypertension 11/18/19 22 01/14/2022 Hyperglycemia 05/11/2019 03/12/2021 Overview: Had last hba1c which was stable 04/13 Nausea alone 07/30/2014 07/30/2014 Abdominal pain, epigastric 07/30/2014 0 07/30/2014 Chronic back pain 09/17/2021 Overview: Dr. Reederpain management documented as of this encounter (statuses as of 04/29/2023) [facility] History of Past illness Narrative* Problem Noted Date Diagnosed Date Resolved Date Elevated BP without diagnosis of hypertension 11/18/19 22 01/14/2022 Hyperglycemia 05/11/2019 03/12/2021 Overview: Had last hba1c which was stable 04/13 Nausea alone 07/30/2014 07/30/2014 Abdominal pain, epigastric 07/30/2014 0 07/30/2014 Chronic back pain 09/17/2021 Overview: Dr. Burks-pain management documented as of this encounter (statuses as of 04/30/2023) [facility] [place] [facility] History of Past illness Narrative* Problem Noted Date Diagnosed Date Resolved Date Elevated BP without diagnosis of hypertension 11/18/19 22 01/14/2022 Hyperglycemia 05/11/2019 03/12/2021 Overview: Had last hba1c which was stable 04/13 Nausea alone 07/30/2014 07/30/2014 Abdominal pain, epigastric 07/30/2014 0 07/30/2014 Chronic back pain 09/17/2021 Overview: Dr. Reederpain management documented as of this encounter (statuses as of 04/30/2023) [facility] [place] History of Past illness Narrative* Problem Noted Date Diagnosed Date Resolved Date Elevated BP without diagnosis of hypertension 11/18/19 22 01/14/2022 Hyperglycemia 05/11/2019 03/12/2021 Overview: Had last hba1c which was stable 04/13 Nausea alone 07/30/2014 07/30/2014 Abdominal pain, epigastric 07/30/2014 0 07/30/2014 Chronic back pain 09/17/2021 Overview: Dr. Burks-pain management documented as of this encounter (statuses as of 05/09/2023) [facility]04-06-2022 Miscellaneous Notes* Telephone Encounter - Sharon Rivera [...] needs seen * Telephone Encounter - Makenna Crowder RN - 09/29/2021 8:15 AM EDT Patient [...] is going to pass out. Protocols used: [id number] [facility] [place] Miscellaneous Notes* Telephone Encounter - Makenna Crowder RN - 09/29/2021 8:23 AM EDT Opened in Error [facility] [place] History of Present illness Narrative* Mikayla Strange [...] for this visit. ALLERGIES: ALLERGIES Allergen Reactions Vaibhav [Fexofenadi* Intolerance Augmentin [Amoxicil* Intolerance Bentyl [Dicyclomine* [...] complication, without long-term current use of insulin ([facility]) - ICD9: 250.00, ICD10: E11.9 (primary diagnosis) [...] prn. Medical Decision Making [facility] [place] History of Past illness Narrative* Problem Noted Date Resolved Date Hyperglycemia 05/11/2019 03/12/2021 Overview: Had last hba1c which was stable 04/13 Nausea alone 07/30/2014 07/30/2014 Abdominal pain, epigastric 07/30/201407/30 Chronic back pain 09/17/2021 Overview: Dr. Burks-pain management documented as of this encounter (statuses as of 09/17/2021) [facility] History of Past illness Narrative* Problem Noted Date Resolved Date Hyperglycemia 05/11/2019 03/12/2021 Overview: Had last hba1c which was stable 04/13 Nausea alone 07/30/2014 07/30/2014 Abdominal pain, epigastric 07/30/201407/30 Chronic back pain 09/17/2021 Overview: Dr. Burks-pain management documented as of this encounter (statuses as of 09/29/2021) [facility] History of Past illness Narrative* Problem Noted Date Resolved Date Hyperglycemia 05/11/2019 03/12/2021 Overview: Had last hba1c which was stable 04/13 Nausea alone 07/30/2014 07/30/2014 Abdominal pain, epigastric 07/30/201407/30 Chronic back pain 09/17/2021 Overview: Dr. Burks-pain management documented as of this encounter (statuses as of 11/17/2021) [facility] History of Past illness Narrative* Problem Noted Date Resolved Date Hyperglycemia 05/11/2019 03/12/2021 Overview: Had last hba1c which was stable 04/13 Nausea alone 07/30/2014 07/30/2014 Abdominal pain, epigastric 07/30/201407/30 Chronic back pain 09/17/2021 Overview: Dr. Burks-pain management documented as of this encounter (statuses as of 11/19/2021) [facility] History of Past illness Narrative* Problem Noted Date Resolved Date Hyperglycemia 05/11/2019 03/12/2021 Overview: Had last hba1c which was stable 04/13 Nausea alone 07/30/2014 07/30/2014 Abdominal pain, epigastric 07/30/201407/30 Chronic back pain 09/17/2021 Overview: Dr. Burks-pain management documented as of this encounter (statuses as of 11/24/2021) [facility] History of Past illness Narrative* Problem Noted Date Resolved Date Hyperglycemia 05/11/2019 03/12/2021 Overview: Had last hba1c which was stable 04/13 Nausea alone 07/30/2014 07/30/2014 Abdominal pain, epigastric 07/30/201407/30 Chronic back pain 09/17/2021 Overview: Dr. Burks-pain management documented as of this encounter (statuses as of 12/23/2021) [facility] History of Past illness Narrative* Problem Noted Date Resolved Date Hyperglycemia 05/11/2019 03/12/2021 Overview: Had last hba1c which was stable 04/13 Nausea alone 07/30/2014 07/30/2014 Abdominal pain, epigastric 07/30/201407/30 Chronic back pain 09/17/2021 Overview: Dr. Reederpain management documented as of this encounter (statuses as of 12/24/2021) [facility] History of Past illness Narrative* Problem Noted Date Resolved Date Hyperglycemia 05/11/2019 03/12/2021 Overview: Had last hba1c which was stable 04/13 Nausea alone 07/30/2014 07/30/2014 Abdominal pain, epigastric 07/30/201407/30 Chronic back pain 09/17/2021 Overview: Dr. Reederpain management documented as of this encounter (statuses as of 12/24/2021) [facility] History of Past illness Narrative* Problem Noted Date Resolved Date Hyperglycemia 05/11/2019 03/12/2021 Overview: Had last hba1c which was stable 04/13 Nausea alone 07/30/2014 07/30/2014 Abdominal pain, epigastric 07/30/201407/30 Chronic back pain 09/17/2021 Overview: Dr. Burks-pain management documented as of this encounter (statuses as of 12/30/2021) [facility] [place] [facility] Author [facility]. Muniz [facility] August 26, 2022 1:45pm Note Date/Time August 26, 2022 1:45 pm [facility] [address] [place] [address] Instructions for Home/Discharge Instructions 08/26/22 1344 MR#: [id number] Acct: [id number] Name: ZACKERY NUNEZ Rep #:[id number] : [id number] 62 From: Noe paul DPM PCP: Dr. Mikayla Strange MD Status:REG S DC Discharge Instructions Diet Discharge Diet: No restrictions Activity Discharge Activity: Return to Normal Activity Return to work on:: 08/29/22 May shower in (days): 0 May resume sexual activity in: No Restrictions Weight Bearing Status: Weight bearing as tolerated Dressing / Incision Additional Dressing/Incision Instructions:: apply cream to left foot to help resolve rash of left foot Follow Up Care Test Results: Test results from this visit will be discussed in further detail at your follow- up appointment, if applicable. Discharge Plan Admission Primary Reason for Your Visit: injection of left foot Attending Provider: Noe Muniz Primary Care Provider: Mikayla Strange Discharge Orders/Prescriptions Prescriptions: No Action omeprazole 20 mg capsule,delayed release(DR/EC) 40 mg PO DAILY Label Comments: TAKE 1 CAPSULE BY MOUTH TWICE DAILY. TAKE WITH NAPROXEN buprenorphine 15 mcg/hour patch weekly 1 patch TOPICAL QWEEK Rx Instructions: CHANGED ON MONDAY Rinvoq 15 mg tablet extended release 24 hr 15 mg PO DAILY gabapentin 300 mg capsule 300 mg PO .four times per day amitriptyline 10 mg tablet 10 mg PO QHS cyclobenzaprine 10 MG tablet 10 mg PO TID PRN (Reason: Spasms) Label Comments: muscle relaxer citalopram 40 MG tablet 60 mg PO DAILY Label Comments: depression atorvastatin 10 MG tablet 10 mg PO QHS Label Comments: cholesterol latanoprost 1 DROP bottle 1 drp EACH EYE QHS Label Comments: glaucoma prednisone 10 MG tablet 10 mg PO PRN PRN (Reason: flare up) Label Comments: take for 3-5 days RA has not taken for several months Rx Instructions: take for 3-5 days for RA flare sumatriptan succinate 50 MG tablet 50 mg PO .X1 PRN PRN (Reason: Headache) Label Comments: RA promethazine 25 MG suppository 25 mg PO PRN PRN (Reason: Nausea) Label Comments: nausea hyoscyamine sulfate 0.125 MG tablet, sublingual 0.125 mg SL Q4H PRN PRN (Reason: Nausea) oxycodone-acetaminophen 1 EACH tablet 1 tab PO TID buspirone 30 MG tablet 30 mg PO BID lisinopril 10 mg tablet 10 mg PO DAILY metformin 500 mg tablet extended release 24 hr 500 mg PO DAILY Referrals / Follow Up: Mikayla Strange MD [Primary Care Provider] - Disposition Disposition (needs filled in before D/C Order can be placed): Home, Self Care 08/26/22 1345<Electronically signed by Noe Muniz DPM>Noe Muniz DPM CC: Dr. Mikayla Strange MD ~ Signed [facility] Work Phone: Evaluation note* Diagnosis Type 2 diabetes mellitus without complication, without long-term current use of insulin (HCC)- Primary Irritable bowel syndrome with constipation Irritable bowel syndrome Rheumatoid arthritis of multiple sites with negative rheumatoid factor (HCC) DDD (degenerative disc disease), lumbar Degeneration of lumbar or lumbosacral intervertebral disc Other hyperlipidemia Panic disorder Panic disorder without agoraphobia Migraine without aura, intractable, without status migrainosus documented in this encounter [facility] noteNo assessment information availableWProMedica [facility] Work Phone: Evaluation note* Diagnosis Nausea- Primary Nausea alone Type 2 diabetes mellitus without complication, without long-term current use of insulin (HCC) Panic disorder Panic disorder without agoraphobia Migraine without aura, intractable, without status migrainosus Other hyperlipidemia Elevated BP without diagnosis of hypertension [facility] this encounter [facility]* Diagnosis Migraine without aura, intractable, without status migrainosus Nausea Nausea alone documented in this encounter [facility]* Diagnosis Discoloration of skin of finger- Primary Dyschromia, unspecified SOB (shortness of breath) Shortness of breath documented in this encounter [facility]* Diagnosis Pes planus of both feet- Primary Foot pain, left Pain in limb Closed fracture of left foot with nonunion, subsequent encounter Hammer toes of both feet Acquired hallux valgus, unspecified laterality Other diabetic neurological complication associated with type 2 diabetes mellitus (HCC) Hyperkeratosis Acquired keratoderma documented in this encounter [facility]* Diagnosis Primary hypertension Unspecified essential hypertension [facility] this [facility]* Diagnosis Posterior tibial tendon dysfunction- Primary Other disorders of synovium, tendon, and bursa Pes planus of both feet 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 Unspecified arthropathy, ankle and foot [facility] Diagnosis Hypertension, unspecified type Irritable bowel syndrome with constipation Irritable bowel syndrome documented in this encounter [facility] note* Diagnosis Renal insufficiency- Primary Unspecified disorder of kidney and ureter Leukocytosis, unspecified type [facility] Diagnosis Change in bowel habits Other symptoms involving digestive system Nausea Nausea alone [facility] this [facility]* Diagnosis Leukocytosis, unspecified type- Primary [facility]* Diagnosis Screening breast examination Breast screening, unspecified documented [facility] this [facility]* Diagnosis Change in bowel habits- Primary Other symptoms involving digestive system [facility]* Diagnosis Pes planus of both feet- Primary 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 Unspecified arthropathy, ankle and foot Posterior tibial tendon dysfunction Other disorders of synovium, tendon, and bursa documented [facility] this [facility]* Diagnosis Arthritis of foot- Primary Unspecified arthropathy, ankle and foot Posterior tibial tendon dysfunction Other disorders of synovium, tendon, and bursa Other diabetic neurological complication associated with type 2 diabetes mellitus (HCC) documented [facility]* Diagnosis Irritable bowel syndrome with constipation Irritable bowel syndrome documented in this encounter [facility] note* Diagnosis Arthritis of foot- Primary Unspecified arthropathy, ankle and foot 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, subsequent encounter documented in this [facility]* Diagnosis Onset Date Resolution Status Arthritis of foot acute [facility] Work Phone: Evaluation note* Diagnosis Left foot pain- Primary Pain in limb documented in this [facility]* Diagnosis Type 2 diabetes mellitus without complication, without long-term current use of insulin ([facility]) documented in this encounter [facility] note* Diagnosis Primary hypertension- Primary Unspecified essential hypertension Obesity, Class III, BMI 40-49.9 (morbid obesity) (HCC) Morbid obesity Other hyperlipidemia Type 2 diabetes mellitus without complication, without long-term current use of insulin (HCC) DDD (degenerative disc disease), lumbar Degeneration of lumbar or lumbosacral intervertebral disc Rheumatoid arthritis, involving unspecified site, unspecified whether rheumatoid factor present (HCC) Stage 3 chronic kidney disease, unspecified whether stage 3a or 3b CKD ([facility]) Anemia, unspecified type [facility] Diagnosis Arthritis of foot- Primary Unspecified arthropathy, ankle and foot 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, subsequent encounter Left foot pain Pain in limb [facility]* Diagnosis Migraine without aura, intractable, without status migrainosus Nausea Nausea alone Irritable bowel syndrome with constipation Irritable bowel syndrome [facility]* Diagnosis Panic disorder Panic disorder without agoraphobia Migraine without aura, intractable, without status migrainosus Nausea Nausea alone Irritable bowel syndrome with constipation Irritable bowel syndrome [facility]* Diagnosis Hypertension, unspecified type [facility] Diagnosis Arthritis of foot Unspecified arthropathy, ankle and foot 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, subsequent encounter [facility] Diagnosis Left foot pain Pain in limb [facility] Diagnosis Diarrhea, unspecified type- Primary Change in bowel habits Other symptoms involving digestive system [facility]* Diagnosis Irritable bowel syndrome with constipation Irritable bowel syndrome [facility] Diagnosis Primary hypertension- Primary Unspecified essential [...] Other screening mammogram documented in this [facility]* Diagnosis Encounter for screening mammogram for malignant neoplasm of breast Other screening mammogram [facility] this [facility]* Diagnosis Irritable bowel syndrome with constipation Irritable bowel syndrome documented [facility] this [facility]* Diagnosis Panic disorder Panic disorder without agoraphobia Hypertension, unspecified type Migraine without aura, intractable, without status migrainosus Nausea Nausea alone documented in this [facility]* Diagnosis Type 2 diabetes mellitus without complication, without long-term current use of insulin (HCC) documented [facility] this [facility]* Diagnosis Fibromyalgia- Primary Mylagia and myositis, unspecified Type 2 diabetes mellitus without complication, without long-term current use of insulin (HCC) Irritable bowel syndrome with constipation Irritable bowel syndrome Migraine without aura, intractable, without status migrainosus Primary hypertension Unspecified essential hypertension Other hyperlipidemia Stage 3 chronic kidney disease, unspecified whether stage 3a or 3b CKD (HCC) Rheumatoid arthritis, involving unspecified site, unspecified whether rheumatoid factor present ([facility]) DDD (degenerative disc disease), lumbar Degeneration of lumbar or lumbosacral intervertebral disc Weight loss Loss of weight documented [facility] this [facility]* Diagnosis Malnutrition of mild degree (HCC)- Primary Malnutrition of mild degree Weight loss Loss of weight Type 2 diabetes mellitus without complication, without long-term current use of insulin ([facility]) documented in this encounter [facility]* Diagnosis Anemia, unspecified type- Primary documented in this [facility]* Diagnosis Panic disorder Panic disorder without agoraphobia documented in this [facility]* Diagnosis Urinary tract infection with hematuria, site unspecified- Primary Encounter for screening mammogram for malignant neoplasm of breast Other screening mammogram documented [facility] this [facility]* Diagnosis Acute cystitis with hematuria- Primary Acute cystitis documented in this [facility]* Diagnosis Dysuria- Primary Microscopic hematuria documented [facility] this [facility]* Diagnosis Pes planus of both feet 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 Unspecified arthropathy, ankle and foot Posterior tibial tendon dysfunction Other disorders of synovium, tendon, and bursa [facility]* Diagnosis Chest pain, atypical Other chest pain Foot pain, left Pain in limb documented in this encounter [facility] note* Diagnosis Atrophic vaginitis- Primary Postmenopausal atrophic vaginitis Dysuria Microscopic hematuria documented in this encounter [facility] note* Diagnosis Procedure, test, or exam not indicated- Primary Procedure not carried out for other reasons documented in this encounter [facility] note* Diagnosis 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, subsequent encounter- Primary 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, subsequent encounter documented in this encounter [facility] note* Diagnosis 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, subsequent encounter- Primary documented in this encounter [facility] note* Diagnosis Irritable bowel syndrome with constipation Irritable bowel syndrome documented in this encounter [facility] note* Diagnosis Irritable bowel syndrome with constipation Irritable bowel syndrome documented in this encounter [facility] note* Diagnosis Dysuria- Primary Chronic insomnia Insomnia, unspecified Fibromyalgia Mylagia and myositis, unspecified Other hyperlipidemia Primary hypertension Unspecified essential hypertension Rheumatoid arthritis, involving unspecified site, unspecified whether rheumatoid factor present (HCC) Stage 3 chronic kidney disease, unspecified whether stage 3a or 3b CKD ([facility]) Obesity, Class I, BMI 30-34.9 Obesity, unspecified Type 2 diabetes mellitus without complication, without long-term current use of insulin (HCC) Other diabetic neurological complication associated with type 2 diabetes mellitus (HCC) documented in this encounter [facility] note* Diagnosis Fracture Closed fracture of unspecified bone Screening for osteoporosis Special screening for osteoporosis documented in this encounter [facility] note* Diagnosis 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, subsequent encounter- Primary documented in [facility]* Diagnosis Fracture Risk Assessment Score (FRAX) indicating greater than 20% risk for major osteoporosis-related fracture- Primary documented in this encounter [facility] note* Diagnosis 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, subsequent encounter- Primary documented [facility] Author Dr. Muniz [facility] August 26, 2022 1:43pm Note Date/Time August 26, 2022 12:5 7pm [facility] Medical Records Department [address] [place] [address] History & Physical Exam 08/26/22 1254 MR#: [id number] Acct: [id number] Name: ZACKERY NUNEZ Rep #:[id number] : [id number] 62 From: Noe paul DPM PCP: Dr. Mikayla Strange MD Status:REG S DC Location: [place] [address] HPI - General General Date of Admission: 08/26/22 Date of Service: 08/26/22 Chief Complaint: left foot pain HPI Narrative ZACKERY NUNEZ, is a 62 F who presents with complaint of left foot pain, most severe along the navicular cuneiform joint. she has been seen by me in my outpatient clinic. she has xrays that show severe arthritis. she was given order for orthotics but has yet to get. she has been using boot and this does help although she has noticed it is starting to rub on the side of her foot. she denies any open wounds currently [facility] Medical History (Updated 08/26/22 @ 13:[address] Noe Muniz, GENOV[place]AM) Back pain Bulging discs Chest pain Diabetes Fibromyalgia Gastric reflux Glaucoma Heartburn High cholesterol History of edema History of pain when walking History of rheumatic fever History of steroid therapy History of stress test IBS (irritable bowel syndrome) Injury of head and neck Leg cramps Low iron Marijuana use Migraine headache Non-smoker Post-menopausal Rheumatoid arthritis Walker as ambulation aid Wears glasses Home Medications atorvastatin 10 mg tablet 10 mg PO QHS cholestorol 05/14/14 [History Last Taken 08/25/22] citalopram 40 mg tablet 60 mg PO DAILY anxiety 05/14/14 [History Last Taken 08/25/22] cyclobenzaprine 10 mg tablet 10 mg PO TID PRN Spasms 05/14/14 [History Last Taken 08/25/22] latanoprost 0.005 % eye drops 1 drp EACH EYE QHS glaucoma 05/14/14 [History Last Taken 08/25/22] prednisone 10 mg tablet 10 mg PO PRN PRN flare up 05/14/14 [History Last Taken 08/25/22] sumatriptan succinate 50 mg tablet 50 mg PO .X1 PRN PRN Headache 05/14/14 [History Last Taken 08/25/22] promethazine 25 mg rectal suppository 25 mg PO PRN PRN Nausea 12/17/14 [History Last Taken 08/25/22] hyoscyamine sulfate 0.125 mg sublingual tablet 0.125 mg SL Q4H PRN PRN Nausea 04/20/16 [History Last Taken 08/25/22] oxycodone-acetaminophen 7.5 mg-325 mg tablet 1 tab PO TID pain 04/20/16 [History Last Taken 08/25/22] buspirone 30 mg tablet 30 mg PO BID anxiety 12/20/17 [History Last Taken 08/25/22] amitriptyline 10 mg tablet 10 mg PO QHS 03/25/20 [History Last Taken 08/25/22] buprenorphine 15 mcg/hour weekly transdermal patch 1 patch topical QWEEK 03/25/20 [History Last Taken 08/25/22] gabapentin 300 mg capsule 300 mg PO .four times per day 03/25/20 [History Last Taken 08/25/22] omeprazole 20 mg capsule,delayed release 40 mg PO DAILY 03/25/20 [History Last Taken 08/25/22] upadacitinib 15 mg tablet,extended release 24 hr (Rinvoq) 15 mg PO DAILY 03/25/20 [History Last Taken 08/25/22] lisinopril 10 mg tablet 10 mg PO DAILY 08/18/22 [History Last Taken 08/26/22] metformin 500 mg tablet,extended release 24 hr 500 mg PO DAILY 08/18/22 [History Last Taken 08/25/22] Allergy/AdvReac Type Severity Reaction Status Date / Time adalimumab [From Humira] Allergy Vomiting Verified 08/26/22 12:08 cefaclor [From Ceclor] Allergy Unknown Verified 08/26/22 12:08 celecoxib [From Celebrex] Allergy Itching Verified 08/26/22 12:08 doxepin [Doxepin] Allergy Unknown Verified 08/26/22 12:08 doxycycline calcium Allergy Unknown Verified 08/26/22 12:08 [From Vibramycin] doxycycline hyclate Allergy Unknown Verified 08/26/22 12:08 [From Vibramycin] doxycycline monohydrate Allergy Unknown Verified 08/26/22 12:08 [From Vibramycin] hydrocodone bitartrate Allergy Unknown Verified 08/26/22 12:08 [From Vicodin] hydroxychloroquine Allergy Shortness Verified 08/26/22 12:08 [Hydroxychloroquine] of breath leflunomide [From Arava] Allergy Other Verified 08/26/22 12:08 prochlorperazine Allergy Shortness Verified 08/26/22 12:08 [From Compazine] of breath prochlorperazine edisylate Allergy Shortness Verified 08/26/22 12:08 [From Compazine] of breath prochlorperazine maleate Allergy Shortness Verified 08/26/22 12:08 [From Compazine] of breath sulfamethoxazole Allergy Unknown Verified 08/26/22 12:08 [From Septra] terfenadine [From Seldane] Allergy Unknown Verified 08/26/22 12:08 trazodone Allergy Other Verified 08/26/22 12:08 trimethoprim [From Septra] Allergy Unknown Verified 08/26/22 12:08 clarithromycin [From Biaxin] AdvReac Vomiting Verified 08/26/22 12:08 colestipol AdvReac Other Verified 08/26/22 12:08 dicyclomine HCl [From Bentyl] AdvReac Nausea/Vom/ Verified 08/26/22 12:08 Diarrhea doxycycline [From Vibramycin] AdvReac Nausea Verified 08/26/22 12:08 fentanyl AdvReac Nausea Verified 08/26/22 12:08 fexofenadine HCl AdvReac Other Verified 08/26/22 12:08 [From Vaibhav] golimumab [From Simponi] AdvReac Other Verified 08/26/22 12:08 hydrocodone AdvReac Vomiting Verified 08/26/22 12:08 hydroxychloroquine sulfate AdvReac Nausea Verified 08/26/22 12:08 [From Plaquenil] levofloxacin [From Levaquin] AdvReac Other Verified 08/26/22 12:08 methotrexate AdvReac Upset Verified 08/26/22 12:08 Stomach Sulfa (Sulfonamide AdvReac Vomiting Verified 08/26/22 12:08 Antibiotics) TRINILLIN Allergy Unknown Uncoded 08/26/22 12:08 Family History (Updated 03/25/20 @ 13:12 by Aster Zafar) Mother Myocardial infarction Father Myocardial infarction Cancer Sister H/O Sjogren's disease Surgical History (Updated 03/25/20 @ 13:40 by Aster Zafar) H/O tubal ligation History of appendectomy History of arthroscopic knee surgery History of cholecystectomy Total knee replacement status Social History (Updated 05/27/20 @ 13:[address] Rajinder Pantoja, DO) household members: spouse housing: house pets and animals: Yes Smoking Status: Never smoker alcohol intake: never what type of physical activity do you participate in: none do you feel safe at home: Yes Vital Signs Vital Signs Vital Signs: 08/26/22 12:02 08/26/22 12:02 Temperature 98.8 F Temperature Source Temporal Pulse Rate 89 Respiratory Rate 17 Respiratory Pattern Normal Blood Pressure 106/63 Blood Pressure Mean 77 Blood Pressure Source Monitor Blood Pressure Position Semi-Fowlers Blood Pressure Location Left Arm Pulse Ox 98 Oxygen Delivery Method Room Air Weight Weight: 110.7 kg Body Mass Index (BMI) 40.6 Physical Exam Narrative patient is alert and orientated x 3. she does not appear in any distress. Vascular: DP and PT pulses are palpable to left foot. CFT is brisk. Skin temperature is warm to warm. Derm: no open sores are noted. there is pressure irritation along the lateral aspet of left 5th metatarsal but no open sores or signs of infection are present m/s: there is pain to palpation of the left navicular cuneiform joint. the painis along the dorsal medial and dorsal aspect of navicular cun joint. xrays reviewed from [facility] demonstrate midfoot arthirtis most severe at navicular cun joint. Const alert, oriented x3 and no apparent distress General Appearance: cooperative, comfortable and well kempt Orientation / Consciousness: awake and oriented to person Assessment & Plan Assessment/Plan (1) Arthritis of foot: PLAN: patient has been examined and we have discussed her pain in left midfoot. she has been treated with boot, inserts that have been ordered but she has yet to make an appoirntment for fitting. she does take tylenol but continues to have pain. I discussed proceeding with injection. an injection may help to lessen her discomfort. an injection does carry risk of infection, bleeding, injury to cartilage, injury to ligament, injury to tendon. I discussed various ways of injecting not limited to xray guide vs ultrasounic guide. she has elected to proceed with xray guide. she understands risk. she undertands that this may not resolve her pain. She also understands that she could be at risk of worsening. she consents to proceed with injection fo left navicular cun joint I reviewed past xrays of left foot. she has stable arthritic change, no evidence of charcot. of note, she has noticed the boot is starting to rub on the 5th metatarsal. I see no open sores or signs of infection. she wishes to proceed with injection today.. 08/26/22 1313 <Electronically signed by Noe Muniz DPM> Cosigner Signature (if applicable): CC: ABBIE Muniz; Dr. Mikayla Strange MD~ Signed ADDENDUM by ABBIE Muniz on 08/26/22 at 1343 Addendum Patient was brought to the operating room. Upon entering the room which happensto be brighter than pre-op exam room, I noticed a rash along the left midfoot. I further evaluated this with the lights above the operating table. She has a rash along the dorsal midfoot extending along the tibialis anterior. I expressed my concerns giving an injection to her foot at this time. I do feel that in light of this rash, I feel it is necessary to post-pone injection, placeher on cream and then reschedule. 08/26/22 1343<Electronically signed by Noe Muniz DPM> Cosigner Signature (if applicable): cc: ABBIE Muniz; Dr. Miakyla Strange MD ~* Signed [facility] Work Phone: Hospital Discharge instructions Additional Instructions Implant Used?: [facility] Work Phone: Reason for referral (narrative)* Outpatient Procedure (Routine) - Authorized Specialty Diagnoses / Procedures Referred By Contac t Referred To Contact [facility] Diagnoses Discoloration of skin of finger SOB (shortness of breath) Procedures ECHO ECHO TTHRC R-T 2D W/WOM-MODE COMPL SPEC&COLR D Sayda Carr, [facility] [facility] [employer] [facility] [address] [place] [address] [facility] [address] [place] [address] Referral ID Status Reason Start Date Expiration Date Visits Requested Visits Authorized [id number] Authorized Auto-Generat ed Referral 12/24/2021 12/24/2022 1 1 [facility] for referral (narrative)* Outpatient Procedure (Routine) - Authorized Specialty Diagnoses / Procedures Referred By Contac t Referred To Contact [facility] [place] [place] Diagnoses Nausea Procedures EGD DIAGNOSTIC ESOPHAGOGASTRODUODENOSC OPY TRANSORAL DIAGNOSTIC Gwen Blakely MD [address] [place] [address] [facility] [address] [place] [id number] Referral ID Status Reason Start Date Expiration Date Visits Requested Visits Authorized [id number] Authorized Auto-Generat ed Referral 2 04/11/2023 1 1 * Outpatient Procedure (Routine) - Authorized Specialty Diagnoses / Procedures Referred By Contac t Referred To Contact DIGESTIVE DISEASE [place] Diagnoses Change in bowel habits Procedures COLONOSCOPY DIAGNOSTIC COLONOSCOPY FLX DX W/COLLJ SPEC WHEN PFRMD Gwen Blakely MD [address] [place] [address] [facility] [address] [place] [id number] Referral ID Status Reason Start Date Expiration Date Visits Requested Visits Authorized [id number] Authorized Auto-Generat ed Referral 2 04/11/2023 1 1 [facility] for referral (narrative)* Diagnostic Procedure Only (Routine) - Closed Specialty Diagnoses / Procedures Referred By Contac t Referred To Contact [facility] Diagnoses Screening breast examination Procedures PATSY SCREENING SCREENING MAMMOGRAPHY BI 2-VIEW BREAST INC CAD Mikayla Strange MD [address] [place] [address] [facility] [address] [place] [address] Referral ID Status Reason Start Date Expiration Date V isits Requested Visits Authorized [id number] Closed Auto-Generate d Referral 03/22/2022 04/21/2023 1 1 [facility] for referral (narrative)* Diagnostic Procedure Only (Routine) - Closed Specialty Diagnoses / Procedures Referred By Contac t Referred To Contact XR IMAGING Diagnoses Pes planus of both feet 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 Posterior tibial tendon dysfunction Procedures XR FOOT GENERAL 3V AP/LAT/OBL LEFT RADEX FOOT COMPLETE MINIMUM 3 VIEWS Noe Muniz[address] [place] [address] Xr Imaging Referral ID Status Reason Start Date Expiration Date V isits Requested Visits Authorized [id number] Closed Auto-Generate d Referral 07/04/2022 08/03/2023 1 1 [facility] for referral (narrative)* Diagnostic Procedure Only (Routine) - Closed Specialty Diagnoses / Procedures Referred By Contac t Referred To Contact XR IMAGING Diagnoses 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, subsequent encounter Procedures XR FOOT GENERAL 3V AP/LAT/OBL LEFT RADEX FOOT COMPLETE MINIMUM 3 VIEWS Noe Muniz[address] [place] [address] Xr Imaging Referral ID Status Reason Start Date Expiration Date V isits Requested Visits Authorized [id number] Closed Auto-Generate d Referral 08/18/2022 09/17/2023 1 1 [facility] for referral (narrative)* Diagnostic Procedure Only (Routine) - Closed Specialty Diagnoses / Procedures Referred By Contac t Referred To Contact XR IMAGING Diagnoses 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, subsequent encounter Procedures XR FOOT GENERAL 3V AP/LAT/OBL LEFT RADEX FOOT COMPLETE MINIMUM 3 VIEWS Noe Muniz[address] [place] [address] [place] [address] Referral ID Status Reason Start Date Expiration Date V isits Requested Visits Authorized [id number] Closed Auto-Generate d Referral 08/18/2022 09/17/2023 1 1 [facility] for referral (narrative)* Outpatient Procedure (Routine) - Closed Specialty Diagnoses / Procedures Referred By Jese graham Referred To Contact [facility] Diagnoses Change in bowel habits Procedures COLONOSCOPY DIAGNOSTIC COLONOSCOPY FLX DX W/COLLJ SPEC WHEN Gwen Umana MD [address] [place] [address] [facility] [address] [place] [address] Referral ID Status Reason Start Date Expiration Date V isits Requested Visits Authorized [id number] Closed Auto-Generate d Referral 04/11/2022 04/11/2023 1 1 [facility] for referral (narrative)* Diagnostic Procedure Only (Routine) - Pending Review Specialty Diagnoses / Procedures Referred By Jese graham Referred To Contact [facility] Diagnoses Encounter for screening mammogram for malignant neoplasm of breast Procedures PATSY SCREENING SCREENING MAMMOGRAPHY BI 2-VIEW BREAST INC Mikayla Garcia MD [address] [place] [address] [facility] [address] [place] [phone] Referral ID Status Reason Start Date Expiration Date Visits Requested Visits Authorized [id number] Pending Review Auto-Generat ed Referral 3 06/10/2024 1 1 [facility] for referral (narrative)* Diagnostic Procedure Only (Routine) - New Request Specialty Diagnoses / Procedures Referred By Jese graham Referred To Contact [facility] Diagnoses Encounter for screening mammogram for malignant neoplasm of breast Procedures PATSY SCREENING SCREENING MAMMOGRAPHY BI 2-VIEW BREAST INC Mikayla Garcia MD [facility] [place] [address] [facility] [address] [place] [address] Referral ID Status Reason Start Date Expiration Date Visits Requested Visits Authorized [id number] New Request Auto-Generat ed Referral 02/20/2024 03/21/2025 1 1 [facility] for referral (narrative)* Diagnostic Procedure Only (Routine) - Closed Specialty Diagnoses / Procedures Referred By Contac t Referred To Contact XR IMAGING Diagnoses Pes planus of both feet 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 Posterior tibial tendon dysfunction Procedures XR FOOT GENERAL 3V AP/LAT/OBL LEFT RADEX FOOT COMPLETE MINIMUM 3 VIEWS Noe Muniz [address] [place] [address] [place] [address] Referral ID Status Reason Start Date Expiration Date V isits Requested Visits Authorized [id number] Closed Auto-Generate d Referral 07/04/2022 08/03/2023 1 1 [facility] for referral (narrative)* Diagnostic Procedure Only (Routine) - Closed Specialty Diagnoses / Procedures Referred By Stanleyac t Referred To Contact XR IMAGING Diagnoses Foot pain, left Procedures XR FOOT GENERAL 3V AP/LAT/OBL LEFT RADEX FOOT COMPLETE MINIMUM 3 VIEWS Mikayla Strange MD [address] [place] [address] [place] [address] Referral ID Status Reason Start Date Expiration Date V isits Requested Visits Authorized [id number] Closed Auto-Generate d Referral 12/17/2021 01/16/2023 1 1 [facility] for referral (narrative)No reason for referral information [facility] Phone: Reason for visit Narrative* Diagnostic Procedure Only (Routine) - Closed Specialty Diagnoses / Procedures Referred By Contac t Referred To Contact [facility] Diagnoses Screening breast examination Procedures PATSY SCREENING SCREENING MAMMOGRAPHY BI 2-VIEW BREAST INC CAD Mikayla Strange MD [address] [place] [address] [facility] [address] [place] [address] Referral ID Status Reason Start Date Expiration Date V isits Requested Visits Authorized [id number] Closed Auto-Generate d Referral 03/22/2022 04/21/2023 1 1 [facility] for visit Narrative* Diagnostic Procedure Only (Routine) - Closed Specialty Diagnoses / Procedures Referred By Jese t Referred To Contact XR IMAGING Diagnoses 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, subsequent encounter Procedures XR FOOT GENERAL 3V AP/LAT/OBL LEFT RADEX FOOT COMPLETE MINIMUM 3 VIEWS Noe Muniz [address] [place] [address] [place] [address] Referral ID Status Reason Start Date Expiration Date V isits Requested Visits Authorized [id number] Closed Auto-Generate d Referral 08/18/2022 09/17/2023 1 1 [facility] for visit Narrative* Outpatient Procedure (Routine) - Closed Specialty Diagnoses / Procedures Referred By Jese t Referred To Contact [facility] Diagnoses Change in bowel habits Procedures COLONOSCOPY DIAGNOSTIC COLONOSCOPY FLX DX W/COLLJ SPEC WHEN Gwen Umana MD [address] [facility] [place] [place] [address] [facility] [address] [place] [address] Referral ID Status Reason Start Date Expiration Date V isits Requested Visits Authorized [id number] Closed Auto-Generate d Referral 04/11/2022 04/11/2023 1 1 [facility] for visit Narrative* Diagnostic Procedure Only (Routine) - Closed Specialty Diagnoses / Procedures Referred By Jese t Referred To Contact [facility] Diagnoses Encounter for screening mammogram for malignant neoplasm of breast Procedures PATSY SCREENING SCREENING MAMMOGRAPHY BI 2-VIEW BREAST INC Mikayla Garcia MD [address] [place] [address] [facility] [address] [place] [address] Referral ID Status Reason Start Date Expiration Date V isits Requested Visits Authorized [id number] Closed Auto-Generate d Referral 05/12/2023 06/10/2024 1 1 [facility] for visit Narrative* Diagnostic Procedure Only (Routine) - Closed Specialty Diagnoses / Procedures Referred By Contac t Referred To Contact XR IMAGING Diagnoses Pes planus of both feet 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 Posterior tibial tendon dysfunction Procedures XR FOOT GENERAL 3V AP/LAT/OBL LEFT RADEX FOOT COMPLETE MINIMUM 3 VIEWS Noe Muniz [address] [place] [address] [place] [address] Referral ID Status Reason Start Date Expiration Date V isits Requested Visits Authorized [id number] Closed Auto-Generate d Referral 07/04/2022 08/03/2023 1 1 [facility] for visit Narrative* Diagnostic Procedure Only (Routine) - Closed Specialty Diagnoses / Procedures Referred By Contac t Referred To Contact XR IMAGING Diagnoses Foot pain, left Procedures XR FOOT GENERAL 3V AP/LAT/OBL LEFT RADEX FOOT COMPLETE MINIMUM 3 VIEWS Mikayla Strange MD [address] [place] [address] [place] [address] Referral ID Status Reason Start Date Expiration Date V isits Requested Visits Authorized [id number] Closed Auto-Generate d Referral 12/17/2021 01/16/2023 1 1 [facility] for visit Narrative* Diagnostic Procedure Only (Routine) - Closed Specialty Diagnoses / Procedures Referred By Contac t Referred To Contact XR IMAGING Diagnoses Fracture Screening for osteoporosis Procedures DXA-AXIAL SKELETON DXA BONE DENSITY STUDY / SITES AXIAL SKEL Mikayla Strange MD [address] [place] [address] Phone: tel: fax: [place] [address] Referral ID Status Reason Start Date Expiration Date V isits Requested Visits Authorized [id number] Closed Auto-Generate d Referral 09/23/2024 10/23/2025 1 1 [facility] Chief Complaint and Reason for Visit Chief Complaint ARTHRITIS/PAIN- COPY PCP Chief Complaint ARTHRITIS/PAIN- COPY PCP PAIN- COPY PCP Chief Complaint ARTHRITIS/PAIN- COPY PCP PAIN- COPY PCP LEFT ARM PAIN CHEST PAIN LEFT ARM PAIN CHEST PAIN Chief Complaint PAIN- COPY PCP LEFT ARM PAIN CHEST PAIN LEFT ARM PAIN CHEST PAIN PAIN- COPY PCP Chief Complaint XRAY GUIDED INJECTIO N OF NAVICULAR JOINT Reason for Visit Arthritis of foot Chief Complaint PAIN- COPY PCP Chief Complaint Admit Date gu complaint June 24, 2024 1:19pm PAIN- COPY PCP July 12, 2024 8 :42am [facility] September 16, 2024 1: 00pm Chief Complaint Admit Date PAIN- COPY PCP July 12, 2024 8 :42am [facility] October 03, 2024 1: 00pm XRAY BOTH KNEES October 30, 2024 3:00pm Chief Complaint Admit Date [facility] October 03, 2024 1: 00pm XRAY BOTH KNEES October 30, 2024 3:00pm LEFT KNEE November 11, 2024 1:13p m Room 1 November 11, 2024 1:41p m Chief Complaint Admit Date [facility] RX October 03, 2024 1: 00pm XRAY BOTH KNEES October 30, 2024 3:00pm LEFT KNEE November 11, 2024 1:13p m Room 1 November 11, 2024 1:41p m LUMBAR SPINE November 21, 2024 1:16p m Room 4 November 21, 2024 1:40p m Reason for Visit Admit Date Left knee DJD November 11, 2024 1:13p m Chronic pain syndrome November 11, 2024 1:1 3pm Rheumatoid arthritis November 11, 2024 1:13 pm Family History No Family History Records Found Relationship Condition Age at Onset Recorded Date/T garo mother Myocardial infarction Unknown father Myocardial infarction Unknown Malignant neoplasm Unknown sister History of Sjogren's disease Unknown Advance Directives No Advanced Directives Records Found Advance Directive Response Recorded Date/ Time Advance Directives No December 17 11:08pm Living Will No February 11 9 5:11am Power of Welcome Hostess No February 11 5:11am Advance Directive Response Recorded Date/ Time Advance Directives No December 17 10:08pm Living Will No February 11 9 4:11am Power of Welcome Hostess No [place] 19th, 2 019 4:11am Advance Directive Response Recorded Date/ Time Advance Directives No December 17 10:08pm Living Will No August 18, 2 023 2:02pm Power of Welcome Hostess No August 18, 2022 2:02pm Advance Directive Response Recorded Date/ Time Advance Directives No December 17 11:08pm Living Will No August 18, 2 023 3:02pm Power of Welcome Hostess No August 18, 2022 3:02pm Date Activated Date Inactivated Comments 05/02/2024 6:00 PM 05/09/2024 8:13 PM Question Answer Comments Full Code Order Discussed With: Patient Date Activated Date Inactivated Comments 05/02/2024 6:00 PM 05/09/2024 8:13 PM Question Answer Comments Full Code Order Discussed With: Patient Advance Directive Response Recorded Date/ Time Living Will No June 24, 2 024 2:24pm Do you have a Healthcare Power of Welcome Hostess? No June 24, 2024 2:24pm Advance Directives No December 17 11:08pm Advance Directive Response Recorded Date/ Time Advance Directives No December 17 11:08pm Advance Directive Response Recorded Date/ Time Advance Directives No November 21 1:20pm Reason for Referral Specialty Diagnoses / Procedures Referred By Contac t Referred To Contact CT IMAGING Diagnoses Left foot pain Procedures CT FOOT WO IVCON LT CT LOWER EXTREMITY W/O CONTRAST MATERIAL TestNoe robert [address] [place] [address] Ct Imaging Referral ID Status Reason Start Date Expiration Date Visits Requested Visits Authorized [id number] Authorized Auto-Generat ed Referral 08/29/2022 10/13/2022 1 1 Specialty Diagnoses / Procedures Referred By Jese t Referred To Contact CT IMAGING Diagnoses Left foot pain Procedures CT FOOT WO IVCON LT CT LOWER EXTREMITY W/O CONTRAST MATERIAL TestNoe robert [address] [place] [address] [place] [address] Referral ID Status Reason Start Date Expiration Date V isits Requested Visits Authorized [id number] Closed Auto-Generate d Referral 08/29/2022 10/13/2022 1 1 Specialty Diagnoses / Procedures Referred By Contac t Referred To Contact Urology Diagnoses Dysuria Microscopic hematuria Procedures CONSULT TO UROLOGY OFFICE/OUTPATIENT NEW HIGH MDM 60 MINUTES Mikayla Strange MD [address] [place] [address] Referral ID Status Reason Start Date Expiration Date Visits Requested Visits Authorized [id number] Authorized PCP Requested Referral 03/09/2024 03/09/2025 1 1 Specialty Diagnoses / Procedures Referred By Contac t Referred To Contact [facility] Diagnoses 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, subsequent encounter Procedures CONSULT TO PHYSICAL THERAPY PHYSICAL THERAPY EVALUATION HIGH COMPLEX 45 MINS Sydni Waggoner MD [address] [place] [address] [place] [address] [facility] [address] [place] [address] Referral ID Status Reason Start Date Expiration Date Visits Requested Visits Authorized [id number] Pending Review Auto-Generat ed Referral 07/22/2024 07/22/2025 1 1 Specialty Diagnoses / Procedures Referred By Contac t Referred To Contact XR IMAGING Diagnoses 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, subsequent encounter Procedures XR KNEE LIMITED 2V AP/LAT RIGHT RADIOLOGIC EXAMINATION KNEE 1/2 VIEWS Sydni Waggoner MD [address] [place] [address] [place] [address] [place] [address] Referral ID Status Reason Start Date Expiration Date Visits Requested Visits Authorized [id number] New Request Auto-Generat ed Referral 07/21/2024 08/20/2025 1 1 Medications Administered Section Inactive Administered [...] Given 05/27/2022 8:52 AM EST 50 mcg Given 05/27/2022 8:43 AM EST 50 mcg Given 05/27/2022 8:38 AM EST 50 mcg lactated ringers iv infusion 75 mL/hr, INTRAVENOUS, CONTINUOUS, Starting on Mon05/27/22 at 0800, Until Mon05/27/22 at 0914, Preprocedure New Bag/Syringe/Bottle 05/27/2022 8:20 AM EST 75 mL/hr 75 mL/hr Wrist, Left midazolam (PF) 1-5 mg injection (VERSED) 1-5 mg, INTRAVENOUS, DIRECTED, Starting on Mon05/27/22 at 0930, Until Mon05/27/22 at 1329, DOSING DIRECTED BY PHYSICIAN FOR PROCEDURAL SEDATION ONLY, Intraprocedure Given 05/27/2022 8:55 AM EST 2 mg Given 05/27/2022 8:52 AM EST 1 mg Given 05/27/2022 8:48 AM EST 2 mg ondansetron (PF) 4 mg injection (ZOFRAN) 4 mg, INTRAVENOUS, DIRECTED, Starting on Mon05/27/22 at 0930, Until Mon05/27/22 at 1329, DOSING DIRECTED BY PHYSICIAN FOR PROCEDURAL SEDATION ONLY, Intraprocedure Given 05/27/2022 9:05 AM EST 4 mg Summary Purpose Additional Source Comments Source Comments (unrecognize d section and content) In the event this informatio n is protected by the Federal Confidentiality of Alcohol and Drug Abuse Patient Records regulations: The Federal rules restrict any use of the information to criminally investigate or prosecute any alcohol or drug abuse patient.[facility] the event this information is protected by the Federal Confidentiality of Alcohol and Drug Abuse Patient Records regulations: The Federal rules restrict any use of the information to criminally investigate or prosecute any alcohol or drug abuse patient.[facility] the event this information is protected by the Federal Confidentiality of Alcohol and Drug Abuse Patient Records regulations: The Federal rules restrict any use of the information to criminally investigate or prosecute any alcohol or drug abuse patient.[facility] the event this information is protected by the Federal Confidentiality of Alcohol and Drug Abuse Patient Records regulations: The Federal rules restrict any use of the information to criminally investigate or prosecute any alcohol or drug abuse patient.[facility] the event this information is protected by the Federal Confidentiality of Alcohol and Drug Abuse Patient Records regulations: The Federal rules restrict any use of the information to criminally investigate or prosecute any alcohol or drug abuse patient.[facility] the event this information is protected by the Federal Confidentiality of Alcohol and Drug Abuse Patient Records regulations: The Federal rules restrict any use of the information to criminally investigate or prosecute any alcohol or drug abuse patient.[facility] the event this information is protected by the Federal Confidentiality of Alcohol and Drug Abuse Patient Records regulations: The Federal rules restrict any use of the information to criminally investigate or prosecute any alcohol or drug abuse patient.[facility] the event this information is protected by the Federal Confidentiality of Alcohol and Drug Abuse Patient Records regulations: The Federal rules restrict any use of the information to criminally investigate or prosecute any alcohol or drug abuse patient.[facility] the event this information is protected by the Federal Confidentiality of Alcohol and Drug Abuse Patient Records regulations: The Federal rules restrict any use of the information to criminally investigate or prosecute any alcohol or drug abuse patient.[facility] the event this information is protected by the Federal Confidentiality of Alcohol and Drug Abuse Patient Records regulations: The Federal rules restrict any use of the information to criminally investigate or prosecute any alcohol or drug abuse patient.[facility] the event this information is protected by the Federal Confidentiality of Alcohol and Drug Abuse Patient Records regulations: The Federal rules restrict any use of the information to criminally investigate or prosecute any alcohol or drug abuse patient.[facility] the event this information is protected by the Federal Confidentiality of Alcohol and Drug Abuse Patient Records regulations: The Federal rules restrict any use of the information to criminally investigate or prosecute any alcohol or drug abuse patient.[facility] the event this information is protected by the Federal Confidentiality of Alcohol and Drug Abuse Patient Records regulations: The Federal rules restrict any use of the information to criminally investigate or prosecute any alcohol or drug abuse patient.[facility] the event this information is protected by the Federal Confidentiality of Alcohol and Drug Abuse Patient Records regulations: The Federal rules restrict any use of the information to criminally investigate or prosecute any alcohol or drug abuse patient.[facility] the event this information is protected by the Federal Confidentiality of Alcohol and Drug Abuse Patient Records regulations: The Federal rules restrict any use of the information to criminally investigate or prosecute any alcohol or drug abuse patient.[facility] the event this information is protected by the Federal Confidentiality of Alcohol and Drug Abuse Patient Records regulations: The Federal rules restrict any use of the information to criminally investigate or prosecute any alcohol or drug abuse patient.[facility] the event this information is protected by the Federal Confidentiality of Alcohol and Drug Abuse Patient Records regulations: The Federal rules restrict any use of the information to criminally investigate or prosecute any alcohol or drug abuse patient.[facility] the event this information is protected by the Federal Confidentiality of Alcohol and Drug Abuse Patient Records regulations: The Federal rules restrict any use of the information to criminally investigate or prosecute any alcohol or drug abuse patient.[facility]In the event this information is protected by the Federal Confidentiality of Alcohol and Drug Abuse Patient Records regulations: The Federal rules restrict any use of the information to criminally investigate or prosecute any alcohol or drug abuse patient.[facility] the event this information is protected by the Federal Confidentiality of Alcohol and Drug Abuse Patient Records regulations: The Federal rules restrict any use of the information to criminally investigate or prosecute any alcohol or drug abuse patient.[facility] the event this information is protected by the Federal Confidentiality of Alcohol and Drug Abuse Patient Records regulations: The Federal rules restrict any use of the information to criminally investigate or prosecute any alcohol or drug abuse patient.[facility] the event this information is protected by the Federal Confidentiality of Alcohol and Drug Abuse Patient Records regulations: The Federal rules restrict any use of the information to criminally investigate or prosecute any alcohol or drug abuse patient.[facility] the event this information is protected by the Federal Confidentiality of Alcohol and Drug Abuse Patient Records regulations: The Federal rules restrict any use of the information to criminally investigate or prosecute any alcohol or drug abuse patient.[facility] the event this information is protected by the Federal Confidentiality of Alcohol and Drug Abuse Patient Records regulations: The Federal rules restrict any use of the information to criminally investigate or prosecute any alcohol or drug abuse patient.[facility] the event this information is protected by the Federal Confidentiality of Alcohol and Drug Abuse Patient Records regulations: The Federal rules restrict any use of the information to criminally investigate or prosecute any alcohol or drug abuse patient.[facility]In the event this information is protected by the Federal Confidentiality of Alcohol and Drug Abuse Patient Records regulations: The Federal rules restrict any use of the information to criminally investigate or prosecute any alcohol or drug abuse patient.[facility]In the event this information is protected by the Federal Confidentiality of Alcohol and Drug Abuse Patient Records regulations: The Federal rules restrict any use of the information to criminally investigate or prosecute any alcohol or drug abuse patient.[facility]In the event this information is protected by the Federal Confidentiality of Alcohol and Drug Abuse Patient Records regulations: The Federal rules restrict any use of the information to criminally investigate or prosecute any alcohol or drug abuse patient.[facility]In the event this information is protected by the Federal Confidentiality of Alcohol and Drug Abuse Patient Records regulations: The Federal rules restrict any use of the information to criminally investigate or prosecute any alcohol or drug abuse patient.[facility] the event this information is protected by the Federal Confidentiality of Alcohol and Drug Abuse Patient Records regulations: The Federal rules restrict any use of the information to criminally investigate or prosecute any alcohol or drug abuse patient.[facility] NorthIn the event this information is protected by the Federal Confidentiality of Alcohol and Drug Abuse Patient Records regulations: The Federal rules restrict any use of the information to criminally investigate or prosecute any alcohol or drug abuse patient.[facility] NorthIn the event this information is protected by the Federal Confidentiality of Alcohol and Drug Abuse Patient Records regulations: The Federal rules restrict any use of the information to criminally investigate or prosecute any alcohol or drug abuse patient.[facility]In the event this information is protected by the Federal Confidentiality of Alcohol and Drug Abuse Patient Records regulations: The Federal rules restrict any use of the information to criminally investigate or prosecute any alcohol or drug abuse patient.[facility] NorthIn the event this information is protected by the Federal Confidentiality of Alcohol and Drug Abuse Patient Records regulations: The Federal rules restrict any use of the information to criminally investigate or prosecute any alcohol or drug abuse patient.[facility] NorthIn the event this information is protected by the Federal Confidentiality of Alcohol and Drug Abuse Patient Records regulations: The Federal rules restrict any use of the information to criminally investigate or prosecute any alcohol or drug abuse patient.[facility] NorthIn the event this information is protected by the Federal Confidentiality of Alcohol and Drug Abuse Patient Records regulations: The Federal rules restrict any use of the information to criminally investigate or prosecute any alcohol or drug abuse patient.[facility] NorthIn the event this information is protected by the Federal Confidentiality of Alcohol and Drug Abuse Patient Records regulations: The Federal rules restrict any use of the information to criminally investigate or prosecute any alcohol or drug abuse patient.[facility] NorthIn the event this information is protected by the Federal Confidentiality of Alcohol and Drug Abuse Patient Records regulations: The Federal rules restrict any use of the information to criminally investigate or prosecute any alcohol or drug abuse patient.[facility] NorthIn the event this information is protected by the Federal Confidentiality of Alcohol and Drug Abuse Patient Records regulations: The Federal rules restrict any use of the information to criminally investigate or prosecute any alcohol or drug abuse patient.[facility] NorthIn the event this information is protected by the Federal Confidentiality of Alcohol and Drug Abuse Patient Records regulations: The Federal rules restrict any use of the information to criminally investigate or prosecute any alcohol or drug abuse patient.[facility] NorthIn the event this information is protected by the Federal Confidentiality of Alcohol and Drug Abuse Patient Records regulations: The Federal rules restrict any use of the information to criminally investigate or prosecute any alcohol or drug abuse patient.[facility] NorthIn the event this information is protected by the Federal Confidentiality of Alcohol and Drug Abuse Patient Records regulations: The Federal rules restrict any use of the information to criminally investigate or prosecute any alcohol or drug abuse patient.[facility] NorthIn the event this information is protected by the Federal Confidentiality of Alcohol and Drug Abuse Patient Records regulations: The Federal rules restrict any use of the information to criminally investigate or prosecute any alcohol or drug abuse patient.[facility] NorthIn the event this information is protected by the Federal Confidentiality of Alcohol and Drug Abuse Patient Records regulations: The Federal rules restrict any use of the information to criminally investigate or prosecute any alcohol or drug abuse patient.[facility] NorthIn the event this information is protected by the Federal Confidentiality of Alcohol and Drug Abuse Patient Records regulations: The Federal rules restrict any use of the information to criminally investigate or prosecute any alcohol or drug abuse patient.[facility] NorthIn the event this information is protected by the Federal Confidentiality of Alcohol and Drug Abuse Patient Records regulations: The Federal rules restrict any use of the information to criminally investigate or prosecute any alcohol or drug abuse patient.[facility] NorthIn the event this information is protected by the Federal Confidentiality of Alcohol and Drug Abuse Patient Records regulations: The Federal rules restrict any use of the information to criminally investigate or prosecute any alcohol or drug abuse patient.[facility] NorthIn the event this information is protected by the Federal Confidentiality of Alcohol and Drug Abuse Patient Records regulations: The Federal rules restrict any use of the information to criminally investigate or prosecute any alcohol or drug abuse patient.[facility] NorthIn the event this information is protected by the Federal Confidentiality of Alcohol and Drug Abuse Patient Records regulations: The Federal rules restrict any use of the information to criminally investigate or prosecute any alcohol or drug abuse patient.[facility] NorthIn the event this information is protected by the Federal Confidentiality of Alcohol and Drug Abuse Patient Records regulations: The Federal rules restrict any use of the information to criminally investigate or prosecute any alcohol or drug abuse patient.[facility] NorthIn the event this information is protected by the Federal Confidentiality of Alcohol and Drug Abuse Patient Records regulations: The Federal rules restrict any use of the information to criminally investigate or prosecute any alcohol or drug abuse patient.[facility] NorthIn the event this information is protected by the Federal Confidentiality of Alcohol and Drug Abuse Patient Records regulations: The Federal rules restrict any use of the information to criminally investigate or prosecute any alcohol or drug abuse patient.[facility] [place] NorthIn the event this information is protected by the Federal Confidentiality of Alcohol and Drug Abuse Patient Records regulations: The Federal rules restrict any use of the information to criminally investigate or prosecute any alcohol or drug abuse patient.[facility] [place] NorthIn the event this information is protected by the Federal Confidentiality of Alcohol and Drug Abuse Patient Records regulations: The Federal rules restrict any use of the information to criminally investigate or prosecute any alcohol or drug abuse patient.[facility] NorthIn the event this information is protected by the Federal Confidentiality of Alcohol and Drug Abuse Patient Records regulations: The Federal rules restrict any use of the information to criminally investigate or prosecute any alcohol or drug abuse patient.[facility] [place] NorthIn the event this information is protected by the Federal Confidentiality of Alcohol and Drug Abuse Patient Records regulations: The Federal rules restrict any use of the information to criminally investigate or prosecute any alcohol or drug abuse patient.[facility] NorthIn the event this information is protected by the Federal Confidentiality of Alcohol and Drug Abuse Patient Records regulations: The Federal rules restrict any use of the information to criminally investigate or prosecute any alcohol or drug abuse patient.[facility] NorthIn the event this information is protected by the Federal Confidentiality of Alcohol and Drug Abuse Patient Records regulations: The Federal rules restrict any use of the information to criminally investigate or prosecute any alcohol or drug abuse patient.[facility] [place] NorthIn the event this information is protected by the Federal Confidentiality of Alcohol and Drug Abuse Patient Records regulations: The Federal rules restrict any use of the information to criminally investigate or prosecute any alcohol or drug abuse patient.[facility] NorthIn the event this information is protected by the Federal Confidentiality of Alcohol and Drug Abuse Patient Records regulations: The Federal rules restrict any use of the information to criminally investigate or prosecute any alcohol or drug abuse patient.[facility] [place] NorthIn the event this information is protected by the Federal Confidentiality of Alcohol and Drug Abuse Patient Records regulations: The Federal rules restrict any use of the information to criminally investigate or prosecute any alcohol or drug abuse patient.[facility] [place] NorthIn the event this information is protected by the Federal Confidentiality of Alcohol and Drug Abuse Patient Records regulations: The Federal rules restrict any use of the information to criminally investigate or prosecute any alcohol or drug abuse patient.[facility] [place] NorthIn the event this information is protected by the Federal Confidentiality of Alcohol and Drug Abuse Patient Records regulations: The Federal rules restrict any use of the information to criminally investigate or prosecute any alcohol or drug abuse patient.[facility] [place] NorthIn the event this information is protected by the Federal Confidentiality of Alcohol and Drug Abuse Patient Records regulations: The Federal rules restrict any use of the information to criminally investigate or prosecute any alcohol or drug abuse patient.[facility] [place] NorthIn the event this information is protected by the Federal Confidentiality of Alcohol and Drug Abuse Patient Records regulations: The Federal rules restrict any use of the information to criminally investigate or prosecute any alcohol or drug abuse patient.[facility] [place] NorthIn the event this information is protected by the Federal Confidentiality of Alcohol and Drug Abuse Patient Records regulations: The Federal rules restrict any use of the information to criminally investigate or prosecute any alcohol or drug abuse patient.[facility] [place] NorthIn the event this information is protected by the Federal Confidentiality of Alcohol and Drug Abuse Patient Records regulations: The Federal rules restrict any use of the information to criminally investigate or prosecute any alcohol or drug abuse patient.[facility] [place] NorthIn the event this information is protected by the Federal Confidentiality of Alcohol and Drug Abuse Patient Records regulations: The Federal rules restrict any use of the information to criminally investigate or prosecute any alcohol or drug abuse patient.[facility] [place] NorthIn the event this information is protected by the Federal Confidentiality of Alcohol and Drug Abuse Patient Records regulations: The Federal rules restrict any use of the information to criminally investigate or prosecute any alcohol or drug abuse patient.[facility] NorthIn the event this information is protected by the Federal Confidentiality of Alcohol and Drug Abuse Patient Records regulations: The Federal rules restrict any use of the information to criminally investigate or prosecute any alcohol or drug abuse patient.[facility] [place] NorthIn the event this information is protected by the Federal Confidentiality of Alcohol and Drug Abuse Patient Records regulations: The Federal rules restrict any use of the information to criminally investigate or prosecute any alcohol or drug abuse patient.[facility] [place] NorthIn the event this information is protected by the Federal Confidentiality of Alcohol and Drug Abuse Patient Records regulations: The Federal rules restrict any use of the information to criminally investigate or prosecute any alcohol or drug abuse patient.[facility] [place] NorthIn the event this information is protected by the Federal Confidentiality of Alcohol and Drug Abuse Patient Records regulations: The Federal rules restrict any use of the information to criminally investigate or prosecute any alcohol or drug abuse patient.[facility] NorthIn the event this information is protected by the Federal Confidentiality of Alcohol and Drug Abuse Patient Records regulations: The Federal rules restrict any use of the information to criminally investigate or prosecute any alcohol or drug abuse patient.[facility] NorthIn the event this information is protected by the Federal Confidentiality of Alcohol and Drug Abuse Patient Records regulations: The Federal rules restrict any use of the information to criminally investigate or prosecute any alcohol or drug abuse patient.[facility] [place] NorthIn the event this information is protected by the Federal Confidentiality of Alcohol and Drug Abuse Patient Records regulations: The Federal rules restrict any use of the information to criminally investigate or prosecute any alcohol or drug abuse patient.[facility] [place] NorthIn the event this information is protected by the Federal Confidentiality of Alcohol and Drug Abuse Patient Records regulations: The Federal rules restrict any use of the information to criminally investigate or prosecute any alcohol or drug abuse patient.[facility] [place] NorthIn the event this information is protected by the Federal Confidentiality of Alcohol and Drug Abuse Patient Records regulations: The Federal rules restrict any use of the information to criminally investigate or prosecute any alcohol or drug abuse patient.[facility] NorthIn the event this information is protected by the Federal Confidentiality of Alcohol and Drug Abuse Patient Records regulations: The Federal rules restrict any use of the information to criminally investigate or prosecute any alcohol or drug abuse patient.[facility] [place] NorthIn the event this information is protected by the Federal Confidentiality of Alcohol and Drug Abuse Patient Records regulations: The Federal rules restrict any use of the information to criminally investigate or prosecute any alcohol or drug abuse patient.[facility] [place] NorthIn the event this information is protected by the Federal Confidentiality of Alcohol and Drug Abuse Patient Records regulations: The Federal rules restrict any use of the information to criminally investigate or prosecute any alcohol or drug abuse patient.[facility] NorthIn the event this information is protected by the Federal Confidentiality of Alcohol and Drug Abuse Patient Records regulations: The Federal rules restrict any use of the information to criminally investigate or prosecute any alcohol or drug abuse patient.[facility]In the event this information is protected by the Federal Confidentiality of Alcohol and Drug Abuse Patient Records regulations: The Federal rules restrict any use of the information to criminally investigate or prosecute any alcohol or drug abuse patient.[facility] NorthIn the event this information is protected by the Federal Confidentiality of Alcohol and Drug Abuse Patient Records regulations: The Federal rules restrict any use of the information to criminally investigate or prosecute any alcohol or drug abuse patient.[facility] NorthIn the event this information is protected by the Federal Confidentiality of Alcohol and Drug Abuse Patient Records regulations: The Federal rules restrict any use of the information to criminally investigate or prosecute any alcohol or drug abuse patient.[facility] NorthIn the event this information is protected by the Federal Confidentiality of Alcohol and Drug Abuse Patient Records regulations: The Federal rules restrict any use of the information to criminally investigate or prosecute any alcohol or drug abuse patient.[facility] NorthIn the event this information is protected by the Federal Confidentiality of Alcohol and Drug Abuse Patient Records regulations: The Federal rules restrict any use of the information to criminally investigate or prosecute any alcohol or drug abuse patient.[facility] NorthIn the event this information is protected by the Federal Confidentiality of Alcohol and Drug Abuse Patient Records regulations: The Federal rules restrict any use of the information to criminally investigate or prosecute any alcohol or drug abuse patient.[facility] NorthIn the event this information is protected by the Federal Confidentiality of Alcohol and Drug Abuse Patient Records regulations: The Federal rules restrict any use of the information to criminally investigate or prosecute any alcohol or drug abuse patient.[facility] Reason for Visit (unrecogniz ed section and content) Reason Comments F/U 6 months Reason Comments Opened In Error Reason Comments [...] Pain Specialty Diagnoses / Procedures Referred By Contac t Referred To Contact Podiatry Diagnoses Foot pain, left Procedures CONSULT TO PODIATRY OFFICE/OUTPATIENT [facility] 60-74 MINUTES Mikayla Strange MD [address] [place] [address] Referral ID Status Reason Start Date Expiration Date V isits Requested Visits Authorized [id number] Closed PCP Requested Referral 12/17/2021 12/17/2022 1 1 Reason Comments Follow Up Reason Comments Established Patient Follow Up Pain Reason Onset Date Comments Refill Request 03/03/2022 Reason Comments Results Reason Comments sweating Reason Comments Consult Colonoscopy consult, last 2012 Specialty Diagnoses / Procedures Referred By Jese t Referred To Contact General Surgery Diagnoses Change in bowel habits Nausea Procedures CONSULT TO GENERAL SURGERY OFFICE/OUTPATIENT [facility] 60-74 MINUTES Mikayla Strange MD [address] [place] [address] Referral ID Status Reason Start Date Expiration Date V isits Requested Visits Authorized [id number] Closed PCP Requested Referral 03/22/2022 03/22/2023 1 [...] LT CT LOWER EXTREMITY W/O CONTRAST MAT[place] [address] [place] [address] Referral ID Status Reason Start Date Expiration Date V isits Requested Visits Authorized [id number] Closed Auto-Generate d Referral 08/29/2022 10/13/2022 1 1 Reason Comments 6 Month Exam Reason Onset Date Comments Refill Request 08/08/2023 Reason Onset Date Comments Refill Request 08/15/2023 Reason Onset Date Comments Refill Request 11/16/2023 Reason Comments 6 Month Exam Reason Onset Date Comments Refill Request 02/05/2024 Reason Comments Results Reason Comments UTI Specialty Diagnoses / Procedures Referred By Jese graham Referred To Contact Urology Diagnoses Dysuria Microscopic hematuria Procedures CONSULT TO UROLOGY OFFICE/OUTPATIENT NEW HIGH MDM 60 MINUTES Mikayla Strange MD [address] [place] [address] Referral ID Status Reason Start Date Expiration Date V isits Requested Visits Authorized [id number] Closed PCP Requested Referral 03/09/2024 03/09/2025 1 1 Reason Onset Date Comments Refill Request 04/22/2024 Reason Comments Home Health orders Reason Comments Orders Reason Comments Patient Update Reason Onset Date Comments Symptoms 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/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 Reason Comments [facility] - order needs signature/faisal e Reason Comments Post Op Established Patient Reason Onset Date Comments Refill Request 08/06/2024 Reason Onset Date Comments Refill Request 08/06/2024 Reason Onset Date Comments Refill Request 08/08/2024 Reason Onset Date Comments F/U on Bone Density Results 10/15/2024 Reason Comments Established Patient Follow Up Knee Pain Numbness Reason Comments Recheck Follow up on bone de nsity, discuss treatment options Reason Comments Established Patient Follow Up Care Teams (unrecognized sec tion and content) Dragline Operator Helper Relationship Specialty Start Date End Date Mikayla Strange MD [address] [place], [place] [id number] PCP - General Family Practice 05/11/19 Dragline Operator Helper Relationship Specialty Start Date End Date Mikayla Strange MD [address] [place], [place] [id number] PCP - General Family Practice 05/11/19 Dragline Operator Helper Relationship Specialty Start Date End Date Mikayla Strange MD [address] [place], [place] [id number] PCP - General Family Practice 05/11/19 Dragline Operator Helper Relationship Specialty Start Date End Date Mikayla Strange MD [address] [place] [address] PCP - General Family Practice 05/11/19 Dragline Operator Helper Relationship Specialty Start Date End Date Mikayla Strange MD [address] [facility] [place] [address] PCP - General Family Practice 05/11/19 Dragline Operator Helper Relationship Specialty Start Date End Date Mikayla Strange MD [address] [facility] [place] [address] PCP - General Family Practice 05/11/19 Dragline Operator Helper Relationship Specialty Start Date End Date Mikayla Strange MD [address] [facility] [place] [address] PCP - General Family Practice 05/11/19 Dragline Operator Helper Relationship Specialty Start Date End Date Mikayla Strange MD [address] [facility] [place] [address] PCP - General Family Practice 05/11/19 Dragline Operator Helper Relationship Specialty Start Date End Date Mikayla Strange MD [address] [facility] [place] [address] PCP - General Family Practice 05/11/19 Dragline Operator Helper Relationship Specialty Start Date End Date Mikayla Strange MD [address] [facility] [place] [address] PCP - General Family Practice 05/11/19 Dragline Operator Helper Relationship Specialty Start Date End Date Mikayla Strange MD [address] [facility] [place] [address] PCP - General Family Practice 05/11/19 Dragline Operator Helper Relationship Specialty Start Date End Date Mikayla Strange MD [address] [facility] [place] [address] PCP - General Family Medicine 05/11/19 Dragline Operator Helper Relationship Specialty Start Date End Date Mikayla Strange MD [address] [facility] [place] [address] PCP - General Family Medicine 05/11/19 Dragline Operator Helper Relationship Specialty Start Date End Date Mikayla Strange MD [address] [facility] [place] [address] PCP - General Family Medicine 05/11/19 Dragline Operator Helper Relationship Specialty Start Date End Date Mikayla Strange MD [address] [facility] [place] [address] PCP - General Family Medicine 05/11/19 Dragline Operator Helper Relationship Specialty Start Date End Date Mikayla Strange MD [address] [facility] [place] [address] PCP - General Family Medicine 05/11/19 Dragline Operator Helper Relationship Specialty Start Date End Date Mikayla Strange MD [address] [place] [address] PCP - General Family Medicine 05/11/19 Dragline Operator Helper Relationship Specialty Start Date End Date Mikayla Strange MD [address] [place] [address] PCP - General Family Medicine 05/11/19 Team Status: Active Member Role Status Dates Dr. Mikayla Strange MD Family Provider Active Dr. Mikayla Strange MD Primary Care Provider Active Team Status: Inactive Member Role Status Dates Dr. Mikayla Strange MD Primary Care Provider Active Dr. Smita Buck MD Attending Provider, Referring Provider Active Team Status: Active Member Role Status Dates Dr. Mikayla Strange MD Primary Care Provider Active Dr. Latia Ward MD Attending Provider, Referring Pr ovider Active Team Status: Inactive Member Role Status Dates Dr. Mikayla Strange MD Primary Care Provider Active Dr. Latia Ward MD Attending Provider, Referring Pr ovider Active Dragline Operator Helper Relationship Specialty Start Date End Date Mikayla Strange MD [address] [place] [address] PCP - General Family Medicine 05/11/19 Dragline Operator Helper Relationship Specialty Start Date End Date Mikayla Strange MD [address] [facility] [place] [address] PCP - General Family Medicine 05/11/19 Dragline Operator Helper Relationship Specialty Start Date End Date Mikayla Strange MD [address] [place] [address] PCP - General Family Medicine 05/11/19 Dragline Operator Helper Relationship Specialty Start Date End Date Mikayla Strange MD [address] [place] [address] PCP - General Family Medicine 05/11/19 Team Status: Inactive Member Role Status Dates Dr. Mikayla Strange MD Primary Care Provider Active Dr. Noe Muniz , DPM Attending Provider, Referri Provider Active Dragline Operator Helper Relationship Specialty Start Date End Date Mikayla Strange MD [address] [place] [address] PCP - General Family Medicine 05/11/19 Dragline Operator Helper Relationship Specialty Start Date End Date Mikayla Strange MD [address] [place] [address] PCP - General Family Medicine 05/11/19 Dragline Operator Helper Relationship Specialty Start Date End Date Mikayla Strange MD [address] [place] [address] PCP - General Family Medicine 05/11/19 Dragline Operator Helper Relationship Specialty Start Date End Date Mikayla Strange MD [address] [facility] [place] [address] PCP - General Family Medicine 05/11/19 Dragline Operator Helper Relationship Specialty Start Date End Date Mikayla Strange MD [address] [place] [address] PCP - General Family Medicine 05/11/19 Dragline Operator Helper Relationship Specialty Start Date End Date Mikayla Strange MD [address] [place] [address] PCP - General Family Medicine 05/11/19 Dragline Operator Helper Relationship Specialty Start Date End Date Mikayla Strange MD [address] [place], [place] [address] PCP - General Family Medicine 05/11/19 Dragline Operator Helper Relationship Specialty Start Date End Date Mikayla Strange MD [address] [place], [place] [address] PCP - General Family Medicine 05/11/19 Dragline Operator Helper Relationship Specialty Start Date End Date Mikayla Strange MD [address] [place] [address] PCP - General Family Medicine 05/11/19 Dragline Operator Helper Relationship Specialty Start Date End Date Mikayla Strange MD [address] [place] [address] PCP - General Family Medicine 05/11/19 Dragline Operator Helper Relationship Specialty Start Date End Date Mikayla Strange MD [address] [place] [address] PCP - General Family Medicine 05/11/19 Dragline Operator Helper Relationship Specialty Start Date End Date Mikayla Strange MD [address] [place], [place] [address] PCP - General Family Medicine 05/11/19 Dragline Operator Helper Relationship Specialty Start Date End Date Mikayla Strange MD [address] [place], [place] [address] PCP - General Family Medicine 05/11/19 Dragline Operator Helper Relationship Specialty Start Date End Date Mikayla Strange MD [address] [place] [address] PCP - General Family Medicine 05/11/19 Dragline Operator Helper Relationship Specialty Start Date End Date Mikayla Strange MD [address] [place] [address] PCP - General Family Medicine 05/11/19 Dragline Operator Helper Relationship Specialty Start Date End Date Mikayla Strange MD [address] [place] [address] PCP - General Family Medicine 05/11/19 Dragline Operator Helper Relationship Specialty Start Date End Date Mikayla Strange MD [address] [place] [address] PCP - General Family Medicine 05/11/19 Dragline Operator Helper Relationship Specialty Start Date End Date Mikayla Strange MD [address] [place] [address] PCP - General Family Medicine 05/11/19 Dragline Operator Helper Relationship Specialty Start Date End Date Mikayla Strange MD [address] [place] [address] PCP - General Family Medicine 05/11/19 Dragline Operator Helper Relationship Specialty Start Date End Date Mikayla Strange MD [address] [place] [address] PCP - General Family Medicine 05/11/19 Dragline Operator Helper Relationship Specialty Start Date End Date Mikayla Strange MD [address] [place] [address] PCP - General Family Medicine 05/11/19 Dragline Operator Helper Relationship Specialty Start Date End Date Mikayla Strange MD [address] [place] [address] PCP - General Family Medicine 05/11/19 Dragline Operator Helper Relationship Specialty Start Date End Date Mikayla Strange MD [address] [place] [address] PCP - General Family Medicine 05/11/19 Sayda Carr APRN.MATH AND SCIENCES DEPARTMENT CHAIR [address] [place] [address] Explosive Operator Bomb Family Medicine 06/03/24 Ginger Lundberg PET RESORT CONCIERGE.MATH AND SCIENCES DEPARTMENT CHAIR [address] [place] [address] Explosive Operator [employer] [facility] 06/03/24 Dragline Operator Helper Relationship Specialty Start Date End Date Mikayla Strange MD [address] [place] [address] PCP - General Family Medicine 05/11/19 Sayda Carr PET RESORT CONCIERGE.MATH AND SCIENCES DEPARTMENT CHAIR [address] [place] [address] Explosive Operator [employer] [facility] 06/03/24 Ginger Lundberg PET RESORT CONCIERGE.MATH AND SCIENCES DEPARTMENT CHAIR [address] [place] [address] Explosive Operator [facility] 06/03/24 Dragline Operator Helper Relationship Specialty Start Date End Date Mikayla Strange MD [address] [place] [address] PCP - General Family Medicine 05/11/19 Sayda Carr APRN.MATH AND SCIENCES DEPARTMENT CHAIR [address] [place], [place] 205[address] [phone] Explosive Operator [employer] Family [facility] 06/03/24 Ginger Lundberg APRN.MATH AND SCIENCES DEPARTMENT CHAIR [address] [place], [place] 049372 [phone] Explosive Operator [employer] [facility] 06/03/24 Dragline Operator Helper Relationship Specialty Start Date End Date Mikayla Strange MD [address] [place], [place] [address]33[address] PCP - General Family Medicine 05/11/19 Sayda Carr APRN.MATH AND SCIENCES DEPARTMENT CHAIR [address] [place] [address] [facility] Dragline Operator Helper Relationship Specialty Start Date End Date Mikayla Strange MD [address] [place], [place] [address]808[address] PCP - General Family Medicine 05/11/19 Sayda Carr APRN.MATH AND SCIENCES DEPARTMENT CHAIR [address] [place] [address] [facility] 06/03/24 Dragline Operator Helper Relationship Specialty Start Date End Date Mikayla Strange MD [address] [place] [address] PCP - General Family Medicine 05/11/19 Sayda Carr APRN.MATH AND SCIENCES DEPARTMENT CHAIR [address] [place] [address] [facility] 06/03/24 Ginger Lundberg PET RESORT CONCIERGE.MATH AND SCIENCES DEPARTMENT CHAIR [address] [place] [address] [facility] 06/03/24 Dragline Operator Helper Relationship Specialty Start Date End Date Mikayla Strange MD [address] [place] [address] PCP - General Family Medicine 05/11/19 Sayda Carr APRN.MATH AND SCIENCES DEPARTMENT CHAIR [address] [facility] [place] [address] [facility] 06/03/24 Ginger Lundberg PET RESORT CONCIERGE.MATH AND SCIENCES DEPARTMENT CHAIR [address] [facility] [place] [address] [facility] 06/03/24 Dragline Operator Helper Relationship Specialty Start Date End Date Mikayla Strange MD [address] [facility] [place] [address] PCP - General Family Medicine 05/11/19 Sayda Carr APRN.MATH AND SCIENCES DEPARTMENT CHAIR [address] [facility] [place] [address] [facility] 06/03/24 Ginger Lundberg PET RESORT CONCIERGE.MATH AND SCIENCES DEPARTMENT CHAIR [address] [facility] [place] [address] [facility] 06/03/24 Dragline Operator Helper Relationship Specialty Start Date End Date Mikayla Strange MD [address] [place] [address] PCP - General Family Medicine 05/11/19 Sayda Carr APRN.MATH AND SCIENCES DEPARTMENT CHAIR [address] [facility] [place] [address] Explos[employer] Operator [facility] 06/03/24 Ginger Lundberg APRN.MATH AND SCIENCES DEPARTMENT CHAIR [address] [facility] [address] Explosive Operator Bomb Family [facility] 06/03/24 Dragline Operator Helper Relationship Specialty Start Date End Date Mikayla Strange MD [address] [facility] [place] [address] PCP - General Family Medicine 05/11/19 Sayda Carr APRN.MATH AND SCIENCES DEPARTMENT CHAIR [address] [facility] [place] [address] [facility] 06/03/24 Ginger Lundberg APRN.MATH AND SCIENCES DEPARTMENT CHAIR [address] [facility] [place] [address] [facility] 06/03/24 Dragline Operator Helper Relationship Specialty Start Date End Date Mikayla Strange MD [address] [facility] [place] [address] PCP - General Family Medicine 05/11/19 Sayda Carr APRN.MATH AND SCIENCES DEPARTMENT CHAIR [address] [facility] [place] [address] Explosive Operator [facility] 06/03/24 Ginger Lundberg APRN.MATH AND SCIENCES DEPARTMENT CHAIR [address] [facility] [place] [address] [facility] 06/03/24 Dragline Operator Helper Relationship Specialty Start Date End Date Mikayla Strange MD [address] [place] [address] PCP - General Family Medicine 05/11/19 Sayda Carr APRN.MATH AND SCIENCES DEPARTMENT CHAIR [address] [facility] [place] [address] [facility] 06/03/24 Ginger Lundberg APRN.MATH AND SCIENCES DEPARTMENT CHAIR [address] [place] [address] [facility] 06/03/24 Dragline Operator Helper Relationship Specialty Start Date End Date Mikayla Strange MD [address] [place] [address] PCP - General Family Medicine 05/11/19 Sayda Carr APRN.MATH AND SCIENCES DEPARTMENT CHAIR [address] [place] [address] [facility] 06/03/24 Ginger Lundberg APRN.MATH AND SCIENCES DEPARTMENT CHAIR [address] [place] [address] [facility] 06/03/24 Team Status: Active Member Role Status Dates Dr. Mikayla Strange MD Primary Care Provider Active Team Status: Inactive Member Role Status Dates Dr. Mikayla Strange MD Primary Care Provider Active Start: June 24, 2024 End: June 24, 2024 Dr. Rafael Martines DO Attending Provider Activ e Start: June 24, 2024 End: June 24, 2024 Dr. Rafael Martines DO Emergency Provider Activ e Start: June 24, 2024 End: June 24, 2024 Team Status: Active Member Role Status Dates Dr. Mikayla Strange MD Primary Care Provider Active Start: June 24, 2024 Dr. Eliel Andujar MD Attending Provider Active S tart: June 24, 2024 Dr. Rafael Martines DO Referring Provider Activ e Start: June 24, 2024 Team Status: Inactive Member Role Status Dates Dr. Mikayla Strange MD Primary Care Provider Active Start: July 12, 2024 End: July 12, 2024 Dr. Smita Buck MD Attending Provider Active Start: July 12, 2024 End: July 12, 2024 Dr. Smita Buck MD Referring Provider Active Start: July 12, 2024 End: July 12, 2024 Team Status: Inactive Member Role Status Dates Dr. Mikayla Strange MD Primary Care Provider Active Start: September 06, 2024 End: September 06, 2024 Dr. Smita Buck MD Attending Provider Active Start: September 06, 2024 End: September 06, 2024 Dr. Smita Buck MD Referring Provider Active Start: September 06, 2024 End: September 06, 2024 Team Status: Active Member Role Status Dates Dr. Mikayla Strange MD Primary Care Provider Active Start: September 16, 2024 Sydni Waggoner MD Attending Provider Active Start: September 16, 2024 Sydni Waggoner MD Referring Provider Active Start: September 16, 2024 Dragline Operator Helper Relationship Specialty Start Date End Date Mikayla Strange MD [address] [place], [place] [address] PCP - General Family Medicine 05/11/19 Sayda Carr, PET RESORT CONCIERGE.MATH AND SCIENCES DEPARTMENT CHAIR [address] [place], [place] [address] [facility] 06/03/24 Ginger Lundberg, PET RESORT CONCIERGE.MATH AND SCIENCES DEPARTMENT CHAIR [address] [place], [place] [address] [facility] 06/03/24 Dragline Operator Helper Relationship Specialty Start Date End Date Mikayla Strange MD [address] [place], [place] [id number] PCP - General Family Medicine 05/11/19 Sayda Carr PET RESORT CONCIERGE.MATH AND SCIENCES DEPARTMENT CHAIR [address] [place], [place] [address] [facility] 06/03/24 Ginger Lundberg PET RESORT CONCIERGE.MATH AND SCIENCES DEPARTMENT CHAIR [address] [facility] [place] [address] [facility] 06/03/24 Dragline Operator Helper Relationship Specialty Start Date End Date Mikayla Strange MD [address] [place], [place] [address] PCP - General [facility] 05/11/19 Sayda Carr APRN.MATH AND SCIENCES DEPARTMENT CHAIR [address] [place] [address] [facility] 06/03/24 Ginger Lundberg APRN.MATH AND SCIENCES DEPARTMENT CHAIR [address] [place], [place] [address] [facility] 06/03/24 Team Status: Active Member Role Status Dates Dr. Mikayla Strange MD Primary Care Provider Active Start: October 03, 2024 Sydni Waggoner MD Attending Provider Active Start: October 03, 2024 Sydni Waggoner MD Referring Provider Active Start: October 03, 2024 Team Status: Inactive Member Role Status Dates Dr. Mikayla Strange MD Primary Care Provider Active Start: October 30, 2024 End: October 30, 2024 Dr. Latia Ward MD Attending Provider Active Start: October 30, 2024 End: October 30, 2024 Dr. Latia Ward MD Referring Provider Active Start: October 30, 2024 End: October 30, 2024 Team Status: Active Member Role Status Dates Dr. Mikayla Strange MD Primary Care Provider Active Start: November 11, 2024 Dr. Mikayla Strange MD Referring Provider Active Start: November 11, 2024 Dr. Martir Carlin DO Attending Provider Active Start: November 11, 2024 Team Status: Inactive Member Role Status Dates Dr. Mikayla Strange MD Primary Care Provider Active Start: November 11, 2024 End: November 11, 2024 Dr. Mati Magallon MD Attending Provider Active S tart: November 11, 2024 End: November 11, 2024 Team Status: Inactive Member Role Status Dates Dr. Mikayla Strange MD Primary Care Provider Active Start: November 11, 2024 End: November 11, 2024 Dr. Mikayla Strange MD Referring Provider Active Start: November 11, 2024 End: November 11, 2024 Dr. Martir Carlin DO Attending Provider Active Start: November 11, 2024 End: November 11, 2024 Team Status: Active Member Role Status Dates Dr. Mikayla Strange MD Primary Care Provider Active Start: November 21, 2024 Dr. Mikayla Strange MD Referring Provider Active Start: November 21, 2024 JERILYN Jerez Attending Provider Active Star t: November 21, 2024 Team Status: Inactive Member Role Status Dates Dr. Mikayla Strange MD Primary Care Provider Active Start: November 21, 2024 End: November 21, 2024 Dr. Mati Magallon MD Attending Provider Active S tart: November 21, 2024 End: November 21, 2024 Team Status: Inactive Member Role Status Dates Dr. Mikayla Strange MD Primary Care Provider Active Start: November 21, 2024 End: November 21, 2024 Dr. 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 Relationship Specialty Start Date End Date Mikayla Strange MD [address] [place], [place] [id number] PCP - General Family Medicine 05/11/19 Sayda Carr APRN.CNP [address] [place], [place] [address] [facility] 06/03/24 Ginger Lundberg APRN.[facility] [address] [place] [address] [facility] 06/03/24 Goals (unrecognized section and content) Goals may be documented in a n alternate sectionGoals may be documented in an alternate sectionGoals may be documented in an alternate sectionGoals may be documented in an alternate sectionGoals may be documented in an alternate sectionGoals may be documented in an alternate sectionGoals may be documented in an alternate sectionGoals may be documented in an alternate sectionGoals may be documented in an alternate sectionGoals may be documented in an alternate sectionGoals may be documented in an alternate sectionGoals may be documented in an alternate sectionGoals may be documented in an alternate sectionGoals may be documented in an alternate sectionGoals may be documented in an alternate section INFORMATION SOURCE (unrecogn ized section and content) DATE CREATED AUTHOR 10/30/2024 [facility] DATE CREATED AUTHOR AUTHOR'S ORGANIZ ATION 11/22/2024 [facility] DATE CREATED AUTHOR AUTHOR'S ORGANIZ ATION 11/26/2024 [facility] FOR RECORDS PERTAINING TO PATIENTS WHO ARE [...] BE BASED ON THE PRIMARY CLINICAL RECORDS. [employer] [facility]. provides no warranty or guarantee of the accuracy or completeness of information in this document.
== END | disposition home or self-care (01) ==
PROVIDERS: PCP Family Medicine; Referring Provider Anesthesiology Pain Medicine; Visit Provider Anesthesiology Pain Medicine
DX: F11.20 Opioid dependence, uncomplicated (principal)
CPT/HCPCS: 80307

== ENCOUNTER → 2024-12-06 | Outpatient (CLI) | payer MEDICARE, SELFPAY ==
[2024-12-06 10:18] LABS: Absolute Lymphocyte Count 2.38 X10^3/uL (0.83-4.51); Absolute Neutrophil Count 7.5 X10^3/uL (2.0-7.7); Basophil# 0.03 X10^3/uL; Basophil% 0.3 % (0-1); Eosinophil# 0.04 X10^3/uL; Eosinophils% 0.4 % (0-5); Hematocrit 35.6 % (37-47); Hemoglobin 11.2 g/dL (12.0-15.0); Lymphocyte # 2.38 X10^3/ul (0.83-4.51); Lymphocyte % 22.2 % (19-41); Mean Corp Hgb Conc 31.5 g/dL (32-36); Mean Corpuscular Hgb 28.1 pg (27.0-32.0); Mean Corpuscular Volume 89.4 fL (81-99); Mean Platelet Vol. 11.2 fl (6.2-12.0); Monocyte# 0.73 X10^3/uL; Monocyte% 6.8 % (0-10); NRBC Flagged by Analyzer 0 % (0-5); Neutrophil # 7.48 X10^3/uL (2.7-7.7); Neutrophil % 69.7 % (47-70); Platelet Count 346 K/mm3 (150-450); RBC Distribution Width SD 49.6 fl (35.1-43.9); Red Blood Count 3.98 M/mm3 (4.2-5.4); White Blood Count 10.7 K/mm3 (4.4-11.0)
[2024-12-06 14:23] LABS: ALB/GLOB Ratio 1.5 RATIO (0.9-2.4); AST(SGOT) 15 U/L (<=31); Alanine Aminotransfer ALT/SGPT 7 U/L (<=34); Alkaline Phosphatase 87 U/L (35-104); Anion Gap 12 (5-15); BUN 13 mg/dL (4-19); BUN/Creat Ratio 14.7 RATIO (10-20); Calcium,Total 8.9 mg/dL (7.6-11.0); Carbon Dioxide 21.2 mmol/L (21.0-32.0); Chloride 104 mmol/L (98-108); Creatinine, Serum 0.87 mg/dL (0.70-1.20); EST Glomerular Filtration Rate 73 (>60); Globulin 2.7 g/dL (2.2-4.2); Glucose 78 mg/dL (70-99); Potassium 4.3 mmol/L (3.3-5.1); Protein, Total 6.6 g/dL (5.9-8.4); Sodium Level 136 mmol/L (133-145); Total Bilirubin 0.23 mg/dL (0.00-1.30)
== END | disposition home or self-care (01) ==
LOC: MTLAB 07:50
PROVIDERS: PCP Family Medicine; Referring Provider Internal Medicine Rheumatology; Visit Provider Internal Medicine Rheumatology
DX: M06.09 Rheumatoid arthritis without rheumatoid factor, multiple sites (principal); M79.7 Fibromyalgia; Z79.899 Other long term (current) drug therapy
CPT/HCPCS: 36415; 80053; 85025

== ENCOUNTER → 2024-12-07 | Outpatient (CLI) | payer MEDICARE, SELFPAY ==
--- OUTSIDE RECORDS SUMMARY | 2024-12-07 12:43 | XMS RPT_ITS | CCD ---
Author Organization [facility] Care Team Providers Care Drug Worker Name Role Phone Kiara Giang Unavailable Kiara Giang Unavailable Mikayla Strange MD Primary Care Provider Dr. Mikayla Strange Primary Care Provider Dr. Mikayla Strange Referring Provider Dr. Mikayla Strange Other Provider Dr. Mati Magallon Attending Provider Mikayla Strange MD Primary Care Provider Mikayla Strange MD Primary Care Provider Mikayla Strange MD Primary Care Provider Mikayla Strange MD Primary Care Provider Haagen CHAINSTITCH FELLED SEAM OPERATOR.INSPECTOR AND HAND PACKAGER, Sayda Unavailable Suppan CHAINSTITCH FELLED SEAM OPERATOR.INSPECTOR AND HAND PACKAGER, Ginger A Unavailable Suppan CHAINSTITCH FELLED SEAM OPERATOR.INSPECTOR AND HAND PACKAGER, Ginger A Unavailable [phone] Suppan CHAINSTITCH FELLED SEAM OPERATOR.INSPECTOR AND HAND PACKAGER, Ginger A Unavailable Dr. Mikayla Strange MD Primary Care Provider Dr. Rafael Martines DO Attending Provider Dr. Rafael Martines DO Emergency Provider Dr. Eliel Andujar MD Attending Provider [phone] Dr. Rafael Martines DO Referring Provider Cielo SARGENT, Dr. Ordoñez Attending Provider Cielo SARGENT, Dr. Ordoñez Referring Provider Rosaline SARGENT, Sydni Sullivan Attending Provider Rosaline SARGENT, Sydin Sullivan Referring Provider Hunter SARGENT, Dr. Hernandez Primary Care Provider Rosaline SARGENT, Sydni Sullivan Attending Provider Rosaline SARGENT, Sydni Sullivan Referring Provider Sylvia SARGENT, Dr. Jeffery Attending Provider Sylvia SARGENT, Dr. Jeffery Referring Provider Hunter SARGENT, Dr. Hernandez Primary Care Provider Cielo SARGENT, Dr. Ordoñez Attending Provider Cielo SARGENT, Dr. Ordoñez Referring Provider Hunter SARGENT, Dr. Hernandez Referring Provider Dr. Martir Carlin DO Attending Provider Sherita SARGENT, Dr. Thorne Attending Provider Kadi Brush Attending Provider HUNTER, MIKAYLA J Primary Care Unavailable RICKEY CROW Attending Unavailable SYDNI WAGGONER Consulting Unavailable GA BLACKBURN Attending Unavailable HUNTER, MIKAYLA Valencia Primary Care Unavailable SYDNI WAGGONER Attending Unavailable HUNTER, MIKAYLA Valencia Primary Care Unavailable SYDNI WAGGONER Attending Unavailable HUNTER, MIKAYLA Valencia Primary Care Unavailable SYDNI WAGGONER Attending Unavailable HUNTER, MIKAYLA J Primary Care Unavailable HUNTER, MIKAYLA J Primary Care Unavailable SYDNI WAGGONER Admitting Unavailable SYDNI WAGGONER Attending Unavailable SYDNI WAGGONER Referring Unavailable HUNTER, MIKAYLA Valencia Primary Care Unavailable HUNTER, MIKAYLA Valencia Primary Care Unavailable HUNTER, MIKAYLA J Referring Unavailable HUNTER, MIKAYLA J Primary Care Unavailable HUNTER, MIKAYLA J Attending Unavailable HUNTER, MIKAYLA J Primary Care Unavailable HUNTER, MIKAYLA J Attending Unavailable HUNTER, MIKAYLA J Primary Care Unavailable HUNTER, MIKAYLA J Primary Care Unavailable HUNTER, MIKAYLA J Attending Unavailable HUNTER, MIKAYLA J Primary Care Unavailable HUNTER, MIKAYLA J Referring Unavailable HUNTER, MIKAYLA J Primary Care Unavailable SAYDA CARR Attending Unavailable HUNTER, MIKAYLA J Primary Care Unavailable HUNTER, MIKAYLA J Referring Unavailable HUNTER, MIKAYLA J Primary Care Unavailable HUNTER, MIKAYLA J Referring Unavailable HUNTER, MIKAYLA J Primary Care Unavailable KD STOCKTON Attending Unavailable HUNTER, MIKAYLA J Primary Care Unavailable HUNTER, MIKAYLA J Referring Unavailable HUNTER, IMKAYLA J Primary Care Unavailable HUNTER, MIKAYLA J Referring Unavailable HUNTER, MIKAYLA J Referring Unavailable HUNTER, MIKAYLA J Primary Care Unavailable HUNTER, MIKAYLA J Attending Unavailable HUNTER, MIKAYLA J Primary Care Unavailable HUNTER, MIKAYLA J Primary Care Unavailable [place], Mikayla Primary Care Unavailable Eliel Elise Attending Unavailable Familialanstu, Smita Attending Unavailable Vellanstu, Smita Referring Unavailable [place], Mikayla Primary Care Unavailable [place], Mikayla Primary Care Unavailable Mati Magallon Attending Unavailable Rafael Martines Referring Unavailabl e Eliel Andujar Attending Unavailable [place], Mikayla Primary Care Unavailable [place], Mikayla Primary Care Unavailable [place], Mikayla Referring Unavailable Martir Carlin Attending Unavailable [place], Mikayla Primary Care Unavailable Mati Magallon Attending Unavailable Kadi Gonzalez Attending Unavailable [facility] Primary Care Unavailable [place], Mikayla Referring Unavailable Basali, Latia Referring Unavailable Basali, Latia Attending Unavailable [facility] Primary Care Unavailable Basali, Ayman Referring Unavailable Basali, Latia Attending Unavailable [facility] Primary Care Unavailable Vellanki, Smita Referring Unavailable Familialanstu, Smita Attending Unavailable [facility] Primary Care Unavailable Basali, Latia Attending Unavailable [facility] Primary Care Unavailable Basali, Ayman Referring Unavailable Rafael Martines Attending Unavailabl e [facility] Primary Care Unavailable Vellanki, Smita Referring Unavailable Familialanki, Smita Attending Unavailable [facility] Primary Care Unavailable Kadi Gonzalez Referring Unavailable Kadi Gonzalez Attending Unavailable [facility] Primary Care Unavailable Vellanki, Smita Referring Unavailable Familialanki, Smita Attending Unavailable [facility] Primary Care Unavailable Sydni Waggoner Referring Unavaila ble Sydni Waggoner Attending Unavaila ble [facility] Primary Care Unavailable Allergies Allergy Classification Reported Allergen(s) Allergy Type Date of Onset Reaction(s) Facility Acetaminophen / HYDROcodone (1 source) Acetaminophen / HYDROcodone Drug Allergy [address] [facility] adalimumab (1 source) adalimumab Drug Allergy Intolerance [facility] Amoxicillin / Clavulanate (1 source) Amoxicillin / Clavulanate Drug Allergy Intolerance [facility] Anticholinergics (1 source) Dicyclomine Drug Allergy [address] [facility] Cephalosporins (antibiotic) (1 source) Cefaclor Drug Allergy Intolerance [facility] Colestipol (1 source) Colestipol Drug Allergy Other: See Comments [facility] Doxepin (1 source) Doxepin Drug Allergy Intolerance [facility] Doxycycline (1 source) Doxycycline Drug Allergy Intolerance [facility] fexofenadine (1 source) fexofenadine Drug Allergy Intolerance [facility] Hydroxychloroquine (1 source) Hydroxychloroquine Drug Allergy Intolerance [facility] Macrolides (antibiotic) (1 source) Clarithromycin Drug Allergy Intolerance [facility] metFORMIN (1 source) metFORMIN Drug Allergy 0[address] [facility] Work Phone: NSAIDs (1 source) celecoxib Drug Allergy Intolerance [facility] Opioid Agonists (1 source) fentaNYL Drug Allergy Intolerance [facility] Prochlorperazine (1 source) Prochlorperazine Drug Allergy Intolerance [facility] Quinolones (antibiotic) (1 source) levoFLOXacin Drug Allergy Intolerance [facility] Sulfamethoxazole / Trimethoprim (1 source) Sulfamethoxazole / Trimethoprim Drug Allergy Intolerance [facility] Sulfonamides (antibiotic) (1 source) Sulfonamides (Antibiotic) Drug Allergy [address] [facility] Terfenadine (1 source) Terfenadine Drug Allergy [address] [facility] (2 sources) acetaminophen / HYDROcodone drug allergy 013 [facility] Work Phone: (2 sources) amoxicillin / clavulanate drug allergy 017 [facility] Work Phone: (4 sources) cefaclor; Translations: [CEFACLOR] drug allergy 015 [facility] Work Phone: (2 sources) clarithromycin drug allergy [facility] Work Phone: (2 sources) doxycycline drug allergy [facility] Work Phone: (2 sources) fexofenadine drug allergy [facility] Work Phone: [phone] (2 sources) levoFLOXacin drug allergy [facility] Work Phone: [phone] (2 sources) prochlorperazine drug allergy [facility] Work Phone: [phone] (4 sources) sulfamethoxazole / trimethoprim; Translations: [SULFAMETHOXAZOLE-TR IMETHOPRIM] drug allergy 015 [facility] Work Phone: (2 sources) sulfamethoxazole / trimethoprim drug allergy [facility] Work Phone: (2 sources) Sulfonamides (Antibiotic) drug allergy [facility] Work Phone: (20 sources) terfenadine; Translations: [SELDANE] drug allergy Intolerance [facility] Work Phone: (4 sources) TRINILIN; Translations: [TRINILIN] food allergy [facility] Work Phone: (2 sources) DOXEPINE drug allergy [facility] Work Phone: (2 sources) TRINALIN; Translations: [TRINALIN] food allergy [facility] Work Phone: (2 sources) 12 HOUR DECONGESTANT drug allergy 017 [facility] Work Phone: [phone] (20 sources) Acetaminophen / HYDROcodone; Translations: [HYDROCODONE-ACETAMI NOPHEN] Drug Allergy Intolerance [facility] Work Phone: (20 sources) adalimumab; Translations: [ADALIMUMAB] Drug Allergy Intolerance [facility] Work Phone: (20 sources) Amoxicillin / Clavulanate; Translations: [AMOXICILLIN-POT CLAVULANATE] Drug Allergy Intolerance [facility] Work Phone: (20 sources) Cefaclor Drug Allergy Intolerance [facility] Work Phone: (20 sources) celecoxib; Translations: [CELECOXIB] Drug Allergy Intolerance [facility] Work Phone: (20 sources) Clarithromycin; Translations: [CLARITHROMYCIN] Drug Allergy Intolerance [facility] Work Phone: (20 sources) Colestipol; Translations: [COLESTIPOL] Drug Allergy 015 Other: See Comments [facility] Work Phone: (20 sources) Dicyclomine; Translations: [DICYCLOMINE HCL] Drug Allergy GI Upset [facility] (20 sources) Doxepin; Translations: [DOXEPIN] Drug Allergy Intolerance [facility] Work Phone: (20 sources) Doxycycline; Translations: [DOXYCYCLINE CALCIUM] Drug Allergy Intolerance [facility] Work Phone: (20 sources) fentaNYL; Translations: [FENTANYL] Drug Allergy Intolerance [facility] Work Phone: (20 sources) fexofenadine; Translations: [FEXOFENADINE HCL] Drug Allergy Intolerance [facility] Work Phone: (20 sources) Hydroxychloroquine; Translations: [HYDROXYCHLOROQUINE SULFATE] Drug Allergy Intolerance [facility] Work Phone: (20 sources) levoFLOXacin; Translations: [LEVOFLOXACIN] Drug Allergy Intolerance [facility] Work Phone: (20 sources) Prochlorperazine; Translations: [PROCHLORPERAZINE EDISYLATE] Drug Allergy Intolerance, Other: See Comments [facility] Work Phone: (20 sources) Sulfamethoxazole / Trimethoprim Drug Allergy Intolerance [facility] Work Phone: (20 sources) Sulfonamides (Antibiotic); Translations: [SULFA (SULFONAMIDE ANTIBIOTICS)] Drug Allergy Intolerance [facility] Work Phone: (18 sources) Doxycycline; Translations: [doxycycline hyclate] Drug Allergy 018 Unknown [facility] (18 sources) Doxycycline; Translations: [doxycycline monohydrate] Drug Allergy 018 Unknown [facility] (17 sources) Doxycycline Drug Allergy 019 Nausea [facility] (17 sources) golimumab Drug Allergy Other [facility] Comment on above: PALPITATIONS (18 sources) HYDROcodone; Translations: [hydrocodone bitartrate] Drug Allergy 018 Unknown [facility] (17 sources) HYDROcodone Drug Allergy 018 Vomiting [facility] (17 sources) Hydroxychloroquine Drug Allergy 018 Shortness of breath [facility] (17 sources) leflunomide Drug Allergy 018 Other [facility] Comment on above: FACE TWITCHING (17 sources) Methotrexate Drug Allergy 018 Upset Stomach [facility] (17 sources) Prochlorperazine Drug Allergy 019 Shortness of breath [facility] (18 sources) Prochlorperazine; Translations: [prochlorperazine maleate] Drug Allergy 018 Shortness of breath [facility] (17 sources) Sulfamethoxazole Drug Allergy Unknown [facility] (17 sources) Terfenadine Drug Allergy Unknown [facility] (17 sources) traZODone Drug Allergy Other [facility] Comment on above: HYPOTENSION, difficu lty swallowing (17 sources) Trimethoprim Drug Allergy Unknown [facility] (8 sources) TRINILLIN Allergy to substance Unknown [facility] (14 sources) Sulfonamides (Antibiotic) Propensity to adverse reactions Vomiting [facility] (20 sources) metFORMIN; Translations: [METFORMIN] Drug Allergy GI Upset [facility] (1 source) adalimumab Drug Allergy [facility] Repository (1 source) Cefaclor Drug Allergy [facility] Repository (1 source) celecoxib Drug Allergy [facility] Repository (1 source) Clarithromycin Drug Allergy [facility] Repository (1 source) Colestipol Drug Allergy [facility] Repository (1 source) Dicyclomine Drug Allergy [facility] Repository (1 source) Doxepin Drug Allergy [facility] Repository (1 source) Doxycycline Drug Allergy [facility] Repository (1 source) Doxycycline Drug Allergy [facility] Repository (1 source) fentaNYL Drug Allergy [facility] Repository (1 source) fexofenadine Drug Allergy [facility] Repository (1 source) golimumab Drug Allergy [facility] Repository (1 source) HYDROcodone Drug Allergy [facility] Repository (1 source) Hydroxychloroquine Drug Allergy [facility] Repository (1 source) Hydroxychloroquine Drug Allergy [facility] Repository (1 source) leflunomide Drug Allergy [facility] Repository (1 source) levoFLOXacin Drug Allergy [facility] Repository (1 source) Methotrexate Drug Allergy [facility] Repository (1 source) Prochlorperazine Drug Allergy [facility] Repository (1 source) Prochlorperazine Drug Allergy [facility] Repository (1 source) Sulfamethoxazole Drug Allergy [facility] Repository (1 source) Sulfonamides (Antibiotic) Drug allergy (disorder) [facility] Repository (1 source) Terfenadine Drug Allergy [facility] Repository (1 source) traZODone Drug Allergy [facility] Repository (1 source) Trimethoprim Drug Allergy [facility] Repository Medications Current Medications Medication [...] above: Take 1 tablet by agnes th three times daily. TAKE 1 TABLET BY AGNES TH TWICE DAILY FOR 17 DAYS 1 tablet three times daily as needed. amitriptyline hydrochloride 10 mg oral tablet (20 sources) Tricyclic Antidepressant Start: 020 take 1 tablet by mouth once daily at bedtime amitriptyline (ELAVIL) 10 mg tablet Indications: DDD (degenerative disc disease), lumbar Take 1 tablet by mouth daily at bedtime. 02/25/2020 Active Comment on above: Take 1 tablet by agnes th daily at bedtime. atorvastatin 10 mg oral tablet (20 sources) HMG-CoA Reductase Inhibitor Start: 014 End: 024 take 1 tablet by mouth once daily atorvastatin (LIPITOR) 10 mg tablet Take 1 tablet by mouth once daily. 90 tablet 3 02/05/2024 Active Comment on above: Take 1 tablet by agnes th once daily. 168 hr buprenorphine 0.02 mg/hr transdermal system (20 sources) Partial Opioid Agonist Start: 024 buprenorphine (BUTRANS) 20 mcg/hour transdermal patch Indications: [...] MCG /HR PTWK change once weekly BUPRENORPHINE [id number] Kiara Giang Start: 04-11-2014 BUTRANS 20 MCG /HR PTWK change once weekly BUPRENORPHINE [id number] Kiara Giang Comment on above: Apply 1 Patch [...] Comment on above: [facility] calcium polycarbophil (20 sources) CALCIUM POLYCARB OPHIL (FIBER LAXATIVE ORAL) Take by mouth. Active CALCIUM POLYCARB OPHIL (FIBER LAXATIVE ORAL) Take by mouth. 0 Active Comment on above: Take by mouth. cephalexin 500 mg oral capsule (10 sources) Cephalosporin Antibacterial Start: 5 End: take 1 capsule by mouth four times [...] 20 MG TABS as directed CITALOPRAM HYDROBROMIDE [id number] Kiara Edgardo Giang take 1 tablet by agnes th twice daily CELEXA 40 MG TABS One tablet by mouth twice daily CITALOPRAM HYDROBROMIDE [id number] Jaime Wakefield Michael Comment on above: Take 1 tablet by agens once daily. estradiol 0.1 mg/ml vaginal cream (20 sources) Estrogen Start: 04-09-2024 End: 11-29-2024 estradiol (ESTRACE) 0.01 % (0.1 mg/gram) vaginal cream Indications: Atrophic vaginitis Use 3 g vaginally once daily. 42.5 g 2 11/29/2024 Active gabapentin 300 mg oral capsule (20 sources) Anti-epileptic Agent Start: 11-29-2024 End: 12-29-2024 take 5 capsules by mouth once daily at bedtime gabapentin (NEURONTIN) 300 mg capsule Take 5 capsules by mouth daily at bedtime for 30 days. 150 capsule 11/29/2024 12/29/2024 Active Start: 03-25-2020 End: 11-29-2024 take 3 capsules by mouth once daily Gabapentin 300 mg capsule Active 900 mg PO DAILY March 25, 2020 12:00am Start: 02-25-2020 gabapentin (NE URONTIN) 300 mg capsule Take 300 mg by mouth. 900 mg (3 tabs) a.m, 600 mg (2 tabs) p.m 02/25/2020 Active Start: 02-25-2020 take 5 tablets by mo [facility] once daily gabapentin (NEURONTIN) 300 mg capsule Take 300 mg by mouth. 5 tabs daily 0 02/25/2020 Active Start: 05-14-2014 End: 02-11-2019 take 1 capsule by mouth five times daily Gabapentin 300 MG capsule Discontinued 300 mg PO 5 TIMES DAILY May 14, 2014 1:00am February 11, 2019 1:28pm Start: 04-11-2014 take 5 capsules by m [facility] once daily, then take 2 capsules by mouth at bedtime GABAPENTIN 300 MG CAPS 5 capsules daily by mouth (2 at bedtime) GABAPENTIN [id number] Kiara Giang Comment on above: Take 1 capsule by mo uth four times daily. hyoscyamine sulfate 0.125 mg sublingual tablet (20 sources) Start: 09-21-2016 LEVSIN 0.125 MG TABS as directed HYOSCYAMINE SULFATE [id number] Kiara Giang Start: 04-20-2016 End: 08-08-2024 take [...] (20 sources) Angiotensin Converting Enzyme Inhibitor Start: End: take 1 tablet by mouth once [...] MG TA BS as directed ONDANSETRON HCL [id number] Kiara N Padmaja Start: 09-21-2016 ZOFRAN 8 MG TA BS as directed ONDANSETRON HCL [id number] Kiara N Padmaja Start: 04-24-2014 End: 04-30-2014 take 4 mg [...] times daily as needed ONDANSETRON HCL TABS [id number] Kiara Giang polyethylene glycol 3350 33353 mg powder for oral solution (20 sources) [...] PACK a s directed POLYETHYLENE GLYCOL 3350 [id number] Kiara Giang predniSONE 10 mg oral tablet (20 sources) Start: 05-14-2014 Prednisone 10 MG tablet Active 10 mg PO NEEDED as needed for flare up May 14, 2014 1:00am take for 3-5 days for RA flare Start: 04-11-2014 PREDNISONE 10 MG TABS 1 tab 3-5 days with flarre up PREDNISONE [id number] Kiara Giang Comment on above: Take 1 tablet by agnes as needed for Pain. promethazine hydrochloride 25 [...] sources) Serotonin-1b and Serotonin-1d Receptor Agonist Start: 4 End: 4 SUMAtriptan (IMITREX) 50 mg tablet Indications: Migraine without aura, intractable, without status migrainosus Take 1 tablet (50 mg) by mouth as needed. 9 tablet 3 08/15/2023 Active Comment on above: Take 1 tablet by agnes th as needed. Take 1 tablet (50 mg ) by mouth as needed. 24 hr upadacitinib 15 mg extended release oral tablet (17 sources) Start: 0 take 1 tablet by [...] Comment on above: TAKE 1 CAPSULE BY MO UT TWICE DAILY FOR 28 DAYS ADALIMUMAB (2 sources) Tumor Necrosis Factor Paramjit Start: 09-21-2016 HUMIRA 10 MG/0.2ML PSKT as directed ADALIMUMAB [id number] Kiara Giang Start: 09-21-2016 HUMIRA 10 MG/0 .2ML PSKT as directed ADALIMUMAB [id number] Kiara Giang ALPRAZolam 0.25 mg disintegrating oral tablet (2 sources) Benzodiazepine Start: 09-21-2016 ALPRAZOLAM 0.25 MG TBDP disintegrating, take 1 oral daily ALPRAZOLAM [id number] Kiara Giang amLODIPine 5 mg oral tablet (17 sources) Dihydropyridine Calcium Channel Paramjit Start: 02-11-2019 End: 03-25-2020 take 1 tablet by mouth once daily Amlodipine 5 MG tablet Discontinued 5 mg PO DAILY February 11, 2019 12:00am March 25, 2020 1:18pm [id number] ASC-C (2 sources) Osmotic Laxative, Vitamin C Start: 09-26-2012 End: 09-27-2012 MOVIPREP 100 GM SOLR use as per instructions [id number]- NA ASC-C [id number] Gwen Blakely Start: 09-26-2012 End: 09-27-2012 MOVIPREP 100 GM SOLR use as per instructions [id number] ASC-C [id number] Gwen Blakely betamethasone 0.5 mg/ml / clotrimazole [...] 10 MG TABS as directed CETIRIZINE HCL [id number] Kiara Giang Comment on above: Take by mouth. clindamycin 150 mg oral capsule (3 sources) Lincosamide Antibacterial Start: 03-04-20 End: 09-18-19 take 1 capsule by mouth four times daily clindamycin (CLEOCIN) 150 mg capsule Take 1 capsule by mouth four times daily. 40 capsule 0 03/04/2021 09/17/2021 Discontinued Start: 06-02-2014 take 1 capsule by [facility] twice daily CLINDAMYCIN HCL 300 MG CAPS 1 po bid CLINDAMYCIN HCL [id number] Sydni Campos Comment on above: Take 1 capsule by [facility] four times daily. clonazePAM 0.5 mg disintegrating oral tablet (2 sources) Benzodiazepine take 1 tablet by mouth twice daily CLONAZEPAM 0.5 MG TBDP One tablet by mouth twice daily CLONAZEPAM [id number] Jaime [place] Michael COLESTIPOL HCL (2 sources) Bile Acid Sequestrant Start: 09-22-19 COLESTID 1 GM TABS as directed COLESTIPOL HCL [id number] Kiara Giang Start: 09-21-2016 COLESTID 1 GM TABS as directed COLESTIPOL HCL [id number] Kiara Giang cyclobenzaprine hydrochloride 10 mg oral tablet (20 sources) Muscle Relaxant Start: 05-14-2014 End: 11-11-2024 take 1 tablet by mouth three times daily Cyclobenzaprine 10 MG tablet Discontinued 10 mg PO THREE TIMES A DAY May 14, 2014 1:00am November 11, 2024 1:27pm Start: 04-07-2014 take 1 tablet by agnes twice daily CYCLOBENZAPRINE HCL 10 MG TABS One tablet by mouth twice daily CYCLOBENZAPRINE HCL [id number] Sydni Campos Comment on above: Take 10 mg by mouth three times daily as needed. docusate sodium 100 mg oral tablet (20 sources) Start: 09-21-2016 take 1 tablet by mouth once daily COLACE 100 MG CAPS One tablet by mouth daily DOCUSATE SODIUM [id number] Kiara Giang Start: 09-21-2016 take 1 tablet by agnes once daily COLACE 100 MG CAPS One tablet by mouth daily DOCUSATE SODIUM [id number] Kiara N Giang take 1 capsule by [facility] twice daily docusate sodium (COLACE) 100 mg capsule Take 100 mg by mouth twice daily. Active Comment on above: Take 100 mg by mouth twice daily. 72 hr fentaNYL 0.075 mg/hr transdermal system (17 sources) Opioid Agonist Start: 04-24-2014 End: 04-30-2014 Fentanyl 75 MCG patch Discontinued 75 ug TRANSDERM. Q72H April 24, 2014 12:00am April 30, 2014 3:49pm Fiber (2 sources) Start: 09-21-2016 take 1 tablet by mouth once daily FIBER SELECT GUMMIES CHEW One tablet by mouth daily FIBER [id number] Kiara N Giang Folic Acid (2 sources) Start: 04-11-2014 take 1 tablet by mouth twice daily FOLIC ACID TABS One tablet by mouth twice daily FOLIC ACID TABS [id number] Kiara N Giang furosemide 20 mg oral tablet (4 sources) Loop Diuretic Start: 09-21-2016 take 1 tablet by mouth once daily FUROSEMIDE 20 MG TABS One tablet by mouth daily FUROSEMIDE [id number] Kiara N Giang GOLIMUMAB (2 sources) Tumor Necrosis Factor Paramjit Start: 09-21-2016 SIMPONI 50 MG/0.5ML SOAJ syringe subcutaneous one/ month GOLIMUMAB [id number] Kiara N Giang Start: 09-21-2016 SIMPONI 50 MG/ 0.5ML SOAJ syringe subcutaneous one/ month GOLIMUMAB [id number] Kiara N Giang 1 ml HYDROmorphone hydrochloride 1 mg/ml prefilled syringe (17 sources) Opioid Agonist Start: 04-24-2014 End: 04-30-2014 take 1-2 mg intravenously every two hours as needed for pain Hydromorphone 1 MG/ML syringe Discontinued 1 - 2 mg IV EVERY 2 HOURS NEEDED as needed for Pain April 24, 2014 12:00am April 30, 2014 3:49pm LATANOPROST (20 sources) Prostaglandin Analog Start: 09-21-2016 XALATAN 0.005 % SOLN as directed LATANOPROST [id number] Kiara Giang Start: 09-21-2016 XALATAN 0.005 % SOLN as directed LATANOPROST [id number] Kiara Giang Start: 05-14-2014 Latanoprost 1 DROP bottle Active 1 NMA EACH EYE AT BEDTIME May 14, 2014 1:00am Start: 05-14-2014 Latanoprost Ac tive 1 DRP EACH EYE AT BEDTIME May 14, 2014 12:00am Start: 04-11-2014 take 1 drop(s) into the eye(s) at bedtime LATANOPROST 0.005 % SOLN 1 drop in eyes at bedtime LATANOPROST [id number] Kiara Giang take 1 drop(s) into the eye(s) once daily at bedtime latanoprost (XALATAN) 0.005 % ophthalmic solution 1 Drop daily at bedtime. Active Comment on above: 1 Drop daily at bedt garo. LEUCOVORIN CALCIUM TABS (2 sources) Folate Analog Start: 04-11-20 14 take 3 tablets by mouth every week LEUCOVORIN CALCIUM TABS 3 tabs by mouth once a week LEUCOVORIN CALCIUM TABS [id number] Kiara Edgardo Giang loperamide hydrochloride 2 mg oral capsule (17 sources) Opioid Agonist Start: 12-21-19 18 End: 03-25-20 20 take 1 capsule by mouth every four hours as needed for diarrhea Loperamide 2 MG capsule Discontinued 2 mg PO EVERY 4 HOURS NEEDED as needed for Diarrhea December 20, 2017 12:00am March 25, 2020 1:27pm meloxicam 7.5 mg oral tablet (20 sources) Nonsteroidal Anti-inflammatory Drug Start: 12-21-19 18 End: 10-26-19 23 take 1 tablet by mouth once daily Meloxicam 7.5 MG tablet Discontinued 7.5 mg PO DAILY December 20, 2017 12:00am March 25, 2020 1:19pm take 1 tablet by mouth once alice y MELOXICAM 15 MG TABS One tablet by mouth daily MELOXICAM [id number] Jaime Rodriguez Comment on above: Take 7.5 [...] 8 tabs once a week METHOTREXATE SODIUM [id number] Sydni Campos 1 ml morphine sulfate 2 mg/ml prefilled syringe (17 sources) Opioid Agonist Start: 2013 End: 2013 [...] 10 mL injection (DEFINITY) polyethylene glycol 3350 348798 mg / potassium chloride 2970 mg / sodium bicarbonate 6740 mg / sodium chloride 5860 mg / sodium sulfate 27733 mg powder for oral solution (1 source) [...] MIRALAX PACK as directed POLYETHYLENE GLYCOL 3350 [id number] Kiara Giang regadenoson (LEXISCAN) 0.4 mg/5 mL [...] mg / trimethoprim 160 mg oral tablet (10 sources) Dihydrofolate Reductase Inhibitor Antibacterial, Sulfonamide Antimicrobial [...] tablet by mouth twice daily TRAMADOL HCL [id number] Jaime Rodriguez zolpidem tartrate 10 mg oral tablet (20 [...] paroxysmal anxiety]] Onset: 05-11-2019 Chronic Cardiac dysrhythmias (17 sources) Palpitations; Translations: [Palpitations] 02-11-2019 Episodic Chronic kidney disease (20 sources) Chronic kidney disease stage 3; Translations: [Stage 3 chronic kidney disease, unspecified whether stage 3a or 3b CKD (HCC)] Onset: 10-25-2022 Chronic Chronic kidney disease (1 source) Chronic kidney disease; Translations: [Stage 3 chronic kidney disease, unspecified whether stage 3a or 3b CKD (HCC)] Onset: 10-25-2022 Deficiency and other anemia (4 sources) Anemia; Translations: [Anemia, unspecified] Episodic Deficiency and other anemia (1 source) Anemia, unspecified; Translations: [Anemia, unspecified type] Onset: 11-29-2024 Episodic Delirium, dementia, and amnestic and other cognitive disorders (1 source) Unspecified mental disorder due to known physiological condition; Translations: [Mild cognitive disorder] Onset: 11-29-2024 Chronic Diabetes mellitus with complications (19 sources) Disorder of nervous system due to [...] hyperlipidemia] Onset: 05-11-2019 Chronic E Codes: Fall (7 sources) Fall; Translations: [Unspecified fall, initial encounter] [...] status migrainosus] Onset: 05-11-2019 Chronic Menopausal disorders (3 sources) Atrophic vaginitis; Translations: [Postmenopausal atrophic vaginitis] Onset: 11-29-2024 04-09-2024 Chronic Miscellaneous mental health disorders (20 sources) Chronic insomnia; Translations: [Psychophysiologic insomnia] Onset: 05-11-2019 05-11-2019 Chronic Mood disorders (19 sources) Depressive disorder; Translations: [Depression] Onset: 11-29-2024 02-11-2019 Chronic Nonspecific chest pain (18 sources) Chest pain; Translations: [Chest pain, unspecified] 02-11-2019 Episodic Nutritional deficiencies (2 sources) Undernutrition; Translations: [Mild protein-calorie malnutrition] Onset: 01-05-2024 01-05-2024 Chronic Osteoarthritis (20 sources) Osteoarthritis of knee; Translations: [Inflammation of joint of foot] Onset: 04-07-2014 04-07-2014 Chronic Other acquired deformities (2 sources) Lumbar spondylolisthesis; Translations: [Spondylolisthesis, lumbar region] 11-21-2024 Episodic Other acquired deformities (1 source) Spondylolisthesis, lumbar region; Translations: [Spondylolisthesis, lumbar region] Onset: 12-04-2024 Episodic Other connective tissue disease (5 sources) Pain [...] in bowel habit] Episodic Other gastrointestinal disorders (3 sources) Diarrhea; Translations: [Diarrhea, unspecified] 05-27-2022 Episodic Other gastrointestinal disorders (1 source) Diarrhea, unspecified; Translations: [Diarrhea, unspecified type] Onset: 11-29-2024 Episodic Other hereditary and degenerative nervous system conditions (2 sources) Mild cognitive disorder ; Translations: [Unspecified mental disorder due to known physiological condition] 11-29-2024 Chronic Other injuries and conditions due to external causes (1 source) Fracture of bone; Translations: [Other injury of unspecified body region, initial encounter] 10-11-2024 Episodic Other injuries and conditions due to external causes (1 source) Other injury of unspecified body region, initial encounter; Translations: [Fracture] Onset: 10-11-2024 Episodic Other lower respiratory disease (1 source) Dyspnea; Translations: [Shortness of breath] Episodic Other nervous system disorders (20 sources) Chronic pain syndrome; Translations: [Chronic pain [...] Chronic Other nutritional; endocrine; and metabolic disorders (3 sources) Obesity caused by energy imbalance; Translations: [Morbid (severe) obesity due to excess calories] Onset: 11-29-2024 11-29-2024 Chronic Other nutritional; endocrine; and metabolic disorders (1 source) Morbid (severe) obesity due to excess calories; Translations: [Morbid (severe) obesity due to excess calories (HCC)] Onset: 11-29-2024 Chronic Other nutritional; endocrine; and metabolic disorders (2 sources) Weight loss; Translations: [Abnormal weight loss] 11-21-2023 Episodic Other screening for suspected conditions (not mental disorders or infectious disease) (20 sources) Patient encounter status; Translations: [Encounter for other screening for malignant neoplasm of breast] Onset: 05-08-2024 Episodic Other skin disorders (1 source) Disorder [...] 04-07-2014 Chronic Skin and subcutaneous tissue infections (7 sources) Cellulitis of right lower limb; Translations: [Cellulitis of right lower limb] 07-02-2024 Episodic Spondylosis; intervertebral disc disorders; other back problems (20 sources) Degeneration of lumbar intervertebral disc; Translations: [Other intervertebral disc degeneration, lumbar region] Onset: 05-11-2019 Chronic Spondylosis; intervertebral disc disorders; other back problems (20 sources) Lumbar radiculopathy; Translations: [Chronic back pain ] Onset: 09-26-2016 Resolved: 09-17-2021 09-26-2016 Episodic Substance-related disorders (1 source) Opioid dependence, uncomplicated; Translations: [Opioid dependence, uncomplicated] Onset: 12-04-2024 Chronic Unclassified (1 source) Screening for malignant neoplasm of colon ; Translations: [Encounter for screening for malignant neoplasm of colon] 09-26-2012 Unclassified (1 source) Rm 35 Onset: 05-02-2024 Unclassified (1 source) Patient encounter status 11-29-2024 Unclassified (1 source) Obesity, Class I, BMI 30-34.9; Translations: [Obesity, Class I, BMI 30-34.9] Onset: 05-03-2024 Unclassified (1 source) M48.062 - Spinal stenosis, lumbar region with neurogenic claudication,M43.16 - Spondylolisthesis, lumbar region Unclassified (1 source) Low back pain, unspecified; Translations: [Low back pain, unspecified] Onset: 11-21-2024 Past or Other Problems Problem Classification Problem Date Documented Da te Episodic/Chronic Abdominal pain (20 sources) Epigastric pain; Translations: [Epigastric pain] Onset: 07-30-2014 Resolved: 07-30-2014 Episodic Complication of device; implant or graft (1 source) Infection and inflammatory reaction due to other internal orthopedic prosthetic devices, implants and grafts, initial encounter; Translations: [Infection at site of external fixator pin, initial encounter ([facility])] Onset: 06-30-2024 Episodic Complications of surgical procedures or medical care (20 sources) Periprosthetic fracture around other internal prosthetic joint, initial encounter; Translations: [Fátima-prosthetic fracture around prosthetic joint] Onset: 05-02-2024 05-02-2024 Episodic Diabetes mellitus without complication (20 sources) Hyperglycemia; Translations: [Hyperglycemia, unspecified] Onset: 05-11-2019 Resolved: 03-12-2021 03-12-2021 Episodic Fracture of lower limb (8 sources) Fracture of patella; Translations: [Unspecified fracture of right patella, initial encounter for closed fracture] Onset: 05-27-2024 05-10-2024 Episodic Genitourinary symptoms and ill-defined conditions (9 sources) Dysuria; Translations: [Dysuria] Onset: 03-05-2024 03-09-2024 Episodic Nausea and vomiting (20 sources) [...] Abnormal weight loss; Translations: [Weight loss] Onset: 01-05-2024 Episodic Residual codes; unclassified (20 sources) At risk of delirium; Translations: [Other specified personal risk factors, not elsewhere classified] Onset: 05-08-2024 05-08-2024 Episodic Unclassified (2 sources) 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, subsequent encounter 10-21-2024 Urinary tract infections (12 sources) Urinary tract infectious disease; Translations: [Urinary tract infection, site not specified] Onset: 03-05-2024 02-20-2024 Episodic Results Test Name Value Interpretation Reference Range [facility] [id number] Normal . [facility] Comment on above: Order Comment: [id number] Result Comment: Test Ordered: [id number] Compliance Drug Analysis, Ur Specimen Comment: ToxAssure, ToxAssure FLEX or MAT drug testin Specimen Comment: -Technical component - Data analysis performed at Specimen Comment: [facility] [place], [address] Specimen Comment: [id number]. [phone]. [employer]ader Niraj Nolan MD. Summary Report (Summary) FINAL MX Reference Range: . ==== TOXASSURE COMP DRUG ANALYSIS,UR ==== Test Result Flag Units Drug Present Oxycodone 975 ng/mg creat Oxymorphone 317 ng/mg creat Noroxycodone 2185 ng/mg creat Noroxymorphone 77 ng/mg creat Sources of oxycodone are scheduled prescription medications. Oxymorphone, noroxycodone, and noroxymorphone are expected metabolites of oxycodone. Oxymorphone is also available as a scheduled prescription medication. Buprenorphine 7 ng/mg creat Sources of buprenorphine include scheduled prescription medications. Gabapentin PRESENT Amitriptyline PRESENT Nortriptyline PRESENT Nortriptyline may be administered as a prescription drug; it is also an expected metabolite of amitriptyline. Citalopram PRESENT Desmethylcitalopram PRESENT Desmethylcitalopram is an expected metabolite of citalopram or the enantiomeric form, escitalopram. Acetaminophen PRESENT Diphenhydramine PRESENT ==== Test Result Flag Units Ref Range Creatinine 171 mg/dL >=20 ==== Declared Medications: Medication list was not provided. ==== For clinical consultation, please call . ==== Performed at: [facility] [address] [place] [id number] [employer] Commodities Grader: Mariana Leonardo Phr, Phone: [phone] Performed at: [facility] [id number] Agricultural Commodities Grader: Mick Sue PhD, Phone: [phone] Performed By: #### L 500.4050, L100.0100 #### [facility] [address] [facility]. [place], [place], [address] ALBUMIN/CREATININE RATIO, UR INEon 11-29-2024 Albumin DL <= 20 mg/L (U) [Mass/Vol] mg/dL Normal [facility] Comment on above: Order Comment: Speci men Type: URINE SPECIMENOrdering Facility: [facility] Address: [address] [place] [address] Performed By: #### U ACR ####[facility] LABCLIA [id number] [place] [address] [place] Albumin/Creatinine (U) [Mass ratio] <7 Normal <30 [facility] Comment on above: Order Comment: Speci men Type: URINE SPECIMENOrdering Facility: [facility] Address: [address] [place] [address] Result Comment: Adul t Male and Female Nephrotic Criteria: <30 mg/g is considered normal to mildly increased 30-300 mg/g is considered moderately increased >300 mg/g is considered severely increased KDIGO. (2013). KDIGO 2012 Clinical Practice Guideline for the Evaluation and Management of Chronic Kidney Disease. Official Journal of the International Society of Nephrology, 3(1), 1-150. Performed By: #### U ACR ####[facility] LABCLIA [id number] [address] [place] [address] [place] Creatinine (U) [Mass/Vol] 161.0 mg/dL Normal 20.0-300.0 [facility] Comment on above: Order Comment: Speci men Type: URINE SPECIMENOrdering Facility: [facility] Address: [address] [place] [address] Performed By: #### U ACR ####[facility] LABCLIA [id number] [address] [place] [address] [place] Bacteria Ur Culton 5 Bacteria identified Cx Nom (U) ORGANISM ID: 1 10,000 -<50,000 CFU/ml Mixed microbiota No further workup Normal [facility] Comment on above: Performed By: #### 6 30-4 ####[facility] LABCLIA [id number] [address] [place] [address] [place] Basic metabolic 2000 panelon 11-29-2024 Anion gap [Moles/Vol] 14 mmol/L Normal 8-15 [facility] Comment on above: Order Comment: Speci men Type: BLOOD SPECIMENOrdering Facility: [facility] Address: [address] [place] [address] Performed By: #### 2 284-8, 77442-3, 2132-9 ####[facility] LABCLIA [id number] [address] [address] [place] Calcium [Mass/Vol] 9.3 mg/dL Normal 8.5-10.2 [facility] Comment on above: Order Comment: Speci men Type: BLOOD SPECIMENOrdering Facility: [facility] Address: [address] [place] [address] Performed By: #### 2 284-8, 77531-0, 2132-02 ####[facility] LABCLIA [id number] [address] [address] [place] Chloride [Moles/Vol] 104 mmol/L Normal 98-107 [facility] Comment on above: Order Comment: Speci men Type: BLOOD SPECIMENOrdering Facility: [facility] Address: [address] [place] [address] Performed By: #### 2 284-8, 48018-2, 2132-02 ####[facility] LABIA [id number] [address] [address] [place] CO2 [Moles/Vol] 21 mmol/L Low 22-30 [facility] Comment on above: Order Comment: Speci men Type: BLOOD SPECIMENOrdering Facility: [facility] Address: [address] [place] [address] Performed By: #### 2 284-8, 36019-0, 2132-02 ####[facility] LABIA [id number] [address] [address] [place] Creatinine [Mass/Vol] 0.90 mg/dL Normal 0.58-0.96 [facility] Comment on above: Order Comment: Speci men Type: BLOOD SPECIMENOrdering Facility: [facility] Address: [address] [place] [address] Performed By: #### 2 284-8, 67122-1, 2132-02 ####[facility] LABIA [id number] [address] [address] [place] Creatinine and Glomerular filtration rate.predicted panel (S/P/Bld) 71 mL/min/1.73m??? Normal >=60 [facility] Comment on above: Order Comment: Speci men Type: BLOOD SPECIMENOrdering Facility: [facility] Address: [address] [place] [address] Result Comment: Sienna mated Glomerular Filtration Rate [...] reflect actual GFR. Performed By: #### 2 284-8, 38669-8, 2132-02 ####[facility] LABCLIA [id number] [address] [address] [place] Glucose [Mass/Vol] 88 mg/dL Normal 74-99 [facility] Comment on above: Order Comment: Speci men Type: BLOOD SPECIMENOrdering Facility: [facility] Address: [address] [place] [address] Result Comment: The [place] Diabetes Association (ADA) provides guidance for cutoff [...] Standards of Medical Care in Diabetes 2016, [place] [employer]. Diabetes Care. 2016.39(Suppl 1). Performed By: #### 2 284-8, 32790-1, 2132-02 ####[facility] LABCLIA [id number] [address] [address] [place] Potassium [Moles/Vol] 4.2 mmol/L Normal 3.7-5.1 [facility] Comment on above: Order Comment: Speci men Type: BLOOD SPECIMENOrdering Facility: [facility] Address: [address] [place] [address] Performed By: #### 2 284-8, 88607-3, 2132-02 ####[facility] LABCLIA [id number] [place] [id number] [place] Sodium [Moles/Vol] 139 mmol/L Normal 136-144 [facility] Comment on above: Order Comment: Speci men Type: BLOOD SPECIMENOrdering Facility: [facility] Address: [address] [place] [address] Performed By: #### 2 284-8, 02719-0, 9 ####[facility] LABCLIA [id number] [place] [address] [place] Urea nitrogen [Mass/Vol] 7 mg/dL Normal 7-21 [facility] Comment on above: Order Comment: Speci men Type: BLOOD SPECIMENOrdering Facility: [facility] Address: [address] [place] [address] Performed By: #### 2 284-8, 96191-8, 9 ####[facility] LABCLIA [id number] [place] [id number] [place] CBC W Auto Differential pane l (Bld)on 11-29-2024 Basophils (Bld) [#/Vol] 0.04 10*3/uL [facility] Basophils/100 WBC (Bld) 0.4 % [facility] Differential cell count method Nom (Bld) Auto [facility] Eosinophils (Bld) [#/Vol] 0.11 10*3/uL [facility] Eosinophils/100 WBC (Bld) 1.1 % [facility] Erythrocyte distribution width (RBC) [Ratio] 15.3 % High 11.5 - 15.0 % [facility] Hematocrit (Bld) [Volume fraction] 37.9 % 36.0 - 46.0 % [facility] Hemoglobin (Bld) [Mass/Vol] 12.1 g/dL 11.5 - 15.5 g/dL [facility] Immature granulocytes (Bld) [#/Vol] 0.04 10*3/uL [facility] Immature granulocytes/100 WBC (Bld) 0.4 % [facility] Interpretation and review of laboratory results Abnormal [facility] Lymphocytes (Bld) [#/Vol] 2.19 10*3/uL [facility] Lymphocytes/100 WBC (Bld) 22.5 % [facility] MCH (RBC) [Entitic mass] 28.3 pg 26.0 - 34.[address] [facility] MCHC (RBC) [Mass/Vol] 31.9 g/dL 30.5 - 36.0 g/dL [facility] MCV (RBC) [Entitic vol] 88.8 fL 80.0 - 100.[address] [facility] Monocytes (Bld) [#/Vol] 0.6 10*3/uL [facility] Monocytes/100 WBC (Bld) 6.2 % [facility] Neutrophils (Bld) [#/Vol] 6.75 10*3/uL [facility] Neutrophils/100 WBC (Bld) 69.4 % [facility] Nucleated RBC (Bld) [#/Vol] NINF [facility] Nucleated RBC/100 WBC (Bld) [Ratio] 0 % /[address] [facility] Platelet mean volume (Bld) [Entitic vol] 11.2 fL 9.0 - 12.[address] [facility] Platelets (Bld) [#/Vol] 379 10*3/uL [facility] RBC (Bld) [#/Vol] 4.27 10*6/uL 3.90 - 5.20 m/uL [facility] WBC (Bld) [#/Vol] 9.73 10*3/uL [facility] Basophils (Bld) [#/Vol] 0.04 10*3/uL Normal <0.11 [facility] Comment on above: Order Comment: Speci men Type: BLOOD SPECIMENOrdering Facility: [facility] Address: [address] [place] [address] Performed By: #### 5 7021-8 ####[facility] LABCLIA [id number] [address] [facility] Basophils/100 WBC (Bld) 0.4 % Normal [facility] Comment on above: Order Comment: Speci men Type: BLOOD SPECIMENOrdering Facility: [facility] Address: [address] [place] [address] Performed By: #### 5 7021-8 ####[facility] LABCLIA [id number] [place] [address] [place] Differential cell count method Nom (Bld) Auto Normal [facility] Comment on above: Order Comment: Speci men Type: BLOOD SPECIMENOrdering Facility: [facility] Address: [address] [place] [address] Performed By: #### 5 7021-8 ####[facility] LABCLIA [id number] [address], [place] [address] [place] Eosinophils (Bld) [#/Vol] 0.11 10*3/uL Normal <0.46 [facility] Comment on above: Order Comment: Speci men Type: BLOOD SPECIMENOrdering Facility: [facility] Address: [address] [place] [address] Performed By: #### 5 7021-8 ####[facility] LABCLIA [id number] [place] [address] [place] Eosinophils/100 WBC (Bld) 1.1 % Normal [facility] Comment on above: Order Comment: Speci men Type: BLOOD SPECIMENOrdering Facility: [facility] Address: [address] [place] [address] Performed By: #### 5 7021-8 ####[facility] LABCLIA [id number] [place] [address] [place] Erythrocyte distribution width (RBC) [Ratio] 15.3 % High 11.5-15.0 [facility] Comment on above: Order Comment: Speci men Type: BLOOD SPECIMENOrdering Facility: [facility] Address: [address] [place] [address] Performed By: #### 5 7021-8 ####[facility] LABCLIA [id number] [place] [address] [place] Hematocrit (Bld) [Volume fraction] 37.9 % Normal 36.0-46.0 [facility] Comment on above: Order Comment: Speci men Type: BLOOD SPECIMENOrdering Facility: [facility] Address: [address] [place] [address] Performed By: #### 5 7021-8 ####[facility] LABCLIA [id number] [place] [address] [place] Hemoglobin (Bld) [Mass/Vol] 12.1 g/dL Normal 11.5-15.5 [facility] Comment on above: Order Comment: Speci men Type: BLOOD SPECIMENOrdering Facility: [facility] Address: [address] [place] [address] Performed By: #### 5 7021-8 ####[facility] LABCLIA [id number] [place] [address] [place] Immature granulocytes (Bld) [#/Vol] 0.04 10*3/uL Normal <0.10 [facility] Comment on above: Order Comment: Speci men Type: BLOOD SPECIMENOrdering Facility: [facility] Address: [address] [place] [address] Performed By: #### 5 7021-8 ####[facility] LABCLIA [id number] [place] [address] [place] Immature granulocytes/100 WBC (Bld) 0.4 % Normal [facility] Comment on above: Order Comment: Speci men Type: BLOOD SPECIMENOrdering Facility: [facility] Address: [address] [place] [address] Performed By: #### 5 7021-8 ####[facility] LABCLIA [id number] [place] [id number] [place] Lymphocytes (Bld) [#/Vol] 2.19 10*3/uL Normal 1.00-4.00 [facility] Comment on above: Order Comment: Speci men Type: BLOOD SPECIMENOrdering Facility: [facility] Address: [address] [place] [address] Performed By: #### 5 7021-8 ####[facility] LABCLIA [id number] [place] [address] [place] Lymphocytes/100 WBC (Bld) 22.5 % Normal [facility] Comment on above: Order Comment: Speci men Type: BLOOD SPECIMENOrdering Facility: [facility] Address: [address] [place] [address] Performed By: #### 5 7021-8 ####[facility] LABCLIA [id number] [place] [address] [place] MCH (RBC) [Entitic mass] 28.3 pg Normal 26.0-34.0 [facility] Comment on above: Order Comment: Speci men Type: BLOOD SPECIMENOrdering Facility: [facility] Address: [address] [place] [address] Performed By: #### 5 7021-8 ####[facility] LABIA [id number] [place] [address] [place] MCHC (RBC) [Mass/Vol] 31.9 g/dL Normal 30.5-36.0 [facility] Comment on above: Order Comment: Speci men Type: BLOOD SPECIMENOrdering Facility: [facility] Address: [address] [place] [address] Performed By: #### 5 7021-8 ####[facility] LABIA [id number] [place] [address] [place] MCV (RBC) [Entitic vol] 88.8 fL Normal 80.0-100.0 [facility] Comment on above: Order Comment: Speci men Type: BLOOD SPECIMENOrdering Facility: [facility] Address: [address] [place] [address] Performed By: #### 5 7021-8 ####[facility] LABCLIA [id number] [place] [address] [place] Monocytes (Bld) [#/Vol] 0.60 10*3/uL Normal <0.87 [facility] Comment on above: Order Comment: Speci men Type: BLOOD SPECIMENOrdering Facility: [facility] Address: [address] [place] [address] Performed By: #### 5 7021-8 ####[facility] LABCLIA [id number] [place] [id number] [place] Monocytes/100 WBC (Bld) 6.2 % Normal [facility] Comment on above: Order Comment: Speci men Type: BLOOD SPECIMENOrdering Facility: [facility] Address: [address] [place] [address] Performed By: #### 5 7021-8 ####[facility] LABIA [id number] [place] [address] [place] Neutrophils (Bld) [#/Vol] 6.75 10*3/uL Normal 1.45-7.50 [facility] Comment on above: Order Comment: Speci men Type: BLOOD SPECIMENOrdering Facility: [facility] Address: [address] [place] [address] Performed By: #### 5 7021-8 ####[facility] LABCLIA [id number] [place] [address] [place] Neutrophils/100 WBC (Bld) 69.4 % Normal [facility] Comment on above: Order Comment: Speci men Type: BLOOD SPECIMENOrdering Facility: [facility] Address: [address] [place] [address] Performed By: #### 5 7021-8 ####[facility] LABCLIA [id number] [place] [id number] [place] Nucleated RBC (Bld) [#/Vol] 10*3/uL Normal <0.01 [facility] Comment on above: Order Comment: Speci men Type: BLOOD SPECIMENOrdering Facility: [facility] Address: [address] [place] [address] Performed By: #### 5 7021-8 ####[facility] LABCLIA [id number] [address] [place] [address] [place] Nucleated RBC/100 WBC (Bld) [Ratio] 0.0 /100 WBC Normal [facility] Comment on above: Order Comment: Speci men Type: BLOOD SPECIMENOrdering Facility: [facility] Address: [address] [place] [address] Performed By: #### 5 7021-8 ####[facility] LABIA [id number] [address], [facility] [place] Platelet mean volume (Bld) [Entitic vol] 11.2 fL Normal 9.0-12.7 [facility] Comment on above: Order Comment: Speci men Type: BLOOD SPECIMENOrdering Facility: [facility] Address: [address] [place] [address] Performed By: #### 5 7021-8 ####[facility] LABIA [id number] [place] [address] [place] Platelets (Bld) [#/Vol] 379 10*3/uL Normal 150-400 [facility] Comment on above: Order Comment: Speci men Type: BLOOD SPECIMENOrdering Facility: [facility] Address: [address] [place] [address] Performed By: #### 5 7021-8 ####[facility] LABIA [id number] [place] [id number] [place] RBC (Bld) [#/Vol] 4.27 10*6/uL Normal 3.90-5.20 [facility] Comment on above: Order Comment: Speci men Type: BLOOD SPECIMENOrdering Facility: [facility] Address: [address] [place] [address] Performed By: #### 5 7021-8 ####[facility] LABIA [id number] [address] [place] [address] [place] WBC (Bld) [#/Vol] 9.73 10*3/uL Normal 3.70-11.00 [facility] Comment on above: Order Comment: Speci men Type: BLOOD SPECIMENOrdering Facility: [facility] Address: [address] [address] Performed By: #### 5 7021-8 ####[facility] LABCLIA [id number] ANGELA JONES [address] OF [facility] CNOVon 11-29-2024 CNOV Office Visit (FAMPWS ) -- ZACKERY NUNEZ ([id number]) 1960 F Date Time Provider Department 11/29/24 1:00 PM [facility] your visit today, we recorded the following information about you: Pulse Blood pressure Weight 75/minute 102/62 91.6 kg Mikayla Strange MD 11/29/2024 5:16 PM Signed Zackery Charley Germanshirley is a 64 year old female here for a Medicare wellness visit. Medicare Health Risk Assessment General Health Fairly well. Exercise: Minutes/Day 15 min Exercise: Days/Week 2 to 3 Alcohol: Daily Use no Alcohol: Drinks/Day no Alcohol: 6 or more drinks none Feel off balance Yes, since knee injury. Concerns: Teeth/Dentures yes Concerns: Sexual function none Troubled by feelings Yes, some Frequency: Eating healthy diet Yes. ADLs requiring help none Safety precautions in home/vehicle yes Smoke, vape, chews tobacco no Difficulty hearing no Difficulty seeing Glasses, sees them again next month Current Providers Specialists: I have reviewed specialist-related care of the patient in the medical record. Current care team: Patient Care Team: Mikayla Strange MD as PCP - General (Family Medicine) Sayda Carr APRN.INSPECTOR AND HAND PACKAGER as Clinical Pharmacologist (Family Medicine) Suppan, Ginger A, CHAINSTITCH FELLED SEAM OPERATOR.CP as Clinical Pharmacologist (Family Medicine) Outside specialists seen: Dr Bedolla, optho. Sydni Waggoner, ortho. Cielo Ordoñez, rheum Dr Reeder, ortho for her left knee. Dr Ward, pain management. [facility]. Kd [place], urology Medical/Family history review Reviewed and updated problem list, medical/surgical/family/so cial history, medications, and allergies. Opioid use review Opioid Medications (last 90 days) 10/21/2024 14:19 11/25/2024 13:37 11/29/2024 Opioid Medications oxycodone HCl/acetaminophen 1 tablet three times daily as needed. 1 tablet three times daily as needed. 1 tablet TID PRN (5-325 mg tab) Patient taking differently: Patient not taking as of 04/11/2022 3:05 PM buprenorphine 3,360 mcg 1/WK Last APPLIED 05/08 TD 3,360 mcg 1/WK Last APPLIED 05/08 TD 3,360 mcg 1/WK Last APPLIED 05/08 TD Details Outpatient prescription Medication marked as long-term Patient-reported Prescribed buprenorphine (last 90 days) Does patient have risk factors for opioid abuse? No Pain overview Current pain concerns and treatment plan reviewed. Patient under the care of a specialist and is stable. . Anxiety/Depression screening Has known anxiety and depression. Recommendation: no further intervention at this time Cognitive screening Brief Assessment of Cognitive Health (BACH) Results: The patient endorsed mild depression symptoms on PHQ-8[1]. The patient endorsed a high level of stress. The patient reported getting about 6 hours of sleep per night, which falls into the may be appropriate category based on National Sleep Foundation Guidelines [2].They endorsed moderate recent sleep problems. The patient?s cognitive test performance was VALID. When invalid, probability of cognitive impairment score should be disregarded. Probability of cognitive impairment [3]: 50.15% Above 50% - Probable cognitive impairment; Specialty evaluation may be warranted 20-50% - Possible cognitive impairment; Address moderate to severe depression and sleep issues and retest Below 20% - Very low chance of cognitive impairment Moderate to severe levels of depression or stress may contribute to subjective cognitive complaints in the absence of cognitive impairment [1] Willow K, Cameron TW, Rohith RL, Mt FRANCES, Lizandro ValenciaT, Jack AH. The PHQ-8 as a measure of current depression in the general population. J Affect Disord. 2009;114(1-3):163-173. doi: 10.1016/j.dexter.2008.06.026 [2] Katarina et al. National Sleep Foundation's sleep time duration recommendations: methodology and results summary. Sleep Health. 2015 Mar;1(1):40-43. doi: 10.1016/j.sleh.2014.12.010 . [3] Fany RM, Dionne O, Emir AF, Klaudia DP. Automated detection of cognitive impairment in clinical practice. J Neurol. 2023Nov 27. doi: 10.1007/a53470-212-05419-0 . Epub ahead of print. PMID: [id number]. Cognitive screening reviewed and Recommended referral for further evaluation (score 0-2). Functional Observation Was the patient's Timed Up AND Go test unsteady or >= 12 seconds? No Advance Care Planning Patient did not wish or was not able to name a surrogate decision maker or provide an advance care plan Measurements BP 102/62 Pulse 75 Wt 91.6 kg (202 lb) SpO2 98% BMI 31.64 kg/m? Vision Screening: Follows with optometry/ophthalmology Zackery Nunez is a 64-year-old female with a history of RA, glaucoma, and chronic anemia, presenting for an annual wellness visit, with additional complaints of memory issues, diarrhea, and right foot pain. HPI Annual Wellness Exam: - General health described as fairly (more content not included)... Normal [facility] Ferritin SerPl-mCncon 2024 Ferritin [Mass/Vol] 43.8 ng/mL Normal 14.7-205.1 [facility] Comment on above: Order Comment: Speci men Type: BLOOD SPECIMENOrdering Facility: [facility] Address: [address] [place] [address] Performed By: #### 5 0190-8, 2276-4, 3016-3, LIPNF ####[facility] LABCLIA [id number] [place] [address] [place] Folate SerPl-mCncon 11-30-19 25 Folate [Mass/Vol] ng/mL Normal >4.7 [facility] Comment on above: Order Comment: Speci men Type: BLOOD SPECIMENOrdering Facility: [facility] Address: [address] [place] [address] Result Comment: A re sult of > 20 ng/mL is not necessarily indicative of a pathologic or treatable condition: it reflects a limitation of the test methodology. Assay reference range: 4.8 to 24.2 ng/mL. Suitable for detection of folate deficiency. Reference: Folate III (Folate III) [package insert V 1.0 Turkmen]. [facility], [place], [place]: April 2015. Performed By: #### 2 284-8, 91335-4, 2132-9 ####[facility] LABCLIA [id number] [place] [address] [place] Iron and Iron binding capaci ty panelon 11-29-2024 Iron [Mass/Vol] 35 ug/dL Low 41-186 [facility] Comment on above: Order Comment: Speci men Type: BLOOD SPECIMENOrdering Facility: [facility] Address: [address] [place] [address] Performed By: #### 5 0190-8, 2276-4, 3016-3, LIPNF ####[facility] LABIA [id number] [place] [address] [place] Iron binding capacity [Mass/Vol] 266 ug/dL Normal 232-386 [facility] Comment on above: Order Comment: Speci men Type: BLOOD SPECIMENOrdering Facility: [facility] Address: [address] [place] [address] Performed By: #### 5 0190-8, 2276-4, 3016-3, LIPNF ####[facility] LABIA [id number] [place] [id number] [place] Iron/TIBC [Molar ratio] 13.2 % Low 15.0-57.0 [facility] Comment on above: Order Comment: Speci men Type: BLOOD SPECIMENOrdering Facility: [facility] Address: [address] [place] [address] Performed By: #### 5 0190-8, 6-4, 3016-3, LIPNF ####[facility] LABCLIA [id number] [address] [place] LIPID PANEL, NONFASTINGon Cholesterol [Mass/Vol] 139 mg/dL Normal <200 [facility] Comment on above: Order Comment: Speci men Type: BLOOD SPECIMENOrdering Facility: [facility] Address: [address] [place] [address] Result Comment: <200 mg/dL, Desirable 200-239 mg/dL, Borderline high >239 mg/dL, High Performed By: #### 5 0190-8, 6-4, 3016-3, LIPNF ####[facility] LABCLIA [id number] [place] [address] [place] HDL CHOLESTEROL, NF 51 mg/dL Normal >39 [facility] Comment on above: Order Comment: Cji men Type: BLOOD SPECIMENOrdering Facility: [facility] Address: [address] [place] [address] Result Comment: 40-5 9 mg/dL, Acceptable >59 mg/dL, High: Negative risk factor for coronary heart disease <40 mg/dL, Low: Positive risk factor for coronary heart disease Performed By: #### 5 0190-8, 6-4, 3016-3, LIPNF ####[facility] LABCLIA [id number] [address] [place] LDL CHOLESTEROL CALCULATED, NF 68 mg/dL Normal <100 [facility] Comment on above: Order Comment: Speci men Type: BLOOD SPECIMENOrdering Facility: [facility] Address: [address] [place] [address] Result Comment: <100 mg/dL, Optimal 100-129 mg/dL, Near optimal/above optimal 130-159 mg/dL, Borderline high 160-189 mg/dL, High >189 mg/dL, Very high Secondary prevention optimal LDL Cholesterol levels are recommended to be <70 mg/dL LDL cholesterol is calculated using the Raymond-NIH equation. Performed By: #### 5 0190-8, 6-4, 3016-3, LIPNF ####[facility] LABCLIA [id number] [place] [id number] [facility] LDL/HDL RATIO, NF 1.33 mg/dL Normal <2.54 [facility] Comment on above: Order Comment: Speci men Type: BLOOD SPECIMENOrdering Facility: [facility] Address: [address] [place] [address] Result Comment: Refe rence: 1. National Cholesterol Education Program ATP III Guideline At-A-Glance Quick Desk Reference: National Heart, Lung, and Blood [place]. National Institutes of Health. 2001: NIH Publication No. 01-3305. 2. An International Atherosclerosis Society position paper: global recommendations for the management of dyslipidemia: executive summary, Atherosclerosis. 2014: 232(2):410-413. Performed By: #### 5 0190-8, 6-4, 6-3, LIPNF ####[facility] LABCLIA [id number] [address] STATES [facility] NON HDL CHOL, NF 88 mg/dL Normal <130 [facility] Comment on above: Order Comment: Speci men Type: BLOOD SPECIMENOrdering Facility: [facility] Address: [address] [place] [address] Result Comment: <130 mg/dL, Optimal 130-159 mg/dL, Near optimal/above optimal 160-189 mg/dL, Borderline high 190-219 mg/dL, High >219 mg/dL, Very high Secondary prevention optimal non HDL Cholesterol levels are recommended to be <100 mg/dL Performed By: #### 5 0190-8, 6-4, 3016-3, LIPNF ####[facility] LABCLIA [id number] [address] [place] [address] [facility] T CHOL/HDL RATIO NF 2.73 mg/dL Normal <5.10 [facility] Comment on above: Order Comment: Speci men Type: BLOOD SPECIMENOrdering Facility: [facility] Address: [address] [place] [address] Performed By: #### 5 0190-8, 2275-4, 3015-3, LIPNF ####[facility] LABCLIA [id number] [place] [id number] [place] TRIGLYCERIDES, NF 109 mg/dL Normal <150 [facility] Comment on above: Order Comment: Speci men Type: BLOOD SPECIMENOrdering Facility: [facility] Address: [address] [place] [address] Result Comment: <150 mg/dL, Normal 150-199 mg/dL, Borderline high 200-499 mg/dL, High >499 mg/dL, Very high Performed By: #### 5 0190-8, 2275-, 6-3, LIPNF ####[facility] LABCLIA [id number] [place] [address] [place] VLDL CHOLESTEROL, NF 16 mg/dL Normal <30 [facility] Comment on above: Order Comment: Speci men Type: BLOOD SPECIMENOrdering Facility: [facility] Address: [address] [place] [address] Performed By: #### 5 0190-8, 2275-, 3015-3, LIPNF ####[facility] LABCLIA [id number] [place] [address] [place] TSH SerPl-aCncon 11-29-2024 TSH Qn 1.690 m[IU]/L Normal 0.270-4.20 0 [facility] Comment on above: Order Comment: Speci men Type: BLOOD SPECIMENOrdering Facility: [facility] Address: [address] [place] [address] Performed By: #### 5 0190-8, 2275-4, 3015-3, LIPNF ####[facility] LABCLIA [id number] [place] [address] [place] Urinalysis complete panel (U )on 11-29-2024 Bacteria LM.HPF (Urine sed) [#/Area] Negative Normal Negative [facility] Comment on above: Order Comment: Speci men Type: URINE SPECIMEN [facility] Address: [address] [place] [address] Performed By: #### 2 4356-8 #### [facility] CLIA [id number] [address] [place] [address] [place] Bilirubin Ql (U) Negative Normal Negative [facility] Comment on above: Order Comment: Speci men Type: URINE SPECIMEN [facility] Address: [address] [place] [address] Performed By: #### 2 4356-8 #### [facility] CLIA [id number] [address] [place] [address] [place] Clarity (Unsp spec) Cloudy Abnormal Clear [facility] Comment on above: Order Comment: Speci men Type: URINE SPECIMEN [facility] Address: [address] [place] [address] Performed By: #### 2 4356-8 #### [facility] CLIA [id number] [address] [place] [address] [place] [facility] Color (U) Dark Yellow Abnormal Yellow [facility] Comment on above: Order Comment: Speci men Type: URINE SPECIMEN [facility] Address: [address] [place] [address] Performed By: #### 2 4356-8 #### [facility] CLIA [id number] [address] [place] [address] [place] Epithelial cells LM.HPF (Urine sed) [#/Area] Moderate Normal [facility] Comment on above: Order Comment: Speci men Type: URINE SPECIMEN [facility] Address: [address] [place] [address] Performed By: #### 2 4356-8 #### [facility] CLIA [id number] [address] [place] [address] [place] Glucose Test strip (U) [Mass/Vol] Negative Normal Negative [facility] Comment on above: Order Comment: Speci men Type: URINE SPECIMEN [facility] Address: [address] [place] [address] Performed By: #### 2 4356-8 #### [facility] CLIA [id number] [address] [place] [address] [place] Hemoglobin Ql (U) Negative Normal Negative [facility] Comment on above: Order Comment: Speci men Type: URINE SPECIMEN [facility] Address: [address] [place] [address] Performed By: #### 2 4356-8 #### [facility] CLIA [id number] [address] [place] [address] [place] Hyaline casts (Urine sed) [#/Area] 4-10 /LPF Abnormal 0 /LPF [facility] Comment on above: Order Comment: Speci men Type: URINE SPECIMEN [facility] Address: [address] [place] [address] Performed By: #### 2 4356-8 #### [facility] CLIA [id number] [address] [place] [address] [place] Ketones Ql (U) Negative Normal Negative [facility] Comment on above: Order Comment: Speci men Type: URINE SPECIMEN [facility] Address: [address] [place] [address] Performed By: #### 2 4356-8 #### [facility] CLIA [id number] [address] [place] [address] [place] Leukocyte esterase Test strip Ql (U) Negative Normal Negative [facility] Comment on above: Order Comment: Speci men Type: URINE SPECIMEN [facility] Address: [address] [place] [address] Performed By: #### 2 4356-8 #### [facility] CLIA [id number] [address] [place] [address] [place] Nitrite Ql (U) Negative Normal Negative [facility] Comment on above: Order Comment: Speci men Type: URINE SPECIMEN [facility] Address: [address] [place] [address] Performed By: #### 2 4356-8 #### [facility] CLIA [id number] [address] [place] [address] [place] pH (U) 5.5 [pH] Normal <8.5 [facility] Comment on above: Order Comment: Speci men Type: URINE SPECIMEN [facility] Address: [address] [place] [address] Performed By: #### 2 4356-8 #### [facility] CLIA [id number] [address] [place] [address] [place] [place] Protein (U) [Mass/Vol] Negative Normal Negative [facility] Comment on above: Order Comment: Speci men Type: URINE SPECIMEN Ordering Facility: [facility] Address: [address] [place] [address] Performed By: #### 2 4356-8 #### [facility] CLIA [id number] [address] [place] [address] [place] RBC LM.HPF (Urine sed) [#/Area] 11-20 /HPF Abnormal 0-2 /HPF [facility] Comment on above: Order Comment: Speci men Type: URINE SPECIMEN Ordering Facility: [facility] Address: [address] [place] [address] Performed By: #### 2 4356-8 #### [facility] CLIA [id number] [address] [place] [address] [place] Specific gravity (U) [Rel density] 1.017 Normal 1.005-1.03 0 [facility] Comment on above: Order Comment: Speci men Type: URINE SPECIMEN Ordering Facility: [facility] Address: [address] [place] [address] Performed By: #### 2 4356-8 #### [facility] CLIA [id number] [address] [place] [address] [place] Urobilinogen Ql (U) 0.2 EU/dL Normal 0.2-1.0 EU/dL [facility] Comment on above: Order Comment: Speci men Type: URINE SPECIMEN Ordering Facility: [facility] Address: [address] [place] [address] Performed By: #### 2 4356-8 #### [facility] CLIA [id number] [address] [place] [address] [place] WBC LM.HPF (Urine sed) [#/Area] 0-5 /HPF Normal 0-5 /HPF [facility] Comment on above: Order Comment: Speci men Type: URINE SPECIMEN Ordering Facility: [facility] Address: [address] [place] [address] Performed By: #### 2 4356-8 #### [facility] CLIA [id number] [address] [place] [address] [place] Vit B12 [facility] Cobalamin (Vitamin B12) [Mass/Vol] 413 pg/mL Normal 232-1245 [facility] Comment on above: Order Comment: Speci men Type: BLOOD SPECIMENOrdering Facility: [facility] Address: [address] [place] [address] Performed By: #### 2 284-8, 52298-3, 2132-9 ####[facility] [id number] [place] [address] [place] Amphetamine detection with 1 000 ng/mL as cutoffOrdered By: Latia Ward on 11-27-2024 Amphetamines Screen method >1000 ng/mL Ql (U) Negative < 200 ng/mL [facility] No Panel InformationOrdered By: Latia Ward on 11-27-2024 Urine Buprenorphine Qualitative Negative < 200 ng/mL [facility] Urine Oxycodone Screen Positive < 100 ng/mL [facility] Comment on above: If confirmation test ing is needed, a separate order will be required to send out testing to the reference laboratory. Quantitative urine opiates m easurementOrdered By: Latia Ward on 11-27-2024 Opiates Ql (U) Negative < 300 ng/mL [facility] Screening urine fentanyl fabian surementOrdered By: Latia Ward on 11-27-2024 fentaNYL Screen Ql (U) Negative [facility] Urine Drug Screen (VISTA)on 11-27-2024 AMPHETAMINES Negative Normal <1000 ng/mL [facility] Comment on above: Order Comment: UNKNO WN Performed By: #### L 500.4050, L100.0100 #### [facility] [address] [place] [address] BARBITIURATES Negative Normal < 200 ng/mL [facility] Comment on above: Order Comment: UNKNO WN Performed By: #### L 500.4050, L100.0100 #### [facility] [address] [place] [address] BENZODIAZIPINE Negative Normal < 200 ng/mL [facility] Comment on above: Order Comment: UNKNO WN Performed By: #### L 500.4050, L100.0100 #### [facility] [address] [place] [id number] BUP Ur Drug Scr Negative Normal < 200 ng/mL [facility] Comment on above: Order Comment: UNKNO WN Performed By: #### L 500.4050, L100.0100 #### [facility] [address] [place] [phone] COCAINE Negative Normal < 300 ng/mL [facility] Comment on above: Order Comment: UNKNO WN Performed By: #### L 500.4050, L100.0100 #### [facility] [address] [place], [address] Fentanyl Negative Normal [facility] Comment on above: Order Comment: UNKNO WN Performed By: #### L 500.4050, L100.0100 #### [facility] [address] [place], [address] METHADONE Negative Normal < 300 ng/mL [facility] Comment on above: Order Comment: UNKNO WN Performed By: #### L 500.4050, L100.0100 #### [facility] [address] [place], [address] OPIATES Negative Normal < 300 ng/mL [facility] Comment on above: Order Comment: UNKNO WN Performed By: #### L 500.4050, L100.0100 #### [facility] [address] [place], [address] OXYCODONE Positive Normal < 100 ng/mL [facility] Comment on above: Order Comment: UNKNO WN Result Comment: If c onfirmation testing is needed, a separate order will be required to send out testing to the reference laboratory. Performed By: #### L 500.4050, L100.0100 #### [facility] [address] [place], [address] PCP Negative Normal < 25 ng/mL [facility] Comment on above: Order Comment: UNKNO WN Performed By: #### L 500.4050, L100.0100 #### [facility] [address] [place], [address] THC Negative Normal < 50 ng/mL [facility] Comment on above: Order Comment: UNKNO WN Performed By: #### L 500.4050, L100.0100 #### [facility] [address] [place], [address] Urine benzodiazepine levelOr dered By: Latia Ward on 11-27-2024 Benzodiazepines Ql (U) Negative < 200 ng/mL [facility] Urine cocaine levelOrdered B y: Latia Caceresmonica on 11-27-2024 Cocaine Ql (U) Negative < 300 ng/mL [facility] Urine zysek-0-culbfosdknytda abinol (THC) measurementOrdered By: Latia Morrismonica on 11-27-2024 Cannabinoids Screen Ql (U) Negative < 50 ng/mL [facility] Urine phencyclidine (PCP) de tectionOrdered By: Latia Morrismonica on 11-27-2024 Phencyclidine Ql (U) Negative < 25 ng/mL [facility] CNOVon 11-25-2024 CNOV Office Visit (AGPOB1 ) -- ZACKERY NUNEZ ([id number]) 1960 F Date Time Provider Department 11/25/24 1:45 PM SYDNI WAGGONER During your visit today, we [...] No curren (more content not included)... Normal [facility] XR Knee - right AP and Later malcolm 11-25-2024 2-view right knee x- rays demonstrate maintained length, alignment and rotation of the right periprosthetic proximal tibia fracture with intact orthopaedic implants. [facility] RADIOLOGY [facility] Radiology Study observation (narrative) [facility] L/S Spine Min 4 Viewson 10-25 L/S Spine Min 4 Views [facility] Imaging Services [address] [place] [address] (631) L/S Spine Min 4 Views MR#: [id number] Acct: [id number] Name: ZACKERY NUNEZ CHARLEY Rep #: [id number] : 1960 F 64 From: Porter Daniels MD PCP: Dr. Mikayla Strange MD Status: DEP AMB Study: L/S Spine Min 4 Views Date of Exam: 11/21/24 Exam# [id number] Ordering Dr: Kadi Gonzalez PROCEDURE: L/S SPINE MIN 4 VIEWS 11/21/2024 REASON FOR EXAM: CHRONIC PAIN TECHNIQUE: Four views; AP, lateral, flexion and extension COMPARISON: None available FINDINGS: 5 jut-qur-joynbzh lumbar vertebral body types identified. Status post cholecystectomy. Bilateral lower facet degenerative changes. No fracture. L3-4 mild disc space narrowing and degenerative endplate change. L4-5 grade 1 anterolisthesis L4 on L5 with obndancu-uy-rdgvcw disc space narrowing and degenerative endplate change L5-S1 severe disc space narrowing vacuum effect and degenerative endplate changes No evidence of instability. RAD/L/S Spine Min 4 Views IMPRESSION: Multilevel spondylosis/discogenic change and spondylolisthesis as above. Reading Location: [id number] CC: JERILYN Jerez; Dr. Mikayla Strange MD [facility] Winder: Signed Normal [facility] Orthopedic Visit Reporton Orthopedic Visit Report [facility] [address] [place] [address] OFFICE VISIT Date of Service: 11/21/24 MR#: [id number] Acct: [id number] Name: ZACKERY NUNEZ CHARLEY Rep #: [id number] : 1960 Provider: JERILYN Jerez Age/Sex: 64/F Location: [facility] Status: Signed Intake Vital Signs 11/11/24 13:24 [...] tablet 30 mg PO BID anxiety 12/20/17 05/03/20 History amitriptyline 10 mg tablet 10 mg [...] Heartburn Gastric (more content not included)... Normal [facility] Knee 1 or 2 Viewson 11-12-19 Knee 1 or 2 Views [facility] Imaging Services [address] [place], [place] [address] Knee 1 or 2 Views MR#: [id number] Acct: [id number] Name: ZACKERY NUNEZ CHARLEY Rep #: [id number] : 1960 F 64 From: Porter Daniels MD PCP: Dr. Mikayla Strange MD Status: DEP AMB Study: Knee 1 or 2 Views Date of Exam: 11/11/24 Exam# [id number] Ordering Dr: Martir Carlin DO PROCEDURE: KNEE [...] appearing osteoarthrosis of the patellofemoral compartment with lkvn-uu-ppkm contact, lateral subluxation, buttressing and osteophyte formation. No fracture identified. RAD/Knee 1 or 2 Views IMPRESSION: Possible large intra-articular osseous body at the midline posterior joint versus an unusual appearance of the fabella given its slightly medial to midline positioning on the tunnel view. Medial and lateral compartments appear within limits. Again note of severe appearing osteoarthrosis of the patellofemoral compartment with pcqz-op-ogna contact, lateral subluxation, buttressing and osteophyte formation. Reading Location: [id number] CC: Dr. Martir Carlin DO; Dr. Mikayla Strange MD [facility] Winder: Signed Normal [facility] Orthopedic Visit Reporton Orthopedic Visit Report [facility] [address] [place] [address] [address] [place] [address] OFFICE VISIT Date of Service: 11/11/24 MR#: [id number] Acct: [id number] Name: ZACKERY NUNEZ CHARLEY Rep #: [id number] : 1960 Provider: Dr. Martir john DO Age/Sex: 64/F Location: [facility] Status: Signed Intake Vital Signs 06/24/24 13:20 [...] you fallen in the past year?: Yes [facility] Medical History (Updated 11/11/24 @ 14:[address] Martir Carlin, DO) MRSA (methicillin resistant staph aureus) culture positive Wears glasses Post-menopausal Marijuana use History of steroid therapy Diabetes Walker as ambulation aid Low iron High cholesterol Back pain Injury of head and neck Migraine headache Heartburn Gastric reflux Non-smok (more content not included)... Normal [facility] Knee 1 or 2 Viewson 10-31-19 Knee 1 or 2 Views [facility] Imaging Services [address] [place] [address] Knee 1 or 2 Views MR#: [id number] Acct: [id number] Name: ZACKERY NUNEZ CHARLEY Rep #: [id number] : 1960 F 64 From: Sydni Garcia i, MD PCP: Dr. Mikayla Strange MD Status: REG CLI Study: Knee 1 or 2 Views Date of Exam: 10/30/24 Exam# [id number] Ordering Dr: Latia Ward MD PROCEDURE: KNEE [...] Latia Ward MD; Dr. Mikayla Strange MD [facility]: Signed Normal [facility] Knee 1 or 2 Views [facility] Imaging Services [address] [place], [place] [address] Knee 1 or 2 Views MR#: [id number] Acct: [id number] Name: ZACKERY NUNEZ CHARLEY Rep #: [id number] : 1960 F 64 From: Porter Daniels MD PCP: Dr. Mikayla Strange MD Status: REG CLI Study: Knee 1 or 2 Views Date of Exam: 10/30/24 Exam# [id number] Ordering Dr: Latia Ward MD PROCEDURE: KNEE 1 OR 2 VIEWS 10/30/2024 REASON FOR EXAM: B/L KNEE OA TECHNIQUE: Two views left knee COMPARISON: None available FINDINGS: No fracture or dislocation. Medial and lateral compartment joint spaces appear within limits. Mild spurring at the tibial spines. Severe joint space narrowing suggested of the patellofemoral compartment with xibl-le-alsb appearing contact, buttressing and large osteophyte formation. Enthesopathic change at the quadriceps side of the patella. Possible small joint effusion. RAD/Knee 1 or 2 Views IMPRESSION: Severe appearing osteoarthrosis of the patellofemoral compartment as above. Reading Location: [id number] CC: Dr. Latia Ward MD; Dr. Mikayla Strange MD [facility] Winder: Signed [facility] CNOVon 10-22-2024 CN Office Visit (FAMPWS ) -- SANDHYAALCONZACKERY CHARLEY ([id number]) 1960 F Date Time Provider Department 10/22/24 1:40 PM SAYDA CARR During your visit today, we recorded the following information about you: Pulse Respiration Blood pressure 71/minute 16/minute 108/62 Sayda Carr APRN.INSPECTOR AND HAND PACKAGER 10/22/2024 5:48 PM Signed This is a [...] Anxiety disorder Arthritis Chronic back pain Dr. Bruks-pain management Depressive disorder, not elsewhere classified Diabetes [...] medications for (more content not included)... Normal [facility] CNOVon 10-21-2024 OV Office Visit (AGPOB1 ) -- ZACKERY NUNEZ ([id number]) 1960 F Date Time Provider Department 10/21/24 2:45 PM [place] AGPOB1 During your visit today, we recorded [...] [M97.11XD] Order(s):XR KNEE LIMITED 2V AP/LAT RIGHT [5931367] Order #: [id number] Prescriptions as of 10/21/2024 - hyoscyamine sublingual [...] - oxyCODONE-ac (more content not included)... Normal [facility] XR Knee - right AP and Later [...] right total knee arthroplasty which is stable. Ga Blackburn PA-C [facility] RADIOLOGY [facility] Radiology Study observation (narrative) [facility] BD DXA - AXIAL SKELETONon BD DXA [...] years, Gender: Female SCANNER INFORMATION: DXA Model: Context Relevant - NCLC C 27055 Date Scanned: 10/11/2024 2:11 PM CLINICAL HISTORY: [...] FOR MORE INFORMATION ABOUT DIAGNOSIS AND TREATMENT: [facility] Center for Osteoporosis and Metabolic Bone Disease:? www.ccf.org/arthritis/oste o National Osteoporosis Foundation:? www.nof.org International Society of Clinical Densitometry www.iscd.org [facility] Winder: CHERELLE Transcribe Date/Time: Oct 13 2024 10:20A Dictated by : GA HUFFMAN MD This examination was interpreted and the report reviewed and electronically signed by: GA HUFFMAN MD on Oct 13 2024 10:22AM EST [id number] -0.7 Normal [facility] BD DXA TRABECLR BONE SCORE ( TBS)on [...] years, Gender: Female SCANNER INFORMATION: DXA Model: Context Relevant - [employer] C 38290 Date Scanned: 10/11/2024 2:11 PM CLINICAL HISTORY: [...] FOR MORE INFORMATION ABOUT DIAGNOSIS AND TREATMENT: [facility] Center for Osteoporosis and Metabolic Bone Disease:? www.ccf.org/arthritis/oste o National Osteoporosis Foundation:? www.nof.org International Society of Clinical Densitometry www.iscd.org [facility] Winder: CHERELLE Transcribe Date/Time: Oct 13 2024 10:20A Dictated by : GA HUFFMAN MD This examination was interpreted and the report reviewed and electronically signed by: GA HUFFMAN MD on Oct 13 2024 10:22AM EST [id number] -0.7 Normal [facility] Re-Evaluation - PT (1)on Re-Evaluation - PT (1) [facility] Physical Therapy Health[address] [place] [address] / REEVALUATION / MEDICARE RECERTIFICATION PHYSICAL THERAPY MR#: [id number] Acct: [id number] Name: ZACKERY NUNEZ Rep #: [id number] : 1960 64 From: Reuben Shields DPT [...] do not hesitate to contact me at [phone] by phone or if you have questions or concerns regarding this new plan of care! Sincerely, Reuben Shields, DPT 10/03/24 0463 CC: Dr. Mikayla Strange MD; Sydni Waggoner MD CLS Signed For Medicare only, by signing this I certify the plan of care. (more content not included)... Normal [facility] 09-23-2024 [facility] Telephone (FAMPWS) -- ZACKERY NUNEZ ([id number]) 1960 F Date Time Provider Department 09/23/24 MIKAYLA STRANGE [facility] During your visit today, we recorded the following information about you: Adriano Paniagua, RN 09/23/2024 2:13 PM Signed Natalyn- nurse - [facility] [place]- reporting to pcp, patient had a fracture [...] Visit Diagnosis:Screening for osteoporosis [Z13.820] Order(s):DXA-AXIAL SKELETON [0686064] Order #: [id number] FUTURE DXA TRABECULAR BONE SCORE (TBS) [[id number]] Order #: [id number] FUTURE Prescriptions as of 10/17/2024 - hyoscyamine [...] Migraine without (more content not included)... Normal [facility] Absolute lymphocyte countOrd ered By: Smita Buck on 09-06-2024 Lymphocytes Auto (Unsp spec) [#/Vol] 2.23 10*3/uL 0.83-4.51 [facility] Absolute neutrophil countOrd ered By: [facility] on 09-06-2024 Neutrophils (Bld) [#/Vol] 2.9 10*3/uL 2.0-7.7 [facility] Anion gap in Serum or Plasma Ordered By: Smita Buck on 09-06-2024 Anion gap [Moles/Vol] 12 mmol/L 5- [facility] Automated lymphocyte count a s percentage of total leukocytesOrdered By: Smita Buck on 09-06-2024 Lymphocytes/100 WBC Auto (Unsp spec) 40.0 % - [facility] BUN/creatinine ratioOrdered By: [facility] on 09-06-2024 Urea nitrogen/Creatinine [Mass ratio] 12.1 mg/mg 10- [facility] Basophil percentageOrdered B y: Smita Buck on 09-06-2024 Basophils/100 WBC (Bld) 0.4 % 0- [facility] Bilirubin, totalOrdered By: Smita Buck on 09-06-2024 Bilirubin [Mass/Vol] 0.23 mg/dL 0.00-1.30 [facility] CBC W/Diff, Automatedon 08-24 Absolute Lymph 2.23 X10 3/uL Normal 0.83-4.51 [facility] Comment on above: Performed By: #### L 500.4050, L100.0100 #### [facility] [address] [place], [place] [address]all [facility] [place], [address] Absolute Neut 2.9 X10 3/uL Normal 2.0-7.7 [facility] Comment on above: Performed By: #### L 500.4050, L100.0100 #### [facility] [address] [place], [address] Basophils/100 WBC (Bld) 0.4 % Normal 0-1 [facility] Comment on above: Performed By: #### L 500.4050, L100.0100 #### [facility] [address] [place], [address] Eosinophils/100 WBC (Bld) 1.6 % Normal 0-5 [facility] Comment on above: Performed By: #### L 500.4050, L100.0100 #### [facility] [address] [place], [address] Erythrocyte distribution width (RBC) [Ratio] 17.6 % High 11.6-14.6 [facility] Comment on above: Performed By: #### L 500.4050, L100.0100 #### [facility] [address] [place], [address] Hematocrit (Bld) [Volume fraction] 36.5 % Low 37-47 [facility] Comment on above: Performed By: #### L 500.4050, L100.0100 #### [facility] [address] [place], [address] Hemoglobin (Bld) [Mass/Vol] 11.3 g/dL Low 12.0-15.0 [facility] Comment on above: Performed By: #### L 500.4050, L100.0100 #### [facility] [address] [place], [address] IG% 0.200 Normal 0.0-0.9 [facility] Comment on above: Result Comment: IG% - Immature Granulocytes (promyelocytes, myelocytes and metamyelocytes) > 1% indicates that a LEFT SHIFT is Present. Performed By: #### L 500.4050, L100.0100 #### [facility] [address] [place], [address] Lymphocytes/100 WBC (Bld) 40.0 % Normal 19-41 [facility] Comment on above: Performed By: #### L 500.4050, L100.0100 #### [facility] [address] [place], [address] MCH (RBC) [Entitic mass] 25.6 pg Low 27.0-32.0 [facility] Comment on above: Performed By: #### L 500.4050, L100.0100 #### [facility] [address] [place], [address] MCHC (RBC) [Mass/Vol] 31.0 g/dL Low 32-36 [facility] Comment on above: Performed By: #### L 500.4050, L100.0100 #### [facility] [address] [place], [address] MCV (RBC) [Entitic vol] 82.8 fL Normal 81-99 [facility] Comment on above: Performed By: #### L 500.4050, L100.0100 #### [facility] [address] [place], [address] Monocytes/100 WBC (Bld) 5.2 % Normal 0-10 [facility] Comment on above: Performed By: #### L 500.4050, L100.0100 #### [facility] [address] [place], [address] Neutrophils/100 WBC (Bld) 52.6 % Normal 47-70 [facility] Comment on above: Performed By: #### L 500.4050, L100.0100 #### [facility] [address] [place], [address] Nucleated RBC (Bld) [#/Vol] 0 10*3/uL Normal 0-5 [facility] Comment on above: Performed By: #### L 500.4050, L100.0100 #### [facility] [address] [place], [address] Platelet mean volume (Bld) [Entitic vol] 10.9 fL Normal 6.2-12.0 [facility] Comment on above: Performed By: #### L 500.4050, L100.0100 #### [facility] [address] [place], [address] Platelets (Bld) [#/Vol] 257 10*3/uL Normal 150-450 [facility] Comment on above: Performed By: #### L 500.4050, L100.0100 #### [facility] [address] [place], [address] RBC (Bld) [#/Vol] 4.41 10*6/uL Normal 4.2-5.4 [facility] Comment on above: Performed By: #### L 500.4050, L100.0100 #### [facility] [address] [place], [address] RDW SD 53.0 fl High 35.1-43.9 [facility] Comment on above: Performed By: #### L 500.4050, L100.0100 #### [facility] [address] [place], [address] WBC (Bld) [#/Vol] 5.6 10*3/uL Normal 4.4-11.0 [facility] Comment on above: Performed By: #### L 500.4050, L100.0100 #### [facility] [address] [place], [address] Carbon dioxide, total [Moles /volume] in Central venous bloodOrdered By: Smita Buck on 09-06-2024 CO2 [Moles/Vol] 23.0 mmol/L 21.0-32.0 [facility] Chloride assayOrdered By: Jerilyn Buck on 09-06-2024 Chloride [Moles/Vol] 103 mmol/L 98-108 [facility] Comprehensive Metabolic Prof ilon 09-06-2024 Albumin [Mass/Vol] 3.9 g/dL Normal 3.4-4.8 [facility] Comment on above: Order Comment: V Performed By: #### L 500.4050, L100.0100 #### [facility] [address] [place], [address] Albumin/Globulin [Mass ratio] 1.3 {ratio} Normal 0.9-2.4 [facility] Comment on above: Order Comment: V Performed By: #### L 500.4050, L100.0100 #### [facility] [address] [place], [address] ALK PHOS 89 U/L Normal 35-104 [facility] Comment on above: Order Comment: V Performed By: #### L 500.4050, L100.0100 #### [facility] [address] [place], [address] ALT [Catalytic activity/Vol] 10 U/L Normal <=34 [facility] Comment on above: Order Comment: V Performed By: #### L 500.4050, L100.0100 #### [facility] [address] [place], [address] AST [Catalytic activity/Vol] 23 U/L Normal <=31 [facility] Comment on above: Order Comment: V Performed By: #### L 500.4050, L100.0100 #### [facility] [address] [place], [address] Bilirubin [Mass/Vol] 0.23 mg/dL Normal 0.00-1.30 [facility] Comment on above: Order Comment: V Performed By: #### L 500.4050, L100.0100 #### [facility] [address] [place], [address] BUN/CRE 12.1 RATIO Normal 10-20 [facility] Comment on above: Order Comment: V Performed By: #### L 500.4050, L100.0100 #### [facility] [address] [place], [address] Calcium [Mass/Vol] 9.1 mg/dL Normal 7.6-11.0 [facility] Comment on above: Order Comment: V Performed By: #### L 500.4050, L100.0100 #### [facility] [address] [place], [address] Chloride [Moles/Vol] 103 mmol/L Normal 98-108 [facility] Comment on above: Order Comment: V Performed By: #### L 500.4050, L100.0100 #### [facility] [address] [place], [address] CO2 [Moles/Vol] 23.0 mmol/L Normal 21.0-32.0 [facility] Comment on above: Order Comment: V Performed By: #### L 500.4050, L100.0100 #### [facility] [address] [place], [address] Creatinine [Mass/Vol] 0.90 mg/dL Normal 0.70-1.20 [facility] Comment on above: Order Comment: V Performed By: #### L 500.4050, L100.0100 #### [facility] [address] [place], [address] GAP 12 Normal 5-15 [facility] Comment on above: Order Comment: V Performed By: #### L 500.4050, L100.0100 #### [facility] [address] [place], [address] GFR/1.73 sq M.predicted among non-blacks MDRD (S/P/Bld) [Vol rate/Area] 70 mL/min/{1.73_m2} Normal >60 [facility] Comment on above: Order Comment: V Result Comment: mL/m in/1.73m2 CKD-EPI Creatinine Equation (2020) Performed By: #### L 500.4050, L100.0100 #### [facility] [address] [place], [address] Globulin (S) [Mass/Vol] 3.1 g/dL Normal 2.2-4.2 [facility] Comment on above: Order Comment: V Performed By: #### L 500.4050, L100.0100 #### [facility] [address] [place], [address] Glucose [Mass/Vol] 84 mg/dL Normal 70-99 [facility] Comment on above: Order Comment: V Performed By: #### L 500.4050, L100.0100 #### [facility] [address] [place], [address] Potassium [Moles/Vol] 4.3 mmol/L Normal 3.3-5.1 [facility] Comment on above: Order Comment: V Performed By: #### L 500.4050, L100.0100 #### [facility] [address] [place], [address] Sodium [Moles/Vol] 138 mmol/L Normal 133-145 [facility] Comment on above: Order Comment: V Performed By: #### L 500.4050, L100.0100 #### [facility] [address] [place], [address] T PROT 7.0 g/dL Normal 5.9-8.4 [facility] Comment on above: Order Comment: V Performed By: #### L 500.4050, L100.0100 #### [facility] [address] [place], [place], [address] Urea nitrogen [Mass/Vol] 11 mg/dL Normal 4-19 [facility] Comment on above: Order Comment: V Performed By: #### L 500.4050, L100.0100 #### [facility] [address] [place], [place], [address] Eosinophil percentageOrdered By: Smita Buck on 09-06-2024 Eosinophils/100 WBC (Bld) 1.6 % 0-5 [facility] Erythrocyte distribution wid th ratioOrdered By: Smita Buck on 09-06-2024 Erythrocyte distribution width (RBC) [Ratio] 17.6 % High 11.6-14.6 [facility] Erythrocyte distribution wid th standard deviationOrdered By: Smita Buck on 09-06-2024 Erythrocyte distribution width (RBC) [Entitic vol] 53.0 fL High 35.1-43.9 [facility] Erythrocyte distribution width (RBC) [Ratio] 53.0 fl High 35.1-43.9 [facility] GFR/1.73 sq M.predicted boris g non-blacks MDRD (S/P/Bld) [Vol rate/Area]Ordered By: Smita Buck on 09-06-2024 Estimated GFR (MDRD) Non-Af Amer 70 >60 [facility] Comment on above: mL/min/1.73m2 CKD-EP I Creatinine Equation (2020) Glomerular filtration rate ( GFR) estimation/1.73 sq m using serum, plasma, or whole bOrdered By: Smita Buck on 09-06-2024 GFR/1.73 sq M.predicted among non-blacks MDRD (S/P/Bld) [Vol rate/Area] 70 mL/min/{1.73_m2} >60 [facility] Comment on above: mL/min/1.73m2 CKD-EP I Creatinine Equation (2020) Hematocrit Auto (Bld) [Volum e fraction]Ordered By: Smita Buck on 09-06-2024 Hematocrit (Bld) [Volume fraction] 36.5 % Low 37-47 [facility] Hemoglobin measurementOrdere d By: Smita Buck on 09-06-2024 Hemoglobin (Bld) [Mass/Vol] 11.3 g/dL Low 12.0-15.0 [facility] Immature granulocytes/100 WB C Auto (Bld)Ordered By: Smita Buck on 09-06-2024 Immature granulocytes/100 WBC (Bld) 0.200 % 0.0-0.9 [facility] Comment on above: IG% - Immature Granu locytes (promyelocytes, myelocytes and metamyelocytes) > 1% indicates that a LEFT SHIFT is Present. Laboratory - Chemistry and C hemistry - challengeOrdered By: Smita Buck on 09-06-2024 AST [Catalytic activity/Vol] 23 U/L <32 [facility] Lymphocytes Auto (Unsp spec) [#/Vol]Ordered By: Smita Buck on 09-06-2024 Lymphocytes (Bld) [#/Vol] 2.23 10*3/uL 0.83-4.51 [facility] Lymphocytes/100 WBC Auto (Un sp spec)Ordered By: Smita Buck on 09-06-2024 Lymphocytes/100 WBC (Bld) 40.0 % 19-41 [facility] MCV (mean corpuscular volume ) determinationOrdered By: Smita Buck on 09-06-2024 MCV (RBC) [Entitic vol] 82.8 fL 81-99 [facility] Mean corpuscular hemoglobin (MCH) determinationOrdered By: Smita Buck on 09-06-2024 MCH (RBC) [Entitic mass] 25.6 pg Low 27.0-32.0 [facility] Mean corpuscular hemoglobin concentration (MCHC) determinationOrdered By: Smita Buck on 09-06-2024 MCHC (RBC) [Mass/Vol] 31.0 g/dL Low 32-36 [facility] Mean platelet volume determi nationOrdered By: Smita Buck on 09-06-2024 Platelet mean volume (Bld) [Entitic vol] 10.9 fL 6.2-12.0 [facility] Monocyte percentageOrdered B y: Smita Buck on 09-06-2024 Monocytes/100 WBC (Bld) 5.2 % 0-10 [facility] Neutrophil percentageOrdered By: Smtia Buck on 09-06-2024 Neutrophils/100 WBC (Bld) 52.6 % 47-70 [facility] Nucleated red blood cell per centageOrdered By: Smita Buck on 09-06-2024 Nucleated RBC/100 WBC (Bld) [Ratio] 0 % 0-5 [facility] Platelet countOrdered By: Jerilyn Buck on 09-06-2024 Platelets (Bld) [#/Vol] 257 10*3/uL 150-450 [facility] Potassium (Unsp spec) [Mass/ Vol]Ordered By: Smita Buck on 09-06-2024 Potassium [Moles/Vol] 4.3 mmol/L 3.3-5.1 [facility] Potassium measurement (mass/ volume)Ordered By: Smita Buck on 09-06-2024 Potassium (Unsp spec) [Mass/Vol] 4.3 mmol/L 3.3-5.1 [facility] RBC Auto (Bld) [#/Vol]Ordere d By: Smita Buck on 09-06-2024 RBC (Bld) [#/Vol] 4.41 10*6/uL 4.2-5.4 [facility] Serum creatinine measurement (mass/volume)Ordered By: Smita Buck on 09-06-2024 Creatinine [Mass/Vol] 0.90 mg/dL 0.70-1.20 [facility] Serum globulin measurementOr dered By: Smita Buck on 09-06-2024 Globulin (S) [Mass/Vol] 3.1 g/dL 2.2-4.2 [facility] Serum glucose measurement (m ass/volume)Ordered By: Smita Buck on 09-06-2024 Glucose [Mass/Vol] 84 mg/dL 70-99 [facility] Serum or plasma alanine cyr otransferase (ALT) measurementOrdered By: Smita Buck on 09-06-2024 ALT [Catalytic activity/Vol] 10 U/L <35 [facility] Serum or plasma albumin francisco urement (mass/volume)Ordered By: Smita Buck on 09-06-2024 Albumin [Mass/Vol] 3.9 g/dL 3.4-4.8 [facility] Serum or plasma albumin/glob ulin mass ratioOrdered By: Smita Buck on 09-06-2024 Albumin/Globulin [Mass ratio] 1.3 {ratio} 0.9-2.4 [facility] Serum or plasma alkaline john sphatase measurementOrdered By: Smita Buck on 09-06-2024 ALP [Catalytic activity/Vol] 89 U/L 35-104 [facility] Serum or plasma calcium francisco urement (mass/volume)Ordered By: Smita Buck on 09-06-2024 Calcium [Mass/Vol] 9.1 mg/dL 7.6-11.0 [facility] Serum or plasma urea nitroge n measurement (mass/volume)Ordered By: Smita Buck on 09-06-2024 Urea nitrogen [Mass/Vol] 11 mg/dL 4-19 [facility] Sodium levelOrdered By: Vero Buck on 09-06-2024 Sodium [Moles/Vol] 138 mmol/L 133-145 [facility] Total proteinOrdered By: Christopher Buck on 09-06-2024 Protein [Mass/Vol] 7.0 g/dL 5.9-8.4 [facility] White blood cell (WBC) count Ordered By: Smita Buck on 09-06-2024 WBC (Bld) [#/Vol] 5.6 10*3/uL 4.4-11.0 [facility] CNPNon 08-19-2024 CNPN Telephone ([facility]) -- ZACKERY NUNEZ ([id number]) 1960 F Date Time Provider Department 08/19/24 MIKAYLA STRANGE During your visit today, we [...] Pt voices understanding. Please send Rx to [facility] in [place]. Adeline Hensley RN Allergies As of Date: [...] Type 2 diabetes mellitus without complication, *03/12/2021 [place] (more content not included)... Normal [facility] ZACKERY [facility]UNEZ ([id number]) 1960 F Date Time Provider Department 08/16/24 [facility] visit today, we recorded [...] she usually takes Cipro rx, she uses [facility] for her pharmacy. She did not want [...] express scripts and please send to local [facility]. Evelyn Castaneda MA Allergies As of Date: [...] [R10.13] 07/30/2014 (more content not included)... Normal [facility] Bacteria Ur Culton Bacteria identified Cx [facility] (U) ORGANISM ID: 1 >=100,000 CFU/ml Klebsiella [...] , Intermediate >32 , Resistant >64 Abnormal [facility] Comment on above: Performed By: #### 6 30-4 ####[facility] LABIA [id number] [place] [address] [place] CBC W Auto Differential pane l (Bld)on 08-14-2024 Basophils (Bld) [#/Vol] 10*3/uL Normal <0.11 [facility] Comment on above: Order Comment: Speci men Type: BLOOD SPECIMENOrdering Facility: [facility] Address: [address] [place] [address] Performed By: #### 5 7021-8 ####[facility] LABIA [id number] [place] [address] [place] Basophils/100 WBC (Bld) 0.1 % Normal [facility] Comment on above: Order Comment: Speci men Type: BLOOD SPECIMENOrdering Facility: [facility] Address: [address] [place] [address] Performed By: #### 5 7021-8 ####[facility] LABIA [id number] [place] [address] [place] Differential cell count method Nom (Bld) Auto Normal [facility] Comment on above: Order Comment: Speci men Type: BLOOD SPECIMENOrdering Facility: [facility] Address: [address] [place] [address] Performed By: #### 5 7021-8 ####[facility] LABCLIA [id number] [place] [address] [place] Eosinophils (Bld) [#/Vol] 10*3/uL Normal <0.46 [facility] Comment on above: Order Comment: Speci men Type: BLOOD SPECIMENOrdering Facility: [facility] Address: [address] [place] [address] Performed By: #### 5 7021-8 ####[facility] LABCLIA [id number] [place] [address] [place] Eosinophils/100 WBC (Bld) 0.0 % Normal [facility] Comment on above: Order Comment: Speci men Type: BLOOD SPECIMENOrdering Facility: [facility] Address: [address] [place] [address] Performed By: #### 5 7021-8 ####[facility] LABCLIA [id number] [place] [address] [place] Erythrocyte distribution width (RBC) [Ratio] 15.6 % High 11.5-15.0 [facility] Comment on above: Order Comment: Speci men Type: BLOOD SPECIMENOrdering Facility: [facility] Address: [address] [place] [address] Performed By: #### 5 7021-8 ####[facility] LABCLIA [id number] [place] [address] [place] Hematocrit (Bld) [Volume fraction] 33.9 % Low 36.0-46.0 [facility] Comment on above: Order Comment: Speci men Type: BLOOD SPECIMENOrdering Facility: [facility] Address: [address] [place] [address] Performed By: #### 5 7021-8 ####[facility] LABCLIA [id number] [place] [address] [place] Hemoglobin (Bld) [Mass/Vol] 10.7 g/dL Low 11.5-15.5 [facility] Comment on above: Order Comment: Speci men Type: BLOOD SPECIMENOrdering Facility: [facility] Address: [address] [place] [address] Performed By: #### 5 7021-8 ####[facility] LABCLIA [id number] [place] [address] [place] Immature granulocytes (Bld) [#/Vol] 0.04 10*3/uL Normal <0.10 [facility] Comment on above: Order Comment: Speci men Type: BLOOD SPECIMENOrdering Facility: [facility] Address: [address] [place] [address] Performed By: #### 5 7021-8 ####[facility] LABCLIA [id number] [place] [address] [place] Immature granulocytes/100 WBC (Bld) 0.4 % Normal [facility] Comment on above: Order Comment: Speci men Type: BLOOD SPECIMENOrdering Facility: [facility] Address: [address] [place] [address] Performed By: #### 5 7021-8 ####[facility] LABCLIA [id number] [place] [address] [place] Lymphocytes (Bld) [#/Vol] 1.59 10*3/uL Normal 1.00-4.00 [facility] Comment on above: Order Comment: Speci men Type: BLOOD SPECIMENOrdering Facility: [facility] Address: [address] [place] [address] Performed By: #### 5 7021-8 ####[facility] LABCLIA [id number] [id number] [address] [place] Lymphocytes/100 WBC (Bld) 14.5 % Normal [facility] Comment on above: Order Comment: Speci men Type: BLOOD SPECIMENOrdering Facility: [facility] Address: [address] [place] [address] Performed By: #### 5 7021-8 ####[facility] LABCLIA [id number] [place] [address] [place] MCH (RBC) [Entitic mass] 25.7 pg Low 26.0-34.0 [facility] Comment on above: Order Comment: Speci men Type: BLOOD SPECIMENOrdering Facility: [facility] Address: [address] [place] [address] Performed By: #### 5 7021-8 ####[facility] LABCLIA [id number] [place] [address] [place] MCHC (RBC) [Mass/Vol] 31.6 g/dL Normal 30.5-36.0 [facility] Comment on above: Order Comment: Speci men Type: BLOOD SPECIMENOrdering Facility: [facility] Address: [address] [place] [address] Performed By: #### 5 7021-8 ####[facility] LABIA [id number] [place] [address] [place] MCV (RBC) [Entitic vol] 81.5 fL Normal 80.0-100.0 [facility] Comment on above: Order Comment: Speci men Type: BLOOD SPECIMENOrdering Facility: [facility] Address: [address] [place] [address] Performed By: #### 5 7021-8 ####[facility] LABCLIA [id number] [place] [address] [place] Monocytes (Bld) [#/Vol] 0.63 10*3/uL Normal <0.87 [facility] Comment on above: Order Comment: Speci men Type: BLOOD SPECIMENOrdering Facility: [facility] Address: [address] [place] [address] Performed By: #### 5 7021-8 ####[facility] LABCLIA [id number] [place] [address] [place] Monocytes/100 WBC (Bld) 5.8 % Normal [facility] Comment on above: Order Comment: Speci men Type: BLOOD SPECIMENOrdering Facility: [facility] Address: [address] [place] [address] Performed By: #### 5 7021-8 ####[facility] LABCLIA [id number] [place] [address] [place] Neutrophils (Bld) [#/Vol] 8.68 10*3/uL High 1.45-7.50 [facility] Comment on above: Order Comment: Speci men Type: BLOOD SPECIMENOrdering Facility: [facility] Address: [address] [place] [address] Performed By: #### 5 7021-8 ####[facility] LABIA [id number] [place] [address] [place] Neutrophils/100 WBC (Bld) 79.2 % Normal [facility] Comment on above: Order Comment: Speci men Type: BLOOD SPECIMENOrdering Facility: [facility] Address: [address] [place] [address] Performed By: #### 5 7021-8 ####[facility] LABCLIA [id number] [place] [address] [place] Nucleated RBC (Bld) [#/Vol] 10*3/uL Normal <0.01 [facility] Comment on above: Order Comment: Speci men Type: BLOOD SPECIMENOrdering Facility: [facility] Address: [address] [place] [address] Performed By: #### 5 7021-8 ####[facility] LABCLIA [id number] [place] [id number] [place] Nucleated RBC/100 WBC (Bld) [Ratio] 0.0 /100 WBC Normal [facility] Comment on above: Order Comment: Speci men Type: BLOOD SPECIMENOrdering Facility: [facility] Address: [address] [place] [address] Performed By: #### 5 7021-8 ####[facility] LABCLIA [id number] [place] [address] [place] Platelet mean volume (Bld) [Entitic vol] 12.0 fL Normal 9.0-12.7 [facility] Comment on above: Order Comment: Speci men Type: BLOOD SPECIMENOrdering Facility: [facility] Address: [address] [place] [address] Performed By: #### 5 7021-8 ####[facility] LABCLIA [id number] [place] [address] [place] Platelets (Bld) [#/Vol] 228 10*3/uL Normal 150-400 [facility] Comment on above: Order Comment: Speci men Type: BLOOD SPECIMENOrdering Facility: [facility] Address: [address] [place] [address] Performed By: #### 5 7021-8 ####[facility] LABCLIA [id number] [place] [address] [place] RBC (Bld) [#/Vol] 4.16 10*6/uL Normal 3.90-5.20 [facility] Comment on above: Order Comment: Speci men Type: BLOOD SPECIMENOrdering Facility: [facility] Address: [address] [place] [address] Performed By: #### 5 7021-8 ####[facility] LABCLIA [id number] [place] [address] [place] WBC (Bld) [#/Vol] 10.95 10*3/uL Normal 3.70-11.00 [facility] Comment on above: Order Comment: Speci men Type: BLOOD SPECIMENOrdering Facility: [facility] Address: [address] [place] [address] Performed By: #### 5 7021-8 ####[facility] MICAELA [id number] [id number] [address] [place] CNOVon 08-14-2024 CNOV Office Visit (FAMPWS ) -- ZACKERY NUNEZ ([id number]) 1960 F Date Time Provider Department 08/14/24 3:20 PM MIKAYLA STRANGE [facility] During your visit today, we recorded [...] meds. Headaches are stable. Sees Dr Ward. Seejoy Buck for rheumatoid arthritis. Had a post [...] MEDIALANDLAT C (more content not included)... Normal [facility] Comprehensive metabolic 2000 panelon 08-14-2024 Albumin [Mass/Vol] 4.1 g/dL Normal 3.9-4.9 [facility] Comment on above: Order Comment: Nery vidales Type: BLOOD SPECIMENOrdering Facility: [facility] Address: [address] [place] [address] Performed By: #### 2 4323-8 ####[facility] LABCLIA [id number] [place] [address] [place] ALP [Catalytic activity/Vol] 70 U/L Normal 34-123 [facility] Comment on above: Order Comment: Nery vidales Type: BLOOD SPECIMENOrdering Facility: [facility] Address: [address] [place] [address] Performed By: #### 2 4323-8 ####[facility] LABCLIA [id number] [place] [address] [place] ALT [Catalytic activity/Vol] 10 U/L Normal 7-38 [facility] Comment on above: Order Comment: Speci men Type: BLOOD SPECIMENOrdering Facility: [facility] Address: [address] [place] [address] Performed By: #### 2 4323-8 ####[facility] LABCLIA [id number] [place] [address] [place] Anion gap [Moles/Vol] 12 mmol/L Normal 8-15 [facility] Comment on above: Order Comment: Speci men Type: BLOOD SPECIMENOrdering Facility: [facility] Address: [address] [place] [address] Performed By: #### 2 4323-8 ####[facility] LABCLIA [id number] [place] [address] [place] AST [Catalytic activity/Vol] 20 U/L Normal 13-35 [facility] Comment on above: Order Comment: Speci men Type: BLOOD SPECIMENOrdering Facility: [facility] Address: [address] [place] [address] Performed By: #### 2 4323-8 ####[facility] LABCLIA [id number] [place] [address] [place] Bilirubin [Mass/Vol] mg/dL Low 0.2-1.3 [facility] Comment on above: Order Comment: Speci men Type: BLOOD SPECIMENOrdering Facility: [facility] Address: [address] [place], [place] [address] Performed By: #### 2 4323-8 ####[facility] LABCLIA [id number] [place] [address] [place] Calcium [Mass/Vol] 9.2 mg/dL Normal 8.5-10.2 [facility] Comment on above: Order Comment: Speci men Type: BLOOD SPECIMENOrdering Facility: [facility] Address: [address] [place] [address] Performed By: #### 2 4323-8 ####[facility] LABCLIA [id number] [place] [address] [place] Chloride [Moles/Vol] 98 mmol/L Normal 98-107 [facility] Comment on above: Order Comment: Speci men Type: BLOOD SPECIMENOrdering Facility: [facility] Address: [address] [place] [address] Performed By: #### 2 4323-8 ####[facility] LABCLIA [id number] [place] [address] [place] CO2 [Moles/Vol] 24 mmol/L Normal 22-30 [facility] Comment on above: Order Comment: Speci men Type: BLOOD SPECIMENOrdering Facility: [facility] Address: [address] [place] [address] Performed By: #### 2 4323-8 ####[facility] LABCLIA [id number] [place] [address] [place] Creatinine [Mass/Vol] 0.83 mg/dL Normal 0.58-0.96 [facility] Comment on above: Order Comment: Speci men Type: BLOOD SPECIMENOrdering Facility: [facility] Address: [address] [place] [address] Performed By: #### 2 4323-8 ####[facility] [facility] LABCLIA [id number] [place] [address] [place] Creatinine and Glomerular filtration rate.predicted panel (S/P/Bld) 78 mL/min/1.73m??? Normal >=60 [facility] Comment on above: Order Comment: Speci men Type: BLOOD SPECIMENOrdering Facility: [facility] Address: [address] [place] [address] Result Comment: Sienna mated Glomerular Filtration Rate [...] actual GFR. Performed By: #### 2 4323-8 ####[facility] LABIA [id number] [place] [address] [place] Glucose [Mass/Vol] 99 mg/dL Normal 74-99 [facility] Comment on above: Order Comment: Nery vidales Type: BLOOD SPECIMENOrdering Facility: [facility] Address: [address] [place] [address] Result Comment: The [place] Diabetes Association (ADA) provides guidance for cutoff [...] Standards of Medical Care in Diabetes 2016, [place] Diabetes Association. Diabetes Care. 2016.39(Suppl 1). Performed By: #### 2 4323-8 ####[facility] LABIA [id number] [place] [address] [place] Potassium [Moles/Vol] 3.9 mmol/L Normal 3.7-5.1 [facility] Comment on above: Order Comment: Nery vidales Type: BLOOD SPECIMENOrdering Facility: [facility] Address: [address] [place] [address] Performed By: #### 2 4323-8 ####[facility] LABIA [id number] [place] [address] [place] Protein [Mass/Vol] 7.4 g/dL Normal 6.3-8.0 [facility] Comment on above: Order Comment: Speci men Type: BLOOD SPECIMENOrdering Facility: [facility] Address: [address] [place] [address] Performed By: #### 2 4323-8 ####[facility] LABCLIA [id number] [place] [address] [place] Sodium [Moles/Vol] 134 mmol/L Low 136-144 [facility] Comment on above: Order Comment: Speci men Type: BLOOD SPECIMENOrdering Facility: [facility] Address: [address] [place] [address] Performed By: #### 2 4323-8 ####[facility] LABCLIA [id number] [place] [address] [place] Urea nitrogen [Mass/Vol] 15 mg/dL Normal 7-21 [facility] Comment on above: Order Comment: Speci men Type: BLOOD SPECIMENOrdering Facility: [facility] Address: [address] [place] [address] Performed By: #### 2 4323-8 ####[facility] LABCLIA [id number] [place] [address] [place] HbA1c (Bld)on 08-14-2024 Average glucose Estimated from glycated hemoglobin (Bld) [Mass/Vol] 114 mg/dL Normal [facility] Comment on above: Order Comment: Speci men Type: URINE SPECIMEN [facility] Address: [address] [place] [address] Result Comment: eAG: (Estimated average glucose) is a calculated value from HgbA1c and is ambulatory service representative of the average blood glucose level in the last 2-3 month period. Performed By: #### 2 4356-8 #### [facility] LAB CLIA [id number] [address] [place] [address] [place] HbA1c (Bld) [Mass fraction] 5.6 % Normal 4.3-5.6 [facility] Comment on above: Order Comment: Speci men Type: URINE SPECIMEN [facility] Address: [address] [place] [address] Result Comment: [place] Diabetes Association guidelines indicate that patients with HgbA1c in the range 5.7-6.4% are at increased risk for development of diabetes, and intervention by lifestyle modification may be beneficial. HgbA1c greater or equal to 6.5% is considered diagnostic of diabetes. Performed By: #### 2 4356-8 #### [facility] LAB CLIA [id number] [address] [place] [address] [place] URINALYSIS, REFLEX MICROSCOP ICon 08-14-2024 BACTERIA UL 3784.9 uL High Negative [facility] Comment on above: Order Comment: Speci men Type: URINE SPECIMENOrdering Facility: [facility] Address: [address] [place] [address] Performed By: #### L [id number] ####[facility] LABCLIA [id number] [place] [address] [place] Bilirubin Ql (U) Negative Normal Negative [facility] Comment on above: Order Comment: Speci men Type: URINE SPECIMENOrdering Facility: [facility] Address: [address] [place] [address] Performed By: #### L [id number] ####[facility] LABCLIA [id number] [place] [address] [place] Clarity (Unsp spec) Clear Normal Clear [facility] Comment on above: Order Comment: Speci men Type: URINE SPECIMENOrdering Facility: [facility] Address: [address] [place] [address] Performed By: #### L [id number] ####[facility] LABCLIA [id number] [place] [address] [place] Color (U) Yellow Normal Yellow [facility] Comment on above: Order Comment: Speci men Type: URINE SPECIMENOrdering Facility: [facility] Address: [address] [place] [address] Performed By: #### L [id number] ####[facility] LABCLIA [id number] [place] [address] [place] Epithelial cells LM.HPF (Urine sed) [#/Area] None Seen Normal [facility] Comment on above: Order Comment: Speci men Type: URINE SPECIMENOrdering Facility: [facility] Address: [address] [place] [address] Performed By: #### L [id number] ####[facility] LABCLIA [id number] [place] [address] [place] Glucose Test strip (U) [Mass/Vol] Negative Normal Negative [facility] Comment on above: Order Comment: Speci men Type: URINE SPECIMENOrdering Facility: [facility] Address: [address] [place] [address] Performed By: #### L [id number] ####[facility] LABCLIA [id number] [place] [address] [place] Hemoglobin Ql (U) Negative Normal Negative [facility] Comment on above: Order Comment: Speci men Type: URINE SPECIMENOrdering Facility: [facility] Address: [address] [place] [address] Performed By: #### L [id number] ####[facility] LABCLIA [id number] [place] [address] [place] Hyaline casts (Urine sed) [#/Area] 1-3 /LPF Abnormal 0 /LPF [facility] Comment on above: Order Comment: Speci men Type: URINE SPECIMENOrdering Facility: [facility] Address: [address] [place] [address] Performed By: #### L [id number] ####[facility] LABCLIA [id number] [place] [address] [place] Ketones Ql (U) Negative Normal Negative [facility] Comment on above: Order Comment: Speci men Type: URINE SPECIMENOrdering Facility: [facility] Address: [address] [place] [address] Performed By: #### L [id number] ####[facility] LABCLIA [id number] [place] [address] [place] Leukocyte esterase Test strip Ql (U) 2+ Abnormal Negative [facility] Comment on above: Order Comment: Speci men Type: URINE SPECIMENOrdering Facility: [facility] Address: [address] [place] [address] Performed By: #### L [id number] ####[facility] LABCLIA [id number] [place] [address] [place] Nitrite Ql (U) Negative Normal Negative [facility] Comment on above: Order Comment: Speci men Type: URINE SPECIMENOrdering Facility: [facility] Address: [address] [place] [address] Performed By: #### L [id number] ####[facility] LABCLIA [id number] [place] [address] [place] pH (U) 6.5 [pH] Normal <8.5 [facility] Comment on above: Order Comment: Speci men Type: URINE SPECIMENOrdering Facility: [facility] Address: [address] [place] [address] Performed By: #### L [id number] ####[facility] LABCLIA [id number] [place] [address] [place] Protein (U) [Mass/Vol] Negative Normal Negative [facility] Comment on above: Order Comment: Speci men Type: URINE SPECIMENOrdering Facility: [facility] Address: [address] [place] [address] Performed By: #### L [id number] ####[facility] LABCLIA [id number] [place] [address] [place] RBC LM.HPF (Urine sed) [#/Area] 0-2 /HPF Normal 0-2 /HPF [facility] Comment on above: Order Comment: Speci men Type: URINE SPECIMENOrdering Facility: [facility] Address: [address] [place] [address] Performed By: #### L [id number] ####[facility] LABIA [id number] [place] [address] [place] Specific gravity (U) [Rel density] 1.008 Normal 1.005-1.03 0 [facility] Comment on above: Order Comment: Speci men Type: URINE SPECIMENOrdering Facility: [facility] Address: [address] [place] [address] Performed By: #### L [id number] ####[facility] [id number] [place] [address] [place] Urobilinogen Ql (U) 0.2 EU/dL Normal 0.2-1.0 EU/dL [facility] Comment on above: Order Comment: Speci men Type: URINE SPECIMENOrdering Facility: [facility] Address: [address] [place] [address] Performed By: #### L [id number] ####[facility] [id number] [place] [address] [place] WBC LM.HPF (Urine sed) [#/Area] /[HPF] Abnormal 0-5 /HPF [facility] Comment on above: Order Comment: Speci men Type: URINE SPECIMENOrdering Facility: [facility] Address: [address] [place] [address] Performed By: #### L [id number] ####[facility] LABIA [id number] [place] [address] [place] Inital Evaluation (1) - PTon 08-07-2024 Inital Evaluation (1) - PT [facility] Physical Therapy [facility] [address] [place] [address] / REHABILITATION SERVICES INITIAL EVALUATION MR#: [id number] Acct: [id number] Name: ZACKERY NUNEZ Rep #: [id number] : 1960 64 From: Reuben TOMAST Referring Dr.: Sydni Waggoner MD Status: R EG RCR Insurance: MMO MEDICARE SELF PAY INSURANCE Patient's Visit Information [...] To improve ability (more content not included)... [facility] Office Visit (AGPOB1 ) -- ZACKERY NUNEZ ([id number]) 1960 F Date Time Provider Department 07/22/24 2:45 PM SYDNI WAGGONER BANNERB1 During your visit today, we recorded the [...] The patient has tolerated the right knee [id number] brace and maintained non-weightbearing recommendations with the [...] % ophthalmi (more content not included)... Normal [facility] XR Knee - right AP and Later malcolm 07-22-2024 2-view right knee x- rays demonstrate maintained length, alignment and rotation of the right periprosthetic proximal tibia fracture with intact orthopaedic implants. [facility] RADIOLOGY [facility] Radiology Study observation (narrative) [facility] Vijay [facility] ZACKERY NUNEZ ([id number]) 1960 F Date Time Provider Department 07/17/24 MIKAYLA STRANGE During your visit today, we recorded the following information about you: Mayela Urbano LPN 07/17/2024 9:25 AM Signed Porsha with [facility] calling to let [...] (morbid obesity*10/25/202204/26 (more content not included)... Normal [facility] Absolute lymphocyte countOrd ered By: Smita Buck on 07-12-2024 Lymphocytes Auto (Unsp spec) [#/Vol] 2.01 10*3/uL 0.83-4.51 [facility] Absolute neutrophil countOrd ered By: Smita Buck on 07-12-2024 Neutrophils (Bld) [#/Vol] 3.4 10*3/uL 2.0-7.7 [facility] Albumin to globulin ratioOrd ered By: Smita Buck on 07-12-2024 Albumin/Globulin [Mass ratio] 0.7 {ratio} Low 0.9-2.4 [facility] Automated lymphocyte count a s percentage of total leukocytesOrdered By: Smita Buck on 07-12-2024 Lymphocytes/100 WBC Auto (Unsp spec) 33.0 % 19-41 [facility] Basophil percentageOrdered B y: Smita Buck on 07-12-2024 Basophils/100 WBC (Bld) 0.7 % 0-1 [facility] Bilirubin, totalOrdered By: Smita Buck on 07-12-2024 Bilirubin [Mass/Vol] 0.30 mg/dL 0.20-1.00 [facility] Comment on above: For patients on eltr ombopag therapy, use of Dimension [place] TBIL is not recommended. Blood urea nitrogen (BUN)/cr eatinine ratioOrdered By: Smita Buck on 07-12-2024 Urea nitrogen/Creatinine [Mass ratio] 11.7 mg/mg 10-20 [facility] CBC W/Diff, Automatedon 06-26 Absolute Lymph 2.01 X10 3/uL Normal 0.83-4.51 [facility] Comment on above: Performed By: #### L 500.4050, L100.0100 #### [facility] Laboratory [address] [place], [address] Absolute Neut 3.4 X10 3/uL Normal 2.0-7.7 [facility] Comment on above: Performed By: #### L 500.4050, L100.0100 #### [facility] [address] [place], [address] Basophils/100 WBC (Bld) 0.7 % Normal 0-1 [facility] Comment on above: Performed By: #### L 500.4050, L100.0100 #### [facility] [address] [place], [address] Eosinophils/100 WBC (Bld) 3.6 % Normal 0-5 [facility] Comment on above: Performed By: #### L 500.4050, L100.0100 #### [facility] [address] [place], [address] Erythrocyte distribution width (RBC) [Ratio] 15.5 % High 11.6-14.6 [facility] Comment on above: Performed By: #### L 500.4050, L100.0100 #### [facility] [address] [place], [address] Hematocrit (Bld) [Volume fraction] 34.0 % Low 37-47 [facility] Comment on above: Performed By: #### L 500.4050, L100.0100 #### [facility] [address] [place], [address] Hemoglobin (Bld) [Mass/Vol] 10.1 g/dL Low 12.0-15.0 [facility] Comment on above: Performed By: #### L 500.4050, L100.0100 #### [facility] [address] [place], [address] IG% 0.200 Normal 0.0-0.9 [facility] Comment on above: Result Comment: IG% - Immature Granulocytes (promyelocytes, myelocytes and metamyelocytes) > 1% indicates that a LEFT SHIFT is Present. Performed By: #### L 500.4050, L100.0100 #### [facility] [address] [place], [address] Lymphocytes/100 WBC (Bld) 33.0 % Normal 19-41 [facility] Comment on above: Performed By: #### L 500.4050, L100.0100 #### [facility] [address] [place], [address] MCH (RBC) [Entitic mass] 25.3 pg Low 27.0-32.0 [facility] Comment on above: Performed By: #### L 500.4050, L100.0100 #### [facility] [address] [place], [address] MCHC (RBC) [Mass/Vol] 29.7 g/dL Low 32-36 [facility] Comment on above: Performed By: #### L 500.4050, L100.0100 #### [facility] [address] [place], [address] MCV (RBC) [Entitic vol] 85.2 fL Normal 81-99 [facility] Comment on above: Performed By: #### L 500.4050, L100.0100 #### [facility] [address] [place], [address] Monocytes/100 WBC (Bld) 6.9 % Normal 0-10 [facility] Comment on above: Performed By: #### L 500.4050, L100.0100 #### [facility] [address] [place], [address] Neutrophils/100 WBC (Bld) 55.6 % Normal 47-70 [facility] Comment on above: Performed By: #### L 500.4050, L100.0100 #### [facility] [address] [place], [address] Nucleated RBC (Bld) [#/Vol] 0 10*3/uL Normal 0-5 [facility] Comment on above: Performed By: #### L 500.4050, L100.0100 #### [facility] [address] [place], [address] Platelet mean volume (Bld) [Entitic vol] 10.6 fL Normal 6.2-12.0 [facility] Comment on above: Performed By: #### L 500.4050, L100.0100 #### [facility] [address] [place], [address] Platelets (Bld) [#/Vol] 395 10*3/uL Normal 150-450 [facility] Comment on above: Performed By: #### L 500.4050, L100.0100 #### [facility] [address] [place], [address] RBC (Bld) [#/Vol] 3.99 10*6/uL Low 4.2-5.4 [facility] Comment on above: Performed By: #### L 500.4050, L100.0100 #### [facility] [address] [place], [address] RDW SD 48.8 fl High 35.1-43.9 [facility] Comment on above: Performed By: #### L 500.4050, L100.0100 #### [facility] [address] [place], [address] WBC (Bld) [#/Vol] 6.1 10*3/uL Normal 4.4-11.0 [facility] Comment on above: Performed By: #### L 500.4050, L100.0100 #### [facility] [address] [place], [address] CNPNon 07-12-2024 [facility]) -- ZACKERY NUNEZ ([id number]) 1960 F Date Time Provider Department 07/12/24 MIKAYLA STRANGE [facility] During your visit today, we recorded the following information about you: Makenna Crowder, RN 07/12/2024 8:47 AM Signed Srikanth PT from [facility] Call[facility] and states that patient was supposed to be evaluated for home PT this week. Patient is requesting that the evaluation be next week. Srikanth states that he needs verbal order to be able to visit patient next week. Makenna Crowder, Mikayla Mccann MD 07/12/2024 8:48 AM Signed Ok to do Adriano Paniagua RN 07/12/2024 10:58 AM Signed Left detailed vm [...] obesity*10/25/2022 05/12/2023 (more content not included)... Normal [facility] Carbon dioxide measurementOr dered By: Smita Buck on 07-12-2024 CO2 [Moles/Vol] 23.0 mmol/L 21.0-32.0 [facility] Chloride measurementOrdered By: Smita Buck on 07-12-2024 Chloride [Moles/Vol] 101 mmol/L 98-107 [facility] Comprehensive Metabolic Prof ilon 07-12-2024 Albumin [Mass/Vol] 3.0 g/dL Low 3.2-5.0 [facility] Comment on above: Performed By: #### L 500.4050, L100.0100 #### [facility] [address] [place], [address] Albumin/Globulin [Mass ratio] 0.7 {ratio} Low 0.9-2.4 [facility] Comment on above: Performed By: #### L 500.4050, L100.0100 #### [facility] [address] [place], [address] ALK P 102 U/L Normal 45-117 [facility] Comment on above: Performed By: #### L 500.4050, L100.0100 #### [facility] [address] [place], [address] ALT [Catalytic activity/Vol] 12 U/L Low 13-56 [facility] Comment on above: Performed By: #### L 500.4050, L100.0100 #### [facility] [address] [place], [address] AST [Catalytic activity/Vol] 19 U/L Normal 15-37 [facility] Comment on above: Performed By: #### L 500.4050, L100.0100 #### [facility] [address] [place], [address] Bilirubin [Mass/Vol] 0.30 mg/dL Normal 0.20-1.00 [facility] Comment on above: Result Comment: For patients on eltrombopag therapy, use of Dimension [place] TBIL is not recommended. Performed By: #### L 500.4050, L100.0100 #### [facility] [address] [place], [address] BUN/CRE 11.7 RATIO Normal 10-20 [facility] Comment on above: Performed By: #### L 500.4050, L100.0100 #### [facility] [address] [place], [address] CA,Total 9.4 mg/dL Normal 8.5-10.1 [facility] Comment on above: Performed By: #### L 500.4050, L100.0100 #### [facility] [address] [place], [address] Chloride [Moles/Vol] 101 mmol/L Normal 98-107 [facility] Comment on above: Performed By: #### L 500.4050, L100.0100 #### [facility] [address] [place], [address] CO2 [Moles/Vol] 23.0 mmol/L Normal 21.0-32.0 [facility] Comment on above: Performed By: #### L 500.4050, L100.0100 #### [facility] [address] [place], [address] Creatinine [Mass/Vol] 1.11 mg/dL High 0.55-1.02 [facility] Comment on above: Result Comment: The validity of the calculated GFR GFRAA in patients over 70 years has not been determined. Clinical correlation is essential. Performed By: #### L 500.4050, L100.0100 #### [facility] [address] [place], [address] EST GFR - AA 63 mL/min Normal >60 [facility] Comment on above: Result Comment: Afri can [place] GFR Calc Performed By: #### L 500.4050, L100.0100 #### [facility] [address] [place], [address] GAP 10 Normal 5-15 [facility] Comment on above: Performed By: #### L 500.4050, L100.0100 #### [facility] [address] [place], [address] GFR/1.73 sq M.predicted among non-blacks MDRD (S/P/Bld) [Vol rate/Area] 52 mL/min/{1.73_m2} Low >60 [facility] Comment on above: Result Comment: Non- GFR Calc Performed By: #### L 500.4050, L100.0100 #### [facility] [address] [place], [address] Globulin (S) [Mass/Vol] 4.5 g/dL High 2.2-4.2 [facility] Comment on above: Performed By: #### L 500.4050, L100.0100 #### [facility] [address] [place], [address] Glucose [Mass/Vol] 89 mg/dL Normal 74-106 [facility] Comment on above: Performed By: #### L 500.4050, L100.0100 #### [facility] [address] [place], [address] Potassium [Moles/Vol] 4.1 mmol/L Normal 3.5-5.1 [facility] Comment on above: Performed By: #### L 500.4050, L100.0100 #### [facility] [address] [place], [address] Sodium [Moles/Vol] 134 mmol/L Low 136-145 [facility] Comment on above: Performed By: #### L 500.4050, L100.0100 #### [facility] [address] [place], [address] T PROT 7.5 g/dL Normal 6.4-8.2 [facility] Comment on above: Performed By: #### L 500.4050, L100.0100 #### [facility] [address] [place], [address] Urea nitrogen [Mass/Vol] 13 mg/dL Normal 7-18 [facility] Comment on above: Performed By: #### L 500.4050, L100.0100 #### [facility] [address] [place], [address] Eosinophil percentageOrdered By: Smita Buck on 07-12-2024 Eosinophils/100 WBC (Bld) 3.6 % 0-5 [facility] Erythrocyte distribution wid th ratioOrdered By: Smita Buck on 07-12-2024 Erythrocyte distribution width (RBC) [Ratio] 15.5 % High 11.6-14.6 [facility] Erythrocyte distribution wid th standard deviationOrdered By: Smita Buck on 07-12-2024 Erythrocyte distribution width (RBC) [Entitic vol] 48.8 fL High 35.1-43.9 [facility] Erythrocyte distribution width (RBC) [Ratio] 48.8 fl High 35.1-43.9 [facility] Estimated glomerular filtrat ion rate (GFR) AmericanOrdered By: Smita Buck on 07-12-2024 Estimated GFR (MDRD) Amer 63 mL/min >60 [facility] Comment on above: GFR Calc Glomerular filtration rate ( GFR) estimationOrdered By: Smita Buck on 07-12-2024 Estimated GFR (MDRD) Non-Af Amer 52 mL/min Low >60 [facility] Comment on above: Non- GFR Calc GFR/1.73 sq M.predicted among non-blacks MDRD (S/P/Bld) [Vol rate/Area] 52 mL/min/{1.73_m2} Low >60 [facility] Comment on above: Non- GFR Calc Glucose measurementOrdered B y: Smita Buck on 07-12-2024 Glucose [Mass/Vol] 89 mg/dL 74-106 [facility] Hematocrit Auto (Bld) [Volum e fraction]Ordered By: Smita Buck on 07-12-2024 Hematocrit (Bld) [Volume fraction] 34.0 % Low 37-47 [facility] Hemoglobin measurementOrdere d By: Smita Buck on 07-12-2024 Hemoglobin (Bld) [Mass/Vol] 10.1 g/dL Low 12.0-15.0 [facility] Immature granulocytes/100 WB C Auto (Bld)Ordered By: Smita Buck on 07-12-2024 Immature granulocytes/100 WBC (Bld) 0.200 % 0.0-0.9 [facility] Comment on above: IG% - Immature Granu locytes (promyelocytes, myelocytes and metamyelocytes) > 1% indicates that a LEFT SHIFT is Present. Laboratory - Chemistry and C hemistry - challengeOrdered By: Smita Buck on 07-12-2024 AST [Catalytic activity/Vol] 19 U/L 15-37 [facility] Lymphocytes Auto (Unsp spec) [#/Vol]Ordered By: Smita Buck on 07-12-2024 Lymphocytes (Bld) [#/Vol] 2.01 10*3/uL 0.83-4.51 [facility] Lymphocytes/100 WBC Auto (Un sp spec)Ordered By: Smita Buck on 07-12-2024 Lymphocytes/100 WBC (Bld) 33.0 % 19-41 [facility] MCV (mean corpuscular volume ) determinationOrdered By: Smita Buck on 07-12-2024 MCV (RBC) [Entitic vol] 85.2 fL 81-99 [facility] Mean corpuscular hemoglobin (MCH) determinationOrdered By: Smita Buck on 07-12-2024 MCH (RBC) [Entitic mass] 25.3 pg Low 27.0-32.0 [facility] Mean corpuscular hemoglobin concentration (MCHC) determinationOrdered By: Smita Buck on 07-12-2024 MCHC (RBC) [Mass/Vol] 29.7 g/dL Low 32-36 [facility] Mean platelet volume determi nationOrdered By: Smita Buck on 07-12-2024 Platelet mean volume (Bld) [Entitic vol] 10.6 fL 6.2-12.0 [facility] Monocyte percentageOrdered B y: Smita Buck on 07-12-2024 Monocytes/100 WBC (Bld) 6.9 % 0-10 [facility] Neutrophil percentageOrdered By: Smita Buck on 07-12-2024 Neutrophils/100 WBC (Bld) 55.6 % 47-70 [facility] Nucleated red blood cell per centageOrdered By: Smita Buck on 07-12-2024 Nucleated RBC/100 WBC (Bld) [Ratio] 0 % 0-5 [facility] Platelet countOrdered By: Jerilyn Buck on 07-12-2024 Platelets (Bld) [#/Vol] 395 10*3/uL 150-450 [facility] Potassium measurementOrdered By: Smita Buck on 07-12-2024 Potassium [Moles/Vol] 4.1 mmol/L 3.5-5.1 [facility] RBC Auto (Bld) [#/Vol]Ordere d By: Smita Buck on 07-12-2024 RBC (Bld) [#/Vol] 3.99 10*6/uL Low 4.2-5.4 [facility] Serum anion gap measurementO rdered By: Smita Buck on 07-12-2024 Anion gap [Moles/Vol] 10 mmol/L 5-15 [facility] Serum globulin measurementOr dered By: Smita Buck on 07-12-2024 Globulin (S) [Mass/Vol] 4.5 g/dL High 2.2-4.2 [facility] Serum or plasma alanine cyr otransferase (ALT) measurementOrdered By: Smita Buck on 07-12-2024 ALT [Catalytic activity/Vol] 12 U/L Low 13-56 [facility] Serum or plasma albumin francisco urement (mass/volume)Ordered By: Smita Buck on 07-12-2024 Albumin [Mass/Vol] 3.0 g/dL Low 3.2-5.0 [facility] Serum or plasma alkaline john sphatase measurementOrdered By: Smita Buck on 07-12-2024 ALP [Catalytic activity/Vol] 102 U/L 45-117 [facility] Serum or plasma calcium francisco urement (mass/volume)Ordered By: Smita Buck on 07-12-2024 Calcium [Mass/Vol] 9.4 mg/dL 8.5-10.1 [facility] Serum or plasma creatinine m easurement (mass/volume)Ordered By: Smita Buck on 07-12-2024 Creatinine [Mass/Vol] 1.11 mg/dL High 0.55-1.02 [facility] Comment on above: The validity of the calculated GFR & GFRAA in patients over 70 years has not been determined. Clinical correlation is essential. Serum or plasma urea nitroge n measurement (mass/volume)Ordered By: Smiat Buck on 07-12-2024 Urea nitrogen [Mass/Vol] 13 mg/dL 7-18 [facility] Sodium levelOrdered By: Vero Buck on 07-12-2024 Sodium [Moles/Vol] 134 mmol/L Low 136-145 [facility] Total proteinOrdered By: Christopher hendricks Cielo on 07-12-2024 Protein [Mass/Vol] 7.5 g/dL 6.4-8.2 [facility] White blood cell (WBC) count Ordered By: Smita Cielo on 07-12-2024 WBC (Bld) [#/Vol] 6.1 10*3/uL 4.4-11.0 [facility] ANES POSTPROC EVALon 025 ANES POSTPROC EVAL HNO ID: [id number] Author: SYDNI ESTRELLA DO Service: Anesthesiology Author Type: Physician Type: Anesthesia Postprocedure Evaluation Filed: 07/05/2024 16:11 Note Text: POST ANESTHESIA EVALUATION NOTE : 1960 Procedure Summary Date: 07/02/24 [place] [address] [place] [address] OR Anesthesia Start: 1953 Anesthesia Stop: 2007 [...] SIGNATURE: Sydni Estrella DO PATIENT NAME: Zackery Nunez DATE: July 05, 2024 TIME: 4:11 PM CSN: [id number] [facility] CNPNon 07-03-2024 CNPN Telephone (AGPOB1) -- ZACKERY NUNEZ ([id number]) 1960 F Date Time Provider Department 07/03/24 AG ORTH AGPOB1 During your visit today, we recorded the following information about you: Rosemary Najera 07/03/2024 12:54 PM Signed Adeline from [facility] calling to get orders for PT for this patient Rosemary Severino, Rosemary 07/03/2024 3:43 PM Signed Sydni Waggoner MD You15 minutes ago (3:27 PM) NWB with active knee range of motion Lisset Severino Rosemary 07/03/2024 3:43 PM Signed Called and left message for Adeline Severino Allergies As of Date: 07/03/2024 Noted Allergy [...] without sta*05/11/2019 Chronic back pain [M54.9, G89.29] 09/17/ (more content not included)... Normal [facility] ANES PRE-OPon 07-02-2024 ANES PRE-OP HNO ID: [id number] Author: RADHA WAGNER MD Service: Anesthesiology Author Type: Anesthesiologist Type: Anesthesia Preprocedure Evaluation Filed: 07/02/2024 17:29 Note Text: ANESTHESIOLOGY DAY OF SURGERY NOTE : 1960 Procedure Information Date/Time: 07/02/241847 Procedure: REMOVAL EXTERNAL FIXATION SYSTEM UNDER ANESTHESIA (Right: Leg below knee) Location[place] Surgeons: Sydni Waggoner MD Estimated body [...] and consent discussed: yes. Patient / Responsible Republican agrees to proceed: yes Patient / Surrogate agrees to blood products: blood products not planned Potential Anesthesia issues that may suggest increased risk of complications or contraindication to planned procedure: none. Vitals Value Taken Time BP 129/87 07/02/24 1651 Pulse 79 07/02/24 1651 Resp 18 07/02/24 1651 Temp 37 ?C (98.6 ?F) 07/02/24 1651 SpO2 100 % 07/02/24 165 No current facility-administered medications on file as [...] This contai (more content not included)... Normal [facility] BRIEF OP NOTon 07-02-2024 BRIEF OP NOT HNO ID: [id number] Author: SAHARA ROYAL MD Service: Orthopaedic Surgery Author Type: Resident Type: Brief Op Note Filed: 07/02/2024 20:15 Note Text: Orthopaedic Surgery Brief Operative Note Log ID: [id number] Surgery/Procedure Date: 07/02/2024 Incision/Procedure Start Time: 7:56 PM Incision Close/Procedure End Time: 8:01 PM Surgeon(s)/Proceduralist(s ) and External Relations Director(s): Surgeons and Role: * Sydni Waggoner MD [...] MD Orthopedic Surgery Resident 07/02/24 8:13 PM [facility] HISTORY PHYSICALon HISTORY PHYSICAL HNO ID: [id number] Author: SYDNI WAGGONER MD Service: Orthopaedic Surgery [...] Waggoner MD Orthopaedic Surgery 07/02/2024 7:40 PM [facility] OPERATIVE NOon 07-02-2024 OPERATIVE NO HNO ID: [id number] Author: SYDNI WAGGONER MD Service: Orthopaedic Surgery Author Type: Physician Type: Operative Report Filed: 07/04/2024 10:47 Note Text: OPERATIVE/PROCEDURE REPORT LOG ID: [id number] SURGERY/PROCEDURE DATE: 07/02/2024 INCISION/PROCEDURE START TIME: 7:56 PM INCISION CLOSE/PROCEDURE END TIME: 8:01 PM SURGEON(S)/PROCEDURALIST(S ) AND FREQUENCY CHECKER(S): Surgeons and Role: * Sydni Waggoner MD [...] Knee-Spanning Uniplanar External Fixator Requiring Anesthesia (CPT 83387) ANESTHESIA: 1) Monitored Anesthesia Care ANTIBIOTICS: 1) None ESTIMATED BLOOD LOSS: 1) 5 CC FLUIDS: 1) Per Anesthesia Documentation SPECIMENS: 1) None CLINICAL INDICATIONS: 64 year old female sustained a right periprosthetic proximal tibia fracture and underwent open reduction internal fixation and application of a knee-spanning uniplanar external fixator on 05/07/2024. The patient has been recovering at a long term facility. The patient was scheduled for removal [...] time-out was then conducted in accordance with [facility] policy. After all members of the [...] to the right lower extremity. A knee wjfmy-ix-amdorm brace was applied to the right lower extremity. The patient was transferred to PACU in stable condition with anesthesia. Verification of the procedure was completed prior to transfer to PACU. IMPLANTABLE DEVICES: None DRAINS: None COMPLICATIONS: None PARTICIPATION IN SURGERY/PROCEDURE: I/primary surgeon/proceduralist performed the procedure with assistance. POST-OPERATIVE PLAN: -Management per orthopaedic trauma surgery -Maintain knee nozxb-xv-lzjpki brace to the right lower extremity -PT/OT: [...] SIGNATURE: Sydni Waggoner MD PATIENT NAME: Zackery Germanshirley DATE: July 04, 2024 TIME: 10:30 AM Normal [facility] CNPNon 07-01-2024 CNPN Telephone (AGPOB1) -- ZACKERY NUNEZ ([id number]) 1960 F Date Time Provider Department 07/01/24 SYDNI WAGGONER AGJANETHB1 During your visit today, we recorded the following information about you: Teresa Crawford 07/01/2024 1:32 PM Signed I called patient and talked with the patient. Have you completed the OME Survey via [employer]? 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 Normal [facility] CNPN Telephone (AGPOB1) -- ZACKERY NUNEZ ([id number]) 1960 F Date Time Provider Department 07/01/24 [...] encounter [M97.11XD] Order(s):SURGICAL REQUEST - ELECTIVE (01/2020) [1702836] Order #: [id number]: 1 Prescriptions as of 07/01/2024 - sulfamethoxazole-trimethop [...] Class II (more content not included)... Normal [facility] Bacteria Bld Culton 06-30-19 25 Bacteria identified Cx Nom (Bld) CULTURE, BLOOD: No growth 5 days Normal [facility] Comment on above: Performed By: #### 6 00-7 ####[facility]ORYCLIA [id number] [address] [place] Bacteria identified Cx Nom (Bld) CULTURE, BLOOD: No growth 5 days Normal [facility] Comment on above: Performed By: #### 6 00-7 #### [facility] CLIA [id number] [address] [place] Basic metabolic 2000 panelon 06-30-2024 Anion gap [Moles/Vol] 15 mmol/L Normal 8-15 [facility] Comment on above: Order Comment: Speci men Type: BLOOD SPECIMENOrdering Facility: [facility] Address: [address] [place] [address] Performed By: #### 6 -7 #### [facility] CLIA [id number] [address] [place] [address] [place] Calcium [Mass/Vol] 9.0 mg/dL Normal 8.5-10.2 [facility] Comment on above: Order Comment: Speci men Type: BLOOD SPECIMENOrdering Facility: [facility] Address: [address] [place] [address] Performed By: #### 6 -7 #### [facility] CLIA [id number] [address] [place] [address] [place] Chloride [Moles/Vol] 94 mmol/L Low 98-107 [facility] Comment on above: Order Comment: Speci men Type: BLOOD SPECIMENOrdering Facility: [facility] Address: [address] [place] [address] Performed By: #### 6 00-7 #### [facility] CLIA [id number] [address] [place] [address] [place] CO2 [Moles/Vol] 20 mmol/L Low 22-30 [facility] Comment on above: Order Comment: Speci men Type: BLOOD SPECIMENOrdering Facility: [facility] Address: [address] [place] [address] Performed By: #### 6 00-7 #### [facility] CLIA [id number] [address] Creatinine [Mass/Vol] 1.25 mg/dL High 0.58-0.96 [facility] Comment on above: Order Comment: Speci men Type: BLOOD SPECIMENOrdering Facility: [facility] Address: [address] [place] [address] Performed By: #### 6 00-7 #### [facility] CLIA [id number] [address] Creatinine and Glomerular filtration rate.predicted panel (S/P/Bld) 48 mL/min/1.73m??? Low >=60 [facility] Comment on above: Order Comment: Speci men Type: BLOOD SPECIMENOrdering Facility: [facility] Address: [address] [place] [address] Result Comment: Sienna mated Glomerular Filtration Rate [...] GFR. Performed By: #### 6 00-7 #### [facility] CLIA [id number] [address] STATES OF [facility] Glucose [Mass/Vol] 116 mg/dL High 74-99 [facility] Comment on above: Order Comment: Speci men Type: BLOOD SPECIMENOrdering Facility: [facility] Address: [address] [place] [address] Result Comment: The [place] [employer] (ADA) provides guidance for cutoff [...] Standards of Medical Care in Diabetes 2016, [place] [employer]. Diabetes Care. 2016.39(Suppl 1). Performed By: #### 6 00-7 #### [facility] CLIA [id number] [address] [place] [facility] Potassium [Moles/Vol] 3.9 mmol/L Normal 3.7-5.1 [facility] Comment on above: Order Comment: Nery vidales Type: BLOOD SPECIMENOrdering Facility: [facility] Address: [address] [place] [address] Performed By: #### 6 00-7 #### [facility] CLIA [id number] [address] Sodium [Moles/Vol] 129 mmol/L Low 136-144 [facility] Comment on above: Order Comment: Nery vidales Type: BLOOD SPECIMENOrdering Facility: [facility] Address: [address] [place] [address] Performed By: #### 6 00-7 #### [facility] CLIA [id number] [address] Urea nitrogen [Mass/Vol] 17 mg/dL Normal 7-21 [facility] Comment on above: Order Comment: Cji men Type: BLOOD SPECIMENOrdering Facility: [facility] Address: [address] [place] [address] Performed By: #### 6 00-7 #### [facility] CLIA [id number] [address] CBC W Auto Differential pane l (Bld)on 06-30-2024 Basophils (Bld) [#/Vol] 0.06 10*3/uL Normal <0.11 [facility] Comment on above: Order Comment: Cji men Type: BLOOD SPECIMENOrdering Facility: [facility] Address: [address] [place] [address] Performed By: #### 5 7021-8 ####[facility]ORYCLIA [id number] [address] [place] Basophils/100 WBC (Bld) 0.7 % Normal [facility] Comment on above: Order Comment: Speci men Type: BLOOD SPECIMENOrdering Facility: [facility] Address: [address] [place] [address] Performed By: #### 5 7021-8 ####[facility]ORYCLIA [id number] [address] [place] Differential cell count method Nom (Bld) Auto Normal [facility] Comment on above: Order Comment: Speci men Type: BLOOD SPECIMENOrdering Facility: [facility] Address: [address] [place] [address] Performed By: #### 5 7021-8 ####[facility]ORYCLIA [id number] [address] [place] Eosinophils (Bld) [#/Vol] 0.27 10*3/uL Normal <0.46 [facility] Comment on above: Order Comment: Speci men Type: BLOOD SPECIMENOrdering Facility: [facility] Address: [address] [place] [address] Performed By: #### 5 7021-8 ####[facility]ORYCLIA [id number] [address] [place] Eosinophils/100 WBC (Bld) 3.0 % Normal [facility] Comment on above: Order Comment: Speci men Type: BLOOD SPECIMENOrdering Facility: [facility] Address: [address] [place] [address] Performed By: #### 5 7021-8 ####[facility]ATORYCLIA [id number] [address] [place] Erythrocyte distribution width (RBC) [Ratio] 14.8 % Normal 11.5-15.0 [facility] Comment on above: Order Comment: Speci men Type: BLOOD SPECIMENOrdering Facility: [facility] Address: [address] [place] [address] Performed By: #### 5 7021-8 ####[facility]ORATORYCLIA [id number] [address] [place] Hematocrit (Bld) [Volume fraction] 32.3 % Low 36.0-46.0 [facility] Comment on above: Order Comment: Speci men Type: BLOOD SPECIMENOrdering Facility: [facility] Address: [address] [place] [address] Performed By: #### 5 7021-8 ####[facility]ORATORYCLIA [id number] [address] [place] Hemoglobin (Bld) [Mass/Vol] 10.2 g/dL Low 11.5-15.5 [facility] Comment on above: Order Comment: Speci men Type: BLOOD SPECIMENOrdering Facility: [facility] Address: [address] [place] [address] Performed By: #### 5 7021-8 ####[facility]ORATORYCLIA [id number] [address] [place] Immature granulocytes (Bld) [#/Vol] 0.03 10*3/uL Normal <0.10 [facility] Comment on above: Order Comment: Speci men Type: BLOOD SPECIMENOrdering Facility: [facility] Address: [address] [place] [address] Performed By: #### 5 7021-8 ####[facility]ORATORYCLIA [id number] [address] [place] Immature granulocytes/100 WBC (Bld) 0.3 % Normal [facility] Comment on above: Order Comment: Speci men Type: BLOOD SPECIMENOrdering Facility: [facility] Address: [address] [place] [address] Performed By: #### 5 7021-8 ####[facility]ORATORYCLIA [id number] [address] [place] Lymphocytes (Bld) [#/Vol] 2.72 10*3/uL Normal 1.00-4.00 [facility] Comment on above: Order Comment: Speci men Type: BLOOD SPECIMENOrdering Facility: [facility] Address: [address] [place] [address] Performed By: #### 5 7021-8 ####[facility]ORATORYCLIA [id number] [address] Lymphocytes/100 WBC (Bld) 30.1 % Normal [facility] Comment on above: Order Comment: Speci men Type: BLOOD SPECIMENOrdering Facility: [facility] Address: [address] [place] [address] Performed By: #### 5 7021-8 ####[facility]ORATORYCLIA [id number] [address] [place] MCH (RBC) [Entitic mass] 26.7 pg Normal 26.0-34.0 [facility] Comment on above: Order Comment: Speci men Type: BLOOD SPECIMENOrdering Facility: [facility] Address: [address] [place] [address] Performed By: #### 5 7021-8 ####[facility]ORATORYCLIA [id number] [address] [place] MCHC (RBC) [Mass/Vol] 31.6 g/dL Normal 30.5-36.0 [facility] Comment on above: Order Comment: Speci men Type: BLOOD SPECIMENOrdering Facility: [facility] Address: [address] [place] [address] Performed By: #### 5 7021-8 ####[facility]ORATORYCLIA [id number] [address] [place] MCV (RBC) [Entitic vol] 84.6 fL Normal 80.0-100.0 [facility] Comment on above: Order Comment: Speci men Type: BLOOD SPECIMENOrdering Facility: [facility] Address: [address] [place] [address] Performed By: #### 5 7021-8 ####[facility]ATORYCLIA [id number] [address] [place] Monocytes (Bld) [#/Vol] 0.73 10*3/uL Normal <0.87 [facility] Comment on above: Order Comment: Speci men Type: BLOOD SPECIMENOrdering Facility: [facility] Address: [address] [place] [address] Performed By: #### 5 7021-8 ####[facility]ORATORYCLIA [id number] [place] [address] [place] Monocytes/100 WBC (Bld) 8.1 % Normal [facility] Comment on above: Order Comment: Speci men Type: BLOOD SPECIMENOrdering Facility: [facility] Address: [address] [place] [address] Performed By: #### 5 7021-8 ####[facility]ORATORYCLIA [id number] [place] [address] [place] Neutrophils (Bld) [#/Vol] 5.24 10*3/uL Normal 1.45-7.50 [facility] Comment on above: Order Comment: Speci men Type: BLOOD SPECIMENOrdering Facility: [facility] Address: [address] [place] [address] Performed By: #### 5 7021-8 ####[facility]ORATORYCLIA [id number] [address] [place] Neutrophils/100 WBC (Bld) 57.8 % Normal [facility] Comment on above: Order Comment: Speci men Type: BLOOD SPECIMENOrdering Facility: [facility] Address: [address] [place] [address] Performed By: #### 5 7021-8 ####[facility]ORATORYCLIA [id number] [place] [address] [place] Nucleated RBC (Bld) [#/Vol] 10*3/uL Normal <0.01 [facility] Comment on above: Order Comment: Speci men Type: BLOOD SPECIMENOrdering Facility: [facility] Address: [facility] [place] [address] Performed By: #### 5 7021-8 ####[facility]ORATORYCLIA [id number] [address] [place] Nucleated RBC/100 WBC (Bld) [Ratio] 0.0 /100 WBC Normal [facility] Comment on above: Order Comment: Speci men Type: BLOOD SPECIMENOrdering Facility: [facility] Address: [address] [place] [address] Performed By: #### 5 7021-8 ####[facility]ORATORYCLIA [id number] [address] [place] Platelet mean volume (Bld) [Entitic vol] 9.5 fL Normal 9.0-12.7 [facility] Comment on above: Order Comment: Speci men Type: BLOOD SPECIMENOrdering Facility: [facility] Address: [address] [place] [address] Performed By: #### 5 7021-8 ####[facility]ATORYCLIA [id number] [address] OF [facility] Platelets (Bld) [#/Vol] 536 10*3/uL High 150-400 [facility] Comment on above: Order Comment: Speci men Type: BLOOD SPECIMENOrdering Facility: [facility] Address: [address] [place] [address] Performed By: #### 5 7021-8 ####[facility]ATORYCLIA [id number] [address] [place] RBC (Bld) [#/Vol] 3.82 10*6/uL Low 3.90-5.20 [facility] Comment on above: Order Comment: Speci men Type: BLOOD SPECIMENOrdering Facility: [facility] Address: [address] [place] [address] Performed By: #### 5 7021-8 ####[facility]ATORYCLIA [id number] [address] [place] WBC (Bld) [#/Vol] 9.05 10*3/uL Normal 3.70-11.00 [facility] [facility] Comment on above: Order Comment: Speci men Type: BLOOD SPECIMENOrdering Facility: [facility] Address: [address] [place] [address] Performed By: #### 5 7021-8 ####[facility] LABORATORYCLIA [id number] [place] [address] [place] CONSULTon 06-30-2024 CONSULT HNO ID: [id number] Author: SYDNI WAGGONER MD Service: Orthopaedic Surgery [...] 9:25 AM ORTHOPAEDIC SURGERY CONSULT Pt: ZACKERY NUNEZ Date of Consultation: 06/30/2024 Physician Consulted: Dr. [...] was told that initial wound culture from [facility] on 06/24 was positive for MRSA. PAST [...] mouth onc (more content not included)... Normal [facility] Culture, Blood (WB)on 20[address] [facility] Blood cultures x2, f rom two different sites No growth in 5 days. Normal [facility] Comment on above: Performed By: #### L 300.3900, L501.5425, L503.6620, L300.4310, L300.8000, L500.2500, L503.6005, L100.0100 #### [facility] [address] [place], [address] [facility] Blood cultures x2, f rom two different sites GRAM STAIN= GRAM POSITIVE COCCI IN CLUSTERS AEROBIC BOTTLE POSITIVE Culture, Blood (WB) RESULTS CALLED/PRINTED TO VISHAL 06/26/24 0930 Jane Lawrence. REPORT READ BACK BY SAME. Culture, Blood (WB) MRSA RESULTS CALLED TO MATEO SOLORZANO 06/28/24 0749 Kiara Salas. REPORT READ BACK BY . Culture, Blood (WB) Copy of report sent to Infection Control Printer MS#[id number] 06/28/24 4773 ANUJA. Meth. resistant Staph. aureus Amount Growth Growth [...] S Vancomycin Islt MANUEL 1 S Normal [facility] Comment on above: Performed By: #### L 300.3900, L501.5425, L503.6620, L300.4310, L300.8000, L500.2500, L503.6005, L100.0100 #### [facility] [place], [address] ED NOTEon 06-30-2024 ED NOTE HNO ID: [id number] Author: ANA ROSA BRANDT RN Service: Emergency Medicine Author Type: Registered Nurse Type: ED Notes Filed: 06/30/2024 02:25 Note Text: Ortho consult at bedside at this time [facility] ED NOTE HNO ID: [id number] Author: ANA ROSA BRANDT RN Service: Emergency Medicine Author Type: Registered Nurse Type: ED Notes Filed: 06/30/2024 01:43 Note Text: Provider notified of pt hypotensive readings. Pt mentation remains intact, asymptomatic at this time. Pt remains connected to the athletic monitor, SpO2 on RA and NIBP. [facility] ED NOTE HNO ID: [id number] Author: ANA ROSA BRANDT RN Service: Emergency Medicine Author Type: Registered Nurse Type: ED Notes Filed: 06/30/2024 01:13 Note Text: Pt reconnected to the athletic monitor, SpO2 on RA and NIBP. Call light within reach. [facility] ED NOTE HNO ID: [id number] Author: ANA ROSA BRANDT RN Service: Emergency Medicine Author Type: Registered Nurse Type: ED Notes Filed: 06/30/2024 00:50 Note Text: Xray notified [facility] ED NOTE HNO ID: [id number] Author: ANA ROSA BRANDT RN Service: Emergency Medicine Author Type: Registered Nurse Type: ED Notes Filed: 06/30/2024 00:18 Note Text: Pt assisted into bed with maximum assist from 2 staff members at this time. [facility] ED NOTE HNO ID: [id number] Author: LISA DE LEÓN RN Service: ? Author Type: Registered Nurse Type: ED Notes Filed: 06/30/2024 00:10 Note Text: Bed: 18-ED Expected date: Expected time: Means of arrival: Comments: TRIAGE Normal [facility] ED PROV NOTEon 06-30-2024 ED PROV NOTE HNO ID: [id number] Author: RICKEY CROW DO Service: Emergency Medicine [...] Ex-Fix insertion site. She was seen at [facility] emergency department or wound cultures were obtained. [...] CROW 06/30/24 0112 RICKEY CROW 06/30/24 0348 [facility] ED PROV NOTE HNO ID: [id number] Author: RICKEY CROW DO Service: Emergency Medicine [...] fixation points. Patient was seen yesterday at [facility] where wound cultures were obtained. The patient's [...] pain. Gastro (more content not included)... Normal [facility] Urinalysis complete panel (U )on 06-30-2024 Bilirubin Ql (U) Negative Normal Negative [facility] Comment on above: Order Comment: Speci men Type: URINE SPECIMENOrdering Facility: [facility] Address: [address] [place] [address] Performed By: #### 2 4356-8 ####[facility] LABORATORYCLIA [id number] [address] [place] Clarity (Unsp spec) Clear Normal Clear [facility] Comment on above: Order Comment: Speci men Type: URINE SPECIMENOrdering Facility: [facility] Address: [address] [place] [address] Performed By: #### 2 4356-8 ####[facility] LABORATORYCLIA [id number] [place] [address] [place] Color (U) Light Yellow Normal yellow [facility] Comment on above: Order Comment: Speci men Type: URINE SPECIMENOrdering Facility: [facility] Address: [address] [place] [address] Performed By: #### 2 4356-8 ####[facility] LABORATORYCLIA [id number] [address] [place] Epithelial cells LM.HPF (Urine sed) [#/Area] Few Normal [facility] Comment on above: Order Comment: Speci men Type: URINE SPECIMENOrdering Facility: [facility] Address: [address] [place] [address] Result Comment: Few Performed By: #### 2 4356-8 ####[facility] LABORATORYCLIA [id number] [address] Glucose Test strip (U) [Mass/Vol] Negative Normal Trace, Negative [facility] Comment on above: Order Comment: Speci men Type: URINE SPECIMENOrdering Facility: [facility] Address: [address] [place] [address] Performed By: #### 2 4356-8 ####[facility] LABORATORYCLIA [id number] [address] STATES [facility] Hemoglobin Ql (U) Negative Normal Negative, Trace [facility] Comment on above: Order Comment: Speci men Type: URINE SPECIMENOrdering Facility: [facility] Address: [address] [place] [address] Performed By: #### 2 4356-8 ####[facility] LABORATORYCLIA [id number] [address] [place] Ketones Ql (U) Negative Normal Negative, Trace [facility] Comment on above: Order Comment: Speci men Type: URINE SPECIMENOrdering Facility: [facility] Address: [address] [place] [address] Performed By: #### 2 4356-8 ####[facility] LABORATORYCLIA [id number] [address] [place] Leukocyte esterase Test strip Ql (U) 75 Dheeraj/uL Abnormal Negative, 25 Dheeraj/uL [facility] Comment on above: Order Comment: Speci men Type: URINE SPECIMENOrdering Facility: [facility] Address: [address] [place] [address] Performed By: #### 2 4356-8 ####[facility] LABORATORYCLIA [id number] [address] [place] Nitrite Ql (U) Negative Normal Negative [facility] Comment on above: Order Comment: Speci men Type: URINE SPECIMENOrdering Facility: [facility] Address: [address] [place] [address] Performed By: #### 2 4356-8 ####[facility] LABORATORYCLIA [id number] [address] [place] pH (U) 5.5 [pH] Normal 5.0-8.0 [facility] Comment on above: Order Comment: Speci men Type: URINE SPECIMENOrdering Facility: [facility] Address: [address] [place] [address] Performed By: #### 2 4356-8 ####[facility] LABORATORYCLIA [id number] [address] Protein (U) [Mass/Vol] Negative Normal Trace, Negative [facility] Comment on above: Order Comment: Speci men Type: URINE SPECIMENOrdering Facility: [facility] Address: [address] [place] [address] Performed By: #### 2 4356-8 ####[facility] LABORATORYCLIA [id number] [place] [address] [place] RBC LM.HPF (Urine sed) [#/Area] 0-3 /HPF Normal 0-3 /HPF [facility] Comment on above: Order Comment: Speci men Type: URINE SPECIMENOrdering Facility: [facility] Address: [address] [place] [address] Performed By: #### 2 4356-8 ####[facility] LABORATORYCLIA [id number] [address] [place] Specific gravity (U) [Rel density] 1.017 Normal 1.005-1.03 0 [facility] Comment on above: Order Comment: Speci men Type: URINE SPECIMENOrdering Facility: [facility] Address: [address] [place] [address] Performed By: #### 2 4356-8 ####[facility] LABORATORYCLIA [id number] [address] Urobilinogen Ql (U) Normal Normal Normal [facility] Comment on above: Order Comment: Speci men Type: URINE SPECIMENOrdering Facility: [facility] Address: [address] [place] [address] Performed By: #### 2 4356-8 ####[facility] LABORATORYCLIA [id number] [address] [place] [facility] WBC LM.HPF (Urine sed) [#/Area] 0-5 /HPF Normal 0-5 /HPF [facility] Comment on above: Order Comment: Speci men Type: URINE SPECIMENOrdering Facility: [facility] Address: [address] [place] [address] Performed By: #### 2 4356-8 ####[facility] LABORATORYCLIA [id number] [address] XR FEMUR 2V AP/LAT RTon XR FEMUR [...] fracture of the right proximal tibia. * [facility]: PSCB Transcribe Date/Time: Jun 30 2024 1:22A Dictated by : GERALD QUINTERO MD This examination was interpreted and the report reviewed and electronically signed by: GERALD QUINTERO MD on Jun 30 2024 1:28AM EST [id number] Normal [facility] XR KNEE 2V AP/LAT RTon 06-30 XR [...] fracture of the right proximal tibia. * [facility]: PSCB Transcribe Date/Time: Jun 30 2024 1:22A Dictated by : GERALD QUINTERO MD This examination was interpreted and the report reviewed and electronically signed by: GERALD QUINTERO MD on Jun 30 2024 1:28AM EST [id number] Normal [facility] XR TIBIA FIBULA 2V AP/LAT RT on [...] fracture of the right proximal tibia. * [facility]: PSCB Transcribe Date/Time: Jun 30 2024 1:22A Dictated by : GERALD QUINTERO MD This examination was interpreted and the report reviewed and electronically signed by: GERALD QUINTERO MD on Jun 30 2024 1:28AM EST [id number] Normal [facility] ED Triage Noteon 06-29-2024 ED Triage Note HNO ID: [id number] Author: JOCELIN BANUELOS PA-C Service: Emergency Medicine Author Type: Physician External Relations Director Type: ED Triage Notes Filed: 06/29/2024 17:47 Note Text: ED TRIAGE PROVIDER NOTE Patient Name: Zackery Nunez Service Date: 06/29/24 BRIEF HPI: This is a 64 year old female who presents to the ED with: Returns to the emergency department, yesterday was transferred from [place] after positive blood cultures, she is status [...] Culture SIGNATURE: Jose Antonio Banuelos PA-C Normal [facility] Bacteria Wnd Culton 06-28-19 25 Bacteria identified Cx Nom (Wound) ORGANISM ID: [...] , Intermediate >4 , Resistant >8 Abnormal [facility] Comment on above: Performed By: #### 6 462-6 #### [facility] CLIA [id number] [address] [place] [id number] [place] CBC W Auto Differential pane l (Bld)on 06-28-2024 Basophils (Bld) [#/Vol] 0.04 10*3/uL Normal <0.11 [facility] Comment on above: Order Comment: Speci men Type: BLOOD SPECIMENOrdering Facility: [facility] Address: [address] [place] [address] Performed By: #### 5 7021-8 ####[facility]ORATORYCLIA [id number] [address] STATES [facility] Basophils/100 WBC (Bld) 0.5 % Normal [facility] Comment on above: Order Comment: Speci men Type: BLOOD SPECIMENOrdering Facility: [facility] Address: [address] [place] [address] Performed By: #### 5 7021-8 ####[facility]ORATORYCLIA [id number] [address] Differential cell count method Nom (Bld) Auto Normal [facility] Comment on above: Order Comment: Speci men Type: BLOOD SPECIMENOrdering Facility: [facility] Address: [address] [place] [address] Performed By: #### 5 7021-8 ####[facility]ORATORYCLIA [id number] [address] [place] Eosinophils (Bld) [#/Vol] 0.13 10*3/uL Normal <0.46 [facility] Comment on above: Order Comment: Speci men Type: BLOOD SPECIMENOrdering Facility: [facility] Address: [address] [place] [address] Performed By: #### 5 7021-8 ####[facility]ORATORYCLIA [id number] [address] Eosinophils/100 WBC (Bld) 1.5 % Normal [facility] Comment on above: Order Comment: Speci men Type: BLOOD SPECIMENOrdering Facility: [facility] Address: [address] [place] [address] Performed By: #### 5 7021-8 ####[facility]ORATORYCLIA [id number] [address] Erythrocyte distribution width (RBC) [Ratio] 14.6 % Normal 11.5-15.0 [facility] Comment on above: Order Comment: Speci men Type: BLOOD SPECIMENOrdering Facility: [facility] Address: [address] [place] [address] Performed By: #### 5 7021-8 ####[facility] LABORATORYCLIA [id number] [address] [place] Hematocrit (Bld) [Volume fraction] 33.7 % Low 36.0-46.0 [facility] Comment on above: Order Comment: Speci men Type: BLOOD SPECIMENOrdering Facility: [facility] Address: [address] [place] [address] Performed By: #### 5 7021-8 ####[facility] LABORATORYCLIA [id number] [address] [place] Hemoglobin (Bld) [Mass/Vol] 10.7 g/dL Low 11.5-15.5 [facility] Comment on above: Order Comment: Speci men Type: BLOOD SPECIMENOrdering Facility: [facility] Address: [address] [place] [address] Performed By: #### 5 7021-8 ####[facility] LABORATORYCLIA [id number] [address] [place] Immature granulocytes (Bld) [#/Vol] 0.03 10*3/uL Normal <0.10 [facility] Comment on above: Order Comment: Speci men Type: BLOOD SPECIMENOrdering Facility: [facility] Address: [address] [place] [address] Performed By: #### 5 7021-8 ####[facility] LABORATORYCLIA [id number] [address] Immature granulocytes/100 WBC (Bld) 0.3 % Normal [facility] Comment on above: Order Comment: Speci men Type: BLOOD SPECIMENOrdering Facility: [facility] Address: [address] [place] [address] Performed By: #### 5 7021-8 ####[facility]ORATORYCLIA [id number] [address] [place] Lymphocytes (Bld) [#/Vol] 2.73 10*3/uL Normal 1.00-4.00 [facility] Comment on above: Order Comment: Speci men Type: BLOOD SPECIMENOrdering Facility: [facility] Address: [address] [place] [address] Performed By: #### 5 7021-8 ####[facility] LABORATORYCLIA [id number] [address] Lymphocytes/100 WBC (Bld) 31.4 % Normal [facility] Comment on above: Order Comment: Speci men Type: BLOOD SPECIMENOrdering Facility: [facility] Address: [address] [place] [address] Performed By: #### 5 7021-8 ####[facility] LABORATORYCLIA [id number] [address] [place] MCH (RBC) [Entitic mass] 26.6 pg Normal 26.0-34.0 [facility] Comment on above: Order Comment: Speci men Type: BLOOD SPECIMENOrdering Facility: [facility] Address: [address] [place] [address] Performed By: #### 5 7021-8 ####[facility] LABORATORYCLIA [id number] [address] [place] MCHC (RBC) [Mass/Vol] 31.8 g/dL Normal 30.5-36.0 [facility] Comment on above: Order Comment: Speci men Type: BLOOD SPECIMENOrdering Facility: [facility] Address: [address] [place] [address] Performed By: #### 5 7021-8 ####[facility] LABORATORYCLIA [id number] [address] STATES [facility] MCV (RBC) [Entitic vol] 83.6 fL Normal 80.0-100.0 [facility] Comment on above: Order Comment: Speci men Type: BLOOD SPECIMENOrdering Facility: [facility] Address: [address] [place] [address] Performed By: #### 5 7021-8 ####[facility] LABORATORYCLIA [id number] [place] [address] [place] Monocytes (Bld) [#/Vol] 0.49 10*3/uL Normal <0.87 [facility] Comment on above: Order Comment: Speci men Type: BLOOD SPECIMENOrdering Facility: [facility] Address: [address] [place] [address] Performed By: #### 5 7021-8 ####[facility]ORATORYCLIA [id number] [address] [place] Monocytes/100 WBC (Bld) 5.6 % Normal [facility] Comment on above: Order Comment: Speci men Type: BLOOD SPECIMENOrdering Facility: [facility] Address: [address] [place] [address] Performed By: #### 5 7021-8 ####[facility] LABORATORYCLIA [id number] [address] [place] Neutrophils (Bld) [#/Vol] 5.28 10*3/uL Normal 1.45-7.50 [facility] Comment on above: Order Comment: Speci men Type: BLOOD SPECIMENOrdering Facility: [facility] Address: [address] [place] [address] Performed By: #### 5 7021-8 ####[facility]ORATORYCLIA [id number] [address] [place] Neutrophils/100 WBC (Bld) 60.7 % Normal [facility] Comment on above: Order Comment: Speci men Type: BLOOD SPECIMENOrdering Facility: [facility] Address: [address] [place] [address] Performed By: #### 5 7021-8 ####[facility] LABORATORYCLIA [id number] [place] [address] [place] Nucleated RBC (Bld) [#/Vol] 10*3/uL Normal <0.01 [facility] Comment on above: Order Comment: Speci men Type: BLOOD SPECIMENOrdering Facility: [facility] Address: [address] [place] [address] Performed By: #### 5 7021-8 ####[facility] LABORATORYCLIA [id number] [address] [place] Nucleated RBC/100 WBC (Bld) [Ratio] 0.0 /100 WBC Normal [facility] Comment on above: Order Comment: Speci men Type: BLOOD SPECIMENOrdering Facility: [facility] Address: [address] [place] [address] Performed By: #### 5 7021-8 ####[facility] LABORATORYCLIA [id number] [address] [place] Platelet mean volume (Bld) [Entitic vol] 10.2 fL Normal 9.0-12.7 [facility] Comment on above: Order Comment: Speci men Type: BLOOD SPECIMENOrdering Facility: [facility] Address: [address] [place] [address] Performed By: #### 5 7021-8 ####[facility] LABORATORYCLIA [id number] [address] [place] Platelets (Bld) [#/Vol] 539 10*3/uL High 150-400 [facility] Comment on above: Order Comment: Speci men Type: BLOOD SPECIMENOrdering Facility: [facility] Address: [address] [place] [address] Performed By: #### 5 7021-8 ####[facility] LABORATORYCLIA [id number] [address] [place] RBC (Bld) [#/Vol] 4.03 10*6/uL Normal 3.90-5.20 [facility] Comment on above: Order Comment: Speci men Type: BLOOD SPECIMENOrdering Facility: [facility] Address: [address] [place] [address] Performed By: #### 5 7021-8 ####[facility] LABORATORYCLIA [id number] [place] [address] [place] WBC (Bld) [#/Vol] 8.70 10*3/uL Normal 3.70-11.00 [facility] Comment on above: Order Comment: Speci men Type: BLOOD SPECIMENOrdering Facility: [facility] Address: [address] [place] [address] Performed By: #### 5 7021-8 ####[facility] LABORATORYCLIA [id number] [address] CNPNon 06-28-2024 CNPN Telephone (AGPOB1) -- ZACKERY NUNEZ ([id number]) 1960 F Date Time Provider Department 06/28/24 SYDNI WAGGONER AGPOB1 During your visit today, we recorded the following information about you: CrawfordTeresa elam Twyla 06/28/2024 12:48 PM Signed I rec'd a call from the patient that she was notified to come to the ER as her cultures grew something and she would need IV antibiotics. I called [facility] [phone] and requested records from the ER visit. I have them scanned into [employer]. Teresa Crawford Allergies As of Date: 06/28/2024 [...] 05/03/2024 Post- (more content not included)... Normal [facility] CONSULTon 06-28-2024 CONSULT HNO ID: [id number] Author: SYDNI WAGGONER MD Service: Orthopaedic Surgery [...] for surgical site infection Consulting Physician: Sydni aWggoner MD Date: June 28, 2024 Time: 9:19 PM History of Present Illness 64 year old female being evaluated today regarding concern for right knee surgical site infection. Patient currently has an ex fix to the right knee after ORIF of a periprosthetic tibia fracture on 05/[address] Waggoner. She was transferred here from [place] for evaluation of her surgical site as [...] Dissolve dose (more content not included)... Normal [facility] Comprehensive metabolic 2000 panelon 06-28-2024 Albumin [Mass/Vol] 3.8 g/dL Low 3.9-4.9 [facility] Comment on above: Order Comment: Speci men Type: BLOOD SPECIMENOrdering Facility: [facility] Address: [address] [place] [address] Performed By: #### 2 4323-8 ####[facility] LABORATORYCLIA [id number] [place] [address] [place] ALP [Catalytic activity/Vol] 126 U/L High 34-123 [facility] Comment on above: Order Comment: Speci men Type: BLOOD SPECIMENOrdering Facility: [facility] Address: [address] [place] [address] Performed By: #### 2 4323-8 ####[facility] LABORATORYCLIA [id number] [place] [address] [place] ALT With P-5'-P [Catalytic activity/Vol] 10 U/L Normal 7-38 [facility] Comment on above: Order Comment: Speci men Type: BLOOD SPECIMENOrdering Facility: [facility] Address: [address] [place] [address] Performed By: #### 2 4323-8 ####[facility] LABORATORYCLIA [id number] [address] [place] Anion gap [Moles/Vol] 16 mmol/L High 8-15 [facility] Comment on above: Order Comment: Speci men Type: BLOOD SPECIMENOrdering Facility: [facility] Address: [address] [place] [address] Performed By: #### 2 4323-8 ####[facility] LABORATORYCLIA [id number] [address] [place] AST With P-5'-P [Catalytic activity/Vol] 19 U/L Normal 13-35 [facility] Comment on above: Order Comment: Speci men Type: BLOOD SPECIMENOrdering Facility: [facility] Address: [address] [place] [address] Performed By: #### 2 4323-8 ####[facility]ORATORYCLIA [id number] [address] [place] Bilirubin [Mass/Vol] 0.2 mg/dL Normal 0.2-1.3 [facility] Comment on above: Order Comment: Speci men Type: BLOOD SPECIMENOrdering Facility: [facility] Address: [address] [place] [address] Performed By: #### 2 4323-8 ####[facility]ORATORYCLIA [id number] [place] [address] [place] Calcium [Mass/Vol] 9.5 mg/dL Normal 8.5-10.2 [facility] Comment on above: Order Comment: Speci men Type: BLOOD SPECIMENOrdering Facility: [facility] Address: [address] [place] [address] Performed By: #### 2 4323-8 ####[facility]ATORYCLIA [id number] [place] [address] [place] Chloride [Moles/Vol] 96 mmol/L Low 98-107 [facility] Comment on above: Order Comment: Speci men Type: BLOOD SPECIMENOrdering Facility: [facility] Address: [address] [place] [address] Performed By: #### 2 4323-8 ####[facility]ORATORYCLIA [id number] [place] [address] [place] CO2 [Moles/Vol] 23 mmol/L Normal 22-30 [facility] Comment on above: Order Comment: Speci men Type: BLOOD SPECIMENOrdering Facility: [facility] Address: [address] [place] [address] Performed By: #### 2 4323-8 ####[facility] LABORATORYCLIA [id number] [place] [address] [place] Creatinine [Mass/Vol] 0.97 mg/dL High 0.58-0.96 [facility] Comment on above: Order Comment: Speci men Type: BLOOD SPECIMENOrdering Facility: [facility] Address: [address] [place] [address] Performed By: #### 2 4323-8 ####[facility]ITAL[facility]IA [id number] [address] OF [facility] Creatinine and Glomerular filtration rate.predicted panel (S/P/Bld) 65 mL/min/1.73m??? Normal >=60 [facility] Comment on above: Order Comment: Speci men Type: BLOOD SPECIMENOrdering Facility: [facility] Address: [address] [place] [address] Result Comment: Sienna mated Glomerular Filtration Rate [...] actual GFR. Performed By: #### 2 4323-8 ####[facility] LABORATORYCLIA [id number] [place] [address] [place] Glucose [Mass/Vol] 92 mg/dL Normal 74-99 [facility] Comment on above: Order Comment: [facility] Type: BLOOD SPECIMENOrdering Facility: [facility] Address: [address] [place] [address] Result Comment: The [place] Diabetes Association (ADA) provides guidance for cutoff [...] Standards of Medical Care in Diabetes 2016, [place] [employer]. Diabetes Care. 2016.39(Suppl 1). Performed By: #### 2 4323-8 ####[facility] LABORATORYCLIA [id number] [place] [address] [place] Potassium [Moles/Vol] 3.7 mmol/L Normal 3.7-5.1 [facility] Comment on above: Order Comment: Speci men Type: BLOOD SPECIMENOrdering Facility: [facility] Address: [address] [place] [address] Performed By: #### 2 4323-8 ####[facility] LABORATORYCLIA [id number] [place] [address] [place] Protein [Mass/Vol] 8.1 g/dL High 6.3-8.0 [facility] Comment on above: Order Comment: Speci men Type: BLOOD SPECIMENOrdering Facility: [facility] Address: [address] [place] [address] Performed By: #### 2 4323-8 ####[facility] LABORATORYCLIA [id number] [place] [address] [place] Sodium [Moles/Vol] 135 mmol/L Low 136-144 [facility] Comment on above: Order Comment: Speci men Type: BLOOD SPECIMENOrdering Facility: [facility] Address: [address] [place] [address] Performed By: #### 2 4323-8 ####[facility] LABORATORYCLIA [id number] [place] [address] [place] Urea nitrogen [Mass/Vol] 9 mg/dL Normal 7-21 [facility] Comment on above: Order Comment: Speci men Type: BLOOD SPECIMENOrdering Facility: [facility] Address: [facility] [place] [address] Performed By: #### 2 4323-8 ####[facility] LABORATORYCLIA [id number] [place] [address] [place] [facility] ED NOTEon 06-28-2024 ED NOTE HNO ID: [id number] Author: KUMAR VIVAR RN Service: ? Author Type: Registered Nurse Type: ED Notes Filed: 06/28/2024 15:43 Note Text: Xray aware pt ready Normal [facility] ED Triage Noteon 06-28-2024 ED Triage Note HNO ID: [id number] Author: JACI SUAREZ PA-C Service: Emergency Medicine Author Type: Physician External Relations Director Type: ED Triage Notes Filed: 06/28/2024 22:02 [...] surgery in April. States she went to [place] on Monday for increased pain and drainage. [...] require admission SIGNATURE: Jaci Suarez PA-C Normal [facility] XR KNEE 2V AP/LAT RTon 06-28 XR [...] exam. Unchanged alignment of the fracture components [facility]: CHERELLE Transcribe Date/Time: Jun 28 2024 4:15P Dictated by : DUANE KRISHNAN MD This examination was interpreted and the report reviewed and electronically signed by: DUANE KRISHNAN MD on Jun 28 2024 4:16PM EST [id number] Normal [facility] Urine Cultureon 06-27-2024 URC Klebsiella pneumonia e sp pneum [place] Count >100,000 Klebsiella pneumoniae sp pneum: REACTION [...] R Minocycline Islt MANUEL 4 S Normal [facility] Comment on above: Performed By: #### L 300.3900, L501.5425, L503.6620, L300.4310, L300.8000, L500.2500, L503.6005, L100.0100 #### [facility] Laboratory [address] [place], [address] BC GPC IDon 06-26-2024 BC GPC ID [...] A mecA Resistance Marker Detected A Normal [facility] Comment on above: Performed By: #### L 300.3900, L501.5425, L503.6620, L300.4310, L300.8000, L500.2500, L503.6005, L100.0100 #### [facility] [address] [place], [address] 12 Lead EKGon 06-24-2024 12 Lead EKG [facility] Cardiovascular Services [address] [place] [address] 12 Lead EKG 06/24/24 1411 MR#: [id number] Acct: [id number] Name: ZACKERY NUNEZ CHARLEY Rep #: [id number] : 1960 64 From: Mati Magallon MD [...] Normal sinus rhythm Normal ECG Confirmed by MATI MAGALLON MD ([id number]), editorial writer JACI VAUGHN ([id number]) on 06/25/2024 8:00:32 AM Referred By: Confirmed By: MATI MAGALLON MD 06/25/24 0800 Date Mati Magallon MD CC: Dr. Rafael Martines, DO; Dr. Mikayla Strange MD Signed Normal [facility] Absolute neutrophil countOrd ered By: Rafael Martiens on 06-24-2024 Neutrophils (Bld) [#/Vol] 8.3 10*3/uL High 2.0-7.7 [facility] BNP (brain natriuretic pepti de measurement)Ordered By: Rafael Martines on 06-24-2024 Natriuretic peptide B (Bld) [Mass/Vol] 48.0 pg/mL 0-100 [facility] BNP,B-Type NATRIURETIC PEPTI Mati 06-24-2024 Natriuretic peptide B (Bld) [Mass/Vol] 48.0 pg/mL Normal 0-100 [facility] Comment on above: Performed By: #### L 300.3900, L501.5425, L503.6620, L300.4310, L300.8000, L500.2500, L503.6005, L100.0100 #### [facility] Laboratory [address] [place], [address] Basic Metabolic Profile (BMP )on 06-24-2024 BUN/CRE 12.3 RATIO Normal 10-20 [facility] Comment on above: Order Comment: 1 Y Performed By: #### L 300.3900, L501.5425, L503.6620, L300.4310, L300.8000, L500.2500, L503.6005, L100.0100 #### [facility] [address] [place], [address] CA,Total 8.7 mg/dL Normal 8.5-10.1 [facility] Comment on above: Order Comment: 1 Y Performed By: #### L 300.3900, L501.5425, L503.6620, L300.4310, L300.8000, L500.2500, L503.6005, L100.0100 #### [facility] [address] [place], [address] Chloride [Moles/Vol] 99 mmol/L Normal 98-107 [facility] Comment on above: Order Comment: 1 Y Performed By: #### L 300.3900, L501.5425, L503.6620, L300.4310, L300.8000, L500.2500, L503.6005, L100.0100 #### [facility] [address] [place], [address] CO2 [Moles/Vol] 26.0 mmol/L Normal 21.0-32.0 [facility] Comment on above: Order Comment: 1 Y Performed By: #### L 300.3900, L501.5425, L503.6620, L300.4310, L300.8000, L500.2500, L503.6005, L100.0100 #### [facility] [address] [place], [address] Creatinine [Mass/Vol] 0.81 mg/dL Normal 0.55-1.02 [facility] Comment on above: Order Comment: 1 Y Result Comment: The validity of the calculated GFR GFRAA in patients over 70 years has not been determined. Clinical correlation is essential. Performed By: #### L 300.3900, L501.5425, L503.6620, L300.4310, L300.8000, L500.2500, L503.6005, L100.0100 #### [facility] [address] [place], [address] ECRCL 76.83 ml/min Normal [facility] Comment on above: Order Comment: 1 Y Performed By: #### L 300.3900, L501.5425, L503.6620, L300.4310, L300.8000, L500.2500, L503.6005, L100.0100 #### [facility] [address] [place], [address] EST GFR - AA 91 mL/min Normal >60 [facility] Comment on above: Order Comment: 1 Y Result Comment: Afri can [place] GFR Calc Performed By: #### L 300.3900, L501.5425, L503.6620, L300.4310, L300.8000, L500.2500, L503.6005, L100.0100 #### [facility] [address] [place], [address] GAP 9 Normal 5-15 [facility] Comment on above: Order Comment: 1 Y Performed By: #### L 300.3900, L501.5425, L503.6620, L300.4310, L300.8000, L500.2500, L503.6005, L100.0100 #### [facility] [address] [place], [place], [id number] (010) GFR/1.73 sq M.predicted among non-blacks MDRD (S/P/Bld) [Vol rate/Area] 75 mL/min/{1.73_m2} Normal >60 [facility] Comment on above: Order Comment: 1 Y Result Comment: Non- GFR Calc Performed By: #### L 300.3900, L501.5425, L503.6620, L300.4310, L300.8000, L500.2500, L503.6005, L100.0100 #### [facility] [address] [place], [address] Glucose [Mass/Vol] 104 mg/dL Normal 74-106 [facility] Comment on above: Order Comment: 1 Y Result Comment: Fast ing Glucose result from 100 to 125 mg/dL suggests IMPAIRED HOMEOSTASIS per A.D.A. criteria. Performed By: #### L 300.3900, L501.5425, L503.6620, L300.4310, L300.8000, L500.2500, L503.6005, L100.0100 #### [facility] [address] [place], [place], [id number] [phone] Potassium [Moles/Vol] 3.5 mmol/L Normal 3.5-5.1 [facility] Comment on above: Order Comment: 1 Y Performed By: #### L 300.3900, L501.5425, L503.6620, L300.4310, L300.8000, L500.2500, L503.6005, L100.0100 #### [facility] [address] [place], [address] Sodium [Moles/Vol] 133 mmol/L Low 136-145 [facility] Comment on above: Order Comment: 1 Y Performed By: #### L 300.3900, L501.5425, L503.6620, L300.4310, L300.8000, L500.2500, L503.6005, L100.0100 #### [facility] [address] [place], [place], [id number] [phone] Urea nitrogen [Mass/Vol] 10 mg/dL Normal 7-18 [facility] Comment on above: Order Comment: 1 Y Performed By: #### L 300.3900, L501.5425, L503.6620, L300.4310, L300.8000, L500.2500, L503.6005, L100.0100 #### [facility] [address] [place], [place], [id number] [phone] Basophil percentageOrdered B y: Rafael Martines on 06-24-2024 Basophils/100 WBC (Bld) 0.3 % 0-1 [facility] Bilirubin Test strip Ql (U)O rdered By: Rafael Martines on 06-24-2024 Bilirubin Ql (U) Negative Negative [facility] Blood cultureOrdered By: Miguel A Martines on 06-24-2024 Bacteria identified Cx Nom (Bld) No growth in 5 days. [facility] Bacteria identified Cx Nom (Bld) Meth. resistant Staph. aureus Abnormal [facility] Blood urea nitrogen (BUN)/cr eatinine ratioOrdered By: Rafael Martines on 06-24-2024 Urea nitrogen/Creatinine [Mass ratio] 12.3 mg/mg 04-14 [facility] CBC W/Diff, Automatedon 05-28 Absolute Lymph 2.02 X10 3/uL Normal 0.83-4.51 [facility] Comment on above: Performed By: #### L 300.3900, L501.5425, L503.6620, L300.4310, L300.8000, L500.2500, L503.6005, L100.0100 #### [facility] [address] [place], [address] Absolute Neut 8.3 X10 3/uL High 2.0-7.7 [facility] Comment on above: Performed By: #### L 300.3900, L501.5425, L503.6620, L300.4310, L300.8000, L500.2500, L503.6005, L100.0100 #### [facility] [address] [place], [address] Basophils/100 WBC (Bld) 0.3 % Normal 0-1 [facility] Comment on above: Performed By: #### L 300.3900, L501.5425, L503.6620, L300.4310, L300.8000, L500.2500, L503.6005, L100.0100 #### [facility] [address] [place], [address] Eosinophils/100 WBC (Bld) 0.6 % Normal 0-5 [facility] Comment on above: Performed By: #### L 300.3900, L501.5425, L503.6620, L300.4310, L300.8000, L500.2500, L503.6005, L100.0100 #### [facility] [address] [place], [address] Erythrocyte distribution width (RBC) [Ratio] 14.5 % Normal 11.6-14.6 [facility] Comment on above: Performed By: #### L 300.3900, L501.5425, L503.6620, L300.4310, L300.8000, L500.2500, L503.6005, L100.0100 #### [facility] [address] [place], [address] Hematocrit (Bld) [Volume fraction] 32.2 % Low 37-47 [facility] Comment on above: Performed By: #### L 300.3900, L501.5425, L503.6620, L300.4310, L300.8000, L500.2500, L503.6005, L100.0100 #### [facility] [address] [place], [address] Hemoglobin (Bld) [Mass/Vol] 10.1 g/dL Low 12.0-15.0 [facility] Comment on above: Performed By: #### L 300.3900, L501.5425, L503.6620, L300.4310, L300.8000, L500.2500, L503.6005, L100.0100 #### [facility] [address] [place], [address] IG% 0.400 Normal 0.0-0.9 [facility] Comment on above: Result Comment: IG% - Immature Granulocytes (promyelocytes, myelocytes and metamyelocytes) > 1% indicates that a LEFT SHIFT is Present. Performed By: #### L 300.3900, L501.5425, L503.6620, L300.4310, L300.8000, L500.2500, L503.6005, L100.0100 #### [facility] [address] [place], [address] Lymphocytes/100 WBC (Bld) 17.6 % Low 19-41 [facility] Comment on above: Performed By: #### L 300.3900, L501.5425, L503.6620, L300.4310, L300.8000, L500.2500, L503.6005, L100.0100 #### [facility] [address] [place], [address] MCH (RBC) [Entitic mass] 26.2 pg Low 27.0-32.0 [facility] Comment on above: Performed By: #### L 300.3900, L501.5425, L503.6620, L300.4310, L300.8000, L500.2500, L503.6005, L100.0100 #### [facility] [address], [address] MCHC (RBC) [Mass/Vol] 31.4 g/dL Low 32-36 [facility] Comment on above: Performed By: #### L 300.3900, L501.5425, L503.6620, L300.4310, L300.8000, L500.2500, L503.6005, L100.0100 #### [facility] [address], [address] MCV (RBC) [Entitic vol] 83.6 fL Normal 81-99 [facility] Comment on above: Performed By: #### L 300.3900, L501.5425, L503.6620, L300.4310, L300.8000, L500.2500, L503.6005, L100.0100 #### [facility] [address] [place], [address] Monocytes/100 WBC (Bld) 9.1 % Normal 0-10 [facility] Comment on above: Performed By: #### L 300.3900, L501.5425, L503.6620, L300.4310, L300.8000, L500.2500, L503.6005, L100.0100 #### [facility] [address] [place], [address] Neutrophils/100 WBC (Bld) 72.0 % High 47-70 [facility] Comment on above: Performed By: #### L 300.3900, L501.5425, L503.6620, L300.4310, L300.8000, L500.2500, L503.6005, L100.0100 #### [facility] [address] [facility], [address] Nucleated RBC (Bld) [#/Vol] 0 10*3/uL Normal 0-5 [facility] Comment on above: Performed By: #### L 300.3900, L501.5425, L503.6620, L300.4310, L300.8000, L500.2500, L503.6005, L100.0100 #### [facility] [address] [facility] [place], [address] Platelet mean volume (Bld) [Entitic vol] 10.7 fL Normal 6.2-12.0 [facility] Comment on above: Performed By: #### L 300.3900, L501.5425, L503.6620, L300.4310, L300.8000, L500.2500, L503.6005, L100.0100 #### [facility] [address] [place], [address] Platelets (Bld) [#/Vol] 462 10*3/uL High 150-450 [facility] Comment on above: Performed By: #### L 300.3900, L501.5425, L503.6620, L300.4310, L300.8000, L500.2500, L503.6005, L100.0100 #### [facility] [address] [facility] [place], [address] RBC (Bld) [#/Vol] 3.85 10*6/uL Low 4.2-5.4 [facility] Comment on above: Performed By: #### L 300.3900, L501.5425, L503.6620, L300.4310, L300.8000, L500.2500, L503.6005, L100.0100 #### [facility] [address] [place], [place], [id number] RDW SD 44.1 fl High 35.1-43.9 [facility] Comment on above: Performed By: #### L 300.3900, L501.5425, L503.6620, L300.4310, L300.8000, L500.2500, L503.6005, L100.0100 #### [facility] [address] [place], [place], [id number] WBC (Bld) [#/Vol] 11.5 10*3/uL High 4.4-11.0 [facility] Comment on above: Performed By: #### L 300.3900, L501.5425, L503.6620, L300.4310, L300.8000, L500.2500, L503.6005, L100.0100 #### [facility] [address] [place], [place], [id number] [facility] Telephone (FAMWS) -- ZACKERY NUNEZ ([id number]) 1960 F Date Time Provider Department 06/24/24 MIKAYLA STRANGE [facility] During your visit today, we recorded [...] of hypert (more content not included)... Normal [facility] CTA Chest W/WO Contraston CTA Chest W/WO Contrast [facility] Imaging Services [address] [place] [address] [id number] CTA Chest W/WO Contrast MR#: [id number] Acct: [id number] Name: ZACKERY NUNEZ CHARLEY Rep #: [id number] : 1960 F 64 From: Phong Aaron MD PCP: Dr. Mikayla Strange MD Status: REG ER Study: CTA Chest W/WO Contrast Date of Exam: 06/24/24 Exam# [id number] Ordering Dr: Rafael Martines DO [id number] EXAM: CT ANGIOGRAPHY CHEST WITHOUT AND WITH [...] Rafael Martines DO; Dr. Mikayla Strange MD [facility]: Signed Normal [facility] Carbon dioxide measurementOr dered By: Rafael Martines on 06-24-2024 CO2 [Moles/Vol] 26.0 mmol/L 21.0-32.0 [facility] Chest PA and Lateralon 06-24 Chest PA and Lateral [facility] Imaging Services [address] [place] [address] Chest PA and Lateral MR#: [id number] Acct: [id number] Name: ZACKERY NUNEZ Rep #: [id number] : 1960 F 64 From: Phong Aaron MD PCP: Dr. Mikayla Strange MD Status: [facility] ER Study: Chest PA and Lateral Date of Exam: 06/24/24 Exam# [id number] Ordering Dr: Rafael Martines DO [id number] EXAM: XR CHEST, 2 VIEWS CLINICAL INDICATION: [...] Rafael Martines DO; Dr. Mikayla Strange MD [facility]: Signed Normal [facility] Chloride measurementOrdered By: Rafael Martines on 06-24-2024 Chloride [Moles/Vol] 99 mmol/L 98-107 [facility] D-Dimer Quantitative (DVT/PE )on 06-24-2024 D-DIMER QUANT 1.14 FEU/ug/m Invalid Interpretation Code 0.27-0.49 [facility] Comment on above: Result Comment: CRIT ICAL VALUE CALLED TO ELIZABETH SKELTON COORDINATOR OF LIBRARY SERVICES 06/24/24 1700 Sydni Luna. RESULTS READ BACK BY SAME. D-Dimer ELEVATED (>0.49): Additional studies and clinical assessments are indicated to conclude diagnosis of: Deep Vein Thrombosis (DVT) or Pulmonary Embolism (PE) Performed By: #### L 300.3900, L501.5425, L503.6620, L300.4310, L300.8000, L500.2500, L503.6005, L100.0100 #### [facility] Laboratory [facility] [address] [facility] [place], [place], [id number] D-dimer measurement for deep venous thrombosisOrdered By: Rafael Martines on 06-24-2024 D-Dimer Quantitative (PE/DVT) 1.14 FEU/ug/m High 0.27-0.49 [facility] Comment on above: CRITICAL VALUE PLUNKETT D TO ELIZABETH SKELTON RN ER06/24/24 1700 Sydni Luna.RESULTS READ BACK BY SAME. D-Dimer ELEVATED (>0.49): Additional studies and clinicalassessments are indicated to conclude diagnosis of:Deep Vein Thrombosis (DVT) or Pulmonary Embolism (PE) Emergency Department Summary on 06-24-2024 Emergency Department Summary [facility] Medical Records Department [address] [place] [address] Emergency Department Summary 06/24/24 MR#: [id number] Acct: [id number] Name: ZACKERY NUNEZ CHARLEY Rep #: [id number] : 1960 64 From: Rafael Martines DO PCP: Dr. Mikayla Strange MD Status:DEP ER Location: ED HPI [...] intact Psych: Cooperative, appropriate mood and affect [facility] Medical History Wears glasses Post-menopausal Marijuana [...] mg PO (more content not included)... Normal [facility] Eosinophil percentageOrdered By: Rafael Martines on 06-24-2024 Eosinophils/100 WBC (Bld) 0.6 % 0-5 [facility] Epithelial cells.squamous LM Ql (Urine sed)Ordered By: Rafael Martines on 06-24-2024 Epithelial cells.squamous LM.HPF (Urine sed) [#/Area] 0 /[HPF] 5-10 [facility] Erythrocyte distribution wid th ratioOrdered By: Rafael Martines on 06-24-2024 Erythrocyte distribution width (RBC) [Ratio] 14.5 % 11.6-14.6 [facility] Erythrocyte distribution wid th standard deviationOrdered By: Rafael Cid on 06-24-2024 Erythrocyte distribution width (RBC) [Entitic vol] 44.1 fL High 35.1-43.9 [facility] Estimated glomerular filtrat ion rate (GFR) AmericanOrdered By: Rafael Martines on 06-24-2024 Estimated GFR (MDRD) Amer 91 mL/min >60 [facility] Comment on above: GFR Calc Estimation of creatinine asya aranceOrdered By: Rafael Martines on 06-24-2024 Estimated Creatinine Clearance Calc 76.83 ml/min [facility] Femur Min 2 Viewson 06-24-20 24 Femur Min 2 Views [facility] Imaging Services [address] [place] [address] Femur Min 2 Views MR#: [id number] Acct: [id number] Name: ZACKERY NUNEZ CHARLEY Rep #: [id number] : 1960 F 64 From: Phong Aaron MD PCP: Dr. Mikayla Strange MD Status: REG ER Study: Femur Min 2 Views Date of Exam: 06/24/24 Exam# [id number] Ordering Dr: Rafael Martines DO [id number] EXAM: XR RIGHT FEMUR, 2 VIEWS CLINICAL [...] MD at 17:56 EST , CC: Dr. Rafael Martines, DO; Dr. Mikayla Strange MD [facility]: Signed Normal [facility] Glomerular filtration rate ( GFR) estimationOrdered By: Rafael Martines on 06-24-2024 Estimated GFR (MDRD) Non-Af Amer 75 mL/min >60 [facility] Comment on above: Non- GFR Calc Glucose Ql (U)Ordered By: Balwinder Martines on 06-24-2024 Urine Glucose (UA) Normal mg/dl Normal [facility] Glucose measurementOrdered B y: Rafael Martines on 06-24-2024 Glucose [Mass/Vol] 104 mg/dL 74-106 [facility] Comment on above: Fasting Glucose resu lt from 100 to 125 mg/dL suggests IMPAIRED HOMEOSTASIS per A.D.A. criteria. Hematocrit Auto (Bld) [Volum e fraction]Ordered By: Rafael Martines on 06-24-2024 Hematocrit (Bld) [Volume fraction] 32.2 % Low 37-47 [facility] Hemoglobin measurementOrdere d By: Rafael Martines on 06-24-2024 Hemoglobin (Bld) [Mass/Vol] 10.1 g/dL Low 12.0-15.0 [facility] Immature granulocytes/100 WB C Auto (Bld)Ordered By: Rafael Martines on 06-24-2024 Immature granulocytes/100 WBC (Bld) 0.400 % 0.0-0.9 [facility] Comment on above: IG% - Immature Granu locytes (promyelocytes, myelocytes and metamyelocytes) > 1% indicates that a LEFT SHIFT is Present. International normalized rat io (INR) calculationOrdered By: Rafael Martines on 06-24-2024 INR Coag (Bld) [Relative time] 1.2 {INR} [facility] Ketones Test strip Ql (U)Ord ered By: Rafael Martines on 06-24-2024 Ketones Ql (U) Negative Negative [facility] L501.4020on 06-24-2024 TROPONIN-I HS 6 pg/mL Normal 3.0-54.0 [facility] Comment on above: Result Comment: Plea Note: New Test Units and Gender Specific Reference Ranges. For more information see Policy Stat Procedure [facility] High Sensitivity Troponin (TNIH) and attachments. Performed By: #### L 300.3900, L501.5425, L503.6620, L300.4310, L300.8000, L500.2500, L503.6005, L100.0100 #### [facility] [address] [place], [place], [id number] (663) L501.5425on 06-24-2024 TROPONIN-I HS 4 pg/mL Normal 3.0-54.0 [facility] Comment on above: Order Comment: 1 Y Result Comment: Pletisha se Note: New Test Units and Gender Specific Reference Ranges. For more information see Policy Stat Procedure [facility] High Sensitivity Troponin (TNIH) and attachments. Performed By: #### L 300.3900, L501.5425, L503.6620, L300.4310, L300.8000, L500.2500, L503.6005, L100.0100 #### [facility] [address] [place], [address] Lactic Acidon 06-24-2024 Lactate [Moles/Vol] 0.9 mmol/L Normal 0.4-1.9 [facility] Comment on above: Order Comment: Y Performed By: #### L 300.3900, L501.5425, L503.6620, L300.4310, L300.8000, L500.2500, L503.6005, L100.0100 #### [facility] [address] [place], [address] Lactic acid measurementOrder ed By: Rafael Martines on 06-24-2024 Lactate [Moles/Vol] 0.9 mmol/L 0.4-2.0 [facility] Lymphocytes Auto (Unsp spec) [#/Vol]Ordered By: Rafael Martines on 06-24-2024 Lymphocytes (Bld) [#/Vol] 2.02 10*3/uL 0.83-4.51 [facility] Lymphocytes/100 WBC Auto (Un sp spec)Ordered By: Rafael Martines on 06-24-2024 Lymphocytes/100 WBC (Bld) 17.6 % Low 19-41 [facility] MCV (mean corpuscular volume ) determinationOrdered By: Rafael Martines on 06-24-2024 MCV (RBC) [Entitic vol] 83.6 fL 81-99 [facility] Mean corpuscular hemoglobin (MCH) determinationOrdered By: Rafael Martines on 06-24-2024 MCH (RBC) [Entitic mass] 26.2 pg Low 27.0-32.0 [facility] Mean corpuscular hemoglobin concentration (MCHC) determinationOrdered By: Rafael Martines on 06-24-2024 MCHC (RBC) [Mass/Vol] 31.4 g/dL Low 32-36 [facility] Mean platelet volume determi nationOrdered By: Rafael Martines on 06-24-2024 Platelet mean volume (Bld) [Entitic vol] 10.7 fL 6.2-12.0 [facility] Microorganism identified Cx Nom (Unsp spec)Ordered By: Rafael Martines on 06-24-2024 Bacteria Detection (PCR) Meth. resistant Staph. aureus Abnormal [facility] Microscopic analysis of urin e for red blood cells (RBC)Ordered By: Rafael Martines on 06-24-2024 Urine RBC 0 SEEN /hpf 0-5 [facility] Monocyte percentageOrdered B y: Rafael Martines on 06-24-2024 Monocytes/100 WBC (Bld) 9.1 % 0-10 [facility] Mucus LM Ql (Urine sed)Order ed By: Rafael Martines on 06-24-2024 Mucus Ql (Urine sed) 0 SEEN /hpf [facility] Neutrophil percentageOrdered By: Rafael Martines on 06-24-2024 Neutrophils/100 WBC (Bld) 72.0 % High 47-70 [facility] Nitrite Test strip Ql (U)Ord ered By: Rafael Martines on 06-24-2024 Nitrite Ql (U) Negative Negative [facility] Nucleated red blood cell per centageOrdered By: Rafael Martines on 06-24-2024 Nucleated RBC/100 WBC (Bld) [Ratio] 0 % 0-5 [facility] Partial Thromboplast Timeon 06-24-2024 aPTT Coag (Bld) [Time] 47.3 s High 24.1-36.2 [facility] Comment on above: Performed By: #### L 300.3900, L501.5425, L503.6620, L300.4310, L300.8000, L500.2500, L503.6005, L100.0100 #### [facility] [address] [place], [address] Platelet countOrdered By: Balwinder Martines on 06-24-2024 Platelets (Bld) [#/Vol] 462 10*3/uL High 150-450 [facility] Potassium measurementOrdered By: Rafael Martines on 06-24-2024 Potassium [Moles/Vol] 3.5 mmol/L 3.5-5.1 [facility] Protein Test strip Ql (U)Ord ered By: Rafael Martines on 06-24-2024 Protein Ql (U) 15 mg/dl High Negative [facility] Prothrombin Time w/INRon INR Coag (PPP) [Relative time] 1.2 {INR} Normal [facility] Comment on above: Performed By: #### L 300.3900, L501.5425, L503.6620, L300.4310, L300.8000, L500.2500, L503.6005, L100.0100 #### [facility] [address] [place], [place], [address] PT Coag (PPP) [Time] 15.5 s High 11.7-14.9 [facility] Comment on above: Performed By: #### L 300.3900, L501.5425, L503.6620, L300.4310, L300.8000, L500.2500, L503.6005, L100.0100 #### [facility] [address] [place], [address] Prothrombin timeOrdered By: Rafael Martines on 06-24-2024 PT Coag (PPP) [Time] 15.5 s High 11.7-14.9 [facility] RBC Auto (Bld) [#/Vol]Ordere d By: Rafael Martines on 06-24-2024 RBC (Bld) [#/Vol] 3.85 10*6/uL Low 4.2-5.4 [facility] Serum anion gap measurementO rdered By: Rafael Martines on 06-24-2024 Anion gap [Moles/Vol] 9 mmol/L 5-15 [facility] Serum or plasma calcium francisco urement (mass/volume)Ordered By: Rafael Cid on 06-24-2024 Calcium [Mass/Vol] 8.7 mg/dL 8.5-10.1 [facility] Serum or plasma creatinine m easurement (mass/volume)Ordered By: Rafael Cid on 06-24-2024 Creatinine [Mass/Vol] 0.81 mg/dL 0.55-1.02 [facility] Comment on above: The validity of the calculated GFR & GFRAA in patients over 70 years has not been determined. Clinical correlation is essential. Serum or plasma urea nitroge n measurement (mass/volume)Ordered By: Rafael Martines on 06-24-2024 Urea nitrogen [Mass/Vol] 10 mg/dL 7-18 [facility] Sodium levelOrdered By: Chris Martines on 06-24-2024 Sodium [Moles/Vol] 133 mmol/L Low 136-145 [facility] Tibia Fibula 2 Viewson 06-24 Tibia Fibula 2 Views [facility] [address] [place], [place] [address] Tibia Fibula 2 Views MR#: [id number] Acct: [id number] Name: ZACKERY NUNEZ Rep #: [id number] : 1960 F 64 From: Phong Aaron MD PCP: Dr. Mikayla Strange MD Status: REG ER Study: Tibia Fibula 2 Views Date of Exam: 06/24/24 Exam# [id number] Ordering Dr: Rafael Martines DO [id number] EXAM: XR RIGHT TIBIA AND FIBULA, 2 [...] Rafael Martines DO; Dr. Mikayla Strange MD [facility]: Signed Normal [facility] Troponin IOrdered By: Rafael Martines on 06-24-2024 Troponin I High Sensitivity 6 pg/mL 3.0-54.0 [facility] Comment on above: Please Note: New Sherry t Units and Gender Specific Reference Ranges. For more information see Policy Stat Procedure [facility] High Sensitivity Troponin (TNIH) and attachments. Urinalysis, Completeon 06-24 BACTERIA 3+ /hpf Normal None Seen [facility] Comment on above: Order Comment: MORENA TER SPECIMEN Performed By: #### L 500.4050, L100.0100 #### [facility] [address] [place], [address] WBC >100 SEEN Normal 0-5 [facility] Comment on above: Order Comment: MORENA TER SPECIMEN Performed By: #### L 500.4050, L100.0100 #### [facility] [address] [place], [address] BILIRUBIN URINE Negative Normal Negative [facility] Comment on above: Order Comment: MORENA TER SPECIMEN Performed By: #### L 500.4050, L100.0100 #### [facility] [address] [place], [address] Clarity (U) Sl. Cloudy Normal Clear [facility] Comment on above: Order Comment: MORENA TER SPECIMEN Performed By: #### L 500.4050, L100.0100 #### [facility] [address] [place], [address] Color (U) Yellow Normal Yellow [facility] Comment on above: Order Comment: MORENA TER SPECIMEN Performed By: #### L 500.4050, L100.0100 #### [facility] [address] [place], [address] GLUCOSE, UR Normal Normal Normal [facility] Comment on above: Order Comment: MORENA TER SPECIMEN Performed By: #### L 500.4050, L100.0100 #### [facility] [address] [place], [address] KETONE UR Negative Normal Negative [facility] Comment on above: Order Comment: MORENA TER SPECIMEN Performed By: #### L 500.4050, L100.0100 #### [facility] [address] [place], [address] LEUK ESTERASE 500 /ul Abnormal Negative [facility] Comment on above: Order Comment: MORENA TER SPECIMEN Performed By: #### L 500.4050, L100.0100 #### [facility] [address] [place], [address] Nitrite Ql (U) Negative Normal Negative [facility] Comment on above: Order Comment: MORENA TER SPECIMEN Performed By: #### L 500.4050, L100.0100 #### [facility] [address] [place], [address] OCCULT BLOOD-UR 25 /ul Abnormal Negative [facility] Comment on above: Order Comment: MORENA TER SPECIMEN Performed By: #### L 500.4050, L100.0100 #### [facility] [address] [place], [address] pH UR 6.5 Normal 5.0 - 8.0 [facility] Comment on above: Order Comment: MORENA TER SPECIMEN Performed By: #### L 500.4050, L100.0100 #### [facility] [address] [place], [address] PROT DIPSTX 15 mg/dl Abnormal Negative [facility] Comment on above: Order Comment: MORENA TER SPECIMEN Performed By: #### L 500.4050, L100.0100 #### [facility] [address] [place], [address] SP.GR. DIPSTX 1.010 Normal 1.002-1.03 0 [facility] Comment on above: Order Comment: MORENA TER SPECIMEN Performed By: #### L 500.4050, L100.0100 #### [facility] [address] [place], [address] UROBILI Normal Normal Normal [facility] Comment on above: Order Comment: MORENA TER SPECIMEN Performed By: #### L 500.4050, L100.0100 #### [facility] [address] [place], [address] EPI,SQUAMOUS 0 SEEN Normal 5-10 [facility] Comment on above: Order Comment: MORENA TER SPECIMEN Performed By: #### L 500.4050, L100.0100 #### [facility] [address] [place], [address] Mucus Ql (Urine sed) 0 SEEN Normal [facility] Comment on above: Order Comment: MORENA TER SPECIMEN Performed By: #### L 500.4050, L100.0100 #### [facility] [address] [place], [address] RBC 0 SEEN Normal 0-5 [facility] Comment on above: Order Comment: MORENA TER SPECIMEN Performed By: #### L 500.4050, L100.0100 #### [facility] [address] [place], [address] Urine blood detectionOrdered By: Rafael Martines on 06-24-2024 Urine Occult Blood 25 /ul High Negative [facility] Urine clarityOrdered By: Miguel A Martines on 06-24-2024 Clarity (U) Sl. Cloudy Clear [facility] Urine color determinationOrd ered By: Rafael Martines on 06-24-2024 Color (U) Yellow Yellow [facility] Urine cultureOrdered By: Miguel A Martines on 06-24-2024 Bacteria identified Cx Nom (U) Klebsiella pneumoniae sp pneum Abnormal [facility] Urine leukocyte esterase det ection by dipstickOrdered By: Rafael Martines on 06-24-2024 Leukocyte esterase Test strip Ql (U) 500 /ul High Negative [facility] Urine pHOrdered By: Rafael Crews on 06-24-2024 pH (U) 6.5 [pH] 5.0 - 8.0 [facility] Urine sediment bacteria coun t by microscopy (number/high power field)Ordered By: Rafael Martines on 06-24-2024 Bacteria LM.HPF (Urine sed) [#/Area] 3 /[HPF] None Seen [facility] Urine specific gravity measu rementOrdered By: Rafael Martines on 06-24-2024 Specific gravity (U) [Rel density] 1.010 1.002-1.03 0 [facility] Urobilinogen Ql (U)Ordered B y: Rafael Martines on 06-24-2024 Urine Urobilinogen Normal mg/dl Normal [facility] Venous Duplex US, Unilateral on 06-24-2024 Venous Duplex US, Unilateral [facility] [address] [place] [address] Venous Duplex US, Unilateral 06/24/24 1601 MR#: [id number] Acct: [id number] Name: ZACKERY NUNEZ CHARLEY Rep #: [id number] : 1960 64 From: Eliel Andujar MD [...] Physician: Mikayla Strange Performed By: Demario Keene, LUDIVINA, RVT 06/25/24 1550 Date Eliel Andujar MD CC: Dr. Rafael Martines, DO; Dr. Mikayla Strange MD Date Dictated: 06/24/24 1601 Date Transcribed: 06/25/241549 [facility]: Signed Normal [facility] White blood cell (WBC) count Ordered By: Rafael Martines on 06-24-2024 WBC (Bld) [#/Vol] 11.5 10*3/uL High 4.4-11.0 [facility] White blood cell countOrdere d By: Rafael Martines on 06-24-2024 Urine WBC >100 SEEN /hpf 0-5 [facility] aPTT Coag (PPP) [Time]Ordere d By: Rafael Martines on 06-24-2024 aPTT Coag (Bld) [Time] 47.3 s High 24.1-36.2 [facility] Urinalysis complete panel (U )on 06-21-2024 BACTERIA UL >9821 High Negative [facility] Comment on above: Order Comment: Speci men Type: URINE SPECIMEN Ordering Facility: [facility] Address: [address] [place] [address] Performed By: #### 2 4356-8 #### [facility] CLIA [id number] [address] [place] [address] [place] Bilirubin Ql (U) Negative Normal Negative [facility] Comment on above: Order Comment: Speci men Type: URINE SPECIMEN Ordering Facility: [facility] Address: [address] [place] [address] Performed By: #### 2 4356-8 #### [facility] CLIA [id number] [facility] [place] [address] [place] Clarity (Unsp spec) Turbid Abnormal Clear [facility] Comment on above: Order Comment: Speci men Type: URINE SPECIMEN Ordering Facility: [facility] Address: [address] [place] [address] Performed By: #### 2 4356-8 #### [facility] CLIA [id number] [address] [place] [address] [place] Color (U) Yellow Normal Yellow [facility] Comment on above: Order Comment: Speci men Type: URINE SPECIMEN Ordering Facility: [facility] Address: [address] [place] [address] Performed By: #### 2 4356-8 #### [facility] CLIA [id number] [address] [place] [address] [place] Epithelial cells LM.HPF (Urine sed) [#/Area] Few Normal [facility] Comment on above: Order Comment: Speci men Type: URINE SPECIMEN Ordering Facility: [facility] Address: [address] [place] [address] Performed By: #### 2 4356-8 #### [facility] CLIA [id number] [address] [place] [address] [place] Glucose Test strip (U) [Mass/Vol] Negative Normal Negative [facility] Comment on above: Order Comment: Speci men Type: URINE SPECIMEN Ordering Facility: [facility] Address: [address] [place] [address] Performed By: #### 2 4356-8 #### [facility] CLIA [id number] [address] [place] [address] [place] Hemoglobin Ql (U) 1+ Abnormal Negative [facility] Comment on above: Order Comment: Speci men Type: URINE SPECIMEN Ordering Facility: [facility] Address: [address] [place] [address] Performed By: #### 2 4356-8 #### [facility] CLIA [id number] [address] [place] [address] [place] Hyaline casts (Urine sed) [#/Area] 1-3 /LPF Abnormal 0 /LPF [facility] Comment on above: Order Comment: Speci men Type: URINE SPECIMEN Ordering Facility: [facility] Address: [address] [place] [address] Performed By: #### 2 4356-8 #### [facility] CLIA [id number] [address] [place] [address] [place] Ketones Ql (U) Negative Normal Negative [facility] Comment on above: Order Comment: Speci men Type: URINE SPECIMEN Ordering Facility: [facility] Address: [address] [place] [address] Performed By: #### 2 4356-8 #### [facility] CLIA [id number] [address] [place] [address] [place] Leukocyte esterase Test strip Ql (U) 3+ Abnormal Negative [facility] Comment on above: Order Comment: Speci men Type: URINE SPECIMEN Ordering Facility: [facility] Address: [address] [place] [address] Performed By: #### 2 4356-8 #### [facility] CLIA [id number] [address] [place] [address] [place] Nitrite Ql (U) Positive Abnormal Negative [facility] Comment on above: Order Comment: Speci men Type: URINE SPECIMEN Ordering Facility: [facility] Address: [address] [place] [address] Performed By: #### 2 4356-8 #### [facility] CLIA [id number] [address] [place] [address] [place] pH (U) 5.5 [pH] Normal <8.5 [facility] Comment on above: Order Comment: Speci men Type: URINE SPECIMEN Ordering Facility: [facility] Address: [address] [place] [address] Performed By: #### 2 4356-8 #### [facility] CLIA [id number] [address] [place] [address] [place] Protein (U) [Mass/Vol] Trace Abnormal Negative [facility] Comment on above: Order Comment: Speci men Type: URINE SPECIMEN Ordering Facility: [facility] Address: [address] [place] [address] Performed By: #### 2 4356-8 #### [facility] CLIA [id number] [address] [place] [address] [place] RBC LM.HPF (Urine sed) [#/Area] /[HPF] Abnormal 0-2 /HPF [facility] Comment on above: Order Comment: Speci men Type: URINE SPECIMEN Ordering Facility: [facility] Address: [address] [place] [address] Performed By: #### 2 4356-8 #### [facility] CLIA [id number] [address] [place] [address] [place] Specific gravity (U) [Rel density] 1.006 Normal 1.005-1.03 0 [facility] Comment on above: Order Comment: Speci men Type: URINE SPECIMEN Ordering Facility: [facility] Address: [address] [place] [address] Performed By: #### 2 4356-8 #### [facility] CLIA [id number] [address] [place] [address] [place] Urobilinogen Ql (U) 0.2 EU/dL Normal 0.2-1.0 EU/dL [facility] Comment on above: Order Comment: Speci men Type: URINE SPECIMEN Ordering Facility: [facility] Address: [address] [place] [address] Performed By: #### 2 4356-8 #### [facility] CLIA [id number] [address] [place] [address] [place] WBC LM.HPF (Urine sed) [#/Area] /[HPF] Abnormal 0-5 /HPF [facility] Comment on above: Order Comment: Speci men Type: URINE SPECIMEN Ordering Facility: [facility] Address: [address] [place] [address] Performed By: #### 2 4356-8 #### [facility] CLIA [id number] [address] [place] [address] OF [place] V[place]ay 06-14-2024 [facility] ZACKERY NUNEZ ([id number]) 1960 F Date Time Provider Department 06/14/24 MIKAYLA STRANGE [facility] During your visit today, we recorded the following information about you: Linda Madison, JOURDAN 06/14/2024 2:26 PM Signed Jony from [facility] calling to update provider. States pt refused long term and he had to let provider know. [...] management [R52] (more content not included)... Normal [facility]10[facility]2024 [facility] -- ZACKERY NUNEZ ([id number]) 1960 F Date Time Provider Department 06/10[facility]24 [facility] During your visit today, we recorded the following information about you: Soraida Escudero LPN 06/10/2024 2:49 PM Signed Helen from [facility] calling asking for verbal order for long term, patient is dizzy upon standing. She started [...] office to give the verbal order at [phone] or can call Helen back. Please advise [...] [M54.9, G89.29] (more content not included)... Normal [facility] CNPNon 06-04-2024 CNPN Telephone ([facility]) -- ZACKERY NUNEZ ([id number]) 1960 F Date Time Provider Department 06/04/24 [facility] During your visit today, we recorded the following information about you: Makenna Crowder RN 06/04/2024 12:15 PM Signed Will from [facility] calling and asking if provider will follow orders for home health physical therapy and occupational therapy? JOURDAN Jansen William J, MD 06/04/2024 2:09 PM Signed Ok to do Soraida Escudero LPN 06/04/2024 2:59 PM Signed Phon ed [facility] left detailed message on voicemail with orders [...] 10/25/2022 Pe (more content not included)... Normal [facility] CNOVon 06-03-2024 CNOV Office Visit (AGPOB1 ) -- ZACKERY NUNEZ ([id number]) 1960 F Date Time Provider Department 06/03/24 1:45 PM SYDNI WAGGONER AGB1 During your visit today, we recorded the [...] mg capsul (more content not included)... Normal [facility] Basic metabolic 2000 panelon 05-09-2024 Anion gap [Moles/Vol] 9 mmol/L Normal 8-15 [facility] Comment on above: Order Comment: Speci men Type: BLOOD SPECIMENOrdering Facility: [facility] Address: [address] [place] [address] Performed By: #### 6 00-7 #### [facility] CLIA [id number] [address] STATES OF [facility] Calcium [Mass/Vol] 8.7 mg/dL Normal 8.5-10.2 [facility] Comment on above: Order Comment: Speci men Type: BLOOD SPECIMENOrdering Facility: [facility] Address: [facility] [place] [address] Performed By: #### 6 00-7 #### [facility] CLIA [id number] [address] [place] [address] [place] Chloride [Moles/Vol] 94 mmol/L Low 98-107 [facility] Comment on above: Order Comment: Speci men Type: BLOOD SPECIMENOrdering Facility: [facility] Address: [address] [place] [address] Performed By: #### 6 00-7 #### [facility] CLIA [id number] [address] [place] CO2 [Moles/Vol] 28 mmol/L Normal 22-30 [facility] Comment on above: Order Comment: Speci men Type: BLOOD SPECIMENOrdering Facility: [facility] Address: [address] [place] [address] Performed By: #### 6 00-7 #### [facility] CLIA [id number] [address] [place] Creatinine [Mass/Vol] 0.85 mg/dL Normal 0.58-0.96 [facility] Comment on above: Order Comment: Speci men Type: BLOOD SPECIMENOrdering Facility: [facility] Address: [address] [place] [address] Performed By: #### 6 00-7 #### [facility] CLIA [id number] [address] Creatinine and Glomerular filtration rate.predicted panel (S/P/Bld) 76 mL/min/1.73m??? Normal >=60 [facility] Comment on above: Order Comment: Speci men Type: BLOOD SPECIMENOrdering Facility: [facility] Address: [address] [place] [address] Result Comment: Sienna mated Glomerular Filtration Rate [...] GFR. Performed By: #### 6 00-7 #### [facility] CLIA [id number] [address] [place] Glucose [Mass/Vol] 125 mg/dL High 74-99 [facility] Comment on above: Order Comment: Speci men Type: BLOOD SPECIMENOrdering Facility: [facility] Address: [address] [place] [address] Result Comment: The [place] Diabetes Association (ADA) provides guidance for cutoff [...] Standards of Medical Care in Diabetes 2016, [place] [employer]. Diabetes Care. 2016.39(Suppl 1). Performed By: #### 6 00-7 #### [facility] CLIA [id number] [address] [place] [address] [place] Potassium [Moles/Vol] 4.0 mmol/L Normal 3.7-5.1 [facility] Comment on above: Order Comment: Cji flash Type: BLOOD SPECIMENOrdering Facility: [facility] Address: [address] [place] [address] Performed By: #### 6 00-7 #### [facility] CLIA [id number] [address] [place] Sodium [Moles/Vol] 131 mmol/L Low 136-144 [facility] Comment on above: Order Comment: Speci men Type: BLOOD SPECIMENOrdering Facility: [facility] Address: [address] [place] [address] Performed By: #### 6 00-7 #### [facility] CLIA [id number] [address] [place] [address] [place] Urea nitrogen [Mass/Vol] 11 mg/dL Normal 7-21 [facility] Comment on above: Order Comment: Cji men Type: BLOOD SPECIMENOrdering Facility: [facility] Address: [address] [place] [address] Performed By: #### 6 00-7 #### [facility] CLIA [id number] [address] CBC panel Auto (Bld)on 05-09 Erythrocyte distribution width (RBC) [Ratio] 14.0 % Normal 11.5-15.0 [facility] Comment on above: Order Comment: Speci men Type: BLOOD SPECIMENOrdering Facility: [facility] Address: [address] [place] [address] Performed By: #### 5 8410-2 ####[facility]ORY[facility]IA [id number] [address] Hematocrit (Bld) [Volume fraction] 27.2 % Low 36.0-46.0 [facility] Comment on above: Order Comment: Speci men Type: BLOOD SPECIMENOrdering Facility: [facility] Address: [address] [place] [address] Performed By: #### 5 8410-2 ####[facility]ORYCLIA [id number] [address] Hemoglobin (Bld) [Mass/Vol] 8.6 g/dL Low 11.5-15.5 [facility] Comment on above: Order Comment: Speci men Type: BLOOD SPECIMENOrdering Facility: [facility] Address: [address] [place] [address] Performed By: #### 5 8410-2 ####[facility]ORYCLIA [id number] [address] STATES [facility] MCH (RBC) [Entitic mass] 29.3 pg Normal 26.0-34.0 [facility] Comment on above: Order Comment: Speci men Type: BLOOD SPECIMENOrdering Facility: [facility] Address: [address] [place] [address] Performed By: #### 5 8410-2 ####[facility]ORYCLIA [id number] [address] MCHC (RBC) [Mass/Vol] 31.6 g/dL Normal 30.5-36.0 [facility] Comment on above: Order Comment: Speci men Type: BLOOD SPECIMENOrdering Facility: [facility] Address: [address] [place] [address] Performed By: #### 5 8410-2 ####[facility]ORYCLIA [id number] [address] STATES OF [facility] MCV (RBC) [Entitic vol] 92.5 fL Normal 80.0-100.0 [facility] Comment on above: Order Comment: Speci men Type: BLOOD SPECIMENOrdering Facility: [facility] Address: [address] [place] [address] Performed By: #### 5 8410-2 ####[facility]ORYCLIA [id number] [address] OF [facility] Nucleated RBC (Bld) [#/Vol] 10*3/uL Normal <0.01 [facility] Comment on above: Order Comment: Speci men Type: BLOOD SPECIMENOrdering Facility: [facility] Address: [address] [place] [address] Performed By: #### 5 8410-2 ####[facility]ORYCLIA [id number] [address] STATES OF [facility] Platelet mean volume (Bld) [Entitic vol] 10.2 fL Normal 9.0-12.7 [facility] Comment on above: Order Comment: Speci men Type: BLOOD SPECIMENOrdering Facility: [facility] Address: [address] [place] [address] Performed By: #### 5 8410-2 ####[facility]ORYCLIA [id number] [address] [place] Platelets (Bld) [#/Vol] 236 10*3/uL Normal 150-400 [facility] Comment on above: Order Comment: Speci men Type: BLOOD SPECIMENOrdering Facility: [facility] Address: [address] [place] [address] Performed By: #### 5 8410-2 ####[facility]ORYCLIA [id number] [address] [place] RBC (Bld) [#/Vol] 2.94 10*6/uL Low 3.90-5.20 [facility] Comment on above: Order Comment: Speci men Type: BLOOD SPECIMENOrdering Facility: [facility] Address: [address] [place] [address] Performed By: #### 5 8410-2 ####[facility]ORYCLIA [id number] [address] OF [facility] WBC (Bld) [#/Vol] 9.78 10*3/uL Normal 3.70-11.00 [facility] Comment on above: Order Comment: Speci men Type: BLOOD SPECIMENOrdering Facility: [facility] Address: [address] [place] [address] Performed By: #### 5 8410-2 ####[facility]ORYCLIA [id number] [address] CNDSon 05-09-2024 CN HNO ID: [id number] Author: SYDNI WAGGONER MD Service: Orthopaedic Surgery [...] has been followed by Sydni Coyne MD, MD. It was determined she would benefit from surgery. The procedure, its risks, benefits, and potential complications were discussed in detail with the patient or POA prior to surgery. Understanding of all topics was conveyed by the patient or POA, and consent was given for surgery. The patient was admitted through the Emergency Department to [facility] on 05/02/2024. The patient underwent surgery on [...] with Hibiclens (or similar wound vacuum cleaner repair person) and saline 50:50 solution around pin sites. [...] kg (200 lb), SpO2 96%. Discharge Disposition: Jail Facility The patient was instructed to follow-up in Future Appointments Date Time Provider Department Center 07/09[facility]2024 1:40 PM [facility] 2:00 PM Kd [place] PA-C [facility] [place] Highest Readmission Risk Score: 19 The 30 [...] highest ris (more content not included)... Normal [facility] HBA1C (OUTSIDE)Ordered By: Cortney Lopez on 05-09-2024 HbA1c (Bld) [Mass fraction] 5.8 % [facility] HISTORY PHYSICALon HISTORY PHYSICAL HNO ID: [id number] Author: JOCELIN BEST MD Service: Hospital Medicine Author Type: Physician Type: H&P Filed: 05/09/2024 10:49 Note Text: DEPARTMENT OF HOSPITAL MEDICINE HISTORY AND PHYSICAL EXAM SERVICE DATE: 05/09/2024 SERVICE TIME: 10:44 AM Primary Care Physician: Mikayla Strange MD NIGHT AND WEEKEND COVERAGE: From 7am - 7pm, please call Sound After 7pm, please call cross cover pager #[phone] Subjective CHIEF COMPLAINT: Fever HPI: This is [...] GI Ups (more content not included)... Normal [facility] NUTRITIONon 05-09-2024 NUTRITION HNO ID: [id number] Author: EMMY DESAI RD Service: ? Author [...] May 09, 2024 TIME: 11:18 AM Normal [facility] Procalcitonin SerPl-mCncon 1 07-09-2023 Procalcitonin [Mass/Vol] 0.19 ng/mL High <0.09 [facility] Comment on above: Order Comment: Speci men Type: BLOOD SPECIMENOrdering Facility: [facility] Address: [address] [place] [address] Result Comment: For a guided interpretation of test results, please visit the [facility] in Procalcitonin Calculator, [email or web address]. Performed By: #### 3 3959-8 ####[facility]ORYCLIA [id number] [address] [place] Urinalysis complete panel (U )on 05-09-2024 Bilirubin Ql (U) Negative Normal Negative [facility] Comment on above: Order Comment: Speci men Type: URINE SPECIMENOrdering Facility: [facility] Address: [address] [place] [address] Performed By: #### 2 4356-8 ####[facility]ATORYCLIA [id number] [place] [address] [place] Clarity (Unsp spec) Clear Normal Clear [facility] Comment on above: Order Comment: Speci men Type: URINE SPECIMENOrdering Facility: [facility] Address: [address] [place] [address] Performed By: #### 2 4356-8 ####[facility]ORYCLIA [id number] [address] [place] Color (U) Light Yellow Normal yellow [facility] Comment on above: Order Comment: Speci men Type: URINE SPECIMENOrdering Facility: [facility] Address: [address] [place] [address] Performed By: #### 2 4356-8 ####[facility] [id number] [address] Glucose Test strip (U) [Mass/Vol] Negative Normal Trace, Negative [facility] Comment on above: Order Comment: Speci men Type: URINE SPECIMENOrdering Facility: [facility] Address: [address] [place] [address] Performed By: #### 2 4356-8 ####[facility]ATORYCLIA [id number] [address] [place] Hemoglobin Ql (U) Negative Normal Negative, Trace [facility] Comment on above: Order Comment: Speci men Type: URINE SPECIMENOrdering Facility: [facility] Address: [address] [place] [address] Performed By: #### 2 4356-8 ####[facility]ORYCLIA [id number] [address] [place] Ketones Ql (U) Negative Normal Negative, Trace [facility] Comment on above: Order Comment: Speci men Type: URINE SPECIMENOrdering Facility: [facility] Address: [facility] [place] [address] Performed By: #### 2 4356-8 ####[facility]ORYCLIA [id number] [address] [place] Leukocyte esterase Test strip Ql (U) Negative Normal Negative, 25 Dheeraj/uL [facility] Comment on above: Order Comment: Speci men Type: URINE SPECIMENOrdering Facility: [facility] Address: [address] [place] [address] Performed By: #### 2 4356-8 ####[facility] [id number] [address] [place] Nitrite Ql (U) Negative Normal Negative [facility] Comment on above: Order Comment: Speci men Type: URINE SPECIMENOrdering Facility: [facility] Address: [address] [place] [address] Performed By: #### 2 4356-8 ####[facility]ORYCLIA [id number] [address] [place] pH (U) 6.0 [pH] Normal 5.0-8.0 [facility] Comment on above: Order Comment: Speci men Type: URINE SPECIMENOrdering Facility: [facility] Address: [address] [place] [address] Performed By: #### 2 4356-8 ####[facility]ORYCLIA [id number] [place] [address] [place] Protein (U) [Mass/Vol] Negative Normal Trace, Negative [facility] Comment on above: Order Comment: Speci men Type: URINE SPECIMENOrdering Facility: [facility] Address: [address] [place] [address] Performed By: #### 2 4356-8 ####[facility]ORYCLIA [id number] [place] [address] [place] RBC LM.HPF (Urine sed) [#/Area] 0-3 /HPF Normal 0-3 /HPF [facility] Comment on above: Order Comment: Speci men Type: URINE SPECIMENOrdering Facility: [facility] Address: [address] [place] [address] Performed By: #### 2 4356-8 ####[facility]ORYCLIA [id number] [address] [place] Specific gravity (U) [Rel density] 1.006 Normal 1.005-1.03 0 [facility] Comment on above: Order Comment: Speci men Type: URINE SPECIMENOrdering Facility: [facility] Address: [address] [place] [address] Performed By: #### 2 4356-8 ####[facility]ORYCLIA [id number] [address] Urobilinogen Ql (U) Normal Normal Normal [facility] Comment on above: Order Comment: Speci men Type: URINE SPECIMENOrdering Facility: [facility] Address: [address] [place] [address] Performed By: #### 2 4356-8 ####[facility]ATORYCLIA [id number] [address] WBC LM.HPF (Urine sed) [#/Area] 0-5 /HPF Normal 0-5 /HPF [facility] Comment on above: Order Comment: Speci men Type: URINE SPECIMENOrdering Facility: [facility] Address: [address] [place] [address] Performed By: #### 2 4356-8 ####[facility]ATORYCLIA [id number] [place] [id number] [facility] [place] XR CHEST 1V FRONTALon 2023 XR CHEST [...] Other: . IMPRESSION: No acute radiographic abnormality. [facility] Winder: CHERELLE Transcribe Date/Time: May 09 2024 8:53A Dictated by : JENNA MARIE MD This examination was interpreted and the report reviewed and electronically signed by: JENNA MARIE MD on May 09 2024 8:55AM EST [id number] Normal [facility] Basic metabolic 2000 panelon 05-08-2024 Anion gap [Moles/Vol] 10 mmol/L Normal 8-15 [facility] Comment on above: Order Comment: Speci men Type: BLOOD SPECIMENOrdering Facility: [facility] Address: [address] [place] [id number] Performed By: #### 2 4321-2 ####[facility]ATORYCLIA [id number] [address] [place] Calcium [Mass/Vol] 8.3 mg/dL Low 8.5-10.2 [facility] Comment on above: Order Comment: Speci men Type: BLOOD SPECIMENOrdering Facility: [facility] Address: [address] [place] [address] Performed By: #### 2 4321-2 ####[facility]ATORYCLIA [id number] [place] [address] [place] Chloride [Moles/Vol] 97 mmol/L Low 98-107 [facility] Comment on above: Order Comment: Speci men Type: BLOOD SPECIMENOrdering Facility: [facility] Address: [address] [place] [address] Performed By: #### 2 4321-2 ####[facility]ATORYCLIA [id number] [address] [place] CO2 [Moles/Vol] 26 mmol/L Normal 22-30 [facility] Comment on above: Order Comment: Speci men Type: BLOOD SPECIMENOrdering Facility: [facility] Address: [address] [place] [address] Performed By: #### 2 4321-2 ####[facility]ATORYCLIA [id number] [address] [place] Creatinine [Mass/Vol] 0.85 mg/dL Normal 0.58-0.96 [facility] Comment on above: Order Comment: Speci men Type: BLOOD SPECIMENOrdering Facility: [facility] Address: [address] [place] [address] Performed By: #### 2 4321-2 ####[facility]ATORYCLIA [id number] [address] [place] Creatinine and Glomerular filtration rate.predicted panel (S/P/Bld) 76 mL/min/1.73m??? Normal >=60 [facility] Comment on above: Order Comment: Speci men Type: BLOOD SPECIMENOrdering Facility: [facility] Address: [address], [place] [address] Result Comment: Sienna mated Glomerular Filtration Rate [...] actual GFR. Performed By: #### 2 4321-2 ####[facility]ATORYCLIA [id number] [place] [address] [place] Glucose [Mass/Vol] 137 mg/dL High 74-99 [facility] Comment on above: Order Comment: Nery vidales Type: BLOOD SPECIMENOrdering Facility: [facility] Address: [address] [place] [address] Result Comment: The [place] [employer] (ADA) provides guidance for cutoff [...] Standards of Medical Care in Diabetes 2016, [place] [employer]. Diabetes Care. 2016.39(Suppl 1). Performed By: #### 2 4321-2 ####[facility]ATORYCLIA [id number] [place] [address] [place] Potassium [Moles/Vol] 4.2 mmol/L Normal 3.7-5.1 [facility] Comment on above: Order Comment: Nery vidales Type: BLOOD SPECIMENOrdering Facility: [facility] Address: [address] [place] [address] Performed By: #### 2 4321-2 ####[facility]ATORYCLIA [id number] [place] [id number] [place] Sodium [Moles/Vol] 133 mmol/L Low 136-144 [facility] Comment on above: Order Comment: Speci men Type: BLOOD SPECIMENOrdering Facility: [facility] Address: [address] [place] [address] Performed By: #### 2 4321-2 ####[facility]ATORYCLIA [id number] [address] [place] Urea nitrogen [Mass/Vol] 10 mg/dL Normal 7-21 [facility] Comment on above: Order Comment: Speci men Type: BLOOD SPECIMENOrdering Facility: [facility] Address: [address] [place] [address] Performed By: #### 2 4321-2 ####[facility]ATORYCLIA [id number] [address] [place] CBC panel Auto (Bld)on 05-08 Erythrocyte distribution width (RBC) [Ratio] 13.6 % Normal 11.5-15.0 [facility] Comment on above: Order Comment: Speci men Type: BLOOD SPECIMENOrdering Facility: [facility] Address: [address] [place] [address] Performed By: #### 5 8410-2 ####[facility]ATORYCLIA [id number] [address] [place] Hematocrit (Bld) [Volume fraction] 27.4 % Low 36.0-46.0 [facility] Comment on above: Order Comment: Speci men Type: BLOOD SPECIMENOrdering Facility: [facility] Address: [address] [place] [address] Performed By: #### 5 8410-2 ####[facility]ORATORYCLIA [id number] [address] [place] Hemoglobin (Bld) [Mass/Vol] 8.7 g/dL Low 11.5-15.5 [facility] Comment on above: Order Comment: Speci men Type: BLOOD SPECIMENOrdering Facility: [facility] Address: [address] [place] [address] Performed By: #### 5 8410-2 ####[facility]ORATORYCLIA [id number] [address] MCH (RBC) [Entitic mass] 28.7 pg Normal 26.0-34.0 [facility] Comment on above: Order Comment: Speci men Type: BLOOD SPECIMENOrdering Facility: [facility] Address: [address] [place] [address] Performed By: #### 5 8410-2 ####[facility]ORATORYCLIA [id number] [address] STATES OF [facility] MCHC (RBC) [Mass/Vol] 31.8 g/dL Normal 30.5-36.0 [facility] Comment on above: Order Comment: Speci men Type: BLOOD SPECIMENOrdering Facility: [facility] Address: [address] [place] [address] Performed By: #### 5 8410-2 ####[facility]ATORYCLIA [id number] [address] MCV (RBC) [Entitic vol] 90.4 fL Normal 80.0-100.0 [facility] Comment on above: Order Comment: Speci men Type: BLOOD SPECIMENOrdering Facility: [facility] Address: [address] [place] [address] Performed By: #### 5 8410-2 ####[facility]ATORYCLIA [id number] [address] Nucleated RBC (Bld) [#/Vol] 10*3/uL Normal <0.01 [facility] Comment on above: Order Comment: Speci men Type: BLOOD SPECIMENOrdering Facility: [facility] Address: [address] [place] [address] Performed By: #### 5 8410-2 ####[facility]ATORYCLIA [id number] [address] Platelet mean volume (Bld) [Entitic vol] 10.2 fL Normal 9.0-12.7 [facility] Comment on above: Order Comment: Speci men Type: BLOOD SPECIMENOrdering Facility: [facility] Address: [address] [place] [address] Performed By: #### 5 8410-2 ####[facility]ORATORYCLIA [id number] [address] Platelets (Bld) [#/Vol] 222 10*3/uL Normal 150-400 [facility] Comment on above: Order Comment: Speci men Type: BLOOD SPECIMENOrdering Facility: [facility] Address: [address] [place] [address] Performed By: #### 5 8410-2 ####[facility]ORATORYCLIA [id number] [address] [place] RBC (Bld) [#/Vol] 3.03 10*6/uL Low 3.90-5.20 [facility] Comment on above: Order Comment: Speci men Type: BLOOD SPECIMENOrdering Facility: [facility] Address: [address] [place] [address] Performed By: #### 5 8410-2 ####[facility]ATORYCLIA [id number] [address] WBC (Bld) [#/Vol] 9.33 10*3/uL Normal 3.70-11.00 [facility] Comment on above: Order Comment: Speci men Type: BLOOD SPECIMENOrdering Facility: [facility] Address: [address] [place] [address] Performed By: #### 5 8410-2 ####[facility]ORATORYCLIA [id number] [address] NURSING PROGon 05-08-2024 NURSING PROG HNO ID: [id number] Author: JOSELIN PARKER, RN Service: Nursing Author Type: Registered Nurse Type: Nursing Progress Note Filed: 05/08/2024 17:41 Note Text: Notified ortho team about continued rise in temp. All other vital signs within normal limits. Will continue to monitor. Normal [facility] THERAPY NTon 05-08-2024 THERAPY NT HNO ID: [id number] Author: ANTWONANGELIC GUTIÉRREZ OTR/Twyla Service: Occupational Therapy Author Type: Occupational Therapist Type: Therapy (PT/OT/Speech/Resp) Filed: 05/08/2024 14:58 Note Text: OCCUPATIONAL THERAPY MISSED VISIT SERVICE DATE: 05/08/2024 SERVICE TIME: 1456 ROOM: [place] [address] Patient not seen due to Refused Treatment (Pt reports severe headache, firmly declines OT this afternoon.). Provided with cool washcloth, will try back as able/agreeable. SIGNATURE: KRANTHI Fuchs/Twyla PATIENT NAME: Zackery Nunez DATE: May 08, 2024 TIME: 2:57 PM Normal [facility] THERAPY NT HNO ID: [id number] Author: JAVY PERSAUD PTA Service: Physical Therapy Author Type: Start Up Specialist Type: Therapy (PT/OT/Speech/Resp) Filed: 05/08/2024 12:01 Note Text: -- Attestation signed by Aryan Valles, PT at 05/08/2024 4:49 PM I reviewed and agree with the assessment as documented above. 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 Patient set up with ice to surgical hip and elevated lower extremity as needed. Therapeutic Activity (60232) Treatment Minutes: 13 $ Therapeutic Activity (06592) Billed Units: 1 unit cuing/assist for proper [...] Standing Farhan (more content not included)... Normal [facility] ANES POSTPROC EVALon 024 ANES POSTPROC EVAL HNO ID: [id number] Author: PERLA VILA MD Service: Anesthesiology Author Type: Anesthesiologist Type: Anesthesia Postprocedure Evaluation Filed: 05/09/2024 11:37 Note Text: POST ANESTHESIA EVALUATION NOTE : 1960 Procedure Summary Date: 05/07/24 Room / Location: [place] Anesthesia Start: 1426 Anesthesia Stop: 1645 Procedures: ORIF TIBIAL PLATEAU [...] May 09, 2024 TIME: 11:36 AM CSN: [id number] Normal [facility] ANES PRE-OPon 05-07-2024 ANES PRE-OP HNO ID: [id number] Author: PERLA VILA MD Service: Anesthesiology Author [...] PLATEAU (Right: Knee) Location: [place] Surgeons: Sydni Waggoner MD Estimated body [...] complication, without long-term current use of insulin ([facility]) -RENAL (+) Stage 3 chronic kidney disease ([facility]) NEURO-PSYCH (+) Migraine without aura, intractable, without status migrainosus Other (+) Rheumatoid arthritis ([facility]) I - PHYSICAL EVALUATION AIRWAY Patient intubated: [...] and consent discussed: yes. Patient / Responsible Republican agrees to proceed: yes Patient / Surrogate [...] Hold] estradiol 3 g vaginal cream (ESTRACE) [id number] Applicator VAGINAL DAILY [Transfer Hold] NaCl 0.9% [...] daily. (Patient (more content not included)... Normal [facility] BRIEF OP NOTon 05-07-2024 BRIEF OP NOT HNO ID: [id number] Author: SAHARA ROYAL MD Service: Orthopaedic Surgery Author Type: Resident Type: Brief Op Note Filed: 05/07/2024 16:56 Note Text: Orthopaedic Surgery Brief Operative Note Log ID: [id number] Surgery/Procedure Date: 05/07/2024 Incision/Procedure Start Time: 2:55 PM Incision Close/Procedure End Time: 4:32 PM Surgeon(s)/Proceduralist(s ) and External Relations Director(s): Surgeons and Role: * Sydni Waggoner MD [...] Implant Name Type Inv. Item Serial No. 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 LRB No. Used Action GRAFT BN AUGMENT INJ 3.0CC - [id number] Graft GRAFT BN AUGMENT INJ 3.0CC [facility] [id number] Right 1 Implanted PROXIMAL POSTEROMEDIAL TIBIA PLATE R 3.5MM 82MM 5 HOLES Implant MATILDA Right 1 Implanted SCREW BONE 3.5MM 32MM TITANIUM CORTICAL LOCK NONSTERILE AXSOS 3 - [id number] Screw SCREW BONE 3.5MM 32MM TITANIUM CORTICAL LOCK NONSTERILE AXSOS 3 MATILDA Right 1 Implanted SCREW BONE 3.5MM 40MM TITANIUM CORTICAL NONSTERILE AXSOS 3 - [id number] Screw SCREW BONE 3.5MM 40MM TITANIUM CORTICAL NONSTERILE AXSOS 3 MATILDA Right 1 Implanted LOCKING SCREW 3.5MM / T15 / L70MM Implant MATILDA Right 1 Implanted LOCKING SCREW 3.5MM / T15 / L60MM Implant MATILDA Right 2 Implanted WIRE LIBBY 1.6MM STAINLESS STEEL 150MM FIXATION LOW PROFILE HIGH - [id number] Wire WIRE LIBBY 1.6MM STAINLESS STEEL 150MM FIXATION LOW PROFILE HIGH MATILDA TRAUMA Right 1 Non-Implant LOCKING SCREW 3.5MM / T15 / L20MM Implant MATILDA Right 1 Implanted LOCKING SCREW 3.5MM / T15 / L65MM Implant MATILDA Right 1 Implanted LOCKING SCREW 3.5MM / T15 / L65MM Implant MATILDA Right 1 Wasted WIRE LIBBY VARIAX 2MM STAINLESS STEEL 150MM FIXATION TROCAR POINT - [id number] Wire WIRE LIBBY VARIAX 2MM STAINLESS STEEL [...] Orthopedic Surgery Resident 05/07/24 4:54 PM Normal [facility] Basic metabolic 2000 panelon 05-07-2024 Anion gap [Moles/Vol] 11 mmol/L Normal 8-15 [facility] Comment on above: Order Comment: Speci men Type: BLOOD SPECIMENOrdering Facility: [facility] Address: [address] [place] [address] Performed By: #### 6 00-7 #### [facility] CLIA [id number] [address] [place] Calcium [Mass/Vol] 8.6 mg/dL Normal 8.5-10.2 [facility] Comment on above: Order Comment: Speci men Type: BLOOD SPECIMENOrdering Facility: [facility] Address: [address] [place] [address] Performed By: #### 6 00-7 #### [facility] CLIA [id number] [address] [place] [address] [place] Chloride [Moles/Vol] 96 mmol/L Low 98-107 [facility] Comment on above: Order Comment: Speci men Type: BLOOD SPECIMENOrdering Facility: [facility] Address: [address] [place] [address] Performed By: #### 6 -7 #### [facility] CLIA [id number] [address] [place] CO2 [Moles/Vol] 24 mmol/L Normal 22-30 [facility] Comment on above: Order Comment: Speci men Type: BLOOD SPECIMENOrdering Facility: [facility] Address: [address] [place] [address] Performed By: #### 6 -7 #### [facility] CLIA [id number] [address] [place] Creatinine [Mass/Vol] 0.81 mg/dL Normal 0.58-0.96 [facility] Comment on above: Order Comment: Speci men Type: BLOOD SPECIMENOrdering Facility: [facility] Address: [address] [place] [address] Performed By: #### 6 00-7 #### [facility] CLIA [id number] [address] [place] Creatinine and Glomerular filtration rate.predicted panel (S/P/Bld) 80 mL/min/1.73m??? Normal >=60 [facility] Comment on above: Order Comment: Nery vidales Type: BLOOD SPECIMENOrdering Facility: [facility] Address: [address] [place] [address] Result Comment: Sienna mated Glomerular Filtration Rate [...] GFR. Performed By: #### 6 00-7 #### [facility] CLIA [id number] [address] [place] [address] [place] Glucose [Mass/Vol] 104 mg/dL High 74-99 [facility] Comment on above: Order Comment: Nery vidales Type: BLOOD SPECIMENOrdering Facility: [facility] Address: [address] [place] [address] Result Comment: The [place] Diabetes Association (ADA) provides guidance for cutoff [...] Standards of Medical Care in Diabetes 2016, [place] [employer]. Diabetes Care. 2016.39(Suppl 1). Performed By: #### 6 00-7 #### [facility] CLIA [id number] [address] [place] [address] [place] Potassium [Moles/Vol] 4.1 mmol/L Normal 3.7-5.1 [facility] Comment on above: Order Comment: Nery vidales Type: BLOOD SPECIMENOrdering Facility: [facility] Address: [address] [place] [id number] Performed By: #### 6 00-7 #### [facility] CLIA [id number] [address] STATES [facility] Sodium [Moles/Vol] 131 mmol/L Low 136-144 [facility] Comment on above: Order Comment: Speci men Type: BLOOD SPECIMENOrdering Facility: [facility] Address: [address] [place] [address] Performed By: #### 6 00-7 #### [facility] CLIA [id number] [address] [place] Urea nitrogen [Mass/Vol] 10 mg/dL Normal 7-21 [facility] Comment on above: Order Comment: Speci men Type: BLOOD SPECIMENOrdering Facility: [facility] Address: [address] [place] [address] Performed By: #### 6 00-7 #### [facility] CLIA [id number] [address] [place] CBC panel Auto (Bld)on 05-07 Erythrocyte distribution width (RBC) [Ratio] 13.8 % Normal 11.5-15.0 [facility] Comment on above: Order Comment: Speci men Type: BLOOD SPECIMENOrdering Facility: [facility] Address: [address] [place] [address] Performed By: #### 5 8410-2 ####[facility]ORYCLIA [id number] [address] [place] Hematocrit (Bld) [Volume fraction] 27.6 % Low 36.0-46.0 [facility] Comment on above: Order Comment: Speci men Type: BLOOD SPECIMENOrdering Facility: [facility] Address: [address] [place] [address] Performed By: #### 5 8410-2 ####[facility]ATORYCLIA [id number] [address] [place] Hemoglobin (Bld) [Mass/Vol] 8.8 g/dL Low 11.5-15.5 [facility] Comment on above: Order Comment: Speci men Type: BLOOD SPECIMENOrdering Facility: [facility] Address: [address] [place] [address] Performed By: #### 5 8410-2 ####[facility]ATORYCLIA [id number] [address] MCH (RBC) [Entitic mass] 28.9 pg Normal 26.0-34.0 [facility] Comment on above: Order Comment: Speci men Type: BLOOD SPECIMENOrdering Facility: [facility] Address: [address] [place] [address] Performed By: #### 5 8410-2 ####[facility]ATORYCLIA [id number] [address] MCHC (RBC) [Mass/Vol] 31.9 g/dL Normal 30.5-36.0 [facility] Comment on above: Order Comment: Speci men Type: BLOOD SPECIMENOrdering Facility: [facility] Address: [address] [place] [address] Performed By: #### 5 8410-2 ####[facility]ATORYCLIA [id number] [address] MCV (RBC) [Entitic vol] 90.5 fL Normal 80.0-100.0 [facility] Comment on above: Order Comment: Speci men Type: BLOOD SPECIMENOrdering Facility: [facility] Address: [address] [place] [address] Performed By: #### 5 8410-2 ####[facility]ATORYCLIA [id number] [address] Nucleated RBC (Bld) [#/Vol] 10*3/uL Normal <0.01 [facility] Comment on above: Order Comment: Speci men Type: BLOOD SPECIMENOrdering Facility: [facility] Address: [address] [place] [address] Performed By: #### 5 8410-2 ####[facility]ATORYCLIA [id number] [address] Platelet mean volume (Bld) [Entitic vol] 10.4 fL Normal 9.0-12.7 [facility] Comment on above: Order Comment: Speci men Type: BLOOD SPECIMENOrdering Facility: [facility] Address: [address] [place] [address] Performed By: #### 5 8410-2 ####[facility]ORATORYCLIA [id number] [address] OF [facility] Platelets (Bld) [#/Vol] 199 10*3/uL Normal 150-400 [facility] Comment on above: Order Comment: Speci men Type: BLOOD SPECIMENOrdering Facility: [facility] Address: [address] [place] [address] Performed By: #### 5 8410-2 ####[facility]ATORYCLIA [id number] [address] OF [facility] RBC (Bld) [#/Vol] 3.05 10*6/uL Low 3.90-5.20 [facility] Comment on above: Order Comment: Speci men Type: BLOOD SPECIMENOrdering Facility: [facility] Address: [address] [place] [address] Performed By: #### 5 8410-2 ####[facility]ATORYCLIA [id number] [address] OF [facility] WBC (Bld) [#/Vol] 8.22 10*3/uL Normal 3.70-11.00 [facility] Comment on above: Order Comment: Speci men Type: BLOOD SPECIMENOrdering Facility: [facility] Address: [address] [place] [address] Performed By: #### 5 8410-2 ####[facility]ORATORYCLIA [id number] [address] OF [facility] NURSING PROGon 05-07-2024 NURSING PROG HNO ID: [id number] Author: CHACHA SCHNEIDER RN Service: Nursing Author Type: Registered Nurse Type: Nursing Progress Note Filed: 05/08/2024 03:44 Note Text: Ortho resident updated to oral temperature of 102.1F. Patient administered tylenol and ice packs given. Will monitor for changes. Normal [facility] OPERATIVE NOon 05-07-2024 OPERATIVE NO HNO ID: [id number] Author: SYDNI WAGGONER MD Service: Orthopaedic Surgery Author Type: Physician Type: Operative Report Filed: 05/08/2024 20:33 Note Text: OPERATIVE/PROCEDURE REPORT LOG ID: [id number] SURGERY/PROCEDURE DATE: 05/07/2024 INCISION/PROCEDURE START TIME: 2:55 PM INCISION CLOSE/PROCEDURE END TIME: 4:32 PM SURGEON(S)/PROCEDURALIST(S ) AND FREQUENCY CHECKER(S): Surgeons and Role: * Sydni Waggoner MD - Primary * Sahara Royal MD - Resident - Assisting * Dennis Cancino MD - Resident - Assisting No Additional Staff PRE-OP/PRE-PROCEDURE DIAGNOSIS: 1) Right Periprosthetic Proximal Tibia Fracture, Closed POST-OP/POST-PROCEDURE DIAGNOSIS: 1) Right Periprosthetic Proximal Tibia Fracture, Closed SURGERY/PROCEDURE(S): 1) Open Treatment of the Right Periprosthetic Tibia Fracture, Proximal; Bicondylar with Internal Fixation (CPT 82362 - 58) 2) Revision of Right Lower Extremity Knee-Spanning Uniplanar External Fixator Requiring Anesthesia (CPT 14787 - 58) 3) Negative Pressure Wound Therapy Utilizing Durable Medical Equipment; Total Surface Area Less than 50 Square Centimeters (CPT 71973 - 58) ANESTHESIA: 1) General ANTIBIOTICS: 1) Ancef 2g IV ESTIMATED BLOOD LOSS: 1) 150 CC FLUIDS: 1) Per Anesthesia Documentation SPECIMENS: 1) None CLINICAL INDICATIONS: 64 year old female was transferred to [facility] on 05/02/2024 for management of a complex [...] out was then conducted in accordance with [facility] policy. After all members of the [...] total knee (more content not included)... Normal [facility] THERAPY NTon 05-07-2024 THERAPY NT HNO ID: [id number] Author: KVNG NOBLE PT Service: Physical Therapy Author Type: Start Up Specialist Type: Therapy (PT/OT/Speech/Resp) Filed: 05/07/2024 15:35 Note Text: -- Attestation signed by Kvng Noble PT at 05/07/2024 3:35 PM I reviewed and agree with the documentation corresponding to this therapy visit. 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 Patient set up with ice to surgical hip and elevated lower extremity as needed. Therapeutic Activity (92036) Treatment Minutes: 9 $ Therapeutic Activity (21237) Billed Units: 1 unit cuing /assist for [...] Balance: Poor (more content not included)... Normal [facility] XR KNEE 2V AP/LAT RTon 05-07 XR KNEE 2V AP/LAT RT * * *Final Report* * * DATE OF EXAM: May 07 2024 4:52PM [facility] 5207 - XR KNEE 2V AP/LAT RT [...] approximately the level of the inferior endplate. Solid Center Winder: CHERELLE Transcribe Date/Time: May 08 2024 7:32A Dictated by : FRANTZ AYON MD This examination was interpreted and the report reviewed and electronically signed by: FRANTZ AYON MD on May 08 2024 7:52AM EST [id number] Normal [facility] Basic metabolic 2000 panelon 05-06-2024 Anion gap [Moles/Vol] 9 mmol/L Normal 8-15 [facility] Comment on above: Order Comment: Speci men Type: BLOOD SPECIMENOrdering Facility: [facility] Address: [address] [place] [address] Performed By: #### 2 4321-2 ####[facility] LABORATORYCLIA [id number] [place] [address] [place] Calcium [Mass/Vol] 8.7 mg/dL Normal 8.5-10.2 [facility] Comment on above: Order Comment: Speci men Type: BLOOD SPECIMENOrdering Facility: [facility] Address: [address] [place] [address] Performed By: #### 2 4321-2 ####[facility]ATORYCLIA [id number] [place] [address] [place] Chloride [Moles/Vol] 100 mmol/L Normal 98-107 [facility] Comment on above: Order Comment: Speci men Type: BLOOD SPECIMENOrdering Facility: [facility] Address: [address] [place] [address] Performed By: #### 2 4321-2 ####[facility]ORATORYCLIA [id number] [place] [address] [place] CO2 [Moles/Vol] 28 mmol/L Normal 22-30 [facility] Comment on above: Order Comment: Speci men Type: BLOOD SPECIMENOrdering Facility: [facility] Address: [address] [place] [address] Performed By: #### 2 4321-2 ####[facility]ATORYCLIA [id number] [place] [address] [place] Creatinine [Mass/Vol] 0.80 mg/dL Normal 0.58-0.96 [facility] Comment on above: Order Comment: Speci men Type: BLOOD SPECIMENOrdering Facility: [facility] Address: [address] [place] [address] Performed By: #### 2 4321-2 ####[facility]ORATORYCLIA [id number] [place] [id number] [facility] Creatinine and Glomerular filtration rate.predicted panel (S/P/Bld) 81 mL/min/1.73m??? Normal >=60 [facility] Comment on above: Order Comment: Nery vidales Type: BLOOD SPECIMENOrdering Facility: [facility] Address: [address] [place] [address] Result Comment: Sienna mated Glomerular Filtration Rate [...] actual GFR. Performed By: #### 2 4321-2 ####[facility] [id number] [place] [address] [place] Glucose [Mass/Vol] 95 mg/dL Normal 74-99 [facility] Comment on above: Order Comment: Nery vidales Type: BLOOD SPECIMENOrdering Facility: [facility] Address: [address] [place] [address] Result Comment: The [place] Diabetes Association (ADA) provides guidance for cutoff [...] Standards of Medical Care in Diabetes 2016, [place] [employer]. Diabetes Care. 2016.39(Suppl 1). Performed By: #### 2 4321-2 ####[facility]ORATORYCLIA [id number] [place] [id number] [place] Potassium [Moles/Vol] 3.8 mmol/L Normal 3.7-5.1 [facility] Comment on above: Order Comment: Speci men Type: BLOOD SPECIMENOrdering Facility: [facility] Address: [address] [place] [address] Performed By: #### 2 4321-2 ####[facility]ATORYCLIA [id number] [address] [place] Sodium [Moles/Vol] 137 mmol/L Normal 136-144 [facility] Comment on above: Order Comment: Speci men Type: BLOOD SPECIMENOrdering Facility: [facility] Address: [address] [place] [address] Performed By: #### 2 4321-2 ####[facility]ORATORYCLIA [id number] [address] STATES OF [facility] Urea nitrogen [Mass/Vol] 10 mg/dL Normal 7-21 [facility] Comment on above: Order Comment: Speci men Type: BLOOD SPECIMENOrdering Facility: [facility] Address: [address] [place] [address] Performed By: #### 2 4321-2 ####[facility]ATORYCLIA [id number] [address] STATES OF [facility] CBC panel Auto (Bld)on 05-06 Erythrocyte distribution width (RBC) [Ratio] 14.2 % Normal 11.5-15.0 [facility] Comment on above: Order Comment: Speci men Type: BLOOD SPECIMENOrdering Facility: [facility] Address: [address] [place] [address] Performed By: #### 5 8410-2 ####[facility]ORATORYCLIA [id number] [address] Hematocrit (Bld) [Volume fraction] 32.3 % Low 36.0-46.0 [facility] Comment on above: Order Comment: Speci men Type: BLOOD SPECIMENOrdering Facility: [facility] Address: [address] [place] [address] Performed By: #### 5 8410-2 ####[facility]ORATORYCLIA [id number] [address] OF [facility] Hemoglobin (Bld) [Mass/Vol] 10.0 g/dL Low 11.5-15.5 [facility] Comment on above: Order Comment: Speci men Type: BLOOD SPECIMENOrdering Facility: [facility] Address: [address] [place] [address] Performed By: #### 5 8410-2 ####[facility]ORATORYCLIA [id number] [address] MCH (RBC) [Entitic mass] 29.2 pg Normal 26.0-34.0 [facility] Comment on above: Order Comment: Speci men Type: BLOOD SPECIMENOrdering Facility: [facility] Address: [address] [place] [address] Performed By: #### 5 8410-2 ####[facility]ORATORYCLIA [id number] [address] MCHC (RBC) [Mass/Vol] 31.0 g/dL Normal 30.5-36.0 [facility] Comment on above: Order Comment: Speci men Type: BLOOD SPECIMENOrdering Facility: [facility] Address: [address] [place] [address] Performed By: #### 5 8410-2 ####[facility]ORATORYCLIA [id number] [address] MCV (RBC) [Entitic vol] 94.2 fL Normal 80.0-100.0 [facility] Comment on above: Order Comment: Speci men Type: BLOOD SPECIMENOrdering Facility: [facility] Address: [address] [place] [address] Performed By: #### 5 8410-2 ####[facility]ORATORYCLIA [id number] [address] Nucleated RBC (Bld) [#/Vol] 10*3/uL Normal <0.01 [facility] Comment on above: Order Comment: Speci men Type: BLOOD SPECIMENOrdering Facility: [facility] Address: [address] [place] [address] Performed By: #### 5 8410-2 ####[facility] LABORATORYCLIA [id number] [address] [place] Platelet mean volume (Bld) [Entitic vol] 11.5 fL Normal 9.0-12.7 [facility] Comment on above: Order Comment: Speci men Type: BLOOD SPECIMENOrdering Facility: [facility] Address: [address] [place] [address] Performed By: #### 5 8410-2 ####[facility]ORATORYCLIA [id number] [address] [place] Platelets (Bld) [#/Vol] 214 10*3/uL Normal 150-400 [facility] Comment on above: Order Comment: Speci men Type: BLOOD SPECIMENOrdering Facility: [facility] Address: [address] [place] [address] Performed By: #### 5 8410-2 ####[facility] LABORATORYCLIA [id number] [place] [address] [place] RBC (Bld) [#/Vol] 3.43 10*6/uL Low 3.90-5.20 [facility] Comment on above: Order Comment: Speci men Type: BLOOD SPECIMENOrdering Facility: [facility] Address: [address] [place] [address] Performed By: #### 5 8410-2 ####[facility] LABORATORYCLIA [id number] [address] [place] WBC (Bld) [#/Vol] 8.79 10*3/uL Normal 3.70-11.00 [facility] Comment on above: Order Comment: Speci men Type: BLOOD SPECIMENOrdering Facility: [facility] Address: [address] [place] [address] Performed By: #### 5 8410-2 ####[facility] LABORATORYCLIA [id number] OF [facility] THERAPY NTon 05-06-2024 THERAPY NT HNO ID: [id number] Author: JAVY PERSAUD PTA Service: Physical Therapy Author Type: Start Up Specialist Type: Therapy (PT/OT/Speech/Resp) Filed: 05/06/2024 10:08 Note Text: -- Attestation signed by Aryan Valles, PT at 05/06/2024 1:04 PM I reviewed and agree with the assessment as documented above. 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 Patient pleasant and agreeable to PT session THERAPY DIAGNOSIS Muscle Weakness (generalized), Reduced mobility-other, General symptoms and signs-other TREATMENT INTERVENTIONS Therapeutic Exercise (79546), Therapeutic Activity (85769) Therapeutic Exercise (28521) Treatment Minutes: 13 $ Therapeutic Exercise (56762) Billed Units: 1 unit Patient completed BLE strengthening(ankle pump, quad set, gluteal set, heel slide LLE only, hip abd/add to neutral, short arc quad LLE only, SLR, hip adductor squeeze) x 10 reps with moderate amount of assist on RLE Patient set up with ice to surgical LE and elevated lower extremity as needed. Therapeutic Activity (42873) Treatment Minutes: 12 $ Therapeutic Activity (10041) Billed Units: 1 unit patient educated on [...] Dynamic Sta (more content not included)... Normal [facility] Basic metabolic 2000 panelon 05-05-2024 Anion gap [Moles/Vol] 10 mmol/L Normal 8-15 [facility] Comment on above: Order Comment: Speci men Type: BLOOD SPECIMENOrdering Facility: [facility] Address: [address] [place] [address] Performed By: #### 2 4321-2 ####[facility] LABORATORYCLIA [id number] [place] [address] [place] Calcium [Mass/Vol] 8.4 mg/dL Low 8.5-10.2 [facility] Comment on above: Order Comment: Speci men Type: BLOOD SPECIMENOrdering Facility: [facility] Address: [address] [place] [address] Performed By: #### 2 4321-2 ####[facility] LABORATORYCLIA [id number] [place] [address] [place] Chloride [Moles/Vol] 101 mmol/L Normal 98-107 [facility] Comment on above: Order Comment: Speci men Type: BLOOD SPECIMENOrdering Facility: [facility] Address: [address] [place] [address] Performed By: #### 2 4321-2 ####[facility] LABORATORYCLIA [id number] [place] [address] [place] CO2 [Moles/Vol] 27 mmol/L Normal 22-30 [facility] Comment on above: Order Comment: Speci men Type: BLOOD SPECIMENOrdering Facility: [facility] Address: [address] [place] [address] Performed By: #### 2 4321-2 ####[facility] LABORATORYCLIA [id number] [place] [id number] [facility] Creatinine [Mass/Vol] 0.90 mg/dL Normal 0.58-0.96 [facility] Comment on above: Order Comment: Nery vidales Type: BLOOD SPECIMENOrdering Facility: [facility] Address: [address] [place] [address] Performed By: #### 2 4321-2 ####[facility] LABORATORYCLIA [id number] [address] Creatinine and Glomerular filtration rate.predicted panel (S/P/Bld) 71 mL/min/1.73m??? Normal >=60 [facility] Comment on above: Order Comment: Nery vidales Type: BLOOD SPECIMENOrdering Facility: [facility] Address: [address] [place] [address] Result Comment: Sienna mated Glomerular Filtration Rate [...] actual GFR. Performed By: #### 2 4321-2 ####[facility] LABORATORYCLIA [id number] [address] OF [facility] Glucose [Mass/Vol] 95 mg/dL Normal 74-99 [facility] Comment on above: Order Comment: Nery vidales Type: BLOOD SPECIMENOrdering Facility: [facility] Address: [address] [place] [address] Result Comment: The [place] Diabetes Association (ADA) provides guidance for cutoff [...] Standards of Medical Care in Diabetes 2016, [place] [employer]. Diabetes Care. 2016.39(Suppl 1). Performed By: #### 2 4321-2 ####[facility] LABORATORYCLIA [id number] [address] OF [facility] Potassium [Moles/Vol] 4.4 mmol/L Normal 3.7-5.1 [facility] Comment on above: Order Comment: Speci men Type: BLOOD SPECIMENOrdering Facility: [facility] Address: [address] [place] [address] Performed By: #### 2 4321-2 ####[facility]ITALCLIA [id number] [address] STATES [facility] Sodium [Moles/Vol] 138 mmol/L Normal 136-144 [facility] Comment on above: Order Comment: Speci flash Type: BLOOD SPECIMENOrdering Facility: [facility] Address: [address] [place] [address] Performed By: #### 2 4321-2 ####[facility] LABORATORYCLIA [id number] [address] STATES [facility] Urea nitrogen [Mass/Vol] 8 mg/dL Normal 7-21 [facility] Comment on above: Order Comment: Speci men Type: BLOOD SPECIMENOrdering Facility: [facility] Address: [address] [place] [address] Performed By: #### 2 4321-2 ####[facility] LABORATORYCLIA [id number] [address] [place] CBC panel Auto (Bld)on 05-05 Erythrocyte distribution width (RBC) [Ratio] 14.2 % Normal 11.5-15.0 [facility] Comment on above: Order Comment: Speci men Type: BLOOD SPECIMENOrdering Facility: [facility] Address: [address] [place] [address] Performed By: #### 6 00-7 #### [facility] CLIA [id number] [address] Hematocrit (Bld) [Volume fraction] 30.4 % Low 36.0-46.0 [facility] Comment on above: Order Comment: Speci men Type: BLOOD SPECIMENOrdering Facility: [facility] Address: [address] [place] [address] Performed By: #### 6 -7 #### [facility] CLIA [id number] [address] Hemoglobin (Bld) [Mass/Vol] 9.9 g/dL Low 11.5-15.5 [facility] Comment on above: Order Comment: Speci men Type: BLOOD SPECIMENOrdering Facility: [facility] Address: [address] [place] [address] Performed By: #### 6 -7 #### [facility] CLIA [id number] [address] MCH (RBC) [Entitic mass] 30.1 pg Normal 26.0-34.0 [facility] Comment on above: Order Comment: Speci men Type: BLOOD SPECIMENOrdering Facility: [facility] Address: [address] [place] [address] Performed By: #### 6 -7 #### [facility] CLIA [id number] [address] [facility] MCHC (RBC) [Mass/Vol] 32.6 g/dL Normal 30.5-36.0 [facility] Comment on above: Order Comment: Speci men Type: BLOOD SPECIMENOrdering Facility: [facility] Address: [address] [place] [address] Performed By: #### 6 00-7 #### [facility] CLIA [id number] [address] MCV (RBC) [Entitic vol] 92.4 fL Normal 80.0-100.0 [facility] Comment on above: Order Comment: Speci men Type: BLOOD SPECIMENOrdering Facility: [facility] Address: [address] [place] [address] Performed By: #### 6 -7 #### [facility] CLIA [id number] [address] [place] Nucleated RBC (Bld) [#/Vol] 10*3/uL Normal <0.01 [facility] Comment on above: Order Comment: Speci men Type: BLOOD SPECIMENOrdering Facility: [facility] Address: [address] [place] [address] Performed By: #### 6 -7 #### [facility] CLIA [id number] [address] [place] Platelet mean volume (Bld) [Entitic vol] 10.7 fL Normal 9.0-12.7 [facility] Comment on above: Order Comment: Speci men Type: BLOOD SPECIMENOrdering Facility: [facility] Address: [address] [place] [address] Performed By: #### 6 -7 #### [facility] CLIA [id number] [address] [place] Platelets (Bld) [#/Vol] 193 10*3/uL Normal 150-400 [facility] Comment on above: Order Comment: Speci men Type: BLOOD SPECIMENOrdering Facility: [facility] Address: [address] [place] [address] Performed By: #### 6 -7 #### [facility] CLIA [id number] [address] [place] RBC (Bld) [#/Vol] 3.29 10*6/uL Low 3.90-5.20 [facility] Comment on above: Order Comment: Speci men Type: BLOOD SPECIMENOrdering Facility: [facility] Address: [address] [place] [address] Performed By: #### 6 00-7 #### [facility] CLIA [id number] [address] [place] [address] [place] WBC (Bld) [#/Vol] 10.83 10*3/uL Normal 3.70-11.00 [facility] Comment on above: Order Comment: Speci men Type: BLOOD SPECIMENOrdering Facility: [facility] Address: [address] [place] [address] Performed By: #### 6 00-7 #### [facility] CLIA [id number] 1 [place] [id number] [facility] [place] NURSING PROGon 05-05-2024 NURSING PROG HNO ID: [id number] Author: THEA ZHONG RN Service: Nursing Author Type: Registered Nurse Type: Nursing Progress Note Filed: 05/05/2024 12:42 Note Text: Patient temperature increased to 101 F, RLE with external fixator warm. Dr. Mil Carson notified. Ice pack applied, will continue to monitor, and no new interventions at this time. Normal 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 Baseline Cognition: Oriented to self, Oriented to place, Oriented to time, Oriented to situation SUBJECTIVE agreeable to session COGNITION Responsiveness: Alert Follows Commands: 2-step Commands Executive Function Deficits: Safety Awareness THERAPY DIAGNOSIS Reduced mobility-other, Decreased activities of daily living (ADL), Muscle Weakness (generalized), General symptoms and signs-other TREATMENT INTERVENTIONS Evaluation, Therapeutic Activity (42903) Timed Code Treatment (minutes): 8 Skilled Treatment Time (minutes): 23 $ Evaluation - Moderate (94393) Billed Units: 1 unit Therapeutic Activity (01435) Treatment Minutes: 8 $ Therapeutic Activity (20262) Billed Units: 1 unit TRAINING AND EDUCATION PROVIDED Bed Mobility, Discharge Planning, Disease Specific Education, Precautions/Restrictions, Role of Occupational Therapy, Safety/Judgment, Sitting Balance to Improve [place] with ADLs/Self-Care, Treatment Protocol, Positioning THERAPEUTIC SKILLS [...] May 05, 2024 TIME: 10:03 AM Normal [facility] Basic metabolic 2000 panelon 05-04-2024 Anion gap [Moles/Vol] 10 mmol/L Normal 8-15 [facility] Comment on above: Order Comment: Speci men Type: BLOOD SPECIMENOrdering Facility: [facility] Address: [address] [place] [address] Performed By: #### 6 00-7 #### [facility] CLIA [id number] [address] [place] [address] [place] Calcium [Mass/Vol] 8.4 mg/dL Low 8.5-10.2 [facility] Comment on above: Order Comment: Speci men Type: BLOOD SPECIMENOrdering Facility: [facility] Address: [address] [place] [address] Performed By: #### 6 00-7 #### [facility] CLIA [id number] [address] [place] [address] [place] Chloride [Moles/Vol] 100 mmol/L Normal 98-107 [facility] Comment on above: Order Comment: Speci men Type: BLOOD SPECIMENOrdering Facility: [facility] Address: [address] [place] [address] Performed By: #### 6 00-7 #### [facility] CLIA [id number] [address] [place] CO2 [Moles/Vol] 23 mmol/L Normal 22-30 [facility] Comment on above: Order Comment: Speci men Type: BLOOD SPECIMENOrdering Facility: [facility] Address: [address] [place] [address] Performed By: #### 6 00-7 #### [facility] CLIA [id number] [address] [place] Creatinine [Mass/Vol] 0.86 mg/dL Normal 0.58-0.96 [facility] Comment on above: Order Comment: Speci men Type: BLOOD SPECIMENOrdering Facility: [facility] Address: [address] [place] [address] Performed By: #### 6 00-7 #### [facility] CLIA [id number] [address] Creatinine and Glomerular filtration rate.predicted panel (S/P/Bld) 75 mL/min/1.73m??? Normal >=60 [facility] Comment on above: Order Comment: Speci men Type: BLOOD SPECIMENOrdering Facility: [facility] Address: [address] [place] [address] Result Comment: Sienna mated Glomerular Filtration Rate [...] GFR. Performed By: #### 6 00-7 #### [facility] CLIA [id number] [address] [place] Glucose [Mass/Vol] 161 mg/dL High 74-99 [facility] Comment on above: Order Comment: Speci men Type: BLOOD SPECIMENOrdering Facility: [facility] Address: [address] [place] [address] Result Comment: The [place] Diabetes Association (ADA) provides guidance for cutoff [...] Standards of Medical Care in Diabetes 2016, [place] [employer]. Diabetes Care. 2016.39(Suppl 1). Performed By: #### 6 00-7 #### [facility] CLIA [id number] [address] STATES OF [facility] Potassium [Moles/Vol] 3.9 mmol/L Normal 3.7-5.1 [facility] Comment on above: Order Comment: Speci men Type: BLOOD SPECIMENOrdering Facility: [facility] Address: [address] [place] [address] Performed By: #### 6 00-7 #### [facility] CLIA [id number] [address] [place] Sodium [Moles/Vol] 133 mmol/L Low 136-144 [facility] Comment on above: Order Comment: Speci men Type: BLOOD SPECIMENOrdering Facility: [facility] Address: [address] [place] [address] Performed By: #### 6 00-7 #### [facility] CLIA [id number] [address] STATES [facility] Urea nitrogen [Mass/Vol] 10 mg/dL Normal 7-21 [facility] Comment on above: Order Comment: Speci men Type: BLOOD SPECIMENOrdering Facility: [facility] Address: [facility] [place] [address] Performed By: #### 6 00-7 #### [facility] CLIA [id number] [address] [place] CBC panel Auto (Bld)on 05-04 Erythrocyte distribution width (RBC) [Ratio] 14.3 % Normal 11.5-15.0 [facility] Comment on above: Order Comment: Speci men Type: BLOOD SPECIMENOrdering Facility: [facility] Address: [address] [place] [address] Performed By: #### 5 8410-2 ####[facility]ORATORYCLIA [id number] [address] OF [facility] Hematocrit (Bld) [Volume fraction] 30.3 % Low 36.0-46.0 [facility] Comment on above: Order Comment: Speci men Type: BLOOD SPECIMENOrdering Facility: [facility] Address: [address] [place] [address] Performed By: #### 5 8410-2 ####[facility]ORATORYCLIA [id number] [address] [place] Hemoglobin (Bld) [Mass/Vol] 9.7 g/dL Low 11.5-15.5 [facility] Comment on above: Order Comment: Speci men Type: BLOOD SPECIMENOrdering Facility: [facility] Address: [address] [place] [address] Performed By: #### 5 8410-2 ####[facility]ORATORYCLIA [id number] [address] OF [facility] MCH (RBC) [Entitic mass] 29.4 pg Normal 26.0-34.0 [facility] Comment on above: Order Comment: Speci men Type: BLOOD SPECIMENOrdering Facility: [facility] Address: [address] [place] [address] Performed By: #### 5 8410-2 ####[facility] LABORATORYCLIA [id number] [address] [place] MCHC (RBC) [Mass/Vol] 32.0 g/dL Normal 30.5-36.0 [facility] Comment on above: Order Comment: Speci men Type: BLOOD SPECIMENOrdering Facility: [facility] Address: [address] [place] [address] Performed By: #### 5 8410-2 ####[facility]ORATORYCLIA [id number] [address] [place] MCV (RBC) [Entitic vol] 91.8 fL Normal 80.0-100.0 [facility] Comment on above: Order Comment: Speci men Type: BLOOD SPECIMENOrdering Facility: [facility] Address: [address] [place] [address] Performed By: #### 5 8410-2 ####[facility]ORATORYCLIA [id number] [address] [place] Nucleated RBC (Bld) [#/Vol] 10*3/uL Normal <0.01 [facility] Comment on above: Order Comment: Speci men Type: BLOOD SPECIMENOrdering Facility: [facility] Address: [address] [place] [address] Performed By: #### 5 8410-2 ####[facility]ORATORYCLIA [id number] [address] STATES OF [facility] Platelet mean volume (Bld) [Entitic vol] 10.8 fL Normal 9.0-12.7 [facility] Comment on above: Order Comment: Speci men Type: BLOOD SPECIMENOrdering Facility: [facility] Address: [address] [place] [address] Performed By: #### 5 8410-2 ####[facility] LABORATORYCLIA [id number] [address] [place] Platelets (Bld) [#/Vol] 209 10*3/uL Normal 150-400 [facility] Comment on above: Order Comment: Speci men Type: BLOOD SPECIMENOrdering Facility: [facility] Address: [address] [place] [address] Performed By: #### 5 8410-2 ####[facility]ORATORYCLIA [id number] [address] [place] RBC (Bld) [#/Vol] 3.30 10*6/uL Low 3.90-5.20 [facility] Comment on above: Order Comment: Speci men Type: BLOOD SPECIMENOrdering Facility: [facility] Address: [address] [place] [address] Performed By: #### 5 8410-2 ####[facility] LABORATORYCLIA [id number] [place] [address] [facility] WBC (Bld) [#/Vol] 14.08 10*3/uL High 3.70-11.00 [facility] Comment on above: Order Comment: Speci men Type: BLOOD SPECIMENOrdering Facility: [facility] Address: [address] [place] [address] Performed By: #### 5 8410-2 ####[facility]ORATORYCLIA [id number] [place] [address] [facility] CONSULT PROGon 05-04-2024 CONSULT PROG HNO ID: [id number] Author: KELLI DE LA TORRE MD Service: Hospital Medicine Author Type: Physician Type: Consult Progress Note Filed: 05/04/2024 14:26 Note Text: DEPARTMENT OF HOSPITAL MEDICINE CONSULT PROGRESS NOTE SERVICE DATE: 05/03/2024 Primary Care Physician: Mikayla Strange MD NIGHT AND WEEKEND [facility] COVER[facility]: From 7am - 7pm, please call primary team After 7pm, please call cross cover pager #[phone] Subjective INTERVAL HPI: 64 year old female [...] BID estradiol 3 g vaginal cream (ESTRACE) [id number] Applicator VAGINAL DAILY NaCl 0.9% iv flush [...] May 04, 2024 TIME: 2:20 PM etx [id number] Normal 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 Normal [facility] ANES POSTPROC EVALon 024 ANES POSTPROC EVAL HNO ID: [id number] Author: TAI NEGRON MD Service: Anesthesiology Author Type: Physician Type: Anesthesia Postprocedure Evaluation Filed: 05/03/2024 17:51 Note Text: POST ANESTHESIA EVALUATION NOTE : 1960 Procedure Summary Date: 05/03/24 Room / Location: [place] OR 07 / [place] Anesthesia Start: 839 Anesthesia Stop: 1010 Procedure: APPLICATION EXTERNAL FIXATOR [...] May 03, 2024 TIME: 5:51 PM CSN: [id number] Normal [facility] ANES PRE-OPon 05-03-2024 ANES PRE-OP HNO ID: [id number] Author: SYDNI BENDER MD Service: Anesthesiology Author Type: Physician Type: Anesthesia Preprocedure Evaluation Filed: 05/03/2024 07:58 Note Text: ANESTHESIOLOGY DAY OF SURGERY NOTE : 1960 Procedure Information Date/Time: 05/03/24850 Procedure: APPLICATION EXTERNAL FIXATOR TIBIA (Right: Knee) Location: [place] Surgeons: Sydni Waggoner MD Estimated [...] without status migrainosus Other (+) Rheumatoid arthritis ([facility]) I - PHYSICAL EVALUATION AIRWAY Patient intubated: [...] and consent discussed: yes. Patient / Responsible Republican agrees to proceed: yes Patient / Surrogate [...] Hold] estradiol 3 g vaginal cream (ESTRACE) [id number] Applicator VAGINAL DAILY [Transfer Hold] NaCl 0.9% [...] tablet three (more content not included)... Normal [facility] BRIEF OP NOTon 05-03-2024 BRIEF OP NOT HNO ID: [id number] Author: SAHARA ROYAL MD Service: Orthopaedic Surgery Author Type: Resident Type: Brief Op Note Filed: 05/03/2024 10:32 Note Text: Orthopaedic Surgery Brief Operative Note Log ID: [id number] Surgery/Procedure Date: 05/03/2024 Incision/Procedure Start Time: 9:01 AM Incision Close/Procedure End Time: 10:00 AM Surgeon(s)/Proceduralist(s ) and External Relations Director(s): Surgeons and Role: * Sydni Waggoner MD - Primary * Sahara Royal MD - Resident - Assisting No Additional Staff Procedure(s): Procedure(s) (LRB): APPLICATION EXTERNAL FIXATOR TIBIA (Right) Anesthesia: General Pre-Op/Pre-Procedure Diagnosis: Periprosthetic fracture of knee [M97.9XXA] Post-Op/Post-Procedure Diagnosis: Periprosthetic fracture of knee [M97.9XXA] Implant: Implant Name Type Inv. Item Serial No. 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 LRB No. Used Action PIN CLAMP 5 HOLE - [id number] Clamp PIN CLAMP 5 HOLE [employer] 1 PIN CLAMP 5 HOLE - [id number] Clamp PIN CLAMP 5 HOLE [employer] 1 APEX PIN BONE [id number] - [id number] Pin APEX PIN BONE [id number] [employer] 1 APEX PIN BONE [id number] - [id number] Pin APEX PIN BONE [id number] [employer] 1 BIT 3.2MM MCLAIN 200MM DRILL - [id number] Bit BIT 3.2MM MCLAIN 200MM DRILL [employer] [id number] Right 1 Non-Implant PIN APEX RUBEN II 5MM STAINLESS STEEL 180MM 50MM HALF SELF TAP SELF - [id number] Fixator PIN APEX RUBEN II 5MM STAINLESS STEEL 180MM 50MM HALF SELF TAP SELF [employer] Right 2 Non-Implant MAT RUBEN 3 11MM VECTRAN CARBON 400MM EXTERNAL FIXATION MRI - [id number] Mat MAT RUBEN 3 11MM VECTRAN CARBON 400MM EXTERNAL FIXATION MRI [employer] Right 2 Non-Implant MAT EXFIX 11MM 15CM [facility] 4922-8-150 Mat MATILDA Right 1 Non-Implant COUPLING 5/8/11MM EXTERNAL FIXATION MAT TO MAT - [id number] Implant COUPLING 5/8/11MM EXTERNAL FIXATION MAT TO [...] Orthopedic Surgery Resident 05/03/24 10:30 AM Normal [facility] Basic metabolic 2000 panelon 05-03-2024 Anion gap [Moles/Vol] 10 mmol/L Normal 8-15 [facility] Comment on above: Order Comment: Speci men Type: BLOOD SPECIMENOrdering Facility: [facility] Address: [address] [place] [address] Performed By: #### 2 4321-2 ####[facility] LABORATORYCLIA [id number] [place] [address] [place] Calcium [Mass/Vol] 8.3 mg/dL Low 8.5-10.2 [facility] Comment on above: Order Comment: Speci men Type: BLOOD SPECIMENOrdering Facility: [facility] Address: [address] [place] [address] Performed By: #### 2 4321-2 ####[facility] LABORATORYCLIA [id number] [place] [address] [place] Chloride [Moles/Vol] 101 mmol/L Normal 98-107 [facility] Comment on above: Order Comment: Speci men Type: BLOOD SPECIMENOrdering Facility: [facility] Address: [address] [place] [address] Performed By: #### 2 4321-2 ####[facility] LABORATORYCLIA [id number] [place] [id number] [place] CO2 [Moles/Vol] 25 mmol/L Normal 22-30 [facility] Comment on above: Order Comment: Speci men Type: BLOOD SPECIMENOrdering Facility: [facility] Address: [address] [place] [address] Performed By: #### 2 4321-2 ####[facility] LABORATORYCLIA [id number] [address] [place] Creatinine [Mass/Vol] 1.01 mg/dL High 0.58-0.96 [facility] Comment on above: Order Comment: Speci men Type: BLOOD SPECIMENOrdering Facility: [facility] Address: [address] [place] [address] Performed By: #### 2 4321-2 ####[facility] LABORATORYCLIA [id number] [address] Creatinine and Glomerular filtration rate.predicted panel (S/P/Bld) 62 mL/min/1.73m??? Normal >=60 [facility] Comment on above: Order Comment: Speci men Type: BLOOD SPECIMENOrdering Facility: [facility] Address: [address] [place] [address] Result Comment: Sienna mated Glomerular Filtration Rate [...] actual GFR. Performed By: #### 2 4321-2 ####[facility] LABORATORYCLIA [id number] [place] [address] [place] Glucose [Mass/Vol] 107 mg/dL High 74-99 [facility] Comment on above: Order Comment: Cji flash Type: BLOOD SPECIMENOrdering Facility: [facility] Address: [address] [place] [address] Result Comment: The [place] Diabetes Association (ADA) provides guidance for cutoff [...] Standards of Medical Care in Diabetes 2016, [place] [employer]. Diabetes Care. 2016.39(Suppl 1). Performed By: #### 2 4321-2 ####[facility] LABORATORYCLIA [id number] [place] [address] [place] Potassium [Moles/Vol] 4.3 mmol/L Normal 3.7-5.1 [facility] Comment on above: Order Comment: Nery vidales Type: BLOOD SPECIMENOrdering Facility: [facility] Address: [address] [place] [address] Performed By: #### 2 4321-2 ####[facility] LABORATORYCLIA [id number] [place] [id number] [place] Sodium [Moles/Vol] 136 mmol/L Normal 136-144 [facility] Comment on above: Order Comment: Nery flash Type: BLOOD SPECIMENOrdering Facility: [facility] Address: [address] [place] [address] Performed By: #### 2 4321-2 ####[facility] LABORATORYCLIA [id number] [address] STATES OF [facility] Urea nitrogen [Mass/Vol] 11 mg/dL Normal 7-21 [facility] Comment on above: Order Comment: Speci men Type: BLOOD SPECIMENOrdering Facility: [facility] Address: [address] [place] [address] Performed By: #### 2 4321-2 ####[facility] LABORATORYCLIA [id number] [address] STATES OF [facility] CBC panel Auto (Bld)on 05-03 Erythrocyte distribution width (RBC) [Ratio] 14.6 % Normal 11.5-15.0 [facility] Comment on above: Order Comment: Speci men Type: BLOOD SPECIMENOrdering Facility: [facility] Address: [address] [place] [address] Performed By: #### 5 8410-2 ####[facility] LABORATORYCLIA [id number] [address] STATES OF [facility] Hematocrit (Bld) [Volume fraction] 33.2 % Low 36.0-46.0 [facility] Comment on above: Order Comment: Speci men Type: BLOOD SPECIMENOrdering Facility: [facility] Address: [address] [place] [address] Performed By: #### 5 8410-2 ####[facility] LABORATORYCLIA [id number] [address] [place] Hemoglobin (Bld) [Mass/Vol] 10.7 g/dL Low 11.5-15.5 [facility] Comment on above: Order Comment: Speci men Type: BLOOD SPECIMENOrdering Facility: [facility] Address: [address] [place] [address] Performed By: #### 5 8410-2 ####[facility] LABORATORYCLIA [id number] [address] [place] MCH (RBC) [Entitic mass] 29.5 pg Normal 26.0-34.0 [facility] Comment on above: Order Comment: Speci men Type: BLOOD SPECIMENOrdering Facility: [facility] Address: [address] [place] [address] Performed By: #### 5 8410-2 ####[facility] LABORATORYCLIA [id number] [address] STATES [facility] MCHC (RBC) [Mass/Vol] 32.2 g/dL Normal 30.5-36.0 [facility] Comment on above: Order Comment: Speci men Type: BLOOD SPECIMENOrdering Facility: [facility] Address: [address] [place] [address] Performed By: #### 5 8410-2 ####[facility] LABORATORYCLIA [id number] [address] OF [facility] MCV (RBC) [Entitic vol] 91.5 fL Normal 80.0-100.0 [facility] Comment on above: Order Comment: Speci men Type: BLOOD SPECIMENOrdering Facility: [facility] Address: [address] [place] [address] Performed By: #### 5 8410-2 ####[facility] LABORATORYCLIA [id number] [address] Nucleated RBC (Bld) [#/Vol] 10*3/uL Normal <0.01 [facility] Comment on above: Order Comment: Speci men Type: BLOOD SPECIMENOrdering Facility: [facility] Address: [address] [place] [address] Performed By: #### 5 8410-2 ####[facility] LABORATORYCLIA [id number] [address] STATES OF [facility] Platelet mean volume (Bld) [Entitic vol] 10.7 fL Normal 9.0-12.7 [facility] Comment on above: Order Comment: Speci men Type: BLOOD SPECIMENOrdering Facility: [facility] Address: [address] [place] [address] Performed By: #### 5 8410-2 ####[facility] LABORATORYCLIA [id number] [address] [place] Platelets (Bld) [#/Vol] 211 10*3/uL Normal 150-400 [facility] Comment on above: Order Comment: Speci men Type: BLOOD SPECIMENOrdering Facility: [facility] Address: [address] [place] [address] Performed By: #### 5 8410-2 ####[facility] LABORATORYCLIA [id number] [address] [place] RBC (Bld) [#/Vol] 3.63 10*6/uL Low 3.90-5.20 [facility] Comment on above: Order Comment: Speci men Type: BLOOD SPECIMENOrdering Facility: [facility] Address: [address] [place] [address] Performed By: #### 5 8410-2 ####[facility] LABORATORYCLIA [id number] [address] STATES OF [facility] WBC (Bld) [#/Vol] 8.87 10*3/uL Normal 3.70-11.00 [facility] Comment on above: Order Comment: Speci men Type: BLOOD SPECIMENOrdering Facility: [facility] Address: [address] [place] [address] Performed By: #### 5 8410-2 ####[facility] LABORATORYCLIA [id number] [address] CONSULT PROGon 05-03-2024 CONSULT PROG HNO ID: [id number] Author: KELLI DE LA TORRE MD Service: Hospital Medicine Author Type: Physician Type: Consult Progress Note Filed: 05/04/2024 14:26 Note Text: DEPARTMENT OF HOSPITAL MEDICINE CONSULT PROGRESS NOTE SERVICE DATE: 05/03/2024 Primary Care Physician: Mikayla Strange MD NIGHT AND WEEKEND [facility] COVER[facility]: From 7am - 7pm, please call primary team After 7pm, please call cross cover pager #[phone] Subjective INTERVAL HPI: 64 year old female [...] BID estradiol 3 g vaginal cream (ESTRACE) 0.95423309470952855 Applicator VAGINAL DAILY NaCl 0.9% iv flush [...] May 03, 2024 TIME: 4:20 PM etx [id number] [facility] NURSING PROGon 05-03-2024 NURSING PROG HNO ID: [id number] Author: ROSEMARY CONWAY RN Service: Nursing Author Type: Registered Nurse Type: Nursing Progress Note Filed: 05/03/2024 08:26 Note Text: Pt. had nausea over last week until Monday, just not feeling good, symptoms have totally resolved. Never had a fever. Anesthesia notified and aware. [facility] OPERATIVE NOon 05-03-2024 OPERATIVE NO HNO ID: [id number] Author: SYDNI WAGGONER MD Service: Orthopaedic Surgery Author Type: Physician Type: Operative Report Filed: 05/04/2024 09:38 Note Text: OPERATIVE/PROCEDURE REPORT LOG ID: [id number] SURGERY/PROCEDURE DATE: 05/03/2024 INCISION/PROCEDURE START TIME: 9:01 AM INCISION CLOSE/PROCEDURE END TIME: 10:00 AM SURGEON(S)/PROCEDURALIST(S ) AND FREQUENCY CHECKER(S): Surgeons and Role: * Sydni Waggoner MD [...] Bicondylar with or without Internal Fixation (CPT 01940) 2) Application of a Right Lower Extremity Knee-Spanning Uniplanar External Fixator (CPT 44730) 3) Closed Treatment of the Right Patella Fracture without Manipulation (CPT 85147) ANESTHESIA: 1) General ANTIBIOTICS: 1) Ancef 2g IV ESTIMATED BLOOD LOSS: 1) 25 CC FLUIDS: 1) Per Anesthesia Documentation SPECIMENS: 1) None CLINICAL INDICATIONS: 64 year old female was transferred to [facility] on 05/02/2024 for management of a complex [...] time out was conducted in accordance with [facility] policy. After all members of the surgical team agreed upon the details of the procedure, two 5.0 mm Schanz pins were inserted from dqwppcjwhxjjf-ke-dasygvjtk dial in the right femur through stab incisions to the distal thigh. The pin depths were confirmed on orthogonal radiographs to the Schanz pins. Two 5.0 mm Schanz pins were inserted into the middle-third of the right tibia just medial to the tibial crest from peqgsbbq-xn-hkmltrplg through stab incisions to the lower leg. [...] the two (more content not included)... Normal [facility] XR KNEE 2V AP/LAT RTon 05-03 XR KNEE 2V AP/LAT RT * * *Final Report* * * DATE OF EXAM: May 03 2024 10:01AM [facility] 5207 - XR KNEE 2V AP/LAT RT [...] minute 44 seconds Cumulative dose: 5.385 mGy [facility] Winder: PSCYanira Transcribe Date/Time: May 03 2024 10:10A Dictated by : UMA ARORA MD This examination was interpreted and the report reviewed and electronically signed by: UMA ARORA MD on May 03 2024 10:11AM EST [id number] Normal [facility] Basic metabolic 2000 panelon 05-02-2024 Anion gap [Moles/Vol] 13 mmol/L Normal 8-15 [facility] Comment on above: Order Comment: Speci men Type: BLOOD SPECIMENOrdering Facility: [facility] Address: [address] [place] [address] Performed By: #### 6 462-6 #### [facility] CLIA [id number] [address] [place] [address] [place] Calcium [Mass/Vol] 8.8 mg/dL Normal 8.5-10.2 [facility] Comment on above: Order Comment: Speci men Type: BLOOD SPECIMENOrdering Facility: [facility] Address: [address] [place] [address] Performed By: #### 6 462-6 #### [facility] CLIA [id number] [address] [place] [address] [place] Chloride [Moles/Vol] 102 mmol/L Normal 98-107 [facility] Comment on above: Order Comment: Speci men Type: BLOOD SPECIMENOrdering Facility: [facility] Address: [address] [place] [address] Performed By: #### 6 462-6 #### [facility] CLIA [id number] [address] [place] CO2 [Moles/Vol] 22 mmol/L Normal 22-30 [facility] Comment on above: Order Comment: Speci men Type: BLOOD SPECIMENOrdering Facility: [facility] Address: [address] [place] [address] Performed By: #### 6 462-6 #### [facility] CLIA [id number] [address] [place] Creatinine [Mass/Vol] 1.07 mg/dL High 0.58-0.96 [facility] Comment on above: Order Comment: Speci men Type: BLOOD SPECIMENOrdering Facility: [facility] Address: [address] [place] [address] Performed By: #### 6 462-6 #### [facility] CLIA [id number] [address] [place] Creatinine and Glomerular filtration rate.predicted panel (S/P/Bld) 57 mL/min/1.73m??? Low >=60 [facility] Comment on above: Order Comment: Nery vidales Type: BLOOD SPECIMENOrdering Facility: [facility] Address: [address] [place] [address] Result Comment: Sienna mated Glomerular Filtration Rate [...] GFR. Performed By: #### 6 462-6 #### [facility] CLIA [id number] [address] [place] [address] [place] Glucose [Mass/Vol] 104 mg/dL High 74-99 [facility] Comment on above: Order Comment: Nery vidales Type: BLOOD SPECIMENOrdering Facility: [facility] Address: [address] [place] [address] Result Comment: The [place] Diabetes [employer] (ADA) provides guidance for cutoff [...] Standards of Medical Care in Diabetes 2016, [place] [employer]. Diabetes Care. 2016.39(Suppl 1). Performed By: #### 6 462-6 #### [facility] CLIA [id number] [address] [place] [address] [place] Potassium [Moles/Vol] 4.0 mmol/L Normal 3.7-5.1 [facility] Comment on above: Order Comment: Nery vidales Type: BLOOD SPECIMENOrdering Facility: [facility] Address: [address] [place] [address] Performed By: #### 6 462-6 #### [facility] CLIA [id number] [address] STATES OF [facility] Sodium [Moles/Vol] 137 mmol/L Normal 136-144 [facility] Comment on above: Order Comment: Speci men Type: BLOOD SPECIMENOrdering Facility: [facility] Address: [address] [place] [address] Performed By: #### 6 462-6 #### [facility] CLIA [id number] [address] [place] Urea nitrogen [Mass/Vol] 12 mg/dL Normal 7-21 [facility] Comment on above: Order Comment: Speci men Type: BLOOD SPECIMENOrdering Facility: [facility] Address: [address] [place] [address] Performed By: #### 6 462-6 #### [facility] CLIA [id number] [address] STATES OF [facility] Bedside Glucoseon 05-02-2024 FINGERSTICK GLU 81 mg/dL Normal 74-106 [facility] Comment on above: Result Comment: PREM PETE OF PATIENT CARE PER NURSING PROTOCOL Performed By: #### L 500.4050, L100.0100 #### [facility] [address] [facility] [place], [address] CBC panel Auto (Bld)on 05-02 Erythrocyte distribution width (RBC) [Ratio] 14.5 % Normal 11.5-15.0 [facility] Comment on above: Order Comment: Speci men Type: BLOOD SPECIMENOrdering Facility: [facility] Address: [address] [place] [address] Performed By: #### 5 8410-2 ####[facility]ORATORYCLIA [id number] [address] Hematocrit (Bld) [Volume fraction] 34.5 % Low 36.0-46.0 [facility] Comment on above: Order Comment: Speci men Type: BLOOD SPECIMENOrdering Facility: [facility] Address: [address] [place] [address] Performed By: #### 5 8410-2 ####[facility] LABORATORYCLIA [id number] [address] Hemoglobin (Bld) [Mass/Vol] 11.4 g/dL Low 11.5-15.5 [facility] Comment on above: Order Comment: Speci men Type: BLOOD SPECIMENOrdering Facility: [facility] Address: [address] [place] [address] Performed By: #### 5 8410-2 ####[facility] LABORATORYCLIA [id number] [address] OF [facility] MCH (RBC) [Entitic mass] 29.6 pg Normal 26.0-34.0 [facility] Comment on above: Order Comment: Speci men Type: BLOOD SPECIMENOrdering Facility: [facility] Address: [address] [place] [address] Performed By: #### 5 8410-2 ####[facility] LABORATORYCLIA [id number] [address] MCHC (RBC) [Mass/Vol] 33.0 g/dL Normal 30.5-36.0 [facility] Comment on above: Order Comment: Speci men Type: BLOOD SPECIMENOrdering Facility: [facility] Address: [address] [place] [address] Performed By: #### 5 8410-2 ####[facility] LABORATORYCLIA [id number] [address] STATES OF [facility] MCV (RBC) [Entitic vol] 89.6 fL Normal 80.0-100.0 [facility] Comment on above: Order Comment: Speci men Type: BLOOD SPECIMENOrdering Facility: [facility] Address: [address] [place] [address] Performed By: #### 5 8410-2 ####[facility] LABORATORYCLIA [id number] [address] [place] Nucleated RBC (Bld) [#/Vol] 10*3/uL Normal <0.01 [facility] Comment on above: Order Comment: Speci men Type: BLOOD SPECIMENOrdering Facility: [facility] Address: [address] [place] [address] Performed By: #### 5 8410-2 ####[facility] LABORATORYCLIA [id number] [place] [address] [place] Platelet mean volume (Bld) [Entitic vol] 10.5 fL Normal 9.0-12.7 [facility] Comment on above: Order Comment: Speci men Type: BLOOD SPECIMENOrdering Facility: [facility] Address: [address] [place] [address] Performed By: #### 5 8410-2 ####[facility] LABORATORYCLIA [id number] [address] [place] Platelets (Bld) [#/Vol] 228 10*3/uL Normal 150-400 [facility] Comment on above: Order Comment: Speci men Type: BLOOD SPECIMENOrdering Facility: [facility] Address: [address] [place] [address] Performed By: #### 5 8410-2 ####[facility] LABORATORYCLIA [id number] [place] [address] [place] RBC (Bld) [#/Vol] 3.85 10*6/uL Low 3.90-5.20 [facility] Comment on above: Order Comment: Speci men Type: BLOOD SPECIMENOrdering Facility: [facility] Address: [address] [place] [address] Performed By: #### 5 8410-2 ####[facility] LABORATORYCLIA [id number] [place] [address] [place] WBC (Bld) [#/Vol] 10.03 10*3/uL Normal 3.70-11.00 [facility] Comment on above: Order Comment: Speci men Type: BLOOD SPECIMENOrdering Facility: [facility] Address: [address] [place] [address] Performed By: #### 5 8410-2 ####[facility] LABORATORYCLIA [id number] [address] CONFIRM BLOOD TYPEon 024 ABO A Normal [facility] Comment on above: Order Comment: Speci men Type: BLOOD SPECIMEN [facility] Address: [address] [place] [address] Performed By: #### C ONABO #### [facility] CLIA [id number] [address] Rh Nom (Bld) Positive Normal [facility] Comment on above: Order Comment: Speci men Type: BLOOD SPECIMEN [facility] Address: [address] [place] [address] Performed By: #### C ONABO #### [facility] CLIA [id number] [address] CONSULTon 05-02-2024 CONSULT HNO ID: [id number] Author: OVI LOMELI DO Service: Hospital Medicine Author Type: Physician Type: Consults Filed: 05/02/2024 18:00 Note Text: DEPARTMENT OF HOSPITAL MEDICINE INITIAL CONSULT SERVICE DATE: 05/02/2024 SERVICE TIME: 5:50 PM Primary Care Physician: Mikayla Strange MD NIGHT AND WEEKEND COVERAGE: [place] COVERAGE: From 7am - 7pm, please call sound After 7pm, please call cross cover pager #[phone] REASON FOR CONSULT: medical management REQUESTING PHYSICIAN: [...] , Rfl (more content not included)... Normal [facility] CONSULT HNO ID: [id number] Author: DAFNE LEVINE MD Service: Pain Management [...] inability to ambulate. Patient was seen at [place] [facility] and transferred to [facility] for surgical intervention of right periprosthetic proximal tibia fracture Patient goes to Dr. Ward in [place] for pain management since 2012. Home pain [...] 1502 estradiol 3 g vaginal cream (ESTRACE) 0.96678388563607437 Applicator VAGINAL DAILY Nate Acosta MD lisinopril [...] the tongue ever (more content not included)... Normal [facility] ED NOTEon 05-02-2024 ED NOTE HNO ID: [id number] Author: RUSS YANG RN Service: Emergency Medicine Author Type: Registered Nurse Type: ED Notes Filed: 05/02/2024 13:00 Note Text: Report given to JOURDAN Arroyo in presurg. Pt updated on plan of care. Normal [facility] ED NOTE HNO ID: [id number] Author: GA WAKEFIELD DO Service: Emergency Medicine [...] pain control. Orthopedics has been consulted. Normal [facility] ED PROV NOTEon 05-02-2024 ED PROV NOTE HNO ID: [id number] Author: GA WAKEFIELD DO Service: Emergency Medicine [...] arrives via EMS as a transfer from [place] for a surgical cx. Pt states she [...] the emergency department as a transfer from [place] for Ortho consult for right sided periprosthetic Proximal tibial and right patellar fracture. Patient states she had a knee replacement about 10 years ago at [facility]. Earlier today, she was chasing a stray [...] Extraocular move (more content not included)... Normal [facility] HISTORY PHYSICALon HISTORY PHYSICAL HNO ID: [id number] Author: SYDNI WAGGONER MD Service: Orthopaedic Surgery Author Type: Physician Type: H&P Filed: 05/02/2024 22:07 Note Text: Orthopaedic Trauma Surgery Attending Addendum Reviewed resident History and Physical. The patient was personally seen and examined on 05/02/2024. Agree with resident history, physical examination, image interpretation, assessment and plan unless otherwise noted. 64 year old female was transferred to [facility] on 05/02/2024 for management of a complex [...] inability to ambulate following this. Presented to [place] ED and was transferred to [facility] for orthopedic evaluation. Patient had her right total knee done in [place] by a Dr. Campos 10 years ago. [...] on 01/04 (more content not included)... Normal [facility] PT panel Coag (PPP)on 2023 INR Coag (PPP) [Relative time] 1.1 {INR} Normal 0.9-1.3 [facility] Comment on above: Order Comment: Speci men Type: BLOOD SPECIMENOrdering Facility: [facility] Address: [address] [place] [address] Result Comment: Ruma min K Antagonist (VKA) Therapeutic Range: INR 2 to 3 (Target INR of 2.5) Note: For patients treated with VKA drugs, such as warfarin, the [place] [employer] 2012 Guideline recommends [...] GH, et al. Chest 2012, 141:7S-47S Garland JACOBSEN, et al. [facility] 2017, 70: 252-289 Performed By: #### 3 4528-0, 70095-2 ####[facility] LABORATORYCLIA [id number] [address] PT Coag (PPP) [Time] 11.7 s Normal 9.7-13.0 [facility] [facility] Comment on above: Order Comment: Speci men Type: BLOOD SPECIMENOrdering Facility: [facility] Address: [address] [place] [address] Performed By: #### 3 4528-0, 14144-5 ####[facility] LABORATORYCLIA [id number] [address] TYPE + SCREENon 05-02-2024 ABO A Normal [facility] Comment on above: Order Comment: Speci men Type: BLOOD SPECIMEN [facility] Address: [address] [place] [address] Performed By: #### T SCR #### [facility] CLIA [id number] [address] Rh Nom (Bld) Positive Normal [facility] Comment on above: Order Comment: Speci men Type: BLOOD SPECIMEN [facility] Address: [address] [place] [address] Performed By: #### T SCR #### [facility] CLIA [id number] [address] TYPE AND SCREEN EXPIRATION 05/05/2024 23:59 Normal [facility] Comment on above: Order Comment: Speci men Type: BLOOD SPECIMEN [facility] Address: [address] [place] [address] Performed By: #### T SCR #### [facility] CLIA [id number] [address] [place] aPTT PPPon 05-02-2024 aPTT Coag (PPP) [Time] 32.9 s High 23.0-32.4 [facility] Comment on above: Order Comment: Speci men Type: BLOOD SPECIMENOrdering Facility: [facility] Address: [address] [place] [address] Performed By: #### 3 4528-0, 92627-8 ####[facility] LABORATORYCLIA [id number] [place] [address] [place] Bedside Glucoseon 05-01-2024 FINGERSTICK GLU 92 mg/dL Normal 74-106 [facility] Comment on above: Result Comment: PREM FREEMAN OF PATIENT CARE PER NURSING PROTOCOL Performed By: #### L 300.3900, L501.5425, L503.6620, L300.4310, L300.8000, L500.2500, L503.6005, L100.0100 #### [facility] [address] [place], [address] Emergency Department Summary on 05-01-2024 Emergency Department Summary [facility] Medical Records Department [address] [place] [address] Emergency Department Summary 05/01/24 MR#: [id number] Acct: [id number] Name: ZACKERY NUNEZ CHARLEY Rep #: [id number] : 1960 64 From: Eliel Elise DO [...] Negative for Weakness or Loss of Funtion [facility] Medical History Wears glasses Post-menopausal Marijuana [...] 05/01/24 20 (more content not included)... Normal [facility] Knee 1 or 2 Viewson 05-01-20 Knee 1 or 2 Views [facility] Imaging Services [address] [place], [place] [address] Knee 1 or 2 Views MR#: [id number] Acct: [id number] Name: ZACKERY NUNEZ CHARLEY Rep #: [id number] : 1960 F 64 From: Miki araya DO PCP: Dr. Mikayla Strange MD Status: REG ER Study: Knee 1 or 2 Views Date of Exam: 05/01/24 Exam# [id number] Ordering Dr: Eliel Elise DO [id number] EXAM: XR RIGHT KNEE, 1 OR 2 [...] Eliel Elise DO; Dr. Mikayla Strange MD [facility] [place]: Signed Normal [facility] Tibia Fibula 2 Viewson 05-01 Tibia Fibula 2 Views [facility] Imaging Services [address] [place] [address] Tibia Fibula 2 Views MR#: [id number] Acct: [id number] Name: ZACKERY NUNEZ Rep #: [id number] : 1960 F 64 From: Miki araya DO PCP: Dr. Mikayla Strange MD Status: REG ER Study: Tibia Fibula 2 Views Date of Exam: 05/01/24 Exam# [id number] Ordering Dr: Eliel Elise DO [id number] EXAM: XR RIGHT TIBIA AND FIBULA, 2 [...] Eliel Elise DO; Dr. Mikayla Strange MD [facility] [place]: Signed [facility] Procedure[facility] n 04-27-2024 [facility] LAB TEST COMMENT Normal [facility] Comment on above: Order Comment: [id number] OXYCODONE URINE Result Comment: TEST S RESULT UNITS REFERENCE INTERVAL LAB Oxycodone/Oxymorphone Confirm . 01 Oxycodone/Oxymorph Positive Uzyrpv=307 Test includes Oxycodone and Oxymorphone Oxycodone Positive Oxycodone Conf, MS, UR 1247 ng/mL Hqwysg=206 01 Oxycodone detected; this finding is consistent with use of medications that include Oxycontin, Percodan, Percocet, Tylox, or generic formulations. Drugs listed are ambulatory service representative of common sources of the compound detected and are not intended to include all possible sources. Oxymorphone Positive Oxymorphone Conf, MS, UR 392 ng/mL Shzveb=223 01 Oxymorphone detected; this finding is consistent with use of medications that include Numorphan, Opana, or drugs containing Oxycodone, or generic formulations. Drugs listed are ambulatory service representative of common sources of the compound detected and are not intended to include all possible sources. Please Note: 01 Drug test results should be interpreted in the context of clinical information. Patient metabolic variables, specific drug chemistry, and specimen characteristics can affect test outcome. Technical consultation is available if a test result is inconsistent with an expected outcome. Email: [email or web address] Drug brands, if listed herein, are trademarks of their respective owners. Performing lab: [facility] [address] [place] [address] Dir: Loli Hassan, PhD For inquiries, the physician may contact Lab: [phone] Performed By: #### L 500.4050, L100.0100 #### [facility] [address] [place], [place], [id number] Miscellaneous Lab Procedure 2on 04-27-2024 [facility] LAB TEST 2 COMMENT Normal [facility] Comment on above: Order Comment: [id number] BUPRENOEPHINE URINE Result Comment: TEST S RESULT UNITS REFERENCE INTERVAL LAB --- Buprenorphine, Urine Buprenorphine Negative Cutoff=10 Please Note: 01 Confirmation performed by Mass Spectrometry Performing lab: [facility] [address] [place] [address] Dir: Loli Hassan, PhD For inquiries, the physician may contact Lab: [phone] Performed By: #### L 500.4050, L100.0100 #### [facility] [address] [place], [address] CBC W/Diff, Automatedon 10- PLT EST ADEQUATE Normal ADEQ [facility] Comment on above: Performed By: #### L 300.3900, L501.5425, L503.6620, L300.4310, L300.8000, L500.2500, L503.6005, L100.0100 #### [facility] [address] [place], [address] Comprehensive Metabolic Prof ilon 04-18-2024 Albumin [Mass/Vol] 3.8 g/dL Normal 3.2-5.0 [facility] Comment on above: Performed By: #### L 300.3900, L501.5425, L503.6620, L300.4310, L300.8000, L500.2500, L503.6005, L100.0100 #### [facility] [address] [place], [address] Albumin/Globulin [Mass ratio] 1.1 {ratio} Normal 0.9-2.4 [facility] Comment on above: Performed By: #### L 300.3900, L501.5425, L503.6620, L300.4310, L300.8000, L500.2500, L503.6005, L100.0100 #### [facility] [address] [place], [address] ALK P 68 U/L Normal 45-117 [facility] Comment on above: Performed By: #### L 300.3900, L501.5425, L503.6620, L300.4310, L300.8000, L500.2500, L503.6005, L100.0100 #### [facility] [address] [place], [address] ALT [Catalytic activity/Vol] 16 U/L Normal 13-56 [facility] Comment on above: Performed By: #### L 300.3900, L501.5425, L503.6620, L300.4310, L300.8000, L500.2500, L503.6005, L100.0100 #### [facility] [address] [place], [place], [id number] AST [Catalytic activity/Vol] 17 U/L Normal 15-37 [facility] Comment on above: Performed By: #### L 300.3900, L501.5425, L503.6620, L300.4310, L300.8000, L500.2500, L503.6005, L100.0100 #### [facility] [address], [address] Bilirubin [Mass/Vol] 0.40 mg/dL Normal 0.20-1.00 [facility] Comment on above: Result Comment: For patients on eltrombopag therapy, use of Dimension [place] TBIL is not recommended. Performed By: #### L 300.3900, L501.5425, L503.6620, L300.4310, L300.8000, L500.2500, L503.6005, L100.0100 #### [facility] [address] [place], [address] BUN/CRE 15.0 RATIO Normal 10-20 [facility] Comment on above: Performed By: #### L 300.3900, L501.5425, L503.6620, L300.4310, L300.8000, L500.2500, L503.6005, L100.0100 #### [facility] [address] [place], [address] CA,Total 9.1 mg/dL Normal 8.5-10.1 [facility] Comment on above: Performed By: #### L 300.3900, L501.5425, L503.6620, L300.4310, L300.8000, L500.2500, L503.6005, L100.0100 #### [facility] [address] [place], [address] Chloride [Moles/Vol] 105 mmol/L Normal 98-107 [facility] Comment on above: Performed By: #### L 300.3900, L501.5425, L503.6620, L300.4310, L300.8000, L500.2500, L503.6005, L100.0100 #### [facility] [address] [place], [address] CO2 [Moles/Vol] 28.0 mmol/L Normal 21.0-32.0 [facility] Comment on above: Performed By: #### L 300.3900, L501.5425, L503.6620, L300.4310, L300.8000, L500.2500, L503.6005, L100.0100 #### [facility] [address] [place], [address] Creatinine [Mass/Vol] 1.07 mg/dL High 0.55-1.02 [facility] Comment on above: Result Comment: The validity of the calculated GFR GFRAA in patients over 70 years has not been determined. Clinical correlation is essential. Performed By: #### L 300.3900, L501.5425, L503.6620, L300.4310, L300.8000, L500.2500, L503.6005, L100.0100 #### [facility] [address] [place], [address] EST GFR - AA 66 mL/min Normal >60 [facility] Comment on above: Result Comment: Afri can [place] GFR Calc Performed By: #### L 300.3900, L501.5425, L503.6620, L300.4310, L300.8000, L500.2500, L503.6005, L100.0100 #### [facility] [address] [place], [address] GAP 4 Low 5-15 [facility] Comment on above: Performed By: #### L 300.3900, L501.5425, L503.6620, L300.4310, L300.8000, L500.2500, L503.6005, L100.0100 #### [facility] [address] [place], [address] GFR/1.73 sq M.predicted among non-blacks MDRD (S/P/Bld) [Vol rate/Area] 55 mL/min/{1.73_m2} Low >60 [facility] Comment on above: Result Comment: Non- GFR Calc Performed By: #### L 300.3900, L501.5425, L503.6620, L300.4310, L300.8000, L500.2500, L503.6005, L100.0100 #### [facility] [address] [place], [address] Globulin (S) [Mass/Vol] 3.6 g/dL Normal 2.2-4.2 [facility] Comment on above: Performed By: #### L 300.3900, L501.5425, L503.6620, L300.4310, L300.8000, L500.2500, L503.6005, L100.0100 #### [facility] [address] [place], [address] Glucose [Mass/Vol] 77 mg/dL Normal 74-106 [facility] Comment on above: Performed By: #### L 300.3900, L501.5425, L503.6620, L300.4310, L300.8000, L500.2500, L503.6005, L100.0100 #### [facility] [address] [place], [address] Potassium [Moles/Vol] 4.2 mmol/L Normal 3.5-5.1 [facility] Comment on above: Performed By: #### L 300.3900, L501.5425, L503.6620, L300.4310, L300.8000, L500.2500, L503.6005, L100.0100 #### [facility] [address] [place], [place], [id number] Sodium [Moles/Vol] 136 mmol/L Normal 136-145 [facility] Comment on above: Performed By: #### L 300.3900, L501.5425, L503.6620, L300.4310, L300.8000, L500.2500, L503.6005, L100.0100 #### [facility] [address], [address] T PROT 7.4 g/dL Normal 6.4-8.2 [facility] Comment on above: Performed By: #### L 300.3900, L501.5425, L503.6620, L300.4310, L300.8000, L500.2500, L503.6005, L100.0100 #### [facility] [address] [place], [place], [address] Urea nitrogen [Mass/Vol] 16 mg/dL Normal 7-18 [facility] Comment on above: Performed By: #### L 300.3900, L501.5425, L503.6620, L300.4310, L300.8000, L500.2500, L503.6005, L100.0100 #### [facility] [address] [place], [place], [id number] [facility] Telephone (UROLWS) -- ZACKERY NUNEZ ([id number]) 1960 F Date Time Provider Department 04/11/24 KD STOCKTON During your visit today, we recorded the following information about you: Lula Segovia LPN 04/11/2024 12:52 PM Signed ----- Message from Kd Stockton PA-C sent at 04/10/2024 7:05 PM EDT ----- No infection in the urine Kd Stockton [facility], Lula Alcala LPN 04/11/2024 12:57 PM Signed [...] Status:Closed by MAYELA CHOPRA on 04/12/24 Normal [facility] Bacteria Ur Culton 4 Bacteria identified Cx Nom (U) ORGANISM ID: 1 <10,000 CFU/ml Normal urogenital juan Normal [facility] Comment on above: Performed By: #### 6 30-4 ####[facility] LABCLIA [id number] [place] [address] [place] CNOVon 04-09-2024 CNOV Office Visit (UROLWS ) -- ZACKERY NUNEZ ([id number]) 1960 F Date Time Provider Department 04/09/24 2:45 PM KD STOCKTON UROLABDI During your visit today, we recorded the following information about you: Temperature Pulse Respiration Blood pressure 98 degrees 66/minute 16/minute 122/75 Weight 92.1 kg Kd Stockton PA-C 04/09/2024 5:48 PM Signed [facility] NEW PATIENT CLINIC NOTE [...] Onset Diab (more content not included)... Normal [facility] UA DIP, URINE (POC)on 2023 BILIRUBIN UA (POCT) Negative Negative [facility] CLARITY UA (POCT) Slightly Cloudy Cl [facility] COLOR UA (POCT) Yellow [facility] GLUCOSE UA (POCT) Negative Negative mg/dL [facility] Hemoglobin Ql (U) Moderate Abnormal Negative [facility] Interpretation and review of laboratory results Abnormal [facility] KETONE UA (POCT) Negative Negative mg/dL [facility] LEUKOCYTES UA (POCT) Small Abnormal Negative [facility] NITRITE UA (POCT) Negative Negative [facility] PH UA (POCT) 5.5 4.5 - 8.[address] [facility] Protein Ql (U) Negative Negative mg/dL [facility] SPECIFIC GRAVITY UA (POCT) 1.020 1.005 - 1.[address] [facility] UROBILINOGEN UA (POCT) 0.2 Normal E.U./dL [facility] Location:[facility], [address], [place], [address] [facility] POINT OF CARE [facility] CNPCarolyn 03-09-2024 CNPN Telephone (FAMPWS) -- ZACKERY NUNEZ ([id number]) 1960 F Date Time Provider Department 03/09/24 MIKAYLA STRANGEWS During your visit today, we [...] back if she has any questions. Makenna Crowder, JOURDAN 03/09/2024 10:45 AM Signed Patient notified of [...] [R31.29] Order(s):CONSULT TO UROLOGY [9041] Order #: [id number]: 1 FUTURE Prescriptions as of 03/09/2024 - [...] Status:Closed by MAKENNA CROWDER on 03/09/24 Normal [facility] Bacteria Ur Culton 4 Bacteria identified Cx Nom (U) ORGANISM ID: 1 <10,000 CFU/ml Normal urogenital juan Normal [facility] Comment on above: Performed By: #### 6 30-4 ####[facility] LABCLIA [id number] [address] [place] CNPNon 03-06-2024 CNPN Telephone ([facility]) -- ZACKERY NUNEZ ([id number]) 1960 F Date Time Provider Department 03/06/24 [facility] your visit today, we recorded [...] hematuria [N30.01] Order(s):URINE CULTURE [SQURCUL] Order #: [id number] FUTURE Prescriptions as of 03/06/2024 - atorvastatin [...] [N18.30] 10/26/19 (more content not included)... Normal [facility] Urinalysis complete panel (U )on 03-05-2024 Bacteria LM.HPF (Urine sed) [#/Area] Negative Normal Negative [facility] Comment on above: Order Comment: Speci men Type: URINE SPECIMEN [facility] Address: [address] [place] [address] Performed By: #### 2 4356-8 #### [facility] CLIA [id number] [address] [place] [address] [place] Bilirubin Ql (U) Negative Normal Negative [facility] Comment on above: Order Comment: Speci men Type: URINE SPECIMEN [facility] Address: [address] [place] [address] Performed By: #### 2 4356-8 #### [facility] CLIA [id number] [address] [place] [address] [place] CALCIUM OXALATE CRYSTALS (UA) Few Abnormal None Seen [facility] Comment on above: Order Comment: Speci men Type: URINE SPECIMEN [facility] Address: [address] [place] [address] Performed By: #### 2 4356-8 #### [facility] CLIA [id number] [address] [place] [address] [place] Clarity (Unsp spec) Clear Normal Clear [facility] Comment on above: Order Comment: Speci men Type: URINE SPECIMEN [facility] Address: [address] [place] [address] Performed By: #### 2 4356-8 #### [facility] CLIA [id number] [address] [place] [address] [place] Color (U) Dark Yellow Abnormal Yellow [facility] Comment on above: Order Comment: Speci men Type: URINE SPECIMEN [facility] Address: [address] [place] [address] Performed By: #### 2 4356-8 #### [facility] CLIA [id number] [address] [place] [address] [place] Epithelial cells LM.HPF (Urine sed) [#/Area] None Seen Normal [facility] Comment on above: Order Comment: Speci men Type: URINE SPECIMEN [facility] Address: [address] [place] [address] Performed By: #### 2 4356-8 #### [facility] CLIA [id number] [address] [place] [address] [place] Glucose Test strip (U) [Mass/Vol] Negative Normal Negative [facility] Comment on above: Order Comment: Speci men Type: URINE SPECIMEN [facility] Address: [address] [place] [address] Performed By: #### 2 4356-8 #### [facility] CLIA [id number] [address] [place] [address] [place] Hemoglobin Ql (U) Negative Normal Negative [facility] Comment on above: Order Comment: Speci men Type: URINE SPECIMEN [facility] Address: [address] [place] [address] Performed By: #### 2 4356-8 #### [facility] CLIA [id number] [address] [place] [address] [place] Hyaline casts (Urine sed) [#/Area] /[LPF] Abnormal 0 /LPF [facility] Comment on above: Order Comment: Speci men Type: URINE SPECIMEN [facility] Address: [address] [place] [address] Performed By: #### 2 4356-8 #### [facility] CLIA [id number] [address] [place] [address] [place] Ketones Ql (U) Negative Normal Negative [facility] Comment on above: Order Comment: Speci men Type: URINE SPECIMEN [facility] Address: [address] [place] [address] Performed By: #### 2 4356-8 #### [facility] CLIA [id number] [address] [place] [address] [place] Leukocyte esterase Test strip Ql (U) Negative Normal Negative [facility] Comment on above: Order Comment: Speci men Type: URINE SPECIMEN [facility] Address: [address] [place] [address] Performed By: #### 2 4356-8 #### [facility] CLIA [id number] [address] [place] [address] [place] Nitrite Ql (U) Negative Normal Negative [facility] Comment on above: Order Comment: Speci men Type: URINE SPECIMEN [facility] Address: [address] [place] [address] Performed By: #### 2 4356-8 #### [facility] CLIA [id number] [address] [place] [address] [place] pH (U) 5.5 [pH] Normal <8.5 [facility] Comment on above: Order Comment: Speci men Type: URINE SPECIMEN [facility] Address: [address] [place] [address] Performed By: #### 2 4356-8 #### [facility] CLIA [id number] [address] [place] [address] [place] Protein (U) [Mass/Vol] Negative Normal Negative [facility] Comment on above: Order Comment: Speci men Type: URINE SPECIMEN [facility] Address: [address] [place] [address] Performed By: #### 2 4356-8 #### [facility] CLIA [id number] [address] [place] [address] [place] RBC LM.HPF (Urine sed) [#/Area] 3-5 /HPF Abnormal 0-2 /HPF [facility] Comment on above: Order Comment: Speci men Type: URINE SPECIMEN [facility] Address: [address] [place] [address] Performed By: #### 2 4356-8 #### [facility] IA [id number] [address] [place] [address] [place] Specific gravity (U) [Rel density] 1.025 Normal 1.005-1.03 0 [facility] Comment on above: Order Comment: Speci men Type: URINE SPECIMEN [facility] Address: [address] [place] [address] Performed By: #### 2 4356-8 #### [facility] IA [id number] [address] [place] [address] [place] Urobilinogen Ql (U) 0.2 EU/dL Normal 0.2-1.0 EU/dL [facility] Comment on above: Order Comment: Speci men Type: URINE SPECIMEN [facility] Address: [address] [place] [address] Performed By: #### 2 4356-8 #### [facility] [place] [id number] [address] [place] [address] [place] WBC LM.HPF (Urine sed) [#/Area] 0-5 /HPF Normal 0-5 /HPF [facility] Comment on above: Order Comment: Speci men Type: URINE SPECIMEN [facility] Address: [address] [place] [address] Performed By: #### 2 4356-8 #### [facility] IA [id number] [address] [place] [address] [place] Bacteria Ur Culton [...] , Intermediate >32 , Resistant >64 Abnormal [facility] Comment on above: Performed By: #### 6 30-4 ####[facility] LABCLIA [id number] [address] [place] CNOVon 02-20-2024 CNOV Office Visit (FAMPWS ) -- ZACKERY NUNEZ ([id number]) 1960 F Date Time Provider Department 02/20/24 4:00 PM MIKAYLA STRANGE [facility] During your visit today, we recorded [...] WHEN PFRMD Comment: suboptimal - poor prep s: EGD 07/30/2014: ESOPHAGOGASTRODUODENOSCOPY TRANSORAL DIAGNOSTIC Comment: EGD No date: JOINT REPLACEMENT HX 12/31/1993: LAPAROSCOPY SURG CHOLECYSTECTOMY 1994: PAST SURGICAL HISTORY OF Comm (more content not included)... Normal [facility] UA DIP, URINE (POC)on 2023 BILIRUBIN UA (POCT) Negative Negative [facility] CLARITY UA (POCT) Cloudy [facility] COLOR UA (POCT) Yellow [facility] GLUCOSE UA (POCT) Negative Negative mg/dL [facility] Hemoglobin Ql (U) Trace-intact Abnormal Negative [facility] Interpretation and review of laboratory results Abnormal [facility] KETONE UA (POCT) Negative Negative mg/dL [facility] LEUKOCYTES UA (POCT) Large Abnormal Negative [facility] NITRITE UA (POCT) Positive Abnormal Negative [facility] PH UA (POCT) 5.5 4.5 - 8.[address] [facility] Protein Ql (U) Trace Abnormal Negative mg/dL [facility] SPECIFIC GRAVITY UA (POCT) 1.020 1.005 - 1.[address] [facility] UROBILINOGEN UA (POCT) 0.2 Normal E.U./dL [facility] Location:[address], [place], [place], [address] [place] [address] POINT OF CARE [facility] CBC W/Diff, Automatedon 08-0 Absolute Lymph 3.20 X10 3/uL Normal 0.83-4.51 [facility] Comment on above: Performed By: #### L 500.4050, L100.0100 #### [facility] [address] [place], [address] Absolute Neut 3.1 X10 3/uL Normal 2.0-7.7 [facility] Comment on above: Performed By: #### L 500.4050, L100.0100 #### [facility] [address] [place], [address] Basophils/100 WBC (Bld) 0.6 % Normal 0-1 [facility] Comment on above: Performed By: #### L 500.4050, L100.0100 #### [facility] [address] [place], [address] Eosinophils/100 WBC (Bld) 1.0 % Normal 0-5 [facility] Comment on above: Performed By: #### L 500.4050, L100.0100 #### [facility] [address] [place], [address] Erythrocyte distribution width (RBC) [Ratio] 12.8 % Normal 11.6-14.6 [facility] Comment on above: Performed By: #### L 500.4050, L100.0100 #### [facility] [address] [place], [address] Hematocrit (Bld) [Volume fraction] 34.9 % Low 37-47 [facility] Comment on above: Performed By: #### L 500.4050, L100.0100 #### [facility] [address] [place], [address] Hemoglobin (Bld) [Mass/Vol] 10.8 g/dL Low 12.0-15.0 [facility] Comment on above: Performed By: #### L 500.4050, L100.0100 #### [facility] [address] [place], [address] IG% 0.300 Normal 0.0-0.9 [facility] Comment on above: Result Comment: IG% - Immature Granulocytes (promyelocytes, myelocytes and metamyelocytes) > 1% indicates that a LEFT SHIFT is Present. Performed By: #### L 500.4050, L100.0100 #### [facility] [address] [place], [address] Lymphocytes/100 WBC (Bld) 46.5 % High 19-41 [facility] Comment on above: Performed By: #### L 500.4050, L100.0100 #### [facility] [address] [place], [address] MCH (RBC) [Entitic mass] 28.1 pg Normal 27.0-32.0 [facility] Comment on above: Performed By: #### L 500.4050, L100.0100 #### [facility] [address] [place], [address] MCHC (RBC) [Mass/Vol] 30.9 g/dL Low 32-36 [facility] Comment on above: Performed By: #### L 500.4050, L100.0100 #### [facility] [address] [place], [address] MCV (RBC) [Entitic vol] 90.9 fL Normal 81-99 [facility] Comment on above: Performed By: #### L 500.4050, L100.0100 #### [facility] [address] [place], [address] Monocytes/100 WBC (Bld) 6.3 % Normal 0-10 [facility] Comment on above: Performed By: #### L 500.4050, L100.0100 #### [facility] [address] [place], [address] Neutrophils/100 WBC (Bld) 45.3 % Low 47-70 [facility] Comment on above: Performed By: #### L 500.4050, L100.0100 #### [facility] [address] [place], [address] Nucleated RBC (Bld) [#/Vol] 0 10*3/uL Normal 0-5 [facility] Comment on above: Performed By: #### L 500.4050, L100.0100 #### [facility] [address] [place], [address] Platelet mean volume (Bld) [Entitic vol] 11.3 fL Normal 6.2-12.0 [facility] Comment on above: Performed By: #### L 500.4050, L100.0100 #### [facility] [address] [place], [address] Platelets (Bld) [#/Vol] 260 10*3/uL Normal 150-450 [facility] Comment on above: Performed By: #### L 500.4050, L100.0100 #### [facility] [address] [place], [address] RBC (Bld) [#/Vol] 3.84 10*6/uL Low 4.2-5.4 [facility] Comment on above: Performed By: #### L 500.4050, L100.0100 #### [facility] [address] [place], [address] RDW SD 42.2 fl Normal 35.1-43.9 [facility] Comment on above: Performed By: #### L 500.4050, L100.0100 #### [facility] [address] [place], [address] WBC (Bld) [#/Vol] 6.9 10*3/uL Normal 4.4-11.0 [facility] Comment on above: Performed By: #### L 500.4050, L100.0100 #### [facility] [address] [place], [address] Comprehensive Metabolic Prof ilon 01-25-2024 Albumin [Mass/Vol] 3.3 g/dL Normal 3.2-5.0 [facility] Comment on above: Performed By: #### L 500.4050, L100.0100 #### [facility] [address] [place], [address] Albumin/Globulin [Mass ratio] 1.0 {ratio} Normal 0.9-2.4 [facility] Comment on above: Performed By: #### L 500.4050, L100.0100 #### [facility] [address] [place], [address] ALK P 75 U/L Normal 45-117 [facility] Comment on above: Performed By: #### L 500.4050, L100.0100 #### [facility] [address] [place], [address] ALT [Catalytic activity/Vol] 13 U/L Normal 13-56 [facility] Comment on above: Performed By: #### L 500.4050, L100.0100 #### [facility] [address] [place], [address] AST [Catalytic activity/Vol] 18 U/L Normal 15-37 [facility] Comment on above: Performed By: #### L 500.4050, L100.0100 #### [facility] [address] [place], [address] Bilirubin [Mass/Vol] 0.30 mg/dL Normal 0.20-1.00 [facility] Comment on above: Result Comment: For patients on eltrombopag therapy, use of Dimension [place] TBIL is not recommended. Performed By: #### L 500.4050, L100.0100 #### [facility] [address] [place], [address] BUN/CRE 14.6 RATIO Normal 10-20 [facility] Comment on above: Performed By: #### L 500.4050, L100.0100 #### [facility] [address] [place], [address] CA,Total 8.7 mg/dL Normal 8.5-10.1 [facility] Comment on above: Performed By: #### L 500.4050, L100.0100 #### [facility] [address] [place], [address] Chloride [Moles/Vol] 106 mmol/L Normal 98-107 [facility] Comment on above: Performed By: #### L 500.4050, L100.0100 #### [facility] [address] [place], [address] CO2 [Moles/Vol] 27.0 mmol/L Normal 21.0-32.0 [facility] Comment on above: Performed By: #### L 500.4050, L100.0100 #### [facility] [address] [place], [address] Creatinine [Mass/Vol] 1.03 mg/dL High 0.55-1.02 [facility] Comment on above: Result Comment: The validity of the calculated GFR GFRAA in patients over 70 years has not been determined. Clinical correlation is essential. Performed By: #### L 500.4050, L100.0100 #### [facility] [address] [place], [address] EST GFR - AA 69 mL/min Normal >60 [facility] Comment on above: Result Comment: Afri can [place] GFR Calc Performed By: #### L 500.4050, L100.0100 #### [facility] [address] [place], [address] GAP 4 Low 5-15 [facility] Comment on above: Performed By: #### L 500.4050, L100.0100 #### [facility] [address] [place], [address] GFR/1.73 sq M.predicted among non-blacks MDRD (S/P/Bld) [Vol rate/Area] 57 mL/min/{1.73_m2} Low >60 [facility] Comment on above: Result Comment: Non- GFR Calc Performed By: #### L 500.4050, L100.0100 #### [facility] [address] [place], [address] Globulin (S) [Mass/Vol] 3.3 g/dL Normal 2.2-4.2 [facility] Comment on above: Performed By: #### L 500.4050, L100.0100 #### [facility] [address] [place], [address] Glucose [Mass/Vol] 90 mg/dL Normal 74-106 [facility] Comment on above: Performed By: #### L 500.4050, L100.0100 #### [facility] [address] [place], [address] Potassium [Moles/Vol] 4.3 mmol/L Normal 3.5-5.1 [facility] Comment on above: Performed By: #### L 500.4050, L100.0100 #### [facility] [address] [place], [address] Sodium [Moles/Vol] 137 mmol/L Normal 136-145 [facility] Comment on above: Performed By: #### L 500.4050, L100.0100 #### [facility] [address] [place], [address] T PROT 6.6 g/dL Normal 6.4-8.2 [facility] Comment on above: Performed By: #### L 500.4050, L100.0100 #### [facility] [address] [place], [address] Urea nitrogen [Mass/Vol] 15 mg/dL Normal 7-18 [facility] Comment on above: Performed By: #### L 500.4050, L100.0100 #### [facility] [address] [place], [address] Hemoccult Stl Ql IAon 2023 Lower GI hemoglobin IA Ql (Stl) Negative Normal Negative [facility] Comment on above: Order Comment: Speci men Type: STOOL SPECIMENOrdering Facility: [facility] Address: [address] [place] [address] Performed By: #### 2 9771-3 ####[facility] LABCLIA [id number] [place] [address] [place] CBC W Auto Differential pane l (Bld)on 01-15-2024 Basophils (Bld) [#/Vol] 0.03 10*3/uL Normal <0.11 [facility] Comment on above: Order Comment: Speci men Type: BLOOD SPECIMENOrdering Facility: [facility] Address: [address] [place] [address] Performed By: #### 5 7021-8 ####[facility] LABCLIA [id number] [place] [address] [place] Basophils/100 WBC (Bld) 0.4 % Normal [facility] Comment on above: Order Comment: Speci men Type: BLOOD SPECIMENOrdering Facility: [facility] Address: [address] [place] [address] Performed By: #### 5 7021-8 ####[facility] LABCLIA [id number] [place] [address] [place] Differential cell count method Nom (Bld) Auto Normal [facility] Comment on above: Order Comment: Speci men Type: BLOOD SPECIMENOrdering Facility: [facility] Address: [address] [place] [address] Performed By: #### 5 7021-8 ####[facility] LABCLIA [id number] [place] [address] [place] Eosinophils (Bld) [#/Vol] 0.09 10*3/uL Normal <0.46 [facility] Comment on above: Order Comment: Speci men Type: BLOOD SPECIMENOrdering Facility: [facility] Address: [address] [place] [address] Performed By: #### 5 7021-8 ####[facility] LABCLIA [id number] [place] [address] [place] Eosinophils/100 WBC (Bld) 1.1 % Normal [facility] Comment on above: Order Comment: Speci men Type: BLOOD SPECIMENOrdering Facility: [facility] Address: [address] [place] [address] Performed By: #### 5 7021-8 ####[facility] LABIA [id number] [place] [address] [place] Erythrocyte distribution width (RBC) [Ratio] 12.8 % Normal 11.5-15.0 [facility] Comment on above: Order Comment: Speci men Type: BLOOD SPECIMENOrdering Facility: [facility] Address: [address] [place] [address] Performed By: #### 5 7021-8 ####[facility] LABCLIA [id number] [place] [address] [place] Hematocrit (Bld) [Volume fraction] 37.0 % Normal 36.0-46.0 [facility] Comment on above: Order Comment: Speci men Type: BLOOD SPECIMENOrdering Facility: [facility] Address: [address] [place] [address] Performed By: #### 5 7021-8 ####[facility] LABCLIA [id number] [place] [address] [place] Hemoglobin (Bld) [Mass/Vol] 11.7 g/dL Normal 11.5-15.5 [facility] Comment on above: Order Comment: Speci men Type: BLOOD SPECIMENOrdering Facility: [facility] Address: [address] [place] [address] Performed By: #### 5 7021-8 ####[facility] LABIA [id number] [place] [address] [place] Immature granulocytes (Bld) [#/Vol] 0.04 10*3/uL Normal <0.10 [facility] Comment on above: Order Comment: Speci men Type: BLOOD SPECIMENOrdering Facility: [facility] Address: [address] [place] [address] Performed By: #### 5 7021-8 ####[facility] LABIA [id number] [place] [address] [place] Immature granulocytes/100 WBC (Bld) 0.5 % Normal [facility] Comment on above: Order Comment: Speci men Type: BLOOD SPECIMENOrdering Facility: [facility] Address: [address] [place] [address] Performed By: #### 5 7021-8 ####[facility] LABIA [id number] [place] [address] [place] Lymphocytes (Bld) [#/Vol] 1.45 10*3/uL Normal 1.00-4.00 [facility] Comment on above: Order Comment: Speci men Type: BLOOD SPECIMENOrdering Facility: [facility] Address: [address] [place] [address] Performed By: #### 5 7021-8 ####[facility] LABIA [id number] [place] [address] [place] Lymphocytes/100 WBC (Bld) 17.8 % Normal [facility] Comment on above: Order Comment: Speci men Type: BLOOD SPECIMENOrdering Facility: [facility] Address: [address] [place] [address] Performed By: #### 5 7021-8 ####[facility] LABIA [id number] [place] [address] [place] MCH (RBC) [Entitic mass] 29.3 pg Normal 26.0-34.0 [facility] Comment on above: Order Comment: Speci men Type: BLOOD SPECIMENOrdering Facility: [facility] Address: [address] [place] [address] Performed By: #### 5 7021-8 ####[facility] [id number] [place] [address] [place] MCHC (RBC) [Mass/Vol] 31.6 g/dL Normal 30.5-36.0 [facility] Comment on above: Order Comment: Speci men Type: BLOOD SPECIMENOrdering Facility: [facility] Address: [address] [place] [address] Performed By: #### 5 7021-8 ####[facility] LABIA [id number] [place] [address] [place] MCV (RBC) [Entitic vol] 92.5 fL Normal 80.0-100.0 [facility] Comment on above: Order Comment: Speci men Type: BLOOD SPECIMENOrdering Facility: [facility] Address: [address] [place] [address] Performed By: #### 5 7021-8 ####[facility] LABIA [id number] [place] [address] [place] Monocytes (Bld) [#/Vol] 0.60 10*3/uL Normal <0.87 [facility] Comment on above: Order Comment: Speci men Type: BLOOD SPECIMENOrdering Facility: [facility] Address: [address] [place] [address] Performed By: #### 5 7021-8 ####[facility] LABCLIA [id number] [place] [address] [place] Monocytes/100 WBC (Bld) 7.4 % Normal [facility] Comment on above: Order Comment: Speci men Type: BLOOD SPECIMENOrdering Facility: [facility] Address: [address] [place] [address] Performed By: #### 5 7021-8 ####[facility] LABCLIA [id number] [place] [address] [place] Neutrophils (Bld) [#/Vol] 5.92 10*3/uL Normal 1.45-7.50 [facility] Comment on above: Order Comment: Speci men Type: BLOOD SPECIMENOrdering Facility: [facility] Address: [address] [place] [address] Performed By: #### 5 7021-8 ####[facility] LABCLIA [id number] [place] [address] [place] Neutrophils/100 WBC (Bld) 72.8 % Normal [facility] Comment on above: Order Comment: Speci men Type: BLOOD SPECIMENOrdering Facility: [facility] Address: [address] [place] [address] Performed By: #### 5 7021-8 ####[facility] LABCLIA [id number] [place] [address] [place] Nucleated RBC (Bld) [#/Vol] 10*3/uL Normal <0.01 [facility] Comment on above: Order Comment: Speci men Type: BLOOD SPECIMENOrdering Facility: [facility] Address: [address] [place] [address] Performed By: #### 5 7021-8 ####[facility] LABCLIA [id number] [place] [address] [place] Nucleated RBC/100 WBC (Bld) [Ratio] 0.0 /100 WBC Normal [facility] Comment on above: Order Comment: Speci men Type: BLOOD SPECIMENOrdering Facility: [facility] Address: [address] [place] [address] Performed By: #### 5 7021-8 ####[facility] LABCLIA [id number] [place] [address] [place] Platelet mean volume (Bld) [Entitic vol] 11.3 fL Normal 9.0-12.7 [facility] Comment on above: Order Comment: Speci men Type: BLOOD SPECIMENOrdering Facility: [facility] Address: [address] [place] [address] Performed By: #### 5 7021-8 ####[facility] LABCLIA [id number] [place] [address] [place] Platelets (Bld) [#/Vol] 247 10*3/uL Normal 150-400 [facility] Comment on above: Order Comment: Speci men Type: BLOOD SPECIMENOrdering Facility: [facility] Address: [address] [place] [address] Performed By: #### 5 7021-8 ####[facility] LABCLIA [id number] [place] [address] [place] RBC (Bld) [#/Vol] 4.00 10*6/uL Normal 3.90-5.20 [facility] Comment on above: Order Comment: Speci men Type: BLOOD SPECIMENOrdering Facility: [facility] Address: [address] [place] [address] Performed By: #### 5 7021-8 ####[facility] LABCLIA [id number] [place] [address] [place] WBC (Bld) [#/Vol] 8.13 10*3/uL Normal 3.70-11.00 [facility] Comment on above: Order Comment: Speci men Type: BLOOD SPECIMENOrdering Facility: [facility] Address: [address] [place] [address] Performed By: #### 5 7021-8 ####[facility] LABCLIA [id number] [place] [address] [place] Ferritin SerPl-mCncon 2023 Ferritin [Mass/Vol] 74.5 ng/mL Normal 14.7-205.1 [facility] Comment on above: Order Comment: Speci men Type: URINE SPECIMEN [facility] Address: [address] [place] [address] Performed By: #### 2 4356-8 #### [facility] LAB CLIA [id number] [address] [place] [address] [place] Folate SerPl-mCncon 01-15-20 Folate [Mass/Vol] 10.2 ng/mL Normal >4.7 [facility] Comment on above: Order Comment: Speci men Type: URINE SPECIMEN [facility] Address: [address] [place] [address] Performed By: #### 2 4356-8 #### [facility] CLIA [id number] [address] [place] [address] [place] Iron and Iron binding capaci ty panelon 01-15-2024 Iron [Mass/Vol] 66 ug/dL Normal 41-186 [facility] Comment on above: Order Comment: Speci men Type: URINE SPECIMEN [facility] Address: [address] [place] [address] Performed By: #### 2 4356-8 #### [facility] CLIA [id number] [address] [place] [address] [place] Iron binding capacity [Mass/Vol] 251 ug/dL Normal 232-386 [facility] Comment on above: Order Comment: Speci men Type: URINE SPECIMEN [facility] Address: [address] [place] [address] Performed By: #### 2 4356-8 #### [facility] CLIA [id number] [address] [place] [address] [place] Iron/TIBC [Molar ratio] 26.3 % Normal 15.0-57.0 [facility] Comment on above: Order Comment: Speci men Type: URINE SPECIMEN [facility] Address: [address] [place] [address] Performed By: #### 2 4356-8 #### [facility] CLIA [id number] [address] [place] [address] [place] Vit B12 [facility] 07-22-2 024 Cobalamin (Vitamin B12) [Mass/Vol] 338 pg/mL Normal 232-1245 [facility] Comment on above: Order Comment: Speci men Type: URINE SPECIMEN [facility] Address: [address] [place] [address] Performed By: #### 2 4356-8 #### [facility] CLIA [id number] [address] [place] [address] [place] Vijay 01-08-2024 [facility] ZACKERY NUNEZ ([id number]) 1960 F Date Time Provider Department 01/08/24 [facility] During [facility] visit today, we recorded the following information about you: Mikayla Strange MD 01/08/2024 9:14 AM Signed Protein [...] Patient verbalizes understanding. Lab appt scheduled. Lara Borwn RN Allergies As of Date: 01/08/2024 Noted [...] BLOOD COUNT AND DIFFERENTIAL [SQCBCDIF] Order #: [id number] FUTURE IRON AND TIBC [SQIRON] Order #: [id number] FUTURE VITAMIN B12 [SQB12] Order #: [id number] FUTURE FOLATE, SERUM [SQSERFOL] Order #: [id number] FUTURE FERRITIN [SQFERR] Order #: [id number] FUTURE IMMUNOCHEMICAL FECAL OCCULT BLOOD TEST [SQIFOBT] Order #: [id number] FUTURE Prescriptions as of 01/08/2024 - omeprazole [...] (morbid obesity*05/ (more content not included)... Normal [facility] CBC W Auto Differential pane l (Bld)on 01-05-2024 Basophils (Bld) [#/Vol] 0.03 10*3/uL Normal <0.11 [facility] Comment on above: Order Comment: Speci men Type: BLOOD SPECIMENOrdering Facility: [facility] Address: [address] [place], [place] [address] Performed By: #### 5 7021-8 ####[facility] LABCLIA [id number] [place] [address] [place] Basophils/100 WBC (Bld) 0.3 % Normal [facility] Comment on above: Order Comment: Speci men Type: BLOOD SPECIMENOrdering Facility: [facility] Address: [address] [place] [address] Performed By: #### 5 7021-8 ####[facility] LABCLIA [id number] [place] [address] [place] Differential cell count method Nom (Bld) Auto Normal [facility] Comment on above: Order Comment: Speci men Type: BLOOD SPECIMENOrdering Facility: [facility] Address: [address] [place] [address] Performed By: #### 5 7021-8 ####[facility] LABCLIA [id number] [place] [address] [place] Eosinophils (Bld) [#/Vol] 0.06 10*3/uL Normal <0.46 [facility] Comment on above: Order Comment: Speci men Type: BLOOD SPECIMENOrdering Facility: [facility] Address: [address] [place] [address] Performed By: #### 5 7021-8 ####[facility] LABCLIA [id number] [place] [address] [place] Eosinophils/100 WBC (Bld) 0.7 % Normal [facility] Comment on above: Order Comment: Speci men Type: BLOOD SPECIMENOrdering Facility: [facility] Address: [address] [place] [address] Performed By: #### 5 7021-8 ####[facility] LABCLIA [id number] [place] [address] [place] Erythrocyte distribution width (RBC) [Ratio] 12.9 % Normal 11.5-15.0 [facility] Comment on above: Order Comment: Speci men Type: BLOOD SPECIMENOrdering Facility: [facility] Address: [address] [place] [address] Performed By: #### 5 7021-8 ####[facility] LABCLIA [id number] [place] [address] [place] Hematocrit (Bld) [Volume fraction] 36.7 % Normal 36.0-46.0 [facility] Comment on above: Order Comment: Speci men Type: BLOOD SPECIMENOrdering Facility: [facility] Address: [address] [place], [place] [address] Performed By: #### 5 7021-8 ####[facility] LABCLIA [id number] [place] [address] [place] Hemoglobin (Bld) [Mass/Vol] 11.4 g/dL Low 11.5-15.5 [facility] Comment on above: Order Comment: Speci men Type: BLOOD SPECIMENOrdering Facility: [facility] Address: [address] [place] [address] Performed By: #### 5 7021-8 ####[facility] LABCLIA [id number] [place] [address] [place] Immature granulocytes (Bld) [#/Vol] 0.03 10*3/uL Normal <0.10 [facility] Comment on above: Order Comment: Speci men Type: BLOOD SPECIMENOrdering Facility: [facility] Address: [address] [place] [address] Performed By: #### 5 7021-8 ####[facility] LABIA [id number] [place] [address] [place] Immature granulocytes/100 WBC (Bld) 0.3 % Normal [facility] Comment on above: Order Comment: Speci men Type: BLOOD SPECIMENOrdering Facility: [facility] Address: [address] [place] [address] Performed By: #### 5 7021-8 ####[facility] LABCLIA [id number] [place] [address] [place] Lymphocytes (Bld) [#/Vol] 2.44 10*3/uL Normal 1.00-4.00 [facility] Comment on above: Order Comment: Speci men Type: BLOOD SPECIMENOrdering Facility: [facility] Address: [address] [place] [address] Performed By: #### 5 7021-8 ####[facility] LABIA [id number] [place] [address] [place] Lymphocytes/100 WBC (Bld) 27.8 % Normal [facility] Comment on above: Order Comment: Speci men Type: BLOOD SPECIMENOrdering Facility: [facility] Address: [address] [place] [address] Performed By: #### 5 7021-8 ####[facility] LABCLIA [id number] [place] [address] [place] MCH (RBC) [Entitic mass] 28.7 pg Normal 26.0-34.0 [facility] Comment on above: Order Comment: Speci men Type: BLOOD SPECIMENOrdering Facility: [facility] Address: [address] [place] [address] Performed By: #### 5 7021-8 ####[facility] LABCLIA [id number] [place] [address] [place] MCHC (RBC) [Mass/Vol] 31.1 g/dL Normal 30.5-36.0 [facility] Comment on above: Order Comment: Speci men Type: BLOOD SPECIMENOrdering Facility: [facility] Address: [address] [place] [address] Performed By: #### 5 7021-8 ####[facility] LABIA [id number] [place] [address] [place] MCV (RBC) [Entitic vol] 92.4 fL Normal 80.0-100.0 [facility] Comment on above: Order Comment: Speci men Type: BLOOD SPECIMENOrdering Facility: [facility] Address: [address] [place] [address] Performed By: #### 5 7021-8 ####[facility] LABCLIA [id number] [place] [address] [place] Monocytes (Bld) [#/Vol] 0.97 10*3/uL High <0.87 [facility] Comment on above: Order Comment: Speci men Type: BLOOD SPECIMENOrdering Facility: [facility] Address: [address] [place] [address] Performed By: #### 5 7021-8 ####[facility] LABCLIA [id number] [place] [address] [place] Monocytes/100 WBC (Bld) 11.0 % Normal [facility] Comment on above: Order Comment: Speci men Type: BLOOD SPECIMENOrdering Facility: [facility] Address: [address] [place] [address] Performed By: #### 5 7021-8 ####[facility] LABCLIA [id number] [place] [address] [place] Neutrophils (Bld) [#/Vol] 5.25 10*3/uL Normal 1.45-7.50 [facility] Comment on above: Order Comment: Speci men Type: BLOOD SPECIMENOrdering Facility: [facility] Address: [address] [place] [address] Performed By: #### 5 7021-8 ####[facility] LABCLIA [id number] [place] [address] [place] Neutrophils/100 WBC (Bld) 59.9 % Normal [facility] Comment on above: Order Comment: Speci men Type: BLOOD SPECIMENOrdering Facility: [facility] Address: [address] [place] [address] Performed By: #### 5 7021-8 ####[facility] LABCLIA [id number] [place] [address] [place] Nucleated RBC (Bld) [#/Vol] 10*3/uL Normal <0.01 [facility] Comment on above: Order Comment: Speci men Type: BLOOD SPECIMENOrdering Facility: [facility] Address: [address] [place] [address] Performed By: #### 5 7021-8 ####[facility] LABCLIA [id number] [place] [address] [place] Nucleated RBC/100 WBC (Bld) [Ratio] 0.0 /100 WBC Normal [facility] Comment on above: Order Comment: Speci men Type: BLOOD SPECIMENOrdering Facility: [facility] Address: [address] [place] [address] Performed By: #### 5 7021-8 ####[facility] LABCLIA [id number] [place] [address] [place] Platelet mean volume (Bld) [Entitic vol] 11.5 fL Normal 9.0-12.7 [facility] Comment on above: Order Comment: Speci men Type: BLOOD SPECIMENOrdering Facility: [facility] Address: [address] [place] [address] Performed By: #### 5 7021-8 ####[facility] LABCLIA [id number] [place] [address] [place] Platelets (Bld) [#/Vol] 292 10*3/uL Normal 150-400 [facility] Comment on above: Order Comment: Speci men Type: BLOOD SPECIMENOrdering Facility: [facility] Address: [address] [place] [address] Performed By: #### 5 7021-8 ####[facility] LABIA [id number] [place] [address] [place] RBC (Bld) [#/Vol] 3.97 10*6/uL Normal 3.90-5.20 [facility] Comment on above: Order Comment: Speci men Type: BLOOD SPECIMENOrdering Facility: [facility] Address: [address] [place] [address] Performed By: #### 5 7021-8 ####[facility] LABCLIA [id number] [place] [address] [place] WBC (Bld) [#/Vol] 8.78 10*3/uL Normal 3.70-11.00 [facility] Comment on above: Order Comment: Speci men Type: BLOOD SPECIMENOrdering Facility: [facility] Address: [address] [place] [address] Performed By: #### 5 7021-8 ####[facility] LABALYSSA [id number] ANGELA JONES [id number] OF [facility] CNOVon 01-05-2024 CNOV Office Visit (FAMPWS ) -- MAYRASTARZACKERY ([id number]) 1960 F Date Time Provider Department 01/05/24 11:40 AM [facility] today, we recorded [...] ALLERGIES A (more content not included)... Normal [facility] Comprehensive metabolic 2000 panelon 01-05-2024 Albumin [Mass/Vol] 4.2 g/dL Normal 3.9-4.9 [facility] Comment on above: Order Comment: Speci men Type: URINE SPECIMEN [facility] Address: [address] [place] [address] Performed By: #### 2 4356-8 #### [facility] LAB CLIA [id number] [address] [place] [address] [place] ALP [Catalytic activity/Vol] 82 U/L Normal 34-123 [facility] Comment on above: Order Comment: Speci men Type: URINE SPECIMEN [facility] Address: [address] [place] [address] Performed By: #### 2 4356-8 #### [facility] CLIA [id number] [address] [place] [address] [place] ALT [Catalytic activity/Vol] 10 U/L Normal 7-38 [facility] Comment on above: Order Comment: Speci men Type: URINE SPECIMEN [facility] Address: [address] [place] [address] Performed By: #### 2 4356-8 #### [facility] CLIA [id number] [address] [place] [address] [place] Anion gap [Moles/Vol] 12 mmol/L Normal 8-15 [facility] Comment on above: Order Comment: Speci men Type: URINE SPECIMEN [facility] Address: [address] [place] [address] Performed By: #### 2 4356-8 #### [facility] CLIA [id number] [address] [place] [address] [place] AST [Catalytic activity/Vol] 13 U/L Normal 13-35 [facility] Comment on above: Order Comment: Speci men Type: URINE SPECIMEN [facility] Address: [address] [place] [address] Performed By: #### 2 4356-8 #### [facility] CLIA [id number] [address] [place] [address] [place] Bilirubin [Mass/Vol] mg/dL Low 0.2-1.3 [facility] Comment on above: Order Comment: Speci men Type: URINE SPECIMEN [facility] Address: [address] [place] [address] Performed By: #### 2 4356-8 #### [facility] CLIA [id number] [address] [place] [address] [place] Calcium [Mass/Vol] 9.3 mg/dL Normal 8.5-10.2 [facility] Comment on above: Order Comment: Speci men Type: URINE SPECIMEN [facility] Address: [address] [place] [address] Performed By: #### 2 4356-8 #### [facility] CLIA [id number] [address] [place] [address] [place] Chloride [Moles/Vol] 102 mmol/L Normal 98-107 [facility] Comment on above: Order Comment: Speci men Type: URINE SPECIMEN [facility] Address: [address] [place] [address] Performed By: #### 2 4356-8 #### [facility] CLIA [id number] [address] [place] [address] [place] CO2 [Moles/Vol] 25 mmol/L Normal 22-30 [facility] Comment on above: Order Comment: Speci men Type: URINE SPECIMEN [facility] Address: [address] [place] [address] Performed By: #### 2 4356-8 #### [facility] CLIA [id number] [address] [place] [address] [place] Creatinine [Mass/Vol] 1.11 mg/dL High 0.58-0.96 [facility] Comment on above: Order Comment: Speci men Type: URINE SPECIMEN [facility] Address: [address] [place] [address] Performed By: #### 2 4356-8 #### [facility] CLIA [id number] [address] [place] [address] [place] Creatinine and Glomerular filtration rate.predicted panel (S/P/Bld) 55 mL/min/1.73m??? Low >=60 [facility] Comment on above: Order Comment: Nery vidales Type: URINE SPECIMEN [facility] Address: [address] [place] [address] Result Comment: Sienna mated Glomerular Filtration Rate [...] reflect actual GFR. Performed By: #### 2 4356-8 #### [facility] CLIA [id number] [address] [place] [address] [place] Glucose [Mass/Vol] 93 mg/dL Normal 74-99 [facility] Comment on above: Order Comment: Nery vidales Type: URINE SPECIMEN [facility] Address: [address] [place] [address] Result Comment: The [place] Diabetes Association (ADA) provides guidance for cutoff [...] Standards of Medical Care in Diabetes 2016, [place] [employer]. Diabetes Care. 2016.39(Suppl 1). Performed By: #### 2 4356-8 #### [facility] CLIA [id number] [address] [place] [address] [place] Potassium [Moles/Vol] 4.0 mmol/L Normal 3.7-5.1 [facility] Comment on above: Order Comment: Speci men Type: URINE SPECIMEN [facility] Address: [address] [place] [address] Performed By: #### 2 4356-8 #### [facility] CLIA [id number] [address] [place] [address] [place] Protein [Mass/Vol] 6.6 g/dL Normal 6.3-8.0 [facility] Comment on above: Order Comment: Speci men Type: URINE SPECIMEN [facility] Address: [address] [place] [address] Performed By: #### 2 4356-8 #### [facility] CLIA [id number] [address] [place] [address] [place] Sodium [Moles/Vol] 139 mmol/L Normal 136-144 [facility] Comment on above: Order Comment: Speci men Type: URINE SPECIMEN [facility] Address: [address] [place] [address] Performed By: #### 2 4356-8 #### [facility] CLIA [id number] [address] [place] [address] [place] Urea nitrogen [Mass/Vol] 16 mg/dL Normal 7-21 [facility] Comment on above: Order Comment: Speci men Type: URINE SPECIMEN [facility] Address: [address] [place] [address] Performed By: #### 2 4356-8 #### [facility] CLIA [id number] [address] [place] [address] [place] HbA1c (Bld)on 01-05-2024 Average glucose Estimated from glycated hemoglobin (Bld) [Mass/Vol] 114 mg/dL Normal [facility] Comment on above: Order Comment: Speci men Type: BLOOD SPECIMENOrdering Facility: [facility] Address: [address] [place] [address] Result Comment: eAG: (Estimated average glucose) is a calculated value from HgbA1c and is ambulatory service representative of the average blood glucose level in the last 2-3 month period. Performed By: #### 5 5454-3 ####[facility] LABCLIA [id number] [place] [address] [place] HbA1c (Bld) [Mass fraction] 5.6 % Normal 4.3-5.6 [facility] Comment on above: Order Comment: Speci men Type: BLOOD SPECIMENOrdering Facility: [facility] Address: [address] [place] [address] Result Comment: [place] Diabetes Association guidelines indicate that patients with HgbA1c in the range 5.7-6.4% are at increased risk for development of diabetes, and intervention by lifestyle modification may be beneficial. HgbA1c greater or equal to 6.5% is considered diagnostic of diabetes. Performed By: #### 5 5454-3 ####[facility] LABCLIA [id number] [place] [address] [place] Prealb SerPl-mCncon 01-05-20 24 Prealbumin [Mass/Vol] 16 mg/dL Low 17-36 [facility] Comment on above: Order Comment: Speci men Type: URINE SPECIMEN [facility] Address: [address] [place] [address] Performed By: #### 2 4356-8 #### [facility] CLIA [id number] [address] [place] [address] [place] Absolute lymphocyte countOrd ered By: Smita Buck on 08-10-2023 Lymphocytes Auto (Unsp spec) [#/Vol] 2.84 10*3/uL 0.83-4.51 [facility] Automated lymphocyte count a s percentage of total leukocytesOrdered By: Smita Buck on 08-10-2023 Lymphocytes/100 WBC Auto (Unsp spec) 37.3 % 19-41 [facility] Basophil percentageOrdered B y: Smita Buck on 08-10-2023 Basophils/100 WBC (Bld) 0.5 % 0-1 [facility] Bilirubin [Mass/Vol] 0.30 mg/dL 0.20-1.00 [facility] Comment on above: For patients on eltr ombopag therapy, use of Dim[place] TBIL is not recommended. Chloride [Moles/Vol] 108 mmol/L 98-107 [facility] Eosinophils/100 WBC (Bld) 1.7 % 0-5 [facility] Glucose [Mass/Vol] 88 mg/dL 74-106 [facility] Hemoglobin (Bld) [Mass/Vol] 11.8 g/dL 12.0-15.0 [facility] Monocytes/100 WBC (Bld) 6.2 % 0-10 [facility] Neutrophils (Bld) [#/Vol] 4.1 10*3/uL 2.0-7.7 [facility] Neutrophils/100 WBC (Bld) 54.2 % 47-70 [facility] Potassium [Moles/Vol] 3.5 mmol/L 3.5-5.1 [facility] Protein [Mass/Vol] 6.9 g/dL 6.4-8.2 [facility] Sodium [Moles/Vol] 141 mmol/L 136-145 [facility] WBC (Bld) [#/Vol] 7.6 10*3/uL 4.4-11.0 [facility] Determination of erythrocyte mean corpuscular volume (MCV)Ordered By: Smita Buck on 08-10-2023 MCV (RBC) [Entitic vol] 92.2 fL 81-99 [facility] Erythrocyte distribution wid th ratioOrdered By: Smita Buck on 08-10-2023 Erythrocyte distribution width (RBC) [Ratio] 13.0 % 11.6-14.6 [facility] Erythrocyte distribution wid th standard deviationOrdered By: Smita Buck on 08-10-2023 Erythrocyte distribution width (RBC) [Entitic vol] 44.3 fL 35.1-43.9 [facility] Hematocrit Auto (Bld) [Volum e fraction]Ordered By: Smita Buck on 08-10-2023 Hematocrit (Bld) [Volume fraction] 37.8 % 37-47 [facility] Immature granulocytes/100 WB C Auto (Bld)Ordered By: Smita Buck on 08-10-2023 Immature granulocytes/100 WBC (Bld) 0.100 % 0.0-0.9 [facility] Comment on above: IG% - Immature Granu locytes (promyelocytes, myelocytes and metamyelocytes) > 1% indicates that a LEFT SHIFT is Present. Laboratory - Chemistry and C hemistry - challengeOrdered By: Smita Buck on 08-10-2023 Albumin/Globulin [Mass ratio] 1.2 {ratio} 0.9-2.4 [facility] ALP [Catalytic activity/Vol] 66 U/L 45-117 [facility] ALT [Catalytic activity/Vol] 15 U/L 13-56 [facility] CO2 [Moles/Vol] 26.0 mmol/L 21.0-32.0 [facility] Globulin (S) [Mass/Vol] 3.2 g/dL 2.2-4.2 [facility] Urea nitrogen/Creatinine [Mass ratio] 9.5 mg/mg 10-20 [facility] Laboratory - Hematology and Cell countsOrdered By: Smita Buck on 08-10-2023 MCH (RBC) [Entitic mass] 28.8 pg 27.0-32.0 [facility] MCHC (RBC) [Mass/Vol] 31.2 g/dL 32-36 [facility] Nucleated RBC/100 WBC (Bld) [Ratio] 0 % 0-5 [facility] Platelet mean volume (Bld) [Entitic vol] 11.3 fL 6.2-12.0 [facility] Platelets (Bld) [#/Vol] 220 10*3/uL 150-450 [facility] No Panel InformationOrdered By: Smita Buck on 08-10-2023 Estimated GFR (MDRD) Amer 60 mL/min >60 [facility] Comment on above: GFR Calc Estimated GFR (MDRD) Non-Af Amer 50 mL/min >60 [facility] Comment on above: Non- GFR Calc RBC Auto (Bld) [#/Vol]Ordere d By: Smita Buck on 08-10-2023 RBC (Bld) [#/Vol] 4.10 10*6/uL 4.2-5.4 [facility] Serum or plasma calcium francisco urement (mass/volume)Ordered By: Smita Buck on 08-10-2023 Calcium [Mass/Vol] 9.0 mg/dL 8.5-10.1 [facility] Serum or plasma creatinine m easurement (mass/volume)Ordered By: Smita Buck on 08-10-2023 Creatinine [Mass/Vol] 1.16 mg/dL 0.55-1.02 [facility] Comment on above: The validity of the calculated GFR & GFRAA in patients over 70 years has not been determined. Clinical correlation is essential. Serum or plasma urea nitroge n measurement (mass/volume)Ordered By: Smita Buck on 08-10-2023 Urea nitrogen [Mass/Vol] 11 mg/dL 7-18 [facility] Thin prep Papanicolaou smear with manual screeningOrdered By: Smita Buck on 08-10-2023 Thin prep Papanicolaou smear with manual screening 3.7 g/dL 3.2-5.0 [facility] Thin prep Papanicolaou smear with manual screening 22 U/L 15-37 [facility] Thin prep Papanicolaou smear with manual screening 7 5-15 [facility] Laboratory - Drug toxicology Ordered By: Latia Ward on 07-12-2023 Amphetamines Ql (U) Negative <1000 ng/mL [facility] Benzodiazepines Ql (U) Negative < 200 ng/mL [facility] Cannabinoids Screen Ql (U) Negative < 50 ng/mL [facility] Cocaine Ql (U) Negative < 300 ng/mL [facility] Opiates Ql (U) Positive < 300 ng/mL [facility] No Panel InformationOrdered By: Latia Ward on 07-12-2023 MDMA (Ecstasy) Screen Negative < 500 ng/mL [facility] Miscellaneous Test See comment [facility] Comment on above: [id number] 6+OXYCODONE-B UND (ng/mL) DRUG RESULT SCREEN CUTOFF____ [...] MS,UR 1165 ng/mL 300 TESTING PERFORMED AT [facility]. ORIGINAL REPORT ON FILE IN LAB CONTAINS ADDITIONAL TEST SITE INFORMATION. Urine Barbiturates Screen Negative < 200 ng/mL [facility] Urine Drug Screen Comment [facility] Comment on above: CONFIRMATORY TESTING [...] Urine Methadone Screen Negative < 300 ng/mL [facility] Urine phencyclidine (PCP) de tectionOrdered By: Latia Ward on 07-12-2023 Phencyclidine Ql (U) Negative < 25 ng/mL [facility] Absolute lymphocyte countOrd ered By: Smita Buck on 03-24-2023 Lymphocytes Auto (Unsp spec) [#/Vol] 3.82 10*3/uL 0.83-4.51 [facility] Basophil percentageOrdered B y: Smita Buck on 03-24-2023 Basophils/100 WBC (Bld) 0.3 % 0-1 [facility] Bilirubin [Mass/Vol] 0.30 mg/dL 0.20-1.00 [facility] Comment on above: For patients on eltr ombopag therapy, use of Dim[place] TBIL is not recommended. Chloride [Moles/Vol] 103 mmol/L 98-107 [facility] Eosinophils/100 WBC (Bld) 0.7 % 0-5 [facility] Glucose [Mass/Vol] 77 mg/dL 74-106 [facility] Neutrophils (Bld) [#/Vol] 7.1 10*3/uL 2.0-7.7 [facility] Neutrophils/100 WBC (Bld) 60.3 % 47-70 [facility] Potassium [Moles/Vol] 4.0 mmol/L 3.5-5.1 [facility] Protein [Mass/Vol] 7.2 g/dL 6.4-8.2 [facility] Sodium [Moles/Vol] 137 mmol/L 136-145 [facility] WBC (Bld) [#/Vol] 11.8 10*3/uL 4.4-11.0 [facility] Blood erythrocytes count (nu mber/volume)Ordered By: Smita Buck on 03-24-2023 RBC (Bld) [#/Vol] 4.21 10*6/uL 4.2-5.4 [facility] Blood hemoglobin measurement (mass/volume)Ordered By: Smita Buck on 03-24-2023 Hemoglobin (Bld) [Mass/Vol] 12.6 g/dL 12.0-15.0 [facility] Blood lymphocytes/100 leukoc ytesOrdered By: Smita Buck on 03-24-2023 Lymphocytes/100 WBC (Bld) 32.5 % 19-41 [facility] Blood monocytes/100 leukocyt esOrdered By: Smita Buck on 03-24-2023 Monocytes/100 WBC (Bld) 5.9 % 0-10 [facility] Blood platelet mean volumeOr dered By: Smita Buck on 03-24-2023 Platelet mean volume (Bld) [Entitic vol] 10.0 fL 6.2-12.0 [facility] Determination of erythrocyte mean corpuscular volume (MCV)Ordered By: Simta Buck on 03-24-2023 MCV (RBC) [Entitic vol] 91.4 fL 81-99 [facility] Hematocrit Auto (Bld) [Volum e fraction]Ordered By: [facility] on 03-24-2023 Hematocrit (Bld) [Volume fraction] 38.5 % 37-47 [facility] Laboratory - Chemistry and C hemistry - challengeOrdered By: Smita Buck on 03-24-2023 ALP [Catalytic activity/Vol] 71 U/L 45-117 [facility] ALT [Catalytic activity/Vol] 23 U/L 13-56 [facility] CO2 [Moles/Vol] 27.0 mmol/L 21.0-32.0 [facility] Globulin (S) [Mass/Vol] 3.6 g/dL 2.2-4.2 [facility] Urea nitrogen/Creatinine [Mass ratio] 16.7 mg/mg 10-20 [facility] Laboratory - Hematology and Cell countsOrdered By: Smita Buck on 03-24-2023 Erythrocyte distribution width (RBC) [Entitic vol] 47.2 fL 35.1-43.9 [facility] Erythrocyte distribution width (RBC) [Ratio] 14.1 % 11.6-14.6 [facility] Immature granulocytes/100 WBC (Bld) 0.300 % 0.0-0.9 [facility] Comment on above: IG% - Immature Granu locytes (promyelocytes, myelocytes and metamyelocytes) > 1% indicates that a LEFT SHIFT is Present. MCH (RBC) [Entitic mass] 29.9 pg 27.0-32.0 [facility] Nucleated RBC/100 WBC (Bld) [Ratio] 0 % 0-5 [facility] MCHC Auto (RBC) [Mass/Vol]Or dered By: Smita Buck on 03-24-2023 MCHC (RBC) [Mass/Vol] 32.7 g/dL 32-36 [facility] No Panel InformationOrdered By: Smita Buck on 03-24-2023 Estimated GFR (MDRD) Amer 62 mL/min >60 [facility] Comment on above: GFR Calc Estimated GFR (MDRD) Non-Af Amer 51 mL/min >60 [facility] Comment on above: Non- GFR Calc Platelets bldOrdered By: Christopher Buck on 03-24-2023 Platelets (Bld) [#/Vol] 325 10*3/uL 150-450 [facility] Serum or plasma albumin francisco urement (mass/volume)Ordered By: Smita Buck on 03-24-2023 Albumin [Mass/Vol] 3.6 g/dL 3.2-5.0 [facility] Serum or plasma albumin/glob ulin mass ratioOrdered By: Smita Buck on 03-24-2023 Albumin/Globulin [Mass ratio] 1.0 {ratio} 0.9-2.4 [facility] Serum or plasma calcium francisco urement (mass/volume)Ordered By: Smita Buck on 03-24-2023 Calcium [Mass/Vol] 8.8 mg/dL 8.5-10.1 [facility] Serum or plasma creatinine m easurement (mass/volume)Ordered By: Smita Buck on 03-24-2023 Creatinine [Mass/Vol] 1.14 mg/dL 0.55-1.02 [facility] Comment on above: The validity of the calculated GFR & GFRAA in patients over 70 years has not been determined. Clinical correlation is essential. Serum or plasma urea nitroge n measurement (mass/volume)Ordered By: Smita Buck on 03-24-2023 Urea nitrogen [Mass/Vol] 19 mg/dL 7-18 [facility] Thin prep Papanicolaou smear with manual screeningOrdered By: Smita Buck on 03-24-2023 Thin prep Papanicolaou smear with manual screening 15 U/L 15-37 [facility] Thin prep Papanicolaou smear with manual screening 7 5-15 [facility] Absolute lymphocyte countOrd ered By: Smita Buck on 12-26-2022 Lymphocytes Auto (Unsp spec) [#/Vol] 4.56 10*3/uL 0.83-4.51 [facility] Basophil percentageOrdered B y: Smita Buck on 12-26-2022 Basophils/100 WBC (Bld) 0.5 % 0-1 [facility] Bilirubin [Mass/Vol] 0.40 mg/dL 0.20-1.00 [facility] Comment on above: For patients on eltr ombopag therapy, use of Dimension [place] TBIL is not recommended. Chloride [Moles/Vol] 107 mmol/L 98-107 [facility] Eosinophils/100 WBC (Bld) 1.7 % 0-5 [facility] Glucose [Mass/Vol] 88 mg/dL 74-106 [facility] Neutrophils (Bld) [#/Vol] 3.1 10*3/uL 2.0-7.7 [facility] Neutrophils/100 WBC (Bld) 36.6 % 47-70 [facility] Potassium [Moles/Vol] 3.8 mmol/L 3.5-5.1 [facility] Protein [Mass/Vol] 7.4 g/dL 6.4-8.2 [facility] Sodium [Moles/Vol] 137 mmol/L 136-145 [facility] WBC (Bld) [#/Vol] 8.4 10*3/uL 4.4-11.0 [facility] Blood erythrocytes count (nu mber/volume)Ordered By: Smita Buck on 12-26-2022 RBC (Bld) [#/Vol] 4.39 10*6/uL 4.2-5.4 [facility] Blood hemoglobin measurement (mass/volume)Ordered By: Smita Buck on 12-26-2022 Hemoglobin (Bld) [Mass/Vol] 12.5 g/dL 12.0-15.0 [facility] Blood lymphocytes/100 leukoc ytesOrdered By: Smita Buck on 12-26-2022 Lymphocytes/100 WBC (Bld) 54.1 % 19-41 [facility] Blood monocytes/100 leukocyt esOrdered By: Smita Buck on 12-26-2022 Monocytes/100 WBC (Bld) 6.9 % 0-10 [facility] Blood platelet mean volumeOr dered By: Smita Buck on 12-26-2022 Platelet mean volume (Bld) [Entitic vol] 11.9 fL 6.2-12.0 [facility] Determination of erythrocyte mean corpuscular volume (MCV)Ordered By: Smita Buck on 12-26-2022 MCV (RBC) [Entitic vol] 90.0 fL 81-99 [facility] Hematocrit Auto (Bld) [Volum e fraction]Ordered By: Smita Buck on 12-26-2022 Hematocrit (Bld) [Volume fraction] 39.5 % 37-47 [facility] Laboratory - Chemistry and C hemistry - challengeOrdered By: Smita Buck on 12-26-2022 ALP [Catalytic activity/Vol] 64 U/L 45-117 [facility] ALT [Catalytic activity/Vol] 19 U/L 13-56 [facility] CO2 [Moles/Vol] 24.0 mmol/L 21.0-32.0 [facility] Globulin (S) [Mass/Vol] 3.7 g/dL 2.2-4.2 [facility] Urea nitrogen/Creatinine [Mass ratio] 15.2 mg/mg 10-20 [facility] Laboratory - Hematology and Cell countsOrdered By: Smita Buck on 12-26-2022 Erythrocyte distribution width (RBC) [Entitic vol] 43.8 fL 35.1-43.9 [facility] Erythrocyte distribution width (RBC) [Ratio] 13.3 % 11.6-14.6 [facility] Immature granulocytes/100 WBC (Bld) 0.200 % 0.0-0.9 [facility] Comment on above: IG% - Immature Granu locytes (promyelocytes, myelocytes and metamyelocytes) > 1% indicates that a LEFT SHIFT is Present. MCH (RBC) [Entitic mass] 28.5 pg 27.0-32.0 [facility] Nucleated RBC/100 WBC (Bld) [Ratio] 0 % 0-5 [facility] MCHC Auto (RBC) [Mass/Vol]Or dered By: Smita Buck on 07-03-2023 MCHC (RBC) [Mass/Vol] 31.6 g/dL 32-36 [facility] No Panel InformationOrdered By: Smita Buck on 12-26-2022 Estimated GFR (MDRD) Amer 63 mL/min >60 [facility] Comment on above: GFR Calc Estimated GFR (MDRD) Non-Af Amer 52 mL/min >60 [facility] Comment on above: Non- GFR Calc Platelets bldOrdered By: Christopher Buck on 12-26-2022 Platelets (Bld) [#/Vol] 250 10*3/uL 150-450 [facility] Serum or plasma albumin francisco urement (mass/volume)Ordered By: Smiat Buck on 12-26-2022 Albumin [Mass/Vol] 3.7 g/dL 3.2-5.0 [facility] Serum or plasma albumin/glob ulin mass ratioOrdered By: Smita Buck on 12-26-2022 Albumin/Globulin [Mass ratio] 1.0 {ratio} 0.9-2.4 [facility] Serum or plasma calcium francisco urement (mass/volume)Ordered By: Smita Buck on 12-26-2022 Calcium [Mass/Vol] 8.9 mg/dL 8.5-10.1 [facility] Serum or plasma creatinine m easurement (mass/volume)Ordered By: Smita Buck on 12-26-2022 Creatinine [Mass/Vol] 1.12 mg/dL 0.55-1.02 [facility] Comment on above: The validity of the calculated GFR & GFRAA in patients over 70 years has not been determined. Clinical correlation is essential. Serum or plasma urea nitroge n measurement (mass/volume)Ordered By: Smita Buck on 12-26-2022 Urea nitrogen [Mass/Vol] 17 mg/dL 7-18 [facility] Thin prep Papanicolaou smear with manual screeningOrdered By: Smita Buck on 12-26-2022 Thin prep Papanicolaou smear with manual screening 22 U/L 15-37 [facility] Thin prep Papanicolaou smear with manual screening 6 5-15 [facility] Absolute lymphocyte countOrd ered By: Smita Buck on 10-03-2022 Lymphocytes Auto (Unsp spec) [#/Vol] 5.10 10*3/uL 0.83-4.51 [facility] Basophil percentageOrdered B y: Smita Buck on 10-03-2022 Basophils/100 WBC (Bld) 0.4 % 0-1 [facility] Bilirubin [Mass/Vol] 0.20 mg/dL 0.20-1.00 [facility] Comment on above: For patients on eltr ombopag therapy, use of Dimension [place] TBIL is not recommended. Chloride [Moles/Vol] 103 mmol/L 98-107 [facility] Eosinophils/100 WBC (Bld) 1.9 % 0-5 [facility] Glucose [Mass/Vol] 92 mg/dL 74-106 [facility] Neutrophils (Bld) [#/Vol] 3.2 10*3/uL 2.0-7.7 [facility] Neutrophils/100 WBC (Bld) 34.8 % 47-70 [facility] Potassium [Moles/Vol] 3.7 mmol/L 3.5-5.1 [facility] Protein [Mass/Vol] 7.4 g/dL 6.4-8.2 [facility] Sodium [Moles/Vol] 135 mmol/L 136-145 [facility] WBC (Bld) [#/Vol] 9.1 10*3/uL 4.4-11.0 [facility] Blood erythrocytes count (nu mber/volume)Ordered By: Smita Buck on 10-03-2022 RBC (Bld) [#/Vol] 4.25 10*6/uL 4.2-5.4 [facility] Blood hemoglobin measurement (mass/volume)Ordered By: Smita Buck on 10-03-2022 Hemoglobin (Bld) [Mass/Vol] 12.3 g/dL 12.0-15.0 [facility] Blood lymphocytes/100 leukoc ytesOrdered By: Smita Buck on 10-03-2022 Lymphocytes/100 WBC (Bld) 56.3 % 19-41 [facility] Blood manual differential co mment interpretation (narrative result)Ordered By: Smita Buck on 04-10-2023 Manual differential comment Yousif (Bld) [Interp] SCANNED [facility] Blood monocytes/100 leukocyt esOrdered By: Smita Buck on 10-03-2022 Monocytes/100 WBC (Bld) 6.0 % 0-10 [facility] Blood platelet mean volumeOr dered By: Smita Buck on 10-03-2022 Platelet mean volume (Bld) [Entitic vol] 10.4 fL 6.2-12.0 [facility] Determination of erythrocyte mean corpuscular volume (MCV)Ordered By: Smita Buck on 10-03-2022 MCV (RBC) [Entitic vol] 92.0 fL 81-99 [facility] Hematocrit Auto (Bld) [Volum e fraction]Ordered By: Smita Buck on 10-03-2022 Hematocrit (Bld) [Volume fraction] 39.1 % 37-47 [facility] Laboratory - Chemistry and C hemistry - challengeOrdered By: Smitaeladio Buck on 10-03-2022 ALP [Catalytic activity/Vol] 75 U/L 45-117 [facility] ALT [Catalytic activity/Vol] 25 U/L 13-56 [facility] CO2 [Moles/Vol] 28.0 mmol/L 21.0-32.0 [facility] Globulin (S) [Mass/Vol] 3.6 g/dL 2.2-4.2 [facility] Urea nitrogen/Creatinine [Mass ratio] 15.5 mg/mg 10-20 [facility] Laboratory - Hematology and Cell countsOrdered By: Smita Buck on 10-03-2022 Erythrocyte distribution width (RBC) [Entitic vol] 41.1 fL 35.1-43.9 [facility] Erythrocyte distribution width (RBC) [Ratio] 12.4 % 11.6-14.6 [facility] Immature granulocytes/100 WBC (Bld) 0.600 % 0.0-0.9 [facility] Comment on above: IG% - Immature Granu locytes (promyelocytes, myelocytes and metamyelocytes) > 1% indicates that a LEFT SHIFT is Present. MCH (RBC) [Entitic mass] 28.9 pg 27.0-32.0 [facility] Nucleated RBC/100 [facility] (Bld) [[facility]] 0 % 0-5 [facility] [Mass/Vol]Or dered By: Smita Buck on 10-03-2022 MCHC (RBC) [Mass/Vol] 31.5 g/dL 32-36 [facility] No Panel InformationOrdered By: Smita Buck on 10-03-2022 Estimated GFR (MDRD) Amer 64 mL/min >60 [facility] Comment on above: GFR Calc Estimated GFR (MDRD) Non-Af Amer 53 mL/min >60 [facility] Comment on above: Non- GFR Calc Platelets bldOrdered By: Christopher Buck on 10-03-2022 Platelets (Bld) [#/Vol] 344 10*3/uL 150-450 [facility] Serum or plasma albumin francisco urement (mass/volume)Ordered By: Smita Buck on 10-03-2022 Albumin [Mass/Vol] 3.8 g/dL 3.2-5.0 [facility] Serum or plasma albumin/glob ulin mass ratioOrdered By: Smita Buck on 10-03-2022 Albumin/Globulin [Mass ratio] 1.1 {ratio} 0.9-2.4 [facility] Serum or plasma calcium francisco urement (mass/volume)Ordered By: Smita Buck on 10-03-2022 Calcium [Mass/Vol] 9.2 mg/dL 8.5-10.1 [facility] Serum or plasma creatinine m easurement (mass/volume)Ordered By: Smita Buck on 10-03-2022 Creatinine [Mass/Vol] 1.10 mg/dL 0.55-1.02 [facility] Comment on above: The validity of the calculated GFR & GFRAA in patients over 70 years has not been determined. Clinical correlation is essential. Serum or plasma urea nitroge n measurement (mass/volume)Ordered By: Smita Buck on 10-03-2022 Urea nitrogen [Mass/Vol] 17 mg/dL 7-18 [facility] Thin prep Papanicolaou smear with manual screeningOrdered By: Smtia Buck on 10-03-2022 Thin prep Papanicolaou smear with manual screening 23 U/L 15-37 [facility] Thin prep Papanicolaou smear with manual screening 4 5-[address] [facility] [address] FOOT WO IVCON LTon [address] [facility] Glucose Glucometer (BldC) [M ass/Vol]Ordered By: Dr. Muniz on 08-26-2022 Glucose [Mass/Vol] 90 mg/dL 74-106 [facility] Comment on above: MANAGEMENT OF PATIEN T CARE PER NURSING PROTOCOL XR FOOT GENERAL 3V AP/LAT/OB L LEFTon 08-18-[address] [facility] Laboratory - Drug toxicology Ordered By: Dr. Ward on 07-13-2022 Amphetamines Ql (U) Negative <1000 ng/mL [facility] Benzodiazepines Ql (U) Negative < 200 ng/mL [facility] Cannabinoids Screen Ql (U) Negative < 50 ng/mL [facility] Cocaine Ql (U) Negative < 300 ng/mL [facility] Opiates Ql (U) Negative < 300 ng/mL [facility] No Panel InformationOrdered By: Dr. Ward on 07-13-2022 MDMA (Ecstasy) Screen Negative < 500 ng/mL [facility] Miscellaneous Test See comment [facility] Comment on above: [id number] 6+OXYCODONE-B UND (ng/mL) DRUG RESULT SCREEN CUTOFF____ Amphetamines,Urine Negative ng/mL 1000 Amphetamine test includes Amphetamine and Methamphetamine.Barbiturates Negative ng/mL 200Benzodiazepines Negative ng/mL 200Cannabinoid Negative ng/mL 20Cocaine (Metab) Negative ng/mL 300Opiates Negative ng/mL 300 Opiates test includes Codeine, Morphine, Hydromorphone, Hydrocodone. Oxycodone/Oxymorphone,Urine Positive ng/mL 300 Test includes Oxydodone and Oxymorphone. Oxycodone PositiveOxycodone Conf,MS,UR 634 ng/mL 300 Oxymorphone Negative 300 TESTING PERFORMED AT [facility]. ORIGINAL REPORT ON FILE IN LAB CONTAINS ADDITIONAL TEST SITE INFORMATION. Urine Barbiturates Screen Negative < 200 ng/mL [facility] Urine Drug Screen Comment [facility] Comment on above: CONFIRMATORY TESTING [...] Urine Methadone Screen Negative < 300 ng/mL [facility] Urine phencyclidine (PCP) de tectionOrdered By: Dr. Ward on 07-13-2022 Phencyclidine Ql (U) Negative < 25 ng/mL [facility] Absolute lymphocyte countOrd ered By: Dr. Buck on 07-06-2022 Lymphocytes Auto (Unsp spec) [#/Vol] 3.31 10*3/uL 0.83-4.51 [facility] Basophil percentageOrdered B y: Dr. Buck on 07-06-2022 Basophils/100 WBC (Bld) 0.3 % 0-1 [facility] Bilirubin [Mass/Vol] 0.30 mg/dL 0.20-1.00 [facility] Comment on above: For patients on eltr ombopag therapy, use of Dimension [place] TBIL is not recommended. Chloride [Moles/Vol] 106 mmol/L 98-107 [facility] Eosinophils/100 WBC (Bld) 2.2 % 0-5 [facility] Glucose [Mass/Vol] 96 mg/dL 74-106 [facility] Neutrophils (Bld) [#/Vol] 4.5 10*3/uL 2.0-7.7 [facility] Neutrophils/100 WBC (Bld) 51.9 % 47-70 [facility] Potassium [Moles/Vol] 4.3 mmol/L 3.5-5.1 [facility] Protein [Mass/Vol] 6.6 g/dL 6.4-8.2 [facility] Sodium [Moles/Vol] 140 mmol/L 136-145 [facility] WBC (Bld) [#/Vol] 8.7 10*3/uL 4.4-11.0 [facility] Blood erythrocytes count (nu mber/volume)Ordered By: Dr. Buck on 07-06-2022 RBC (Bld) [#/Vol] 4.02 10*6/uL 4.2-5.4 [facility] Blood hemoglobin measurement (mass/volume)Ordered By: Dr. Buck on 07-06-2022 Hemoglobin (Bld) [Mass/Vol] 11.6 g/dL 12.0-15.0 [facility] Blood lymphocytes/100 leukoc ytesOrdered By: Dr. Buck on 07-06-2022 Lymphocytes/100 WBC (Bld) 38.0 % 19-41 [facility] Blood monocytes/100 leukocyt esOrdered By: Dr. Buck on 07-06-2022 Monocytes/100 WBC (Bld) 6.9 % 0-10 [facility] Blood platelet mean volumeOr dered By: Dr. Buck on 07-06-2022 Platelet mean volume (Bld) [Entitic vol] 11.4 fL 6.2-12.0 [facility] Determination of erythrocyte mean corpuscular volume (MCV)Ordered By: Dr. Buck on 07-06-2022 MCV (RBC) [Entitic vol] 90.0 fL 81-99 [facility] Hematocrit Auto (Bld) [Volum e fraction]Ordered By: Dr. Buck on 07-06-2022 Hematocrit (Bld) [Volume fraction] 36.2 % 37-47 [facility] Laboratory - Chemistry and C hemistry - challengeOrdered By: Dr. Buck on 07-06-2022 ALP [Catalytic activity/Vol] 55 U/L 45-117 [facility] ALT [Catalytic activity/Vol] 25 U/L 13-56 [facility] CO2 [Moles/Vol] 27.0 mmol/L 21.0-32.0 [facility] Globulin (S) [Mass/Vol] 2.9 g/dL 2.2-4.2 [facility] Urea nitrogen/Creatinine [Mass ratio] 14.5 mg/mg 10-20 [facility] Laboratory - Hematology and Cell countsOrdered By: Dr. Buck on 07-06-2022 Erythrocyte distribution width (RBC) [Entitic vol] 43.9 fL 35.1-43.9 [facility] Erythrocyte distribution width (RBC) [Ratio] 13.3 % 11.6-14.6 [facility] Immature granulocytes/100 WBC (Bld) 0.700 % 0.0-0.9 [facility] Comment on above: IG% - Immature Granu locytes (promyelocytes, myelocytes and metamyelocytes) > 1% indicates that a LEFT SHIFT is Present. MCH (RBC) [Entitic mass] 28.9 pg 27.0-32.0 [facility] Nucleated RBC/100 WBC (Bld) [Ratio] 0 % 0-5 [facility] MCHC Auto (RBC) [Mass/Vol]Or dered By: Dr. Buck on 07-06-2022 MCHC (RBC) [Mass/Vol] 32.0 g/dL 32-36 [facility] No Panel InformationOrdered By: Dr. Buck on 07-06-2022 Estimated GFR (MDRD) Amer 64 mL/min >60 [facility] Comment on above: GFR Calc Estimated GFR (MDRD) Non-Af Amer 53 mL/min >60 [facility] Comment on above: Non- GFR Calc Platelets bldOrdered By: Dr. Buck on 07-06-2022 Platelets (Bld) [#/Vol] 307 10*3/uL 150-450 [facility] Serum or plasma albumin francisco urement (mass/volume)Ordered By: Dr. Buck on 07-06-2022 Albumin [Mass/Vol] 3.7 g/dL 3.2-5.0 [facility] Serum or plasma albumin/glob ulin mass ratioOrdered By: Dr. Buck on 07-06-2022 Albumin/Globulin [Mass ratio] 1.3 {ratio} 0.9-2.4 [facility] Serum or plasma calcium francisco urement (mass/volume)Ordered By: Dr. Buck on 07-06-2022 Calcium [Mass/Vol] 9.1 mg/dL 8.5-10.1 [facility] Serum or plasma creatinine m easurement (mass/volume)Ordered By: Dr. Buck on 07-06-2022 Creatinine [Mass/Vol] 1.10 mg/dL 0.55-1.02 [facility] Comment on above: The validity of the calculated GFR & GFRAA in patients over 70 years has not been determined. Clinical correlation is essential. Serum or plasma urea nitroge n measurement (mass/volume)Ordered By: Dr. Buck on 07-06-2022 Urea nitrogen [Mass/Vol] 16 mg/dL 7-18 [facility] Thin prep Papanicolaou smear with manual screeningOrdered By: Dr. Buck on 07-06-2022 Thin prep Papanicolaou smear with manual screening 18 U/L 15-37 [facility] Thin prep Papanicolaou smear with manual screening 7 5-15 [facility] XR Foot - left AP and Latera l and obliqueon 07-05-2022 IMPRESSION: 1. Remote fracture deformities of the proximal fourth and distal fifth metatarsal shaft, as described. 2. Hallux valgus deformity. 3. Degenerative changes as described [facility]: CHERELLE Transcribe Date/Time: Jul 05 2022 2:55P Dictated by : EDGAR CARABALLO MD This examination was interpreted and the report reviewed and electronically signed by: EDGAR CARABALLO MD on Jul 05 2022 3:01PM [facility] DIVISION OF RADIOLOGY * * *Final [...] and subchondral sclerosis. DIVISION OF RADIOLOGY Provider, Manisha odonnell [place] - 07/05/2022 * * *Final Report* * [...] valgus deformity. 3. Degenerative changes as described [facility]: [facility] Transcribe Date/Time: Jul 05 2022 2:55P Dictated by : EDGAR CARABALLO MD This examination was interpreted and the report reviewed and electronically signed by: EDGAR CARABALLO MD on Jul 05 2022 3:01PM EST [facility] XR Foot - left AP and Latera l and obliqueOrdered By: [facility] Provider on 07-05-[address] [facility] XR Foot - left AP and Latera l and obliqueon 07-04-2022 Radiology Study observation (narrative) [facility] SURGICAL PATHOLOGYon 022 Case Report Surgical Pathology R eport Case: [id number] Authorizing Provider: Gwen Blakely MD Collected: 05/27/2022 09:04 AM Ordering Location: Ambulatory Surgery Received: 05/27/2022 04:43 PM Pathologist: Alex Akbar MD Specimen: COLON BIOPSY, Random colon bx'[id number] [facility] Diagnosis Comment Patchy neutrophilic inflammation is seen involving epithelium and lamina propria. The differential diagnosis for this pattern of neutrophilic inflammation includes infection, medication related injury (including NSAID), and bowel preparation artifact. No evidence of lymphocytic or collagenous colitis is seen. [facility] FINAL DIAGNOSIS A. Colon, random, bi opsy: -Patchy active colitis, see comment. -Melanosis coli. [facility] Gross Description A. COLON BIOPSY Received in formalin are multiple pieces of fierro, soft tissue aggregating to 1.6 x 0.5 x 0.2 cm. Totally submitted in two cassettes. Gross examination performed at [facility], [address] [place] [address] JT 05/27/2022 10:[address] [facility] Performing Lab Diagnostic interpret ation performed at [facility], [facility] [place] [address] CLIA# [id number] Motor Polarizer: Rudolph Delcid M.D. [facility] COLONOSCOPY DIAGNOSTICon [facility] Absolute lymphocyte counton 03-11-2022 Lymphocytes Auto (Unsp spec) [#/Vol] 3.26 10*3/uL 0.83-4.51 [facility] Work Phone: Basophil percentageon 2021 Basophils/100 WBC (Bld) 0.4 % 0-1 [facility] Work Phone: Bilirubin [Mass/Vol] 0.40 mg/dL 0.20-1.00 [facility] Work Phone: Comment on above: For patients on eltr ombopag therapy, use of Dimension [place] TBIL is not recommended. Chloride [Moles/Vol] 106 mmol/L 98-107 [facility] Work Phone: Eosinophils/100 WBC (Bld) 2.3 % 0-5 [facility] Work Phone: Glucose [Mass/Vol] 93 mg/dL 74-106 [facility] Work Phone: [phone] Neutrophils (Bld) [#/Vol] 5.1 10*3/uL 2.0-7.7 [facility] Work Phone: [phone] Neutrophils/100 WBC (Bld) 55.1 % 47-70 [facility] Work Phone: [phone] Potassium [Moles/Vol] 4.1 mmol/L 3.5-5.1 [facility] Work Phone: [phone] Comment on above: Slight Hemolysis, Re sult may be falsely increased. Protein [Mass/Vol] 7.3 g/dL 6.4-8.2 [facility] Work Phone: [phone] Sodium [Moles/Vol] 141 mmol/L 136-145 [facility] Work Phone: [phone] WBC (Bld) [#/Vol] 9.2 10*3/uL 4.4-11.0 [facility] Work Phone: [phone] Blood erythrocytes count (nu mber/volume)on 03-11-2022 RBC (Bld) [#/Vol] 4.22 10*6/uL 4.2-5.4 [facility] Work Phone: Blood hemoglobin measurement (mass/volume)on 03-11-2022 Hemoglobin (Bld) [Mass/Vol] 12.3 g/dL 12.0-15.0 [facility] Work Phone: Blood lymphocytes/100 leukoc yteson 03-11-2022 Lymphocytes/100 WBC (Bld) 35.3 % 19-41 [facility] Work Phone: Blood monocytes/100 leukocyt eson 03-11-2022 Monocytes/100 WBC (Bld) 6.4 % 0-10 [facility] Work Phone: [phone] Blood platelet mean volumeon 03-11-2022 Platelet mean volume (Bld) [Entitic vol] 11.4 fL 6.2-12.0 [facility] Work Phone: Determination of erythrocyte mean corpuscular volume (MCV)on 03-11-2022 MCV (RBC) [Entitic vol] 91.9 fL 81-99 [facility] Work Phone: Hematocrit Auto (Bld) [Volum e fraction]on 03-11-2022 Hematocrit (Bld) [Volume fraction] 38.8 % 37-47 [facility] Work Phone: Laboratory - Chemistry and C hemistry - challengeon 03-11-2022 ALP [Catalytic activity/Vol] 62 U/L 45-117 [facility] Work Phone: ALT [Catalytic activity/Vol] 27 U/L 13-56 [facility] Work Phone: CO2 [Moles/Vol] 26.0 mmol/L 21.0-32.0 [facility] Work Phone: Globulin (S) [Mass/Vol] 3.7 g/dL 2.2-4.2 [facility] Work Phone: Urea nitrogen/Creatinine [Mass ratio] 16.7 mg/mg 10-20 [facility] Work Phone: Laboratory - Hematology and Cell countson 03-11-2022 Erythrocyte distribution width (RBC) [Entitic vol] 50.2 fL 35.1-43.9 [facility] Work Phone: Erythrocyte distribution width (RBC) [Ratio] 14.6 % 11.6-14.6 [facility] Work Phone: Immature granulocytes/100 WBC (Bld) 0.500 % 0.0-0.9 [facility] Work Phone: Comment on above: IG% - Immature Granu locytes (promyelocytes, myelocytes and metamyelocytes) > 1% indicates that a LEFT SHIFT is Present. MCH (RBC) [Entitic mass] 29.1 pg 27.0-32.0 [facility] Work Phone: Nucleated RBC/100 WBC (Bld) [Ratio] 0 % 0-5 [facility] Work Phone: MCHC Auto (RBC) [Mass/Vol]on 03-11-2022 MCHC (RBC) [Mass/Vol] 31.7 g/dL 32-36 [facility] Work Phone: No Panel Informationon 03-11 Estimated GFR (MDRD) Amer 66 mL/min >60 [facility] Work Phone: Comment on above: GFR Calc Estimated GFR (MDRD) Non-Af Amer 54 mL/min >60 [facility] Work Phone: Comment on above: Non- GFR Calc Platelets bldon 03-11-2022 Platelets (Bld) [#/Vol] 285 10*3/uL 150-450 [facility] Work Phone: Serum or plasma albumin francisco urement (mass/volume)on 03-11-2022 Albumin [Mass/Vol] 3.6 g/dL 3.2-5.0 [facility] Work Phone: Serum or plasma albumin/glob ulin mass ratioon 03-11-2022 Albumin/Globulin [Mass ratio] 1.0 {ratio} 0.9-2.4 [facility] Work Phone: Serum or plasma calcium francisco urement (mass/volume)on 03-11-2022 Calcium [Mass/Vol] 9.5 mg/dL 8.5-10.1 [facility] Work Phone: Serum or plasma creatinine m easurement (mass/volume)on 03-11-2022 Creatinine [Mass/Vol] 1.08 mg/dL 0.55-1.02 [facility] Work Phone: Comment on above: The validity of the calculated GFR & GFRAA in patients over 70 years has not been determined. Clinical correlation is essential. Serum or plasma urea nitroge n measurement (mass/volume)on 03-11-2022 Urea nitrogen [Mass/Vol] 18 mg/dL 7-18 [facility] Work Phone: Thin prep Papanicolaou smear with manual screeningon 03-11-2022 Thin prep Papanicolaou smear with manual screening 21 U/L 15-37 [facility] Work Phone: Comment on above: Slight Hemolysis, Re sult may be falsely increased. Thin prep Papanicolaou smear with manual screening 9 5-15 [facility] Work Phone: XR Foot - left AP and Latera l and obliqueon 12-20-2021 IMPRESSION: No acute fracture. 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 Remote healed fracture of the distal shaft of the left fifth metatarsal. [facility]: CHERELLE Transcribe Date/Time: Dec 20 2021 11:03A [...] calcaneal spur. ZZZ_DO_NOT_US E_DIVISION OF RADIOLOGY Provider, [facility] Charles odonnell [place] - 12/20/2021 * * *Final Report* * [...] distal shaft of the left fifth metatarsal. [facility] Winder: CHERELLE Transcribe Date/Time: Dec 20 2021 11:03A Dictated by : CAITLIN PHELPS MD This examination was interpreted and the report reviewed and electronically signed by: CAITLIN PHELPS MD on Dec 20 2021 11:17AM EST [facility] No Panel Informationon 12-17 Radiology Study observation (narrative) [facility] XR Chest PA and Lateralon IMPRESSION: No acute radiographic abnormality. [facility] Winder: [employer] Transcribe Date/Time: Dec 17 2021 4:29P Dictated by : BALTA MARQUEZ MD This examination was interpreted and the report reviewed and electronically signed by: BALTA MARQUEZ MD on Dec 17 2021 4:30PM EST PabloZZ_DO_NOT_US E_DIVISION OF RADIOLOGY * * *Final Report* [...] the spine. ZZZ_DO_NOT_US E_DIVISION OF RADIOLOGY Provider, [facility] [place] - 12/17/2021 * * *Final Report* * [...] spine. IMPRESSION IMPRESSION: No acute radiographic abnormality. [facility] Winder: [employer] Transcribe Date/Time: Dec 17 2021 4:29P Dictated by : BALTA MARQUEZ MD This examination was interpreted and the report reviewed and electronically signed by: BALTA MARQUEZ MD on Dec 17 2021 4:30PM EST [facility] XR Chest PA and LateralOrder ed By: [facility] Provider on 12-17-[address] [facility] Absolute lymphocyte counton 12-10-2021 Lymphocytes Auto (Unsp spec) [#/Vol] 3.94 10*3/uL 0.83-4.51 [facility] Work Phone: Basophil percentageon 2021 Basophils/100 WBC (Bld) 0.7 % 0-1 [facility] Work Phone: Bilirubin [Mass/Vol] 0.30 mg/dL 0.20-1.00 [facility] Work Phone: Comment on above: For patients on eltr ombopag therapy, use of Dimension [place] TBIL is not recommended. Chloride [Moles/Vol] 106 mmol/L 98-107 [facility] Work Phone: Eosinophils/100 WBC (Bld) 3.0 % 0-5 [facility] Work Phone: Glucose [Mass/Vol] 101 mg/dL 74-106 [facility] Work Phone: Comment on above: Fasting Glucose resu lt from 100 to 125 mg/dL suggests IMPAIRED HOMEOSTASIS per A.D.A. criteria. Neutrophils (Bld) [#/Vol] 4.5 10*3/uL 2.0-7.7 [facility] Work Phone: Neutrophils/100 WBC (Bld) 46.9 % 47-70 [facility] Work Phone: Potassium [Moles/Vol] 3.9 mmol/L 3.5-5.1 [facility] Work Phone: Protein [Mass/Vol] 7.4 g/dL 6.4-8.2 [facility] Work Phone: Sodium [Moles/Vol] 137 mmol/L 136-145 [facility] Work Phone: WBC (Bld) [#/Vol] 9.7 10*3/uL 4.4-11.0 [facility] Work Phone: [phone] Blood erythrocytes count (nu mber/volume)on 12-10-2021 RBC (Bld) [#/Vol] 4.63 10*6/uL 4.2-5.4 [facility] Work Phone: Blood hemoglobin measurement (mass/volume)on 12-10-2021 Hemoglobin (Bld) [Mass/Vol] 13.0 g/dL 12.0-15.0 [facility] Work Phone: Blood lymphocytes/100 leukoc yteson 12-10-2021 Lymphocytes/100 WBC (Bld) 40.6 % 19-41 [facility] Work Phone: [phone] Blood monocytes/100 leukocyt eson 12-10-2021 Monocytes/100 WBC (Bld) 7.7 % 0-10 [facility] Work Phone: Blood platelet mean volumeon 12-10-2021 Platelet mean volume (Bld) [Entitic vol] 10.7 fL 6.2-12.0 [facility] Work Phone: Determination of erythrocyte mean corpuscular volume (MCV)on 12-10-2021 MCV (RBC) [Entitic vol] 89.0 fL 81-99 [facility] Work Phone: Hematocrit Auto (Bld) [Volum e fraction]on 12-10-2021 Hematocrit (Bld) [Volume fraction] 41.2 % 37-47 [facility] Work Phone: Laboratory - Chemistry and C hemistry - challengeon 12-10-2021 ALP [Catalytic activity/Vol] 81 U/L 45-117 [facility] Work Phone: ALT [Catalytic activity/Vol] 32 U/L 13-56 [facility] Work Phone: CO2 [Moles/Vol] 24.0 mmol/L 21.0-32.0 [facility] Work Phone: Globulin (S) [Mass/Vol] 3.7 g/dL 2.2-4.2 [facility] Work Phone: Urea nitrogen/Creatinine [Mass ratio] 13.7 mg/mg 10-20 [facility] Work Phone: Laboratory - Hematology and Cell countson 12-10-2021 Erythrocyte distribution width (RBC) [Entitic vol] 44.1 fL 35.1-43.9 [facility] Work Phone: Erythrocyte distribution width (RBC) [Ratio] 13.5 % 11.6-14.6 [facility] Work Phone: Immature granulocytes/100 WBC (Bld) 1.100 % 0.0-0.9 [facility] Work Phone: Comment on above: IG% - Immature Granu locytes (promyelocytes, myelocytes and metamyelocytes) > 1% indicates that a LEFT SHIFT is Present. MCH (RBC) [Entitic mass] 28.1 pg 27.0-32.0 [facility] Work Phone: Nucleated RBC/100 WBC (Bld) [Ratio] 0 % 0-5 [facility] Work Phone: MCHC Auto (RBC) [Mass/Vol]on 12-10-2021 MCHC (RBC) [Mass/Vol] 31.6 g/dL 32-36 [facility] Work Phone: No Panel Informationon 12-10 Estimated GFR (MDRD) Amer 70 mL/min >60 [facility] Work Phone: Comment on above: GFR Calc Estimated GFR (MDRD) Non-Af Amer 58 mL/min >60 [facility] Work Phone: Comment on above: Non- GFR Calc Platelets bldon 12-10-2021 Platelets (Bld) [#/Vol] 338 10*3/uL 150-450 [facility] Work Phone: Serum or plasma albumin francisco urement (mass/volume)on 12-10-2021 Albumin [Mass/Vol] 3.7 g/dL 3.2-5.0 [facility] Work Phone: Serum or plasma albumin/glob ulin mass ratioon 12-10-2021 Albumin/Globulin [Mass ratio] 1.0 {ratio} 0.9-2.4 [facility] Work Phone: Serum or plasma calcium francisco urement (mass/volume)on 12-10-2021 Calcium [Mass/Vol] 8.9 mg/dL 8.5-10.1 [facility] Work Phone: Serum or plasma creatinine m easurement (mass/volume)on 12-10-2021 Creatinine [Mass/Vol] 1.02 mg/dL 0.55-1.02 [facility] Work Phone: Comment on above: The validity of the calculated GFR & GFRAA in patients over 70 years has not been determined. Clinical correlation is essential. Serum or plasma urea nitroge n measurement (mass/volume)on 12-10-2021 Urea nitrogen [Mass/Vol] 14 mg/dL 7-18 [facility] Work Phone: Thin prep Papanicolaou smear with manual screeningon 12-10-2021 Thin prep Papanicolaou smear with manual screening 25 U/L 15-37 [facility] Work Phone: Thin prep Papanicolaou smear with manual screening 7 5-15 [facility] Work Phone: [phone] Absolute lymphocyte counton 09-17-2021 Lymphocytes Auto (Unsp spec) [#/Vol] 3.55 10*3/uL 0.83-4.51 [facility] Work Phone: Basophil percentageon 2021 Basophils/100 WBC (Bld) 0.4 % 0-1 [facility] Work Phone: Bilirubin [Mass/Vol] 0.30 mg/dL 0.20-1.00 [facility] Work Phone: [phone] Comment on above: For patients on eltr ombopag therapy, use of Dimension [place] TBIL is not recommended. Chloride [Moles/Vol] 104 mmol/L 98-107 [facility] Work Phone: Eosinophils/100 WBC (Bld) 0.5 % 0-5 [facility] Work Phone: Glucose [Mass/Vol] 99 mg/dL 74-106 [facility] Work Phone: [phone] Neutrophils (Bld) [#/Vol] 7.7 10*3/uL 2.0-7.7 [facility] Work Phone: Neutrophils/100 WBC (Bld) 62.6 % 47-70 [facility] Work Phone: [phone] Potassium [Moles/Vol] 4.4 mmol/L 3.5-5.1 [facility] Work Phone: [phone] Comment on above: Slight Hemolysis, Re sult may be falsely increased. Protein [Mass/Vol] 6.8 g/dL 6.4-8.2 [facility] Work Phone: Sodium [Moles/Vol] 137 mmol/L 136-145 [facility] Work Phone: WBC (Bld) [#/Vol] 12.3 10*3/uL 4.4-11.0 [facility] Work Phone: Blood erythrocytes count (nu mber/volume)on 09-17-2021 RBC (Bld) [#/Vol] 4.33 10*6/uL 4.2-5.4 [facility] Work Phone: Blood hemoglobin measurement (mass/volume)on 09-17-2021 Hemoglobin (Bld) [Mass/Vol] 12.3 g/dL 12.0-15.0 [facility] Work Phone: Blood lymphocytes/100 leukoc yteson 09-17-2021 Lymphocytes/100 WBC (Bld) 28.9 % 19-41 [facility] Work Phone: Blood monocytes/100 leukocyt eson 09-17-2021 Monocytes/100 WBC (Bld) 6.8 % 0-10 [facility] Work Phone: Blood platelet mean volumeon 09-17-2021 Platelet mean volume (Bld) [Entitic vol] 12.0 fL 6.2-12.0 [facility] Work Phone: Determination of erythrocyte mean corpuscular volume (MCV)on 09-17-2021 MCV (RBC) [Entitic vol] 88.2 fL 81-99 [facility] Work Phone: Hematocrit Auto (Bld) [Volum e fraction]on 09-17-2021 Hematocrit (Bld) [Volume fraction] 38.2 % 37-47 [facility] Work Phone: Laboratory - Chemistry and C hemistry - challengeon 09-17-2021 ALP [Catalytic activity/Vol] 83 U/L 45-117 [facility] Work Phone: ALT [Catalytic activity/Vol] 26 U/L 13-56 [facility] Work Phone: CO2 [Moles/Vol] 25.0 mmol/L 21.0-32.0 [facility] Work Phone: Globulin (S) [Mass/Vol] 3.1 g/dL 2.2-4.2 [facility] Work Phone: Urea nitrogen/Creatinine [Mass ratio] 22.2 mg/mg 10-20 [facility] Work Phone: Laboratory - Hematology and Cell countson 09-17-2021 Erythrocyte distribution width (RBC) [Entitic vol] 44.9 fL 35.1-43.9 [facility] Work Phone: Erythrocyte distribution width (RBC) [Ratio] 13.9 % 11.6-14.6 [facility] Work Phone: Immature granulocytes/100 WBC (Bld) 0.800 % 0.0-0.9 [facility] Work Phone: Comment on above: IG% - Immature Granu locytes (promyelocytes, myelocytes and metamyelocytes) > 1% indicates that a LEFT SHIFT is Present. MCH (RBC) [Entitic mass] 28.4 pg 27.0-32.0 [facility] Work Phone: Nucleated RBC/100 WBC (Bld) [Ratio] 0 % 0-5 [facility] Work Phone: MCHC Auto (RBC) [Mass/Vol]on 09-17-2021 MCHC (RBC) [Mass/Vol] 32.2 g/dL 32-36 [facility] Work Phone: No Panel Informationon 09-17 Estimated GFR (MDRD) Amer 91 mL/min >60 [facility] Work Phone: Comment on above: GFR Calc Estimated GFR (MDRD) Non-Af Amer 76 mL/min >60 [facility] Work Phone: Comment on above: Non- GFR Calc Platelets bldon 09-17-2021 Platelets (Bld) [#/Vol] 275 10*3/uL 150-450 [facility] Work Phone: Serum or plasma albumin francisco urement (mass/volume)on 09-17-2021 Albumin [Mass/Vol] 3.7 g/dL 3.2-5.0 [facility] Work Phone: Serum or plasma albumin/glob ulin mass ratioon 09-17-2021 Albumin/Globulin [Mass ratio] 1.2 {ratio} 0.9-2.4 [facility] Work Phone: Serum or plasma calcium francisco urement (mass/volume)on 09-17-2021 Calcium [Mass/Vol] 8.9 mg/dL 8.5-10.1 [facility] Work Phone: Serum or plasma creatinine m easurement (mass/volume)on 09-17-2021 Creatinine [Mass/Vol] 0.81 mg/dL 0.55-1.02 [facility] Work Phone: Comment on above: The validity of the calculated GFR & GFRAA in patients over 70 years has not been determined. Clinical correlation is essential. Serum or plasma urea nitroge n measurement (mass/volume)on 09-17-2021 Urea nitrogen [Mass/Vol] 18 mg/dL 7-18 [facility] Work Phone: Thin prep Papanicolaou smear with manual screeningon 09-17-2021 Thin prep Papanicolaou smear with manual screening 20 U/L 15-37 [facility] Work Phone: Comment on above: Slight Hemolysis, Re sult may be falsely increased. Thin prep Papanicolaou smear with manual screening 8 5-15 [facility] Work Phone: Office Visit: Spine Visiton 01-17-2017 Dietary management education, guidance, and counseling (procedure) yes Invalid Interpretation Code [facility] Work Phone: Documentation of current medications (procedure) Done Invalid Interpretation Code [facility] Work Phone: [phone] Tobacco use CPHS Never smoker Invalid Interpretation Code [facility] Work Phone: [phone] Office Visit: Spine Visiton 09-26-2016 [facility] conc [facility] Work Phone: [phone] Tobacco smoking status NHIS Never smoker [facility] Work Phone: [phone] Microbiology: MRSA+SAID SCRN on 04-16-2014 GE use only - for [employer] import when terms are not otherwise specified Negative Normal [facility] Work Phone: [phone] MRSA+SAID SCRN Negative Normal [facility] Work Phone: [phone] Lab Report: BMPon 04-15-2014 Anion gap 4 mmol/L Low 5-15 [facility] Work Phone: [phone] Anion gap molar conc 4 mmol/L Low 5-15 [facility] Work Phone: [phone] Calcium mass conc 8.9 mg/dL Normal 8.5-10.1 [facility] Work Phone: [phone] Chloride molar conc 104 mmol/L Normal 98-107 [facility] Work Phone: [phone] CO2 31.0 mmol/L Normal 21.0-32.0 [facility] Work Phone: [phone] CO2 ppres (BldV) 31.0 mmol/L Normal 21.0-32.0 [facility] Work Phone: [phone] Creatinine mass conc 1.0 mg/dL Normal 0.6-1.0 [facility] Work Phone: [phone] eGFR (non-black) 74 mL/min/{1.73_m2} Normal >60 [facility] Work Phone: [phone] GFR/1.73 sq M predicted among non-blacks MDRD vol rate/area (S/P/Bld) 61 mL/min/{1.73_m2} Normal >60 [facility] Work Phone: [phone] GFRAA 74 mL/min Normal >60 [facility] Work Phone: [phone] Glucose 82 mg/dL Normal 70-110 [facility] Work Phone: [phone] Glucose mass conc 82 mg/dL Normal 70-110 [facility] Work Phone: [phone] Potassium molar conc 3.5 mmol/L Normal 3.5-5.1 [facility] Work Phone: 1() 0 Sodium molar conc 139 mmol/L Normal 136-145 [facility] Work Phone: 1() 0 Urea nitrogen mass conc 12 mg/dL Normal 7-18 [facility] Work Phone: [phone] Urea nitrogen/Creatinine mass ratio 12.0 RATIO Normal 10-20 [facility] Work Phone: [phone] Lab Report: CBCDon 4 Absolute Neutrophil count 4.6 X10 3/UL Normal 2.0-7.7 [facility] Work Phone: [phone] ANC 4.6 X10 3/UL Normal 2.0-7.7 [facility] Work Phone: [phone] Basophils/100 leukocytes 0.5 % Normal 0-1 [facility] Work Phone: [phone] Basophils/100 WBC (Bld) 0.5 % Normal 0-1 [facility] Work Phone: [phone] Eosinophils/100 leukocytes 3.8 % Normal 0-5 [facility] Work Phone: [phone] Eosinophils/100 WBC (Bld) 3.8 % Normal 0-5 [facility] Work Phone: [phone] Erythrocytes (RBC) 4.62 10*6/uL Normal 4.2-5.4 [facility] Work Phone: [phone] Hematocrit (HCT) 42.9 % Normal 37-47 [facility] Work Phone: 1() 0 Hematocrit Volume Fraction (Bld) 42.9 % Normal 37-47 [facility] Work Phone: [phone] Hemoglobin mass conc (Bld) 14.1 g/dL Normal 12.0-15.0 [facility] Work Phone: 1() 0 Lymphocytes/100 leukocytes 39.8 % Normal 19-41 [facility] Work Phone: 1() 0 Lymphocytes/100 WBC (Bld) 39.8 % Normal 19-41 [facility] Work Phone: 1() 0 MCH 30.5 pg Normal 27.0-32.0 [facility] Work Phone: [phone] MCH Entitic mass (RBC) 30.5 pg Normal 27.0-32.0 [facility] Work Phone: [phone] MCHC 32.9 G/GL Normal 32-36 [facility] Work Phone: 1() 0 MCHC mass conc (RBC) 32.9 G/GL Normal 32-36 [facility] Work Phone: [phone] MCV 92.9 fL Normal 81-99 [facility] Work Phone: [phone] MCV Entitic volume (RBC) 92.9 fL Normal 81-99 [facility] Work Phone: [phone] Monocytes/100 leukocytes 7.6 % Normal 0-10 [facility] Work Phone: [phone] Monocytes/100 WBC (Bld) 7.6 % Normal 0-10 [facility] Work Phone: [phone] Neutrophils/100 leukocytes 47.9 % Normal 47-70 [facility] Work Phone: [phone] Neutrophils/100 WBC (Bld) 47.9 % Normal 47-70 [facility] Work Phone: [phone] Platelet mean volume Entitic volume (Bld) 10.3 fL Normal 6.2-12.0 [facility] Work Phone: [phone] Platelets 254 10*3/mm3 Normal 150-450 [facility] Work Phone: [phone] Platelets #/vol (Bld) 254 10*3/mm3 Normal 150-450 [facility] Work Phone: [phone] PMV by Brendon 10.3 fL Normal 6.2-12.0 [facility] Work Phone: [phone] RBC #/vol (Bld) 4.62 10*6/uL Normal 4.2-5.4 [facility] Work Phone: [phone] WBC #/vol (Bld) 9.6 10*3/uL Normal 4.4-11.0 [facility] Work Phone: [phone] WBC (Leukocytes) 9.6 10*3/uL Normal 4.4-11.0 [facility] Work Phone: [phone] Lab Report: CMPon 04-07-2014 Albumin mass conc 3.6 g/dL Normal 3.4-5.0 [facility] Work Phone: [phone] Albumin/Globulin mass ratio 1 {ratio} Normal 0.9-2.4 [facility] Work Phone: [phone] ALT enzyme act/vol 25 U/L Normal 12-78 [facility] Work Phone: [phone] AST enzyme act/vol 15 U/L Normal 15-37 [facility] Work Phone: [phone] Bilirubin mass conc 0.30 mg/dL Normal 0.00-4.00 [facility] Work Phone: [phone] Globulin 3.7 g/dL Normal 2.7-4.2 [facility] Work Phone: [phone] Globulin mass conc (S) 3.7 g/dL Normal 2.7-4.2 [facility] Work Phone: [phone] Protein mass conc 7.3 g/dL Normal 6.4-8.2 [facility] Work Phone: [phone] Vital Signs Date Time Vital Sign Value Performing Clinician Facility 11-29-2024 13:07-0400 Body mass index (BMI) [Ratio] 31.64 kg/m2 Mikayla Strange MD Work Phone: [facility] 11-29-2024 13:07-0400 Body weight 91.63 kg Mikayla Strange MD Work Phone: [facility] 11-29-2024 13:07-0400 Diastolic blood pressure 62 mm[Hg] Mikayla Strange MD Work Phone: [facility] 11-29-2024 13:07-0400 Heart rate 75 /min Mikayla Strange MD Work Phone: [facility] 11-29-2024 13:07-0400 SaO2% (BldA) [Mass fraction] 98 % Mikayla Strange MD Work Phone: [facility] 11-29-2024 13:07-0400 Systolic blood pressure 102 mm[Hg] Mikayla Strange MD Work Phone: [facility] 11-25-2024 13:35-0400 Body height 170.2 cm Sydni Waggoner MD Work Phone: [facility] 11-25-2024 13:35-0400 Body mass index (BMI) [Ratio] 31.48 kg/m2 Sydni Waggoner MD Work Phone: [facility] 11-25-2024 13:35-0400 Body weight 91.17 kg Sydni Waggoner MD Work Phone: [facility] 11-25-2024 13:35-0400 Respiratory rate 18 /min Sydni Waggoner MD Work Phone: [facility] 11-21-2024 13:25-0400 Body height 165.[address] Mikayla Strange MD Work Phone: [facility] 11-21-2024 13:25-0400 Body mass index (BMI) [Ratio] 33.3 kg/m2 Dr. Mikayla Strange MD Work Phone: [facility] 11-21-2024 13:25-0400 Body weight 90.[address] Mikayla tSrange MD Work Phone: [facility] 11-11-2024 13:24-0400 Body height 165.[address] Mikayla Strange MD Work Phone: [facility] 11-11-2024 13:24-0400 Body mass index (BMI) [Ratio] 33.3 kg/m2 Dr. Mikayla Strange MD Work Phone: [facility] 11-11-2024 13:24-0400 Body weight 90.[address] Mikayla Strange MD Work Phone: [facility] 10-22-2024 13:29-0400 Diastolic blood pressure 62 mm[Hg] Sayda Carr CHAINSTITCH FELLED SEAM OPERATOR.INSPECTOR AND HAND PACKAGER Work Phone: [facility] 10-22-2024 13:29-0400 Heart rate 71 /min Sayda Carr CHAINSTITCH FELLED SEAM OPERATOR.INSPECTOR AND HAND PACKAGER Work Phone: [facility] 10-22-2024 13:29-0400 Respiratory rate 16 /min Sayda Carr CHAINSTITCH FELLED SEAM OPERATOR.INSPECTOR AND HAND PACKAGER Work Phone: [facility] 10-22-2024 13:29-0400 SaO2% (BldA) [Mass fraction] 99 % Sayda Carr CHAINSTITCH FELLED SEAM OPERATOR.INSPECTOR AND HAND PACKAGER Work Phone: [facility] 10-22-2024 13:29-0400 Systolic blood pressure 108 mm[Hg] Sayda Carr RAY Work Phone: [facility] 10-21-2024 14:18-0400 Body height 170.2 cm Ga Blackburn PA-C Work Phone: [facility] 10-21-2024 14:18-0400 Body mass index (BMI) [Ratio] 31.64 kg/m2 Ga Blackburn PA-C Work Phone: [facility] 10-21-2024 14:18-0400 Body weight 91.63 kg Ga Blackburn PA-C Work Phone: [facility] 10-21-2024 14:18-0400 Respiratory rate 20 /min Ga Blackburn PA-C Work Phone: [facility] 08-14-2024 15:06-0500 Body mass index (BMI) [Ratio] 31.64 kg/m2 Mikayla Strange MD Work Phone: [facility] 08-14-2024 15:06-0500 Body temperature 98.91 [degF] Mikayla Strange MD Work Phone: [facility] 08-14-2024 15:06-0500 Body weight 91.63 kg Mikayla Strange MD Work Phone: [facility] 08-14-2024 15:06-0500 Diastolic blood pressure 62 mm[Hg] Mikayla Strange MD Work Phone: [facility] 08-14-2024 15:06-0500 Heart rate 69 /min Mikayla Strange MD Work Phone: [facility] 08-14-2024 15:06-0500 SaO2% (BldA) [Mass fraction] 99 % Mikayla Strange MD Work Phone: [facility] 08-14-2024 15:06-0500 Systolic blood pressure 122 mm[Hg] Mikayla Strange MD Work Phone: [facility] 07-22-2024 14:52-0500 Body height 170.2 cm Sydni Waggoner MD Work Phone: [facility] 07-22-2024 14:52-0500 Body mass index (BMI) [Ratio] 31.32 kg/m2 Sydni Waggoner MD Work Phone: [facility] 07-22-2024 14:52-0500 Body weight 90.72 kg Sydni Waggoner MD Work Phone: [facility] 07-22-2024 14:52-0500 Respiratory rate 18 /min Sydni Waggoner MD Work Phone: [facility] 06-24-2024 18:00-0500 Heart rate 81 /min Dr. Mikayla Strange MD Work Phone: [phone])809-684865 [place] [address] 06-24-2024 18:00-0500 Respiratory rate 18 /min Dr. Mikayla Strange MD Work Phone: 5(776)470-894865 [place] [address] 06-24-2024 18:00-0500 SaO2% (BldA) [Mass fraction] 98 % Dr. Mikayla Strange MD Work Phone: [phone](402)884-271665 [place] [address] 06-24-2024 14:24-0500 Body temperature 98.8 [degF] Dr. Mikayla Strange MD Work Phone: 7(443)156-606265 [place] [address] 06-24-2024 14:24-0500 Diastolic blood pressure 63 mm[Hg] Dr. Mikayla Strange MD Work Phone: 5(234)780-800965 [place] [address] 06-24-2024 14:24-0500 Systolic blood pressure 127 mm[Hg] Dr. Mikayla Strange MD Work Phone: 0(608)403-310165 [place] [address] 06-24-2024 13:20-0500 Body height 165.[address] Mikayla Strange MD Work Phone: 7([phone])487-967865 [place] [address] 06-24-2024 13:20-0500 Body mass index (BMI) [Ratio] 34 kg/m2 Dr. Mikayla Strange MD Work Phone: 5(432)444-261865 [place] [address] 06-24-2024 13:20-0500 Body weight 92.[address] Mikayla Strange MD Work Phone: 4(362)412-210065 [place] [address] 04-09-2024 14:57-0400 Body mass index (BMI) [Ratio] 33.78 kg/m2 Kd Stockton PA-C Work Phone: [facility] 04-09-2024 14:57-0400 Body temperature 98.01 [degF] Kd Stockton PA-C Work Phone: [facility] 04-09-2024 14:57-0400 Body weight 92.08 kg Kd Stockton PA-C Work Phone: [facility] 04-09-2024 14:57-0400 Diastolic blood pressure 75 mm[Hg] Kd Stockton PA-C Work Phone: [facility] 04-09-2024 14:57-0400 Heart rate 66 /min Kd Stockton PA-C Work Phone: [facility] 04-09-2024 14:57-0400 Respiratory rate 16 /min Kd Stockton PA-C Work Phone: [facility] 04-09-2024 14:57-0400 SaO2% (BldA) [Mass fraction] 100 % Kd Stockton PA-C Work Phone: [facility] Comment on above: 04-09-2024 14:57-0400 Systolic blood pressure 122 mm[Hg] Kd Stockton PA-C Work Phone: [facility] 02-20-2024 15:56-0400 Body height 165.1 cm Mikayla Strange MD Work Phone: [facility] 02-20-2024 15:56-0400 Body mass index (BMI) [Ratio] 33.95 kg/m2 Mikayla Strange MD Work Phone: [facility] 02-20-2024 15:56-0400 Body weight 92.53 kg Mikayla Strange MD Work Phone: [facility] 02-20-2024 15:56-0400 Diastolic blood pressure 60 mm[Hg] Mikayla Strange MD Work Phone: [facility] 02-20-2024 15:56-0400 Heart rate 66 /min Mikayla Strange MD Work Phone: [facility] 02-20-2024 15:56-0400 SaO2% (BldA) [Mass fraction] 99 % Mikayla Strange MD Work Phone: [facility] 02-20-2024 15:56-0400 Systolic blood pressure 124 mm[Hg] Mikayla Strange MD Work Phone: [facility] 01-05-2024 11:19-0400 Body height 165.1 cm Mikayla Strange MD Work Phone: [facility] 01-05-2024 11:19-0400 Body mass index (BMI) [Ratio] 33.98 kg/m2 Mikayla Strange MD Work Phone: [facility] 01-05-2024 11:19-0400 Body weight 92.63 kg Mikayla Strange MD Work Phone: [facility] 01-05-2024 11:19-0400 Diastolic blood pressure 62 mm[Hg] Mikayla Strange MD Work Phone: [facility] 01-05-2024 11:19-0400 Heart rate 68 /min Mikayla Strange MD Work Phone: [facility] 01-05-2024 11:19-0400 SaO2% (BldA) [Mass fraction] 99 % Mikayla Strange MD Work Phone: [facility] 01-05-2024 11:19-0400 Systolic blood pressure 138 mm[Hg] Mikayla Strange MD Work Phone: [facility] 11-21-2023 13:36-0400 Body height 165.1 cm Mikayla Strange MD Work Phone: [facility] 11-21-2023 13:36-0400 Body mass index (BMI) [Ratio] 34.61 kg/m2 Mikayla Strange MD Work Phone: [facility] 11-21-2023 13:36-0400 Body weight 94.35 kg Mikayla Strange MD Work Phone: [facility] 11-21-2023 13:36-0400 Diastolic blood pressure 68 mm[Hg] Mikayla Strange MD Work Phone: [facility] 11-21-2023 13:36-0400 Heart rate 76 /min Mikayla Strange MD Work Phone: [facility] 11-21-2023 13:36-0400 Systolic blood pressure 105 mm[Hg] Mikayla Strange MD Work Phone: [facility] 05-12-2023 13:48-0500 Body height 165.1 cm Mikayla Strange MD Work Phone: [facility] 05-12-2023 13:48-0500 Body weight 103.96 kg Mikayla Strange MD Work Phone: [facility] 05-12-2023 13:48-0500 Diastolic blood pressure 62 mm[Hg] Mikayla Strange MD Work Phone: [facility] 05-12-2023 13:48-0500 Heart rate 93 /min Mikayla Strange MD Work Phone: [facility] 05-12-2023 13:48-0500 SaO2% (BldA) [Mass fraction] 97 % Mikayla Strange MD Work Phone: [facility] 05-12-2023 13:48-0500 Systolic blood pressure 104 mm[Hg] Mikayla Strange MD Work Phone: [facility] 10-25-2022 12:59-0400 Body height 165.1 cm Mikayla Strange MD Work Phone: [facility] 10-25-2022 12:59-0400 Body weight 105.23 kg Mikayla Strange MD Work Phone: [facility] 10-25-2022 12:59-0400 Diastolic blood pressure 64 mm[Hg] Mikayla Strange MD Work Phone: [facility] 10-25-2022 12:59-0400 Heart rate 82 /min Mikayla Strange MD Work Phone: [facility] 10-25-2022 12:59-0400 Respiratory rate 16 /min Mikayla Strange MD Work Phone: [facility] 10-25-2022 12:59-0400 Systolic blood pressure 112 mm[Hg] Mikayla Strange MD Work Phone: [facility] 08-26-2022 14:07-0500 Body temperature 99.4 [degF] [facility] 08-26-2022 14:07-0500 Diastolic blood pressure 55 mm[Hg] [facility] 08-26-2022 14:07-0500 Heart rate 75 /min [facility] 08-26-2022 14:07-0500 Respiratory rate 18 /min [facility] 08-26-2022 14:07-0500 SaO2% (BldA) [Mass fraction] 96 % [facility] 08-26-2022 14:07-0500 Systolic blood pressure 95 mm[Hg] [facility] 08-26-2022 12:02-0500 Body height 165.1 cm [facility] 08-26-2022 12:02-0500 Body mass index (BMI) [Ratio] 40.6 kg/m2 [facility] 08-26-2022 12:02-0500 Body weight 110.7 kg [facility] 06-22-2022 14:15-0500 Body height 167.6 cm Gwen Blakely MD Work Phone: [facility] 06-22-2022 14:15-0500 Body temperature 97.3 [degF] Gwen Blakely MD Work Phone: [facility] 06-22-2022 14:15-0500 Body weight 115.85 kg Gwen Blakely MD Work Phone: [facility] 06-22-2022 14:15-0500 Diastolic blood pressure 82 mm[Hg] Gwen Blakely MD Work Phone: [facility] 06-22-2022 14:15-0500 Heart rate 91 /min Gwen Blakely MD Work Phone: [facility] 06-22-2022 14:15-0500 SaO2% (BldA) [Mass fraction] 99 % Gwen Blakely MD Work Phone: [facility] 06-22-2022 14:15-0500 Systolic blood pressure 118 mm[Hg] Gewn Blakely MD Work Phone: [facility] 05-27-2022 09:44-0500 Diastolic blood pressure 60 mm[Hg] Gwen Blakely MD Work Phone: [facility] 05-27-2022 09:44-0500 Heart rate 84 /min Gwen Blakely MD Work Phone: [facility] 05-27-2022 09:44-0500 Respiratory rate 16 /min Gwen Blakely MD Work Phone: [facility] 05-27-2022 09:44-0500 SaO2% (BldA) [Mass fraction] 97 % Gwen Blakely MD Work Phone: [facility] 05-27-2022 09:44-0500 Systolic blood pressure 120 mm[Hg] Gwen Blakely MD Work Phone: [facility] 05-27-2022 07:52-0500 Body temperature 97.59 [degF] Gwen Blakely MD Work Phone: [facility] 05-27-2022 07:52-0500 Body weight 110.1 kg Gwen Blakely MD Work Phone: [facility] 04-11-2022 15:05-0400 Body height 167.6 cm Gwen Blakely MD Work Phone: [facility] 04-11-2022 15:05-0400 Body temperature 98.01 [degF] Gwen Blakely MD Work Phone: [facility] 04-11-2022 15:05-0400 Body weight 112.67 kg Gwen Blakely MD Work Phone: [facility] 04-11-2022 15:05-0400 Diastolic blood pressure 72 mm[Hg] Gwen Blakely MD Work Phone: [facility] 04-11-2022 15:05-0400 Heart rate 100 /min Gwen Blakely MD Work Phone: [facility] 04-11-2022 15:05-0400 SaO2% (BldA) [Mass fraction] 98 % Gwen Blakely MD Work Phone: [facility] 04-11-2022 15:05-0400 Systolic blood pressure 140 mm[Hg] Gwen Blakely MD Work Phone: [facility] 01-14-2022 10:11-0400 Body weight 116.57 kg Mikayla Strange MD Work Phone: [facility] 01-14-2022 10:11-0400 Diastolic blood pressure 70 mm[Hg] Mikayla Strange MD Work Phone: [facility] 01-14-2022 10:11-0400 Heart rate 88 /min Mikayla Strange MD Work Phone: [facility] 01-14-2022 10:11-0400 Systolic blood pressure 118 mm[Hg] Mikayla Strange MD Work Phone: [facility] 12-24-2021 14:07-0400 Diastolic blood pressure 78 mm[Hg] Sayda Haagen CHAINSTITCH FELLED SEAM OPERATOR.INSPECTOR AND HAND PACKAGER Work Phone: [facility] 12-24-2021 14:07-0400 Heart rate 104 /min Sayda Haagen CHAINSTITCH FELLED SEAM OPERATOR.INSPECTOR AND HAND PACKAGER Work Phone: [facility] 12-24-2021 14:07-0400 Respiratory rate 18 /min Sadya Haagen CHAINSTITCH FELLED SEAM OPERATOR.INSPECTOR AND HAND PACKAGER Work Phone: [facility] 12-24-2021 14:07-0400 SaO2% (BldA) [Mass fraction] 98 % Sayda Haagen CHAINSTITCH FELLED SEAM OPERATOR.INSPECTOR AND HAND PACKAGER Work Phone: [facility] 12-24-2021 14:07-0400 Systolic blood pressure 134 mm[Hg] Sayda Haagen CHAINSTITCH FELLED SEAM OPERATOR.INSPECTOR AND HAND PACKAGER Work Phone: [facility] 11-17-2021 15:40-0400 Body weight 117.94 kg Mikayla Strange MD Work Phone: [facility] 11-17-2021 15:40-0400 Diastolic blood pressure 80 mm[Hg] Mikayla Strange MD Work Phone: [facility] 11-17-2021 15:40-0400 Heart rate 80 /min Mikayla Strange MD Work Phone: [facility] 11-17-2021 15:40-0400 Systolic blood pressure 162 mm[Hg] Mikayla Strange MD Work Phone: [facility] 09-17-2021 13:46-0400 Body weight 122.56 kg Mikayla Strange MD Work Phone: [facility] 09-17-2021 13:46-0400 Diastolic blood pressure 76 mm[Hg] Mikayla Strange MD Work Phone: [facility] 09-17-2021 13:46-0400 Heart rate 92 /min Mikayla Strange MD Work Phone: [facility] 09-17-2021 13:46-0400 Respiratory rate 18 /min Mikayla Strange MD Work Phone: [facility] 09-17-2021 13:46-0400 Systolic blood pressure 138 mm[Hg] Mikayla Strange MD Work Phone: [facility] 01-05-2015 14:45-0400 Body Temperature 98 [degF] [facility] Work Phone: 11-28-2014 14:43-0400 BMI (Body Mass Index) 38.41 kg/m2 [facility] Work Phone: 11-28-2014 14:43-0400 Weight 107.96 kg [facility] Work Phone: 04-07-2014 11:44-0400 BP Diastolic 79 mm[Hg] [facility] Work Phone: 04-07-2014 11:44-0400 BP Systolic 118 mm[Hg] [facility] Work Phone: 04-07-2014 11:44-0400 Pulse (Heart Rate) 74 /min [facility] Work Phone: 09-25-2012 09:31-0400 BSA (Body Surface Area) 2.08 m2 [facility] Work Phone: 09-25-2012 09:31-0400 Height 167.64 cm [facility] Work Phone: 09-25-2012 09:31-0400 Respiratory Rate 16 /min [facility] Work Phone: Encounters Encounter Date Encounter Type Care Provider Facility Start: 12-07-2024 ambulatory Kadi Carlos Facility:[facility] Start: 12-05-2024 End: 12-05-2024 Subsequent hospital visit by physician Screen Mammo [facility] Comment on above: Encounter for screen ing mammogram for malignant neoplasm of breast [Z12.31] Start: 11-29-2024 End: 11-29-2024 ambulatory MIKAYLA STRANGE Facility:[facility] Start: 11-29-2024 End: 11-29-2024 ambulatory MIKAYLA STRANGE Facility:[facility] Start: 11-29-2024 End: 11-29-2024 Patient encounter procedure Mikayla Strange MD Work Phone: [facility] Comment on above: Fibromyalgia (Primar y Dx); Medicare annual wellness visit, initial; Atrophic vaginitis; Other diabetic neurological complication associated with type 2 diabetes mellitus (HCC); Primary hypertension; Other hyperlipidemia; Rheumatoid arthritis, involving unspecified site, unspecified whether rheumatoid factor present ([facility]); Type 2 diabetes mellitus without complication, without long-term current use of insulin ([facility]); Stage 3 chronic kidney disease, unspecified whether stage 3a or 3b CKD ([facility]); Obesity, Class I, BMI 30-34.9; Morbid (severe) obesity due to excess calories ([facility]); Mild cognitive disorder; Glaucoma of both eyes, unspecified glaucoma type; Chronic insomnia; Anxiety; Depression, major, single episode, moderate ([facility]); Encounter for screening mammogram for malignant neoplasm of breast; Anemia, unspecified type; Diarrhea, unspecified type; Nausea; Dysuria Start: 11-27-2024 End: 11-27-[address] Mikayla Strange MD Work Phone: [facility] Work Phone: Start: 11-27-2024 End: 11-27-[address] 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 Mati Magallon MD -[facility] Start: 11-21-2024 End: 11-21-[address] Mikayla Strange MD Work Phone: [facility] Work Phone: Start: 11-11-2024 End: 11-11-[address] Mati Magallon MD -[facility] Start: 11-11-2024 End: 11-11-[address] Mikayla Strange MD Work Phone: [facility] Work Phone: Start: 10-30-2024 End: 10-30-[address] Mikayla Strange MD Work Phone: [facility] Work Phone: Start: 10-30-2024 End: 10-30-[address] Latia Ward MD -Radiology, [facility] Work Phone: Start: 10-30-2024 End: 10-30-2024 [facility] Start: 10-22-2024 End: 10-22-2024 Office outpatient visit 15 minutes Sayda Carr APRN.INSPECTOR AND HAND PACKAGER Work Phone: [facility] Comment on above: Fracture Risk Assess ment Score (FRAX) indicating greater than 20% risk for major osteoporosis-related fracture (Primary Dx) Start: 10-22-2024 End: 10-22-2024 ambulatory MIKAYLA Valencia [facility] Facility:[facility] Start: 10-21-2024 End: 10-21-2024 Patient encounter procedure Ga Blackburn PA-C Work Phone: [facility] Comment on above: 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, subsequent encounter (Primary Dx) Start: 10-21-2024 End: 10-21-2024 ambulatory GA BLACKBURN Facility:[facility] Start: 10-15-2024 End: 10-16-2024 Follow-up encounter Sayda Carr APRN.INSPECTOR AND HAND PACKAGER Work Phone: [facility] Comment on above: F/U on Bone Density Results Start: 10-11-2024 ambulatory [facility] Facility :[facility] Start: 10-11-2024 End: 10-11-2024 Subsequent hospital visit by physician Bone Density [facility] Work Phone: Radiology Comment on above: Fracture [T14.8XXA] Start: 10-03-2024 ambulatory Sydni Waggoner Facility:[facility] Start: 10-03-2024 Registered Recurring Sydni Awad MD -Physical Therapy Work Phone: Start: 09-16-2024 Registered Recurring Sydni Awad MD -Physical Therapy Work Phone: Start: 09-06-2024 End: 09-06-[address] Mikayla Strange MD Work Phone: [facility] Work Phone: Start: 09-06-2024 End: 09-06-[address] Smita Buck MD -Laboratory, [place] Work Phone: Start: 09-06-2024 End: 09-06-2024 ambulatory Smita Buck Facility:[facility] Start: 08-19-2024 End: 08-19-2024 Telephone encounter Mikayla Strange MD Work Phone: [facility] Comment on above: Results Start: 08-16-2024 End: 10-16-2024 Follow-up encounter Mikayla Strange MD Work Phone: [facility] Start: 08-16-2024 End: 08-16-2024 Telephone encounter Mikayla Strange MD Work Phone: [facility] Comment on above: Results Start: 08-14-2024 End: 08-14-2024 ambulatory MIKAYLA FORTUNEO Facility:[facility] Start: 08-14-2024 End: 08-14-2024 Patient encounter procedure Mikayla Strange MD Work Phone: [facility] Comment on above: Dysuria (Primary Dx) ; [...] (HCC) Start: 08-14-2024 End: 08-14-2024 ambulatory MIKAYLA Annie HUNTER Facility:[facility] Start: 08-08-2024 End: 08-08-2024 Refill Mikayla Strange MD Work Phone: [facility] Comment on above: Refill Request Start: 08-06-2024 End: 08-07-2024 Refill Mikayla Strange MD Work Phone: [facility] Comment on above: Refill Request Start: 07-22-2024 End: 07-22-2024 Patient encounter procedure Sydni Waggoner MD Work Phone: [facility] Comment on above: 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 Smita Buck MD -Laboratory, [place] Work Phone: Start: 07-12-2024 End: 07-12-2024 ambulatory Smita Buck Facility:[facility] Start: 07-03-2024 End: 07-03-2024 Telephone encounter Stef Luz Work Phone: [facility] Start: 07-02-2024 End: 07-02-2024 ambulatory SYDNI WAGGONER Facility:[facility] Start: 07-01-2024 End: 07-01-2024 Telephone encounter Sydni Waggoner MD Work Phone: [facility] Comment on above: [employer] - O ther Start: 06-30-2024 End: 06-30-2024 Emergency department patient visit MIKAYLA STRANGE Facility:[facility] Start: 06-28-2024 End: 06-29-2024 Emergency department patient visit MIKAYLA Valencia HUNTER Facility:[facility] Start: 06-28-2024 End: 06-28-2024 Telephone encounter Sdyni Waggoner MD Work Phone: [facility] Comment on above: Patient Update Start: 06-24-2024 Non-patient / Non-visit Dr. Eliel yung MD -[facility] Start: 06-24-2024 End: 06-24-2024 ambulatory Mikayla Strange MD Work Phone: [facility] Comment on above: Symptoms Start: 06-24-2024 End: 06-24-2024 Telephone encounter Mikayla Strange MD Work Phone: [facility] Comment on above: Results Start: 06-24-2024 End: 06-24-2024 Emergency department patient visit Dr. Rafael Martines DO -Emergency Department Work Phone: Start: 06-23-2024 End: 06-23-2024 ambulatory MIKAYLA Annie HUNTER Facility:[facility] Start: 06-23-2024 End: 06-23-2024 Telemedicine consultation with patient Keri Ospina APRN.INSPECTOR AND HAND PACKAGER Work Phone: Telemedicine Comment on above: Procedure, test, or exam not indicated (Primary Dx) Start: 06-14-2024 End: 06-14-2024 Telephone encounter Mikayla Strange MD Work Phone: [facility] Comment on above: Patient Update Start: 06-10-2024 End: 06-10-2024 Telephone encounter Mikayla Strange MD Work Phone: [facility] Comment on above: Orders Start: 06-04-2024 End: 06-04-2024 Telephone encounter Mikayla Strange MD Work Phone: [facility] Comment on above: Home Health orders Start: 06-03-2024 End: 06-03-2024 ambulatory SYDNI ROSALINE Facility:[facility] Start: 05-20-2024 End: 05-20-2024 Chart abstracting Mikayla Strange MD Work Phone: [facility] [place] Start: 05-02-2024 Emergency department patient visit MIKAYLA STRANGE Facility:[facility] Start: 05-01-2024 End: 05-02-2024 Emergency department patient visit Mikayla Strange Facility:[facility] Start: 04-22-2024 End: 04-22-2024 Refill Mikayla Strange MD Work Phone: [facility] Comment on above: Refill Request Start: 04-18-2024 End: 04-18-2024 ambulatory Smita Buck Facility:[facility] Start: 04-17-2024 End: 04-17-2024 ambulatory Gennaroelijah Sylvia Facility:[facility] Start: 04-11-2024 End: 04-12-2024 Telephone encounter Kd Stockton PA-C Work Phone: Urology Comment on above: Results Start: 04-09-2024 End: 04-09-2024 ambulatory KD STOCKTON Facility:[facility] Start: 04-09-2024 End: 04-09-2024 Patient encounter procedure Kd Stocktonshira JEAN-BAPTISTE-Marlee Work Phone: Urology Comment on above: Atrophic vaginitis ( Primary Dx); Dysuria; Microscopic hematuria Start: 03-09-2024 End: 03-09-2024 Telephone encounter Mikayla Strange MD Work Phone: [facility] Comment on above: Results Start: 03-07-2024 End: 03-07-2024 ambulatory MIKAYLA STRANGE Facility:[facility] Start: 03-06-2024 End: 03-06-2024 Telephone encounter Mikayla Strange MD Work Phone: [facility] [place] Comment on above: Results Start: 03-05-2024 End: 03-05-2024 ambulatory MIKAYLA STRANGE Facility:[facility] Start: 02-20-2024 End: 02-20-2024 Patient encounter procedure Mikayla Strange MD Work Phone: [facility] [place] Comment on above: Urinary tract infect ion with hematuria, site unspecified (Primary Dx); Encounter for screening mammogram for malignant neoplasm of breast Start: 02-20-2024 End: 02-20-2024 ambulatory MIKAYLA STRANGE Facility:[facility] Start: 02-05-2024 Refill Mikayla Strange MD Work Phone: [facility] Comment on above: Refill Request Start: 01-25-2024 End: 01-25-20[facility] Start: 01-22-2024 ambulatory Mikayla Strange MD Work Phone: [facility] [place] Comment on above: Test Results Start: 01-15-2024 End: 01-15-2024 ambulatory MIKAYLA STRANGE Facility:[facility] Start: 01-08-2024 Telephone encounter Mikayla Strange MD Work Phone: [facility] [place] Comment on above: Results Start: 01-05-2024 End: 01-05-2024 Patient encounter procedure Mikayla Strange MD Work Phone: [facility] Comment on above: Malnutrition of mild degree (HCC) (Primary Dx); Weight loss; Type 2 diabetes mellitus without complication, without long-term current use of insulin (HCC) Start: 01-05-2024 End: 01-05-2024 ambulatory MIKAYLA STRANGE Facility:[facility] Start: 11-24-2023 Telephone encounter Mikayla Strange MD Work Phone: [facility] Comment on above: Results Start: 11-21-2023 End: 11-21-2023 Patient encounter procedure Mikayla Strange MD Work Phone: [facility] Comment on above: Fibromyalgia (Primar y Dx); Type 2 diabetes mellitus without complication, without long-term current use of insulin (HCC); Irritable bowel syndrome with constipation; Migraine without aura, intractable, without status migrainosus; Primary hypertension; Other hyperlipidemia; Stage 3 chronic kidney disease, unspecified whether stage 3a or 3b CKD (HCC); Rheumatoid arthritis, involving unspecified site, unspecified whether rheumatoid factor present (HCC); DDD (degenerative disc disease), lumbar; Weight loss Start: 11-16-2023 Refill Mikayla Strange MD Work Phone: [facility] Comment on above: Refill Request Start: 08-15-2023 Refill Mikayla Strange MD Work Phone: [facility] Comment on above: Refill Request Start: 08-10-2023 End: 08-10-2023 ambulatory [facility] Work Phone: Start: 08-10-2023 End: 08-10-2023 Patient encounter procedure [facility] Work Phone: Start: 08-08-2023 Refill Mikayla Strange MD Work Phone: [facility] Comment on above: Refill Request Start: 07-12-2023 End: 07-12-2023 [facility] Work Phone: Start: 07-12-2023 End: 07-12-2023 Patient encounter procedure [facility] Work Phone: Start: 05-30-2023 Documentation procedure Mammog deb Coordinator [facility] Start: 05-30-2023 Letter encounter Mammography Coordinator [facility] Department Start: 05-29-2023 End: 05-29-2023 Subsequent hospital visit by physician Screen Mammo [facility] M[facility] Comment on above: Encounter for screen ing mammogram for malignant neoplasm of breast [Z12.31] Start: 05-12-2023 End: 05-12-2023 Patient encounter procedure Mikayla Strange MD Work Phone: [facility] [place] Comment on above: Primary hypertension (Primary [...] 05-09-2023 Refill Mikayla Strange MD Work Phone: [facility] Comment on above: Refill Request Start: 04-28-2023 Refill Mikayla Strange MD Work Phone: [facility] Comment on above: Refill Request Start: 03-24-2023 End: 03-24-2023 Patient encounter procedure [facility] Work Phone: Start: 01-04-2023 ambulatory Mikayla Strange MD Work Phone: [facility] [place] Comment on above: Prescriptions need t o be sent to [facility] to be filled: Refill Request Start: 12-26-2022 End: 12-26-2022 ambulatory [facility] Work Phone: Start: 12-26-2022 End: 12-26-2022 Patient encounter procedure [facility] Work Phone: Start: 10-31-2022 End: 10-31-2022 Patient encounter procedure Noe Muniz Work Phone: Podiatry Comment on above: Arthritis of foot (P rimary Dx); 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, subsequent encounter; Left foot pain Start: 10-25-2022 End: 10-25-2022 Patient encounter procedure Mikayla Strange MD Work Phone: [facility] Comment on above: Primary hypertension (Primary Dx); Obesity, Class III, BMI 40-49.9 (morbid obesity) ([facility]); Other hyperlipidemia; Type 2 diabetes mellitus without complication, without long-term current use of insulin ([facility]); DDD (degenerative disc disease), lumbar; Rheumatoid arthritis, involving unspecified site, unspecified whether rheumatoid factor present ([facility]); Stage 3 chronic kidney disease, unspecified whether stage 3a or 3b CKD ([facility]); Anemia, unspecified type Start: 10-18-2022 Refill Mikayla Strange MD Work Phone: [facility] Comment on above: Refill Request Start: 10-03-2022 End: 10-03-2022 Patient encounter procedure [facility] Work Phone: Start: 09-23-2022 ambulatory Noe long Work Phone: Podiatry Comment on above: ct results Start: 09-23-2022 E-mail encounter fro m caregiver Noe Muniz Work Phone: [facility] Start: 09-23-2022 Telephone encounter Noe Connelly Work Phone: Podiatry Comment on above: Results Start: 09-12-2022 End: 09-12-2022 Subsequent hospital visit by physician [facility] ([facility]) Work Phone: Cat Scan Comment on above: Left foot pain [M79. 672] Start: 08-26-2022 Telephone encounter Noe Connelly Work Phone: Podiatry Comment on above: Patient Update Start: 08-26-2022 End: 08-26-2022 Admission to same day surgery center [facility] Start: 08-26-2022 End: 08-26-2022 ambulatory [facility] Work Phone: Start: 08-23-2022 Telephone encounter Noe Connelly Work Phone: Podiatry Comment on above: Patient Update (Pre cert) Start: 08-18-2022 End: 08-18-2022 Subsequent hospital visit by physician Xr [facility] Work Phone: Radiology Comment on above: Arthritis [...] 08-15-2022 Refill Mikayla Strange MD Work Phone: [facility] Comment on above: Refill Request Start: 08-08-2022 End: 08-08-2022 Patient encounter procedure Noe Muniz Work Phone: Podiatry Comment on above: Arthritis of foot (P rimary Dx); Posterior tibial tendon dysfunction; Other diabetic neurological complication associated with type 2 diabetes mellitus (HCC) Start: 07-27-2022 ambulatory Mikayla Strange MD Work Phone: [facility] Comment on above: cancellation of pres cription Citapram 40 mg. Start: 07-13-2022 End: 07-13-2022 ambulatory [facility] Work Phone: Start: 07-13-2022 End: 07-13-2022 Patient encounter procedure [facility]-Laboratory Start: 07-06-2022 End: 07-06-2022 ambulatory [facility] Work Phone: Start: 07-06-2022 End: 07-06-2022 Patient encounter procedure [facility]-Laboratory, [place] Start: 07-04-2022 End: 07-04-2022 Subsequent hospital visit by physician Xr [facility] Work Phone: Radiology Comment on above: Pes [...] 05-20-2022 Refill Mikayla Strange MD Work Phone: [facility] Comment on above: Refill Request Start: 04-20-2022 Telephone encounter Mariah Muñiz APRN.CNP Work Phone: [facility] Comment on above: Results Start: 04-15-2022 Documentation procedure Mammog deb Coordinator [facility] Start: 04-15-2022 Letter encounter Mammography Coordinator [facility] Department Start: 04-14-2022 Telephone encounter Mikayla Strange MD Work Phone: [facility] Comment on above: Results Start: 04-14-2022 End: 04-14-2022 Subsequent hospital visit by physician Screen Mammo [facility] Mammogram Comment on above: Screening breast exa mination [Z12.39] Start: 04-11-2022 End: 04-11-2022 Patient encounter procedure Gwen Blakely MD Work Phone: General Surgery Comment on above: Change in bowel habi ts; Nausea Start: 04-05-2022 ambulatory Mikayla Strange MD Work Phone: [facility] Comment on above: sweating Start: 03-23-2022 Telephone encounter Mikayla Strange MD Work Phone: [facility] Comment on above: Results Start: 03-11-2022 End: 03-11-[address] Mikayla Strange Work Phone: [facility] Work Phone: Start: 03-11-2022 End: 03-11-[address] Mikayla Strange Work Phone: [facility] Start: 03-03-2022 Refill Mikayla Strnage MD Work Phone: [facility] Comment on above: Refill Request Start: 01-31-2022 End: 01-31-2022 Patient encounter procedure Noe Muniz Work Phone: Podiatry Comment on above: Posterior tibial ten don dysfunction (Primary Dx); Pes planus of both feet; Other diabetic neurological complication associated with type 2 diabetes mellitus (HCC); Arthritis of foot Start: 01-14-2022 End: 01-14-2022 Patient encounter procedure Mikayla Strange MD Work Phone: [facility] Comment on above: Primary hypertension Start: 01-10-2022 Non-patient / Non-visit Dr. Cordelia Strange Work Phone: [facility] Start: 01-10-2022 End: 01-10-[address] Mikayla Strange Work Phone: [facility]-Cardiovascula r Services Start: 12-30-2021 End: [...] 12-24-2021 End: 12-24-2021 Patient encounter procedure Sayda Carr APRN.CNP Work Phone: [facility] Comment on above: Discoloration of ski n of finger (Primary Dx); SOB (shortness of breath) Start: 12-24-2021 Telephone encounter Mikayla Strange MD Work Phone: [facility] Comment on above: Patient Question Start: 12-23-2021 ambulatory Mikayla Strange MD Work Phone: [facility] Comment on above: painful left foot Start: 12-22-2021 End: 12-22-2021 Patient encounter procedure [facility]-Radiology, [facility] Start: 12-17-2021 End: 12-17-2021 Subsequent hospital visit by physician [facility] Work Phone: Radiology Comment on above: Chest pain, atypical [R07.89] Start: 12-10-2021 End: 12-10-2021 Patient encounter procedure [facility]-Laboratory, [place] Start: 11-24-2021 Refill Mikayla Strange MD Work Phone: [facility] Comment on above: Refill Request Start: 11-18-2021 Telephone encounter Mikayla Strange MD Work Phone: [facility] Comment on above: Insurance Authorizat ion Start: 11-17-2021 End: 11-17-2021 Patient encounter procedure Mikayla Strange MD Work Phone: [facility] Comment on above: Nausea (Primary Dx); Type 2 diabetes mellitus without complication, without long-term current use of insulin (HCC); Panic disorder; Migraine without aura, intractable, without status migrainosus; Other hyperlipidemia; Elevated BP without diagnosis of hypertension Start: 09-29-2021 ambulatory Mikayla Strange MD Work Phone: [facility] Comment on above: Vomiting since Sunda y Start: 09-29-2021 Telephone encounter Mikayla Strange MD Work Phone: [facility] Comment on above: Opened In Error Start: 09-17-2021 End: 09-17-2021 Patient encounter procedure Mikayla Strange MD Work Phone: [facility] Comment on above: Type 2 diabetes adina itus without complication, without long- term current use of insulin (HCC) (Primary Dx); Irritable bowel syndrome with constipation; Rheumatoid arthritis of multiple sites with negative rheumatoid factor (HCC); DDD (degenerative disc disease), lumbar; Other hyperlipidemia; Panic disorder; Migraine without aura, intractable, without status migrainosus Start: 09-17-2021 End: 09-17-2021 Patient encounter procedure [facility] Procedures Date Procedure Procedure Detail Performing Clinician Start: 11-27-2024 Methadone measuremen t, urine Dr. Mikayla Strange MD Work Phone: Start: 11-25-2024 Radiologic examinati on knee 1/2 views Sydni Waggoner MD Work Phone: Start: 11-21-2024 X-ray of lumbosacral spine Dr. Mikayla Strange MD Work Phone: Start: 11-11-2024 X-ray of [...] MD Work Phone: Start: 06-24-2024 Identification proce dure for living organism Dr. Mikayla Strange MD Work Phone: Start: 06-24-[address] Paulo Strange MD Work Phone: Start: 05-09-2024 Hemoglobin A1c/Hemoglobin.total in Blood [facility] Provider Start: 05-02-2024 Antibody screen MIKAYLA STRANGE Comment on above: Order Comment: Speci men Type: BLOOD SPECIMEN Ordering Facility: [facility] Address: [address] [place] [address] Performed By: #### T SCR #### [facility] CLIA [id number] [address] [place] [address] [place] Start: 04-09-2024 Urnls dip [...] Radex foot complete minimum 3 views Noe Cristy Work Phone: Start: 05-27-2022 Level iv surg [...] Activity Detail Author Start: 05-27-2032 Colonoscopy COLONOS[address] [facility] Start: 05-27-2032 COLORECTAL CANCER SCREENING COLORECTAL CANCER SCREENING [facility] Start: 05-27-2032 Screening for malignant neoplasm of colon [facility] Start: 11-29-2025 Annual PCP Team Chronic Disease Visit Annual PCP Team Chronic Disease Visit [facility] Start: 11-29-2025 BP Controlled (<130/80) BP Controlled (<130/80) [facility] Start: 11-29-2025 Covid-19 Vaccine (#1) Covid-19 Vaccine (#1) [facility] Comment on above: Postponed from 1963 (Declined at t his time) Start: 11-29-2025 Creatinine measurement Serum Creatinine [facility] Start: 11-29-2025 Diabetic foot examination Diabetic Foot Exam [facility] Start: 11-29-2025 Hepatitis B screening Urine Albumin:Creatinine Ratio [facility] Start: 11-29-2025 Hepatitis B surface antibody level LDL Cholesterol [facility] Start: 11-29-2025 Pneumococcal Vaccine: 50+ (1 of 2 - PCV) Pneumococcal Vaccine: 50+ (1 of 2 - PCV) [facility] Comment on above: Postponed from 1977 (Declined at t his time) Start: 11-29-2025 RSV Vaccine (1 - Risk 60-74 years 1-dose series) RSV Vaccine (1 - Risk 60-74 years 1-dose series) [facility] Comment on above: Postponed from 2018 (Declined at t his time) Start: 11-29-2025 Urine microalbumin profile DTaP,Tdap,Td Vaccine (1 - Tdap) [facility] Comment on above: Postponed from 1977 (Declined at t his time) Start: 10-22-2025 Annual PCP Team Chronic Disease Visit Annual PCP Team Chronic Disease Visit [facility] Start: 10-22-2025 BP Controlled (<130/80) BP Controlled (<130/80) [facility] Start: 08-14-2025 Annual PCP Team Chronic Disease Visit Annual PCP Team Chronic Disease Visit [facility] Start: 08-14-2025 BP Controlled (<130/80) BP Controlled (<130/80) [facility] Start: 08-14-2025 Creatinine measurement Serum Creatinine [facility] Start: 06-30-2025 Complete blood count Hemoglobin/Hematocrit [facility] Start: 06-30-2025 Creatinine measurement Serum Creatinine [facility] Start: 06-28-2025 Creatinine measurement Serum Creatinine [facility] Start: 05-09-2025 Creatinine measurement Serum Creatinine [facility] Start: 04-28-2025 End: 04-28-2025 Patient encounter procedure 04/28/2025 2:15 PM EST Office Visit [facility] [address] [place] [address] Sydni Waggoner MD [address] [place] [address] FU RIGHT KNEE, SX 05/03/24 AND 05/07/24 [facility] Comment on above: FU RIGHT KNEE, SX 05/03/24 AND 05/07/24 Start: 04-09-2025 BP Controlled (<130/80) BP Controlled (<130/80) [facility] Start: 04-01-2025 End: 04-01-2025 Patient encounter procedure 04/01/2025 3:40 PM EDT Office Visit [facility] [address] [place] [address] Mikayla Strange MD [address] [place] [address] 4 month follow up [facility] Comment on above: 4 month follow up Start: 02-20-2025 HPV TESTING HPV TESTING [facility] Start: 02-20-2025 PAP TESTING PAP TESTING [facility] Start: 02-19-2025 Annual PCP Team Chronic Disease Visit Annual PCP Team Chronic Disease Visit [facility] Start: 02-19-2025 BP Controlled (<130/80) BP Controlled (<130/80) [facility] Start: 02-11-2025 Hemoglobin A1c measurement HbA1C [facility] Start: 01-16-2025 Screening for malignant neoplasm of colon Fecal Occult Blood [facility] Start: 01-14-2025 Complete blood count Hemoglobin/Hematocrit [facility] Start: 01-04-2025 Annual PCP Team Chronic Disease Visit Annual PCP Team Chronic Disease Visit [facility] Start: 01-04-2025 Complete blood count Hemoglobin/Hematocrit [facility] Start: 01-04-2025 Creatinine measurement Serum Creatinine [facility] Start: 12-24-2024 End: 12-24-2024 Patient encounter procedure 12/24/2024 2:15 PM EDT Office Visit General Surgery [address] [place] [address] Jocelin Balderas MD [address] [place] [address] Anemia, unspecified type [D64.9] General Surgery Comment on above: Anemia, unspecified type [D64.9] Start: 12-11-2024 End: 12-11-2024 Patient encounter procedure 12/11/2024 1:30 PM EDT Office Visit Geriatrics [address] [place] [id number] Gia Murry MD [address] [place] [address] Mild cognitive disorder [F09] [facility]iatrics Comment on above: Mild cognitive disorder [F09] Start: 12-09-2024 Glaucoma screening Dilated Retinal Exam [facility] Comment on above: Postponed from 11/26/2024 (Currently Suzanne eduled) Start: 12-05-2024 End: 12-05-2024 Patient encounter procedure 12/05/2024 1:30 PM EDT Appointment Mammogram [address] [place] [address] Encounter for screening mammogram for malignant neoplasm of breast [Z12.31] Mammogram Comment on above: Encounter for screening mammogram for ma lignant neoplasm of breast [Z12.31] Start: 11-29-2024 End: 02-28-2025 Bacteria identified in Urine by Culture [facility] Comment on above: Expected: 11/29/2024, Expires: 5 Start: 11-29-2024 End: 02-28-2025 Basic metabolic 2000 panel - Serum or Plasma [facility] Comment on above: Expected: 11/29/2024, Expires: 5 Start: 11-29-2024 End: 11-29-2025 Cobalamin (Vitamin B12) [Mass/volume] in Serum or Plasma [facility] Comment on above: Expected: 11/29/2024, Expires: 6 Start: 11-29-2024 End: 11-29-2025 Ferritin [Mass/volume] in Serum or Plasma [facility] Comment on above: Expected: 11/29/2024, Expires: Start: 11-29-2024 End: 11-29-2025 Folate [Mass/volume] in Serum or Plasma [facility] Comment on above: Expected: 11/29/2024, Expires: Start: 11-29-2024 End: 11-29-2025 Iron and Iron binding capacity panel - Serum or Plasma [facility] Comment on above: Expected: 11/29/2024, Expires: Start: 11-29-2024 End: 02-28-2025 LIPID PANEL, NONFASTING [facility] Comment on above: Expected: 11/29/2024, Expires: Start: 11-29-2024 End: 02-28-2025 Microalbumin/Creatinine [Mass Ratio] in Urine [facility] Comment on above: Expected: 11/29/2024, Expires: Start: 11-29-2024 End: 02-28-2025 Thyrotropin [Units/volume] in Serum or Plasma [facility] Comment on above: Expected: 11/29/2024, Expires: Start: 11-29-2024 End: 02-28-2025 Urinalysis complete panel - Urine [facility] Comment on above: Expected: 11/29/2024, Expires: Start: 11-29-2024 End: 11-29-2024 Patient encounter procedure 11/29/2024 1:00 PM EDT Office Visit [facility] [address] [place] [address] Mikayla Strange MD [address] [place] [address] Medicare Wellness [facility] Comment on above: Medicare Wellness Start: 11-27-2024 Procedure [facility] Start: 11-26-2024 Glaucoma screening Dilated Retinal Exam [facility] Start: 11-22-2024 Hepatitis B screening Urine Albumin:Creatinine Ratio [facility] Start: 11-22-2024 Hepatitis B surface antibody level LDL Cholesterol [facility] Start: 11-21-2024 Patient referral [facility] Work Phone: Start: 11-21-2024 X-ray of lumbosacral spine L/S Spine Min 4 Views [facility] Start: 11-21-2024 XR Spine Lumbar and Sacrum GE 4 Views [facility] Start: 11-20-2024 Annual PCP Team Chronic Disease Visit Annual PCP Team Chronic Disease Visit [facility] Start: 11-20-2024 BP Controlled (<130/80) BP Controlled (<130/80) [facility] Start: 11-20-2024 Covid-19 Vaccine (#1) Covid-19 Vaccine (#1) [facility] Comment on above: Postponed from 1963 (Declined at t his time) Start: 11-20-2024 Depression Screening Depression Screening [facility] Start: 11-20-2024 Urine microalbumin profile DTaP,Tdap,Td Vaccine (1 - Tdap) [facility] Comment on above: Postponed from 1977 (Declined at t his time) Start: 11-11-2024 X-ray of knee, one or two views Knee 1 or 2 Views [facility] Start: 11-11-2024 XR Knee 1 or 2 Views [facility] Start: 11-06-2024 Hemoglobin A1c measurement HbA1C [facility] Start: 10-22-2024 End: 10-22-2024 Patient encounter procedure 10/22/2024 1:40 PM EDT Office Visit [facility] [address] [place] [address] Sayda Carr, CHAINSTITCH FELLED SEAM OPERATOR.INSPECTOR AND HAND PACKAGER [address] [place] [address] discuss bone density treatment options Family [facility] Comment on above: discuss bone density treatment options Start: 10-21-2024 End: 10-21-2024 Patient encounter procedure [facility] Comment on above: RIGHT KNEE, SX 05/03/24 AND 05/07/24 Start: 08-14-2024 End: 08-14-2024 Patient encounter procedure 08/14/2024 3:20 PM EST Office Visit [facility] [address] [place] [address] Mikayla Strange MD [address] [facility] [address] 6 month follow up. Labs prior [facility] Comment on above: 6 month follow up. Labs prior Start: 08-14-2024 End: 11-13-2024 Bacteria identified in Urine by Culture BACTERIAL CULTURE, URINE Microbiology Routine Dysuria Expected: 08/14/2024, Expires: 11/13/[address] [facility] Comment on above: Expected: 08/14/2024, Expires: Start: 08-14-2024 End: 11-13-2024 CBC W Auto Differential panel - Blood [facility] Work Phone: Comment on above: Expected: 08/14/2024, Expires: Start: 08-14-2024 End: 11-13-2024 Comprehensive metabolic 2000 panel - Serum or Plasma [facility] Comment on above: Expected: 08/14/2024, Expires: Start: 08-14-2024 End: 11-13-2024 Hemoglobin A1c in Blood [facility] Comment on above: Expected: 08/14/2024, Expires: 5 Start: 08-14-2024 End: 11-13-2024 URINALYSIS, REFLEX MICROSCOPIC URINALYSIS, REFLEX MICROSCOPIC Lab Routine Dysuria Expected: 08/14/2024, Expires: 11/13/[address] [facility] Comment on above: Expected: 08/14/2024, Expires: 5 Start: 07-22-2024 End: 07-22-2024 Patient encounter procedure 07/22/2024 2:45 PM EST Office Visit [facility] [address] [place] [address] Sydni Waggoner MD [address] [address] PO R knee [facility] Comment on above: PO R knee Start: 07-16-2024 End: 07-16-2024 Patient encounter procedure 07/16/2024 2:00 PM EST Office Visit Urology [address] [place] [address] Kd Stockton PA-C [address] [place] [address] 3 MTH F/U Urology Comment on above: 3 MTH F/U Start: 07-09-2024 End: 07-09-2024 Patient encounter procedure 07/09/2024 1:40 PM EST Office Visit [facility] [address] [place], [place] [address] Mikayla Strange MD [address] [place], [place] [id number] 6 month follow up. Labs prior [facility] Comment on above: 6 month follow up. Labs prior Start: 07-08-2024 End: 07-08-2024 Patient encounter procedure 07/08/2024 2:45 PM EST Office Visit [facility] [address] [place], [place] [id number] Sydni Waggoner MD [address] [id number] PO R knee [facility] Comment on above: PO R knee Start: 07-07-2024 End: 10-06-2024 CBC W Auto Differential panel - Blood COMPLETE BLOOD COUNT AND DIFFERENTIAL Lab Routine Type 2 diabetes mellitus without complication, without long-term current use of insulin (HCC) Expected: 07/07/2024, Expires: 10/06/[address] [facility] Comment on above: Expected: 07/07/2024, Expires: Start: 07-07-2024 End: 10-06-2024 Comprehensive metabolic 2000 panel - Serum or Plasma COMPREHENSIVE METABOLIC PANEL Lab Routine Type 2 diabetes mellitus without complication, without long-term current use of insulin (HCC) Expected: 07/07/2024, Expires: 10/06/[address] [facility] Comment on above: Expected: 07/07/2024, Expires: Start: 07-07-2024 End: 10-06-2024 Hemoglobin A1c in Blood HEMOGLOBIN A1C Lab Routine Type 2 diabetes mellitus without complication, without long-term current use of insulin (HCC) Expected: 07/07/2024, Expires: 10/06/[address] [facility] Comment on above: Expected: 07/07/2024, Expires: Start: 07-07-2024 Hemoglobin A1c measurement HbA1C 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 Start: 06-24-2024 [facility] Start: 06-03-2024 End: 06-03-2024 Patient encounter procedure 06/03/2024 1:45 PM EST Office Visit [facility] [address] [place] [address] Sydni Waggoner MD [address] [place] [address] po R knee fx 05-03 [facility] Comment on above: po R knee fx 05-03 Start: 05-29-2024 Mammography Mammogram Screening [facility] Start: 05-29-2024 Screening for malignant neoplasm of breast Mammogram Screening [facility] Start: 05-25-2024 Hemoglobin A1c measurement HbA1C [facility] Start: 05-12-2024 3 comp foot exam completed Diabetic Foot Exam [facility] Start: 05-12-2024 Annual PCP Team Chronic Disease Visit Annual PCP Team Chronic Disease Visit [facility] Start: 05-12-2024 BP Controlled (<130/80) BP Controlled (<130/80) [facility] Start: 05-12-2024 Diabetic foot examination [facility] Start: 05-12-2024 Hepatitis B Vaccine (1 of 3 - Risk 3-dose series) Hepatitis B Vaccine (1 of 3 - Risk 3-dose series) [facility] Comment on above: Postponed from 2018 (Declined at t his time) Start: 05-12-2024 Pneumococcal Vaccine: 65+ (1 - PCV) Pneumococcal Vaccine: 65+ (1 - PCV) [facility] Comment on above: Postponed from 1964 (Declined at t his time) Start: 05-12-2024 Pneumococcal Vaccine: 65+ (1 of 2 - PCV) Pneumococcal Vaccine: 65+ (1 of 2 - PCV) [facility] Comment on above: Postponed from 1964 (Declined at t his time) Start: 05-12-2024 RSV Vaccine (1 - 1-dose 60+ series) RSV Vaccine (1 - 1-dose 60+ series) [facility] Comment on above: Postponed from 2018 (Declined at t his time) Start: 05-12-2024 RSV Vaccine (1 - Risk 60-74 years 1-dose series) RSV Vaccine (1 - Risk 60-74 years 1-dose series) [facility] Comment on above: Postponed from 2018 (Declined at t his time) Start: 04-09-2024 End: 04-09-2024 Patient encounter procedure 04/09/2024 3:00 PM EDT Office Visit Urology [address] [place] [address] Kd Stockton PA-C [address] [place] [address] Dysuria Urology Comment on above: Dysuria Start: 03-06-2024 End: 06-05-2024 Bacteria identified in Urine by Culture URINE CULTURE Microbiology Routine Acute cystitis with hematuria Expected: 03/06/2024, Expires: 06/05/2024 [facility] Work Phone: Comment on above: Expected: 03/06/2024, Expires: Start: 03-05-2024 End: 06-04-2024 Urinalysis complete panel - Urine URINALYSIS WITH MICROSCOPIC, REFLEX CULTURE Lab Routine Urinary tract infection with hematuria, site unspecified Expected: 03/05/2024, Expires: 06/04/2024 [facility] Work Phone: Comment on above: Expected: 03/05/2024, Expires: 4 Start: 01-15-2024 End: 01-15-2024 ambulatory 01/15/2024 1:00 PM EDT Results Only [facility] [address] [place] [address] labs [facility] Comment on above: labs Start: 01-08-2024 End: 01-07-2025 CBC W Auto Differential panel - Blood COMPLETE BLOOD COUNT AND DIFFERENTIAL Lab Routine Anemia, unspecified type Expected: 01/08/2024, Expires: 01/07/2025 [facility] Work Phone: Comment on above: Expected: 01/08/2024, Expires: Start: 01-08-2024 End: 01-07-2025 Cobalamin (Vitamin B12) [Mass/volume] in Serum or Plasma VITAMIN B12 Lab Routine Anemia, unspecified type Expected: 01/08/2024, Expires: 01/07/[address] [facility] Comment on above: Expected: 01/08/2024, Expires: Start: 01-08-2024 End: 01-07-2025 Ferritin [Mass/volume] in Serum or Plasma FERRITIN Lab Routine Anemia, unspecified type Expected: 01/08/2024, Expires: 01/07/[address] [facility] Comment on above: Expected: 01/08/2024, Expires: Start: 01-08-2024 End: 01-07-2025 Folate [Mass/volume] in Serum or Plasma FOLATE, SERUM Lab Routine Anemia, unspecified type Expected: 01/08/2024, Expires: 01/07/[address] [facility] Comment on above: Expected: 01/08/2024, Expires: Start: 01-08-2024 End: 01-07-2025 Hemoglobin.gastrointestin al.lower [Presence] in Stool by Immunoassay IMMUNOCHEMICAL FECAL OCCULT BLOOD TEST Lab Routine Anemia, unspecified type Expected: 01/08/2024, Expires: 01/07/[address] [facility] Comment on above: Expected: 01/08/2024, Expires: Start: 01-08-2024 End: 01-07-2025 Iron and Iron binding capacity panel - Serum or Plasma IRON AND TIBC Lab Routine Anemia, unspecified type Expected: 01/08/2024, Expires: 01/07/[address] [facility] Comment on above: Expected: 01/08/2024, Expires: Start: 01-05-2024 End: 04-05-2024 Prealbumin [Mass/volume] in Serum or Plasma [facility] Work Phone: Comment on above: Expected: 01/05/2024, Expires: Start: 01-05-2024 End: 01-05-2024 Patient encounter procedure 01/05/2024 11:40 AM EDT Office Visit [facility] [address] [place] [id number] Mikayla Strange MD [address] [place] [id number] 6 week follow up [facility] Comment on above: 6 week follow up Start: 11-21-2023 End: 02-20-2024 Hemoglobin A1c in Blood HEMOGLOBIN A1C Lab Routine Type 2 diabetes mellitus without complication, without long-term current use of insulin (HCC) Expected: 11/21/2023, Expires: 02/20/2024 [facility] Work Phone: Comment on above: Expected: 11/21/2023, Expires: Start: 11-21-2023 End: 02-20-2024 Hepatic function 2000 panel - Serum or Plasma HEPATIC FUNCTION PNL Lab Routine Type 2 diabetes mellitus without complication, without long-term current use of insulin (HCC) Other hyperlipidemia Expected: 11/21/2023, Expires: 02/20/[address] [facility] Comment on above: Expected: 11/21/2023, Expires: Start: 11-21-2023 End: 02-20-2024 Lipid 1996 panel - Serum or Plasma LIPID PANEL BASIC Lab Routine Type 2 diabetes mellitus without complication, without long-term current use of insulin (HCC) Other hyperlipidemia Expected: 11/21/2023, Expires: 02/20/[address] [facility] Comment on above: Expected: 11/21/2023, Expires: Start: 11-21-2023 End: 02-20-2024 Microalbumin/Creatinine [Mass Ratio] in Urine ALBUMIN/CREATININE RATIO, URINE Lab Routine Type 2 diabetes mellitus without complication, without long-term current use of insulin (HCC) Expected: 11/21/2023, Expires: 02/20/[address] [facility] Comment on above: Expected: 11/21/2023, Expires: Start: 11-21-2023 End: 02-20-2024 Prealbumin [Mass/volume] in Serum or Plasma PREALBUMIN Lab Routine Weight loss Expected: 11/21/2023, Expires: 02/20/[address] [facility] Comment on above: Expected: 11/21/2023, Expires: Start: 11-21-2023 End: 02-20-2024 Thyrotropin [Units/volume] in Serum or Plasma THYROID STIMULATING HORMONE Lab Routine Weight loss Expected: 11/21/2023, Expires: 02/20/[address] [facility] Comment on above: Expected: 11/21/2023, Expires: Start: 11-21-2023 End: 11-21-2023 Patient encounter procedure 11/21/2023 1:40 PM EDT Office Visit [facility] [address] [place] [address] Mikayla Strange MD [address] [place], [place] [id number] 6 month follow up Family [facility] Comment on above: 6 month follow up Start: 11-10-2023 Hemoglobin A1c measurement HbA1C [facility] Start: 11-10-2023 Hemoglobin A1c/Hemoglobin.total in Blood HbA1C [facility] Start: 11-05-2023 Complete blood count Hemoglobin/Hematocrit [facility] Start: 11-05-2023 Creatinine measurement Serum Creatinine [facility] Start: 11-05-2023 HEMOGLOBIN/HEMATOCRIT HEMOGLOBIN/HEMATOCRIT [facility] Start: 11-05-2023 Hepatitis B screening URINE ALBUMIN:CREATININE RATIO [facility] Start: 11-05-2023 Hepatitis B surface antibody level LDL CHOLESTEROL [facility] Start: 11-05-2023 SERUM CREATININE SERUM CREATININE [facility] Start: 10-26-2023 ANNUAL PCP TEAM CHRONIC DISEASE VISIT ANNUAL PCP TEAM CHRONIC DISEASE VISIT [facility] Start: 10-26-2023 BP CONTROLLED (<130/80) BP CONTROLLED (<130/80) [facility] Start: 10-26-2023 COVID-19 VACCINE (#1) COVID-19 VACCINE (#1) [facility] Comment on above: Postponed from 1958 (Declined at t his time) Postponed from 03/16 (Declined at this time) Start: 10-26-2023 PNEUMOCOCCAL (1 - PCV) PNEUMOCOCCAL (1 - PCV) [facility] Comment on above: Postponed from 1964 (Declined at t his time) Start: 10-26-2023 Urine microalbumin profile [facility] Comment on above: Postponed from 1977 (Declined at t his time) Start: 07-12-2023 Procedure [facility] Start: 07-04-2023 3 comp foot exam completed DIABETIC FOOT EXAM [facility] Start: 06-26-2023 Advance Directive Discussion Advance Directive Discussion [facility] Start: 06-26-2023 Behavioral Health Screening Behavioral Health Screening [facility] Start: 06-26-2023 Depression Assessment Depression Assessment [facility] Start: 05-30-2023 Glaucoma screening Dilated Retinal Exam [facility] Start: 05-30-2023 Hepatitis C antibody, confirmatory test DILATED RETINAL EXAM [facility] Start: 05-12-2023 End: 08-11-2023 Hemoglobin A1c in Blood [facility] Work Phone: Comment on above: Expected: 05/12/2023, Expires: 4 Start: 05-07-2023 Hemoglobin A1c/Hemoglobin.total in Blood HBA1C [facility] Start: 04-14-[address] [facility] Start: 04-14-2023 SERUM CREATININE SERUM CREATININE [facility] Start: 03-22-2023 ANNUAL PCP TEAM CHRONIC DISEASE VISIT ANNUAL PCP TEAM CHRONIC DISEASE VISIT [facility] Start: 03-22-2023 BP CONTROLLED (<130/80) BP CONTROLLED (<130/80) [facility] Start: 2023 Advance Directive Discussion Advance Directive Discussion [facility] Start: 01-14-2023 ANNUAL PCP TEAM CHRONIC DISEASE VISIT ANNUAL PCP TEAM CHRONIC DISEASE VISIT [facility] Start: 01-14-2023 BP CONTROLLED (<130/80) BP CONTROLLED (<130/80) [facility] Start: 12-24-2022 ANNUAL PCP TEAM CHRONIC DISEASE VISIT ANNUAL PCP TEAM CHRONIC DISEASE VISIT [facility] Start: 12-17-2022 ANNUAL PCP TEAM CHRONIC DISEASE VISIT ANNUAL PCP TEAM CHRONIC DISEASE VISIT [facility] Start: 11-17-2022 Adult depression screening assessment DEPRESSION SCREENING [facility] Start: 11-17-2022 ANNUAL PCP TEAM CHRONIC DISEASE VISIT ANNUAL PCP TEAM CHRONIC DISEASE VISIT [facility] Start: 10-25-2022 End: 12-25-2022 ALBUMIN/CREAT RATIO RND UR ALBUMIN/CREAT RATIO RND UR Lab Routine Type 2 diabetes mellitus without complication, without long-term current use of insulin (HCC) Expected: 10/25/2022, Expires: 12/25/2022 [facility] Work Phone: Comment on above: Expected: 10/25/2022, Expires: 3 Start: 10-25-2022 End: 12-25-2022 Basic metabolic 2000 panel - Serum or Plasma BASIC METABOLIC PNL Lab Routine Primary hypertension Expected: 10/25/2022, Expires: 12/25/2022 [facility] Work Phone: Comment on above: Expected: 10/25/2022, Expires: 3 Start: 10-25-2022 End: 10-26-2023 CBC W Auto Differential panel - Blood CBC + DIFF Lab Routine Anemia, unspecified type Expected: 10/25/2022, Expires: 10/26/2023 [facility] Work Phone: Comment on above: Expected: 10/25/2022, Expires: 4 Start: 10-25-2022 End: 10-26-2023 Cobalamin (Vitamin B12) [Mass/volume] in Serum or Plasma VITAMIN B12 BLOOD Lab Routine Anemia, unspecified type Expected: 10/25/2022, Expires: 10/26/2023 [facility] Work Phone: Comment on above: Expected: 10/25/2022, Expires: 4 Start: 10-25-2022 End: 10-26-2023 Ferritin [Mass/volume] in Serum or Plasma FERRITIN BLD Lab Routine Anemia, unspecified type Expected: 10/25/2022, Expires: 10/26/2023 [facility] Work Phone: Comment on above: Expected: 10/25/2022, Expires: 4 Start: 10-25-2022 End: 10-26-2023 Folate [Mass/volume] in Serum or Plasma FOLATE SERUM Lab Routine Anemia, unspecified type Expected: 10/25/2022, Expires: 10/26/2023 [facility] Work Phone: Comment on above: Expected: 10/25/2022, Expires: 4 Start: 10-25-2022 End: 12-25-2022 Hemoglobin A1c in Blood HGB A1C Lab Routine Type 2 diabetes mellitus without complication, without long-term current use of insulin (HCC) Expected: 10/25/2022, Expires: 12/25/2022 [facility] Work Phone: Comment on above: Expected: 10/25/2022, Expires: 3 Start: 10-25-2022 Hepatitis B screening URINE ALBUMIN:CREATININE RATIO [facility] Start: 10-25-2022 End: 10-26-2023 Iron and Iron binding capacity panel - Serum or Plasma IRON + TIBC Lab Routine Anemia, unspecified type Expected: 10/25/2022, Expires: 10/26/2023 [facility] Work Phone: Comment on above: Expected: 10/25/2022, Expires: 4 Start: 10-25-2022 End: 12-25-2022 Lipid 1996 panel - Serum or Plasma LIPID PANEL BASIC Lab Routine Other hyperlipidemia Expected: 10/25/2022, Expires: 12/25/2022 [facility] Work Phone: Comment on above: Expected: 10/25/2022, Expires: 3 Start: 10-01-2022 Colonoscopy COLONOSCOPY [facility] Start: 10-01-2022 COLORECTAL CANCER SCREENING COLORECTAL CANCER SCREENING [facility] Start: 09-23-2022 Hepatitis B screening URINE ALBUMIN:CREATININE RATIO [facility] Start: 09-23-2022 Hepatitis B surface antibody level LDL CHOLESTEROL [facility] Start: 09-19-2022 Hemoglobin A1c/Hemoglobin.total in Blood HBA1C [facility] Start: 09-17-2022 ANNUAL PCP TEAM CHRONIC DISEASE VISIT ANNUAL PCP TEAM CHRONIC DISEASE VISIT [facility] Start: 09-17-2022 COVID-19 VACCINE (#1) COVID-19 VACCINE (#1) [facility] Comment on above: Postponed from 1963 (Declined at t his time) Postponed from 09/13 (Declined at this time) Start: 09-17-2022 COVID-19 VACCINE (1) COVID-19 VACCINE (1) [facility] Comment on above: Postponed from 1970 (Declined at t his time) Start: 09-17-2022 ONE PNEUMOVAX PRIOR TO AGE 63 ONE PNEUMOVAX PRIOR TO AGE [address] [facility] Comment on above: Postponed from 1974 (Declined at t his time) Start: 09-17-2022 PNEUMOCOCCAL (1 - PCV) PNEUMOCOCCAL (1 - PCV) [facility] Comment on above: Postponed from 1964 (Declined at t his time) Start: 08-26-2022 Patient discharge [facility] Start: 07-28-2022 Hepatitis C antibody, confirmatory test DILATED RETINAL EXAM [facility] Start: 06-26-2022 DEPRESSION ASSESSMENT DEPRESSION ASSESSMENT [facility] Start: 04-27-2022 Hemoglobin A1c/Hemoglobin.total in Blood HBA1C [facility] Start: 04-14-2022 End: 06-14-2022 CBC W Ordered Manual Differential panel - Blood PATHOLOGIST INTERPRETATION WITH CBC AND DIFF Lab Routine Leukocytosis, unspecified type Expected: 04/14/2022, Expires: 06/14/2022 [facility] Work Phone: Comment on above: Expected: 04/14/2022, Expires: 2 Start: 04-08-2022 3 comp foot exam completed DIABETIC FOOT EXAM [facility] Start: 04-08-2022 Hepatitis B screening URINE ALBUMIN:CREATININE RATIO [facility] Start: 04-06-2022 End: 06-06-2022 CBC W Auto Differential panel - Blood CBC + DIFF Lab Routine Leukocytosis, unspecified type Expected: 04/06/2022, Expires: 06/06/2022 [facility] Work Phone: Comment on above: Expected: 04/06/2022, Expires: 2 Start: 04-01-2022 Mammography MAMMOGRAM [facility] Start: 03-25-2022 Hemoglobin A1c/Hemoglobin.total in Blood HBA1C [facility] Start: 03-24-2022 End: 05-24-2022 Basic metabolic 2000 panel - Serum or Plasma BASIC METABOLIC PNL Lab Routine Renal insufficiency Expected: 03/24/2022, Expires: 05/24/2022 [facility] Work Phone: Comment on above: Expected: 03/24/2022, Expires: 2 Start: 03-11-2022 Hepatitis B surface antibody level LDL CHOLESTEROL [facility] Start: 02-24-2022 Influenza vaccination [facility] Start: 12-30-2021 End: 03-01-2022 25-hydroxyvitamin D3 [Mass/volume] in Serum or Plasma [facility] Work Phone: Comment on above: Expected: 12/30/2021, Expires: 2 Start: 12-23-2021 Influenza vaccination INFLUENZA (#1) [facility] Comment on above: Postponed from 02/24/2021 (Declined at t his time) Start: 09-17-2021 End: 11-17-2021 ALBUMIN/CREAT RATIO RND UR ALBUMIN/CREAT RATIO RND UR Lab Routine Type 2 diabetes mellitus without complication, without long-term current use of insulin (HCC) Expected: 09/17/2021, Expires: 11/17/2021 [facility] Work Phone: Comment on above: Expected: 09/17/2021, Expires: 2 Start: 09-17-2021 End: 11-17-2021 Hemoglobin A1c/Hemoglobin.total in Blood HGB A1C Lab Routine Type 2 diabetes mellitus without complication, without long-term current use of insulin (HCC) Expected: 09/17/2021, Expires: 11/17/2021 [facility] Work Phone: Comment on above: Expected: 09/17/2021, Expires: 2 Start: 09-17-2021 End: 11-17-2021 LIPID PANEL BASIC LIPID PANEL BASIC Lab Routine Other hyperlipidemia Expected: 09/17/2021, Expires: 11/17/2021 [facility] Work Phone: Comment on above: Expected: 09/17/2021, Expires: 2 Start: 09-08-2021 Hemoglobin A1c/Hemoglobin.total in Blood HBA1C [facility] Start: 06-26-2021 DEPRESSION ASSESSMENT DEPRESSION ASSESSMENT [facility] Start: 02-20-2021 Screening for malignant neoplasm of cervix Cervical Cancer Screening [facility] Start: 07-08-2020 SHINGRIX VACCINE (2 of 2) SHINGRIX VACCINE (2 of 2) [facility] Start: 2018 Hepatitis B Vaccine (1 of 3 - Risk 3-dose series) Hepatitis B Vaccine (1 of 3 - Risk 3-dose series) [facility] Start: 2018 RSV Vaccine (1 - 1-dose 60+ series) RSV Vaccine (1 - 1-dose 60+ series) [facility] Start: 2018 RSV Vaccine (1 - Risk 60-74 years 1-dose series) RSV Vaccine (1 - Risk 60-74 years 1-dose series) [facility] Start: 09-28-2016 End: 09-28-2016 Physical Therapy General Physical Therapy [facility], [address] [place] [address], [id number] [facility] Work Phone: Start: 11-28-2014 End: 11-28-2014 X-ray exam of hip X-Ray, Hip Unilateral [facility] Work Phone: Start: 10-22-2014 End: 10-22-2014 X-ray exam, knee, 4 or more X-Ray, Knee [facility] Work Phone: Start: 06-02-2014 End: 06-02-2014 X-ray exam, knee, 4 or more X-Ray, Knee [facility] Work Phone: Start: 05-05-2014 End: 05-05-2014 X-ray exam, knee, 4 or more X-Ray, Knee [facility] Work Phone: Start: 04-07-2014 End: 04-07-2014 X-ray exam, knee, 4 or more X-Ray, Knee [facility] Work Phone: Start: 2003 COLOGUARD (FIT-DNA) COLOGUARD (FIT-DNA) [facility] Start: [address] COLONOGRAPHY [facility] Start: 2003 FECAL OCCULT BLOOD FECAL OCCULT BLOOD [facility] Start: 2003 Screening for malignant neoplasm of colon [facility] Start: 2003 SIGMOIDOSCOPY SIGMOIDOSCOPY [facility] Start: 1977 Pneumococcal Vaccine: 50+ (1 of 2 - PCV) Pneumococcal Vaccine: 50+ (1 of 2 - PCV) [facility] Start: 1977 Urine microalbumin profile [facility] Start: 1976 BP CONTROLLED (<130/80) BP CONTROLLED (<130/80) [facility] Start: 1976 HIV SCREENING HIV SCREENING [facility] Start: 1970 Adult depression screening assessment DEPRESSION SCREENING [facility] Start: 1964 PNEUMOCOCCAL (1 - PCV) PNEUMOCOCCAL (1 - PCV) [facility] Start: 1964 Pneumococcal Vaccine: 65+ (1 - PCV) Pneumococcal Vaccine: 65+ (1 - PCV) [facility] Start: 1964 Pneumococcal Vaccine: 65+ (1 of 2 - PCV) Pneumococcal Vaccine: 65+ (1 of 2 - PCV) [facility] Start: 1963 Covid-19 Vaccine (#1) Covid-19 Vaccine (#1) [facility] Start: 1958 COVID-19 VACCINE (#1) COVID-19 VACCINE (#1) [facility] Bacteria identified in Urine by Culture URINE CULTURE Microbiology Routine Urinary tract infection with hematuria, site unspecified 02/20/2024 4:30 PM EDT [facility] Bacteria identified in Urine by Culture URINE CULTURE Microbiology Routine Dysuria 04/09/2024 3:34 PM EDT [facility] Work Phone: BD DXA TRABECULAR YESENIA NE SCORE (TBS) BD DXA TRABECULAR BONE SCORE (TBS) Radiology Routine Fracture Screening for osteoporosis 10/11/2024 2:11 PM EDT [facility] CBC W Auto Different ial panel - Blood COMPLETE BLOOD COUNT AND DIFFERENTIAL Lab Routine Type 2 diabetes mellitus without complication, without long-term current use of insulin (HCC) 01/05/2024 12:39 PM EDT [facility] Clostridioides diffi cile toxin genes [Presence] in Stool by CHRISTOPHER with probe detection CLOSTRIDIUM DIFFICILE TOXIN BY PCR Lab Routine Diarrhea, unspecified type Ordered: 11/29/[address] [facility] Comment on above: Ordered: 11/29/2024 End: 04-11-2023 COLONOSCOPY DIAGNOSTIC COLONOSCOPY DIAGNOSTIC Endoscopy Routine Change in bowel habits 1 Occurrences starting 04/11/2022 until 04/11/2023 [facility] Work Phone: Comment on above: 1 Occurrences starting 04/11/2022 until 04/11/2023 Comprehensive metabo lic 2000 panel - Serum or Plasma COMPREHENSIVE METABOLIC PANEL Lab Routine Type 2 diabetes mellitus without complication, without long-term current use of insulin (HCC) 01/05/2024 12:39 PM EDT [facility] End: 09-25-2023 Ct lower extremity w/o contrast material CT FOOT WO IVCON LT Radiology Routine Left foot pain 1 Occurrences starting 08/26/2022 until 09/25/2023 [facility] Work Phone: Comment on above: 1 Occurrences starting 08/26/2022 until 09/25/2023 End: 12-29-2025 DBT Breast - bilateral screening PATSY SCREENING W ISIDRO Radiology Routine Encounter for screening mammogram for malignant neoplasm of breast 1 Occurrences starting 11/29/2024 until 12/29/2025 [facility] Work Phone: Comment on above: 1 Occurrences starting 11/29/2024 until 12/29/2025 DBT Breast - bilater al screening PATSY SCREENING W ISIDRO Radiology Routine Encounter for screening mammogram for malignant neoplasm of breast 12/05/2024 1:37 PM EDT [facility] Work Phone: DXA Skeletal system. axial Views for bone density DXA-AXIAL SKELETON Radiology Routine Fracture Screening for osteoporosis 10/11/2024 2:11 PM EDT [facility] Work Phone: End: 12-24-2022 Echocardiography ECHO Cardiology Routine Discoloration of skin of finger SOB (shortness of breath) 1 Occurrences starting 12/24/2021 until 12/24/2022 [facility] Work Phone: Comment on above: 1 Occurrences starting 12/24/2021 until 12/24/2022 End: 04-11-2023 EGD DIAGNOSTIC EGD DIAGNOSTIC Endoscopy Routine Nausea 1 Occurrences starting 04/11/2022 until 04/11/2023 [facility] Work Phone: Comment on above: 1 Occurrences starting 04/11/2022 until 04/11/2023 ENTERIC BACTERIAL PA SAVANNAH BY PCR ENTERIC BACTERIAL PANEL BY PCR Lab Routine Diarrhea, unspecified type Ordered: 11/29/[address] [facility] Comment on above: Ordered: 11/29/2024 FECAL LACTOFERRIN/LEUKOCYTES FECAL LACTOFERRIN/LEUKOCYTES Lab Routine Diarrhea, unspecified type Ordered: 11/29/[address] [facility] Comment on above: Ordered: 11/29/2024 Giardia lamblia+Cryptosporidium sp Ag [Presence] in Stool by Immunoassay CRYPTOSPORIDIUM AND GIARDIA ANTIGENS BY EIA Microbiology Routine Diarrhea, unspecified type Ordered: 11/29/[address] [facility] Comment on above: Ordered: 11/29/2024 Hemoglobin A1c in Blood HEMOGLOB IN A1C Lab Routine Type 2 diabetes mellitus without complication, without long-term current use of insulin (HCC) 01/05/2024 12:39 PM EDT [facility] End: 06-10-2024 PATSY SCREENING PATSY SCREENING Radiology Routine Encounter for screening mammogram for malignant neoplasm of breast 1 Occurrences starting 05/12/2023 until 06/10/2024 [facility] Work Phone: Comment on above: 1 Occurrences starting 05/12/2023 until 06/10/2024 PATSY SCREENING PATSY SCREENING Ra diology Routine Encounter for screening mammogram for malignant neoplasm of breast 05/29/2023 2:03 PM EST [facility] Work Phone: End: 03-21-2025 MG Breast Screening PATSY SCREENING Radiology Routine Encounter for screening mammogram for malignant neoplasm of breast 1 Occurrences starting 02/20/2024 until 03/21/[address] [facility] Comment on above: 1 Occurrences starting 02/20/2024 until 03/21/2025 MR Lumbar spine [facility] Patient Education Cellulitis Dc ED UTIs Women [facility] Work Phone: Patient referral [facility] Work Phone: End: 04-14-2022 Screening mammography bi 2-view breast inc cad [facility] Work Phone: Comment on above: 1 Occurrences starting 04/14/2022 until 04/14/2022 End: 08-03-2023 XR FOOT GENERAL 3V AP/LAT/OBL LEFT XR FOOT GENERAL 3V AP/LAT/OBL LEFT Radiology Routine Pes planus of both feet 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 Posterior tibial tendon dysfunction 1 Occurrences starting 07/04/2022 until 08/03/2023 [facility] Work Phone: Comment on above: 1 Occurrences starting 07/04/2022 until 08/03/2023 XR FOOT GENERAL 3V AP/LAT/OBL LEFT XR FOOT GENERAL 3V AP/LAT/OBL LEFT Radiology Routine Pes planus of both feet 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 Posterior tibial tendon dysfunction 07/04/2022 2:04 PM EST [facility] Work Phone: End: 09-17-2023 XR FOOT GENERAL 3V AP/LAT/OBL LEFT XR FOOT GENERAL 3V AP/LAT/OBL LEFT Radiology Routine 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, subsequent encounter 1 Occurrences starting 08/18/2022 until 09/17/2023 [facility] Work Phone: Comment on above: 1 Occurrences starting 08/18/2022 until 09/17/2023 XR FOOT GENERAL 3V AP/LAT/OBL LEFT XR FOOT GENERAL 3V AP/LAT/OBL LEFT Radiology Routine 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 03-06-2020 zoster vaccine recombinant Mikayla Strange MD Work Phone: [facility] Payers Date Payer Category Payer Self-pay [id number] 2018 Medicare MMO MEDICARE MMO MEDADVANTAGE PPO [id number] 2018-Present [phone] [address] [place] [address] PPO [id number] 2018 Medicare MMO MEDICARE MMO MEDADVANTAGE PPO [id number] 2018-Present [phone] [address] [place] [address] PPO [id number] 2018 Medicare (Managed Care) MMO ANA LUISA DVANTAGE PPO [id number] 2018 Medicare [id number] 2016 Medicare [id number] Unknown [id number] Unknown [id number] Unknown [id number] Unknown [id number] Unknown [id number] Unknown [id number] Unknown [id number] Unknown [id number] Unknown [id number] .[id number] Unknown [id number] .[id number] Unknown [id number] .[id number] Unknown [id number] .[id number] Unknown [id number] .[id number] Unknown [id number] .[id number] Unknown [id number] .[id number] Unknown [id number] Social History Date Type Detail Facility Start: 05-11-2019 End: 03-22-2022 Tobacco smoking status VTIS Never smoked tobacco [facility] Start: 09-17-2021 End: 11-29-2024 Alcohol intake Current non-drinker of alcohol (finding) [facility] Start: 02-21-2020 History SDOH Social Connections Phone [address] [facility] Start: 02-21-2020 History SDOH Social Connections Get Together [address] [facility] Start: 02-21-2020 History SDOH Social Connections Tenriism [address] [facility] Start: 02-21-2020 History SDOH Social Connections Living [address] [facility] Start: 02-21-2020 History SDOH Physica l Activity DPW [address] [facility] Start: 02-21-2020 Education [address] [facility] Start: 1960 Sex Assigned At Not on file [facility] Start: 09-07-2021 End: 05-27-2022 Exposure to SARS-CoV-2 (event) Not sure [facility] Start: 05-27-2020 End: 08-18-2022 Tobacco smoking status NHIS Unknown if ever smoked [facility] Start: 02-11-2019 Spouse/ Signif icant Other [facility] Start: 1960 Sex Assigned At Female W [facility] Start: 05-11-2019 End: 03-22-2022 Tobacco use and exposure Smokeless tobacco non-user [facility] Start: 06-12-2014 None [facility] Start: 07-28-2014 Non-smoker [facility] Start: 10-31-2022 End: 05-03-2024 History of Social function [facility] Work Phone: Start: 10-31-2022 End: 05-03-2024 Tobacco use panel [facility] Work Phone: Adult Depression Screening Assessment [address] [facility] Work Phone: Do you belong to any clubs or organizations such as tenriism groups, unions, fraternal or athletic groups, or school groups? No [facility] Work Phone: Are you now , , , , never or living with a partner? [facility] Work Phone: Do you feel stress - tense, restless, nervous, or anxious, or unable to sleep at night because your mind is troubled all the time - these days [OSQ] To some extent [facility] Work Phone: (I/We) worried wheth er (my/our) food would run out before (I/we) got money to buy more. Never true [facility] Work Phone: Start: 09-17-2024 Sex Female (finding) [facility] NEGATED: Highlighted row [facility] Medical Equipment Procedure Code Equipment Code Equipment Origin al Text Equipment Identifier Dates Pin Clamp 5 Hole - [id number] Start: 05-03-2024 Pin Clamp 5 Hole - [id number] Start: 05-03-2024 Graft Bn Augment Inj 3.0cc - [id number] Start: 05-07-2024 Locking Screw 3. 5mm / T15 / [id number] [id number] Start: 05-07-2024 Proximal Postero medial Tibia Plate R 3.5mm 82mm 5 Holes [id number] Start: 05-07-2024 Locking Screw 3. 5mm / T15 / L70mm [id number] Start: 05-07-2024 Locking Screw 3. 5mm / T15 / L60mm [id number] Start: 05-07-2024 Locking Screw 3. 5mm / T15 / L20mm [id number] Start: 05-07-2024 Uehling Pin Bone 6.0v727im - [id number] Start: 05-03-2024 Uehling Pin Bone 6.0b500ry - [id number] Start: 05-03-2024 Screw Bone 3.5mm 32mm Titanium Cortical Lock Nonsterile Axsos 3 - [id number] Start: 05-07-2024 Screw Bone 3.5mm 40mm Titanium Cortical Nonsterile Axsos 3 - [id number] Start: 05-07-2024 Goals Date Patient Goal Desired Activity /State Functional Status Date Assessment Result Facility 05-09-2024 Are you deaf, or do you have serious difficulty hearing No 05/09/2024 2:33 PM Saritha Gunderson RN No [facility] 05-09-2024 Are you blind, or do you have serious difficulty seeing, even when wearing glasses No 05/09/2024 2:33 PM Saritha Gunderson RN No [facility] 05-09-2024 Do you have serious difficulty walking or climbing stairs No 05/09/2024 2:33 PM Saritha Gunderson RN No [facility] 05-09-2024 Do you have difficul ty dressing or bathing No 05/09/2024 2:33 PM Saritha Gunderson RN No [facility] 05-09-2024 Because of a physica l, mental, or emotional condition, do you have difficulty doing errands alone such as visiting a physician's office or shopping Yes 05/09/2024 2:33 PM Saritha Gunderson, JOURDAN Yes [facility] Mental Status Date Assessment Result Facility 05-09-2024 Because of a physica l, mental, or emotional condition, do you have serious difficulty concentrating, remembering, or making decisions Yes 05/09/2024 2:33 PM Saritha Gunderson RN Yes [facility] 08-26-2022 Cognitive function Awake;Alert;Appropriat e [facility] Work Phone: 08-26-2022 Cognitive function Arousable To Voice/Nam [facility] Work Phone: Clinical Notes 05-11-2019 to 12-05-2024 Viviana Lawrence Mammo Tech - 12/05/2024 1:30 PM EDTPatient Mikayla Styles MD - 11/29/2024 1:18 PM EDSydni Mcbride MD - 11/25/2024 1:45 PM EDT Note Date & Type Note Facility 12-05-2024 History of Present illness Narrative Radiology Service Progress Note PATIENT NAME: Zackery Nunez DATE OF SERVICE: December 05, 2024 TIME: 1:50 PM PATIENT IDENTITY VERIFICATION COMPLETED [...] PATIENT PRESENTS WITH AN IMPLANTABLE OR ATTACHED SKIN DRIER: No RADIOLOGY DEPARTMENT: Mammography PERIPHERAL IV DATA: Not applicable SIGNED BY: Isha Johnson December 05, 2024 1:50 PM documented in this encounter [facility] 11-29-2024 Mikayla Vidal MD - 11/29/2024 1:48 PM EDT - Continue gabapentin 300 mg five times a day, Rinvoq for rheumatoid arthritis, lanoprost eye drops nightly, Celexa, buspirone, and your iron supplement every other day. - Refill your estradiol cream (Estroidol) has been called in; apply as directed for urinary health. - Obtain blood tests: CBC, basic metabolic panel, non-fasting lipid panel, ferritin, folate, vitamin B12, iron studies, and TSH. - Provide a urine sample for urinalysis (including microalbumin) and urine culture. - Submit a stool sample for C. difficile toxin, ova and parasites, stool culture, and fecal leukocytes. - Complete your mammogram--order has been placed. - Attend the MRI scheduled this Monday for your back. - Begin the three weekly knee injections with Dr. Moe next Monday to help lubricate your left knee. - Follow up with geriatrics (Dr. uMrry) for a full cognitive evaluation in about four months. - Return to your dentist next month for partial denture fitting and an oral exam. - Arrange a visit with a foot and ankle specialist once your other treatments settle. - Monitor the swelling and pain in your right small toe; notify us if it worsens or changes. - Watch for any new or increased urinary symptoms and contact the office if they recur. - Consider completing a medical living will; we can discuss details at your next visit. documented in this encounter [facility] 11-29-2024 Note HNO ID: [id number] Author: MIKAYLA STRANGE MD Service: ? Author Type: Physician Type: Progress Notes Filed: 11/29/2024 17:16 Note Text: Zackery Nunez is a 64 year old female here for a Medicare wellness visit. Medicare Health Risk Assessment General Health Fairly well. Exercise: Minutes/Day 15 min Exercise: Days/Week 2 to 3 Alcohol: Daily Use no Alcohol: Drinks/Day no Alcohol: 6 or more drinks none Feel off balance Yes, since knee injury. Concerns: Teeth/Dentures yes Concerns: Sexual function none Troubled by feelings Yes, some Frequency: Eating healthy diet Yes. ADLs requiring help none Safety precautions in home/vehicle yes Smoke, vape, chews tobacco no Difficulty hearing no Difficulty seeing Glasses, sees them again next month Current Providers Specialists: I have reviewed specialist-related care of the patient in the medical record. Current care team: Patient Care Team: Mikayla Strange MD as PCP - General (Family Medicine) Sayda Carr APRN.INSPECTOR AND HAND PACKAGER as Clinical Pharmacologist (Family Medicine) Ginger Lundberg APRN.CP as Clinical Pharmacologist (Family Medicine) Outside specialists seen: Dr Bedolla, optho. Sydni Waggoner, ortho. Cielo Ordoñez, rheum Dr Reeder, ortho for her left knee. Dr Ward, pain management. [facility]. Kd Stockton, urology Medical/Family history review Reviewed and updated problem list, medical/surgical/family/social history, medications, and allergies. Opioid use review Opioid Medications (last 90 days) 10/21/2024 14:19 11/25/2024 13:37 11/29/2024 Opioid Medications oxycodone HCl/acetaminophen 1 tablet three times daily as needed. 1 tablet three times daily as needed. 1 tablet TID PRN (5-325 mg tab) Patient taking differently: Patient not taking as of 04/11/2022 3:05 PM buprenorphine 3,360 mcg 1/WK Last APPLIED 05/08 TD 3,360 mcg 1/WK Last APPLIED 05/08 TD 3,360 mcg 1/WK Last APPLIED 05/08 TD Details Outpatient prescription Medication marked as long-term Patient-reported Prescribed buprenorphine (last 90 days) Does patient have risk factors for opioid abuse? No Pain overview Current pain concerns and treatment plan reviewed. Patient under the care of a specialist and is stable. . Anxiety/Depression screening Has known anxiety and depression. Recommendation: no further intervention at this time Cognitive screening Brief Assessment of Cognitive Health (BACH) Results: The patient endorsed mild depression symptoms on PHQ-8[1]. The patient endorsed a high level of stress. The patient reported getting about 6 hours of sleep per night, which falls into the may be appropriate category based on National Sleep Foundation Guidelines [2].They endorsed moderate recent sleep problems. The patient?s cognitive test performance was VALID. When invalid, probability of cognitive impairment score should be disregarded. Probability of cognitive impairment [3]: 50.15% Above 50% - Probable cognitive impairment; Specialty evaluation may be warranted 20-50% - Possible cognitive impairment; Address moderate to severe depression and sleep issues and retest Below 20% - Very low chance of cognitive impairment Moderate to severe levels of depression or stress may contribute to subjective cognitive complaints in the absence of cognitive impairment [1] Willow K, Cameron TW, Rohith RL, Mt FRANCES, Lizandro JT, Jack AH. The PHQ-8 as a measure of current depression in the general population. J Affect Disord. 2009;114(1-3):163-173. doi: 10.1016/j.dexter.2008.06.026 [2] Katarina et al. National Sleep Foundation's sleep time duration recommendations: methodology and results summary. Sleep Health. 2015 Mar;1(1):40-43. doi: 10.1016/j.sleh.2014.12.010. [3] Fany RM, Dionne O, Emir AF, Klaudia DP. Automated detection of cognitive impairment in clinical practice. J Neurol. 2023Nov 27. doi: 10.1007/w14239-776-84816-9. Epub ahead of print. PMID: 98002783. Cognitive screening reviewed and Recommended referral for further evaluation (score 0-2). Functional Observation Was the patient's Timed Up AND Go test unsteady or >= 12 seconds? No Advance Care Planning Patient did not wish or was not able to name a surrogate decision maker or provide an advance care plan Measurements BP 102/62 Pulse 75 Wt 91.6 kg (202 lb) SpO2 98% BMI 31.64 kg/m? Vision Screening: Follows with optometry/ophthalmology Zackery Nunez is a 64-year-old female with a history of RA, glaucoma, and chronic anemia, presenting for an annual wellness visit, with additional complaints of memory issues, diarrhea, and right foot pain. HPI Annual Wellness Exam: - General health described as fairly well. - Denies alcohol consumption. - Denies smoking, vaping, or chewing tobacco. - Denies issues with hearing. - Vision is pretty good with glasses; scheduled to see Dr. Bedolla next month for new glasses. - Denies issues with ADLs; able t (more content not included)... [facility] 11-29-2024 History of Present illness Narrative Images from the original note were not included. Zackery Nunez is a 64 year old female here for a Medicare wellness visit. Medicare Health Risk Assessment General Health Fairly well. Exercise: Minutes/Day 15 min Exercise: Days/Week 2 to 3 Alcohol: Daily Use no Alcohol: Drinks/Day no Alcohol: 6 or more drinks none Feel off balance Yes, since knee injury. Concerns: Teeth/Dentures yes Concerns: Sexual function none Troubled by feelings Yes, some Frequency: Eating healthy diet Yes. ADLs requiring help none Safety precautions in home/vehicle yes Smoke, vape, chews tobacco no Difficulty hearing no Difficulty seeing Glasses, sees them again next month Current Providers Specialists: I have reviewed specialist-related care of the patient in the medical record. Current care team: Patient Care Team: Mikayla Strange MD as PCP - General (Family Medicine) aSyda Carr APRN.INSPECTOR AND HAND PACKAGER as Clinical Pharmacologist (Family Medicine) Ginger Lundberg APRN.CP as Clinical Pharmacologist (Family Medicine) Outside specialists seen: Dr Bedolla, optho. Sydni Waggoner, ortho. Cielo Ordoñez, rheum Dr Reeder, ortho for her left knee. Dr Ward, pain management. [facility]. Kd Stock[place], urology Medical/Family history review Reviewed and updated problem list, medical/surgical/family/social history, medications, and allergies. Opioid use review Opioid Medications (last 90 days) 10/21/2024 14:19 11/25/2024 13:37 11/29/2024 Opioid Medications oxycodone HCl/acetaminophen 1 tablet three times daily as needed. 1 tablet three times daily as needed. 1 tablet TID PRN (5-325 mg tab) Patient taking differently: Patient not taking as of 04/11/2022 3:05 PM buprenorphine 3,360 mcg 1/WK Last APPLIED 05/08 TD 3,360 mcg 1/WK Last APPLIED 05/08 TD 3,360 mcg 1/WK Last APPLIED 05/08 TD Details Outpatient prescription Medication marked as long-term Patient-reported Prescribed buprenorphine (last 90 days) Does patient have risk factors for opioid abuse? No Pain overview Current pain concerns and treatment plan reviewed. Patient under the care of a specialist and is stable. . Anxiety/Depression screening Has known anxiety and depression. Recommendation: no further intervention at this time Cognitive screening Brief Assessment of Cognitive Health (BACH) Results: The patient endorsed mild depression symptoms on PHQ-8[1]. The patient endorsed a high level of stress. The patient reported getting about 6 hours of sleep per night, which falls into the may be appropriate category based on National Sleep Foundation Guidelines [2].They endorsed moderate recent sleep problems. The patient s cognitive test performance was VALID. When invalid, probability of cognitive impairment score should be disregarded. Probability of cognitive impairment [3]: 50.15% Above 50% - Probable cognitive impairment; Specialty evaluation may be warranted 20-50% - Possible cognitive impairment; Address moderate to severe depression and sleep issues and retest Below 20% - Very low chance of cognitive impairment Moderate to severe levels of depression or stress may contribute to subjective cognitive complaints in the absence of cognitive impairment [1] Willow K, Cameron TW, Rohith RL, Mt FRANCES, Lizandro ValenciaT, Jack AH. The PHQ-8 as a measure of current depression in the general population. J Affect Disord. 2009;114(1-3):163-173. doi: 10.1016/j.dexter.2008.06.026 [2] Katarina et al. National Sleep Foundation's sleep time duration recommendations: methodology and results summary. Sleep Health. 2015 Mar;1(1):40-43. doi: 10.1016/j.sleh.2014.12.010. [3] Fany RM, Dionne O, Emir AF, Klaudia DP. Automated detection of cognitive impairment in clinical practice. J Neurol. 2023Nov 27. doi: 10.1007/m25071-464-70350-0. Epub ahead of print. PMID: 51315353. Cognitive screening reviewed and Recommended referral for further evaluation (score 0-2). Functional Observation Was the patient's Timed Up & Go test unsteady or >= 12 seconds? No Advance Care Planning Patient did not wish or was not able to name a surrogate decision maker or provide an advance care plan Measurements BP 102/62 Pulse 75 Wt 91.6 kg (202 lb) SpO2 98% BMI 31.64 kg/m Vision Screening: Follows with optometry/ophthalmology Zackery Nunez is a 64-year-old female with a history of RA, glaucoma, and chronic anemia, presenting for an annual wellness visit, with additional complaints of memory issues, diarrhea, and right foot pain. HPI Annual Wellness Exam: - General health described as fairly well. - Denies alcohol consumption. - Denies smoking, vaping, or chewing tobacco. - Denies issues with hearing. - Vision is pretty good with glasses; scheduled to see Dr. Bedolla next month for new glasses. - Denies issues with ADLs; able to cook, clean, and dress independently. - Follows safety precautions at home and in vehicle; uses seatbelts, has adequate lighting and handrails at home. - Denies abnormal Pap smears; due for a mammogram. - Denies seeing a farmworker fryer farm. - Denies recent travel history. - Denies blood in urine, fever, or chills. Cognitive Decline: - Reports memory issues; unable to recall events from a few years ago as mentioned by . - Describes memory issues as very upsetting. 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 - Completed cognitive test in 10 minutes; score of 50.15. Discussed that may be indicative of cognitive impairment. - Experiencing difficulty sleeping; wakes up 3-4 times per night to urinate. - Taking gabapentin 1,500 mg daily (5 doses of 300 mg each); aware it can cause cognitive issues. Diarrhea: - Chronic constipation due to IBS; onset of diarrhea x2.5 months. - Diarrhea worsened after starting calcium and D3 supplements. - Bowel movements 2-3 times daily; taking antidiarrheal medication once or twice daily. - Reports abdominal pain and nausea associated with diarrhea; occasional vomiting. - Experiences heartburn. - Last colonoscopy in 2021 had poor prep quality; discussed need for repeat colonoscopy with physician but has not scheduled it yet. Right Foot Pain: - Right little toe swollen x1 week; describes pain as stinging, similar to being stung by something. - Toe appears white and is painful when rubbing against shoe. - Reports discoloration in foot since surgery and mild dependent edema. Depression and Anxiety: - Feels down and anxious at times; attributes feelings to being alone often. - Has not spoken to daughter in a year due to daughter's bipolar disorder and borderline personality disorder. - Taking Celexa and buspirone for depression and anxiety. Sexual Dysfunction: - Reports no sexual activity. Right Knee Pain: - Underwent surgery for right tibial plateau fracture on May 01, 2024; external fixator placed. - Also has a history of total knee arthroplasty on the right knee. - Completed 16 physical therapy sessions at [facility] for right knee rehabilitation; describes therapy as wonderful. - Experiences balance issues since knee surgery; initially used a walker, then a cane, but no longer requires assistive devices. - Engages in home exercises and walks on treadmill 15 minutes, 2-3 times per week. Left Knee Pain: - Seeing Dr. Moe for left knee pain; close to needing knee replacement but hesitant due to previous experience [place] right knee surgery. - Scheduled for injections to lubricate the left knee starting next Monday for 3 weeks. Chronic Pain: - Pain level currently at 3/10 while sitting; increases with movement, especially when getting up. - Right knee described as hurts all the time. - Taking Percocet TID for pain management; Dr. Ward plans to change regimen to Percocet and Tylenol BID. Chronic Anemia: - Taking iron supplements every other day. Glaucoma: - Diagnosed with glaucoma in both eyes; uses latanoprost ophthalmic solution nightly before bed. Rheumatoid Arthritis: - Managed by Dr. Armendariz; taking Rinvoq. - Reports hearing that Rinvoq can cause intestinal issues and wonders if it is contributing to diarrhea. Urinary Tract Infections: - History of recurrent UTIs; prescribed estradiol cream by urologist Dr. Stockton but ran out last night. Back Pain: - Scheduled for an MRI on Monday to evaluate back pain. Weight Loss: - Current weight is 202 lbs; desires further weight loss but has reached a plateau after significant weight loss previously. MEDICATIONS: Current Outpatient Medications Medication Sig citalopram (CELEXA) 40 mg tablet Take 1 tablet by mouth once daily. buprenorphine (BUTRANS) 20 mcg/hour transdermal patch Apply 1 Patch as directed one time a week for 7 days. Last APPLIED 05/08 acetaminophen (TYLENOL) 325 mg tablet Take 2 tablets by mouth every 6 hours as needed for pain. lisinopril (ZESTRIL) 10 mg tablet Take 1 [...] ophthalmic solution 1 Drop daily at bedtime. estradiol (ESTRACE) 0.01 % (0.1 mg/gram) vaginal cream Use 3 g vaginally once daily. gabapentin (NEURONTIN) 300 mg capsule Take 5 capsules by mouth daily at bedtime for 30 days. hyoscyamine sublingual (LEVSIN/SL) 0.125 mg Dissolve 1 tablet under the tongue every 4 hours as needed. promethazine (PHENERGAN) 25 mg tablet Take 1 tablet by mouth every 6 hours as needed. polyethylene glycol 3350 17 gram packet Take 1 Packet by mouth once daily as needed. Dissolve dose in 4 - 8 ounces of liquid and take as directed. CALCIUM POLYCARBOPHIL (FIBER LAXATIVE ORAL) Take by [...] and social history today. REVIEW OF SYSTEMS Constitutional: (+) sleep disturbance, (-) fever, (-) chills Eyes: (-) visual disturbance Ears/Nose/Mouth/Throat: (+) facial swelling, (-) hearing loss Cardiovascular: (-) chest pain, (-) palpitations Respiratory: (+) cough Gastrointestinal: (+) diarrhea, (+) abdominal pain, (+) nausea, (+) vomiting, (+) heartburn, (-) melena, (-) hematochezia Genitourinary: (+) nocturia, (+) urinary urgency, (-) hematuria Musculoskeletal: (+) right knee pain, (+) gait instability, (+) bilateral ankle pain, (+) right foot pain, (+) back pain Skin: (+) right foot discoloration, (+) right little toe swelling Neurological: (+) memory loss, (-) syncope Psychiatric: (+) depressed mood, (+) anxiety HEALTH MAINTENANCE: Reviewed health maintenance issues today and recommended the following in detail. Mammogram Screening due on 05/29/2024 Urine Albumin:Creatinine Ratio due on 11/22/2024 LDL Cholesterol due on 11/22/2024 LAB REVIEWED: Labs: (No date) - A1c: 5.6% - CMP: - BUN: 7 mg/dL - GFR: 78 mL/min - CBC: Chronic anemia - Stool tests: Negative Tests: (Today) Cognitive Test: Score 50.15 (borderline) (2021) Colonoscopy: Poor visualization due to inadequate bowel preparation; provider indicated a possible blockage VITALS: BP 102/62 Pulse 75 Wt 91.6 kg (202 lb) SpO2 98% BMI 31.64 kg/m Last 4 Encounter Wt Readings: Date: Wt: 11/29/2024 91.6 kg (202 lb) 11/25/2024 91.2 kg (201 lb) 10/21/2024 91.6 kg (202 lb) 08/14/2024 91.6 kg (202 lb) PHYSICAL EXAMINATION: GENERAL: NAD, alert and oriented. SKIN: Unremarkable, no rash or skin lesions. HEAD: Normocephalic. EYES: PERRLA, EOMI, conjunctiva clear. EARS: External ears normal, canals clear, TM's normal. NOSE/SINUSES: Nares normal. Septum midline. OROPHARYNX: Lips, mucosa, and tongue normal, good dentition. No oral lesions noted. NECK: Supple, no lymphadenopathy, normal thyroid, no carotid bruits. LUNGS: Clear to auscultation bilaterally, no wheezes/rhonchi/rales. HEART: Regular rate and rhythm, no murmurs. No ectopy. EXTREMITIES: Normal, no deformities, no skin discoloration, no edema. Right little toe with trace edema, no erythema, normal monofilament bilaterally, normal pulses. ABDOMEN: Soft, non-tender, bowel sounds positive, no masses. NEURO: Awake, alert and oriented x3, cranial nerves II-XII grossly intact, normal gait, no involuntary motions. Passed get up and go test. ASSESSMENT AND PLAN 1. Medicare annual wellness visit, initial (Z00.00) - Completed comprehensive assessment including review of systems, physical examination, and discussion of current health status. - Discussed safety precautions at home and in the vehicle; patient follows safety measures including seatbelt use and has handrails installed in the bathroom. - Reviewed patient's specialists: Dr. Bedolla for ophthalmology, Dr. Waggoner for orthopedics, Dr. Chang for rheumatology, Dr. Moe for orthopedics, and Dr. Ward for pain management. - Discussed vaccination options including RSV, tetanus, pneumonia, and COVID-19; patient declined. - Ordered screening mammogram. - Follow-up in 4 months to monitor progress and address any new concerns. 2. Atrophic vaginitis (N95.2) - Refilled estradiol cream prescription. 3. Fibromyalgia (M79.7) - Managed with gabapentin 1500 mg daily. 4. Other diabetic neurological complication associated with type 2 diabetes mellitus (HCC) (E11.49) 5. Type 2 diabetes mellitus without complication, without long-term current use of insulin (HCC) (E11.9) - Recent A1c was 5.6%. - Ordered urine microalbumin to monitor renal function. 6. Primary hypertension (I10) - Blood pressure well-controlled. 7. Other hyperlipidemia (E78.49) - Ordered non-fasting lipid panel. 8. Rheumatoid arthritis, involving unspecified site, unspecified whether rheumatoid factor present (HCC) (M06.9) - Managed by Dr. Chang; patient on Rinvoq. 9. Stage 3 chronic kidney disease, unspecified whether stage 3a or 3b CKD (HCC) (N18.30) - Recent GFR was 78 mL/min/1.73 m . 10. Obesity, Class I, BMI 30-34.9 (E66.811) 11. Morbid (severe) obesity due to excess calories (HCC) (E66.01) - Current weight is 202 lbs; patient desires further weight loss. 12. Mild cognitive disorder (F09) - Cognitive test score was 50.15, borderline results. - Ordered TSH to rule out thyroid dysfunction as a contributing factor. - Referred to Dr. Murry for a full cognitive evaluation. 13. Glaucoma of both eyes, unspecified glaucoma type (H40.9) - Managed with latanoprost ophthalmic solution nightly. 14. Chronic insomnia (F51.04) - Ongoing issues with sleep; discussed potential impact on cognitive function. 15. Anxiety (F41.9) 16. Depression, major, single episode, moderate (HCC) (F32.1) - Managed with Celexa and buspirone; symptoms stable but patient reports occasional feelings of being down and anxious. 17. Encounter for screening mammogram for malignant neoplasm of breast (Z12.31) - Ordered screening mammogram. 18. Anemia, unspecified type (D64.9) - Chronic anemia; recent CBC showed low hemoglobin levels post-surgery. - Ordered CBC, ferritin, folate, B12, and iron studies to evaluate current status. 19. Diarrhea, unspecified type (R19.7) - New onset diarrhea occurring daily; ordered stool studies including C. diff., ova and parasite, stool culture, and fecal leukocytes. - Referred back to gastroenterology for further evaluatio, n and possible repeat colonoscopy due to poor prep in 2021. 20. Nausea (R11.0) - Intermittent episodes; no specific treatment initiated at this time. 21. Dysuria (R30.0) - Ordered urinalysis and urine culture to evaluate for possible urinary tract infection. (See patient after visit summary for additional instructions to patient) Mikayla Strange MD Recording using ambient [employer] software for draft documentation of the visit was discussed with the patient/authorized ambulatory service representative; all questions welcomed and answered. Patient/authorized ambulatory service representative agreed to proceed documented in this encounter [facility] 11-25-2024 History of Present illness Narrative Images [...] 11/25/2024 8:31 PM documented in this encounter [facility] 11-25-2024 Note HNO ID: [id number] Author: SYDNI WAGGONER MD Service: ? Author [...] [Amoxicil* Intolerance Bentyl (more content not included)... [facility] 11-11-2024 Evaluation note Diagnosis Onset Date Resolution Left knee DJD acute November 11, 2 025 1:13pm Chronic pain syndrome chronic November 11, 2024 1:13pm Rheumatoid arthritis chronic November 11, 2024 1:13pm [facility] Work Phone: 1(448) 282-739505-19-2025 Evaluation note* Diagnosis Onset Date Resolution Status Admit Date Left knee DJD acute November 11, 2 025 1:13pm Chronic pain syndrome chronic November 11, 2024 1:13pm Rheumatoid arthritis chronic November 11, 2024 1:13pm Lumbar stenosis with neuroge abdirizak claudication acute November 21, 2024 1 :16pm Spondylolisthesis at L4-L5 level acu te November 21, 2024 1:16pm [facility] Work Phone: 1(372) 461-120105-08-2025 Radiology Diagnostic study note [facility] Imaging Services [address] [place] [address] Knee 1 or 2 Views MR#: [id number] Acct: [id number] Name: ZACKERY NUNEZ CHARLEY Rep #: [id number] : 1960 F 64 From: Manuel Jiang MD PCP: Dr. Mikayla Strange MD Status: REG C RYAN Study:Knee 1 or 2 Views Date of Exam: Exam# [id number] Ordering Dr: Tisha Ward MD PROCEDURE: KNEE [...] 2 Views IMPRESSION: As above. Reading Location: [id number] CC: Dr. Latia Ward MD; Dr. Mikayla Strange MD ~ [facility] W[place]: Signed [facility]05-08-2025 Radiology Diagnostic study note [facility] Imaging Services [address] [place], [place] [address] Knee 1 or 2 Views MR#: [id number] Acct: [id number] Name: ZACKERY NUNEZ Rep #: [id number] : 1960 F 64 From: Roddy Daniels MD PCP: Dr. Mikayla Strange MD Status: REG C LI Study:Knee 1 or 2 Views Date of Exam: Exam# [id number] Ordering Dr: Tisha Ward MD PROCEDURE: KNEE 1 OR 2 VIEWS 10/30/2024 REASON FOR EXAM: B/L KNEE OA TECHNIQUE: Two views left knee COMPARISON: None available FINDINGS: No fracture or dislocation. Medial and lateral compartment joint spaces appear within limits. Mild spurring at the tibial spines. Severe joint space narrowing suggested of the patellofemoral compartment with mvpj-ek-sslt appearing contact, buttressing and large osteophyte formation. Enthesopathic change at the quadriceps side of the patella. Possible small joint effusion. RAD/Knee 1 or 2 Views IMPRESSION: Severe appearing osteoarthrosis of the patellofemoral compartment as above. Reading Location: [id number] CC: Dr. Latia Ward MD; Dr. Mikayla Strange MD ~ [facility] W[place]: Signed [facility]04-29-2025 Instructions* Patient Instructions* Sayda Carr APRN.CNP - 10/22/2024 2:11 PM EDT Begin daily calcium and vitamin D supplements as discussed. Aim for approximately 6138-1818 mg of calcium with 400 units of vitamin D each day. Repeat dexa scan in 2 years. documented in this encounterUniversity Hospitals St. [facility]04-29-2025 NoteHNO ID: [id number] Author: SAYDA CARR APRN.EVE Service: ? Author Type: Nurse Practitioner Type: [...] affects vision other (Ot (more content not included)...[facility]04-29-2025 History of Present illness Narrative* Sayda Carr APRN.INSPECTOR AND HAND PACKAGER - 10/22/2024 1:45 PM EDT This is [...] prescription medication (Fosamax). - Advised starting calcium 7552-3898 mg daily and vitamin D 400 units [...] as needed for worsening/no improvement. Sayda Carr APRN.INSPECTOR AND HAND PACKAGER Recording using ReachForce software for draft documentation of the visit was discussed with the patient/authorized ambulatory service representative; all questions welcomed and answered. Patient/authorized ambulatory service representative agreed to proceed documented in this encounterUniversity Hospitals St. John [facility] Center04-28-2025 NoteHNO ID: [id number] Author: GA BLACKBURN PA-C Service: ? Author Type: Physician External Relations Director Type: Progress Notes Filed: 10/21/2024 15:06 Note [...] with repeat 2 views right knee. [facility] History of Present illness Narrative* Ga Blackburn [...] knee. Ga Blackburn PA-C documented in this encounterCleveland [id number] Telephone encounter Note * Telephone Encounter - Soraida Escudero LPN - 10/16/2024 8:54 AM EDT Phoned patient went over results, notes from Sayda Carr ASSESSMENT CLINICIAN with understanding. Scheduled appt for 10/22 with ASSESSMENT CLINICIAN to discuss options. [facility]04-23-2025 Miscellaneous Notes* Telephone Encounter - Soraida Escudero LPN - 10/16/2024 8:54 AM EDT Phoned patient went over results, notes from Sayda Carr ASSESSMENT CLINICIAN with understanding. Scheduled appt for 10/22 with ASSESSMENT CLINICIAN to discuss options. * Telephone Encounter - Sayda Carr APRN.CNP - 10/15/2024 6:20 PM EDT Can please let patient know that we received her bone density results. It does show an increased fracture risk. We should consider starting treatment. We should have her in for an appt to further discuss. documented in this encounterUniversity Hospitals St. John [facility] Center04-22-2025 Telephone encounter Note * Telephone Encounter - Sayda Carr APRN.CNP - 10/15/2024 6:20 PM EDT Can please let patient know that we received her bone density results. It does show an increased fracture risk. We should consider starting treatment. We should have her in for an appt to further discuss. [facility] Work Phone: [phone]) 397-683804-18-2025 History of Present illness Narrative* Phill Garvin, RT(R) - 10/11/2024 1:40 PM EDT Radiology [...] PATIENT PRESENTS WITH AN IMPLANTABLE OR ATTACHED SKIN DRIER: No RADIOLOGY DEPARTMENT: Bone Density PERIPHERAL IV DATA: Not applicable SIGNED BY: RT Domingo(R) October 11, 2024 1:49 PM documented in this encounterUniversity Hospitals St. John [facility] Center04-18-2025 NoteHNO ID: [id number] Author: PHILL GARVIN RT(Miguelina) Service: ? Author Type: Technologist Type: Progress [...] PATIENT PRESENTS WITH AN IMPLANTABLE OR ATTACHED SKIN DRIER: No RADIOLOGY DEPARTMENT: Bone Density PERIPHERAL IV DATA: Not applicable SIGNED BY: RT Domingo(Miguelina) October 11, 2024 1:49 [facility]02-24-2025 Miscellaneous Notes* Telephone Encounter - Adeline Hensley RN - 08/19/2024 8:18 AM EST Pt called and is notified of providers results and instructions. Pt voices understanding. Please send Rx to [facility] in [place]. Adeline Hensley RN * Telephone Encounter - Mikayla Strange MD - 08/19/2024 8:02 AM EST Has a very resistant uti. Has had issues with levaquin but says has used cipro in the past. Would switch to that since other antibiotics it is sensitive to are iv and would require hospitalization totreat. documented in this encounterUniversity Hospitals St. John [facility] Center02-24-2025 Telephone encounter Note * Telephone Encounter - Adeline Hensley RN - 08/19/2024 8:18 AM EST Pt called and is notified of providers results and instructions. Pt voices understanding. Please send Rx to [facility] in [place]. Adeline Hensley RN [facility]02-24-2025 Telephone encounter Note* Telephone Encounter - Mikayla Strange MD - 08/19/2024 8:02 AM EST Has a very resistant uti. Has had issues with levaquin but says has used cipro in the past. Would switch to that since other antibiotics it is sensitive to are iv and would require hospitalization totreat. [facility]02-21-2025 Telephone encounter Note* Telephone Encounter - Evelyn Castaneda MA - 08/16/2024 9:29 AM EST Patient informed to take Macrobid. She agreed. Please cancel [facility] Evelyn Castaneda MA [facility]02-21-2025 Miscellaneous Notes* Telephone Encounter - Evelyn Castaneda MA - 08/16/2024 9:29 AM EST Patient informed to take Macrobid. She agreed. Please cancel [facility] and [facility]. Evelyn Castaneda MA * Telephone Encounter - [...] a multivitamin with iron. documented in this encounterUniversity Hospitals St. John [facility] Center02-21-2025 Telephone encounter Note * Telephone Encounter - Mikayla Strange MD - 08/16/2024 8:57 AM EST Macrobid is not related to any of her current allergies. Actually cipro is-it is nearly identical to levaquin. Would stick with macrobid. It is one of the few antibiotics we can use given her allergies/intolerances. [facility]-2025 Telephone encounter Note* Telephone Encounter - Soraida Escudero LPN - 08/16/2024 8:19 AM EST Phoned patient went over results, notes from Dr Strange with understanding. Patient said she usually takes Cipro rx, she uses [place] [facility] for her pharmacy. She did not want Macrobid due to her list of allergies. Patient said she has been taking a multivitamin with iron. [facility]02-21-2025 Telephone encounter Note* Telephone Encounter - Mikayla Strange MD - 08/16/2024 8:09 AM EST Her urine does look infected. Culture is pending. Add macrobid. Her anemia from surgery is still present. Would add a multivitamin with iron. [facility]02-19-2025 NoteHNO ID: [id number] Author: MIKAYLA STRANGE MD Service: ? Author [...] HX LAPAROSCOPY SURG CH (more content not included)...[facility] 08-14-2024 History of Present illness Narrative* Mikayla [...] labs. Mikayla Strange MD documented in this encounterUniversity Hospitals St. John [facility] Center02-13-2025 Telephone encounter Note * Telephone Encounter - Ginger Lundberg APRN.EVE - 08/08/2024 5:43 PM EST The following approved medication requests have been transmitted electronically. Requested Prescriptions Signed Prescriptions Disp Refills hyoscyamine sublingual (LEVSIN/SL) 0.125 mg 60 tablet 3 Sig: Dissolve 1 tablet under the tongue every 4 hours as needed. Authorizing Provider: GINGER LUNDBERG APRN.CNP [facility]02-13-2025 Miscellaneous Notes* Telephone Encounter - Ginger Lundberg [...] states that prescription was [facility] to [facility]. Patient states that she needs medication to be sent to [facility] due to cost. The patient has been [...] 08, 2024 1:40 PM documented in this encounterUniversity Hospitals St. [facility] Center02-13-2025 Telephone encounter Note * Telephone Encounter - Makenna Crowder RN - 08/08/2024 1:39 PM EST Patient calls and states that prescription was [facility] to [facility]. Patient states that she needs medication to be sent to [facility] due to cost. The patient has been [...] Crowder RN August 08, 2024 1:[address] [facility]02-12-2025 Telephone encounter Note* Telephone Encounter - Mayela [...] Urbano LPN August 07, 2024 9:[address] [facility]02-12-2025 Miscellaneous Notes* Telephone Encounter - Mayela Urbano [...] 07, 2024 9:06 AM documented in this encounterUniversity Hospitals St. John [facility]02-11-2025 Telephone encounter Note * Telephone Encounter - [...] by mouth once daily. Ashley Marsh RN [facility]02-11-2025 Miscellaneous Notes* Telephone Encounter - Ashley Marsh [...] daily. Ashley Marsh RN documented in this encounterUniversity Hospitals St. John [facility] Center01-27-2025 History of Present illness Narrative* Sydni Waggoner [...] The patient has tolerated the right knee omedi-od-kzdywx brace and maintained non-weightbearing recommendations with the [...] for full details) -Maintain the right knee vubfy-mo-novzey brace (0-90 degrees of flexion) as tolerated [...] Surgery 07/22/2024 4:16 PM documented in this encounterUniversity Hospitals St. John [facility] Center01-27-2025 NoteHNO ID: [id number] Author: SYDNI WAGGONER MD Service: ? Author [...] The patient has tolerated the right knee xmmyh-oi-oaqjfv brace and maintained non-weightbearing recommendations with the [...] [Prochlor* Other: See Co (more content not included)...[facility]01-22-2025 Telephone encounter Note* Telephone Encounter - Mayela Urbano LPN - 07/17/2024 9:33 AM EST Orders signed and faxed back. Sent to Dr. Strange's nurse to keep if needed. Mayela Urbano LPN [facility]01-22-2025 Miscellaneous Notes* Telephone Encounter - Mayela Urbano [...] nurse. Mayela Urbano LPN documented in this encounterUniversity Hospitals St. John [facility] Center01-22-2025 Telephone encounter Note * Telephone Encounter - [...] delivered to pcp nurse. Mayela Urbano LPN [facility]01-17-2025 Telephone encounter Note* Telephone Encounter - Adriano Paniagua RN - 07/12/2024 10:58 AM EST Left detailed vm on identified vm with provider's message below. [facility]01-17-2025 Miscellaneous Notes* Telephone Encounter - Adriano Paniagua RN - 07/12/2024 10:58 AM EST Left detailed vm on identified vm with provider's message below. * Telephone Encounter - Mikayla Strange MD - 07/12/2024 8:48 AM EST Ok to do * Telephone Encounter - Makenna Crowder RN - 07/12/2024 8:45 AM EST Srikanth PT from [facility] Calls and states that patient was supposed to be evaluated for home PT this week. Patient is requesting that the evaluation be next week. Srikanth states that he needs verbal order to be able to visit patient next week. Makenna Crowder RN documented in this encounterUniversity Hospitals St. John [facility] Center01-17-2025 Telephone encounter Note * Telephone Encounter - Mikayla Strange MD - 07/12/2024 8:48 AM EST Ok to do [facility]01-17-2025 Telephone encounter Note* Telephone Encounter - Makenna Crowder RN - 07/12/2024 8:45 AM EST Srikanth PT from [facility] Calls and states that patient was supposed to be evaluated for home PT this week. Patient is requesting that the evaluation be next week. Srikanth states that he needs verbal order to be able to visit patient next week. Makenna Crowder RN [facility]01-08-2025 Telephone encounter Note* Telephone Encounter - Lisset [employer] Supervisor Rosemary Severino - 07/03/2024 3:43 PM EST Called and left message for Adeline Darling [place] [facility]01-08-2025 Miscellaneous Notes* Telephone Encounter - Lisset Cuenca PpgRosemary - 07/03/2024 3:43 PM EST Called and left message for Adeline [facility] [employer] [facility] * Telephone Encounter - Lisset Jcary Rosemary Severnio - 07/03/2024 3:42 PM EST Images from the original note were not included. Sydni Waggoner MD You15 minutes ago (3:27 PM) NWB with active knee range of motion * Telephone Encounter - [facility] [place] [facility], Rosemary - 07/03/2024 12:53 PM EST Adeline from [facility] calling to get orders for PT for this patient Rosemary [facility] documented in this encounterUniversity Hospitals St. [facility]01-08-2025 Telephone encounter Note * Telephone Encounter - Lisset Cuenca PpgRosemary - 07/03/2024 3:42 PM EST Images from the original note were not included. Sydni Waggoner MD You15 minutes ago (3:27 PM) NWB with active knee range of motion [facility]01-08-2025 Telephone encounter Note* Telephone Encounter - Lisset [facility], Rosemary - 07/03/2024 12:53 PM EST Adeline from [facility] calling to get orders for PT for this patient Rosemary Lisset [place] [facility]01-06-2025 Telephone encounter Note* Telephone Encounter - Teresa [...] braces or slings if applicable. Teresa Crawford [facility]01-06-2025 Miscellaneous Notes* Telephone Encounter - Teresa Crawford [...] if applicable. Teresa Crawford documented in this encounterUniversity Hospitals St. John [facility] Center01-03-2025 Telephone encounter Note * Telephone Encounter - Teresa Crawford - 06/28/2024 12:47 PM EST I rec'd a call from the patient that she was notified to come to the ER as her cultures grew something and she would need IV antibiotics. I called [facility] [phone] and requested records from the ER visit. I have them scannedinto [employer]. Teresa Crawford [facility]01-03-2025 Miscellaneous Notes* Telephone Encounter - Teresa Crawford - 06/28/2024 12:47 PM EST I rec'd a call from the patient that she was notified to come to the ER as her cultures grew something and she would need IV antibiotics. I called [facility] [phone] and requested records from the ER visit. I have them scannedinto [employer]. Teresa Crawford documented in this encounterUniversity Hospitals St. John [facility] Center12-30-2024 Telephone encounter Note * Telephone Encounter - Makenna Crowder RN - 06/24/2024 3:18 PM EST See Telephone encounter from 06/24/2024 and distance health visit from 06/23/2024. Patient has beenreferred to ER. [facility]12-30-2024 Miscellaneous Notes* Telephone Encounter - Makenna Crowder [...] calling: self Call patient at: at home [phone] (home) [phone] (cell) Was an appointment scheduled: No Closing statement: Symptom Call: Thank you for calling [facility], your call is very important. A nurse will call in approximately 2-4 hours during business hours. If this is an emergency, please contact 911. Kimberly Ovalle documented in this encounterUniversity Hospitals St. John [facility] Center12-30-2024 Telephone encounter Note * Telephone Encounter - Bre Castillo MA - 06/24/2024 10:17 AM EST Pt notified. Bre Castillo MA [facility]12-30-2024 Miscellaneous Notes* Telephone Encounter - Bre Castillo [...] she go?. How doing? documented in this encounterUniversity Hospitals St. John [facility] Center12-30-2024 Telephone encounter Note * Telephone Encounter - Mikayla Strange MD - 06/24/2024 9:56 AM EST Ua was done not culture and a provider referred her to er based on that. If she is truly unable to urinate, to er [facility]12-30-2024 Telephone encounter Note* Telephone Encounter - Bre Castillo MA - 06/24/2024 9:41 AM EST Pt did not going to ER. She stated she had urine specimen dropped off on 06/21/24. See results. She states she has is unable to ambulate. Has burning and stinging with urination. Bre Castillo MA [facility]12-30-2024 Telephone encounter Note* Telephone Encounter - Kimberly [...] calling: self Call patient at: at home [phone] (home) [phone] (cell) Was an appointment scheduled: No Closing statement: Symptom Call: Thank you for calling [facility], your call is very important. A nurse will call in approximately 2-4 hours during business hours. If this is an emergency, please contact 911. Kimberly Ovalle [facility]12-30-2024 Telephone encounter Note* Telephone Encounter - Mikayla Strange MD - 06/24/2024 8:39 AM EST Urine over weekend looked infected and was referred to the ER. Did she go?. How doing? [facility]12-29-2024 NoteHNO ID: [id number] Author: KERI OSPINA APRN.CNP Service: ? Author Type: Nurse Practitioner Type: Progress Notes Filed: 06/23/2024 17:38 Note Text: Telemedicine Visit - Distance Health Virtual Visit Note Patient seen on [employer] Zoom Video Visit platform. Location of patient: [place] I have communicated my name and active licensure. The patient's identity and physical location were verified at the time of this visit. Either the patient or their legal ambulatory service representative has been informed of the risks [...] recent UTI All questions answered Keri Ospina APRN.[facility]NPKn[facility]12-29-2024 History of Present illness Narrative* Keri Ospina APRN.CNP - 06/23/2024 5:34 PM EST Telemedicine Visit - Distance Health Virtual Visit Note Patient seen on [employer] Video Visit platform. Location of patient: [place] I have communicated my name and active licensure. The patient's identity and physical location wereverified at the time of this visit. Either the patient or their legal ambulatory service representative has been informed of the risks [...] answered Keri Ospina APRN.CNP documented in this encounterUniversity Hospitals St. John [facility] Center12-20-2024 Telephone encounter Note * Telephone Encounter - Mikayla Strange MD - 06/14/2024 2:43 PM EST noted [facility]12-20-2024 Miscellaneous Notes* Telephone Encounter - Mikayla Strange MD - 06/14/2024 2:43 PM EST noted * Telephone Encounter - Linda Madison RN - 06/14/2024 2:12 PM EST Jony from [facility] calling to update provider. States pt refused long term and he had to let provider know. documented in this encounterUniversity Hospitals St. [facility] Center12-20-2024 Telephone encounter Note * Telephone Encounter - Linda Madison, RN - 06/14/2024 2:12 PM EST Jony from [facility] calling to update provider. States pt refused long term and he had to let provider know. [facility]12-16-2024 Telephone encounter Note* Telephone Encounter - Soraida Escudero LPN - 06/10/2024 3:29 PM EST Phoned Helen and went over notes below from Dr Strange with understanding. [facility]12-16-2024 Miscellaneous Notes* Telephone Encounter - Soraida Escudero LPN - 06/10/2024 3:29 PM EST Phoned Helen and went over notes below from Dr Strange with understanding. * Telephone Encounter - Mikayla Strange MD - 06/10/2024 3:26 PM EST Ok. * Telephone Encounter - Soraida Escudero LPN - 06/10/2024 2:44 PM EST Helen from [facility] calling asking for verbal order for long term, patient isdizzy upon standing. She started her PT on Monday and today bp sitting was 120/80 upon standing mql614/80. Patient can not get into the office very easy, she has external fixator on her leg. She sits on the couch a lot of the time. No dizziness sitting or turning her head, upon standing very dizzy. Can call the office to give the verbal order at [phone] or can call Helne back. Please advise documented in this encounterUniversity Hospitals St. [facility] Center12-16-2024 Telephone encounter Note * Telephone Encounter - Mikayla Strange MD - 06/10/2024 3:26 PM EST Ok. [facility]12-16-2024 Telephone encounter Note* Telephone Encounter - Soraida Escudero LPN - 06/10/2024 2:44 PM EST Helen from [facility] calling asking for verbal order for long term, patient isdizzy upon standing. She started her PT on Monday and today bp sitting was 120/80 upon standing kit550/80. Patient can not get into the office very easy, she has external fixator on her leg. She sits on the couch a lot of the time. No dizziness sitting or turning her head, upon standing very dizzy. Can call the office to give the verbal order at [phone] or can call Helen back. Please advise [facility]12-10-2024 Telephone encounter Note* Telephone Encounter - Soraida Escudero LPN - 06/04/2024 2:58 PM EST Phon ed [facility] left detailed message on voicemail with orders as below from Dr Strange. [facility]12-10-2024 Miscellaneous Notes* Telephone Encounter - Soraida Escudero LPN - 06/04/2024 2:58 PM EST Phon ed [facility] left detailed message on voicemail with orders as below from Dr Strange. * Telephone Encounter - Mikayla Strange MD - 06/04/2024 2:09 PM EST Ok to do * Telephone Encounter - Makenna Crowder RN - 06/04/2024 12:14 PM EST Will from [facility] [employer] calling and asking if provider will follow orders for home health physical therapy and occupational therapy? Makenna Crowder RN documented in this encounterUniversity Hospitals St. [facility]12-10-2024 Telephone encounter Note * Telephone Encounter - Mikayla Strange MD - 06/04/2024 2:09 PM EST Ok to do [facility]12-10-2024 Telephone encounter Note* Telephone Encounter - Makenna Crowder RN - 06/04/2024 12:14 PM EST Will from [facility] calling and asking if provider will follow orders for home health physical therapy and occupational therapy? Makenna Crowder RN [facility]12-09-2024 NoteHNO ID: [id number] Author: SYDNI WAGGONER MD Service: ? Author [...] nausea Vaibhav [Fexofenadi* Intoler (more content not included)...[facility]11-14-2024 NoteHNO ID: [id number] Author: KIRSTEN ROSARIO RN Service: Care Management Author Type: Registered Nurse Type: Care Mgt Progress Note Filed: 05/09/2024 14:42 Note Text: CARE MANAGEMENT DISCHARGE NOTE SERVICE DATE: May 09, 2024 SERVICE TIME: 2:40 PM Admission Date: 05/02/2024 LOS: 7 days Discharge Arrangement Discharge Arrangement: Jail Facility Services Arranged Provider Name: Hunter Caregiver Assessment Caregiver is ready, willing and able to meet the patient's needs as recommended by the inter-professional team: Yes Name of Caregiver: Manny Long [facility] staff Transportation Arrangements Transportation Arrangements: Ambulance Transportation Agency and Phone #:: [facility] ( [facility] ) [phone] Date of Trip: 05/09/24 Time of Trip: 1630 Type of Service: BLS Non-emergency Is Patient Medicaid Pending?: No Destination: [facility] [address] [place] [address] Handoff Communication: Handoff to: Specialty Road Boss Specialty Road Boss Name/Phone: Sheba Shaw Additional Information: Chart reviewed.Spoke to patient. Plan for DC today [facility]. Patient agreeable. [facility] to transport via cot at 1630 . Transport packet placed on front of chart. RN made aware. Current CM needs addressed. No new needs identified at this time. CM will continue to follow clinical course for further transitional, discharge or POC needs. Discharge Information Row Name ED to Hosp-Admission (Current) from 05/02/2024 in [facility] Facility Agency [facility] [address] [place] [address] Phone# SIGNATURE: Kirsten Rosario RN PATIENT NAME: Zackery Nunez DATE: May 09, 2024 TIME: 2:40 PM CONTACT #: [phone] Light A.R. [facility]11-14-2024 Note HNO ID: [id number] Author: KIRSTEN ROSARIO RN Service: Care Management Author Type: Registered Nurse Type: Care Mgt Progress Note Filed: 05/09/2024 12:28 Note Text: CARE MANAGEMENT PROGRESS NOTE SERVICE DATE: 05/09/2024 SERVICE TIME: 11:00 AM LOS: 7 days Post-Acute Discharge Planning Patient Goal(s): Less pain, General wellness Caret of Choice Explained: Discharge Planning Participant(s): Patient/Family [...] 09, 2024 TIME: 11:00 AM PAGER/CONTACT #: [phone] Light A.R. Gould Hospital 05-09-2024 NoteHNO ID: [id number] Author: AMADO MCBRIDE ? Service: Care Management Author Type: ? Type: Care Mgt Progress Note Filed: 05/09/2024 10:41 Note Text: [facility] PRECERT NOTE MMO MEDADVANTAGE PPO approved Jail Facility for [facility]. Precert approved for dates: 05/09/2024 - 05/15/2024. For any additional questions regarding approvals, transport or care management needs, please contact the CM assigned to this patient in the Treatment Team. SIGNATURE: Amado Mcbride DATE: May 09, 2024 TIME: 10:40 AMNorthern Light A.R. Gould Hospital11-14-2024 [id number] (AGENT OF COVID-19) RNA: Not detected INFLUENZA A RNA: Not detected INFLUENZA B RNA: Not detected RESPIRATORY SYNCYTIAL VIRUS (RSV) RNA: Not detectedNorthern Light A.R. Gould HospitalComment on above:Performed By: #### [id number] #### [facility] CLIA [id number] [address] [id number] NoteHNO ID: [id number] Author: DEMARIO YANG APRN.INSPECTOR AND HAND PACKAGER Service: Pain Management Author Type: Nurse Practitioner Type: Progress Notes Filed: 05/09/2024 10:17 Note Text: INPATIENT PAIN MANAGEMENT NOTE [facility] Zackery Nunez [id number]-* Pain Management Diagnoses: Right periprosthetic proximal tibial [...] inability to ambulate. Patient was seen at [place] ED and transferred to [facility] for surgical intervention of right periprosthetic proximal tibia fracture Patient goes to Dr. Ward in [place] for pain management since 2012. Home pain [...] 136/49 128/59 Pulse: 82 86 76 Resp: 18 17 18 Temp: 37.5 ?C (99.5 ?F) 36.8 ?C (98.2 ?F) 37.3 ?C (99.1 ?F) TempSrc: Oral Oral SpO2: 95% 99 (more content not included)...[facility] 05-09-2024 NoteHNO ID: [id number] Author: SYDNI WAGGONER MD Service: Orthopaedic Surgery [...] Sahara Royal MD Orthopedic Surgery 05/09/2024 5:53 [facility]11-13-2024 NoteHNO ID: [id number] Author: KIRSTEN ROSARIO RN Service: Care Management Author Type: Registered Nurse Type: Care Mgt Progress Note Filed: 05/08/2024 16:10 Note Text: CARE MANAGEMENT PROGRESS NOTE SERVICE DATE: 05/08/2024 SERVICE TIME: 4:09 PM LOS: 6 days Post-Acute Discharge Planning Patient Goal(s): Less pain, General wellness Caret of Choice Explained: Discharge Planning Participant(s): Patient/Family Comments: Anticipated # of Days Until Discharge: Transport at Discharge: Needs Prior to Discharge: Needs Prior to Discharge: To Be Determined, Accepting Facility, Bed Availability, Precertification, Discharge Transportation Post-Acute Discharge Plan: Chart reviewed, spoke to patient and at bedside. SNF option received and referrals sent. [facility] in [place] is able to accept. 7000 tasked to [facility]. Precert start tasked. CM will continue to follow clinical course for further transitional, discharge or POC needs. SIGNATURE: Kirsten Rosario RN PATIENT NAME: Zackery Nunez DATE: May 08, 2024 TIME: 4:08 PM PAGER/CONTACT #: [phone] Light A.R. Gould Hospital 05-08-2024 NoteHNO ID: [id number] Author: NATE ACOSTA MD Service: Orthopaedic Surgery [...] MD Orthopaedic Surgery May 08, 2024 3:47 [facility]11-13-2024 NoteHNO ID: [id number] Author: KIRSTEN ROSARIO RN Service: Care Management Author Type: Registered Nurse Type: Care Mgt Progress Note Filed: 05/08/2024 15:50 Note Text: CARE MANAGEMENT PROGRESS NOTE SERVICE DATE: 05/08/2024 SERVICE TIME: 10:58 AM LOS: 6 days Post-Acute Discharge Planning Patient Goal(s): Less pain, General wellness Caret of Choice Explained: Discharge Planning Participant(s): Patient/Family Comments: Anticipated # of Days Until Discharge: Transport at Discharge: Needs Prior to Discharge: Needs Prior to Discharge: To Be Determined, Accepting Facility, Bed Availability, Precertification, Discharge Transportation Post-Acute Discharge Plan: Chart reviewed. New referral sent to [facility] ([facility] Will f/u with updates. CM will continue to follow clinical course for further transitional, discharge or POC needs. Update May 08, 2024 3:49 PM Additional choices finally given. Referrals sent to: [facility] [place] SIGNATURE: Kirsten Rosario RN PATIENT NAME: Zackery Nunez DATE: May 08, 2024 TIME: 10:58 AM PAGER/CONTACT #: [phone] Light A.R. Gould Hospital 05-08-2024 NoteHNO ID: [id number] Author: SIMONE ZAMARRIPA APRN.DIETETIC TECHNICIAN Service: Pain Management Author Type: Nurse Specialist Type: Progress Notes Filed: 05/08/2024 12:29 Note Text: INPATIENT PAIN MANAGEMENT NOTE [facility] Zackery Nunez [id number]-* Pain Management Diagnoses: Right periprosthetic proximal tibial [...] inability to ambulate. Patient was seen at [place] ED and transferred to [facility] for surgical intervention of right periprosthetic proximal tibia fracture Patient goes to Dr. Ward in [place] for pain management since 2012. Home pain [...] activity was identified. 05/08/2024 by Simone Zamarripa APRN.DIETETIC TECHNICIAN 58 prescriptions from 1 prescriber. Opiate [...] Oral Oral Oral SpO2 (more content not included)...[facility]11-13-2024 Note HNO ID: [id number] Author: SYDNI WAGGONER MD Service: Orthopaedic Surgery [...] Sahara Royal MD Orthopedic Surgery 05/08/2024 5:53 [facility]11-12-2024 NoteHNO ID: [id number] Author: PERLA VILA MD Service: Anesthesiology Author [...] May 07, 2024 TIME: 5:17 PM CSN: [id number] Light A.R. Gould Hospital11-12-2024 NoteHNO ID: [id number] Author: VESNA JACOME RN Service: ? Author Type: Registered Nurse Type: Nursing Progress Note Filed: 05/07/2024 17:09 Note Text: Dr. Vila at bedside to administer peripheral nerve blockNorthern Light A.R. Gould Hospital11-12-2024 NoteHNO ID: [id number] Author: TANJA NOLAND APRN.CRNA Service: Anesthesiology Author Type: Nurse Local Az Truck Driver Type: Anesthesia Procedure Notes Filed: 05/07/2024 14:51 Note Text: ANESTHESIOLOGY PROCEDURE NOTE Airway General Information Procedure Start Time/Medication Administration: 05/07/2024 2:34 PM Procedure End Time: 05/07/2024 2:35 PM Patient location during procedure: OR Timeout Performed Pre-procedure: timeout performed Consent Obtained: Yes Patient identity confirmed: arm band and patient Staffing HEALTH CARE COORDINATOR: Tanja Noland APRN.HEALTH CARE COORDINATOR Performed by: anesthesiologist and HEALTH CARE COORDINATOR Indications and Patient Condition Indications for airway management: anesthesia and airway protection Preoxygenated: yes anesthesia circuit Patient position: sniffing Method: asleep Cricoid Pressure: No Manual In-Line Stabilization: No Difficult Mask: No Final Airway Details Final airway type: endotracheal airway Final Endotracheal Airway: ETT Cuffed: yes Successful intubation technique: video laryngoscopy Devices used: SparkWords Endotracheal tube insertion site: oral Blade: Margo [...] May 07, 2024 TIME: 2:50 PM CSN: [id number] Light A.R. Gould Hospital11-12-2024 NoteHNO ID: [id number] Author: KIRSTEN ROSARIO RN Service: Care Management Author Type: Registered Nurse Type: Care Mgt Progress Note Filed: 05/07/2024 14:48 Note Text: CARE MANAGEMENT PROGRESS NOTE SERVICE DATE: 05/07/2024 SERVICE TIME: 2:47 PM LOS: 5 days Post-Acute Discharge Planning Patient Goal(s): Less pain, General wellness Caret of Choice Explained: Discharge Planning Participant(s): Patient/Family Comments: Anticipated # of Days Until Discharge: Transport at Discharge: Needs Prior to Discharge: Needs Prior to Discharge: To Be Determined, Accepting Facility, Bed Availability, Precertification, Discharge Transportation Post-Acute Discharge Plan: Chart reviewed, patient in [facility] today. [facility] is unable to accept. Awaiting additional choices to send referrals. CM will continue to follow clinical course for further transitional, discharge or POC needs. SIGNATURE: Kirsten Rosario RN PATIENT NAME: Zackery Nunez DATE: May 07, 2024 TIME: 2:47 PM PAGER/CONTACT #: [phone] Light A.R. Gould Hospital 05-07-2024 NoteHNO ID: [id number] Author: DAFNE LEVINE MD Service: Pain Management [...] inability to ambulate. Patient was seen at [place] ED and transferred to [facility] for surgical intervention of right periprosthetic proximal tibia fracture Patient goes to Dr. Ward in [place] for pain management since 2012. Home pain [...] Dafne Levine MD 10 mg at 05/07/24 0846 HYDROmorphone 0.5 mg injection (DILAUDID) 0.5 mg [...] 05/06/241945 estradiol 3 g vaginal cream (ESTRACE) [id number] Applicator VAGINAL DAILY Sahara Royal MD 3 g at 05/06/24823 NaCl 0.9% iv flush bag 20 mL INTRAVENOUS PRN Sahara Royal MD ondansetron (PF) 4 mg injection (ZOFRAN) 4 mg INTRAVENOUS q 6 H PRN Sahara Royal MD 4 mg at 05/06/24 1614 melatonin 3 mg tab(s) 3 mg ORAL AT BEDTIME PRN Sahara Royal MD 3 mg at 05/06/24 194 acetaminophen 1,000 mg tab(s) (TYLENOL) 1,000 mg ORAL q 8 H Sahara Royal MD 1,000 mg at 05/07/[address] 40 mg tab(s) (PROTONIX) 40 mg ORAL DAILY (6 AM) Sahara Royal MD 40 mg at 05/07/24 044 senna-docusate 8.6-50 mg 1 tablet (SENNA-S) 1 tablet ORAL BID Sahara Royal MD 1 tablet at 05/06/241946 gabapentin 900 mg cap(s) (NEURONTIN) 900 mg ORAL DAILY AT 12 PM Sahara Royal MD 900 mg at 05/06/24 115 gabapentin 600 mg cap(s) (NEURONTIN) 600 mg [...] Disp: , Rfl: citalopram (more content not included)...[facility]11-12-2024 NoteHNO ID: [id number] Author: SYDNI WAGGONER MD Service: Orthopaedic Surgery [...] Sahara Royal MD Orthopedic Surgery 05/07/2024 5:53 [facility]11-11-2024 NoteHNO ID: [id number] Author: SYDNI WAGGONER MD Service: Care Management [...] Makowski, MD Orthopaedic Trauma Surgery 05/06/2024 11:31 [facility]11-11-2024 NoteHNO ID: [id number] Author: KIRSTEN ROSARIO RN Service: Care Management Author Type: Registered Nurse Type: Care Mgt Progress Note Filed: 05/06/2024 09:42 Note Text: CARE MANAGEMENT PROGRESS NOTE SERVICE DATE: 05/06/2024 SERVICE TIME: 9:31 AM LOS: 4 days Post-Acute Discharge Planning Patient Goal(s): Less pain, General wellness Caret of Choice Explained: Discharge Planning Participant(s): Patient/Family [...] wanting to look at facilities. Patient mentioned [facility] as a good option. Referral sent. CM will continue to follow clinical course for further transitional, discharge or POC needs. SIGNATURE: Kirsten Rosario RN PATIENT NAME: Zackery Nunez DATE: May 06, 2024 TIME: 9:31 AM PAGER/CONTACT #: [phone] Light A.R. Gould Hospital 05-06-2024 NoteHNO ID: [id number] Author: DAFNE LEVINE MD Service: Pain Management [...] inability to ambulate. Patient was seen at [place] ED and transferred to [facility] for surgical intervention of right periprosthetic proximal tibia fracture Patient goes to Dr. Ward in [place] for pain management since 2012. Home pain [...] BID Sahara Royal MD 2 tablet at 05/06/24822 senna 17.2 mg tab(s) (SENOKOT) 17.2 mg ORAL AT BEDTIME Sahara Royal MD 17.2 mg at 05/03/241954 enoxaparin 40 mg injection (LOVENOX) 40 mg SUBCUTANEOUS q 24 HR Sahara Royal MD 40 mg at 05/06/24822 amitriptyline 10 mg tab(s) (ELAVIL) 10 mg ORAL AT BEDTIME Sahara Royal MD 10 mg at 05/05/241933 citalopram 40 mg tab(s) (CeleXA) 40 mg [...] Royal MD 10 mg at 05/05/24 193 busPIRone 30 mg tab(s) (BUSPAR) 30 mg ORAL BID Sahara Royal MD 30 mg at 05/06/24 0823 estradiol 3 g vaginal cream (ESTRACE) 0.26797781814589670 Applicator VAGINAL DAILY Sahara Royal MD 3 [...] Sahara Royal MD 600 mg at 05/05/24 193 buprenorphine transdermal patch 20 mcg/hr (BUTRANS) 1 [...] (CELEXA) 40 mg tablet, (more content not included)...[facility]11-11-2024 NoteHNO ID: [id number] Author: YSDNI WAGGONER MD Service: Orthopaedic Surgery Author Type: [...] 33.28 kg/m? Intake/Output Summary (Last 24 hours) 05/05 2300 - 05/06 0659 In: - Out: 900 [...] Sahara Royal MD Orthopedic Surgery 05/06/2024 5:53 [facility]11-10-2024 NoteHNO ID: [id number] Author: KELLI DE LA TORRE MD Service: [...] out with any questions or concerns as needed.[facility]11-10-2024 NoteHNO ID: [id number] Author: LASHAY AKBAR RN Service: Care Management [...] 05, 2024 TIME: 12:42 PM PAGER/CONTACT #: [phone] Light A.R. Gould Hospital11-10-2024 NoteHNO ID: [id number] Author: SYDNI WAGGONER MD Service: Orthopaedic Surgery [...] from 5p-6a and on weekends for any issues.[facility]11-09-2024 NoteHNO ID: [id number] Author: DEMARIO YANG APRN.INSPECTOR AND HAND PACKAGER Service: Pain Management Author Type: Nurse Practitioner [...] TKA 10 years ago) opiate dependent presented 11/7 after injury on her deck. Patient's left leg fell through the deck causing her right leg to bend awkwardly with immediate severe pain in her right lower extremity inability to ambulate. Patient was seen at [place] ED and transferred to [facility] for surgical intervention of right periprosthetic proximal tibia fracture Patient goes to Dr. Ward in [place] for pain management since 2012. Home pain regimen includes Butrans 20 mcg patch (placed yesterday), Percocet 5/325 up to 3 tabs daily, gabapentin 900 mg at 12N and 600 mg at 10PM. She lives at home with her . OARRS Review: PDMP website checked and validated. All prescriptions have been APPROPRIATELY filled. No suspicious activity was identified. 05/04/2024 by Demario Yang APRN.INSPECTOR AND HAND PACKAGER 58 prescriptions from 1 prescriber. Opiate dependent. [...] 05/03/241954 estradiol 3 g vaginal cream (ESTRACE) 0.61848043537296530 Applicator VAGINAL DAILY Sahara Royal MD NaCl [...] day., Disp: 180 t (more content not included)...[facility]11-09-2024 NoteHNO ID: [id number] Author: SYDNI WAGGONER MD Service: Orthopaedic Surgery [...] from 5p-6a and on weekends for any issues.[facility]11-08-2024 NoteHNO ID: [id number] Author: SYDNI WAGGONER MD Service: Orthopaedic Surgery Author Type: Physician Type: Plan of Care Filed: 05/03/2024 20:33 Note Text: Orthopaedic Trauma Surgery Plan for return to the OR next week for open reduction internal fixation of the right periprosthetic proximal tibia fracture. Sydni Waggoner MD Orthopaedic Trauma Surgery 05/03/2024 8:33 [facility]11-08-2024 NoteHNO ID: [id number] Author: LASHAY AKBAR RN Service: Care Management [...] 03, 2024 TIME: 2:33 PM PAGER/CONTACT #: [phone] Light A.R. Gould Hospital11-08-2024 NoteHNO ID: [id number] Author: LASHAY AKBAR RN Service: Care Management Author Type: Registered Nurse Type: Care Mgt Initial Assessment Filed: 05/03/2024 13:59 Note Text: CARE MANAGEMENT: ASSESSMENT AND DISCHARGE PLAN SERVICE DATE: May 03, 2024 SERVICE TIME: 1:57 PM PCP: Mikayla Strange MD Primary Contact: Extended Emergency Contact Information Primary Emergency Contact: Frantz Nunez [place] Mobile Relation: Spouse Admission Status: Inpatient Insurance Provider: O MEDADVANTAGE PPO Discharge Planning requested by: Per Department Practice Potential Transition Plans Home;Home OT/PT;Jail Facility/Intermediate Care Facility;To Be Determined Advance Directives Current Advance Directive: None Photoflash Powder Mixer Attempted to Assist with AD Completion: Yes Action: Education Provided Current Living Arrangements and Support Lives with: Spouse/significant other Type of Residence: Private Residence (House) Support: Family members, Spouse/significant other How do you manage to accomplish the following: Independent: Ambulation;Bathe/Shower;Dress;Meals/Meal Prep;Going to the bathroom;Medication Management;Transportation to appointments/community Current Services/Equipment Current Post-Acute Service(s): None Discharge Planning Patient Goal(s): Less pain, General wellness Caret of Choice Explained: Caret of Choice Given: No Reason Not Given: [...] 03, 2024 TIME: 1:57 PM CONTACT #: [id number] Light A.R. Gould Hospital11-08-2024 Note HNO ID: [id number] Author: KELLI DE LA TORRE MD Service: [...] with any urgent medical questions or concerns. [facility]11-08-2024 NoteHNO ID: [id number] Author: TANJA HILLS APRN.CRNA Service: Anesthesiology Author Type: Nurse Local Az Truck Driver Type: Anesthesia Procedure Notes Filed: 05/03/2024 09:00 Note Text: ANESTHESIOLOGY PROCEDURE NOTE Airway General Information Procedure Start Time/Medication Administration: 05/03/2024 8:48 AM Procedure End Time: 05/03/2024 8:49 AM Patient location during procedure: OR Timeout Performed Pre-procedure: timeout performed Consent Obtained: Yes Patient identity confirmed: arm band and patient Staffing Anesthesiologist: Sydni Bender MD HEALTH CARE COORDINATOR: Lauren Vides APRN.HEALTH CARE COORDINATOR Performed by: HEALTH CARE COORDINATOR and anesthesiologist Indications and Patient Condition Indications for airway management: anesthesia Preoxygenated: yes anesthesia circuit Patient position: sniffing Method: asleep Final Airway Details Final airway type: endotracheal airway Final Endotracheal Airway: ETT Cuffed: yes Successful intubation technique: video laryngoscopy Devices used: SparkWords Endotracheal tube insertion site: oral Blade: Margo Blade size: #3 ETT size (mm): 7.0 Measured from: lips Measurement (cm): 22 Placement verified by: chest auscultation and capnometry Cormack-Lehane Classification: grade I - full view of glottis Number of attempts at approach: 1 Failed airway: no Unrecognized esophageal intubation: no Airway not difficult SIGNATURE: Tanja Hills APRN.HEALTH CARE COORDINATOR PATIENT NAME: Zackery Nunez DATE: May 03, 2024 TIME: 8:59 AM CSN: [id number] Light A.R. Gould Hospital11-08-2024 NoteHNO ID: [id number] Author: DAFNE LEVINE MD Service: Pain Management [...] inability to ambulate. Patient was seen at [place] ED and transferred to [facility] for surgical intervention of right periprosthetic proximal tibia fracture Patient goes to Dr. Ward in [place] for pain management since 2012. Home pain [...] H PRN Nate Acosta MD [Transfer Hold] promethazine 25 mg [...] Hold] estradiol 3 g vaginal cream (ESTRACE) [id number] Applicator VAGINAL DAILY Nate Acosta MD [Transfer [...] 100 mL (ANCEF) INTRAVENOUS PRN Tanja Hills APRN.HEALTH CARE COORDINATOR 2 g at 05/03/24 0855 dexAMETHasone sodium phosphate injection (DECADRON) INTRAVENOUS PRN Tanja Hills APRN.HEALTH CARE COORDINATOR 4 mg at 05/03/24 0855 ondansetron (PF) injection (ZOFRAN) INTRAVENOUS PRN Tanja Hills APRN.HEALTH CARE COORDINATOR 4 mg at 05/03/24 0855 lactated ringers iv infusion INTRAVENOUS X (ONE-STEP ONLY) CONTINUOUS PRN Tanja Hills APRN.HEALTH CARE COORDINATOR New B (more content not included)...[facility]11-08-2024 NoteHNO ID: [id number] Author: SYDNI WAGGONER MD Service: Orthopaedic Surgery [...] ILDEFONSO Maya MD Orthopaedic Surgery 05/03/2024 6:03 [facility]11-07-2024 NoteHNO ID: [id number] Author: NATE ACOSTA MD Service: Orthopaedic Surgery [...] MD Orthopaedic Surgery May 02, 2024 10:02 [facility]10-28-2024 Telephone encounter Note* Telephone Encounter - Soraida [...] Escudero LPN April 22, 2024 9:[address] [facility]10-28-2024 Miscellaneous Notes* Telephone Encounter - Soraida Escudero [...] 22, 2024 9:18 AM documented in this encounterUniversity Hospitals St. [facility]10-[facility]-2024 Telephone encounter Note * Telephone Encounter - Mayela Chopra MA - 04/12/2024 2:10 PM EDT Pt viewed in Mychart. Mayela Chopra MA [facility]10-18-2024 Miscellaneous Notes* Telephone Encounter - Mayela Chopra MA - 04/12/2024 2:10 PM EDT Pt viewed in Xylemehart. Mayela Chopra MA * Telephone Encounter - Lula Segovia LPN - 04/11/2024 12:54 PM EDT Called patient. No answer- left messenger to call clinic for results or check her MyChart. DUANE Cruz * Telephone Encounter - Lula Segovia LPN - 04/11/2024 12:52 PM EDT ----- Message from Kd Stockton PA-C sent at 04/10/2024 7:05 PM EDT ----- No infection in the urine ALLA Hull, KATHY CM documented in this encounterUniversity Hospitals St. [facility]10-17-2024 Telephone encounter Note * Telephone Encounter - Lula Segovia LPN - 04/11/2024 12:54 PM EDT Called patient. No answer- left messenger to call clinic for results or check her MyChart. DUANE Cruz [facility]10-17-2024 Telephone encounter Note* Telephone Encounter - Lula Segovia LPN - 04/11/2024 12:52 PM EDT ----- Message from Kd Stockton PA-C sent at 04/10/2024 7:05 PM EDT ----- No infection in the urine ALLA Hlul MT, PA-C [facility]10-15-2024 Instructions* Patient Instructions* Kd Stockton PA-C - 04/09/2024 3:32 PM EDT > 3 mo. Appt w/ B. ALLA Stockton MT, PA-C for new Rx Follow-up documented in this encounterUniversity Hospitals St. John [facility] Center10-15-2024 NoteHNO ID: [id number] Author: KD STOCKTON PA-C Service: ? Author Type: Physician External Relations Director Type: Progress Notes Filed: 04/09/2024 17:48 Note Text: [facility] NEW PATIENT CLINIC NOTE SERVICE DATE: [...] Grandmother SOCIAL HISTORY: Social (more content not included)...[facility]10-15-2024 History of Present illness Narrative* Kd Stockton PA-C - 04/09/2024 3:07 PM EDT Images from the original note were not included. [facility] NEW PATIENT CLINIC NOTE [...] Friends and Family: Once a week Attends [employer]: Never Active Member of Club[employer] or [...] mo. Appt w/ B. ALLA [place], KATHY for new Rx Follow-up Consultation requested by Mikayla Straneg MD [address] [facility] [id number] for an opinion regarding Zackery Nunez patient and my final recommendations will be communicated back to the requesting physician by way of shared Medical record or letter via US mail. ALLA [place] MT, PA-C documented in this encounterUniversity Hospitals St. [facility]09-14-2024 Telephone encounter Note * Telephone Encounter - Makenna Crowder RN - 03/09/2024 10:45 AM EDT Patient notified of results and provider's instructions. Patient verbalizes understanding. Makenna Crowder RN [facility]09-14-2024 Miscellaneous Notes* Telephone Encounter - Makenna Crowder [...] microscopic blood, see urology documented in this encounterUniversity Hospitals St. John [facility] Center09-14-2024 Telephone encounter Note * Telephone Encounter - Hallie Adam LPN - 03/09/2024 10:41 AM EDT Message left to pt that the office would send pt the providers his response via my chart. She can call back if she has any questions. [facility]-14-[facility]24 Telephone encounter Note* Telephone Encounter - Mikayla Strange MD - 03/09/2024 7:50 AM EDT Her urine does not show an infection. Since still with symptoms and microscopic blood, see urology [facility]09-11-2024 Telephone encounter Note* Telephone Encounter - Evelyn Castaneda MA - 03/06/2024 9:43 AM EDT Patient informed and verbalized understanding. Evelyn Castaneda MA [facility]09-11-2024 Miscellaneous Notes* Telephone Encounter - Evelyn Castaneda [...] Denies fever. Please advise. Adeline Hensley RN * Telephone Encounter - Mikayla Strange MD - 03/06/2024 5:14 AM EDT Urine shows blood. No white cells. Any current urinary symptoms still? documented in this encounterUniversity Hospitals St. [facility]09-11-2024 Telephone encounter Note * Telephone Encounter - Mikayla Strange MD - 03/06/2024 9:26 AM EDT Will need culture done. If negative, will need to see urology. [facility]-2024 Telephone encounter Note* Telephone Encounter - Adeline [...] Denies fever. Please advise. Adeline Hensley RN [facility]09-11-2024 Telephone encounter Note* Telephone Encounter - Mikayla Strange MD - 03/06/2024 5:14 AM EDT Urine shows blood. No white cells. Any current urinary symptoms still? [facility]08-27-[facility]24 Instructions* Patient Instructions* Mikayla Strange MD - 02/20/2024 4:13 PM EDT Taste changes in patients who have long COVID are common and can reduce quality of life. So what ifyou could change your taste receptors and potentially increase the palatability of certain foods. Synelmiraum carinam is a [place] plant that produces [...] Miracle fruit berries can be bought on [employer]. Stomach ache and throat discomfort have been reported from taking the berries. If this occurs stop taking the miracle fruit. Do not take if you are allergic to this fruit. documented in this encounterUniversity Hospitals St. John [facility]08-27-2024 NoteHNO ID: [id number] Author: MIKAYLA STRANGE MD Service: ? Author [...] for this visit. ALLERGIES: ALLERGIES Allergen Reactions Vabihav [Fexofenadi* Intolerance Augmentin [Amoxicil* Intolerance Bentyl [Dicyclomine* [...] Diabetes Father Hypertension Fat (more content not included)...[facility] 02-20-2024 History of Present illness Narrative* Mikayla [...] SCREENING Mikayla Strange MD documented in this encounterUniversity Hospitals St. John [facility] Center08-12-2024 Telephone encounter Note * Telephone Encounter - Linda Madison RN - 02/05/2024 2:56 PM EDT Katerine pharmacist with [employer] calling to follow up on a fax request for pt's Atorvastatin and his Buspirone. Explained we don't accept fax requests. [facility] is who [employer] uses so that is where prescriptions need [...] Madison RN February 05, 2024 3:[address] [facility]08-12-2024 Miscellaneous Notes* Telephone Encounter - Linda Madison RN - 02/05/2024 2:56 PM EDT Katerine pharmacist with [employer] calling to follow up on a fax request for pt's Atorvastatin and his Buspirone. Explained we don't accept fax requests. [facility] is who [employer] uses so that is where prescriptions need [...] 05, 2024 3:54 PM documented in this encounterUniversity Hospitals St. John [facility]07-15-2024 Telephone encounter Note * Telephone Encounter - Lara Brown RN - 01/08/2024 12:31 PM EDT Patient calls and notified of results and providers instructions. Patient verbalizes understanding. Lab appt scheduled. Lara Brown RN [facility]07-15-2024 Miscellaneous Notes* Telephone Encounter - Lara Brown [...] labs in one week documented in this encounterUniversity Hospitals St. [facility]07-15-2024 Telephone encounter Note * Telephone Encounter - Jade Lopez LPN - 01/08/2024 9:25 AM EDT Left message to call and speak with nurse. [facility]07-15-2024 Telephone encounter Note* Telephone Encounter - Mikayla Strange MD - 01/08/2024 9:12 AM EDT Protein levels are slightly higher. Make sure taking boost, ensure or carnation instant breakfast regularly. Slightly anemic. Recheck anemia labs in one week [facility]07-12-2024 Instructions* Patient Instructions* Mikayla Strange MD - [...] Miracle fruit berries can be bought on [employer]. Stomach ache and throat discomfort have been reported from taking the berries. If this occurs stop taking the miracle fruit. Do not take if you are allergic to this fruit. documented in this encounterUniversity Hospitals St. [facility]07-12-2024 NoteHNO ID: [id number] Author: MIKAYLA STRANGE MD Service: ? Author [...] Other: See Comments shaky/headaches (more content not included)...[facility] 01-05-2024 History of Present illness Narrative* Mikayla tSrange MD - 01/05/2024 11:20 AM EDT Patient [...] A1C Mikayla Strange MD documented in this encounterUniversity Hospitals St. John [facility] Center05-31-2024 Telephone encounter Note * Telephone Encounter - Adriano Paniagua RN - 11/24/2023 9:43 AM EDT Pt returned call and given provider's message below with verbalized understanding. Patient agreeable. [facility]-31-2024 Miscellaneous Notes* Telephone Encounter - Adriano Paniagua RN - 11/24/2023 9:43 AM EDT Pt returned call and given provider's message below with verbalized understanding. Patient agreeable. * Telephone Encounter - Sharon Rivera MA - 11/24/2023 9:29 AM EDT Left message for patient to call office back Sharon Rivera MA * Telephone Encounter - Mikayla Strange MD - 11/24/2023 8:03 AM EDT Labs show her protein status is low. Add ensure or boost once a day until follow up. documented in this encounterUniversity Hospitals St. John [facility] Center05-31-2024 Telephone encounter Note * Telephone Encounter - Sharon Rivera MA - 11/24/2023 9:29 AM EDT Left message for patient to call office back Sharon Rivera MA [facility]05-31-2024 Telephone encounter Note* Telephone Encounter - Mikayla Strange MD - 11/24/2023 8:03 AM EDT Labs show her protein status is low. Add ensure or boost once a day until follow up. [facility]05-28-20[facility] History of Present illness Narrative* Mikayla Strange [...] PREALBUMIN Mikayla Strange MD documented in this encounterUniversity Hospitals St. John [facility] Center05-23-2024 Telephone encounter Note * Telephone Encounter - Ginger Lundberg APRN.CNS - 11/16/2023 12:21 PM EDT The following approved medication requests have been transmitted electronically. Requested Prescriptions Pending Prescriptions Disp Refills metFORMIN ER (GLUCOPHAGE XR) 500 mg 24 hr tablet 90 tablet 3 Sig: Take 1 tablet by mouth daily with breakfast. Ginger Lundberg APRN.CNS [facility]05-23-2024 Miscellaneous Notes* Telephone Encounter - Ginger Lundberg [...] you. Adeline Hensley RN. documented in this encounterUniversity Hospitals St. John [facility] Center05-23-2024 Telephone encounter Note * Telephone Encounter - [...] Please advise. Thank you. Adeline Hensley RN. [facility]02-20-2024 Miscellaneous Notes* Telephone Encounter - Demario Mulligan [...] pharmacy. No need to notify patient. Demario Ponce documented in this encounterUniversity Hospitals St. John [facility] Center02-13-2024 Miscellaneous Notes* Telephone Encounter - Adeline Hensley [...] you. Adeline Hensley RN. documented in this encounterUniversity Hospitals St. John [facility]12-05-2023 Miscellaneous Notes* Letter - Coordinator, Mammography - 05/30/2023 7:35 AM EST May 30, 2023 PID: [id number] Zackery Nunez [address] [place] [address] Dear Ms. Nunez, We are pleased to [...] report will be [facility] at [facility] as part of your permanent medical record and are available for your continuing care. Thank you for allowing us to help in meeting your health care needs. Sincerely, Dr. Chester Interpreting Radiologist [facility] (Normal over 40) documented in this encounterUniversity Hospitals St. John [facility] Center12-04-2023 History of Present illness Narrative* Viviana Lawrence, Mammo Tech - 05/29/2023 12:30 PM EST [...] DATA: Not applicable SIGNED BY: Viviana Lawrence [employer] May 29, 2023 12:43 PM documented in this encounterUniversity Hospitals St. John [facility] Center11-17-2023 History of Present illness Narrative* Mikayla Strange MD - 05/12/2023 1:48 PM EST Patient presents with: 6 Month Exam HPI: Patient presents today for office visit for follow up. Requesting Rx for larger diabetic shoes. Has permanent insoles. Insoles have helped. Uses Electrochaea. Sees Dr. Muniz, Podiatry. Has not seen [...] Seeing Rheum. Emotionally doing well. Followed by [facility]. Dr. Bdeolla. Hx of glaucoma. Continues on drops. Recently [...] for annual exam in one year. - [facility] SCREENING Mikayla Strange MD documented in this encounterUniversity Hospitals St. John [facility] Center11-14-2023 Miscellaneous Notes* Telephone Encounter - Ginger Neville [...] notify patient. Neyda Ponce documented in this encounterUniversity Hospitals St. John [facility] Center11-03-2023 Miscellaneous Notes* Telephone Encounter - Jade Lopez LPN - 04/28/2023 4:14 PM EDT Scheduled 05/12/23. * Telephone Encounter - Kimberly Ovalle - 04/28/2023 3:59 PM EDT Patient needs this to go to [facility] for a 90 days supply as [...] notify patient. Kimberly Ovalle documented in this encounterUniversity Hospitals St. [facility]07-12-2023 Miscellaneous Notes* Telephone Encounter - Jade Lopez [...] patient. Jade Lopez LPN documented in this encounterUniversity Hospitals St. John [facility] Center07-12-2023 Miscellaneous Notes* Telephone Encounter - Jade Lopez [...] patient. Jade Lopez LPN documented in this encounterUniversity Hospitals St. 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 I will discuss with [facility]. Last option include surgical arthrodesis Patient [...] the next steps are. documented in this encounterUniversity Hospitals St. [facility]05-02-2023 History of Past illness Narrative* Problem Noted [...] of this encounter (statuses as of 05/12/2023) [facility]-02-2023 History of Past illness Narrative* Problem Noted [...] of this encounter (statuses as of 05/30/2023) [facility] History of Past illness Narrative* Problem Noted [...] of this encounter (statuses as of 06/01/2023) [facility] History of Past illness Narrative* Problem Noted [...] of this encounter (statuses as of 08/08/2023) [facility] History of Past illness Narrative* Problem Noted [...] of this encounter (statuses as of 08/15/2023) [facility] History of Present illness Narrative* Mikayla Strange [...] RTO in six months documented in this encounterUniversity Hospitals St. John [facility] Center04-25-2023 Miscellaneous Notes* Telephone Encounter - Neyda Ponce [...] pharmacy. No need to notify patient. Neyda Urbano Pss documented in this encounterUniversity Hospitals St. John [facility] Center04-14-2023 Miscellaneous Notes* Telephone Encounter - Sheba Morgan LPN - 10/07/2022 1:57 PM EDT Patient scheduled appt for 10/[address] results [address] Dr. Muniz. Sheba Morgan LPN * Telephone Encounter - Noe Muniz - 09/23/2022 5:08 PM EDT I attempted to contact patient with results of ct. No call. Left message for patient to contact me Noe Muniz DPM documented in this encounterUniversity Hospitals St. John [facility] Center03-20-2023 History of Present illness Narrative* Reef Lula Leija, RT(R) - 09/12/2022 1:40 PM EDT Radiology [...] 12, 2022 3:12 PM documented in this encounterUniversity Hospitals St. John [facility] Center03-08-2023 Miscellaneous Notes* Telephone Encounter - Milagros Diaz [...] Selam Mccartney - 08/27/2022 9:38 AM EST 08-27 first attempt to contact patient. Left message [...] getting ct scan too. documented in this encounterUniversity Hospitals St. John [facility] Center02-28-2023 Miscellaneous Notes* Telephone Encounter - Adeline Herrera RN - 08/23/2022 9:57 AM EST Referral entered into [employer]. * Telephone Encounter - Shanae Rahman LPN - 08/23/2022 8:49 AM EST Monik with [facility] pre cert called asking if patient had pre certification verified for surgery? Please advise Thank you. Monik# [phone] Shanae Rahman LPN documented in this encounterUniversity Hospitals St. John [facility] Center02-25-2023 History of Present illness Narrative* Noe Muniz [...] (H) 4.3 - 5.6 % Final Comment: [place] Diabetes Association guidelines indicate that patients with [...] consent. Angelic Montgomery LPN documented in this encounterUniversity Hospitals St. John [facility] Center02-24-2023 Miscellaneous Notes* Telephone Encounter - Angelic Montgomery LPN - 08/19/2022 10:44 AM EST Consent sent to [facility] on 08/18/2022. Angelic Montgomery LPN * Telephone Encounter - Dominique Augustine RN - 08/18/2022 2:44 PM EST Amanda, a PAT nurse from [facility], called. She received all of the paperwork for Zackery's upcoming procedure, except for the consent for surgery. Could someone from the office please fax that to her? Dominique Augustine RN documented in this encounterUniversity Hospitals St. John [facility] Center02-23-2023 History of Present illness Narrative* Nadiya Santacruz, [...] 18, 2022 3:55 PM documented in this encounterUniversity Hospitals St. John [facility] Center02-22-2023 Miscellaneous Notes* Telephone Encounter - Angelic Montgomery LPN - 08/17/2022 3:26 PM EST Patient is scheduled for Xray guided injection at [facility] on 08/26/2022. Patient has PAT appointment at 2 pm on 08/18/2022. Patient has appointment in office on 08/18/2022 to sign consent. Angelic Montgomery LPN documented in this encounterUniversity Hospitals St. John [facility] Center02-20-2023 Miscellaneous Notes* Telephone Encounter - Monik Hsu Pss - 08/15/2022 2:02 PM EST Pharmacy verified in [facility] Patient has been identified by name and [...] advise. Monik Hsu Pss documented in this encounterUniversity Hospitals St. John [facility] Center02-13-2023 History of Present illness Narrative* Noe Muniz [...] (H) 4.3 - 5.6 % Final Comment: [place] Diabetes Association guidelines indicate that patients with [...] arrangements to do under sedation. [facility] so will make arrangements. Custom orthotics prescribed. [...] and it does help. documented in this encounterUniversity Hospitals St. John [facility] Center01-09-2023 History of Present illness Narrative* Angelic Montgomery LPN - 07/04/2022 3:[address] Muniz, Zackery was provided with [employer]String aircast, size M, and instructed/educated in itsapplication, [...] Care Angelic Montgomery LPN documented in this encounterUniversity Hospitals St. John [facility] Center01-09-2023 History of Present illness Narrative* Ofe Morales [...] 04, 2022 1:50 PM documented in this encounterUniversity Hospitals St. John [facility] Center01-09-2023 Instructions* Patient Instructions* Noe Muniz - 07/04/2022 1:[address] you in boot for left foot pain Apply heel lift in right foot to help counter balance the boot on left Ok to walk in boot Can remove boot at night when sleeping If you develop any pain in calf, present to ed Noe Muniz DPM documented in this encounterUniversity Hospitals St. John [facility] Center12-29-2022 History of Present illness Narrative* Gwen Blakely [...] any pertinent laboratory studies/radiological imaging/medical records , [id number] patient care, obtaining oral medical history from the patient in this encounter, counseling and educating the patient/family/caregiver, and ordering and/or scheduling of medications/tests/procedures, and completing appropriate medical documentation. Gwen Blakely MD documented in this encounterUniversity Hospitals St. John [facility] Center12-02-2022 Nurse Note* Mela Potts RN - 05/27/2022 9:18 AM EST Patient arrived laying on left side. Patient denies pain at this time. Patient's abdomen appears gonsalo nondistended and soft to palpation. Patient encouraged to pass gas. documented in this encounterUniversity Hospitals St. John [facility] Center12-02-2022 History and physical note * Gwen Blakely [...] eosinophilic esophagitis). She had a colonoscopy in 2013 with IV conscious sedation with 10 mg [...] entered by the nurse and reviewed by md Nursing Notes: Dominique Augustine RN 04/11/2022 3:18 [...] bowel habits (R11.0) Nausea documented in this encounterUniversity Hospitals St. John [facility] Center11-25-2022 Miscellaneous Notes* Telephone Encounter - Yordy Juan ZEPEDA - 05/20/2022 3:36 PM EST Patient phones requesting refills as follows: Requested Prescriptions Pending Prescriptions Disp Refills citalopram (CELEXA) 40 mg tablet 90 tablet 0 Sig: Take 1 tablet by mouth once daily. Please review and advise. Yordy Martinez LPN documented in this encounterUniversity Hospitals St. John [facility] Center10-26-2022 Miscellaneous Notes* Telephone Encounter - Deborah Alberts [...] PCP. Mariah Jones CNP documented in this encounterUniversity Hospitals St. John Medical Center10-21-2022 Miscellaneous Notes* Letter - Mammography Coordinator - 04/15/2022 9:02 AM EDT April 15, 2022 PID: [id number] Zackery Nunez [address] [place] [address] Dear Ms. Nunez, We are pleased to [...] report will be [facility] on [facility] at [facility] as part of your permanent medical record and are available for your continuing care. Thank you for allowing us to help in meeting your health care needs. Sincerely, Dr. Gonzalez Interpreting Radiologist [facility] (Normal over 40) documented in this encounterUniversity Hospitals St. John [facility] Center10-20-2022 Miscellaneous Notes* Telephone Encounter - Adeline Hensley [...] make sure is ok. documented in this encounterUniversity Hospitals St. John Medical Center10-20-2022 History of Present illness Narrative* RT Camila(R) - 04/14/2022 2:10 PM EDT Radiology Service Progress Note PATIENT NAME: Zackery Nunez DATE OF SERVICE: April 14, 2022 TIME: [...] 14, 2022 1:53 PM documented in this encounterUniversity Hospitals St. John Medical Center10-17-2022 History of Present illness Narrative* Gwen Blakely [...] entered by the nurse and reviewed by md Nursing Notes: Dominique Augustine RN 04/11/2022 3:18 [...] patient was offered a surgery/procedure at a [facility] facility. The provider and patient have discussed [...] patient will be scheduled for colonoscopy/EGD at [facility] Medical Decision Making: Problems: Moderate: 2+ stable chronic illnesses Risk: Low: Low risk from testing/treatment Medical Decision Making Level: 3 - Low Gwen Blakely MD documented in this encounterUniversity Hospitals St. John [facility] Center10-17-2022 Instructions* Patient Instructions* Gwen Blakely MD - [...] If you do not have a responsible driver messenger (family member or friend) with you to [...] your exam. 2 05/2019 documented in [address] encounterUniversity Hospitals St. John [facility] Center10-17-2022 Nurse Note* Dominique Augustine RN - 04/11/2022 [...] 2012 Dominique Augustine RN documented in this encounterUniversity Hospitals St. John [facility] Center10-11-2022 Miscellaneous Notes* Telephone Encounter - Mikayla Strange MD - 04/05/2022 2:42 PM EDT Ok. Thank you. * Telephone Encounter - Ashley Marhs RN - 04/05/2022 1:45 PM EDT Contacted [...] for about 10 years. She states her typewriter aligner Dr. Ortiz states it is likely an [...] all of these symptoms reoccur Protocols used: [id number] documented in this encounterUniversity Hospitals St. John [facility] Center09-28-2022 Miscellaneous Notes* Telephone Encounter - Bre Castillo [...] Sugars borderline. Watch diet. documented in this encounterUniversity Hospitals St. John [facility] Center09-08-2022 Miscellaneous Notes* Telephone Encounter - Monik Ponce - 03/03/2022 11:52 AM EDT Pharmacy verified in [facility] Patient has been identified by name and [...] advise. Monik Hsu Pss documented in this encounterUniversity Hospitals St. John [facility] Center08-09-2022 History of Present illness Narrative* Noe Muniz [...] (H) 4.3 - 5.6 % Final Comment: [place] Diabetes Association guidelines indicate that patients with [...] today. Angelic Montgomery LPN documented in this encounterUniversity Hospitals St. John [facility] Center08-08-2022 Instructions* Patient Instructions* Noe Muniz - 01/31/2022 4:03 PM EDT Powerstep Original Full length. Can purchase at [employer] here in [place], [employer] in [place] or [place]. Also can find in [employer] in [facility]. Powersteps can also be purchased online, starting [...] consider injection vs mri documented in this encounterUniversity Hospitals St. John [facility] Center07-22-2022 History of Present illness Narrative* Mikayla Strange [...] Strange Keep next appt documented in this encounterUniversity Hospitals St. John [facility] Center07-07-2022 Instructions* Patient Instructions* Noe Muniz - 12/30/2021 [...] (or decreased sensation in your feet) a food and drug inspector should always cut your toenails. Be Careful [...] Go to your health care provider or food and drug inspector to treat these conditions. Powerstep Original Full length. Can purchase at [employer] here in [place], [employer] in [place] or [place]. Also can find in [employer] in [facility]. Powersteps can also be purchased online, starting [...] everything fits well together documented in this encounterUniversity Hospitals St. John [facility] Center07-07-2022 History of Present illness Narrative* Noe Cristy - 12/30/2021 10:03 AM EDT Consultation requested [...] Objective: Patient presents to clinic [facility] Constitutional: Pt is a well developed 61 [...] Continuous Intervention/Comfort measure: Medication documented in this encounterUniversity Hospitals St. John [facility] Center07-01-2022 Instructions* Patient Instructions* Sayda Carr APRN.EVE - 12/24/2021 2:50 PM EDT 1. Continue to watch for symptoms. 2. Please let us know if it contniues. 3. Schedule echo. 4. Get the stress test as planned. documented in this encounterUniversity Hospitals St. John Medical [facility] History of Present illness Narrative* Sayda Carr APRN.INSPECTOR AND HAND PACKAGER - 12/24/2021 2:15 PM EDT This is [...] stress test as previously ordered (schedule at [facility]). Recently had a CBC, which [...] as needed for worsening/no improvement. Sayda Carr APRN.INSPECTOR AND HAND PACKAGER The patient indicates understanding of these issues and agrees with the plan. * Sharon Rivera Ma - 12/24/2021 2:00 PM EDT Patient scheduled for same day Sharon Rivera Ma documented in this encounterUniversity Hospitals St. [facility]07[facility]22 Miscellaneous Notes* Telephone Encounter - Sharon Rivera Ma - 12/24/2021 1:25 PM EDT Patient scheduled Sharon Miguel Hendricks * Telephone Encounter - Mikayla Strange MD [...] Please call and advise. documented in this encounterUniversity Hospitals St. [facility]06-24-2022 History of Present illness Narrative* Nadiya Santacruz [...] 17, 2021 3:35 PM documented in this encounterUniversity Hospitals St. [facility]06-01-2022 Miscellaneous Notes* Telephone Encounter - Adeline Hensley RN - 11/24/2021 10:49 AM EDT First order was sent to [facility], and Pt reports that she needs it [...] you. Adeline Hensley RN documented in this encounterUniversity Hospitals St. [facility]05-27-2022 Miscellaneous Notes* Telephone Encounter - Sharon Rivera Ma - 11/19/2021 9:02 AM EDT PA completed through [employer] and approved Left vm for patient on confidential vm Sharon Rivera Ma * Telephone Encounter - Lara Brown RN - 11/18/2021 3:02 PM EDT Prior Authorization Documentation Prior authorization requested for the following medication: Medication: Promethazine 25 mg suppository Provider: Dr. Strange Insurance Company Name: [employer] Phone number: Patient ID number: [id number] Pharmacy Name:[facility] Telephone number: [phone] Lara Brown RN documented in this encounterUniversity Hospitals St. [facility]05-25-2022 History of Present illness Narrative* Mikayla Strange [...] for bp and prn. documented in this encounterUniversity Hospitals St. John [facility]05-25-2022 History of Past illness Narrative* Problem Noted Date Resolved Date Elevated BP without diagnosis of hypertension 01/14/2022 Type 2 diabetes mellitus wit hout complication, without long-term current use of insulin 03/12/2021 01/14/2022 Rheumatoid arthritis of [facility] with negative rheumatoid factor 05/11/2019 01/14/2022 Overview: Has seen Dr. Buck. Cannot tolerate meds Hyperglycemia 05/11/2019 03/12/2021 Overview: Had last hba1c which was stable 04/13 Nausea alone 07/30/2014 07/30/2014 Abdominal pain, epigastric 07/30/201407/30 Chronic back pain 09/17/2021 Overview: Dr. Burks-pain management documented as of this encounter (statuses as of 01/14/2022) [facility] History of Past illness Narrative* Problem Noted Date Resolved Date Elevated BP without diagnosis of hypertension 01/14/2022 Type 2 diabetes mellitus wit hout complication, without long-term current use of insulin 03/12/2021 01/14/2022 Rheumatoid arthritis of [facility] with negative rheumatoid factor 05/11/2019 01/14/2022 Overview: Has seen Dr. Buck. Cannot tolerate meds Hyperglycemia 05/11/2019 03/12/2021 Overview: Had last hba1c which was stable 04/13 Nausea alone 07/30/2014 07/30/2014 Abdominal pain, epigastric 07/30/201407/30 Chronic back pain 09/17/2021 Overview: Dr. Burks-pain management documented as of this encounter (statuses as of 02/01/2022) [facility] History of Past illness Narrative* Problem Noted Date Resolved Date Elevated BP without diagnosis of hypertension 01/14/2022 Type 2 diabetes mellitus wit hout complication, without long-term current use of insulin 03/12/2021 01/14/2022 Rheumatoid arthritis of [facility] with negative rheumatoid factor 05/11/2019 01/14/2022 Overview: Has seen Dr. Buck. Cannot tolerate meds Hyperglycemia 05/11/2019 03/12/2021 Overview: Had last hba1c which was stable 04/13 Nausea alone 07/30/2014 07/30/2014 Abdominal pain, epigastric 07/30/201407/30 Chronic back pain 09/17/2021 Overview: Dr. Burks-pain management documented as of this encounter (statuses as of 03/03/2022) [facility] History of Past illness Narrative* Problem Noted Date Resolved Date Elevated BP without diagnosis of hypertension 01/14/2022 Type 2 diabetes mellitus wit hout complication, without long-term current use of insulin 03/12/2021 01/14/2022 Rheumatoid arthritis of [facility] with negative rheumatoid factor 05/11/2019 01/14/2022 Overview: Has seen Dr. Buck. Cannot tolerate meds Hyperglycemia 05/11/2019 03/12/2021 Overview: Had last hba1c which was stable 04/13 Nausea alone 07/30/2014 07/30/2014 Abdominal pain, epigastric 07/30/201407/30 Chronic back pain 09/17/2021 Overview: Dr. Burks-pain management documented as of this encounter (statuses as of 03/24/2022) [facility] History of Past illness Narrative* Problem Noted Date Resolved Date Elevated BP without diagnosis of hypertension 01/14/2022 Type 2 diabetes mellitus wit hout complication, without long-term current use of insulin 03/12/2021 01/14/2022 Rheumatoid arthritis of [facility] sites with negative rheumatoid factor 05/11/2019 01/14/2022 Overview: Has seen Dr. Buck. Cannot tolerate meds Hyperglycemia 05/11/2019 03/12/2021 Overview: Had last hba1c which was stable 04/13 Nausea alone 07/30/2014 07/30/2014 Abdominal pain, epigastric 07/30/201407/30 Chronic back pain 09/17/2021 Overview: Dr. Burks-pain management documented as of this encounter (statuses as of 04/05/2022) [facility] of Past illness Narrative* Problem Noted Date Resolved Date Elevated BP without diagnosis of hypertension 01/14/2022 Type 2 diabetes mellitus wit hout complication, without long-term current use of insulin 03/12/2021 01/14/2022 Rheumatoid arthritis of [facility] with negative rheumatoid factor 05/11/2019 01/14/2022 Overview: Has seen Dr. Buck. Cannot tolerate meds Hyperglycemia 05/11/2019 03/12/2021 Overview: Had last hba1c which was stable 04/13 Nausea alone 07/30/2014 07/30/2014 Abdominal pain, epigastric 07/30/201407/30 Chronic back pain 09/17/2021 Overview: Dr. Burks-pain management documented as of this encounter (statuses as of 04/12/2022) [facility] of Past illness Narrative* Problem Noted Date Resolved Date Elevated BP without diagnosis of hypertension 01/14/2022 Type 2 diabetes mellitus wit hout complication, without long-term current use of insulin 03/12/2021 01/14/2022 Rheumatoid arthritis of [facility] with negative rheumatoid factor 05/11/2019 01/14/2022 Overview: Has seen Dr. Buck. Cannot tolerate meds Hyperglycemia 05/11/2019 03/12/2021 Overview: Had last hba1c which was stable 04/13 Nausea alone 07/30/2014 07/30/2014 Abdominal pain, epigastric 07/30/201407/30 Chronic back pain 09/17/2021 Overview: Dr. Burks-pain management documented as of this encounter (statuses as of 04/14/2022) [facility] of Past illness Narrative* Problem Noted Date Resolved Date Elevated BP without diagnosis of hypertension 01/14/2022 Type 2 diabetes mellitus wit hout complication, without long-term current use of insulin 03/12/2021 01/14/2022 Rheumatoid arthritis of [facility] sites with negative rheumatoid factor 05/11/2019 01/14/2022 Overview: Has seen Dr. Buck. Cannot tolerate meds Hyperglycemia 05/11/2019 03/12/2021 Overview: Had last hba1c which was stable 04/13 Nausea alone 07/30/2014 07/30/2014 Abdominal pain, epigastric 07/30/201407/30 Chronic back pain 09/17/2021 Overview: Dr. Burks-pain management documented as of this encounter (statuses as of 04/15/2022) [facility] of Past illness Narrative* Problem Noted Date Resolved Date Elevated BP without diagnosis of hypertension 01/14/2022 Type 2 diabetes mellitus wit hout complication, without long-term current use of insulin 03/12/2021 01/14/2022 Rheumatoid arthritis of [facility] sites with negative rheumatoid factor 05/11/2019 01/14/2022 Overview: Has seen Dr. Buck. Cannot tolerate meds Hyperglycemia 05/11/2019 03/12/2021 Overview: Had last hba1c which was stable 04/13 Nausea alone 07/30/2014 07/30/2014 Abdominal pain, epigastric 07/30/201407/30 Chronic back pain 09/17/2021 Overview: Dr. Burks-pain management documented as of this encounter (statuses as of 04/19/2022) [facility] of [facility] illness Narrative* Problem Noted Date Resolved Date Elevated BP without diagnosis of hypertension 01/14/2022 Type 2 diabetes mellitus wit hout complication, without long-term current use of insulin 03/12/2021 01/14/2022 Rheumatoid arthritis of [facility] with negative rheumatoid factor 05/11/2019 01/14/2022 Overview: Has seen Dr. Buck. Cannot tolerate meds Hyperglycemia 05/11/2019 03/12/2021 Overview: Had last hba1c which was stable 04/13 Nausea alone 07/30/2014 07/30/2014 Abdominal pain, epigastric 07/30/201407/30 Chronic back pain 09/17/2021 Overview: Dr. Burks-pain management documented as of this encounter (statuses as of 04/20/2022) [facility] of [facility] illness Narrative* Problem Noted Date Resolved Date Elevated BP without diagnosis of hypertension 01/14/2022 Type 2 diabetes mellitus wit hout complication, without long-term current use of insulin 03/12/2021 01/14/2022 Rheumatoid arthritis of [facility] with negative rheumatoid factor 05/11/2019 01/14/2022 Overview: Has seen Dr. Buck. Cannot tolerate meds Hyperglycemia 05/11/2019 03/12/2021 Overview: Had last hba1c which was stable 04/13 Nausea alone 07/30/2014 07/30/2014 Abdominal pain, epigastric 07/30/201407/30 Chronic back pain 09/17/2021 Overview: Dr. Burks-pain management documented as of this encounter (statuses as of 05/20/2022) [facility] of [facility] illness Narrative* Problem Noted Date Resolved Date Elevated BP without diagnosis of hypertension 01/14/2022 Type 2 diabetes mellitus wit hout complication, without long-term current use of insulin 03/12/2021 01/14/2022 Rhe[facility]oid [facility] with negative rheumatoid factor 05/11/2019 01/14/2022 Overview: Has seen Dr. Buck. Cannot tolerate meds Hyperglycemia 05/11/2019 03/12/2021 Overview: Had last hba1c which was stable 04/13 Nausea alone 07/30/2014 07/30/2014 Abdominal pain, epigastric 07/30/201407/30 Chronic back pain 09/17/2021 Overview: Dr. Burks-pain management documented as of this encounter (statuses as of 06/30/2022) [facility] of [facility] illness Narrative* Problem Noted Date Resolved Date Elevated BP without diagnosis of hypertension 01/14/2022 Type 2 diabetes mellitus wit hout complication, without long-term current use of insulin 03/12/2021 01/14/2022 Rheumatoid arthritis of [facility] sites with negative rheumatoid factor 05/11/2019 01/14/2022 Overview: Has seen Dr. Buck. Cannot tolerate meds Hyperglycemia 05/11/2019 03/12/2021 Overview: Had last hba1c which was stable 04/13 Nausea alone 07/30/2014 07/30/2014 Abdominal pain, epigastric 07/30/201407/30 Chronic back pain 09/17/2021 Overview: Dr. Burks-pain management documented as of this encounter (statuses as of 07/04/2022) [facility] of [facility] illness Narrative* Problem Noted Date Resolved Date Elevated BP without diagnosis of hypertension 01/14/2022 Type 2 diabetes mellitus wit hout complication, without long-term current use of insulin 03/12/2021 01/14/2022 Rheumatoid arthritis of [facility] sites with negative rheumatoid factor 05/11/2019 01/14/2022 Overview: Has seen Dr. Buck. Cannot tolerate meds Hyperglycemia 05/11/2019 03/12/2021 Overview: Had last hba1c which was stable 04/13 Nausea alone 07/30/2014 07/30/2014 Abdominal pain, epigastric 07/30/201407/30 Chronic back pain 09/17/2021 Overview: Dr. Burks-pain management documented as of this encounter (statuses as of 07/28/2022) [facility] illness Narrative* Problem Noted Date Resolved Date Elevated BP without diagnosis of hypertension 01/14/2022 Type 2 diabetes mellitus wit hout complication, without long-term current use of insulin 03/12/2021 01/14/2022 Rheumatoid arthritis of [facility] with negative rheumatoid factor 05/11/2019 01/14/2022 Overview: Has seen Dr. Buck. Cannot tolerate meds Hyperglycemia 05/11/2019 03/12/2021 Overview: Had last hba1c which was stable 04/13 Nausea alone 07/30/2014 07/30/2014 Abdominal pain, epigastric 07/30/201407/30 Chronic back pain 09/17/2021 Overview: Dr. Burks-pain management documented as of this encounter (statuses as of 08/08/2022) [facility] illness Narrative* Problem Noted Date Resolved Date Elevated BP without diagnosis of hypertension 01/14/2022 Type 2 diabetes mellitus wit hout complication, without long-term current use of insulin 03/12/2021 01/14/2022 Rheumatoid arthritis of [facility] with negative rheumatoid factor 05/11/2019 01/14/2022 Overview: Has seen Dr. Buck. Cannot tolerate meds Hyperglycemia 05/11/2019 03/12/2021 Overview: Had last hba1c which was stable 04/13 Nausea alone 07/30/2014 07/30/2014 Abdominal pain, epigastric 07/30/201407/30 Chronic back pain 09/17/2021 Overview: Dr. Burks-pain management documented as of this encounter (statuses as of 08/16/2022) [facility] illness Narrative* Problem Noted Date Resolved Date Elevated BP without diagnosis of hypertension 01/14/2022 Type 2 diabetes mellitus wit hout complication, without long-term current use of insulin 03/12/2021 01/14/2022 Rheumatoid arthritis of [facility] with negative rheumatoid factor 05/11/2019 01/14/2022 Overview: Has seen Dr. Buck. Cannot tolerate meds Hyperglycemia 05/11/2019 03/12/2021 Overview: Had last hba1c which was stable 04/13 Nausea alone 07/30/2014 07/30/2014 Abdominal pain, epigastric 07/30/201407/30 Chronic back pain 09/17/2021 Overview: Dr. Burks-pain management documented as of this encounter (statuses as of 08/17/2022) [facility] illness Narrative* Problem Noted Date Resolved Date Elevated BP without diagnosis of hypertension 01/14/2022 Type 2 diabetes mellitus wit hout complication, without long-term current use of insulin 03/12/2021 01/14/2022 Rheumatoid arthritis of [facility] sites with negative rheumatoid factor 05/11/2019 01/14/2022 Overview: Has seen Dr. Buck. Cannot tolerate meds Hyperglycemia 05/11/2019 03/12/2021 Overview: Had last hba1c which was stable 04/13 Nausea alone 07/30/2014 07/30/2014 Abdominal pain, epigastric 07/30/201407/30 Chronic back pain 09/17/2021 Overview: Dr. Burks-pain management documented as of this encounter (statuses as of 08/19/2022) [facility] Narrative* Problem Noted Date Resolved Date Elevated BP without diagnosis of hypertension 01/14/2022 Type 2 diabetes mellitus wit hout complication, without long-term current use of insulin 03/12/2021 01/14/2022 Rheumatoid arthritis of [facility] with negative rheumatoid factor 05/11/2019 01/14/2022 Overview: Has seen Dr. Buck. Cannot tolerate meds Hyperglycemia 05/11/2019 03/12/2021 Overview: Had last hba1c which was stable 04/13 Nausea alone 07/30/2014 07/30/2014 Abdominal pain, epigastric 07/30/201407/30 Chronic back pain 09/17/2021 Overview: Dr. Burks-pain management documented as of this encounter (statuses as of 08/21/2022) [facility] Narrative* Problem Noted Date Resolved Date Elevated BP without diagnosis of hypertension 01/14/2022 Type 2 diabetes mellitus wit hout complication, without long-term current use of insulin 03/12/2021 01/14/2022 Rheumatoid arthritis of [facility] with negative rheumatoid factor 05/11/2019 01/14/2022 Overview: Has seen Dr. Buck. Cannot tolerate meds Hyperglycemia 05/11/2019 03/12/2021 Overview: Had last hba1c which was stable 04/13 Nausea alone 07/30/2014 07/30/2014 Abdominal pain, epigastric 07/30/201407/30 Chronic back pain 09/17/2021 Overview: Dr. Burks-pain management documented as of this encounter (statuses as of 08/25/2022) [facility] Narrative* Problem Noted Date Resolved Date Elevated BP without diagnosis of hypertension 01/14/2022 Type 2 diabetes mellitus wit hout complication, without long-term current use of insulin 03/12/2021 01/14/2022 Rheumatoid arthritis of [facility] with negative rheumatoid factor 05/11/2019 01/14/2022 Overview: Has seen Dr. Buck. Cannot tolerate meds Hyperglycemia 05/11/2019 03/12/2021 Overview: Had last hba1c which was stable 04/13 Nausea alone 07/30/2014 07/30/2014 Abdominal pain, epigastric 07/30/201407/30 Chronic back pain 09/17/2021 Overview: Dr. Burks-pain management documented as of this encounter (statuses as of 09/02/2022) [facility] Narrative* Problem Noted Date Resolved Date Elevated BP without diagnosis of hypertension 01/14/2022 Type 2 diabetes mellitus wit hout complication, without long-term current use of insulin 03/12/2021 01/14/2022 Rheumatoid arthritis of [facility] with negative rheumatoid factor 05/11/2019 01/14/2022 Overview: Has seen Dr. Buck. Cannot tolerate meds Hyperglycemia 05/11/2019 03/12/2021 Overview: Had last hba1c which was stable 04/13 Nausea alone 07/30/2014 07/30/2014 Abdominal pain, epigastric 07/30/201407/30 Chronic back pain 09/17/2021 Overview: Dr. Burks-pain management documented as of this encounter (statuses as of 10/08/2022) [facility] Narrative* Problem Noted Date Resolved Date Elevated BP without diagnosis of hypertension 01/14/2022 Type 2 diabetes mellitus wit hout complication, without long-term current use of insulin 03/12/2021 01/14/2022 Rheumatoid arthritis of [facility] with negative rheumatoid factor 05/11/2019 01/14/2022 Overview: Has seen Dr. Buck. Cannot tolerate meds Hyperglycemia 05/11/2019 03/12/2021 Overview: Had last hba1c which was stable 04/13 Nausea alone 07/30/2014 07/30/2014 Abdominal pain, epigastric 07/30/201407/30 Chronic back pain 09/17/2021 Overview: Dr. Burks-pain management documented as of this encounter (statuses as of 10/08/2022) [facility] Narrative* Problem Noted Date Resolved Date Elevated BP without diagnosis of hypertension 01/14/2022 Type 2 diabetes mellitus wit hout complication, without long-term current use of insulin 03/12/2021 01/14/2022 Rheumatoid arthritis of [facility] sites with negative rheumatoid factor 05/11/2019 01/14/2022 Overview: Has seen Dr. Buck. Cannot tolerate meds Hyperglycemia 05/11/2019 03/12/2021 Overview: Had last hba1c which was stable 04/13 Nausea alone 07/30/2014 07/30/2014 Abdominal pain, epigastric 07/30/201407/30 Chronic back pain 09/17/2021 Overview: Dr. Burks-pain management documented as of this encounter (statuses as of 10/19/2022) [facility] Narrative* Problem Noted Date Resolved Date Elevated BP without diagnosis of hypertension 01/14/2022 Hyperglycemia 05/11/2019 03/12/2021 Overview: Had last hba1c which was stable 04/13 Nausea alone 07/30/2014 07/30/2014 Abdominal pain, epigastric 07/30/201407/30 Chronic back pain 09/17/2021 Overview: Dr. Burks-pain management documented as of this encounter (statuses as of 10/25/2022) [facility] Narrative* Problem Noted Date Resolved Date Elevated BP without diagnosis of hypertension 01/14/2022 Hyperglycemia 05/11/2019 03/12/2021 Overview: Had last hba1c which was stable 04/13 Nausea alone 07/30/2014 07/30/2014 Abdominal pain, epigastric 07/30/201407/30 Chronic back pain 09/17/2021 Overview: Dr. Burks-pain management documented as of this encounter (statuses as of 11/03/2022) [facility] Narrative* Problem Noted Date Diagnosed Date Resolved Date Elevated BP without diagnosis of hypertension 11/18/19 22 01/14/2022 Hyperglycemia 05/11/2019 03/12/2021 Overview: Had last hba1c which was stable 04/13 Nausea alone 07/30/2014 07/30/2014 Abdominal pain, epigastric 07/30/2014 0 07/30/2014 Chronic back pain 09/17/2021 Overview: Dr. Burks-pain management documented as of this encounter (statuses as of 01/05/2023) [facility] Narrative* Problem Noted Date Diagnosed Date Resolved Date Elevated BP without diagnosis of hypertension 11/18/19 22 01/14/2022 Hyperglycemia 05/11/2019 03/12/2021 Overview: Had last hba1c which was stable 04/13 Nausea alone 07/30/2014 07/30/2014 Abdominal pain, epigastric 07/30/2014 0 07/30/2014 Chronic back pain 09/17/2021 Overview: Dr. Burks-pain management documented as of this encounter (statuses as of 01/05/2023) [facility] Narrative* Problem Noted Date Diagnosed Date Resolved Date Elevated BP without diagnosis of hypertension 11/18/19 22 01/14/2022 Hyperglycemia 05/11/2019 03/12/2021 Overview: Had last hba1c which was stable 04/13 Nausea alone 07/30/2014 07/30/2014 Abdominal pain, epigastric 07/30/2014 0 07/30/2014 Chronic back pain 09/17/2021 Overview: Dr. Burks-pain management documented as of this encounter (statuses as of 04/29/2023) [facility] Narrative* Problem Noted Date Diagnosed Date Resolved Date Elevated BP without diagnosis of hypertension 11/18/19 22 01/14/2022 Hyperglycemia 05/11/2019 03/12/2021 Overview: Had last hba1c which was stable 04/13 Nausea alone 07/30/2014 07/30/2014 Abdominal pain, epigastric 07/30/2014 0 07/30/2014 Chronic back pain 09/17/2021 Overview: Dr. Burks-pain management documented as of this encounter (statuses as of 04/30/2023) [facility] Narrative* Problem Noted Date Diagnosed Date Resolved Date Elevated BP without diagnosis of hypertension 11/18/19 22 01/14/2022 Hyperglycemia 05/11/2019 03/12/2021 Overview: Had last hba1c which was stable 04/13 Nausea alone 07/30/2014 07/30/2014 Abdominal pain, epigastric 07/30/2014 0 07/30/2014 Chronic back pain 09/17/2021 Overview: Dr. Burks-pain management documented as of this encounter (statuses as of 04/30/2023) [facility] Narrative* Problem Noted Date Diagnosed Date Resolved Date Elevated BP without diagnosis of hypertension 11/18/19 22 01/14/2022 Hyperglycemia 05/11/2019 03/12/2021 Overview: Had last hba1c which was stable 04/13 Nausea alone 07/30/2014 07/30/2014 Abdominal pain, epigastric 07/30/2014 0 07/30/2014 Chronic back pain 09/17/2021 Overview: Dr. Burks-pain management documented as of this encounter (statuses as of 05/09/2023) [facility] Miscellaneous Notes* Telephone Encounter - Sharon Rivera [...] is going to pass out. Protocols used: [id number] documented in this encounterUniversity Hospitals St. [facility]04[facility]2022 Miscellaneous Notes* Telephone Encounter - Makenna Crowder RN - 09/29/2021 8:23 AM EDT Opened in Error documented in this encounter[facility] History of Present illness Narrative* Mikayla Strange [...] prn. Medical Decision Making documented in this encounter[facility] History of Past illness Narrative* Problem Noted Date Resolved Date Hyperglycemia 05/11/2019 03/12/2021 Overview: Had last hba1c which was stable 04/13 Nausea alone 07/30/2014 07/30/2014 Abdominal pain, epigastric 07/30/201407/30 Chronic back pain 09/17/2021 Overview: Dr. Burks-pain management documented as of this encounter (statuses as of 09/17/2021) [facility] History of Past illness Narrative* Problem Noted Date Resolved Date Hyperglycemia 05/11/2019 03/12/2021 Overview: Had last hba1c which was stable 04/13 Nausea alone 07/30/2014 07/30/2014 Abdominal pain, epigastric 07/30/201407/30 Chronic back pain 09/17/2021 Overview: Dr. Burks-pain management documented as of this encounter (statuses as of 09/29/2021) [facility] History of Past illness Narrative* Problem Noted Date Resolved Date Hyperglycemia 05/11/2019 03/12/2021 Overview: Had last hba1c which was stable 04/13 Nausea alone 07/30/2014 07/30/2014 Abdominal pain, epigastric 07/30/201407/30 Chronic back pain 09/17/2021 Overview: Dr. Burks-pain management documented as of this encounter (statuses as of 11/17/2021) [facility] of Past illness Narrative* Problem Noted Date Resolved Date Hyperglycemia 05/11/2019 03/12/2021 Overview: Had last hba1c which was stable 04/13 Nausea alone 07/30/2014 07/30/2014 Abdominal pain, epigastric 07/30/201407/30 Chronic back pain 09/17/2021 Overview: Dr. Burks-pain management documented as of this encounter (statuses as of 11/19/2021) [facility] of Past illness Narrative* Problem Noted Date Resolved Date Hyperglycemia 05/11/2019 03/12/2021 Overview: Had last hba1c which was stable 04/13 Nausea alone 07/30/2014 07/30/2014 Abdominal pain, epigastric 07/30/201407/30 Chronic back pain 09/17/2021 Overview: Dr. Burks-pain management documented as of this encounter (statuses as of 11/24/2021) [facility] of Past illness Narrative* Problem Noted Date Resolved Date Hyperglycemia 05/11/2019 03/12/2021 Overview: Had last hba1c which was stable 04/13 Nausea alone 07/30/2014 07/30/2014 Abdominal pain, epigastric 07/30/201407/30 Chronic back pain 09/17/2021 Overview: Dr. Burks-pain management documented as of this encounter (statuses as of 12/23/2021) [facility] of [facility] illness Narrative* Problem Noted Date Resolved Date Hyperglycemia 05/11/2019 03/12/2021 Overview: Had last hba1c which was stable 04/13 Nausea alone 07/30/2014 07/30/2014 Abdominal pain, epigastric 07/30/201407/30 Chronic back pain 09/17/2021 Overview: Dr. Burks-pain management documented as of this encounter (statuses as of 12/24/2021) [facility] of [facility] illness Narrative* Problem Noted Date Resolved Date Hyperglycemia 05/11/2019 03/12/2021 Overview: Had last hba1c which was stable 04/13 Nausea alone 07/30/2014 07/30/2014 Abdominal pain, epigastric 07/30/201407/30 Chronic back pain 09/17/2021 Overview: Dr. Burks-pain management documented as of this encounter (statuses as of 12/24/2021) [facility] of Past illness Narrative* Problem Noted Date Resolved Date Hyperglycemia 05/11/2019 03/12/2021 Overview: Had last hba1c which was stable 04/13 Nausea alone 07/30/2014 07/30/2014 Abdominal pain, epigastric 07/30/201407/30 Chronic back pain 09/17/2021 Overview: Dr. Burks-pain management documented as of this encounter (statuses as of 12/30/2021) [facility] Author Dr. Muniz [facility] August 26, 2022 1:45pm Note Date/Time August 26, 2022 1:45 pm [facility] Medical Records Department [address] [place] [address] Instructions for Home/Discharge Instructions 08/26/22 1344 MR#: [id number] Acct: [id number] Name: ZACKERY NUNEZ CHARLEY Rep #:[id number] : 1960 62 From: [...] CC: Dr. Mikayla Strange MD ~ Signed [facility] Work Phone: Evaluation note* Diagnosis [...] without status migrainosus documented in this encounter [facility] CenterEvaluation noteNo assessment information availableWSelect Medical [facility] Work Phone: Evaluation note* Diagnosis Nausea- Primary Nausea alone Type 2 diabetes mellitus without complication, without long-term current use of insulin ([facility]) Panic disorder Panic disorder without agoraphobia Migraine without aura, intractable, without status migrainosus Other hyperlipidemia Elevated BP without diagnosis of hypertension [facility] Diagnosis Migraine without aura, intractable, without status migrainosus Nausea Nausea alone [facility] Diagnosis Discoloration of skin of finger- Primary Dyschromia, unspecified SOB (shortness of breath) Shortness of breath [facility] Diagnosis Pes planus of both feet- Primary Foot pain, left Pain in limb Closed fracture of left foot with nonunion, subsequent encounter Hammer toes of both feet Acquired hallux valgus, unspecified laterality Other diabetic neurological complication associated with type 2 diabetes mellitus (HCC) Hyperkeratosis Acquired keratoderma [facility] Diagnosis Primary hypertension Unspecified essential hypertension documented [facility] this encounter [facility]* Diagnosis Posterior tibial tendon dysfunction- Primary Other disorders of synovium, tendon, and bursa Pes planus of both feet 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 Unspecified arthropathy, ankle and foot documented in this encounter [facility]* Diagnosis Hypertension, unspecified type Irritable bowel syndrome with constipation Irritable bowel syndrome documented in this encounter [facility]* Diagnosis Renal insufficiency- Primary Unspecified disorder of kidney and ureter Leukocytosis, unspecified type [facility]* Diagnosis Change in bowel habits Other symptoms involving digestive system Nausea Nausea alone [facility]* Diagnosis Leukocytosis, unspecified type- Primary documented in this encounter [facility]* Diagnosis Screening breast examination Breast screening, unspecified documented in this encounter [facility]* Diagnosis Change in bowel habits- Primary Other symptoms involving digestive system documented in this encounter [facility]* Diagnosis Pes planus of both feet- Primary 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 Unspecified arthropathy, ankle and foot Posterior tibial tendon dysfunction Other disorders of synovium, tendon, and bursa documented in this encounter [facility]* Diagnosis Arthritis of foot- Primary Unspecified arthropathy, ankle and foot Posterior tibial tendon dysfunction Other disorders of synovium, tendon, and bursa Other diabetic neurological complication associated with type 2 diabetes mellitus (HCC) documented in this encounter [facility]* Diagnosis Irritable bowel syndrome with constipation Irritable bowel syndrome documented in this encounter [facility] note* Diagnosis Arthritis of foot- Primary Unspecified arthropathy, ankle and foot 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, subsequent encounter [facility]* Diagnosis Onset Date Resolution Status Arthritis of foot acute [facility] Work Phone: Evaluation note* Diagnosis Left foot pain- Primary Pain in limb documented in this encounter [facility]* Diagnosis Type 2 diabetes mellitus without complication, without long-term current use of insulin ([facility]) documented in this encounter [facility] note* Diagnosis Primary hypertension- Primary Unspecified essential [...] whether stage 3a or 3b CKD (HCC) Anemia, unspecified type documented in this encounter [facility]* Diagnosis Arthritis of foot- Primary Unspecified arthropathy, ankle and foot 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, subsequent encounter Left foot pain Pain in limb documented in this encounter [facility]* Diagnosis Migraine without aura, intractable, without status migrainosus Nausea Nausea alone Irritable bowel syndrome with constipation Irritable bowel syndrome documented in this encounter [facility]* Diagnosis Panic disorder Panic disorder without agoraphobia Migraine without aura, intractable, without status migrainosus Nausea Nausea alone Irritable bowel syndrome with constipation Irritable bowel syndrome documented in this encounter [facility]* Diagnosis Hypertension, unspecified type documented in this encounter [facility]* Diagnosis Arthritis of foot Unspecified arthropathy, ankle and foot 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, subsequent encounter documented in this encounter [facility]* Diagnosis Left foot pain Pain in limb documented in this encounter [facility]* Diagnosis Diarrhea, unspecified type- Primary Change in bowel habits Other symptoms involving digestive system documented in this encounter [facility]* Diagnosis Irritable bowel syndrome with constipation Irritable bowel syndrome [facility]* Diagnosis Primary hypertension- Primary Unspecified essential hypertension Other hyperlipidemia Fibromyalgia Mylagia and myositis, unspecified Type 2 diabetes mellitus without complication, without long-term current use of insulin (HCC) Stage 3 chronic kidney disease, unspecified whether stage 3a or 3b CKD (HCC) Panic disorder Panic disorder without agoraphobia Rheumatoid arthritis, involving unspecified site, unspecified whether rheumatoid factor present ([facility]) DDD (degenerative disc disease), lumbar Degeneration of lumbar or lumbosacral intervertebral disc Obesity, Class II, BMI 35-39.9 Obesity, unspecified Encounter for screening mammogram for malignant neoplasm of breast Other screening mammogram documented in this encounter [facility]* Diagnosis Encounter for screening mammogram for malignant neoplasm of breast Other screening mammogram documented in this encounter [facility]* Diagnosis Irritable bowel syndrome with constipation Irritable bowel syndrome documented in this encounter [facility]* Diagnosis Panic disorder Panic disorder without agoraphobia Hypertension, unspecified type Migraine without aura, intractable, without status migrainosus Nausea Nausea alone documented in this encounter [facility]* Diagnosis Type 2 diabetes mellitus without complication, without long-term current use of insulin ([facility]) [facility] encounter [facility]* Diagnosis Fibromyalgia- Primary Mylagia and myositis, [...] unspecified site, unspecified whether rheumatoid factor present ([facility]) DDD (degenerative disc disease), lumbar Degeneration of lumbar or lumbosacral intervertebral disc Weight loss Loss of weight documented in this encounter [facility]* Diagnosis Malnutrition of mild degree ([facility])- Primary Malnutrition of mild degree Weight loss Loss of weight Type 2 diabetes mellitus without complication, without long-term current use of insulin ([facility]) documented in this encounter [facility]* Diagnosis Anemia, unspecified type- Primary documented in this encounter [facility]* Diagnosis Panic disorder Panic disorder without agoraphobia documented in this encounter [facility]* Diagnosis Urinary tract infection with hematuria, site unspecified- Primary Encounter for screening mammogram for malignant neoplasm of breast Other screening mammogram documented [facility] this encounter [facility]* Diagnosis Acute cystitis with hematuria- Primary Acute cystitis documented in this encounter [facility]* Diagnosis Dysuria- Primary Microscopic hematuria documented in this encounter 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* Diagnosis Chest pain, atypical Other chest pain Foot pain, left Pain in limb documented [facility] this [facility]* Diagnosis Atrophic vaginitis- Primary Postmenopausal atrophic vaginitis Dysuria Microscopic hematuria documented in this encounter [facility]* Diagnosis Procedure, test, or exam not indicated- Primary Procedure not carried out for other reasons documented in this encounter [facility] note* Diagnosis 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, subsequent encounter- Primary 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, subsequent encounter documented in this encounter [facility] note* Diagnosis 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, subsequent encounter- Primary documented in this encounter [facility] note* Diagnosis Irritable bowel syndrome with constipation Irritable bowel syndrome documented in this encounter [facility] note* Diagnosis Irritable bowel syndrome with constipation Irritable bowel syndrome [facility]* Diagnosis Dysuria- Primary Chronic insomnia Insomnia, unspecified Fibromyalgia Mylagia and myositis, unspecified Other hyperlipidemia Primary hypertension Unspecified essential hypertension Rheumatoid arthritis, involving unspecified site, unspecified whether rheumatoid factor present (HCC) Stage 3 chronic kidney disease, unspecified whether stage 3a or 3b CKD (HCC) Obesity, Class I, BMI 30-34.9 Obesity, unspecified Type 2 diabetes mellitus without complication, without long-term current use of insulin (HCC) Other diabetic neurological complication associated with type 2 diabetes mellitus ([facility]) documented in this encounter [facility] note* Diagnosis Fracture Closed fracture of unspecified bone Screening for osteoporosis Special screening for osteoporosis documented in this encounter [facility] note* Diagnosis 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, subsequent encounter- Primary [facility]* Diagnosis Fracture Risk Assessment Score (FRAX) indicating greater than 20% risk for major osteoporosis-related fracture- Primary documented in this encounter [facility] note* Diagnosis 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, subsequent encounter- Primary documented in this encounter [facility] note* Diagnosis Fibromyalgia- Primary Mylagia and myositis, unspecified Medicare annual wellness visit, initial Routine general medical examination at a health care facility Atrophic vaginitis Postmenopausal atrophic vaginitis Other diabetic neurological complication associated with type 2 diabetes mellitus (HCC) Primary hypertension Unspecified essential hypertension Other hyperlipidemia Rheumatoid arthritis, involving unspecified site, unspecified whether rheumatoid factor present (HCC) Type 2 diabetes mellitus without complication, without long-term current use of insulin (HCC) Stage 3 chronic kidney disease, unspecified whether stage 3a or 3b CKD (HCC) Obesity, Class I, BMI 30-34.9 Obesity, unspecified Morbid (severe) obesity due to excess calories (HCC) Mild cognitive disorder Unspecified persistent mental disorders due to conditions classified elsewhere Glaucoma of both eyes, unspecified glaucoma type Chronic insomnia Insomnia, unspecified Anxiety Anxiety state, unspecified Depression, major, single episode, moderate (HCC) Major depressive disorder, single episode, moderate Encounter for screening mammogram for malignant neoplasm of breast Other screening mammogram Anemia, unspecified type Diarrhea, unspecified type Nausea Nausea alone Dysuria documented [facility] this encounter [facility]* Diagnosis Encounter for screening mammogram for malignant neoplasm of breast Other screening mammogram documented in this encounter [facility] Center[facility] and [facility] note Author Dr. Muniz [facility] August 26, 2022 1:43pm Note Date/Time August 26, 2022 12:5 7pm [facility] Medical Records Department [address] [place] [id number] History & Physical Exam 08/26/22 1254 MR#: [id number] Acct: [id number] Name: ZACKERY NUNEZ CHARLEY Rep #:[id number] : 1960 62 From: Noe paul DPM PCP: Dr. Mikayla Strange MD Status:REG S [place] Location: [place] [address] HPI - General General Date of Admission: [...] foot. she denies any open wounds currently [facility] Medical History (Updated 08/26/22 @ 13:[address] Noe Muniz DPM) Back pain Bulging discs Chest pain Diabetes [...] of navicular cun joint. xrays reviewed from [facility] demonstrate midfoot arthirtis most severe at [...] Signature (if applicable): cc: ABBIE Muniz; Dr. Mikayla Strange MD ~* Signed [facility] Work Phone: Hospital Discharge instructions Additional Instructions Implant Used?: [facility] Work Phone: Reason for referral (narrative)* Outpatient Procedure (Routine) - Authorized Specialty Diagnoses / Procedures Referred By Stanleyac t Referred To [facility] Diagnoses Discoloration of skin of finger SOB (shortness of breath) Procedures ECHO ECHO TTHRC R-T 2D W/WOM-MODE COMPL SPEC&COLR D Sayda Carr APRN.CNP [address] [place] [address] [facility] [place] [id number] Referral ID Status Reason Start Date Expiration Date Visits Requested Visits Authorized [id number] Authorized Auto-Generat ed Referral 12/24/2021 12/24/2022 1 1 [facility] for referral (narrative)* Outpatient Procedure (Routine) - Authorized Specialty Diagnoses / Procedures [facility] Diagnoses Nausea Procedures EGD DIAGNOSTIC ESOPHAGOGASTRODUODENOSC OPY TRANSORAL DIAGNOSTIC Gwen Blakely MD [address] [place] [address] [facility] [address] [address] Referral ID Status Reason Start Date Expiration Date Visits Requested Visits Authorized [id number] Authorized Auto-Generat ed Referral 2 04/11/2023 1 1 * Outpatient Procedure (Routine) - Authorized Specialty Diagnoses / Procedures [facility] Diagnoses Change in bowel habits Procedures COLONOSCOPY DIAGNOSTIC COLONOSCOPY FLX DX W/COLLJ SPEC WHEN PFRMD Gwen Blakely MD [address] [place] [address] [facility] [address] [address] Referral ID Status Reason Start Date Expiration Date Visits Requested Visits Authorized [id number] Authorized Auto-Generat ed Referral 04/11/2023 1 1 T [facility] for referral (narrative)* Diagnostic Procedure Only (Routine) - Closed Specialty Diagnoses / Procedures Referred By Contac t Referred To Contact [facility] Diagnoses Screening breast examination Procedures PATSY SCREENING SCREENING MAMMOGRAPHY BI 2-VIEW BREAST INC CAD Mikayla Strange MD [address] [place] [address] [facility] [address] [place] [address] Referral ID Status Reason Start Date Expiration Date V isits Requested Visits Authorized [id number] Closed Auto-Generate d Referral 03/22/2022 04/21/2023 1 1 [facility] for referral (narrative)* Diagnostic Procedure Only (Routine) - Closed Specialty Diagnoses / Procedures Referred By Contac t Referred To Contact XR IMAGING Diagnoses Pes planus of both feet 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 Posterior tibial tendon dysfunction Procedures XR FOOT GENERAL 3V AP/LAT/OBL LEFT RADEX FOOT COMPLETE MINIMUM [address] [place] [place] [address] Xr Imaging Referral ID Status Reason Start Date Expiration Date V isits Requested Visits Authorized [id number] Closed Auto-Generate d Referral 07/04/2022 08/03/2023 1 1 [facility] for referral (narrative)* Diagnostic Procedure Only (Routine) - Closed Specialty Diagnoses / Procedures Referred By Contac t Referred To Contact XR IMAGING Diagnoses 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, subsequent encounter Procedures XR FOOT GENERAL 3V AP/LAT/OBL LEFT RADEX FOOT COMPLETE MINIMUM 3 VIEWS Noe Muniz[address] [place] [address] Xr Imaging Referral ID Status Reason Start Date Expiration Date V isits Requested Visits Authorized [id number] Closed Auto-Generate d Referral 08/18/2022 09/17/2023 1 1 [facility] for referral (narrative)* Diagnostic Procedure Only (Routine) - Closed Specialty Diagnoses / Procedures Referred By Jese t Referred To Contact XR IMAGING Diagnoses 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, subsequent encounter Procedures XR FOOT GENERAL 3V AP/LAT/OBL LEFT RADEX FOOT COMPLETE MINIMUM 3 VIEWS Noe Muniz [address] [facility] [address] [place] [address] Referral ID Status Reason Start Date Expiration Date V isits Requested Visits Authorized [id number] Closed Auto-Generate d Referral 08/18/2022 09/17/2023 1 1 [facility] for referral (narrative)* Outpatient Procedure (Routine) - Closed Specialty Diagnoses / Procedures Referred By Jese graham Referred To Contact [facility] Diagnoses Change in bowel habits Procedures COLONOSCOPY DIAGNOSTIC COLONOSCOPY FLX DX W/COLLJ SPEC WHEN Gwen Umana MD [address] [place] [address] [facility] [address] [place] [address] Referral ID Status Reason Start Date Expiration Date V isits Requested Visits Authorized [id number] Closed Auto-Generate d Referral 04/11/2022 04/11/2023 1 1 [facility] for referral (narrative)* Diagnostic Procedure Only (Routine) - Pending Review Specialty Diagnoses / Procedures Referred By Jese graham Referred To Contact [facility] Diagnoses Encounter for screening mammogram for malignant neoplasm of breast Procedures PATSY SCREENING SCREENING MAMMOGRAPHY BI 2-VIEW BREAST INC CAD Mikayla Strange MD [address] [place] [address] [facility] [address] [place] [address] Referral ID Status Reason Start Date Expiration Date Visits Requested Visits Authorized [id number] Pending Review Auto-Generat ed Referral 06/10/2024 1 1 [facility] for referral (narrative)* Diagnostic Procedure Only (Routine) - New Request Specialty Diagnoses / Procedures Referred By Contac t Referred To Contact [facility] Diagnoses Encounter for screening mammogram for malignant neoplasm of breast Procedures PATSY SCREENING SCREENING MAMMOGRAPHY BI 2-VIEW BREAST INC CAD Hunter, Mikayla Valencia MD [address] [place] [address] [facility] [address] [place] [address] Referral ID Status Reason Start Date Expiration Date Visits Requested Visits Authorized [id number] New Request Auto-Generat ed Referral 02/20/2024 03/21/2025 1 1 [facility] for referral (narrative)* Diagnostic Procedure Only [...] 3 VIEWS Noe Muniz [address] [place] [address] [place] [address] Referral ID Status Reason Start Date Expiration Date V isits Requested Visits Authorized [id number] Closed Auto-Generate d Referral 07/04/2022 08/03/2023 1 1 [facility] for referral (narrative)* Diagnostic Procedure Only (Routine) - Closed Specialty Diagnoses / Procedures Referred By Contac t Referred To Contact [facility] Diagnoses Foot pain, left Procedures XR FOOT GENERAL 3V AP/LAT/OBL LEFT RADEX FOOT COMPLETE MINIMUM 3 VIEWS Mikayla Strange MD [address] [place] [address] [place] [address] Referral ID Status Reason Start Date Expiration Date V isits Requested Visits Authorized [id number] Closed Auto-Generate d Referral 12/17/2021 01/16/2023 1 1 [facility] for referral (narrative)No reason for referral information availableWSelect Medical [facility] Work Phone: [facility] for visit Narrative* Diagnostic Procedure Only (Routine) - Closed Specialty Diagnoses / Procedures Referred By Contac t Referred To Contact [facility] Diagnoses Screening breast examination Procedures PATSY SCREENING SCREENING MAMMOGRAPHY BI 2-VIEW BREAST INC CAD Mikayla Strange MD [address] [place] [address] [facility] [address] [place] [address] Referral ID Status Reason Start Date Expiration Date V isits Requested Visits Authorized [id number] Closed Auto-Generate d Referral 03/22/2022 04/21/2023 1 1 [facility] for visit Narrative* Diagnostic Procedure Only (Routine) - Closed Specialty Diagnoses / Procedures Referred By Contac t Referred To Contact [facility] Diagnoses 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, subsequent encounter Procedures XR FOOT GENERAL 3V AP/LAT/OBL LEFT RADEX FOOT COMPLETE MINIMUM 3 VIEWS Noe Muniz [address] [place] [address] [place] [address] Referral ID Status Reason Start Date Expiration Date V isits Requested Visits Authorized [id number] Closed Auto-Generate d Referral 08/18/2022 09/17/2023 1 1 [facility] for visit Narrative* Outpatient Procedure (Routine) - Closed Specialty Diagnoses / Procedures Referred By Contac t Referred To Contact [facility] Diagnoses Change in bowel habits Procedures COLONOSCOPY DIAGNOSTIC COLONOSCOPY FLX DX W/COLLJ SPEC WHEN PFRMGwen Ruffin MD [address] [place] [address] [facility] [address] [place] [address] Referral ID Status Reason Start Date Expiration Date V isits Requested Visits Authorized [id number] Closed Auto-Generate d Referral 04/11/2022 04/11/2023 1 1 [facility] for visit Narrative* Diagnostic Procedure Only (Routine) - Closed Specialty Diagnoses / Procedures Referred By Contac t Referred To Contact [facility] Diagnoses Encounter for screening mammogram for malignant neoplasm of breast Procedures PATSY SCREENING SCREENING MAMMOGRAPHY BI 2-VIEW BREAST INC CAD Mikayla Strange MD [address] [place] [address] [facility] [address] [place] [address] Referral ID Status Reason Start Date Expiration Date V isits Requested Visits Authorized [id number] Closed Auto-Generate d Referral 05/12/2023 06/10/2024 1 1 [facility] for visit Narrative* Diagnostic Procedure Only [...] MINIMUM 3 VIEWS Noe Muniz [address] [facility] [place] [address] [place] [address] Referral ID Status Reason Start Date Expiration Date V isits Requested Visits Authorized [id number] Closed Auto-Generate d Referral 07/04/2022 08/03/2023 1 1 [facility] for visit Narrative* Diagnostic Procedure Only (Routine) - Closed Specialty Diagnoses / Procedures Referred By Contac t Referred To Contact [facility] Diagnoses Foot pain, left Procedures XR FOOT GENERAL 3V AP/LAT/OBL LEFT RADEX FOOT COMPLETE MINIMUM 3 VIEWS Mikayla Strange MD [address] [place] [address] [place] [address] Referral ID Status Reason Start Date Expiration Date V isits Requested Visits Authorized [id number] Closed Auto-Generate d Referral 12/17/2021 01/16/2023 1 1 [facility] for visit Narrative* Diagnostic Procedure Only (Routine) - Closed Specialty Diagnoses / Procedures Referred By Contac t Referred To Contact [facility] Diagnoses Fracture Screening for osteoporosis Procedures DXA-AXIAL SKELETON DXA BONE DENSITY STUDY / SITES AXIAL SKEL Mikayla Strange MD [address] [place] [address] Phone: tel: fax: [place] [address] Referral ID Status Reason Start Date Expiration Date V isits Requested Visits Authorized [id number] Closed Auto-Generate d Referral 09/23/2024 10/23/2025 1 1 [facility] for visit Narrative* Diagnostic Procedure Only (Routine) - Closed Specialty Diagnoses / Procedures Referred By Jese t Referred To Contact [facility] Diagnoses Encounter for screening mammogram for malignant neoplasm of breast Procedures PATSY SCREENING W ISIDRO SCREENING DIGITAL BREAST TOMOSYNTHESIS BI SCREENING MAMMOGRAPHY BI 2-VIEW BREAST INC CAD Mikayla Strange MD [address] [place] [address] Phone: tel: fax: [facility] [address] [place] [address] Referral ID Status Reason Start Date Expiration Date V isits Requested Visits Authorized [id number] Closed Auto-Generate d Referral 11/29/2024 12/29/2025 [address] [facility] Chief Complaint and Reason for Visit Chief [...] Rheumatoid arthritis November 11, 2024 1:13 pm Reason for Visit Admit Date Left knee DJD November 11, 2024 1:13p m Chronic pain syndrome November 11, 2024 1:1 3pm Rheumatoid arthritis November 11, 2024 1:13 pm Lumbar stenosis with neurogenic claudica tion November 21, 2024 1:16pm Spondylolisthesis at L4-L5 level October 1:16pm Family History Relationship Condition Age at Onset Recorded Date/T garo mother Myocardial infarction Unknown father Myocardial infarction Unknown Malignant neoplasm Unknown sister History of Sjogren's disease Unknown Advance Directives Advance Directive Response Recorded Date/ Time Advance Directives No December 17 11:08pm Living Will No February 11 5:11am Power of Health Care Coordinator No February 11 2 019 5:11am Advance Directive Response Recorded Date/ Time Advance Directives No December 17 10:08pm Living Will No February 11 9 4:11am Power of Health Care Coordinator No February 11 2 019 4:11am Advance Directive Response Recorded Date/ Time Advance Directives No December 17 10:08pm Living Will No August 18 2 023 2:02pm Power of Health Care Coordinator No August 18, 2022 2:02pm Advance Directive Response Recorded Date/ Time Advance Directives No December 17 11:08pm Living Will No August 18 023 3:02pm Power of Health Care Coordinator No August 18, 2022 3:02pm Date Activated Date Inactivated Comments 05/02/2024 6:00 PM 05/09/2024 8:13 PM Question Answer Comments Full Code Order Discussed With: Patient Date Activated Date Inactivated Comments 05/02/2024 6:00 PM 05/09/2024 8:13 PM Question Answer Comments Full Code Order Discussed With: Patient Advance Directive Response Recorded Date/ Time Living Will No June 24 024 2:24pm Do you have a Healthcare Power of Health Care Coordinator? No June 24, 2024 2:24pm Advance Directives [...] W/O CONTRAST MATERIAL TestNoe robert [address] [place] [address] Ct [facility] Referral ID Status Reason Start Date Expiration Date Visits Requested Visits Authorized [id number] Authorized Auto-Generat ed Referral 08/29/2022 10/13/2022 1 1 Specialty Diagnoses / Procedures Referred By Contac t Referred To Contact CT [facility] Diagnoses Left foot pain Procedures CT FOOT WO IVCON LT CT LOWER EXTREMITY W/O CONTRAST MATERIAL Noe Muniz [address] [facility] [place] [address] [place] [address] Referral ID Status Reason Start Date Expiration Date V isits Requested Visits Authorized [id number] Closed Auto-Generate d Referral 08/29/2022 10/13/2022 1 1 Specialty Diagnoses / Procedures Referred By Contac t Referred To Contact Urology Diagnoses Dysuria Microscopic hematuria Procedures CONSULT TO UROLOGY OFFICE/OUTPATIENT [facility] 60 MINUTES Mikayla Strange MD [address] [place] [address] Referral ID Status Reason Start Date Expiration Date Visits Requested Visits Authorized [id number] Authorized PCP Requested Referral 03/09/2024 03/09/2025 1 1 Specialty Diagnoses / Procedures Referred By Contac t Referred To Contact [facility] Diagnoses 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, subsequent encounter Procedures CONSULT TO PHYSICAL THERAPY PHYSICAL THERAPY EVALUATION HIGH COMPLEX 45 MINS Sydni Waggoner MD [address] [place] [address] [facility] [address] [address] Referral ID Status Reason Start Date Expiration Date Visits Requested Visits Authorized [id number] Pending Review Auto-Generat ed Referral 07/22/2024 07/22/2025 1 1 Specialty Diagnoses / Procedures Referred By Contac t Referred To Contact [facility] Diagnoses 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 Center[facility] the event this information is protected by the Federal Confidentiality of Alcohol and Drug Abuse Patient Records regulations: The Federal rules restrict any use of the information to criminally investigate or prosecute any alcohol or drug abuse patient.[facility] CenterIn the event this information is protected by the Federal Confidentiality of Alcohol and Drug Abuse Patient Records regulations: The Federal rules restrict any use of the information to criminally investigate or prosecute any alcohol or drug abuse patient.[facility] CenterIn the event this information is protected by the Federal Confidentiality of Alcohol and Drug Abuse Patient Records regulations: The Federal rules restrict any use of the information to criminally investigate or prosecute any alcohol or drug abuse patient.[facility] CenterIn the event this information is protected by the Federal Confidentiality of Alcohol and Drug Abuse Patient Records regulations: The Federal rules restrict any use of the information to criminally investigate or prosecute any alcohol or drug abuse patient.[facility] CenterIn the event this information is protected by the Federal Confidentiality of Alcohol and Drug Abuse Patient Records regulations: The Federal rules restrict any use of the information to criminally investigate or prosecute any alcohol or drug abuse patient.[facility] CenterIn the event this information is protected by the Federal Confidentiality of Alcohol and Drug Abuse Patient Records regulations: The Federal rules restrict any use of the information to criminally investigate or prosecute any alcohol or drug abuse patient.[facility] CenterIn the event this information is protected by the Federal Confidentiality of Alcohol and Drug Abuse Patient Records regulations: The Federal rules restrict any use of the information to criminally investigate or prosecute any alcohol or drug abuse patient.[facility] CenterIn the event this information is protected by the Federal Confidentiality of Alcohol and Drug Abuse Patient Records regulations: The Federal rules restrict any use of the information to criminally investigate or prosecute any alcohol or drug abuse patient.[facility] CenterIn the event this information is protected by the Federal Confidentiality of Alcohol and Drug Abuse Patient Records regulations: The Federal rules restrict any use of the information to criminally investigate or prosecute any alcohol or drug abuse patient.[facility] CenterIn the event this information is protected by the Federal Confidentiality of Alcohol and Drug Abuse Patient Records regulations: The Federal rules restrict any use of the information to criminally investigate or prosecute any alcohol or drug abuse patient.[facility] CenterIn the event this information is protected by the Federal Confidentiality of Alcohol and Drug Abuse Patient Records regulations: The Federal rules restrict any use of the information to criminally investigate or prosecute any alcohol or drug abuse patient.[facility] CenterIn the event this information is protected by the Federal Confidentiality of Alcohol and Drug Abuse Patient Records regulations: The Federal rules restrict any use of the information to criminally investigate or prosecute any alcohol or drug abuse patient.[facility] CenterIn the event this information is protected by the Federal Confidentiality of Alcohol and Drug Abuse Patient Records regulations: The Federal rules restrict any use of the information to criminally investigate or prosecute any alcohol or drug abuse patient.[facility] CenterIn the event this information is protected by the Federal Confidentiality of Alcohol and Drug Abuse Patient Records regulations: The Federal rules restrict any use of the information to criminally investigate or prosecute any alcohol or drug abuse patient.[facility] CenterIn the event this information is protected by the Federal Confidentiality of Alcohol and Drug Abuse Patient Records regulations: The Federal rules restrict any use of the information to criminally investigate or prosecute any alcohol or drug abuse patient.[facility] CenterIn the event this information is protected by the Federal Confidentiality of Alcohol and Drug Abuse Patient Records regulations: The Federal rules restrict any use of the information to criminally investigate or prosecute any alcohol or drug abuse patient.[facility] CenterIn the event this information is protected by the Federal Confidentiality of Alcohol and Drug Abuse Patient Records regulations: The Federal rules restrict any use of the information to criminally investigate or prosecute any alcohol or drug abuse patient.[facility] CenterIn the event this information is protected by the Federal Confidentiality of Alcohol and Drug Abuse Patient Records regulations: The Federal rules restrict any use of the information to criminally investigate or prosecute any alcohol or drug abuse patient.[facility] CenterIn the event this information is protected by the Federal Confidentiality of Alcohol and Drug Abuse Patient Records regulations: The Federal rules restrict any use of the information to criminally investigate or prosecute any alcohol or drug abuse patient.[facility] CenterIn the event this information is protected by the Federal Confidentiality of Alcohol and Drug Abuse Patient Records regulations: The Federal rules restrict any use of the information to criminally investigate or prosecute any alcohol or drug abuse patient.[facility] CenterIn the event this information is protected by the Federal Confidentiality of Alcohol and Drug Abuse Patient Records regulations: The Federal rules restrict any use of the information to criminally investigate or prosecute any alcohol or drug abuse patient.[facility] CenterIn the event this information is protected by the Federal Confidentiality of Alcohol and Drug Abuse Patient Records regulations: The Federal rules restrict any use of the information to criminally investigate or prosecute any alcohol or drug abuse patient.[facility] CenterIn the event this information is protected by the Federal Confidentiality of Alcohol and Drug Abuse Patient Records regulations: The Federal rules restrict any use of the information to criminally investigate or prosecute any alcohol or drug abuse patient.[facility] CenterIn the event this information is protected by the Federal Confidentiality of Alcohol and Drug Abuse Patient Records regulations: The Federal rules restrict any use of the information to criminally investigate or prosecute any alcohol or drug abuse patient.[facility] CenterIn the event this information is protected by the Federal Confidentiality of Alcohol and Drug Abuse Patient Records regulations: The Federal rules restrict any use of the information to criminally investigate or prosecute any alcohol or drug abuse patient.[facility] CenterIn the event this information is protected by the Federal Confidentiality of Alcohol and Drug Abuse Patient Records regulations: The Federal rules restrict any use of the information to criminally investigate or prosecute any alcohol or drug abuse patient.[facility] CenterIn the event this information is protected by the Federal Confidentiality of Alcohol and Drug Abuse Patient Records regulations: The Federal rules restrict any use of the information to criminally investigate or prosecute any alcohol or drug abuse patient.[facility] CenterIn the event this information is protected by the Federal Confidentiality of Alcohol and Drug Abuse Patient Records regulations: The Federal rules restrict any use of the information to criminally investigate or prosecute any alcohol or drug abuse patient.[facility] CenterIn the event this information is protected by the Federal Confidentiality of Alcohol and Drug Abuse Patient Records regulations: The Federal rules restrict any use of the information to criminally investigate or prosecute any alcohol or drug abuse patient.[facility] CenterIn the event this information is protected by the Federal Confidentiality of Alcohol and Drug Abuse Patient Records regulations: The Federal rules restrict any use of the information to criminally investigate or prosecute any alcohol or drug abuse patient.[facility] CenterIn the event this information is protected by the Federal Confidentiality of Alcohol and Drug Abuse Patient Records regulations: The Federal rules restrict any use of the information to criminally investigate or prosecute any alcohol or drug abuse patient.[facility] CenterIn the event this information is protected by the Federal Confidentiality of Alcohol and Drug Abuse Patient Records regulations: The Federal rules restrict any use of the information to criminally investigate or prosecute any alcohol or drug abuse patient.[facility] CenterIn the event this information is protected by the Federal Confidentiality of Alcohol and Drug Abuse Patient Records regulations: The Federal rules restrict any use of the information to criminally investigate or prosecute any alcohol or drug abuse patient.[facility] CenterIn the event this information is protected by the Federal Confidentiality of Alcohol and Drug Abuse Patient Records regulations: The Federal rules restrict any use of the information to criminally investigate or prosecute any alcohol or drug abuse patient.[facility] CenterIn the event this information is protected by the Federal Confidentiality of Alcohol and Drug Abuse Patient Records regulations: The Federal rules restrict any use of the information to criminally investigate or prosecute any alcohol or drug abuse patient.[facility] CenterIn the event this information is protected by the Federal Confidentiality of Alcohol and Drug Abuse Patient Records regulations: The Federal rules restrict any use of the information to criminally investigate or prosecute any alcohol or drug abuse patient.[facility] CenterIn the event this information is protected by the Federal Confidentiality of Alcohol and Drug Abuse Patient Records regulations: The Federal rules restrict any use of the information to criminally investigate or prosecute any alcohol or drug abuse patient.[facility] CenterIn the event this information is protected by the Federal Confidentiality of Alcohol and Drug Abuse Patient Records regulations: The Federal rules restrict any use of the information to criminally investigate or prosecute any alcohol or drug abuse patient.[facility] CenterIn the event this information is protected by the Federal Confidentiality of Alcohol and Drug Abuse Patient Records regulations: The Federal rules restrict any use of the information to criminally investigate or prosecute any alcohol or drug abuse patient.[facility] CenterIn the event this information is protected by the Federal Confidentiality of Alcohol and Drug Abuse Patient Records regulations: The Federal rules restrict any use of the information to criminally investigate or prosecute any alcohol or drug abuse patient.[facility] CenterIn the event this information is protected by the Federal Confidentiality of Alcohol and Drug Abuse Patient Records regulations: The Federal rules restrict any use of the information to criminally investigate or prosecute any alcohol or drug abuse patient.[facility] CenterIn the event this information is protected by the Federal Confidentiality of Alcohol and Drug Abuse Patient Records regulations: The Federal rules restrict any use of the information to criminally investigate or prosecute any alcohol or drug abuse patient.[facility] CenterIn the event this information is protected by the Federal Confidentiality of Alcohol and Drug Abuse Patient Records regulations: The Federal rules restrict any use of the information to criminally investigate or prosecute any alcohol or drug abuse patient.[facility] CenterIn the event this information is protected by the Federal Confidentiality of Alcohol and Drug Abuse Patient Records regulations: The Federal rules restrict any use of the information to criminally investigate or prosecute any alcohol or drug abuse patient.[facility] CenterIn the event this information is protected by the Federal Confidentiality of Alcohol and Drug Abuse Patient Records regulations: The Federal rules restrict any use of the information to criminally investigate or prosecute any alcohol or drug abuse patient.[facility] CenterIn the event this information is protected by the Federal Confidentiality of Alcohol and Drug Abuse Patient Records regulations: The Federal rules restrict any use of the information to criminally investigate or prosecute any alcohol or drug abuse patient.[facility] CenterIn the event this information is protected by the Federal Confidentiality of Alcohol and Drug Abuse Patient Records regulations: The Federal rules restrict any use of the information to criminally investigate or prosecute any alcohol or drug abuse patient.[facility] CenterIn the event this information is protected by the Federal Confidentiality of Alcohol and Drug Abuse Patient Records regulations: The Federal rules restrict any use of the information to criminally investigate or prosecute any alcohol or drug abuse patient.[facility] CenterIn the event this information is protected by the Federal Confidentiality of Alcohol and Drug Abuse Patient Records regulations: The Federal rules restrict any use of the information to criminally investigate or prosecute any alcohol or drug abuse patient.[facility] CenterIn the event this information is protected by the Federal Confidentiality of Alcohol and Drug Abuse Patient Records regulations: The Federal rules restrict any use of the information to criminally investigate or prosecute any alcohol or drug abuse patient.[facility] CenterIn the event this information is protected by the Federal Confidentiality of Alcohol and Drug Abuse Patient Records regulations: The Federal rules restrict any use of the information to criminally investigate or prosecute any alcohol or drug abuse patient.[facility] CenterIn the event this information is protected by the Federal Confidentiality of Alcohol and Drug Abuse Patient Records regulations: The Federal rules restrict any use of the information to criminally investigate or prosecute any alcohol or drug abuse patient.[facility] CenterIn the event this information is protected by the Federal Confidentiality of Alcohol and Drug Abuse Patient Records regulations: The Federal rules restrict any use of the information to criminally investigate or prosecute any alcohol or drug abuse patient.[facility] CenterIn the event this information is protected by the Federal Confidentiality of Alcohol and Drug Abuse Patient Records regulations: The Federal rules restrict any use of the information to criminally investigate or prosecute any alcohol or drug abuse patient.[facility] CenterIn the event this information is protected by the Federal Confidentiality of Alcohol and Drug Abuse Patient Records regulations: The Federal rules restrict any use of the information to criminally investigate or prosecute any alcohol or drug abuse patient.[facility] CenterIn the event this information is protected by the Federal Confidentiality of Alcohol and Drug Abuse Patient Records regulations: The Federal rules restrict any use of the information to criminally investigate or prosecute any alcohol or drug abuse patient.[facility] CenterIn the event this information is protected by the Federal Confidentiality of Alcohol and Drug Abuse Patient Records regulations: The Federal rules restrict any use of the information to criminally investigate or prosecute any alcohol or drug abuse patient.[facility] CenterIn the event this information is protected by the Federal Confidentiality of Alcohol and Drug Abuse Patient Records regulations: The Federal rules restrict any use of the information to criminally investigate or prosecute any alcohol or drug abuse patient.[facility] CenterIn the event this information is protected by the Federal Confidentiality of Alcohol and Drug Abuse Patient Records regulations: The Federal rules restrict any use of the information to criminally investigate or prosecute any alcohol or drug abuse patient.[facility] CenterIn the event this information is protected by the Federal Confidentiality of Alcohol and Drug Abuse Patient Records regulations: The Federal rules restrict any use of the information to criminally investigate or prosecute any alcohol or drug abuse patient.[facility] CenterIn the event this information is protected by the Federal Confidentiality of Alcohol and Drug Abuse Patient Records regulations: The Federal rules restrict any use of the information to criminally investigate or prosecute any alcohol or drug abuse patient.[facility] CenterIn the event this information is protected by the Federal Confidentiality of Alcohol and Drug Abuse Patient Records regulations: The Federal rules restrict any use of the information to criminally investigate or prosecute any alcohol or drug abuse patient.[facility] CenterIn the event this information is protected by the Federal Confidentiality of Alcohol and Drug Abuse Patient Records regulations: The Federal rules restrict any use of the information to criminally investigate or prosecute any alcohol or drug abuse patient.[facility] CenterIn the event this information is protected by the Federal Confidentiality of Alcohol and Drug Abuse Patient Records regulations: The Federal rules restrict any use of the information to criminally investigate or prosecute any alcohol or drug abuse patient.[facility] CenterIn the event this information is protected by the Federal Confidentiality of Alcohol and Drug Abuse Patient Records regulations: The Federal rules restrict any use of the information to criminally investigate or prosecute any alcohol or drug abuse patient.[facility] CenterIn the event this information is protected by the Federal Confidentiality of Alcohol and Drug Abuse Patient Records regulations: The Federal rules restrict any use of the information to criminally investigate or prosecute any alcohol or drug abuse patient.[facility] CenterIn the event this information is protected by the Federal Confidentiality of Alcohol and Drug Abuse Patient Records regulations: The Federal rules restrict any use of the information to criminally investigate or prosecute any alcohol or drug abuse patient.[facility] CenterIn the event this information is protected by the Federal Confidentiality of Alcohol and Drug Abuse Patient Records regulations: The Federal rules restrict any use of the information to criminally investigate or prosecute any alcohol or drug abuse patient.[facility] CenterIn the event this information is protected by the Federal Confidentiality of Alcohol and Drug Abuse Patient Records regulations: The Federal rules restrict any use of the information to criminally investigate or prosecute any alcohol or drug abuse patient.[facility] CenterIn the event this information is protected by the Federal Confidentiality of Alcohol and Drug Abuse Patient Records regulations: The Federal rules restrict any use of the information to criminally investigate or prosecute any alcohol or drug abuse patient.[facility] CenterIn the event this information is protected by the Federal Confidentiality of Alcohol and Drug Abuse Patient Records regulations: The Federal rules restrict any use of the information to criminally investigate or prosecute any alcohol or drug abuse patient.[facility] CenterIn the event this information is protected by the Federal Confidentiality of Alcohol and Drug Abuse Patient Records regulations: The Federal rules restrict any use of the information to criminally investigate or prosecute any alcohol or drug abuse patient.[facility] CenterIn the event this information is protected by the Federal Confidentiality of Alcohol and Drug Abuse Patient Records regulations: The Federal rules restrict any use of the information to criminally investigate or prosecute any alcohol or drug abuse patient.[facility] CenterIn the event this information is protected by the Federal Confidentiality of Alcohol and Drug Abuse Patient Records regulations: The Federal rules restrict any use of the information to criminally investigate or prosecute any alcohol or drug abuse patient.[facility] CenterIn the event this information is protected by the Federal Confidentiality of Alcohol and Drug Abuse Patient Records regulations: The Federal rules restrict any use of the information to criminally investigate or prosecute any alcohol or drug abuse patient.[facility] CenterIn the event this information is protected by the Federal Confidentiality of Alcohol and Drug Abuse Patient Records regulations: The Federal rules restrict any use of the information to criminally investigate or prosecute any alcohol or drug abuse patient.[facility] CenterIn the event this information is protected by the Federal Confidentiality of Alcohol and Drug Abuse Patient Records regulations: The Federal rules restrict any use of the information to criminally investigate or prosecute any alcohol or drug abuse patient.[facility] CenterIn the event this information is protected by the Federal Confidentiality of Alcohol and Drug Abuse Patient Records regulations: The Federal rules restrict any use of the information to criminally investigate or prosecute any alcohol or drug abuse patient.[facility] CenterIn the event this information is protected by the Federal Confidentiality of Alcohol and Drug Abuse Patient Records regulations: The Federal rules restrict any use of the information to criminally investigate or prosecute any alcohol or drug abuse patient.[facility] CenterIn the event this information is protected by the Federal Confidentiality of Alcohol and Drug Abuse Patient Records regulations: The Federal rules restrict any use of the information to criminally investigate or prosecute any alcohol or drug abuse patient.[facility] CenterIn the event this information is protected by the Federal Confidentiality of Alcohol and Drug Abuse Patient Records regulations: The Federal rules restrict any use of the information to criminally investigate or prosecute any alcohol or drug abuse patient.[facility] CenterIn the event this information is protected by the Federal Confidentiality of Alcohol and Drug Abuse Patient Records regulations: The Federal rules restrict any use of the information to criminally investigate or prosecute any alcohol or drug abuse patient.[facility] CenterIn the event this information is protected by the Federal Confidentiality of Alcohol and Drug Abuse Patient Records regulations: The Federal rules restrict any use of the information to criminally investigate or prosecute any alcohol or drug abuse patient.[facility] CenterIn the event this information is protected by the Federal Confidentiality of Alcohol and Drug Abuse Patient Records regulations: The Federal rules restrict any use of the information to criminally investigate or prosecute any alcohol or drug abuse patient.[facility] CenterIn the event this information is protected by the Federal Confidentiality of Alcohol and Drug Abuse Patient Records regulations: The Federal rules restrict any use of the information to criminally investigate or prosecute any alcohol or drug abuse patient.[facility] CenterIn the event this information is protected by the Federal Confidentiality of Alcohol and Drug Abuse Patient Records regulations: The Federal rules restrict any use of the information to criminally investigate or prosecute any alcohol or drug abuse patient.[facility] CenterIn the event this information is protected by the Federal Confidentiality of Alcohol and Drug Abuse Patient Records regulations: The Federal rules restrict any use of the information to criminally investigate or prosecute any alcohol or drug abuse patient.[facility] CenterIn the event this information is protected by the Federal Confidentiality of Alcohol and Drug Abuse Patient Records regulations: The Federal rules restrict any use of the information to criminally investigate or prosecute any alcohol or drug abuse patient.[facility] CenterIn the event this information is protected by the Federal Confidentiality of Alcohol and Drug Abuse Patient Records regulations: The Federal rules restrict any use of the information to criminally investigate or prosecute any alcohol or drug abuse patient.[facility] CenterIn the event this information is protected by the Federal Confidentiality of Alcohol and Drug Abuse Patient Records regulations: The Federal rules restrict any use of the information to criminally investigate or prosecute any alcohol or drug abuse patient.[facility] Reason for Visit (unrecogniz ed section and [...] left Procedures CONSULT TO PODIATRY OFFICE/OUTPATIENT [facility] 60-74 MINUTES Mikayla Strange MD [address] [place] [address] Referral ID Status Reason Start Date Expiration Date V isits Requested Visits Authorized [id number] Closed PCP Requested Referral 12/17/2021 12/17/2022 1 [...] Nausea Procedures CONSULT TO GENERAL SURGERY OFFICE/OUTPATIENT [facility] 60-74 MINUTES Mikayla Strange MD [address] [place] [address] Referral ID Status Reason Start Date Expiration Date V isits Requested Visits Authorized [id number] Closed PCP Requested Referral 03/22/2022 03/22/2023 1 [...] LOWER EXTREMITY W/O CONTRAST MATERIAL Noe Muniz [address] [place] [address] [place] [address] Referral ID Status Reason Start Date Expiration Date V isits Requested Visits Authorized [id number] Closed Auto-Generate d Referral 08/29/2022 10/13/2022 1 1 Reason Comments 6 Month Exam Reason Onset Date Comments Refill Request 08/08/2023 Reason Onset Date Comments Refill Request 08/15/2023 Reason Onset Date Comments Refill Request 11/16/2023 Reason Comments 6 Month Exam Reason Onset Date Comments Refill Request 02/05/2024 Reason Comments Results Reason Comments UTI Specialty Diagnoses / Procedures Referred By Contac t Referred To Contact Urology Diagnoses Dysuria Microscopic hematuria Procedures CONSULT TO UROLOGY OFFICE/OUTPATIENT [facility] 60 MINUTES Mikayla Strange MD [address] [place] [address] Referral ID Status Reason Start Date Expiration Date V isits Requested Visits Authorized [id number] Closed PCP Requested Referral 03/09/2024 03/09/2025 1 1 Reason Onset Date Comments Refill Request 04/22/2024 Reason Comments Home Health orders Reason Comments Orders Reason Comments Patient Update Reason Onset Date Comments Symptoms 06/24/[address] Boss - Other Reason Comments PT Orders Reason [...] options Reason Comments Established Patient Follow Up Reason Comments Medicare Wellness Exam Care Teams (unrecognized sec tion and content) Drug Worker Relationship Specialty Start Date End Date Mikayla Strange MD [address] [facility] [address] PCP - General Family Practice 05/11/19 Drug Worker Relationship Specialty Start Date End Date Mikayla Strange MD [address] [facility] [address] PCP - General Family Practice 05/11/19 Drug Worker Relationship Specialty Start Date End Date Mikayla Strange MD [address] [facility] [address] PCP - General Family Practice 05/11/19 Drug Worker Relationship Specialty Start Date End Date Mikayla Strange MD [address] [facility] [address] PCP - General Family Practice 05/11/19 Drug Worker Relationship Specialty Start Date End Date Mikayla Strange MD [address] [facility] [address] PCP - General Family Practice 05/11/19 Drug Worker Relationship Specialty Start Date End Date Mikayla Strange MD [address] [facility] [address] PCP - General Family Practice 05/11/19 Drug Worker Relationship Specialty Start Date End Date Mikayla Strange MD [address] [facility] [address] PCP - General Family Practice 05/11/19 Drug Worker Relationship Specialty Start Date End Date Mikayla Strange MD [address] [facility] [address] PCP - General Family Practice 05/11/19 Drug Worker Relationship Specialty Start Date End Date Mikayla Strange MD [address] [facility] [address] PCP - General Family Practice 05/11/19 Drug Worker Relationship Specialty Start Date End Date Mikayla Strange MD [address] [facility] [address] PCP - General Family Practice 05/11/19 Drug Worker Relationship Specialty Start Date End Date Mikayla Strange MD [address] [facility] [address] PCP - General Family Practice 05/11/19 Drug Worker Relationship Specialty Start Date End Date Mikayla Strange MD [address] [facility] [address] PCP - General Family Medicine 05/11/19 Drug Worker Relationship Specialty Start Date End Date Mikayla Strange MD [address] [facility] [address] PCP - General Family Medicine 05/11/19 Drug Worker Relationship Specialty Start Date End Date Mikayla Strange MD [address] [facility] [address] PCP - General Family Medicine 05/11/19 Drug Worker Relationship Specialty Start Date End Date Mikayla Strange MD [address] [facility] [address] PCP - General Family Medicine 05/11/19 Drug Worker Relationship Specialty Start Date End Date Mikayla Strange MD [address] [facility] [address] PCP - General Family Medicine 05/11/19 Drug Worker Relationship Specialty Start Date End Date Mikayla Strange MD [address] [facility] [address] PCP - General Family Medicine 05/11/19 Drug Worker Relationship Specialty Start Date End Date Mikayla Strange MD [address] [facility] [address] PCP - General Family Medicine 05/11/19 Team [...] MD Attending Provider, Referring Pr ovider Active Drug Worker Relationship Specialty Start Date End Date Mikayla Strange MD [address] [facility] [address] PCP - General Family Medicine 05/11/19 Drug Worker Relationship Specialty Start Date End Date Mikayla Strange MD [address] [facility] [address] PCP - General Family Medicine 05/11/19 Drug Worker Relationship Specialty Start Date End Date Mikayla Strange MD [address] [facility] [address] PCP - General Family Medicine 05/11/19 Drug Worker Relationship Specialty Start Date End Date Mikayla Strange MD [address] [facility] [address] PCP - General Family Medicine 05/11/19 Team Status: Inactive Member Role Status Dates Dr. Mikayla Strange MD Primary Care Provider Active Dr. Noe Muniz , DPM Attending Provider, Referri ng Provider Active Drug Worker Relationship Specialty Start Date End Date Mikayla Strange MD [address] [facility] [address] PCP - General Family Medicine 05/11/19 Drug Worker Relationship Specialty Start Date End Date Mikayla Strange MD [address] [facility] [address] PCP - General Family Medicine 05/11/19 Drug Worker Relationship Specialty Start Date End Date Mikayla Strange MD [address] [place], [place] [address] PCP - General Family Medicine 05/11/19 Drug Worker Relationship Specialty Start Date End Date Mikayla Strange MD [address] [place], [place] [address] PCP - General Family Medicine 05/11/19 Drug Worker Relationship Specialty Start Date End Date Mikayla Strange MD [address] [place] [address] PCP - General Family Medicine 05/11/19 Drug Worker Relationship Specialty Start Date End Date Mikayla Strange MD [address] [place] [address] PCP - General Family Medicine 05/11/19 Drug Worker Relationship Specialty Start Date End Date Mikayal Strange MD [address] [place] [address] PCP - General Family Medicine 05/11/19 Drug Worker Relationship Specialty Start Date End Date Mikayla Strange MD [address] [place] [address] PCP - General Family Medicine 05/11/19 Drug Worker Relationship Specialty Start Date End Date Mikayla Strange MD [address] [place], [place] [address] PCP - General Family Medicine 05/11/19 Drug Worker Relationship Specialty Start Date End Date Mikayla Strange MD [address] [place], [place] [address] [phone] PCP - General Family Medicine 05/11/19 Drug Worker Relationship Specialty Start Date End Date Mikayla Strange MD [address] [place] [address] PCP - General Family Medicine 05/11/19 Drug Worker Relationship Specialty Start Date End Date Mikayla Strange MD [address] [place], [place] [address] PCP - General Family Medicine 05/11/19 Drug Worker Relationship Specialty Start Date End Date Mikayla Strange MD [address] [place], [place] [address] PCP - General Family Medicine 05/11/19 Drug Worker Relationship Specialty Start Date End Date Mikayla Strange MD [address] [place] [address] PCP - General Family Medicine 05/11/19 Drug Worker Relationship Specialty Start Date End Date Mikayla Strange MD [address] [place] [address] PCP - General Family Medicine 05/11/19 Drug Worker Relationship Specialty Start Date End Date Mikayla Strange MD [address] [place] [address] PCP - General Family Medicine 05/11/19 Drug Worker Relationship Specialty Start Date End Date Mikayla Strange MD [address] [place], [place] [address] PCP - General Family Medicine 05/11/19 Drug Worker Relationship Specialty Start Date End Date Mikayla Strange MD [address] [place], [place] [address] PCP - General Family Medicine 05/11/19 Drug Worker Relationship Specialty Start Date End Date Mikayla Strange MD [address] [place], [place] [address] PCP - General Family Medicine 05/11/19 Drug Worker Relationship Specialty Start Date End Date Mikayla Strange MD [address] [place], [place] [address] PCP - General Family Medicine 05/11/19 Drug Worker Relationship Specialty Start Date End Date Mikayla Strange MD [address] [place] [address] PCP - General Family Medicine 05/11/19 Drug Worker Relationship Specialty Start Date End Date Mikayla Strange MD [address] [place] [address] PCP - General Family Medicine 05/11/19 Drug Worker Relationship Specialty Start Date End Date Mikayla Strange MD [address] [place] [address] PCP - General Family Medicine 05/11/19 Sayda Carr APRN.INSPECTOR AND [employer] [address] [place] [address] Clinical Pharmacologist Family Medicine 06/03/24 Ginger Lundberg APRN.INSPECTOR AND HAND PACKAGER [address] [place] [address] Clinical Pharmacologist Family Medicine 06/03/24 Drug Worker Relationship Specialty Start Date End Date Mikayla Strange MD [address] [place], [place] [address] PCP - General Family Medicine 05/11/19 Sayda Carr APRN.INSPECTOR AND HAND PACKAGER [address] [place] [address] Clinical Pharmacologist Family Medicine 06/03/24 Ginger Lundberg APRN.INSPECTOR AND HAND PACKAGER [address] [place] [address] [facility] Drug Worker Relationship Specialty Start Date End Date Mikayla Strange MD [address] [place] [address] PCP - General Family Medicine 05/11/19 Sayda Carr APRN.INSPECTOR AND HAND PACKAGER [address] [place] [address] Clinical Pharmacologist Family [facility] 06/03/24 Ginger Lundberg CHAINSTITCH FELLED SEAM OPERATOR.INSPECTOR AND HAND PACKAGER [address] [place] [address] [facility] Drug Worker Relationship Specialty Start Date End Date Mikayla Strange MD [address] [place] [address] PCP - General Family Medicine 05/11/19 Sayda Carr CHAINSTITCH FELLED SEAM OPERATOR.INSPECTOR AND HAND PACKAGER [address] [place] [address] [facility] 06/03/24 Drug Worker Relationship Specialty Start Date End Date Mikayla Strange MD [address] [place] [address] PCP - General Family Medicine 05/11/19 Sayda Carr APRN.INSPECTOR AND HAND PACKAGER [address] [facility] [place] [address] [facility] 06/03/24 Drug Worker Relationship Specialty Start Date End Date Mikayla Strange MD [address] [facility] [address] PCP - General Family Medicine 05/11/19 Sayda Crar APRN.INSPECTOR AND HAND PACKAGER [address] [facility] [place] [address] [facility] 06/03/24 Ginger Lundberg APRN.INSPECTOR AND HAND PACKAGER [address] [facility] [address] [facility] 06/[facility] Drug Worker Relationship Specialty Start Date End Date Mikayla Strange MD [address] [facility] [address] PCP - General Family Medicine 05/11/19 Sayda Carr APRN.INSPECTOR AND HAND PACKAGER [address] [facility] [place] [address] [facility] 06/03/24 Ginger Lundberg CHAINSTITCH FELLED SEAM OPERATOR.INSPECTOR AND HAND PACKAGER [address] [facility] [address] [facility] 06/03/24 Drug Worker Relationship Specialty Start Date End Date Mikayla Strange MD [address] [facility] [address] PCP - General Family Medicine 05/11/19 Sayda Carr APRN.INSPECTOR AND HAND PACKAGER [address] [facility] [place] [address] Clinical Pharmacologist Family [facility] 06/03/24 Ginger Lundberg APRN.INSPECTOR AND HAND PACKAGER [address] [facility] [address] Clinical Pharmacologist Family Medicine 06/03/24 Drug Worker Relationship Specialty Start Date End Date Mikayla Strange MD [address] [facility] [address] PCP - General Family Medicine 05/11/19 Sayda Carr APRN.INSPECTOR AND HAND PACKAGER [address] [facility] [place] [address] Clinical Pharmacologist [facility] Medicine 06/03/24 Ginger Lundberg APRN.INSPECTOR AND HAND PACKAGER [address] [facility] [address] [facility] 06/03/24 Drug Worker Relationship Specialty Start Date End Date Mikayla Strange MD [address] [facility] [address] PCP - General Family Medicine 05/11/19 Sayda Carr APRN.INSPECTOR AND HAND PACKAGER [address] [facility] [place] [address] Clinical Pharmacologist Family Medicine 06/03/24 Ginger Lundberg APRN.INSPECTOR AND HAND PACKAGER [address] [facility] [address] [facility] 06/03/24 Drug Worker Relationship Specialty Start Date End Date Mikayla Strange MD [address] [facility] [address] PCP - General Family Medicine 05/11/19 Sayda Carr APRN.INSPECTOR AND HAND PACKAGER [address] [place] [address] Clinical Pharmacologist Family Medicine 06/03/24 Ginger Lundberg APRN.INSPECTOR AND HAND PACKAGER [address] [place] [address] [facility] 06/03/24 Drug Worker Relationship Specialty Start Date End Date Mikayla Strange MD [address] [place] [address] PCP - General Family Medicine 05/11/19 Sayda Carr APRN.INSPECTOR AND HAND PACKAGER [address] [place] [address] [facility] 06/03/24 Ginger Lundberg APRN.INSPECTOR AND HAND PACKAGER [address] [place] [address] [facility] 06/03/24 Drug Worker Relationship Specialty Start Date End Date Mikayla Strange MD [address] [place] [address] PCP - General Family Medicine 05/11/19 Sayda Carr APRN.INSPECTOR AND HAND PACKAGER [address] [place] [address] [facility] 06/03/24 Ginger Lundberg APRN.INSPECTOR AND HAND PACKAGER [address] [place] [address] [facility] Family Medicine 06/03/24 Team Status: Active Member Role Status [...] Referring Provider Active Start: September 16, 2024 Drug Worker Relationship Specialty Start Date End Date Mikayla Strange MD [address] [place] [address] PCP - General Family Medicine 05/11/19 Sayda Carr APRN.INSPECTOR AND HAND PACKAGER [address] [place] [address] [facility] 06/03/24 Ginger Lundberg APRN.INSPECTOR AND HAND PACKAGER [address] [place] [address] [facility] 06/03/24 Drug Worker Relationship Specialty Start Date End Date Mikayla Strange MD [address] [place] [address] PCP - General Family Medicine 05/11/19 Sayda Carr APRN.INSPECTOR AND HAND PACKAGER [address] [place] [address] [facility] 06/03/24 Ginger Lundberg CHAINSTITCH FELLED SEAM OPERATOR.INSPECTOR AND HAND PACKAGER [address] [place] [address] [facility] 06/03/24 Drug Worker Relationship Specialty Start Date End Date Mikayla Strange MD [address] [place] [address] PCP - General Family Medicine 05/11/19 Sayda Carr APRN.INSPECTOR AND HAND PACKAGER [address] [facility] [place] [address] [facility] 06/03/24 Ginger Lundberg APRN.INSPECTOR AND HAND PACKAGER [address] [place] [address] [facility] 06/03/24 Team Status: Active Member Role Status [...] Inactive Member Role Status Dates Dr. Mikayla tSrange MD Primary Care Provider Active Start: November [...] November 21, 2024 End: November 21, 2024 Drug Worker Relationship Specialty Start Date End Date Mikayla Strange MD [address] [facility] [address] PCP - General Family Medicine 05/11/19 Sayda Carr, CHAINSTITCH FELLED SEAM OPERATOR.INSPECTOR AND HAND PACKAGER [address] [facility] [place] [address] [facility] 06/03/24 Ginger Lundberg, CHAINSTITCH FELLED SEAM OPERATOR.INSPECTOR AND HAND PACKAGER [address] [facility] [address] [facility] Medicine 06/03/24 Drug Worker Relationship Specialty Start Date End Date Mikayla Strange MD [address] [facility] [address] PCP - General Family Medicine 05/11/19 Sayda Carr, CHAINSTITCH FELLED SEAM OPERATOR.INSPECTOR AND HAND PACKAGER [address] [facility] [place] [address] [facility] 06/03/24 Ginger Lundberg, CHAINSTITCH FELLED SEAM OPERATOR.INSPECTOR AND HAND PACKAGER [address] [facility] [address] [facility] 06/03/24 Team Status: Inactive Member Role Status Dates Dr. Mikayla Strange MD Primary Care Provider Active Start: November 27, 2024 End: November 27, 2024 Dr. Latia Ward MD Attending Provider Active Start: November 27, 2024 End: November 27, 2024 Dr. Latia Ward MD Referring Provider Active Start: November 27, 2024 End: November 27, 2024 Goals (unrecognized section and content) Goals may [...] ized section and content) DATE CREATED AUTHOR 11/26/2024 [facility] DATE CREATED AUTHOR AUTHOR'S ORGANIZ ATION 11/30/2024 [facility] DATE CREATED AUTHOR AUTHOR'S ORGANIZ ATION 12/06/2024 [facility] FOR RECORDS PERTAINING TO PATIENTS WHO [...] BE BASED ON THE PRIMARY CLINICAL RECORDS. [employer] provides no warranty or guarantee of the accuracy or completeness of information in this document.
--- NOTE | 2024-12-07 14:45 | MRI_ITS ---
PROCEDURE: SPINE LUMBAR (ROUTINE) 12/07/2024 REASON FOR EXAM: PAIN, NEUROGENIC CLAUDICATION TECHNIQUE: SPINE LUMBAR (ROUTINE) COMPARISON: None FINDINGS: There is normal signal intensity from the visualized bone marrow without evidence of replacement or acute fracture. The conus is unremarkable. Normal lumbar lordosis. The vertebral alignment is within normal limits. Evaluation of the individual levels revealed the following: L5-S1: There is no evidence of disk herniation. The spinal canal is not narrowed. There is no evidence of neural foramina narrowing. L4-5: There is moderate degree of loss of height of the intervertebral disc with disc dehydration. Broad-based central posterior disc bulge is seen slightly impinging on the anterior aspect of the thecal sac. The spinal canal is not narrowed. There is no evidence of neural foramina narrowing. Degenerative changes are seen involving the intervertebral facet joints. L3-4: There is no evidence of disk herniation. The spinal canal is not narrowed. There is no evidence of neural foramina narrowing. Degenerative changes are seen involving the intervertebral facet joints. L2-3: There is no evidence of disk herniation. The spinal canal is not narrowed. There is no evidence of neural foramina narrowing. Degenerative changes are seen involving the intervertebral facet joints. L1-2: There is no evidence of disk herniation. The spinal canal is not narrowed. There is no evidence of neural foramina narrowing. a narrowing. Normal visualized paraspinous soft tissue structures. MRI/Spine Lumbar (Routine) IMPRESSION: L4-L5 degenerative disc disease. Minimal central posterior disc bulge at L4-L5 without significant stenosis. 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 Reading Location: [facility]
== END | disposition home or self-care (01) ==
PROVIDERS: PCP Family Medicine; Referring Provider Student in an Organized Health Care Education/Training Program; Visit Provider Student in an Organized Health Care Education/Training Program
DX: M54.50 Low back pain, unspecified (principal)
CPT/HCPCS: 72148

== ENCOUNTER → 2025-03-04 | Outpatient (CLI) | payer MEDICARE, SELFPAY ==
[2025-03-04 10:22] LABS: Hematocrit 39.4 % (37-47); Hemoglobin 12.4 g/dL (12.0-15.0); Immature Granulocytes Count 0.040 X10^3/uL (0.0-0.0); Mean Corp Hgb Conc 31.5 g/dL (32-36); Mean Corpuscular Volume 91.0 fL (81-99); Mean Platelet Vol. 12.4 fl (6.2-12.0); NRBC Flagged by Analyzer 0 % (0-5); Platelet Count 254 K/mm3 (150-450); RBC Distribution Width CV 14.4 % (11.6-14.6); RBC Distribution Width SD 48.5 fl (35.1-43.9); Red Blood Count 4.33 M/mm3 (4.2-5.4); White Blood Count 8.2 K/mm3 (4.4-11.0)
[2025-03-04 10:52] LABS: AST(SGOT) 27 U/L (<=31); Alanine Aminotransfer ALT/SGPT 21 U/L (<=34); Albumin, Serum 3.9 g/dL (3.4-4.8); Alkaline Phosphatase 126 U/L (35-104); Anion Gap 12 (5-15); BUN 7 mg/dL (4-19); BUN/Creat Ratio 8.9 RATIO (10-20); Calcium,Total 8.7 mg/dL (7.6-11.0); Carbon Dioxide 20.5 mmol/L (21.0-32.0); Chloride 106 mmol/L (98-108); Globulin 2.7 g/dL (2.2-4.2); Glucose 67 mg/dL (70-99); Potassium 3.9 mmol/L (3.3-5.1)
== END | disposition home or self-care (01) ==
LOC: MTLAB 07:59
PROVIDERS: PCP Family Medicine; Referring Provider Internal Medicine Rheumatology; Visit Provider Internal Medicine Rheumatology
DX: M06.09 Rheumatoid arthritis without rheumatoid factor, multiple sites (principal); Z79.899 Other long term (current) drug therapy
CPT/HCPCS: 36415; 80053; 85025

== ENCOUNTER 2025-03-20 09:05 | Day surgery (SDC) | payer MEDICARE, SELFPAY ==
--- NOTE | 2025-03-07 12:26 | PAT.ANESEVAL ---
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 When Was Last Pacemaker Check QUESTION #4 FULL TEXT: You/Your Family Experience fever (hyperthermia) with Anesthesia Last Oral Intake Last Oral intake: Last Oral Intake NPO since Meds taken in AM with sips of water? 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 Female Yes 03/07/25 10:59 HX of Motion Sickness Yes 03/07/25 10:59 HX of N/V After Surgery No 03/07/25 10:59 Non-Smoker Yes 03/07/25 10:59 Duration of Surgery greater Yes 03/07/25 10:59 than 60 minutes Number of Risk Factors 4 03/07/25 10:59 PONV Score Severe Risk 03/07/25 10:59 Height & Weight Height & Weight: Anesthesia: Height & Weight Height 5 ft 5 in 01/13/25 12:57 Respiratory Assessment Respiratory Assessment - molder automobile carpets: Respiratory Tract Infection Hx - molder automobile carpets Hx Respiratory Tract Infection No 03/07/25 10:59 STOP Sleep Apnea STOP Sleep Apnea - molder automobile carpets: STOP Sleep Apnea - molder automobile carpets Hx Hypertension Yes: PER PT, CONTROLLED ON 03/07/25 10:59 MEDS Hx Sleep Apnea No 03/07/25 10:59 CPAP No 03/07/25 10:59 BIPAP No 03/07/25 10:59 Do you snore loudly (louder Yes 03/07/25 10:59 than talking or can be heard Do you often feel tired/ No 03/07/25 10:59 fatigued/ sleepy during daytime? Has anyone observed you stop No 03/07/25 10:59 breathing during sleep? STOP Results Positive 03/07/25 10:59 QUESTION #5 FULL TEXT : Do you snore loudly (louder than talking or can be heard through closed doors)? 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 Specify any problems Hx of Preganancy in last 3 No 03/07/25 10:59 Months Nurse Filling Out Transfusion MGJOSEPH 03/07/25 10:59 & Questions: Date: 03/07/25 03/07/25 10:59 Time: 11:01 03/07/25 10:59 Patient unable to answer at this time (ie. confused, unrespo /Reproduction History /Reproductive History - molder automobile carpets: /Reproductive Hx- molder automobile carpets Hx Now No 03/07/25 10:59 Gestational Age (in weeks): EDC: Hx Hx Para Hx Section SAB No 03/07/25 10:59 PFSH Medical History (Updated 03/07/25 @ 11:12 by Xena Hanks) History of MRSA infection History of IBS Hypertension MRSA (methicillin resistant staph aureus) culture positive Wears glasses Post-menopausal History of steroid therapy Diabetes Walker as ambulation aid Low iron High cholesterol Back pain Injury of head and neck Migraine headache Heartburn Gastric reflux Non-smoker Leg cramps History of pain when walking History of edema History of stress test History of rheumatic fever Chest pain Bulging discs Glaucoma IBS (irritable bowel syndrome) Fibromyalgia Rheumatoid arthritis Home Medications ?Medication ?Instructions ?Recorded ?Last Taken ?Type atorvastatin 10 mg tablet 10 mg PO QHS cholestorol 05/14/14 08/25/22 History citalopram 40 mg tablet 40 mg PO DAILY anxiety 05/14/14 08/25/22 History latanoprost 0.005 % eye drops 1 drp EACH EYE QHS glaucoma 05/14/14 08/25/22 History prednisone 10 mg tablet 10 mg PO PRN PRN flare up 05/14/14 08/25/22 History sumatriptan succinate 50 mg tablet 50 mg PO .X1 PRN PRN Headache 05/14/14 08/25/22 History promethazine 25 mg rectal 25 mg PO PRN PRN Nausea 12/17/14 08/25/22 History suppository hyoscyamine sulfate 0.125 mg 0.125 mg sublingual Q4H PRN PRN 04/20/16 08/25/22 History sublingual tablet Nausea oxycodone-acetaminophen 7.5 mg-325 1 tab PO TID pain 04/20/16 08/25/22 History mg tablet buspirone 30 mg tablet 30 mg PO BID anxiety 12/20/17 08/25/22 History gabapentin 300 mg capsule 600 mg PO BID 03/25/20 08/25/22 History omeprazole 20 mg capsule,delayed 40 mg PO DAILY 03/25/20 08/25/22 History release upadacitinib 15 mg tablet,extended 15 mg PO DAILY 03/25/20 08/25/22 History release 24 hr (Rinvoq) lisinopril 10 mg tablet 10 mg PO DAILY 08/18/22 08/26/22 History buprenorphine 20 mcg/hour weekly 1 patch topical GARZA 05/01/24 Unknown History transdermal patch ondansetron 4 mg disintegrating 4 mg PO Q8H PRN PRN Nausea #10 tabs 06/24/24 Unknown Rx tablet cinnamon bark 500 mg capsule 500 mg PO DAILY PRN BLOOD SUGAR 03/07/25 Unknown History (Cinnamon) ferrous sulfate 325 mg (65 mg 325 mg PO QODAY 03/07/25 Unknown History iron) tablet gabapentin 300 mg capsule 300 mg PO 1600 03/07/25 Unknown History Allergy/AdvReac Type Severity Reaction Status Date / Time adalimumab (From Humira) Allergy Vomiting Verified 03/07/25 10:53 cefaclor (From Ceclor) Allergy Unknown Verified 03/07/25 10:53 celecoxib (From Celebrex) Allergy Itching Verified 03/07/25 10:53 doxepin (Doxepin) Allergy Unknown Verified 03/07/25 10:53 doxycycline calcium (From Allergy Unknown Verified 03/07/25 10:53 Vibramycin) doxycycline hyclate (From Allergy Unknown Verified 03/07/25 10:53 Vibramycin) doxycycline monohydrate Allergy Unknown Verified 03/07/25 10:53 (From Vibramycin) hydrocodone bitartrate (From Allergy ITCHING Verified 03/07/25 10:53 Vicodin) hydroxychloroquine Allergy Shortness Verified 03/07/25 10:53 (Hydroxychloroquine) of breath leflunomide (From Arava) Allergy Other Verified 03/07/25 10:53 prochlorperazine (From Allergy Shortness Verified 03/07/25 10:53 Compazine) of breath prochlorperazine edisylate Allergy Shortness Verified 03/07/25 10:53 (From Compazine) of breath prochlorperazine maleate Allergy Shortness Verified 03/07/25 10:53 (From Compazine) of breath sulfamethoxazole (From Allergy Unknown Verified 03/07/25 10:53 Septra) terfenadine (From Seldane) Allergy Unknown Verified 03/07/25 10:53 trazodone Allergy Other Verified 03/07/25 10:53 trimethoprim (From Septra) Allergy Unknown Verified 03/07/25 10:53 clarithromycin (From Biaxin) AdvReac Vomiting Verified 03/07/25 10:53 colestipol AdvReac Other Verified 03/07/25 10:53 dicyclomine HCl (From Bentyl) AdvReac Nausea/Vom/ Verified 03/07/25 10:53 Diarrhea doxycycline (From Vibramycin) AdvReac Nausea Verified 03/07/25 10:53 fentanyl AdvReac Nausea Verified 03/07/25 10:53 fexofenadine HCl (From AdvReac Other Verified 03/07/25 10:53 Jessica) golimumab (From Simponi) AdvReac Other Verified 03/07/25 10:53 hydrocodone AdvReac Vomiting Verified 03/07/25 10:53 hydroxychloroquine sulfate AdvReac Nausea Verified 03/07/25 10:53 (From Plaquenil) levofloxacin (From Levaquin) AdvReac Other Verified 03/07/25 10:53 methotrexate AdvReac Upset Verified 03/07/25 10:53 Stomach Sulfa (Sulfonamide AdvReac Vomiting Verified 03/07/25 10:53 Antibiotics) Family History Mother Myocardial infarction Father Myocardial infarction Cancer Sister H/O Sjogren's disease Surgical History (Updated 03/07/25 @ 10:59 by Xena Hanks) History of esophagogastroduodenoscopy (EGD) History of colonoscopy History of right knee surgery History of cholecystectomy History of arthroscopic knee surgery H/O tubal ligation Total knee replacement status History of appendectomy Social History household members: spouse housing: house pets and animals: Yes Smoking Status: Never smoker alcohol intake: never what type of physical activity do you participate in: none do you feel safe at home: Yes Recommendation Anesthesia Recommendation Anesthesia recommendation: OPTIMIZED for anesthesia
[2025-03-20] VITALS (9 sets, daily range): BP systolic 109–115; BP diastolic 57–75; PULSE 74–84; RESP 16–18; TEMP 36.8–37.1; O2SAT 96–100; BMI 31.2
[2025-03-20] MEDS: Lactated Ringers 1,000 ML 15 ML IV (10:04)
--- NOTE | 2025-03-20 10:27 | PCM.PRE.AN2 ---
ASA Classification* ASA Classification ASA Classification: 2 Assessment & Plan Anesthesia* Anesthesia Assessment Anesthesia Assessment: Discussed sedation and/or anesthesia options, risks, benefits, and alternatives with patient/parents/legal guardian/POA. Questions invited. The patient/parents/legal guardian/POA seems to understand and agrees to proceed with anesthesia plan. Reviewed the physical assessment, medical history, allergy history and patient home medications list prior to surgery/procedure/anesthetic and documented any changes. Performed airway and anesthesia risk assessments. Anesthesia Type Anesthesia Type: General (back up) and MAC (back) History Source History Obtained from:: Patient Anesthesia Focused Assessment* Temperature: 98.7 F Pulse Rate: 79 Blood Pressure: 113/70 Respiratory Rate: 18 Pulse Ox: 100 Oxygen Delivery Method: Room Air Airway Assessment Mouth opens: >3 cm Mallampati Score: II Teeth Condition: Missing (upper and lower molars bilat all fron teeth intact but poor dentition) Neck Range of motion (ROM): Limited ROM Labs Anesthesia Preop lab: CBC WBC, (4.4-11.0) 8.2 K/mm3 03/04/25, 08: RBC, (4.2-5.4) 4.33 M/mm3 03/04/25, 08:01 Hgb, (12.0-15.0) 12.4 g/dL 03/04/25, 08:01 Hct, (37-47) 39.4 % 03/04/25, 08:01 Plt Count, (150-450) 254 K/mm3 03/04/25, 08:01 CHEMISTRY Potassium, (3.3-5.1) 3.9 mmol/L 03/04/25, 08:01 Sodium, (133-145) 139 mmol/L 03/04/25, 08:01 BUN, (4-19) 7 mg/dL 03/04/25, 08:01 Creatinine, (0.70-1.20) 0.78 mg/dL 03/04/25, 08:01 Glucose, (70-99) 67 mg/dL L 03/04/25, 08:01 POC Glucose, (74-106) 98 mg/dL Today, 09:41 TSH, (0.358-3.74) 1.86 uIU/mL 05/28/18, 11:26 COAG PT, (11.7-14.9) 15.5 SECONDS H 06/24/24, 14:50 Pre-Assessment Diagnosis/Proposed Procedure Planned Operative Procedure(s): (N/A) Hysteroscopy,D&C, polypectomy Symphion Anesthesia History Anesthesia History - business analytics intern: Anesthesia History - business analytics intern Hx Hospitalization No 03/07/25 10:59 Any Problems With Anesthesia No 03/07/25 10:59 Cholinesterase deficiency No 03/07/25 10:59 You/Your Family Experience No 03/07/25 10:59 fever (hyperthermia) with Relationship Recent Exposure to Contagious No 03/20/25 09:59 Disease Does patient have nerve No 03/07/25 10:59 stimulator Patient instructed to have device shut off --Does patient have Pacemaker No 03/20/25 09:59 or ICD? When Was Last Pacemaker Check QUESTION #4 FULL TEXT: You/Your Family Experience fever (hyperthermia) with Anesthesia Any additional information?: Yes Any Problems With Anesthesia: Yes (PONV at times) Cholinesterase deficiency: No You/your family experience fever (hyperthermia) with anesthesia: No Last Oral Intake Last Oral intake: Last Oral Intake NPO since 22:00 03/20/25 09:59 Meds taken in AM with sips of Yes 03/20/25 09:59 water? Meds patient instructed to gabapentin, omeprazole 03/20/25 09:59 take am of surgery Any additional information?: Yes NPO since: 07:30 Meds taken in AM with sips of water?: Yes Meds patient instructed to take am of surgery: gabapentin and prilosec PONV PONV - business analytics intern: PONV - business analytics intern Female Yes 03/07/25 10:59 HX of Motion Sickness Yes 03/07/25 10:59 HX of N/V After Surgery No 03/07/25 10:59 Non-Smoker Yes 03/07/25 10:59 Duration of Surgery greater Yes 03/07/25 10:59 than 60 minutes Number of Risk Factors 4 03/07/25 10:59 PONV Score Severe Risk 03/07/25 10:59 Any additional information?: No Height & Weight Height & Weight: Anesthesia: Height & Weight Height 5 ft 5 in 03/20/25 09:59 Weight: 85.1 kg 03/20/25 09:59 Body Mass Index (BMI) 31.2 03/20/25 09:59 Respiratory Assessment Respiratory Assessment - business analytics intern: Respiratory Tract Infection Hx - business analytics intern Hx Respiratory Tract Infection No 03/07/25 10:59 Any additional information?: No STOP Sleep Apnea STOP Sleep Apnea - business analytics intern: STOP Sleep Apnea - business analytics intern Hx Hypertension Yes: PER PT, CONTROLLED ON 03/07/25 10:59 MEDS Hx Sleep Apnea No 03/07/25 10:59 CPAP No 03/07/25 10:59 BIPAP No 03/07/25 10:59 Do you snore loudly (louder Yes 03/07/25 10:59 than talking or can be heard Do you often feel tired/ No 03/07/25 10:59 fatigued/ sleepy during daytime? Has anyone observed you stop No 03/07/25 10:59 breathing during sleep? STOP Results Positive 03/07/25 10:59 QUESTION #5 FULL TEXT : Do you snore loudly (louder than talking or can be heard through closed doors)? Any additional information?: Yes Hx Hypertension: Yes Do you snore loudly (louder than talking or can be heard through closed doors)?: Yes Do you often feel tired/ fatigued/ sleepy during daytime?: Yes Has anyone observed you stop breathing during sleep?: No STOP Results: Positive Patient does not know if they snore loudly while sleeping: No Tobacco Use History Tobacco Use History - business analytics intern: Tobacco Use History - business analytics intern Tobacco Use Smoking Status Never smoker 03/07/25 10:59 Hx Tobacco Use No 03/07/25 10:59 Years Smoking Packs Smoked per Day Smoking Cessation Date was within the last 15 years Hx Smoking Cessation Date Hx Smoking Cessation Counseling Any additional information?: No Hematologic Medial History Hematologic Hx - business analytics intern: Hematologic Medical Hx - marketing development manager Hx of Blood Transfusion No 03/07/25 10:59 Hx of Transfusion in last 3 No 03/07/25 10:59 Months Date of Last Transfusion (if within last 3 months) Ever experience any problems No 03/07/25 10:59 with transfusion(s)? Specify any problems Hx of Preganancy in last 3 No 03/07/25 10:59 Months Nurse Filling Out Transfusion MGRIFFITH 03/07/25 10:59 & Questions: Date: 03/07/25 03/07/25 10:59 Time: 11:01 03/07/25 10:59 Patient unable to answer at this time (ie. confused, unrespo Any additional information?: No /Reproduction History /Reproductive History - business analytics intern: /Reproductive Hx- business analytics intern Hx Now No 03/07/25 10:59 Gestational Age (in weeks): EDC: Hx Hx Para Hx Section SAB No 03/07/25 10:59 Any additional information?: No Active Medications Active Medications: Current Medications Generic Name Dose Route Start Last Admin Trade Name Freq PRN Reason Stop Dose Admin Lactated Ringer's 1,000 mls @ 15 mls/hr 03/20/25 09:30 03/20/25 10:04 IV 15 mls/hr .Q48H STEVE Administration PFSH Medical History (Updated 03/07/25 @ 11:12 by Xena Hanks) History of MRSA infection History of IBS Hypertension MRSA (methicillin resistant staph aureus) culture positive Wears glasses Post-menopausal History of steroid therapy Diabetes Walker as ambulation aid Low iron High cholesterol Back pain Injury of head and neck Migraine headache Heartburn Gastric reflux Non-smoker Leg cramps History of pain when walking History of edema History of stress test History of rheumatic fever Chest pain Bulging discs Glaucoma IBS (irritable bowel syndrome) Fibromyalgia Rheumatoid arthritis Home Medications ?Medication ?Instructions ?Recorded ?Last Taken ?Type atorvastatin 10 mg tablet 10 mg PO QHS cholestorol 05/14/14 08/25/22 History citalopram 40 mg tablet 40 mg PO DAILY anxiety 05/14/14 08/25/22 History latanoprost 0.005 % eye drops 1 drp EACH EYE QHS glaucoma 05/14/14 08/25/22 History prednisone 10 mg tablet 10 mg PO PRN PRN flare up 05/14/14 08/25/22 History sumatriptan succinate 50 mg tablet 50 mg PO .X1 PRN PRN Headache 05/14/14 08/25/22 History promethazine 25 mg rectal 25 mg PO PRN PRN Nausea 12/17/14 08/25/22 History suppository hyoscyamine sulfate 0.125 mg 0.125 mg sublingual Q4H PRN PRN 04/20/16 08/25/22 History sublingual tablet Nausea oxycodone-acetaminophen 7.5 mg-325 1 tab PO TID pain 04/20/16 08/25/22 History mg tablet buspirone 30 mg tablet 30 mg PO BID anxiety 12/20/17 08/25/22 History gabapentin 300 mg capsule 600 mg PO BID 03/25/20 03/20/25 History omeprazole 20 mg capsule,delayed 40 mg PO DAILY 03/25/20 03/20/25 History release upadacitinib 15 mg tablet,extended 15 mg PO DAILY 03/25/20 08/25/22 History release 24 hr (Rinvoq) lisinopril 10 mg tablet 10 mg PO DAILY 08/18/22 08/26/22 History buprenorphine 20 mcg/hour weekly 1 patch topical GARZA 05/01/24 Unknown History transdermal patch ondansetron 4 mg disintegrating 4 mg PO Q8H PRN PRN Nausea #10 tabs 06/24/24 Unknown Rx tablet cinnamon bark 500 mg capsule 500 mg PO DAILY PRN BLOOD SUGAR 03/07/25 Unknown History (Cinnamon) ferrous sulfate 325 mg (65 mg 325 mg PO QODAY 03/07/25 03/18/25 History iron) tablet gabapentin 300 mg capsule 300 mg PO 1600 03/07/25 Unknown History Allergy/AdvReac Type Severity Reaction Status Date / Time adalimumab (From Humira) Allergy Vomiting Verified 03/20/25 09:55 cefaclor (From Ceclor) Allergy Unknown Verified 03/20/25 09:55 celecoxib (From Celebrex) Allergy Itching Verified 03/20/25 09:55 doxepin (Doxepin) Allergy Unknown Verified 03/20/25 09:55 doxycycline calcium (From Allergy Unknown Verified 03/20/25 09:55 Vibramycin) doxycycline hyclate (From Allergy Unknown Verified 03/20/25 09:55 Vibramycin) doxycycline monohydrate Allergy Unknown Verified 03/20/25 09:55 (From Vibramycin) hydrocodone bitartrate (From Allergy ITCHING Verified 03/20/25 09:55 Vicodin) hydroxychloroquine Allergy Shortness Verified 03/20/25 09:55 (Hydroxychloroquine) of breath leflunomide (From Arava) Allergy Other Verified 03/20/25 09:55 prochlorperazine (From Allergy Shortness Verified 03/20/25 09:55 Compazine) of breath prochlorperazine edisylate Allergy Shortness Verified 03/20/25 09:55 (From Compazine) of breath prochlorperazine maleate Allergy Shortness Verified 03/20/25 09:55 (From Compazine) of breath sulfamethoxazole (From Allergy Unknown Verified 03/20/25 09:55 Septra) terfenadine (From Seldane) Allergy Unknown Verified 03/20/25 09:55 trazodone Allergy Other Verified 03/20/25 09:55 trimethoprim (From Septra) Allergy Unknown Verified 03/20/25 09:55 clarithromycin (From Biaxin) AdvReac Vomiting Verified 03/20/25 09:55 colestipol AdvReac Other Verified 03/20/25 09:55 dicyclomine HCl (From Bentyl) AdvReac Nausea/Vom/ Verified 03/20/25 09:55 Diarrhea doxycycline (From Vibramycin) AdvReac Nausea Verified 03/20/25 09:55 fentanyl AdvReac Nausea Verified 03/20/25 09:55 fexofenadine HCl (From AdvReac Other Verified 03/20/25 09:55 Jessica) golimumab (From Simponi) AdvReac Other Verified 03/20/25 09:55 hydrocodone AdvReac Vomiting Verified 03/20/25 09:55 hydroxychloroquine sulfate AdvReac Nausea Verified 03/20/25 09:55 (From Plaquenil) levofloxacin (From Levaquin) AdvReac Other Verified 03/20/25 09:55 methotrexate AdvReac Upset Verified 03/20/25 09:55 Stomach Sulfa (Sulfonamide AdvReac Vomiting Verified 03/20/25 09:55 Antibiotics) Family History Mother Myocardial infarction Father Myocardial infarction Cancer Sister H/O Sjogren's disease Surgical History (Updated 03/07/25 @ 10:59 by Xena Hanks) History of esophagogastroduodenoscopy (EGD) History of colonoscopy History of right knee surgery History of cholecystectomy History of arthroscopic knee surgery H/O tubal ligation Total knee replacement status History of appendectomy Social History household members: spouse housing: house pets and animals: Yes Smoking Status: Never smoker alcohol intake: never what type of physical activity do you participate in: none do you feel safe at home: Yes Review of Systems (Anesthesia) ROS Narrative System reviewed and no additional complaints, except as documented.
[2025-03-20] MEDS: Lactated Ringers 500 ML IV (10:40)
[2025-03-20] MEDS: Midazolam 2 MG/2 ML Syringe IV (10:44)
--- NOTE | 2025-03-20 10:45 | EMB_PTH ---
PATIENT: ZACKERY NUNEZ LOC: [facility] – [place] U#:[id number] AGE/SX: 65/F ROOM: RE03/20/[address]: Dr. Danielle Combs DO : 1960 BED: DIS: 03/20/2025 SPEC #: [id number] RECD: 03/20/25 12:02 STATUS: MOHAN REYina #: [id number] NIKOLAS: 03/20/25 10:[address]: Danielle Combs DEPT: SURGICAL PATHOLOGY RECD BY: Rafy Jacobo ENTERED: 03/20/25 14:37 SP TYPE: ENDOM BX/C OTHR DR: Dr. David Parks MD Tissues: A - Endometrium, NOS Procedures: Surgery Specimen Level IV HEADER OPERATION: Hysteroscopy, D&C, polypectomy PRE-OP DIAGNOSIS: Post menopausal bleeding, endometrial polyp TISSUE SUBMITTED: A- Endometrial curettings and endometrial polyp MICROSCOPIC DIAGNOSIS A. Endometrium, polyp, curettage/polypectomy: * Fragments of benign endocervical mucosa and lower uterine segment. * Fragments of disordered proliferative endometrium with features suggestive of polyp. MICROSCOPIC DESCRIPTION Slides are reviewed. GROSS DESCRIPTION A. Received in formalin labeled with the patient's name and date of . Designated as endometrial curettings and endometrial polyp is a 3.0 x 2.7 x 0.4 cm aggregate of fierro rubbery tissue fragments, mucoid material and pink-red irregular tissue fragments. Entirely submitted in 2 cassettes. MN 03/20/2025 CPT:91177
[2025-03-20] MEDS: fentaNYL 100 MCG/2 ML Ampul IV (10:54)
[2025-03-20] MEDS: Lidocaine 1% /Epi 1:100 (20ml) 20 ML Vial (11:04)
--- NOTE | 2025-03-20 11:14 | DCINST_ITS ---
Discharge Instructions DC O2, CPAP, BIPAP needs Home O2 Discharge instructions: No Dressing / Incision Discharge Activity: May Drive (once you are more than 24 hours out from surgery) and May Shower (once you are more than 24 hours out from surgery) May resume sexual activity in: 1 week (no soaking in water and nothing in the vagina) Ice area for (Minutes): 15 Weight Bearing Status: Weight bearing as tolerated Lifting Restrictions: none Dressing / Incision Call your doctor if you observe: Fever of 101 or Higher, Inability to have a bowel movement, Using more than 1 pad per hour, Shortness of breath, Dizziness, Chest pain, Increased palpitations (irregular heartbeat), Calf discomfort and Uncontrolled pain Cleanse incision/area with: Soap & Water Follow Up Care Please Follow Up With: Danielle Combs DO When: 1 week for follow up Test Results: Test results from this visit will be discussed in further detail at your follow- up appointment, if applicable. Discharge Plan Admission Primary Reason for Your Visit: surgery Attending Provider: Danielle Combs Primary Care Provider: David Parks Instructions Patient Instructions: Dilation and Curettage Print Language: Argentine Discharge Orders/Prescriptions Prescriptions: Continued omeprazole 20 mg capsule,delayed release(DR/EC) 40 mg PO DAILY Patient Comments: TAKE 1 CAPSULE BY MOUTH TWICE DAILY. TAKE WITH NAPROXEN Rinvoq 15 mg tablet extended release 24 hr 15 mg PO DAILY gabapentin 300 mg capsule 600 mg PO BID citalopram 40 MG tablet 40 mg PO DAILY Patient Comments: depression atorvastatin 10 MG tablet 10 mg PO QHS Patient Comments: cholesterol latanoprost 1 DROP bottle 1 drp EACH EYE QHS Patient Comments: glaucoma prednisone 10 MG tablet 10 mg PO PRN PRN (Reason: flare up) Patient Comments: take for 3-5 days RA has not taken for several months Rx Instructions: take for 3-5 days for RA flare sumatriptan succinate 50 MG tablet 50 mg PO .X1 PRN PRN (Reason: Headache) Patient Comments: RA promethazine 25 MG suppository 25 mg PO PRN PRN (Reason: Nausea) Patient Comments: nausea hyoscyamine sulfate 0.125 MG tablet, sublingual 0.125 mg sublingual Q4H PRN PRN (Reason: Nausea) oxycodone-acetaminophen 1 EACH tablet 1 tab PO TID buspirone 30 MG tablet 30 mg PO BID lisinopril 10 mg tablet 10 mg PO DAILY ondansetron 4 mg tablet,disintegrating 4 mg PO Q8H PRN PRN (Reason: Nausea) Qty: 10 0RF gabapentin 300 mg capsule 300 mg PO 1600 ferrous sulfate 325 mg (65 mg iron) tablet 325 mg PO QODAY cinnamon bark [Cinnamon] 500 mg capsule 500 mg PO DAILY PRN (Reason: BLOOD SUGAR) buprenorphine 20 mcg/hour patch weekly 1 patch topical GARZA Referrals / Follow Up: David Parks MD [Primary Care Provider, Medical] Disposition Disposition (needs filled in before D/C Order can be placed): Home, Self Care
--- NOTE | 2025-03-20 11:15 | PCM.OPRPT ---
Operative Report (Standard) Operative Information Date of Procedure: 03/20/25 Pre-Operative Diagnosis: PMB, Endometrial polyp Post-Operative Diagnosis: As above Surgery/Procedure Performed: Hysteroscopy, polypectomy, D&C call center support consultant: No Type of Anesthesia: MAC RN Documented Start/Stop Times: Operation Date: 03/20/25 10:45 Case Time Into Pre-Op 03/20/25 09:24 Out of Pre-Op 03/20/25 10:33 Anesthesia Start 03/20/25 10:40 Into Room 03/20/25 10:40 Procedure Start 03/20/25 10:59 Procedure End 03/20/25 11:09 Procedure Start Time: 10:59 Procedure Stop Time: 11:09 Select all DRAINS/GRAFTS/IMPLANTS that apply: None Special Medications: None Estimated Blood Loss: < 10 mL Fluids Replaced: 350 cc fluid deficit Specimen collected: Yes Description of specimen(s) removed: Endometrial currettings Endometrial polyp Description of surgery: The patient was taken to the operating room where MAC anesthesia was induced and found to be adequate. She was prepped and draped in dorsal lithotomy position using yellowfin stirrups. A weighted speculum was placed in the vagina to expose the cervix. The anterior lip of the cervix was grasped with a single-tooth tenaculum. The cervix was serially dilated to accommodate the Symphion hysteroscope. The Symphion hysteroscope was advanced into the uterus, the uterus was distended with normal saline as distention media. Bilateral tubal ostia were visualized. The endometrium was thin and atrophic appearing. There was 1 endometrial polyp noted along the right uterine wall. The Symphion resection device was used to resect the polyp completely. Once the polyp was resected, the Symphion hysteroscope was removed. A sharp curettage was performed for scant tissue. The endometrial polyp and endometrial curettings were sent to pathology for review. Bleeding was scant. All instruments were removed from the vagina. A vaginal sweep was performed. Instrument and sponge counts were correct. The patient was taken to the recovery in stable condition. Surgical Findings: 1 endometrial polyp noted along the right uterine wall Endometrium thin and atrophic appearing Complications Complications: No Admit VTE Documentation VTE Present on Admission: No VTE Mechan Device Prophylaxis: SCD's
--- NOTE | 2025-03-20 11:25 | PCM.POST.ANE ---
Anesthesia: Postop Eval I Current Vital Signs Temperature: 98.3 F Pulse Rate: 84 Blood Pressure: 109/69 Respiratory Rate: 16 Pulse Ox: 96 Assessment Airway patent: Yes Spontaneous unlabored respirations: Yes Mental status: Awake and Calm nausea: No Vomiting: No Anesthesia Complication: No Fluid Hydration Crystalloid volume administer (ml): 500 Total IV fluid infused: 500 Progress Note Anesthesia document: Postop Eval 1 completed: Yes
--- NOTE | 2025-03-20 15:34 | POSTOPAN2_ITS ---
Anesthesia Postop Eval I Sum Postop Eval Completion status Anesthesia document: Postop Eval 1 completed: Yes Anesthesia Postop Eval I Summary Anesthesia Postop Eval I Summary: Anesthesia Postop Eval I: Assessment Summary Airway patent Yes 03/20/25 11:26 MANAGER [email or web address] Spontaneous unlabored Yes 03/20/25 11:26 MANAGER [email or web address] respirations Mental status Awake,Calm 03/20/25 11:26 MANAGER [email or web address] nausea No 03/20/25 11:26 MANAGER REAL [email or web address].[email or web address] Vomiting No 03/20/25 11:26 MANAGER REAL [email or web address] Anesthesia Postop Eval I: Fluid Summary Crystalloid volume administer 500 03/20/25 11:26 MANAGER REAL [email or web address].[email or web address] (ml) Colloids volume administered ( ml) Blood Product volume administered (ml) Total IV fluid infused 500 03/20/25 11:26 MANAGER REAL [email or web address] Anesthesia Postop Eval I: Summary Notes Anesthesia Complication No 03/20/25 11:26 MANAGER REAL [email or web address] Anesthesia Complication Comment: Post-operative progress note Anesthesia: Postop Eval II Evaluation Mental status: Awake and Calm Pain Level: 0 nausea: No Vomiting: No Complications Anesthesia Complication: No
--- NOTE | 2025-03-20 15:34 | PCM.POSTANE2 ---
Anesthesia Postop Eval I Sum Postop Eval Completion status Anesthesia document: Postop Eval 1 completed: Yes Anesthesia Postop Eval I Summary Anesthesia Postop Eval I Summary: Anesthesia Postop Eval I: Assessment Summary Airway patent Yes 03/20/25 11:26 LEAD [email or web address] Spontaneous unlabored Yes 03/20/25 11:26 LEAD [email or web address] respirations Mental status Awake,Calm 03/20/25 11:26 LEAD [email or web address] nausea No 03/20/25 11:26 LEAD [email or web address].GDOTT Vomiting No 03/20/25 11:26 LEAD [email or web address] Anesthesia Postop Eval I: Fluid Summary Crystalloid volume administer 500 03/20/25 11:26 LEAD [email or web address].GDOTT (ml) Colloids volume administered ( ml) Blood Product volume administered (ml) Total IV fluid infused 500 03/20/25 11:26 LEAD [email or web address].GDOTT Anesthesia Postop Eval I: Summary Notes Anesthesia Complication No 03/20/25 11:26 LEAD [email or web address].GDOTT Anesthesia Complication Comment: Post-operative progress note Anesthesia: Postop Eval II Evaluation Mental status: Awake and Calm Pain Level: 0 nausea: No Vomiting: No Complications Anesthesia Complication: No
== END 2025-03-20 12:31 | disposition home or self-care (01) ==
LOC: SDC 09:12 → AC 09:13
PROVIDERS: PCP Family Medicine; Referring Provider Obstetrics & Gynecology; Visit Provider Obstetrics & Gynecology
PROC: 0UB98ZZ Excision of Uterus, Via Natural or Artificial Opening Endoscopic (ICD-10-PCS; CPT 58558; principal; 2025-03-20 10:30)
DX: N84.0 Polyp of corpus uteri (principal); E11.22 Type 2 diabetes mellitus with diabetic chronic kidney disease; N18.30 Chronic kidney disease, stage 3 unspecified; I12.9 Hypertensive chronic kidney disease with stage 1 through stage 4 chronic kidney disease, or unspecified chronic kidney disease; E78.00 Pure hypercholesterolemia, unspecified; Z79.899 Other long term (current) drug therapy; N95.0 Postmenopausal bleeding
CPT/HCPCS: 58558; 00952; 82962; 86850; 86900; 86901; 88305; J2405

== ENCOUNTER → 2025-06-23 | Outpatient (CLI) | payer MEDICARE, SELFPAY ==
[2025-06-23 10:42] LABS: Hematocrit 37.4 % (37-47); Hemoglobin 12.0 g/dL (12.0-15.0); Immature Granulocytes Count 0.030 X10^3/uL (0.0-0.0); Mean Corp Hgb Conc 32.1 g/dL (32-36); Mean Corpuscular Volume 91.9 fL (81-99); Mean Platelet Vol. 11.9 fl (6.2-12.0); NRBC Flagged by Analyzer 0 % (0-5); Platelet Count 302 K/mm3 (150-450); RBC Distribution Width CV 14.6 % (11.6-14.6); RBC Distribution Width SD 49.1 fl (35.1-43.9); Red Blood Count 4.07 M/mm3 (4.2-5.4); White Blood Count 10.3 K/mm3 (4.4-11.0)
[2025-06-23 10:54] LABS: AST(SGOT) 16 U/L (<=31); Alanine Aminotransfer ALT/SGPT 9 U/L (<=34); Albumin, Serum 3.7 g/dL (3.4-4.8); Alkaline Phosphatase 68 U/L (35-104); Anion Gap 9 (7-18); BUN 10 mg/dL (4-19); BUN/Creat Ratio 10.4 RATIO (10-20); Calcium,Total 8.6 mg/dL (7.6-11.0); Carbon Dioxide 24.1 mmol/L (20.0-29.0); Chloride 104 mmol/L (96-106); Globulin 2.4 g/dL (2.2-4.2); Glucose 75 mg/dL (70-99); Potassium 4.7 mmol/L (3.5-5.1)
== END | disposition home or self-care (01) ==
LOC: MTLAB 08:01
PROVIDERS: PCP Family Medicine; Referring Provider Internal Medicine Rheumatology; Visit Provider Internal Medicine Rheumatology
DX: M06.012 Rheumatoid arthritis without rheumatoid factor, left shoulder (principal); Z79.899 Other long term (current) drug therapy; M79.7 Fibromyalgia
CPT/HCPCS: 36415; 80053; 85025